=== PATIENT | male | born 1950 | race Caucasian/White ===

== ENCOUNTER 2019-11-01 09:38 | Emergency (ER) | payer OTHER ==
--- OUTSIDE RECORDS SUMMARY | 2019-11-01 10:05 | XMS REPORT | Continuity of Care Document ---
:1950 Author Organization [employer] Care Team Providers Name Role Phone [employer] Unavailable Un available Problems Problem Status Onset Classification Date Comments Sourc e Date Reported FOLLOW UP Active [facility] SPECIALIST 9 ABI FRANCHESCA Active [facility] 9 PARAPLEGIA, Active [facility] UNSPECIFIED Medications No Data Provided for This Section Allergies, Adverse Reactions, Alerts No Known Medication Allergies Immunizations No Data Provided for This Section Results No Data Provided for This Section Pathology Reports No Data Provided for This Section Diagnostic Reports No Data Provided for This Section Consultation Notes No Data Provided for This Section Discharge Summaries No Data Provided for This Section History and Physicals No Data Provided for This Section Vital Signs Vital Sign Value Date Comments Source Systolic (mm Hg) 94 10/20/2018 [facility] Diastolic (mm Hg) 65 10/20/2018 [facility] Weight 90.455 10/20/2018 [facility] Height 175.26 cm 09/07/2018 [facility] Encounters Location Location Encounter Encounter Reason Attending ADM DC Stat Source Details Type Number For Provider Date Date Visit [facility] Rec[facility]ring [id number] [facility] 09/07 10/07 [facility] Rec[facility]ring [id number] [facility] 10/20 11/19 M [facility] Procedures No Data Provided for This Section Assessment and Plan No Data Provided for This Section Plan of Care No Data Provided for This Section Social History Social History Date Source No data available for this 11/19/2018 [facility] section Family History No Data Provided for This Section Advance Directives No Data Provided for This Section Functional Status No Data Provided for This Section
[2019-11-01 10:34] LABS: Absolute Lymphocytes (CBC) 3.7 K/uL (0.7-4.9); Basophils % 0.3 % (0-1.3); Hematocrit 36.1 % (39.6-49.0); Lymphocytes % 35.2 % (15.3-44.8); RBC Red Blood Cell Count 3.84 M/uL (4.33-5.43)
[2019-11-01 10:38] LABS: Protime INR 0.97
--- NOTE | 2019-11-01 10:42 | RAD REPORT ---
EXAM DESCRIPTION: CT - Stone Protocol - 11/01/2019 10:30 am CLINICAL HISTORY: HEMATURIA COMPARISON: Abdomen Pelvis W/Wo Contrast dated 01/13/2018 TECHNIQUE: Axial 5 mm thick images were obtained without oral or IV contrast. The [id number] span s the entirety of the system including uppermost abdomen and lung bases. All CT scans are performed using dose optimization technique as appropriate and may include automated exposure control or mA/KV adjustment according to patient size. FINDINGS: Moderate severity dilatation of the pelvis and calices of each kidney noted. There is mode rate severity hydroureter. Ureters are quite tortuous. Dilatation extends down to each UVJ. There is no obstructing calculus. Hemorrhagic byproducts are seen within the lumen of the urinary bladder. The re is significant wall thickening along the posterior bladder base and left side of the bladder wall. No bladder calculus. Several phleboliths are seen along the pelvic floor. No suspicious renal masses . Isodense masses and pyelonephritis are not excluded on a stone protocol CT scan. Small bilateral ad renal masses are present stable from 2018. These have fat attenuation values consistent with incident al adenoma. Imaged portions of the liver, spleen and pancreas show no suspicious findings on non-contrast imaging . No gallbladder or biliary tree abnormality identified. No suspicious bowel findings. No hernia or bulky lymphadenopathy. No free air, free fluid or inflammatory stranding. Disc and bony degenerative changes are present. Hip joint degenerative changes are seen. IMPRESSION: Significant urinary bladder wall thickening present along the left lateral and posterior base. Bladder wall mass or thickening involves each UVJ. Patient has moderate severity hydronephrosis of ea ch collecting system. Hyperdense material within the lumen of the bladder indicates ongoing bleeding. Isodense masses and pyelonephritis are not excluded on stone protocol technique.
[2019-11-01 10:55] LABS: Albumin 3.3 g/dL (3.4-5.0); Bilirubin Direct 0.1 mg/dL (0-0.2); Bilirubin Total 0.6 mg/dL (0.2-1.0); Potassium 3.6 mmol/L (3.5-5.1); Protein, Total 6.9 g/dL (6.4-8.2)
[2019-11-01 11:25] LABS: Urine Appearance CLOUDY; Urine Blood 3+ (NEG); Urine Color RED; Urine Glucose NEGATIVE (NEG); Urine Protein 3+ (NEG); Urine Specific Gravity 1.015 (1.005-1.030); Urine Urobilinogen 0.2 mg/dL (0.2-1.0)
[2019-11-01 11:51] LABS: Urine Bilirubin NEGATIVE (NEG)
[2019-11-01 12:00] LABS: Urine Bacteria <20 /HPF (NONE SEEN); Urine Culture Reflex Order NOT NEEDED; Urine RBC TNTC /HPF (NONE SEEN)
--- NOTE | 2019-11-01 13:57 | EDPHYS ---
Physician Documentation [facility] Name: Mary Bullock Age: 69 yrs Sex: Male : 1950 Arrival Date: 11/01/2019 Time: 09:40 Bed 5 Private MD: Franky Peralta F ED Physician Sander Page HPI: 10/31 10:06 This 69 yrs old Male presents to ER via Unassigned with complaints of Blood rn In Urine. 10:06 The patient presents with urinary symptoms, hematuria. Onset: The symptoms/episode rn began/occurred this morning. Modifying factors: The symptoms are alleviated by nothing, the symptoms are aggravated by urinating. Severity of symptoms: At their worst the symptoms were mild, in the emergency department the symptoms are unchanged. The patient has not experienced similar symptoms in the past. Reports woke up today to use bathroom, urinating blood, able to urinate, no fever, + mild suprapubic pressure, no trauma, never happened before. . Historical: - Allergies: 09:50 PENICILLINS; aa5 - Home Meds: 09:50 propranolol 40 mg oral tab [Active]; hydrochlorothiazide 12.5 mg Oral cap [Active]; aa5 lisinopril 20 mg Oral tab [Active]; finasteride 5 mg oral tab 1 tab [Active]; tamsulosin 0.4 mg oral cp24 [Active]; oxybutynin chloride 10 mg oral tr24 [Active]; - PMHx: 09:50 Hypertension; Overactive bladder; Paraplegic; aa5 - Immunization history:: Adult Immunizations unknown. - Social history:: Smoking status: Patient reports the use of cigarette tobacco products, cigars. - Family history:: not pertinent. - Hospitalizations: : No recent hospitalization is reported. ROS: 10:06 Constitutional: Negative for fever, chills, and weight loss, Eyes: Negative for injury, rn pain, redness, and discharge, Neck: Negative for injury, pain, and swelling, Cardiovascular: Negative for chest pain, palpitations, and edema, Respiratory: Negative for shortness of breath, cough, wheezing, and pleuritic chest pain, Abdomen/GI: Negative for nausea, vomiting, diarrhea, and constipation, MS/Extremity: Negative for injury and deformity, Skin: Negative for injury, rash, and discoloration, Neuro: Negative for headache, weakness, numbness, tingling, and seizure. Exam: 10:06 Constitutional: This is a well developed, well nourished patient who is awake, alert, rn and in no acute distress. Head/Face: Normocephalic, atraumatic. Cardiovascular: Regular rate and rhythm. No pulse deficits. Respiratory: No increased work of breathing, no retractions or nasal flaring. Abdomen/GI: Soft, mild suprapubic tenderness, no masses or swelling. Skin: Warm, dry MS/ Extremity: Pulses equal, no cyanosis. Neuro: Awake and alert, GCS 15, oriented to person, place, time, and situation. Vital Signs: 09:50 BP 181 / 69; Pulse 65; Resp 18 S; Temp 98.6(O); Pulse Ox 100% on R/A; aa5 10:55 BP 165 / 116; Pulse 63; Resp 17; Pulse Ox 100% ; bp 12:00 BP 182 / 91; Pulse 62; Resp 18; Pulse Ox 99% ; bp 13:30 BP 164 / 83; Pulse 68; Resp 17; Pulse Ox 100% ; bp 15:00 BP 161 / 82; Pulse 61; Resp 17; Temp 98.5; Pulse Ox 98% ; bp 16:00 BP 162 / 67; Pulse 64; Resp 17; Temp 98.5; Pulse Ox 99% ; bp 17:58 BP 160 / 83; Pulse 62; Resp 16; Temp 98.5; Pulse Ox 98% ; bp MDM: 09:52 Patient medically screened. rn 10:54 Differential diagnosis: UTI, urinary retention, urethritis, bladder cancer, kidney rn stone, kidney cancer. Data reviewed: vital signs, nurses notes, lab test result(s), radiologic studies. ED course: Bladder scanner for post-void residual performed due to patient only able to produce a few drops of urine and discomfort, showed > 400cc urine in bladder. Doyle placed, + gross hematuria, will irrigate and see response.. 12:35 ED course: Gross hematuria with doyle placement, awaiting irrigation to be completed rn for reassessment. . 13:55 Counseling: I had a detailed discussion with the patient and/or guardian regarding: the rn historical points, exam findings, and any diagnostic results supporting the discharge/admit diagnosis, lab results, radiology results, the need to transfer to another facility. ED course: Hematuria did not clear with irrigation, stable vitals, no urology here, will have to transfer, most likely bladder cancer. . 10/31 09:58 Order name: Basic Metabolic Panel; Complete Time: 11:23 10/31 09:58 Order name: CBC with Diff; Complete Time: 10:45 10/31 09:58 Order name: Hepatic Function; Complete Time: 11:23 rn 10/31 09:58 Order name: Lipase; Complete Time: 11:23 rn 10/31 09:59 Order name: Urine Culture rn 10/31 09:58 Order name: IV Saline Lock; Complete Time: 10:27 rn 10/31 09:59 Order name: Labs collected and sent; Complete Time: 10:27 10/31 09:59 Order name: CT Stone Protocol; Complete Time: 10:45 10/31 09:59 Order name: Protime (+inr); Complete Time: 10:45 10/31 09:59 Order name: Ptt, Activated; Complete Time: 10:45 10/31 11:16 Order name: Urinalysis W/Microscopic; Complete Time: 12:29 [facility] 10/31 10:46 Order name: Doyle-Hematuria; Complete Time: 10:52 rn Administered Medications: No medications were administered Disposition: 11/01/19 13:[address] [facility]. Diagnosis are Hematuria, unspecified, Retention of urine, unspecified, Acute kidney failure. - Reason for transfer: Higher level of care. - Accepting physician is Dr.. - Condition is Stable. - Problem is new. - Symptoms are unchanged. Signatures: Dispatcher [employer] EDMS Sander Page MD MD rn Calderon, Audri, RN RN aa5 Brayan Dexter RN RN bp Corrections: (The following items were deleted from the chart) 10:54 09:59 Urine Dipstick-Ancillary ordered. rn bp 11:16 09:59 UA MICROSCOPIC+U.LAB.BRZ ordered. EDOH EDMS 11:16 10:54 URINALYSIS+U.LAB.BRZ ordered. EDOH EDMS 18:00 13:56 11/01/2019 13:[address] [facility]. bp Diagnosis is Hematuria, unspecified; Retention of urine, unspecified; Acute kidney failure. Reason for transfer: Higher level of care. Accepting physician is . Condition is Stable. Problem is new. Symptoms are unchanged. rn
--- NOTE | 2019-11-01 13:57 | ER ---
Nurse's Notes [facility] Name: Mary Bullock Age: 69 yrs Sex: Male : 1950 Arrival Date: 11/01/2019 Time: 09:40 Bed 5 Private MD: Franky Peralta F Diagnosis: Hematuria, unspecified;Retention of urine, unspecified;Acute kidney failure Presentation: 10/31 09:50 Chief complaint: Patient states: hematuria and pain with urination that began today aa5 around 0300. Pt denies back pain, denies abd pain. 09:50 Coronavirus screen: Client denies travel out of the [place] in the last 14 days. At this aa5 time, the client does not indicate any symptoms associated with coronavirus-19. Ebola Screen: Patient negative for fever greater than or equal to 101.5 degrees Fahrenheit, and additional compatible Ebola Virus Disease symptoms. Initial Sepsis Screen: Does the patient meet any 2 criteria? No. Patient's initial sepsis screen is negative. Does the patient have a suspected source of infection? No. Patient's initial sepsis screen is negative. Risk Assessment: Do you want to hurt yourself or someone else? Patient reports no desire to harm self or others. Onset of symptoms was November 01, 2019. 09:50 Acuity: FERNANDA 3 aa5 09:50 Method Of Arrival: Ambulatory aa5 Triage Assessment: 09:50 General: Appears in no apparent distress. uncomfortable, Behavior is cooperative, bp appropriate for age, anxious. 09:50 Pain: Denies pain. EENT: No deficits noted. Neuro: No deficits noted. Cardiovascular: bp No deficits noted. Respiratory: No deficits noted. GI: No signs and/or symptoms were reported involving the gastrointestinal system. : Reports HEMATURIA. Derm: No deficits noted. Musculoskeletal: No deficits noted. Historical: - Allergies: 09:50 PENICILLINS; aa5 - Home Meds: 09:50 propranolol 40 mg oral tab [Active]; hydrochlorothiazide 12.5 mg Oral cap [Active]; aa5 lisinopril 20 mg Oral tab [Active]; finasteride 5 mg oral tab 1 tab [Active]; tamsulosin 0.4 mg oral cp24 [Active]; oxybutynin chloride 10 mg oral tr24 [Active]; - PMHx: 09:50 Hypertension; Overactive bladder; Paraplegic; aa5 - Immunization history:: Adult Immunizations unknown. - Social history:: Smoking status: Patient reports the use of cigarette tobacco products, cigars. - Family history:: not pertinent. - Hospitalizations: : No recent hospitalization is reported. Screenin:00 Abuse screen: Denies threats or abuse. Denies injuries from another. Nutritional bp screening: No deficits noted. Tuberculosis screening: No symptoms or risk factors identified. Fall Risk None identified. Assessment: 09:50 General: SEE TRIAGE NOTE. bp 10:22 Reassessment: PT TO CT. bp 10:45 : 3-way catheter in place to gravity drainage Urine is shirlene blood. bp 12:00 Reassessment: BLADDER IRRIGATED WITH 500 CC NS, REMAINS STRONGLY BLOOD TINGED. bp 14:00 Reassessment: TRANSFER INITIATED. bp 16:08 Reassessment: REPORT TO JOSSE BRODY AT [facility] FOR RM [id number]. TRANSPORT PENDING. bp 17:56 Reassessment: EMS AT B/S FOR TRANSPORT. bp Vital Signs: 09:50 BP 181 / 69; Pulse 65; Resp 18 S; Temp 98.6(O); Pulse Ox 100% on R/A; aa5 10:55 BP 165 / 116; Pulse 63; Resp 17; Pulse Ox 100% ; bp 12:00 BP 182 / 91; Pulse 62; Resp 18; Pulse Ox 99% ; bp 13:30 BP 164 / 83; Pulse 68; Resp 17; Pulse Ox 100% ; bp 15:00 BP 161 / 82; Pulse 61; Resp 17; Temp 98.5; Pulse Ox 98% ; bp 16:00 BP 162 / 67; Pulse 64; Resp 17; Temp 98.5; Pulse Ox 99% ; bp 17:58 BP 160 / 83; Pulse 62; Resp 16; Temp 98.5; Pulse Ox 98% ; bp ED Course: 09:40 Patient arrived in ED. ag5 09:40 Franky Peralta MD is Private Physician. ag5 09:50 Arm band placed on Patient placed in an exam room, on a stretcher. aa5 09:51 Brayan Dexter, RONN is Primary Nurse. bp 09:52 Sander Page MD is Attending Physician. rn 10:00 Patient has correct armband on for positive identification. Bed in low position. Call bp light in reach. Side rails up X2. 10:21 Triage completed. 5 10:26 Protime (+inr) Sent. [facility] 10:27 Ptt, Activated Sent. [facility] 10:27 Basic Metabolic Panel Sent. 5 10:27 CBC with Diff Sent. [facility] 10:27 Hepatic Function Sent. [facility] 10:27 Lipase Sent. [facility] 10:27 Initial lab(s) drawn, by ok, sent to lab. Inserted saline lock: 20 gauge in right [facility] antecubital area, using aseptic technique. Blood collected. 10:28 Placed in gown. Warm blanket given. Pulse ox on. NIBP on. [facility] 10:30 CT Stone Protocol In Process Unspecified. EDMS 10:45 3-way catheter inserted, using sterile technique, 22 Fr. 24 Fr. Specimen obtained. bp 11:16 Urine Culture Sent. [facility] 11:59 pt daughter--[phone]. bd 16:00 No provider procedures requiring assistance completed. Patient transferred, IV remains bp in place. Administered Medications: No medications were administered Output: 16:52 Urine: 1300ml (Lozada); Total: 1300ml. bp Outcome: 13:56 ER care complete, transfer ordered by . rn 16:17 Transferred by ground EMS to [facility], Transfer form completed. bp 16:17 Condition: stable 16:17 Instructed on the need for transfer. 18:00 Patient left the ED. bp Signatures: Dispatcher [employer] EDMS Davida Sterling Roman, MD MD rn Calderon, Audri, RN RN 5 Rowan Koenig [facility] Brayan Dexter RN RN bp Eduarda Kim 5 Corrections: (The following items were deleted from the chart) 16:14 16:08 Reassessment: REPORT TO AT [facility] FOR RM 1662. TRANSPORT PENDING bp bp 17:59 16:17 Transferred by ground EMS to [facility], to [facility], bp 17:59 16:17 Discharge instructions given to Instructed on the need for transfer, bp bp
[2019-11-06 14:11] VITALS: TEMP 98.5
[2019-11-06 14:14] VITALS: BP 160/83; O2SAT 98
== END 2019-11-01 18:00 | disposition short-term general hospital (02) ==
LOC: ER 09:38
DX: R33.9 Retention of urine, unspecified (principal); N17.9 Acute kidney failure, unspecified; F17.290 Nicotine dependence, other tobacco product, uncomplicated; I10 Essential (primary) hypertension; Z88.0 Allergy status to penicillin
CPT/HCPCS: 36415; 74176; 76377; 80048; 80076; 81001; 83690; 85025; 85610; 85730; 87086; 87088; 99285

== ENCOUNTER 2021-06-15 01:29 | Emergency (ER) | payer OTHER ==
[2021-06-15 02:31] LABS: Absolute Lymphocytes (CBC) 1.7 K/uL (0.7-4.9); Hematocrit 35.1 % (39.6-49.0); Lymphocytes % 12.1 % (15.3-44.8); RBC Red Blood Cell Count 3.74 M/uL (4.33-5.43)
[2021-06-15 02:50] LABS: Bilirubin Total 0.2 mg/dL (0.2-1.0); Potassium 4.8 mmol/L (3.5-5.1); Protein, Total 7.6 g/dL (6.4-8.2)
[2021-06-15] MEDS ORDERED: MORPHINE 4 MG/ML SYR ONE (03:09)
--- OUTSIDE RECORDS SUMMARY | 2021-06-15 03:11 | XMS REPORT | Clinical Summary ---
:1950 Author Organization [facility] MD [place] [facility] Address [address] [place] [address] Care Team Providers Name Role Phone Reece Joseph MD Unavailable Franky Peralta MD Unavailable MD Jaelyn Primary Care Provider Allergies Active Allergy Reactions Severity Noted Date Comments Penicillins Anaphylaxis High 12/04/2019 Previously tolhoang rated ceftriaxone and meropenem. Medications Medication Sig Dispensed Refills Start Date End Date Status tamsulosin (FLOMAX) Take 0.4 mg by 0 09/06/2019 Active 0.4 mg 24 hr capsule mouth daily. Urinary flow multivitamin capsule Take 1 capsule by 0 Active mouth daily. Vitamin Supplement. polyethylene glycol Take 17 g by mouth 0 04/12/2020 Active (MIRALAX) 17 g daily. packetIndications: Constipation. Personal history of Available over the malignant neoplasm of counter. Hold bladder for diarrhea/loose stools. Additional Information Patient not taking. Reason: Other (patient using align instead.), Reported on 04/28/2021 lidocaine-prilocaine (EMLA) APPLY TO PORT-A-CATH 30 g 0 0 05/04/2020 Active 2.5-2.5% creamIndications: AREA 30 TO 45 MINUTES Encounter for adjustment and PRIOR TO PORT ACCESS management of vascular access DIRECTED (TOPICAL device ANESTHETIC). Bifidobacterium infantis Take 1 capsule by 0 Active (Align) 4 mg cap mouth daily. propranoloL (INDERAL) 60 mg TAKE 1 TABLET BY MOUTH 180 tablet 1 03/27/2021 Active tabletIndications: TWICE A DAY EVERY DAY Poliomyelomalacia TO PREVENT TREMORS HOLD IF SYSTOLIC BP LESS THAAN 110 acetaminophen (TYLENOL) 500 mg Take 500 mg by mouth. 0 Active tablet Takes two tablets every 6 hours as needed for pain. gabapentin (NEURONTIN) 300 mg Take 1 capsule (300 60 capsule 3 05/05/2021 Active capsuleIndications: mg) by mouth twice Neuropathy, not otherwise daily. specified mirtazapine (REMERON) 15 mg Take 1 tablet (15 mg) 30 tablet 2 05/05/2021 Active tabletIndications: Insomnia by mouth at bedtime. due to medical condition metoclopramide (Reglan) 5 mg Take 1 tablet (5 mg) 90 tablet 0 05/05/2021 Active tabletIndications: Early by mouth 3 (three) satiety times a day before meals. Additional Information Patient taking differently: 5 mg oral 3 times daily before meals, Taking differently only once a day., Reason: Other (patient taking differently.), Reported on 06/10/2021 senna (senna) 8.6 mg Take 2 tablets by 0 Active tablet mouth twice daily. HYDROcodone-acetamino Take 1 tablet by 60 tablet 0 06/12/ Active phen (NORCO) 10 mouth every 6 (six) 2021 mg-325 mg per hours as needed for tabletIndications: moderate pain or Cancer associated severe pain. pain, Neuropathy, not otherwise specified acetaminophen Take 325 mg by mouth 0 08/27 / Discontinued (Stop (TYLENOL) 325 mg every 6 (six) hours Taking at tablet as needed for mild D ischarge) pain. Take temperature PRIOR to each dose. Maximum daily dose = 4 grams/24 hours. melatonin 10 mg TbER Take 10 mg by mouth 0 07/16/ Discontinued as needed. Insomnia 2020 (Therapy / Sleep. completed) propranolol (INDERAL) Take 1 tablet (60 mg) 90 tablet 2 02/06/ 08/07/ Discontinued (Stop 60 mg by mouth 3 (three) 2019 2020 T aking at tabletIndications: times a day. To Discharge) Hypertension, Tremor prevent tremors. Hold for systolic blood pressure less than 110 or heart rate less than 55 magic mouthwash Swish and swallow 10 480 mL 0 02/14/ / Discontinued (sucralfate/maalox/di mL 4 (four) times a 2019 2020 phenhydramine) day as needed for (AMB-CMPD)Indications mouth pain. : Ulcerative oral mucositis due to antineoplastic therapy senna-docusate Take 1 tablet by 0 04/12/ 07/23/ Discontinued (SENOKOT-S) 8.6 mg-50 mouth 2 (two) times a 2020 2020 (Reorder) mg tabletIndications: day as needed for Personal history of constipation. malignant neoplasm of Available over the bladder counter. Hold for diarrhea/loose stools. potassium phosphate, Take 1 tablet (500 10 tablet 0 04/12/ 08/07/ Discontinued (Stop monobasic, (K-Phos mg) by mouth twice 2020 Taking at Original) 500 mg daily. Potassium / Discharge) tabletIndications: Phosphorus Personal history of Supplement. Take for malignant neoplasm of the next 5 days. bladder gabapentin TAKE 1 CAPSULE BY 30 capsule 1 04/30/ 06/18/ Discontinued (NEURONTIN) 300 mg MOUTH AT BEDTIME 2020 2020 (Reorder) capsuleIndications: Neuropathy, not otherwise specified gabapentin Take 1 capsule (300 60 capsule 2 06/18/ 07/23/ Discontinued (NEURONTIN) 300 mg mg) by mouth twice 2020 (Reorder) capsuleIndications: daily. Neuropathy, not otherwise specified gabapentin Take 1 capsule (300 90 capsule 2 01/06/ Discontinued (NEURONTIN) 300 mg mg) by mouth 3 2020 2020 (Reorder) capsuleIndications: (three) times a day. Neuropathy, not otherwise specified HYDROcodone-acetamino Take 1 tablet by 75 tablet 0 07/23/ 0 09/17/ Discontinued phen ([place]) 5 mg-325 mouth every 6 (six) 2020 2020 mg per hours as needed for tabletIndications: moderate pain or Neoplasm related pain severe pain. (acute) (chronic) senna-docusate Take 1 tablet by 0 07/23/ 07/23/ Discontinued (SENOKOT-S) 8.6 mg-50 mouth 2 (two) times a 2020 2020 mg tabletIndications: day as needed for Personal history of constipation. malignant neoplasm of Available over the bladder counter. Hold for diarrhea/loose stools. mirtazapine (REMERON) Take 1 tablet (7.5 30 tablet 0 07/23/ 06/30/ Discontinued 7.5 mg mg) by mouth at 2020 2020 (Reo rder) tabletIndications: bedtime. Insomnia due to medical condition metoclopramide Take 1 tablet (10 mg) 120 tablet 0 07/23/ / Discontinued (REGLAN) 10 mg by mouth 4 (four) 2020 2020 tabletIndications: times a day before Anorexia meals and nightly. senna-docusate Take 2 tablets by 120 tablet 1 08/30/ Discontinued (SENOKOT-S) 8.6 mg-50 mouth twice daily. 2020 2020 (Therapy mg tabletIndications: Available over the completed) Personal history of counter. Hold for malignant neoplasm of diarrhea/loose bladder stools. propranoloL (INDERAL) TAKE 1 TABLET BY 270 tablet 1 08/27/ Discontinued (Stop 60 mg MOUTH THREE TIMES A 2020 2020 Taking at tabletIndications: DAY TO PREVENT Discharge) Hypertension, Tremor TREMORS HOLD FOR SYTOLIC BLOOD PRESSURE LESS THAN 110 OR HEART REAT LESS THAN 55 levoFLOXacin Take 1 tablet (500 5 tablet 0 08/27/ Discontinued (Stop (LEVAQUIN) 500 mg mg) by mouth daily. 2020 Taking at tabletIndications: Avoid administration Discharge) Fever with antacids, sucralfate, and medications containing iron, zinc, calcium or magnesium. propranoloL (INDERAL) Take 1 tablet (60 mg) 60 tablet 3 03/27/ Discontinued 60 mg by mouth twice daily. 2020 2021 tabletIndications: To prevent tremors. essential tremor Hold for systolic blood pressure less than 110 and/or heart rate less than 60. metoclopramide TAKE 1 TABLET (10 MG) 120 tablet 0 / Discontinued (REGLAN) 10 mg BY MOUTH 4 (FOUR) 2020 2020 (Therapy tabletIndications: TIMES A DAY BEFORE completed) Anorexia MEALS AND NIGHTLY. ciprofloxacin HCl Take 1 tablet (750 14 tablet 0 / Discontinued (CIPRO) 750 mg mg) by mouth twice 2020 2020 tabletIndications: daily. Stop date: Fever of unknown 09/03/20. origin (FUO) sulfamethoxazole-trim Take 2 tablets by 28 tablet 0 09/17/ Discontinued ethoprim (BACTRIM DS) mouth twice daily. 2020 2020 800 mg-160 mg per Stop date: 09/03/20. tabletIndications: Fever of unknown origin (FUO) lidocaine-vit E-aloe Apply 1 cm topically 85 g 0 08/30/ 12/05/ Discontinued vera-colg ([facility]enecare 3 (three) times a 2020 2020 with Aloe) 2 % day. gelIndications: Localized skin eruption due to drug taken internally sodium polystyrene Take 60 mL (15 g) by 60 mL 0 09/03/ 09/03/ sulf-sorbtl (SPS, mouth once for 1 2020 2020 with sorbitol,) 15-20 dose. 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 Insomnia due to medical condition triamcinolone Apply topically to 30 g 0 09/04/ 12/05/ Discontinued (KENALOG) ointment affected area(s) 3 2020 0.1%Indications: (three) times a day. Primary urothelial To apply over palms carcinoma of overlapping lesion of urinary organ OLANZapine (ZyPREXA) Take 1 tablet (5 mg) 30 tablet 0 12/05/ 01/04/ 5 mg by mouth nightly as 2020 2020 tabletIndications: needed for anxiety or Insomnia due to sleep for up to 30 medical condition, days. 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 2020 gabapentin Take 1 capsule (300 60 capsule 3 01/06/ 05/05/ Discontinued (NEURONTIN) 300 mg mg) by mouth twice 2020 20 (Reorder) capsuleIndications: daily. Neuropathy, not otherwise specified mirtazapine (REMERON) Take 1 tablet (7.5 30 tablet 3 01/06/ // Discontinued 7.5 mg mg) by mouth at 2020 2021 (Reo rder) tabletIndications: bedtime. Insomnia due to medical condition HYDROcodone-acetamino Take 1 tablet by 60 tablet 0 03/04/ 0 05/05/ Discontinued phen (NORCO) 5 mg-325 mouth every 6 (six) 2020 2021 mg per hours as needed for tabletIndications: moderate pain or Chronic pain due to severe pain. malignant neoplastic disease mirtazapine (REMERON) Take 1 tablet (15 mg) 30 tablet 2 03/10/ 05/05/ Discontinued 15 mg by mouth at bedtime. 2021 2021 (Reorder) tabletIndications: Insomnia due to medical condition HYDROcodone-acetamino Take 1 tablet by 120 tablet 0 05/05/ // Discontinued phen (NORCO) 10 mouth every 6 (six) 2021 2021 (Reorder) mg-325 mg per hours as needed for tabletIndications: moderate pain or Cancer associated severe pain. 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 12/19/2019 Encounter for antineoplastic chemo 12/19/2019 Anemia in neoplastic disease 12/19/2019 Paraplegia 12/05/2019 Personal history of malignant neoplasm of bladder 11/07 Essential hypertension 11/01/2019 Benign prostatic hyperplasia 11/01/2019 H/O: poliomyelitis 11/01/2019 Sleep apnea 03/08/1999 Poliomyelomalacia 1950 Resolved Problems Problem Noted Date Resolved Date Bacteremia 2020 06/18/2020 Sepsis 04/08/2020 06/18/2020 Encounters Date Type Specialty Care Team Description 06/10/2021 Infusion Infusion Services David, Leonor, Rafia P 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 (Primary Dx); Rivka, Secondary malig nant neoplasm of bone; Crystal Kim RN Personal histor y of malignant neoplasm of bladder 06/10/2021 Office Visit Genitourinary Alhalabi, Dante, Encounter f or examination prior to antineoplastic chemotherapy (Primary Dx); Oncology 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; Secondary malig nant neoplasm of bone 06/10/2021 Orders Only Genitourinary Quintin, Oncology CALISTA Aguilera 06/10/2021 Travel 06/07/2021 Hospital Encounter Radiology Leonor Hernandez NP Second chelsie malignant neoplasm of bone; Personal histor y of malignant neoplasm of bladder; 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 06/07/2021 Travel 06/06/2021 Ancillary Procedure Radiology Leonor Hernandez NP 06/06/2021 Ancillary Procedure Radiology Leonor Hernandez NP Pradeep banda malignant neoplasm of bone; Personal histor y of malignant neoplasm of bladder; 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 06/06/2021 Hospital Encounter Lab Leonor Hernandez NP Second chelsie malignant neoplasm of bone; Personal histor y of malignant neoplasm of bladder; 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 06/06/2021 Travel 05/27/2021 Infusion Infusion Services Leonor Hernandez, N P 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 (Primary Dx); Mary Lou Junior Secondary malig nant neoplasm of bone; Asiya Quiles, RN Personal histo ry of malignant neoplasm of bladder 05/27/2021 Telemedicine Genitourinary MaurodontaeDante witt, Overlapping lesion of bladder cancer (Primary Dx); Oncology 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 05/27/2021 Hospital Encounter Lab Leonor Hernandez NP 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 05/27/2021 Orders Only Genitourinary Quintin, Secondary sigrid gnant neoplasm of bone (Primary Dx); Oncology CALISTA Aguilera Personal his tory of malignant neoplasm of bladder 05/27/2021 Orders Only Genitourinary David Lilibeth Oncology K, [facility] 05/27/2021 Travel 05/15/2021 Orders Only Radiology Baylee Merida PA 05/13/2021 Infusion Infusion Services Leonor Hernandez, INFO ANALYST 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 ( Primary Dx) 05/13/2021 Office Visit Genitourinary Dante Christy, Secondary m alignant neoplasm of bone (Primary Dx); Oncology MD Personal histor y of malignant neoplasm of bladder; 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 05/13/2021 Hospital Encounter Lab Leonor Hernandez NP 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 05/13/2021 Travel 04/29/2021 Infusion Infusion Services Leonor Hernandez, Rafia P 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 (Primary Dx); [facility], [facility] Secondary mal ignant neoplasm of bone; Mariely, RN Personal histor y of malignant neoplasm of bladder 04/29/2021 Telemedicine Genitourinary Dante Christy, Bladder, NO S cancer Oncology MD (Primary Dx) 04/29/2021 Hospital Encounter Lab Leonor Hernandez NP 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 04/29/2021 Travel 04/15/2021 Infusion Infusion Services Leonor Hernandez NP 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 ( Primary Dx) 04/15/2021 Office Visit Genitourinary Dante Christy, Primary uro thelial Oncology MD carcinoma of overlapping les ion of urinary organ ( Primary Dx) 04/15/2021 Hospital Encounter Lab Leonor Hernandez NP 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 04/15/2021 Orders Only Genitourinary Dante Christy, Oncology MD 04/15/2021 Orders Only Genitourinary Irvin Leyva, [facility] Oncology 04/15/2021 Orders Only Genitourinary Tarah Cunningham, Oncology PharmD 04/15/2021 Travel 04/04/2021 Ancillary Procedure Radiology Dante Christy, Prima ry urothelial carcinoma of overlapping lesion of urinary organ; Hip pain <Unspe cified side> 04/04/2021 Travel 04/01/2021 Infusion Infusion Services Leonor Hernandez, N P 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 (Primary Dx); Dewey, Nemo Secondary sigrid gnant neoplasm of bone; M, RN Personal histor y of malignant neoplasm of bladder 04/01/2021 Office Visit Genitourinary Dante Christy, Primary uro thelial carcinoma of overlapping lesion of urinary organ (Primary Dx); Oncology MD Hip pain <Unspe cified side>; Secondary malig nant neoplasm of bone; Personal histor y of malignant neoplasm of bladder 04/01/2021 Hospital Encounter Lab Leonor Hernandez NP 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 04/01/2021 Travel 03/31/2021 Hospital Encounter Radiology Leonor Hernadnez NP 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 03/31/2021 Travel 03/28/2021 Ancillary Procedure Radiology Leonor Hernandez NP 03/28/2021 Ancillary Procedure Radiology Leonor Hernandez NP Prima ry urothelial carcinoma of overlapping les ion of urinary organ 03/28/2021 Travel 03/27/2021 Refill Genitourinary Michael Chowdhury, Poliomyelomal acia Oncology MD 03/21/2021 Hospital Encounter Radiology Leonor Hernandez NP Primary urothelial Eliezer, Zeus, carcinoma of MD overlapping les ion of urinary organ 03/21/2021 Travel 03/18/2021 Infusion Infusion Services Leonor Hernandez N P Primary urothelial Comple, Dwarf, carcinoma of RN overlapping les ion of urinary organ ( Primary Dx) 03/18/2021 Telemedicine Genitourinary Dante Christy, Secondary m alignant neoplasm of bone (Primary Dx); Oncology MD Encounter for e xamination prior to antineoplastic chemotherapy; 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 03/18/2021 Travel 03/18/2021 Orders Only Genitourinary Leonor Hernandez NP Oncology 03/17/2021 Hospital Encounter Lab Leonor Hernandez NP 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 03/13/2021 Orders Only Radiology Lonnie Wing PA 03/11/2021 Orders Only Radiology Savanna León NP 03/10/2021 Hospital Encounter Radiation Oncology Ant Sarmiento P rimary urothelial MD carcinoma of overlapping les ion of urinary organ 03/04/2021 Ancillary Procedure Radiology Dante Christy Prima ry urothelial carcinoma of overlapping les ion of urinary organ 03/04/2021 Ancillary Procedure Radiology Dante Christy Prima ry urothelial carcinoma of overlapping les ion of urinary organ 03/04/2021 Infusion Infusion Services Dante Christy, Seconda ry malignant neoplasm of bone (Primary Dx); MD Personal history of malignant neoplasm o f bladder; Bedvitora, 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 RONN Palomo 03/04/2021 Office Visit Genitourinary Dante Christy, Primary uro thelial carcinoma of overlapping lesion of urinary organ (Primary Dx); Oncology MD Chronic pain du e to malignant neoplastic disease; Secondary malig nant neoplasm of bone 03/04/2021 Hospital Encounter Lab Leonor Hernandez NP 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 03/04/2021 Travel 02/21/2021 Orders Only Radiology Altagracia Fernandez PA 02/19/2021 Ancillary Procedure Radiology Dante Christy Prima ry urothelial carcinoma of overlapping les ion of urinary organ 02/19/2021 Ancillary Procedure Radiology Dante Christy Prima ry urothelial carcinoma of overlapping les ion of urinary organ 02/19/2021 Travel 02/18/2021 Infusion Infusion Services Leonor Hernandez N P Primary urothelial Yniesta, carcinoma of Abby Baldemar RN overlapping le avelino of urinary organ ( Primary Dx) 02/18/2021 Telemedicine Genitourinary Dante Christy, Primary uro thelial carcinoma of overlapping lesion of urinary organ (Primary Dx); Oncology MD Encounter for e xamination prior to antineoplastic chemotherapy; Secondary malig nant neoplasm of bone 02/18/2021 Travel 02/18/2021 Orders Only Genitourinary Leonor Hernandez NP Primary uro thelial Oncology carcinoma of overlapping les ion of urinary organ ( Primary Dx) 02/18/2021 Orders Only Genitourinary Dante Christy, Oncology MD 02/17/2021 Hospital Encounter Lab Leonor Hernandez NP 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 02/17/2021 Orders Only Genitourinary Leonor Hernandez NP Primary uro thelial Oncology carcinoma of overlapping les ion of urinary organ ( Primary Dx) 02/04/2021 Infusion Infusion Services Leonor Hernandez, N P 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 (Primary Dx); Igor Mcmullen Y, Secondary ma lignant neoplasm of bone; RN Personal histor y of malignant neoplasm of bladder 02/04/2021 Office Visit Genitourinary Dante Christy, Primary uro thelial carcinoma of overlapping lesion of urinary organ (Primary Dx); Oncology MD Secondary [place] leont neoplasm of bone; Personal histor y of malignant neoplasm of bladder; Encounter for e xamination prior to antineoplastic chemotherapy 02/04/2021 Travel 02/03/2021 Hospital Encounter Radiology Primary u rothelial carcinoma of overlapping les ion of urinary organ 02/03/2021 Ancillary Procedure Radiology 02/03/2021 Hospital Encounter Lab Primary u rothelial carcinoma of overlapping les ion of urinary organ 02/03/2021 Ancillary Procedure Radiology 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 02/03/2021 Travel 01/21/2021 Infusion Infusion Services Leonor Hernandez N P Primary urothelial Argana, Chequi carcinoma of Opal Calica, RN overlapping lesion of urinary organ ( Primary Dx) 01/21/2021 Telemedicine Genitourinary Dante Christy, Primary uro thelial Oncology carcinoma of overlapping les ion of urinary organ ( Primary Dx) 01/21/2021 Hospital Encounter Lab Leonor Hernandez NP 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 01/21/2021 Orders Only Genitourinary Dante Christy, Oncology MD 01/21/2021 Travel 01/07/2021 Hospital Encounter Infusion Services Leonor Hernandez NP Primary urothelial Dev Villasenor S, carcinoma of RN overlapping les ion of urinary organ ( Primary Dx) 01/07/2021 Office Visit Genitourinary Dante Christy, Primary uro thelial Oncology carcinoma of overlapping les ion of urinary organ 01/07/2021 Hospital Encounter Lab Leonor Hernandez NP 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 01/07/2021 Travel 12/24/2020 Infusion Infusion Services Jose Mendez Primary urothelial J III, RN carcinoma of overlapping les ion of urinary organ ( Primary Dx) 12/24/2020 Telemedicine Genitourinary Leonor Hernandez NP Primary uro thelial Oncology carcinoma of overlapping les ion of urinary organ ( Primary Dx) 12/24/2020 Hospital Encounter Lab Primary u rothelial carcinoma of overlapping les ion of urinary organ 12/24/2020 Travel 12/11/2020 Orders Only Genitourinary Leonor Hernandez NP Primary uro thelial Oncology carcinoma of overlapping les ion of urinary organ ( Primary Dx) 12/10/2020 Infusion Infusion Services Leonor Hernandez, N P Primary urothelial Junior, Mary Lou carcinoma of Asiya R, RN overlapping le avelino of urinary organ ( Primary Dx) 12/10/2020 Office Visit Genitourinary Dante Christy, Primary uro thelial Oncology carcinoma of overlapping les ion of urinary organ ( Primary Dx) 12/10/2020 Hospital Encounter Lab Leonor Hernandez NP 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 12/10/2020 Travel 12/09/2020 Orders Only Genitourinary Leonor Hernandez NP Primary uro thelial Oncology carcinoma of overlapping les ion of urinary organ ( Primary Dx) 12/09/2020 Telephone Nephrology Mario, Ameya Anthony, RN 11/27/2020 Hospital Encounter Radiology Asuncion Cunningham, Fever of unknown MD origin (FUO) Doyle Oconnell MD 11/27/2020 Travel 11/26/2020 Telephone Genitourinary Dante Christy, Oncology 11/26/2020 Infusion Infusion Services Leonor Hernandez NP 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 ( Primary Dx) 11/26/2020 Hospital Encounter Lab Leonor Hernandez NP 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 11/26/2020 Orders Only Genitourinary Francisca Mccullough, Oncology [facility] 11/26/2020 Travel 11/25/2020 Orders Only Radiology Ansley Rizvi, JONEL 11/12/2020 Hospital Encounter Infusion Services Leonor Hernandez NP Primary urothelial Cuco, Benji carcinoma of Maricarmento II, RN overlapping les ion of urinary organ ( Primary Dx) 11/12/2020 Office Visit Genitourinary Dante Christy, Primary uro thelial Oncology carcinoma of Leonor Hernandez NP overlapping lesion of urinary organ ( Primary Dx) 11/12/2020 Hospital Encounter Lab Leonor Hernandez NP 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 11/12/2020 Travel 11/08/2020 Ancillary Procedure Radiology Leonor Hernandez NP Prima ry urothelial carcinoma of overlapping les ion of urinary organ 11/08/2020 Ancillary Procedure Radiology Leonor Hernandez NP 11/08/2020 Ancillary Procedure Radiology Leonor Hernandez NP Prima ry urothelial carcinoma of overlapping les ion of urinary organ 11/08/2020 Travel 10/29/2020 Infusion Infusion Services Leonor Hernandez N P Primary urothelial Flip Tiffanie M, carcinoma of RN overlapping les ion of urinary organ ( Primary Dx) 10/29/2020 Telemedicine Genitourinary Dante Christy, Primary uro thelial Oncology carcinoma of overlapping les ion of urinary organ ( Primary Dx) 10/29/2020 Hospital Encounter Lab Leonor Hernandez NP 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 10/29/2020 Travel 10/22/2020 Documentation Infusion Services Garza, Mythu LDA cutov er 10/15/2020 Infusion Infusion Services Leonor Hernandez N P Primary urothelial Nikole, Louisse A, carcinoma of RN overlapping les ion of urinary organ ( Primary Dx) 10/15/2020 Office Visit Genitourinary Dante Christy, Primary uro thelial Oncology carcinoma of overlapping les ion of urinary organ ( Primary Dx) 10/15/2020 Hospital Encounter Lab Leonor Hernandez NP 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 10/15/2020 Orders Only Genitourinary Dante Christy, Oncology 10/15/2020 Travel 10/01/2020 Hospital Encounter Lab Leonor Hernandez NP 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 10/01/2020 Hospital Encounter Infusion Services Leonor Hernandez NP Primary urothelial Magcurt Avigel carcinoma of E, RN overlapping les ion of urinary organ ( Primary Dx) 10/01/2020 Office Visit Genitourinary Dante Christy, Hyperkalemi a (Primary Dx); Oncology MD 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 10/01/2020 Hospital Encounter Lab Leonor Hernandez NP 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 10/01/2020 Travel 09/17/2020 Infusion Infusion Services Leonor Hernandez, Rafia P Primary urothelial Duremdes, carcinoma of Christelle Alen overlapping les ion of Moreno, RN urinary organ ( Primary Dx) 09/17/2020 Office Visit Genitourinary Dante Christy, Primary uro thelial Oncology carcinoma of overlapping les ion of urinary organ ( Primary Dx) 09/17/2020 Hospital Encounter Lab Leonor Hernandez NP 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 09/17/2020 Travel 09/04/2020 Orders Only Genitourinary Leonor Hernandez NP Primary uro thelial Oncology carcinoma of overlapping les ion of urinary organ ( Primary Dx) 09/03/2020 Hospital Encounter Infusion Services Dante Christy, P rimary urothelial carcinoma of overlapping lesion of urinary organ (Primary Dx); MD Personal history of malignant neoplasm o f bladder Анна Etienne RN 09/03/2020 Office Visit Genitourinary Dante Christy, Primary uro thelial carcinoma of overlapping lesion of urinary organ (Primary Dx); Oncology MD Personal histor y of malignant neoplasm of bladder 09/03/2020 Hospital Encounter Lab Dante Christy Primar y urothelial MD carcinoma of overlapping les ion of urinary organ 09/03/2020 Travel 08/30/2020 Ancillary Procedure Radiology Dante Christy, Prima ry urothelial MD carcinoma of overlapping les ion of urinary organ 08/30/2020 Infusion Infusion Services Dante Christy, 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 (Primary Dx); Personal history of malignant neoplasm o f bladder Kenzie Brandon RN 08/30/2020 Office Visit Genitourinary Dante Christy, Primary uro thelial carcinoma of overlapping lesion of urinary organ (Primary Dx); Oncology MD Localized skin eruption due to drug taken internally; Personal histor y of malignant neoplasm of bladder 08/30/2020 Hospital Encounter Lab Dante Christy 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 08/30/2020 Orders Only Infectious Diseases Corinne Sparks, JONEL 08/30/2020 Travel 08/27/2020 Orders Only Genitourinary Leonor Hernandez NP Oncology 08/27/2020 Travel 08/22/2020 Travel 08/21/2020 Hospital Encounter Melanoma Sarcoma [place], Fever of unknown origin (FUO) (Primary Dx); - MD Panchito 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; 08/27/2020 Blaze Hull, Nephrostomy; Poliomyelomalacia Asuncion Cunningham MD 08/21/2020 Travel 08/19/2020 Hospital Encounter Radiology Crystal Aguilar PA Habibollahi, Peiman, MD 08/19/2020 Hospital Encounter Lab Crystal Aguilar PA 08/19/2020 Travel 08/16/2020 Orders Only Radiology Crystal Aguilar PA 08/13/2020 Telephone Genitourinary Dante Christy, Oncology MD 08/13/2020 Infusion Infusion Services Dante Christy, Primary urothelial MD carcinoma of Doyle, Delon, overlapping l esion of RN urinary organ ( Primary Dx) 08/13/2020 Hospital Encounter Lab Dante Christy 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 08/13/2020 Orders Only Radiology Ansley Rizvi PA 08/13/2020 Telephone Radiology Jenniffer Goldberg MA 08/13/2020 Orders Only Genitourinary Leonor Hernandez NP Oncology 08/13/2020 Travel 08/09/2020 Hospital Encounter Radiology Dante Christy Primar y urothelial carcinoma of Fany, overlapping les ion of MD Omaira urinary organ 08/09/2020 Travel 08/08/2020 Telephone Genitourinary Leonor Hernandez NP Oncology 08/08/2020 Telephone Walter, Discharge Call MANJIT Cochran 08/06/2020 Travel 08/05/2020 Hospital Encounter /GI Med Zahraa Mckeon, 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 (Primary Dx); - Fever; 08/07/2020 Asuncion Cunningham, Pressure ulcer of sacral region; Nephrostomy status; Michael Chowdhury, Post poliomyel itis syndrome; Moderate protein-calorie malnutrition; Dante Christy, Neuropathy; Essential hyper tension; Benign prostati c hyperplasia; Sleep apnea; Secondary malig nant neoplasm of bone; Infection due t o Human parainfluenza virus 3; Bladder cancer; Poliomyelomalac ia 08/05/2020 Travel 08/04/2020 Refill Genitourinary Dante Christy, Hypertensio n; Oncology MD Rodriguez 07/30/2020 Infusion Infusion Services Leonor Hernandez N P Primary urothelial Doyle, Delon, carcinoma of RN overlapping les ion of urinary organ ( Primary Dx) 07/30/2020 Office Visit Genitourinary Dante Christy, Primary uro thelial carcinoma of overlapping lesion of urinary organ (Primary Dx); Oncology MD Encounter for e xamination prior to antineoplastic chemotherapy; Secondary malig nant neoplasm of bone 07/30/2020 Orders Only Genitourinary Leonor Hernandez NP Oncology 07/30/2020 Travel 07/29/2020 Ancillary Procedure Radiology Leonor Hernandez NP Prima ry urothelial carcinoma of overlapping les ion of urinary organ 07/29/2020 Ancillary Procedure Radiology Leonor Hernandez NP 07/29/2020 Hospital Encounter Lab Leonor Hernandez NP 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 07/29/2020 Ancillary Procedure Radiology Leonor Hernandez NP Prima ry urothelial carcinoma of overlapping les ion of urinary organ 07/29/2020 Travel 07/16/2020 Infusion Infusion Services Leonor Hernandez N P Primary urothelial Argana, Chequi carcinoma of Opal Calica, RN overlapping lesion of urinary organ ( Primary Dx) 07/16/2020 Office Visit Genitourinary Dante Christy, Primary uro thelial Oncology carcinoma of overlapping les ion of urinary organ 07/16/2020 Hospital Encounter Lab Leonor Hernandez NP 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 07/16/2020 Travel 07/08/2020 Anesthesia Event Radiology Marbin Betancourt RN 07/08/2020 Hospital Encounter Radiology Dante Christy, 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 (Primary Dx); Personal history of malignant neoplasm o f bladder Zeus Martins MD 07/08/2020 Travel 07/05/2020 Telephone Radiology Funmilayo Gong MA 07/02/2020 Infusion Infusion Services Leonor Hernandez NP 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 ( Primary Dx) 07/02/2020 Office Visit Genitourinary Dante Christy, Primary uro thelial Oncology carcinoma of overlapping les ion of urinary organ 07/02/2020 Hospital Encounter Lab Leonor Hernandez NP 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 07/02/2020 Travel 06/18/2020 Hospital Encounter Radiology Dante Christy, 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 06/18/2020 Infusion Infusion Services Leonor Hernandez, Rafia P Primary urothelial Sebastian, carcinoma of Yomiko Rony, overlapping l esion of RN urinary organ ( Primary Dx) 06/18/2020 Office Visit Genitourinary Dante Christy, Primary uro thelial carcinoma of overlapping lesion of urinary organ (Primary Dx); Oncology MD Neuropathy, not otherwise specified; Essential hyper tension; Paraplegia, inc omplete; Post poliomyeli tis syndrome; Secondary malig nant neoplasm of bone; Personal histor y of malignant neoplasm of bladder 06/18/2020 Hospital Encounter Lab Leonor Hernandez NP 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 06/18/2020 Orders Only Radiology Lucille Cunningham PA 06/18/2020 Travel after 06/15/2020 Immunizations Name Administration Dates Next Due Pfizer SARS-CoV-2 Vaccination 12/15/2020, 05/05/2020, 2020 Surgical History Surgery Date Site/Laterality Comments COLONOSCOPY 03/08/2017 - test 03/07/2018 [place] 12/07/2019 Genitalia/N/A Procedure: CYSTO URETHROSCOPY CYSTOURETHROSCOPY,FULGUR WITH FU LGURATION; Surgeon: <0.5 CM Brigitte Lord; Location: MAIN OR; Servic e: UROLOGY TN INSJ TUNNELED CTR VAD 12/29/2019 Neck/Right Procedu re: PORT-A-CATH W/SUBQ PORT AGE 3 YR/> PLACEMENT ; Surgeon: Chaparro Reddy MD; Loc ation: [facility]; Service: CEE RG ONC - GENERAL Medical devices from this surgery are in t he Implants section. TN CHG FLUOROGUIDE CNTRL 12/29/2019 Neck/N/A Procedu re: FLUORO GUIDANCE DIDIER FOR CENTRAL VENO US ACCESS ACCESS,PLACE,REPLACE,REM DEVICE PLACEMENT, OVE REPLACEMENT, OR REMOVAL; Surgeon: Chaparro love MD; Location: [facility]; Service: SURG ONC - GENER AL Medical devices from this surgery are in t he Implants section. TN CHG US GUIDE, 12/29/2019 N/A Procedure: US G UIDANCE WITH VASCULAR ACCESS EVAL OF POTENTIA L ACCESS SITES, REALTIME US VISUALIZATION OF VASC NEEDLE ENTRY; Surgeon: Chaparro Reddy MD; Loc ation: [facility]; Service: CEE RG ONC - GENERAL Medical devices from this surgery are in t he Implants section. Medical History Medical History Date Comments Hypertension 2017 Neuropathy 2015 feet, leg spasms Paralysis 194 polio - legs Hearing loss 2004 partial Difficulty speaking 1999 shaky Swallowing problem 1999 cough sometimes Asthma 1954 Dependence on continuous positive airway pressure ventilatio n 1999 sleep apnea Polyp of colon 2018 2-precancerous History of recurrent urinary tract infection 2019 Benign prostatic hyperplasia 2018 Sleep apnea Chronic obstructive pulmonary disease mi ld emphysema Cancer Family History Medical History Relation Name Comments Stroke Father Cancer Neg Hx Relation Name Status Comments Father Social History Tobacco Use Types Packs/Day Years Used Date Former Smoker Cigarettes, Cigars 1.5 40 03/08/18 63 - 03/08/2004 Smokeless Tobacco: Former User Snuff Q uit: 03/08/2017 Tobacco Cessation: Ready to Quit: Yes Alcohol Use Standard Drinks/Week Comments Not Currently 0 (1 standard drink = 0.6 oz pure quit 2 beers per day 10 weeks ago alcohol) Alcohol Habits Answer Date Recorded How often do you have a drink Not asked containing alcohol? How many drinks containing alcohol do Not asked you have on a typical day when you are drinking? How often do you have six or more Not asked drinks on one occasion? Comment: quit 2 beers per day 10 weeks ago 2019 Sex Assigned at Date Recorded Male 11/22/2019 10:15 AM CDT Job Start Date Occupation Industry Not on file Not on file Not on file COVID-19 Exposure Response Date Recorded In the last month, have you been in contact with No / Unsure 06/10/2021 12:27 PM CDT someone who was confirmed or suspected to have Coronavirus / COVID-19? Obstetrics History Last Filed Vital Signs Vital Sign Reading Time Taken Comments Blood Pressure 120/76 06/10/2021 12:47 PM CDT Pulse 66 06/10/2021 12:47 PM CDT Temperature 36.8 C (98.2 F) 06/10/2021 12:47 PM CDT Respiratory Rate 18 06/10/2021 12:47 PM CDT Oxygen Saturation 98% 06/10/2021 12:47 PM CDT Inhaled Oxygen Concentration - - Weight 72.7 kg (160 lb 4.4 06/10/2021 10:31 AM pt in wh tony puentes) CDT Height 175.3 cm (5' 9.02") 05/13/2021 9:35 AM SHOT DROPPER Body Mass Index 23.66 05/13/2021 9:35 AM SHOT DROPPER Plan of Treatment Date Type Specialty Care Team Description 06/19/2021 Appointment Radiology Leonor Hernandez NP [address] [place] [place] [address] (Wo rk) 06/24/2021 Appointment Lab Dante Christy MD [address] [place] [address] (Wo rk) 06/24/2021 Telemedicine Genitourinary Oncology aDnte Christy MD [address] [place] [address] (Wo rk) 06/24/2021 Infusion Infusion Services Dante Christy MD [address] [place] [address] (Wo rk) 07/08/2021 Appointment Lab Fabi Ribeiro APN [address] [place] [address] (Wo rk) Health Maintenance Due Date Last Done Comments COVID-19 Vaccination (4 - Booster 05/15/2021 12/15/2020, , for Pfizer series) 04/06/2020 Implants Implanted Type Area Dozer Operator Device Shelf Model / Identifier Expiration Serial / Date Lot Pin Pin Right: Ankle [place], Clearvue Slim 6fr - [id number] Port Right: BARD PERIP HERAL 01/05/2021 [id number] / Implanted: Qty: 1 on 12/29/2019 by Chaparro Reddy MD at [facility] Chest VASCULAR / [id number] Description: CATHETER LENGTH - 27 CM Procedures Procedure Name Priority Date/Time Associated Comments Diagnosis CT CHEST ABDOMEN PELVIS W Routine 06/07/2021 Secondary Re sults for CONTRAST 12:52 PM CDT malignant this procedure neoplasm of bone are in the Personal history results of malignant section. 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 FRACTIONATED BILIRUBIN Routine 06/06/2021 Secondary Resul ts for 9:58 AM CDT malignant this procedure neoplasm of bone are in the Personal history results of malignant section. 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 TOTAL PROTEIN Routine 06/06/2021 Secondary Results for 9:58 AM CDT malignant this procedure neoplasm of bone are in the Personal history results of malignant section. 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 ASPARTATE AMINOTRANSFERASE Routine 06/06/2021 Secondary R esults for 9:58 AM CDT malignant this procedure neoplasm of bone are in the Personal history results of malignant section. 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 ALANINE AMINOTRANSFERASE Routine 06/06/2021 Secondary Res ults for 9:58 AM CDT malignant this procedure neoplasm of bone are in the Personal history results of malignant section. 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 ALKALINE PHOSPHATASE Routine 06/06/2021 Secondary Results for 9:58 AM CDT malignant this procedure neoplasm of bone are in the Personal history results of malignant section. 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 ALBUMIN LEVEL Routine 06/06/2021 Secondary Results for 9:58 AM CDT malignant this procedure neoplasm of bone are in the Personal history results of malignant section. 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 .GLOMERULAR FILTRATION Routine 06/06/2021 Secondary Resul ts for RATE 9:58 AM CDT malignant this procedure neoplasm of bone are in the Personal history results of malignant section. 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 ELECTROLYTE PANEL Routine 06/06/2021 Secondary Results fo r 9:58 AM CDT malignant this procedure neoplasm of bone are in the Personal history results of malignant section. 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 BLOOD UREA NITROGEN Routine 06/06/2021 Secondary Results for 9:58 AM CDT malignant this procedure neoplasm of bone are in the Personal history results of malignant section. 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 organ Results CBC Routine 05/27/2021 Primary Results for 10:01 AM CDT urothelial this procedure carcinoma of are in the overlapping results lesion of urinary section. organ FRACTIONATED BILIRUBIN Routine 05/27/2021 Primary Resul ts for 10:01 AM CDT urothelial this procedure carcinoma of are in the overlapping results lesion of urinary section. organ TOTAL PROTEIN Routine 05/27/2021 Primary Results for 10:01 AM CDT urothelial this procedure carcinoma of are in the overlapping results lesion of urinary section. organ ASPARTATE AMINOTRANSFERASE Routine 05/27/2021 Primary R esults for 10:01 AM CDT urothelial this procedure carcinoma of are in the overlapping results lesion of urinary section. organ ALANINE AMINOTRANSFERASE Routine 05/27/2021 Primary Res ults for 10:01 AM CDT urothelial this procedure carcinoma of are in the overlapping results lesion of urinary section. organ ALKALINE PHOSPHATASE Routine 05/27/2021 Primary Results for 10:01 AM CDT urothelial this procedure carcinoma of are in the overlapping results lesion of urinary section. organ ALBUMIN LEVEL Routine 05/27/2021 Primary Results for 10:01 AM CDT urothelial this procedure carcinoma of are in the overlapping results lesion of urinary section. organ CALCIUM LEVEL TOTAL Routine 05/27/2021 Primary Results for 10:01 AM CDT urothelial this procedure carcinoma of are in the overlapping results lesion of urinary section. organ .GLOMERULAR FILTRATION Routine 05/27/2021 Primary Resul ts for RATE 10:01 AM CDT urothelial this procedure carcinoma of are in the overlapping results lesion of urinary section. organ SERUM CREATININE Routine 05/27/2021 Primary Results for 10:01 AM CDT urothelial this procedure carcinoma of are in the overlapping results lesion of urinary section. organ ELECTROLYTE PANEL Routine 05/27/2021 Primary Results fo r 10:01 AM CDT urothelial this procedure carcinoma of are in the overlapping results lesion of urinary section. organ BLOOD UREA NITROGEN Routine 05/27/2021 Primary Results for 10:01 AM CDT urothelial this procedure carcinoma of are in the overlapping results lesion of urinary section. organ GLUCOSE LEVEL Routine 05/27/2021 Primary Results for 10:01 AM CDT urothelial this procedure carcinoma of are in the overlapping results lesion of urinary section. organ COMPREHENSIVE METABOLIC Routine 05/27/2021 Primary PANEL 10:01 AM CDT urothelial carcinoma of overlapping lesion of urinary organ MAGNESIUM LEVEL Routine 05/27/2021 Primary Results for 10:01 AM CDT urothelial this procedure carcinoma of are in the overlapping results lesion of urinary section. organ COMPLETE BLOOD COUNT W/ Routine 05/27/2021 Primary DIFFERENTIAL 10:01 AM CDT urothelial carcinoma of overlapping lesion of urinary organ LIPASE LEVEL Routine 05/27/2021 Primary Results for 10:01 AM CDT urothelial this procedure carcinoma of are in the overlapping results lesion of urinary section. organ AMYLASE LEVEL Routine 05/27/2021 Primary Results for 10:01 AM CDT urothelial this procedure carcinoma of are in the overlapping results lesion of urinary section. organ FREE THYROXINE Routine 05/27/2021 Primary Results for 10:01 AM CDT urothelial this procedure carcinoma of are in the overlapping results lesion of urinary section. organ THYROID STIMULATING Routine 05/27/2021 Primary Results for HORMONE 10:01 AM CDT urothelial this procedure carcinoma of are in the overlapping results lesion of urinary section. organ FRACTIONATED BILIRUBIN Routine 05/13/2021 Primary Resul ts for 9:31 AM SHOT DROPPER urothelial this procedure carcinoma of are in the overlapping results lesion of urinary section. organ TOTAL PROTEIN Routine 05/13/2021 Primary Results for 9:31 AM SHOT DROPPER urothelial this procedure carcinoma of are in the overlapping results lesion of urinary section. organ ASPARTATE AMINOTRANSFERASE Routine 05/13/2021 Primary R esults for 9:31 AM SHOT DROPPER urothelial this procedure carcinoma of are in the overlapping results lesion of urinary section. 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 organ ELECTROLYTE PANEL Routine 05/13/2021 Primary Results fo r 9:31 AM [facility] [employer] urothelial this procedure carcinoma of are in the overlapping results lesion of urinary section. 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 organ MANUAL DIFFERENTIAL Routine 05/13/2021 Primary Results for 9:31 AM [facility] [employer] urothelial this procedure carcinoma of are in the overlapping results lesion of urinary section. 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 organ Results CBC Routine 04/29/2021 Primary Results for 9:53 AM [facility] [employer] urothelial this procedure carcinoma of are in the overlapping results lesion of urinary section. organ FRACTIONATED BILIRUBIN Routine 04/29/2021 Primary Resul ts for 9:53 AM [facility] [employer] urothelial this procedure carcinoma of are in the overlapping results lesion of urinary section. 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 organ ASPARTATE AMINOTRANSFERASE Routine 04/29/2021 Primary R esults for 9:53 AM [facility] [employer] urothelial this procedure carcinoma of are in the overlapping results lesion of urinary section. organ ALANINE AMINOTRANSFERASE Routine 04/29/2021 Primary Res ults for 9:53 AM [facility] [employer] urothelial this procedure carcinoma of are in the overlapping results lesion of urinary section. 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 organ ALBUMIN LEVEL Routine 04/29/2021 Primary Results for 9:53 AM [facility] [employer] urothelial this procedure carcinoma of are in the overlapping results lesion of urinary section. 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 organ .GLOMERULAR FILTRATION Routine 04/29/2021 Primary Resul ts for RATE 9:53 AM [facility] [employer] urothelial this procedure carcinoma of are in the overlapping results lesion of urinary section. 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 organ ELECTROLYTE PANEL Routine 04/29/2021 Primary Results fo r 9:53 AM [facility] [employer] urothelial this procedure carcinoma of are in the overlapping results lesion of urinary section. 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 organ COMPREHENSIVE METABOLIC Routine 04/29/2021 Primary PANEL 9:53 AM [facility] [employer] urothel[facility] carcinoma of overlapping lesion of urinary organ MAGNESIUM LEVEL Routine 04/29/2021 Primary Results for 9:53 AM [facility] [employer] urothelial this procedure carcinoma of are in the overlapping results lesion of urinary section. 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 organ AMYLASE LEVEL Routine 04/29/2021 Primary Results for 9:53 AM [facility] [employer] urothelial this procedure carcinoma of are in the overlapping results lesion of urinary section. organ FREE THYROXINE Routine 04/29/2021 Primary Results for 9:53 AM [facility] [employer] urothelial this procedure carcinoma of are in the overlapping results lesion of urinary section. organ THYROID STIMULATING Routine 04/29/2021 Primary Results for HORMONE 9:53 AM [facility] [employer] urothelial this procedure carcinoma of are in the overlapping results lesion of urinary section. organ FRACTIONATED BILIRUBIN Routine 04/15/2021 Primary Resul ts for 9:30 AM [facility] [employer] urothelial this procedure carcinoma of are in the overlapping results lesion of urinary section. 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 organ ASPARTATE AMINOTRANSFERASE Routine 04/15/2021 Primary R esults for 9:30 AM [facility] [employer] urothelial this procedure carcinoma of are in the overlapping results lesion of urinary section. organ ALANINE AMINOTRANSFERASE Routine 04/15/2021 Primary Res ults for 9:30 AM [facility] [employer] urothelial this procedure carcinoma of are in the overlapping results lesion of urinary section. organ ALKALINE PHOSPHATASE Routine 04/15/2021 Primary Results for 9:30 AM [facility] [employer] urothelial this procedure carcinoma of are in the overlapping results lesion of urinary section. organ ALBUMIN LEVEL Routine 04/15/2021 Primary Results for 9:30 AM [facility] [employer] urothelial this procedure carcinoma of are in the overlapping results lesion of urinary section. organ CALCIUM LEVEL TOTAL Routine 04/15/2021 Primary Results for 9:30 AM [facility] [employer] urothelial this procedure carcinoma of are in the overlapping results lesion of urinary section. organ .GLOMERULAR FILTRATION Routine 04/15/2021 Primary Resul ts for RATE 9:30 AM [facility] [employer] urothelial this procedure carcinoma of are in the overlapping results lesion of urinary section. organ SERUM CREATININE Routine 04/15/2021 Primary Results for 9:30 AM [facility] [employer] urothelial this procedure carcinoma of are in the overlapping results lesion of urinary section. organ ELECTROLYTE PANEL Routine 04/15/2021 Primary Results fo r 9:30 AM [facility] [employer] urothelial this procedure carcinoma of are in the overlapping results lesion of urinary section. organ BLOOD UREA NITROGEN Routine 04/15/2021 Primary Results for 9:30 AM [facility] [employer] urothelial this procedure carcinoma of are in the overlapping results lesion of urinary section. organ GLUCOSE LEVEL Routine 04/15/2021 Primary Results for 9:30 AM [facility] [employer] urothelial this procedure carcinoma of are in the overlapping results lesion of urinary section. organ MANUAL DIFFERENTIAL Routine 04/15/2021 Primary Results for 9:30 AM [facility] [employer] urothelial this procedure carcinoma of are in the overlapping results lesion of urinary section. organ Results CBC Routine 04/15/2021 Primary Results for 9:30 AM [facility] [employer] urothelial this procedure carcinoma of are in the overlapping results lesion of urinary section. organ COMPREHENSIVE METABOLIC Routine 04/15/2021 Primary PANEL 9:30 AM [facility] [employer] urothel[facility] carcinoma of overlapping lesion of urinary organ MAGNESIUM LEVEL Routine 04/15/2021 Primary Results for 9:30 AM [facility] [employer] urothelial this procedure carcinoma of are in the overlapping results lesion of urinary section. 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 organ Hip pain <Unspecified side> MANUAL DIFFERENTIAL Routine 04/01/2021 Primary Results for 9:45 AM [facility] urothelial this procedure carcinoma of are in the overlapping results lesion of urinary section. organ Results CBC Routine 04/01/2021 Primary Results for 9:45 AM [facility] [employer] urothelial this procedure carcinoma of are in the overlapping results lesion of urinary section. organ FRACTIONATED BILIRUBIN Routine 04/01/2021 Primary Resul ts for 9:45 AM [facility] [employer] urothelial this procedure carcinoma of are in the overlapping results lesion of urinary section. organ TOTAL PROTEIN Routine 04/01/2021 Primary Results for 9:45 AM [facility] [employer] urothelial this procedure carcinoma of are in the overlapping results lesion of urinary section. organ ASPARTATE AMINOTRANSFERASE Routine 04/01/2021 Primary R esults for 9:45 AM [facility] [employer] urothelial this procedure carcinoma of are in the overlapping results lesion of urinary section. organ ALANINE AMINOTRANSFERASE Routine 04/01/2021 Primary Res ults for 9:45 AM [facility] [employer] urothelial this procedure carcinoma of are in the overlapping results lesion of urinary section. organ ALKALINE PHOSPHATASE Routine 04/01/2021 Primary Results for 9:45 AM [facility] [employer] urothelial this procedure carcinoma of are in the overlapping results lesion of urinary section. organ ALBUMIN LEVEL Routine 04/01/2021 Primary Results for 9:45 AM [facility] [employer] urothelial this procedure carcinoma of are in the overlapping results lesion of urinary section. organ CALCIUM LEVEL TOTAL Routine 04/01/2021 Primary Results for 9:45 AM [facility] [employer] urothelial this procedure carcinoma of are in the overlapping results lesion of urinary section. organ .GLOMERULAR FILTRATION Routine 04/01/2021 Primary Resul ts for RATE 9:45 AM [facility] [employer] urothelial this procedure carcinoma of are in the overlapping results lesion of urinary section. organ SERUM CREATININE Routine 04/01/2021 Primary Results for 9:45 AM [facility] [employer] urothelial this procedure carcinoma of are in the overlapping results lesion of urinary section. organ ELECTROLYTE PANEL Routine 04/01/2021 Primary Results fo r 9:45 AM [facility] [employer] urothelial this procedure carcinoma of are in the overlapping results lesion of urinary section. organ BLOOD UREA NITROGEN Routine 04/01/2021 Primary Results for 9:45 AM [facility] [employer] urothelial this procedure carcinoma of are in the overlapping results lesion of urinary section. organ GLUCOSE LEVEL Routine 04/01/2021 Primary Results for 9:45 AM [facility] [employer] urothelial this procedure carcinoma of are in the overlapping results lesion of urinary section. 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 organ AMYLASE LEVEL Routine 04/01/2021 Primary Results for 9:45 AM [facility] [employer] urothelial this procedure carcinoma of are in the overlapping results lesion of urinary section. organ FREE THYROXINE Routine 04/01/2021 Primary Results for 9:45 AM [facility] [employer] urothelial this procedure carcinoma of are in the overlapping results lesion of urinary section. organ THYROID STIMULATING Routine 04/01/2021 Primary Results for HORMONE 9:45 AM [facility] urothelial this procedure carcinoma of are in the overlapping results lesion of urinary section. organ CT CHEST ABDOMEN PELVIS W Routine 03/31/2021 Primary Re sults for CONTRAST 2:26 PM [facility] urothelial this procedure carcinoma of are in the overlapping results lesion of urinary section. organ POC CREATININE Routine 03/31/2021 Results for 1:33 PM [facility] [employer] this procedure are in the results section. NM BONE SCAN WHOLE BODY Routine 03/28/2021 Primary Resu lts for 1:23 PM [facility] urothelial this procedure carcinoma of are in the overlapping results lesion of urinary section. organ IR NEPHROSTOMY EXCHANGE Routine 03/21/2021 Primary Resu lts for 10:38 AM [facility] [employer] urothelial this procedure carcinoma of are in the overlapping results lesion of urinary section. organ FRACTIONATED BILIRUBIN Routine 03/17/2021 Primary Resul ts for 1:29 PM [facility] urothelial this procedure carcinoma of are in the overlapping results lesion of urinary section. organ TOTAL PROTEIN Routine 03/17/2021 Primary Results for 1:29 PM [facility] urothelial this procedure carcinoma of are in the overlapping results lesion of urinary section. organ ASPARTATE AMINOTRANSFERASE Routine 03/17/2021 Primary R esults for 1:29 PM [facility] [employer] urothelial this procedure carcinoma of are in the overlapping results lesion of urinary section. organ ALANINE AMINOTRANSFERASE Routine 03/17/2021 Primary Res ults for 1:29 PM [facility] urothelial this procedure carcinoma of are in the overlapping results lesion of urinary section. organ ALKALINE PHOSPHATASE Routine 03/17/2021 Primary Results for 1:29 PM [facility] urothelial this procedure carcinoma of are in the overlapping results lesion of urinary section. organ ALBUMIN LEVEL Routine 03/17/2021 Primary Results for 1:29 PM [facility] [employer] urothelial this procedure carcinoma of are in the overlapping results lesion of urinary section. organ CALCIUM LEVEL TOTAL Routine 03/17/2021 Primary Results for 1:29 PM [facility] [employer] urothelial this procedure carcinoma of are in the overlapping results lesion of urinary section. organ ELECTROLYTE PANEL Routine 03/17/2021 Primary Results fo r 1:29 PM [facility] urothelial this procedure carcinoma of are in the overlapping results lesion of urinary section. organ BLOOD UREA NITROGEN Routine 03/17/2021 Primary Results for 1:29 PM [facility] [employer] urothelial this procedure carcinoma of are in the overlapping results lesion of urinary section. organ GLUCOSE LEVEL Routine 03/17/2021 Primary Results for 1:29 PM [facility] [employer] urothelial this procedure carcinoma of are in the overlapping results lesion of urinary section. organ .GLOMERULAR FILTRATION Routine 03/17/2021 Resul ts for RATE 1:29 PM [facility] this procedure are in the results section. MANUAL DIFFERENTIAL Routine 03/17/2021 Primary Results for 1:29 PM [facility] [employer] urothelial this procedure carcinoma of are in the overlapping results lesion of urinary section. organ SERUM CREATININE Routine 03/17/2021 Results for 1:29 PM [facility] this procedure are in the results section. Results CBC Routine 03/17/2021 Primary Results for 1:29 PM [facility] [employer] urothelial this procedure carcinoma of are in the overlapping results lesion of urinary section. 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 SERUM CREATININE Routine 03/17/2021 1:29 PM [facility] XR FEMUR 2 VW RIGHT Routine 03/04/2021 Primary Results for 1:51 PM [facility] [employer] urothelial this procedure carcinoma of are in the overlapping results lesion of urinary section. organ XR HIP 2 OR 3 VW W PELVIS Routine 03/04/2021 Primary Re sults for RIGHT 1:51 PM [facility] urothelial this procedure carcinoma of are in the overlapping results lesion of urinary section. organ FRACTIONATED BILIRUBIN Routine 03/04/2021 Primary Resul ts for 8:17 AM [facility] urothelial this procedure carcinoma of are in the overlapping results lesion of urinary section. organ MANUAL DIFFERENTIAL Routine 03/04/2021 Primary Results for 8:17 AM [facility] urothelial this procedure carcinoma of are in the overlapping results lesion of urinary section. organ TOTAL PROTEIN Routine 03/04/2021 Primary Results for 8:17 AM [facility] urothelial this procedure carcinoma of are in the overlapping results lesion of urinary section. organ Results CBC Routine 03/04/2021 Primary Results for 8:17 AM [facility] urothelial this procedure carcinoma of are in the overlapping results lesion of urinary section. organ ASPARTATE AMINOTRANSFERASE Routine 03/04/2021 Primary R esults for 8:17 AM [facility] [employer] urothelial this procedure carcinoma of are in the overlapping results lesion of urinary section. organ ALANINE AMINOTRANSFERASE Routine 03/04/2021 Primary Res ults for 8:17 AM [facility] urothelial this procedure carcinoma of are in the overlapping results lesion of urinary section. organ ALKALINE PHOSPHATASE Routine 03/04/2021 Primary Results for 8:17 AM [facility] urothelial this procedure carcinoma of are in the overlapping results lesion of urinary section. organ ALBUMIN LEVEL Routine 03/04/2021 Primary Results for 8:17 AM [facility] urothelial this procedure carcinoma of are in the overlapping results lesion of urinary section. organ CALCIUM LEVEL TOTAL Routine 03/04/2021 Primary Results for 8:17 AM [facility] urothelial this procedure carcinoma of are in the overlapping results lesion of urinary section. organ .GLOMERULAR FILTRATION Routine 03/04/2021 Primary Resul ts for RATE 8:17 AM [facility] [employer] urothelial this procedure carcinoma of are in the overlapping results lesion of urinary section. organ SERUM CREATININE Routine 03/04/2021 Primary Results for 8:17 AM [facility] urothelial this procedure carcinoma of are in the overlapping results lesion of urinary section. organ ELECTROLYTE PANEL Routine 03/04/2021 Primary Results fo r 8:17 AM [facility] [employer] urothelial this procedure carcinoma of are in the overlapping results lesion of urinary section. organ BLOOD UREA NITROGEN Routine 03/04/2021 Primary Results for 8:17 AM [facility] urothelial this procedure carcinoma of are in the overlapping results lesion of urinary section. organ GLUCOSE LEVEL Routine 03/04/2021 Primary Results for 8:17 AM [facility] [employer] urothelial this procedure carcinoma of are in the overlapping results lesion of urinary section. 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 organ AMYLASE LEVEL Routine 03/04/2021 Primary Results for 8:17 AM [facility] urothelial this procedure carcinoma of are in the overlapping results lesion of urinary section. organ FREE THYROXINE Routine 03/04/2021 Primary Results for 8:17 AM [facility] urothelial this procedure carcinoma of are in the overlapping results lesion of urinary section. organ THYROID STIMULATING Routine 03/04/2021 Primary Results for HORMONE 8:17 AM [facility] urothelial this procedure carcinoma of are in the overlapping results lesion of urinary section. organ XR FEMUR 2 VW RIGHT Routine 02/19/2021 Primary Results for 11:25 AM [facility] urothelial this procedure carcinoma of are in the overlapping results lesion of urinary section. organ XR HIP 2 OR 3 VW W PELVIS Routine 02/19/2021 Primary Re sults for RIGHT 11:20 AM [facility] urothelial this procedure carcinoma of are in the overlapping results lesion of urinary section. organ BLOOD UREA NITROGEN Routine 02/17/2021 Primary Results for 11:56 AM [facility] urothelial this procedure carcinoma of are in the overlapping results lesion of urinary section. organ FRACTIONATED BILIRUBIN Routine 02/17/2021 Primary Resul ts for 11:56 AM [employer] urothelial this procedure carcinoma of are in the overlapping results lesion of urinary section. organ TOTAL PROTEIN Routine 02/17/2021 Primary Results for 11:56 AM [facility] urothelial this procedure carcinoma of are in the overlapping results lesion of urinary section. organ ASPARTATE AMINOTRANSFERASE Routine 02/17/2021 Primary R esults for 11:56 AM [facility] urothelial this procedure carcinoma of are in the overlapping results lesion of urinary section. organ ALANINE AMINOTRANSFERASE Routine 02/17/2021 Primary Res ults for 11:56 AM [facility] urothelial this procedure carcinoma of are in the overlapping results lesion of urinary section. organ ALKALINE PHOSPHATASE Routine 02/17/2021 Primary Results for 11:56 AM [facility] urothelial this procedure carcinoma of are in the overlapping results lesion of urinary section. organ ALBUMIN LEVEL Routine 02/17/2021 Primary Results for 11:56 AM [facility] urothelial this procedure carcinoma of are in the overlapping results lesion of urinary section. organ CALCIUM LEVEL TOTAL Routine 02/17/2021 Primary Results for 11:56 AM [facility] urothelial this procedure carcinoma of are in the overlapping results lesion of urinary section. organ .GLOMERULAR FILTRATION Routine 02/17/2021 Primary Resul ts for RATE 11:56 AM [facility] urothelial this procedure carcinoma of are in the overlapping results lesion of urinary section. organ SERUM CREATININE Routine 02/17/2021 Primary Results for 11:56 AM [facility] urothelial this procedure carcinoma of are in the overlapping results lesion of urinary section. organ ELECTROLYTE PANEL Routine 02/17/2021 Primary Results fo r 11:56 AM [facility] urothelial this procedure carcinoma of are in the overlapping results lesion of urinary section. 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 organ Results CBC Routine 02/03/2021 Primary Results for 10:44 AM [employer] urothelial this procedure carcinoma of are in the overlapping results lesion of urinary section. organ FRACTIONATED BILIRUBIN Routine 02/03/2021 Primary Resul ts for 10:44 AM [employer] urothelial this procedure carcinoma of are in the overlapping results lesion of urinary section. 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 organ ASPARTATE AMINOTRANSFERASE Routine 02/03/2021 Primary R esults for 10:44 AM [employer] urothelial this procedure carcinoma of are in the overlapping results lesion of urinary section. organ ALANINE AMINOTRANSFERASE Routine 02/03/2021 Primary Res ults for 10:44 AM [employer] urothelial this procedure carcinoma of are in the overlapping results lesion of urinary section. 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 organ .GLOMERULAR FILTRATION Routine 02/03/2021 Primary Resul ts for RATE 10:44 AM [employer] urothelial this procedure carcinoma of are in the overlapping results lesion of urinary section. 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 organ ELECTROLYTE PANEL Routine 02/03/2021 Primary Results fo r 10:44 AM [employer] urothelial this procedure carcinoma of are in the overlapping results lesion of urinary section. 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 organ GLUCOSE LEVEL Routine 02/03/2021 Primary Results for 10:44 AM [employer] urothelial this procedure carcinoma of are in the overlapping results lesion of urinary section. 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 organ AMYLASE LEVEL Routine 02/03/2021 Primary Results for 10:44 AM [employer] urothelial this procedure carcinoma of are in the overlapping results lesion of urinary section. organ FREE THYROXINE Routine 02/03/2021 Primary Results for 10:44 AM [employer] urothelial this procedure carcinoma of are in the overlapping results lesion of urinary section. organ THYROID STIMULATING Routine 02/03/2021 Primary Results for HORMONE 10:44 AM [employer] urothelial this procedure carcinoma of are in the overlapping results lesion of urinary section. organ FRACTIONATED BILIRUBIN Routine 01/21/2021 Primary Resul ts for 9:49 AM [employer] urothelial this procedure carcinoma of are in the overlapping results lesion of urinary section. organ TOTAL PROTEIN Routine 01/21/2021 Primary Results for 9:49 AM [employer] urothelial this procedure carcinoma of are in the overlapping results lesion of urinary section. organ ASPARTATE AMINOTRANSFERASE Routine 01/21/2021 Primary R esults for 9:49 AM [employer] urothelial this procedure carcinoma of are in the overlapping results lesion of urinary section. organ ALANINE AMINOTRANSFERASE Routine 01/21/2021 Primary Res ults for 9:49 AM [employer] urothelial this procedure carcinoma of are in the overlapping results lesion of urinary section. organ ALKALINE PHOSPHATASE Routine 01/21/2021 Primary Results for 9:49 AM [employer] urothelial this procedure carcinoma of are in the overlapping results lesion of urinary section. organ ALBUMIN LEVEL Routine 01/21/2021 Primary Results for 9:49 AM [employer] urothelial this procedure carcinoma of are in the overlapping results lesion of urinary section. organ CALCIUM LEVEL TOTAL Routine 01/21/2021 Primary Results for 9:49 AM [employer] urothelial this procedure carcinoma of are in the overlapping results lesion of urinary section. organ .GLOMERULAR FILTRATION Routine 01/21/2021 Primary Resul ts for RATE 9:49 AM [employer] urothelial this procedure carcinoma of are in the overlapping results lesion of urinary section. organ SERUM CREATININE Routine 01/21/2021 Primary Results for 9:49 AM [employer] urothelial this procedure carcinoma of are in the overlapping results lesion of urinary section. organ ELECTROLYTE PANEL Routine 01/21/2021 Primary Results fo r 9:49 AM [employer] urothelial this procedure carcinoma of are in the overlapping results lesion of urinary section. organ BLOOD UREA NITROGEN Routine 01/21/2021 Primary Results for 9:49 AM [employer] urothelial this procedure carcinoma of are in the overlapping results lesion of urinary section. organ GLUCOSE LEVEL Routine 01/21/2021 Primary Results for 9:49 AM [employer] urothelial this procedure carcinoma of are in the overlapping results lesion of urinary section. organ MANUAL DIFFERENTIAL Routine 01/21/2021 Primary Results for 9:49 AM [employer] urothelial this procedure carcinoma of are in the overlapping results lesion of urinary section. organ Results CBC Routine 01/21/2021 Primary Results for 9:49 AM [employer] urothelial this procedure carcinoma of are in the overlapping results lesion of urinary section. 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 organ Results CBC Routine 01/07/2021 Primary Results for 9:40 AM CDT urothelial this procedure carcinoma of are in the overlapping results lesion of urinary section. organ FRACTIONATED BILIRUBIN Routine 01/07/2021 Primary Resul ts for 9:40 AM CDT urothelial this procedure carcinoma of are in the overlapping results lesion of urinary section. organ TOTAL PROTEIN Routine 01/07/2021 Primary Results for 9:40 AM CDT urothelial this procedure carcinoma of are in the overlapping results lesion of urinary section. organ ASPARTATE AMINOTRANSFERASE Routine 01/07/2021 Primary R esults for 9:40 AM CDT urothelial this procedure carcinoma of are in the overlapping results lesion of urinary section. organ ALANINE AMINOTRANSFERASE Routine 01/07/2021 Primary Res ults for 9:40 AM CDT urothelial this procedure carcinoma of are in the overlapping results lesion of urinary section. organ ALKALINE PHOSPHATASE Routine 01/07/2021 Primary Results for 9:40 AM CDT urothelial this procedure carcinoma of are in the overlapping results lesion of urinary section. organ ALBUMIN LEVEL Routine 01/07/2021 Primary Results for 9:40 AM CDT urothelial this procedure carcinoma of are in the overlapping results lesion of urinary section. organ CALCIUM LEVEL TOTAL Routine 01/07/2021 Primary Results for 9:40 AM CDT urothelial this procedure carcinoma of are in the overlapping results lesion of urinary section. organ .GLOMERULAR FILTRATION Routine 01/07/2021 Primary Resul ts for RATE 9:40 AM CDT urothelial this procedure carcinoma of are in the overlapping results lesion of urinary section. organ SERUM CREATININE Routine 01/07/2021 Primary Results for 9:40 AM CDT urothelial this procedure carcinoma of are in the overlapping results lesion of urinary section. organ ELECTROLYTE PANEL Routine 01/07/2021 Primary Results fo r 9:40 AM CDT urothelial this procedure carcinoma of are in the overlapping results lesion of urinary section. organ BLOOD UREA NITROGEN Routine 01/07/2021 Primary Results for 9:40 AM CDT urothelial this procedure carcinoma of are in the overlapping results lesion of urinary section. organ GLUCOSE LEVEL Routine 01/07/2021 Primary Results for 9:40 AM CDT urothelial this procedure carcinoma of are in the overlapping results lesion of urinary section. 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 organ AMYLASE LEVEL Routine 01/07/2021 Primary Results for 9:40 AM CDT urothelial this procedure carcinoma of are in the overlapping results lesion of urinary section. organ FREE THYROXINE Routine 01/07/2021 Primary Results for 9:40 AM CDT urothelial this procedure carcinoma of are in the overlapping results lesion of urinary section. organ THYROID STIMULATING Routine 01/07/2021 Primary Results for HORMONE 9:40 AM CDT urothelial this procedure carcinoma of are in the overlapping results lesion of urinary section. organ FRACTIONATED BILIRUBIN Routine 12/24/2020 Primary Resul ts for 10:40 AM CDT urothelial this procedure carcinoma of are in the overlapping results lesion of urinary section. organ TOTAL PROTEIN Routine 12/24/2020 Primary Results for 10:40 AM CDT urothelial this procedure carcinoma of are in the overlapping results lesion of urinary section. organ ASPARTATE AMINOTRANSFERASE Routine 12/24/2020 Primary R esults for 10:40 AM CDT urothelial this procedure carcinoma of are in the overlapping results lesion of urinary section. organ ALANINE AMINOTRANSFERASE Routine 12/24/2020 Primary Res ults for 10:40 AM CDT urothelial this procedure carcinoma of are in the overlapping results lesion of urinary section. organ ALKALINE PHOSPHATASE Routine 12/24/2020 Primary Results for 10:40 AM CDT urothelial this procedure carcinoma of are in the overlapping results lesion of urinary section. organ ALBUMIN LEVEL Routine 12/24/2020 Primary Results for 10:40 AM CDT urothelial this procedure carcinoma of are in the overlapping results lesion of urinary section. organ CALCIUM LEVEL TOTAL Routine 12/24/2020 Primary Results for 10:40 AM CDT urothelial this procedure carcinoma of are in the overlapping results lesion of urinary section. organ .GLOMERULAR FILTRATION Routine 12/24/2020 Primary Resul ts for RATE 10:40 AM CDT urothelial this procedure carcinoma of are in the overlapping results lesion of urinary section. organ SERUM CREATININE Routine 12/24/2020 Primary Results for 10:40 AM CDT urothelial this procedure carcinoma of are in the overlapping results lesion of urinary section. organ ELECTROLYTE PANEL Routine 12/24/2020 Primary Results fo r 10:40 AM CDT urothelial this procedure carcinoma of are in the overlapping results lesion of urinary section. organ BLOOD UREA NITROGEN Routine 12/24/2020 Primary Results for 10:40 AM CDT urothelial this procedure carcinoma of are in the overlapping results lesion of urinary section. organ GLUCOSE LEVEL Routine 12/24/2020 Primary Results for 10:40 AM CDT urothelial this procedure carcinoma of are in the overlapping results lesion of urinary section. organ MANUAL DIFFERENTIAL Routine 12/24/2020 Primary Results for 10:40 AM CDT urothelial this procedure carcinoma of are in the overlapping results lesion of urinary section. organ Results CBC Routine 12/24/2020 Primary Results for 10:40 AM CDT urothelial this procedure carcinoma of are in the overlapping results lesion of urinary section. 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 organ TOTAL PROTEIN Routine 12/10/2020 Primary Results for 12:33 PM CDT urothelial this procedure carcinoma of are in the overlapping results lesion of urinary section. organ ASPARTATE AMINOTRANSFERASE Routine 12/10/2020 Primary R esults for 12:33 PM CDT urothelial this procedure carcinoma of are in the overlapping results lesion of urinary section. organ MANUAL DIFFERENTIAL Routine 12/10/2020 Primary Results for 12:33 PM CDT urothelial this procedure carcinoma of are in the overlapping results lesion of urinary section. organ ALANINE AMINOTRANSFERASE Routine 12/10/2020 Primary Res ults for 12:33 PM CDT urothelial this procedure carcinoma of are in the overlapping results lesion of urinary section. organ Results CBC Routine 12/10/2020 Primary Results for 12:33 PM CDT urothelial this procedure carcinoma of are in the overlapping results lesion of urinary section. organ ALKALINE PHOSPHATASE Routine 12/10/2020 Primary Results for 12:33 PM CDT urothelial this procedure carcinoma of are in the overlapping results lesion of urinary section. organ ALBUMIN LEVEL Routine 12/10/2020 Primary Results for 12:33 PM CDT urothelial this procedure carcinoma of are in the overlapping results lesion of urinary section. organ CALCIUM LEVEL TOTAL Routine 12/10/2020 Primary Results for 12:33 PM CDT urothelial this procedure carcinoma of are in the overlapping results lesion of urinary section. organ .GLOMERULAR FILTRATION Routine 12/10/2020 Primary Resul ts for RATE 12:33 PM CDT urothelial this procedure carcinoma of are in the overlapping results lesion of urinary section. organ SERUM CREATININE Routine 12/10/2020 Primary Results for 12:33 PM CDT urothelial this procedure carcinoma of are in the overlapping results lesion of urinary section. organ ELECTROLYTE PANEL Routine 12/10/2020 Primary Results fo r 12:33 PM CDT urothelial this procedure carcinoma of are in the overlapping results lesion of urinary section. organ BLOOD UREA NITROGEN Routine 12/10/2020 Primary Results for 12:33 PM CDT urothelial this procedure carcinoma of are in the overlapping results lesion of urinary section. organ GLUCOSE LEVEL Routine 12/10/2020 Primary Results for 12:33 PM CDT urothelial this procedure carcinoma of are in the overlapping results lesion of urinary section. 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 organ AMYLASE LEVEL Routine 12/10/2020 Primary Results for 12:33 PM CDT urothelial this procedure carcinoma of are in the overlapping results lesion of urinary section. organ FREE THYROXINE Routine 12/10/2020 Primary Results for 12:33 PM CDT urothelial this procedure carcinoma of are in the overlapping results lesion of urinary section. organ THYROID STIMULATING Routine 12/10/2020 Primary Results for HORMONE 12:33 PM CDT urothelial this procedure carcinoma of are in the overlapping results lesion of urinary section. organ IR NEPHROSTOMY EXCHANGE Routine 11/27/2020 Fever of unknown Results for 12:03 PM CDT origin (FUO) this procedure are in the results section. FRACTIONATED BILIRUBIN Routine 11/26/2020 Primary Resul ts for 10:38 AM CDT urothelial this procedure carcinoma of are in the overlapping results lesion of urinary section. organ TOTAL PROTEIN Routine 11/26/2020 Primary Results for 10:38 AM CDT urothelial this procedure carcinoma of are in the overlapping results lesion of urinary section. organ ASPARTATE AMINOTRANSFERASE Routine 11/26/2020 Primary R esults for 10:38 AM CDT urothelial this procedure carcinoma of are in the overlapping results lesion of urinary section. organ ALANINE AMINOTRANSFERASE Routine 11/26/2020 Primary Res ults for 10:38 AM CDT urothelial this procedure carcinoma of are in the overlapping results lesion of urinary section. organ ALKALINE PHOSPHATASE Routine 11/26/2020 Primary Results for 10:38 AM CDT urothelial this procedure carcinoma of are in the overlapping results lesion of urinary section. organ ALBUMIN LEVEL Routine 11/26/2020 Primary Results for 10:38 AM CDT urothelial this procedure carcinoma of are in the overlapping results lesion of urinary section. organ CALCIUM LEVEL TOTAL Routine 11/26/2020 Primary Results for 10:38 AM CDT urothelial this procedure carcinoma of are in the overlapping results lesion of urinary section. organ .GLOMERULAR FILTRATION Routine 11/26/2020 Primary Resul ts for RATE 10:38 AM CDT urothelial this procedure carcinoma of are in the overlapping results lesion of urinary section. organ SERUM CREATININE Routine 11/26/2020 Primary Results for 10:38 AM CDT urothelial this procedure carcinoma of are in the overlapping results lesion of urinary section. organ ELECTROLYTE PANEL Routine 11/26/2020 Primary Results fo r 10:38 AM CDT urothelial this procedure carcinoma of are in the overlapping results lesion of urinary section. organ BLOOD UREA NITROGEN Routine 11/26/2020 Primary Results for 10:38 AM CDT urothelial this procedure carcinoma of are in the overlapping results lesion of urinary section. organ GLUCOSE LEVEL Routine 11/26/2020 Primary Results for 10:38 AM CDT urothelial this procedure carcinoma of are in the overlapping results lesion of urinary section. organ MANUAL DIFFERENTIAL Routine 11/26/2020 Primary Results for 10:38 AM CDT urothelial this procedure carcinoma of are in the overlapping results lesion of urinary section. organ Results CBC Routine 11/26/2020 Primary Results for 10:38 AM CDT urothelial this procedure carcinoma of are in the overlapping results lesion of urinary section. 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 organ Results CBC Routine 11/12/2020 Primary Results for 10:13 AM CDT urothelial this procedure carcinoma of are in the overlapping results lesion of urinary section. organ FRACTIONATED BILIRUBIN Routine 11/12/2020 Primary Resul ts for 10:13 AM CDT urothelial this procedure carcinoma of are in the overlapping results lesion of urinary section. organ TOTAL PROTEIN Routine 11/12/2020 Primary Results for 10:13 AM CDT urothelial this procedure carcinoma of are in the overlapping results lesion of urinary section. organ ASPARTATE AMINOTRANSFERASE Routine 11/12/2020 Primary R esults for 10:13 AM CDT urothelial this procedure carcinoma of are in the overlapping results lesion of urinary section. organ ALANINE AMINOTRANSFERASE Routine 11/12/2020 Primary Res ults for 10:13 AM CDT urothelial this procedure carcinoma of are in the overlapping results lesion of urinary section. organ ALKALINE PHOSPHATASE Routine 11/12/2020 Primary Results for 10:13 AM CDT urothelial this procedure carcinoma of are in the overlapping results lesion of urinary section. organ ALBUMIN LEVEL Routine 11/12/2020 Primary Results for 10:13 AM CDT urothelial this procedure carcinoma of are in the overlapping results lesion of urinary section. organ CALCIUM LEVEL TOTAL Routine 11/12/2020 Primary Results for 10:13 AM CDT urothelial this procedure carcinoma of are in the overlapping results lesion of urinary section. organ .GLOMERULAR FILTRATION Routine 11/12/2020 Primary Resul ts for RATE 10:13 AM CDT urothelial this procedure carcinoma of are in the overlapping results lesion of urinary section. organ SERUM CREATININE Routine 11/12/2020 Primary Results for 10:13 AM CDT urothelial this procedure carcinoma of are in the overlapping results lesion of urinary section. organ ELECTROLYTE PANEL Routine 11/12/2020 Primary Results fo r 10:13 AM CDT urothelial this procedure carcinoma of are in the overlapping results lesion of urinary section. organ BLOOD UREA NITROGEN Routine 11/12/2020 Primary Results for 10:13 AM CDT urothelial this procedure carcinoma of are in the overlapping results lesion of urinary section. organ GLUCOSE LEVEL Routine 11/12/2020 Primary Results for 10:13 AM CDT urothelial this procedure carcinoma of are in the overlapping results lesion of urinary section. 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 organ POC CREATININE Routine 11/08/2020 Results for 1:29 PM CDT this procedure are in the results section. 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 organ THYROID STIMULATING Routine 10/15/2020 Primary Results for HORMONE 1:10 PM CDT urothelial this procedure carcinoma of are in the overlapping results lesion of urinary section. 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 organ FRACTIONATED BILIRUBIN Routine 10/01/2020 Primary Resul ts for 8:13 AM CDT urothelial this procedure carcinoma of are in the overlapping results lesion of urinary section. 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 organ ASPARTATE AMINOTRANSFERASE Routine 10/01/2020 Primary R esults for 8:13 AM CDT urothelial this procedure carcinoma of are in the overlapping results lesion of urinary section. 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 organ .GLOMERULAR FILTRATION Routine 10/01/2020 Primary Resul ts for RATE 8:13 AM CDT urothelial this procedure carcinoma of are in the overlapping results lesion of urinary section. 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 organ FREE THYROXINE Routine 10/01/2020 Primary Results for 8:13 AM CDT urothelial this procedure carcinoma of are in the overlapping results lesion of urinary section. organ THYROID STIMULATING Routine 10/01/2020 Primary Results for HORMONE 8:13 AM CDT urothelial this procedure carcinoma of are in the overlapping results lesion of urinary section. 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 organ Results CBC Routine 09/17/2020 Primary Results for 9:32 AM CDT urothelial this procedure carcinoma of are in the overlapping results lesion of urinary section. organ FRACTIONATED BILIRUBIN Routine 09/17/2020 Primary Resul ts for 9:32 AM CDT urothelial this procedure carcinoma of are in the overlapping results lesion of urinary section. organ TOTAL PROTEIN Routine 09/17/2020 Primary Results for 9:32 AM CDT urothelial this procedure carcinoma of are in the overlapping results lesion of urinary section. organ ASPARTATE AMINOTRANSFERASE Routine 09/17/2020 Primary R esults for 9:32 AM CDT urothelial this procedure carcinoma of are in the overlapping results lesion of urinary section. organ ALANINE AMINOTRANSFERASE Routine 09/17/2020 Primary Res ults for 9:32 AM CDT urothelial this procedure carcinoma of are in the overlapping results lesion of urinary section. 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 organ .GLOMERULAR FILTRATION Routine 09/17/2020 Primary Resul ts for RATE 9:32 AM CDT urothelial this procedure carcinoma of are in the overlapping results lesion of urinary section. 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 organ ELECTROLYTE PANEL Routine 09/17/2020 Primary Results fo r 9:32 AM CDT urothelial this procedure carcinoma of are in the overlapping results lesion of urinary section. organ BLOOD UREA NITROGEN Routine 09/17/2020 Primary Results for 9:32 AM CDT urothelial this procedure carcinoma of are in the overlapping results lesion of urinary section. organ GLUCOSE LEVEL Routine 09/17/2020 Primary Results for 9:32 AM CDT urothelial this procedure carcinoma of are in the overlapping results lesion of urinary section. 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 organ AMYLASE LEVEL Routine 09/17/2020 Primary Results for 9:32 AM CDT urothelial this procedure carcinoma of are in the overlapping results lesion of urinary section. organ FREE THYROXINE Routine 09/17/2020 Primary Results for 9:32 AM CDT urothelial this procedure carcinoma of are in the overlapping results lesion of urinary section. organ THYROID STIMULATING Routine 09/17/2020 Primary Results for HORMONE 9:32 AM CDT urothelial this procedure carcinoma of are in the overlapping results lesion of urinary section. organ FRACTIONATED BILIRUBIN Routine 09/03/2020 Primary Resul ts for 12:08 PM CDT urothelial this procedure carcinoma of are in the overlapping results lesion of urinary section. organ TOTAL PROTEIN Routine 09/03/2020 Primary Results for 12:08 PM CDT urothelial this procedure carcinoma of are in the overlapping results lesion of urinary section. organ ASPARTATE AMINOTRANSFERASE Routine 09/03/2020 Primary R esults for 12:08 PM CDT urothelial this procedure carcinoma of are in the overlapping results lesion of urinary section. organ ALANINE AMINOTRANSFERASE Routine 09/03/2020 Primary Res ults for 12:08 PM CDT urothelial this procedure carcinoma of are in the overlapping results lesion of urinary section. organ ALKALINE PHOSPHATASE Routine 09/03/2020 Primary Results for 12:08 PM CDT urothelial this procedure carcinoma of are in the overlapping results lesion of urinary section. organ ALBUMIN LEVEL Routine 09/03/2020 Primary Results for 12:08 PM CDT urothelial this procedure carcinoma of are in the overlapping results lesion of urinary section. organ CALCIUM LEVEL TOTAL Routine 09/03/2020 Primary Results for 12:08 PM CDT urothelial this procedure carcinoma of are in the overlapping results lesion of urinary section. organ .GLOMERULAR FILTRATION Routine 09/03/2020 Primary Resul ts for RATE 12:08 PM CDT urothelial this procedure carcinoma of are in the overlapping results lesion of urinary section. organ SERUM CREATININE Routine 09/03/2020 Primary Results for 12:08 PM CDT urothelial this procedure carcinoma of are in the overlapping results lesion of urinary section. organ ELECTROLYTE PANEL Routine 09/03/2020 Primary Results fo r 12:08 PM CDT urothelial this procedure carcinoma of are in the overlapping results lesion of urinary section. organ BLOOD UREA NITROGEN Routine 09/03/2020 Primary Results for 12:08 PM CDT urothelial this procedure carcinoma of are in the overlapping results lesion of urinary section. organ GLUCOSE LEVEL Routine 09/03/2020 Primary Results for 12:08 PM CDT urothelial this procedure carcinoma of are in the overlapping results lesion of urinary section. organ MANUAL DIFFERENTIAL Routine 09/03/2020 Primary Results for 12:08 PM CDT urothelial this procedure carcinoma of are in the overlapping results lesion of urinary section. organ Results CBC Routine 09/03/2020 Primary Results for 12:08 PM CDT urothelial this procedure carcinoma of are in the overlapping results lesion of urinary section. organ FREE THYROXINE Routine 09/03/2020 Primary Results for 12:08 PM CDT urothelial this procedure carcinoma of are in the overlapping results lesion of urinary section. organ THYROID STIMULATING Routine 09/03/2020 Primary Results for HORMONE 12:08 PM CDT urothelial this procedure carcinoma of are in the overlapping results lesion of urinary section. organ PHOSPHORUS LEVEL Routine 09/03/2020 Primary Results for 12:08 PM CDT urothelial this procedure carcinoma of are in the overlapping results lesion of urinary section. organ MAGNESIUM LEVEL Routine 09/03/2020 Primary Results for 12:08 PM CDT urothelial this procedure carcinoma of are in the overlapping results lesion of urinary section. 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 organ MANUAL DIFFERENTIAL Routine 08/30/2020 Primary Results for 7:28 AM CDT urothelial this procedure carcinoma of are in the overlapping results lesion of urinary section. organ Results CBC Routine 08/30/2020 Primary Results for 7:28 AM CDT urothelial this procedure carcinoma of are in the overlapping results lesion of urinary section. organ FRACTIONATED BILIRUBIN Routine 08/30/2020 Primary Resul ts for 7:28 AM CDT urothelial this procedure carcinoma of are in the overlapping results lesion of urinary section. organ TOTAL PROTEIN Routine 08/30/2020 Primary Results for 7:28 AM CDT urothelial this procedure carcinoma of are in the overlapping results lesion of urinary section. organ ASPARTATE AMINOTRANSFERASE Routine 08/30/2020 Primary R esults for 7:28 AM CDT urothelial this procedure carcinoma of are in the overlapping results lesion of urinary section. organ ALANINE AMINOTRANSFERASE Routine 08/30/2020 Primary Res ults for 7:28 AM CDT urothelial this procedure carcinoma of are in the overlapping results lesion of urinary section. organ ALKALINE PHOSPHATASE Routine 08/30/2020 Primary Results for 7:28 AM CDT urothelial this procedure carcinoma of are in the overlapping results lesion of urinary section. organ ALBUMIN LEVEL Routine 08/30/2020 Primary Results for 7:28 AM CDT urothelial this procedure carcinoma of are in the overlapping results lesion of urinary section. organ CALCIUM LEVEL TOTAL Routine 08/30/2020 Primary Results for 7:28 AM CDT urothelial this procedure carcinoma of are in the overlapping results lesion of urinary section. organ .GLOMERULAR FILTRATION Routine 08/30/2020 Primary Resul ts for RATE 7:28 AM CDT urothelial this procedure carcinoma of are in the overlapping results lesion of urinary section. organ SERUM CREATININE Routine 08/30/2020 Primary Results for 7:28 AM CDT urothelial this procedure carcinoma of are in the overlapping results lesion of urinary section. organ ELECTROLYTE PANEL Routine 08/30/2020 Primary Results fo r 7:28 AM CDT urothelial this procedure carcinoma of are in the overlapping results lesion of urinary section. organ BLOOD UREA NITROGEN Routine 08/30/2020 Primary Results for 7:28 AM CDT urothelial this procedure carcinoma of are in the overlapping results lesion of urinary section. organ GLUCOSE LEVEL Routine 08/30/2020 Primary Results for 7:28 AM CDT urothelial this procedure carcinoma of are in the overlapping results lesion of urinary section. 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 organ AMYLASE LEVEL Routine 08/30/2020 Primary Results for 7:28 AM CDT urothelial this procedure carcinoma of are in the overlapping results lesion of urinary section. organ FREE THYROXINE Routine 08/30/2020 Primary Results for 7:28 AM CDT urothelial this procedure carcinoma of are in the overlapping results lesion of urinary section. organ THYROID STIMULATING Routine 08/30/2020 Primary Results for HORMONE 7:28 AM CDT urothelial this procedure carcinoma of are in the overlapping results lesion of urinary section. organ IR NEPHROSTOMY EXCHANGE Routine 08/27/2020 Primary Resu lts for 10:13 AM CDT urothelial this procedure carcinoma of are in the overlapping results lesion of urinary section. organ POTASSIUM LEVEL STAT 08/27/2020 Results for 8:32 AM CDT this procedure are in the results section. MANUAL DIFFERENTIAL AM 08/27/2020 Results for 3:07 AM CDT this procedure are in the results section. Results CBC AM 08/27/2020 Results for 3:07 AM CDT this procedure are in the results section. CALCIUM LEVEL TOTAL AM 08/27/2020 Results for 3:07 AM CDT this procedure are in the results section. .GLOMERULAR FILTRATION AM 08/27/2020 Resul ts for RATE 3:07 AM CDT this procedure are in the results section. SERUM CREATININE AM 08/27/2020 Results for 3:07 AM CDT this procedure are in the results section. ELECTROLYTE PANEL AM 08/27/2020 Results fo r 3:07 AM CDT this procedure are in the results section. BLOOD UREA NITROGEN AM 08/27/2020 Results for 3:07 AM CDT this procedure are in the results section. GLUCOSE LEVEL AM 08/27/2020 Results for 3:07 AM CDT this procedure are in the results section. PHOSPHORUS LEVEL AM 08/27/2020 Results for 3:07 AM CDT this procedure are in the results section. MAGNESIUM LEVEL AM 08/27/2020 Results for 3:07 AM CDT this procedure are in the results section. COMPLETE BLOOD COUNT W/ AM 08/27/2020 DIFFERENTIAL 3:07 AM CDT BASIC METABOLIC PANEL, AM 08/27/2020 CALCIUM TOTAL 3:07 AM CDT EKG, 12-LEAD (PORTABLE) Routine 08/27/2020 MANUAL DIFFERENTIAL AM 08/26/2020 Results for 4:03 AM CDT this procedure are in the results section. Results CBC AM 08/26/2020 Results for 4:03 AM CDT this procedure are in the results section. FRACTIONATED BILIRUBIN AM 08/26/2020 Resul ts for 4:03 AM CDT this procedure are in the results section. TOTAL PROTEIN AM 08/26/2020 Results for 4:03 AM CDT this procedure are in the results section. ASPARTATE AMINOTRANSFERASE AM 08/26/2020 R esults for 4:03 AM CDT this procedure are in the results section. ALANINE AMINOTRANSFERASE AM 08/26/2020 Res ults for 4:03 AM CDT this procedure are in the results section. ALKALINE PHOSPHATASE AM 08/26/2020 Results for 4:03 AM CDT this procedure are in the results section. ALBUMIN LEVEL AM 08/26/2020 Results for 4:03 AM CDT this procedure are in the results section. CALCIUM LEVEL TOTAL AM 08/26/2020 Results for 4:03 AM CDT this procedure are in the results section. .GLOMERULAR FILTRATION AM 08/26/2020 Resul ts for RATE 4:03 AM CDT this procedure are in the results section. SERUM CREATININE AM 08/26/2020 Results for 4:03 AM CDT this procedure are in the results section. ELECTROLYTE PANEL AM 08/26/2020 Results fo r 4:03 AM CDT this procedure are in the results section. BLOOD UREA NITROGEN AM 08/26/2020 Results for 4:03 AM CDT this procedure are in the results section. GLUCOSE LEVEL AM 08/26/2020 Results for 4:03 AM CDT this procedure are in the results section. APTT AM 08/26/2020 Results for 4:03 AM CDT this procedure are in the results section. PROTHROMBIN TIME AM 08/26/2020 Results for 4:03 AM CDT this procedure are in the results section. HEPATIC FUNCTION PANEL AM 08/26/2020 4:03 AM CDT PHOSPHORUS LEVEL AM 08/26/2020 Results for 4:03 AM CDT this procedure are in the results section. MAGNESIUM LEVEL AM 08/26/2020 Results for 4:03 AM CDT this procedure are in the results section. COMPLETE BLOOD COUNT W/ AM 08/26/2020 DIFFERENTIAL 4:03 AM CDT BASIC METABOLIC PANEL, AM 08/26/2020 CALCIUM TOTAL 4:03 AM CDT BLOODCULTURE Now 08/25/2020 Results for 2:15 PM CDT this procedure are in the results section. MANUAL DIFFERENTIAL AM 08/25/2020 Results for 3:55 AM CDT this procedure are in the results section. Results CBC AM 08/25/2020 Results for 3:55 AM CDT this procedure are in the results section. CALCIUM LEVEL TOTAL AM 08/25/2020 Results for 3:55 AM CDT this procedure are in the results section. .GLOMERULAR FILTRATION AM 08/25/2020 Resul ts for RATE 3:55 AM CDT this procedure are in the results section. SERUM CREATININE AM 08/25/2020 Results for 3:55 AM CDT this procedure are in the results section. ELECTROLYTE PANEL AM 08/25/2020 Results fo r 3:55 AM CDT this procedure are in the results section. BLOOD UREA NITROGEN AM 08/25/2020 Results for 3:55 AM CDT this procedure are in the results section. GLUCOSE LEVEL AM 08/25/2020 Results for 3:55 AM CDT this procedure are in the results section. PHOSPHORUS LEVEL AM 08/25/2020 Results for 3:55 AM CDT this procedure are in the results section. MAGNESIUM LEVEL AM 08/25/2020 Results for 3:55 AM CDT this procedure are in the results section. COMPLETE BLOOD COUNT W/ AM 08/25/2020 DIFFERENTIAL 3:55 AM CDT BASIC METABOLIC PANEL, AM 08/25/2020 CALCIUM TOTAL 3:55 AM CDT BLOODCULTURE Now 08/24/2020 Results for 12:42 PM CDT this procedure are in the results section. MANUAL DIFFERENTIAL AM 08/24/2020 Results for 2:48 AM CDT this procedure are in the results section. Results CBC AM 08/24/2020 Results for 2:48 AM CDT this procedure are in the results section. CALCIUM LEVEL TOTAL AM 08/24/2020 Results for 2:48 AM CDT this procedure are in the results section. .GLOMERULAR FILTRATION AM 08/24/2020 Resul ts for RATE 2:48 AM CDT this procedure are in the results section. SERUM CREATININE AM 08/24/2020 Results for 2:48 AM CDT this procedure are in the results section. ELECTROLYTE PANEL AM 08/24/2020 Results fo r 2:48 AM CDT this procedure are in the results section. BLOOD UREA NITROGEN AM 08/24/2020 Results for 2:48 AM CDT this procedure are in the results section. GLUCOSE LEVEL AM 08/24/2020 Results for 2:48 AM CDT this procedure are in the results section. PHOSPHORUS LEVEL AM 08/24/2020 Results for 2:48 AM CDT this procedure are in the results section. MAGNESIUM LEVEL AM 08/24/2020 Results for 2:48 AM CDT this procedure are in the results section. COMPLETE BLOOD COUNT W/ AM 08/24/2020 DIFFERENTIAL 2:48 AM CDT BASIC METABOLIC PANEL, AM 08/24/2020 CALCIUM TOTAL 2:48 AM CDT BLOODCULTURE Now 08/24/2020 Results for 2:48 AM CDT this procedure are in the results section. BLOODCULTURE Now 08/23/2020 Results for 11:51 AM CDT this procedure are in the results section. MANUAL DIFFERENTIAL AM 08/23/2020 Results for 2:50 AM CDT this procedure are in the results section. Results CBC AM 08/23/2020 Results for 2:50 AM CDT this procedure are in the results section. FRACTIONATED BILIRUBIN AM 08/23/2020 Resul ts for 2:50 AM CDT this procedure are in the results section. TOTAL PROTEIN AM 08/23/2020 Results for 2:50 AM CDT this procedure are in the results section. ASPARTATE AMINOTRANSFERASE AM 08/23/2020 R esults for 2:50 AM CDT this procedure are in the results section. ALANINE AMINOTRANSFERASE AM 08/23/2020 Res ults for 2:50 AM CDT this procedure are in the results section. ALKALINE PHOSPHATASE AM 08/23/2020 Results for 2:50 AM CDT this procedure are in the results section. ALBUMIN LEVEL AM 08/23/2020 Results for 2:50 AM CDT this procedure are in the results section. CALCIUM LEVEL TOTAL AM 08/23/2020 Results for 2:50 AM CDT this procedure are in the results section. .GLOMERULAR FILTRATION AM 08/23/2020 Resul ts for RATE 2:50 AM CDT this procedure are in the results section. SERUM CREATININE AM 08/23/2020 Results for 2:50 AM CDT this procedure are in the results section. ELECTROLYTE PANEL AM 08/23/2020 Results fo r 2:50 AM CDT this procedure are in the results section. BLOOD UREA NITROGEN AM 08/23/2020 Results for 2:50 AM CDT this procedure are in the results section. GLUCOSE LEVEL AM 08/23/2020 Results for 2:50 AM CDT this procedure are in the results section. HEPATIC FUNCTION PANEL AM 08/23/2020 2:50 AM CDT PHOSPHORUS LEVEL AM 08/23/2020 Results for 2:50 AM CDT this procedure are in the results section. MAGNESIUM LEVEL AM 08/23/2020 Results for 2:50 AM CDT this procedure are in the results section. COMPLETE BLOOD COUNT W/ AM 08/23/2020 DIFFERENTIAL 2:50 AM CDT BASIC METABOLIC PANEL, AM 08/23/2020 CALCIUM TOTAL 2:[address] CHEST ABDOMEN PELVIS W Routine 08/22/2020 Re sults for CONTRAST 8:50 PM CDT this procedure are in the results section. VANCOMYCIN LEVEL TROUGH Timed Study 08/22/2020 Resu lts for 7:25 PM CDT this procedure are in the results section. URINALYSIS MICROSCOPIC Routine 08/22/2020 Resul ts for 1:34 PM CDT this procedure are in the results section. URINALYSIS WITH Now 08/22/2020 Results for MICROSCOPIC IF INDICATED 1:34 PM CDT thi s procedure are in the results section. URINE CULTURE Now 08/22/2020 Results for 1:34 PM CDT this procedure are in the results section. BLOODCULTURE Now 08/22/2020 Results for 11:44 AM CDT this procedure are in the results section. FRACTIONATED BILIRUBIN STAT 08/22/2020 Resul ts for 8:20 AM CDT this procedure are in the results section. TOTAL PROTEIN STAT 08/22/2020 Results for 8:20 AM CDT this procedure are in the results section. ASPARTATE AMINOTRANSFERASE STAT 08/22/2020 R esults for 8:20 AM CDT this procedure are in the results section. ALANINE AMINOTRANSFERASE STAT 08/22/2020 Res ults for 8:20 AM CDT this procedure are in the results section. ALKALINE PHOSPHATASE STAT 08/22/2020 Results for 8:20 AM CDT this procedure are in the results section. CALCIUM LEVEL TOTAL STAT 08/22/2020 Results for 8:20 AM CDT this procedure are in the results section. .GLOMERULAR FILTRATION STAT 08/22/2020 Resul ts for RATE 8:20 AM CDT this procedure are in the results section. SERUM CREATININE STAT 08/22/2020 Results for 8:20 AM CDT this procedure are in the results section. ELECTROLYTE PANEL STAT 08/22/2020 Results fo r 8:20 AM CDT this procedure are in the results section. BLOOD UREA NITROGEN STAT 08/22/2020 Results for 8:20 AM CDT this procedure are in the results section. GLUCOSE LEVEL STAT 08/22/2020 Results for 8:20 AM CDT this procedure are in the results section. MANUAL DIFFERENTIAL STAT 08/22/2020 Results for 8:20 AM CDT this procedure are in the results section. Results CBC STAT 08/22/2020 Results for 8:20 AM CDT this procedure are in the results section. COMPREHENSIVE METABOLIC STAT 08/22/2020 PANEL 8:20 AM CDT COMPLETE BLOOD COUNT W/ STAT 08/22/2020 DIFFERENTIAL 8:20 AM CDT ALBUMIN LEVEL STAT 08/22/2020 Results for 8:20 AM CDT this procedure are in the results section. TMP INTERPRETATION STAT 08/21/2020 Results f or ANTIBODY SCREEN NEGATIVE 8:27 PM CDT thi s procedure are in the results section. CLOT EXPIRATION DATE STAT 08/21/2020 Results for 8:27 PM CDT this procedure are in the results section. URINALYSIS MICROSCOPIC Routine 08/21/2020 Resul ts for 8:27 PM CDT this procedure are in the results section. ANTIBODY SCREEN STAT 08/21/2020 Results for 8:27 PM CDT this procedure are in the results section. MANUAL DIFFERENTIAL STAT 08/21/2020 Results for 8:27 PM CDT this procedure are in the results section. Results CBC STAT 08/21/2020 Results for 8:27 PM CDT this procedure are in the results section. ABORH STAT 08/21/2020 Results for 8:27 PM CDT this procedure are in the results section. FRACTIONATED BILIRUBIN Now 08/21/2020 Resul ts for 8:27 PM CDT this procedure are in the results section. TOTAL PROTEIN Now 08/21/2020 Results for 8:27 PM CDT this procedure are in the results section. ASPARTATE AMINOTRANSFERASE Now 08/21/2020 R esults for 8:27 PM CDT this procedure are in the results section. ALANINE AMINOTRANSFERASE Now 08/21/2020 Res ults for 8:27 PM CDT this procedure are in the results section. ALKALINE PHOSPHATASE Now 08/21/2020 Results for 8:27 PM CDT this procedure are in the results section. ALBUMIN LEVEL Now 08/21/2020 Results for 8:27 PM CDT this procedure are in the results section. CALCIUM LEVEL TOTAL Now 08/21/2020 Results for 8:27 PM CDT this procedure are in the results section. .GLOMERULAR FILTRATION Now 08/21/2020 Resul ts for RATE 8:27 PM CDT this procedure are in the results section. SERUM CREATININE Now 08/21/2020 Results for 8:27 PM CDT this procedure are in the results section. ELECTROLYTE PANEL Now 08/21/2020 Results fo r 8:27 PM CDT this procedure are in the results section. BLOOD UREA NITROGEN Now 08/21/2020 Results for 8:27 PM CDT this procedure are in the results section. GLUCOSE LEVEL Now 08/21/2020 Results for 8:27 PM CDT this procedure are in the results section. URINALYSIS WITH Now 08/21/2020 Results for MICROSCOPIC IF INDICATED 8:27 PM CDT thi s procedure are in the results section. TYPE AND SCREEN STAT 08/21/2020 8:27 PM CDT APTT Now 08/21/2020 Results for 8:27 PM CDT this procedure are in the results section. PROTHROMBIN TIME Now 08/21/2020 Results for 8:27 PM CDT this procedure are in the results section. COMPLETE BLOOD COUNT W/ Now 08/21/2020 DIFFERENTIAL 8:27 PM CDT LACTIC ACID, VENOUS STAT 08/21/2020 Results for 8:27 PM CDT this procedure are in the results section. COMPREHENSIVE METABOLIC Now 08/21/2020 PANEL 8:27 PM CDT PHOSPHORUS LEVEL Now 08/21/2020 Results for 8:27 PM CDT this procedure are in the results section. MAGNESIUM LEVEL Now 08/21/2020 Results for 8:27 PM CDT this procedure are in the results section. URINE CULTURE Now 08/21/2020 Results for 8:27 PM CDT this procedure are in the results section. RESPIRATORY VIRAL PANEL + Now 08/21/2020 Re sults for COVID-19, NASOPHARYNGEAL 8:27 PM CDT thi s procedure SWAB are in the results section. BLOODCULTURE Now 08/21/2020 Results for 8:27 PM CDT this procedure are in the results section. XR CHEST 1 VW Routine 08/21/2020 Results for 8:06 PM CDT this procedure are in the results section. IR NEPHROSTOMY REMOVAL Routine 08/19/2020 Resul ts for UNDER FLUOROSCOPY 2:22 PM CDT this proce dure are in the results section. .GLOMERULAR FILTRATION Routine 08/19/2020 Resul ts for RATE 1:03 PM CDT this procedure are in the results section. SERUM CREATININE Routine 08/19/2020 Results for 1:03 PM CDT this procedure are in the results section. 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 organ VANCOMYCIN LEVEL TROUGH Timed Study 08/07/2020 Resu lts for 6:24 AM CDT this procedure are in the results section. CALCIUM LEVEL TOTAL AM 08/07/2020 Results for 4:41 AM CDT this procedure are in the results section. .GLOMERULAR FILTRATION AM 08/07/2020 Resul ts for RATE 4:41 AM CDT this procedure are in the results section. SERUM CREATININE AM 08/07/2020 Results for 4:41 AM CDT this procedure are in the results section. ELECTROLYTE PANEL AM 08/07/2020 Results fo r 4:41 AM CDT this procedure are in the results section. BLOOD UREA NITROGEN AM 08/07/2020 Results for 4:41 AM CDT this procedure are in the results section. GLUCOSE LEVEL AM 08/07/2020 Results for 4:41 AM CDT this procedure are in the results section. MANUAL DIFFERENTIAL AM 08/07/2020 Results for 4:41 AM CDT this procedure are in the results section. Results CBC AM 08/07/2020 Results for 4:41 AM CDT this procedure are in the results section. VANCOMYCIN LEVEL TROUGH Timed Study 08/07/2020 Resu lts for 4:41 AM CDT this procedure are in the results section. PHOSPHORUS LEVEL AM 08/07/2020 Results for 4:41 AM CDT this procedure are in the results section. MAGNESIUM LEVEL AM 08/07/2020 Results for 4:41 AM CDT this procedure are in the results section. BASIC METABOLIC PANEL, AM 08/07/2020 CALCIUM TOTAL 4:41 AM CDT COMPLETE BLOOD COUNT W/ AM 08/07/2020 DIFFERENTIAL 4:41 AM CDT FRACTIONATED BILIRUBIN STAT 08/06/2020 Resul ts for 3:51 PM CDT this procedure are in the results section. TOTAL PROTEIN STAT 08/06/2020 Results for 3:51 PM CDT this procedure are in the results section. ASPARTATE AMINOTRANSFERASE STAT 08/06/2020 R esults for 3:51 PM CDT this procedure are in the results section. ALANINE AMINOTRANSFERASE STAT 08/06/2020 Res ults for 3:51 PM CDT this procedure are in the results section. ALKALINE PHOSPHATASE STAT 08/06/2020 Results for 3:51 PM CDT this procedure are in the results section. ALBUMIN LEVEL STAT 08/06/2020 Results for 3:51 PM CDT this procedure are in the results section. CALCIUM LEVEL TOTAL STAT 08/06/2020 Results for 3:51 PM CDT this procedure are in the results section. .GLOMERULAR FILTRATION STAT 08/06/2020 Resul ts for RATE 3:51 PM CDT this procedure are in the results section. SERUM CREATININE STAT 08/06/2020 Results for 3:51 PM CDT this procedure are in the results section. ELECTROLYTE PANEL STAT 08/06/2020 Results fo r 3:51 PM CDT this procedure are in the results section. BLOOD UREA NITROGEN STAT 08/06/2020 Results for 3:51 PM CDT this procedure are in the results section. GLUCOSE LEVEL STAT 08/06/2020 Results for 3:51 PM CDT this procedure are in the results section. MANUAL DIFFERENTIAL STAT 08/06/2020 Results for 3:51 PM CDT this procedure are in the results section. Results CBC STAT 08/06/2020 Results for 3:51 PM CDT this procedure are in the results section. PHOSPHORUS LEVEL STAT 08/06/2020 Results for 3:51 PM CDT this procedure are in the results section. MAGNESIUM LEVEL STAT 08/06/2020 Results for 3:51 PM CDT this procedure are in the results section. COMPREHENSIVE METABOLIC STAT 08/06/2020 PANEL 3:51 PM CDT COMPLETE BLOOD COUNT W/ STAT 08/06/2020 DIFFERENTIAL 3:[address] ABDOMEN PELVIS W Routine 08/05/2020 Results for CONTRAST 11:45 PM CDT this procedure are in the results section. URINALYSIS MICROSCOPIC Routine 08/05/2020 Resul ts for 8:11 PM CDT this procedure are in the results section. URINALYSIS WITH Now 08/05/2020 Results for MICROSCOPIC IF INDICATED 8:11 PM CDT thi s procedure are in the results section. URINE CULTURE Now 08/05/2020 Results for 8:11 PM CDT this procedure are in the results section. URINE CULTURE Now 08/05/2020 Results for 8:11 PM CDT this procedure are in the results section. XR CHEST 1 VW Routine 08/05/2020 Results for 6:58 PM CDT this procedure are in the results section. XR ABDOMEN 1 VW PORTABLE Routine 08/05/2020 Res ults for 6:57 PM CDT this procedure are in the results section. RESPIRATORY VIRAL PANEL + Now 08/05/2020 Re sults for COVID-19, NASOPHARYNGEAL 6:39 PM CDT thi s procedure SWAB are in the results section. BLOODCULTURE STAT 08/05/2020 Results for 6:39 PM CDT this procedure are in the results section. ANION GAP Routine 08/05/2020 Results for 6:37 PM CDT this procedure are in the results section. .GLOMERULAR FILTRATION Now 08/05/2020 Resul ts for RATE 6:37 PM CDT this procedure are in the results section. SERUM CREATININE Now 08/05/2020 Results for 6:37 PM CDT this procedure are in the results section. MANUAL DIFFERENTIAL STAT 08/05/2020 Results for 6:37 PM CDT this procedure are in the results section. Results CBC STAT 08/05/2020 Results for 6:37 PM CDT this procedure are in the results section. HC PROCALCITONIN (PCT) Now 08/05/2020 Resul ts for 6:37 PM CDT this procedure are in the results section. C REACTIVE PROTEIN Now 08/05/2020 Results f or 6:37 PM CDT this procedure are in the results section. LACTIC ACID, VENOUS Now 08/05/2020 Results for 6:37 PM CDT this procedure are in the results section. LACTATE DEHYDROGENASE Now 08/05/2020 Result s for 6:37 PM CDT this procedure are in the results section. FRACTIONATED BILIRUBIN Now 08/05/2020 Resul ts for 6:37 PM CDT this procedure are in the results section. ASPARTATE AMINOTRANSFERASE Now 08/05/2020 R esults for 6:37 PM CDT this procedure are in the results section. ALANINE AMINOTRANSFERASE Now 08/05/2020 Res ults for 6:37 PM CDT this procedure are in the results section. ALKALINE PHOSPHATASE Now 08/05/2020 Results for 6:37 PM CDT this procedure are in the results section. ALBUMIN LEVEL Now 08/05/2020 Results for 6:37 PM CDT this procedure are in the results section. PHOSPHORUS LEVEL Now 08/05/2020 Results for 6:37 PM CDT this procedure are in the results section. MAGNESIUM LEVEL Now 08/05/2020 Results for 6:37 PM CDT this procedure are in the results section. POTASSIUM LEVEL Now 08/05/2020 Results for 6:37 PM CDT this procedure are in the results section. SODIUM LEVEL Now 08/05/2020 Results for 6:37 PM CDT this procedure are in the results section. GLUCOSE, RANDOM Now 08/05/2020 Results for 6:37 PM CDT this procedure are in the results section. BLOOD UREA NITROGEN Now 08/05/2020 Results for 6:37 PM CDT this procedure are in the results section. SERUM CREATININE Now 08/05/2020 6:37 PM CDT CARBON DIOXIDE LEVEL Now 08/05/2020 Results for 6:37 PM CDT this procedure are in the results section. CHLORIDE LEVEL Now 08/05/2020 Results for 6:37 PM CDT this procedure are in the results section. CALCIUM LEVEL TOTAL Now 08/05/2020 Results for 6:37 PM CDT this procedure are in the results section. COMPLETE BLOOD COUNT W/ Now 08/05/2020 DIFFERENTIAL 6:37 PM CDT BLOODCULTURE Now 08/05/2020 Results for 6:37 PM CDT this procedure are in the results section. 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 organ ASPARTATE AMINOTRANSFERASE Routine 07/29/2020 Primary R esults for 1:25 PM CDT urothelial this procedure carcinoma of are in the overlapping results lesion of urinary section. organ ALANINE AMINOTRANSFERASE Routine 07/29/2020 Primary Res ults for 1:25 PM CDT urothelial this procedure carcinoma of are in the overlapping results lesion of urinary section. organ ALKALINE PHOSPHATASE Routine 07/29/2020 Primary Results for 1:25 PM CDT urothelial this procedure carcinoma of are in the overlapping results lesion of urinary section. organ ALBUMIN LEVEL Routine 07/29/2020 Primary Results for 1:25 PM CDT urothelial this procedure carcinoma of are in the overlapping results lesion of urinary section. organ CALCIUM LEVEL TOTAL Routine 07/29/2020 Primary Results for 1:25 PM CDT urothelial this procedure carcinoma of are in the overlapping results lesion of urinary section. organ .GLOMERULAR FILTRATION Routine 07/29/2020 Primary Resul ts for RATE 1:25 PM CDT urothelial this procedure carcinoma of are in the overlapping results lesion of urinary section. organ SERUM CREATININE Routine 07/29/2020 Primary Results for 1:25 PM CDT urothelial this procedure carcinoma of are in the overlapping results lesion of urinary section. organ ELECTROLYTE PANEL Routine 07/29/2020 Primary Results fo r 1:25 PM CDT urothelial this procedure carcinoma of are in the overlapping results lesion of urinary section. organ BLOOD UREA NITROGEN Routine 07/29/2020 Primary Results for 1:25 PM CDT urothelial this procedure carcinoma of are in the overlapping results lesion of urinary section. organ GLUCOSE LEVEL Routine 07/29/2020 Primary Results for 1:25 PM CDT urothelial this procedure carcinoma of are in the overlapping results lesion of urinary section. organ COMPREHENSIVE METABOLIC Routine 07/29/2020 Primary PANEL 1:25 PM CDT urothelial carcinoma of overlapping lesion of urinary organ MAGNESIUM LEVEL Routine 07/29/2020 Primary Results for 1:25 PM CDT urothelial this procedure carcinoma of are in the overlapping results lesion of urinary section. organ COMPLETE BLOOD COUNT W/ Routine 07/29/2020 Primary DIFFERENTIAL 1:25 PM CDT urothelial carcinoma of overlapping lesion of urinary organ LIPASE LEVEL Routine 07/29/2020 Primary Results for 1:25 PM CDT urothelial this procedure carcinoma of are in the overlapping results lesion of urinary section. organ AMYLASE LEVEL Routine 07/29/2020 Primary Results for 1:25 PM CDT urothelial this procedure carcinoma of are in the overlapping results lesion of urinary section. organ FREE THYROXINE Routine 07/29/2020 Primary Results for 1:25 PM CDT urothelial this procedure carcinoma of are in the overlapping results lesion of urinary section. organ THYROID STIMULATING Routine 07/29/2020 Primary Results for HORMONE 1:25 PM CDT urothelial this procedure carcinoma of are in the overlapping results lesion of urinary section. organ FRACTIONATED BILIRUBIN Routine 07/16/2020 Primary Resul ts for 9:25 AM CDT urothelial this procedure carcinoma of are in the overlapping results lesion of urinary section. organ TOTAL PROTEIN Routine 07/16/2020 Primary Results for 9:25 AM CDT urothelial this procedure carcinoma of are in the overlapping results lesion of urinary section. organ ASPARTATE AMINOTRANSFERASE Routine 07/16/2020 Primary R esults for 9:25 AM CDT urothelial this procedure carcinoma of are in the overlapping results lesion of urinary section. organ ALANINE AMINOTRANSFERASE Routine 07/16/2020 Primary Res ults for 9:25 AM CDT urothelial this procedure carcinoma of are in the overlapping results lesion of urinary section. organ ALKALINE PHOSPHATASE Routine 07/16/2020 Primary Results for 9:25 AM CDT urothelial this procedure carcinoma of are in the overlapping results lesion of urinary section. organ ALBUMIN LEVEL Routine 07/16/2020 Primary Results for 9:25 AM CDT urothelial this procedure carcinoma of are in the overlapping results lesion of urinary section. organ CALCIUM LEVEL TOTAL Routine 07/16/2020 Primary Results for 9:25 AM CDT urothelial this procedure carcinoma of are in the overlapping results lesion of urinary section. organ .GLOMERULAR FILTRATION Routine 07/16/2020 Primary Resul ts for RATE 9:25 AM CDT urothelial this procedure carcinoma of are in the overlapping results lesion of urinary section. organ SERUM CREATININE Routine 07/16/2020 Primary Results for 9:25 AM CDT urothelial this procedure carcinoma of are in the overlapping results lesion of urinary section. organ ELECTROLYTE PANEL Routine 07/16/2020 Primary Results fo r 9:25 AM CDT urothelial this procedure carcinoma of are in the overlapping results lesion of urinary section. organ BLOOD UREA NITROGEN Routine 07/16/2020 Primary Results for 9:25 AM CDT urothelial this procedure carcinoma of are in the overlapping results lesion of urinary section. organ GLUCOSE LEVEL Routine 07/16/2020 Primary Results for 9:25 AM CDT urothelial this procedure carcinoma of are in the overlapping results lesion of urinary section. organ MANUAL DIFFERENTIAL Routine 07/16/2020 Primary Results for 9:25 AM CDT urothelial this procedure carcinoma of are in the overlapping results lesion of urinary section. organ Results CBC Routine 07/16/2020 Primary Results for 9:25 AM CDT urothelial this procedure carcinoma of are in the overlapping results lesion of urinary section. organ COMPREHENSIVE METABOLIC Routine 07/16/2020 Primary PANEL 9:25 AM CDT urothelial carcinoma of overlapping lesion of urinary organ MAGNESIUM LEVEL Routine 07/16/2020 Primary Results for 9:25 AM CDT urothelial this procedure carcinoma of are in the overlapping results lesion of urinary section. organ COMPLETE BLOOD COUNT W/ Routine 07/16/2020 Primary DIFFERENTIAL 9:25 AM CDT urothelial carcinoma of overlapping lesion of urinary organ IR NEPHROSTOMY EXCHANGE Routine 07/08/2020 Personal history Results for 12:25 PM CDT of malignant this procedure neoplasm of are in the bladder results section. FRACTIONATED BILIRUBIN Routine 07/02/2020 Primary Resul ts for 1:00 PM CDT urothelial this procedure carcinoma of are in the overlapping results lesion of urinary section. organ TOTAL PROTEIN Routine 07/02/2020 Primary Results for 1:00 PM CDT urothelial this procedure carcinoma of are in the overlapping results lesion of urinary section. organ ASPARTATE AMINOTRANSFERASE Routine 07/02/2020 Primary R esults for 1:00 PM CDT urothelial this procedure carcinoma of are in the overlapping results lesion of urinary section. organ ALANINE AMINOTRANSFERASE Routine 07/02/2020 Primary Res ults for 1:00 PM CDT urothelial this procedure carcinoma of are in the overlapping results lesion of urinary section. organ ALKALINE PHOSPHATASE Routine 07/02/2020 Primary Results for 1:00 PM CDT urothelial this procedure carcinoma of are in the overlapping results lesion of urinary section. organ ALBUMIN LEVEL Routine 07/02/2020 Primary Results for 1:00 PM CDT urothelial this procedure carcinoma of are in the overlapping results lesion of urinary section. organ CALCIUM LEVEL TOTAL Routine 07/02/2020 Primary Results for 1:00 PM CDT urothelial this procedure carcinoma of are in the overlapping results lesion of urinary section. organ .GLOMERULAR FILTRATION Routine 07/02/2020 Primary Resul ts for RATE 1:00 PM CDT urothelial this procedure carcinoma of are in the overlapping results lesion of urinary section. organ SERUM CREATININE Routine 07/02/2020 Primary Results for 1:00 PM CDT urothelial this procedure carcinoma of are in the overlapping results lesion of urinary section. organ ELECTROLYTE PANEL Routine 07/02/2020 Primary Results fo r 1:00 PM CDT urothelial this procedure carcinoma of are in the overlapping results lesion of urinary section. organ BLOOD UREA NITROGEN Routine 07/02/2020 Primary Results for 1:00 PM CDT urothelial this procedure carcinoma of are in the overlapping results lesion of urinary section. organ GLUCOSE LEVEL Routine 07/02/2020 Primary Results for 1:00 PM CDT urothelial this procedure carcinoma of are in the overlapping results lesion of urinary section. organ MANUAL DIFFERENTIAL Routine 07/02/2020 Primary Results for 1:00 PM CDT urothelial this procedure carcinoma of are in the overlapping results lesion of urinary section. organ Results CBC Routine 07/02/2020 Primary Results for 1:00 PM CDT urothelial this procedure carcinoma of are in the overlapping results lesion of urinary section. organ COMPREHENSIVE METABOLIC Routine 07/02/2020 Primary PANEL 1:00 PM CDT urothelial carcinoma of overlapping lesion of urinary organ MAGNESIUM LEVEL Routine 07/02/2020 Primary Results for 1:00 PM CDT urothelial this procedure carcinoma of are in the overlapping results lesion of urinary section. organ COMPLETE BLOOD COUNT W/ Routine 07/02/2020 Primary DIFFERENTIAL 1:00 PM CDT urothelial carcinoma of overlapping lesion of urinary organ FRACTIONATED BILIRUBIN Routine 06/18/2020 Primary Resul ts for 8:57 AM CDT urothelial this procedure carcinoma of are in the overlapping results lesion of urinary section. organ TOTAL PROTEIN Routine 06/18/2020 Primary Results for 8:57 AM CDT urothelial this procedure carcinoma of are in the overlapping results lesion of urinary section. organ ASPARTATE AMINOTRANSFERASE Routine 06/18/2020 Primary R esults for 8:57 AM CDT urothelial this procedure carcinoma of are in the overlapping results lesion of urinary section. organ ALANINE AMINOTRANSFERASE Routine 06/18/2020 Primary Res ults for 8:57 AM CDT urothelial this procedure carcinoma of are in the overlapping results lesion of urinary section. organ ALKALINE PHOSPHATASE Routine 06/18/2020 Primary Results for 8:57 AM CDT urothelial this procedure carcinoma of are in the overlapping results lesion of urinary section. organ ALBUMIN LEVEL Routine 06/18/2020 Primary Results for 8:57 AM CDT urothelial this procedure carcinoma of are in the overlapping results lesion of urinary section. organ CALCIUM LEVEL TOTAL Routine 06/18/2020 Primary Results for 8:57 AM CDT urothelial this procedure carcinoma of are in the overlapping results lesion of urinary section. organ .GLOMERULAR FILTRATION Routine 06/18/2020 Primary Resul ts for RATE 8:57 AM CDT urothelial this procedure carcinoma of are in the overlapping results lesion of urinary section. organ SERUM CREATININE Routine 06/18/2020 Primary Results for 8:57 AM CDT urothelial this procedure carcinoma of are in the overlapping results lesion of urinary section. organ ELECTROLYTE PANEL Routine 06/18/2020 Primary Results fo r 8:57 AM CDT urothelial this procedure carcinoma of are in the overlapping results lesion of urinary section. organ BLOOD UREA NITROGEN Routine 06/18/2020 Primary Results for 8:57 AM CDT urothelial this procedure carcinoma of are in the overlapping results lesion of urinary section. organ GLUCOSE LEVEL Routine 06/18/2020 Primary Results for 8:57 AM CDT urothelial this procedure carcinoma of are in the overlapping results lesion of urinary section. organ MANUAL DIFFERENTIAL Routine 06/18/2020 Primary Results for 8:57 AM CDT urothelial this procedure carcinoma of are in the overlapping results lesion of urinary section. organ Results CBC Routine 06/18/2020 Primary Results for 8:57 AM CDT urothelial this procedure carcinoma of are in the overlapping results lesion of urinary section. organ COMPREHENSIVE METABOLIC Routine 06/18/2020 Primary PANEL 8:57 AM CDT urothelial carcinoma of overlapping lesion of urinary organ MAGNESIUM LEVEL Routine 06/18/2020 Primary Results for 8:57 AM CDT urothelial this procedure carcinoma of are in the overlapping results lesion of urinary section. organ COMPLETE BLOOD COUNT W/ Routine 06/18/2020 Primary DIFFERENTIAL 8:57 AM CDT urothelial carcinoma of overlapping lesion of urinary organ after 06/15/[address] Chest Abdomen Pelvis with Contrast (06/07/2021 12:52 PM CDT)Only the most recent of6 resultswithin the time period is included. Anatomical Region Laterality Modality Abdomen, Pelvis, Chest Computed Tomograp hy Specimen Impressions [id number] - 06/10/2021 9:37 AM CDT 1. Retroperitoneal and pelvic nodes ap pear stable to minimally more prominent when compared to 03/31/2021. 2. Osseous metastases appear stable. 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 Findings: Chest: A right-sided Port-A-Cath extends to the retrocaval junction. There are no enlarged lymph nodes identi fied in the chest. Small fatty replaced left axillary nodes appear reactive. Diffuse emphysematous changes are again seen. There is a calcified granuloma in the right upper lobe and a small focus of scarring at the right lung apex that are stable. No new or enlarging pulmonary nodules are identified. Abdomen and pelvis: No suspicious liver lesions are identifi ed. There are multiple splenic granulomata. The pancreas is unremarkable. There is n odularity of both adrenal glands that is stable, likely small adenomas. The kidneys function without hydronephro sis. The left kidney is decompressed with a percutaneous nephrostomy catheter. There is mild diffuse thickening of the urinary bladder and a right-sided bladder diverticulum is noted. Small retroperitoneal and pelvic lymph n odes are stable to minimally more prominent. A centrally necrotic left external iliac node measures approximately 1.3 x 1.2 cm (series 6 image 270) compared to 1.2 x 1.1 cm previously. A right common iliac node measures appro ximately 1.6 x 1.5 cm (series 6 image 260) compared to 1.5 x 1.3 cm previously. Sclerotic osseous metastases in the spin e and bones of the pelvis appear similar by CT. 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 Findings: Chest: A right-sided Port-A-Cath extends to the retrocaval junction. There are no enlarged lymph nodes identi fied in the chest. Small fatty replaced left axillary nodes appear reactive. Diffuse emphysematous changes are again seen. There is a calcified granuloma in the right upper lobe and a small focus of scarring at the right lung apex that are stable. No new or enlarging pulmonary nodules are identified. Abdomen and pelvis: No suspicious liver lesions are identifi ed. There are multiple splenic granulomata. The pancreas is unremarkable. There is n odularity of both adrenal glands that is stable, likely small adenomas. The kidneys function without hydronephro sis. The left kidney is decompressed with a percutaneous nephrostomy catheter. There is mild diffuse thickening of the urinary bladder and a right-sided bladder diverticulum is noted. Small retroperitoneal and pelvic lymph n odes are stable to minimally more prominent. A centrally necrotic left external iliac node measures approximately 1.3 x 1.2 cm (series 6 image 270) compared to 1.2 x 1.1 cm previously. A right common iliac node measures appro ximately 1.6 x 1.5 cm (series 6 image 260) compared to 1.5 x 1.3 cm previously. Sclerotic osseous metastases in the spin e and bones of the pelvis appear similar by CT. IMPRESSION: 1. Retroperitoneal and pelvic nodes toni ear stable to minimally more prominent when compared to 03/31/2021. 2. Osseous metastases appear stable. Performing Organization Address City/State/ZIP Code Phon e Number [id number] [place] Bone Scan Whole Body (06/06/2021 12:31 PM CDT)Only the most recent of5 resultswithin the time period is included. Anatomical Region Laterality Modality Whole Body Nuclear Medicine Specimen Impressions [id number] - 06/06/2021 3:41 PM CDT Multifocal osseous metastatic disease is slightly more conspicuous in intensity since the prior study dated 03/28/2021, to be followed. Narrative [id number] - 06/06/2021 3:41 PM CDT FULL RESULT: Examination: Whole-Body Bone Scan, 022 12:31 PM Clinical History: 71-year-old male with urothelial carcinoma Indication: Evaluation for osseous metas tases Comparison: Bone scan dated 03/28/2021, C T chest, abdomen/pelvis dated 03/31/2021 Technique: Following the intravenous adm inistration of 21.7 mCi of technetium- 99m MDP, anterior and posterior delayed whole body planar images were acquired. Additional spot images of the left thigh were obtained. Findings: Stable abnormal radiotracer ac tivity is again identified within the sacrum, multiple sites in the pelvis and right proximal femur, slightly more conspicuous in intensity since the prior study. Mild activity in the left supraorbital r idge is nonspecific but likely benign. Physiologic excretion of tracer is seen through the kidneys, bladder and the right percutaneous nephrostomy tubing. Scattered degenerative changes are noted. Procedure Note Yenni Medina MD - 06/06/2021 FULL RESULT: Examination: Whole-Body Bone Scan, 022 12:31 PM Clinical History: 71-year-old male with urothelial carcinoma Indication: Evaluation for osseous metas tases Comparison: Bone scan dated 03/28/2021, C T chest, abdomen/pelvis dated 03/31/2021 Technique: Following the intravenous adm inistration of 21.7 mCi of technetium- 99m MDP, anterior and posterior delayed whole body planar images were acquired. Additional spot images of the left thigh were obtained. Findings: Stable abnormal radiotracer ac tivity is again identified within the sacrum, multiple sites in the pelvis and right proximal femur, slightly more conspicuous in intensity since the prior study. Mild activity in the left supraorbital r idge is nonspecific but likely benign. Physiologic excretion of tracer is seen through the kidneys, bladder and the right percutaneous nephrostomy tubing. Scattered degenerative changes are noted. IMPRESSION: Multifocal osseous metastatic disease is slightly more conspicuous in intensity since the prior study dated 03/28/2021, to be followed. Performing Organization Address City/State/[facility] Code Phon e Number [id number] (ABNORMAL) .Serum Creatinine (06/06/2021 9:58 AM CDT)Only the most recent of38 resultswithin the time period is included. [facility] Creatinine 1.21 (H)Comment: 0.67 - 1.17 mg/dL [facility] Testing Performed at [facility] [employer], [address] [place] [address], [address], [place] [address] Specimen Blood Performing Organization Address City/State/[facility] Phon e Number [facility] [address] [place] [address] [address] (ABNORMAL) .CBC (06/06/2021 9:58 AM CDT)Only the most recent of37 resultswithin the time period is included. [facility] WBC 7.1 4.0 - 11.0 K/uL [facility] RBC 3.34 (L) 4.50 - 6.00 [facility] M/uL Hgb 10.2 (L)Comment: As 14.0 - 18.0 [facility] part of CBC or as an gm/dL individual orderable testing performed at [facility], [address] [place] [address], [address], [place] [address] Hct 32.7 (L)Comment: As 40.0 - 54.0 % [facility] part of CBC or as an individual orderable testing performed at [facility], [address] [place] [address], [address], [place] [address] MCV 98 82 - 98 fL [facility] MCH 30.5 27.0 - 31.0 pg [facility] MCHC 31.2 31.0 - 36.0 [facility] gm/dL RDW-SD 48.3 (H) 35.1 - 46.3 fL [facility] RDW-CV 13.5 12.0 - 15.5 % [facility] Platelet count 221Comment: As part 140 - 440 K/uL [facility] of CBC or as an individual orderable testing performed at [facility], [facility] [facility], [address], [place] [address] MPV 10.0 4.0 - 10.4 fL [facility] INRBC 0.0 <=0.0 % [facility] Comment: The INRBC (instrument NRBC) value reflects the enumera tion of nucleated red blood cells contained in a 200uL samp le of whole blood analyzed by the instrument. This value may differ from the NRBC value reported in a manual differ ential, which is based on a 100 cell differential. As part of CBC testing performed at [facility] [address], [address], [place] [address] Specimen Blood Performing Organization Address [facility]/State/ZIP Code Phon e Number [facility] [address] [place] [address] [address] (ABNORMAL) Glomerular Filtration Rate (06/06/2021 9:58 AM CDT)Only the most recent of38 resultswithin the time period is included. [facility] eGFR-AA 68 >=60 mL/min/1.73 [facility] Comment: sq. m Normal eGFR >= 60 mL/min/1.73 m2 Note: The eGFR is calculated using the CKD-EPI equation. The eGFR declines with age. eGFR <60 mL/min/1.73 m2 is considered as "decreased". This equation should only be used for patients 18 and older. According to the National dney Foundation's Kidney Disease Outcome Quality Initiative (KDOQI) classification and 2012 Kidney Disease Improving Global Outcomes (KDIGO) Clinical Practice Guideline, the stage of CKD should be categorized based on estimated GFR. Stage Description GFR mL/min/1.73 m2 1 Normal or high GFR >=90 2 Mildly decreased GFR 60-89 3a Mildly to moderately decreased GFR 45-59 3b Moderately to severely decreased GFR 30-44 4 Severely decreased GFR 15-29 5 Kidney failure <15 Testing Performed at [facility] [employer] [facility], [address], [address], [place] [address] eGFR-SANTOS 59 (L) >=60 mL/min/1.73 [facility] Comment: sq. m Normal eGFR >= 60 mL/min/1.73 m2 Note: The eGFR is calculated using the CKD-EPI equation. The eGFR declines with age. eGFR <60 mL/min/1.73 m2 is considered as "decreased". This equation should only be used for patients 18 and older. According to the National dney Foundation's Kidney Disease Outcome Quality Initiative (KDOQI) classification and 2012 Kidney Disease Improving Global Outcomes (KDIGO) Clinical Practice Guideline, the stage of CKD should be categorized based on estimated GFR. Stage Description GFR mL/min/1.73 m2 1 Normal or high GFR >=90 2 Mildly decreased GFR 60-89 3a Mildly to moderately decreased GFR 45-59 3b Moderately to severely decreased GFR 30-44 4 Severely decreased GFR 15-29 5 Kidney failure <15 Testing Performed at [facility] [facility], [address], [address], [place] [address] Specimen Blood Performing Organization Address [facility] Phon e Number [facility] [address] [place] [address] [address] Fractionated Bilirubin (06/06/2021 9:58 AM CDT)Only the most recent of33 resultswithin the time period is included. Pathologist Sig dianna Bili Total <0.3 <=1.2 mg/dL [facility] Comment: Direct and indirect bilirubi n will not be reported when Total bilirubin result is <0.3 mg/dL Indocyanine Green (ICG) may cause falsely elevated bilirubin results. Total and direct bilirubin must not be measured from samples containing indocyanine green. False elevation of total luc irubin can be seen in patients with IgG concentrations above 28 g/L. Testing Performed at [facility] [facility], [address] [place] [address], [address], [place] [address] Specimen Blood Performing Organization Address [facility] e Number [facility] [address] [place] [address] [address] ACTH (06/06/2021 9:58 AM CDT) Pathologist Sig dianna ACTH 8 7 - 63 pg/mL [facility] Comment: [facility] Results greater than 1826 pg /mL may not be reliable due to matrix effect with extended dilution as it exceeds the reference and instruction librarian's recommended limit. ACTH reference intervals are established for the morni ng hours from 7-10 am. Due to the circadian rhythm of ACTH levels in plasma, th e sample collection time must be noted. Caution should be exercised when interpreting such values and done in conjunction with clinical context. Specimen Blood Narrative [facility] - 2 11:50 AM CDT This lab cannot be scheduled at the following locations due to collection/proccessing restrictions: [place] - REGLC DIAG LAB CTR [place] - REGSL DIAG LAB CTR [place] - REGWL DIAG LAB CTR [facility] - REGWH DAIG LAB CTR DI [facility] - DI DIAG LAB CTR [place] - CABI DIAG LAB CTR Performing Organization Address City/[facility] Phon e Number [facility] CANCER Unless otherwise noted, [place] [address] CENTER all lab tests performed by: Division of Pathology and Laboratory Medicine [address] [place] [address] Jessa (ABNORMAL) Differential (06/06/2021 9:58 AM CDT)Only the most recent of37 resultswithin the time period is included. Neutrophil % 64.6Comment: As part 42.0 - 66.0 % [facility] of Differential performed at [facility], [address] [place] [address], [address], [place] [address] Lymphocyte % 21.6 (L) 24.0 - 44.0 % [facility] Monocyte % 11.6 (H) 2.0 - 7.0 % [facility] Eosinophil % 1.4 1.0 - 4.0 % [facility] Basophil % 0.4 0.0 - 1.0 % [facility] IGRE % 0.4 0.0 - 0.4 % [facility] Comment: IGRE % count includes Metamyelocytes, Myelocytes, and Promyelocytes. As part of Differential perf ormed at [facility], [address], [address], [place] [address] Neutrophil Abs 4.60 1.70 - 7.30 [facility] K/uL Lymphocyte Abs 1.54 1.00 - 4.80 [facility] K/uL Monocyte Abs 0.83 (H) 0.08 - 0.70 [facility] K/uL Eosinophil Abs 0.10 0.04 - 0.40 [facility] K/uL Basophil Abs 0.03 0.00 - 0.10 [facility] K/uL IG Abs 0.03 0.00 - 0.04 [facility] K/uL Specimen Blood Performing Organization Address City/State/ZIP Code Phon e Number [facility] [address] [place] [address]. [place] [address] [address] (ABNORMAL) Sed Rate (06/06/2021 9:58 AM CDT)Only the most recent of2 results within the time period is included. Pathologist Sig nature Sed Rate 90 (H) 0 - 9 mm/hr [facility] CANCER CENTER Specimen Blood Performing Organization Address City/State/ZIP Code Phon e Number [facility] CANCER Unless otherwise noted, [place] [address] CENTER all lab tests performed by: Division of Pathology and Laboratory Medicine [address] [place] [address] [place] CRP (06/06/2021 9:58 AM CDT)Only the most recent of3 resultswithin the time period is included. Pathologist Sig [employer] Level User [place] CRP 43.45 mg/L [facility] Comment: CANCER CENTER Reference ranges for HS CRP assay are as follows: Reference ranges when used to assess cardiac risk: <1.00 mg/L Low cardiovascular risk 1.00-3.00 mg/L Average cardiovascular risk >3.00 mg/L High cardiovascular risk. Reference ranges when used to assess inflammatory resp onses: Less than or equal to 10.00 mg/L. Specimen Blood Performing Organization Address [facility] Phon e Number [facility] CANCER Unless otherwise noted, [place] [address] CENTER all lab tests performed by: Division of Pathology and Laboratory Medicine [address] [place] (ABNORMAL) BUN (06/06/2021 9:58 AM CDT)Only the most recent of37 resultswithin the time period is included. Pathologist Sig [employer] Level User [place] BUN 35 (H)Comment: Testing 6 - 23 mg/dL [facility] Performed at [facility] Lab Yarn Washer [facility], [address], [address], [place] [address] Specimen Blood Performing Organization Address [facility] Phon e Number [facility] [address] [facility] [place] [address] [address] ALT (06/06/2021 9:58 AM CDT)Only the most recent of33 resultswithin the time period is included. Pathologist [facility] [place] Level User [place] ALT 15Comment: Testing Performed <=41 U/L [facility] at [facility] Lab Yarn [facility]her [facility], [address], [address], [place] [address] Specimen Blood Performing Organization Address [facility] Phon e Number [facility] [address] [place] [place] [address] [address] Aspartate Aminotransferase (06/06/2021 9:58 AM CDT)Only the most recent of33 resultswithin the time period is included. Pathologist Sig [employer] [place] Level User [place] AST 16Comment: Testing Performed <=40 U/L [facility] at [facility] Lab [facility], [address], [address], [place] [address] Specimen Blood Performing Organization Address [facility] Phon e Number [facility] [address] [place] [address] [address] TSH (06/06/2021 9:58 AM CDT)Only the most recent of17 resultswithin the time period is included. Pathologist Sig [facility] TSH 1.95 0.27 - 4.20 [facility] Comment: mcunit/mL Note: New Methodology and Reference Ra nge change effective 06/24/2017 at 1400 Testing Performed at [facility] Lab Yarn [facility]her [facility], [address], [address], [place] [address] Specimen Blood Performing Organization Address [facility] Phon e Number [facility] [address] [place] [address] [address] Free T4 (06/06/2021 9:58 AM CDT)Only the most recent of17 resultswithin the time period is included. Pathologist Sig [facility] T4 Free 1.10Comment: Testing 0.93 - 1.70 ng/dL [facility] Performed at [facility] Lab Y[facility]her [facility], [address], [address], [place] [address] Specimen Blood Performing Organization Address [facility] Phon e Number [facility] [address] [place] [address] [address] Total Protein (06/06/2021 9:58 AM CDT)Only the most recent of32 resultswithin the time period is included. Pathologist [facility] Total Protein 7.2Comment: Testing 6.4 - 8.3 g/dL [facility] Performed at [facility] Lab Y[facility], [address], [address], [place] [address] Specimen Blood Performing Organization Address [facility] Phon e Number [facility] [address] [place] [address] [address] Alkaline Phosphatase (06/06/2021 9:58 AM CDT)Only the most recent of33 results within the time period is included. Pathologist Sig [facility] Alk Phos 85Comment: Testing 40 - 129 U/L [facility] Performed at [facility] Lab Y[facility], [address], [address], [place] [address] Specimen Blood Performing Organization Address [facility] Phon e Number [facility] [address] [place] [address] [address] Magnesium Level (06/06/2021 9:58 AM CDT)Only the most recent of35 resultswithin the time period is included. Pathologist Sig [facility] Magnesium 2.1Comment: Testing 1.6 - 2.6 mg/dL [facility] Performed at [facility] Lab Y[facility], [address], [address], [place] [address] Specimen Blood Performing Organization Address [facility] e Number [facility] [address] [place] [address]. [place] [address] [address] Lipase Level (06/06/2021 9:58 AM CDT)Only the most recent of16 resultswithin the time period is included. Pathologist Sig [facility] Lipase Lvl 30Comment: Testing 13 - 60 U/L [facility] Performed at [facility] Lab [facility], [address] [place] [address], [address], [place] [address] Specimen Blood Performing Organization Address [facility] e Number [facility] [address] [place] [address]. [place] [address] [address] (ABNORMAL) Glucose Level (06/06/2021 9:58 AM CDT)Only the most recent of36 resultswithin the time period is included. Pathologist Sig [facility] Glucose Level 119 (H) 70 - 99 mg/dL [facility] Comment: Effective 10/02/15, the gluco se reference intervals have been updated based on [place] [employer] guidelines (Standards of Medical Care in Diabetes 2016. Diabetes Care 2016; 39: S13-S22). Fasting blood glucose: Normal: 70-99 mg/dL Impaired fasting glucose (in creased risk for diabetes or pre-diabetes): 100- 125 mg/dL Diabetes mellitus: >/=126 mg/dL Random blood glucose: Normal: 70-199 mg/dL Note: Random glucose >100 mg/dL is assoc iated with increased risk for diabetes Testing Performed at [facility] Lab Y[facility], [address] [place] [address], [address], [place] [address] Specimen Blood Performing Organization Address [facility] Phon e Number [facility] [address] [place] [address] [address] Cortisol, Total (06/06/2021 9:58 AM CDT) Pathologist Sig nature Cortisol 14.49 4.80 - 19.50 [facility] Comment: mcg/dL Cortisol reference intervals are established for the morning hours from 6-10 am and afternoon hours 4-8 pm. Due to circadian rhythm of cortisol levels in serum and plasma, the sample collection time must be noted. Caution should be exercised when interpreting such values and done in conjunction with clinical context. Serum Cortisol Reference Ranges: Morning (6-10am) (4.8 - 19.5) Afternoon (4-8pm) (2.5 - 11.9) Testing Performed at [facility], [facility], [address], [place] [address] Specimen Blood Performing Organization Address [facility] Phon e Number [facility] [address] [place] [address]. [place] [address] [address] Calcium Level (06/06/2021 9:58 AM CDT)Only the most recent of37 resultswithin the time period is included. Pathologist Sig [facility] Calcium Lvl 8.8Comment: Testing 8.4 - 10.2 mg/dL [facility] Performed at [facility], [address], [address], [place] [address] Specimen Blood Performing Organization Address [facility] Phon e Number [facility] [address] [place] [address]. [place] [address] [address] (ABNORMAL) Amylase Level (06/06/2021 9:58 AM CDT)Only the most recent of16 resultswithin the time period is included. Pathologist Sig [facility] Amylase Lvl 117 (H)Comment: Testing 28 - 100 U/L [facility] Performed at [facility], [address], [address], [place] [address] Specimen Blood Performing Organization Address [facility] Phon e Number [facility] [address] [place] [address]. [place] [address] [address] Albumin Level (06/06/2021 9:58 AM CDT)Only the most recent of33 resultswithin the time period is included. Pathologist Sig [facility] Albumin Lvl 3.8Comment: Testing 3.5 - 5.2 gm/dL [facility] Performed at [facility], [address], [address], [place] [address] Specimen Blood Performing Organization Address City/State/ZIP Code Phon e Number [facility] [address] [place] [address] [address] Electrolyte Panel (06/06/2021 9:58 AM CDT)Only the most recent of36 results within the time period is included. [facility] Sodium Lvl 140Comment: Testing 136 - 145 mEq/L [facility] Performed at [facility] Lab [facility], [address], [place] [address] Potassium Lvl 4.6Comment: Testing 3.5 - 5.1 mEq/L [facility] Performed at [facility] Lab [facility], [address], [place] [id number] Chloride 107Comment: Testing 98 - 107 mEq/L [facility] Performed at [facility] Lab Y[facility], [address], [place] [id number] CO2 23Comment: Testing 22 - 29 mEq/L [facility] Performed at [facility] Lab [facility], [address], [place] [address] Anion Gap 10Comment: Testing 4 - 14 mEq/L [facility] Performed at [facility] Lab Y[facility], [address], [place] [address] Specimen Blood Performing Organization Address City/State/ZIP [facility] Phon e Number [facility] [address] [place] 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 These are stable going back to January 2018. 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 These findings are stable and unchan ged from prior studies going back to CT abdomen pelvis January 13, 2018 and consistent with chronic atrophic changes related to patient's paralysis and secondary underdevelopment/hypoplastic changes in the right-sided pelvis, bones femur and adjacent buttocks and thigh soft tissues. Contrast within the large bowel distenti on from prior oral contrast media obscuring detail. However there are areas of bony sclerosi s in the jade bilaterally and in the sacrum concerned about osteoblastic metastasis since these were not present in prior CT going back to January 13, 2018. 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 Degenerative changes bony remodeling in the lower lumbar spine consistent with prior injury and secondary proliferative changes. 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 These findings are stable and unchanged from prior studies going back to CT abdomen p dequan January 13, 2018 and consistent with chronic atrophic changes related to patient's paralysis and secondary underdevelopment/hypoplastic changes in the right-sided pelvis, bones femur and adjacent buttock s and thigh soft tissues. Contrast within the large bowel distenti on from prior oral contrast media obscuring detail. However there are areas of bony sclerosi s in the jade bilaterally and in the sacrum concerned about osteoblastic metastasis since these were not present in prior CT going back to January 13, 2018. Refer to recent CT of the the pelvis and abdomen March 31 for the assessment of blastic metastasis in the pelvis. Degenerative changes bony remodeling in the lower lumbar spine consistent with prior injury and secondary proliferative changes. 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 These are stable going back to January 2018. 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 Performing Organization Address City/State/ZIP Code Phon e Number [id number] POC Creatinine (03/31/2021 1:33 PM SHOT DROPPER)Only the most recent of2 resultswithin the time period is included. POC Crea 0.9 0.6 - 1.3 [facility] Comment: mg/dL Medications, especially hydr oxyurea or supplements, such as ascorbate, can interfere with test results causing a falsely and significantly higher result than expected. If a problem is suspected with a patient's result, a sample should be sent to the laboratory for confirmatory testing. Method description: The i-ST AT is an analyzer used for in vitro quantification of various analytes in whole blood. The device uses a single disposable cartridge which contains microfabricated sensors, a calibration solution, fluidics system, and a waste chamber. Each test cartridge contains chemically sensitive biosensors on a silicon chip that are configured to perform specific tests. The microfabricated sensors measure analyte concentration by an electrochemical assay. POC eGFR-AA 99 >=60 POC [facility] Comment: mL/min/1.73 m2 Normal eGFR >= 60 mL/min/1.73 m2 The eGFR is calculated using the CKD-EPI equation. The eGFR declines with age. eGFR <60 mL/min/1.73 m2 is considered as "decreased" This equation should only be used for patients 18 and older. According to the National [place] [employer]'s Kidney Disease Outcome Quality Initiative (KDOQI) classification and 2012 Kidney Disease Improving Global Outcomes (KDIGO) Clinical Practice Guideline, the stage of CKD should be categorized based on estimated GFR. Stage Description GFR mL/min/1.73 m2 1 Kidney damage with normal or high GFR >=90 2 Kidney damage with mild decrease in GFR 60-89 3a Mild to moderate decrease in GFR 45-59 3b Moderate to severe decrease in GFR 30-44 4 Severe decrease in GFR 15-29 5 Kidney failure <15 (or dialysis) POC eGFR-SANTOS 85 >=60 POC [facility] Comment: mL/min/1.73 m2 Normal eGFR >= 60 mL/min/1.73 m2 The eGFR is calculated using the CKD-EPI equation. The eGFR declines with age. eGFR <60 mL/min/1.73 m2 is considered as "decreased" This equation should only be used for patients 18 and older. According to the National [place] [employer]'s Kidney Disease Outcome Quality Initiative (KDOQI) classification and 2012 Kidney Disease Improving Global Outcomes (KDIGO) Clinical Practice Guideline, the stage of CKD should be categorized based on estimated GFR. Stage Description GFR mL/min/1.73 m2 1 Kidney damage with normal or high GFR >=90 2 Kidney damage with mild decrease in GFR 60-89 3a Mild to moderate decrease in GFR 45-59 3b Moderate to severe decrease in GFR 30-44 4 Severe decrease in GFR 15-29 5 Kidney failure <15 (or dialysis) POC Clean Dev Yes POC [facility]: [facility], [address] [place] [address]; Upholstery Restorer: Kamini Bae MD Specimen Blood Performing Organization Address City/State/ZIP Code Phon e Number POC [facility] IR NEPHROSTOMY EXCHANGE (03/21/2021 10:38 AM SHOT DROPPER)Only the most recent of4 resultswithin the time period is included. 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 Consent: The procedure, risks, indicat ions and alternatives were explained. All questions were answered a nd informed consent was obtained. I have reviewed the history and physical dictated by the mid-level practitioner / fellow. Sedation/Anesthesia: Moderate sedation for pain control and a nxiety was administered by a dedicated nurse under my supervision. There was continuous monitoring of oxygen saturation, heart rate and interm ittent monitoring of blood pressure during the procedure. Medicat ion given was midazolam and fentanyl. I was present for the admin istration of the medications indicated above. Procedure Events Event Event Time Sedation Start 03/21/2021 10:56 AM Sedation End 03/21/2021 11:04 AM Procedure in Detail: A time out was performed prior to the st art of the procedure and the correct patient, procedure, presence of consent, site, and side were confirmed with all members of the team. The patient was placed in a prone positi on on the fluoroscopy table and the catheter(s) and insertion site(s) we re prepped and draped in the usual sterile fashion. Lidocaine 1% was used f or local anesthesia. A transfer and line up worker view was obtained of the cathete r. A left nephrostogram confirmed catheter position in the renal pelvis. The catheter was severed and exchanged over a wire for a new 10 Frenc h Mac-loc catheter. Repeat nephrostogram demonstrates adequate posi tion in the renal pelvis. The catheter was secured to the patient with suture. Additional Comments: None Estimated Blood Loss: Minimal Specimens Removed: No Immediate Complications: None Disposition: PACU Plan: Catheter to gravity drainage. Return for routine exchange in 3 pancho hs. (ABNORMAL) Prothrombin Time with INR (03/17/2021 1:29 PM SHOT DROPPER)Only the most recent of3 resultswithin the time period is included. [facility] PT 13.9 11.5 - 13.9 [facility] Comment: second(s) Repeated and verified. Testing Performed at [facility] Yarn Washer [facility] [address] [place] [address] INR 1.15 (H) 0.90 - 1.10 [facility] Comment: Repeated and verified. Testing Performed at [facility] Yarn Washer [facility] [address] [place] [address] Specimen Blood Narrative [facility] - 03/17/2021 2:26 PM SHOT DROPPER Schedule bloodwork according to IR evaluation/procedure This lab cannot be scheduled at the [facility] owing locations due to collection/proccessing restrictions: [facility] and [facility]. Performing Organization Address City/State/ZIP Code Phon e Number [facility] [address] [place] [address] [address] XR Femur 2 Views Right (03/04/2021 1:51 PM SHOT DROPPER)Only the most recent of2 results within the time period is included. Anatomical Region Laterality Modality Thigh, Extremity Digital Radiography Specimen Impressions [id number] - 03/04/2021 4:58 PM SHOT DROPPER Minimal sclerosis along the edge of the intertrochanter consistent with metastatic disease, not significantly changed from the prior study. Small focus of periosteal new bone at th e femoral diaphysis and sclerosis in the tibia, also not changed and possibly representing metastases. Muscle atrophy and hypoplasia of the fem ur and acetabulum suggesting long- standing neuromuscular disorder. 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 One of these is at the anterior edge of the junction between femoral neck and greater trochanter. They are consis tent with metastatic disease, and the ri ght femoral lesion mentioned above does correspond with approximately the location of increased activity on bone scan. Presumably it represents a metastasis. It i s not confidently identified on this exa mination but appears to be located anteriorly, along the lateral margin of the bone as presented in the frog-leg lateral view. The muscles of the right lower extremity are atrophic. The femur is hypoplastic, and the acetabulum is atrophic. 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 The CT shows fatty replacement not only of right-sided musc les but also of paraspinal muscles and to a lesser extent, the muscles of the upper left thigh. Does the patient have post polio syndrome or muscular dystrophy? Some minimal periosteal new bone is agai n present adjacent to the cortex of the proximal femoral diaphysis. Please see arrow. This may also indicate a site of metastasis, and along the anterior edge of the greater trochanter there is some irr egularity that may be due to the metastasis noted on the hip radiographs. Please see [place]. These findings are not changed. In the remainder of the femur, no focal lytic or sclerotic lesions are identified that suggest metastatic disease. There is sclerosis in the proximal tibia which may indicate another site of metastasis and which is unchanged. The area of periosteal new bone and the proximal tibia are not noticeably increased in uptake on bone scan. If they represent metastases, they may be quiescent. 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 One of these is at the anterior edge of the junction between femoral neck and greater trochanter. They are consistent with metastatic disease, and the right femora l lesion mentioned above does correspond with approximately the location of increased activity on bone scan. Presumably it represents a metastasis. It is not confidently identified on this examination but appea rs to be located anteriorly, along the lateral margin of the bone as presented in the frog-leg lateral view. The muscles of the right lower extremity are atrophic. The femur is hypoplastic, and the acetabulum is atrophic. 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 The CT shows fatty replacement not only of right-sided musc les but also of paraspinal muscles and to a lesser extent, the muscles of the upper left thigh. Does the patient have post polio syndrome or muscular dystrophy? Some minimal periosteal new bone is agai n present adjacent to the cortex of the proximal femoral diaphysis. Please see arrow. This may also indicate a site of metastasis, and along the anterior edge of the greater trochanter there is some irregularity th at may be due to the metastasis noted on the hip radiographs. Please see [place]. These findings are not changed. In the remainder of the femur, no focal lytic or sclerotic lesions are identified that suggest metastatic disease. There is sclerosis in the proximal tibia which may indicate another site of metastasis and which is unchanged. The area of periosteal new bone and the proximal tibia are not noticeably increased in uptake on bone scan. If they represent metastases, they may be quiescent. IMPRESSION: Minimal sclerosis along the edge of the intertrochanter consistent with metastatic disease, not significantly changed from the prior study. Small focus of periosteal new bone at th e femoral diaphysis and sclerosis in the tibia, also not changed and possibly representing metastases. Muscle atrophy and hypoplasia of the fem ur and acetabulum suggesting long- standing neuromuscular disorder. Performing Organization Address City/State/ZIP Code Phon e Number [id number] XR Hip 2 or 3 Views w Pelvis Right (03/04/2021 1:51 PM SHOT DROPPER)Only the most recent of2 resultswithin the time period is included. Anatomical Region Laterality Modality Hip, Extremity Digital Radiography Specimen Impressions [id number] - 03/04/2021 4:58 PM SHOT DROPPER Minimal sclerosis along the edge of the intertrochanter consistent with metastatic disease, not significantly changed from the prior study. Small focus of periosteal new bone at th e femoral diaphysis and sclerosis in the tibia, also not changed and possibly representing metastases. Muscle atrophy and hypoplasia of the fem ur and acetabulum suggesting long- standing neuromuscular disorder. 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 One of these is at the anterior edge of the junction between femoral neck and greater trochanter. They are consis tent with metastatic disease, and the ri ght femoral lesion mentioned above does correspond with approximately the location of increased activity on bone scan. Presumably it represents a metastasis. It i s not confidently identified on this exa mination but appears to be located anteriorly, along the lateral margin of the bone as presented in the frog-leg lateral view. The muscles of the right lower extremity are atrophic. The femur is hypoplastic, and the acetabulum is atrophic. 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 The CT shows fatty replacement not only of right-sided musc les but also of paraspinal muscles and to a lesser extent, the muscles of the upper left thigh. Does the patient have post polio syndrome or muscular dystrophy? Some minimal periosteal new bone is agai n present adjacent to the cortex of the proximal femoral diaphysis. Please see arrow. This may also indicate a site of metastasis, and along the anterior edge of the greater trochanter there is some irr egularity that may be due to the metastasis noted on the hip radiographs. Please see [place]. These findings are not changed. In the remainder of the femur, no focal lytic or sclerotic lesions are identified that suggest metastatic disease. There is sclerosis in the proximal tibia which may indicate another site of metastasis and which is unchanged. The area of periosteal new bone and the proximal tibia are not noticeably increased in uptake on bone scan. If they represent metastases, they may be quiescent. 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 One of these is at the anterior edge of the junction between femoral neck and greater trochanter. They are consistent with metastatic disease, and the right femora l lesion mentioned above does correspond with approximately the location of increased activity on bone scan. Presumably it represents a metastasis. It is not confidently identified on this examination but appea rs to be located anteriorly, along the lateral margin of the bone as presented in the frog-leg lateral view. The muscles of the right lower extremity are atrophic. The femur is hypoplastic, and the acetabulum is atrophic. 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 The CT shows fatty replacement not only of right-sided musc les but also of paraspinal muscles and to a lesser extent, the muscles of the upper left thigh. Does the patient have post polio syndrome or muscular dystrophy? Some minimal periosteal new bone is agai n present adjacent to the cortex of the proximal femoral diaphysis. Please see arrow. This may also indicate a site of metastasis, and along the anterior edge of the greater trochanter there is some irregularity th at may be due to the metastasis noted on the hip radiographs. Please see [place]. These findings are not changed. In the remainder of the femur, no focal lytic or sclerotic lesions are identified that suggest metastatic disease. There is sclerosis in the proximal tibia which may indicate another site of metastasis and which is unchanged. The area of periosteal new bone and the proximal tibia are not noticeably increased in uptake on bone scan. If they represent metastases, they may be quiescent. IMPRESSION: Minimal sclerosis along the edge of the intertrochanter consistent with metastatic disease, not significantly changed from the prior study. Small focus of periosteal new bone at th e femoral diaphysis and sclerosis in the tibia, also not changed and possibly representing metastases. Muscle atrophy and hypoplasia of the fem ur and acetabulum suggesting long- standing neuromuscular disorder. Performing Organization Address City/State/ZIP Code Phon e Number [id number] Potassium Level (10/01/2020 1:45 PM CDT)Only the most recent of3 resultswithin the time period is included. Pathologist Sig nature Potassium Lvl 5.0 3.5 - 5.1 mEq/L [facility] Specimen Blood Performing Organization Address City/State/ZIP Code Phon e Number [facility] Unless otherwise noted, [place], [place] [address] CENTER all lab tests performed by: Division of Pathology and Laboratory Medicine [address] [place] Phosphorus Level (09/03/2020 12:08 PM CDT)Only the most recent of10 results within the time period is included. Pathologist Sig nature Phosphorus 3.3Comment: Testing 2.5 - 4.5 mg/dL [facility] Performed at [facility] [address], [address], [place] [address] Specimen Blood Performing Organization Address City/State/ZIP Code Phon e Number [facility] [address] [place] [address] [address] US Renal (08/30/2020 1:42 PM CDT) Anatomical Region Laterality Modality Abdomen Ultrasound Specimen Impressions [id number] - 08/30/2020 2:53 PM CDT 1. Left percutaneous nephrostomy catheter with fullness of the renal pelvis which is slightly increased compared to CT from 08/22/2020. 2. No right hydronephrosis. 3. Similar appearance of thickened and irregular wall of the bladder which may be due to patient's primary malignancy. I personally reviewed these image(s) nery krueger with the resident's/fellow's interpretations, certify that if a procedure was performed I was physically present, and agree with the final report. 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 Findings: Left kidney: The left kidney measures 11.1 cm in length. There is normal renal parenchyma echogenicity. No renal calculi or masses. There is partial visualization of a percutaneous nephrostomy cathete r coiled within the renal pelvis. There is fullness of the renal pelvis which has increased compared to ultrasound from 04/08/[address] from 08/22/2020. Right kidney: The right kidney measure s 9.2 cm in length. There is normal renal parenchyma echogenicity. No renal calculi or masses. A superior pole simple cyst measures 1.5 cm. No hydronephrosis. Urinary bladder: Partially distended w ith thick and irregular contour of the bladder mucosa, most prominent on the lateral wall and posterior aspect of the bladder. 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 Findings: Left kidney: The left kidney measures 1 1.1 cm in length. There is normal renal parenchyma echogenicity. No renal calculi or masses. There is partial visualization of a percutaneous nephrostomy catheter coiled within the renal pelvis. There is fullness of t he renal pelvis which has increased compared to ultrasound from 04/08/[address] from 08/22/2020. Right kidney: The right kidney measures 9.2 cm in length. There is normal renal parenchyma echogenicity. No renal calculi or masses. A superior pole simple cyst measures 1.5 cm. No hydronephrosis. Urinary bladder: Partially distended wi th thick and irregular contour of the bladder mucosa, most prominent on the lateral wall and posterior aspect of the bladder. IMPRESSION: 1. Left percutaneous nephrostomy cathet er with fullness of the renal pelvis which is slightly increased compared to CT from 08/22/2020. 2. No right hydronephrosis. 3. Similar appearance of thickened and irregular wall of the bladder which may be due to patient's primary malignancy. I personally reviewed these image(s) nery krueger with the resident's/fellow's interpretations, certify that if a procedure was performed I was physically present, and agree with the final report. Performing Organization Address City/[facility] Code Phon e Number [id number] EKG, 12-Lead (Portable) (08/27/2020) Specimen Narrative This result has an attachment that is no t available. Performing Organization Address City/State/ZIP Code Phon e Number [facility] Partial Thromboplastin Time (08/26/2020 4:03 AM CDT)Only the most recent of2 resultswithin the time period is included. Pathologist Sig nature aPTT 30.4 24.7 - 36.8 second(s) [facility] Specimen Blood Performing Organization Address City/State/ZIP Code Phon e Number [facility] Unless otherwise noted, [address] all lab tests performed by: Division of Pathology and Laboratory Medicine [address] [place] [address] Blood Culture - Port a Cath (08/25/2020 2:15 PM CDT)Only the most recent of8 resultswithin the time period is included. Final Report No growth [facility] Path Review - Immunity and antibiotic use may render culture negative. Ongoing infection requires repeat culture. [facility] Bottle/Isolator The results have been review ed and electronically signed by Pathologist: [facility] MOE DALTON MD #[id number] Specimen Blood - Port-a-Cath Performing Organization Address City/[facility] Phon e Number [facility] Unless otherwise noted, [address] all lab tests performed by: Division of Pathology and Laboratory Medicine [address] [place] [address] Vancomycin Trough Please obtain vancomycin trough level, 30 minutes prior to the 3rd dose on 08/22/20. Vancomycin trough due: 1930. Vancomycin dose due: 1999. Please page nocturnal IF vancomycin trough level > 20 for new orders. Thanks. (08/22/2020 7:25 PM CDT)Only the most recent of3 resultswithin the time period is included. Vanco Trough 15.2Comment: Toxic 5.0 - 20.0 [facility] Trough Level: >20 mcg/mL [facility] mcg/mL Vanco Tr Dose Time see noteComment: [facility] Level, date, and [facility] time of previous dose is not available for this sample. The date reported is the sample collection date. Vanco Tr Dose Date 08/22/2020 [facility] Specimen Blood Narrative [facility] - 1 8:35 PM CDT Please obtain vancomycin trough level, 3 0 minutes prior to the 3rd dose on 08/22/20. Vancomycin trough due: 1930. Vancomy luc dose due: 1999. Please page nocturnal IF vancomycin trough level > 20 for new orders. Thanks. Performing Organization Address City/State/[facility] Phon e Number [facility] Unless otherwise noted, [address] all lab tests performed by: Division of Pathology and Laboratory Medicine [address] [place] [address] (ABNORMAL) Urinalysis with Microscopic (08/22/2020 1:34 PM CDT)Only the most recent of3 resultswithin the time period is included. Pathologist Sig nature UA WBC 9 (H) 0 - 2 /HPF [facility] UA RBC 1 0 - 2 /HPF [facility] UA Mucous NOT SEEN Not Seen-Trace /HPF [facility] UA Bacteria OCC NOT SEEN /HPF [facility] UA Squam Epi OCC None-Occasional [facility] /HPF CENTER UA Renal Epi <1 (H) <=0 /HPF [facility] Specimen Urine, Clean Catch Narrative [facility] - 1 2:12 PM CDT Some reporting parameters within the Urinalysis test have changed due to the implementation of new in strumentation in the [facility], allowi ng greater sensitivity of measurement. Urinalysis results reported by the [facility] using existing instrumentation, as well as Urinalysis t esting performed manually or by backup methodology at the [facility] will remain relatively unchanged. New reporting parameters and units will now be reported for all campuses. Performing Organization Address City/State/ZIP Code Phon e Number [facility] Unless otherwise noted, [address] all lab tests performed by: Division of Pathology and Laboratory Medicine [address] [place] [address] [place] (ABNORMAL) Urinalysis w/Microscopic if Indicated (08/22/2020 1:34 PM CDT)Only the most recent of3 resultswithin the time period is included. Pathologist Sig nature UA Color Yellow Straw-Yellow [facility] UA Appear Clear Clear [facility] UA Glucose NEG NEG mg/dL [facility] UA Bili NEG NEG [facility] UA Ketones Trace (A) NEG mg/dL [facility] UA Spec Grav 1.011 1.003 - 1.035 [facility] UA Blood NEG NEG [facility] UA pH 6.0 5.0 - 9.0 [facility] UA Protein 30 (A) NEG mg/dL [facility] UA Urobilinogen NEG NEG [facility] UA Nitrite NEG NEG [facility] UA Leuk Est Small (A) NEG [facility] Specimen Urine, Clean Catch Narrative [facility] - 1 2:07 PM CDT Please label specimen with source. Allen nks! Performing Organization Address City/State/ZIP Code Phon e Number [facility] Unless otherwise noted, [address] all lab tests performed by: Division of Pathology and Laboratory Medicine [address] [place] [address] [place] (ABNORMAL) Urine Culture (08/22/2020 1:34 PM CDT)Only the most recent of4 resultswithin the time period is included. Pathologist [facility] Final Report <10,000 cfu/ml Gram [facility] Negative Rods (A) [facility] Path Review - The results have been review ed and electronically signed by Pathologist: [facility] Urine MOE DALTON MD #[id number] [facility] R (A) Specimen Urine, Nephrostomy - Left Narrative [facility] - 1 2:26 PM CDT Please label specimen with source. Allen nks! Performing Organization Address City/[facility] Phon e Number [facility] Unless otherwise noted, [address] all lab tests performed by: Division of Pathology and Laboratory Medicine [address] [place] [address] Respiratory Viral Panel + COVID-19, Nasopharyngeal Swab (08/21/2020 8:27 PM CDT)Only the most recent of2 resultswithin the time period is included. [facility] Adenovirus Not Detected Not Detected [facility] Coronavirus 229E Not Detected Not Detected [facility] Coronavirus HKU1 Not Detected Not Detected [facility] Coronavirus NL63 Not Detected Not Detected [facility] Coronavirus OC43 Not Detected Not Detected [facility] COVID19 (SARS-CoV-2) Not Detected Not Detected [facility] Human Metapneumovirus Not Detected Not Detected [facility] Human Not Detected Not Detected [facility] Rhinovirus/Enterovirus [facility] Influenza A Not Detected Not Detected [facility] Influenza A H1 Not Detected Not Detected [facility] Influenza A H1 2009 Not Detected Not Detected [facility] Influenza A H3 Not Detected Not Detected [facility] Influenza B Not Detected Not Detected [facility] Parainfluenza 1 Not Detected Not Detected [facility] Parainfluenza 2 Not Detected Not Detected [facility] Parainfluenza 3 Not Detected Not Detected [facility] Parainfluenza 4 Not Detected Not Detected [facility] Respiratory Syncytial Not Detected Not Detected [facility] Virus [facility] Bordetella Not Detected Not Detected [facility] Parapertussis [facility] Bordetella pertussis Not Detected Not Detected [facility] Chlamydiophila Not Detected Not Detected [facility] pneumoniae [facility] [facility] Mycoplasma pneumoniae Not Detected Not Detected [facility] Specimen Nasopharyngeal Swab Narrative [facility] - 1 10:01 PM CDT The BioFire RP2.1 is a real-time, nested multiplexed polymerase chain reaction test designed to simul taneously identify nucleic acids from 22 different viruses and bacteria associated with respiratory tract infection, including SARS-CoV-2, from a single nasopharyngeal swab (DUPLICATION SPECIALIST) specimen. Spec ifically, the SARS-CoV-2 primers contained in the BioFire RP2.1 are designed to detect RNA from the SARS-CoV-2 in nasopharyngeal swabs in transport media from patients who are suspected of COVID-19 by their healthcare provider. Results must be int erpreted within the context of all relevant clinical and laboratory findings and should not form the sole basis for a diagnosis or treatment decision. This assay has been approved by the FDA for use only under Emergency Use Authorization (EUA) in laboratories that have been CLIA-certified to perform moderate-complexity and high-complexity tests. The M icrobiology Laboratory at [facility], CLIA Accreditation #[id number] and CAP Accreditation #[id number], verified the performance characteristics of this assay. Microbiology Laboratory at [facility] performs the assay using the E-House System. Internal control s are used to monitor all stages of the test proces s. Performing Organization Address City/State/[facility] Code Phon e Number [facility] Unless otherwise noted, [address] all lab tests performed by: Division of Pathology and Laboratory Medicine [address] Expiration Date (08/21/2020 8:27 PM CDT) Pathologist Sig nature T & S Expiration 08/24/2020 [facility] Specimen Blood Performing Organization Address City/[facility] Phon e Number [facility] Unless otherwise noted, [address] all lab tests performed by: Division of Pathology and Laboratory Medicine [address] TMP Interpretation Antibody Screen Negative (08/21/2020 8:27 PM CDT) TMP Auto Neg ABSC At the present time, niles woody plasma shows no evidence of RBC alloantibodies. [facility] Interp Comment: [facility] PERRI FERNANDEZ MD - [id number] Dictated by: PERRI FERNANDEZ MD - [id number] Dictated Date/Time: 08.23.19 9:58 AM CDT Transcribed Date/Time: 08.22.2020 9:58 AM CDT Electronically Signed By: MD Monet SMILEY [id number] on 08.22.2020 9:58 AM C Specimen Blood Performing Organization Address City/[facility] Phon e Number [facility] Unless otherwise noted, [address] all lab tests performed by: Division of Pathology and Laboratory Medicine [facility] Jessa VB Lactate (08/21/2020 8:27 PM CDT)Only the most recent of2 resultswithin the time period is included. Pathologist Sig dianna V Lactate 0.6 0.5 - 1.6 mmol/L [facility] CE NTER Specimen Blood Performing Organization Address City/[facility]/ZIP [facility] Phon e Number [facility] Unless otherwise noted, [address] all lab tests performed by: Division of Pathology and Laboratory Medicine [facility] [place] ABORh (08/21/2020 8:27 PM CDT) Pathologist Sig nature ABORh. O NEG [facility] Specimen Blood Performing Organization Address City/[facility] Phon e Number [facility] Unless otherwise noted, [address] all lab tests performed by: Division of Pathology and Laboratory Medicine [address] Antibody Screen (08/21/2020 8:27 PM CDT) Pathologist Sig nature ABSC. Negative ABSC [facility] Specimen Blood Performing Organization Address City/State/ZIP Code Phon e Number [facility] CANCER Unless otherwise noted, [place] [address] CENTER all lab tests performed by: Division of Pathology and Laboratory Medicine [address] [facility] X-ray Chest 1 View (08/21/2020 8:06 PM CDT)Only the most recent of2 results within the time period is included. Anatomical Region Laterality Modality Chest Digital Radiography Specimen Impressions [id number] - 08/21/2020 8:20 PM CDT No acute infiltrate is suspected. Narrative [id number] - 08/21/2020 8:20 PM CDT FULL RESULT: Examination: XR CHEST 1 VW, 08/21/2020 8: 06 PM Clinical History: Metastatic urothelial carcinoma Indication: Fever, COVID-19 Not Suspecte d Comparison: Chest radiography August 05 Technique: Anteroposterior radiograph of the chest. Findings: No infiltrates, effusions or suspicious pulmonary nodules are detected. Mild subsegmental atelectasis in the lung bases is again visualized. The lungs are better aerated as compared to August 05, 2020. Hea rt size is within normal limits. No mckenzie s adenopathy is detected. A right internal jugular port catheter is present with tip projecting over the superior vena cava. Incidental skinfold artifact projecting over the right hemithorax. Procedure Note Ftauma Romo MD - 08/21/2020 FULL RESULT: Examination: XR CHEST 1 VW, 08/21/2020 8: 06 PM Clinical History: Metastatic urothelial carcinoma Indication: Fever, COVID-19 Not Suspecte d Comparison: Chest radiography August 05 Technique: Anteroposterior radiograph of the chest. Findings: No infiltrates, effusions or suspicious pulmonary nodules are detected. Mild subsegmental atelectasis in the lung bases is again visualized. The lungs are better aerated as compared to August 05, 2020. Heart size is within normal limits. No gross adenopathy is de tected. A right internal jugular port catheter is present with tip projecting over the superior vena cava. Incidental skinfold artifact projecting over the right hemithorax. IMPRESSION: No acute infiltrate is suspected. Performing Organization Address City/State/ZIP Code Phon e Number [id number] IR NEPHROSTOMY REMOVAL UNDER FLUOROSCOPY (08/19/2020 2:22 PM CDT) Anatomical Region Laterality Modality Abdomen/Pelvis X-Ray Angiography Specimen Narrative Yoandy Hendrickson MD - 08/19/2020 2: 33 PM CDT Date of Procedure: 08/19/20 Attending Physician: Yoandy Hendrickson MD Csr Technician: Crystal Aguilar Pre Procedure Diagnosis: Primary uroth elial carcinoma Post Procedure Diagnosis: Unchanged Indication: S/P capping trial (right), e valuation for removal. Renal function stable. Title of Procedure: Percutaneous Image-Guided right antegrad e nephrostogram, right nephrostomy removal. Operative Findings: Successful percutaneous image-guided rig ht antegrade nephrostogram, right nephrostomy tube removal Consent: The procedure, risks, indicat ions and alternatives were explained. All questions were answered a nd informed consent was obtained. I have reviewed the history and physical dictated by the mid-level practitioner / fellow. Sedation/Anesthesia: None Procedure in Detail: A time out was performed prior to the st art of the procedure and the correct patient, procedure, presence of consent, site, and side were confirmed with all members of the team. Patient was placed in the prone position on the fluoroscopy table. A transfer and line up worker image was obtained and image saved into patient chart. Right antegrade nephrostogram showed cat heter well positioned in the renal pelvis with brisk flow of contrast into the bladder. Retention suture was cut then catheter was severed and remove d in its entirety. A clean dressing was placed at the site. Additional Comments: None Estimated Blood Loss: Minimal Specimens Removed: No Immediate Complications: None Disposition: PACU Plan: Local wound care instructions provide d. Keep site clean and dry, cover with clean gauze dressing daily and PRN saturation until healed. Return for scheduled left nephrostomy exchange. Left nephrostomy to remain to gravity drainage. I certify my physical presence at the [facility] of the procedure. I personally reviewed the image(s) and the resident's / fellow's interpretation and agree with the written report. 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 Title of Procedure: Percutaneous Image-Guided bilateral neph rostogram. Operative Findings: Successful percutaneous image-guided luc ateral nephrostogram. Consent: The procedure, risks, indicat ions and alternatives were explained. All questions were answered a nd informed consent was obtained. I have reviewed the history and physical dictated by the mid-level practitioner / fellow. Sedation/Anesthesia: None Procedure in Detail: A time out was performed prior to the st art of the procedure and the correct patient, procedure, presence of consent, site, and side were confirmed with all members of the team. The patient was prepped and draped in a sterile manner. Lidocaine 1% was used for local anesthesia. Patient was p laced in the prone position on the fluoroscopy table. A transfer and line up worker image was obt ained and image saved into patient chart. Left antegrade nephrostogram show ed catheter slightly retracted out of the renal pelvis, hydroureter present with minimal flow of contrast into the bladder. Suture was cut and und er fluoroscopy the left nephrostomy catheter was advanced into t he renal pelvis and the sutured into place. Right antegrade nephrostogram showed cat heter well positioned in the renal pelvis with brisk flow of contrast into the bladder. Right nephrostomy catheter was capped. Additional Comments: None Estimated Blood Loss: Minimal Specimens Removed: No Immediate Complications: None Disposition: PACU Plan: Right nephrostomy tube capped. Return in 10 days with labs for repeat nephrostogram and possible removal. Left nephrostomy to remain to gravity drainage. Return for scheduled exchange. I certify my physical presence at the [facility] of the procedure. I personally reviewed the image(s) and the TONI's inte rpretation and agree with the written report. CT Abdomen Pelvis with IV Contrast (08/05/2020 11:45 PM CDT) Anatomical Region Laterality Modality Abdomen, Pelvis Computed Tomography Specimen Impressions [id number] - 08/06/2020 9:06 AM CDT 1. Satisfactory positioning of the bilateral nephrostomy catheters, unchanged from 07/29/2020 exam. 2. New 3.1 cm heterogeneous hypodense but solid appearing mass involving the posterior right renal midpole. Given the rapid development of this finding primary consideration would be for focal infecti on of the kidney. No drainable abscess i s seen. Another consideration could be hematoma except that this is out of the course of the nephrostomy tube. 3. Stable urinary bladder wall thicken ing more prominently seen on the left in this patient with history of known bladder cancer.. 4. Stable multifocal osseous metastase s. The remainder of the findings are stable from 07/29/2020 exam. Change from from preliminary report: Rodri ntification of 3.1 cm mass involving the posterior right renal midpole that is thought to be likely related to infection given its very rapid development since just 7 days ago. Results notification: Above findings wer e communicated to Nurse Practitioner YAQUELIN by Dr. ORELLANA at 08/06/2020 9:04 AM I personally reviewed these image(s) nery krueger with the resident's/fellow's interpretations, certify that if a procedure was performed I was physically present, and agree with the final report. Narrative [id number] - 08/06/2020 9:06 AM CDT FULL RESULT: Examination: CT ABDOMEN PELVIS W CONTRAS T, 08/05/2020 11:45 PM Clinical History: 70-year-old male with malignant neoplasm of the bladder. Concern for a malpositioned right nephrostomy catheter. Indication: malpositioned nephrostomy Comparison: Comparison is made to 021 CT chest abdomen pelvis with contrast. Technique: CT of abdomen and pelvis was performed with intravenous contrast. Findings: Lines and tubes: Bilateral nephrostomy c atheters are seen in satisfactory position. Lower chest: Emphysematous changes of th e bilateral lungs are noted. Dependent subsegmental atelectasis is seen in the bilateral lower lobes. A few 0.5 cm pulmonary nodules are seen in the right lower lobe, stable from most recent comparison exam. Liver: No suspicious hepatic lesions rodri ntified. Gallbladder/biliary tree: The gallbladde r and biliary tree are unremarkable. Spleen: Numerous splenic calcifications are again seen, likely representing the sequelae of previous granulomatous disease. GI tract: The lower esophagus, stomach, and small bowel are unremarkable. No small bowel dilation identified to suggest small bowel obstruction. Moderate colonic stool burden with hyperdense stool seen in the rectum that is the residua of ora l contrast from prior CT examination. Pancreas: Unremarkable. Adrenals: Nodularity of the bilateral ad renal glands is again noted, stable since 01/13/2018 exam. Kidneys: Bilateral nephrostomy catheters are seen in satisfactory position, unchanged from 07/29/2020 exam. No hydroureteronephrosis. Foci of air are seen in the right renal collecting system, potentiall y from recent nephrostomy exchange or ma nipulation. There has been interim development of a solid mass involving the posterior right renal midpole measuring 31 mm since the prior study just 7 days ago. A previously seen adjacent millimeters cystic lesion is stable. This lesion measures solid. Focal infection of the kidney is a consideration without evidence of abscess. Ureters: Stable periureteral stranding s een near the renal pelvis, right greater than left may be inflammatory in nature. Bladder: Stable urinary bladder wall thi ckening posteriorly with persistent tumoral involvement of the bilateral uterovesical junctions. The findings supportive of tumor involvement of these findings pa rticularly on the left are much better a ppreciated on the prior study of 11/01/2019 findings were much more extensive. Air is seen within the bladder lumen, potentially secondary to nephrostomy exchanges. Reproductive organs: Mild prostatomegaly is again noted. Lymph nodes: 1.1 cm left external iliac and common iliac lymph nodes (series 5 image 139, 120) are stable from previous exam. Numerous subcentimeter inguinal, retroperitoneal and retrocrural lymph nodes are again noted. Bones/soft tissues: Multifocal sclerotic osseous metastases are seen in the sacrum, bilateral iliac bones, and the lumbar spine. Small bilateral fat- containing inguinal hernias. Procedure Note Nader Orellana MD - 08/06/2020 FULL RESULT: Examination: CT ABDOMEN PELVIS W CONTRAS T, 08/05/2020 11:45 PM Clinical History: 70-year-old male with malignant neoplasm of the bladder. Concern for a malpositioned right nephrostomy catheter. Indication: malpositioned nephrostomy Comparison: Comparison is made to 021 CT chest abdomen pelvis with contrast. Technique: CT of abdomen and pelvis was performed with intravenous contrast. Findings: Lines and tubes: Bilateral nephrostomy c atheters are seen in satisfactory position. Lower chest: Emphysematous changes of th e bilateral lungs are noted. Dependent subsegmental atelectasis is seen in the bilateral lower lobes. A few 0.5 cm pulmonary nodules are seen in the right lower lobe, stable from most recent comparison exam. Liver: No suspicious hepatic lesions rodri ntified. Gallbladder/biliary tree: The gallbladde r and biliary tree are unremarkable. Spleen: Numerous splenic calcifications are again seen, likely representing the sequelae of previous granulomatous disease. GI tract: The lower esophagus, stomach, and small bowel are unremarkable. No small bowel dilation identified to suggest small bowel obstruction. Moderate colonic stool burden with hyperdense stool seen in the rectum that is the residua of oral contrast fro m prior CT examination. Pancreas: Unremarkable. Adrenals: Nodularity of the bilateral ad renal glands is again noted, stable since 01/13/2018 exam. Kidneys: Bilateral nephrostomy catheters are seen in satisfactory position, unchanged from 07/29/2020 exam. No hydroureteronephrosis. Foci of air are seen in the right renal collecting system, potentially from recent nephrostomy exchange or manipulation. There has been interim development of a solid mass involving the posterior right renal midpole measuring 31 mm since the prior study just 7 days ago. A previously seen adjacent millimeters cystic lesion is stable. This lesion measures solid. Focal infection o f the kidney is a consideration without evidence of abscess. Ureters: Stable periureteral stranding s een near the renal pelvis, right greater than left may be inflammatory in nature. Bladder: Stable urinary bladder wall thi ckening posteriorly with persistent tumoral involvement of the bilateral uterovesical junctions. The findings supportive of tumor involvement of these findings particularly on the left are much better appreciated on the prior study of 11/01/2019 findings were much more extensive. Air is seen within the bladder lumen, potentially secondary to nephrostomy exchanges. Reproductive organs: Mild prostatomegaly is again noted. Lymph nodes: 1.1 cm left external iliac and common iliac lymph nodes (series 5 image 139, 120) are stable from previous exam. Numerous subcentimeter inguinal, retroperitoneal and retrocrural lymph nodes are again noted. Bones/soft tissues: Multifocal sclerotic osseous metastases are seen in the sacrum, bilateral iliac bones, and the lumbar spine. Small bilateral fat- containing inguinal hernias. IMPRESSION: 1. Satisfactory positioning of the bila teral nephrostomy catheters, unchanged from 07/29/2020 exam. 2. New 3.1 cm heterogeneous hypodense b ut solid appearing mass involving the posterior right renal midpole. Given the rapid development of this finding primary consideration would be for focal infection of the kidney. No drainable abscess is seen. Another co nsideration could be hematoma except that this is out of the course of the nephrostomy tube. 3. Stable urinary bladder wall thickeni ng more prominently seen on the left in this patient with history of known bladder cancer.. 4. Stable multifocal osseous metastases . The remainder of the findings are stable from 07/29/2020 exam. Change from from preliminary report: Rodri ntification of 3.1 cm mass involving the posterior right renal midpole that is thought to be likely related to infection given its very rapid development since just 7 days ago. Results notification: Above findings wer e communicated to Nurse Practitioner YAQUELIN by Dr. ORELLANA at 08/06/2020 9:04 AM I personally reviewed these image(s) nery ng with the resident's/fellow's interpretations, certify that if a procedure was performed I was physically present, and agree with the final report. Performing Organization Address City/State/ZIP Code Phon e Number [id number] XR Abdomen 1 View Portable (08/05/2020 6:57 PM CDT) Anatomical Region Laterality Modality Abdomen Digital Radiography Specimen Impressions [id number] - 08/06/2020 12:20 AM CDT Bilateral nephrostomy catheters projects over the expected location of both kidneys, unchanged compared to CT from 07/29/2020. Multiple sclerotic osseous metastases. I personally reviewed these image(s) nery ng with the resident's/fellow's interpretations, certify that if a procedure was performed I was physically present, and agree with the final report. Narrative [id number] - 08/06/2020 12:20 AM CDT FULL RESULT: Examination: XR ABDOMEN 1 VW PORTABLE on 08/05/2020 6:57 PM Clinical History: 70-year-old male with malignant neoplasm of the bladder. Indication: Confirm catheter position ri ght catheter recently dislodged Comparison: CT chest abdomen pelvis with contrast from 07/29/2020 Technique: XR ABDOMEN 1 VW PORTABLE Findings: Bilateral nephrostomy catheters projects over the expected location of both kidneys, unchanged compared to CT from 07/29/2020. Nonobstructive bowel gas pattern with mi ld colonic stool burden. Sclerotic osseous metastases are identif ied. Procedure Note Lion Kerr MD - 08/06/2020 FULL RESULT: Examination: XR ABDOMEN 1 VW PORTABLE on 08/05/2020 6:57 PM Clinical History: 70-year-old male with malignant neoplasm of the bladder. Indication: Confirm catheter position ri ght catheter recently dislodged Comparison: CT chest abdomen pelvis with contrast from 07/29/2020 Technique: XR ABDOMEN 1 VW PORTABLE Findings: Bilateral nephrostomy catheters projects over the expected location of both kidneys, unchanged compared to CT from 07/29/2020. Nonobstructive bowel gas pattern with mi ld colonic stool burden. Sclerotic osseous metastases are identif ied. IMPRESSION: Bilateral nephrostomy catheters projects over the expected location of both kidneys, unchanged compared to CT from 07/29/2020. Multiple sclerotic osseous metastases. I personally reviewed these image(s) nery krueger with the resident's/fellow's interpretations, certify that if a procedure was performed I was physically present, and agree with the final report. Performing Organization Address City/State/ZIP Code Phon e Number [id number] Glucose, Random (08/05/2020 6:37 PM CDT) Glucose Random 109 70 - 199 mg/dL [facility] Comment: [facility] Effective 10/02/15, the gluco se reference intervals have been updated based on [place] [employer] guidelines (Standards of Medical Care in Diabetes 2016. Diabetes Care 2016; 39: S13-S22). Fasting blood glucose: Normal: 70 99 mg/dL Impaired fasting glucose (in creased risk for diabetes or pre-diabetes): 100 125 mg/dL Diabetes mellitus: >/=126 mg/dL Random blood glucose: Normal: 70 199 mg/dL Note: Random glucose >100 mg/dL is assoc iated with increased risk for diabetes Specimen Blood Performing Organization Address City/State/ZIP Code Phon e Number [facility] CANCER Unless otherwise noted, [place] [address] CENTER all lab tests performed by: Division of Pathology and Laboratory Medicine [address] [place] Anion Gap (08/05/2020 6:37 PM CDT) Pathologist Sig nature Anion Gap 10 4 - 14 mEq/L [facility] Specimen Blood Performing Organization Address City/[facility]/ZIP [facility] Phon e Number [facility] CANCER Unless otherwise noted, [address] all lab tests performed by: Division of Pathology and Laboratory Medicine [address] [place] (ABNORMAL) Procalcitonin (08/05/2020 6:37 PM CDT) Pathologist [facility] Procalcitonin 0.31 (H) <=0.08 ng/mL [facility] Comment: [facility] Procalcitonin > 2.00 ng/mL: Procalcitonin levels above 2.00 ng/mL are highly suggestive of a high risk for systematic bacterial infection/ severe sepsis and/or septic shock. Procalcitonin < 0.50 ng/mL: Procalcitonin levels below 0.50 ng/mL are at low risk for progression to severe sepsis and/ or septic shock. Procalcitonin (ProCT) betwee n 0.15 and 2.0 ng/mL do not exclude infection, because localized infections (without systemic signs) may be associated with such low levels. Results greater than 400 ng/ mL may not be reliable due to the matrix effect with extended dilution as it exceeds the reference and instruction librarian's recommended limit. Caution should be exercised when interpreting such values and done in conjunction with clinical context. Specimen Blood Performing Organization Address [facility] Phon e Number [facility] Unless otherwise noted, [address] all lab tests performed by: Division of Pathology and Laboratory Medicine [address] [place] (ABNORMAL) Sodium Level (08/05/2020 6:37 PM CDT) Pathologist [facility] Sodium Lvl 133 (L) 136 - 145 mEq/L [facility] TER Specimen Blood Performing Organization Address City/[facility]/ZIP [facility] [place] Phon e Number [facility] Unless otherwise noted, [address] all lab tests performed by: Division of Pathology and Laboratory Medicine [address] [place] LDH (08/05/2020 6:37 PM CDT) Pathologist [facility] LDH 163Comment: Results 135 - 225 U/L [facility] greater than 1651 U/L [facility] may not be reliable due to matrix effect with extended dilution as it exceeds the reference and instruction librarian s recommended limit. Caution should be exercised when interpreting such values and done in conjunction with clinical context. Specimen Blood Performing Organization Address City/[facility]/ZIP Code Phon e Number [facility] Unless otherwise noted, [address] all lab tests performed by: Division of Pathology and Laboratory Medicine [address] [place] Chloride Level (08/05/2020 6:37 PM CDT) Pathologist Sig nature Chloride 101 98 - 107 mEq/L [facility] Specimen Blood Performing Organization Address [facility] Phon e Number [facility] Unless otherwise noted, [address] all lab tests performed by: Division of Pathology and Laboratory Medicine [address] [place] Carbon Dioxide Level (08/05/2020 6:37 PM CDT) Pathologist Sig nature CO2 22 22 - 29 mEq/L [facility] Specimen Blood Performing Organization Address [facility] Phon e Number [facility] Unless otherwise noted, [address] all lab tests performed by: Division of Pathology and Laboratory Medicine [address] [place] after 06/15/2020 Insurance Payer Benefit Plan / Subscriber ID Effective Phone Address T ype Group Dates MEDICARE MEDICARE PART [id number] 2013-Pres [phone] [place] Medicare A AND B ent [address] [employer] [address] [facility] [address] AETNA NON AETNA NON [id number] 2000-Pres [address] CONTRACTED CONTRACTED ent [id number] [place] [address] Guarantor Name Account Type Relation to Date of Phone Bill ing Patient Address Mary Bullock Personal/Family Self 1950 [address]Home) [place] [address] Mary Bullock Personal/Family Self 1950 [address]) [place] [address] Advance Directives Type Date Recorded Patient Public Aid Eligibility Assistant Explanati on Advance Directives: 12/10/2020 12:00 AM Directive to Physicians Living Will and Family or Surrogates-Hayley vann Will Advance Directives: 12/10/2020 12:00 AM Medical P ower of Medical Power of Linux Developer Linux Developer Code Status Date Activated Date Inactivated Comments Full Code 08/21/2020 11:46 PM 08/27/2020 4:03 PM Full Code 08/06/2020 2:34 AM 08/07/2020 5:30 PM Full Code 04/08/2020 5:15 PM 04/12/2020 7:49 PM Full Code 03/05/2020 1:54 PM 03/08/2020 1:37 PM Full Code 02/13/2020 7:33 PM 02/16/2020 3:23 PM 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
--- OUTSIDE RECORDS SUMMARY | 2021-06-15 03:13 | XMS REPORT | Continuity of Care Document ---
:1950 Author Organization [facility] t Address [address] [place] [address] Care Team Providers Name Role Phone NEVAEH SEGUNDO Primary Care Physician Unavailable SYSTEM, NOT IN Attending Clinician Unavailable Thierry RODRIGUEZ Attending Clinician Unavailable [facility] Attending Clinician Unavailable [facility] THERAPY TECH Attending Clinician Rivka BRODY, Judy Attending Clinician Roderick MATHEW Attending Clinician RODERICK Attending Clinician Unavailable Quintin GRIGSBY Attending Clinician Asiya Junior RN Attending Clinician Unavailable David [facility], K Attending Clinician Unavailable Tona Nicole Attending Clinician FROYLAN NIXON Attending Clinician Unavailable Layla RN, Mariely Attending Clinician Unavailable Gordon H Attending Clinician Octavio Oneal Attending Clinician Maco BRODY, M Attending Clinician Unavailable Anita MATHEW Attending Clinician Eliezer MATHEW Attending Clinician Misbah BRODY Attending Clinician Unavailable Kayla Mclaughlin Attending Clinician Romelia NICKERSON, A Attending Clinician Brea MATHEW Attending Clinician BREA Attending Clinician Unavailable Zuly BRODY Attending Clinician Calvin Reeves Attending Clinician Ray BRODY, P Attending Clinician Unavailable Kemi BRODY, Y Attending Clinician Unavailable Opal Benson RN Attending Clinician Unavailable Hamilton BRODY, S Attending Clinician Unavailable TALIB Attending Clinician Unavailable Calvin Mendez RN Attending Clinician Unavailable Calvin MENDEZ III Attending Clinician Unavailable Gabrielle Martin RN Attending Clinician Unavailable MAKI Attending Clinician Unavailable OCTAVIO Attending Clinician Unavailable Octavio MATHEW Attending Clinician Kourtnye MATHEW Attending Clinician Sadia Bruce Attending Clinician Belkys REMY Attending Clinician Laurie Norwood RN Attending Clinician Unavailable Flip BRODY, M Attending Clinician Unavailable Kayla Attending Clinician Unavailable Nikole BRODY, A Attending Clinician Unavailable Dominique BRODY E Attending Clinician Unavailable Alen Smart RN Attending Clinician Unavailable SHEY Attending Clinician Unavailable Lowell BRODY, Laure Attending Clinician Unavailable Aleksandr BRODY, A Attending Clinician Unavailable Clare REMY Attending Clinician Shelley MATHEW Attending Clinician Ania MATHEW Attending Clinician Jonatan REMY Attending Clinician Emeka MATHEW Attending Clinician JONATAN Attending Clinician Unavailable Doyle BRODY Attending Clinician Unavailable Min Goldberg MA Attending Clinician Unavailable Fany MATHEW Attending Clinician Walter SARAVIA Attending Clinician ANITA Attending Clinician Unavailable Linda MATHEW Attending Clinician JC Attending Clinician Unavailable Serafin RN, S Attending Clinician Unavailable Beltran CABRALES Attending Clinician Rony Cortes RN Attending Clinician Octavio REMY Attending Clinician PHYLICIA Attending Clinician Unavailable SUSANNA MCKEON Attending Clinician Unavailable JEANETH Attending Clinician Unavailable Danny LAWS Attending Clinician Unavailable SABRINA Attending Clinician Unavailable ABILIO Attending Clinician Unavailable VIKAS Attending Clinician Unavailable LANI Attending Clinician Unavailable MEGAN Attending Clinician Unavailable REGGIE SMITH Attending Clinician Unavailable JEAN Attending Clinician Unavailable SUN Attending Clinician Unavailable Min UNDERWOOD Attending Clinician Unavailable Miguel HOYOS Attending Clinician Unavailable Brigitte QUEEN Attending Clinician Unavailable RUI Attending Clinician Unavailable Thierry RODRIGUEZ Admitting Clinician Unavailable ANIA Admitting Clinician Unavailable RODERICK Admitting Clinician Unavailable ANITA Admitting Clinician Unavailable LANI Admitting Clinician Unavailable Miguel HOYOS Admitting Clinician Unavailable JEAN Admitting Clinician Unavailable RAYA PATIÑO Admitting Clinician Unavailable Payers Payer Name Policy Type Policy Number Effective Date Expiration Date S jose MEDICARE A B [id number] 2013 00:00:00 [employer] MEDICARE HMO [id number] 2018 POS 00:00:00 MEDICARE PART A AND [id number] 2013 B 00:00:00 AETNA NON [id number] 2000 CONTRACTED 00:00:00 Problems Condition Condition Condition Status Onset Resolution Last Treating Co mments Source Name Details Category Date Date Treatment Clinician Date Hyperkalem Hyperkalem Disease Active M D ia ia 7- Anderso 00:00: n 00 Nephrostom Nephrostom Disease Active M D y y 6 Anderso 00:00: n 00 Infection Infection Disease Active due to due to 08-06 Anderso Human Human 00:00: n parainflue parainflue 00 nza virus nza virus 3 3 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 00:00: n syndrome syndrome 00 Fever Fever Disease Active presenting presenting 04-08 An derso with with 00:00: n conditions conditions 00 classified classified elsewhere elsewhere Blood Blood Disease Active coagulatio coagulatio 04-08 An derso n disorder n disorder 00:00: n 00 Renal Renal Disease Active insufficie insufficie 2-01 An derso ncy ncy 00:00: n 00 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 00:00: n of bone of bone 00 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 2-30 An derso aurelia aurelia 00:00: n malnutriti malnutriti 00 on on Neuropathy Neuropathy Disease Active 2019-03 M D 2-09 Anderso 00:00: n 00 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 00:00: n of of 00 overlappin overlappin g lesion g lesion of urinary of urinary organ organ Encounter Encounter Disease Active 2019-03 MD for for 0-13 Anderso antineopla antineopla 00:00: n stic chemo stic chemo 00 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 0-13 An derso disease disease 00:00: n 00 Paraplegia Paraplegia Disease Active M D 9- Anderso 00:00: n 00 Personal Personal Disease Active MD history of history of 12-03 An derso malignant malignant 00:00: n neoplasm neoplasm 00 of bladder of bladder Essential Essential Disease Active MD hypertensi hypertensi 8-26 An derso on on 00:00: n 00 Benign Benign Disease Active MD prostatic prostatic 8-26 Raymundo rso hyperplasi hyperplasi 00:00: n a a 00 H/O: H/O: Disease Active poliomyeli poliomyeli 8-26 An derso tis tis 00:00: n 00 FOLLOW UP [facility] 10[facility]22:00 l WITH QUALITY ENG FOLLOW 00:00: Bhavin ALEX UP CLINIC 00 WITH QUALITY ENG ABI Active 09/29/2018 [facility] EVAL Diagnosis Active 2018-10-19 [facility] oria 09-01 09:45:00 l EVAL 00:00: [place] 00 Active 09/01/2018 [facility] Sleep Sleep Disease Active apnea apnea 1- Anderso 00:00: n 00 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 5- Andjuan lusi 00:00: n 00 PARAPLEGIA Diagnosis Active 2018-10-20 Memoria , 10:22:00 l UNSPECIFIE Bhavin n D PARAPLEGIA , UNSPECIFIE D Active [facility] Bacteremia Bacteremia Disease Resolve 2020-06-18 2020-06-18 MD james 04-10 00:00:00 09:43:51 Mitchell o 00:00: n 00 Sepsis Sepsis Disease Resolve 2020-06-18 2020-06-18 MD james 04-08 00:00:00 09:43:54 Mitchell o 00:00: n 00 Allergies, Adverse Reactions, Alerts Allergy Allergy Status Severity Reaction(s) Onset Inactive Treating Comm ents Source Name Type Date Date Clinician P[facility]ILL [facility] NO KNOWN Allergy Active [facility] Family History Family Member Diagnosis Comments Start Date Stop Date Source Natural father Stroke MD Candie ball Family member Cancer MD [place] Social History Social Habit Start Date Stop Date Quantity Comments Source History [facility] MD [place] Alcohol Frequency History [facility] MD [place] Alcohol Std Drinks History [facility] MD [place] Alcohol Binge Exposure to Not sure MD [place] SARS-CoV-2 (event) Alcohol intake 2021-05-05 2021-05-05 Ex-drinker MD Candie ball 00:00:00 00:00:00 (finding) Cigarettes smoked 2019-12-04 2019-12-04 MD Raymundo lala current (pack per 00:00:00 00:00:00 day) - Reported Cigarette 2019-12-04 2019-12-04 MD [place] pack-years 00:00:00 00:00:00 Tobacco use and 2019-12-04 2019-12-04 Former smokeless MD [place] exposure 00:00:00 00:00:00 tobacco user History SDOH 2019-12-04 2019-12-04 quit 2 beers per And gama Alcohol Comment 00:00:00 00:00:00 day 10 weeks ago Social History 2018-11-19 2018-11-19 [facility] 04:59:00 04:59:00 History of tobacco 2017-03-08 Snuff User And erson use 00:00:00 Sex [birth year] M MD Medrano on 00:00:00 00:00:00 Smoking Status Start Date Stop Date Source Ex-smoker 2019-12-04 00:00:00 2019-12-04 00:00:00 MD Porras son Medications Ordered Filled Start Stop Current Ordering Indication Dosage Frequency Signature Comments Components Source Medication Medication Date Date Medication? Clinician (SIG) Name Name HYDROcodone Yes Neuropathy, 1{tbl} Take 1 MD -acetaminop 4-07 not tablet by And erso talisha (NORCO) 00:00: otherwise mouth n 10 mg-325 00 specified every 6 mg per (six) tablet hours as needed for moderate pain or severe pain. senna Yes 2{tbl} Take 2 MD (senna) 8.6 4-05 tablets by An derso mg tablet 21:35: mouth n 59 twice daily. multivitami Yes 1{capsu Take 1 M D n capsule 4-05 le} capsule by Raymundo santiago 11:15: mouth n 49 daily. Vitamin Supplement . Bifidobacte Yes 1{capsu Take 1 M D rium 4-05 le} capsule by Andjuan luis infantis 11:15: mouth n (Align) 4 49 daily. mg cap acetaminoph Yes 500mg Take 500 M D en 4-05 mg by Candie (TYLENOL) 11:15: mouth. n 500 mg 49 Takes two tablet tablets every 6 hours as needed for pain. gabapentin Yes Neuropathy, 300mg Take 1 MD (NEURONTIN) 2-28 not capsule Vern so 300 mg 00:00: otherwise (300 mg) n capsule 00 specified by mouth twice daily. mirtazapine 0 Yes Insomnia 15mg Take 1 MD (REMERON) 2-28 due to tablet (15 An derso 15 mg 00:00: medical mg) by n tablet 00 condition mouth at bedtime. metoclopram 2021-0 Yes Early 5mg Take 1 MD rodri 2-28 satiety tablet (5 Anderso (Reglan) 5 00:00: mg) by n mg tablet 00 mouth 3 (three) times a day before meals. HYDROcodone 2021-0 2021- No Neuropathy, 1{tbl} Take 1 MD -acetaminop 2-28 04-07 not tablet by An derso hen (NORCO) 00:00: 00:00 otherwise mouth n 10 mg-325 00 :00 specified every 6 mg per (six) tablet hours as needed for moderate pain or severe pain. propranoloL Yes Poliomyelom TAKE 1 MD (INDERAL) -20 alacia TABLET BY And erso 60 mg 00:00: MOUTH n tablet 00 TWICE A DAY EVERY DAY TO PREVENT TREMORS HOLD IF SYSTOLIC BP LESS THAAN 110 mirtazapine 2021- No Insomnia 15mg Take 1 MD (REMERON) 03-10 due to tablet (15 A nderso 15 mg 00:00: 00:00 medical mg) by n tablet 00 :00 condition mouth at bedtime. HYDROcodone 2020-03 No Chronic 1{tbl} Take 1 MD -acetaminop 05-05 pain due to tablet by Anderso hen (NORCO) 00:00: 00:00 malignant mouth n 5 mg-325 mg 00 :00 neoplastic every 6 per tablet disease (six) hours as needed for moderate pain or severe pain. OLANZapine 2020-03 No 5mg Take 5 mg M D (ZyPREXA) 5 03-08 by mouth And erso mg tablet 20:26: 00:00 at n 05 :00 bedtime. gabapentin 2020-03 No Neuropathy, 300mg Take 1 MD (NEURONTIN) 03-08 not capsule Raymundo rso 300 mg 00:00: 00:00 otherwise (300 mg) n capsule 00 :00 specified by mouth twice daily. mirtazapine 2020-03 No Insomnia 7.5mg Take 1 MD (REMERON) 03-08 due to tablet Vern so 7.5 mg 00:00: 00:00 medical (7.5 mg) n tablet 00 :00 condition by mouth at bedtime. OLANZapine No Muscle 5mg Take 1 MD (ZyPREXA) 5 12-05 weakness tablet (5 Anderso mg tablet 00:00: 04:59 mg) by n 00 :00 mouth nightly as needed for anxiety or sleep for up to 30 days. mirtazapine 2020- No Insomnia 7.5mg Take 1 MD (REMERON) 09-04 due to tablet Vern so 7.5 mg 00:00: 00:00 medical (7.5 mg) n tablet 00 :00 condition by mouth at bedtime. triamcinolo 2020- No Primary Apply M D ne 09-04 urothelial topically And erso (KENALOG) 00:00: 00:00 carcinoma to n ointment 00 :00 of affected 0.1% overlapping area(s) 3 lesion of (three) urinary times a organ day. To apply over palms sodium 2020- No Primary 15g Take 60 mL M D polystyrene 09-03 urothelial (15 g) by Candie sulf-sorbtl 00:00: 04:59 carcinoma mouth once n (SPS, with 00 :00 of for 1 sorbitol,) overlapping dose. 15-20 lesion of gram/60 mL urinary suspension organ lidocaine-v 2020- No Localized 1cm Apply 1 cm MD it E-aloe 08-30 skin topically Raymundo rso vera-colg 00:00: 00:00 eruption 3 (three) n ([facility] 00 :00 due to drug times a with Aloe) taken day. 2 % gel internally acetaminoph 2020- No 325mg Take 325 MD en 08-27-22 mg by Andjuan luis (TYLENOL) 14:03: 00:00 mouth n 325 mg 24 :00 every 6 tablet (six) hours as needed for mild pain. Take temperatur e PRIOR to each dose. Maximum daily dose = 4 grams/24 hours. ciprofloxac 2020- No Fever of 750mg Take 1 MD in HCl 08-27 unknown tablet Anderso (CIPRO) 750 00:00: 00:00 origin (750 mg) n mg tablet 00 :00 (FUO) by mouth twice daily. Stop date: 09/03/20. sulfamethox 2020- No Fever of 2{tbl} Take 2 MD azole-trime 08-27 unknown tablets by Andersgiuseppe thoprim 00:00: 00:00 origin mouth n (BACTRIM 00 :00 (FUO) twice DS) 800 daily. mg-160 mg Stop date: per tablet 09/03/20. metoclopram Anorexia 10mg TAKE 1 MD rodri 08-21 TABLET (10 Anderso (REGLAN) 10 00:00: 00:00 MG) BY n mg tablet 00 :00 MOUTH 4 (FOUR) TIMES A DAY BEFORE MEALS AND NIGHTLY. propranoloL essential 60mg Take 1 MD (INDERAL) 08-07 tremor tablet (60 A nderso 60 mg 00:00: 00:00 mg) by n tablet 00 :00 mouth twice daily. To prevent tremors. Hold for systolic blood pressure less than 110 and/or heart rate less than 60. propranoloL Tremor TAKE 1 M D (INDERAL) 08-07 TABLET BY Raymundo rso 60 mg 00:00: 00:00 MOUTH n tablet 00 :00 THREE TIMES A DAY TO PREVENT TREMORS HOLD FOR SYTOLIC BLOOD PRESSURE LESS THAN 110 OR HEART REAT LESS THAN 55 levoFLOXaci Fever 500mg Take 1 M D n 08-07 tablet Anderso (LEVAQUIN) 00:00: 00:00 (500 mg) n 500 mg 00 :00 by mouth tablet daily. Avoid administra tion with antacids, sucralfate , and medication s containing iron, zinc, calcium or magnesium. gabapentin Neuropathy, 300mg Take 1 MD (NEURONTIN) 07-23 not capsule Raymundo rso 300 mg 00:00: 00:00 otherwise (300 mg) n capsule 00 :00 specified by mouth 3 (three) times a day. HYDROcodone Neoplasm 1{tbl} Take 1 MD -acetaminop 07-23-13 related tablet by Andersgiuseppe hen ([place]) 00:00: 00:00 pain mouth n 5 mg-325 mg 00 :00 (acute) every 6 per tablet (chronic) (six) hours as needed for moderate pain or severe pain. mirtazapine No Insomnia 7.5mg Take 1 MD (REMERON) 07-23 due to tablet Vern so 7.5 mg 00:00: 00:00 medical (7.5 mg) n tablet 00 :00 condition by mouth at bedtime. senna-docus 2020- No Personal 2{tbl} Take 2 MD ate 18 -25 history of tablets by An derso (SENOKOT-S) 00:00: 00:00 malignant mouth n 8.6 mg-50 00 :00 neoplasm of twice mg tablet bladder daily. Available over the counter. Hold for diarrhea/l oose stools. metoclopram 2020- No Anorexia 10mg Take 1 MD rodri 07-23-16 tablet (10 Anderso (REGLAN) 10 00:00: 00:00 mg) by n mg tablet 00 :00 mouth 4 (four) times a day before meals and nightly. senna-docus 2020- No Personal 1{tbl} Take 1 MD ate 07-23-18 history of tablet by And erso (SENOKOT-S) 00:00: 00:00 malignant mouth 2 n 8.6 mg-50 00 :00 neoplasm of (two) mg tablet bladder times a day as needed for constipati on. Available over the counter. Hold for diarrhea/l oose stools. melatonin 2020- No 10mg Take 10 mg M D 10 mg TbER 07-16 05-11 by mouth Raymundo rso 09:47: 00:00 as needed. n 09 :00 Insomnia / Sleep. gabapentin 2020- No Neuropathy, 300mg Take 1 MD (NEURONTIN) 4-13 -18 not capsule Raymundo rso 300 mg 00:00: 00:00 otherwise (300 mg) n capsule 00 :00 specified by mouth twice daily. lidocaine-p Yes Encounter APPLY TO MD rilocaine 2-27 for PORT-A-CAT Raymundo rso (EMLA) 00:00: adjustment H AREA 30 n 2.5-2.5% 00 and TO 45 cream management MINUTES of vascular PRIOR TO access PORT device ACCESS DIRECTED (TOPICAL ANESTHETIC ). gabapentin 2020- No Neuropathy, TAKE 1 MD (NEURONTIN) 2-28 06-13 not CAPSULE BY A nderso 300 mg 00:00: 00:00 otherwise MOUTH AT n capsule 00 :00 specified BEDTIME polyethylen 2020- Yes Personal 17g Take 17 g MD e glycol 2-05 history of by mouth A nderso (MIRALAX) 00:00: malignant daily. n 17 g packet 00 neoplasm of Constipati bladder on. Available over the counter. Hold for diarrhea/l oose stools. potassium Personal 500mg Take 1 phosphate, 04-12 history of tablet Anderso monobasic, 00:00: 00:00 malignant (500 mg) n (K-Phos 00 :00 neoplasm of by mouth Original) bladder twice 500 mg daily. tablet Potassium / Phosphorus Supplement . Take for the next 5 days. senna-docus Personal 1{tbl} Take 1 ate 04-12 history of tablet by And erso (SENOKOT-S) 00:00: 00:00 malignant mouth 2 n 8.6 mg-50 00 :00 neoplasm of (two) mg tablet bladder times a day as needed for constipati on. Available over the counter. Hold for diarrhea/l oose stools. magic 2019-03 Ulcerative 10mL Swish and mouthwash 04-17 oral swallow 10 And erso (sucralfate 00:00: 00:00 mucositis mL 4 n /maalox/dip 00 :00 due to (four) henhydramin antineoplas times a e) tic therapy day as (AMB-CMPD) needed for mouth pain. propranolol 2019-03 Tremor 60mg Take 1 M D (INDERAL) 04-09 tablet (60 And erso 60 mg 00:00: 00:00 mg) by n tablet 00 :00 mouth 3 (three) times a day. To prevent tremors. Hold for systolic blood pressure less than 110 or heart rate less than 55 tamsulosin Yes .4mg Take 0.4 MD (FLOMAX) 7-01 mg by Anderso 0.4 mg 24 00:00: mouth n hr capsule 00 daily. Urinary flow Immunizations Ordered Immunization Filled Immunization Date Status Commen ts Source Name Name [facility] SARS-CoV-2 2020-12-15 Completed MD Fonseca rson Vaccination 00:00:00 Pfizer SARS-CoV-2 2020-05-05 Completed MD Fonseca rson Vaccination 00:00:00 Pfizer SARS-CoV-2 2020-04-06 Completed MD Fonseca rson Vaccination 00:00:00 Vital Signs Vital Name Observation Time Observation Value Comments Source HEIGHT 2019-11-01 175.3 cm 00:00:00 WEIGHT 2019-11-01 90.719 kg 00:00:00 WEIGHT 2020-08-13 69.9 kg 11:08:46 WEIGHT 2020-08-13 69.9 kg 11:08:46 HEIGHT 2020-08-06 175.3 cm 23:00:00 WEIGHT 2020-08-06 72.9 kg 03:49:01 HEIGHT 2020-08-06 175.3 cm 23:00:00 WEIGHT 2020-08-06 72.9 kg 03:49:01 WEIGHT 2020-07-30 71.4 kg 13:24:22 WEIGHT 2020-07-30 71.4 kg 13:24:22 HEIGHT 2020-07-30 175 cm 11:45:00 WEIGHT 2020-07-30 71.4 kg 11:45:00 HEIGHT 2020-07-30 175 cm 11:45:00 WEIGHT 2020-07-30 71.4 kg 11:45:00 WEIGHT 2020-07-16 73.1 kg 10:49:04 WEIGHT 2020-07-16 73.1 kg 10:49:04 HEIGHT 2020-07-16 175 cm 09:34:00 WEIGHT 2020-07-16 73.1 kg 09:34:00 HEIGHT 2020-07-16 175 cm 09:34:00 WEIGHT 2020-07-16 73.1 kg 09:34:00 HEIGHT 2020-07-02 175 cm 13:08:00 WEIGHT 2020-07-02 70 kg 13:08:00 HEIGHT 2020-07-02 175 cm 13:08:00 WEIGHT 2020-07-02 70 kg 13:08:00 WEIGHT 2020-06-18 69.9 kg 10:32:04 WEIGHT 2020-06-18 69.9 kg 10:32:04 HEIGHT 2020-06-18 175 cm 09:08:00 WEIGHT 2020-06-18 69.9 kg 09:08:00 HEIGHT 2020-06-18 175 cm 09:08:00 WEIGHT 2020-06-18 69.9 kg 09:08:00 WEIGHT 2020-06-04 71.9 kg 16:53:05 WEIGHT 2020-05-17 71.3 kg 13:08:39 WEIGHT 2020-05-03 72.9 kg 10:27:00 WEIGHT 2020-04-19 76.4 kg 10:11:00 HEIGHT 2020-04-09 175 cm 03:31:00 WEIGHT 2020-04-09 75.1 kg 03:31:00 WEIGHT 2020-03-26 78 kg 14:40:38 HEIGHT 2020-03-26 175 cm 10:05:38 WEIGHT 2020-03-26 78 kg 10:05:38 WEIGHT 2020-03-08 88.3 kg 05:00:00 HEIGHT 2020-03-05 175 cm 11:44:00 WEIGHT 2020-03-05 79.6 kg 11:44:00 WEIGHT 2020-02-16 86.3 kg 03:16:32 HEIGHT 2020-02-13 175 cm 14:15:00 WEIGHT 2020-02-13 81 kg 14:15:00 WEIGHT 2020-02-09 82 kg 12:35:00 2020-01-29 81.9 kg 03:28:32 HEIGHT 2020-01-26 175 cm 15:48:00 WEIGHT 2020-01-26 86.7 kg 12:44:00 2020-01-12 90.7 kg 04:32:13 HEIGHT 2020-01-09 175.3 cm 11:00:00 2020-01-09 87.9 kg 08:29:52 WEIGHT 2020-01-02 88 kg 13:03:02 2020-01-02 88 kg 08:26:52 2019-12-20 85.6 kg 07:04:00 2019-12-18 175.3 cm 09:40:00 WEIGHT 2019-12-18 86.183 kg 09:40:00 WEIGHT 2019-12-12 85.3 kg 11:26:42 WEIGHT 2019-12-08 85.4 kg 04:08:02 HEIGHT 2019-12-07 175.3 cm 20:16:00 HEIGHT 2019-12-05 81.6 cm 11:07:00 WEIGHT 2019-12-04 81.647 kg 10:58:00 HEIGHT 2019-11-01 175.3 cm 00:00:00 WEIGHT 2019-11-01 90.719 kg 00:00:00 Systolic blood 2021-06-10 120 mm[Hg] MD Nitin pressure 17:47:52 Diastolic blood 2021-06-10 76 mm[Hg] MD [place] pressure 17:47:52 Heart rate 2021-06-10 66 /min MD [place] 17:47:52 Body temperature 2021-06-10 36.78 Svetlana MD [place] 17:47:52 Respiratory rate 2021-06-10 18 /min MD [place] 17:47:52 Oxygen saturation 2021-06-10 98 /min MD Candie ball in Arterial blood 17:47:52 by Pulse oximetry Body weight 2021-06-10 72.7 kg pt in wheelchair MD [place] 15:31:00 BMI 2021-06-10 23.66 kg/m2 MD [place] 15:31:00 Body height 2021-05-13 175.3 cm MD [place] 15:35:00 Systolic (mm Hg) 2018-10-20 [facility] 16:08:00 [place] Diastolic (mm Hg) 2018-10-20 [facility] 16:08:00 Nomi Weight 2018-10-20 [facility] 16:08:00 Nomi Height 2018-09-07 175.26 cm [facility] 19:08:00 Nomi Procedures Procedure Date / Time Performed Performing Clinician [facility]ly [facility] e CT CHEST ABDOMEN PELVIS W 2021-06-07 17:52:55 Uthup, Leonor [place] CONTRAST NM BONE SCAN WHOLE BODY 2021-06-06 17:31:00 UtLeonor hearn MD COMPLETE BLOOD COUNT W/ 2021-06-06 14:58:00 UthuLeonor mcdermott MD DIFFERENTIAL COMPREHENSIVE METABOLIC PANEL 2021-06-06 14:58:00 UtLeonor hearn MD FREE THYROXINE 2021-06-06 14:58:00 UthupLeonor MD MAGNESIUM LEVEL 2021-06-06 14:58:00 UthupLeonor MD THYROID STIMULATING HORMONE 2021-06-06 14:58:00 UthupLeonor MD ADRENOCORTICOTROPIC HORMONE 2021-06-06 14:58:00 UthupLeonor MD C REACTIVE PROTEIN 2021-06-06 14:58:00 UtLeonor hearn MD on CORTISOL 2021-06-06 14:58:00 UthuLeonor mcdermott MD SEDIMENTATION RATE 2021-06-06 14:58:00 Uthup, Leonor Medrano on NON-AUTOMATED AMYLASE LEVEL 2021-06-06 14:58:00 Uthup, Leonor [place] LIPASE LEVEL 2021-06-06 14:58:00 Uthup, Leonor [place] Results CBC 2021-06-06 14:58:00 Uthup, Leonor [place] MANUAL DIFFERENTIAL 2021-06-06 14:58:00 Uthup, Leonor Porras son GLUCOSE LEVEL 2021-06-06 14:58:00 Uthup, Leonor [place] BLOOD UREA NITROGEN 2021-06-06 14:58:00 Uthup, Leonor MATHEW Vern son ELECTROLYTE PANEL 2021-06-06 14:58:00 Uthup, Leonor Schreiber n SERUM CREATININE 2021-06-06 14:58:00 Uthup, Leonor [place] .GLOMERULAR FILTRATION RATE 2021-06-06 14:58:00 Uthup, Leonor [place] CALCIUM LEVEL TOTAL 2021-06-06 14:58:00 Uthup, Leonor Porras son ALBUMIN LEVEL 2021-06-06 14:58:00 Uthup, Leonor [place] ALKALINE PHOSPHATASE 2021-06-06 14:58:00 Uthup, Leonor Fonseca rsjvuenal ALANINE AMINOTRANSFERASE 2021-06-06 14:58:00 Uthup, Leonor [place] ASPARTATE AMINOTRANSFERASE 2021-06-06 14:58:00 Uthup, Leonor [place] TOTAL PROTEIN 2021-06-06 14:58:00 Uthup, Leonor [place] FRACTIONATED BILIRUBIN 2021-06-06 14:58:00 Uthup, Leonor [place] THYROID STIMULATING HORMONE 2021-05-27 15:01:00 Uthup, Leonor [place] FREE THYROXINE 2021-05-27 15:01:00 Uthup, Leonor [place] AMYLASE LEVEL 2021-05-27 15:01:00 Uthup, Leonor [place] LIPASE LEVEL 2021-05-27 15:01:00 Uthup, Leonor [place] COMPLETE BLOOD COUNT W/ 2021-05-27 15:01:00 Uthup, Leonor tay DIFFERENTIAL MAGNESIUM LEVEL 2021-05-27 15:01:00 Uthup, Leonor [place] COMPREHENSIVE METABOLIC PANEL 2021-05-27 15:01:00 Uthup, Leonor [place] GLUCOSE LEVEL 2021-05-27 15:01:00 Uthup, Leonor [place] BLOOD UREA NITROGEN 2021-05-27 15:01:00 Uthup, Leonor Porras son ELECTROLYTE PANEL 2021-05-27 15:01:00 Uthup, Leonor ball SERUM CREATININE 2021-05-27 15:01:00 Uthup, Leonor [place] .GLOMERULAR FILTRATION RATE 2021-05-27 15:01:00 Uthup, Leonor [place] CALCIUM LEVEL TOTAL 2021-05-27 15:01:00 Uthup, Leonor galvan ALBUMIN LEVEL 2021-05-27 15:01:00 Uthup, Leonor [place] ALKALINE PHOSPHATASE 2021-05-27 15:01:00 Uthup, Leonor Fonseca rsjuvenal ALANINE AMINOTRANSFERASE 2021-05-27 15:01:00 Uthup, Leonor [place] ASPARTATE AMINOTRANSFERASE 2021-05-27 15:01:00 Uthup, Leonor [place] TOTAL PROTEIN 2021-05-27 15:01:00 Uthup, Leonor [place] FRACTIONATED BILIRUBIN 2021-05-27 15:01:00 Uthup, Leonor [place] Results CBC 2021-05-27 15:01:00 Uthup, Leonor [place] MANUAL DIFFERENTIAL 2021-05-27 15:01:00 Uthup, Leonor galvan COMPLETE BLOOD COUNT W/ 2021-05-13 15:31:00 Uthup, Leonor Kim nderson DIFFERENTIAL MAGNESIUM LEVEL 2021-05-13 15:31:00 Uthup, Leonor Taveras COMPREHENSIVE METABOLIC PANEL 2021-05-13 15:31:00 Uthup, Leonor Taveras Results CBC 2021-05-13 15:31:00 Uthup, Leonor Taveras MANUAL DIFFERENTIAL 2021-05-13 15:31:00 Uthup, Leonor Porras son GLUCOSE LEVEL 2021-05-13 15:31:00 Uthup, Leonor Taveras BLOOD UREA NITROGEN 2021-05-13 15:31:00 Uthup, Leonor Porras son ELECTROLYTE PANEL 2021-05-13 15:31:00 Uthup, Leonor ball SERUM CREATININE 2021-05-13 15:31:00 Uthup, Leonor Taveras .GLOMERULAR FILTRATION RATE 2021-05-13 15:31:00 Uthup, Leonor Taveras CALCIUM LEVEL TOTAL 2021-05-13 15:31:00 Uthup, Leonor Porras son ALBUMIN LEVEL 2021-05-13 15:31:00 Uthup, Leonor Taveras ALKALINE PHOSPHATASE 2021-05-13 15:31:00 Uthup, Leonor Fonseca rsjuvenal ALANINE AMINOTRANSFERASE 2021-05-13 15:31:00 Uthup, Leonor Taveras ASPARTATE AMINOTRANSFERASE 2021-05-13 15:31:00 Uthup, Leonor Taveras TOTAL PROTEIN 2021-05-13 15:31:00 Uthup, Leonor Taveras FRACTIONATED BILIRUBIN 2021-05-13 15:31:00 Uthup, Leonor dinhson THYROID STIMULATING HORMONE 2021-04-29 15:53:00 Uthup, Leonor Taveras FREE THYROXINE 2021-04-29 15:53:00 Uthup, Leonor Taveras AMYLASE LEVEL 2021-04-29 15:53:00 Uthup, Leonor Taveras LIPASE LEVEL 2021-04-29 15:53:00 Uthup, Leonor Taveras COMPLETE BLOOD COUNT W/ 2021-04-29 15:53:00 Uthup, Leonor Kim ndersjuvenal DIFFERENTIAL MAGNESIUM LEVEL 2021-04-29 15:53:00 Uthup, Leonor Taveras COMPREHENSIVE METABOLIC PANEL 2021-04-29 15:53:00 Uthup, Leonor Taveras GLUCOSE LEVEL 2021-04-29 15:53:00 Uthup, Leonor Taveras BLOOD UREA NITROGEN 2021-04-29 15:53:00 Uthup, Leonor MATHEW Vern son ELECTROLYTE PANEL 2021-04-29 15:53:00 Uthup, Leonor ball SERUM CREATININE 2021-04-29 15:53:00 Uthup, Leonor Taveras .GLOMERULAR FILTRATION RATE 2021-04-29 15:53:00 Uthup, Leonor Taveras CALCIUM LEVEL TOTAL 2021-04-29 15:53:00 Uthup, Leonor Bakerer son ALBUMIN LEVEL 2021-04-29 15:53:00 Uthup, Leonor Taveras ALKALINE PHOSPHATASE 2021-04-29 15:53:00 Uthup, Leoonr Fonseca rson ALANINE AMINOTRANSFERASE 2021-04-29 15:53:00 Uthup, Leonor Taveras ASPARTATE AMINOTRANSFERASE 2021-04-29 15:53:00 Uthup, Leonor Taveras TOTAL PROTEIN 2021-04-29 15:53:00 Uthup, Leonor Taveras FRACTIONATED BILIRUBIN 2021-04-29 15:53:00 Uthup, Leonor Bay derson Results CBC 2021-04-29 15:53:00 Uthup, Leonor Taveras MANUAL DIFFERENTIAL 2021-04-29 15:53:00 Uthup, Leonor Porras [facility] COMPLETE BLOOD COUNT W/ 2021-04-15 15:30:00 Uthup, Leonor Kim nderson DIFFERENTIAL MAGNESIUM LEVEL 2021-04-15 15:30:00 Uthup, Leonor Taveras COMPREHENSIVE METABOLIC PANEL 2021-04-15 15:30:00 Uthup, Leonor Taveras Results CBC 2021-04-15 15:30:00 Uthup, Leonor Taveras MANUAL DIFFERENTIAL 2021-04-15 15:30:00 Uthup, Leonor Porras son GLUCOSE LEVEL 2021-04-15 15:30:00 Uthup, Leonor Taveras BLOOD UREA NITROGEN 2021-04-15 15:30:00 Uthup, Leonor Porras son ELECTROLYTE PANEL 2021-04-15 15:30:00 Uthup, Leonor Schreiber n SERUM CREATININE 2021-04-15 15:30:00 Uthup, Leonor Taveras .GLOMERULAR FILTRATION RATE 2021-04-15 15:30:00 Uthup, Leonor Taveras CALCIUM LEVEL TOTAL 2021-04-15 15:30:00 Uthup, Leonor Porras son ALBUMIN LEVEL 2021-04-15 15:30:00 Uthup, Leonor Taveras ALKALINE PHOSPHATASE 2021-04-15 15:30:00 Uthup, Leonor Fonseca rson ALANINE AMINOTRANSFERASE 2021-04-15 15:30:00 Uthup, Leonor Taveras ASPARTATE AMINOTRANSFERASE 2021-04-15 15:30:00 Uthup, Leonor Taveras TOTAL PROTEIN 2021-04-15 15:30:00 Uthup, Leonor Taveras FRACTIONATED BILIRUBIN 2021-04-15 15:30:00 Uthup, Leonor ojeda XR HIP 2 VW BILATERAL W PELVIS 2021-04-04 18:56:10 Iwona Vaughn MD THYROID STIMULATING HORMONE 2021-04-01 15:45:00 Uthup, Leonor Taveras FREE THYROXINE 2021-04-01 15:45:00 Uthup, Leonor Taveras AMYLASE LEVEL 2021-04-01 15:45:00 Uthup, Leonor Taveras LIPASE LEVEL 2021-04-01 15:45:00 Uthup, Leonor Taveras COMPLETE BLOOD COUNT W/ 2021-04-01 15:45:00 Uthup, Leonor Kim ndersjuvenal DIFFERENTIAL MAGNESIUM LEVEL 2021-04-01 15:45:00 Uthup, Leonor Taveras COMPREHENSIVE METABOLIC PANEL 2021-04-01 15:45:00 Uthup, Leonor Taveras GLUCOSE LEVEL 2021-04-01 15:45:00 Uthup, Leonor Taveras BLOOD UREA NITROGEN 2021-04-01 15:45:00 Uthup, Leonor Porras son ELECTROLYTE PANEL 2021-04-01 15:45:00 Uthup, Leonor ball SERUM CREATININE 2021-04-01 15:45:00 Uthup, Leonor Taveras .GLOMERULAR FILTRATION RATE 2021-04-01 15:45:00 Uthup, Leonor Taveras CALCIUM LEVEL TOTAL 2021-04-01 15:45:00 Uthup, Leonor MATHEW Vern son ALBUMIN LEVEL 2021-04-01 15:45:00 Uthup, Leonor Taveras ALKALINE PHOSPHATASE 2021-04-01 15:45:00 Uthup, Leonor lala ALANINE AMINOTRANSFERASE 2021-04-01 15:45:00 Uthup, Leonor Taveras ASPARTATE AMINOTRANSFERASE 2021-04-01 15:45:00 Uthup, Leonor Taveras TOTAL PROTEIN 2021-04-01 15:45:00 Uthup, Leonor Taveras FRACTIONATED BILIRUBIN 2021-04-01 15:45:00 Uthup, Leonor Bay derson Results CBC 2021-04-01 15:45:00 Uthup, Leonor Taveras MANUAL DIFFERENTIAL 2021-04-01 15:45:00 Uthup, Leonor Porras son CT CHEST ABDOMEN PELVIS W 2021-03-31 20:26:23 Uthubaldemar, Leonor Taveras CONTRAST POC CREATININE 2021-03-31 19:33:00 Uthup, Leonor Taveras NM BONE SCAN WHOLE BODY 2021-03-28 19:23:00 Uthup, Leonor cooleyrson IR NEPHROSTOMY EXCHANGE 2021-03-21 16:38:17 Uthup, Leonor cooleyrson SERUM CREATININE 2021-03-17 19:29:00 Ansley Rizvi MD PROTHROMBIN TIME 2021-03-17 19:29:00 Ansley Rizvi MD COMPLETE BLOOD COUNT W/ 2021-03-17 19:29:00 Uthup, Leonor chrison DIFFERENTIAL MAGNESIUM LEVEL 2021-03-17 19:29:00 Uthup, Leonor Taveras COMPREHENSIVE METABOLIC PANEL 2021-03-17 19:29:00 Uthup, Leonor Taveras Results CBC 2021-03-17 19:29:00 Uthup, Leonor Taveras SERUM CREATININE 2021-03-17 19:29:00 Ansley Rizvi MD MANUAL DIFFERENTIAL 2021-03-17 19:29:00 Uthup, Leonor Porras son .GLOMERULAR FILTRATION RATE 2021-03-17 19:29:00 Ansley Rizvi MD GLUCOSE LEVEL 2021-03-17 19:29:00 Uthup, Leonor Taveras BLOOD UREA NITROGEN 2021-03-17 19:29:00 Uthup, Leonor galvan ELECTROLYTE PANEL 2021-03-17 19:29:00 Uthup, Leonor ball CALCIUM LEVEL TOTAL 2021-03-17 19:29:00 Uthup, Leonor galvan ALBUMIN LEVEL 2021-03-17 19:29:00 Uthup, Leonor Taveras ALKALINE PHOSPHATASE 2021-03-17 19:29:00 Uthup, Leonor Fonseca rson ALANINE AMINOTRANSFERASE 2021-03-17 19:29:00 Uthup, Leonor Taveras ASPARTATE AMINOTRANSFERASE 2021-03-17 19:29:00 Uthup, Leonor Taveras TOTAL PROTEIN 2021-03-17 19:29:00 Uthup, Leonor Taveras FRACTIONATED BILIRUBIN 2021-03-17 19:29:00 Uthup, Leonor Bay derson XR FEMUR 2 VW RIGHT 2021-03-04 19:51:29 Joan Vaughn MD Vern son XR HIP 2 OR 3 VW W PELVIS RIGHT 2021-03-04 19:51:18 Madyson Vaughn MD THYROID STIMULATING HORMONE 2021-03-04 14:17:00 Uthup, Leonor Taveras FREE THYROXINE 2021-03-04 14:17:00 Uthup, Leonor Taveras AMYLASE LEVEL 2021-03-04 14:17:00 Uthup, Leonor Taveras LIPASE LEVEL 2021-03-04 14:17:00 Uthup, Leonor Taveras COMPLETE BLOOD COUNT W/ 2021-03-04 14:17:00 Uthup, Leonor Kim ndersjuvenal DIFFERENTIAL MAGNESIUM LEVEL 2021-03-04 14:17:00 Uthup, Leonor Taveras COMPREHENSIVE METABOLIC PANEL 2021-03-04 14:17:00 Uthup, Leonor Taveras GLUCOSE LEVEL 2021-03-04 14:17:00 Uthup, Leonor Taveras BLOOD UREA NITROGEN 2021-03-04 14:17:00 Uthup, Leonor MATHEW Vern son ELECTROLYTE PANEL 2021-03-04 14:17:00 Uthup, Leonor Medrano n SERUM CREATININE 2021-03-04 14:17:00 Uthup, Leonor Taveras .GLOMERULAR FILTRATION RATE 2021-03-04 14:17:00 Uthup, Leonor Taveras CALCIUM LEVEL TOTAL 2021-03-04 14:17:00 Uthup, Leonor MATHEW Vern son ALBUMIN LEVEL 2021-03-04 14:17:00 Uthup, Leonor Taveras ALKALINE PHOSPHATASE 2021-03-04 14:17:00 Uthup, Leonor Fonseca rson ALANINE AMINOTRANSFERASE 2021-03-04 14:17:00 Uthup, Leonor Taveras ASPARTATE AMINOTRANSFERASE 2021-03-04 14:17:00 Uthubaldemar, Leonor Taveras Results CBC 2021-03-04 14:17:00 Uthup, Leonor Tvaeras TOTAL PROTEIN 2021-03-04 14:17:00 UthuLeonor mcdermott MD MANUAL DIFFERENTIAL 2021-03-04 14:17:00 Uthup, Leonor MATHEW Vern son FRACTIONATED BILIRUBIN 2021-03-04 14:17:00 Uthup, Leonor Bay derson XR FEMUR 2 VW RIGHT 2021-02-19 17:25:14 Joan Vaughn MD Vern son XR HIP 2 OR 3 VW W PELVIS RIGHT 2021-02-19 17:20:45 Madyson Vaughn MD COMPLETE BLOOD COUNT W/ 2021-02-17 17:56:00 Uthup, Lenoor Kim nderson DIFFERENTIAL MAGNESIUM LEVEL 2021-02-17 17:56:00 Uthup, Leonor Taveras COMPREHENSIVE METABOLIC PANEL 2021-02-17 17:56:00 Uthup, Leonor Taveras Results CBC 2021-02-17 17:56:00 Uthup, Leonor Taveras MANUAL DIFFERENTIAL 2021-02-17 17:56:00 Uthup, Leonor MATHEW Vern son GLUCOSE LEVEL 2021-02-17 17:56:00 Uthup, Leonor Taveras ELECTROLYTE PANEL 2021-02-17 17:56:00 Uthup, Leonor Medranoo n SERUM CREATININE 2021-02-17 17:56:00 Uthup, Leonor Taveras .GLOMERULAR FILTRATION RATE 2021-02-17 17:56:00 Uthup, Leonor Taveras CALCIUM LEVEL TOTAL 2021-02-17 17:56:00 Uthup, Leonor MATHEW Vern son ALBUMIN LEVEL 2021-02-17 17:56:00 Uthup, Leonor Taveras ALKALINE PHOSPHATASE 2021-02-17 17:56:00 Uthup, Leonor Bakere rson ALANINE AMINOTRANSFERASE 2021-02-17 17:56:00 Uthup, Leonor Taveras ASPARTATE AMINOTRANSFERASE 2021-02-17 17:56:00 UthupLeonor TOTAL PROTEIN 2021-02-17 17:56:00 Uthup, Leonor Taveras FRACTIONATED BILIRUBIN 2021-02-17 17:56:00 Uthup, Leonor Bay derson BLOOD UREA NITROGEN 2021-02-17 17:56:00 Uthup, Leonor MATHEW Vern son CT CHEST ABDOMEN PELVIS W 2021-02-03 22:43:40 Uthup, Leonor Taveras CONTRAST NM BONE SCAN WHOLE BODY 2021-02-03 18:24:00 Uthup, Leonor cooleyrson THYROID STIMULATING HORMONE 2021-02-03 16:44:00 Uthup, Leonor Taveras FREE THYROXINE 2021-02-03 16:44:00 Uthup, Leonor Taveras AMYLASE LEVEL 2021-02-03 16:44:00 Uthup, Leonor Taveras LIPASE LEVEL 2021-02-03 16:44:00 Uthup, Leonor Taveras COMPLETE BLOOD COUNT W/ 2021-02-03 16:44:00 Uthup, Leonor cooleyrsjuvenal DIFFERENTIAL MAGNESIUM LEVEL 2021-02-03 16:44:00 Uthup, Leonor Taveras COMPREHENSIVE METABOLIC PANEL 2021-02-03 16:44:00 Uthup, Leonor Taveras GLUCOSE LEVEL 2021-02-03 16:44:00 Uthup, Leonor Taveras BLOOD UREA NITROGEN 2021-02-03 16:44:00 Uthup, Leonor MATHEW Vern son ELECTROLYTE PANEL 2021-02-03 16:44:00 Uthup, Leonor Medranoo n SERUM CREATININE 2021-02-03 16:44:00 Uthup, Leonor Taveras .GLOMERULAR FILTRATION RATE 2021-02-03 16:44:00 Uthup, Leonor Taveras CALCIUM LEVEL TOTAL 2021-02-03 16:44:00 Uthup, Leonor MATHEW Vern son ALBUMIN LEVEL 2021-02-03 16:44:00 Uthup, Leonor Taveras ALKALINE PHOSPHATASE 2021-02-03 16:44:00 Uthup, Leonor Fonseca rson ALANINE AMINOTRANSFERASE 2021-02-03 16:44:00 Uthup, Leonor Taveras ASPARTATE AMINOTRANSFERASE 2021-02-03 16:44:00 Uthup, Leonor Taveras TOTAL PROTEIN 2021-02-03 16:44:00 Uthup, Leonor Taveras FRACTIONATED BILIRUBIN 2021-02-03 16:44:00 Uthup, Leonor dinhson Results CBC 2021-02-03 16:44:00 Uthup, Leonor Taveras MANUAL DIFFERENTIAL 2021-02-03 16:44:00 Uthup, Leonor MATHEW Vern son COMPLETE BLOOD COUNT W/ 2021-01-21 15:49:00 Uthup, Leonor Kim nderson DIFFERENTIAL MAGNESIUM LEVEL 2021-01-21 15:49:00 Uthup, Leonor Taveras COMPREHENSIVE METABOLIC PANEL 2021-01-21 15:49:00 Uthup, Leonor Taveras Results CBC 2021-01-21 15:49:00 Uthup, Leonor Taveras MANUAL DIFFERENTIAL 2021-01-21 15:49:00 Uthup, Leonor MATHEW Vern son GLUCOSE LEVEL 2021-01-21 15:49:00 Uthup, Leonor Taveras BLOOD UREA NITROGEN 2021-01-21 15:49:00 Uthup, Leonor MATHEW Vern son ELECTROLYTE PANEL 2021-01-21 15:49:00 Uthup, Leonor Schreiber n SERUM CREATININE 2021-01-21 15:49:00 Uthup, Leonor Taveras .GLOMERULAR FILTRATION RATE 2021-01-21 15:49:00 Uthup, Leonor Taveras CALCIUM LEVEL TOTAL 2021-01-21 15:49:00 Uthup, Leonor MATHEW Vern son ALBUMIN LEVEL 2021-01-21 15:49:00 Uthup, Leonor Taveras ALKALINE PHOSPHATASE 2021-01-21 15:49:00 Uthup, Leonor Fonseca rson ALANINE AMINOTRANSFERASE 2021-01-21 15:49:00 Uthup, Leonor Taveras ASPARTATE AMINOTRANSFERASE 2021-01-21 15:49:00 Uthup, Leonor Taveras TOTAL PROTEIN 2021-01-21 15:49:00 Uthup, Leonor Taveras FRACTIONATED BILIRUBIN 2021-01-21 15:49:00 Uthup, Leonor dinhson THYROID STIMULATING HORMONE 2021-01-07 14:40:00 Uthup, Leonor Taveras FREE THYROXINE 2021-01-07 14:40:00 Uthup, Leonor Taveras AMYLASE LEVEL 2021-01-07 14:40:00 Uthup, Leonor Taveras LIPASE LEVEL 2021-01-07 14:40:00 Uthup, Leonor Taveras COMPLETE BLOOD COUNT W/ 2021-01-07 14:40:00 Uthup, Leonor Kim nderson DIFFERENTIAL MAGNESIUM LEVEL 2021-01-07 14:40:00 Uthup, Leonor Taveras COMPREHENSIVE METABOLIC PANEL 2021-01-07 14:40:00 Uthup, Leonor Taveras GLUCOSE LEVEL 2021-01-07 14:40:00 Uthup, Leonor Taveras BLOOD UREA NITROGEN 2021-01-07 14:40:00 Uthup, Leonor MATHEW Vern son ELECTROLYTE PANEL 2021-01-07 14:40:00 Uthup, Leonor ball SERUM CREATININE 2021-01-07 14:40:00 Uthup, Leonor Taveras .GLOMERULAR FILTRATION RATE 2021-01-07 14:40:00 Uthup, Leonor Taveras CALCIUM LEVEL TOTAL 2021-01-07 14:40:00 Uthup, Leonor MATHEW [facility] ALBUMIN LEVEL 2021-01-07 14:40:00 Uthup, Leonor Taveras ALKALINE PHOSPHATASE 2021-01-07 14:40:00 Uthup, Leonor Fonseca rsjuvenal ALANINE AMINOTRANSFERASE 2021-01-07 14:40:00 Uthup, Leonor Taveras ASPARTATE AMINOTRANSFERASE 2021-01-07 14:40:00 Uthup, Leonor Taveras TOTAL PROTEIN 2021-01-07 14:40:00 Uthup, Leonor Taveras FRACTIONATED BILIRUBIN 2021-01-07 14:40:00 Uthup, Leonor Bay derson Results CBC 2021-01-07 14:40:00 Uthup, Leonor Taveras MANUAL DIFFERENTIAL 2021-01-07 14:40:00 Uthup, Leonor Porras son COMPLETE BLOOD COUNT W/ 2020-12-24 15:40:00 Uthup, Leonor cooleyrson DIFFERENTIAL MAGNESIUM LEVEL 2020-12-24 15:40:00 Uthup, Leonor Tavears COMPREHENSIVE METABOLIC PANEL 2020-12-24 15:40:00 Uthup, Leonor Taveras Results CBC 2020-12-24 15:40:00 Uthup, Leonor Taveras MANUAL DIFFERENTIAL 2020-12-24 15:40:00 Uthup, Leonor Porras son GLUCOSE LEVEL 2020-12-24 15:40:00 Uthup, Leonor Taveras BLOOD UREA NITROGEN 2020-12-24 15:40:00 Uthup, Leonor MATHEW Vern son ELECTROLYTE PANEL 2020-12-24 15:40:00 Uthup, Leonor Medranoo n SERUM CREATININE 2020-12-24 15:40:00 Uthup, Leonor Taveras .GLOMERULAR FILTRATION RATE 2020-12-24 15:40:00 Uthup, Leonor Taveras CALCIUM LEVEL TOTAL 2020-12-24 15:40:00 Uthup, Leonor Porras son ALBUMIN LEVEL 2020-12-24 15:40:00 Uthup, Leonor Taveras ALKALINE PHOSPHATASE 2020-12-24 15:40:00 Uthup, Leonor Fonseca rson ALANINE AMINOTRANSFERASE 2020-12-24 15:40:00 Uthup, Leonor Taveras ASPARTATE AMINOTRANSFERASE 2020-12-24 15:40:00 Uthup, Leonor Taveras TOTAL PROTEIN 2020-12-24 15:40:00 Uthup, Leonor Taveras FRACTIONATED BILIRUBIN 2020-12-24 15:40:00 Uthup, Leonor Bay derson THYROID STIMULATING HORMONE 2020-12-10 17:33:00 Uthup, Leonor Taveras FREE THYROXINE 2020-12-10 17:33:00 Uthup, Leonor Taveras AMYLASE LEVEL 2020-12-10 17:33:00 Uthup, Leonor Taveras LIPASE LEVEL 2020-12-10 17:33:00 Uthup, Leonor Taveras COMPLETE BLOOD COUNT W/ 2020-12-10 17:33:00 Uthup, Leonor cooleyrsjuvenal DIFFERENTIAL MAGNESIUM LEVEL 2020-12-10 17:33:00 Uthup, Leonor Taveras COMPREHENSIVE METABOLIC PANEL 2020-12-10 17:33:00 Uthup, Leonor Taveras GLUCOSE LEVEL 2020-12-10 17:33:00 Uthup, Leonor Taveras BLOOD UREA NITROGEN 2020-12-10 17:33:00 Uthup, Leonor Porras son ELECTROLYTE PANEL 2020-12-10 17:33:00 Uthup, Leonor ball SERUM CREATININE 2020-12-10 17:33:00 Uthup, Leonor Taveras .GLOMERULAR FILTRATION RATE 2020-12-10 17:33:00 Uthup, Leonor Taveras CALCIUM LEVEL TOTAL 2020-12-10 17:33:00 Uthup, Leonor MATHEW Vern son ALBUMIN LEVEL 2020-12-10 17:33:00 Uthup, Leonor Taveras ALKALINE PHOSPHATASE 2020-12-10 17:33:00 Uthup, Leonor Bakere rson Results CBC 2020-12-10 17:33:00 Uthup, Leonor Taveras ALANINE AMINOTRANSFERASE 2020-12-10 17:33:00 Uthup, Leonor Taveras MANUAL DIFFERENTIAL 2020-12-10 17:33:00 Uthup, Leonor Porras son ASPARTATE AMINOTRANSFERASE 2020-12-10 17:33:00 Uthup, Leonor Taveras TOTAL PROTEIN 2020-12-10 17:33:00 Uthup, Leonor Taveras FRACTIONATED BILIRUBIN 2020-12-10 17:33:00 Uthup, Leonor dinhson IR NEPHROSTOMY EXCHANGE 2020-11-27 17:03:39 Christopher Fernandez MD COMPLETE BLOOD COUNT W/ 2020-11-26 15:38:00 Uthup, Leonor cooleyrsjuvenal DIFFERENTIAL COMPREHENSIVE METABOLIC PANEL 2020-11-26 15:38:00 Uthup, Leonor Taveras Results CBC 2020-11-26 15:38:00 Uthup, Leonor Taveras MANUAL DIFFERENTIAL 2020-11-26 15:38:00 Uthup, Leonor MATHEW Vern son GLUCOSE LEVEL 2020-11-26 15:38:00 Uthup, Leonor Taveras BLOOD UREA NITROGEN 2020-11-26 15:38:00 Uthup, Leonor MATHEW Vern son ELECTROLYTE PANEL 2020-11-26 15:38:00 Uthup, Leonor ball SERUM CREATININE 2020-11-26 15:38:00 Uthup, Leonor Taveras .GLOMERULAR FILTRATION RATE 2020-11-26 15:38:00 Uthup, Leonor Taveras CALCIUM LEVEL TOTAL 2020-11-26 15:38:00 Uthup, Leonor MATHEW Vern son ALBUMIN LEVEL 2020-11-26 15:38:00 Uthup, Leonor Taveras ALKALINE PHOSPHATASE 2020-11-26 15:38:00 Uthup, Leonor Fonseca rson ALANINE AMINOTRANSFERASE 2020-11-26 15:38:00 Uthup, Leonor Taveras ASPARTATE AMINOTRANSFERASE 2020-11-26 15:38:00 Uthup, Leonor Taveras TOTAL PROTEIN 2020-11-26 15:38:00 Uthup, Leonor Taveras FRACTIONATED BILIRUBIN 2020-11-26 15:38:00 Uthup, Leonor ojeda COMPLETE BLOOD COUNT W/ 2020-11-12 15:13:00 Uthup, Leonor tay DIFFERENTIAL MAGNESIUM LEVEL 2020-11-12 15:13:00 Uthup, Leonor Taveras COMPREHENSIVE METABOLIC PANEL 2020-11-12 15:13:00 Uthup, Leonor Taveras GLUCOSE LEVEL 2020-11-12 15:13:00 Uthup, Leonor Taveras BLOOD UREA NITROGEN 2020-11-12 15:13:00 Uthup, Leonor MATHEW Vern son ELECTROLYTE PANEL 2020-11-12 15:13:00 Uthup, Leonor Schreiber n SERUM CREATININE 2020-11-12 15:13:00 Uthup, Leonor Taveras .GLOMERULAR FILTRATION RATE 2020-11-12 15:13:00 Uthup, Leonor Taveras CALCIUM LEVEL TOTAL 2020-11-12 15:13:00 Uthup, Leonor MATHEW Vern son ALBUMIN LEVEL 2020-11-12 15:13:00 Uthup, Leonor Taveras ALKALINE PHOSPHATASE 2020-11-12 15:13:00 Uthup, Leonor Fonseca rson ALANINE AMINOTRANSFERASE 2020-11-12 15:13:00 Uthup, Leonor Taveras ASPARTATE AMINOTRANSFERASE 2020-11-12 15:13:00 Uthup, Leonor Taveras TOTAL PROTEIN 2020-11-12 15:13:00 Uthup, Leonor Taveras FRACTIONATED BILIRUBIN 2020-11-12 15:13:00 Uthup, Leonor dinhson Results CBC 2020-11-12 15:13:00 Uthup, Leonor Taveras MANUAL DIFFERENTIAL 2020-11-12 15:13:00 Uthup, Leonor Porras son C REACTIVE PROTEIN 2020-11-12 15:13:00 Uthup, Leonor Medrano on SEDIMENTATION RATE 2020-11-12 15:13:00 Uthup, Leonor Medrano on NON-AUTOMATED THYROID STIMULATING HORMONE 2020-11-12 15:13:00 Uthup, Leonor Taveras FREE THYROXINE 2020-11-12 15:13:00 Uthup, Leonor Taveras AMYLASE LEVEL 2020-11-12 15:13:00 Uthup, Leonor Taveras LIPASE LEVEL 2020-11-12 15:13:00 Uthup, Leonor Taveras CT CHEST ABDOMEN PELVIS W 2020-11-08 20:16:45 Uthup, Leonor Taveras CONTRAST POC CREATININE 2020-11-08 18:29:00 Uthup, Leonor Taveras NM BONE SCAN WHOLE BODY 2020-11-08 17:00:00 Uthup, Leonor cooleyrson THYROID STIMULATING HORMONE 2020-10-29 14:43:00 Uthup, Leonor Taveras FREE THYROXINE 2020-10-29 14:43:00 Uthup, Leonor Taveras AMYLASE LEVEL 2020-10-29 14:43:00 Uthup, Leonor Taveras LIPASE LEVEL 2020-10-29 14:43:00 Uthup, Leonor Taveras COMPLETE BLOOD COUNT W/ 2020-10-29 14:43:00 Uthup, Leonor cooleyrson DIFFERENTIAL MAGNESIUM LEVEL 2020-10-29 14:43:00 Uthup, Leonor Taveras COMPREHENSIVE METABOLIC PANEL 2020-10-29 14:43:00 Uthup, Leonor Taveras GLUCOSE LEVEL 2020-10-29 14:43:00 Uthup, Leonor Taveras BLOOD UREA NITROGEN 2020-10-29 14:43:00 Uthup, Leonor Porras son ELECTROLYTE PANEL 2020-10-29 14:43:00 Uthup, Leonor Medranoo n SERUM CREATININE 2020-10-29 14:43:00 Uthup, Leonor Taveras .GLOMERULAR FILTRATION RATE 2020-10-29 14:43:00 Uthup, Leonor Taveras CALCIUM LEVEL TOTAL 2020-10-29 14:43:00 Uthup, Leonor Porras son ALBUMIN LEVEL 2020-10-29 14:43:00 Uthup, Leonor Taveras ALKALINE PHOSPHATASE 2020-10-29 14:43:00 Uthup, Leonor lala ALANINE AMINOTRANSFERASE 2020-10-29 14:43:00 Uthup, Leonor Taveras ASPARTATE AMINOTRANSFERASE 2020-10-29 14:43:00 Uthup, Leonor Taveras TOTAL PROTEIN 2020-10-29 14:43:00 Uthup, Leonor Taveras FRACTIONATED BILIRUBIN 2020-10-29 14:43:00 Uthup, Leonor Bay derson Results CBC 2020-10-29 14:43:00 Uthup, Leonor Taveras MANUAL DIFFERENTIAL 2020-10-29 14:43:00 Uthup, Leonor galvan THYROID STIMULATING HORMONE 2020-10-15 18:10:00 Uthup, Leonor Taveras FREE THYROXINE 2020-10-15 18:10:00 Uthup, Leonor Taveras AMYLASE LEVEL 2020-10-15 18:10:00 Uthup, Leonor Tavreas LIPASE LEVEL 2020-10-15 18:10:00 Uthup, Leonro Taveras COMPLETE BLOOD COUNT W/ 2020-10-15 18:10:00 Uthup, Leonor Kim nderson DIFFERENTIAL MAGNESIUM LEVEL 2020-10-15 18:10:00 Uthup, Leonor Taveras COMPREHENSIVE METABOLIC PANEL 2020-10-15 18:10:00 Uthup, Leonor Taveras GLUCOSE LEVEL 2020-10-15 18:10:00 Uthup, Leonor Taveras BLOOD UREA NITROGEN 2020-10-15 18:10:00 Uthup, Leonor Porras son ELECTROLYTE PANEL 2020-10-15 18:10:00 Uthup, Leonor Schreiber n SERUM CREATININE 2020-10-15 18:10:00 Uthup, Leonor Taveras .GLOMERULAR FILTRATION RATE 2020-10-15 18:10:00 Uthup, Leonor Taveras CALCIUM LEVEL TOTAL 2020-10-15 18:10:00 Uthup, Leonor MATHEW Vern son ALBUMIN LEVEL 2020-10-15 18:10:00 Uthup, Leonor Taveras ALKALINE PHOSPHATASE 2020-10-15 18:10:00 Uthup, Leonor Fonseca rsjuvenal ALANINE AMINOTRANSFERASE 2020-10-15 18:10:00 Uthup, Leonor Taveras ASPARTATE AMINOTRANSFERASE 2020-10-15 18:10:00 Uthup, Leonor Taveras TOTAL PROTEIN 2020-10-15 18:10:00 Uthup, Leonor Taveras FRACTIONATED BILIRUBIN 2020-10-15 18:10:00 Uthup, Leonor [place] derson Results CBC 2020-10-15 18:10:00 Uthup, Leonor Taveras MANUAL DIFFERENTIAL 2020-10-15 18:10:00 Uthup, Leonor Porras son POTASSIUM LEVEL 2020-10-01 18:45:00 Uthup, Leonor Taveras THYROID STIMULATING HORMONE 2020-10-01 13:13:00 Uthup, Leonor Taveras FREE THYROXINE 2020-10-01 13:13:00 Uthup, Leonor Taveras AMYLASE LEVEL 2020-10-01 13:13:00 Uthup, Leonor Taveras LIPASE LEVEL 2020-10-01 13:13:00 Uthup, Leonor Taveras COMPLETE BLOOD COUNT W/ 2020-10-01 13:13:00 Uthup, Leonor Kim nderson DIFFERENTIAL MAGNESIUM LEVEL 2020-10-01 13:13:00 Uthup, Leonor Taveras COMPREHENSIVE METABOLIC PANEL 2020-10-01 13:13:00 Uthup, Leonor Taveras GLUCOSE LEVEL 2020-10-01 13:13:00 Uthup, Leonor Taveras BLOOD UREA NITROGEN 2020-10-01 13:13:00 Uthup, Leonor MATHEW Vern son ELECTROLYTE PANEL 2020-10-01 13:13:00 Uthup, Leonor ball SERUM CREATININE 2020-10-01 13:13:00 Uthup, Leonor Taveras .GLOMERULAR FILTRATION RATE 2020-10-01 13:13:00 Uthup, Leonor Taveras CALCIUM LEVEL TOTAL 2020-10-01 13:13:00 Uthup, Leonor MATHEW Vern son ALBUMIN LEVEL 2020-10-01 13:13:00 Uthup, Leonor Taveras ALKALINE PHOSPHATASE 2020-10-01 13:13:00 Uthup, Leonor lala ALANINE AMINOTRANSFERASE 2020-10-01 13:13:00 Uthup, Leonor Taveras ASPARTATE AMINOTRANSFERASE 2020-10-01 13:13:00 Uthup, Leonor Taveras TOTAL PROTEIN 2020-10-01 13:13:00 Uthup, Leonor Taveras FRACTIONATED BILIRUBIN 2020-10-01 13:13:00 Uthup, Leonor [place] derson Results CBC 2020-10-01 13:13:00 Uthup, Leonor Taveras MANUAL DIFFERENTIAL 2020-10-01 13:13:00 Uthup, Leonor Porras mandy THYROID STIMULATING HORMONE 2020-09-17 14:32:00 Uthup, Leonor Taveras FREE THYROXINE 2020-09-17 14:32:00 Uthup, Lenoor Taveras AMYLASE LEVEL 2020-09-17 14:32:00 Uthup, Leonor Taveras LIPASE LEVEL 2020-09-17 14:32:00 Uthup, Leonor Taveras COMPLETE BLOOD COUNT W/ 2020-09-17 14:32:00 Uthup, Leonor Kim nderson DIFFERENTIAL MAGNESIUM LEVEL 2020-09-17 14:32:00 Uthup, Leonor Taveras COMPREHENSIVE METABOLIC PANEL 2020-09-17 14:32:00 Uthup, Leonor Taveras GLUCOSE LEVEL 2020-09-17 14:32:00 Uthup, Leonor Taveras BLOOD UREA NITROGEN 2020-09-17 14:32:00 Uthup, Leonor Porras son ELECTROLYTE PANEL 2020-09-17 14:32:00 Uthup, Leonor Schreiber n SERUM CREATININE 2020-09-17 14:32:00 Uthup, Leonor Taveras .GLOMERULAR FILTRATION RATE 2020-09-17 14:32:00 Uthup, Leonor Taveras CALCIUM LEVEL TOTAL 2020-09-17 14:32:00 Uthup, Leonor MATHEW Vern son ALBUMIN LEVEL 2020-09-17 14:32:00 Uthup, Leonor Taveras ALKALINE PHOSPHATASE 2020-09-17 14:32:00 Uthup, Leonor Fonseca rsjuvenal ALANINE AMINOTRANSFERASE 2020-09-17 14:32:00 Uthup, Leonor Taveras ASPARTATE AMINOTRANSFERASE 2020-09-17 14:32:00 Uthup, Leonor Taveras TOTAL PROTEIN 2020-09-17 14:32:00 Uthup, Leonor Taveras FRACTIONATED BILIRUBIN 2020-09-17 14:32:00 Uthup, Leonor [place] derson Results CBC 2020-09-17 14:32:00 Uthup, Leonor Taveras MANUAL DIFFERENTIAL 2020-09-17 14:32:00 Utp, Leonor Bakerer son COMPLETE BLOOD COUNT W/ 2020-09-03 17:08:00 Joan Vaughn MD nderson DIFFERENTIAL COMPREHENSIVE METABOLIC PANEL 2020-09-03 17:08:00 Joan Vaughn MD MAGNESIUM LEVEL 2020-09-03 17:08:00 Joan Vaughn MD PHOSPHORUS LEVEL 2020-09-03 17:08:00 Joan Vaughn MD THYROID STIMULATING HORMONE 2020-09-03 17:08:00 Joan Vaughn MD FREE THYROXINE 2020-09-03 17:08:00 Joan Vaughn MD Results CBC 2020-09-03 17:08:00 Joan Vaughn MD MANUAL DIFFERENTIAL 2020-09-03 17:08:00 Joan Vaughn MD Vern son GLUCOSE LEVEL 2020-09-03 17:08:00 Joan Vaughn MD BLOOD UREA NITROGEN 2020-09-03 17:08:00 Joan Vaughn MD Vern son ELECTROLYTE PANEL 2020-09-03 17:08:00 Joan Vaughn MDo n SERUM CREATININE 2020-09-03 17:08:00 Joan Vaughn MD .GLOMERULAR FILTRATION RATE 2020-09-03 17:08:00 Joan Vaughn MD CALCIUM LEVEL TOTAL 2020-09-03 17:08:00 Joan Vaughn MD Vern son ALBUMIN LEVEL 2020-09-03 17:08:00 Joan Vaughn MD ALKALINE PHOSPHATASE 2020-09-03 17:08:00 Joan Vaughn MD ALANINE AMINOTRANSFERASE 2020-09-03 17:08:00 Joan Vaughn MD ASPARTATE AMINOTRANSFERASE 2020-09-03 17:08:00 Joan Vaughn TOTAL PROTEIN 2020-09-03 17:08:00 Joan Vaughn MD FRACTIONATED BILIRUBIN 2020-09-03 17:08:00 Joan Vaughn MDson RENAL 2020-08-30 18:42:17 Joan Vaughn MD THYROID STIMULATING HORMONE 2020-08-30 12:28:00 Joan Vaughn MD FREE THYROXINE 2020-08-30 12:28:00 Joan Vaughn MD AMYLASE LEVEL 2020-08-30 12:28:00 Joan Vaughn MD LIPASE LEVEL 2020-08-30 12:28:00 Joan Vaughn MD COMPLETE BLOOD COUNT W/ 2020-08-30 12:28:00 Joan Vaughn MD ndersjuvenal DIFFERENTIAL MAGNESIUM LEVEL 2020-08-30 12:28:00 Joan Vaughn MD COMPREHENSIVE METABOLIC PANEL 2020-08-30 12:28:00 Joan Vaughn MD GLUCOSE LEVEL 2020-08-30 12:28:00 Joan Vaughn MD BLOOD UREA NITROGEN 2020-08-30 12:28:00 Joan Vaughn MD Vern son ELECTROLYTE PANEL 2020-08-30 12:28:00 Joan Vaughn MD Andajayo n SERUM CREATININE 2020-08-30 12:28:00 Joan Vaughn MD .GLOMERULAR FILTRATION RATE 2020-08-30 12:28:00 Joan Vaughn MD CALCIUM LEVEL TOTAL 2020-08-30 12:28:00 Joan Vaughn MD Vern son ALBUMIN LEVEL 2020-08-30 12:28:00 Joan Vaughn MD ALKALINE PHOSPHATASE 2020-08-30 12:28:00 Joan Vaughn MD rson ALANINE AMINOTRANSFERASE 2020-08-30 12:28:00 Joan Vaughn MD ASPARTATE AMINOTRANSFERASE 2020-08-30 12:28:00 Joan Vaughn TOTAL PROTEIN 2020-08-30 12:28:00 Joan Vaughn MD FRACTIONATED BILIRUBIN 2020-08-30 12:28:00 Joan Vaughn MD derson Results CBC 2020-08-30 12:28:00 Joan Vaughn MD MANUAL DIFFERENTIAL 2020-08-30 12:28:00 Joan Vaughn MD Vern son IR NEPHROSTOMY EXCHANGE 2020-08-27 15:13:00 Vincent Rodgers MD POTASSIUM LEVEL 2020-08-27 13:32:00 Santa Vargas MD BASIC METABOLIC PANEL, CALCIUM 2020-08-27 08:07:00 Enrique Leazma MD TOTAL COMPLETE BLOOD COUNT W/ 2020-08-27 08:07:00 Isabel Lezama MD DIFFERENTIAL MAGNESIUM LEVEL 2020-08-27 08:07:00 Isabel Lezama MD PHOSPHORUS LEVEL 2020-08-27 08:07:00 Isabel Lezama MD Mitchell on GLUCOSE LEVEL 2020-08-27 08:07:00 Isabel Lezama MD Andajayo n BLOOD UREA NITROGEN 2020-08-27 08:07:00 Isabel Lezama MD And erson ELECTROLYTE PANEL 2020-08-27 08:07:00 Isabel Lezama MD Vern son SERUM CREATININE 2020-08-27 08:07:00 Isabel Lezama MD Mitchell on .GLOMERULAR FILTRATION RATE 2020-08-27 08:07:00 Andrews Lezama MD CALCIUM LEVEL TOTAL 2020-08-27 08:07:00 Isabel Lezama MD And erson Results CBC 2020-08-27 08:07:00 Isabel Lezama MD MANUAL DIFFERENTIAL 2020-08-27 08:07:00 Isabel Lezama MD And ajayon EKG, 12-LEAD (PORTABLE) 2020-08-27 00:00:00 Corinne Sparks MD nderson BASIC METABOLIC PANEL, CALCIUM 2020-08-26 09:03:00 Enrique Lezama MD TOTAL COMPLETE BLOOD COUNT W/ 2020-08-26 09:03:00 Isabel Lezama MD DIFFERENTIAL MAGNESIUM LEVEL 2020-08-26 09:03:00 Isabel Lezama MD PHOSPHORUS LEVEL 2020-08-26 09:03:00 Isabel Lezama MD Mitchell on HEPATIC FUNCTION PANEL 2020-08-26 09:03:00 Isabel Lezama MD PROTHROMBIN TIME 2020-08-26 09:03:00 Vincent Rodgers MD APTT 2020-08-26 09:03:00 Vincent Rodgers MD GLUCOSE LEVEL 2020-08-26 09:03:00 Isabel Lezama MD BLOOD UREA NITROGEN 2020-08-26 09:03:00 Isabel Lezama MD And erson ELECTROLYTE PANEL 2020-08-26 09:03:00 Isabel Lezama MD Vern son SERUM CREATININE 2020-08-26 09:03:00 Isabel Lezama MD Mitchell on .GLOMERULAR FILTRATION RATE 2020-08-26 09:03:00 Andrews Lezama MD CALCIUM LEVEL TOTAL 2020-08-26 09:03:00 Isabel Lezama MD And erson ALBUMIN LEVEL 2020-08-26 09:03:00 Isabel Lezama MD ALKALINE PHOSPHATASE 2020-08-26 09:03:00 Isabel Lezama MD ALANINE AMINOTRANSFERASE 2020-08-26 09:03:00 Isabel Lezama ASPARTATE AMINOTRANSFERASE 2020-08-26 09:03:00 Isabel Lezama MD TOTAL PROTEIN 2020-08-26 09:03:00 Isabel Lezama MD FRACTIONATED BILIRUBIN 2020-08-26 09:03:00 Isabel Lezama MD Results CBC 2020-08-26 09:03:00 Isabel Lezama MD MANUAL DIFFERENTIAL 2020-08-26 09:03:00 Isabel Lezama MD And erson BLOODCULTURE 2020-08-25 19:15:00 Hannah Rodriguez MD BASIC METABOLIC PANEL, CALCIUM 2020-08-25 08:55:00 Enrique Lezama MD TOTAL COMPLETE BLOOD COUNT W/ 2020-08-25 08:55:00 Isabel Lezama MD DIFFERENTIAL MAGNESIUM LEVEL 2020-08-25 08:55:00 Isabel Lezama MD Andajayo n PHOSPHORUS LEVEL 2020-08-25 08:55:00 Isabel Lezama MD Mitchell on GLUCOSE LEVEL 2020-08-25 08:55:00 Isabel Lezama MD Andjuan luis n BLOOD UREA NITROGEN 2020-08-25 08:55:00 Isabel Lezama MD And erson ELECTROLYTE PANEL 2020-08-25 08:55:00 Isabel Lezama MD Vern son SERUM CREATININE 2020-08-25 08:55:00 Isabel Lezama MD Mitchell on .GLOMERULAR FILTRATION RATE 2020-08-25 08:55:00 Andrews Lezama MD CALCIUM LEVEL TOTAL 2020-08-25 08:55:00 Isabel Lezama MD And erson Results CBC 2020-08-25 08:55:00 Isabel Lezama MD Andjuan luis n MANUAL DIFFERENTIAL 2020-08-25 08:55:00 Isabel Lezama MD And erson BLOODCULTURE 2020-08-24 17:42:00 Eagle Ortiz MD Mitchell on BLOODCULTURE 2020-08-24 07:48:00 Vincent Rodgers MD BASIC METABOLIC PANEL, CALCIUM 2020-08-24 07:48:00 Enrique Lezama MD TOTAL COMPLETE BLOOD COUNT W/ 2020-08-24 07:48:00 Isabel Lezama MD DIFFERENTIAL MAGNESIUM LEVEL 2020-08-24 07:48:00 Isabel Lezama MD Andajayo n PHOSPHORUS LEVEL 2020-08-24 07:48:00 Isabel Lezama MD Mtichell on GLUCOSE LEVEL 2020-08-24 07:48:00 Isabel Lezama MD Andajayo n BLOOD UREA NITROGEN 2020-08-24 07:48:00 Isabel Lezama MD And erson ELECTROLYTE PANEL 2020-08-24 07:48:00 Isabel Lezama MD Vern son SERUM CREATININE 2020-08-24 07:48:00 Isabel Lezama MD Mitchell on .GLOMERULAR FILTRATION RATE 2020-08-24 07:48:00 Andrews Lezama MD CALCIUM LEVEL TOTAL 2020-08-24 07:48:00 Isabel Lezama MD And erson Results CBC 2020-08-24 07:48:00 Isabel Lezama MD Andajayo n MANUAL DIFFERENTIAL 2020-08-24 07:48:00 Isabel Lezama MD And erson BLOODCULTURE 2020-08-23 16:51:00 Vincent Rodgers MD BASIC METABOLIC PANEL, CALCIUM 2020-08-23 07:50:00 Enrique Lezama MD TOTAL COMPLETE BLOOD COUNT W/ 2020-08-23 07:50:00 Isabel Lezama MD DIFFERENTIAL MAGNESIUM LEVEL 2020-08-23 07:50:00 Isabel Lezama MD Andajayo n PHOSPHORUS LEVEL 2020-08-23 07:50:00 Isabel Lezama MD Mitchell on HEPATIC FUNCTION PANEL 2020-08-23 07:50:00 Isabel Lezama MD GLUCOSE LEVEL 2020-08-23 07:50:00 Isabel Lezama MD Andajayo n BLOOD UREA NITROGEN 2020-08-23 07:50:00 Isabel Lezama MD And erson ELECTROLYTE PANEL 2020-08-23 07:50:00 Isabel Lezama MD Vern son SERUM CREATININE 2020-08-23 07:50:00 Isabel Lezama MD Mitchell on .GLOMERULAR FILTRATION RATE 2020-08-23 07:50:00 Andrews Lezama MD CALCIUM LEVEL TOTAL 2020-08-23 07:50:00 Isabel Lezama MD And erson ALBUMIN LEVEL 2020-08-23 07:50:00 Isabel Lezama MD Andajayo n ALKALINE PHOSPHATASE 2020-08-23 07:50:00 Isabel Lezama MD ALANINE AMINOTRANSFERASE 2020-08-23 07:50:00 Isabel Lezama ASPARTATE AMINOTRANSFERASE 2020-08-23 07:50:00 Isabel Lezama MD TOTAL PROTEIN 2020-08-23 07:50:00 Isabel Lezama MD Andjuan luis n FRACTIONATED BILIRUBIN 2020-08-23 07:50:00 Isabel Lezama MD Results CBC 2020-08-23 07:50:00 Isabel Lezama MD Andajayo n MANUAL DIFFERENTIAL 2020-08-23 07:50:00 Isabel Lezama MD And erson CT CHEST ABDOMEN PELVIS W 2020-08-23 01:50:44 Isabel Lezama MD CONTRAST VANCOMYCIN LEVEL TROUGH 2020-08-23 00:25:00 Brannon Cunningham MD nderson URINE CULTURE 2020-08-22 18:34:00 Isabel Lezama MD Andajayo n URINALYSIS WITH MICROSCOPIC IF 2020-08-22 18:34:00 Enrique Lezama MD INDICATED URINALYSIS MICROSCOPIC 2020-08-22 18:34:00 Isabel Lezama MD BLOODCULTURE 2020-08-22 16:44:00 Isabel Lezama MD Andajayo n ALBUMIN LEVEL 2020-08-22 13:20:00 Isabel Lezama MD Andajayo n COMPLETE BLOOD COUNT W/ 2020-08-22 13:20:00 Isabel Lezama MD DIFFERENTIAL COMPREHENSIVE METABOLIC PANEL 2020-08-22 13:20:00 Ruby Lezama MD Results CBC 2020-08-22 13:20:00 Isabel Lezama MD n MANUAL DIFFERENTIAL 2020-08-22 13:20:00 Isabel Lezama MD And erson GLUCOSE LEVEL 2020-08-22 13:20:00 Isabel Lezama MD Andjuan luis n BLOOD UREA NITROGEN 2020-08-22 13:20:00 Isabel Lezama MD And erson ELECTROLYTE PANEL 2020-08-22 13:20:00 Isabel Lezama MD Vern son SERUM CREATININE 2020-08-22 13:20:00 TejaIsabel almaraz MD on .GLOMERULAR FILTRATION RATE 2020-08-22 13:20:00 Andrews Lezama MD CALCIUM LEVEL TOTAL 2020-08-22 13:20:00 Isabel Lezama ALKALINE PHOSPHATASE 2020-08-22 13:20:00 Isabel Lezama MD lynette ALANINE AMINOTRANSFERASE 2020-08-22 13:20:00 Isabel Lezama ASPARTATE AMINOTRANSFERASE 2020-08-22 13:20:00 Isabel Lezama MD TOTAL PROTEIN 2020-08-22 13:20:00 Isabel Lezama MD n FRACTIONATED BILIRUBIN 2020-08-22 13:20:00 Isabel Lezama MD BLOODCULTURE 2020-08-22 01:27:00 Panchito Rosa MD RESPIRATORY VIRAL PANEL + 2020-08-22 01:27:00 Panchito Rosa MD COVID-19, NASOPHARYNGEAL SWAB URINE CULTURE 2020-08-22 01:27:00 Panchito Rosa MD MAGNESIUM LEVEL 2020-08-22 01:27:00 Panchito Rosa MD PHOSPHORUS LEVEL 2020-08-22 01:27:00 Panchito Rosa MD COMPREHENSIVE METABOLIC PANEL 2020-08-22 01:27:00 José Miguel Rosa MD LACTIC ACID, VENOUS 2020-08-22 01:27:00 Panchito Rosa MD COMPLETE BLOOD COUNT W/ 2020-08-22 01:27:00 Panchito Rosa MD nderson DIFFERENTIAL PROTHROMBIN TIME 2020-08-22 01:27:00 Panchito Rosa MD APTT 2020-08-22 01:27:00 Panchito Rosa MD TYPE AND SCREEN 2020-08-22 01:27:00 Panchito Rosa MD URINALYSIS WITH MICROSCOPIC IF 2020-08-22 01:27:00 Kevon Rosa MD INDICATED GLUCOSE LEVEL 2020-08-22 01:27:00 Panchito Rosa MD BLOOD UREA NITROGEN 2020-08-22 01:27:00 Panchito Rosa MD ELECTROLYTE PANEL 2020-08-22 01:27:00 Panchito Rosa MD SERUM CREATININE 2020-08-22 01:27:00 Panchito Rosa MD .GLOMERULAR FILTRATION RATE 2020-08-22 01:27:00 Panchito Rosa MD CALCIUM LEVEL TOTAL 2020-08-22 01:27:00 Panchito Rosa MD Vern galvan ALBUMIN LEVEL 2020-08-22 01:27:00 Panchito Rosa MD ALKALINE PHOSPHATASE 2020-08-22 01:27:00 Panchito Rosa MD rson ALANINE AMINOTRANSFERASE 2020-08-22 01:27:00 Panchito Rosa MD ASPARTATE AMINOTRANSFERASE 2020-08-22 01:27:00 Panchito Rosa TOTAL PROTEIN 2020-08-22 01:27:00 Panchito Rosa MD FRACTIONATED BILIRUBIN 2020-08-22 01:27:00 Panchito Roas MD derson ABORH 2020-08-22 01:27:00 Panchito Rosa MD Results CBC 2020-08-22 01:27:00 Panchito Rosa MD MANUAL DIFFERENTIAL 2020-08-22 01:27:00 Panchito Rosa MD Vern galvan ANTIBODY SCREEN 2020-08-22 01:27:00 Panchito Rosa MD URINALYSIS MICROSCOPIC 2020-08-22 01:27:00 Panchito Rosa MD CLOT EXPIRATION DATE 2020-08-22 01:27:00 Panchito Rosa MD rsjuvenal TMP INTERPRETATION ANTIBODY 2020-08-22 01:27:00 Panchito Rosa MD SCREEN NEGATIVE XR CHEST 1 VW 2020-08-22 01:06:49 Panchito Rosa MD IR NEPHROSTOMY REMOVAL UNDER 2020-08-19 19:22:04 Isacc Aguilar FLUOROSCOPY SERUM CREATININE 2020-08-19 18:03:00 Von Aguilar MD SERUM CREATININE 2020-08-19 18:03:00 Von Aguilar MD .GLOMERULAR FILTRATION RATE 2020-08-19 18:03:00 Von Aguilar MD THYROID STIMULATING HORMONE 2020-08-13 15:22:00 Joan Vaughn MD FREE THYROXINE 2020-08-13 15:22:00 Joan Vaughn MD AMYLASE LEVEL 2020-08-13 15:22:00 Joan Vaughn MD LIPASE LEVEL 2020-08-13 15:22:00 Joan Vaughn MD COMPLETE BLOOD COUNT W/ 2020-08-13 15:22:00 Joan Vaughn MD DIFFERENTIAL MAGNESIUM LEVEL 2020-08-13 15:22:00 Joan Vaughn MD COMPREHENSIVE METABOLIC PANEL 2020-08-13 15:22:00 Joan Vaughn MD GLUCOSE LEVEL 2020-08-13 15:22:00 Joan Vaughn MD BLOOD UREA NITROGEN 2020-08-13 15:22:00 Joan Vaughn MD ELECTROLYTE PANEL 2020-08-13 15:22:00 Joan Vaughn MD SERUM CREATININE 2020-08-13 15:22:00 Joan Vaughn MD .GLOMERULAR FILTRATION RATE 2020-08-13 15:22:00 Joan Vaguhn MD CALCIUM LEVEL TOTAL 2020-08-13 15:22:00 Joan Vaughn MD ALBUMIN LEVEL 2020-08-13 15:22:00 Joan Vaughn MD ALKALINE PHOSPHATASE 2020-08-13 15:22:00 Joan Vaughn MD ALANINE AMINOTRANSFERASE 2020-08-13 15:22:00 Joan Vaughn MD ASPARTATE AMINOTRANSFERASE 2020-08-13 15:22:00 Joan Vaughn TOTAL PROTEIN 2020-08-13 15:22:00 Joan Vaughn MD FRACTIONATED BILIRUBIN 2020-08-13 15:22:00 Joan Vaughn MD derson Results CBC 2020-08-13 15:22:00 Joan Vaughn MD MANUAL DIFFERENTIAL 2020-08-13 15:22:00 Joan Vaugnh MD IR NEPHROSTOGRAM AND/OR 2020-08-09 20:10:00 Joan Vaughn MD URETEROGRAM EXISTING ACCESS VANCOMYCIN LEVEL TROUGH 2020-08-07 11:24:00 Real Howard MD COMPLETE BLOOD COUNT W/ 2020-08-07 09:41:00 Zahraa Mckeon MD DIFFERENTIAL BASIC METABOLIC PANEL, CALCIUM 2020-08-07 09:41:00 Zahraa Mckeon MD TOTAL MAGNESIUM LEVEL 2020-08-07 09:41:00 Zahraa Mckeon MD PHOSPHORUS LEVEL 2020-08-07 09:41:00 Zahraa Mckeon MD VANCOMYCIN LEVEL TROUGH 2020-08-07 09:41:00 Real Howard MD Results CBC 2020-08-07 09:41:00 Zahraa Mckeon MD MANUAL DIFFERENTIAL 2020-08-07 09:41:00 Linda, Zahraa MATHEW Vernfatmata galvan GLUCOSE LEVEL 2020-08-07 09:41:00 Zahraa Mckeon MD BLOOD UREA NITROGEN 2020-08-07 09:41:00 Linda, Zahraa MATHEW Vernfatmata galvan ELECTROLYTE PANEL 2020-08-07 09:41:00 Linda, Zahraa ball SERUM CREATININE 2020-08-07 09:41:00 Zahraa Mckeon MD .GLOMERULAR FILTRATION RATE 2020-08-07 09:41:00 Zahraa Mckeon MD CALCIUM LEVEL TOTAL 2020-08-07 09:41:00 Zahraa Mckeon MD [facility] COMPLETE BLOOD COUNT W/ 2020-08-06 20:51:00 Kayode Cheema MD DIFFERENTIAL COMPREHENSIVE METABOLIC PANEL 2020-08-06 20:51:00 Moe Cheema MD MAGNESIUM LEVEL 2020-08-06 20:51:00 Kayode Cheema MD PHOSPHORUS LEVEL 2020-08-06 20:51:00 Kayode Cheema MD Results CBC 2020-08-06 20:51:00 Kayode Cheema MD MANUAL DIFFERENTIAL 2020-08-06 20:51:00 Kayode Cheema MD Vernfatmata galvan GLUCOSE LEVEL 2020-08-06 20:51:00 Kayode Cheema MD BLOOD UREA NITROGEN 2020-08-06 20:51:00 Kayode Cheema MD Vernfatmata galvan ELECTROLYTE PANEL 2020-08-06 20:51:00 Kayode Cheema MD SERUM CREATININE 2020-08-06 20:51:00 Kayode Cheema MD .GLOMERULAR FILTRATION RATE 2020-08-06 20:51:00 Kayode Cheema MD CALCIUM LEVEL TOTAL 2020-08-06 20:51:00 Kayode Cheema MD Vernfatmata galvan ALBUMIN LEVEL 2020-08-06 20:51:00 Kayode Cheema MD ALKALINE PHOSPHATASE 2020-08-06 20:51:00 Kayode Cheema MD Raymundo rson ALANINE AMINOTRANSFERASE 2020-08-06 20:51:00 Kayode Cheema MD ASPARTATE AMINOTRANSFERASE 2020-08-06 20:51:00 Kayode Cheema TOTAL PROTEIN 2020-08-06 20:51:00 Kayode Cheema MD FRACTIONATED BILIRUBIN 2020-08-06 20:51:00 Kayode Cheema MD derson CT ABDOMEN PELVIS W CONTRAST 2020-08-06 04:45:01 Zahraa Mckeon MD URINE CULTURE 2020-08-06 01:11:00 Zahraa Mckeon MD URINALYSIS WITH MICROSCOPIC IF 2020-08-06 01:11:00 Zahraa Mckeon MD INDICATED URINALYSIS MICROSCOPIC 2020-08-06 01:11:00 Zahraa Mckeon MDson XR CHEST 1 VW 2020-08-05 23:58:34 Zahraa Mckeon MD XR ABDOMEN 1 VW PORTABLE 2020-08-05 23:57:11 Zahraa Mckeon MD BLOODCULTURE 2020-08-05 23:39:00 Zahraa Mckeon MD RESPIRATORY VIRAL PANEL + 2020-08-05 23:39:00 Zahraa Mckeon MD COVID-19, NASOPHARYNGEAL SWAB BLOODCULTURE 2020-08-05 23:37:00 Zahraa Mckeon MD COMPLETE BLOOD COUNT W/ 2020-08-05 23:37:00 Zahraa Mckeon MD ndersjuvenal DIFFERENTIAL CALCIUM LEVEL TOTAL 2020-08-05 23:37:00 Zahraa Mckeon MD CHLORIDE LEVEL 2020-08-05 23:37:00 Zahraa Mckeon MD CARBON DIOXIDE LEVEL 2020-08-05 23:37:00 Zahraa Mckeon MD rsjuvenal SERUM CREATININE 2020-08-05 23:37:00 Zahraa Mckeon MD BLOOD UREA NITROGEN 2020-08-05 23:37:00 Zahraa Mckeon MD son GLUCOSE, RANDOM 2020-08-05 23:37:00 Zahraa Mckeon MD SODIUM LEVEL 2020-08-05 23:37:00 Zahraa Mckeon MD POTASSIUM LEVEL 2020-08-05 23:37:00 Zahraa Mckeon MD MAGNESIUM LEVEL 2020-08-05 23:37:00 Zahraa Mckeon MD PHOSPHORUS LEVEL 2020-08-05 23:37:00 Zahraa Mckeon MD ALBUMIN LEVEL 2020-08-05 23:37:00 Zahraa Mckeon MD ALKALINE PHOSPHATASE 2020-08-05 23:37:00 Zahraa Mckeon MD rson ALANINE AMINOTRANSFERASE 2020-08-05 23:37:00 Zahraa Mckeon MD ASPARTATE AMINOTRANSFERASE 2020-08-05 23:37:00 Zahraa Mckeon FRACTIONATED BILIRUBIN 2020-08-05 23:37:00 Zahraa Mckeon MDson LACTATE DEHYDROGENASE 2020-08-05 23:37:00 Zahraa Mckeon erson LACTIC ACID, VENOUS 2020-08-05 23:37:00 Zahraa Mckeon MD son C REACTIVE PROTEIN 2020-08-05 23:37:00 Zahraa Mckeon MD on HC PROCALCITONIN (PCT) 2020-08-05 23:37:00 Zahraa Mckeon MD Results CBC 2020-08-05 23:37:00 Zahraa Mckeon MD MANUAL DIFFERENTIAL 2020-08-05 23:37:00 Zahraa Mckeon MD son SERUM CREATININE 2020-08-05 23:37:00 Zahraa Mckeon MD .GLOMERULAR FILTRATION RATE 2020-08-05 23:37:00 Zahraa Mckeon MD ANION GAP 2020-08-05 23:37:[address] CHEST ABDOMEN PELVIS W 2020-07-30 00:11:00 Leonor Hernandez MD CONTRAST NM BONE SCAN WHOLE BODY 2020-07-29 20:29:00 Leonor Hernandez MDrson THYROID STIMULATING HORMONE 2020-07-29 18:25:00 Leonor Hernandez MD FREE THYROXINE 2020-07-29 18:25:00 Uthup, Leonor Taveras AMYLASE LEVEL 2020-07-29 18:25:00 Uthup, Leonor Taveras LIPASE LEVEL 2020-07-29 18:25:00 Uthup, Leonor Taveras COMPLETE BLOOD COUNT W/ 2020-07-29 18:25:00 Uthup, Leonor Kim nderson DIFFERENTIAL MAGNESIUM LEVEL 2020-07-29 18:25:00 Uthup, Leonor Taveras COMPREHENSIVE METABOLIC PANEL 2020-07-29 18:25:00 Uthup, Leonor Taveras GLUCOSE LEVEL 2020-07-29 18:25:00 Uthup, Leonor Taveras BLOOD UREA NITROGEN 2020-07-29 18:25:00 Uthup, Leonor Porras son ELECTROLYTE PANEL 2020-07-29 18:25:00 Uthup, Leonor ball SERUM CREATININE 2020-07-29 18:25:00 Uthup, Leonor Taveras .GLOMERULAR FILTRATION RATE 2020-07-29 18:25:00 Uthup, Leonor Taveras CALCIUM LEVEL TOTAL 2020-07-29 18:25:00 Uthup, Leonor MATHEW Vern son ALBUMIN LEVEL 2020-07-29 18:25:00 Uthup, Leonor Taveras ALKALINE PHOSPHATASE 2020-07-29 18:25:00 Uthup, Leonor Fonseca rson ALANINE AMINOTRANSFERASE 2020-07-29 18:25:00 Uthup, Leonor Taveras ASPARTATE AMINOTRANSFERASE 2020-07-29 18:25:00 Uthup, Leonor Taveras Results CBC 2020-07-29 18:25:00 Uthup, Leonor Taveras TOTAL PROTEIN 2020-07-29 18:25:00 Uthup, Leonor Taveras MANUAL DIFFERENTIAL 2020-07-29 18:25:00 Uthup, Leonor MATHEW Vern son FRACTIONATED BILIRUBIN 2020-07-29 18:25:00 Uthup, Leonor ojeda COMPLETE BLOOD COUNT W/ 2020-07-16 14:25:00 Uthup, Leonor Kim nderson DIFFERENTIAL MAGNESIUM LEVEL 2020-07-16 14:25:00 Uthup, Leonor Taveras COMPREHENSIVE METABOLIC PANEL 2020-07-16 14:25:00 Uthup, Leonor Taveras Results CBC 2020-07-16 14:25:00 Uthup, Leonor Taveras MANUAL DIFFERENTIAL 2020-07-16 14:25:00 Uthup, Leonor MATHEW Vern son GLUCOSE LEVEL 2020-07-16 14:25:00 Uthup, Leonor Taversa BLOOD UREA NITROGEN 2020-07-16 14:25:00 Uthup, Leonor MATHEW Vern son ELECTROLYTE PANEL 2020-07-16 14:25:00 Uthup, Leonor Medranoo n SERUM CREATININE 2020-07-16 14:25:00 Uthup, Leonor Taveras .GLOMERULAR FILTRATION RATE 2020-07-16 14:25:00 Uthup, Leonor Taveras CALCIUM LEVEL TOTAL 2020-07-16 14:25:00 Uthup, Leonor Porras son ALBUMIN LEVEL 2020-07-16 14:25:00 Uthup, Leonor Taveras ALKALINE PHOSPHATASE 2020-07-16 14:25:00 Uthup, Leonor [facility] ALANINE AMINOTRANSFERASE 2020-07-16 14:25:00 Uthup, Leonor Taveras ASPARTATE AMINOTRANSFERASE 2020-07-16 14:25:00 Uthup, Leonor Taveras TOTAL PROTEIN 2020-07-16 14:25:00 Uthup, Leonor Taveras FRACTIONATED BILIRUBIN 2020-07-16 14:25:00 Uthup, Leonor dinhson IR NEPHROSTOMY EXCHANGE 2020-07-08 17:25:00 Jorgito Bell MD COMPLETE BLOOD COUNT W/ 2020-07-02 18:00:00 Uthup, Leonor chrison DIFFERENTIAL MAGNESIUM LEVEL 2020-07-02 18:00:00 Uthup, Leonor Taveras COMPREHENSIVE METABOLIC PANEL 2020-07-02 18:00:00 Uthup, Leonor Taveras Results CBC 2020-07-02 18:00:00 Uthup, Leonor Taveras MANUAL DIFFERENTIAL 2020-07-02 18:00:00 Uthup, Leonor MATHEW Vern son GLUCOSE LEVEL 2020-07-02 18:00:00 Uthup, Leonor Taveras BLOOD UREA NITROGEN 2020-07-02 18:00:00 Uthup, Leonor MATHEW Vern son ELECTROLYTE PANEL 2020-07-02 18:00:00 Uthup, Leonor ball SERUM CREATININE 2020-07-02 18:00:00 Uthup, Leonor Taveras .GLOMERULAR FILTRATION RATE 2020-07-02 18:00:00 Uthup, Leonor Taveras CALCIUM LEVEL TOTAL 2020-07-02 18:00:00 Uthup, Leonor MATHEW Vern son ALBUMIN LEVEL 2020-07-02 18:00:00 Uthup, Leonor Taveras ALKALINE PHOSPHATASE 2020-07-02 18:00:00 Uthup, Leonor Fonseca juvenal ALANINE AMINOTRANSFERASE 2020-07-02 18:00:00 Uthup, Leonor Taveras ASPARTATE AMINOTRANSFERASE 2020-07-02 18:00:00 Uthup, Leonor Taveras TOTAL PROTEIN 2020-07-02 18:00:00 Uthup, Leonor Taveras FRACTIONATED BILIRUBIN 2020-07-02 18:00:00 Uthup, Leonor dinhson COMPLETE BLOOD COUNT W/ 2020-06-18 13:57:00 Uthup, Leonor Kim nderson DIFFERENTIAL MAGNESIUM LEVEL 2020-06-18 13:57:00 Uthup, Leonor Taveras COMPREHENSIVE METABOLIC PANEL 2020-06-18 13:57:00 Uthup, Leonor Taveras Results CBC 2020-06-18 13:57:00 Uthup, Leonor Taveras MANUAL DIFFERENTIAL 2020-06-18 13:57:00 Uthup, Leonor MATHEW Vern son GLUCOSE LEVEL 2020-06-18 13:57:00 Uthup, Leonor Taveras BLOOD UREA NITROGEN 2020-06-18 13:57:00 Uthup, Leonor MATHEW Vern son ELECTROLYTE PANEL 2020-06-18 13:57:00 Uthup, Leonor ball SERUM CREATININE 2020-06-18 13:57:00 Uthup, Leonor Taveras .GLOMERULAR FILTRATION RATE 2020-06-18 13:57:00 Uthup, Leonor Taveras CALCIUM LEVEL TOTAL 2020-06-18 13:57:00 Uthup, Leonor MATHEW Vern son ALBUMIN LEVEL 2020-06-18 13:57:00 Uthubaldemar, Leonor Taveras ALKALINE PHOSPHATASE 2020-06-18 13:57:00 Uthubaldemar, Leonor lala ALANINE AMINOTRANSFERASE 2020-06-18 13:57:00 Uthup, Leonor Taveras ASPARTATE AMINOTRANSFERASE 2020-06-18 13:57:00 UthuLeonor mcdermott TOTAL PROTEIN 2020-06-18 13:57:00 Uthup, Leonor Taveras FRACTIONATED BILIRUBIN 2020-06-18 13:57:00 Uthup, Leonor ojeda Plan of Care Planned Activity Planned Date Details Comments Source Future Scheduled Test 2021-05-15 00:00:00 COVID-19 Vaccination (Vani Taveras - Booster for Pfizer series) [code = COVID-19 Vaccination (4 - Booster for Pfizer series)] Encounters Start End Encounter Admission Attending Care Care Encounter Source Date/Time Date/Time Type Type Clinicians Facility Department ID 2020-04-03 Outpatient SYSTEM, MDA KHANH [id number] 13:49:46 PROVIDER Mitchell o n 2020-02-19 Outpatient SYSTEM, KHANH CASSIDY [id number] 11:20:35 PROVIDER Mitchell o n 2020-01-12 Outpatient SYSTEM, MDA MDA [id number] 11:52:46 PROVIDER Mitchell o n 2019-12-12 Outpatient KHANH CASSIDY [id number] 12:59:29 Anderso n 2019-12-04 Outpatient SYSTEM, MDA MDA [id number] 10:35:21 PROVIDER Mitchell o n 2019-11-01 Inpatient JENNIFER [facility]rology [id number] [facility] 18:58:00 IRVIN 2021-06-10 2021-06-10 Outpatient LEONOR HERNANDEZ MDA, MDA [id number] 12:28:07 16:38:07 Mitchell o n 2021-06-10 2021-06-10 Outpatient KHANH VAUGHN MDA [id number] 10:29:32 12:21:10 JOAN Wrayers o n 2021-06-07 2021-06-07 Outpatient LEONOR HERNANDEZ MDA, MDA [id number] 10:45:41 23:59:00 Mitchell o n 2021-06-06 2021-06-06 Outpatient LEONOR HERNANDEZ MDA, MDA [id number] 08:30:00 23:59:00 Mitchell o quinn 2021-06-06 2021-06-06 Outpatient [facility], JOMA MDA MDA [id number] 12:03:30 12:03:30 Mitchell o quinn 2021-06-06 2021-06-06 [facility] JOMA MDA MDA [id number] 09:17:02 09:17:02 Mitchell o quinn 2021-05-28 2021-05-28 Outpatient [facility], MDA MDA [id number] 06:57:27 06:57:27 JOAN ball 2021-05-27 2021-05-27 [facility] JOMA MDA MDA [id number] 08:30:00 23:59:00 Mitchell o quinn 2021-05-27 2021-05-27 [facility] JOMA MDA MDA [id number] 10:10:53 13:26:52 Mitchell o quinn 2021-05-13 2021-05-13 [facility] JOMA MDA MDA [id number] 09:00:00 23:59:00 Mitchell o quinn 2021-05-13 2021-05-13 [facility] MDA MDA [id number] 11:26:24 16:35:07 Mitchell o quinn 2021-05-13 2021-05-13 [facility], MDA MDA [id number] 09:33:47 10:44:29 JOAN ball 2021-05-05 2021-05-05 Outpatient [facility], MDA MDA [id number] 07:37:12 08:07:37 FER Medrano o quinn 2021-04-30 2021-04-30 Outpatient [facility], MDA MDA [id number] 07:22:02 07:22:02 JOAN Medrano o quinn 2021-04-29 2021-04-29 [facility] MDA MDA [id number] 06:45:00 23:59:00 Mitchell o quinn 2021-04-29 2021-04-29 [facility] JOWV MDA MDA [id number] 09:59:17 15:19:40 Mitchell o n 2021-04-15 2021-04-15 Outpatient [facility], JOMA MDA MDA [id number] 08:45:00 23:59:00 Mitchell o n 2021-04-15 2021-04-15 Outpatient [facility], MDA MDA [id number] 09:34:43 11:02:17 JOAN Mitchell o n 2021-04-15 2021-04-15 [facility] JOWV MDA MDA [id number] 10:38:28 10:38:28 Mitchell o n 2021-04-04 2021-04-04 [facility], MDA MDA [id number] MD 12:00:43 12:00:43 JOAN Mitchell o n 2021-04-01 2021-04-01 [facility] MDA MDA [id number] 09:25:17 23:59:00 Mitchell o n 2021-04-01 2021-04-01 [facility] MDA MDA [id number] 11:09:32 15:29:21 Mitchell o n 2021-04-01 2021-04-01 [facility], MDA MDA [id number] 09:48:04 12:45:27 JOAN Mitchell o n 2021-03-31 2021-03-31 [facility] MDA MDA [id number] 10:37:06 23:59:00 Mitchell o n 2021-03-28 2021-03-28 [facility] JOWV MDA MDA [id number] 12:47:44 12:47:44 Mitchell o n 2021-03-28 2021-03-28 [facility] JOWV MDA MDA [id number] 09:53:23 09:53:23 Mitchell o n 2021-03-21 2021-03-21 [facility] JOWV MDA MDA [id number] 09:25:27 23:59:00 Mitchell o n 2021-03-19 2021-03-19 Outpatient [facility], MDA MDA [id number] 11:20:33 11:20:33 JOAN Wrayers o n 2021-03-18 2021-03-18 Outpatient LEONOR HERNANDEZ MDA MDA [id number] 09:35:51 11:40:46 Mitchell o n 2021-03-17 2021-03-17 Outpatient ANGIELEONOR Mcdermott MDA MDA [id number] 13:16:48 23:59:00 Mitchell o n 2021-03-10 2021-03-10 Outpatient [facility], MDA MDA [id number] 10:44:50 23:59:00 FLAVIA Wrayers o n 2021-03-10 2021-03-10 Outpatient [facility], MDA MDA [id number] 12:25:34 12:57:08 FER Medrano o n 2021-03-04 2021-03-04 Outpatient ANGIELEONOR Mcdermott MDA MDA [id number] 08:00:00 23:59:00 Mitchell o quinn 2021-03-04 2021-03-04 [facility] MDA MDA [id number] 08:20:39 16:09:40 JOAN Wrayers o n 2021-03-04 2021-03-04 Outpatient [facility], MDA MDA [id number] 10:11:14 14:15:12 JOAN Wrayers o n 2021-03-04 2021-03-04 [facility] MDA [id number] 13:24:53 13:24:53 JOAN Wrayers o n 2021-03-04 2021-03-04 Outpatient [facility], MDA MDA [id number] 13:24:39 13:24:39 JOAN Mitchell o n 2021-02-20 2021-02-20 [facility] MDA [id number] 06:54:26 06:54:26 JOAN Mitchell o n 2021-02-19 2021-02-19 [facility] MDA MDA [id number] 10:47:20 10:47:20 JOAN Wrayers o n 2021-02-19 2021-02-19 [facility] MDA MDA [id number] 10:46:55 10:46:55 JOAN Wrayers o n 2021-02-18 2021-02-18 Outpatient [facility], JOMA MDA MDA [id number] MD 10:02:06 11:51:00 Mitchell o n 2021-02-17 2021-02-17 [facility] MDA MDA [id number] MD 11:38:38 23:59:00 Mitchell o n 2021-02-04 2021-02-04 [facility]patient [facility], MDA MDA [id number] MD 09:57:30 15:46:10 JOAN Wrayers o n 2021-02-04 2021-02-04 Outpatient [facility], CARLOS[place] MDA MDA [id number] MD 12:12:31 15:19:41 Mitchell o n 2021-02-03 2021-02-03 Outpatient EL MDA MDA [id number] MD 13:13:39 23:59:00 Mitchell o n 2021-02-03 2021-02-03 Outpatient EL MDA MDA [id number] MD 10:11:36 13:12:00 Mitchell o n 2021-02-03 2021-02-03 Outpatient EL MDA MDA [id number] MD 12:04:24 12:04:24 Mitchell o n 2021-02-03 2021-02-03 Outpatient EL MDA MDA [id number] MD 09:22:01 09:22:01 Mitchell o n 2021-01-22 2021-01-22 [facility] MDA MDA [id number] MD 11:27:04 11:27:04 JOAN Wrayers o quinn 2021-01-21 2021-01-21 [facility] MDA MDA [id number] MD 09:00:00 23:59:00 Mitchell o n 2021-01-21 2021-01-21 [facility] MDA MDA [id number] MD 10:52:04 16:38:21 Mitchell o n 2021-01-07 2021-01-07 Outpatient [facility], JOWV MDA MDA [id number] MD 09:45:00 23:59:00 Mitchell o n 2021-01-07 2021-01-07 Outpatient RODERICK, MDA MDA [id number] 09:44:10 11:02:42 JOAN Mitchell o n 2021-01-07 2021-01-07 Outpatient ANGIELEONOR Mcdermott MDA MDA [id number] MD 08:56:19 09:44:00 Mitchell o n 2021-01-06 2021-01-06 Outpatient TALIB, MDA MDA [id number] MD 14:48:37 15:16:07 HUNTER Mitchell o n 2020-12-25 2020-12-25 Outpatient ANGIEBaldemar, LEONOR MDA MDA [id number] MD 09:02:58 09:02:58 Mitchell o n 2020-12-24 2020-12-24 Outpatient MDA MDA [id number] MD 10:26:32 23:59:00 Mitchell o n 2020-12-24 2020-12-24 Outpatient NABEEL MDA MDA [id number] MD 10:56:40 14:13:28 IIIMarieo n 2020-12-10 2020-12-10 [facility] [place] MDA MDA [id number] MD 11:40:31 23:59:00 Mitchell o n 2020-12-10 2020-12-10 [facility] [place] MDA MDA [id number] MD 14:11:26 16:52:31 Mitchell o n 2020-12-10 2020-12-10 Outpatient RODERICK, MDA MDA [id number] MD 12:37:59 14:11:30 JOAN Wrayers o quinn 2020-12-05 2020-12-05 Outpatient MAKI, MDA MDA [id number] MD 15:30:30 16:06:06 MORE Wrayers o n 2020-11-27 2020-11-27 Outpatient OCTAVIO, MDA MDA [id number] MD 09:40:56 23:59:00 BRANNON Wrayers o n 2020-11-27 2020-11-27 Outpatient RODERICK, MDA MDA [id number] MD 10:13:01 10:13:01 JOAN Wrayers o n 2020-11-26 2020-11-26 Outpatient ANGIECALROS McdermottWV MDA MDA [id number] 10:03:25 23:59:00 Mitchell o quinn 2020-11-26 2020-11-26 Outpatient [facility], JOMA MDA MDA [id number] 10:42:37 13:47:40 Mitchell o quinn 2020-11-12 2020-11-12 Outpatient [facility], JOMA MDA MDA [id number] 13:00:00 23:59:00 Mitchell o quinn 2020-11-12 2020-11-12 Outpatient [facility], MDA MDA [id number] MD 10:14:16 13:08:15 JOAN Medrano o quinn 2020-11-12 2020-11-12 [facility] JOMA MDA MDA [id number] 09:59:52 12:59:00 Mitchell o quinn 2020-11-08 2020-11-08 [facility] JOMA MDA MDA [id number] 12:04:02 12:04:02 Mitchell o quinn 2020-11-08 2020-11-08 [facility] JOMA MDA MDA [id number] 11:16:06 11:16:06 Mitchell o quinn 2020-11-08 2020-11-08 [facility] JOMA MDA MDA [id number] 08:38:11 08:38:11 Mitchell o quinn 2020-10-30 2020-10-30 [facility], MDA MDA [id number] 07:57:01 07:57:01 JOAN Medrano o quinn 2020-10-29 2020-10-29 [facility] JOMA MDA MDA [id number] 09:00:00 23:59:00 Mitchell o quinn 2020-10-29 2020-10-29 [facility] JOMA MDA MDA [id number] 10:54:59 14:09:00 Mitchell o quinn 2020-10-15 2020-10-15 [facility] JOMA MDA MDA [id number] 12:45:00 23:59:00 Mitchell o quinn 2020-10-15 2020-10-15 Outpatient [facility], JOMA MDA MDA [id number] 14:16:48 19:35:53 Mitchell o quinn 2020-10-15 2020-10-15 [facility] MDA MDA [id number] 13:13:07 14:10:53 JOAN Medrano o quinn 2020-10-01 2020-10-01 [facility] MDA MDA [id number] 13:32:03 23:59:00 Mitchell o n 2020-10-01 2020-10-01 [facility] MDA [id number] 10:16:45 13:31:00 Mitchell o n 2020-10-01 2020-10-01 [facility] MDA [id number] 07:45:00 10:15:00 Mitchell o quinn 2020-10-01 2020-10-01 [facility] MDA MDA [id number] 08:16:32 10:01:11 JOAN Medrano o quinn 2020-09-17 2020-09-18 [facility] MDA [id number] 10:53:03 09:46:15 Mitchell o quinn 2020-09-17 2020-09-17 [facility] MDA [id number] 09:00:00 23:59:00 Mitchell o quinn 2020-09-17 2020-09-17 [facility], MDA MDA [id number] 09:36:42 10:43:11 JOAN Medrano o quinn 2020-09-04 2020-09-04 Outpatient [facility], MDA MDA [id number] 13:48:47 14:05:43 BRANDAN Porras so quinn 2020-09-03 2020-09-03 Outpatient [facility], MDA MDA [id number] 14:17:50 23:59:00 JOAN Medrano o quinn 2020-09-03 2020-09-03 Outpatient [facility], MDA MDA [id number] 12:00:00 14:16:00 JOAN Medrano o quinn 2020-09-03 2020-09-03 Outpatient [facility], MDA MDA [id number] 12:18:23 14:13:58 JOANLAWANDA ball 2020-08-30 2020-08-30 Outpatient DANNI VAUGHN, MDA MDA [id number] 07:00:00 23:59:00 JOAN ball 2020-08-30 2020-08-30 Outpatient DANNI VAUGHN, MDA MDA [id number] MD 13:03:24 13:03:24 JOAN ball 2020-08-30 2020-08-30 Outpatient EL RODERICK, MDA MDA [id number] 07:32:13 09:39:27 JOAN ball 2020-08-30 2020-08-30 Outpatient DANNI VAUGHN, MDA MDA [id number] 09:34:58 09:34:58 JOAN ball 2020-08-21 2020-08-27 Inpatient ER [place], MDA Oncology [id number] 19:34:00 14:03:00 BRANNON ball 2020-08-19 2020-08-19 Outpatient JONATAN, MDA MDA [id number] 13:08:43 13:08:43 VON ball 2020-08-19 2020-08-19 Outpatient JONATAN, MDA MDA [id number] 12:56:14 12:56:14 VON ball 2020-08-16 2020-08-16 Outpatient RODERICK, MDA MDA [id number] 12:55:54 12:55:54 JOAN ball 2020-08-13 2020-08-13 Outpatient RODERICK, MDA MDA [id number] 10:00:00 23:59:00 JOAN ball 2020-08-13 2020-08-13 Outpatient RODERICK, MDA MDA [id number] 10:28:35 14:30:54 JOAN ball 2020-08-09 2020-08-09 Outpatient RODERICK, MDA MDA [id number] 13:23:14 23:59:00 JOAN ball 2020-08-05 2020-08-07 Inpatient ER HOWARD, MDA Oncology [id number] 17:36:00 15:24:00 REAL ball 2020-07-30 2020-07-31 Outpatient [facility], JOMA MDA MDA [id number] 12:25:06 08:45:42 Mitchell o n 2020-07-30 2020-07-30 Outpatient [facility], MDA MDA [id number] MD 11:37:19 12:22:46 JOAN Mitchell o n 2020-07-29 2020-07-29 Outpatient [facility], JOMA MDA MDA [id number] 13:16:54 23:59:00 Mitchell o n 2020-07-29 2020-07-29 Outpatient [facility], JOMA MDA MDA [id number] MD 15:38:15 15:38:15 Mitchell o n 2020-07-29 2020-07-29 Outpatient [facility], JOMA MDA MDA [id number] MD 15:03:04 15:03:04 Mitchell o n 2020-07-29 2020-07-29 Outpatient [facility], JOMA MDA MDA [id number] 12:33:54 12:33:54 Mitchell o n 2020-07-23 2020-07-23 Outpatient [facility], MDA MDA [id number] MD 11:24:36 12:05:37 DEANA Wrayers o n 2020-07-16 2020-07-17 Outpatient [facility], JOMA MDA MDA [id number] MD 10:19:39 07:19:08 Mitchell o n 2020-07-16 2020-07-16 Outpatient [facility], JOMA MDA MDA [id number] 08:45:00 23:59:00 Mitchell o n 2020-07-16 2020-07-16 Outpatient [facility], MDA MDA [id number] MD 09:28:43 10:17:16 JOAN Mitchell o n 2020-07-08 2020-07-08 Outpatient [facility], MDA MDA [id number] MD 10:00:00 23:59:00 JOAN Mitchell o n 2020-07-02 2020-07-02 Outpatient [facility], JOMA MDA MDA [id number] 12:45:00 23:59:00 Mitchell o n 2020-07-02 2020-07-02 Outpatient [facility], MDA MDA [id number] 13:04:56 15:56:11 JOAN Wrayers o quinn 2020-07-02 2020-07-02 Outpatient [facility], LEONOR MDA MDA [id number] 14:10:51 14:10:51 Mitchell o n 2020-06-18 2020-06-19 Outpatient [facility], JOWV MDA MDA [id number] 10:17:32 07:56:43 Mitchell o n 2020-06-18 2020-06-18 Outpatient [facility], MDA MDA [id number] 12:55:25 23:59:00 JOAN Wrayers o n 2020-06-18 2020-06-18 [facility] [place] MDA MDA [id number] 08:15:00 12:54:00 Mitchell o quinn 2020-06-18 2020-06-18 Outpatient [facility], MDA MDA [id number] 09:01:04 10:21:53 JOAN Wrayers o quinn 2020-06-04 2020-06-04 Outpatient [facility], [place] MDA MDA [id number] 14:56:31 23:59:00 Mitchell o n 2020-06-04 2020-06-04 [facility] MDA MDA [id number] 14:00:00 14:55:00 Mitchell o n 2020-06-04 2020-06-04 Outpatient [facility], MDA MDA [id number] 07:06:20 07:06:20 JOAN Wrayers o quinn 2020-05-17 2020-05-17 [facility] [place] MDA MDA [id number] 12:42:05 23:59:00 Mitchell o n 2020-05-17 2020-05-17 Outpatient [facility], JOWV MDA MDA [id number] 10:44:34 12:41:00 Mitchell o n 2020-05-17 2020-05-17 Outpatient [facility], MDA MDA [id number] 11:16:10 11:16:10 JOAN Wrayers o quinn 2020-05-09 2020-05-09 Outpatient [facility], [place] MDA MDA [id number] MD 11:59:00 23:59:00 Mitchell o n 2020-05-05 2020-05-05 [facility] MDA MDA [id number] MD 13:58:02 15:43:21 JOAN Mitchell o n 2020-05-03 2020-05-03 Outpatient [facility], LEONOR MDA MDA [id number] 09:30:00 23:59:00 Mitchell o n 2020-05-03 2020-05-03 Outpatient [facility], [place] MDA MDA [id number] MD 11:39:34 11:39:34 Mitchell o n 2020-05-03 2020-05-03 Outpatient [facility], MDA MDA [id number] MD 10:10:33 11:28:39 JOAN Mitchell o n 2020-05-02 2020-05-02 Outpatient [facility], LEONOR MDA MDA [id number] MD 13:50:54 13:50:54 Mitchell o n 2020-05-02 2020-05-02 Outpatient [facility], [place] MDA MDA [id number] MD 11:12:06 11:12:06 Mitchell o n 2020-05-02 2020-05-02 Outpatient [facility], [place] MDA MDA [id number] MD 10:42:01 10:42:01 Mitchell o n 2020-04-19 2020-04-19 Outpatient [facility], LEONOR MDA MDA [id number] 09:45:00 23:59:00 Mitchell o n 2020-04-19 2020-04-19 Outpatient [facility], [place] MDA MDA [id number] MD 11:12:57 11:12:57 Mitchell o n 2020-04-19 2020-04-19 Outpatient [facility], MDA MDA [id number] MD 10:02:02 10:58:43 JOAN Mitchell o n 2020-04-08 2020-04-12 Inpatient UR SIEFKER-RAD MDA Oncology [id number] 10:34:00 17:48:00 VINCENT NOE 2020-04-11 2020-04-11 Inpatient HOWARD, MDA MDA [id number] MD 14:52:27 14:55:30 REAL ball 2020 2020 Inpatient LINDA, MDA MDA [id number] MD 07:31:34 10:18:58 STERLING ball 2020-04-09 2020-04-09 Inpatient ANITA, MDA MDA [id number] MD 05:10:40 05:21:31 REAL abll 2020-04-06 2020-04-06 Outpatient DANNI ERIC, MDA MDA [id number] MD 14:05:32 14:25:13 JAVY ball 2020-04-04 2020-04-04 Outpatient RODERICK, MDA MDA [id number] 14:56:45 23:59:00 JOAN ball 2020-03-26 2020-03-29 Outpatient RODERICK, MDA MDA [id number] 12:16:18 07:17:04 JOAN ball 2020-03-26 2020-03-26 Outpatient RODERICK, MDA MDA [id number] 09:00:00 23:59:00 JOAN ball 2020-03-26 2020-03-26 Outpatient RODERICK, MDA MDA [id number] 10:00:12 12:12:36 JOAN ball 2020-03-18 2020-03-18 Outpatient RODERICK, MDA MDA [id number] 10:00:00 23:59:00 JOAN blal 2020-03-05 2020-03-08 Inpatient DANNI LAWS, MDA Oncology [id number] MD 13:39:00 11:32:00 KATHIE ball 2020-03-07 2020-03-07 Inpatient DANNI LAWS, MDA MDA [id number] MD 11:28:25 11:47:30 KATHIE ball 2020-03-06 2020-03-06 Inpatient DANNI LAWS, MDA MDA [id number] MD 09:07:15 09:14:24 KATHIE ball 2020-03-05 2020-03-05 Inpatient DANNI [place], MDA MDA [id number] MD 17:06:37 17:35:56 BRANNON Wrayers o n 2020-03-05 2020-03-05 [facility] MDA MDA [id number] 11:34:36 12:53:39 JOAN Wrayers o n 2020-03-04 2020-03-04 [facility] MDA MDA [id number] 09:32:00 23:59:00 JOAN Wrayers o n 2020-03-03 2020-03-03 [facility] MDA MDA [id number] 13:45:00 23:59:00 JOAN Wrayers o n 2020-03-03 2020-03-03 [facility] MDA MDA [id number] 14:08:57 14:08:57 JOAN Wrayers o n 2020-02-13 2020-02-16 Inpatient SABRINA, MDA Oncology [id number] 18:46:00 13:18:00 LESLYE Wrayers o n 2020-02-13 2020-02-13 Inpatient OCTAVIO, MDA MDA [id number] MD 23:13:20 23:31:26 BRANNON Wrayers o n 2020-02-13 2020-02-13 Inpatient [place], MDA MDA [id number] MD 21:31:50 21:45:21 BRANNON Mitchell o n 2020-02-13 2020-02-13 Outpatient [facility], MDA MDA [id number] 13:00:00 18:45:00 NAEL Wrayers o n 2020-02-13 2020-02-13 [facility] MDA MDA [id number] 13:57:51 15:41:54 JOAN Wrayers o n 2020-02-09 2020-02-09 [facility] MDA MDA [id number] 09:15:00 23:59:00 JOAN Wrayers o n 2020-02-09 2020-02-09 Outpatient ALHALABI, MDA MDA [id number] 12:19:57 14:14:33 JOAN Mitchell o n 2020-01-31 2020-01-31 [facility] MDA MDA [id number] 11:15:00 23:59:00 JOAN Wrayers o n 2020-01-31 2020-01-31 [facility] MDA MDA [id number] 12:12:44 20:04:29 JOAN Medrano o quinn 2020-01-26 2020-01-29 [facility] MDA Oncology [id number] MD 15:23:00 17:39:00 FREDDY ball 2020-01-26 2020-01-26 Inpatient [place], MDA MDA [id number] MD 17:07:44 17:25:25 BRANNON chin n 2020-01-26 2020-01-26 Outpatient [facility], MDA MDA [id number] 12:42:14 14:47:37 JOAN Wrayers o n 2020-01-25 2020-01-25 Outpatient [facility], MDA MDA [id number] 17:15:00 23:59:00 JOAN Medrano o quinn 2020-01-25 2020-01-25 Outpatient [facility], MDA MDA [id number] 18:12:28 18:12:28 JOAN ball 2020-01-09 2020-01-12 Inpatient [facility] MDA Oncology [id number] 10:26:00 15:18:00 EHDYVINCENT Carbone Gabrielle ball 2020-01-09 2020-01-09 Inpatient [facility], MDA MDA [id number] 12:19:38 12:37:07 REAL ball 2020-01-09 2020-01-09 Outpatient [facility], MDA MDA [id number] 07:45:00 09:54:00 JOAN ball 2020-01-09 2020-01-09 Outpatient [facility], MDA MDA [id number] 08:17:10 09:26:39 JOAN Wrayers o quinn 2020-01-02 2020-01-03 Outpatient [facility], MDA MDA [id number] 11:54:52 06:52:54 JOAN Wrayers o quinn 2020-01-02 2020-01-02 Outpatient [facility], MDA MDA [id number] 07:56:20 23:59:00 JOAN Wrayers o quinn 2020-01-02 2020-01-02 Outpatient [facility], MDA MDA [id number] 08:15:10 10:25:27 JOAN ball 2019-12-29 2019-12-29 Outpatient EL LANI, MDA Surgical [id number] 07:16:00 12:25:00 ROSY ball 2019-12-29 2019-12-29 Outpatient EL MDA MDA [id number] MD 10:30:01 10:30:01 Mitchell ball 2019-12-29 2019-12-29 Outpatient EL MDA MDA [id number] MD 08:48:20 08:48:20 Mitchell ball 2019-12-29 2019-12-29 Outpatient LANI, MDA MDA [id number] MD 07:29:32 07:29:32 ROSY ball 2019-12-29 2019-12-29 Outpatient EL MEGAN, MDA MDA [id number] 06:56:51 07:15:00 HANNAH ball 2019-12-28 2019-12-28 Outpatient EL MADSEN-ROMAIN, MDA MDA [id number] 10:36:07 11:18:17 GABRIELLE ball 2019-12-28 2019-12-28 Outpatient EL JEAN, MDA MDA [id number] 07:18:17 07:18:17 JOHN ball 2019-12-27 2019-12-27 Outpatient EL SUN, MDA MDA [id number] 15:37:17 15:37:17 ELVA ball 2019-12-22 2019-12-22 Outpatient EL [facility] MDA MDA [id number] 09:54:00 23:59:00 Mitchell BOLAÑOS 2019-12-18 2019-12-21 Inpatient EL OCTAVIO, MDA Oncology [id number] 14:35:00 12:11:00 BRANNON ball 2019-12-20 2019-12-20 Inpatient EL OCTAVIO, MDA MDA [id number] MD 09:57:57 11:29:48 BRANNON ball 2019-12-18 2019-12-18 Inpatient EL HOWARD, MDA MDA [id number] MD 23:03:59 23:04:05 REAL ball 2019-12-18 2019-12-18 Inpatient EL RODERICK, MDA MDA [id number] 20:32:28 21:42:13 JOAN ball 2019-12-18 2019-12-18 Inpatient EL HOWARD, MDA MDA [id number] MD 20:55:52 21:36:04 REAL ball 2019-12-18 2019-12-18 Outpatient EL ALHALABI, MDA MDA [id number] 12:26:14 14:33:40 JOAN ball 2019-12-18 2019-12-18 Outpatient EL PISTERS, MDA MDA [id number] 09:33:20 11:53:15 JOHN ball 2019-12-14 2019-12-15 Outpatient EL HOYOS, MDA Inter Rad [id number] MD 10:55:00 12:48:00 ISABEL ball 2019-12-13 2019-12-13 Outpatient EL PISTERS, MDA MDA [id number] MD 13:47:54 23:59:00 JOHN ball 2019-12-13 2019-12-13 Outpatient EL PISTERS, MDA MDA [id number] MD 13:54:57 13:54:57 JOHN ball 2019-12-13 2019-12-13 Outpatient EL PISTERS, MDA MDA [id number] MD 02:07:53 02:07:53 JOHN ball 2019-12-13 2019-12-13 Outpatient EL PISTERS, MDA MDA [id number] MD 02:07:52 02:07:52 JOHN ball 2019-12-13 2019-12-13 Outpatient EL PISTERS, MDA MDA [id number] MD 02:07:51 02:07:51 JOHN ball 2019-12-13 2019-12-13 Outpatient EL PISTERS, MDA MDA [id number] MD 02:07:51 02:07:51 JOHN ball 2019-12-13 2019-12-13 Outpatient EL PISTERS, MDA MDA [id number] MD 02:07:46 02:07:46 JOHN ball 2019-12-12 2019-12-12 Outpatient EL ALHALABI, MDA MDA [id number] 15:00:00 23:59:00 JOAN ball 2019-12-12 2019-12-12 Outpatient EL BERNICEERIA MDA MDA [id number] 17:23:28 17:36:54 Mitchell ball 2019-12-12 2019-12-12 Outpatient EL ALHALABI, MDA MDA [id number] 10:47:51 14:59:00 JOAN ball 2019-12-12 2019-12-12 Outpatient EL ALHALABI, MDA MDA [id number] 13:13:58 14:49:06 JOAN ball 2019-12-12 2019-12-12 Outpatient EL ALHALABI, MDA MDA [id number] 14:45:33 14:45:33 JOAN ball 2019-12-12 2019-12-12 Outpatient EL ERI QUEENA MDA MDA [id number] 10:08:10 10:08:10 Mitchell o quinn 2019-12-12 2019-12-12 Outpatient MELITON ALANIZ MDA MDA [id number] 08:31:18 08:31:18 Mitchell o quinn 2019-12-07 2019-12-08 Outpatient EL PISTERS, MDA Urology [id number] 11:15:00 11:53:00 JOHN ball 2019-12-05 2019-12-05 Outpatient EL PISTERS, MDA MDA [id number] 12:57:57 23:59:00 JOHN ball 2019-12-05 2019-12-05 Outpatient EL PISTERS, MDA MDA [id number] 13:38:32 17:25:18 JOHN ball 2019-12-05 2019-12-05 Outpatient EL PISTERS, MDA MDA [id number] 13:21:06 13:21:06 JOHN ball 2019-12-05 2019-12-05 Outpatient EL GERMAN-BLOO MDA MDA [id number] 11:30:00 12:56:00 LISA Briggs Mitchell ball 2019-12-05 2019-12-05 Outpatient EL ALHALABI, MDA MDA [id number] 11:02:57 12:50:42 JOAN Medrano o quinn 2019-12-04 2019-12-04 Outpatient EL PISTERS, MDA MDA [id number] 10:36:00 14:46:27 JOHN ball 2019-12-04 2019-12-04 Outpatient EL MDA MDA [id number] 10:29:51 10:30:00 Mitchell o quinn 2019-12-01 2019-12-01 Outpatient EL PISTERS, MDA MDA [id number] 11:17:05 13:40:04 JOHN ball 2018-10-20 2018-11-19 Recurring nullFlavo TIRR [id number] Memoria 15:11:00 04:59:00 [facility] 01 barbara Mosher 2018-09-07 2018-10-07 Recurring nullFlavo TIRR [id number] Memoria 13:00:00 04:59:00 r [facility] 00 l Nomi Mosher Results Test Description Test Time Test Comments Results Result Comments Source Sed Rate 2021-06-06 17:39:52 Test Item Value Reference Range Interpretation Comme nts Sed Rate (test code = 4537-7) 90 See_Comment H [Automated message] The system which generated this result transmitted ref erence range: 0 - 9 mm/hr. The re ference range was not used to int erpret this result as arleen l/abnormal. Lab Interpretation (test code Abnormal = 42588-4) MD [id number] 16:50:07 Test Item Value Reference Range Interpretation Comments ACTH (test 8 pg/mL 7-63 Results greater than code = 2141-0) 1826 pg/mL ma y not be reliable due to matrix effect w ith extended diluti on as it exceeds the call center nurse's recommended [place] it. ACTH reference intervals are established for the morning hours f rom 7-10 am. Due to the circadian rhyth m of ACTH levels in plasma, the [facility] ple collection time must be noted. Cauti on should be exerc ised when interpreti ng such values and done in conjunction with clinical contex t. MARIAM (test code This lab cannot be = MARIAM) scheduled at the following locations due to collection/proccess ing restrictions:[place] [facility] MD [id number] 16:19:10 Test Item Value Reference Range Interpretation Comments CRP (test code = 43.45 mg/[place] [address]-0) CRP assay are a s follows: Reference range s when used to assess cardi ac risk: <1.00 mg/L Low cardiovascular risk 1.00-3.00 mg/L Average cardiovascular risk >3.00 mg/L High cardi ovascular risk.Reference ranges when used to assess inflammatory re sponses: Less than or eq ual to 10.00 mg/L. MD Donaldl, [id number] 16:07:12 Test Item Value Reference Range Interpretation Comments Cortisol (test code = 14.49 See_Comment Cortis ol reference 2143-6) intervals are e stablished for the morning hours from 6-10 am and aft ernoon hours 4-8 pm. D ue to circadian rhyth m of cortisol levels in serum and plasma, the sample collection time must be noted. Caution should be exercised when interpreting mojica ch values and done in con junction with clinical c ontext. Serum Cortisol Reference Ranges: Morning (6-10am) (4.8 - 19.5)Aft ernoon (4-8pm) (2.5 - 11.9) Testing Perform ed at [facility] Lab Lean Consultant [facility], [facility], [place] [address] [Automated mess age] The system which ge nerated this result tra nsmitted reference range : 4.80 - 19.50 mcg/dL. T he reference range was not used to interpr et this result as arleen l/abnormal. MD Escudero [id number] 15:59:52 Test Item Value Reference Range Interpretation Comments T4 Free (test code 1.10 ng/dL 0.93-1.70 Testing P erformed at [facility] = 3024-7) Lab Le[facility] Consultant [facility], [address], [address], [place] [address] MD [id number] 15:59:49 Test Item Value Reference Range Interpretation Comments TSH (test code = 1.95 See_Comment Note: New Methodology and 38411-0) Reference Range change effective 2017 at 1400 Testing Perform ed at [facility] Lab Lean Consultant [facility], [address], [address], [place] [address] [Automated mess age] The system which ge nerated this result transmit fernandez reference range : 0.27 - 4.20 mcunit/mL. The reference range was not used to interpr et this result as arleen l/abnormal. MD TaverasLipase [id number] 15:54:31 Test Item Value Reference Range Interpretation Comments Lipase Lvl (test code 30 U/L 13-60 Testin g Performed at [facility] = 3040-3) Lab Lean Consultant [facility], [address] [place] [address] [address], [address], [place] [address] MD TaverasAmylase [id number] 15:54:30 Test Item Value Reference Range Interpretation Comments Amylase Lvl (test code = 117 U/L 28-100 H Afshan ting Performed at 1798-8) [facility] Lab Ambulat ory Care [facility], [address], [place] [address] Lab Interpretation (test Abnormal code = 89203-0) MD TaverasFractionated [id number] 15:48:43 Test Item Value Reference Range Interpretation Comments Bili Total (test <0.3 See_Comment Direct and indirect code = 1975-2) bilirubin vanesa l not be reported when T otal bilirubin resul t is <0.3 mg/dLIndocyanin e Green (ICG) may cause false ly elevated bilirubin resul ts. Total and direct bilirubi n must not be measured from s amples containing indo cyanine green. False el evation of total bilirubin can be seen in patients wit h IgG concentrations above 28 g/L.Testing Per formed at [facility] Lab Lean Consultant [facility], [address] [place] [address] [address], [address], [place] [address] [Automated mess age] The system which ge nerated this result transmit fernandez reference range: <=1.2 mg /dL. The reference range was not used to interpret is result as normal/abnormal . MD TaverasGlomerular Filtration [id number] 15:48:42 Test Item Value Reference Range Interpretation Comments eGFR-AA (test code = 68 See_Comment Normal eGFR >= 60 50789-2) mL/min/1.73 m2 Note: The eGFR is danika culated using the CKD-E PI equation. The e GFR declines with a ge. eGFR <60 mL/min /1.73 m2 is considere d as "decreased". Th is equation should only be used for pat ients 18 and older. According to e National Kidney Foundation's Ki dney Disease Outcome Quality Initiat tadeo (KDOQI) classif ication and 2012 Kidney Disease Improvi ng Global Outcomes (KDIGO) Clinica l Practice Guidel ine, the stage of CK D should be categ orized based on estima fernandez GFR. Stage Desc ription GFR mL/mi n/1.73 m21 Normal or h igh GFR >=902 Mildly decreased GFR 60-893a M ildly to moderately decreased GFR 45-593b Moderat flaquito to severely decrea sed GFR 30-444 Gladys rely decreased GFR 15-295 Kidney f ailure <15 Testi ng Performed at [facility] Lab Lean Consultant [facility], [address], [address], [place] [address] [Automat ed message] The sy stem which generated this result transmit fernandez reference range : >=60 mL/min/1.73 sq. m. The reference range was not used to int erpret this result as normal/abnormal . eGFR-SANTOS (test code = 59 See_Comment L Normal eGFR >= 60 98954-7) mL/min/1.73 m2 Note: The eGFR is danika culated using the CKD-E PI equation. The e GFR declines with a ge. eGFR <60 mL/min /1.73 m2 is considere d as "decreased". Th is equation should only be used for pat ients 18 and older. According to th e National Kidney Foundation's [facility] Disease Outcome Quality Initiat tadeo (KDOQI) classif ication and 2012 Kidney Disease Improvi ng Global Outcomes (KDIGO) Clinica l Practice Guidel ine, the stage of CK D should be categ orized based on estima fernandez GFR. Stage Desc ription GFR mL/mi n/1.73 m21 Normal or h igh GFR >=902 Mildly decreased GFR 60-893a M ildly to moderately decreased GFR 45-593b Moderat flaquito to severely decrea sed GFR 30-444 Gladys rely decreased GFR 15-295 Kidney f ailure <15 Testin g Performed at [facility] Lab Lean Consultant [facility], [address], [place] [address] [Automat ed message] The sy stem which generated this result transmit fernandez reference range : >=60 mL/min/1.73 sq. m. The reference range was not used to int erpret this result as normal/abnormal . Lab Interpretation Abnormal (test code = 17470-7) MD TaverasTotal [id number] 15:48:41 Test Item Value Reference Range Interpretation Comments Total Protein (test 7.2 g/dL 6.4-8.3 Testing Performed at [facility] code = 2885-2) Lab Ambulator y Care [facility], [address], [address], [place] [address] MD TaverasMagnesium [id number] 15:48:40 Test Item Value Reference Range Interpretation Comments Magnesium (test code = 2.1 mg/dL 1.6-2.6 [place] [address]-4) [facility] Lab Ambulat ory Care [facility], [address], [address], [place] [address] MD TaverasCalcium [id number] 15:48:39 Test Item Value Reference Range Interpretation Comments Calcium Lvl (test 8.8 mg/dL 8.4-10.2 Testing Pe rformed at code = 82195-7) [facility] Lab Ambu latory Care [facility], [address], [address], [place], [place] [address] MD TaverasElectrolyte [id number] 15:48:38 Test Item Value Reference Range Interpretation Comments Sodium Lvl (test code = 140 See_Comment Test ing Performed at [facility] 2951-2) Lab Lean Consultant [facility], [address], [place] [address] [Automated mess age] The system which ge nerated this result tra nsmitted reference range : 136 - 145 mEq/L. The reference range was not u sed to interpret this result as normal/abnormal . Potassium Lvl (test 4.6 See_Comment Testing Performed at [facility] code = 2823-3) Lab Ambulator y Care [facility], [address], [place] [address] [Automated mess age] The system which ge nerated this result tra nsmitted reference range : 3.5 - 5.1 mEq/L. The reference range was not u sed to interpret this result as normal/abnormal . Chloride (test code = 107 See_Comment Testin g Performed at [facility] 2075-0) Lab Lean Consultant [facility], [address], [place] [address] [Automated mess age] The system which ge nerated this result tra nsmitted reference range : 98 - 107 mEq/L. The refe rence range was not u sed to interpret this result as normal/abnormal . CO2 (test code = 23 See_Comment Testing Per formed at [facility] 2027-11) Lab Lean Consultant [facility], [address], [place] [address] [Automated mess age] The system which ge nerated this result tra nsmitted reference range : 22 - 29 mEq/L. The refe rence range was not u sed to interpret this result as normal/abnormal . Anion Gap (test code = 10 See_Comment Testi ng Performed at [facility] 39723-9) Lab [facility] Bldg, [address], [place] [address] [Automated mess age] The system which ge nerated this result tra nsmitted reference range : 4 - 14 mEq/L. The refe rence range was not u sed to interpret this result as normal/abnormal . MD TaverasAlkaline [id number] 15:48:37 Test Item Value Reference Range Interpretation Comments Alk Phos (test code = 85 U/L 40-129 Testin g Performed at [facility] 6508-6) Lab Lean Consultant [facility], [address], [place] [address] MD TaverasAlbumin [id number] 15:48:36 Test Item Value Reference Range Interpretation Comments Albumin Lvl (test code 3.8 See_Comment Testi ng Performed at B = 8932) Lab Lean Consultant [facility], [address], [place] [address] [Automated mess age] The system which ge nerated this result tra nsmitted reference range : 3.5 - 5.2 gm/dL. The refe rence range was not used to interpret this result as normal/abnormal . MD TaverasAspartate [id number] 15:48:35 Test Item Value Reference Range Interpretation Comments AST (test code = 16 U/L See_Comment Testing Per formed at [facility] 1920-8) Lab Lean Consultant [facility], [address], [place] [address] [Automated mess age] The system which ge nerated this result transmit fernandez reference range : <=40. The reference range was not used to interpr et this result as arleen l/abnormal. MD [id number] 15:48:34 Test Item Value Reference Range Interpretation Comments ALT (test code = 15 U/L See_Comment Testing Per formed at [facility] 1742-6) Lab Lean Consultant [facility], [address], [place] [address] [Automated mess age] The system which ge nerated this result transmit fernandez reference range : <=41. The reference range was not used to interpr et this result as arleen l/abnormal. MD Taveras.Serum [id number] 15:48:32 Test Item Value Reference Range Interpretation Comments Creatinine (test code = 1.21 mg/dL 0.67-1.17 H Test ing Performed 2160-0) at [facility] Lab Lean Consultant [facility], [address], [place], [place] [address] Lab Interpretation (test Abnormal code = 66809-8) MD [id number] 15:48:31 Test Item Value Reference Range Interpretation Comments BUN (test code = 3094-0) 35 mg/dL 6-23 H Afshan ting Performed at [facility] Lab Ambulat ory Care [facility], [address], [place] [address] Lab Interpretation (test Abnormal code = 07825-2) MD TaverasGlucose [id number] 15:48:30 Test Item Value Reference Range Interpretation Comments Glucose Level (test code 119 mg/dL 70-99 H Eff ective 10/02/15, = 2345-7) the glucose reference inter vals have been updat ed based on Americ an Diabetes Associ ation guidelines (Standards of Medical Care in Diabetes 2016. Diabetes Care 2 016; 39: S13-S22).Fa sting blood glucose:Normal: 70-99 mg/dLImpa ired fasting glucose (increased risk for diabetes or pre-diabetes): 100-125 mg/dLDiabetes mellitus: >/=1 26 mg/dL Random bl ood glucose:Normal: 70-199 mg/dLNot e: Random glucose >100 mg/dL is associ ated with increased risk for diabetes Te sting Performed at [facility] Lab Lean Consultant [facility], [address], [facility] [place] [address] Lab Interpretation (test Abnormal code = 27864-4) MD TaverasLnln[id number] 15:23:00 Test Item Value Reference Range Interpretation Comments Neutrophil % (test code 64.6 % 42.0-66.0 As p art of = 770-8) Differential performed at [facility] Lab Lean Consultant [facility], [address], [place] [address] Lymphocyte % (test code 21.6 % 24.0-44.0 L = 736-9) Monocyte % (test code = 11.6 % 2.0-7.0 H 5905-5) Eosinophil % (test code 1.4 % 1.0-4.0 = 713-8) Basophil % (test code = 0.4 % 0.0-1.0 87511-6) IGRE % (test code = 0.4 % 0.0-0.4 IGRE % c ount includes 97164-1) Metamyelocytes, Myelocytes, and Promyelocytes. As part of Differe ntial performed at [facility] Lab Lean Consultant [facility], [address], [facility] [place] [address] Neutrophil Abs (test 4.60 K/uL 1.70-7.30 code = 751-8) Lymphocyte Abs (test 1.54 K/uL 1.00-4.80 code = 731-0) Monocyte Abs (test code 0.83 K/uL 0.08-0.70 H = 742-7) Eosinophil Abs (test 0.10 K/uL 0.04-0.40 code = 711-2) Basophil Abs (test code 0.03 K/uL 0.00-0.10 = 704-7) IG Abs (test code = 0.03 K/uL 0.00-0.04 56275-3) Lab Interpretation Abnormal (test code = 31157-0) MD Taveras.[id number] 15:22:49 Test Item Value Reference Range Interpretation Comments WBC (test code = 7.1 K/uL 4.0-11.0 6690-2) RBC (test code = 789-8) 3.34 See_Comment L [Au tomated message] The system [employer] generated this result transmitted ref erence range: 4.50 - 6 .00 M/uL. The refer ence range was not u sed to interpret this result as normal/abnor mal. Hgb (test code = 718-7) 10.2 See_Comment L As p art of CBC or as an individual orderable testi ng performed at [facility] Lean Consultant [facility], [address], [place] [address] [Automate d message] The sy stem which generated this result transmit fernandez reference range : 14.0 - 18.0 gm/dL. T he reference range was not used to int erpret this result as normal/abnormal . Hct (test code = 32.7 % 40.0-54.0 L As part of CBC or as 4544-3) an individual orderable testi ng performed at [facility] Lean Consultant Bldg, [address], [place] [address] MCV (test code = 787-2) 98 fL 82-98 MCH (test code = 785-6) 30.5 pg 27.0-31.0 MCHC (test code = 31.2 See_Comment [Automate d message] 786-4) The system [employer] generated this result transmitted ref erence range: 31.0 - 3 6.0 gm/dL. The refe rence range was not u sed to interpret this result as normal/abnor mal. RDW-SD (test code = 48.3 fL 35.1-46.3 H 48913-1) RDW-CV (test code = 13.5 % 12.0-15.5 788-0) Platelet count (test 221 K/uL 140-440 As part of CBC or as code = 777-3) an individual orderable testi ng performed at [facility] Lean Consultant [facility], [address], [place] [address] MPV (test code = 10.0 fL 4.0-10.4 47119-4) INRBC (test code = 0.0 % See_Comment The INRBC (instrument 98605-6) NRBC) value ref lects the enumeration of nucleated red b lood cells contained in a 200uL sampleof whole blood analyzed by the instrument. Thi s value maydiffer from the NRBC value repo rted in a manual differential,wh ich is based on a 100 cell differential. A s part of CBC testing performed at [facility] Lab Lean Consultant [address], [place] [address] [Automated mess age] The system [facility] h generated this result transmitted ref erence range: <=0.0. T he reference range was not used to int erpret this result as normal/abnormal . Lab Interpretation Abnormal (test code = 85647-7) [facility] [id number] 19:35:10 Test Item Value Reference Range Interpretation Comments POC Crea (test 0.9 mg/dL 0.6-1.3 Medications, code = 54544-8) especially h ydroxyurea or supplements, such as ascorbate, c an interfere with test results causing a falsely and significantly h igher result than exp ected. If a problem is suspected with a patient's resul t, a sample should b e sent to the laborato ry for confirmatory te sting. Method descript ion: The i-STAT is a n analyzer used f or in vitro quantific ation of various anal ytes in whole blood. e device uses a s rodri disposable cart ridge which contains microfabricated sensors, a emperatriz bration solution, fluid ics system, and a w aste chamber. Each t est cartridge conta ins chemically sens itive biosensors on a silicon chip at are configured to p erform specific tests. The microfabricated sensors measure analyte concent ration by an electroch emical assay. POC eGFR-AA (test 99 See_Comment Normal eGF R >= 60 code = 17068-7) mL/min/1.73 m2 The eGFR is calcula fernandez using the CKD-E PI equation. The e GFR declines with a ge. eGFR <60 mL/min /1.73 m2 is considere d as "decreased" Thi s equation should only be used for pat ients 18 and older. According to National Kidney Foundation's Ki dney Disease Outcome Quality Initiat tadeo (KDOQI) classif ication and 2012 Kidney Disease Improvi ng Global Outcomes (KDIGO) Clinica l Practice Guidel ine, the stage of CK D should be categ orized based on estima fernandez GFR. Stage Desc ription GFR mL/min/1.73 m21 Kidney damage w ith normal or high GFR >=902 Kidney da mage with mild decre ase in GFR 60-893a Mild to moderate decrea se in GFR 45-593b Moderate to sev ere decrease in GFR 30-444 Severe d ecrease in GFR 15-29 5 Kidney failure <15 (or dialysis) [Automated mess age] The system [employer] generated this result transmitted ref erence range: >=60 mL/min/1.73 m2. The reference range was not used to int erpret this result as normal/abnormal . POC eGFR-SANTOS (test 85 See_Comment Normal eG FR >= 60 code = 83844-3) mL/min/1.73 m2 The eGFR is calcula fernandez using the CKD-E PI equation. The e GFR declines with a ge. eGFR <60 mL/min /1.73 m2 is considere d as "decreased" Thi s equation should only be used for pat ients 18 and older. According to e National Kidney Foundation's Ki dney Disease Outcome Quality Initiat tadeo (KDOQI) classif ication and 2012 Kidney Disease Improvi ng Global Outcomes (KDIGO) Clinica l Practice Guidel ine, the stage of CK D should be categ orized based on estima fernandez GFR. Stage Desc ription GFR mL/min/1.73 m21 Kidney damage w ith normal or high GFR >=902 Kidney da mage with mild decre ase in GFR 60-893a Mild to moderate decrea se in GFR 45-593b Moderate to sev ere decrease in GFR 30-444 Severe d ecrease in GFR 15-29 5 Kidney failure <15 (or dialysis) [Automated mess age] The system [employer] generated this result transmitted ref erence range: >=60 mL/min/1.73 m2. The reference range was not used to int erpret this result as normal/abnormal . POC Clean Dev Yes (test code = 6672) Performing Lab [facility] [address] [place] [facility] (test code = [facility] [address]) Clinical Lab, [address] [place], [place] [address]; Precision Assembler: MD MD Nitin LaoProthrombin Time with [id number] 20:26:20 Test Item Value Reference Range Interpretation Comments PT (test code = 13.9 See_Comment Repeated and 5902-2) verified.Chuy vann Performed at[facility] Lab Lean Consultant [address] [facility] [address] [Automat ed message] The system which generated this result transmitted reference range : 11.5 - 13.9 second(s). The reference range was not used to interpret this result as normal/abnormal . INR (test code = 1.15 0.90-1.10 H Repeated an d 6301-6) verified.Chuy vann Performed at[facility] Lab Lean Consultant [address] [facility], [address] [address] MARIAM (test code = MARIAM) Schedule bloodwork according to IR evaluation/proce dureThis lab cannot be scheduled at the following locations due to collection/procc essing restrictions: [facility] and [facility]. Lab Interpretation Abnormal (test code = 33668-0) MD TaverasPotassium [id number] 19:27:41 Test Item Value Reference Range Interpretation Comments Potassium Lvl (test 5.0 See_Comment [Automa fernandez message] The code = 6854) system which ge nerated this result tra nsmitted reference range : 3.5 - 5.1 mEq/L. The reference range was not u sed to interpret this result as normal/abnormal . MD TaverasPhosphorus [id number] 18:02:12 Test Item Value Reference Range Interpretation Comments Phosphorus (test code 3.3 mg/dL 2.5-4.5 Testin g Performed at = 6817) [facility] Lab Ambulat ory Care Bldg, [address] [facility], [address], [place] [address] MD TaverasBlood Culture - Port a [id number] 00:10:14 Test Item Value Reference Range Interpretation Comments Final Report (test No growth code = 8488) Path Review - Immunity and antibiotic Bottle/Isolator use may render culture (test code = 8499) negative. Ongoing infection requires repeat culture.The results have been reviewed and electronically signed by Pathologist:MOE DALTON MD #[id number] MD TaverasPartial Thromboplastin [id number] 09:51:39 Test Item Value Reference Range Interpretation Comments aPTT (test code = 30.4 See_Comment [Automate d message] The 6773) system which ge nerated this result transmit fernandez reference range : 24.7 - 36.8 second(s). The reference range was not used to interpr et this result as arleen l/abnormal. MD TaverasUrine [id number] 19:26:58 Test Item Value Reference Range Interpretation Comments Final Report (test code <10,000 cfu/ml Gram A = 8488) Negative Rods Path Review - Urine The results have been A (test code = 8483) reviewed and electronically signed by Pathologist:MOE DALTON MD #[id number] MARIAM (test code = MARIAM) Please label specimen with source. Thanks! Lab Interpretation Abnormal (test code = 79125-9) MD TaverasVancomycin Trough Please obtain vancomycin trough level, 30 minutes prior to the 3rd dose on 08/22/20. Vancomycin trough due: 193. Vancomycin dose due: 1999. Please page nocturnal IF vancomycin trough level > 20 for new orders. Thanks.2020-08-23 01:35:21 Test Item Value Reference Range Interpretation Comments Vanco Trough 15.2 See_Comment Toxic Trough Le jazmyn: (test code = >20 mcg/mL 8008) [Automated mess age] The system [employer] generated this result transmit fernandez reference range : 5.0 - 20.0 mcg/mL. The reference range was not used to interpret this result as normal/abnormal . Vanco Tr Dose see note Level, date, a nd Time (test code time of prev ious = 8007) dose is not available for t his sample. The carlos e reported is the sample collecti on date. Vanco Tr Dose 08/22/2020 Date (test code = 8006) MARIAM (test code Please obtain = MARIAM) vancomycin trough level, 30 minutes prior to the 3rd dose on 08/22/20. Vancomycin trough due: 1930. Vancomycin dose due: 1999. Please page nocturnal IF vancomycin trough level > 20 for new orders. Thanks. MD TaverasUrinalysis with [id number] 19:12:13 Test Item Value Reference Interpretation Comments Range UA WBC (test code = 9 See_Comment H [Automa fernandez 7904) message] The system which generated this result transmitted reference range : 0 - 2 /HPF. The reference range was not used to interpret this result as normal/abnormal . UA RBC (test code = 1 See_Comment [Automa fernandez 7891) message] The system which generated this result transmitted reference range : 0 - 2 /HPF. The reference range was not used to interpret this result as normal/abnormal . UA Mucous (test code NOT SEEN Not Seen-Trace = 7887) /HPF UA Bacteria (test OCC NOT SEEN /HPF code = 7870) UA Squam Epi (test OCC None-Occasiona code = 7896) l /HPF UA Renal Epi (test <1 See_Comment H [Automat ed code = 7893) message] The system which generated this result transmitted reference range : <=0 /HPF. The reference range was not used to interpret this result as normal/abnormal . MARIAM (test code = Some reporting MARIAM) parameters within the Urinalysis test have changed due to the implementation of new instrumentation in the [facility], allowing greater sensitivity of measurement. Urinalysis results reported by the [facility] using existing instrumentation, as well as Urinalysis testing performed manually or by backup methodology at the [facility] will remain relatively unchanged. New reporting parameters and units will now be reported for all campuses. Lab Interpretation Abnormal (test code = 17394-4) MD TaverasUrinalysis w/Microscopic if [id number] 19:07:20 Test Item Value Reference Range Interpretation Comments UA Color (test code = Yellow Straw-Yellow 7877) UA Appear (test code = Clear Clear 7868) UA Glucose (test code = NEG NEG mg/dL 7881) UA Bili (test code = 7871) NEG NEG UA Ketones (test code = Trace NEG mg/dL A 7884) UA Spec Grav (test code = 1.011 1.003-1.035 7894) UA Blood (test code = NEG NEG 7872) UA pH (test code = 7909) 6.0 5.0-9.0 UA Protein (test code = 30 mg/dL NEG A 7890) UA Urobilinogen (test code NEG NEG = 7903) UA Nitrite (test code = NEG NEG 7888) UA Leuk Est (test code = Small NEG A 7886) MARIAM (test code = MARIAM) Please label specimen with source. Thanks! Lab Interpretation (test Abnormal code = 77652-3) MD TaverasTMP Interpretation Antibody Screen [id number] 14:58:28 Test Item Value Reference Range Interpretation Comments TMP Auto Neg At the present ABSC Interp time, patient (test code = plasma shows no ____PERRI KATZ 7535) evidence of RBC LUCAS FERNANDEZ MD alloantibodies. - [id number] fernandez by: PERRI MATHUR MD - [id number] Date/Time: 08.06 9:58 AM CDT Transcribed Carlos e/Time: 08.22.2020 9:58 AM CDTElectronical ly Signed By: PERRI MATHUR MD - [id number] on 9:58 AM C MD TaverasAntibody [id number] 03:05:18 Test Item Value Reference Range Interpretation Comments ABSC. (test code = 890-4) Negative ABSC MD [id number] 03:05:17 Test Item Value Reference Range Interpretation Comments ABORh. (test code = 882-1) O NEG MD TaverasClot Expiration [id number] 03:05:12 Test Item Value Reference Range Interpretation Comments T & S Expiration (test code = 08/24/2020 5318) MD TaverasRespiratory Viral Panel + COVID-19, Nasopharyngeal [id number] 03:01:14 Test Item Value Reference Range Interpretation Comments Adenovirus (test code = Not Detected Not Detected 4522) Coronavirus 229E (test Not Detected Not Detected code = 5349) Coronavirus HKU1 (test Not Detected Not Detected code = 5350) Coronavirus NL63 (test Not Detected Not Detected code = 5351) Coronavirus OC43 (test Not Detected Not Detected code = 5352) COVID19 (SARS-CoV-2) Not Detected Not Detected (test code = 63849-0) Human Metapneumovirus Not Detected Not Detected (test code = 6401) Human Not Detected Not Detected Rhinovirus/Enterovirus (test code = 7212) Influenza A (test code Not Detected Not Detected = 5618) Influenza A H1 (test Not Detected Not Detected code = 5619) Influenza A H1 2009 Not Detected Not Detected (test code = 5620) Influenza A H3 (test Not Detected Not Detected code = 5621) Influenza B (test code Not Detected Not Detected = 5622) Parainfluenza 1 (test Not Detected Not Detected code = 6779) Parainfluenza 2 (test Not Detected Not Detected code = 6780) Parainfluenza 3 (test Not Detected Not Detected code = 6781) Parainfluenza 4 (test Not Detected Not Detected code = 6782) Respiratory Syncytial Not Detected Not Detected Virus (test code = 7157) Bordetella Not Detected Not Detected Parapertussis (test code = 67224) Bordetella pertussis Not Detected Not Detected (test code = 4854) Chlamydiophila Not Detected Not Detected pneumoniae (test code = 5139) Mycoplasma pneumoniae Not Detected Not Detected (test code = 6203) MARIAM (test code = MARIAM) The BioFire RP2.1 is a real-time, nested multiplexed polymerase chain reaction test designed to simultaneously identify nucleic acids from 22 different viruses and bacteria associated with respiratory tract infection, including SARS-CoV-2, from a single nasopharyngeal swab (MORT[employer] WORKER) specimen. Specifically, the SARS-CoV-2 primers contained in the BioFire RP2.1 are designed to detect RNA from the SARS-CoV-2 in nasopharyngeal swabs in transport media from patients who are suspected of COVID-19 by their healthcare provider. Results must be interpreted within the context of all relevant clinical and laboratory findings and should not form the sole basis for a diagnosis or treatment decision. This assay has been approved by the FDA for use only under Emergency Use Authorization (EUA) in laboratories that have been CLIA-certified to perform moderate-complexity and high-complexity tests. [facility], CLIA Accreditation #[id number] and CAP Accreditation #[id number], verified the performance characteristics of this assay. [facility] performs the assay using the [employer] System. Internal controls are used to monitor all stages of the test process. [facility] [id number] 01:36:07 Test Item Value Reference Range Interpretation Comments V Lactate (test code = 2519-7) 0.6 mmol/L 0.5-1.6 MD TaverasGlucose, [id number] 00:14:42 Test Item Value Reference Range Interpretation Comments Glucose Random (test 109 mg/dL 70-199 Effecti ve 10/02/15, the code = 9360) glucose referen ce intervals have been updated based o n [place] [employer] [place] [employer] [place] (Standards of M edical Care in Diabete s 2016. Diabetes Care 2 016; 39: S13-S22).Fastin g blood glucose:Normal: 70 99 mg/dLImpaire d fasting glucose (increa sed risk for diabetes or pre-diabetes): 100 125 mg/dLDiabet es mellitus: >/=1 26 mg/dL Random blood glucose:Normal: 70 199 mg/dLNote: Random glucose >100 mg /dL is associated with increased risk for diabetes MD [id number] 00:14:37 Test Item Value Reference Range Interpretation Comments LDH (test code = 163 U/L 135-225 Results gre ater than 1651 3211) U/L may not be reliable due to matrix effec t with extended diluti on as it exceeds the man ufacturer s recommended l imit. Caution should be exercised when interpreti ng such values and done in conjunction wit h clinical context. MD TaverasAnion [id number] 00:14:32 Test Item Value Reference Range Interpretation Comments Anion Gap (test code 10 See_Comment [Autom ated message] The = 8469) system which ge nerated this result transmit fernandze reference range : 4 - 14 mEq/L. The refe rence range was not used to interpret this result as normal/abnormal . MD TaverasChloride [id number] 00:14:29 Test Item Value Reference Range Interpretation Comments Chloride (test code = 101 See_Comment [Auto mated message] The 1348) system which ge nerated this result tra nsmitted reference range : 98 - 107 mEq/L. The refe rence range was not u sed to interpret this result as normal/abnormal . MD TaverasCarbon Dioxide [id number] 00:14:28 Test Item Value Reference Range Interpretation Comments CO2 (test code = 22 See_Comment [Automated message] The 7110) system which ge nerated this result transmit fernandez reference range : 22 - 29 mEq/L. The refe rence range was not used to interpret this result as normal/abnormal . MD TaverasSodium [id number] 00:14:26 Test Item Value Reference Range Interpretation Comments Sodium Lvl (test code = 133 See_Comment L [Au tomated message] 7355) The system [employer] generated this result transmitted ref erence range: 136 - 14 5 mEq/L. The refe rence range was not u sed to interpret this result as normal/abnor mal. Lab Interpretation (test Abnormal code = 15560-7) MD Tave[id number] 00:14:25 Test Item Value Reference Range Interpretation Comments Procalcitonin (test 0.31 ng/mL See_Comment H Procalci tonin > 2.00 code = 9379) ng/mL: Procalcitonin l evels above 2.00 ng/m L are highly suggesti ve of a high risk for systematic bact erial infection/ gladys re sepsis and/or s eptic shock. Procalci tonin < 0.50 ng/mL: Procalcitonin l evels below 0.50 ng/m L are at low risk for progression to severe sepsis and/ or septic shock. Procalci tonin (ProCT) between 0.15 and 2.0 ng/mL d o not exclude infecti on, because localiz ed infections (wit hout systemic signs) may be associated w ith such low levels . Results greater than 400 ng/mL may n ot be reliable due to the matrix effect w ith extended diluti on as it exceeds the call center nurse's recommended [place] it. Caution should be exercised when interpreting mojica ch values and done in conjunction wit h clinical contex t. [Automated mess age] The system [employer] generated this result transmitted ref erence range: <=0.08. The reference range was not used to int erpret this result as normal/abnormal . Lab Interpretation Abnormal (test code = 65244-1) MD Izaguirre [id number] 15:08:00Surgical Pathology Report Case: [id number] Authorizing Provider: Reece Joseph MD Collected: 11/03/2019 09:23 PM Ordering Location: [facility] Received: 11/06/2019 08:18 AM SERVICES Pathologist: Doyle Frost MD Specimen: Bladder Tumor, TRIGONE AND BLADDER NECK TUMOR URINARY BLADDER, TRIGONE AND NECK TUMOR, TURBT: - UROTHELIAL CARCINOMA, HIGH GRADE (WHO GRADE 3), INVASIVE INTO MUSCULARIS PROPRIA - POSITIVE FOR LYMPHOVASCULAR SPACE INVASION Signing Pathologist Direct Phone Line: [phone] signed by Doyle Frost MD on 11/07/2019 at 3:08 PMUrothelial carcinoma in situ is also identified. One prostatic chip is noted with benign glands.[id number] hematuriaBladder, trigone and neckA. Received in formalin in a container labeled with the patient's name, medical record number and "bladder tumor" is an aggrigate of multiple, baird-pink, irregular nodular tissues admixed with blood (4 x 4 x 1.5 cm) which are submitted in toto in A1-A 11.KEYA Durán PA (ASCP)PerformedFL, FLUORO, NON-SPECIFIC, UP TO 1 [id number] 07:45:55Reason for exam:->cysto with stent placementFluoroscopic unit utilized for a procedure performed in the OR. No interpretation was requested. Refer to the operative report for findings. Refer to PACS for patient radiation dose information.BASIC METABOLIC PANEL 2019-11-06 06:14:00 Test Item Value Reference Range Interpretation Comments SODIUM (BEAKER) 141 meq/L 136-145 (test code = 381) POTASSIUM (BEAKER) 4.1 meq/L 3.5-5.1 (test code = 379) CHLORIDE (BEAKER) 112 meq/L 98-107 H (test code = 382) CO2 (BEAKER) (test 22 meq/L 22-29 code = 355) BLOOD UREA NITROGEN 22 mg/dL 7-21 H (BEAKER) (test code = 354) CREATININE (BEAKER) 1.28 mg/dL 0.57-1.25 H (test code = 358) GLUCOSE RANDOM 102 mg/dL 70-105 (BEAKER) (test code = 652) CALCIUM (BEAKER) 8.1 mg/dL 8.4-10.2 L (test code = 697) EGFR (BEAKER) (test 55 mL/min/1.73 ESTIMA FERNANDEZ GFR IS code = 1092) sq m NOT ACCURATE CREATININE CLEARANCE IN PREDICTING GLOMERULAR FILTRATION RATE . ESTIMATED GFR I S NOT APPLICABLE FOR DIALYSIS PATIEN TS. [employer]k Screen Processor ID - PIAYA LCBC (HEMOGRAM ONLY)2019-11-06 05:41:00 Test Item Value Reference Range Interpretation Comments WHITE BLOOD CELL COUNT (BEAKER) 10.7 K/ L 3.5-10.5 H (test code = 775) RED BLOOD CELL COUNT (BEAKER) 3.15 M/ L 4.63-6.08 L (test code = 761) HEMOGLOBIN (BEAKER) (test code = 10.0 GM/DL 13.7-17.5 L 410) HEMATOCRIT (BEAKER) (test code = 30.7 % 40.1-51.0 L 411) MEAN CORPUSCULAR VOLUME (BEAKER) 97.5 fL 79.0-92.2 H (test code = 753) MEAN CORPUSCULAR HEMOGLOBIN 31.7 pg 25.7-32.2 (BEAKER) (test code = 751) MEAN CORPUSCULAR HEMOGLOBIN CONC 32.6 GM/DL 32.3-36.5 (BEAKER) (test code = 752) RED CELL DISTRIBUTION WIDTH 13.5 % 11.6-14.4 (BEAKER) (test code = 412) PLATELET COUNT (BEAKER) (test 157 K/CU MM 150-450 code = 756) MEAN PLATELET VOLUME (BEAKER) 12.1 fL 9.4-12.4 (test code = 754) NUCLEATED RED BLOOD CELLS 0 /100 WBC 0-0 (BEAKER) (test code = 413) BASIC METABOLIC [id number] 14:05:00 Test Item Value Reference Range Interpretation Comments SODIUM (BEAKER) 141 meq/L 136-145 (test code = 381) POTASSIUM (BEAKER) 4.1 meq/L 3.5-5.1 (test code = 379) CHLORIDE (BEAKER) 111 meq/L 98-107 H (test code = 382) CO2 (BEAKER) (test 24 meq/L 22-29 code = 355) BLOOD UREA NITROGEN 23 mg/dL 7-21 H (BEAKER) (test code = 354) CREATININE (BEAKER) 1.42 mg/dL 0.57-1.25 H (test code = 358) GLUCOSE RANDOM 140 mg/dL 70-105 H (BEAKER) (test code = 652) CALCIUM (BEAKER) 8.0 mg/dL 8.4-10.2 L (test code = 697) EGFR (BEAKER) (test 49 mL/min/1.73 ESTIMA FERNANDEZ GFR IS code = 1092) sq m NOT ACCURATE CREATININE CLEARANCE IN PREDICTING GLOMERULAR FILTRATION RATE . ESTIMATED GFR I S NOT APPLICABLE FOR DIALYSIS PATIEN TS. Silk Screen Processor ID - TONYA CCBC W/PLT COUNT & AUTO [id number] 13:48:00 Test Item Value Reference Range Interpretation Comments WHITE BLOOD CELL COUNT (BEAKER) 11.6 K/ L 3.5-10.5 H (test code = 775) RED BLOOD CELL COUNT (BEAKER) 3.17 M/ L 4.63-6.08 L (test code = 761) HEMOGLOBIN (BEAKER) (test code = 10.0 GM/DL 13.7-17.5 L 410) HEMATOCRIT (BEAKER) (test code = 31.0 % 40.1-51.0 L 411) MEAN CORPUSCULAR VOLUME (BEAKER) 97.8 fL 79.0-92.2 H (test code = 753) MEAN CORPUSCULAR HEMOGLOBIN 31.5 pg 25.7-32.2 (BEAKER) (test code = 751) MEAN CORPUSCULAR HEMOGLOBIN CONC 32.3 GM/DL 32.3-36.5 (BEAKER) (test code = 752) RED CELL DISTRIBUTION WIDTH 13.4 % 11.6-14.4 (BEAKER) (test code = 412) PLATELET COUNT (BEAKER) (test 162 K/CU MM 150-450 code = 756) MEAN PLATELET VOLUME (BEAKER) 11.9 fL 9.4-12.4 (test code = 754) NUCLEATED RED BLOOD CELLS 0 /100 WBC 0-0 (BEAKER) (test code = 413) NEUTROPHILS RELATIVE PERCENT 56 % (BEAKER) (test code = 429) LYMPHOCYTES RELATIVE PERCENT 34 % (BEAKER) (test code = 430) MONOCYTES RELATIVE PERCENT 7 % (BEAKER) (test code = 431) EOSINOPHILS RELATIVE PERCENT 2 % (BEAKER) (test code = 432) BASOPHILS RELATIVE PERCENT 0 % (BEAKER) (test code = 437) NEUTROPHILS ABSOLUTE COUNT 6.44 K/ L 1.78-5.38 H (BEAKER) (test code = 670) LYMPHOCYTES ABSOLUTE COUNT 3.91 K/ L 1.32-3.57 H (BEAKER) (test code = 414) MONOCYTES ABSOLUTE COUNT (BEAKER) 0.84 K/ L 0.30-0.82 H (test code = 415) EOSINOPHILS ABSOLUTE COUNT 0.27 K/ L 0.04-0.54 (BEAKER) (test code = 416) BASOPHILS ABSOLUTE COUNT (BEAKER) 0.03 K/ L 0.01-0.08 (test code = 417) IMMATURE GRANULOCYTES-RELATIVE 1 % 0-1 PERCENT (BEAKER) (test code = 2801) CBC W/PLT COUNT & AUTO [id number] 07:39:00 Test Item Value Reference Range Interpretation Comments WHITE BLOOD CELL COUNT (BEAKER) 13.7 K/ L 3.5-10.5 H (test code = 775) RED BLOOD CELL COUNT (BEAKER) 3.28 M/ L 4.63-6.08 L (test code = 761) HEMOGLOBIN (BEAKER) (test code = 10.6 GM/DL 13.7-17.5 L 410) HEMATOCRIT (BEAKER) (test code = 32.9 % 40.1-51.0 L 411) MEAN CORPUSCULAR VOLUME (BEAKER) 100.3 fL 79.0-92.2 H (test code = 753) MEAN CORPUSCULAR HEMOGLOBIN 32.3 pg 25.7-32.2 H (BEAKER) (test code = 751) MEAN CORPUSCULAR HEMOGLOBIN CONC 32.2 GM/DL 32.3-36.5 L (BEAKER) (test code = 752) RED CELL DISTRIBUTION WIDTH 13.2 % 11.6-14.4 (BEAKER) (test code = 412) PLATELET COUNT (BEAKER) (test 132 K/CU MM 150-450 L code = 756) MEAN PLATELET VOLUME (BEAKER) 12.7 fL 9.4-12.4 H (test code = 754) NUCLEATED RED BLOOD CELLS 0 /100 WBC 0-0 (BEAKER) (test code = 413) NEUTROPHILS RELATIVE PERCENT 73 % (BEAKER) (test code = 429) LYMPHOCYTES RELATIVE PERCENT 24 % (BEAKER) (test code = 430) MONOCYTES RELATIVE PERCENT 3 % (BEAKER) (test code = 431) EOSINOPHILS RELATIVE PERCENT 0 % (BEAKER) (test code = 432) BASOPHILS RELATIVE PERCENT 0 % (BEAKER) (test code = 437) NEUTROPHILS ABSOLUTE COUNT 9.99 K/ L 1.78-5.38 H (BEAKER) (test code = 670) LYMPHOCYTES ABSOLUTE COUNT 3.24 K/ L 1.32-3.57 (BEAKER) (test code = 414) MONOCYTES ABSOLUTE COUNT (BEAKER) 0.38 K/ L 0.30-0.82 (test code = 415) EOSINOPHILS ABSOLUTE COUNT 0.01 K/ L 0.04-0.54 L (BEAKER) (test code = 416) BASOPHILS ABSOLUTE COUNT (BEAKER) 0.01 K/ L 0.01-0.08 (test code = 417) IMMATURE GRANULOCYTES-RELATIVE 0 % 0-1 PERCENT (BEAKER) (test code = 2801) BASIC METABOLIC [id number] 07:13:00 Test Item Value Reference Range Interpretation Comments SODIUM (BEAKER) 141 meq/L 136-145 (test code = 381) POTASSIUM (BEAKER) 4.7 meq/L 3.5-5.1 (test code = 379) CHLORIDE (BEAKER) 112 meq/L 98-107 H (test code = 382) CO2 (BEAKER) (test 16 meq/L 22-29 L code = 355) BLOOD UREA NITROGEN 28 mg/dL 7-21 H (BEAKER) (test code = 354) CREATININE (BEAKER) 1.96 mg/dL 0.57-1.25 H (test code = 358) GLUCOSE RANDOM 116 mg/dL 70-105 H (BEAKER) (test code = 652) CALCIUM (BEAKER) 7.8 mg/dL 8.4-10.2 L (test code = 697) EGFR (BEAKER) (test 34 mL/min/1.73 ESTIMA FERNANDEZ GFR IS code = 1092) sq m NOT ACCURATE CREATININE CLEARANCE IN PREDICTING GLOMERULAR FILTRATION RATE . ESTIMATED GFR I S NOT APPLICABLE FOR DIALYSIS PATIEN TS. Silk Screen Processor ID - PIAYA LBASIC METABOLIC [id number] 05:42:00 Test Item Value Reference Range Interpretation Comments SODIUM (BEAKER) 138 meq/L 136-145 (test code = 381) POTASSIUM (BEAKER) 4.1 meq/L 3.5-5.1 (test code = 379) CHLORIDE (BEAKER) 108 meq/L 98-107 H (test code = 382) CO2 (BEAKER) (test 20 meq/L 22-29 L code = 355) BLOOD UREA NITROGEN 34 mg/dL 7-21 H (BEAKER) (test code = 354) CREATININE (BEAKER) 2.24 mg/dL 0.57-1.25 H (test code = 358) GLUCOSE RANDOM 94 mg/dL 70-105 (BEAKER) (test code = 652) CALCIUM (BEAKER) 7.9 mg/dL 8.4-10.2 L (test code = 697) EGFR (BEAKER) (test 29 mL/min/1.73 ESTIMA FERNANDEZ GFR IS code = 1092) sq m NOT ACCURATE CREATININE CLEARANCE IN PREDICTING GLOMERULAR FILTRATION RATE . ESTIMATED GFR I S NOT APPLICABLE FOR DIALYSIS PATIEN TS. Silk Screen Processor ID - JUAN MCBC W/PLT COUNT & AUTO [id number] 05:07:00 Test Item Value Reference Range Interpretation Comments WHITE BLOOD CELL COUNT (BEAKER) 13.5 K/ L 3.5-10.5 H (test code = 775) RED BLOOD CELL COUNT (BEAKER) 3.20 M/ L 4.63-6.08 L (test code = 761) HEMOGLOBIN (BEAKER) (test code = 10.1 GM/DL 13.7-17.5 L 410) HEMATOCRIT (BEAKER) (test code = 31.0 % 40.1-51.0 L 411) MEAN CORPUSCULAR VOLUME (BEAKER) 96.9 fL 79.0-92.2 H (test code = 753) MEAN CORPUSCULAR HEMOGLOBIN 31.6 pg 25.7-32.2 (BEAKER) (test code = 751) MEAN CORPUSCULAR HEMOGLOBIN CONC 32.6 GM/DL 32.3-36.5 (BEAKER) (test code = 752) RED CELL DISTRIBUTION WIDTH 13.2 % 11.6-14.4 (BEAKER) (test code = 412) PLATELET COUNT (BEAKER) (test 153 K/CU MM 150-450 code = 756) MEAN PLATELET VOLUME (BEAKER) 12.2 fL 9.4-12.4 (test code = 754) NUCLEATED RED BLOOD CELLS 0 /100 WBC 0-0 (BEAKER) (test code = 413) NEUTROPHILS RELATIVE PERCENT 59 % (BEAKER) (test code = 429) LYMPHOCYTES RELATIVE PERCENT 30 % (BEAKER) (test code = 430) MONOCYTES RELATIVE PERCENT 8 % (BEAKER) (test code = 431) EOSINOPHILS RELATIVE PERCENT 2 % (BEAKER) (test code = 432) BASOPHILS RELATIVE PERCENT 0 % (BEAKER) (test code = 437) NEUTROPHILS ABSOLUTE COUNT 7.99 K/ L 1.78-5.38 H (BEAKER) (test code = 670) LYMPHOCYTES ABSOLUTE COUNT 4.01 K/ L 1.32-3.57 H (BEAKER) (test code = 414) MONOCYTES ABSOLUTE COUNT (BEAKER) 1.13 K/ L 0.30-0.82 H (test code = 415) EOSINOPHILS ABSOLUTE COUNT 0.27 K/ L 0.04-0.54 (BEAKER) (test code = 416) BASOPHILS ABSOLUTE COUNT (BEAKER) 0.03 K/ L 0.01-0.08 (test code = 417) IMMATURE GRANULOCYTES-RELATIVE 0 % 0-1 PERCENT (BEAKER) (test code = 2801) CT, [id number] 01:57:00Unlisted Reason for Exam - Click Yes and Enter Reason Below->NoFINAL REPORT EXAM: CT of the abdomen and pelvis, without contrast CLINICAL HISTORY: Hematuria, unknown cause TECHNIQUE: CT of the abdomen and pelvis was performed without the intravenous administration of contrast. This exam was performed according to our departmental dose optimization program which includes automated exposure control, adjustment of the mA and/or kV accordingto patient's size and/or use of iterative reconstructive technique. COMPARISON: None FINDINGS: Please note study is limited due to lack of intravenous contrast. LOWER CHEST: Bibasilar dependent atelectasis. Emphysema with bullous changes in the right lung base.LIVER: Within normal limits.BILE DUCTS: Within normal limits.GALL BLADDER: Within normal limits.PANCREAS: Within normal limits.SPLEEN: Multiple calcified granulomas.ADRENALS: Nonspecific bilateral adrenal gland thickening.KIDNEYS/URETERS: Mild to moderate bilateral hydroureteronephrosis, likely due to thickened urinary bladder. URINARY BLADDER: Nearly collapsed due to Lozada catheter placement. Diffuse mural thickening of the urinary bladder. Small hyperdense contents within the dependent portion of the urinary bladder, likely hematomas. Small foci of air in the urinary bladder likely due to Lozada instrumentation.REPRODUCTIVE ORGANS: Within normal limits. BOWEL/MESENTERY:. Scattered colonic diverticula without acute diverticulitis. Small hiatal hernia. No bowel obstruction or abnormal wall thickening. Normal appendix.PERITONEUM/RETROPERITONEUM: Small pelvic free fluid, mildly hyperdense and may be hemorrhagic. No free intraperitoneal air or fluid collection. VESSELS: Calcific atherosclerosis. No abdominal aortic aneurysm. LYMPH NODES: No abdominal or pelvic lymphadenopathy.SOFT TISSUES: Within normal limits.BONES: Degenerative changesof the visualized spine. Grade 1 retrolisthesis at L2/L3. Left L5 pars interarticularis defect. IMPRESSION:Small urinary bladder hematoma. Diffuse mural thickening of the urinary bladder, which may be reactive or related to cystitis or malignancy. Urologic evaluation is recommended.Mild to moderate bilateral hydroureteronephrosis, likely due to the thickened urinary bladder.Small pelvic free fluid, mildly hyperdense and may be hemorrhagic. Signed: Lee Perez MDReport Verified Date/Time: 11/03/2019 01:57:16 -COV2/RT-PCR ([facility])2019-11-02 11:07:00 Test Item Value Reference Range Interpretation Comments SARS-COV2/RT-PCR (test Negative Not Detected, Negative, code = 4688626) See external report for linked test SARS-COV-2 PERFORMING LAB [facility] (test code = 8096734) Negative result for this test determines that SARS-CoV-2 RNA was not present in the specimen above the Limit of Detection (LOD). However, Negative results do not preclude SARS-CoV-2 infection and should not be used as the sole basis for treatment or patient management decisions. Negative results mustbe combined with clinical observations, patient history, and epidemiological information. A false negative result may occur if a specimen is improperly collected, transported or handled. A false negative result should be considered if patient's recent exposures or clinical presentation indicate that COVID-19 (SARS-CoV-2) is likely and diagnostic tests for other causes of illness are negative. Re-testing should be considered in cases of suspected false negatives.The limit of detection for this assay is 800 copies/mL.This SARS CoV-2 test is a real-time RT-PCR test intended for the qualitative detection of nucleic acid from SARS-CoV-2 in a nasopharyngeal swab specimen collected from individuals susp ected of COVID-19 by their healthcare provider.This test has not been Food and Drug Administration (FDA) cleared or approved. This is a modified version of an approved Emergency Use Authorization (EUA) and is in the process of review by the FDA. Once authorized by the FDA, the issued EUA will be effective until the declaration that circumstances exist justifying the authorization of the emergency use of in vitro diagnostic tests for detection and/or diagnosis of COVID-19 is terminated under Section 564(b)(2) of the Act or the EUA is revoked under Section 564(g) of the Act.Fact Sheet for Healthcare Providers:https://www.[employer]/sites/default/files/product/documents/Fact_Shee z_EO_Jpdenzmnq_Sqzh_YTDZ-ItC-5.pdfFact Sheet for Healthcare Patients:https://www.[employer]/sites/default/files/product/ documents/Mhdl_Ukrrl_Awklvkkh_Mduo_LWCF-SfP-1.pdfPerforming Laboratory:[facility], [place] [address]VUOUX METABOLIC PANEL 2019-11-02 07:34:00 Test Item Value Reference Range Interpretation Comments SODIUM (BEAKER) 140 meq/L 136-145 (test code = 381) POTASSIUM (BEAKER) 4.5 meq/L 3.5-5.1 (test code = 379) CHLORIDE (BEAKER) 107 meq/L 98-107 (test code = 382) CO2 (BEAKER) (test 21 meq/L 22-29 L code = 355) BLOOD UREA NITROGEN 30 mg/dL 7-21 H (BEAKER) (test code = 354) CREATININE (BEAKER) 2.59 mg/dL 0.57-1.25 H (test code = 358) GLUCOSE RANDOM 73 mg/dL 70-105 (BEAKER) (test code = 652) CALCIUM (BEAKER) 8.5 mg/dL 8.4-10.2 (test code = 697) EGFR (BEAKER) (test 25 mL/min/1.73 ESTIMA FERNANDEZ GFR IS code = 1092) sq m NOT ACCURATE CREATININE CLEARANCE IN PREDICTING GLOMERULAR FILTRATION RATE . ESTIMATED GFR I S NOT APPLICABLE FOR DIALYSIS PATIEN TS. Silk Screen Processor ID - [id number] W/PLT COUNT & AUTO [id number] 07:22:00 Test Item Value Reference Range Interpretation Comments WHITE BLOOD CELL COUNT (BEAKER) 13.4 K/ L 3.5-10.5 H (test code = 775) RED BLOOD CELL COUNT (BEAKER) 3.62 M/ L 4.63-6.08 L (test code = 761) HEMOGLOBIN (BEAKER) (test code = 11.3 GM/DL 13.7-17.5 L 410) HEMATOCRIT (BEAKER) (test code = 35.8 % 40.1-51.0 L 411) MEAN CORPUSCULAR VOLUME (BEAKER) 98.9 fL 79.0-92.2 H (test code = 753) MEAN CORPUSCULAR HEMOGLOBIN 31.2 pg 25.7-32.2 (BEAKER) (test code = 751) MEAN CORPUSCULAR HEMOGLOBIN CONC 31.6 GM/DL 32.3-36.5 L (BEAKER) (test code = 752) RED CELL DISTRIBUTION WIDTH 13.2 % 11.6-14.4 (BEAKER) (test code = 412) PLATELET COUNT (BEAKER) (test 164 K/CU MM 150-450 code = 756) MEAN PLATELET VOLUME (BEAKER) 11.7 fL 9.4-12.4 (test code = 754) NUCLEATED RED BLOOD CELLS 0 /100 WBC 0-0 (BEAKER) (test code = 413) NEUTROPHILS RELATIVE PERCENT 58 % (BEAKER) (test code = 429) LYMPHOCYTES RELATIVE PERCENT 34 % (BEAKER) (test code = 430) MONOCYTES RELATIVE PERCENT 8 % (BEAKER) (test code = 431) EOSINOPHILS RELATIVE PERCENT 1 % (BEAKER) (test code = 432) BASOPHILS RELATIVE PERCENT 0 % (BEAKER) (test code = 437) NEUTROPHILS ABSOLUTE COUNT 7.71 K/ L 1.78-5.38 H (BEAKER) (test code = 670) LYMPHOCYTES ABSOLUTE COUNT 4.54 K/ L 1.32-3.57 H (BEAKER) (test code = 414) MONOCYTES ABSOLUTE COUNT (BEAKER) 1.00 K/ L 0.30-0.82 H (test code = 415) EOSINOPHILS ABSOLUTE COUNT 0.08 K/ L 0.04-0.54 (BEAKER) (test code = 416) BASOPHILS ABSOLUTE COUNT (BEAKER) 0.03 K/ L 0.01-0.08 (test code = 417) IMMATURE GRANULOCYTES-RELATIVE 0 % 0-1 PERCENT (BEAKER) (test code = 2801) BASIC METABOLIC [id number] 00:07:00 Test Item Value Reference Range Interpretation Comments SODIUM (BEAKER) 140 meq/L 136-145 (test code = 381) POTASSIUM (BEAKER) 4.0 meq/L 3.5-5.1 (test code = 379) CHLORIDE (BEAKER) 108 meq/L 98-107 H (test code = 382) CO2 (BEAKER) (test 19 meq/L 22-29 L code = 355) BLOOD UREA NITROGEN 29 mg/dL 7-21 H (BEAKER) (test code = 354) CREATININE (BEAKER) 2.48 mg/dL 0.57-1.25 H (test code = 358) GLUCOSE RANDOM 73 mg/dL 70-105 (BEAKER) (test code = 652) CALCIUM (BEAKER) 8.6 mg/dL 8.4-10.2 (test code = 697) EGFR (BEAKER) (test 26 mL/min/1.73 ESTIMA FERNANDEZ GFR IS code = 1092) sq m NOT ACCURATE CREATININE CLEARANCE IN PREDICTING GLOMERULAR FILTRATION RATE . ESTIMATED GFR I S NOT APPLICABLE FOR DIALYSIS PATIEN TS. Silk Screen Processor ID - SANTY [id number] 23:55:00 Test Item Value Reference Range Interpretation Comments PROTIME (BEAKER) (test code = 14.5 seconds 11.9-14.2 H 759) INR (BEAKER) (test code = 370) 1.16 <=5.90 Effective 08/03/2018: PT Reference Range ChangeNew: 11.9-14.2 Previous: 11.7- 14.7RECOMMENDED COUMADIN/WARFARIN INR THERAPY RANGESSTANDARD DOSE: 2.0-3.0 Includes: PROPHYLAXIS for venous thrombosis, systemic embolization; TREATMENT for venous thrombosis and/or pulmonary embolus.HIGH RISK: Target INR is2.5-3.5 for patients wiht mechanical heart valves.CBC W/PLT COUNT & AUTO [id number] 23:43:00 Test Item Value Reference Range Interpretation Comments WHITE BLOOD CELL COUNT (BEAKER) 14.8 K/ L 3.5-10.5 H (test code = 775) RED BLOOD CELL COUNT (BEAKER) 3.81 M/ L 4.63-6.08 L (test code = 761) HEMOGLOBIN (BEAKER) (test code = 12.1 GM/DL 13.7-17.5 L 410) HEMATOCRIT (BEAKER) (test code = 37.1 % 40.1-51.0 L 411) MEAN CORPUSCULAR VOLUME (BEAKER) 97.4 fL 79.0-92.2 H (test code = 753) MEAN CORPUSCULAR HEMOGLOBIN 31.8 pg 25.7-32.2 (BEAKER) (test code = 751) MEAN CORPUSCULAR HEMOGLOBIN CONC 32.6 GM/DL 32.3-36.5 (BEAKER) (test code = 752) RED CELL DISTRIBUTION WIDTH 13.2 % 11.6-14.4 (BEAKER) (test code = 412) PLATELET COUNT (BEAKER) (test 169 K/CU MM 150-450 code = 756) MEAN PLATELET VOLUME (BEAKER) 11.8 fL 9.4-12.4 (test code = 754) NUCLEATED RED BLOOD CELLS 0 /100 WBC 0-0 (BEAKER) (test code = 413) NEUTROPHILS RELATIVE PERCENT 67 % (BEAKER) (test code = 429) LYMPHOCYTES RELATIVE PERCENT 25 % (BEAKER) (test code = 430) MONOCYTES RELATIVE PERCENT 7 % (BEAKER) (test code = 431) EOSINOPHILS RELATIVE PERCENT 1 % (BEAKER) (test code = 432) BASOPHILS RELATIVE PERCENT 0 % (BEAKER) (test code = 437) NEUTROPHILS ABSOLUTE COUNT 9.85 K/ L 1.78-5.38 H (BEAKER) (test code = 670) LYMPHOCYTES ABSOLUTE COUNT 3.76 K/ L 1.32-3.57 H (BEAKER) (test code = 414) MONOCYTES ABSOLUTE COUNT (BEAKER) 1.04 K/ L 0.30-0.82 H (test code = 415) EOSINOPHILS ABSOLUTE COUNT 0.09 K/ L 0.04-0.54 (BEAKER) (test code = 416) BASOPHILS ABSOLUTE COUNT (BEAKER) 0.03 K/ L 0.01-0.08 (test code = 417) IMMATURE GRANULOCYTES-RELATIVE 0 % 0-1 PERCENT (BEAKER) (test code = 2801)
[2021-06-15 03:49] LABS: SARS-COV-2 RT PCR NEGATIVE (NEGATIVE)
--- NOTE | 2021-06-15 04:20 | ER ---
Nurse's Notes [facility] Name: Mary Bullock Age: 71 yrs Sex: Male : 1950 Arrival Date: 06/15/2021 Time: 01:31 Bed 14 Private MD: Diagnosis: Other hydronephrosis;Malfunctioning Nephrostomy tube;Bladder cancer Presentation: 06/15 01:58 Chief complaint: Patient states: his nephrostomy tube was working yesterday but he woke bb up this morning with back pain and it is not draining now. Coronavirus screen: At this time, the client does not indicate any symptoms associated with coronavirus-19. Ebola Screen: No symptoms or risks identified at this time. Initial Sepsis Screen: Does the patient meet any 2 criteria? No. Patient's initial sepsis screen is negative. Does the patient have a suspected source of infection? No. Patient's initial sepsis screen is negative. Risk Assessment: Do you want to hurt yourself or someone else? Patient reports no desire to harm self or others. Onset of symptoms was June 15, 2021. 01:58 Method Of Arrival: Wheelchair 01:58 Acuity: FERNANDA 3 bb Historical: - Allergies: 01:59 PENICILLINS; bb - Home Meds: 01:59 tamsulosin 0.4 mg Oral cp24 [Active]; propranolol 40 mg Oral tab [Active]; gabapentin bb oral [Active]; Hydrocodone-Acetaminophen Oral [Active]; Remeron Oral [Active]; - PMHx: 01:59 Hypertension; overactive bladder; paraplegic; Polio; tremors; neuropathy; bb - PSHx: 01:59 Tonsillectomy; Nephrostomy tube left; right leg; bb - Immunization history:: Pfizer x 3. - Social history:: Smoking status: Patient denies any tobacco usage or history of. Screenin:04 Abuse screen: Denies threats or abuse. Nutritional screening: No deficits noted. ag7 Tuberculosis screening: No symptoms or risk factors identified. Fall Risk No fall in past 12 months (0 pts). No secondary diagnosis (0 pts). No IV (0 pts). Ambulatory Aid- None/Bed Rest/Nurse Assist (0 pts). Gait- Normal/Bed Rest/Wheelchair (0 pts) Mental Status- Oriented to own ability (0 pts). Total Patel Fall Scale indicates No Risk (0-24 pts). Assessment: 01:59 General: Appears in no apparent distress. Behavior is calm, cooperative, appropriate ag7 for age. Pain: Complains of pain in left low back Pain does not radiate. Pain currently is 8 out of 10 on a pain scale. Quality of pain is described as pressure, Pain began suddenly, Is continuous. Neuro: Level of Consciousness is awake, alert, obeys commands, Oriented to Appropriate for age. Cardiovascular: Heart tones S1 S2 present Capillary refill < 3 seconds is brisk in bilateral skin cool/dry. Respiratory: Airway is patent Trachea midline Respiratory effort is even, unlabored, Respiratory pattern is regular, symmetrical, Breath sounds are clear bilaterally. : nephrostomy tube to left lower back Urine is clear, yellow Reports pain in left flank(s), lower quadrant(s) in lower back. 02:59 Reassessment: No changes from previously documented assessment. ag7 03:59 Reassessment: No changes from previously documented assessment. Patient and/or family ag7 updated on plan of care and expected duration. Pain level reassessed. Patient is alert, oriented x 3, equal unlabored respirations, skin warm/dry/pink. 04:38 Reassessment: [facility] called for transfer; ETA of 1 hour arrival. lp1 04:47 Reassessment: Report called to [phone] Jose BRODY triage. ag7 04:53 Reassessment: Patient and/or family updated on plan of care and expected duration. Pain ag7 level reassessed. Patient is alert, oriented x 3, equal unlabored respirations, skin warm/dry/pink. Patient denies pain at this time. Patient states feeling better. Patient states symptoms have improved. 06:08 Reassessment: No changes from previously documented assessment. Patient and/or family ag7 updated on plan of care and expected duration. Pain level reassessed. Patient is alert, oriented x 3, equal unlabored respirations, skin warm/dry/pink. Patient states symptoms have improved. Vital Signs: 01:58 BP 164 / 85; Pulse 74; Resp 18 S; Temp 97.7(O); Pulse Ox 96% on R/A; Weight 72.57 kg bb (R); Height 5 ft. 9 in. (175.26 cm) (R); Pain 8/10; 03:00 BP 161 / 86; Pulse 82; Resp 18 S; Pulse Ox 100% on R/A; bb 03:43 Pain 0/10; ag7 04:00 BP 149 / 85; Pulse 80; Resp 18 S; Pulse Ox 100% on R/A; Pain 0/10; ag7 04:31 BP 142 / 89; Pulse 81; Resp 18; Pulse Ox 97% ; Pain 0/10; ag7 05:33 BP 151 / 86 RA Supine (auto/reg); Pulse 87 MON; Resp 18; Pulse Ox 97% on R/A; Pain 0/10;ag7 01:58 Body Mass Index 23.63 (72.57 kg, 175.26 cm) bb ED Course: 01:31 Patient arrived in ED. kz 01:38 Maco Suero DO is Attending Physician. ms3 01:59 Triage completed. bb 01:59 Arm band placed on Patient placed in an exam room, on a stretcher, on pulse oximetry. bb 02:04 Patient has correct armband on for positive identification. Bed in low position. Call ag7 light in reach. 02:04 No provider procedures requiring assistance completed. ag7 02:28 Inserted saline lock: 22 gauge in left wrist, using aseptic technique. Missed ag7 attempt(s): 20 gauge in right antecubital area. 02:58 CT Abd/Pelvis - Without Contrast In Process Unspecified. EDMS 05:31 Shadia Rangel, RONN is Primary Nurse. ag7 Administered Medications: 03:13 Drug: morphine 4 mg {Note: RASS 0.} Route: IVP; Site: left hand; bb 03:43 Follow up: Pain 0/10 Adult; Response: No adverse reaction; Pain is decreased ag7 Outcome: 04:20 ER care complete, transfer ordered by . ms3 06:23 Transferred by ground EMS to [facility]. ag7 06:25 Patient left the ED. ag7 Signatures: Dispatcher [employer] EDMS Cris Robles RN RN bb Roseanna Sunshine RN RN lp1 Maco Suero DO DO ms3 Crystal Taylor kz Shadia Rangel, RONN RN ag7 Corrections: (The following items were deleted from the chart) 03:13 03:13 morphine 4 mg IVP in left hand bb bb
--- NOTE | 2021-06-15 04:21 | EDPHYS ---
Physician Documentation [facility] Name: Mary Bullock Age: 71 yrs Sex: Male : 1950 Arrival Date: 06/15/2021 Time: 01:31 Bed 14 Private MD: ED Physician Maco Suero HPI: 06/15 02:14 This 71 yrs old Male presents to ER via Wheelchair with complaints of Nephrostomy tube ms3 not draining. 02:14 71-year-old male with past medical history of hypertension, overactive bladder, ms3 paraplegia, polio, tremors, bladder cancer presents for left nephrostomy tube not draining. States he is having severe left flank pain. Patient denies alleviating or inciting factors. Patient denies fevers, chills, nausea, vomiting. Onset: The symptoms/episode began/occurred today. Severity of symptoms: At their worst the symptoms were moderate in the emergency department the symptoms are unchanged. Historical: - Allergies: 01:59 PENICILLINS; bb - Home Meds: 01:59 tamsulosin 0.4 mg Oral cp24 [Active]; propranolol 40 mg Oral tab [Active]; gabapentin bb oral [Active]; Hydrocodone-Acetaminophen Oral [Active]; Remeron Oral [Active]; - PMHx: 01:59 Hypertension; overactive bladder; paraplegic; Polio; tremors; neuropathy; bb - PSHx: 01:59 Tonsillectomy; Nephrostomy tube left; right leg; bb - Immunization history:: Pfizer x 3. - Social history:: Smoking status: Patient denies any tobacco usage or history of. ROS: 02:14 Constitutional: Negative for fever, and chills. ENT: Negative for injury, pain, and ms3 discharge, Neck: Negative for injury, pain, and swelling, Cardiovascular: Negative for chest pain, and palpitations. Respiratory: Negative for shortness of breath, cough, wheezing, and pleuritic chest pain, MS/Extremity: Negative for injury and deformity, Skin: Negative for injury, rash, and discoloration, Neuro: Negative for headache, weakness, numbness, tingling. 02:14 Abdomen/GI: Positive for Flank pain. 02:14 All other systems are negative. Exam: 02:14 Constitutional: This is a well developed, well nourished patient who is awake, alert, ms3 and in no acute distress. Neck: Trachea midline, no cervical lymphadenopathy. Supple, full range of motion without nuchal rigidity, or vertebral point tenderness. No Meningismus. Chest/axilla: Normal chest wall appearance and motion. Nontender with no deformity. Cardiovascular: Regular rate and rhythm with a normal S1 and S2. No gallops, murmurs, or rubs. Normal PMI, no JVD. No pulse deficits. Respiratory: Lungs have equal breath sounds bilaterally, clear to auscultation and percussion. No rales, rhonchi or wheezes noted. No increased work of breathing, no retractions or nasal flaring. Abdomen/GI: Soft, non-tender, with normal bowel sounds. No distension or tympany. No guarding or rebound. No evidence of tenderness throughout. Psych: Awake, alert, with orientation to person, place and time. Behavior, mood, and affect are within normal limits. 02:14 Back: Nephrostomy site without erythema or drainage. Vital Signs: 01:58 BP 164 / 85; Pulse 74; Resp 18 S; Temp 97.7(O); Pulse Ox 96% on R/A; Weight 72.57 kg bb (R); Height 5 ft. 9 in. (175.26 cm) (R); Pain 8/10; 03:00 BP 161 / 86; Pulse 82; Resp 18 S; Pulse Ox 100% on R/A; bb 03:43 Pain 0/10; ag7 04:00 BP 149 / 85; Pulse 80; Resp 18 S; Pulse Ox 100% on R/A; Pain 0/10; ag7 04:31 BP 142 / 89; Pulse 81; Resp 18; Pulse Ox 97% ; Pain 0/10; ag7 05:33 BP 151 / 86 RA Supine (auto/reg); Pulse 87 MON; Resp 18; Pulse Ox 97% on R/A; Pain 0/10;ag7 01:58 Body Mass Index 23.63 (72.57 kg, 175.26 cm) MDM: 02:02 Patient medically screened. ms3 02:14 Differential Diagnosis Nephrostomy tube malfunction vs hydronephrosis vs Electrolyte ms3 abnormality vs renal failure. 04:20 Data reviewed: vital signs, nurses notes, lab test result(s), radiologic studies. Data ms3 interpreted: Pulse oximetry: on room air is 100 %. Interpretation: normal. Counseling: I had a detailed discussion with the patient and/or guardian regarding: the historical points, exam findings, and any diagnostic results supporting the discharge/admit diagnosis, lab results, radiology results, the need to transfer to another facility. ED course: Patient excepted at [facility] without doc to doc. Discussed transfer with patient. Patient understands agrees with plan. Patient remains in stable condition.. 06/15 02:03 Order name: CBC with Diff; Complete Time: 03:28 ms3 06/15 02:03 Order name: CMP; Complete Time: 03:28 ms3 06/15 02:03 Order name: CT Abd/Pelvis - Without Contrast ms3 06/15 02:43 Order name: COVID-19/FLU A+B (Document "Date of Onset" if Symptomatic) ag7 06/15 02:03 Order name: IV Saline Lock; Complete Time: 02:28 ms3 06/15 02:03 Order name: Labs collected and sent; Complete Time: 02:28 ms3 Administered Medications: 03:13 Drug: morphine 4 mg {Note: RASS 0.} Route: IVP; Site: left hand; bb 03:43 Follow up: Pain 0/10 Adult; Response: No adverse reaction; Pain is decreased ag7 Disposition Summary: 06/15/21 04:20 Transfer Ordered Transfer Location: Other Acute Care Facility ms3 Reason: Higher level of care ms3 Condition: Stable ms3 Problem: new ms3 Symptoms: are unchanged ms3 Accepting Physician: .(06/15/21 06:25) ag7 Diagnosis - Other hydronephrosis ms3 - Malfunctioning Nephrostomy tube ms3 - Bladder cancer ms3 Forms: - Medication Reconciliation Form ms3 - SBAR form ms3 Signatures: Dispatcher [employer] Cris Maza RN RN bb Sims, Marcus, DO DO ms3 Shadia Rangel RN RN ag7 Corrections: (The following items were deleted from the chart) 06:25 04:20 . ms3 ag7
[2021-06-15 07:48] VITALS: TEMP 97.7
[2021-06-15 07:54] VITALS: O2SAT 97
[2021-06-15 07:56] VITALS: BP 151/86
--- NOTE | 2021-06-16 13:37 | RAD REPORT ---
EXAM DESCRIPTION: CT - Abdomen Pelvis Wo Contrast - 06/15/2021 6:57 am CLINICAL HISTORY: FLANK PAIN COMPARISON: None Available. TECHNIQUE: CT of the abdomen and pelvis without IV contrast. Evaluation of the solid organs and vasc ulature is suboptimal due to lack of IV contrast. This exam was performed according to our department al dose-optimization program, which includes automated exposure control, adjustment of the mA and/or kV according to patient size and/or use of iterative reconstruction technique. FINDINGS: Lung Bases: Mild emphysematous change in the right lung base. Linear left basilar opacitie s. Bones: Multilevel endplate spondylosis and facet arthropathy. Sclerotic changes of the right acetabul um, bilateral ilium, and diffusely sacrum. Right hip joint effusion. Abdomen: Liver: The liver has normal size and density. Gallbladder: No calcified gallstones. Spleen, Pancreas, and Adrenal Glands: Calcified splenic granulomas. Kidneys: Left-sided hydronephrosis and hydroureter. Left nephrostomy tube in place. No right-sided hy dronephrosis. Vasculature: Aortoiliac atherosclerosis. IVC is unremarkable. Stomach: The stomach and duodenum have normal course. Other: No free intraperitoneal air. No free fluid or lymphadenopathy. Pelvis: Bladder: Wall thickening of the urinary bladder. Bowel: No dilated loops of small bowel. Scattered diverticula of the colon. Appendix: Normal appendix. Pelvis: Enlarged prostate. IMPRESSION: 1. Left-sided hydronephrosis and hydroureter with left nephrostomy tube in place. Denise elation for nephrostomy tube function recommended. 2. Wall thickening of the urinary bladder. This could be seen with cystitis or chronic bladder outl et obstruction. 3. Enlarged prostate. 4. Sclerotic changes of the right acetabulum, bilateral ilium, and diffusely sacrum. Findings dex rning for metastatic disease. Nuclear medicine bone scan may be helpful. 5. Right hip joint effusion. 6. Diverticulosis without evidence of acute diverticulitis. Electronically signed by: Domenico Adkins 06/15/2021 3:34 AM CDT Due to temporary technical issues with the PACS/Fluency reporting system, reports are being signed by the in house radiologist without review as a courtesy to ensure prompt reporting. The interpreting r adiologist is fully responsible for the content of the report.
== END 2021-06-15 06:25 ==
LOC: ER 01:29
DX: N99.522 Malfunction of incontinent external stoma of urinary tract (principal); N13.39 Other hydronephrosis; C67.9 Malignant neoplasm of bladder, unspecified; I10 Essential (primary) hypertension; G82.20 Paraplegia, unspecified; Z88.0 Allergy status to penicillin
CPT/HCPCS: 85025; 36415; 80053; 0240U; 74176; 96374; 99285

== ENCOUNTER 2022-05-01 14:23 | Emergency (ER) | payer OTHER ==
[2022-05-01 15:25] LABS: Absolute Lymphocytes (CBC) 0.3 K/uL (0.7-4.9); Lymphocytes % 2.2 % (15.3-44.8); MCV 88.9 fL (80-100); MPV 7.5 fL (7.6-11.3); RBC Red Blood Cell Count 2.92 M/uL (4.33-5.43)
[2022-05-01 15:29] LABS: Protime INR 1.23
[2022-05-01] MEDS ORDERED: ACETAMINOPHEN 500 MG TAB ONE (15:32)
[2022-05-01] MEDS ORDERED: VANCOMYCIN 1 GM/VIAL ONE (15:33)
[2022-05-01] MEDS ORDERED: FENTANYL CITR 100 MCG/2 ML ONE (15:33)
[2022-05-01] MEDS ORDERED: IPRATROPIUM BROM 0.5MG/2.5ML ONE (15:34)
[2022-05-01] MEDS ORDERED: ONDANSETRON 4 MG/2 ML VIAL ONE (15:34)
[2022-05-01] MEDS ORDERED: NA CHLORIDE 0.9% 250 ML ONE (15:34)
[2022-05-01] MEDS ORDERED: LEVALBUTEROL 1.25 MG/3 ML NEB ONE (15:34)
[2022-05-01] MEDS ORDERED: NA CHLORIDE 0.9% 100 ML ONE (15:34)
[2022-05-01] MEDS ORDERED: FAMOTIDINE 20 MG/2 ML VIAL IV ONE (15:34)
[2022-05-01] MEDS ORDERED: NA CHLORIDE 0.9% 1,000 ML ONE (15:35)
[2022-05-01] MEDS ORDERED: CEFEPIME 1 GM/VIAL ONE (15:35)
--- OUTSIDE RECORDS SUMMARY | 2022-05-01 15:44 | XMS REPORT | Clinical Summary ---
:1950 Author Organization [facility] MD [facility] Address [address] [place] [address] Care Team Providers Name Role Phone Reece Joseph MD Unavailable Franky Peralta MD Unavailable Dante Christy MD Primary Care Provider Allergies Active Allergy Reactions Severity Noted Date Comments Penicillins Anaphylaxis High 12/04/2019 Previously tole rated ceftriaxone and meropenem. Medications Medication Sig Dispensed Refills Start Date End Date Status tamsulosin (FLOMAX) Take 1 capsule 0 09/06/2019 Active 0.4 mg 24 hr capsule (0.4 mg) by mouth daily. Urinary flow multivitamin capsule Take 1 capsule by 0 Active mouth daily. Vitamin Supplement. polyethylene glycol Take 17 g by mouth 0 04/12/2020 Active (MIRALAX) 17 g daily. packetIndications: Constipation. Personal history of Available over the malignant neoplasm of counter. Hold for bladder diarrhea/loose stools. lidocaine-prilocaine APPLY TO 30 g 0 05/04/2020 Active (EMLA) 2.5-2.5% PORT-A-CATH AREA creamIndications: 30 TO 45 MINUTES Encounter for PRIOR TO PORT adjustment and ACCESS DIRECTED management of vascular (TOPICAL access device ANESTHETIC). Additional Information Patient not taking. Reason: No longer taking, Reported on 04/17/2022 triamcinolone (KENALOG) 0.5% Apply topically to 30 g 0 Active creamIndications: Malignant affected area(s) 3 neoplasm of overlapping sites of (three) times a day. urinary organs Additional Information Patient not taking. Reason: No longer taking, Reported on 02/10/2022 acetaminophen (TYLENOL) 500 Take 2 tablets (1,000 mg) 0 Active mg tablet by mouth 3 (three) times a day. gabapentin (Neurontin) 300 Take 1 capsule (300 mg) 30 capsule 1 02/20/2022 Active mg capsuleIndications: by mouth at bedtime. Neoplasm related pain (acute) (chronic), Cancer associated pain naloxone (Narcan) 4 Use 1 dose into one 2 each 0 03/06/2022 Active mg/actuation nasal nostril as needed for sprayIndications: Cancer opioid overdose. Do not associated pain prime or test the inhaler prior to adminstration. Give another dose into the other nostril after 2 to 3 minutes if the patient does not respond or responds and then relapses into respiratory depression. mirtazapine (REMERON) 15 mg Take 1 tablet (15 mg) by 30 tablet 2 03/12/2022 Active tabletIndications: Insomnia mouth at bedtime. due to medical condition OLANZapine (ZyPREXA) 2.5 mg Take 1 tablet (2.5 mg) by 30 tablet 0 03/24/2022 Active tabletIndications: Insomnia mouth nightly as needed due to medical condition for anxiety or sleep. Additional Information Patient not taking. Reason: No longer taking, Informant: Self, Reported on 04/15/2022 HYDROmorphone (Dilaudid) 4 mg Take 1 tablet (4 mg) 120 tablet 0 03/24/2022 Active tabletIndications: Cancer by mouth every 4 associated pain (four) hours as needed for moderate pain or severe pain. erythromycin (ROMYCIN) 0.5% Administer 0.5 inches 3.5 g 0 04/03/2022 Active ophthalmic into the left eye at ointmentIndications: Primary bedtime. urothelial carcinoma of overlapping sites of urinary organs Additional Information Patient not taking. Reason: Other (doesn't like the cream), Reported on 04/17/2022 ciprofloxacin HCl (Cipro) 500 mg Take 1 tablet (500 20 tablet 0 04/06/2022 Active tabletIndications: Cystitis mg) by mouth twice daily. methadone (DOLOPHINE) 5 mg Take 2 tablets (10 240 tablet 0 09/2022 Active tabletIndications: Cancer mg) by mouth every 8 associated pain (eight) hours. Additional Information Patient taking differently: 10 mg oral Every 6 hours, Reason: Other, Reported on 04/17/2022 gabapentin (NEURONTIN) Take 1 capsule 60 3 01/06/2021 0 05/05/2021 Discontinued 300 mg (300 mg) by capsule (Reorder ) capsuleIndications: mouth twice Neuropathy, not daily. otherwise specified Bifidobacterium Take 1 capsule 0 2 Discontinued infantis (Align) 4 mg by mouth daily. (Therapy cap GI health completed) HYDROcodone-acetaminop Take 1 tablet by 60 tablet 0 03/04/2021 05/05/2021 Discontinued hen (NORCO) 5 mg-325 mouth every 6 mg per (six) hours as tabletIndications: needed for Chronic pain due to moderate pain or malignant neoplastic severe pain. disease mirtazapine (REMERON) Take 1 tablet 30 tablet 2 03/10/2021 Discontinued 15 mg (15 mg) by mouth (Re order) tabletIndications: at bedtime. Insomnia due to medical condition propranoloL (INDERAL) TAKE 1 TABLET BY 180 1 03/27/2021 10/09/2021 Discontinued 60 mg MOUTH TWICE A tablet (Reord er) tabletIndications: DAY EVERY DAY TO Poliomyelomalacia PREVENT TREMORS HOLD IF SYSTOLIC BP LESS THAAN 110 acetaminophen Take 500-1,000 0 12/15/2021 Discontinued (TYLENOL) 500 mg mg by mouth ( Stop Taking tablet every 6 (six) at Dis charge) hours as needed for mild pain or moderate pain. Buy over the counter. gabapentin (NEURONTIN) Take 1 capsule 60 3 05/05/2021 0 08/27/2021 Discontinued 300 mg (300 mg) by capsule capsuleIndications: mouth twice Neuropathy, not daily. otherwise specified HYDROcodone-acetaminop Take 1 tablet by 120 0 05/05/2021 06/12/2021 Discontinued hen (NORCO) 10 mg-325 mouth every 6 tablet (Reorder) mg per (six) hours as tabletIndications: needed for Cancer associated moderate pain or pain, Neuropathy, not severe pain. otherwise specified mirtazapine (REMERON) Take 1 tablet 30 tablet 2 05/05/2021 06/ Discontinued 15 mg (15 mg) by mouth (Re order) tabletIndications: at bedtime. Insomnia due to medical condition metoclopramide Take 1 tablet (5 90 tablet 0 05/05/2021 022 Discontinued (Reglan) 5 mg mg) by mouth 3 ( Reorder) tabletIndications: (three) times a Early satiety day before meals. senna (SENOKOT) 8.6 mg Take 2 tablets 0 Discontinued tablet by mouth twice daily. To prevent constipation (stimulant). Buy over the counter. HYDROcodone-acetaminop Take 1 tablet by 60 tablet 0 06/12/2021 07/02/2021 Discontinued hen (NORCO) 10 mg-325 mouth every 6 (Reorder) mg per (six) hours as tabletIndications: needed for Cancer associated moderate pain or pain, Neuropathy, not severe pain. otherwise specified metoclopramide Take 2 tablets 0 06/18/2021 2 Discontinued (Reglan) 5 mg (10 mg) by mouth (Reorder) tabletIndications: See Admin Early satiety Instructions. Take before dinner to help bowels move and prevent nausea ciprofloxacin HCl Take 1 tablet 28 tablet 0 06/18/2021 022 (CIPRO) 500 mg (500 mg) by tabletIndications: mouth twice Urinary tract daily for 14 infection days. For infection as per ID consultation, dose adjusted for kidney dysfunction metoclopramide Take 2 tablets 0 06/18/2021 2 Discontinued (Reglan) 5 mg (10 mg) by mouth tabletIndications: See Admin Early satiety Instructions. Take before dinner to help bowels move and prevent nausea, may increase appetite HYDROcodone-acetaminop Take 1 tablet by 25 tablet 0 07/02/2021 07/03/2021 Discontinued hen (NORCO) 10 mg-325 mouth every 6 (Reorder) mg per (six) hours as tabletIndications: needed for Cancer associated moderate pain or pain, Neuropathy, not severe pain. otherwise specified HYDROcodone-acetaminop Take 1 tablet by 95 tablet 0 07/10/2021 07/31/2021 Discontinued hen (NORCO) 10 mg-325 mouth every 6 (Reorder) mg per (six) hours as tabletIndications: needed for Cancer associated moderate pain or pain, Neuropathy, not severe pain. otherwise specified HYDROcodone-acetaminop Take 1 tablet by 72 tablet 0 07/31/2021 08/21/2021 Discontinued hen (NORCO) 10 mg-325 mouth every 6 (Reorder) mg per (six) hours as tabletIndications: needed for Cancer associated moderate pain or pain, Neuropathy, not severe pain. otherwise specified HYDROcodone-acetaminop Take 1 tablet by 28 tablet 0 08/21/2021 08/27/2021 Discontinued hen (NORCO) 10 mg-325 mouth every 6 (Therapy mg per (six) hours as compl eted) tabletIndications: needed for Cancer associated moderate pain or pain, Neuropathy, not severe pain. otherwise specified methadone (DOLOPHINE) Take 0.5 tablets 60 tablet 0 08/27/2021 08/28/2021 Discontinued 5 mg (2.5 mg) by (Reorder ) tabletIndications: mouth every 12 Cancer associated pain (twelve) hours. HYDROmorphone Take 1 tablet (2 100 0 08/27/2021 09/13/19 Discontinued (Dilaudid) 2 mg mg) by mouth tablet ( Reorder) tabletIndications: every 4 (four) Cancer associated pain hours as needed (pain). gabapentin (NEURONTIN) 300 mg twice daily x 1 week 1 capsule 3 08/27/2021 11/21/2021 Discontinued 300 mg 300 mg nightly x 2 weeks (Reorder) capsuleIndications: Then stop Neuropathy, not otherwise specified mirtazapine (REMERON) Take 1 tablet 30 tablet 2 08/27/2021 Discontinued 15 mg (15 mg) by mouth (Re order) tabletIndications: at bedtime. Insomnia due to medical condition methadone (DOLOPHINE) Take 0.5 tablets 60 tablet 0 08/29/2021 09/22/2021 Discontinued 5 mg (2.5 mg) by (Reorder ) tabletIndications: mouth every 12 Cancer associated pain (twelve) hours. HYDROmorphone Take 1 tablet (2 90 tablet 0 09/12/2021 09/23/19 22 Discontinued (Dilaudid) 2 mg mg) by mouth ( Reorder) tabletIndications: every 4 (four) Cancer associated pain hours as needed (pain). HYDROmorphone Take 1 tablet (2 90 tablet 0 09/22/2021 11/22/19 22 Discontinued (Dilaudid) 2 mg mg) by mouth ( Reorder) tabletIndications: every 4 (four) Cancer associated pain hours as needed (pain). methadone (DOLOPHINE) Take 1 tablet (5 30 tablet 0 09/22/2021 10/20/2021 Discontinued 5 mg mg) by mouth (Reorde r) tabletIndications: every 12 Cancer associated pain (twelve) hours. prochlorperazine Take 1 tablet 30 tablet 5 09/23/2021 10/22/19 22 Discontinued (Compazine) 10 mg (10 mg) by mouth (Reorder) tabletIndications: every 8 (eight) Personal history of hours as needed malignant neoplasm of for nausea or bladder vomiting. loperamide (IMODIUM) 2 Take 2 capsules 30 5 09/23/2021 11/18/2021 Discontinued mg capsuleIndications: (4 mg) after the capsule Personal history of first loose malignant neoplasm of bowel movement, bladder and 1 capsule (2 mg) after each loose bowel movement after the first dose has been taken. No more than 8 mg (4 capsules) should be taken in any 24-hour period. INV-() IK-175 Take 8 tablets 225 0 09/23/2021 0 10/21/2021 Discontinued (KYN-175) 150 mg (1,200 mg) by tablet (Reorder) tabletIndications: mouth daily. Personal history of Take within 30 malignant neoplasm of minutes of bladder consuming a meal. The dose should be taken at approximately the same time each day. propranoloL (INDERAL) TAKE 1 TABLET BY 180 1 10/09/2021 11/18/2021 Discontinued 60 mg MOUTH TWICE A tablet tabletIndications: DAY EVERY DAY TO Poliomyelomalacia PREVENT TREMORS HOLD IF SYSTOLIC BP LESS THAN 110 naproxen sodium 220 mg Take 220 mg by 0 Discontinued cap mouth 2 (two) (Not times a day with Opal licable) meals. Patient only takes it at night for his right knee. methadone (DOLOPHINE) Take 1 tablet (5 60 tablet 0 10/20/2021 10/24/2021 Discontinued 5 mg mg) by mouth (Reorde r) tabletIndications: every 12 Cancer associated pain (twelve) hours. prochlorperazine Take 1 tablet 60 tablet 5 10/21/2021 04/18/19 23 Discontinued (Compazine) 10 mg (10 mg) by mouth tabletIndications: every 8 (eight) Personal history of hours as needed malignant neoplasm of for nausea or bladder vomiting. INV-() IK-175 Take 8 tablets 225 0 10/21/2021 0 11/18/2021 Discontinued (KYN-175) 150 mg (1,200 mg) by tablet (Reorder) tabletIndications: mouth daily. Personal history of Take within 30 malignant neoplasm of minutes of bladder consuming a meal. The dose should be taken at approximately the same time each day. methadone (DOLOPHINE) Take 1 tablet (5 60 tablet 0 10/24/2021 11/21/2021 Discontinued 5 mg mg) by mouth (Reorde r) tabletIndications: every 12 Cancer associated pain (twelve) hours. levoFLOXacin Take 1 tablet 5 tablet 0 11/18/2021 12/16/2021 D iscontinued (Levaquin) 750 mg (750 mg) by tabletIndications: mouth daily. For Primary urothelial lung infection carcinoma of overlapping lesion of urinary organ INV-() IK-175 Take 8 tablets 225 0 11/18/2021 1 Discontinued (KYN-175) 150 mg (1,200 mg) by tablet (Reorder) tabletIndications: mouth daily. Personal history of Take within 30 malignant neoplasm of minutes of bladder consuming a meal. The dose should be taken at approximately the same time each day. methadone (DOLOPHINE) Take 1 tablet (5 60 tablet 0 11/21/2021 12/22/2021 Discontinued 5 mg mg) by mouth (Reorde r) tabletIndications: every 12 Cancer associated pain (twelve) hours. HYDROmorphone Take 1 tablet (2 90 tablet 0 11/21/2021 12/27/19 22 Discontinued (Dilaudid) 2 mg mg) by mouth ( Alternate tabletIndications: every 4 (four) therapy) Cancer associated pain hours as needed (pain). gabapentin (NEURONTIN) Take 1 tablet 30 2 11/21/2021 Discontinued 600 mg (600 mg) by capsule (Reorder ) tabletIndications: mouth at Neuropathy, not bedtime. otherwise specified mirtazapine (REMERON) Take 1 tablet 30 tablet 2 11/21/202107/2022 Discontinued 15 mg (15 mg) by mouth (Re order) tabletIndications: at bedtime. Insomnia due to medical condition INV-() IK-175 Take 8 tablets 225 0 12/16/2021 1 03/15/2021 Discontinued (KYN-175) 150 mg (1,200 mg) by tablet (Reorder) tabletIndications: mouth daily. Personal history of Take within 30 malignant neoplasm of minutes of bladder consuming a meal. The dose should be taken at approximately the same time each day. methadone (DOLOPHINE) Take 1 tablet (5 10 tablet 0 12/22/2021 12/26/2021 Discontinued 5 mg mg) by mouth (Reorde r) tabletIndications: every 12 Cancer associated pain (twelve) hours. HYDROmorphone Take 1 tablet (4 90 tablet 0 12/26/2021 01/09/20 22 Discontinued (Dilaudid) 4 mg mg) by mouth ( Reorder) tabletIndications: every 4 (four) Cancer associated pain hours as needed for moderate pain or severe pain. methadone (DOLOPHINE) Take 1 tablet (5 90 tablet 0 12/26/2021 01/22/2022 Discontinued 5 mg mg) by mouth (Reorde r) tabletIndications: every 8 (eight) Cancer associated pain hours. HYDROmorphone Take 1 tablet (4 80 tablet 0 01/08/2022 01/28/20 22 Discontinued (Dilaudid) 4 mg mg) by mouth ( Reorder) tabletIndications: every 4 (four) Cancer associated pain hours as needed for moderate pain or severe pain. ibuprofen Take 1 tablet 0 03/06/2022 Disco ntinued (ADVIL,MOTRIN) 200 mg (200 mg) by tablet mouth every 8 (eight) hours as needed for mild pain. INV-() IK-175 Take 8 tablets 225 0 01/13/2022 1 04/13/2021 Discontinued (KYN-175) 150 mg (1,200 mg) by tablet (Reorder) tabletIndications: mouth daily. Personal history of Take within 30 malignant neoplasm of minutes of bladder consuming a meal. The dose should be taken at approximately the same time each day. methadone (DOLOPHINE) Take 1 tablet (5 9 tablet 0 01/22/2022 01/27/2022 Discontinued 5 mg mg) by mouth (Reorde r) tabletIndications: every 8 (eight) Cancer associated pain hours. HYDROmorphone Take 1 tablet (4 120 0 01/27/2022 02/18/20 22 Discontinued (Dilaudid) 4 mg mg) by mouth tablet ( Reorder) tabletIndications: every 4 (four) Cancer associated pain hours as needed for moderate pain or severe pain. methadone (DOLOPHINE) Take 1 tablet (5 90 tablet 0 01/27/2022 02/20/2022 Discontinued 5 mg mg) by mouth tabletIndications: every 8 (eight) Cancer associated pain hours. ciprofloxacin HCl Take 1 tablet 14 tablet 0 02/05/2022 022 (CIPRO) 500 mg (500 mg) by tabletIndications: mouth twice Malignant neoplasm of daily for 7 overlapping sites of days. urinary organs INV-() IK-175 Take 8 tablets 225 0 02/10/2022 0 04/18/2022 Discontinued (KYN-175) 150 mg (1,200 mg) by tablet tabletIndications: mouth daily Malignant neoplasm of within 30 overlapping sites of minutes of urinary organs consuming a meal, at approximately the same time each day. gabapentin (NEURONTIN) Take 1 tablet 30 tablet 0 02/17/2022 Discontinued 600 mg (600 mg) by (Therapy tabletIndications: mouth at c ompleted) Neuropathy, not bedtime. otherwise specified HYDROmorphone Take 1 tablet (4 120 0 02/17/2022 03/06/20 Discontinued (Dilaudid) 4 mg mg) by mouth tablet ( Reorder) tabletIndications: every 4 (four) Cancer associated pain hours as needed for moderate pain or severe pain. methadone (DOLOPHINE) Take 1.5 tabs 90 tablet 0 02/20/2022 Discontinued 5 mg (7.5 mg) in AM 5 (Re order) tabletIndications: mg afternoon and Cancer associated pain 7.5 mg (1.5 tab) at night ibuprofen Take 1 tablet 0 03/06/2022 Disco ntinued (ADVIL,MOTRIN) 800 mg (800 mg) by tablet mouth. Taking BID celecoxib (CeleBREX) Take 1 capsule 60 0 03/06/2022 Discontinued 100 mg (100 mg) by capsule capsuleIndications: mouth twice Cancer associated pain daily. methadone (DOLOPHINE) Take 2 tablets 90 tablet 0 03/06/2022 Discontinued 5 mg (10 mg) by mouth (Re order) tabletIndications: every 8 (eight) Cancer associated pain hours. HYDROmorphone Take 1 tablet (4 60 tablet 0 03/06/2022 03/19/19 23 Discontinued (Dilaudid) 4 mg mg) by mouth ( Reorder) tabletIndications: every 4 (four) Cancer associated pain hours as needed for moderate pain or severe pain. IBUPROFEN ORAL Take 200 mg by 0 2022 Discontinued mouth daily. (Other ) Takes 2 tabs of 200 mg Ibuprofen PO daily HYDROmorphone Take 1 tablet (4 5 tablet 0 03/19/2022 03/24/19 Discontinued (Dilaudid) 4 mg mg) by mouth ( Reorder) tabletIndications: every 4 (four) Cancer associated pain hours as needed for moderate pain or severe pain. methadone (DOLOPHINE) Take 2 tablets 18 tablet 0 03/19/2022 Discontinued 5 mg (10 mg) by mouth (Re order) tabletIndications: every 8 (eight) Cancer associated pain hours. methadone (DOLOPHINE) Take 2 tablets 180 0 03/24/2022 Discontinued 5 mg (10 mg) by mouth tablet (Re order) tabletIndications: every 8 (eight) Cancer associated pain hours. methadone (DOLOPHINE) Take 2 tablets 180 0 03/25/2022 Discontinued 5 mg (10 mg) by mouth tablet tabletIndications: every 8 (eight) Cancer associated pain hours. methadone (DOLOPHINE) Take two tablets 180 0 03/30/2022 04/08/2022 Discontinued 5 mg PO (10 mg) in tablet (Reord er) tabletIndications: am, three Cancer associated pain tablets PO (15 mg) in afternoon, two tablets PO (10 mg) in evening methadone (DOLOPHINE) Take two tablets 21 tablet 0 04/08/2022 2022 Discontinued 5 mg PO (10 mg) in (Dose tabletIndications: am, three a djustment) Cancer associated pain tablets PO (15 mg) in afternoon, two tablets PO (10 mg) in evening methadone (DOLOPHINE) Take 2 tablets 240 0 2022 Discontinued 5 mg (10 mg) by mouth tablet (Re order) tabletIndications: every 8 (eight) Cancer associated pain hours. 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 Paraplegia 12/05/2019 Personal history of malignant neoplasm of bladder 11/07 Essential hypertension 11/01/2019 Benign prostatic hyperplasia 11/01/2019 H/O: poliomyelitis 11/01/2019 Sleep apnea 03/08/1999 Poliomyelomalacia 1950 Encounters Date Type Specialty Care Team Description 05/01/2022 Telephone Urology Bárbara Perez RN 04/29/2022 Hospital Encounter Pain Medicine Shaun Bhatia MD Cancer associated pain 04/29/2022 Documentation Genitourinary Jaelyn, Oncology MD Dante 04/29/2022 Documentation Pain Medicine Hayden Marin MD 04/29/2022 Travel 04/28/2022 Orders Only Genitourinary Carina Edmondson Oncology PA 04/28/2022 Telephone Genitourinary Isamar Ricks securities underwriter 04/24/2022 Infusion Infusion Services Carina Edmondson, Primary urothelial PA carcinoma of [place], overlapping les ion of Mary Kay P, RN urinary organ (Primary Dx) 04/24/2022 Hospital Encounter Lab Carina Edmondson, 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 04/24/2022 Travel 04/20/2022 Orders Only Genitourinary Carina Edmondson, Malignant ne oplasm of Oncology PA overlapping sit es of urinary organs (Primary Dx) 04/18/2022 Hospital Encounter Infusion Services Carina Edmondson, Pr imary urothelial PA carcinoma of MarissaDev hernandez overlapping les ion of S, RN urinary organ ( Primary Dx) 04/18/2022 Orders Only Genitourinary Carina Edmondson Oncology PA 04/18/2022 Travel 04/17/2022 Follow-Up Genitourinary Jaelyn, Primary urothe lial Oncology MD Dante carcinoma of overlapping les ion of urinary organ 04/17/2022 Hospital Encounter Lab Carina Edmondson, 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 04/17/2022 Telephone Genitourinary Cale Oncology RONN Fiore 04/17/2022 Orders Only Genitourinary Jaelyn, Primary urothe lial Oncology MD Dante carcinoma of overlapping les ion of urinary organ ( Primary Dx) 04/17/2022 Orders Only Genitourinary Carina Edmondson, Primary urot helial Oncology PA carcinoma of overlapping les ion of urinary organ ( Primary Dx) 04/17/2022 Travel 04/16/2022 Orders Only Genitourinary Jaelyn Oncology MD Dante 04/15/2022 Telemedicine Physical Medicine Marvel Villafuerte, [place], incomplete (Primary Dx); and Rehabilitation 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; Светлана Roy MD Pressure injury <Contiguous site of back, buttock and hip>; Segmental and s omatic dysfunction of lower extremity 04/15/2022 Orders Only Genitourinary Alhalmiryam, Malignant neop lasm of Oncology MD Dante overlapping sit es of urinary organs (Primary Dx) 04/15/2022 Orders Only Genitourinary Carina Edmondson, Primary urot helial Oncology PA carcinoma of overlapping les ion of urinary organ ( Primary Dx) 04/14/2022 Ancillary Procedure Radiology Jaelyn, Primary urothelial MD Dante carcinoma of overlapping sit es of urinary organs 04/14/2022 Orders Only Genitourinary Jaelyn, Primary urothe lial Oncology MD Dante carcinoma of overlapping les ion of urinary organ ( Primary Dx) 04/14/2022 Orders Only Genitourinary DelvisPaulaCarina, Primary urot helial Oncology PA carcinoma of overlapping sit es of urinary organs (Primary Dx) 04/14/2022 Travel 04/13/2022 Hospital Encounter Radiology Carina Edmondson, Nephros melany (Primary Dx); PA 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 Rubén Garcia MD 04/13/2022 Orders Only Genitourinary DelvisCarina, Oncology PA 04/13/2022 Travel 2022 Orders Only Radiology Baylee Merida, PA 04/09/2022 Orders Only Genitourinary Delvis Carina, Primary urot helial Oncology PA carcinoma of overlapping sit es of urinary organs (Primary Dx) 04/08/2022 Hospital Encounter Lab Jaelyn, Primary u rothelial MD Dante carcinoma of overlapping les ion of urinary organ 04/08/2022 Orders Only Genitourinary Ariaabi, Primary urothe lial Oncology MD Dante carcinoma of overlapping sit es of urinary organs (Primary Dx) 04/08/2022 Orders Only Genitourinary Carina Edmondson, Primary urot helial Oncology PA carcinoma of overlapping sit es of urinary organs (Primary Dx) 04/07/2022 Telemedicine Genitourinary Alhalabi, Primary urothe lial carcinoma of overlapping lesion of urinary organ (Primary Dx); Oncology MD Dante Primary urothel ial carcinoma of overlapping sites of urinary organs 04/07/2022 Orders Only Genitourinary DelvisPaulaCarina, Primary urot helial Oncology PA carcinoma of overlapping sit es of urinary organs (Primary Dx) 04/06/2022 Emergency Emergency Medicine Temi Das, Cystitis (Primary Dx); Personal histor y of malignant neoplasm of bladder; Other retention of urine; Nephrostomy; Renal insuffici ency 04/06/2022 Travel 04/03/2022 Orders Only Genitourinary Alhalabi, Primary urothe lial Oncology MD Dante carcinoma of overlapping sit es of urinary organs (Primary Dx) 04/03/2022 Orders Only Genitourinary Carina Edmondson, Primary urot helial Oncology PA carcinoma of overlapping sit es of urinary organs (Primary Dx) 04/03/2022 Orders Only Genitourinary rIis Gallego Oncology N, RN 04/03/2022 Orders Only Genitourinary Arvind Christy MD 03/31/2022 Ancillary Procedure Radiology Dante Christy MD 03/31/2022 Ancillary Procedure Radiology Jaelyn 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; Malignant neopl asm of overlapping sites of urinary organs; 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; 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; Secondary malig nant neoplasm of bone 03/16/2022 Orders Only Genitourinary Vicenta, Secondary sigrid gnant Oncology Taya Cervantes APN neoplasm of retroperitoneum and peritoneum (Kenia chito Dx) 03/16/2022 Travel 03/14/2022 Clinical Support Silvina Go, Suspected COVID-19 PA (Primary Dx) Hussain Tovar MA 03/14/2022 Travel 03/13/2022 Orders Only Radiology Silvina Morin, PA 03/12/2022 Office Visit Genitourinary Yamilefker-Leela Malignant ne oplasm of overlapping sites of urinary organs (Primary Dx); Oncology , MD Nighat Malignant neopl asm of overlapping sites of bladder; 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; 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, carcinoma of 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 overlapping sit es of urinary organs (Primary Dx) 03/10/2022 Telephone Genitourinary Arya, Arvind Carbone RN 03/10/2022 Travel 03/04/2022 Orders Only Genitourinary Dewey, Primary urothe lial Oncology Angela N carcinoma of overlapping sit es of urinary organs (Primary Dx) 03/02/2022 Orders Only Genitourinary Carson Oneill Malignant neop lasm of Oncology Héctor, 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 overlapping sit es of urinary organs (Primary Dx) 02/20/2022 Ancillary Procedure Radiology Carson Oneill Primary urothelial Héctor, 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 carcinoma of overlapping sit es of urinary organs 02/20/2022 Orders Only Genitourinary Davida Mendiola Oncology JONEL Valentin 02/20/2022 Travel 02/13/2022 Orders Only Genitourinary Dewey, Malignant neop lasm of Oncology Angela N overlapping sit es of urinary organs (Primary Dx) 02/13/2022 Orders Only Genitourinary Keyon Benavides Malignant cristina plasm of Oncology K overlapping sit es of urinary organs (Primary Dx) 02/11/2022 Telephone Genitourinary Carson Oneill Oncology Héctor, 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 02/10/2022 Ancillary Procedure Radiology Leonor Hernandez, No Show 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 02/10/2022 Infusion Infusion Services Leonor Hernandez, Primary ur othelial carcinoma of overlapping sites of urinary organs (Primary Dx); 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 Personal history of malignant neoplasm o f bladder; Pam, Shine III Primary urothe lial carcinoma of overlapping lesion of urinary organ P, RN 02/10/2022 Follow-Up Genitourinary Leonor Hernandez, Primary urothe lial Oncology 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 carcinoma of OneillCarson overlapping sit es of Héctor, 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 urinary organs (Primary Dx) 02/10/2022 Orders Only Genitourinary Thomas Primary urothe lial Oncology MD Wojciech carcinoma of overlapping les ion of urinary organ ( Primary Dx) 02/10/2022 Orders Only Genitourinary Irvin Leyva, Oncology [facility] 02/10/2022 Orders Only Genitourinary Siefker-Leela Oncology Nighat MD 02/10/2022 Documentation Genitourinary Siefker-Leela Oncology Nighat MD 02/10/2022 Travel 02/05/2022 Orders Only Genitourinary Neida Car, Malignant cristina plasm of Oncology 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 overlapping sit es of urinary organs (Primary Dx) 02/05/2022 Case Management Sonia Cosme RN 02/04/2022 Hospital Encounter Lab Leonor Hernandez, Primary u rothelial 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 carcinoma of overlapping les ion of urinary organ 02/04/2022 Case Management Sonia Cosme, RONN 02/04/2022 Orders Only Genitourinary Leonor Hernandez, Oncology 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 02/04/2022 Telephone Genitourinary Leonor Hernandez, Oncology 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 02/04/2022 Orders Only Genitourinary Leonor Hernandez, Primary urothe lial Oncology 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 carcinoma of overlapping les ion of urinary organ ( Primary Dx) 02/03/2022 Telephone Genitourinary Leonor Hernandez, Oncology 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 02/03/2022 Orders Only Genitourinary Uthup, Joma, Oncology 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 01/23/2022 Ancillary Procedure Radiology Dante Christy MD 01/23/2022 Ancillary Procedure Radiology Jaky Christyan t neoplasm of MD Dante overlapping sit es of urinary organs 01/23/2022 Ancillary Procedure Radiology Nirmal Christy t neoplasm of MD Dante overlapping sit es of urinary organs 01/23/2022 Travel 01/22/2022 Orders Only Genitourinary Leonor Hernandez, Personal histo ry of Oncology 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 malignant neopl asm of bladder (Primar y Dx) 01/22/2022 Orders Only Genitourinary Leonor Hernandez, Primary urothe lial Oncology 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 carcinoma of overlapping sit es of urinary organs (Primary Dx) 01/14/2022 Orders Only Genitourinary KennedyKeyon Primary uroth elial Oncology K carcinoma of overlapping sit es of urinary organs (Primary Dx) 01/13/2022 Infusion Infusion Services Aljeremias, Secondary malignant neoplasm of bone (Primary Dx); MD Dante Personal histor y of malignant neoplasm of bladder; Malignant neopl asm of overlapping sites of urinary organs 01/13/2022 Office Visit Genitourinary John, Malignant neop lasm of Oncology Rachana Aguilar, overlapping si cristina of 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 urinary organs Leonor Hernandez NP 01/13/2022 Documentation Genitourinary Jaelyn, Oncology MD Dante 01/13/2022 Orders Only Genitourinary Leonor Hernandez Oncology 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 01/13/2022 Orders Only Genitourinary Arabella Personal histo ry of Oncology MARIAM Miranda malignant neop lasm of bladder (Primar y Dx) 01/13/2022 Travel 01/12/2022 Orders Only Genitourinary Dewey, Primary urothe lial Oncology Angela N carcinoma of overlapping sit es of urinary organs (Primary Dx) 01/09/2022 Ancillary Procedure Radiology Nirmal Christy t neoplasm of MD Dante overlapping sit es of urinary organs 01/09/2022 Travel 12/30/2021 Telemedicine Genitourinary Jaelyn Malignant neop lasm of Oncology MD Dante overlapping sit es of urinary organs 12/30/2021 Hospital Encounter Lab Uthup, Joma, Malignant neoplasm of 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 overlapping sit es of urinary organs 12/30/2021 Orders Only Genitourinary Uthup, Joma, Malignant neop lasm of Oncology 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 overlapping sit es of urinary organs (Primary Dx) 12/24/2021 Orders Only Genitourinary Jaelyn, Primary urothe lial Oncology MD Dante carcinoma of overlapping les ion of urinary organ ( Primary Dx) 12/24/2021 Orders Only Genitourinary Keyon Benavides Malignant cristina plasm of Oncology K overlapping sit es of urinary organs (Primary Dx) 12/16/2021 Hospital Encounter Lab BarbarapCorinma, Hyperkale benito 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 12/16/2021 Infusion Infusion Services Utiraisp, Joma, Malignant neoplasm of overlapping sites of urinary organs (Primary Dx); 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 Personal histor y of malignant neoplasm of bladder 12/16/2021 Office Visit Genitourinary Jaelyn Malignant neop lasm of overlapping sites of urinary organs (Primary Dx); Oncology MD Dante Personal histor y of malignant neoplasm of bladder; Hyperkalemia; Secondary malig nant neoplasm of bone 12/16/2021 Documentation Genitourinary Jaelyn, Oncology MD Dante 12/16/2021 Orders Only Genitourinary David Lilibeth Oncology K, [facility] 12/16/2021 Travel 12/15/2021 Hospital Encounter Radiology Lucille Cunningham P A Personal history of malignant neoplasm o f bladder (Primary Dx); Kelly, Nephrostomy; MD Pillo 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 12/15/2021 Travel 12/07/2021 Orders Only Radiology Swapna Trejo PA 11/26/2021 Orders Only Genitourinary UtiraispCorinma, Primary urothe lial Oncology 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 carcinoma of overlapping les ion of urinary organ ( Primary Dx) 11/18/2021 Infusion Infusion Services Utiraisp, Joma, Primary ur othelial carcinoma of overlapping lesion of urinary organ (Primary Dx); 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 Personal histor y of malignant neoplasm of bladder 11/18/2021 Office Visit Genitourinary Leonor Hernandez, Primary urothe lial carcinoma of overlapping lesion of urinary organ (Primary Dx); Oncology 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 Personal histor y of malignant neoplasm of bladder 11/18/2021 Ancillary Procedure Radiology Jaelyn, Primary urothelial MD Dante carcinoma of overlapping les ion of urinary organ 11/18/2021 Documentation Genitourinary Jaelyn Oncology MD Dante 11/18/2021 Orders Only Genitourinary Francisca Mccullough, Primary urot helial Oncology [facility] carcinoma of overlapping les ion of urinary organ ( Primary Dx) 11/18/2021 Travel 11/17/2021 Ancillary Procedure Radiology 11/17/2021 Ancillary Procedure Radiology 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 11/17/2021 Travel 11/04/2021 Hospital Encounter Radiology Leonor Hernandez, Primary u rothelial 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 carcinoma of AhrJoel gillespie, overlapping l esion of MD urinary organ 11/04/2021 Travel 11/03/2021 Orders Only Radiology Silvina Morin PA 10/22/2021 Orders Only Genitourinary Keyon Benavides Primary uroth elial Oncology K carcinoma of overlapping les ion of urinary organ ( Primary Dx) 10/22/2021 Orders Only Genitourinary Leonor Hernandez, Primary urothe lial Oncology 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 carcinoma of overlapping les ion of urinary organ ( Primary Dx) 10/22/2021 Travel 10/21/2021 Hospital Encounter Vascular Access and Aljeremias, Procedures MD Bryant Howell Maria Angelina S, RN 10/21/2021 Infusion Infusion Services Leonor Hernandez, Primary ur othelial carcinoma of overlapping lesion of urinary organ (Primary Dx); 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 Personal histor y of malignant neoplasm of bladder 10/21/2021 Hospital Encounter Vascular Access and Maurohalmiryam, Procedures MD Bryant Howell Maria Angelina S, RN 10/21/2021 Office Visit Genitourinary Aljeremias, Primary urothe lial carcinoma of overlapping lesion of urinary organ (Primary Dx); Oncology MD Dante Personal histor y of malignant neoplasm of bladder 10/21/2021 Documentation Genitourinary Jaelyn Oncology MD Dante 10/21/2021 Orders Only Radiology Altagracia Fernandez PA 10/21/2021 Orders Only Genitourinary Lilibeth Hernandez Oncology K, [facility] 10/21/2021 Travel 10/14/2021 Office Visit Genitourinary Jaelyn, Primary urothe lial Oncology MD Dante carcinoma of overlapping les ion of urinary organ 10/14/2021 Documentation Genitourinary Arvind Christy MD 10/14/2021 Travel 10/13/2021 Orders Only Genitourinary Leonor Hernandez, Primary urothe lial Oncology 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 carcinoma of overlapping les ion of urinary organ ( Primary Dx) 10/13/2021 Orders Only Genitourinary Leonor Hernandez, Primary urothe lial Oncology 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 carcinoma of overlapping les ion of urinary organ ( Primary Dx) 10/08/2021 Clinical Support Genitourinary Leonor Hernandez, Primary ur othelial Oncology 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 carcinoma of Saunders, overlapping les ion of Kim urinary organ TASHI Thapa 10/08/2021 Office Visit Genitourinary Jaelyn Primary urothe lial Oncology MD Dante carcinoma of UthupLeonor, overlapping les ion of 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 urinary organ 10/08/2021 Documentation Genitourinary Arvind Christy MD 10/08/2021 Travel 10/01/2021 Orders Only Genitourinary Keyon Benavides Primary uroth elial Oncology K carcinoma of overlapping les ion of urinary organ ( Primary Dx) 09/30/2021 Clinical Support Genitourinary Leonor Hernandez, Primary ur othelial Oncology 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 carcinoma of overlapping les ion of urinary organ 09/30/2021 Office Visit Genitourinary Jaelyn Primary urothe lial Oncology MD Dante carcinoma of UtLeonor hearn, overlapping les ion of 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 urinary organ 09/30/2021 Documentation Genitourinary Arvind Christy MD 09/30/2021 Nurse Only Genitourinary Leonor Hernandez, Primary urothe lial Oncology 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 carcinoma of overlapping les ion of urinary organ ( Primary Dx) 09/30/2021 Travel 09/29/2021 Nurse Only Genitourinary Leonor Hernandez, Primary urothe lial Oncology 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 carcinoma of overlapping les ion of urinary organ ( Primary Dx) 09/25/2021 Orders Only Genitourinary Keyon Benavides Primary uroth elial Oncology K carcinoma of overlapping les ion of urinary organ ( Primary Dx) 09/25/2021 Refill Genitourinary Rafael Christy ame Oncology MD Dante 09/24/2021 Travel 09/23/2021 Hospital Encounter Vascular Access and Jaelyn, Procedures MD Peter Howell Sherry 09/23/2021 Hospital Encounter Vascular Access and Lm Christy MD Cruz, Evelyn A, RN 09/23/2021 Infusion Infusion Services UtLeonor hearn, Secondary malignant neoplasm of bone (Primary Dx); 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 Personal histor y of malignant neoplasm of bladder 09/23/2021 Office Visit Genitourinary Alhalabi, Secondary sigrid gnant neoplasm of bone (Primary Dx); Oncology MD Dante Personal histor y of malignant neoplasm of bladder 09/23/2021 Documentation Genitourinary Jaelyn Oncology MD Dante 09/23/2021 Documentation Genitourinary Jaelyn Oncology MD Dante 09/23/2021 Orders Only Genitourinary Leonor Hernandez, Primary urothe lial Oncology 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 carcinoma of overlapping les ion of urinary organ ( Primary Dx) 09/23/2021 Orders Only Genitourinary Jaelyn, Personal histo ry of Oncology MD Dante malignant neopl asm of bladder (Primar y Dx) 09/23/2021 Travel 09/23/2021 Orders Only Genitourinary Dewey Oncology Angela N 09/22/2021 Orders Only Genitourinary Keyon Benavides Primary uroth elial Oncology K carcinoma of overlapping les ion of urinary organ ( Primary Dx) 09/19/2021 Hospital Encounter Radiology Leonor Hernandez, Screening for cancer; 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 Tye Alcantar MD 09/19/2021 Hospital Encounter Lab Leonor Hernandez, Secondary malignant 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 neoplasm of bon e 09/19/2021 Travel 09/18/2021 Hospital Encounter Radiology Aljeremias, Pelvic ly mphadenopathy (Primary Dx); MD Dante 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 Tonya Hennessy PA 09/17/2021 Orders Only Genitourinary Keyon Benavides Primary uroth elial Oncology K carcinoma of overlapping les ion of urinary organ ( Primary Dx) 09/17/2021 Orders Only Genitourinary Leonor Hernandez, Secondary sigrid gnant Oncology 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 neoplasm of bon e (Primary Dx) 09/15/2021 Office Visit Genitourinary Leonor Hernandez, Screening for cancer; Oncology 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 Carson Oneill APN 09/15/2021 Hospital Encounter Radiology Zeus Locke, Lower ur inary tract infectious disease Cynthia Valadez MD 09/15/2021 Hospital Encounter Radiation Oncology Dante Christy MD 09/15/2021 Documentation Radiation Oncology Ant Sarmiento MD 09/15/2021 Travel 09/12/2021 Hospital Encounter Radiation Oncology Dante Christy MD 09/12/2021 Hospital Encounter Radiation Oncology Irvin Ordaz MD 09/12/2021 Travel 09/11/2021 Hospital Encounter Radiation Oncology Dante Christy MD 09/11/2021 Travel 09/10/2021 Hospital Encounter Radiology Leonor Hernandez, Screening for cancer; 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 09/10/2021 Hospital Encounter Cardiology Leonor Hernandez, Screening for cancer; 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 09/10/2021 Hospital Encounter Cardiology Leonor Hernandez, Screening for cancer; 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 09/10/2021 Hospital Encounter Cardiology Leonor Hernandez, Screening for cancer; 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 09/10/2021 Hospital Encounter Radiation Oncology Dante Christy MD 09/10/2021 Travel 09/10/2021 Orders Only Radiology Vick Jorge PA 09/09/2021 Hospital Encounter Radiation Oncology Dante Christy MD 09/09/2021 Travel 09/03/2021 Orders Only Genitourinary Arvind Christy MD 09/03/2021 Documentation Genitourinary Arvind Christy MD 09/03/2021 Orders Only Genitourinary Leonor Hernandez, Primary urothe lial carcinoma of overlapping lesion of urinary organ (Primary Dx); Oncology 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 Screening for c ancer 09/02/2021 Documentation Genitourinary Arvind Christy MD 09/02/2021 Documentation Radiation Oncology Ant Sarmiento MD 09/01/2021 Hospital Encounter Radiation Oncology Ant Sarmiento MD 09/01/2021 Hospital Encounter Radiation Oncology Ant Sarmiento P rimary urothelial carcinoma of overlapping les ion of urinary organ 09/01/2021 Documentation Radiation Oncology Ant Sarmiento MD 09/01/2021 Documentation Radiation Oncology Ant Sarmiento MD 09/01/2021 Travel 08/26/2021 Orders Only Radiation Oncology Crabtrey, Primary u rothelial Amee, BATTERBOARD SETTER carcinoma of overlapping les ion of urinary organ ( Primary Dx) 08/21/2021 Orders Only Radiation Oncology Crabtrey, Primary u rothelial Amee, BATTERBOARD SETTER carcinoma of overlapping les ion of urinary organ ( Primary Dx) 08/19/2021 Office Visit Genitourinary Alhalabi, Secondary sigrid gnant neoplasm of bone (Primary Dx); Oncology MD Dante 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; 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 08/19/2021 Ancillary Procedure Radiology Leonor Hernandez, 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 08/19/2021 Hospital Encounter Lab Leonor Hernandez, Primary u rothelial 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 carcinoma of overlapping les ion of urinary organ 08/19/2021 Ancillary Procedure Radiology Leonor Hernandez, Primary urothelial 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 carcinoma of overlapping les ion of urinary organ 08/19/2021 Hospital Encounter Radiology Leonor Hernandez, Primary u rothelial 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 carcinoma of overlapping les ion of urinary organ 08/19/2021 Travel 08/05/2021 Infusion Infusion Services Leonor Hernandez, Primary ur othelial carcinoma of overlapping lesion of urinary organ (Primary Dx); 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 Secondary malignant neoplasm of bone; Angi, Personal histor y of malignant neoplasm of bladder Malinda Kim RN 08/05/2021 Office Visit Genitourinary Alhalabi, Primary urothe lial carcinoma of overlapping lesion of urinary organ (Primary Dx); Oncology MD Dante Secondary malig nant neoplasm of bone; Personal histor y of malignant neoplasm of bladder 08/05/2021 Hospital Encounter Lab Leonor Hernandez, Primary u rothelial 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 carcinoma of overlapping les ion of urinary organ 08/05/2021 Travel 07/24/2021 Orders Only Genitourinary Leonor Hernandez, Oncology 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 07/22/2021 Infusion Infusion Services Leonor Hernandez, Primary ur othelial 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 carcinoma of overlapping les ion of urinary organ ( Primary Dx) 07/22/2021 Telemedicine Genitourinary Jaelyn, Primary urothe lial Oncology MD Dante carcinoma of overlapping les ion of urinary organ 07/22/2021 Hospital Encounter Lab Leonor Hernandez, Primary u rothelial 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 carcinoma of overlapping les ion of urinary organ 07/22/2021 Orders Only Genitourinary Irvin Leyva Oncology [facility] 07/22/2021 Travel 07/15/2021 Nutrition Nutrition Betancourt, Early satiety Rosa Isela, 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 Sara Alba, RD 07/08/2021 Office Visit Genitourinary Jaelyn Primary urothe lial Oncology MD Dante carcinoma of overlapping les ion of urinary organ ( Primary Dx) 07/08/2021 Hospital Encounter Lab Quintin, Secondary malignant neoplasm of bone; Ale, Personal histor y of malignant neoplasm of bladder; 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 07/08/2021 Infusion Infusion Services Leonor Hernandez, Primary ur othelial carcinoma of overlapping lesion of urinary organ (Primary Dx); 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 Secondary malig nant neoplasm of bone; Personal histor y of malignant neoplasm of bladder 07/08/2021 Orders Only Genitourinary Leonor Hernandez, Oncology 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 07/08/2021 Travel 06/24/2021 Infusion Infusion Services Jaelyn Primary ur othelial MD Dante carcinoma of Sebastian, overlapping les ion of Tanya, RN urinary organ ( Primary Dx) 06/24/2021 Telemedicine Genitourinary Jaelyn Primary urothe [place]abar[place] Oncology MD Dante carcinoma of overlapping les ion of urinary organ ( Primary Dx) 06/24/2021 Hospital Encounter Lab Jaelyn Primary u jean-pierreelial MD Dante carcinoma of overlapping les ion of urinary organ 06/24/2021 Orders Only [facility]itourinary [facility] Travel 06/18/2021 Ancillary Procedure Radiology Rolan, Cancer MD Bob 06/15/2021 Hospital Encounter /GI Med Mg, Primary u rothelial carcinoma of overlapping lesion of urinary organ (Primary Dx); - Tay Joshua MD Nephrostomy; 06/18/2021 Emmanuelle Sarabia Urinary tract i nfection; MD Rah Tachycardia; Milad Leukocytosis; , MD Nighat [id number] renal failure; Hydronephrosis with infection; Other mechanica l complication of nephrostomy catheter; Lower urinary t ract infectious disease; Early satiety 06/15/2021 Travel 06/10/2021 Infusion Infusion Services Leonor Hernandez, Primary ur othelial carcinoma of overlapping lesion of urinary organ (Primary Dx); 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 Secondary malignant neoplasm of bone; Rivka, Personal histor y of malignant neoplasm of bladder Crystal Kim RN 06/10/2021 Office Visit Genitourinary Alhalabi, Encounter for examination prior to antineoplastic chemotherapy (Primary Dx); Oncology MD Dante 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; Secondary malig nant neoplasm of bone 06/10/2021 Orders Only Genitourinary Ribeiro, Oncology CALISTA Aguilera 06/10/2021 Travel 06/07/2021 Hospital Encounter Radiology Leonor Hernandez, Secondary malignant neoplasm of bone; 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 Personal histor y of malignant neoplasm of bladder; 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 06/07/2021 Travel 06/06/2021 Ancillary Procedure Radiology Leonor Hernandez, 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 06/06/2021 Ancillary Procedure Radiology Leonor Hernandez, Secondar y malignant neoplasm of bone; 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 Personal histor y of malignant neoplasm of bladder; 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 06/06/2021 Hospital Encounter Lab Leonor Hernandez, Secondary malignant neoplasm of bone; 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 Personal histor y of malignant neoplasm of bladder; 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 06/06/2021 Travel 05/27/2021 Infusion Infusion Services Leonor Hernandez, Primary ur othelial carcinoma of overlapping lesion of urinary organ (Primary Dx); 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 Secondary malignant neoplasm of bone; Mary Lou Junior Personal histor y of malignant neoplasm of bladder Asiya Quiles RN 05/27/2021 Telemedicine Genitourinary Alhalabi, Overlapping le avelino of bladder cancer (Primary Dx); Oncology MD Dante 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 05/27/2021 Hospital Encounter Lab Leonor Hernandez, Primary u rothelial 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 carcinoma of overlapping les ion of urinary organ 05/27/2021 Orders Only Genitourinary Ribeiro, Secondary sigrid gnant neoplasm of bone (Primary Dx); Oncology Ale, Personal histor y of malignant neoplasm of bladder 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 05/27/2021 Orders Only Genitourinary David Lilibeth Oncology K, [facility] 05/27/2021 Travel 05/15/2021 Orders Only Radiology Baylee Merida PA 05/13/2021 Infusion Infusion Services Leonor Hernandez, Primary ur othelial 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 carcinoma of overlapping les ion of urinary organ ( Primary Dx) 05/13/2021 Office Visit Genitourinary Alhalabi, Secondary sigrid gnant neoplasm of bone (Primary Dx); Oncology MD Dante Personal histor y of malignant neoplasm of bladder; 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 05/13/2021 Hospital Encounter Lab David Leonor, Primary u rothelial 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 carcinoma of overlapping les ion of urinary organ 05/13/2021 Travel after 05/01/2021 Immunizations Name Administration Dates Next Due Pfizer SARS-CoV-2 Vaccination (Purple 12/15/2020, , 04/06/2020 Cap) Surgical History Surgery Date Site/Laterality Comments COLONOSCOPY 03/08/2017 - test 03/07/2018 AR CYSTO W/REMOVAL OF 12/07/2019 Genitalia/N/A Procedure: CYSTOURETHROSCOPY LESIONS SMALL WITH FULGURATION ; Surgeon: Brigitte Bal; Location: MAIN OR; Service : UROLOGY AR INSJ TUNNELED CTR VAD 12/29/2019 Neck/Right Procedu re: PORT-A-CATH W/SUBQ PORT AGE 3 YR/> PLACEMENT ; Surgeon: Chaparro Reddy MD; Loca tion: [facility]; Service: [facility] G ONC - GENERAL Medical devices from this surgery are in t he Medical Devices section. AR FLUORO CENTRAL VENOUS 12/29/2019 Neck/N/A Procedu re: FLUORO GUIDANCE ACCESS DEV PLACEMENT FOR CENTRAL VENOUS ACCESS DEVICE PLACEMENT , REPLACEMENT, OR REMOVAL; Surgeon: Chaparro love MD; Location: [facility]; Service: SURG ONC - GENER AL Medical devices from this surgery are in t he Medical Devices section. AR US VASC ACCESS SITS 12/29/2019 N/A Procedure : US GUIDANCE WITH VSL PATENCY NDL ENTRY EVAL OF PO TENTIAL ACCESS SITES, REALTIME US VISUALIZATION OF VASC NEEDLE ENTRY; Surgeon: Chaparro Reddy MD; Location: [facility] OR; Service: SURG ON C - GENERAL Medical devices from this surgery are in t he Medical Devices section. 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 Difficulty speaking 1999 shaky Swallowing problem 1999 cough sometimes Asthma 1954 Dependence on continuous positive airway pressure ventilatio n 1999 sleep apnea Polyp of colon 2018 2-precancerous History of recurrent urinary tract infection 2019 Benign prostatic hyperplasia 2018 Sleep apnea Cancer Gastroesophageal reflux disease Hypertension Family History Medical History Relation Name Comments Stroke Father Cancer Neg Hx Relation Name Status Comments Father Social History Tobacco Use Types Packs/Day Years Used Date Smoking Tobacco: Former Cigarettes 1.5 40 03/1964 - 03/08/2004 Cigars Smokeless Tobacco: Former Snuff Qu it: 03/08/2017 Tobacco Cessation: Counseling Given: Not Answered Alcohol Use Standard Drinks/Week Comments Not Currently 0 (1 standard drink = 0.6 oz pure quit 2 beers per day 10 weeks ago alcohol) Sex Assigned at Date Recorded Male 11/22/2019 10:15 AM CDT Job Start Date Occupation Industry Not on file Not on file Not on file COVID-19 Exposure Response Date Recorded In the last 10 days, have you been in contact with No / Unsu re 04/29/2022 12:45 PM [employer]IPMENT TENDER someone who was confirmed or suspected to have Coronavirus/COVID-19? Obstetrics History Last Filed Vital Signs Vital Sign Reading Time Taken Comments Blood Pressure 104/66 04/29/2022 1:51 PM [employer] EQUIPMENT TENDER Pulse 89 04/29/2022 1:51 PM [employer] E[employer]IPMENT TENDER Temperature 36.4 C (97.5 F) 04/29/2022 1:51 PM [employer] TENDER Respiratory Rate 16 04/29/2022 1:51 PM [employer] EQU[employer]MENT TENDER Oxygen Saturation 97% 04/24/2022 12:49 PM [employer] T[employer]ER Inhaled Oxygen Concentration - - Weight 74 kg (163 lb 2.3 oz) 04/18/2022 1:58 PM [employer] E[employer]IPMENT TENDER Height 175.3 cm (5' 9.02") 04/17/2022 10:28 AM [employer]MENT TENDER Body Mass Index 24.08 04/17/2022 10:28 AM [employer]IPMENT TENDER Plan of Treatment Date Type Specialty Care Team Description 05/02/2022 Appointment Lab Dante Christy MD [address] [place], [place] [address] (Wo rk) 05/02/2022 Hospital Encounter Infusion Services Yamel Christy MD [address] [place], [place] [address] (Wo rk) 06/12/2022 Appointment Radiology Rubén Garcia MD [address] [place], [place] [address] (Wo rk) 06/15/2022 Lab Lab Carina Edmondson P A [address] [place], [place] [address] (Wo rk) 06/15/2022 Ancillary Procedure Radiology Annamarie Edmondson PA [address] [place], [place] [address] (Wo rk) 06/16/2022 Follow-Up Genitourinary Oncology Dante Christy MD [address] [place], [place] [address] (Wo rk) Health Maintenance Due Date Last Done Comments COVID-19 Vaccination (4 - Booster 02/09/2021 12/15/2020, , for Pfizer series) 04/06/2020 Medical Devices Implanted Type Area Crime Lab Technician Device Shelf Model / Identifier Expiration Serial / Date Lot Pin Pin Right: Ankle [place], Clearvue Slim 6fr - [id number] Port Right: BARD PERIP HERAL 01/05/2021 [id number] / Implanted: Qty: 1 on 12/29/2019 by Chaparro Reddy MD at [facility] Chest VASCULAR / [id number] Description: CATHETER LENGTH - 27 CM Procedures Procedure Name Priority Date/Time Associated Diagnosis Comme nts MANUAL DIFFERENTIAL Routine 04/24/2022 Malignant neoplasm of Results for 12:32 PM [employer] T[employer]ER overlapping sites of this pr ocedure urinary organs are in the results section. Results CBC Routine 04/24/2022 Malignant neoplasm of Result s for 12:32 PM [employer] T[employer]ER overlapping sites of this pr ocedure urinary organs are in the results section. FRACTIONATED BILIRUBIN Routine 04/24/2022 Malignant neoplasm of Results for 12:32 PM [employer] E[employer]IP[employer] T[employer]ER overlapping sites of this pr ocedure urinary organs are in the results section. TOTAL PROTEIN Routine 04/24/2022 Malignant neoplasm of Resul ts for 12:32 PM [employer]IP[employer] TENDER overlapping sites of this pr ocedure urinary organs are in the results section. ASPARTATE Routine 04/24/2022 Malignant neoplasm of Result s for AMINOTRANSFERASE 12:32 PM [employer] T[employer]ER overlapping sites of thi s procedure urinary organs are in the results section. ALANINE AMINOTRANSFERASE Routine 04/24/2022 Malignant neopla sm of Results for 12:32 PM [employer] E[employer]IPMENT TENDER overlapping sites of this pr ocedure urinary organs are in the results section. ALKALINE PHOSPHATASE Routine 04/24/2022 Malignant neoplasm o f Results for 12:32 PM [employer]IPMENT TENDER overlapping sites of this pr ocedure urinary organs are in the results section. ALBUMIN LEVEL Routine 04/24/2022 Malignant neoplasm of Resul ts for 12:32 PM [employer]IPMENT TENDER overlapping sites of this pr ocedure urinary organs are in the results section. CALCIUM LEVEL TOTAL Routine 04/24/2022 Malignant neoplasm of Results for 12:32 PM [employer] E[employer]IPMENT TENDER overlapping sites of this pr ocedure urinary organs are in the results section. .GLOMERULAR FILTRATION Routine 04/24/2022 Malignant neoplasm of Results for RATE 12:32 PM [employer]IPMENT TENDER overlapping sites of this pr ocedure urinary organs are in the results section. SERUM CREATININE Routine 04/24/2022 Malignant neoplasm of Re sults for 12:32 PM [employer] E[employer]IPMENT TENDER overlapping sites of this pr ocedure urinary organs are in the results section. ELECTROLYTE PANEL Routine 04/24/2022 Malignant neoplasm of R esults for 12:32 PM [employer] E[employer]IPMENT TENDER overlapping sites of this pr ocedure urinary organs are in the results section. BLOOD UREA NITROGEN Routine 04/24/2022 Malignant neoplasm of Results for 12:32 PM [employer] E[employer]IPMENT TENDER overlapping sites of this pr ocedure urinary organs are in the results section. GLUCOSE LEVEL Routine 04/24/2022 Malignant neoplasm of Resul ts for 12:32 PM [employer] E[employer]IPMENT TENDER overlapping sites of this pr ocedure urinary organs are in the results section. THYROID STIMULATING Routine 04/24/2022 Primary urothelial Re sults for HORMONE 12:32 PM [employer] TENDER carcinoma of this procedure overlapping lesion of are in the urinary organ results section. FREE THYROXINE Routine 04/24/2022 Primary urothelial Results for 12:32 PM [employer]IPMENT TENDER carcinoma of this procedure overlapping lesion of are in the urinary organ results section. COMPLETE BLOOD COUNT W/ Routine 04/24/2022 Primary urothelia l DIFFERENTIAL 12:32 PM [employer]IPMENT TENDER carcinoma of overlapping lesion of urinary organ COMPREHENSIVE METABOLIC Routine 04/24/2022 Primary urothelia l PANEL 12:32 PM [employer]IPMENT TENDER carcinoma of overlapping lesion of urinary organ MANUAL DIFFERENTIAL Routine 04/17/2022 Malignant neoplasm of Results for 10:09 AM [employer] E[employer]IPMENT TENDER overlapping sites of this pr ocedure urinary organs are in the results section. Results CBC Routine 04/17/2022 Malignant neoplasm of Result s for 10:09 AM [employer] E[employer]IPMENT TENDER overlapping sites of this pr ocedure urinary organs are in the results section. FRACTIONATED BILIRUBIN Routine 04/17/2022 Malignant neoplasm of Results for 10:09 AM [employer] E[employer]IPMENT TENDER overlapping sites of this pr ocedure urinary organs are in the results section. TOTAL PROTEIN Routine 04/17/2022 Malignant neoplasm of Resul ts for 10:09 AM [employer] E[employer]IPMENT TENDER overlapping sites of this pr ocedure urinary organs are in the results section. ASPARTATE Routine 04/17/2022 Malignant neoplasm of Result s for AMINOTRANSFERASE 10:09 AM [employer] E[employer]IPMENT TENDER overlapping sites of thi s procedure urinary organs are in the results section. ALANINE AMINOTRANSFERASE Routine 04/17/2022 Malignant neopla sm of Results for 10:09 AM [employer] E[employer]IPMENT TENDER overlapping sites of this pr ocedure urinary organs are in the results section. ALKALINE PHOSPHATASE Routine 04/17/2022 Malignant neoplasm o f Results for 10:09 AM [employer] E[employer]IPMENT TENDER overlapping sites of this pr ocedure urinary organs are in the results section. ALBUMIN LEVEL Routine 04/17/2022 Malignant neoplasm of Resul ts for 10:09 AM [employer] E[employer]IPMENT TENDER overlapping sites of this pr ocedure urinary organs are in the results section. CALCIUM LEVEL TOTAL Routine 04/17/2022 Malignant neoplasm of Results for 10:09 AM [employer] E[employer]IPMENT TENDER overlapping sites of this pr ocedure urinary organs are in the results section. .GLOMERULAR FILTRATION Routine 04/17/2022 Malignant neoplasm of Results for RATE 10:09 AM [employer] E[employer]IPMENT TENDER overlapping sites of this pr ocedure urinary organs are in the results section. SERUM CREATININE Routine 04/17/2022 Malignant neoplasm of Re sults for 10:09 AM [employer] E[employer]IPMENT TENDER overlapping sites of this pr ocedure urinary organs are in the results section. ELECTROLYTE PANEL Routine 04/17/2022 Malignant neoplasm of R esults for 10:09 AM [employer] E[employer]IPMENT TENDER overlapping sites of this pr ocedure urinary organs are in the results section. BLOOD UREA NITROGEN Routine 04/17/2022 Malignant neoplasm of Results for 10:09 AM [employer] E[employer]IPMENT TENDER overlapping sites of this pr ocedure urinary organs are in the results section. GLUCOSE LEVEL Routine 04/17/2022 Malignant neoplasm of Resul ts for 10:09 AM [employer] E[employer]IPMENT TENDER overlapping sites of this pr ocedure urinary organs are in the results section. THYROID STIMULATING Routine 04/17/2022 Primary urothelial Re sults for HORMONE 10:09 AM [employer]IPMENT TENDER carcinoma of this procedure overlapping lesion of are in the urinary organ results section. FREE THYROXINE Routine 04/17/2022 Primary urothelial Results for 10:09 AM [employer]IPMENT TENDER carcinoma of this procedure overlapping lesion of are in the urinary organ results section. COMPLETE BLOOD COUNT W/ Routine 04/17/2022 Primary urothelia l DIFFERENTIAL 10:09 AM [employer]IP[employer] TENDER carcinoma of overlapping lesion of urinary organ COMPREHENSIVE METABOLIC Routine 04/17/2022 Primary urothelia l PANEL 10:09 AM [employer] E[employer]IP[employer] TENDER carcinoma of overlapping lesion of urinary organ [facility] Routine 04/15/2022 2:22 Malignant neoplasm of Re sults for PM [employer]IPMENT TENDER overlapping sites of this pr ocedure urinary organs are in the results section. GENERAL LABORATORY ADD ON STAT 04/14/2022 3:27 Primary urot helial Results for TEST PM [employer] TENDER carcinoma of this procedure overlapping lesion of are in the urinary organ results section. URINALYSIS MICROSCOPIC Routine 04/14/2022 1:07 Re sults for EXAM PM [employer]IP[employer] TENDER this procedure are in the results section. URINALYSIS WITH Routine 04/14/2022 1:07 Primary urothelial Res ults for MICROSCOPIC IF INDICATED PM [employer] T[employer]ER carcinoma of thi s procedure overlapping sites of are in the urinary organs results section. IRON LEVEL Routine 04/14/2022 1:04 Results for PM [employer] E[employer]IPMENT TENDER this procedure are in the results section. TRANSFERRIN Routine 04/14/2022 1:04 Results for PM [employer] E[employer]IPMENT TENDER this procedure are in the results section. FERRITIN LVL Routine 04/14/2022 1:04 Results for PM [employer]ING EQUIPMENT TENDER this procedure are in the results section. FRACTIONATED BILIRUBIN Routine 04/14/2022 1:04 Primary urothel ial Results for PM [employer]IP[employer] TENDER carcinoma of this procedure overlapping sites of are in the urinary organs results section. TOTAL PROTEIN Routine 04/14/2022 1:04 Primary urothelial Resul ts for PM [employer] E[employer]IPMENT TENDER carcinoma of this procedure overlapping sites of are in the urinary organs results section. ASPARTATE Routine 04/14/2022 1:04 Primary urothelial Result s for AMINOTRANSFERASE PM [employer] T[employer]ER carcinoma of this proced ure overlapping sites of are in the urinary organs results section. ALANINE AMINOTRANSFERASE Routine 04/14/2022 1:04 Primary uroth elial Results for PM [employer] E[employer]IPMENT TENDER carcinoma of this procedure overlapping sites of are in the urinary organs results section. ALKALINE PHOSPHATASE Routine 04/14/2022 1:04 Primary urothelia l Results for PM [employer] E[employer]IPMENT TENDER carcinoma of this procedure overlapping sites of are in the urinary organs results section. ALBUMIN LEVEL Routine 04/14/2022 1:04 Primary urothelial Resul ts for PM [employer] E[employer]IPMENT TENDER carcinoma of this procedure overlapping sites of are in the urinary organs results section. CALCIUM LEVEL TOTAL Routine 04/14/2022 1:04 Primary urothelial Results for PM [employer] EQUIPMENT TENDER carcinoma of this procedure overlapping sites of are in the urinary organs results section. .GLOMERULAR FILTRATION Routine 04/14/2022 1:04 Primary urothel ial Results for RATE PM [employer] E[employer]IPMENT TENDER carcinoma of this procedure overlapping sites of are in the urinary organs results section. SERUM CREATININE Routine 04/14/2022 1:04 Primary urothelial Re sults for PM [employer] E[employer]IPMENT TENDER carcinoma of this procedure overlapping sites of are in the urinary organs results section. ELECTROLYTE PANEL Routine 04/14/2022 1:04 Primary urothelial R esults for PM [employer] EQUIPMENT TENDER carcinoma of this procedure overlapping sites of are in the urinary organs results section. BLOOD UREA NITROGEN Routine 04/14/2022 1:04 Primary urothelial Results for PM [employer] E[employer]IPMENT TENDER carcinoma of this procedure overlapping sites of are in the urinary organs results section. GLUCOSE LEVEL Routine 04/14/2022 1:04 Primary urothelial Resul ts for PM [employer] E[employer]IPMENT TENDER carcinoma of this procedure overlapping sites of are in the urinary organs results section. MANUAL DIFFERENTIAL Routine 04/14/2022 1:04 Primary urothelial Results for PM [employer] E[employer]IPMENT TENDER carcinoma of this procedure overlapping sites of are in the urinary organs results section. Results CBC Routine 04/14/2022 1:04 Primary urothelial Result s for PM [employer] E[employer]IP[employer] TENDER carcinoma of this procedure overlapping sites of are in the urinary organs results section. APTT Routine 04/14/2022 1:04 Primary urothelial Result s for PM [employer]IPMENT TENDER carcinoma of this procedure overlapping sites of are in the urinary organs results section. PROTHROMBIN TIME Routine 04/14/2022 1:04 Primary urothelial Re sults for PM [employer]IPMENT TENDER carcinoma of this procedure overlapping sites of are in the urinary organs results section. LIPID PANEL Routine 04/14/2022 1:04 Primary urothelial Result s for PM [employer]IP[employer] TENDER carcinoma of this procedure overlapping sites of are in the urinary organs results section. COMPREHENSIVE METABOLIC Routine 04/14/2022 1:04 Primary urothe lial PANEL PM [employer]IP[employer] TENDER carcinoma of overlapping sites of urinary organs COMPLETE BLOOD COUNT W/ Routine 04/14/2022 1:04 Primary urothe lial DIFFERENTIAL PM [employer]IP[employer] TENDER carcinoma of overlapping sites of urinary organs CT CHEST ABDOMEN PELVIS W Routine 04/14/2022 Primary urothel ial Results for CONTRAST 12:40 PM [employer]IPMENT TENDER carcinoma of this procedure overlapping sites of are in the urinary organs results section. IR NEPHROSTOMY EXCHANGE Routine 04/13/2022 2:31 Primary urothe lial Results for 60 PM [employer]IPMENT TENDER carcinoma of this procedure overlapping sites of are in the urinary organs results section. CALCIUM LEVEL TOTAL Routine 04/08/2022 1:27 Malignant neoplasm of Results for PM [employer]IP[employer] TENDER overlapping sites of this pr ocedure urinary organs are in the results section. .GLOMERULAR FILTRATION Routine 04/08/2022 1:27 Malignant neopl asm of Results for RATE PM [employer]IP[employer] TENDER overlapping sites of this pr ocedure urinary organs are in the results section. SERUM CREATININE Routine 04/08/2022 1:27 Malignant neoplasm of Results for PM [employer]IP[employer] TENDER overlapping sites of this pr ocedure urinary organs are in the results section. ELECTROLYTE PANEL Routine 04/08/2022 1:27 Malignant neoplasm o f Results for PM [employer]IP[employer] TENDER overlapping sites of this pr ocedure urinary organs are in the results section. BLOOD UREA NITROGEN Routine 04/08/2022 1:27 Malignant neoplasm of Results for PM [employer]IPMENT TENDER overlapping sites of this pr ocedure urinary organs are in the results section. GLUCOSE LEVEL Routine 04/08/2022 1:27 Malignant neoplasm of Re sults for PM [employer]IP[employer] TENDER overlapping sites of this pr ocedure urinary organs are in the results section. FIBRINOGEN ACTIVITY Routine 04/08/2022 1:27 Primary urothelial Results for PM [employer] T[employer]ER carcinoma of this procedure overlapping lesion of are in the urinary organ results section. APTT Routine 04/08/2022 1:27 Primary urothelial Result s for PM [employer]IP[employer] T[employer]ER carcinoma of this procedure overlapping lesion of are in the urinary organ results section. PROTHROMBIN TIME Routine 04/08/2022 1:27 Primary urothelial Re sults for PM [employer] T[employer]ER carcinoma of this procedure overlapping lesion of are in the urinary organ results section. BASIC METABOLIC PANEL, Routine 04/08/2022 1:27 Primary urothel ial CALCIUM TOTAL PM [employer] T[employer]ER carcinoma of overlapping lesion of urinary organ URINALYSIS MICROSCOPIC Routine 04/06/2022 6:31 Re sults for EXAM PM [employer]IP[employer] TENDER this procedure are in the results section. URINALYSIS WITH Routine 04/06/2022 6:31 Results f or MICROSCOPIC IF INDICATED PM [employer]IP[employer] TENDER thi s procedure are in the results section. URINE CULTURE Routine 04/06/2022 6:31 Results for PM [employer]IPMENT TENDER this procedure are in the results section. US RENAL Routine 04/06/2022 5:19 Results for PM [employer]IP[employer] TENDER this procedure are in the results section. URINE CULTURE Routine 04/06/2022 4:56 Results for PM [employer]IPMENT TENDER this procedure are in the results section. URINE CULTURE Routine 04/06/2022 4:56 Results for PM [employer]IPMENT TENDER this procedure are in the results section. URINALYSIS MICROSCOPIC Routine 04/06/2022 4:31 Re sults for EXAM PM [employer]IPMENT TENDER this procedure are in the results section. URINALYSIS WITH Routine 04/06/2022 4:31 Results f or MICROSCOPIC IF INDICATED PM [employer]IPMENT TENDER thi s procedure are in the results section. FRACTIONATED BILIRUBIN Routine 04/06/2022 3:18 Re sults for PM [employer]IPMENT TENDER this procedure are in the results section. TOTAL PROTEIN Routine 04/06/2022 3:18 Results for PM [employer]IPMENT TENDER this procedure are in the results section. ASPARTATE Routine 04/06/2022 3:18 Results for AMINOTRANSFERASE PM [employer]IP[employer] TENDER this proced ure are in the results section. ALANINE AMINOTRANSFERASE Routine 04/06/2022 3:18 Results for PM [employer]IPMENT TENDER this procedure are in the results section. ALKALINE PHOSPHATASE Routine 04/06/2022 3:18 Resu lts for PM [employer]IPMENT TENDER this procedure are in the results section. ALBUMIN LEVEL Routine 04/06/2022 3:18 Results for PM [employer] E[employer]IPMENT TENDER this procedure are in the results section. CALCIUM LEVEL TOTAL Routine 04/06/2022 3:18 Resul ts for PM [employer]IPMENT TENDER this procedure are in the results section. .GLOMERULAR FILTRATION Routine 04/06/2022 3:18 Re sults for RATE PM [employer]IPMENT TENDER this procedure are in the results section. SERUM CREATININE Routine 04/06/2022 3:18 Results for PM [employer] E[employer]IPMENT TENDER this procedure are in the results section. ELECTROLYTE PANEL Routine 04/06/2022 3:18 Results for PM [employer]IPMENT TENDER this procedure are in the results section. BLOOD UREA NITROGEN Routine 04/06/2022 3:18 Resul ts for PM [employer]IP[employer] TENDER this procedure are in the results section. GLUCOSE LEVEL Routine 04/06/2022 3:18 Results for PM [employer]IP[employer] TENDER this procedure are in the results section. MANUAL DIFFERENTIAL Routine 04/06/2022 3:18 Resul ts for PM [employer]IP[employer] TENDER this procedure are in the results section. Results CBC STAT 04/06/2022 3:18 Results for PM [employer]IPMENT TENDER this procedure are in the results section. APTT Routine 04/06/2022 3:18 Results for PM [employer]IP[employer] TENDER this procedure are in the results section. PROTHROMBIN TIME Routine 04/06/2022 3:18 Results for PM [employer]IPMENT TENDER this procedure are in the results section. PHOSPHORUS LEVEL Routine 04/06/2022 3:18 Results for PM [employer] T[employer]ER this procedure are in the results section. MAGNESIUM LEVEL Routine 04/06/2022 3:18 Results f or PM [employer]IP[employer] T[employer]ER this procedure are in the results section. COMPREHENSIVE METABOLIC Routine 04/06/2022 3:18 PANEL PM [employer] COMPLETE BLOOD COUNT W/ Routine 04/06/2022 3:18 DIFFERENTIAL PM [employer] COVID-19 (SARS-COV-2) Routine 04/06/2022 3:18 Res ults for ASYMPTOMATIC-LT PM [employer] this procedu re are in the results section. NM GATED CARDIAC Routine 03/31/2022 Primary urothelial Resul ts for 12:19 PM [employer] carcinoma of this procedure overlapping sites of are in the urinary organs results section. 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 urinary organs URINE CULTURE Now 03/16/2022 Results for 11:42 AM [employer] this procedure are in the results section. FUNGUS CULTURE W/ SMEAR Now 03/16/2022 Resu lts for 11:42 AM [employer] this procedure are in the results section. AFB CULTURE W/ SMEAR Now 03/16/2022 11:42 AM [employer] COVID-19 (SARS-COV-2) Routine 03/14/2022 2:28 Suspected COVID- 19 Results for PCR-ASYMPTOMATIC MC PM [employer] this pro cedure are in the results section. [employer] Routine 03/12/2022 9:31 Primary urothelial Resul ts for AM [employer] carcinoma of this procedure overlapping sites of are in the urinary organs results section. CT CHEST ABDOMEN PELVIS W Routine 03/10/2022 2:30 Malignant ne oplasm of Results for CONTRAST PM [employer] overlapping sites of this pr ocedure urinary organs are in the results section. URINALYSIS MICROSCOPIC Routine 03/10/2022 Resul ts for EXAM 12:53 PM [employer] this procedure are in the results section. URINALYSIS WITH Routine 03/10/2022 Malignant neoplasm of Res ults for MICROSCOPIC IF INDICATED 12:53 PM [employer] overlapping site s of this procedure urinary organs are in the results section. FRACTIONATED BILIRUBIN Routine 03/10/2022 Malignant neoplasm of Results for 12:52 PM [employer] overlapping sites of this pr ocedure urinary organs are in the results section. TOTAL PROTEIN Routine 03/10/2022 Malignant neoplasm of Resul ts for 12:52 PM [employer] overlapping sites of this pr ocedure urinary organs are in the results section. ASPARTATE Routine 03/10/2022 Malignant neoplasm of Result s for AMINOTRANSFERASE 12:52 PM [employer] overlapping sites of thi s procedure urinary organs are in the results section. ALANINE AMINOTRANSFERASE Routine 03/10/2022 Malignant neopla sm of Results for 12:52 PM [employer] overlapping sites of this pr ocedure urinary organs are in the results section. ALKALINE PHOSPHATASE Routine 03/10/2022 Malignant neoplasm o f Results for 12:52 PM [employer] overlapping sites of this pr ocedure urinary organs are in the results section. ALBUMIN LEVEL Routine 03/10/2022 Malignant neoplasm of Resul ts for 12:52 PM [employer] overlapping sites of this pr ocedure urinary organs are in the results section. CALCIUM LEVEL TOTAL Routine 03/10/2022 Malignant neoplasm of Results for 12:52 PM [employer] overlapping sites of this pr ocedure urinary organs are in the results section. .GLOMERULAR FILTRATION Routine 03/10/2022 Malignant neoplasm of Results for RATE 12:52 PM [employer] overlapping sites of this pr ocedure urinary organs are in the results section. SERUM CREATININE Routine 03/10/2022 Malignant neoplasm of Re sults for 12:52 PM [employer] overlapping sites of this pr ocedure urinary organs are in the results section. ELECTROLYTE PANEL Routine 03/10/2022 Malignant neoplasm of R esults for 12:52 PM [employer] overlapping sites of this pr ocedure urinary organs are in the results section. BLOOD UREA NITROGEN Routine 03/10/2022 Malignant neoplasm of Results for 12:52 PM [employer] overlapping sites of this pr ocedure urinary organs are in the results section. GLUCOSE LEVEL Routine 03/10/2022 Malignant neoplasm of Resul ts for 12:52 PM [employer] overlapping sites of this pr ocedure urinary organs are in the results section. MANUAL DIFFERENTIAL Routine 03/10/2022 Malignant neoplasm of Results for 12:52 PM [employer] overlapping sites of this pr ocedure urinary organs are in the results section. Results CBC Routine 03/10/2022 Malignant neoplasm of Result s for 12:52 PM [employer] overlapping sites of this pr ocedure urinary organs are in the results section. FREE THYROXINE Routine 03/10/2022 Malignant neoplasm of Resu lts for 12:52 PM [employer] overlapping sites of this pr ocedure urinary organs are in the results section. FREE T3 Routine 03/10/2022 Malignant neoplasm of Result s for 12:52 PM [employer] overlapping sites of this pr ocedure urinary organs are in the results section. THYROID STIMULATING Routine 03/10/2022 Malignant neoplasm of Results for HORMONE 12:52 PM [employer] overlapping sites of this pr ocedure urinary organs are in the results section. APTT Routine 03/10/2022 Malignant neoplasm of Result s for 12:52 PM [employer] overlapping sites of this pr ocedure urinary organs are in the results section. PROTHROMBIN TIME Routine 03/10/2022 Malignant neoplasm of Re sults for 12:52 PM [employer] overlapping sites of this pr ocedure urinary organs are in the results section. URIC ACID Routine 03/10/2022 Malignant neoplasm of Result s for 12:52 PM [employer] overlapping sites of this pr ocedure urinary organs are in the results section. LACTATE DEHYDROGENASE Routine 03/10/2022 Malignant neoplasm of Results for 12:52 PM [employer] overlapping sites of this pr ocedure urinary organs are in the results section. PHOSPHORUS LEVEL Routine 03/10/2022 Malignant neoplasm of Re sults for 12:52 PM [employer] overlapping sites of this pr ocedure urinary organs are in the results section. MAGNESIUM LEVEL Routine 03/10/2022 Malignant neoplasm of Res ults for 12:52 PM [employer] overlapping sites of this pr ocedure urinary organs are in the results section. 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 URINALYSIS MICROSCOPIC Routine 02/10/2022 Resul ts for 12:19 PM [employer] this procedure are in the results section. FRACTIONATED BILIRUBIN Routine 02/10/2022 Primary urothelial Results for 12:19 PM [employer] carcinoma of this procedure overlapping sites of are in the urinary organs results section. TOTAL PROTEIN Routine 02/10/2022 Primary urothelial Results for 12:19 PM [employer] carcinoma of this procedure overlapping sites of are in the urinary organs results section. ASPARTATE Routine 02/10/2022 Primary urothelial Results f or AMINOTRANSFERASE 12:19 PM [employer] carcinoma of this proced ure overlapping sites of are in the urinary organs results section. ALANINE AMINOTRANSFERASE Routine 02/10/2022 Primary urotheli al Results for 12:19 PM [employer] carcinoma of this procedure overlapping sites of are in the urinary organs results section. ALKALINE PHOSPHATASE Routine 02/10/2022 Primary urothelial R esults for 12:19 PM [employer] carcinoma of this procedure overlapping sites of are in the urinary organs results section. ALBUMIN LEVEL Routine 02/10/2022 Primary urothelial Results for 12:19 PM [employer] carcinoma of this procedure overlapping sites of are in the urinary organs results section. CALCIUM LEVEL TOTAL Routine 02/10/2022 Primary urothelial Re sults for 12:19 PM [employer] carcinoma of this procedure overlapping sites of are in the urinary organs results section. .GLOMERULAR FILTRATION Routine 02/10/2022 Primary urothelial Results for RATE 12:19 PM [employer] carcinoma of this procedure overlapping sites of are in the urinary organs results section. SERUM CREATININE Routine 02/10/2022 Primary urothelial Resul ts for 12:19 PM [employer] carcinoma of this procedure overlapping sites of are in the urinary organs results section. ELECTROLYTE PANEL Routine 02/10/2022 Primary urothelial Resu lts for 12:19 PM [employer] carcinoma of this procedure overlapping sites of are in the urinary organs results section. BLOOD UREA NITROGEN Routine 02/10/2022 Primary urothelial Re sults for 12:19 PM [employer] carcinoma of this procedure overlapping sites of are in the urinary organs results section. GLUCOSE LEVEL Routine 02/10/2022 Primary urothelial Results for 12:19 PM [employer] carcinoma of this procedure overlapping sites of are in the urinary organs results section. MANUAL DIFFERENTIAL Routine 02/10/2022 Primary urothelial Re sults for 12:19 PM [employer] carcinoma of this procedure overlapping sites of are in the urinary organs results section. Results CBC Routine 02/10/2022 Primary urothelial Results f or 12:19 PM [employer] carcinoma of this procedure overlapping sites of are in the urinary organs results section. URINALYSIS WITH Routine 02/10/2022 Primary urothelial Result s for MICROSCOPIC IF INDICATED 12:19 PM [employer] carcinoma of thi s procedure overlapping sites of are in the urinary organs results section. FREE THYROXINE Routine 02/10/2022 Primary urothelial Results for 12:19 PM [employer] carcinoma of this procedure overlapping sites of are in the urinary organs results section. FREE T3 Routine 02/10/2022 Primary urothelial Results f or 12:19 PM [employer] carcinoma of this procedure overlapping sites of are in the urinary organs results section. THYROID STIMULATING Routine 02/10/2022 Primary urothelial Re sults for HORMONE 12:19 PM [employer] carcinoma of this procedure overlapping sites of are in the urinary organs results section. APTT Routine 02/10/2022 Primary urothelial Results f or 12:19 PM [employer] carcinoma of this procedure overlapping sites of are in the urinary organs results section. PROTHROMBIN TIME Routine 02/10/2022 Primary urothelial Resul ts for 12:19 PM [employer] carcinoma of this procedure overlapping sites of are in the urinary organs results section. URIC ACID Routine 02/10/2022 Primary urothelial Results f or 12:19 PM [employer] carcinoma of this procedure overlapping sites of are in the urinary organs results section. LACTATE DEHYDROGENASE Routine 02/10/2022 Primary urothelial Results for 12:19 PM [employer] carcinoma of this procedure overlapping sites of are in the urinary organs results section. PHOSPHORUS LEVEL Routine 02/10/2022 Primary urothelial Resul ts for 12:19 PM [employer] carcinoma of this procedure overlapping sites of are in the urinary organs results section. MAGNESIUM LEVEL Routine 02/10/2022 Primary urothelial Result s for 12:19 PM [employer] carcinoma of this procedure overlapping sites of are in the urinary organs results section. COMPREHENSIVE METABOLIC Routine 02/10/2022 Primary urothelia l PANEL 12:19 PM [employer] carcinoma of overlapping sites of urinary organs COMPLETE BLOOD COUNT W/ Routine 02/10/2022 Primary urothelia l DIFFERENTIAL 12:19 PM [employer] carcinoma of overlapping sites of urinary organs URINALYSIS MICROSCOPIC Routine 02/04/2022 2:53 Re sults for PM [employer] this procedure are in the results section. URINALYSIS WITH Routine 02/04/2022 2:53 Primary urothelial Res ults for MICROSCOPIC IF INDICATED PM [employer] carcinoma of thi s procedure overlapping lesion of are in the urinary organ results section. URINE CULTURE Routine 02/04/2022 2:53 Primary urothelial Resul ts for PM [employer] carcinoma of this procedure overlapping lesion of are in the urinary organ results section. NM BONE SCAN WHOLE BODY Routine 01/23/2022 2:59 Malignant neop lasm of Results for PM [employer] overlapping sites of this pr ocedure urinary organs are in the results section. XR HIP 2 VW BILATERAL W Routine 01/23/2022 Malignant neoplas m of Results for PELVIS 12:44 PM [employer] overlapping sites of this pr ocedure urinary organs are in the results section. [employer] Routine 01/13/2022 2:02 Primary urothelial Resul ts for PM [employer] carcinoma of this procedure overlapping sites of are in the urinary organs results section. CT CHEST ABDOMEN PELVIS W Routine 01/09/2022 1:56 Malignant ne oplasm of Results for CONTRAST PM CDT overlapping sites of this pr ocedure urinary organs are in the results section. URINALYSIS MICROSCOPIC Routine 01/09/2022 Resul ts for 11:25 AM CDT this procedure are in the results section. URINALYSIS WITH Routine 01/09/2022 Malignant neoplasm of Res ults for MICROSCOPIC IF INDICATED 11:25 AM CDT overlapping site s of this procedure urinary organs are in the results section. MANUAL DIFFERENTIAL Routine 01/09/2022 Malignant neoplasm of Results for 11:20 AM CDT overlapping sites of this pr ocedure urinary organs are in the results section. Results CBC Routine 01/09/2022 Malignant neoplasm of Result s for 11:20 AM CDT overlapping sites of this pr ocedure urinary organs are in the results section. FRACTIONATED BILIRUBIN Routine 01/09/2022 Malignant neoplasm of Results for 11:20 AM CDT overlapping sites of this pr ocedure urinary organs are in the results section. TOTAL PROTEIN Routine 01/09/2022 Malignant neoplasm of Resul ts for 11:20 AM CDT overlapping sites of this pr ocedure urinary organs are in the results section. ASPARTATE Routine 01/09/2022 Malignant neoplasm of Result s for AMINOTRANSFERASE 11:20 AM CDT overlapping sites of thi s procedure urinary organs are in the results section. ALANINE AMINOTRANSFERASE Routine 01/09/2022 Malignant neopla sm of Results for 11:20 AM CDT overlapping sites of this pr ocedure urinary organs are in the results section. ALKALINE PHOSPHATASE Routine 01/09/2022 Malignant neoplasm o f Results for 11:20 AM CDT overlapping sites of this pr ocedure urinary organs are in the results section. ALBUMIN LEVEL Routine 01/09/2022 Malignant neoplasm of Resul ts for 11:20 AM CDT overlapping sites of this pr ocedure urinary organs are in the results section. ELECTROLYTE PANEL Routine 01/09/2022 Malignant neoplasm of R esults for 11:20 AM CDT overlapping sites of this pr ocedure urinary organs are in the results section. BLOOD UREA NITROGEN Routine 01/09/2022 Malignant neoplasm of Results for 11:20 AM CDT overlapping sites of this pr ocedure urinary organs are in the results section. GLUCOSE LEVEL Routine 01/09/2022 Malignant neoplasm of Resul ts for 11:20 AM CDT overlapping sites of this pr ocedure urinary organs are in the results section. .GLOMERULAR FILTRATION Routine 01/09/2022 Secondary malignan t Results for RATE 11:20 AM CDT neoplasm of bone this procedure Personal history of are in t he malignant neoplasm of result s bladder section. SERUM CREATININE Routine 01/09/2022 Secondary malignant Resu lts for 11:20 AM CDT neoplasm of bone this procedure Personal history of are in t he malignant neoplasm of result s bladder section. FREE THYROXINE Routine 01/09/2022 Malignant neoplasm of Resu lts for 11:20 AM CDT overlapping sites of this pr ocedure urinary organs are in the results section. FREE T3 Routine 01/09/2022 Malignant neoplasm of Result s for 11:20 AM CDT overlapping sites of this pr ocedure urinary organs are in the results section. THYROID STIMULATING Routine 01/09/2022 Malignant neoplasm of Results for HORMONE 11:20 AM CDT overlapping sites of this pr ocedure urinary organs are in the results section. APTT Routine 01/09/2022 Malignant neoplasm of Result s for 11:20 AM CDT overlapping sites of this pr ocedure urinary organs are in the results section. PROTHROMBIN TIME Routine 01/09/2022 Malignant neoplasm of Re sults for 11:20 AM CDT overlapping sites of this pr ocedure urinary organs are in the results section. URIC ACID Routine 01/09/2022 Malignant neoplasm of Result s for 11:20 AM CDT overlapping sites of this pr ocedure urinary organs are in the results section. LACTATE DEHYDROGENASE Routine 01/09/2022 Malignant neoplasm of Results for 11:20 AM CDT overlapping sites of this pr ocedure urinary organs are in the results section. MAGNESIUM LEVEL Routine 01/09/2022 Malignant neoplasm of Res ults for 11:20 AM CDT overlapping sites of this pr ocedure urinary organs are in the results section. COMPREHENSIVE METABOLIC Routine 01/09/2022 Malignant neoplas m of PANEL 11:20 AM CDT overlapping sites of urinary organs COMPLETE BLOOD COUNT W/ Routine 01/09/2022 Malignant neoplas m of DIFFERENTIAL 11:20 AM CDT overlapping sites of urinary organs SERUM CREATININE Routine 01/09/2022 Secondary malignant 11:20 AM CDT neoplasm of bone Personal history of malignant neoplasm of bladder PHOSPHORUS LEVEL Routine 01/09/2022 Secondary malignant Resu lts for 11:20 AM CDT neoplasm of bone this procedure Personal history of are in t he malignant neoplasm of result s bladder section. CALCIUM LEVEL TOTAL Routine 01/09/2022 Secondary malignant R esults for 11:20 AM CDT neoplasm of bone this procedure Personal history of are in t he malignant neoplasm of result s bladder section. FRACTIONATED BILIRUBIN Routine 12/30/2021 Malignant neoplasm of Results for 12:14 PM CDT overlapping sites of this pr ocedure urinary organs are in the results section. TOTAL PROTEIN Routine 12/30/2021 Malignant neoplasm of Resul ts for 12:14 PM CDT overlapping sites of this pr ocedure urinary organs are in the results section. ASPARTATE Routine 12/30/2021 Malignant neoplasm of Result s for AMINOTRANSFERASE 12:14 PM CDT overlapping sites of thi s procedure urinary organs are in the results section. ALANINE AMINOTRANSFERASE Routine 12/30/2021 Malignant neopla sm of Results for 12:14 PM CDT overlapping sites of this pr ocedure urinary organs are in the results section. ALKALINE PHOSPHATASE Routine 12/30/2021 Malignant neoplasm o f Results for 12:14 PM CDT overlapping sites of this pr ocedure urinary organs are in the results section. ALBUMIN LEVEL Routine 12/30/2021 Malignant neoplasm of Resul ts for 12:14 PM CDT overlapping sites of this pr ocedure urinary organs are in the results section. CALCIUM LEVEL TOTAL Routine 12/30/2021 Malignant neoplasm of Results for 12:14 PM CDT overlapping sites of this pr ocedure urinary organs are in the results section. .GLOMERULAR FILTRATION Routine 12/30/2021 Malignant neoplasm of Results for RATE 12:14 PM CDT overlapping sites of this pr ocedure urinary organs are in the results section. SERUM CREATININE Routine 12/30/2021 Malignant neoplasm of Re sults for 12:14 PM CDT overlapping sites of this pr ocedure urinary organs are in the results section. ELECTROLYTE PANEL Routine 12/30/2021 Malignant neoplasm of R esults for 12:14 PM CDT overlapping sites of this pr ocedure urinary organs are in the results section. BLOOD UREA NITROGEN Routine 12/30/2021 Malignant neoplasm of Results for 12:14 PM CDT overlapping sites of this pr ocedure urinary organs are in the results section. GLUCOSE LEVEL Routine 12/30/2021 Malignant neoplasm of Resul ts for 12:14 PM CDT overlapping sites of this pr ocedure urinary organs are in the results section. COMPREHENSIVE METABOLIC Routine 12/30/2021 Malignant neoplas m of PANEL 12:14 PM CDT overlapping sites of urinary organs AP IHC PD-L1 MATERIAL Routine 12/24/2021 7:15 Primary urotheli al REQUEST PM CDT carcinoma of overlapping lesion of urinary organ POTASSIUM LEVEL Routine 12/16/2021 3:48 Hyperkalemia Results f or PM CDT this procedure are in the results section. URINALYSIS MICROSCOPIC Routine 12/16/2021 9:39 Re sults for AM CDT this procedure are in the results section. FRACTIONATED BILIRUBIN Routine 12/16/2021 9:39 Malignant neopl asm of Results for AM CDT overlapping sites of this pr ocedure urinary organs are in the results section. TOTAL PROTEIN Routine 12/16/2021 9:39 Malignant neoplasm of Re sults for AM CDT overlapping sites of this pr ocedure urinary organs are in the results section. ASPARTATE Routine 12/16/2021 9:39 Malignant neoplasm of Res ults for AMINOTRANSFERASE AM CDT overlapping sites of thi s procedure urinary organs are in the results section. ALANINE AMINOTRANSFERASE Routine 12/16/2021 9:39 Malignant cristina plasm of Results for AM CDT overlapping sites of this pr ocedure urinary organs are in the results section. ALKALINE PHOSPHATASE Routine 12/16/2021 9:39 Malignant neoplas m of Results for AM CDT overlapping sites of this pr ocedure urinary organs are in the results section. ALBUMIN LEVEL Routine 12/16/2021 9:39 Malignant neoplasm of Re sults for AM CDT overlapping sites of this pr ocedure urinary organs are in the results section. CALCIUM LEVEL TOTAL Routine 12/16/2021 9:39 Malignant neoplasm of Results for AM CDT overlapping sites of this pr ocedure urinary organs are in the results section. .GLOMERULAR FILTRATION Routine 12/16/2021 9:39 Malignant neopl asm of Results for RATE AM CDT overlapping sites of this pr ocedure urinary organs are in the results section. SERUM CREATININE Routine 12/16/2021 9:39 Malignant neoplasm of Results for AM CDT overlapping sites of this pr ocedure urinary organs are in the results section. ELECTROLYTE PANEL Routine 12/16/2021 9:39 Malignant neoplasm o f Results for AM CDT overlapping sites of this pr ocedure urinary organs are in the results section. BLOOD UREA NITROGEN Routine 12/16/2021 9:39 Malignant neoplasm of Results for AM CDT overlapping sites of this pr ocedure urinary organs are in the results section. GLUCOSE LEVEL Routine 12/16/2021 9:39 Malignant neoplasm of Re sults for AM CDT overlapping sites of this pr ocedure urinary organs are in the results section. MANUAL DIFFERENTIAL Routine 12/16/2021 9:39 Malignant neoplasm of Results for AM CDT overlapping sites of this pr ocedure urinary organs are in the results section. Results CBC Routine 12/16/2021 9:39 Malignant neoplasm of Res ults for AM CDT overlapping sites of this pr ocedure urinary organs are in the results section. URINALYSIS WITH Routine 12/16/2021 9:39 Malignant neoplasm of Results for MICROSCOPIC IF INDICATED AM CDT overlapping site s of this procedure urinary organs are in the results section. FREE THYROXINE Routine 12/16/2021 9:39 Malignant neoplasm of R esults for AM CDT overlapping sites of this pr ocedure urinary organs are in the results section. FREE T3 Routine 12/16/2021 9:39 Malignant neoplasm of Res ults for AM CDT overlapping sites of this pr ocedure urinary organs are in the results section. THYROID STIMULATING Routine 12/16/2021 9:39 Malignant neoplasm of Results for HORMONE AM CDT overlapping sites of this pr ocedure urinary organs are in the results section. APTT Routine 12/16/2021 9:39 Malignant neoplasm of Res ults for AM CDT overlapping sites of this pr ocedure urinary organs are in the results section. PROTHROMBIN TIME Routine 12/16/2021 9:39 Malignant neoplasm of Results for AM CDT overlapping sites of this pr ocedure urinary organs are in the results section. URIC ACID Routine 12/16/2021 9:39 Malignant neoplasm of Res ults for AM CDT overlapping sites of this pr ocedure urinary organs are in the results section. LACTATE DEHYDROGENASE Routine 12/16/2021 9:39 Malignant neopla sm of Results for AM CDT overlapping sites of this pr ocedure urinary organs are in the results section. PHOSPHORUS LEVEL Routine 12/16/2021 9:39 Malignant neoplasm of Results for AM CDT overlapping sites of this pr ocedure urinary organs are in the results section. MAGNESIUM LEVEL Routine 12/16/2021 9:39 Malignant neoplasm of Results for AM CDT overlapping sites of this pr ocedure urinary organs are in the results section. COMPREHENSIVE METABOLIC Routine 12/16/2021 9:39 Malignant neop lasm of PANEL AM CDT overlapping sites of urinary organs COMPLETE BLOOD COUNT W/ Routine 12/16/2021 9:39 Malignant neop lasm of DIFFERENTIAL AM CDT overlapping sites of urinary organs IR NEPHROSTOMY EXCHANGE Routine 12/15/2021 Resu lts for 60 11:30 AM CDT this procedure are in the results section. [facility] Routine 11/27/2021 8:40 Primary urothelial Resul ts for AM CDT carcinoma of this procedure overlapping lesion of are in the urinary organ results section. CT CHEST ABDOMEN PELVIS W Routine 11/18/2021 Primary urothel ial Results for CONTRAST 11:03 AM CDT carcinoma of this procedure overlapping lesion of are in the urinary organ results section. URINALYSIS MICROSCOPIC Routine 11/18/2021 9:33 Re sults for AM CDT this procedure are in the results section. FRACTIONATED BILIRUBIN Routine 11/18/2021 9:33 Primary urothel ial Results for AM CDT carcinoma of this procedure overlapping lesion of are in the urinary organ results section. TOTAL PROTEIN Routine 11/18/2021 9:33 Primary urothelial Resul ts for AM CDT carcinoma of this procedure overlapping lesion of are in the urinary organ results section. ASPARTATE Routine 11/18/2021 9:33 Primary urothelial Result s for AMINOTRANSFERASE AM CDT carcinoma of this proced ure overlapping lesion of are in the urinary organ results section. ALANINE AMINOTRANSFERASE Routine 11/18/2021 9:33 Primary uroth elial Results for AM CDT carcinoma of this procedure overlapping lesion of are in the urinary organ results section. ALKALINE PHOSPHATASE Routine 11/18/2021 9:33 Primary urothelia l Results for AM CDT carcinoma of this procedure overlapping lesion of are in the urinary organ results section. ALBUMIN LEVEL Routine 11/18/2021 9:33 Primary urothelial Resul ts for AM CDT carcinoma of this procedure overlapping lesion of are in the urinary organ results section. CALCIUM LEVEL TOTAL Routine 11/18/2021 9:33 Primary urothelial Results for AM CDT carcinoma of this procedure overlapping lesion of are in the urinary organ results section. .GLOMERULAR FILTRATION Routine 11/18/2021 9:33 Primary urothel ial Results for RATE AM CDT carcinoma of this procedure overlapping lesion of are in the urinary organ results section. SERUM CREATININE Routine 11/18/2021 9:33 Primary urothelial Re sults for AM CDT carcinoma of this procedure overlapping lesion of are in the urinary organ results section. ELECTROLYTE PANEL Routine 11/18/2021 9:33 Primary urothelial R esults for AM CDT carcinoma of this procedure overlapping lesion of are in the urinary organ results section. BLOOD UREA NITROGEN Routine 11/18/2021 9:33 Primary urothelial Results for AM CDT carcinoma of this procedure overlapping lesion of are in the urinary organ results section. GLUCOSE LEVEL Routine 11/18/2021 9:33 Primary urothelial Resul ts for AM CDT carcinoma of this procedure overlapping lesion of are in the urinary organ results section. MANUAL DIFFERENTIAL Routine 11/18/2021 9:33 Primary urothelial Results for AM CDT carcinoma of this procedure overlapping lesion of are in the urinary organ results section. Results CBC Routine 11/18/2021 9:33 Primary urothelial Result s for AM CDT carcinoma of this procedure overlapping lesion of are in the urinary organ results section. URINALYSIS WITH Routine 11/18/2021 9:33 Primary urothelial Res ults for MICROSCOPIC IF INDICATED AM CDT carcinoma of thi s procedure overlapping lesion of are in the urinary organ results section. FREE THYROXINE Routine 11/18/2021 9:33 Primary urothelial Resu lts for AM CDT carcinoma of this procedure overlapping lesion of are in the urinary organ results section. FREE T3 Routine 11/18/2021 9:33 Primary urothelial Result s for AM CDT carcinoma of this procedure overlapping lesion of are in the urinary organ results section. THYROID STIMULATING Routine 11/18/2021 9:33 Primary urothelial Results for HORMONE AM CDT carcinoma of this procedure overlapping lesion of are in the urinary organ results section. APTT Routine 11/18/2021 9:33 Primary urothelial Result s for AM CDT carcinoma of this procedure overlapping lesion of are in the urinary organ results section. PROTHROMBIN TIME Routine 11/18/2021 9:33 Primary urothelial Re sults for AM CDT carcinoma of this procedure overlapping lesion of are in the urinary organ results section. URIC ACID Routine 11/18/2021 9:33 Primary urothelial Result s for AM CDT carcinoma of this procedure overlapping lesion of are in the urinary organ results section. LACTATE DEHYDROGENASE Routine 11/18/2021 9:33 Primary urotheli al Results for AM CDT carcinoma of this procedure overlapping lesion of are in the urinary organ results section. PHOSPHORUS LEVEL Routine 11/18/2021 9:33 Primary urothelial Re sults for AM CDT carcinoma of this procedure overlapping lesion of are in the urinary organ results section. MAGNESIUM LEVEL Routine 11/18/2021 9:33 Primary urothelial Res ults for AM CDT carcinoma of this procedure overlapping lesion of are in the urinary organ results section. COMPREHENSIVE METABOLIC Routine 11/18/2021 9:33 Primary urothe lial PANEL AM CDT carcinoma of overlapping lesion of urinary organ COMPLETE BLOOD COUNT W/ Routine 11/18/2021 9:33 Primary urothe lial DIFFERENTIAL AM CDT carcinoma of overlapping lesion of urinary organ NM BONE SCAN WHOLE BODY Routine 11/17/2021 1:39 Primary urothe lial Results for PM CDT carcinoma of this procedure overlapping lesion of are in the urinary organ results section. IR CT GUIDED BIOPSY Routine 11/04/2021 Primary urothelial Re sults for PELVIC NON-BONE 60 11:10 AM CDT carcinoma of this proc edure overlapping lesion of are in the urinary organ results section. URINALYSIS MICROSCOPIC Routine 10/21/2021 8:00 Re sults for AM CDT this procedure are in the results section. FRACTIONATED BILIRUBIN Routine 10/21/2021 8:00 Primary urothel ial Results for AM CDT carcinoma of this procedure overlapping lesion of are in the urinary organ results section. TOTAL PROTEIN Routine 10/21/2021 8:00 Primary urothelial Resul ts for AM CDT carcinoma of this procedure overlapping lesion of are in the urinary organ results section. ASPARTATE Routine 10/21/2021 8:00 Primary urothelial Result s for AMINOTRANSFERASE AM CDT carcinoma of this proced ure overlapping lesion of are in the urinary organ results section. ALANINE AMINOTRANSFERASE Routine 10/21/2021 8:00 Primary uroth elial Results for AM CDT carcinoma of this procedure overlapping lesion of are in the urinary organ results section. ALKALINE PHOSPHATASE Routine 10/21/2021 8:00 Primary urothelia l Results for AM CDT carcinoma of this procedure overlapping lesion of are in the urinary organ results section. ALBUMIN LEVEL Routine 10/21/2021 8:00 Primary urothelial Resul ts for AM CDT carcinoma of this procedure overlapping lesion of are in the urinary organ results section. CALCIUM LEVEL TOTAL Routine 10/21/2021 8:00 Primary urothelial Results for AM CDT carcinoma of this procedure overlapping lesion of are in the urinary organ results section. .GLOMERULAR FILTRATION Routine 10/21/2021 8:00 Primary urothel ial Results for RATE AM CDT carcinoma of this procedure overlapping lesion of are in the urinary organ results section. SERUM CREATININE Routine 10/21/2021 8:00 Primary urothelial Re sults for AM CDT carcinoma of this procedure overlapping lesion of are in the urinary organ results section. ELECTROLYTE PANEL Routine 10/21/2021 8:00 Primary urothelial R esults for AM CDT carcinoma of this procedure overlapping lesion of are in the urinary organ results section. BLOOD UREA NITROGEN Routine 10/21/2021 8:00 Primary urothelial Results for AM CDT carcinoma of this procedure overlapping lesion of are in the urinary organ results section. GLUCOSE LEVEL Routine 10/21/2021 8:00 Primary urothelial Resul ts for AM CDT carcinoma of this procedure overlapping lesion of are in the urinary organ results section. MANUAL DIFFERENTIAL Routine 10/21/2021 8:00 Primary urothelial Results for AM CDT carcinoma of this procedure overlapping lesion of are in the urinary organ results section. Results CBC Routine 10/21/2021 8:00 Primary urothelial Result s for AM CDT carcinoma of this procedure overlapping lesion of are in the urinary organ results section. URINALYSIS WITH Routine 10/21/2021 8:00 Primary urothelial Res ults for MICROSCOPIC IF INDICATED AM CDT carcinoma of thi s procedure overlapping lesion of are in the urinary organ results section. FREE THYROXINE Routine 10/21/2021 8:00 Primary urothelial Resu lts for AM CDT carcinoma of this procedure overlapping lesion of are in the urinary organ results section. FREE T3 Routine 10/21/2021 8:00 Primary urothelial Result s for AM CDT carcinoma of this procedure overlapping lesion of are in the urinary organ results section. THYROID STIMULATING Routine 10/21/2021 8:00 Primary urothelial Results for HORMONE AM CDT carcinoma of this procedure overlapping lesion of are in the urinary organ results section. APTT Routine 10/21/2021 8:00 Primary urothelial Result s for AM CDT carcinoma of this procedure overlapping lesion of are in the urinary organ results section. PROTHROMBIN TIME Routine 10/21/2021 8:00 Primary urothelial Re sults for AM CDT carcinoma of this procedure overlapping lesion of are in the urinary organ results section. URIC ACID Routine 10/21/2021 8:00 Primary urothelial Result s for AM CDT carcinoma of this procedure overlapping lesion of are in the urinary organ results section. LACTATE DEHYDROGENASE Routine 10/21/2021 8:00 Primary urotheli al Results for AM CDT carcinoma of this procedure overlapping lesion of are in the urinary organ results section. PHOSPHORUS LEVEL Routine 10/21/2021 8:00 Primary urothelial Re sults for AM CDT carcinoma of this procedure overlapping lesion of are in the urinary organ results section. MAGNESIUM LEVEL Routine 10/21/2021 8:00 Primary urothelial Res ults for AM CDT carcinoma of this procedure overlapping lesion of are in the urinary organ results section. COMPREHENSIVE METABOLIC Routine 10/21/2021 8:00 Primary urothe lial PANEL AM CDT carcinoma of overlapping lesion of urinary organ COMPLETE BLOOD COUNT W/ Routine 10/21/2021 8:00 Primary urothe lial DIFFERENTIAL AM CDT carcinoma of overlapping lesion of urinary organ URINALYSIS MICROSCOPIC Routine 10/14/2021 1:23 Re sults for PM CDT this procedure are in the results section. FRACTIONATED BILIRUBIN Routine 10/14/2021 1:23 Primary urothel ial Results for PM CDT carcinoma of this procedure overlapping lesion of are in the urinary organ results section. TOTAL PROTEIN Routine 10/14/2021 1:23 Primary urothelial Resul ts for PM CDT carcinoma of this procedure overlapping lesion of are in the urinary organ results section. ASPARTATE Routine 10/14/2021 1:23 Primary urothelial Result s for AMINOTRANSFERASE PM CDT carcinoma of this proced ure overlapping lesion of are in the urinary organ results section. ALANINE AMINOTRANSFERASE Routine 10/14/2021 1:23 Primary uroth elial Results for PM CDT carcinoma of this procedure overlapping lesion of are in the urinary organ results section. ALKALINE PHOSPHATASE Routine 10/14/2021 1:23 Primary urothelia l Results for PM CDT carcinoma of this procedure overlapping lesion of are in the urinary organ results section. ALBUMIN LEVEL Routine 10/14/2021 1:23 Primary urothelial Resul ts for PM CDT carcinoma of this procedure overlapping lesion of are in the urinary organ results section. CALCIUM LEVEL TOTAL Routine 10/14/2021 1:23 Primary urothelial Results for PM CDT carcinoma of this procedure overlapping lesion of are in the urinary organ results section. .GLOMERULAR FILTRATION Routine 10/14/2021 1:23 Primary urothel ial Results for RATE PM CDT carcinoma of this procedure overlapping lesion of are in the urinary organ results section. SERUM CREATININE Routine 10/14/2021 1:23 Primary urothelial Re sults for PM CDT carcinoma of this procedure overlapping lesion of are in the urinary organ results section. ELECTROLYTE PANEL Routine 10/14/2021 1:23 Primary urothelial R esults for PM CDT carcinoma of this procedure overlapping lesion of are in the urinary organ results section. BLOOD UREA NITROGEN Routine 10/14/2021 1:23 Primary urothelial Results for PM CDT carcinoma of this procedure overlapping lesion of are in the urinary organ results section. GLUCOSE LEVEL Routine 10/14/2021 1:23 Primary urothelial Resul ts for PM CDT carcinoma of this procedure overlapping lesion of are in the urinary organ results section. MANUAL DIFFERENTIAL Routine 10/14/2021 1:23 Primary urothelial Results for PM CDT carcinoma of this procedure overlapping lesion of are in the urinary organ results section. Results CBC Routine 10/14/2021 1:23 Primary urothelial Result s for PM CDT carcinoma of this procedure overlapping lesion of are in the urinary organ results section. URINALYSIS WITH Routine 10/14/2021 1:23 Primary urothelial Res ults for MICROSCOPIC IF INDICATED PM CDT carcinoma of thi s procedure overlapping lesion of are in the urinary organ results section. FREE THYROXINE Routine 10/14/2021 1:23 Primary urothelial Resu lts for PM CDT carcinoma of this procedure overlapping lesion of are in the urinary organ results section. FREE T3 Routine 10/14/2021 1:23 Primary urothelial Result s for PM CDT carcinoma of this procedure overlapping lesion of are in the urinary organ results section. THYROID STIMULATING Routine 10/14/2021 1:23 Primary urothelial Results for HORMONE PM CDT carcinoma of this procedure overlapping lesion of are in the urinary organ results section. APTT Routine 10/14/2021 1:23 Primary urothelial Result s for PM CDT carcinoma of this procedure overlapping lesion of are in the urinary organ results section. PROTHROMBIN TIME Routine 10/14/2021 1:23 Primary urothelial Re sults for PM CDT carcinoma of this procedure overlapping lesion of are in the urinary organ results section. URIC ACID Routine 10/14/2021 1:23 Primary urothelial Result s for PM CDT carcinoma of this procedure overlapping lesion of are in the urinary organ results section. LACTATE DEHYDROGENASE Routine 10/14/2021 1:23 Primary urotheli al Results for PM CDT carcinoma of this procedure overlapping lesion of are in the urinary organ results section. PHOSPHORUS LEVEL Routine 10/14/2021 1:23 Primary urothelial Re sults for PM CDT carcinoma of this procedure overlapping lesion of are in the urinary organ results section. MAGNESIUM LEVEL Routine 10/14/2021 1:23 Primary urothelial Res ults for PM CDT carcinoma of this procedure overlapping lesion of are in the urinary organ results section. COMPREHENSIVE METABOLIC Routine 10/14/2021 1:23 Primary urothe lial PANEL PM CDT carcinoma of overlapping lesion of urinary organ COMPLETE BLOOD COUNT W/ Routine 10/14/2021 1:23 Primary urothe lial DIFFERENTIAL PM CDT carcinoma of overlapping lesion of urinary organ URINALYSIS MICROSCOPIC Routine 10/08/2021 9:25 Re sults for AM CDT this procedure are in the results section. FRACTIONATED BILIRUBIN Routine 10/08/2021 9:25 Primary urothel ial Results for AM CDT carcinoma of this procedure overlapping lesion of are in the urinary organ results section. TOTAL PROTEIN Routine 10/08/2021 9:25 Primary urothelial Resul ts for AM CDT carcinoma of this procedure overlapping lesion of are in the urinary organ results section. ASPARTATE Routine 10/08/2021 9:25 Primary urothelial Result s for AMINOTRANSFERASE AM CDT carcinoma of this proced ure overlapping lesion of are in the urinary organ results section. ALANINE AMINOTRANSFERASE Routine 10/08/2021 9:25 Primary uroth elial Results for AM CDT carcinoma of this procedure overlapping lesion of are in the urinary organ results section. ALKALINE PHOSPHATASE Routine 10/08/2021 9:25 Primary urothelia l Results for AM CDT carcinoma of this procedure overlapping lesion of are in the urinary organ results section. ALBUMIN LEVEL Routine 10/08/2021 9:25 Primary urothelial Resul ts for AM CDT carcinoma of this procedure overlapping lesion of are in the urinary organ results section. CALCIUM LEVEL TOTAL Routine 10/08/2021 9:25 Primary urothelial Results for AM CDT carcinoma of this procedure overlapping lesion of are in the urinary organ results section. .GLOMERULAR FILTRATION Routine 10/08/2021 9:25 Primary urothel ial Results for RATE AM CDT carcinoma of this procedure overlapping lesion of are in the urinary organ results section. SERUM CREATININE Routine 10/08/2021 9:25 Primary urothelial Re sults for AM CDT carcinoma of this procedure overlapping lesion of are in the urinary organ results section. ELECTROLYTE PANEL Routine 10/08/2021 9:25 Primary urothelial R esults for AM CDT carcinoma of this procedure overlapping lesion of are in the urinary organ results section. BLOOD UREA NITROGEN Routine 10/08/2021 9:25 Primary urothelial Results for AM CDT carcinoma of this procedure overlapping lesion of are in the urinary organ results section. GLUCOSE LEVEL Routine 10/08/2021 9:25 Primary urothelial Resul ts for AM CDT carcinoma of this procedure overlapping lesion of are in the urinary organ results section. MANUAL DIFFERENTIAL Routine 10/08/2021 9:25 Primary urothelial Results for AM CDT carcinoma of this procedure overlapping lesion of are in the urinary organ results section. Results CBC Routine 10/08/2021 9:25 Primary urothelial Result s for AM CDT carcinoma of this procedure overlapping lesion of are in the urinary organ results section. URINALYSIS WITH Routine 10/08/2021 9:25 Primary urothelial Res ults for MICROSCOPIC IF INDICATED AM CDT carcinoma of thi s procedure overlapping lesion of are in the urinary organ results section. FREE THYROXINE Routine 10/08/2021 9:25 Primary urothelial Resu lts for AM CDT carcinoma of this procedure overlapping lesion of are in the urinary organ results section. FREE T3 Routine 10/08/2021 9:25 Primary urothelial Result s for AM CDT carcinoma of this procedure overlapping lesion of are in the urinary organ results section. THYROID STIMULATING Routine 10/08/2021 9:25 Primary urothelial Results for HORMONE AM CDT carcinoma of this procedure overlapping lesion of are in the urinary organ results section. APTT Routine 10/08/2021 9:25 Primary urothelial Result s for AM CDT carcinoma of this procedure overlapping lesion of are in the urinary organ results section. PROTHROMBIN TIME Routine 10/08/2021 9:25 Primary urothelial Re sults for AM CDT carcinoma of this procedure overlapping lesion of are in the urinary organ results section. URIC ACID Routine 10/08/2021 9:25 Primary urothelial Result s for AM CDT carcinoma of this procedure overlapping lesion of are in the urinary organ results section. LACTATE DEHYDROGENASE Routine 10/08/2021 9:25 Primary urotheli al Results for AM CDT carcinoma of this procedure overlapping lesion of are in the urinary organ results section. PHOSPHORUS LEVEL Routine 10/08/2021 9:25 Primary urothelial Re sults for AM CDT carcinoma of this procedure overlapping lesion of are in the urinary organ results section. MAGNESIUM LEVEL Routine 10/08/2021 9:25 Primary urothelial Res ults for AM CDT carcinoma of this procedure overlapping lesion of are in the urinary organ results section. COMPREHENSIVE METABOLIC Routine 10/08/2021 9:25 Primary urothe lial PANEL AM CDT carcinoma of overlapping lesion of urinary organ COMPLETE BLOOD COUNT W/ Routine 10/08/2021 9:25 Primary urothe lial DIFFERENTIAL AM CDT carcinoma of overlapping lesion of urinary organ URINALYSIS MICROSCOPIC Routine 09/30/2021 9:43 Re sults for AM CDT this procedure are in the results section. FRACTIONATED BILIRUBIN Routine 09/30/2021 9:43 Primary urothel ial Results for AM CDT carcinoma of this procedure overlapping lesion of are in the urinary organ results section. TOTAL PROTEIN Routine 09/30/2021 9:43 Primary urothelial Resul ts for AM CDT carcinoma of this procedure overlapping lesion of are in the urinary organ results section. ASPARTATE Routine 09/30/2021 9:43 Primary urothelial Result s for AMINOTRANSFERASE AM CDT carcinoma of this proced ure overlapping lesion of are in the urinary organ results section. ALANINE AMINOTRANSFERASE Routine 09/30/2021 9:43 Primary uroth elial Results for AM CDT carcinoma of this procedure overlapping lesion of are in the urinary organ results section. ALKALINE PHOSPHATASE Routine 09/30/2021 9:43 Primary urothelia l Results for AM CDT carcinoma of this procedure overlapping lesion of are in the urinary organ results section. ALBUMIN LEVEL Routine 09/30/2021 9:43 Primary urothelial Resul ts for AM CDT carcinoma of this procedure overlapping lesion of are in the urinary organ results section. CALCIUM LEVEL TOTAL Routine 09/30/2021 9:43 Primary urothelial Results for AM CDT carcinoma of this procedure overlapping lesion of are in the urinary organ results section. .GLOMERULAR FILTRATION Routine 09/30/2021 9:43 Primary urothel ial Results for RATE AM CDT carcinoma of this procedure overlapping lesion of are in the urinary organ results section. SERUM CREATININE Routine 09/30/2021 9:43 Primary urothelial Re sults for AM CDT carcinoma of this procedure overlapping lesion of are in the urinary organ results section. ELECTROLYTE PANEL Routine 09/30/2021 9:43 Primary urothelial R esults for AM CDT carcinoma of this procedure overlapping lesion of are in the urinary organ results section. BLOOD UREA NITROGEN Routine 09/30/2021 9:43 Primary urothelial Results for AM CDT carcinoma of this procedure overlapping lesion of are in the urinary organ results section. GLUCOSE LEVEL Routine 09/30/2021 9:43 Primary urothelial Resul ts for AM CDT carcinoma of this procedure overlapping lesion of are in the urinary organ results section. MANUAL DIFFERENTIAL Routine 09/30/2021 9:43 Primary urothelial Results for AM CDT carcinoma of this procedure overlapping lesion of are in the urinary organ results section. Results CBC Routine 09/30/2021 9:43 Primary urothelial Result s for AM CDT carcinoma of this procedure overlapping lesion of are in the urinary organ results section. URINALYSIS WITH Routine 09/30/2021 9:43 Primary urothelial Res ults for MICROSCOPIC IF INDICATED AM CDT carcinoma of thi s procedure overlapping lesion of are in the urinary organ results section. FREE THYROXINE Routine 09/30/2021 9:43 Primary urothelial Resu lts for AM CDT carcinoma of this procedure overlapping lesion of are in the urinary organ results section. FREE T3 Routine 09/30/2021 9:43 Primary urothelial Result s for AM CDT carcinoma of this procedure overlapping lesion of are in the urinary organ results section. THYROID STIMULATING Routine 09/30/2021 9:43 Primary urothelial Results for HORMONE AM CDT carcinoma of this procedure overlapping lesion of are in the urinary organ results section. APTT Routine 09/30/2021 9:43 Primary urothelial Result s for AM CDT carcinoma of this procedure overlapping lesion of are in the urinary organ results section. PROTHROMBIN TIME Routine 09/30/2021 9:43 Primary urothelial Re sults for AM CDT carcinoma of this procedure overlapping lesion of are in the urinary organ results section. URIC ACID Routine 09/30/2021 9:43 Primary urothelial Result s for AM CDT carcinoma of this procedure overlapping lesion of are in the urinary organ results section. LACTATE DEHYDROGENASE Routine 09/30/2021 9:43 Primary urotheli al Results for AM CDT carcinoma of this procedure overlapping lesion of are in the urinary organ results section. PHOSPHORUS LEVEL Routine 09/30/2021 9:43 Primary urothelial Re sults for AM CDT carcinoma of this procedure overlapping lesion of are in the urinary organ results section. MAGNESIUM LEVEL Routine 09/30/2021 9:43 Primary urothelial Res ults for AM CDT carcinoma of this procedure overlapping lesion of are in the urinary organ results section. COMPREHENSIVE METABOLIC Routine 09/30/2021 9:43 Primary urothe lial PANEL AM CDT carcinoma of overlapping lesion of urinary organ COMPLETE BLOOD COUNT W/ Routine 09/30/2021 9:43 Primary urothe lial DIFFERENTIAL AM CDT carcinoma of overlapping lesion of urinary organ [facility] Routine 09/23/2021 Primary urothelial Results for 10:11 AM CDT carcinoma of this procedure overlapping lesion of are in the urinary organ results section. IR CT GUIDED BIOPSY LYMPH Routine 09/19/2021 4:09 Screen ing for cancer Results for NODE 60 PM CDT Primary urothelial this proc edure carcinoma of are in the overlapping lesion of result s urinary organ section. URINALYSIS MICROSCOPIC Routine 09/19/2021 1:21 Re sults for PM CDT this procedure are in the results section. URINALYSIS WITH Routine 09/19/2021 1:21 Secondary malignant Re sults for MICROSCOPIC IF INDICATED PM CDT neoplasm of bone this procedure are in the results section. FRACTIONATED BILIRUBIN Routine 09/19/2021 1:18 Secondary malig nant Results for PM CDT neoplasm of bone this proced ure are in the results section. TOTAL PROTEIN Routine 09/19/2021 1:18 Secondary malignant Resu lts for PM CDT neoplasm of bone this proced ure are in the results section. ASPARTATE Routine 09/19/2021 1:18 Secondary malignant Resul ts for AMINOTRANSFERASE PM CDT neoplasm of bone this pr ocedure are in the results section. ALANINE AMINOTRANSFERASE Routine 09/19/2021 1:18 Secondary mal ignant Results for PM CDT neoplasm of bone this proced ure are in the results section. ALKALINE PHOSPHATASE Routine 09/19/2021 1:18 Secondary maligna nt Results for PM CDT neoplasm of bone this proced ure are in the results section. ALBUMIN LEVEL Routine 09/19/2021 1:18 Secondary malignant Resu lts for PM CDT neoplasm of bone this proced ure are in the results section. CALCIUM LEVEL TOTAL Routine 09/19/2021 1:18 Secondary malignan t Results for PM CDT neoplasm of bone this proced ure are in the results section. .GLOMERULAR FILTRATION Routine 09/19/2021 1:18 Secondary malig nant Results for RATE PM CDT neoplasm of bone this proced ure are in the results section. SERUM CREATININE Routine 09/19/2021 1:18 Secondary malignant R esults for PM CDT neoplasm of bone this proced ure are in the results section. ELECTROLYTE PANEL Routine 09/19/2021 1:18 Secondary malignant Results for PM CDT neoplasm of bone this proced ure are in the results section. BLOOD UREA NITROGEN Routine 09/19/2021 1:18 Secondary malignan t Results for PM CDT neoplasm of bone this proced ure are in the results section. GLUCOSE LEVEL Routine 09/19/2021 1:18 Secondary malignant Resu lts for PM CDT neoplasm of bone this proced ure are in the results section. MANUAL DIFFERENTIAL Routine 09/19/2021 1:18 Secondary malignan t Results for PM CDT neoplasm of bone this proced ure are in the results section. Results CBC Routine 09/19/2021 1:18 Secondary malignant Resul ts for PM CDT neoplasm of bone this proced ure are in the results section. URIC ACID Routine 09/19/2021 1:18 Secondary malignant Resul ts for PM CDT neoplasm of bone this proced ure are in the results section. LACTATE DEHYDROGENASE Routine 09/19/2021 1:18 Secondary malign ant Results for PM CDT neoplasm of bone this proced ure are in the results section. PHOSPHORUS LEVEL Routine 09/19/2021 1:18 Secondary malignant R esults for PM CDT neoplasm of bone this proced ure are in the results section. MAGNESIUM LEVEL Routine 09/19/2021 1:18 Secondary malignant Re sults for PM CDT neoplasm of bone this proced ure are in the results section. COMPREHENSIVE METABOLIC Routine 09/19/2021 1:18 Secondary sigrid gnant PANEL PM CDT neoplasm of bone FREE THYROXINE Routine 09/19/2021 1:18 Secondary malignant Res ults for PM CDT neoplasm of bone this proced ure are in the results section. FREE T3 Routine 09/19/2021 1:18 Secondary malignant Resul ts for PM CDT neoplasm of bone this proced ure are in the results section. THYROID STIMULATING Routine 09/19/2021 1:18 Secondary malignan t Results for HORMONE PM CDT neoplasm of bone this proced ure are in the results section. PROTHROMBIN TIME Routine 09/19/2021 1:18 Secondary malignant R esults for PM CDT neoplasm of bone this proced ure are in the results section. APTT Routine 09/19/2021 1:18 Secondary malignant Resul ts for PM CDT neoplasm of bone this proced ure are in the results section. COMPLETE BLOOD COUNT W/ Routine 09/19/2021 1:18 Secondary sigrid gnant DIFFERENTIAL PM CDT neoplasm of bone EKG, 12-LEAD (SCHEDULED) Routine 09/19/2021 Screeni ng for cancer 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 EKG, 12-LEAD (SCHEDULED) Routine 09/19/2021 Screeni ng for cancer 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 IR NEPHROSTOMY EXCHANGE Routine 09/15/[address] Results for 60 12:01 PM CDT infectious disease this proc edure are in the results section. [facility] Routine 09/12/2021 7:17 Screening for ca ncer Results for AM CDT Primary urothelial this proc edure carcinoma of are in the overlapping lesion of result s urinary organ section. CT CHEST ABDOMEN PELVIS W Routine 09/10/2021 7:38 Screen ing for cancer Results for CONTRAST PM CDT Primary urothelial this proc edure carcinoma of are in the overlapping lesion of result s urinary organ section. URINALYSIS MICROSCOPIC Routine 09/10/2021 1:52 Re sults for PM CDT this procedure are in the results section. MANUAL DIFFERENTIAL Routine 09/10/2021 1:52 Screening fo r cancer Results for PM CDT Primary urothelial this proc edure carcinoma of are in the overlapping lesion of result s urinary organ section. Results CBC Routine 09/10/2021 1:52 Screening for ca ncer Results for PM CDT Primary urothelial this proc edure carcinoma of are in the overlapping lesion of result s urinary organ section. FRACTIONATED BILIRUBIN Routine 09/10/2021 1:52 Screening for cancer Results for PM CDT Primary urothelial this proc edure carcinoma of are in the overlapping lesion of result s urinary organ section. TOTAL PROTEIN Routine 09/10/2021 1:52 Screening for ca ncer Results for PM CDT Primary urothelial this proc edure carcinoma of are in the overlapping lesion of result s urinary organ section. ASPARTATE Routine 09/10/2021 1:52 Screening for ca ncer Results for AMINOTRANSFERASE PM CDT Primary urothelial this procedure carcinoma of are in the overlapping lesion of result s urinary organ section. ALANINE AMINOTRANSFERASE Routine 09/10/2021 1:52 Screeni ng for cancer Results for PM CDT Primary urothelial this proc edure carcinoma of are in the overlapping lesion of result s urinary organ section. ALKALINE PHOSPHATASE Routine 09/10/2021 1:52 Screening f or cancer Results for PM CDT Primary urothelial this proc edure carcinoma of are in the overlapping lesion of result s urinary organ section. ALBUMIN LEVEL Routine 09/10/2021 1:52 Screening for ca ncer Results for PM CDT Primary urothelial this proc edure carcinoma of are in the overlapping lesion of result s urinary organ section. CALCIUM LEVEL TOTAL Routine 09/10/2021 1:52 Screening fo r cancer Results for PM CDT Primary urothelial this proc edure carcinoma of are in the overlapping lesion of result s urinary organ section. .GLOMERULAR FILTRATION Routine 09/10/2021 1:52 Screening for cancer Results for RATE PM CDT Primary urothelial this proc edure carcinoma of are in the overlapping lesion of result s urinary organ section. SERUM CREATININE Routine 09/10/2021 1:52 Screening for c ancer Results for PM CDT Primary urothelial this proc edure carcinoma of are in the overlapping lesion of result s urinary organ section. ELECTROLYTE PANEL Routine 09/10/2021 1:52 Screening for cancer Results for PM CDT Primary urothelial this proc edure carcinoma of are in the overlapping lesion of result s urinary organ section. BLOOD UREA NITROGEN Routine 09/10/2021 1:52 Screening fo r cancer Results for PM CDT Primary urothelial this proc edure carcinoma of are in the overlapping lesion of result s urinary organ section. GLUCOSE LEVEL Routine 09/10/2021 1:52 Screening for ca ncer Results for PM CDT Primary urothelial this proc edure carcinoma of are in the overlapping lesion of result s urinary organ section. HEPATITIS C VIRUS Routine 09/10/2021 1:52 Screening for cancer Results for ANTIBODY PM CDT Primary urothelial this proc edure carcinoma of are in the overlapping lesion of result s urinary organ section. HEPATITIS B SURFACE Routine 09/10/2021 1:52 Screening fo r cancer Results for ANTIGEN, SERUM PM CDT Primary urothelial this pr ocedure carcinoma of are in the overlapping lesion of result s urinary organ section. FREE THYROXINE Routine 09/10/2021 1:52 Screening for ca ncer Results for PM CDT Primary urothelial this proc edure carcinoma of are in the overlapping lesion of result s urinary organ section. FREE T3 Routine 09/10/2021 1:52 Screening for ca ncer Results for PM CDT Primary urothelial this proc edure carcinoma of are in the overlapping lesion of result s urinary organ section. THYROID STIMULATING Routine 09/10/2021 1:52 Screening fo r cancer Results for HORMONE PM CDT Primary urothelial this proc edure carcinoma of are in the overlapping lesion of result s urinary organ section. URINALYSIS WITH Routine 09/10/2021 1:52 Screening for ca ncer Results for MICROSCOPIC IF INDICATED PM CDT Primary urotheli al this procedure carcinoma of are in the overlapping lesion of result s urinary organ section. PROTHROMBIN TIME Routine 09/10/2021 1:52 Screening for c ancer Results for PM CDT Primary urothelial this proc edure carcinoma of are in the overlapping lesion of result s urinary organ section. APTT Routine 09/10/2021 1:52 Screening for ca ncer Results for PM CDT Primary urothelial this proc edure carcinoma of are in the overlapping lesion of result s urinary organ section. COMPLETE BLOOD COUNT W/ Routine 09/10/2021 1:52 Screenin g for cancer DIFFERENTIAL PM CDT 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 URIC ACID Routine 09/10/2021 1:52 Screening for ca ncer Results for PM CDT Primary urothelial this proc edure carcinoma of are in the overlapping lesion of result s urinary organ section. LACTATE DEHYDROGENASE Routine 09/10/2021 1:52 Screening for cancer Results for PM CDT Primary urothelial this proc edure carcinoma of are in the overlapping lesion of result s urinary organ section. PHOSPHORUS LEVEL Routine 09/10/2021 1:52 Screening for c ancer Results for PM CDT Primary urothelial this proc edure carcinoma of are in the overlapping lesion of result s urinary organ section. MAGNESIUM LEVEL Routine 09/10/2021 1:52 Screening for ca ncer Results for PM CDT Primary urothelial this proc edure carcinoma of are in the overlapping lesion of result s urinary organ section. COMPREHENSIVE METABOLIC Routine 09/10/2021 1:52 Screenin g for cancer PANEL PM CDT 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 EKG, 12-LEAD (SCHEDULED) Routine 09/10/2021 Screeni ng for cancer 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 NM BONE SCAN WHOLE BODY Routine 08/19/2021 2:26 Primary urothe lial Results for PM CDT carcinoma of this procedure overlapping lesion of are in the urinary organ results section. URINALYSIS MICROSCOPIC Routine 08/19/2021 Resul ts for 11:08 AM CDT this procedure are in the results section. PROTEIN / CREATININE Routine 08/19/2021 Primary urothelial R esults for RATIO URINE 11:08 AM CDT carcinoma of this procedure overlapping lesion of are in the urinary organ results section. URINALYSIS WITH Routine 08/19/2021 Primary urothelial Result s for MICROSCOPIC IF INDICATED 11:08 AM CDT carcinoma of thi s procedure overlapping lesion of are in the urinary organ results section. MANUAL DIFFERENTIAL Routine 08/19/2021 Primary urothelial Re sults for 11:04 AM CDT carcinoma of this procedure overlapping lesion of are in the urinary organ results section. Results CBC Routine 08/19/2021 Primary urothelial Results f or 11:04 AM CDT carcinoma of this procedure overlapping lesion of are in the urinary organ results section. FRACTIONATED BILIRUBIN Routine 08/19/2021 Primary urothelial Results for 11:04 AM CDT carcinoma of this procedure overlapping lesion of are in the urinary organ results section. TOTAL PROTEIN Routine 08/19/2021 Primary urothelial Results for 11:04 AM CDT carcinoma of this procedure overlapping lesion of are in the urinary organ results section. ASPARTATE Routine 08/19/2021 Primary urothelial Results f or AMINOTRANSFERASE 11:04 AM CDT carcinoma of this proced ure overlapping lesion of are in the urinary organ results section. ALANINE AMINOTRANSFERASE Routine 08/19/2021 Primary urotheli al Results for 11:04 AM CDT carcinoma of this procedure overlapping lesion of are in the urinary organ results section. ALKALINE PHOSPHATASE Routine 08/19/2021 Primary urothelial R esults for 11:04 AM CDT carcinoma of this procedure overlapping lesion of are in the urinary organ results section. ALBUMIN LEVEL Routine 08/19/2021 Primary urothelial Results for 11:04 AM CDT carcinoma of this procedure overlapping lesion of are in the urinary organ results section. CALCIUM LEVEL TOTAL Routine 08/19/2021 Primary urothelial Re sults for 11:04 AM CDT carcinoma of this procedure overlapping lesion of are in the urinary organ results section. .GLOMERULAR FILTRATION Routine 08/19/2021 Primary urothelial Results for RATE 11:04 AM CDT carcinoma of this procedure overlapping lesion of are in the urinary organ results section. SERUM CREATININE Routine 08/19/2021 Primary urothelial Resul ts for 11:04 AM CDT carcinoma of this procedure overlapping lesion of are in the urinary organ results section. ELECTROLYTE PANEL Routine 08/19/2021 Primary urothelial Resu lts for 11:04 AM CDT carcinoma of this procedure overlapping lesion of are in the urinary organ results section. BLOOD UREA NITROGEN Routine 08/19/2021 Primary urothelial Re sults for 11:04 AM CDT carcinoma of this procedure overlapping lesion of are in the urinary organ results section. GLUCOSE LEVEL Routine 08/19/2021 Primary urothelial Results for 11:04 AM CDT carcinoma of this procedure overlapping lesion of are in the urinary organ results section. COMPREHENSIVE METABOLIC Routine 08/19/2021 Primary urothelia l PANEL 11:04 AM CDT carcinoma of overlapping lesion of urinary organ MAGNESIUM LEVEL Routine 08/19/2021 Primary urothelial Result s for 11:04 AM CDT carcinoma of this procedure overlapping lesion of are in the urinary organ results section. COMPLETE BLOOD COUNT W/ Routine 08/19/2021 Primary urothelia l DIFFERENTIAL 11:04 AM CDT carcinoma of overlapping lesion of urinary organ LIPASE LEVEL Routine 08/19/2021 Primary urothelial Results f or 11:04 AM CDT carcinoma of this procedure overlapping lesion of are in the urinary organ results section. AMYLASE LEVEL Routine 08/19/2021 Primary urothelial Results for 11:04 AM CDT carcinoma of this procedure overlapping lesion of are in the urinary organ results section. FREE THYROXINE Routine 08/19/2021 Primary urothelial Results for 11:04 AM CDT carcinoma of this procedure overlapping lesion of are in the urinary organ results section. THYROID STIMULATING Routine 08/19/2021 Primary urothelial Re sults for HORMONE 11:04 AM CDT carcinoma of this procedure overlapping lesion of are in the urinary organ results section. PHOSPHORUS LEVEL Routine 08/19/2021 Primary urothelial Resul ts for 11:04 AM CDT carcinoma of this procedure overlapping lesion of are in the urinary organ results section. CT CHEST ABDOMEN PELVIS W Routine 08/19/2021 Primary urothel ial Results for CONTRAST 10:03 AM CDT carcinoma of this procedure overlapping lesion of are in the urinary organ results section. POC CREATININE Routine 08/19/2021 9:02 Results fo r AM CDT this procedure are in the results section. MANUAL DIFFERENTIAL Routine 08/05/2021 Primary urothelial Re sults for 10:52 AM CDT carcinoma of this procedure overlapping lesion of are in the urinary organ results section. FRACTIONATED BILIRUBIN Routine 08/05/2021 Primary urothelial Results for 10:52 AM CDT carcinoma of this procedure overlapping lesion of are in the urinary organ results section. Results CBC Routine 08/05/2021 Primary urothelial Results f or 10:52 AM CDT carcinoma of this procedure overlapping lesion of are in the urinary organ results section. TOTAL PROTEIN Routine 08/05/2021 Primary urothelial Results for 10:52 AM CDT carcinoma of this procedure overlapping lesion of are in the urinary organ results section. ASPARTATE Routine 08/05/2021 Primary urothelial Results f or AMINOTRANSFERASE 10:52 AM CDT carcinoma of this proced ure overlapping lesion of are in the urinary organ results section. ALANINE AMINOTRANSFERASE Routine 08/05/2021 Primary urotheli al Results for 10:52 AM CDT carcinoma of this procedure overlapping lesion of are in the urinary organ results section. ALKALINE PHOSPHATASE Routine 08/05/2021 Primary urothelial R esults for 10:52 AM CDT carcinoma of this procedure overlapping lesion of are in the urinary organ results section. ALBUMIN LEVEL Routine 08/05/2021 Primary urothelial Results for 10:52 AM CDT carcinoma of this procedure overlapping lesion of are in the urinary organ results section. CALCIUM LEVEL TOTAL Routine 08/05/2021 Primary urothelial Re sults for 10:52 AM CDT carcinoma of this procedure overlapping lesion of are in the urinary organ results section. .GLOMERULAR FILTRATION Routine 08/05/2021 Primary urothelial Results for RATE 10:52 AM CDT carcinoma of this procedure overlapping lesion of are in the urinary organ results section. SERUM CREATININE Routine 08/05/2021 Primary urothelial Resul ts for 10:52 AM CDT carcinoma of this procedure overlapping lesion of are in the urinary organ results section. ELECTROLYTE PANEL Routine 08/05/2021 Primary urothelial Resu lts for 10:52 AM CDT carcinoma of this procedure overlapping lesion of are in the urinary organ results section. BLOOD UREA NITROGEN Routine 08/05/2021 Primary urothelial Re sults for 10:52 AM CDT carcinoma of this procedure overlapping lesion of are in the urinary organ results section. GLUCOSE LEVEL Routine 08/05/2021 Primary urothelial Results for 10:52 AM CDT carcinoma of this procedure overlapping lesion of are in the urinary organ results section. HEMOGLOBIN A1C Routine 08/05/2021 Primary urothelial Results for 10:52 AM CDT carcinoma of this procedure overlapping lesion of are in the urinary organ results section. COMPREHENSIVE METABOLIC Routine 08/05/2021 Primary urothelia l PANEL 10:52 AM CDT carcinoma of overlapping lesion of urinary organ MAGNESIUM LEVEL Routine 08/05/2021 Primary urothelial Result s for 10:52 AM CDT carcinoma of this procedure overlapping lesion of are in the urinary organ results section. COMPLETE BLOOD COUNT W/ Routine 08/05/2021 Primary urothelia l DIFFERENTIAL 10:52 AM CDT carcinoma of overlapping lesion of urinary organ LIPASE LEVEL Routine 08/05/2021 Primary urothelial Results f or 10:52 AM CDT carcinoma of this procedure overlapping lesion of are in the urinary organ results section. AMYLASE LEVEL Routine 08/05/2021 Primary urothelial Results for 10:52 AM CDT carcinoma of this procedure overlapping lesion of are in the urinary organ results section. FREE THYROXINE Routine 08/05/2021 Primary urothelial Results for 10:52 AM CDT carcinoma of this procedure overlapping lesion of are in the urinary organ results section. THYROID STIMULATING Routine 08/05/2021 Primary urothelial Re sults for HORMONE 10:52 AM CDT carcinoma of this procedure overlapping lesion of are in the urinary organ results section. FRACTIONATED BILIRUBIN Routine 07/22/2021 9:42 Primary urothel ial Results for AM CDT carcinoma of this procedure overlapping lesion of are in the urinary organ results section. TOTAL PROTEIN Routine 07/22/2021 9:42 Primary urothelial Resul ts for AM CDT carcinoma of this procedure overlapping lesion of are in the urinary organ results section. ASPARTATE Routine 07/22/2021 9:42 Primary urothelial Result s for AMINOTRANSFERASE AM CDT carcinoma of this proced ure overlapping lesion of are in the urinary organ results section. ALANINE AMINOTRANSFERASE Routine 07/22/2021 9:42 Primary uroth elial Results for AM CDT carcinoma of this procedure overlapping lesion of are in the urinary organ results section. ALKALINE PHOSPHATASE Routine 07/22/2021 9:42 Primary urothelia l Results for AM CDT carcinoma of this procedure overlapping lesion of are in the urinary organ results section. ALBUMIN LEVEL Routine 07/22/2021 9:42 Primary urothelial Resul ts for AM CDT carcinoma of this procedure overlapping lesion of are in the urinary organ results section. CALCIUM LEVEL TOTAL Routine 07/22/2021 9:42 Primary urothelial Results for AM CDT carcinoma of this procedure overlapping lesion of are in the urinary organ results section. .GLOMERULAR FILTRATION Routine 07/22/2021 9:42 Primary urothel ial Results for RATE AM CDT carcinoma of this procedure overlapping lesion of are in the urinary organ results section. SERUM CREATININE Routine 07/22/2021 9:42 Primary urothelial Re sults for AM CDT carcinoma of this procedure overlapping lesion of are in the urinary organ results section. ELECTROLYTE PANEL Routine 07/22/2021 9:42 Primary urothelial R esults for AM CDT carcinoma of this procedure overlapping lesion of are in the urinary organ results section. BLOOD UREA NITROGEN Routine 07/22/2021 9:42 Primary urothelial Results for AM CDT carcinoma of this procedure overlapping lesion of are in the urinary organ results section. GLUCOSE LEVEL Routine 07/22/2021 9:42 Primary urothelial Resul ts for AM CDT carcinoma of this procedure overlapping lesion of are in the urinary organ results section. COMPREHENSIVE METABOLIC Routine 07/22/2021 9:42 Primary urothe lial PANEL AM CDT carcinoma of overlapping lesion of urinary organ MAGNESIUM LEVEL Routine 07/22/2021 9:42 Primary urothelial Res ults for AM CDT carcinoma of this procedure overlapping lesion of are in the urinary organ results section. LIPASE LEVEL Routine 07/22/2021 9:42 Primary urothelial Result s for AM CDT carcinoma of this procedure overlapping lesion of are in the urinary organ results section. AMYLASE LEVEL Routine 07/22/2021 9:42 Primary urothelial Resul ts for AM CDT carcinoma of this procedure overlapping lesion of are in the urinary organ results section. FREE THYROXINE Routine 07/22/2021 9:42 Primary urothelial Resu lts for AM CDT carcinoma of this procedure overlapping lesion of are in the urinary organ results section. THYROID STIMULATING Routine 07/22/2021 9:42 Primary urothelial Results for HORMONE AM CDT carcinoma of this procedure overlapping lesion of are in the urinary organ results section. MANUAL DIFFERENTIAL Routine 07/22/2021 9:39 Primary urothelial Results for AM CDT carcinoma of this procedure overlapping lesion of are in the urinary organ results section. Results CBC Routine 07/22/2021 9:39 Primary urothelial Result s for AM CDT carcinoma of this procedure overlapping lesion of are in the urinary organ results section. COMPLETE BLOOD COUNT W/ Routine 07/22/2021 9:39 Primary urothe lial DIFFERENTIAL AM CDT carcinoma of overlapping lesion of urinary organ MANUAL DIFFERENTIAL Routine 07/08/2021 9:56 Primary urothelial Results for AM CDT carcinoma of this procedure overlapping lesion of are in the urinary organ results section. Results CBC Routine 07/08/2021 9:56 Primary urothelial Result s for AM CDT carcinoma of this procedure overlapping lesion of are in the urinary organ results section. FRACTIONATED BILIRUBIN Routine 07/08/2021 9:56 Primary urothel ial Results for AM CDT carcinoma of this procedure overlapping lesion of are in the urinary organ results section. TOTAL PROTEIN Routine 07/08/2021 9:56 Primary urothelial Resul ts for AM CDT carcinoma of this procedure overlapping lesion of are in the urinary organ results section. ASPARTATE Routine 07/08/2021 9:56 Primary urothelial Result s for AMINOTRANSFERASE AM CDT carcinoma of this proced ure overlapping lesion of are in the urinary organ results section. ALANINE AMINOTRANSFERASE Routine 07/08/2021 9:56 Primary uroth elial Results for AM CDT carcinoma of this procedure overlapping lesion of are in the urinary organ results section. ALKALINE PHOSPHATASE Routine 07/08/2021 9:56 Primary urothelia l Results for AM CDT carcinoma of this procedure overlapping lesion of are in the urinary organ results section. ALBUMIN LEVEL Routine 07/08/2021 9:56 Primary urothelial Resul ts for AM CDT carcinoma of this procedure overlapping lesion of are in the urinary organ results section. CALCIUM LEVEL TOTAL Routine 07/08/2021 9:56 Primary urothelial Results for AM CDT carcinoma of this procedure overlapping lesion of are in the urinary organ results section. .GLOMERULAR FILTRATION Routine 07/08/2021 9:56 Primary urothel ial Results for RATE AM CDT carcinoma of this procedure overlapping lesion of are in the urinary organ results section. SERUM CREATININE Routine 07/08/2021 9:56 Primary urothelial Re sults for AM CDT carcinoma of this procedure overlapping lesion of are in the urinary organ results section. ELECTROLYTE PANEL Routine 07/08/2021 9:56 Primary urothelial R esults for AM CDT carcinoma of this procedure overlapping lesion of are in the urinary organ results section. 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 COMPREHENSIVE METABOLIC Routine 07/08/2021 9:56 Primary urothe lial PANEL AM CDT carcinoma of overlapping lesion of urinary organ MAGNESIUM LEVEL Routine 07/08/2021 9:56 Primary urothelial Res ults for AM CDT carcinoma of this procedure overlapping lesion of are in the urinary organ results section. COMPLETE BLOOD COUNT W/ Routine 07/08/2021 9:56 Primary urothe lial DIFFERENTIAL AM CDT carcinoma of overlapping lesion of urinary organ LIPASE LEVEL Routine 07/08/2021 9:56 Primary urothelial Result s for AM CDT carcinoma of this procedure overlapping lesion of are in the urinary organ results section. AMYLASE LEVEL Routine 07/08/2021 9:56 Primary urothelial Resul ts for AM CDT carcinoma of this procedure overlapping lesion of are in the urinary organ results section. FREE THYROXINE Routine 07/08/2021 9:56 Primary urothelial Resu lts for AM CDT carcinoma of this procedure overlapping lesion of are in the urinary organ results section. THYROID STIMULATING Routine 07/08/2021 9:56 Primary urothelial Results for HORMONE AM CDT carcinoma of this procedure overlapping lesion of are in the urinary organ results section. PHOSPHORUS LEVEL Routine 07/08/2021 9:56 Secondary malignant R esults for AM CDT neoplasm of bone this procedure Personal history of are in t he malignant neoplasm of result s bladder section. MANUAL DIFFERENTIAL Routine 06/24/2021 Primary urothelial Re sults for 12:24 PM CDT carcinoma of this procedure overlapping lesion of are in the urinary organ results section. Results CBC Routine 06/24/2021 Primary urothelial Results f or 12:24 PM CDT carcinoma of this procedure overlapping lesion of are in the urinary organ results section. FRACTIONATED BILIRUBIN Routine 06/24/2021 Primary urothelial Results for 12:24 PM CDT carcinoma of this procedure overlapping lesion of are in the urinary organ results section. TOTAL PROTEIN Routine 06/24/2021 Primary urothelial Results for 12:24 PM CDT carcinoma of this procedure overlapping lesion of are in the urinary organ results section. ASPARTATE Routine 06/24/2021 Primary urothelial Results f or AMINOTRANSFERASE 12:24 PM CDT carcinoma of this proced ure overlapping lesion of are in the urinary organ results section. ALANINE AMINOTRANSFERASE Routine 06/24/2021 Primary urotheli al Results for 12:24 PM CDT carcinoma of this procedure overlapping lesion of are in the urinary organ results section. ALKALINE PHOSPHATASE Routine 06/24/2021 Primary urothelial R esults for 12:24 PM CDT carcinoma of this procedure overlapping lesion of are in the urinary organ results section. ALBUMIN LEVEL Routine 06/24/2021 Primary urothelial Results for 12:24 PM CDT carcinoma of this procedure overlapping lesion of are in the urinary organ results section. CALCIUM LEVEL TOTAL Routine 06/24/2021 Primary urothelial Re sults for 12:24 PM CDT carcinoma of this procedure overlapping lesion of are in the urinary organ results section. .GLOMERULAR FILTRATION Routine 06/24/2021 Primary urothelial Results for RATE 12:24 PM CDT carcinoma of this procedure overlapping lesion of are in the urinary organ results section. SERUM CREATININE Routine 06/24/2021 Primary urothelial Resul ts for 12:24 PM CDT carcinoma of this procedure overlapping lesion of are in the urinary organ results section. ELECTROLYTE PANEL Routine 06/24/2021 Primary urothelial Resu lts for 12:24 PM CDT carcinoma of this procedure overlapping lesion of are in the urinary organ results section. BLOOD UREA NITROGEN Routine 06/24/2021 Primary urothelial Re sults for 12:24 PM CDT carcinoma of this procedure overlapping lesion of are in the urinary organ results section. GLUCOSE LEVEL Routine 06/24/2021 Primary urothelial Results for 12:24 PM CDT carcinoma of this procedure overlapping lesion of are in the urinary organ results section. COMPREHENSIVE METABOLIC Routine 06/24/2021 Primary urothelia l PANEL 12:24 PM CDT carcinoma of overlapping lesion of urinary organ MAGNESIUM LEVEL Routine 06/24/2021 Primary urothelial Result s for 12:24 PM CDT carcinoma of this procedure overlapping lesion of are in the urinary organ results section. COMPLETE BLOOD COUNT W/ Routine 06/24/2021 Primary urothelia l DIFFERENTIAL 12:24 PM CDT carcinoma of overlapping lesion of urinary organ LIPASE LEVEL Routine 06/24/2021 Primary urothelial Results f or 12:24 PM CDT carcinoma of this procedure overlapping lesion of are in the urinary organ results section. AMYLASE LEVEL Routine 06/24/2021 Primary urothelial Results for 12:24 PM CDT carcinoma of this procedure overlapping lesion of are in the urinary organ results section. FREE THYROXINE Routine 06/24/2021 Primary urothelial Results for 12:24 PM CDT carcinoma of this procedure overlapping lesion of are in the urinary organ results section. THYROID STIMULATING Routine 06/24/2021 Primary urothelial Re sults for HORMONE 12:24 PM CDT carcinoma of this procedure overlapping lesion of are in the urinary organ results section. MANUAL DIFFERENTIAL AM 06/18/2021 5:12 Resul ts for AM CDT this procedure are in the results section. Results CBC AM 06/18/2021 5:12 Results for AM CDT this procedure are in the results section. FRACTIONATED BILIRUBIN AM 06/18/2021 5:12 Re sults for AM CDT this procedure are in the results section. TOTAL PROTEIN AM 06/18/2021 5:12 Results for AM CDT this procedure are in the results section. ASPARTATE AM 06/18/2021 5:12 Results for AMINOTRANSFERASE AM CDT this proced ure are in the results section. ALANINE AMINOTRANSFERASE AM 06/18/2021 5:12 Results for AM CDT this procedure are in the results section. ALKALINE PHOSPHATASE AM 06/18/2021 5:12 Resu lts for AM CDT this procedure are in the results section. CALCIUM LEVEL TOTAL AM 06/18/2021 5:12 Resul ts for AM CDT this procedure are in the results section. .GLOMERULAR FILTRATION AM 06/18/2021 5:12 Re sults for RATE AM CDT this procedure are in the results section. SERUM CREATININE AM 06/18/2021 5:12 Results for AM CDT this procedure are in the results section. ELECTROLYTE PANEL AM 06/18/2021 5:12 Results for AM CDT this procedure are in the results section. BLOOD UREA NITROGEN AM 06/18/2021 5:12 Resul ts for AM CDT this procedure are in the results section. GLUCOSE LEVEL AM 06/18/2021 5:12 Results for AM CDT this procedure are in the results section. COMPREHENSIVE METABOLIC AM 06/18/2021 5:12 PANEL AM CDT COMPLETE BLOOD COUNT W/ AM 06/18/2021 5:12 DIFFERENTIAL AM CDT ALBUMIN LEVEL AM 06/18/2021 Results for 5:12 AM CDT this procedure are in the results section. IR NEPHROSTOMY EXCHANGE Routine 06/17/2021 9:26 Nephrostomy R esults for 60 AM CDT this procedure are in the results section. GENERAL LABORATORY ADD ON STAT 06/17/2021 7:38 Results for TEST AM CDT this procedure are in the results section. MAGNESIUM LEVEL AM 06/17/2021 3:09 Results f or AM CDT this procedure are in the results section. PHOSPHORUS LEVEL AM 06/17/2021 3:09 Results for AM CDT this procedure are in the results section. MANUAL DIFFERENTIAL AM 06/17/2021 3:09 Resul ts for AM CDT this procedure are in the results section. Results CBC AM 06/17/2021 3:09 Results for AM CDT this procedure are in the results section. FRACTIONATED BILIRUBIN AM 06/17/2021 3:09 Re sults for AM CDT this procedure are in the results section. TOTAL PROTEIN AM 06/17/2021 3:09 Results for AM CDT this procedure are in the results section. ASPARTATE AM 06/17/2021 3:09 Results for AMINOTRANSFERASE AM CDT this proced ure are in the results section. ALANINE AMINOTRANSFERASE AM 06/17/2021 3:09 Results for AM CDT this procedure are in the results section. ALKALINE PHOSPHATASE AM 06/17/2021 3:09 Resu lts for AM CDT this procedure are in the results section. CALCIUM LEVEL TOTAL AM 06/17/2021 3:09 Resul ts for AM CDT this procedure are in the results section. .GLOMERULAR FILTRATION AM 06/17/2021 3:09 Re sults for RATE AM CDT this procedure are in the results section. SERUM CREATININE AM 06/17/2021 3:09 Results for AM CDT this procedure are in the results section. ELECTROLYTE PANEL AM 06/17/2021 3:09 Results for AM CDT this procedure are in the results section. BLOOD UREA NITROGEN AM 06/17/2021 3:09 Resul ts for AM CDT this procedure are in the results section. GLUCOSE LEVEL AM 06/17/2021 3:09 Results for AM CDT this procedure are in the results section. COMPREHENSIVE METABOLIC AM 06/17/2021 3:09 PANEL AM CDT COMPLETE BLOOD COUNT W/ AM 06/17/2021 3:09 DIFFERENTIAL AM CDT ALBUMIN LEVEL AM 06/17/2021 3:09 Results for AM CDT this procedure are in the results section. RESPIRATORY VIRAL Now 06/16/2021 8:31 Results for MULTIPLEX PCR PANEL, PM CDT this pr ocedure NASOPHARYNGEAL SWAB are in t he results section. MANUAL DIFFERENTIAL AM 06/16/2021 2:22 Resul ts for AM CDT this procedure are in the results section. Results CBC AM 06/16/2021 2:22 Results for AM CDT this procedure are in the results section. FRACTIONATED BILIRUBIN AM 06/16/2021 2:22 Re sults for AM CDT this procedure are in the results section. TOTAL PROTEIN AM 06/16/2021 2:22 Results for AM CDT this procedure are in the results section. ASPARTATE AM 06/16/2021 2:22 Results for AMINOTRANSFERASE AM CDT this proced ure are in the results section. ALANINE AMINOTRANSFERASE AM 06/16/2021 2:22 Results for AM CDT this procedure are in the results section. ALKALINE PHOSPHATASE AM 06/16/2021 2:22 Resu lts for AM CDT this procedure are in the results section. CALCIUM LEVEL TOTAL AM 06/16/2021 2:22 Resul ts for AM CDT this procedure are in the results section. .GLOMERULAR FILTRATION AM 06/16/2021 2:22 Re sults for RATE AM CDT this procedure are in the results section. SERUM CREATININE AM 06/16/2021 2:22 Results for AM CDT this procedure are in the results section. ELECTROLYTE PANEL AM 06/16/2021 2:22 Results for AM CDT this procedure are in the results section. BLOOD UREA NITROGEN AM 06/16/2021 2:22 Resul ts for AM CDT this procedure are in the results section. GLUCOSE LEVEL AM 06/16/2021 2:22 Results for AM CDT this procedure are in the results section. COMPREHENSIVE METABOLIC AM 06/16/2021 2:22 PANEL AM CDT COMPLETE BLOOD COUNT W/ AM 06/16/2021 2:22 DIFFERENTIAL AM CDT ALBUMIN LEVEL AM 06/16/2021 2:22 Results for AM CDT this procedure are in the results section. OSI CT ABDOMEN AND PELVIS Routine 06/15/2021 Cancer Re sults for 11:50 PM CDT this procedure are in the results section. POC CHEM 8 Routine 06/15/2021 Results for 12:33 PM CDT this procedure are in the results section. COVID-19 (SARS-COV-2) Now 06/15/2021 Result s for ASYMPTOMATIC-LT 12:16 PM CDT this procedu re are in the results section. URINALYSIS MICROSCOPIC Routine 06/15/2021 Resul ts for 10:15 AM CDT this procedure are in the results section. URINALYSIS WITH Now 06/15/2021 Results for MICROSCOPIC IF INDICATED 10:15 AM CDT thi s procedure are in the results section. PROCALCITONIN Now 06/15/2021 Results for 10:15 AM CDT this procedure are in the results section. C REACTIVE PROTEIN Now 06/15/2021 Results f or 10:15 AM CDT this procedure are in the results section. LACTIC ACID, VENOUS STAT 06/15/2021 Results for 10:15 AM CDT this procedure are in the results section. URINE CULTURE Now 06/15/2021 Results for 10:15 AM CDT this procedure are in the results section. BLOODCULTURE Now 06/15/2021 Results for 10:15 AM CDT this procedure are in the results section. FRACTIONATED BILIRUBIN Now 06/15/2021 8:23 Re sults for AM CDT this procedure are in the results section. TOTAL PROTEIN Now 06/15/2021 8:23 Results for AM CDT this procedure are in the results section. ASPARTATE Now 06/15/2021 8:23 Results for AMINOTRANSFERASE AM CDT this proced ure are in the results section. ALANINE AMINOTRANSFERASE Now 06/15/2021 8:23 Results for AM CDT this procedure are in the results section. ALKALINE PHOSPHATASE Now 06/15/2021 8:23 Resu lts for AM CDT this procedure are in the results section. ALBUMIN LEVEL Now 06/15/2021 8:23 Results for AM CDT this procedure are in the results section. CALCIUM LEVEL TOTAL Now 06/15/2021 8:23 Resul ts for AM CDT this procedure are in the results section. .GLOMERULAR FILTRATION Now 06/15/2021 8:23 Re sults for RATE AM CDT this procedure are in the results section. SERUM CREATININE Now 06/15/2021 8:23 Results for AM CDT this procedure are in the results section. ELECTROLYTE PANEL Now 06/15/2021 8:23 Results for AM CDT this procedure are in the results section. BLOOD UREA NITROGEN Now 06/15/2021 8:23 Resul ts for AM CDT this procedure are in the results section. GLUCOSE LEVEL Now 06/15/2021 8:23 Results for AM CDT this procedure are in the results section. MANUAL DIFFERENTIAL Now 06/15/2021 8:23 Resul ts for AM CDT this procedure are in the results section. Results CBC STAT 06/15/2021 8:23 Results for AM CDT this procedure are in the results section. APTT Now 06/15/2021 8:23 Results for AM CDT this procedure are in the results section. PROTHROMBIN TIME Now 06/15/2021 8:23 Results for AM CDT this procedure are in the results section. PHOSPHORUS LEVEL Now 06/15/2021 8:23 Results for AM CDT this procedure are in the results section. MAGNESIUM LEVEL Now 06/15/2021 8:23 Results f or AM CDT this procedure are in the results section. COMPREHENSIVE METABOLIC Now 06/15/2021 8:23 PANEL AM CDT COMPLETE BLOOD COUNT W/ Now 06/15/2021 8:[address] CHEST ABDOMEN PELVIS W Routine 06/07/2021 Secondary malig nant Results for CONTRAST 12:52 PM CDT neoplasm of bone this procedure Personal history of are in t he malignant neoplasm of result s bladder section. 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 Results CBC Routine 05/27/2021 Primary urothelial Results f or 10:01 AM CDT carcinoma of this procedure overlapping lesion of are in the urinary organ results section. FRACTIONATED BILIRUBIN Routine 05/27/2021 Primary urothelial Results for 10:01 AM CDT carcinoma of this procedure overlapping lesion of are in the urinary organ results section. TOTAL PROTEIN Routine 05/27/2021 Primary urothelial Results for 10:01 AM CDT carcinoma of this procedure overlapping lesion of are in the urinary organ results section. ASPARTATE Routine 05/27/2021 Primary urothelial Results f or AMINOTRANSFERASE 10:01 AM CDT carcinoma of this proced ure overlapping lesion of are in the urinary organ results section. ALANINE AMINOTRANSFERASE Routine 05/27/2021 Primary urotheli al Results for 10:01 AM CDT carcinoma of this procedure overlapping lesion of are in the urinary organ results section. ALKALINE PHOSPHATASE Routine 05/27/2021 Primary urothelial R esults for 10:01 AM CDT carcinoma of this procedure overlapping lesion of are in the urinary organ results section. ALBUMIN LEVEL Routine 05/27/2021 Primary urothelial Results for 10:01 AM CDT carcinoma of this procedure overlapping lesion of are in the urinary organ results section. CALCIUM LEVEL TOTAL Routine 05/27/2021 Primary urothelial Re sults for 10:01 AM CDT carcinoma of this procedure overlapping lesion of are in the urinary organ results section. .GLOMERULAR FILTRATION Routine 05/27/2021 Primary urothelial Results for RATE 10:01 AM CDT carcinoma of this procedure overlapping lesion of are in the urinary organ results section. SERUM CREATININE Routine 05/27/2021 Primary urothelial Resul ts for 10:01 AM CDT carcinoma of this procedure overlapping lesion of are in the urinary organ results section. ELECTROLYTE PANEL Routine 05/27/2021 Primary urothelial Resu lts for 10:01 AM CDT carcinoma of this procedure overlapping lesion of are in the urinary organ results section. BLOOD UREA NITROGEN Routine 05/27/2021 Primary urothelial Re sults for 10:01 AM CDT carcinoma of this procedure overlapping lesion of are in the urinary organ results section. GLUCOSE LEVEL Routine 05/27/2021 Primary urothelial Results for 10:01 AM CDT carcinoma of this procedure overlapping lesion of are in the urinary organ results section. COMPREHENSIVE METABOLIC Routine 05/27/2021 Primary urothelia l PANEL 10:01 AM CDT carcinoma of overlapping lesion of urinary organ MAGNESIUM LEVEL Routine 05/27/2021 Primary urothelial Result s for 10:01 AM CDT carcinoma of this procedure overlapping lesion of are in the urinary organ results section. COMPLETE BLOOD COUNT W/ Routine 05/27/2021 Primary urothelia l DIFFERENTIAL 10:01 AM CDT carcinoma of overlapping lesion of urinary organ LIPASE LEVEL Routine 05/27/2021 Primary urothelial Results f or 10:01 AM CDT carcinoma of this procedure overlapping lesion of are in the urinary organ results section. AMYLASE LEVEL Routine 05/27/2021 Primary urothelial Results for 10:01 AM CDT carcinoma of this procedure overlapping lesion of are in the urinary organ results section. FREE THYROXINE Routine 05/27/2021 Primary urothelial Results for 10:01 AM CDT carcinoma of this procedure overlapping lesion of are in the urinary organ results section. THYROID STIMULATING Routine 05/27/2021 Primary urothelial Re sults for HORMONE 10:01 AM CDT carcinoma of this procedure overlapping lesion of are in the urinary organ results section. 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 TOTAL PROTEIN Routine 05/13/2021 9:31 Primary urothelial Resul ts for AM [employer] carcinoma of this procedure overlapping lesion of are in the urinary organ results section. ASPARTATE Routine 05/13/2021 9:31 Primary urothelial Result s for AMINOTRANSFERASE AM [employer] carcinoma of this proced ure overlapping lesion of are in the urinary organ results section. 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 ALBUMIN LEVEL Routine 05/13/2021 9:31 Primary urothelial Resul ts for AM [employer] carcinoma of this procedure overlapping lesion of are in the urinary organ results section. 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 SERUM CREATININE Routine 05/13/2021 9:31 Primary urothelial Re sults for AM [employer] carcinoma of this procedure overlapping lesion of are in the urinary organ results section. ELECTROLYTE PANEL Routine 05/13/2021 9:31 Primary urothelial R esults for AM [employer] carcinoma of this procedure overlapping lesion of are in the urinary organ results section. 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 GLUCOSE LEVEL Routine 05/13/2021 9:31 Primary urothelial Resul ts for AM [employer] carcinoma of this procedure overlapping lesion of are in the urinary organ results section. 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 Results CBC Routine 05/13/2021 9:31 Primary urothelial Result s for AM [employer] carcinoma of this procedure overlapping lesion of are in the urinary organ results section. COMPREHENSIVE METABOLIC Routine 05/13/2021 9:31 Primary urothe lial PANEL AM [employer] carcinoma of overlapping lesion of urinary organ MAGNESIUM LEVEL Routine 05/13/2021 9:31 Primary urothelial Res ults for AM [employer] carcinoma of this procedure overlapping lesion of are in the urinary organ results section. COMPLETE BLOOD COUNT W/ Routine 05/13/2021 9:31 Primary urothe lial DIFFERENTIAL AM [employer] carcinoma of overlapping lesion of urinary organ after 05/01/2021 Results .Serum Creatinine (04/24/2022 12:32 PM [employer])Only the most recent of29 results within the time period is included. P athologist Signature Creatinine 0.94 0.67 - 1.17 [facility] mg/dL Comment: Testing Performed at [facility] Lab Am [facility], [address], [address], [place] [address] Specimen Anatomical Collection Method Collection Time Receive d Time (Source) Location / / Volume Laterality Blood 04/24/2022 12:32 04/24/2022 PM [employer] 12:38 PM [employer]ER Carina REMY LAB BLOOD ORDERABLES Performing Organization Address City/State/ZIP Code Phon e Number [facility] [address] [place] [address]. [place] [address] [address] (ABNORMAL) .CBC (04/24/2022 12:32 PM [employer])Only the most recent of27 resultswithin the time period is included. athologist Signature WBC 10.6 4.0 - 11.0 [facility] K/uL RBC 3.32 (L) 4.50 - 6.00 [facility] M/uL Hgb 9.6 (L) 14.0 - 18.0 [facility] gm/dL Comment: As part of CBC or as an individ ual orderable testing performed at [facility] Field Education Coordinator [facility], [address] , [address], [place] [address] Hct 31.1 (L) 40.0 - 54.0 % [facility] Comment: As part of CBC or as an individ ual orderable testing performed at [facility], [address] , [address], [place] [address] MCV 94 82 - 98 fL [facility] MCH 28.9 27.0 - 31.0 pg [facility] MCHC 30.9 (L) 31.0 - 36.0 gm/dL [facility] RDW-SD 52.7 (H) 35.1 - 46.3 fL [facility] RDW-CV 15.5 12.0 - 15.5 % [facility] Platelet count 357 140 - 440 K/uL [facility] Comment: As part of CBC or as an individ ual orderable testing performed at [facility] Lab Field Education Coordinator [facility], [address] , [address], [place] [address] MPV 9.4 4.0 - 10.4 fL [facility] INRBC 0.0 <=0.0 % [facility] Comment: The INRBC (instrument NRBC) value reflec ts the enumeration of nucleated red blood cells contained i n a 200uL sample of whole blood analyzed by the instrumen t. This value may differ from the NRBC value reported in a manual differential, which is based on a 100 cell differentia l. As part of CBC testing performed at [facility] [address], [address], [place] [address] Specimen Anatomical Collection Method Collection Time Receive d Time (Source) Location / / Volume Laterality Blood 04/24/2022 12:32 04/24/2022 PM [employer] 12:35 PM [employer] Carina REMY LAB BLOOD ORDERABLES Performing Organization Address City/State/ZIP Code Phon e Number [address] [place] [address] [address] Glomerular Filtration Rate (04/24/2022 12:32 PM [employer])Only the most recent of29 resultswithin the time period is included. athologist Signature eGFR 85 >=60 [facility] mL/min/1.73 sq. m Comment: The eGFRcr is calculated with the 2020 KD-EPI creatinine equation using creatinine, patient's age, and sex for adults 18 years of age and older. Other factors, especially muscle mass, may affect accuracy and need to be considered. According to the Kidney Disease: Improvi ng Global Outcomes (KDIGO) CKD Work Group 2012 Clinical Practice Guideline, chronic kidney disease (CKD) is defined as the abnormalities of kidney structure or function, present for more than 3 months, with implications for health. CKD should be c lassified by cause, GFR category, and albuminuria category. KDIGO guidelines provide the following GFR categories Stage Description GFR mL/min/1.73 m2 G1* Normal or high >= 90 G2* Mildly decreased 60-89 G3a Mildly to moderately decreased 45-59 G3b Moderately to severely decreased 30- 44 G4 Severely decreased 15-29 G5 Kidney failure <15 *In the absence of evidence of kidney da mage, neither G1 nor G2 fulfill criteria for CKD. Testing Performed at [facility], [address], [address], [place] [address] Specimen Anatomical Collection Method Collection Time Receive d Time (Source) Location / / Volume Laterality Blood 04/24/2022 12:32 04/24/2022 PM [employer]ER 12:38 PM [employer]IPMENT TENDER Carina REMY LAB BLOOD ORDERABLES Performing Organization Address City/[facility] e Number [address] [place] [address] [address] Fractionated Bilirubin (04/24/2022 12:32 PM [employer]IPMENT TENDER)Only the most recent of28 resultswithin the time period is included. athologist Signature Bili Total <0.3 <=1.2 mg/dL [facility] Comment: Direct and indirect bilirubin will not b e reported when Total bilirubin result is <0.3 mg/dL Indocyanine Green (ICG) may cause falsel y elevated bilirubin results. Total and direct bilirubin must not be measured from samples containing indocyanine green. False elevation of total bilirubin can b e seen in patients with IgG concentrations above 28 g/L. Testing Performed at [facility], [address] [place] [address], [address], [place] [address] Specimen Anatomical Collection Method Collection Time Receive d Time (Source) Location / / Volume Laterality Blood 04/24/2022 12:32 04/24/2022 PM [employer]ER 12:38 PM [employer]IP[employer] TENDER Carina REMY LAB BLOOD ORDERABLES Performing Organization Address City/[facility] e Number [address] [place] [address] [address] (ABNORMAL) Differential (04/24/2022 12:32 PM [employer] T[employer]ER)Only the most recent of27 resultswithin the time period is included. athologist Signature Neutrophil % 82.6 (H) 42.0 - [facility] 66.0 % Comment: As part of Differential perform ed at [facility] Lab Field Education Coordinator Bldg, [address] [place] [address], [address], [place] [id number] [phone] Lymphocyte % 5.8 (L) 24.0 - 44.0 % [facility] Monocyte % 10.3 (H) 2.0 - 7.0 % [facility] Eosinophil % 0.3 (L) 1.0 - 4.0 % [facility] Basophil % 0.2 0.0 - 1.0 % [facility] IGRE % 0.8 (H) 0.0 - 0.4 % [facility] Comment: IGRE % count includes Metamyelocytes, My elocytes, and Promyelocytes. As part of Differential performed at [facility] Lab Field Education Coordinator [facility], [address] [place] [address], [address], [place] [address] Neutrophil Abs 8.79 (H) 1.70 - 7.30 K/uL [facility] Lymphocyte Abs 0.62 (L) 1.00 - 4.80 K/uL [facility] Monocyte Abs 1.09 (H) 0.08 - 0.70 K/uL [facility] Eosinophil Abs 0.03 (L) 0.04 - 0.40 K/uL [facility] Basophil Abs 0.02 0.00 - 0.10 K/uL [facility] IG Abs 0.08 (H) 0.00 - 0.04 K/uL [facility] Specimen Anatomical Collection Method Collection Time Receive d Time (Source) Location / / Volume Laterality Blood 04/24/2022 12:32 04/24/2022 PM [employer]IP[employer] TENDER 12:35 PM [employer]LOADING E[employer]IPMENT TENDER [employer] LAB BLOOD ORDERABLES Performing Organization Address City/[facility]/ZIP Code Phon e Number [address] [place] [address] [address] (ABNORMAL) BUN (04/24/2022 12:32 PM [employer]IPMENT TENDER)Only the most recent of29 resultswithin the time period is included. athologist Signature BUN 33 (H) 6 - 23 mg/dL [facility] Comment: Testing Performed at [facility] Lab Am bulatory Care [facility], [address] [place] [address], [address], [place] [address] Specimen Anatomical Collection Method Collection Time Receive d Time (Source) Location / / Volume Laterality Blood 04/24/2022 12:32 04/24/2022 PM [employer] E[employer]IPMENT TENDER 12:38 PM [employer]LOADING EQUIPMENT TENDER [employer] LAB BLOOD ORDERABLES Performing Organization Address City/[facility]/ZIP Code Phon e Number [address] [place] [address] [address] ALT (04/24/2022 12:32 PM [employer] E[employer]IPMENT TENDER)Only the most recent of28 resultswithin the time period is included. athologist Signature ALT 8 <=41 U/L [facility] Comment: Testing Performed at [facility] Am bulatory Care [facility], [address], [address], [place] [address] Specimen Anatomical Collection Method Collection Time Receive d Time (Source) Location / / Volume Laterality Blood 04/24/2022 12:32 04/24/2022 PM [employer] E[employer]IP[employer] TENDER 12:38 PM [employer] E[employer]IPMENT T[employer]ER [employer] [facility] LAB BLOOD ORDERABLES Performing Organization Address City/[facility]/ZIP Code Phon e Number [facility] [address] [place] [address] [address] Aspartate Aminotransferase (04/24/2022 12:32 PM [employer]IPMENT TENDER)Only the most recent of28 resultswithin the time period is included. P athologist Signature AST 15 <=40 U/L [facility] Comment: Testing Performed at [facility] Lab Am [facility], [address], [address], [place] [address] Specimen Anatomical Collection Method Collection Time Receive d Time (Source) Location / / Volume Laterality Blood 04/24/2022 12:32 04/24/2022 PM [employer] EQUIPMENT TENDER 12:38 PM [employer]ING E[employer]IPMENT T[employer]ER [employer] [facility] LAB BLOOD ORDERABLES Performing Organization Address [facility]/ZIP Code Phon e Number [facility] [address] [place] [address] [address] TSH (04/24/2022 12:32 PM [employer]IPMENT TENDER)Only the most recent of20 resultswithin the time period is included. P athologist Signature TSH 3.08 0.27 - 4.20 [facility] mcunit/mL Comment: Note: New Methodology and Reference Ra nge change effective 06/24/2017 at 1400 Testing Performed at [facility] Lab Field Education Coordinator [facility], [address], [address], [place] [address] Specimen Anatomical Collection Method Collection Time Receive d Time (Source) Location / / Volume Laterality Blood 04/24/2022 12:32 04/24/2022 PM [employer]IP[employer] TENDER 12:38 PM [employer] T[employer]ER [employer] [facility] LAB BLOOD ORDERABLES Performing Organization Address City/[facility]/ZIP Code Phon e Number [facility] [address] [place] [address] [address] (ABNORMAL) Free T4 (04/24/2022 12:32 PM [employer]IP[employer] TENDER)Only the most recent of20 results within the time period is included. P athologist Signature T4 Free 0.90 (L) 0.93 - 1.70 [facility] ng/dL Comment: Testing Performed at [facility] Am [facility], [address], [address], [place] [address] Specimen Anatomical Collection Method Collection Time Receive d Time (Source) Location / / Volume Laterality Blood 04/24/2022 12:32 04/24/2022 PM [employer] E[employer]IP[employer] TENDER 12:38 PM [employer]IP[employer] TENDER Carina Delvis PA LAB BLOOD ORDERABLES Performing Organization Address City/[facility]/ZIP [facility] Phon e Number [facility] [address] [place] [address] [address] (ABNORMAL) Total Protein (04/24/2022 12:32 PM [employer] E[employer]IPMENT TENDER)Only the most recent of28 resultswithin the time period is included. P athologist Signature Total Protein 5.4 (L) 6.4 - 8.3 [facility] g/dL Comment: Testing Performed at [facility] Am [facility], [address], [address], [place] [address] Specimen Anatomical Collection Method Collection Time Receive d Time (Source) Location / / Volume Laterality Blood 04/24/2022 12:32 04/24/2022 PM [employer] EQUIPMENT TENDER 12:38 PM [employer] EQUIPMENT TENDER Carina REMY LAB BLOOD ORDERABLES Performing Organization Address City/[facility] Phon e Number [facility] [address] [place] [address] [address] (ABNORMAL) Alkaline Phosphatase (04/24/2022 12:32 PM [employer]ING EQUIPMENT TENDER)Only the most recent of 28 resultswithin the time period is included. P athologist Signature Alk Phos 131 (H) 40 - 129 [facility] U/L Comment: Testing Performed at [facility] Am [facility], [address], [address], [place] [address] Specimen Anatomical Collection Method Collection Time Receive d Time (Source) Location / / Volume Laterality Blood 04/24/2022 12:32 04/24/2022 PM [employer] EQUIPMENT TENDER 12:38 PM [employer] EQUIPMENT TENDER Carina Edmondson PA LAB BLOOD ORDERABLES Performing Organization Address City/[facility]/ZIP Code Phon e Number [facility] [address] [place] [address] [address] (ABNORMAL) Glucose Level (04/24/2022 12:32 PM [employer]ING EQUIPMENT TENDER)Only the most recent of29 resultswithin the time period is included. athologist Signature Glucose Level 181 (H) 70 - 99 [facility] mg/dL Comment: Effective 10/02/15, the glucose reference intervals have been updated based on [place] [employer] guidelines (Standards of Medical Care in Diabetes 2016. Diabetes Care 2016; 39: S13-S22). Fasting blood glucose: Normal: 70-99 mg/dL Impaired fasting glucose (increased risk for diabetes or pre-diabetes): 100- 125 mg/dL Diabetes mellitus: >/=126 mg/dL Random blood glucose: Normal: 70-199 mg/dL Note: Random glucose >100 mg/dL is assoc iated with increased risk for diabetes Testing Performed at [facility] Lab Field Education Coordinator [facility], [address] [place] [address], [address], [place] [address] Specimen Anatomical Collection Method Collection Time Receive d Time (Source) Location / / Volume Laterality Blood 04/24/2022 12:32 04/24/2022 PM [employer] EQUIPMENT TENDER 12:38 PM [employer] UNLOADING EQUIPMENT TENDER Carina REMY LAB BLOOD ORDERABLES Performing Organization Address [facility] Phon e Number [facility] [address] [place] [address] [address] Calcium Level (04/24/2022 12:32 PM [employer]LOADING EQUIPMENT TENDER)Only the most recent of29 resultswithin the time period is included. athologist Signature Calcium Lvl 8.6 8.4 - 10.2 [facility] mg/dL Comment: Testing Performed at [facility] Lab Am bulatory Care [facility], [address], [address], [place] [address] Specimen Anatomical Collection Method Collection Time Receive d Time (Source) Location / / Volume Laterality Blood 04/24/2022 12:32 04/24/2022 PM [employer]ING EQUIPMENT TENDER 12:38 PM [employer] UNLOADING EQUIPMENT TENDER Carina REMY LAB BLOOD ORDERABLES Performing Organization Address City/[facility]/ZIP [facility] Phon e Number [facility] [address] [place] [address] [address] (ABNORMAL) Albumin Level (04/24/2022 12:32 PM [employer]ING EQUIPMENT TENDER)Only the most recent of28 resultswithin the time period is included. P athologist Signature Albumin Lvl 2.6 (L) 3.5 - 5.2 [facility] gm/dL Comment: Testing Performed at [facility] Lab Am [facility], [address], [address], [place] [address] Specimen Anatomical Collection Method Collection Time Receive d Time (Source) Location / / Volume Laterality Blood 04/24/2022 12:32 04/24/2022 PM [employer] EQUIPMENT TENDER 12:38 PM [employer] UNLOADING EQUIPMENT TENDER Carina REMY LAB BLOOD ORDERABLES Performing Organization Address City/State/ZIP Code Phon e Number [facility] [address] [place] [address] [address] (ABNORMAL) Electrolyte Panel (04/24/2022 12:32 PM [employer] EQUIPMENT TENDER)Only the most recent of29 resultswithin the time period is included. P athologist Signature Sodium Lvl 135 (L) 136 - 145 [facility] mEq/L Comment: Testing Performed at [facility] Lab Am [facility], [address], [place] [address] Potassium Lvl 4.7 3.5 - 5.1 mEq/L [facility] Comment: Testing Performed at [facility] Lab Am [facility], [address], [address], [place] [address] Chloride 99 98 - 107 mEq/L [facility] Comment: Testing Performed at [facility] Lab Am [facility], [address], [place] [address] CO2 29 22 - 29 mEq/L [facility] Comment: Testing Performed at [facility] Lab Am [facility], [address], [place] [id number] Anion Gap 7 4 - 14 mEq/L [facility] Comment: Testing Performed at [facility] Lab [facility], [address], [place] [address] Specimen Anatomical Collection Method Collection Time Receive d Time (Source) Location / / Volume Laterality Blood 04/24/2022 12:32 04/24/2022 PM [employer] EQUIPMENT TENDER 12:38 PM [employer]LOAD[employer] EQUIPMENT TENDER Carina REMY LAB BLOOD ORDERABLES Performing Organization Address City/State/ZIP Code Phon e Number [facility] [address] [place] [address] [address] [employer] (04/15/2022 2:22 PM GL[employer]LOADING EQUIPMENT TENDER)Only the most recent of6 resultswithin the time period is included. Anatomical Region Laterality Modality Other Specimen (Source) Anatomical Collection Method Collection Time Re ceived Time Location / / Volume Laterality 04/15/2022 4:03 PM [employer] EQUIPMENT TENDER Impressions 04/15/2022 4:03 PM [employer]ING EQUIPMENT TENDER Tumor metrics have been completed. I personally reviewed these images and agree with the tumor metrics. 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 Procedure Note Cristiano Chowdhury MD - 04/15/2022F ormatting of this note might be different from the original. 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 IMPRESSION: Tumor metrics have been completed. I per sonally reviewed these images and agree with the tumor metrics. Dante Christy MD IMG QIA ORDERABLES General Laboratory Add-On Test (04/14/2022 3:27 PM GLASS UNLOADING EQUIPMENT TENDER)Only the most recent of2 resultswithin the time period is included. athologist Signature Ordered Test Added [place] [facility] [place] Comment: TEst added to [facility] sample acc ession [id number]. Email sent to notify them. 04/14/2022 4:39:51 PM GLASS UNLOADING EQUIPMENT TENDER by sunita Test Needed ferritin, TIBC, iron [facility] Specimen Anatomical Collection Method Collection Time Receive d Time (Source) Location / / Volume Laterality Existing 04/14/2022 3:27 PM 3:27 GLASS UNLOADING EQUIPMENT TENDER PM GLASS UNLOADING EQUIPMENT TENDER Dante Christy MD LAB BLOOD ORDERABLES Performing Organization Address City/State/ZIP Code Phon e Number [place] [facility] Unless otherwise noted, [place], [place] [id number] [place] [address] all lab tests performed by: Division of Pathology and Laboratory Medicine [address] (ABNORMAL) Urinalysis Microscopic Exam (04/14/2022 1:07 PM GLASS UNLOADING EQUIPMENT TENDER)Only the most recent of4 resultswithin the time period is included. athologist Signature UA WBC 5-10 (A) 0 - 2 /HPF [place] Comment: Some reporting parameters within the Uri nalysis test have changed due to the implementation of new instrumentation in the [facility], allowing greater sensitivity of measurement. Urinalysis results rep orted by the [facility] using existing instrumentation, as well as Urinalysis t esting performed manually or by backup methodology at the [facility] will remain relatively unchanged. New reporting parameters and units will not be reported for all [facility]. As part of the UA Macroscopic Exam perfo rmed at [facility], [address] [place] [address] UA RBC Rare 0 - 2 /HPF [place] Comment: As part of the UA Macroscopic E xam performed at [facility], [address] [place] [address] UA Mucous NOT SEEN Not Seen-Trace /HPF [facility] Comment: As part of the UA Macroscopic E xam performed at [facility], [address] [place] [address], [place] [address] UA Bacteria OCC NOT SEEN /HPF [place] Comment: As part of the UA Macroscopic E xam performed at [facility], [address] [place] [address], [place] [address] UA Squam Epi Few (A) None-Occasional /HPF [place] Comment: As part of the UA Macroscopic E xam performed at [facility], [address] [place] [address], [place] [address] UA Trans Epi OCC (A) NOT SEEN /HPF [place] Comment: As part of the UA Macroscopic E xam performed at [facility], [address] [place] [address] UA Yeast 1+ (A) NOT SEEN /HPF [place] Comment: As part of the UA Macroscopic E xam performed at [facility], [address] [place] [address] Specimen Anatomical Collection Method Collection Time Receive d Time (Source) Location / / Volume Laterality Urine 04/14/2022 1:07 PM 1:09 GLASS UNLOADING EQUIPMENT TENDER PM GLASS UNLOADING EQUIPMENT TENDER Dante Christy MD LAB BLOOD ORDERABLES Performing Organization Address City/State/ZIP Code Phon e Number [place] [id number] [place] [address] (ABNORMAL) Urinalysis w/Microscopic if Indicated (04/14/2022 1:07 PM GLASS UNLOADING EQUIPMENT TENDER)Only the most recent of17 resultswithin the time period is included. athologist Signature UA Color Light Yellow [place] ow Comment: All Components of UA Macroscopi c performed at [facility], [address] [place] [address] UA Appear Sl Cloudy (A) Clear [place] Comment: As part of the UA Macroscopic E xam performed at [facility], [address] [place] [address] UA Glucose NEG NEG mg/dL [place] Comment: As part of the UA Macroscopic E xam performed at [facility], [address] [place] [address] UA Bili NEG NEG [place] Comment: As part of the UA Macroscopic E xam performed at [facility], [address] [place] [address] UA Ketones NEG NEG mg/dL [place] Comment: As part of UA Macroscopic or as an individual orderable testing performed at [facility], [address] [place] [address] UA Spec Grav 1.015 1.003 - 1.035 [place] Comment: As part of the UA Macroscopic E xam performed at [facility], [address] [place] [address] UA Blood Moderate (A) NEG [place] Comment: As part of the UA Macroscopic E xam performed at [facility], [address] [place] [address] UA pH 6.0 5.0 - 9.0 [place] Comment: As part of the UA Macroscopic E xam performed at [facility], [address] [place] [address], [place] [address] UA Protein >=300 (A) NEG mg/dL [place] Comment: As part of the UA Macroscopic E xam performed at [facility], [address] [place] [address], [place] [address] UA Urobilinogen NEG NEG [place] Comment: As part of the UA Macroscopic E xam performed at [facility], [address] [place] [address], [place] [address] UA Nitrite NEG NEG [place] Comment: As part of the UA Macroscopic E xam performed at [facility], [address] [place] [address], [place] [address] UA Leuk Est Small (A) NEG [place] Comment: As part of the UA Macroscopic E xam performed at [facility], [address] [place] [address], [place] [address] Specimen Anatomical Collection Method Collection Time Receive d Time (Source) Location / / Volume Laterality Urine 04/14/2022 1:07 PM 3 1:07 GLASS UNLOADING EQUIPMENT TENDER PM GLASS UNLOADING EQUIPMENT TENDER Dante Christy MD URINE ORDERABLES Performing Organization Address City/State/ZIP Code Phon e Number AFTAB [facility], [address] aPTT (04/14/2022 1:04 PM GLASS UNLOADING EQUIPMENT TENDER)Only the most recent of15 resultswithin the time period is included. athologist Signature aPTT 34.2 22.8 - 34.2 [place] second(s) Comment: Testing performed at [facility], [address] [place] [address], [place] [address] Specimen Anatomical Collection Method Collection Time Receive d Time (Source) Location / / Volume Laterality Blood 04/14/2022 1:04 PM 3 1:04 GLASS UNLOADING EQUIPMENT TENDER PM GLASS UNLOADING EQUIPMENT TENDER Narrative [place] - 04/14/2022 1:33 PM GLASS UNLOADING EQUIPMENT TENDER This lab cannot be scheduled at the [facility] locations due to collection/proccessing restrictions: [facility] and [facility]. Dante Christy MD LAB BLOOD ORDERABLES Performing Organization Address City/[facility]/ZIP Code Phon e Number [address] (ABNORMAL) Prothrombin Time with INR (04/14/2022 1:04 PM GLASS UNLOADING EQUIPMENT TENDER)Only the most recent of15 resultswithin the time period is included. athologist Signature PT 15.5 (H) 11.9 - 14.1 [place] second(s) Comment: Testing performed at [facility], [address] [place] [address] INR 1.24 (H) 0.89 - 1.10 [place] Comment: Testing performed at [facility], [address] [place] [address] Specimen Anatomical Collection Method Collection Time Receive d Time (Source) Location / / Volume Laterality Blood 04/14/2022 1:04 PM 1:04 GLASS UNLOADING EQUIPMENT TENDER PM GLASS UNLOADING EQUIPMENT TENDER Narrative [place] - 04/14/2022 1:33 PM GLASS UNLOADING EQUIPMENT TENDER This lab cannot be scheduled at the [facility] locations due to collection/proccessing restrictions: [facility] and [facility]. Dante Christy MD LAB BLOOD ORDERABLES Performing Organization Address City/[facility]/ZIP Code Phon e Number [place], [place] [phone] [place] [address] (ABNORMAL) Transferrin with TIBC (04/14/2022 1:04 PM GLASS UNLOADING EQUIPMENT TENDER) athologist Signature Transferrin 103 (L) 200 - 360 [place] mg/dL Comment: Performed at [facility], [address] [place], [place] [id number] TIBC 144 (L) 250 - 450 mcg/dL [place] Comment: Performed at [facility], [address] [place] [address] Specimen Anatomical Collection Method Collection Time Receive d Time (Source) Location / / Volume Laterality Blood 04/14/2022 1:04 PM 1:04 GLASS UNLOADING EQUIPMENT TENDER PM GLASS UNLOADING EQUIPMENT TENDER Dante Christy MD LAB BLOOD ORDERABLES Performing Organization Address City/State/ZIP Code Phon e Number [place], [place] [phone] [place] [address] (ABNORMAL) Iron Level (04/14/2022 1:04 PM GLASS UNLOADING EQUIPMENT TENDER) athologist Signature Iron 16 (L) 59 - 158 [place] mcg/dL Comment: Testing performed at [facility], [address] [place] [address] Specimen Anatomical Collection Method Collection Time Receive d Time (Source) Location / / Volume Laterality Blood 04/14/2022 1:04 PM 3 1:04 GLASS UNLOADING EQUIPMENT TENDER PM GLASS UNLOADING EQUIPMENT TENDER Dante Christy MD LAB BLOOD ORDERABLES Performing Organization Address City/[facility]/ZIP Code Phon e Number [place], [place] [phone] [place] [address] (ABNORMAL) Ferritin Level (04/14/2022 1:04 PM GLASS UNLOADING EQUIPMENT TENDER) athologist Signature Ferritin Lvl 1,036 (H) 30 - 400 [place] ng/mL Comment: Testing performed at [facility], [address] [place] [id number] Specimen Anatomical Collection Method Collection Time Receive d Time (Source) Location / / Volume Laterality Blood 04/14/2022 1:04 PM 3 1:04 GLASS UNLOADING EQUIPMENT TENDER PM GLASS UNLOADING EQUIPMENT TENDER Dante Christy MD LAB BLOOD ORDERABLES Performing Organization Address City/[facility]/ZIP Code Phon e Number [place], [place] [phone] [place] [address] Lipid Panel (04/14/2022 1:04 PM GLASS UNLOADING EQUIPMENT TENDER) athologist Signature Chol 115 <=199 mg/dL [place] Comment: ATP III Classification of Total Choleste rol-Primary Target of Therapy (in mg/dL): <200 Desirable 200-239 Borderline high >=240 High Testing performed at [facility], [address] [place] [address] Trig 92 <=149 mg/dL [place] Comment: ATP III Classification of Serum Triglyce rides Primary Target of Therapy (in mg/dL): <150 Normal 150-199 Borderline high 200-499 High >=500 Very high Non-fasting triglycerides >200 mg/dL may be followed up with a fasting Lipid Panel. Calculated LDL-C may be falsely decreased when non-fasting triglycerides >200 mg/dL. Testing performed at [facility], [address] [place] [address] HDL 46 >=40 mg/dL [place] Comment: Testing performed at [facility], [address] [place], [place] [id number] LDL 51 <=100 mg/dL [place] Comment: ATP III Classification of LDL Cholestero l Primary Target of Therapy (in mg/dL): <100 Optimal 100-129 Near optimal/above optimal 130-159 Borderline high 160-189 High >=190 Very high Testing performed at [facility], [address] [place] [id number] VLDL 18 mg/dL [place] Comment: Testing performed at [facility], [address] [place] [address] Specimen Anatomical Collection Method Collection Time Receive d Time (Source) Location / / Volume Laterality Blood 04/14/2022 1:04 PM 3 1:04 GLASS UNLOADING EQUIPMENT TENDER PM GLASS UNLOADING EQUIPMENT TENDER Dante Christy MD LAB BLOOD ORDERABLES Performing Organization Address City/State/ZIP Code Phon e Number [place], [place] [phone] [place] [address] CT Chest Abdomen Pelvis with Contrast (04/14/2022 12:40 PM GLASS UNLOADING EQUIPMENT TENDER)Only the most recent of7 resultswithin the time period is included. Anatomical Region Laterality Modality Abdomen, Pelvis, Chest Computed Tomograp hy Specimen (Source) Anatomical Collection Method Collection Time Re ceived Time Location / / Volume Laterality 04/15/2022 9:06 AM GLASS UNLOADING EQUIPMENT TENDER Impressions 04/15/2022 10:14 AM GLASS UNLOADING EQUIPMENT TENDER Disease progression as shown by enlargin g intramuscular, retroperitoneal and right hip joint metastases as described above. Retroperitoneal and inguinal adenopathy has increased. There are extensive bon e metastases involving the pelvis. The s oft tissue components of the pelvic metastases have enlarged. No thoracic disease. There are bilateral nephrostomy tubes. T here is no hydronephrosis. 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 Findings: CHEST: There is an infusion port in the right c hest wall with tip at the cavoatrial junction. There is no mediastinal hilar or axillar y adenopathy. There is centrilobular emphysema. There are calcified pulmonary granulomat a. 4 mm nodules are seen in the right upper lobe (7:24) and right middle lobe (7:118) that are stable A 9 mm right retrocrural node (6:99) is slightly larger ABDOMEN and PELVIS: There is increased anasarca. The metastatic mass involving the right psoas (6:229) is larger measuring 4.3 cm, previously 3.2 cm. There are growing metastases in the righ t retroperitoneum. A mass anterior to the right ilium (6:23 2) has enlarged previously measuring 1.9 cm. New lesions are seen anterior to the right ilium at 6:258 and 6:224). A mass in the right paracolic gutter abu tting the sigmoid colon (6:234) has enlarged measuring 2.5 cm, previously 1.5 cm.. A 4.7 cm mass is seen in the right abdominal wall muscle (6:256). This has increased in size. There are subcentimeter early hyperenhan cing foci in liver segment II (6:104) and VIII (6:109), with no correlate on later phases. These are stable and likely represent small FNH or perfusional lesions. There are calcified splenic granulomata. There are bilateral nephrostomies. There is no hydronephrosis. Bilateral renal cortical scarring is seen. Both adrenals are mildly nodular. This is unchanged and likely represents hyperplasia. The gallbladder, biliary tree and pancre as are unremarkable. Retroperitoneal and pelvic adenopathy is stable to slightly larger There are 1 cm aortocaval (6:211) and le ft para-aortic nodes (6:213) that have increased in size There is a 1.3 cm right external iliac n ode and a 1.5 cm left external iliac node (6:268). There is a 1.1 cm right common iliac node (6:237). There is new bilateral inguinal adenopat hy. A left inguinal node (6:283) measures 1.8 cm. A 1.1 cm right inguinal node has increased in size. A Lozada catheter is seen in the bladder which is decompressed. The prostate is enlarged. Bones/ muscles: Multiple new intramuscular metastases ar e seen. Lesions measuring up to 3 cm are seen wi thin and anterior to the right paraspinal muscles (6:207, 6:196). For example there is a 3 cm lesion in the right quadratus lumborum (6:192). Metastases are also seen in the left paraspinal muscles (6:2 17) left gluteus (6:266) and right hip adductor muscles (6:302) The soft tissue component of the right p osterior ilium metastasis (6:241) has enlarged now measuring 2 cm. Extensive sclerotic metastases are seen involving the acetabulum, sacrum and bilateral jade. Th e bony metastases are grossly unchanged but activity is better assessed with bone scan. The sacral metastasis invades the presacral space There is a right hip effusion. An enhanc ing lesion on the acetabular surface of the right hip joint (6:286) may represent an intra-articular metastasis. 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 Findings: CHEST: There is an infusion port in the right c hest wall with tip at the cavoatrial junction. There is no mediastinal hilar or axillar y adenopathy. There is centrilobular emphysema. There are calcified pulmonary granulomat a. 4 mm nodules are seen in the right upper lobe (7:24) and right middle lobe (7:118) that are stable A 9 mm right retrocrural node (6:99) is slightly larger ABDOMEN and PELVIS: There is increased anasarca. The metastatic mass involving the right psoas (6:229) is larger measuring 4.3 cm, previously 3.2 cm. There are growing metastases in the righ t retroperitoneum. A mass anterior to the right ilium (6:23 2) has enlarged previously measuring 1.9 cm. New lesions are seen anterior to the right ilium at 6:258 and 6:224). A mass in the right paracolic gutter abu tting the sigmoid colon (6:234) has enlarged measuring 2.5 cm, previously 1.5 cm.. A 4.7 cm mass is seen in the right abdominal wall muscle (6:256). This has increased in size. There are subcentimeter early hyperenhan cing foci in liver segment II (6:104) and VIII (6:109), with no correlate on later phases. These are stable and likely represent small FNH or perfusional lesions. There are calcified splenic granulomata. There are bilateral nephrostomies. There is no hydronephrosis. Bilateral renal cortical scarring is seen. Both adrenals are mildly nodular. This is unchanged and likely represents hyperplasia. The gallbladder, biliary tree and pancre as are unremarkable. Retroperitoneal and pelvic adenopathy is stable to slightly larger There are 1 cm aortocaval (6:211) and le ft para-aortic nodes (6:213) that have increased in size There is a 1.3 cm right external iliac n ode and a 1.5 cm left external iliac node (6:268). There is a 1.1 cm right common iliac node (6:237). There is new bilateral inguinal adenopat hy. A left inguinal node (6:283) measures 1.8 cm. A 1.1 cm right inguinal node has increased in size. A Lozada catheter is seen in the bladder which is decompressed. The prostate is enlarged. Bones/ muscles: Multiple new intramuscular metastases ar e seen. Lesions measuring up to 3 cm are seen wi thin and anterior to the right paraspinal muscles (6:207, 6:196). For example there is a 3 cm lesion in the right quadratus lumborum (6:192). Metastases are also seen in the left paraspinal muscles (6:217) left gluteus (6:266) and right hip adductor muscles (6:302) The soft tissue component of the right p osterior ilium metastasis (6:241) has enlarged now measuring 2 cm. Extensive sclerotic metastases are seen involving the acetabulum, sacrum and bilateral jade. The bony metastases are grossly unchanged but activity is be tter assessed with bone scan. The sacral metastasis invades the presacral space There is a right hip effusion. An enhanc ing lesion on the acetabular surface of the right hip joint (6:286) may represent an intra-articular metastasis. New subcutaneous implants are seen in th e right posterior back (6:228) IMPRESSION: Disease progression as shown by enlargin g intramuscular, retroperitoneal and right hip joint metastases as described above. Retroperitoneal and inguinal adenopathy has increased. There are extensive bone metastases involving the pelvis. The soft tissue co mponents of the pelvic metastases have enlarged. No thoracic disease. There are bilateral nephrostomy tubes. T here is no hydronephrosis. Dante Christy MD IMG CT ORDERABLES IR NEPHROSTOMY EXCHANGE (04/13/2022 2:31 PM GLASS UNLOADING EQUIPMENT TENDER)Only the most recent of5 results within the time period is included. Anatomical Region Laterality Modality Abdomen/Pelvis X-Ray Angiography Specimen (Source) Anatomical Location Collection Method / Collectio n Time Received Time / Laterality Volume Narrative 04/13/2022 2:56 PM GLASS UNLOADING EQUIPMENT TENDER Table formatting from the original result was not included. Date of Procedure: 04/13/22 Attending Physician: Rubén Garcia MD [employer] Contractor: None Pre Procedure Diagnosis: Primary uroth elial carcinoma of overlapping sites of urinary organs; Nephrostomy Post Procedure Diagnosis: Unchanged Indication: Infection Title of Procedure: Percutaneous Image-Guided Exchange of Ne phrostomy Catheters Operative Findings: Percutaneous image-guided exchange of bi lateral nephrostomy catheters Consent: The procedure, risks, indicat ions and [...] Procedure Events Event Event Time Sedation Start 04/13/2022 2:21 PM Sedation End 04/13/2022 2:41 PM Procedure in Detail: A time out was [...] was used f or local anesthesia. A network internship view was obtained of the cathete r. A right nephrostogram confirmed catheter position within a rickie al calyx. The catheter was severed and exchanged over a wire for a new 10 [place] Mac-loc catheter. Repeat nephrostogram demonstrates adequa te position in the renal pelvis. The catheter was secured to the patient with suture. Nephrostogram showed patent ureter. A left nephrostogram confirmed catheter position in the renal pelvis. The catheter was severed and exchanged over a wire for a new 10 [place] Mac-loc catheter. Repeat nephrostogram demonst rates adequate position in the renal pelvis. The catheter was secured to the patient with suture. Nephrostogram showed distal ureteral obs truction. Additional Comments: None Estimated Blood Loss: Minimal Specimens Removed: No Immediate Complications: None Disposition: PACU Plan: Catheter to gravity drainage. Return for routine exchange in 2 [facility] hs. Carina REMY IMG IR ORDERABLES (ABNORMAL) Fibrinogen (04/08/2022 1:27 PM GLASS UNLOADING EQUIPMENT TENDER) athologist Signature Fibrinogen 737 (H) 214 - 503 [facility] mg/dL [facility] Comment: No Clot Present Specimen Anatomical Collection Method Collection Time Receive d Time (Source) Location / / Volume Laterality Blood 04/08/2022 1:27 PM 3 1:31 GLASS UNLOADING EQUIPMENT TENDER PM GLASS UNLOADING EQUIPMENT TENDER Narrative [facility] - 3 2:32 PM GLASS UNLOADING EQUIPMENT TENDER This lab cannot be scheduled at the [facility] locations due to collection/proccessing restrictions: [facility] and [facility]. Dante Christy MD LAB BLOOD ORDERABLES Performing Organization Address City/State/ZIP Code Phon e Number [place] [facility] Unless otherwise noted, [address] all lab tests performed by: Division of Pathology and Laboratory Medicine [address] [facility] (ABNORMAL) Urine Culture (04/06/2022 6:31 PM GLASS UNLOADING EQUIPMENT TENDER)Only the most recent of6 resultswithin the time period is included. Component Value Ref Test Analysis Performed At Patholo gist Range Method Time Signature Final Report 10 - 50,000 cfu/ml Providencia rettgeri ANGIE MATHEW For susceptibility refer to Culture [id number] NORMANDY () [facility] Path Review - The results have been review ed and electronically signed by Pathologist: ANGIE MATHEW Urine MOE DALTON MD #[id number] A TIMUR () [facility] Specimen (Source) Anatomical Collection Method Collection Time Re ceived Time Location / / Volume Laterality Urine, Nephrostomy 04/06/2022 6:31 2022 9:47 - Left PM GLASS UNLOADING EQUIPMENT TENDER PM GLASS UNLOADING EQUIPMENT TENDER Amee Ventura MD MICROBIOLOGY - GENERAL ORDER REHANA Performing Organization Address City/State/ZIP Code Phon e Number [facility] Unless otherwise noted, [address] all lab tests performed by: Division of Pathology and Laboratory Medicine [address] [facility] US Renal (04/06/2022 5:19 PM GLASS UNLOADING EQUIPMENT TENDER) Anatomical Region Laterality Modality Abdomen Ultrasound Specimen (Source) Anatomical Collection Method Collection Time Re ceived Time Location / / Volume Laterality 04/06/2022 5:21 PM GLASS UNLOADING EQUIPMENT TENDER Impressions 04/06/2022 6:43 PM GLASS UNLOADING EQUIPMENT TENDER 1. No hydronephrosis. 2. Partially visualized bilateral neph rostomy tubes. 3. Decompressed urinary bladder with s uspected diffuse irregular bladder wall thickening, which is better seen on the prior CT. I personally reviewed these image(s) nery roy with the resident's/fellow's interpretations, certify that if a procedure was performed I was physically present, and agree with the final report. Narrative 04/06/2022 6:43 PM GLASS UNLOADING EQUIPMENT TENDER Examination: US RENAL, 04/06/2022 5:19 PM Clinical History: Urothelial carcinoma, status post right nephrostomy placement 03/16/2022 Indication: Hydronephrosis Comparison: CT chest/abdomen/pelvis 2022 Technique: Grayscale and color Doppler u ltrasound of the kidneys and urinary bladder. Findings: Left kidney: The left kidney measures 9.8 cm in length and demonstrates normal echotexture. No hydronephrosis. No renal calculi or definite solid masses. A nephrostomy tube is partially seen in the renal pelvis. Right kidney: The right kidney measure s 10.2 cm in length and demonstrates normal echotexture. No hydronephrosis. No renal calculi or definite solid masses. A nephrostomy tube is partially seen in the renal pelvis. Urinary bladder: A urinary catheter de compresses the urinary bladder, limiting evaluation. There is suspected diffuse irregular bladder wall thickening, better seen on the prior CT. Procedure Note Abigail Clemons MD - 04/06/2022Format ting of this note might be different from the original. Examination: US RENAL, 04/06/2022 5:19 PM Clinical History: Urothelial carcinoma, status post right nephrostomy placement 03/16/2022 Indication: Hydronephrosis Comparison: CT chest/abdomen/pelvis 2022 Technique: Grayscale and color Doppler u ltrasound of the kidneys and urinary bladder. Findings: Left kidney: The left kidney measures 9. 8 cm in length and demonstrates normal echotexture. No hydronephrosis. No renal calculi or definite solid masses. A nephrostomy tube is partially seen in the renal pelvis. Right kidney: The right kidney measures 10.2 cm in length and demonstrates normal echotexture. No hydronephrosis. No renal calculi or definite solid masses. A nephrostomy tube is partially seen in the renal pelvis. Urinary bladder: A urinary catheter deco mpresses the urinary bladder, limiting evaluation. There is suspected diffuse irregular bladder wall thickening, better seen on the prior CT. IMPRESSION: 1. No hydronephrosis. 2. Partially visualized bilateral nephro stomy tubes. 3. Decompressed urinary bladder with makayla pected diffuse irregular bladder wall thickening, which is better seen on the prior CT. I personally reviewed these image(s) nery ng with the resident's/fellow's interpretations, certify that if a procedure was performed I was physically present, and agree with the final report. Amee Ventura MD IMG US ORDERABLES COVID-19 (SARS-CoV-2)Asymptomatic-LT (04/06/2022 3:18 PM GLASS UNLOADING EQUIPMENT TENDER)Only the most recent of2 resultswithin the time period is included. [facility] Method Time Signature COVID19 Not Detected Not Detected ANGIE MATHEW (SARS-CoV-2) [facility] COVID19 SARS Inpatient ANGIE MATHEW Indication Admission [facility] Covid 19 See Note ANGIE MATHEW Comment [facility] Comment: The elke SARS-CoV-2 nucleic acid test f or use on the elke Loren System is a real-time RT-PCR assay intended for the qualitative detection of SARS-CoV-2 (COVID-19) viral RNA in nasopharyngeal swabs from either individuals suspected of COVID-1 9 by their healthcare provider or from any individu al, including individuals without symptoms or other reasons to suspect COVID-19. A fact sheet for patients provided by the mule spinner ([employer]) can be reviewed at: https://www.fda.gov/media/126897/downlovinicio d. A fact sheet for Health Care providers is provided by the mule spinner ([employer]) and can be reviewed at: https://www.fda.gov/media/301792/download Results must be interpreted within the c ontext of all relevant clinical and laboratory findings and should not form the sole basis for a diagnosis or treatment decision. Positive results do not rule out bacterial infection or co- infection with other viruses. Negative results do not preclud e SARS-CoV-2 infection and must be combined with clinical observations, patient history, and/or epidemiological information. This assay has been authorized by the [facility] for use only under Emergency Use Authorization (EUA) in laboratories that have been CLIA-certified to perform moderate-complexity and high-complexity tests. The Microbiology Laboratory at [facility], CLIA Accreditation #[id number] a ia CAP Accreditation #[id number], verified the performance characteristics of this assay. Internal controls are used to monitor all stages of the test process. Specimen (Source) Anatomical Collection Method Collection Time Re ceived Time Location / / Volume Laterality Nasopharyngeal Swab 04/06/2022 3:18 04/06 PM GLASS UNLOADING EQUIPMENT TENDER 3:51 PM GLASS UNLOADING EQUIPMENT TENDER Amee Ventura MD MICROBIOLOGY - GENERAL ORDER REHANA Performing Organization Address City/State/ZIP Code Phon e Number [facility] Unless otherwise noted, [address] all lab tests performed by: Division of Pathology and Laboratory Medicine [address] Phosphorus Level (04/06/2022 3:18 PM GLASS UNLOADING EQUIPMENT TENDER)Only the most recent of16 resultswithin the time period is included. P athologist Signature Phosphorus 3.3 2.5 - 4.5 [facility] mg/dL [facility] Specimen Anatomical Collection Method Collection Time Receive d Time (Source) Location / / Volume Laterality Blood 04/06/2022 3:18 PM 3 3:27 GLASS UNLOADING EQUIPMENT TENDER PM GLASS UNLOADING EQUIPMENT TENDER Amee Ventura MD LAB BLOOD ORDERABLES Performing Organization Address City/State/ZIP Code Phon e Number [facility] Unless otherwise noted, [address] all lab tests performed by: Division of Pathology and Laboratory Medicine [address] [place] Magnesium Level (04/06/2022 3:18 PM GLASS UNLOADING EQUIPMENT TENDER)Only the most recent of22 resultswithin the time period is included. P athologist Signature Magnesium 2.5 1.6 - 2.6 [facility] mg/dL [facility] Specimen Anatomical Collection Method Collection Time Receive d Time (Source) Location / / Volume Laterality Blood 04/06/2022 3:18 PM 3 3:27 GLASS UNLOADING EQUIPMENT TENDER PM GLASS UNLOADING EQUIPMENT TENDER Amee Ventura MD LAB BLOOD ORDERABLES Performing Organization Address City/State/ZIP Code Phon e Number [facility] Unless otherwise noted, [address] all lab tests performed by: Division of Pathology and Laboratory Medicine [facility] NM Gated Cardiac (03/31/2022 12:19 PM GLASS UNLOADING EQUIPMENT TENDER) Anatomical Region Laterality Modality Lung Nuclear Medicine Specimen (Source) Anatomical Collection Method Collection Time Re ceived Time Location / / Volume Laterality 03/31/2022 12:24 PM GLASS UNLOADING EQUIPMENT TENDER Impressions 03/31/2022 12:25 PM GLASS UNLOADING EQUIPMENT TENDER Normal left ventricular wall motion with normal ejection fraction of 67%. . Narrative 03/31/2022 12:25 PM GLASS UNLOADING EQUIPMENT TENDER FULL RESULT: Examination: NM GATED CARDIAC, 03/31/2022 12:19 PM Clinical History: 71-year-old male with urothelial carcinoma. Indication: Evaluation of cardiac functi on in the setting of potentially cardiotoxic chemotherapy. Comparison: None. Technique: Following the intravenous adm inistration of autologous red blood cells labeled in vitro with 25 mCi of technetium-99m pertechnetate, gated resting images of the thorax were obtained in the left anterior oblique and anterior projections. Findings: There is normal left ventricul ar systolic function, with no segmental wall motion abnormalities. The calculated left ventricular ejection fraction is normal at 67%. Procedure Note Romi Avilez MD - 03/31/2022 FULL RESULT: Examination: NM GATED CARDIAC, 03/31/2022 12:19 PM Clinical History: 71-year-old male with urothelial carcinoma. Indication: Evaluation of cardiac functi on in the setting of potentially cardiotoxic chemotherapy. Comparison: None. Technique: Following the intravenous adm inistration of autologous red blood cells labeled in vitro with 25 mCi of technetium-99m pertechnetate, gated resting images of the thorax were obtained in the left anterior oblique and anterior projections. Findings: There is normal left ventricul ar systolic function, with no segmental wall motion abnormalities. The calculated left ventricular ejection fraction is normal at 67%. IMPRESSION: Normal left ventricular wall motion with normal ejection fraction of 67%. . Dante Christy MD IMG NM ORDERABLES EKG, 12-Lead (Scheduled) (03/31/2022)Only the most recent of4 resultswithin the time period is included. Specimen (Source) Anatomical Location Collection Method / Collectio n Time Received Time / Laterality Volume Narrative This result has an attachment that is no t available. Dante Christy MD ECG ORDERABLES Performing Organization Address City/State/ZIP Code Phon e Number [facility] IR NEPHROSTOMY UNILATERAL PLACEMENT 75 (03/16/2022 11:45 AM GLASS UNLOADING EQUIPMENT TENDER) Anatomical Region Laterality Modality Abdomen/Pelvis X-Ray Angiography, U ltrasound Specimen (Source) Anatomical Location Collection Method / Collectio n Time Received Time / Laterality Volume Narrative 03/16/2022 11:50 AM GLASS UNLOADING EQUIPMENT TENDER Table formatting from the original result was not included. 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 Consent: The procedure, risks, indicat [...] Procedure Events Event Event Time Sedation Start 03/16/2022 10:51 AM Sedation End 03/16/2022 11:37 AM Procedure in Detail: A time out [...] 1% was used f or local anesthesia. Ultrasound and Fluoroscopic Guided: Unde r real time ultrasound guidance, a 22 gauge needle was advanced into the re nal collecting system. An image was obtained and placed into the medical record. Contrast and air were then injected into the system to localiz e an appropriate posterior calyx. Fluoroscopic guidance was used to advanc e an additional 22 gauge needle into the targeted calyx. A Rai set was used to secure the access and a short 0.035 inch wire was advanced into the collecting system. T he tract was dilated to accept a 10 Occitan Mac-loc catheter which was formed in the renal pelvis. The catheter was secured to the skin with suture and attached to gravity drainage. Additional Comments: None Estimated Blood Loss: Minimal Specimens Removed: Yes - Sample sent t o Microbiology. Immediate Complications: None Disposition: PACU Plan: Catheter to gravity drainage. Return for routine exchange in 2 pancho hs. This patient is not a good candidate for nephroureteral catheter conversion due to tumor. Carson Anaya Oneill 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 IMG IR ORDERABLES Fungus Culture w/Smear (03/16/2022 11:42 AM GLASS UNLOADING EQUIPMENT TENDER) Component Value Ref Test Analysis Performed At [facility] Range Method Time Signature Final Report No fungus ANGIE MATHEW isolated at 4 ANATOLY weeks. [facility] Path Review - Culture yield may be affecte d by sample quality, prior treatment, and transportation conditions. The results have been reviewed and electronically signed by Pathologist: ANGIE MATHEW Fungus Olinda Henry MD, PhD #[id number] [facility] Calcofluor No Fungi seen in direct smear ANGIE MATHEW Stain Test performed by fluorescent stain methodology. [facility] Specimen Anatomical Collection Method Collection Time Receive d Time (Source) Location / / Volume Laterality Kidney Fl 03/16/2022 11:42 03/16/2022 3:02 (Nephrostomy AM GLASS UNLOADING EQUIPMENT TENDER PM GLASS UNLOADING EQUIPMENT TENDER Tube, Right) Narrative [place] [facility] - 3 4:41 PM GLASS UNLOADING EQUIPMENT TENDER Cultures are held for 4 weeks before fin alization. Tye Alcantar MD MICROBIOLOGY - GENERAL ORDER REHANA Performing Organization Address City/State/ZIP Code Phon e Number [place] [facility] Unless otherwise noted, [place] [address] [place] all lab tests performed by: Division of Pathology and Laboratory Medicine [address] COVID-19 (SARS-CoV-2) PCR-Asymptomatic (03/14/2022 2:28 PM GLASS UNLOADING EQUIPMENT TENDER) [facility] Method Time Signature COVID19 (SARS Not Detected Not Detected ANGIE MATHEW CoV-2) Result [facility] Comment: This test is a qualitative reverse-trans criptase polymerase chain reaction (RT- PCR) developed for the Arianna ELKE 6800 system and intended for qualitative detection of SARS CoV-2 RNA in nasopharyngeal a nd oropharyngeal swab specimens collecte d from any individuals, including those suspected o f COVID-19 by their healthcare provider, and those without symptoms or other reasons to suspect COVID-19. A fact sheet for patients provided by the mule spinner ( [employer]) can be rev iewed at: https://www.fda.gov/media/322368/aimee bueno A fact sheet for Health Care providers is provided by the mule spinner ([employer]) and can be reviewed at: https://www.fda.gov/media/792904/download Results must be interpreted within the c ontext of all relevant clinical and laboratory findings and should not form the sole basis for a diagnosis or treatment decision. Positive results do not rule out bacterial infection or co- infection with other viruses. Negative results do not rule ou t SARS-CoV-2 and must be combined with clinical observations, patient history, and/or epidemiological information. "Presumptive Positive" results are due t o partial amplification of SARS-CoV-2 targets and indicates low amounts of virus present in the specimen at or near the limit of detection. Regardless, individuals with "Presumptive Positive" results should be managed per institutional guidelines as individuals positive for SARS-CoV-2 virus, including use of appropriate infection control protocols. Internal controls are included to assess for possible amplification inhibitors. If inhibition is detected, testing is repeated and if inhibition is confirmed the specimen is resulted as "Invalid". When an "Invalid" result occurs, it is recomm ended to wait 3 days before submitting a new spec imen for testing if clinically indicated. This assay has been approved by the FDA for use only under Emergency Use Authorization (EUA) in laboratories that have been CLIA-certified to perform moderate-complexity and high-complexity tests. The performance characteristics of this assay were verified by the Microbiology Laboratory at [facility], CLIA Accreditation #: [id number] and CAP Accreditation #: [id number]. COVID19 SARS Source 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 Swab [place] MD [facility] COVID19 SARS Indication Pre-Out of OR Procedure [facility] Specimen (Source) Anatomical Collection Method Collection Time Re ceived Time Location / / Volume Laterality Nasopharyngeal Swab 03/14/2022 2:28 03/14 PM GLASS UNLOADING EQUIPMENT TENDER 5:25 PM GLASS UNLOADING EQUIPMENT TENDER Dante Christy MD MICROBIOLOGY - GENERAL ORDER REHANA Performing Organization Address City/State/ZIP Code Phon e Number [facility] Unless otherwise noted, [place], [place] [id number] [place] [address] all lab tests performed by: Division of Pathology and Laboratory Medicine [facility]5 [address] Uric Acid (03/10/2022 12:52 PM GLASS UNLOADING EQUIPMENT TENDER)Only the most recent of11 resultswithin the time period is included. athologist Signature Uric Acid 6.5 3.4 - 7.0 [place] mg/dL Comment: Testing performed at [facility], [address] [place] [id number] Specimen Anatomical Collection Method Collection Time Receive d Time (Source) Location / / Volume Laterality Blood 03/10/2022 12:52 03/10/2022 PM GLASS UNLOADING EQUIPMENT TENDER 12:53 PM GLASS UNLOADING EQUIPMENT TENDER [facility] - 03/10/2022 1:18 PM GLASS UNLOADING EQUIPMENT TENDER Madi Shawana Richard: [phone] Rachana Lopez NP LAB BLOOD ORDERABLES Performing Organization Address City/State/ZIP Code Phon e Number [address] Free T3 (03/10/2022 12:52 PM GLASS UNLOADING EQUIPMENT TENDER)Only the most recent of11 resultswithin the time period is included. athologist [facility] Free T3 2.4 2.0 - 4.4 [place] pg/mL Comment: Performed at [facility], [address] [place] [address] Specimen Anatomical Collection Method Collection Time Receive d Time (Source) Location / / Volume Laterality Blood 03/10/2022 12:52 03/10/2022 PM GLASS UNLOADING EQUIPMENT TENDER 12:53 PM GLASS UNLOADING EQUIPMENT TENDER [facility] - 03/10/2022 1:55 PM GLASS UNLOADING EQUIPMENT TENDER Madi Shawana Richard: Rachana Lopez NP LAB BLOOD ORDERABLES Performing Organization Address City/State/ZIP Code Phon e Number [address] (ABNORMAL) [facility] (03/10/2022 12:52 PM GLASS UNLOADING EQUIPMENT TENDER)Only the most recent of11 resultswithin the time period is included. athologist [facility] LDH 261 [phone] [place] U/L Comment: Results greater than 1651 U/L may not be reliable due to matrix effect with extended dilution as it exceeds the mule spinner's recommended limit. Caution should be exercised when interpreting such values and done in conjunction with clinical context. Testing performed at [facility], [address] [place] [address], [place] [address] Specimen Anatomical Collection Method Collection Time Receive d Time (Source) Location / / Volume Laterality Blood 03/10/2022 12:52 03/10/2022 PM GLASS UNLOADING EQUIPMENT TENDER 12:53 PM GLASS UNLOADING EQUIPMENT TENDER Narrative [place] - 03/10/2022 2:02 PM GLASS UNLOADING EQUIPMENT TENDER [id number], [id number], Angela Dewey: Rachana Lopez 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 LAB BLOOD ORDERABLES Performing Organization Address City/State/[place] [address] [place] [address] MRI CERVICAL THORACIC LUMBAR SPINE W WO CONTRAST (02/20/2022 2:34 PM GLASS UNLOADING EQUIPMENT TENDER) Anatomical Region Laterality Modality Spine, C-spine, T-spine, L-spine Magneti c Resonance Specimen (Source) Anatomical Collection Method Collection Time Re ceived Time Location / / Volume Laterality 02/20/2022 3:02 PM GLASS UNLOADING EQUIPMENT TENDER Impressions 02/20/2022 3:43 PM GLASS UNLOADING EQUIPMENT TENDER 1. Sacral and right iliac tumor. 2. Tumor also involves the sacral canal and neural foramina. 3. Likely focus of metastasis in the rig ht posterior body wall at L2. 4. Discogenic degenerative change. Narrative 02/20/2022 3:43 PM GLASS UNLOADING EQUIPMENT TENDER FULL RESULT: Examination: MRI CERVICAL THORACIC LUM BAR SPINE W WO CONTRAST, February 20, 2022 Clinical History: Primary urothelial car cinoma of overlapping sites of urinary organs Indication: urothelial cancer patient wi th urinary incontinence Comparison: Whole-body bone scan of [facility] of the pelvis of January 09, 2022 Technique: Axial and sagittal images of the cervical, thoracic, and lumbosacral spine were performed using varying sequences with and without intravenous contrast. Findings: Abnormal signal and contrast e nhancement are present in the right acetabulum with extension into the adjacent soft tissues. There is also abnormal signal and contrast enhancement in a patchy d istribution throughout the sacrum and [place] th the right and left iliac wings near the sacroiliac joints. This corresponds with a primarily sclerotic osseous changes on CT consistent with metastatic disease . The amount of apparent osseous metasta tic disease is approximately what would be expected based on comparison with CT. There is also enhancement in the soft ti ssues immediately posterior to the sacrum within the spinal canal. Similar changes in the neural foramina, particularly both S2 and S3 neural foramina and the lef t S1 neural foramen. These findings sugg est involvement with tumor. An enhancing areas noted in the right po sterior body wall at the L2 level. It measures approximately 37 x 28 mm. An area of soft tissue tumor may be considered. It does not have an apparent correlation on CT or on bone scan. There is widespread discogenic degenerat tadeo change. Nearly all of the disks are abnormal. L4-5 has a normal appearance. The others do not. A particularly large amount of disc bulging is present at C3-4, and there is a small disc herniation at L2-3. There is severe right C2-3 facet arthropathy with narrowing of the right neural foramen. Procedure Note Shaylee Bird MD - 02/20/2022Formatti ng of this note might be different from the original. FULL RESULT: Examination: MRI CERVICAL THORACIC LUMBA R SPINE W WO CONTRAST, February 20, 2022 Clinical History: Primary urothelial car cinoma of overlapping sites of urinary organs Indication: urothelial cancer patient wi th urinary incontinence Comparison: Whole-body bone scan of [facility] of the pelvis of January 09, 2022 Technique: Axial and sagittal images of the cervical, thoracic, and lumbosacral spine were performed using varying sequences with and without intravenous contrast. Findings: Abnormal signal and contrast e nhancement are present in the right acetabulum with extension into the adjacent soft tissues. There is also abnormal signal and contrast enhancement in a patchy distribution throughout the sacrum and both the right and left iliac wings near the sacroiliac joints. This corresponds with a primarily sclerotic osseous changes on CT consistent with metastatic disease. The amount of apparent osseous metastatic disease is approximat flaquito what would be expected based on comparison with CT. There is also enhancement in the soft ti ssues immediately posterior to the sacrum within the spinal canal. Similar changes in the neural foramina, particularly both S2 and S3 neural foramina and the left S1 neural foramen. These findings suggest involvem ent with tumor. An enhancing areas noted in the right po sterior body wall at the L2 level. It measures approximately 37 x 28 mm. An area of soft tissue tumor may be considered. It does not have an apparent correlation on CT or on bone scan. There is widespread discogenic degenerat tadeo change. Nearly all of the disks are abnormal. L4-5 has a normal appearance. The others do not. A particularly large amount of disc bulging is present at C3-4, and there is a small disc herniation at L2-3. There i s severe right C2-3 facet arthropathy with narrowing of the right neural foramen. IMPRESSION: 1. Sacral and right iliac tumor. 2. Tumor also involves the sacral canal and neural foramina. 3. Likely focus of metastasis in the rig ht posterior body wall at L2. 4. Discogenic degenerative change. Carson Oneill APN IMG MRI ORDERABLES (ABNORMAL) Urinalysis with Microscopic (02/10/2022 12:19 PM GLASS UNLOADING EQUIPMENT TENDER)Only the most recent of13 resultswithin the time period is included. P athologist Signature UA WBC 15 (H) 0 - 2 /HPF [facility] UA RBC 4 (H) 0 - 2 /HPF [facility] UA Mucous NOT SEEN Not [facility] Seen-Trace [facility] UA Bacteria NOT SEEN NOT SEEN [facility] UA Squam Epi OCC None-Occas [facility] ional /[facility] UA Trans Epi OCC (A) NOT SEEN [facility] UA Hyal Cast 1 0 - 2 /LPF [facility] Specimen Anatomical Collection Method Collection Time Receive d Time (Source) Location / / Volume Laterality Urine 02/10/2022 12:19 02/10/2022 1:09 PM GLASS UNLOADING EQUIPMENT TENDER PM GLASS UNLOADING EQUIPMENT TENDER Narrative [facility] - 2 1:48 PM GLASS UNLOADING EQUIPMENT TENDER Some reporting parameters within the Urinalysis test have changed due to the implementation of new in strumentation in the [facility], allowi ng greater sensitivity of measurement. Urinalysis results reported by the [facility] using existing instrumentation, as well as Urinalysis t esting performed manually or by backup methodology at the [facility] will remain relatively unchanged. New reporting parameters and units will now be reported for all campuses. Dante Christy MD URINE ORDERABLES Performing Organization Address City/State/ZIP Code Phon e Number [facility] Unless otherwise noted, [place] [address] CENTER all lab tests performed by: Division of Pathology and Laboratory Medicine [facility]5 [facility] Bone Scan Whole Body (01/23/2022 2:59 PM GLASS UNLOADING EQUIPMENT TENDER)Only the most recent of4 results within the time period is included. Anatomical Region Laterality Modality Whole Body Nuclear Medicine Specimen (Source) Anatomical Collection Method Collection Time Re ceived Time Location / / Volume Laterality 01/23/2022 3:00 PM GLASS UNLOADING EQUIPMENT TENDER Impressions 01/23/2022 3:54 PM GLASS UNLOADING EQUIPMENT TENDER Similar appearance of the active osseous metastatic disease involving the right femur and pelvis since prior study dated 11/17/2021. I personally reviewed these image(s) nery roy with the resident's/fellow's interpretations, certify that if a procedure was performed I was physically present, and agree with the final report. Narrative 01/23/2022 3:54 PM GLASS UNLOADING EQUIPMENT TENDER FULL RESULT: Examination: Whole-Body Bone Scan, 01/23 2:59 PM Clinical History: A 71-year-old male wit h urothelial cancer. Indication: Reevaluate osseous metastase s. Comparison: Bone scan dated 11/17/2021, C T chest, abdomen and pelvis dated 01/09/2022 Technique: Following the intravenous adm inistration of 22 mCi of technetium-99m MDP, anterior and posterior delayed whole body planar images were acquired. Additional spot images of the bilateral pelvic bones and legs were obtained. Findings: Similar appearance and distrib ution of the multiple areas of abnormal tracer uptake involving the sacrum, proximal right femur, and pelvic bones not significantly changed from prior study date d 11/17/2021. No new abnormal tracer upta ke identified. Scattered degenerative changes are noted at the sternoclavicular joints, and bilateral shoulders. Radiotracer activity is noted within the right kidney, bladder, and nephrostomy bag. Procedure Note Jerald Oconnell MD - 01/23/2022Formatting of t his note might be different from the original. FULL RESULT: Examination: Whole-Body Bone Scan, 01/23 2:59 PM Clinical History: A 71-year-old male wit h urothelial cancer. Indication: Reevaluate osseous metastase s. Comparison: Bone scan dated 11/17/2021, C T chest, abdomen and pelvis dated 01/09/2022 Technique: Following the intravenous adm inistration of 22 mCi of technetium-99m MDP, anterior and posterior delayed whole body planar images were acquired. Additional spot images of the bilateral pelvic bones and legs were obtained. Findings: Similar appearance and distrib ution of the multiple areas of abnormal tracer uptake involving the sacrum, proximal right femur, and pelvic bones not significantly changed from prior study dated 11/17/2021. No new abnormal tracer uptake identified . Scattered degenerative changes are noted at the sternoclavicular joints, and bilateral shoulders. Radiotracer activity is noted within the right kidney, bladder, and nephrostomy bag. IMPRESSION: Similar appearance of the active osseous metastatic disease involving the right femur and pelvis since prior study dated 11/17/2021. I personally reviewed these image(s) nery ng with the resident's/fellow's interpretations, certify that if a procedure was performed I was physically present, and agree with the final report. Dante Christy MD IMG NM ORDERABLES XR HIP 2 VW BILATERAL W PELVIS (01/23/2022 12:44 PM GLASS UNLOADING EQUIPMENT TENDER) Anatomical Region Laterality Modality Hip, Extremity Digital Radiography Specimen (Source) Anatomical Collection Method Collection Time Re ceived Time Location / / Volume Laterality 01/23/2022 1:44 PM GLASS UNLOADING EQUIPMENT TENDER Impressions 01/23/2022 2:02 PM GLASS UNLOADING EQUIPMENT TENDER Increased interval sclerosis in multifoc al lytic bone metastases in pelvis, including sacrum, and right proximal femur indicat ing interval healing. Narrative 01/23/2022 2:02 PM GLASS UNLOADING EQUIPMENT TENDER FULL RESULT: Examination: XR Right Hip, including Pel vis, 3 Views, 01/23/2022 12:44 PM Clinical History: Bladder cancer. Indication: Assess for bone metastases. Comparison: AP pelvis and AP and frog-le g lateral views of bilateral hips, 03/27/2021. Technique: AP pelvis and AP and frog-leg lateral views of right hip, 01/23/2022. Findings: Generalized osteoporosis is present. Since the prior study, there has been in creased sclerosis in the mixed sclerotic/blastic lesion in the right acetabulum and bilateral posterior superior iliac bones and adjoining the SI joints. A lytic metastasis in the femoral neck and inter trochanteric region of the right femur and sacrum also shows increased sclerosis. Stable hypoplastic changes in the right hemipelvis and right proximal femur related to muscle atrophy are present. The hips are intact. Degenerative changes are noted in the lo wer Procedure Note Juan Francisco Villasenor MD - 01/23/2022Formatti ng of this note might be different from the original. FULL RESULT: Examination: XR Right Hip, including Pel vis, 3 Views, 01/23/2022 12:44 PM Clinical History: Bladder cancer. Indication: Assess for bone metastases. Comparison: AP pelvis and AP and frog-le g lateral views of bilateral hips, 03/27/2021. Technique: AP pelvis and AP and frog-leg lateral views of right hip, 01/23/2022. Findings: Generalized osteoporosis is present. Since the prior study, there has been in creased sclerosis in the mixed sclerotic/blastic lesion in the right acetabulum and bilateral posterior superior iliac bones and adjoining the SI joints. A lytic metastasis in the femoral neck and intertrochanteric r egion of the right femur and sacrum also shows increased sclerosis. Stable hypoplastic changes in the right hemipelvis and right proximal femur related to muscle atrophy are present. The hips are intact. Degenerative changes are noted in the lo wer IMPRESSION: Increased interval sclerosis in multifoc al lytic bone metastases in pelvis, including sacrum, and right proximal femur indicating interval healing. Dante Christy MD IMG DIAGNOSTIC IMAGING ORDER [place] IHC PD-L1 Material Request (12/24/2021 7:15 PM CDT) Specimen Anatomical Collection Method Collection Time Receive d Time (Source) Location / / Volume Laterality Tissue 12/24/2021 7:15 PM 2 7:15 CDT PM CDT Dante Christy MD, MDA IP AP BIOMARKERS Performing Organization Address City/State/ZIP Code Phon e Number [facility] [place] [address] [address] Potassium Level (12/16/2021 3:48 PM CDT) P athologist Signature Potassium Lvl 4.8 3.5 - 5.1 [place] MD [facility] mEq/L [facility] Specimen Anatomical Collection Method Collection Time Receive d Time (Source) Location / / Volume Laterality Blood 12/16/2021 3:48 PM 2 4:[address] [facility] - 2 5:00 PM CDT After kayexalate Leonor Hernandez 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 LAB BLOOD ORDERABLES Performing Organization Address City/State/ZIP Code Phon e Number 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 Consent: The procedure, risks, indicat ions and [...] Procedure Events Event Event Time Sedation Start 11/04/2021 10:46 AM Sedation End 11/04/2021 11:02 AM Procedure in Detail: A time out was performed prior to the st art of the procedure and the correct patient, procedure, presence of consent, site, and side were confirmed with all members of the team. With the patient in the supine position, the skin overlying the area of interest was prepped and draped in the u sual sterile fashion. Lidocaine 1% was used for local anesthesia. Using an anterior approach under Compute d Tomography image-guidance, a 17 gauge needle was advanced down to the ri ght pelvic mass. An image was obtained and placed into the medical rec ord. Samples were obtained for evaluation. Sampling: Research Biopsy: An 18 gauge needl e was used to obtain 4 core samples as per protocol. Specimens Disposition: Research Biopsy: The samples were s ubmitted to the appropriate research staff in the designated media as outline d in the protocol. Additional Comments: None Estimated Blood Loss: Minimal Immediate Complications: None Disposition: PACU Plan: 1. No follow-up with Interventional Radi ology required. Leonor Hernandez 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 IMG IR ORDERABLES IR CT GUIDED BIOPSY LYMPH NODE (09/19/2021 4:09 PM CDT) Anatomical Region Laterality Modality Computed Tomography Specimen (Source) Anatomical Location Collection Method / Collectio n Time Received Time / Laterality Volume Narrative 09/19/2021 4:27 PM CDT Date of Procedure: 09/19/21 Attending Physician: Tye Alcantar MD [employer] Contractor: None Pre Procedure Diagnosis: Screening for cancer; Primary urothelial carcinoma of overlapping lesion of urina ry organ Post Procedure Diagnosis: Unchanged Indication: Research sampling Protocol Number: N/A Title of Procedure: Percutaneous Computed Tomography-Guided Biopsy Operative Findings: Percutaneous image-guided biopsy of aout 1cm right external iliac lymph node. Consent: The procedure, risks, indicat ions and [...] Procedure Events Event Event Time Sedation Start 09/19/2021 3:51 PM Sedation End 09/19/2021 3:59 PM Procedure in Detail: A time out was performed prior to the st art of the procedure and the correct patient, procedure, presence of consent, site, and side were confirmed with all members of the team. With the patient in the supine position, the skin overlying the area of interest was prepped and draped in the u sual sterile fashion. Lidocaine 1% was used for local anesthesia. Using a lateral approach under Computed Tomography image-guidance, a 17 gauge needle was advanced down to the le ft external iliac lymph node. An image was obtained and placed into the m edical record. Samples were obtained for evaluation. Sampling: Research Biopsy: An 18 gauge needl e was used to obtain 4 core samples as per protocol. Specimens Disposition: Research Biopsy: The samples were s ubmitted to the appropriate research staff in the designated media as outline d in the protocol. Additional Comments: None Estimated Blood Loss: Minimal Immediate Complications: None Disposition: PACU Plan: 1. No follow-up with Interventional Radi ology required. Leonor Hernandez 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 IMG IR ORDERABLES Hepatitis C Virus Ab (09/10/2021 1:52 PM CDT) [facility] Method Time Signature HCVAb. Non Reactive Non Reactive [facility] Comment: Antibody detection in the immunocompromi sed and immunosuppressed population may be delayed or absent entirely. Therefore serial testing, correlation with other clinical findings, and supplemental testin g (if available) should be taken into co nsideration when interpreting the results. Specimen Anatomical Collection Method Collection Time Receive d Time (Source) Location / / Volume Laterality Blood 09/10/2021 1:52 PM 2 2:35 CDT PM CDT Narrative [facility] - 2 10:36 AM CDT Screening [facility] BLOOD ORDERABLES Performing Organization Address City/State/ZIP Code Phon e Number [facility] Unless otherwise noted, [address] all lab tests performed by: Division of Pathology and Laboratory Medicine [facility] [place] Hepatitis B Surface Ag (09/10/2021 1:52 PM CDT) [facility] Method [place] Signature HBsAg. Non Reactive Non Reactive [facility] Specimen Anatomical Collection Method Collection Time Receive d Time (Source) Location / / Volume Laterality Blood 09/10/2021 1:52 PM 2 2:35 CDT PM CDT Narrative [facility] - 2 10:36 AM CDT Screening [facility] LAB BLOOD ORDERABLES Performing Organization Address City/State/ZIP Code Phon e Number [facility] Unless otherwise noted, [address] all lab tests performed by: Division of Pathology and Laboratory Medicine [address] (ABNORMAL) Protein/Creatinine Ratio Urine (08/19/2021 11:08 AM CDT) athologist Signature UTP Ran 14 mg/dL [facility] Comment: Normal range not available for collections less than 24 hours in duration. U Creatinine 27.7 (L) 40.0 - 278.0 mg/dL [place] [facility] Comment: The reference range listed is f or first morning urine collection. U Prot/Creat 0.51 (H) <=0.14 g/g [facility] Specimen Anatomical Collection Method Collection Time Receive d Time (Source) Location / / Volume Laterality Urine 08/19/2021 11:08 08/19/2021 AM CDT 11:27 AM CDT [facility] 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 URINE ORDERABLES Performing Organization Address City/[facility]/ZIP [facility] Phon e Number [facility]ER Unless otherwise noted, [address] all lab tests performed by: Division of Pathology and Laboratory Medicine [address] Lipase Level (08/19/2021 11:04 AM CDT)Only the most recent of7 resultswithin the time period is included. athologist [facility] Lipase Lvl 39 13 - 60 U/L [facility] Comment: Testing Performed at [facility] bulatory [facility], [address], [place] [address] Specimen Anatomical Collection Method Collection Time Receive d Time (Source) Location / / Volume Laterality Blood 08/19/2021 11:04 08/19/2021 AM CDT 11:15 AM CDT [facility] LAB BLOOD ORDERABLES Performing Organization Address City/[facility] Phon e Number [facility] [address] [place] [address]. [place] [address] [address] Amylase Level (08/19/2021 11:04 AM CDT)Only the most recent of7 resultswithin the time period is included. athologist Signature Amylase Lvl 100 28 - 100 [facility] U[facility] Comment: Testing Performed at [facility], [address], [place] [address] Specimen Anatomical Collection Method Collection Time Receive d Time (Source) Location / / Volume Laterality Blood 08/19/2021 11:04 08/19/2021 AM CDT 11:15 AM CDT Leonor Hernandez 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 LAB BLOOD ORDERABLES Performing Organization Address City/State/ZIP Code Phon e Number [facility] [address] [place] [address] [address] POC Creatinine (08/19/2021 9:02 AM CDT) P athologist Signature POC Crea 1.1 0.6 - 1.3 POC [facility] mg/dL Comment: Medications, especially hydroxyurea or s upplements, such as ascorbate, can interfere with test results causing a falsely and significantly higher result than expected. If a problem is suspected with a patient's result, a sample should be sent to the laboratory for confirmatory testing. Method description: The i-STAT is an cassius lyzer used for in vitro quantification of various analytes in whole blood. The device uses a single disposable cartridge which contains microfabricated sensors, a calibration solution, fluidics system, and a waste chamber. Each test cartridge contains ch emically sensitive biosensors on a silicon chip that are configured to perform specific tests. The microfabricated sensors measure analyte concentration by an electrochemical assay. POC eGFR-AA 77 >=60 mL/min/1.73 m2 POC [facility] OR Comment: Normal eGFR >= 60 mL/min/1.73 m2 The eGFR is calculated using the CKD-EPI equation. The eGFR declines with age. eGFR <60 mL/min/1.73 m2 is considered as "decreased" This equation should only be used for patients 18 and older. According to the National Kidney Foundat ion's Kidney Disease Outcome Quality Initiative (KDOQI) classification and 2012 Kidney Disease Improving Global Outcomes (KDIGO) Clinical Practice Guideline, the stage of CKD should be categorized based on estimated GFR. Stage Description GFR mL/min/1.73 m2 1 Kidney damage with normal or high GFR >=90 2 Kidney damage with mild decrease in GF R 60-89 3a Mild to moderate decrease in GFR 45-59 3b Moderate to severe decrease in GFR 30-44 4 Severe decrease in GFR 15-29 5 Kidney failure <15 (or dialysis) POC eGFR-SANTOS 66 >=60 mL/min/1.73 m2 POC [facility] Comment: Normal eGFR >= 60 mL/min/1.73 m2 The eGFR is calculated using the CKD-EPI equation. The eGFR declines with age. eGFR <60 mL/min/1.73 m2 is considered as "decreased" This equation should only be used for patients 18 and older. According to the National Kidney Foundat ion's Kidney Disease Outcome Quality Initiative (KDOQI) classification and 2012 Kidney Disease Improving Global Outcomes (KDIGO) Clinical Practice Guideline, the stage of CKD should be categorized based on estimated GFR. Stage Description GFR mL/min/1.73 m2 1 Kidney damage with normal or high GFR >=90 2 Kidney damage with mild decrease in GF R 60-89 3a Mild to moderate decrease in GFR 45-59 3b Moderate to severe decrease in GFR 30-44 4 Severe decrease in GFR 15-29 5 Kidney failure <15 (or dialysis) POC Clean Dev 2 POC [facility] Performing Lab [facility] POC [facility] R Comment: [facility] Clinical Lab, [address] [place] [address]; Lab Direct or: Kamini Bae MD Specimen Anatomical Collection Method Collection Time Receive d Time (Source) Location / / Volume Laterality Blood 08/19/2021 9:02 AM 9:02 CDT AM CDT Corintashi Uthup 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 POCT ORDERABLES - DEVICE Performing Organization Address City/State/ZIP Code Phon e Number POC [facility] Unless otherwise noted, [place] [address] lab tests performed by: Division of Pathology and Laboratory Medicine [address] [place] [address] POC [facility] Hemoglobin A1c (08/05/2021 10:52 AM CDT) athologist Signature A1C 5.2 4.3 - 5.6 % [facility] [place] Comment: HbA1c values >=6.5% are diagnostic of di abetes mellitus. Diagnosis should be confirmed by repeat testing. Therapeutic Action suggested: >8.0% HbA1 c; Goal of therapy: <7.0% HbA1c Specimen Anatomical Collection Method Collection Time Receive d Time (Source) Location / / Volume Laterality Blood 08/05/2021 10:52 08/05/2021 AM CDT 11:47 AM CDT Leonor Uthup 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 LAB BLOOD ORDERABLES Performing Organization Address City/State/ZIP Code Phon e Number [facility] Unless otherwise noted, [place] [address] [place] all lab tests performed by: Division of Pathology and Laboratory Medicine [facility] Respiratory Viral Panel + COVID-19, Nasopharyngeal Swab (06/16/2021 8:31 PM CDT) [facility] Method Time Signature Adenovirus Not Not [place] MD Detected Detected [facility] Coronavirus 229E Not Not [place] MD Detected Detected [facility] Coronavirus HKU1 Not Not [place] [facility] Detected Detected [facility] Coronavirus NL63 Not Not [place] [facility] Detected Detected [facility] Coronavirus OC43 Not Not [facility] Detected Detected [facility] COVID19 Not Not [place] MD (SARS-CoV-2) Detected Detected [facility] Human Not Not [place] MD Metapneumovirus Detected Detected [facility] Human Not Not [place] MD Rhinovirus/Enterov Detected Detected [facility] Influenza A Not Not [place] MD Detected Detected [facility] Influenza A H1 Not Not [place] MD Detected Detected [facility] Influenza A H1 Not Not [place] MD 2009 Detected Detected [facility] Influenza A H3 Not Not [place] MD Detected Detected [facility] Influenza B Not Not [place] MD Detected Detected [facility] Parainfluenza 1 Not Not [place] MD Detected Detected [facility] Parainfluenza 2 Not Not [place] MD Detected Detected [facility] Parainfluenza 3 Not Not [place] MD Detected Detected [facility] Parainfluenza 4 Not Not [place] MD Detected Detected [facility] Respiratory Not Not [place] MD Syncytial Virus Detected Detected [facility] Bordetella Not Not [place] MD Parapertussis Detected Detected [facility] Bordetella Not Not [facility] pertussis Detected Detected [facility] Chlamydiophila Not Not [place] MD pneumoniae Detected Detected [facility] Mycoplasma Not Not UT pneumoniae Detected Detected [facility] Specimen (Source) Anatomical Collection Method Collection Time Re ceived Time Location / / Volume Laterality Nasopharyngeal Swab 06/16/2021 8:31 06/16 PM CDT 8:51 PM CDT Narrative [facility] - 9:47 PM CDT The BioFire RP2.1 is a real-time, nested multiplexed polymerase chain reaction test designed to simul taneously identify nucleic acids from 22 different viruses and bacteria associated with respiratory tract infection, including SARS-CoV-2, from a single nasopharyngeal swab (CORPORATE LOGISTICS MANAGER) specimen obtai mee from individuals suspected of respiratory tract infections, including COVID-19. Results must be interpreted within the c ontext of all relevant clinical and laboratory findings and should not form the sole basis for a diagnosis or treatment decision. Positive results do not rule out coninfection with other organisms. Nega tive results in the setting of a respiratory illness may be due to infection with pathogens that are not detected by this panel, or a lower respiratory tract infection that may not be detected by an CORPORATE LOGISTICS MANAGER specimen. Internal controls are used to monitor al l stages of the test process and assess for possible amplification inhibitors. If inhibition is detected, testing is repeated and if inhibition is confirmed the s pecimen is resulted as "Invalid". When a n "Invalid" result occurs, it is recommended to wait 3 days before submitting a new specimen for testing if clinically indicated. This assay has been approved by the FDA for use in laboratories that have been CLIA-certified to perform moderate-complexity and high-complexity tests. The Microbiology Laboratory at [facility], CLIA Accreditation #[id number] and CAP Accreditation #[id number], verified the per formance characteristics of this assay. Microbiology Laboratory at [facility] performs the assay using the PalindromX System. Sammy Bruce MD MICROBIOLOGY - GENERAL ORDER REHANA Performing Organization Address City/State/ZIP Code Phon e Number [facility] Unless otherwise noted, [place] [address] [place] all lab tests performed by: Division of Pathology and Laboratory Medicine [address] [place] [address] Abdomen and Pelvis (06/15/2021 11:50 PM CDT) Specimen (Source) Anatomical Location Collection Method / Collectio n Time Received Time / Laterality Volume Narrative Systemgenerated, Documentation - 022 11:50 PM CDT Study acquired at another institution. For comparison only. No [facility] originated interpretation requested or a vailable. Bob Gongora MD IMG OUTSIDE IMAGE ORDERABLES (ABNORMAL) POC Chem 8 without Hemoglobin and Hematocrit (06/15/2021 12:33 PM CDT) athologist Signature POC NA 147 (H) 138 - 146 POC [facility] mEq/L POC K 3.4 (L) 3.5 - 4.9 POC [facility] mEq/L Comment: Method description: The i-STAT is an cassius lyzer used for in vitro quantification of various analytes in whole blood. The device uses a single disposable cartridge which contains microfabricated sensors, a calibration solution, fluidics system, and a waste chamber. Each test cartridge contains ch emically sensitive biosensors on a silicon chip that are configured to perform specific tests. The microfabricated sensors measure analyte concentration by an electrochemical assay. POC CL 117 (H) 98 - 109 mEq/L POC [facility] POC VTCO2 16 (L) 24 - 29 mEq/L POC [facility] POC Anion Gap 19 10 - 20 mmol/L POC [facility] POC BUN 21 8 - 26 mg/dL POC [facility] POC Crea 0.9 0.6 - 1.3 mg/dL POC [facility] Comment: Medications, especially hydroxyurea or s upplements, such as ascorbate, can interfere with test results causing a falsely and significantly higher result than expected. If a problem is suspected with a patient's result, a sample should be sent to the laboratory for confirmatory testing. Method description: The i-STAT is an cassius lyzer used for in vitro quantification of various analytes in whole blood. The device uses a single disposable cartridge which contains microfabricated sensors, a calibration solution, fluidics system, and a waste chamber. Each test cartridge contains ch emically sensitive biosensors on a silicon chip that are configured to perform specific tests. The microfabricated sensors measure analyte concentration by an electrochemical assay. POC eGFR-AA 98 >=60 mL/min/1.73 m2 POC TELC OR Comment: Normal eGFR >= 60 mL/min/1.73 m2 The eGFR is calculated using the CKD-EPI equation. The eGFR declines with age. eGFR <60 mL/min/1.73 m2 is considered as "decreased" This equation should only be used for patients 18 and older. According to the National [employer] ion's Kidney Disease Outcome Quality Initiative (KDOQI) classification and 2012 Kidney Disease Improving Global Outcomes (KDIGO) Clinical Practice Guideline, the stage of CKD should be categorized based on estimated GFR. Stage Description GFR mL/min/1.73 m2 1 Kidney damage with normal or high GFR >=90 2 Kidney damage with mild decrease in GF R 60-89 3a Mild to moderate decrease in GFR 45-59 3b Moderate to severe decrease in GFR 30-44 4 Severe decrease in GFR 15-29 5 Kidney failure <15 (or dialysis) POC eGFR-SANTOS 84 >=60 mL/min/1.73 m2 POC TEL COR Comment: Normal eGFR >= 60 mL/min/1.73 m2 The eGFR is calculated using the CKD-EPI equation. The eGFR declines with age. eGFR <60 mL/min/1.73 m2 is considered as "decreased" This equation should only be used for patients 18 and older. According to the National [employer] ion's Kidney Disease Outcome Quality Initiative (KDOQI) classification and 2012 Kidney Disease Improving Global Outcomes (KDIGO) Clinical Practice Guideline, the stage of CKD should be categorized based on estimated GFR. Stage Description GFR mL/min/1.73 m2 1 Kidney damage with normal or high GFR >=90 2 Kidney damage with mild decrease in GF R 60-89 3a Mild to moderate decrease in GFR 45-59 3b Moderate to severe decrease in GFR 30-44 4 Severe decrease in GFR 15-29 5 Kidney failure <15 (or dialysis) POC Glucose 96 70 - 99 mg/dL POC [facility] Comment: Medications, especially hydroxy urea, can interfere with test results causing a falsely and significantly higher resul t than expected. If a problem is suspected with a patient's result, a sample should be sent to the laboratory for confirmatory testing. POC Ion Ca 0.94 (L) 1.12 - 1.32 mmol/L POC [facility] POC Sample Type Venous POC [facility] POC Clean Dev Yes POC TELCOR Performing Lab [facility] POC TELCO R Comment: [facility] Clinical Lab, [address] [place] [address], [place] [address]; Lab Direct or: Kamini Bae MD Specimen Anatomical Collection Method Collection Time Receive d Time (Source) Location / / Volume Laterality Blood 06/15/2021 12:33 06/15/2021 PM CDT 12:33 PM CDT Emmanuelle Sarabia MD POINT OF CARE TEST ORDERABLE S Performing Organization Address City/State/ZIP Code Phon e Number POC TELCOR Unless otherwise noted, [place] [address] lab tests performed by: Division of Pathology and Laboratory Medicine [address] [place] [address] POC TELCOR (ABNORMAL) Procalcitonin (06/15/2021 10:15 AM CDT) athologist [facility] Procalcitonin 0.74 (H) <=0.08 [facility] ng/mL [facility] Comment: Procalcitonin > 2.00 ng/mL: Procalcit onin levels above 2.00 ng/mL are highly suggestive of a high risk for systematic bacterial infection/ severe sepsis and/or septic shock. Procalcitonin < 0.50 ng/mL: Procalcito nestor levels below 0.50 ng/mL are at low risk for progression to severe sepsis and/ or septic shock. Procalcitonin (ProCT) between 0.15 and 2 .0 ng/mL do not exclude infection, because localized infections (without systemic signs) may be associated with such low levels. Results greater than 400 ng/mL may not b e reliable due to the matrix effect with extended dilution as it exceeds the mule spinner's recommended limit. Caution should be exercised when interpreting such values and done in conjunction with clinical context. Specimen Anatomical Collection Method Collection Time Receive d Time (Source) Location / / Volume Laterality Blood 06/15/2021 10:15 06/15/2021 AM CDT 10:32 AM CDT Tya Holliday MD LAB BLOOD ORDERABLES Performing Organization Address City/State/ZIP Code Phon e Number [facility] Unless otherwise noted, [address] all lab tests performed by: Division of Pathology and Laboratory Medicine [address] [place] [address] (ABNORMAL) VB Lactate (06/15/2021 10:15 AM CDT) athologist [facility] V Lactate 1.7 (H) 0.5 - 1.6 [facility] mmol/L [facility] Specimen Anatomical Collection Method Collection Time Receive d Time (Source) Location / / Volume Laterality Blood 06/15/2021 10:15 06/15/2021 AM CDT 10:24 AM CDT Tay Holliday MD LAB BLOOD ORDERABLES Performing Organization Address City/State/[facility] Phon e Number [facility] Unless otherwise noted, [address] all lab tests performed by: Division of Pathology and Laboratory Medicine [address] [place] [address] Blood culture (06/15/2021 10:15 AM CDT) Component Value Ref Test Analysis Performed At Patholo gist Range Method Time Signature Final Report No growth [facility] Path Review - Immunity and antibiotic use may render culture negative. Ongoing infection requires repeat culture. [place] Bottle/Isolat The results have been review ed and electronically signed by Pathologist: ANATOLY or MOE DALTON MD #[id number] [facility] Specimen Anatomical Collection Method Collection Time Receive d Time (Source) Location / / Volume Laterality Blood 06/15/2021 10:15 06/15/2021 (Venipuncture-Ri AM CDT 11:52 AM CD T ght) Comment: SD Narrative [facility] - 9:06 AM CDT Short draw may invalidate quantitative b lood culture results.06/15/2021 11:53:08 AM CDT Tay Holliday MD MICROBIOLOGY - GENERAL ORDER REHANA Performing Organization Address City/[facility] Phon e Number [facility] Unless otherwise noted, [address] all lab tests performed by: Division of Pathology and Laboratory Medicine [facility] CRP (06/15/2021 10:15 AM CDT)Only the most recent of2 resultswithin the time period is included. P athologist Signature CRP 75.95 mg/L [facility] Comment: Reference ranges for HS CRP assay are as follows: Reference ranges when used to assess car diac risk: <1.00 mg/L Low cardiovascular risk 1.00-3.00 mg/L Average cardiovascular risk >3.00 mg/L High cardiovascular risk. Reference ranges when used to assess inf lammatory responses: Less than or equal to 10.00 mg/L. Specimen Anatomical Collection Method Collection Time Receive d Time (Source) Location / / Volume Laterality Blood 06/15/2021 10:15 06/15/2021 AM CDT 10:32 AM CDT Tay Holliday MD LAB BLOOD ORDERABLES Performing Organization Address [facility] Phon e Number [facility] Unless otherwise noted, [address] all lab tests performed by: Division of Pathology and Laboratory Medicine [facility] ACTH (06/06/2021 9:58 AM CDT) athologist Signature ACTH 8 7 - 63 [facility] pg/mL [facility] Comment: Results greater than 1826 pg/mL may not be reliable due to matrix effect with extended dilution as it exceeds the mule spinner's recommended limit. ACTH reference intervals are established for the morni ng hours from 7-10 am. Due to the circad esperanza rhythm of ACTH levels in plasma, the sample col lection time must be noted. Caution should be exercised when interpreting such values and done in conjunction with clinical context. Specimen Anatomical Collection Method Collection Time Receive d Time (Source) Location / / Volume Laterality Blood 06/06/2021 9:58 AM 2 CDT 11:29 AM CDT Narrative [facility] - 11:50 AM CDT This lab cannot be scheduled at the following locations due to collection/proccessing restrictions: [facility] DIAG LAB CTR [facility] DIAG LAB CTR [facility] REGL DIAG LAB CTR [facility] Leonor Hernandez 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 LAB BLOOD ORDERABLES Performing Organization Address City/[facility] Code Phon e Number [facility] Unless otherwise noted, [address] all lab tests performed by: Division of Pathology and Laboratory Medicine [address] (ABNORMAL) Sed Rate (06/06/2021 9:58 AM CDT) athologist Signature Sed Rate 90 (H) 0 - 9 mm/hr [facility] Specimen Anatomical Collection Method Collection Time Receive d Time (Source) Location / / Volume Laterality Blood 06/06/2021 9:58 AM 2 CDT 11:22 AM CDT Leonor [facility] 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 LAB BLOOD ORDERABLES Performing Organization Address [facility] Phon e Number [facility] Unless otherwise noted, [address] all lab tests performed by: Division of Pathology and Laboratory Medicine [address] Cortisol, Total (06/06/2021 9:58 AM CDT) P athologist Signature Cortisol 14.49 4.80 - 19.50 [facility] [place] [facility] mcg/dL Comment: Cortisol reference intervals are establi shed for the morning hours from 6-10 am and afternoon hours 4-8 pm. Due to circadian rhythm of cortisol levels in serum and plasma, the sample collection time must be noted. Caution should be exercised when interpreting such values and done in con junction with clinical context. Serum Cortisol Reference Ranges: Morning (6-10am) (4.8 - 19.5) Afternoon (4-8pm) (2.5 - 11.9) Testing Performed at [facility] Lab Field Education Coordinator [facility], [address] [place] [address], [address], [place] [address] Specimen Anatomical Collection Method Collection Time Receive d Time (Source) Location / / Volume Laterality Blood 06/06/2021 9:58 AM 2 CDT 10:32 AM CDT Leonor Hernandez NP LAB BLOOD ORDERABLES Performing Organization Address City/State/ZIP Code Phon e Number [facility] [address] [place] [address]. 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 [employer] Explanati on Advance Directives: 12/10/2020 Directive to Physicians Living Will and Family or Surrogates-Hayley Savage Advance Directives: 12/10/2020 Medical Polly quiles of [place] Medical Power of [place] [place] Code Status Date Activated Date Inactivated Comments Full Code 03/16/2022 12:58 PM 03/17/2022 3:34 PM Code Status Date Activated Date Inactivated Comments Full Code 06/15/2021 11:56 AM 06/18/2021 2:35 PM Full Code 08/21/2020 11:46 PM 08/27/2020 4:03 PM Full Code 08/06/2020 2:34 AM 08/07/2020 5:30 PM Full Code 04/08/2020 5:15 PM 04/12/2020 7:49 PM Care Teams Loss Prevention Supervisor Relationship Specialty Start Date End Date Reece Joseph MD PCP - External Follow Urology 11/20/19 [address] [facility] [address], [place] [address] Franky Peralta MD PCP - External Primary Internal Medicine 11/20/19 [address] [facility] [address], [place] [address] Dante Christy MD PCP - General Genitourinary Oncology 02/13/[address] [place] [id number]
[2022-05-01 15:45] LABS: Albumin 1.7 g/dL (3.4-5.0); Bilirubin Total 0.3 mg/dL (0.2-1.0); Potassium 4.7 mmol/L (3.5-5.1); Protein, Total 5.4 g/dL (6.4-8.2)
--- OUTSIDE RECORDS SUMMARY | 2022-05-01 15:47 | XMS REPORT | Continuity of Care Document ---
:1950 Author Organization [facility] t Address [address] [place] [address] Care Team Providers Name Role Phone [phone] Primary Care Physician Unavailable SYSTEM, PROVIDER NOT IN Attending Clinician Unavailable LILIBETH RODRIGUEZ Attending Clinician Unavailable Bárbara Perez RN Attending Clinician Unavailable Shaun Resendiz MD Attending Clinician SHAUN RESENDIZ Attending Clinician Unavailable Joan Vaughn MD Attending Clinician Isabel Marin MD Attending Clinician Unavailable Carina Rincon Attending Clinician Isamar Ricks RN Attending Clinician Unavailable CARINA QUEEN Attending Clinician Unavailable Mary Kay Agustin RN P Attending Clinician Dev Villasenor RN Attending Clinician Unavailable JOAN VAUGHN Attending Clinician Unavailable Cale BRODY, June Attending Clinician Unavailable Marvel Andrea MD Attending Clinician Светлана Roy MD Attending Clinician MARVEL ANDREA Attending Clinician Unavailable Rubén Garcia MD Attending Clinician JULIETA LUX Attending Clinician Unavailable Baylee Nicole Attending Clinician Bridgett Das MD Attending Clinician BRIDGETT DAS Attending Clinician Unavailable Iris Gallego RN Attending Clinician Unavailable NAIN VERGARA Attending Clinician Unavailable Jadiel Oakes Attending Clinician Unavailable Alisha NICKERSON, Nain Attending Clinician Lucille Chu Attending Clinician Ortiz MATHEW, Vidhya Attending Clinician VIDHYA ALCANTAR Attending Clinician Unavailable Taya Yadav APN Attending Clinician CORINA MORIN Attending Clinician Unavailable Corina Paz Attending Clinician Hussain Tovar MA Attending Clinician Unavailable VINCENT STINSON Attending Clinician Unavailable Vincent Stinson MD Attending Clinician [phone] David Lilibeth Barrera Attending Clinician Unavailable Rachana Martin NP Attending Clinician RACHANA MARTIN Attending Clinician Unavailable Nette Correa RN Attending Clinician Alissa Koenig RN Attending Clinician RICK COURTNEY Attending Clinician Unavailable Angela Palomo Attending Clinician Esa Oneill APN Attending Clinician NELI CALDWELL Attending Clinician Unavailable ESA ONEILL Attending Clinician Unavailable Davida Du Attending Clinician Keyon Benavides Attending Clinician Unavailable CANDELARIO HERNANDEZ Attending Clinician Unavailable David MODEL SET ARTISTCandelario Attending Clinician Pam BRODY, Shine KAPADIA P Attending Clinician Unavailable Wojciech Guzman MD Attending Clinician [facility] Joceline GRIGSBY, Neida Attending Clinician Carmelina BRODY, Sonia Attending Clinician MEGAN MAYERS Attending Clinician Unavailable Bell [facility], Ruth Attending Clinician ROSY GRAY Attending Clinician Unavailable LUCILLE CUNNINGHAM Attending Clinician Unavailable Kelly MATHEW, Pillo Attending Clinician Swapna Fontaine Attending Clinician JULIAN LAND Attending Clinician Unavailable Sadia [facility], Francisca Attending Clinician Joel Valadez MD Attending Clinician Sterling Hurtado RN Attending Clinician Unavailable Altagracia Reeves Attending Clinician JOSE MOHAMUD Attending Clinician Unavailable Kim Saunders MA Attending Clinician Unavailable Lynn Green Attending Clinician Shandra Kaplan RN Attending Clinician Unavailable Tonya Warren Attending Clinician Zeus Locke MD Attending Clinician Cynthia Valadez MD Attending Clinician ZEUS LOCKE Attending Clinician Unavailable Flavia Guidry MD Attending Clinician Irvin Marsh MD Attending Clinician IRVIN MARSH Attending Clinician Unavailable Vick Murillo Attending Clinician FLAVIA GUIDRY Attending Clinician Unavailable Brandan Cobb Attending Clinician Malinda Whitley RN Attending Clinician Unavailable Serafin NICKERSON, Rosa Isela Attending Clinician Sara Alba RD Attending Clinician Quintin GRIGSBY, Ale Attending Clinician Sebastian BRODY, Tanya Attending Clinician Unavailable John Gongora MD Attending Clinician JOHN GONGORA Attending Clinician Unavailable Tay Holliday MD Attending Clinician Emmanuelle Lowe MD Attending Clinician TAY HOLLIDAY Attending Clinician Unavailable ANDREINA WILKERSON Attending Clinician Unavailable Crystal Tineo RN Attending Clinician Vernon BRODY, Mary Lou Quiles Attending Clinician Unavailable FER NIXON Attending Clinician Unavailable HUNTER MAYERS Attending Clinician Unavailable DUANE LEES III Attending Clinician Unavailable MORE GAMBINO Attending Clinician Unavailable BRANNON CUNNINGHAM Attending Clinician Unavailable BRANDAN KAT Attending Clinician Unavailable VON CHEUNG Attending Clinician Unavailable REAL HOWARD Attending Clinician Unavailable DEANA GREENE Attending Clinician Unavailable STERLING MCKEON Attending Clinician Unavailable JAVY ERIC Attending Clinician Unavailable KATHIE LAWS Attending Clinician Unavailable LESLYE BENNETT Attending Clinician Unavailable NAEL KNOX Attending Clinician Unavailable FREDDY BEAN Attending Clinician Unavailable ROSY GARIBAY Attending Clinician Unavailable HANNAH GUZMAN Attending Clinician Unavailable SHANIQUE SMITH Attending Clinician Unavailable СВЕТЛАНА GARSIA Attending Clinician Unavailable JOSE BAE Attending Clinician Unavailable ISABEL HOYOS Attending Clinician Unavailable MELITON QUEEN Attending Clinician Unavailable LISA FABIAN Attending Clinician Unavailable Franky Peralta Attending Clinician LILIBETH RODRIGUEZ Admitting Clinician Unavailable VIDHYA ALCANTAR Admitting Clinician Unavailable EMMANUELLE LOWE Admitting Clinician Unavailable MARLO JORGE Admitting Clinician Unavailable JOAN VAUGHN Admitting Clinician Unavailable REAL HOWARD Admitting Clinician Unavailable ROSY GARIBAY Admitting Clinician Unavailable ISABEL HOYOS Admitting Clinician Unavailable JOHN GONGORA Admitting Clinician Unavailable CAMI PATIÑO Admitting Clinician Unavailable Payers Payer Name Policy Type Policy Number Effective Date Expiration Date S jose MEDICARE A B [id number] 2013 00:00:00 [employer] MEDICARE O [id number] 2018 POS 00:00:00 MEDICARE PART A AND [id number] 2013 B 00:00:00 [employer]ET[employer] NON [id number] 2000 CONTRACTED 00:00:00 Problems Condition Condition Condition Status Onset Resolution Last Treating Co mments Source Name Details Category Date Date Treatment Clinician Date Pain Pain Disease Active Univers management management 1-13 it y of education education 00:00: [place] s for family for family 00 [facility] 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 00:00: [place] of of 00 retroperit retroperit An derso oneum and oneum and n peritoneum peritoneum Ca ncer Center 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 00:00: [place] of lymph of lymph 00 nodes of nodes of [place] o multiple multiple n sites sites Cancer Center Other Other Disease Active Univers retention retention 1-05 ity of of urine of urine 00:00: [place] 00 MD [facility] Advance Advance Disease Active 2021-03 Univers care care 2-30 ity of planning planning 00:00: [place] 00 MD [facility] [place] Lower Lower Disease Active Univers urinary urinary 4-10 ity of tract tract 00:00: [place] infectious infectious 00 disease [facility] Hyperkalem Hyperkalem Disease Active U nivers ia ia 7-27 ity of 00:00: [place] 00 MD [facility] Nephrostom Nephrostom Disease Active U nivers y y 6-01 ity of 00:00: [place] 00 MD [facility] Infection Infection Disease Active Uni vers due to due to 6 ity of Human Human 00:00: [place] parainflue parainflue 00 nza virus nza virus Raymundo rso 3 3 [facility] 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 tis 00:00: [place] syndrome syndrome 00 MD [facility] Fever Fever Disease Active Univers presenting presenting 2- it y of with with 00:00: [place] conditions conditions 00 classified classified An derso elsewhere elsewhere n Cancer Center Other Other Disease Active Univers elevated elevated 2-01 ity of white white 00:00: [place] blood cell blood cell 00 count [facility] Blood Blood Disease Active Univers coagulatio coagulatio 2-01 it y of n disorder n disorder [place] [facility] Renal Renal Disease Active Univers insufficie insufficie 2- it y of ncy ncy 00:00: [place] 00 MD [facility] Secondary Secondary Disease Active Uni vers malignant malignant 1-11 ity of neoplasm neoplasm 00:00: [place] of bone [facility] Moderate Moderate Disease Active 2019-03 Unive rs protein-ca protein-ca 2-30 it y of aurelia aurelia 00:00: [place] malnutriti malnutriti [facility] Neuropathy Neuropathy Disease Active 2019-03 U nivers 2-09 ity of 00:00: [place] 00 MD [facility] 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 0-13 it y of disease disease 00:00: [place] 00 MD [facility] Paraplegia Paraplegia Disease Active U nivers 9-29 ity of 00:00: [place] 00 MD [facility] Personal Personal Disease Active Unive rs history of history of 9- it y of malignant malignant 00:[place] neoplasm neoplasm 00 of bladder of bladder An derso [facility] Hematuria Hematuria Disease Active [facility] [place] Overactive Overactive Disease Active [facility] bladder bladder [facility] 00 [place] Essential Essential Disease Active Uni vers hypertensi hypertensi 10-31 it y of on on 00:00: [place] 00 [facility] Benign Benign Disease Active Univers prostatic prostatic 10-31 ity of hyperplasi hyperplasi 00:[place] a a 00 MD [facility] H/O: H/O: Disease Active Univers poliomyeli poliomyeli 10-31 it y of tis tis 00:00: [place] 00 MD [facility] FOLLOW UP FOLLOW UP Diagnosis Active 2018-10-20 [facility] CLINIC CLINIC 09-29 10:22:00 l WITH RESIDENTIAL COUNSELOR WITH RESIDENTIAL COUNSELOR 00:00: Bhavin ALEX ABI 00 Active 09/29/2018 [facility] EVAL EVAL Diagnosis Active 2018-10-19 Mem oria Active 09-01 09:45:00 l 09/01/2018 00:00: Bhavin SAUL [facility] 00 Sleep Sleep Disease Active 1999- Univers apnea apnea - ity of 00:00: [place] 00 MD [facility] Poliomyelo Poliomyelo Disease Active 1949- U nivers malacia malacia 07-06 ity of 00:00: [place] 00 MD [facility] PARAPLEGIA Diagnosis Active 2018-10-20 [place] , PARAPLEGIA 10:22:00 l UNSPECIFIE , Bhavin ball D UNSPECIFIE D Active [facility] Allergies, Adverse Reactions, Alerts Allergy Allergy Status Severity Reaction(s) Onset Inactive Treating Comm ents Source Name Type Date Date Clinician Penicill Propensi Active Anaphylaxis 2020-0 Previous l Univers ins ty to 9-28 y ity of adverse 00:00: tolerated [place] reaction 00 karina MATHEW s ne and [facility] Drug Active High Anaphylaxis 2020-0 MD INS Class 9-28 [facility] 00:00: n 00 [facility] Drug Active High Anaphylaxis 2020-0 MD INS Class 9-28 [facility] 00:00: n 00 [facility] Active High Anaphylaxis 2020-0 MD INS Class 9-28 [facility] 00:00: n 00 [facility] Active High Anaphylaxis 2020-0 MD INS Class 9-28 [facility] 00:00: n 00 [facility] Drug Active High Anaphylaxis 2020-0 MD INS Class 9-28 [facility] 00:00: n 00 [facility] Active High Anaphylaxis 2020-0 MD INS Class 9-28 [facility] 00:00: n 00 [facility] Active High Anaphylaxis 2020-0 MD INS Class 9-28 [facility] 00:00: n 00 [facility] Active High Anaphylaxis 2020-0 MD INS Class 9-28 [facility] 00:00: n 00 [facility] Active High Anaphylaxis 2020-0 MD INS Class 9-28 [facility] 00:00: n 00 [facility] Active High Anaphylaxis 2020-0 MD INS Class 9-28 [facility] 00:00: n 00 [facility] Drug Active High Anaphylaxis 2020-0 MD INS Class 9-28 [facility] 00:00: n 00 [facility] Active High Anaphylaxis 2020-0 MD INS Class 9-28 [place] 00:00: n 00 [facility] Active High Anaphylaxis 2020-0 MD INS Class 9-28 [facility] 00:00: n 00 [facility] Active High Anaphylaxis 2020-0 MD INS Class 9-28 [facility] 00:00: n 00 [facility] Active High Anaphylaxis 2020-0 MD INS Class 9-28 [place] 00:00: n 00 [facility] Active High Anaphylaxis 2020-0 MD INS Class 9-28 [facility] 00:00: n 00 [facility] Active High Anaphylaxis 2020-0 MD INS Class 9-28 [place] 00:00: n 00 [facility] Active High Anaphylaxis 2020-0 MD INS Class 9-28 [place] 00:00: n 00 [facility] Active High Anaphylaxis 2020-0 MD INS Class 9-28 [place] 00:00: n 00 [facility] Active High Anaphylaxis 2020-0 MD INS Class 9-28 [place] 00:00: n 00 [facility] Active High Anaphylaxis 2020-0 MD INS Class 9-28 [place] 00:00: n 00 [facility] Active High Anaphylaxis 2020-0 MD INS Class 9-28 [place] 00:00: n 00 [facility] Active High Anaphylaxis 2020-0 MD INS Class 9-28 [place] 00:00: n 00 [facility] Active High Anaphylaxis 2020-0 MD INS Class 9-28 [place] 00:00: n 00 [facility] Active High Anaphylaxis 2020-0 MD INS Class 9-28 [place] 00:00: n 00 [facility] Active High Anaphylaxis 2020-0 MD INS Class 9-28 [place] 00:00: n 00 [facility] Active High Anaphylaxis 2020-0 MD INS Class 9-28 [place] 00:00: n 00 [facility] Active High Anaphylaxis 2020-0 MD INS Class 9-28 [place] 00:00: n 00 [facility] Active High Anaphylaxis 2020-0 MD INS Class 9-28 [place] 00:00: n 00 [facility] Active High Anaphylaxis 2020-0 MD INS Class 9-28 [place] 00:00: n 00 [facility] Active High Anaphylaxis 2020-0 MD INS Class 9-28 [place]o 00:00: n 00 [facility] Drug Active High Anaphylaxis 2020-0 MD INS Class 9-28 [place] 00:00: n 00 [facility] Active High Anaphylaxis 2020-0 MD INS Class 9-28 [place] 00:00: n 00 [facility] Drug Active High Anaphylaxis 2020-0 MD INS Class 9-28 Anderso 00:00: n 00 [facility] Drug Active High Anaphylaxis 2020-0 MD INS Class 9-28 [place]o 00:00: n 00 [facility] Drug Active High Anaphylaxis 2020-0 MD INS Class 9-28 Anderso 00:00: n 00 [facility] Drug Active High Anaphylaxis 2020-0 MD INS Class 9-28 Anderso 00:00: n 00 [facility] Drug Active High Anaphylaxis 2020-0 MD INS Class 9-28 [place] 00:00: n 00 [facility] Drug Active High Anaphylaxis 2020-0 MD INS Class 9-28 [place] 00:00: n 00 [facility] Drug Active High Anaphylaxis 2020-0 MD INS Class 9-28 [place] 00:00: n 00 [facility] Drug Active High Anaphylaxis 2020-0 MD INS Class 9-28 [place] 00:00: n 00 [facility] Drug Active High Anaphylaxis 2020-0 MD INS Class 9-28 [place] 00:00: n 00 [facility] Drug Active High Anaphylaxis 2020-0 MD INS Class 9-28 [place] 00:00: n 00 [facility] Drug Active High Anaphylaxis 2020-0 MD INS Class 9-28 [place]o 00:00: n 00 [facility] Drug Active High Anaphylaxis 2020-0 MD INS Class 9-28 [place] 00:00: n 00 [facility] Drug Active High Anaphylaxis 2020-0 MD INS Class 9-28 [place] 00:00: n 00 [facility] Drug Active High Anaphylaxis 2020-0 MD INS Class 9-28 [facility] 00:00: n 00 [facility] Active High Anaphylaxis 2020-0 MD INS Class 9-28 [place]o 00:00: n 00 [facility] Active High Anaphylaxis 2020-0 MD INS Class 9-28 [place]o 00:00: n 00 [facility] Active High Anaphylaxis 2020-0 MD INS Class 9-28 [place]o 00:00: n 00 [facility] Active High Anaphylaxis 2020-0 MD INS Class 9-28 [place] 00:00: n 00 [facility] Drug Active High Anaphylaxis 2020-0 MD INS Class 9-28 [place]o 00:00: n 00 [facility] Drug Active High Anaphylaxis 2020-0 MD INS Class 9-28 [facility]o 00:00: n 00 [facility] Active High Anaphylaxis 2020-0 MD INS Class 9-28 Anderso 00:00: n 00 [facility] Active High Anaphylaxis 2020-0 MD INS Class 9-28 [place]o 00:00: n 00 [facility] Active High Anaphylaxis 2020-0 MD INS Class 9-28 Anderso 00:00: n 00 [facility] Active High Anaphylaxis 2020-0 MD INS Class 9-28 Anderso 00:00: n 00 [facility] Drug Active High Anaphylaxis 2020-0 MD INS Class 9-28 Anderso 00:00: n 00 [facility] Drug Active High Anaphylaxis 2020-0 MD INS Class 9-28 Anderso 00:00: n 00 [facility] Drug Active High Anaphylaxis 2020-0 MD INS Class 9-28 Anderso 00:00: n 00 [facility] Drug Active High Anaphylaxis 2020-0 MD INS Class 9-28 Anderso 00:00: n 00 [facility] Drug Active High Anaphylaxis 2020-0 MD INS Class 9-28 Anderso 00:00: n 00 [facility] Drug Active High Anaphylaxis 2020-0 MD INS Class 9-28 Anderso 00:00: n 00 [facility] Drug Active High Anaphylaxis 2020-0 MD INS Class 9-28 Anderso 00:00: n 00 [facility] Drug Active High Anaphylaxis 2020-0 MD INS Class 9-28 Anderso 00:00: n 00 [facility] Drug Active High Anaphylaxis 2020-0 MD INS Class 9-28 Anderso 00:00: n 00 [facility] Drug Active High Anaphylaxis 2020-0 MD INS Class 9-28 Anderso 00:00: n 00 [facility] Active High Anaphylaxis 2020-0 MD INS Class 9-28 [place]o 00:00: n 00 [facility] Active High Anaphylaxis 2020-0 MD INS Class 9-28 Anderso 00:00: n 00 [facility] Active High Anaphylaxis 2020-0 MD INS Class 9-28 [place]o 00:00: n 00 [facility] Active High Anaphylaxis 2020-0 MD INS Class 9-28 [place]o 00:00: n 00 [facility] Active High Anaphylaxis 2020-0 MD INS Class 9-28 Anderso 00:00: n 00 [facility] Active High Anaphylaxis 2020-0 MD INS Class 9-28 Anderso 00:00: n 00 [facility] Active High Anaphylaxis 2020-0 MD INS Class 9-28 Anderso 00:00: n 00 [facility] Active High Anaphylaxis 2020-0 MD INS Class 9-28 Anderso 00:00: n 00 [facility] Active High Anaphylaxis 2020-0 MD INS Class 9-28 Anderso 00:00: n 00 [facility] Active High Anaphylaxis 2020-0 MD INS Class 9-28 Anderso 00:00: n 00 [facility] Drug Active High Anaphylaxis 2020-0 MD INS Class 9-28 Anderso 00:00: n 00 [facility] Drug Active High Anaphylaxis 2020-0 MD INS Class 9-28 Anderso 00:00: n 00 [facility] Active High Anaphylaxis 2020-0 MD INS Class 9-28 Anderso 00:00: n 00 [facility] Active High Anaphylaxis 2020-0 MD INS Class 9-28 Anderso 00:00: n 00 [facility] Active High Anaphylaxis 2020-0 MD INS Class 9-28 Anderso 00:00: n 00 [facility] Active High Anaphylaxis 2020-0 MD INS Class 9-28 [place]o 00:00: n 00 [facility] Active High Anaphylaxis 2020-0 MD INS Class 9-28 Anderso 00:00: n 00 [facility] Active High Anaphylaxis 2020-0 MD INS Class 9-28 Anderso 00:00: n 00 [facility] Active High Anaphylaxis 2020-0 MD INS Class 9-28 Anderso 00:00: n 00 [facility] Active High Anaphylaxis 2020-0 MD INS Class 9-28 Anderso 00:00: n 00 [facility] Active High Anaphylaxis 2020-0 MD INS Class 9-28 Anderso 00:00: n 00 [facility] Active High Anaphylaxis 2020-0 MD INS Class 9-28 Anderso 00:00: n 00 [facility] Active High Anaphylaxis 2020-0 MD INS Class 9-28 Anderso 00:00: n 00 [facility] Active High Anaphylaxis 2020-0 MD INS Class 9-28 Anderso 00:00: n 00 [facility] Active High Anaphylaxis 2020-0 MD INS Class 9-28 Anderso 00:00: n 00 [facility] Active High Anaphylaxis 2020-0 MD INS Class 9-28 Anderso 00:00: n 00 [facility] Active High Anaphylaxis 2020-0 MD INS Class 9-28 Anderso 00:00: n 00 [facility] Active High Anaphylaxis 2020-0 MD INS Class 9-28 Anderso 00:00: n 00 [facility] Active High Anaphylaxis 2020-0 MD INS Class 9-28 Anderso 00:00: n 00 [facility] Active High Anaphylaxis 2020-0 MD INS Class 9-28 Anderso 00:00: n 00 [facility] Active High Anaphylaxis 2020-0 MD INS Class 9-28 Anderso 00:00: n 00 [facility] Active High Anaphylaxis 2020-0 MD INS Class 9-28 Anderso 00:00: n 00 [facility] Active High Anaphylaxis 2020-0 MD INS Class 9-28 Anderso 00:00: n 00 [facility] Active High Anaphylaxis 2020-0 MD INS Class 9-28 Anderso 00:00: n 00 [facility] Active High Anaphylaxis 2020-0 MD INS Class 9-28 Anderso 00:00: n 00 [facility] Active High Anaphylaxis 2020-0 MD INS Class 9-28 Anderso 00:00: n 00 [facility] Active High Anaphylaxis 2020-0 MD INS Class 9-28 Anderso 00:00: n 00 [facility] Active High Anaphylaxis 2020-0 MD INS Class 9-28 Anderso 00:00: n 00 [facility] Active High Anaphylaxis 2020-0 MD INS Class 9-28 Anderso 00:00: n 00 [facility] Active High Anaphylaxis 2020-0 MD INS Class 9-28 Anderso 00:00: n 00 [facility] Active High Anaphylaxis 2020-0 MD INS Class 9-28 [place]o 00:00: n 00 [facility] Active High Anaphylaxis 2020-0 MD INS Class 9-28 Anderso 00:00: n 00 [facility] Active High Anaphylaxis 2020-0 MD INS Class 9-28 [place]o 00:00: n 00 [facility] Active High Anaphylaxis 2020-0 MD INS Class 9-28 [place]o 00:00: n 00 [facility] Active High Anaphylaxis 2020-0 MD INS Class 9-28 Anderso 00:00: n 00 [facility] Active High Anaphylaxis 2020-0 MD INS Class 9-28 Anderso 00:00: n 00 [facility] Active High Anaphylaxis 2020-0 MD INS Class 9-28 Anderso 00:00: n 00 [facility] Active High Anaphylaxis 2020-0 MD INS Class 9-28 Anderso 00:00: n 00 [facility] Active High Anaphylaxis 2020-0 MD INS Class 9-28 Anderso 00:00: n 00 [facility] Active High Anaphylaxis 2020-0 MD INS Class 9-28 Anderso 00:00: n 00 [facility] Active High Anaphylaxis 2020-0 MD INS Class 9-28 Anderso 00:00: n 00 [facility] Drug Active High Anaphylaxis 2020-0 MD INS Class 9-28 Anderso 00:00: n 00 [facility] Active High Anaphylaxis 2020-0 MD INS Class 9-28 Anderso 00:00: n 00 [facility] Drug Active High Anaphylaxis 2020-0 MD INS Class 9-28 Anderso 00:00: n 00 [facility] Drug Active High Anaphylaxis 2020-0 MD INS Class 9-28 Anderso 00:00: n 00 [facility] Drug Active High Anaphylaxis 2020-0 MD INS Class 9-28 Anderso 00:00: n 00 [facility] Drug Active High Anaphylaxis 2020-0 MD INS Class 9-28 Anderso 00:00: n 00 [facility] Drug Active High Anaphylaxis 2020-0 MD INS Class 9-28 Anderso 00:00: n 00 [facility] Drug Active High Anaphylaxis 2020-0 MD INS Class 9-28 Anderso 00:00: n 00 [facility] Drug Active High Anaphylaxis 2020-0 MD INS Class 9-28 Anderso 00:00: n 00 [facility] Drug Active High Anaphylaxis 2020-0 MD INS Class 9-28 Anderso 00:00: n 00 [facility] Drug Active High Anaphylaxis 2020-0 MD INS Class 9-28 Anderso 00:00: n 00 [facility] Drug Active High Anaphylaxis 2020-0 MD INS Class 9-28 Anderso 00:00: n 00 [facility] Drug Active High Anaphylaxis 2020-0 MD INS Class 9-28 Anderso 00:00: n 00 [facility] Drug Active High Anaphylaxis 2020-0 MD INS Class 9-28 Anderso 00:00: n 00 [facility] Drug Active High Anaphylaxis 2020-0 MD INS Class 9-28 Anderso 00:00: n 00 [facility] Active High Anaphylaxis 2020-0 MD INS Class 9-28 Anderso 00:00: n 00 [facility] Drug Active High Anaphylaxis 2020-0 MD INS Class 9-28 Anderso 00:00: n 00 [facility] Drug Active High Anaphylaxis 2020-0 MD INS Class 9-28 Anderso 00:00: n 00 [facility] Active High Anaphylaxis 2020-0 MD INS Class 9-28 Anderso 00:00: n 00 [facility] Active High Anaphylaxis 2020-0 MD INS Class 9-28 Anderso 00:00: n 00 [facility] Active High Anaphylaxis 2020-0 MD INS Class 9-28 Anderso 00:00: n 00 [facility] Active High Anaphylaxis 2020-0 MD INS Class 9-28 Anderso 00:00: n 00 [facility] Active High Anaphylaxis 2020-0 MD INS Class 9-28 Anderso 00:00: n 00 [facility] Active High Anaphylaxis 2020-0 MD INS Class 9-28 Anderso 00:00: n 00 [facility] Active High Anaphylaxis 2020-0 MD INS Class 9-28 Anderso 00:00: n 00 [facility] Active High Anaphylaxis 2020-0 MD INS Class 9-28 Anderso 00:00: n 00 [facility] Active High Anaphylaxis 2020-0 MD INS Class 9-28 Anderso 00:00: n 00 [facility] Active High Anaphylaxis 2020-0 MD INS Class 9-28 Anderso 00:00: n 00 [facility] Active High Anaphylaxis 2020-0 MD INS Class 9-28 Anderso 00:00: n 00 [facility] Active High Anaphylaxis 2020-0 MD INS Class 9-28 Anderso 00:00: n 00 [facility] Active High Anaphylaxis 2020-0 MD INS Class 9-28 Anderso 00:00: n 00 [facility] Active High Anaphylaxis 2020-0 MD INS Class 9-28 Anderso 00:00: n 00 [facility] Active High Anaphylaxis 2020-0 MD [facility] 9-28 [facility] 00:00: n 00 [facility] Drug Active High Anaphylaxis 2020-0 MD [facility] Class 9-28 [facility] 00:00: n 00 [facility] Drug Active High Anaphylaxis 2020-0 MD [facility] Class 9-28 [facility] 00:00: n 00 [facility] Drug Active High Anaphylaxis 2020-0 MD [facility] Class 9-28 [facility] 00:00: n 00 [facility] Drug Active High Anaphylaxis 2020-0 MD [facility] Class 9-28 [facility] 00:00: n 00 [facility] Drug Active High Anaphylaxis 2020-0 MD INS Class 9-28 [facility] 00:00: n 00 [facility] Drug Active High Anaphylaxis 2020-0 MD INS Class 9-28 Anderso 00:00: n 00 [facility] Drug Active High Anaphylaxis 2020-0 MD INS Class 9-28 [facility]o 00:00: n 00 [facility] Drug Active High Anaphylaxis 2020-0 MD INS Class 9-28 Anderso 00:00: n 00 [facility] Drug Active High Anaphylaxis 2020-0 MD INS Class 9-28 Anderso 00:00: n 00 [facility] Drug Active High Anaphylaxis 2020-0 MD INS Class 9-28 [facility] 00:00: n 00 [facility] Drug Active High Anaphylaxis 2020-0 MD INS Class 9-28 [facility] 00:00: n 00 [facility] Drug Active High Anaphylaxis 2020-0 MD INS Class 9-28 Anderso 00:00: n 00 [facility] Drug Active High Anaphylaxis 2020-0 MD INS Class 9-28 [facility] 00:00: n 00 [facility] Drug Active High Anaphylaxis 2020-0 MD INS Class 9-28 [facility] 00:00: n 00 [facility] Drug Active High Anaphylaxis 2020-0 MD INS Class 9-28 [facility] 00:00: n 00 [facility] Drug Active High Anaphylaxis 2020-0 MD [facility] Class 9-28 [facility] 00:00: n 00 [facility] Drug Active High Anaphylaxis 2020-0 MD INS Class 9-28 [facility] 00:00: n 00 [facility] Drug Active High Anaphylaxis 2020-0 MD INS Class 9-28 [facility] 00:00: n 00 [facility] Drug Active High Anaphylaxis 2020-0 MD INS Class 9-28 Anders[facility] 00:00: n 00 [facility] Drug Active High Anaphylaxis 2020-0 MD [facility] Class 9-28 [facility] 00:00: n 00 [facility] Drug Active High Anaphylaxis 2020-0 MD [facility] Class 9-28 [facility] 00:00: n 00 [facility] Drug Active High Anaphylaxis 2020-0 MD [facility] Class 9-28 [facility]o 00:00: n 00 [facility] Drug Active High Anaphylaxis 2020-0 MD [facility] Class 9-28 [facility] 00:00: n 00 [facility] Drug Active High Anaphylaxis 2020-0 MD [facility] Class 9-28 [facility] 00:00: n 00 [facility] Drug Active High Anaphylaxis 2020-0 MD [facility] Class 9-28 [facility] 00:00: n 00 [facility] Drug Active High Anaphylaxis 2020-0 MD [facility] Class 9-28 [facility] 00:00: n 00 [facility] Drug Active High Anaphylaxis 2020-0 MD [facility] Class 9-28 Anderso 00:00: n 00 [facility] Drug Active High Anaphylaxis 2020-0 MD [facility] Class 9-28 [facility]o 00:00: n 00 [facility] Drug Active High Anaphylaxis 2020-0 MD [facility] Class 9-28 Anderso 00:00: n 00 [facility] Drug Active High Anaphylaxis 2020-0 MD [facility] Class 9-28 [facility] 00:00: n 00 [facility] Drug Active High Anaphylaxis 2020-0 MD [facility] Class 9-28 [facility] 00:00: n 00 [facility] Drug Active High Anaphylaxis 2020-0 MD [facility] Class 9-28 Anderso 00:00: n 00 [facility] Drug Active High Anaphylaxis 2020-0 MD [facility] Class 9-28 [facility] 00:00: n 00 [facility] Drug Active High Anaphylaxis 2020-0 MD [facility] Class 9-28 Anderso 00:00: n 00 [facility] Drug Active High Anaphylaxis 2020-0 MD [facility] Class 9-28 [facility] 00:00: n 00 [facility] Drug Active High Anaphylaxis 2020-0 MD [facility] Class 9-28 [facility] 00:00: n 00 [facility] Drug Active High Anaphylaxis 2020-0 MD [facility] Class 9-28 [facility]o 00:00: n 00 [facility] Drug Active High Anaphylaxis 2020-0 MD [facility] Class 9-28 [facility] 00:00: n 00 [facility] Drug Active High Anaphylaxis 2020-0 MD [facility] Class 9-28 Anderso 00:00: n 00 [facility] Drug Active High Anaphylaxis 2020-0 MD [facility] Class 9-28 [facility] 00:00: n 00 [facility] Drug Active High Anaphylaxis 2020-0 MD [facility] Class 9-28 [facility] 00:00: n 00 [facility] Drug Active High Anaphylaxis 2020-0 MD [facility] Class 9-28 Anderso 00:00: n 00 [facility] Drug Active High Anaphylaxis 2020-0 MD [facility] Class 9-28 [facility] 00:00: n 00 [facility] Drug Active High Anaphylaxis 2020-0 MD [facility] Class 9-28 [facility] 00:00: n 00 [facility] Drug Active High Anaphylaxis 2020-0 MD [facility] Class 9-28 [facility] 00:00: n 00 [facility] Drug Active High Anaphylaxis 2020-0 MD [facility] Class 9-28 [facility] 00:00: n 00 [facility] Drug Active High Anaphylaxis 2020-0 MD [facility] Class 9-28 Anderso 00:00: n 00 [facility] Drug Active High Anaphylaxis 2020-0 MD [facility] Class 9-28 [facility] 00:00: n 00 [facility] Drug Active High Anaphylaxis 2020-0 MD [facility] Class 9-28 Anderso 00:00: n 00 [facility] Drug Active High Anaphylaxis 2020-0 MD [facility] Class 9-28 Anderso 00:00: n 00 [facility] Drug Active High Anaphylaxis 2020-0 MD [facility] Class 9-28 [facility]o 00:00: n 00 [facility] Drug Active High Anaphylaxis 2020-0 MD INS Class 9-28 Anderso 00:00: n 00 [facility] Drug Active High Anaphylaxis 2020-0 MD INS Class 9-28 Anderso 00:00: n 00 [facility] Drug Active High Anaphylaxis 2020-0 MD [facility] Class 9-28 Anderso 00:00: n 00 [facility] Drug Active High Anaphylaxis 2020-0 MD [facility] Class 9-28 Anderso 00:00: n 00 [facility] Drug Active High Anaphylaxis 2020-0 MD [facility] Class 9-28 Anderso 00:00: n 00 [facility] Drug Active High Anaphylaxis 2020-0 MD [facility] Class 9-28 Anderso 00:00: n 00 [facility] Drug Active High Anaphylaxis 2020-0 MD [facility] Class 9-28 Anderso 00:00: n 00 [facility] Drug Active High Anaphylaxis 2020-0 MD [facility] Class 9-28 Anderso 00:00: n 00 [facility] Drug Active High Anaphylaxis 2020-0 MD [facility] Class 9-28 Anderso 00:00: n 00 [facility] Drug Active High Anaphylaxis 2020-0 MD [facility] Class 9-28 Anderso 00:00: n 00 [facility] Drug Active High Anaphylaxis 2020-0 MD [facility] Class 9-28 Anderso 00:00: n 00 [facility] Drug Active High Anaphylaxis 2020-0 MD [facility] Class 9-28 [facility]o 00:00: n 00 [facility] Drug Active High Anaphylaxis 2020-0 MD [facility] Class 9-28 [facility]o 00:00: n 00 [facility] Drug Active High Anaphylaxis 2020-0 MD [facility] Class 9-28 [facility]o 00:00: n 00 [facility] Drug Active High Anaphylaxis 2020-0 MD [facility] Class 9-28 [facility]o 00:00: n 00 [facility] Drug Active High Anaphylaxis 2020-0 MD [facility] Class 9-28 Anderso 00:00: n 00 [facility] Drug Active High Anaphylaxis 2020-0 MD [facility] Class 9-28 [facility]o 00:00: n 00 [facility] Drug Active High Anaphylaxis 2020-0 MD [facility] Class 9-28 [facility]o 00:00: n 00 [facility] Drug Active High Anaphylaxis 2020-0 MD [facility] Class 9-28 Anderso 00:00: n 00 [facility] Drug Active High Anaphylaxis 2020-0 MD [facility] Class 9-28 [facility] 00:00: n 00 [facility] Drug Active High Anaphylaxis 2020-0 MD [facility] Class 9-28 [facility]o 00:00: n 00 [facility] Drug Active High Anaphylaxis 2020-0 MD [facility] Class 9-28 [facility] 00:00: n 00 [facility] Drug Active High Anaphylaxis 2020-0 MD [facility] Class 9-28 [facility] 00:00: n 00 [facility] Drug Active High Anaphylaxis 2020-0 MD [facility] Class 9-28 [facility] 00:00: n 00 [facility] Drug Active High Anaphylaxis 2020-0 MD [facility] Class 9-28 [facility] 00:00: n 00 [facility] Drug Active High Anaphylaxis 2020-0 MD [facility] Class 9-28 [facility] 00:00: n 00 [facility] Drug Active High Anaphylaxis 2020-0 MD [facility] Class 9-28 [facility] 00:00: n 00 [facility] Drug Active High Anaphylaxis 2020-0 MD [facility] Class 9-28 [facility]o 00:00: n 00 [facility] Drug Active High Anaphylaxis 2020-0 MD [facility] Class 9-28 [facility]o 00:00: n 00 [facility] Drug Active High Anaphylaxis 2020-0 MD [facility] Class 9-28 [facility] 00:00: n 00 [facility] Drug Active High Anaphylaxis 2020-0 MD [facility] Class 9-28 [facility]o 00:00: n 00 [facility] Drug Active High Anaphylaxis 2020-0 MD [facility] Class 9-28 [facility]o 00:00: n 00 [facility] Drug Active High Anaphylaxis 2020-0 MD [facility] Class 9-28 [facility] 00:00: n 00 [facility] Drug Active High Anaphylaxis 2020-0 MD [facility] Class 9-28 [facility]o 00:00: n 00 [facility] Drug Active High Anaphylaxis 2020-0 MD [facility] Class 9-28 [facility]o 00:00: n 00 [facility] Drug Active High Anaphylaxis 2020-0 MD [facility] Class 9-28 [facility]o 00:00: n 00 [facility] Drug Active High Anaphylaxis 2020-0 MD [facility] Class 9-28 Anderso 00:00: n 00 [facility] Drug Active High Anaphylaxis 2020-0 MD [facility] Class 9-28 Anderso 00:00: n 00 [facility] Drug Active High Anaphylaxis 2020-0 MD [facility] Class 9-28 [facility]o 00:00: n 00 [facility] Drug Active High Anaphylaxis 2020-0 MD [facility] Class 9-28 [facility]o 00:00: n 00 [facility] Drug Active High Anaphylaxis 2020-0 MD [facility] Class 9-28 [facility]o 00:00: n 00 [facility] Drug Active High Anaphylaxis 2020-0 MD INS Class 9-28 [facility]o 00:00: n 00 [facility] Drug Active High Anaphylaxis 2020-0 MD INS Class 9-28 [facility]o 00:00: n 00 [facility] Drug Active High Anaphylaxis 2020-0 MD INS Class 9-28 [facility]o 00:00: n 00 [facility] Drug Active High Anaphylaxis 2020-0 MD INS Class 9-28 [facility]o 00:00: n 00 [facility] Drug Active High Anaphylaxis 2020-0 MD INS Class 9-28 Anderso 00:00: n 00 [facility] Drug Active High Anaphylaxis 2020-0 MD INS Class 9-28 [facility]o 00:00: n 00 [facility] Drug Active High Anaphylaxis 2020-0 MD INS Class 9-28 [facility]o 00:00: n 00 [facility] Drug Active High Anaphylaxis 2020-0 MD INS Class 9-28 Anderso 00:00: n 00 [facility] Drug Active High Anaphylaxis 2020-0 MD INS Class 9-28 [facility]o 00:00: n 00 [facility] Drug Active High Anaphylaxis 2020-0 MD INS Class 9-28 Anderso 00:00: n 00 [facility] Drug Active High Anaphylaxis 2020-0 MD INS Class 9-28 Anderso 00:00: n 00 [facility] Drug Active High Anaphylaxis 2020-0 MD INS Class 9-28 Anderso 00:00: n 00 [facility] Drug Active High Anaphylaxis 2020-0 MD INS Class 9-28 Anderso 00:00: n 00 [facility] Drug Active High Anaphylaxis 2020-0 MD INS Class 9-28 Anderso 00:00: n 00 [facility] Drug Active High Anaphylaxis 2020-0 MD INS Class 9-28 Anderso 00:00: n 00 [facility] Drug Active High Anaphylaxis 2020-0 MD INS Class 9-28 Anderso 00:00: n 00 [facility] Drug Active High Anaphylaxis 2020-0 MD INS Class 9-28 Anderso 00:00: n 00 [facility] Drug Active High Anaphylaxis 2020-0 MD INS Class 9-28 Anderso 00:00: n 00 [facility] Drug Active High Anaphylaxis 2020-0 MD INS Class 9-28 Anderso 00:00: n 00 [facility] Drug Active High Anaphylaxis 2020-0 MD INS Class 9-28 Anderso 00:00: n 00 [facility] Drug Active High Anaphylaxis 2020-0 MD INS Class 9-28 [facility]o 00:00: n 00 [facility] Drug Active High Anaphylaxis 2020-0 MD INS Class 9-28 [facility]o 00:00: n 00 [facility] Drug Active High Anaphylaxis 2020-0 MD INS Class 9-28 [facility]o 00:00: n 00 [facility] Drug Active High Anaphylaxis 2020-0 MD INS Class 9-28 [facility]o 00:00: n 00 [facility] Drug Active High Anaphylaxis 2020-0 MD INS Class 9-28 [facility]o 00:00: n 00 [facility] Drug Active High Anaphylaxis 2020-0 MD INS Class 9-28 [facility]o 00:00: n 00 [facility] Drug Active High Anaphylaxis 2020-0 MD INS Class 9-28 [facility]o 00:00: n 00 [facility] Drug Active High Anaphylaxis 2020-0 MD INS Class 9-28 [facility]o 00:00: n 00 [facility] Drug Active High Anaphylaxis 2020-0 MD INS Class 9-28 [facility]o 00:00: n 00 [facility] Drug Active High Anaphylaxis 2020-0 MD INS Class 9-28 [facility]o 00:00: n 00 [facility] Drug Active High Anaphylaxis 2020-0 MD INS Class 9-28 [facility]o 00:00: n 00 [facility] Drug Active High Anaphylaxis 2020-0 MD INS Class 9-28 [facility]o 00:00: n 00 [facility] Drug Active High Anaphylaxis 2020-0 MD INS Class 9-28 [facility]o 00:00: n 00 [facility] Drug Active High Anaphylaxis 2020-0 MD INS Class 9-28 [facility]o 00:00: n 00 [facility] Drug Active High Anaphylaxis 2020-0 MD INS Class 9-28 Anderso 00:00: n 00 [facility] Drug Active High Anaphylaxis 2020-0 MD INS Class 9-28 Anderso 00:00: n 00 [facility] Drug Active High Anaphylaxis 2020-0 MD INS Class 9-28 Anderso 00:00: n 00 [facility] Drug Active High Anaphylaxis 2020-0 MD INS Class 9-28 Anderso 00:00: n 00 [facility] Drug Active High Anaphylaxis 2020-0 MD INS Class 9-28 [facility]o 00:00: n 00 [facility] Drug Active High Anaphylaxis 2020-0 MD INS Class 9-28 [facility]o 00:00: n 00 [facility] Drug Active High Anaphylaxis 2020-0 MD INS Class 9-28 [facility]o 00:00: n 00 [facility] Drug Active High Anaphylaxis 2020-0 MD INS Class 9-28 [facility]o 00:00: n 00 [facility] Drug Active High Anaphylaxis 2020-0 MD INS Class 9-28 Anderso 00:00: n 00 [facility] Drug Active High Anaphylaxis 2020-0 MD INS Class 9-28 [facility]o 00:00: n 00 [facility] Drug Active High Anaphylaxis 2020-0 MD INS Class 9-28 [facility]o 00:00: n 00 [facility] Drug Active High Anaphylaxis 2020-0 MD INS Class 9-28 Anderso 00:00: n 00 [facility] Drug Active High Anaphylaxis 2020-0 MD INS Class 9-28 [facility]o 00:00: n 00 [facility] Drug Active High Anaphylaxis 2020-0 MD INS Class 9-28 [facility]o 00:00: n 00 [facility] Drug Active High Anaphylaxis 2020-0 MD INS Class 9-28 [facility]o 00:00: n 00 [facility] Drug Active High Anaphylaxis 2020-0 MD INS Class 9-28 Anderso 00:00: n 00 [facility] Drug Active High Anaphylaxis 2020-0 MD INS Class 9-28 [facility]o 00:00: n 00 [facility] Drug Active High Anaphylaxis 2020-0 MD INS Class 9-28 [facility]o 00:00: n 00 [facility] Drug Active High Anaphylaxis 2020-0 MD INS Class 9-28 Anderso 00:00: n 00 [facility] Drug Active High Anaphylaxis 2020-0 MD INS Class 9-28 Anderso 00:00: n 00 [facility] Drug Active High Anaphylaxis 2020-0 MD INS Class 9-28 Anderso 00:00: n 00 [facility] Drug Active High Anaphylaxis 2020-0 MD INS Class 9-28 Anderso 00:00: n 00 [facility] Drug Active High Anaphylaxis 2020-0 MD INS Class 9-28 Anderso 00:00: n 00 [facility] Drug Active High Anaphylaxis 2020-0 MD INS Class 9-28 Anderso 00:00: n 00 [facility] Drug Active High Anaphylaxis 2020-0 MD INS Class 9-28 Anderso 00:00: n 00 [facility] Drug Active High Anaphylaxis 2020-0 MD INS Class 9-28 [facility]o 00:00: n 00 [facility] Drug Active High Anaphylaxis 2020-0 MD INS Class 9-28 Anderso 00:00: n 00 [facility] Drug Active High Anaphylaxis 2020-0 MD INS Class 9-28 Anderso 00:00: n 00 [facility] Drug Active High Anaphylaxis 2020-0 MD INS Class 9-28 Anderso 00:00: n 00 [facility] Drug Active High Anaphylaxis 2020-0 MD INS Class 9-28 Anderso 00:00: n 00 [facility] Drug Active High Anaphylaxis 2020-0 MD INS Class 9-28 Anderso 00:00: n 00 [facility] Drug Active High Anaphylaxis 2020-0 MD INS Class 9-28 Anderso 00:00: n 00 [facility] Drug Active High Anaphylaxis 2020-0 MD INS Class 9-28 Anderso 00:00: n 00 [facility] Drug Active High Anaphylaxis 2020-0 MD INS Class 9-28 Anderso 00:00: n 00 [facility] Drug Active High Anaphylaxis 2020-0 MD INS Class 9-28 Anderso 00:00: n 00 [facility] Drug Active High Anaphylaxis 2020-0 MD INS Class 9-28 [facility]o 00:00: n 00 [facility] Drug Active High Anaphylaxis 2020-0 MD INS Class 9-28 [facility]o 00:00: n 00 [facility] Drug Active High Anaphylaxis 2020-0 MD INS Class 9-28 Anderso 00:00: n 00 [facility] Drug Active High Anaphylaxis 2020-0 MD INS Class 9-28 [facility]o 00:00: n 00 [facility] Drug Active High Anaphylaxis 2020-0 MD INS Class 9-28 [facility]o 00:00: n 00 [facility] Drug Active High Anaphylaxis 2020-0 MD INS Class 9-28 Anderso 00:00: n 00 [facility] Drug Active High Anaphylaxis 2020-0 MD INS Class 9-28 Anderso 00:00: n 00 [facility] Drug Active High Anaphylaxis 2020-0 MD INS Class 9-28 [facility]o 00:00: n 00 [facility] Drug Active High Anaphylaxis 2020-0 MD INS Class 9-28 Anderso 00:00: n 00 [facility] Drug Active High Anaphylaxis 2020-0 MD INS Class 9-28 Anderso 00:00: n 00 [facility] Drug Active High Anaphylaxis 2020-0 MD INS Class 9-28 [facility]o 00:00: n 00 [facility] Drug Active High Anaphylaxis 2020-0 MD INS Class 9-28 Anderso 00:00: n 00 [facility] Drug Active High Anaphylaxis 2020-0 MD INS Class 9-28 Anderso 00:00: n 00 [facility] Drug Active High Anaphylaxis 2020-0 MD INS Class 9-28 [facility]o 00:00: n 00 [facility] Drug Active High Anaphylaxis 2020-0 MD INS Class 9-28 Anderso 00:00: n 00 [facility] Drug Active High Anaphylaxis 2020-0 MD INS Class 9-28 [facility]o 00:00: n 00 [facility] Drug Active High Anaphylaxis 2020-0 MD INS Class 9-28 Anderso 00:00: n 00 [facility] Drug Active High Anaphylaxis 2020-0 MD INS Class 9-28 [facility]o 00:00: n 00 [facility] Drug Active High Anaphylaxis 2020-0 MD INS Class 9-28 Anderso 00:00: n 00 [facility] Drug Active High Anaphylaxis 2020-0 MD INS Class 9-28 [facility]o 00:00: n 00 [facility] Drug Active High Anaphylaxis 2020-0 MD INS Class 9-28 Anderso 00:00: n 00 [facility] Drug Active High Anaphylaxis 2020-0 MD INS Class 9-28 Anderso 00:00: n 00 [facility] Drug Active High Anaphylaxis 2020-0 MD INS Class 9-28 Anderso 00:00: n 00 [facility] Drug Active High Anaphylaxis 2020-0 MD INS Class 9-28 Anderso 00:00: n 00 [facility] Drug Active High Anaphylaxis 2020-0 MD INS Class 9-28 Anderso 00:00: n 00 [facility] Drug Active High Anaphylaxis 2020-0 MD INS Class 9-28 Anderso 00:00: n 00 [facility] Drug Active High Anaphylaxis 2020-0 MD INS Class 9-28 Anderso 00:00: n 00 [facility] Drug Active High Anaphylaxis 2020-0 MD INS Class 9-28 Anderso 00:00: n 00 [facility] Drug Active High Anaphylaxis 2020-0 MD INS Class 9-28 Anderso 00:00: n 00 [facility] Drug Active High Anaphylaxis 2020-0 MD INS Class 9-28 Anderso 00:00: n 00 [facility] Drug Active High Anaphylaxis 2020-0 MD INS Class 9-28 [facility]o 00:00: n 00 [facility] Drug Active High Anaphylaxis 2020-0 MD INS Class 9-28 [facility]o 00:00: n 00 [facility] Drug Active High Anaphylaxis 2020-0 MD INS Class 9-28 [facility]o 00:00: n 00 [facility] Drug Active High Anaphylaxis 2020-0 MD INS Class 9-28 Anderso 00:00: n 00 [facility] Drug Active High Anaphylaxis 2020-0 MD INS Class 9-28 Anderso 00:00: n 00 [facility] Drug Active High Anaphylaxis 2020-0 MD INS Class 9-28 Anderso 00:00: n 00 [facility] Drug Active High Anaphylaxis 2020-0 MD INS Class 9-28 Anderso 00:00: n 00 [facility] Drug Active High Anaphylaxis 2020-0 MD INS Class 9-28 Anderso 00:00: n 00 [facility] Drug Active High Anaphylaxis 2020-0 MD INS Class 9-28 Anderso 00:00: n 00 [facility] Drug Active High Anaphylaxis 2020-0 MD INS Class 9-28 [facility]o 00:00: n 00 [facility] Drug Active High Anaphylaxis 2020-0 MD INS Class 9-28 Anderso 00:00: n 00 [facility] Drug Active High Anaphylaxis 2020-0 MD INS Class 9-28 [facility]o 00:00: n 00 [facility] Drug Active High Anaphylaxis 2020-0 MD INS Class 9-28 [facility]o 00:00: n 00 [facility] Drug Active High Anaphylaxis 2020-0 MD INS Class 9-28 Anderso 00:00: n 00 [facility] Drug Active High Anaphylaxis 2020-0 MD INS Class 9-28 Anderso 00:00: n 00 [facility] Drug Active High Anaphylaxis 2020-0 MD INS Class 9-28 [facility]o 00:00: n 00 [facility] Drug Active High Anaphylaxis 2020-0 MD INS Class 9-28 [facility]o 00:00: n 00 [facility] Drug Active High Anaphylaxis 2020-0 MD INS Class 9-28 [facility]o 00:00: n 00 [facility] Drug Active High Anaphylaxis 2020-0 MD INS Class 9-28 [facility]o 00:00: n 00 [facility] Drug Active High Anaphylaxis 2020-0 MD INS Class 9-28 [facility]o 00:00: n 00 [facility] Drug Active High Anaphylaxis 2020-0 MD INS Class 9-28 [facility]o 00:00: n 00 [facility] Drug Active High Anaphylaxis 2020-0 MD INS Class 9-28 [facility]o 00:00: n 00 [facility] Drug Active High Anaphylaxis 2020-0 MD INS Class 9-28 [facility]o 00:00: n 00 [facility] Drug Active High Anaphylaxis 2020-0 MD INS Class 9-28 Anderso 00:00: n 00 [facility] Drug Active High Anaphylaxis 2020-0 MD INS Class 9-28 Anderso 00:00: n 00 [facility] Drug Active High Anaphylaxis 2020-0 MD INS Class 9-28 Anderso 00:00: n 00 [facility] Drug Active High Anaphylaxis 2020-0 MD INS Class 9-28 Anderso 00:00: n 00 [facility] Drug Active High Anaphylaxis 2020-0 MD INS Class 9-28 [facility] 00:00: n 00 [facility] Drug Active High Anaphylaxis 2020-0 MD INS Class 9-28 [facility] 00:00: n 00 [facility] Propensi Active 2020-[address] [facility] s [facility] Allergy Active 2020-[address] [facility] NO KNOWN Allergy Active [facility] S Family History Family Member Diagnosis Comments Start Date Stop Date Source Natural father Stroke [facility] MD Nitin Cordoba [facility] Social History Social Habit Start Date Stop Date Quantity Comments Source History of tobacco Cigar Smoker Univ ersity of use Soraya galvan [facility] Exposure to 2022-04-19 2022-04-29 Not sure University of SARS-CoV-2 (event) 00:00:00 12:45:00 [facility] Alcohol intake 2022-03-16 2022-03-16 Ex-drinker University of 00:00:00 00:00:00 (finding) Soraya galvan [facility] Cigarettes smoked 2019-12-04 2019-12-04 Univers ity of current (pack per 00:00:00 00:00:00 [place] Brigitte Cervantes ) - Reported Cancer Ce nter Cigarette 2019-12-04 2019-12-04 University of pack-years 00:00:00 00:00:00 Soraya galvan [facility] Tobacco use and 2019-12-04 2019-12-04 Former smokeless Uni versity of exposure 00:00:00 00:00:00 tobacco user [place] [facility] Alcohol Comment 2019-12-04 2019-12-04 quit 2 beers per Uni versity of 00:00:00 00:00:00 day [address] [facility] Social History 2018-11-19 2018-11-19 [facility] 04:59:00 04:59:00 [birth year] MARTHA [place] 00:00:00 00:00:00 [facility] Center Smoking Status Start Date Stop Date Source Ex-smoker 2019-12-04 00:00:00 2019-12-04 00:00:00 [facility] [place] [facility] of [facility] Medications Ordered Filled Start Stop Current Ordering Indication Dosage Frequency Signature Comments Components Source Medication Medication Date Date Medication? Clinician (SIG) Name Name multivitami Yes 1{capsu Take 1 U nivers n capsule 2-22 le} capsule by ity of 13:55: mouth [place] 59 daily. Vitamin [facility] Supplement n . [facility] acetaminoph Yes 1000mg Take 2 Un tish en 2-22 tablets ity of (TYLENOL) 13:55: [place]1,000 mg[place] 500 [place] 59 by mouth 3 tablet (three) [place] times a n day. Cancer [place] methadone Yes Cancer 10mg Take 2 Univ ers (DOLOPHINE) -07 associated tablets ity of 5 mg tablet 00:00: pain (10 mg) by [place] 00 mouth MD every 8 [facility] (eight) n hours. Cancer Center IBUPROFEN 2022- No 200mg Take 200 Un tish ORAL 04-10 02-03 mg by ity of 14:14: 00:00 mouth [place] 27 :00 daily. MD Takes 2 [facility] tabs of n 200 mg Cancer Ibuprofen Center PO daily methadone 2022- No Cancer 10mg Take 2 Uni vers (DOLOPHINE) 04-10- associated tablets ity of 5 mg tablet 00:00: 00:00 pain (10 mg) by [place] 00 :00 mouth MD every 8 [facility] (eight) n hours. Cancer Center methadone 2022- No Cancer Take two U nivers (DOLOPHINE) 04-08 associated tablets PO ity of 5 mg tablet 00:00: 00:00 pain (10 mg) in [place] 00 :00 am, three MD tablets PO [place] (15 mg) in n afternoon, Cancer two Center tablets PO (10 mg) in evening ciprofloxac Yes Cystitis 500mg Take 1 Univers in HCl 1-30 tablet ity of (Cipro) 500 00:00: (500 mg[place] mg tablet 00 by mouth MD twice [place] daily. n Cancer Center erythromyci Yes Primary .5[in_u Administer Univers n (ROMYCIN) 1-27 urothelial s] 0.5 inches ity of 0.5% 00:00: [place] ophthalmic 00 of left eye MD ointment overlapping at Raymundo o sites of bedtime. n urinary Cancer organs Center methadone 2022- No Cancer Take two U nivers (DOLOPHINE) 03-30 associated tablets PO ity of 5 mg tablet 00:00: 00:00 pain (10 mg) in [place] 00 :00 am, three MD tablets PO [place] (15 mg) in n afternoon, Cancer two Center tablets PO (10 mg) in evening methadone 2022- No Cancer 10mg Take 2 Uni vers (DOLOPHINE) 03-25 associated tablets ity of 5 mg tablet 00:00: 00:00 pain (10 mg) by [place] 00 :00 mouth MD every 8 [facility] (eight) n hours. Cancer Center OLANZapine Yes Insomnia 2.5mg Take 1 Univers (ZyPREXA) -17 due to tablet ity of 2.5 mg 00:00: medical (2.5 mg[place] tablet 00 condition by mouth MD nightly as [place] needed for n anxiety or Cancer sleep. [place] HYDROmorpho Yes Cancer 4mg Take 1 Un tish ne 17 associated tablet (4 ity of (Dilaudid) 00:00: pain mg) by [place] 4 mg tablet 00 mouth MD every 4 [facility] (four) n hours as Cancer needed for Center moderate pain or severe pain. methadone 2022- No Cancer 10mg Take 2 Uni vers (DOLOPHINE) 03-2418 associated tablets ity of 5 mg tablet 00:00: 00:00 pain (10 mg) by [place] 00 :00 mouth MD every 8 [facility] (eight) n hours. Cancer [place] HYDROmorpho 2022- No Cancer 4mg Take 1 U nivers ne 03-19 associated tablet (4 ity of (Dilaudid) 00:00: 00:00 pain mg[place] 4 [place] tablet 00 :00 mouth MD every 4 [place] (four) n hours as Cancer needed for Center moderate pain or severe pain. methadone 2022- No Cancer 10mg Take 2 Uni vers (DOLOPHINE) 03-19 associated tablets ity of 5 mg tablet 00:00: 00:00 pain (10 mg) by [place] 00 :00 mouth MD every 8 [facility] (eight) n hours. [facility] mirtazapine Yes Insomnia 15mg Take 1 Univers (REMERON) -05 due to tablet (15 it y of 15 mg 00:00: medical mg) by [place] tablet 00 condition mouth at MD bedtime. [facility] n [facility] Center ibuprofen 2021-03- No 800mg Take 1 Univ ers (ADVIL,MOTR 2-30 12-30 tablet ity o f [place]) 800 mg 19:19: 00:00 (800 mg) [place] tablet 10 :00 by mouth. MD Taking BID [facility] n [facility] Center ibuprofen 2021-03- No 200mg Take 1 Univ ers (ADVIL,MOTR 2-30 12-30 tablet ity o f [place]) 200 mg 15:59: 00:00 (200 mg) [place] tablet 12 :00 by mouth MD every 8 [facility] (eight) n hours as Cancer needed for Center mild pain. naloxone 2021-03 Yes Cancer Use 1 dose U nivers (Narcan) 4 2-30 associated into one ity of mg/actuatio 00:00: pain nostril as [place] n nasal 00 needed for MD spray opioid Anderso overdose. n Do not Cancer prime or Center test the inhaler prior to adminstrat ion. Give another dose into the other nostril after 2 to 3 minutes if the patient does not respond or responds and then relapses into respirator y depression . celecoxib 2021-03- No Cancer 100mg Take 1 Un tish (CeleBREX) 2-17 associated capsule ity of 100 mg 00:00: 00:00 pain (100 mg) [place] capsule 00 :00 by mouth MD twice Anderso daily. n Cancer Center methadone 2021-03- No Cancer 10mg Take 2 Uni vers (DOLOPHINE) 2-30 -12 associated tablets ity of 5 mg tablet 00:00: 00:00 pain (10 mg) by Soraya 00 :00 mouth MD every 8 Anderso (eight) n hours. Cancer Center HYDROmorpho 2021-03- No Cancer 4mg Take 1 U nivers ne 2-30 -12 associated tablet (4 ity of (Dilaudid) 00:00: 00:00 pain mg) by Laura hernandez 4 mg tablet 00 :00 mouth MD every 4 Anderso (four) n hours as Cancer needed for Center moderate pain or severe pain. gabapentin 2021-03 Yes Cancer 300mg Take 1 Un tish (Neurontin) 2-16 associated capsule ity of 300 mg 00:00: pain (300 mg) [place] capsule 00 by mouth MD at Anderso bedtime. n Cancer Center methadone 2021-03- No Cancer Take 1.5 U nivers (DOLOPHINE) 2-16 12-30 associated tabs (7.5 ity of 5 mg tablet 00:00: 00:00 pain mg) in AM [place] 00 :00 5 mg MD afternoon Anderso and 7.5 mg n (1.5 tab) Cancer at night Center HYDROmorpho 2021-03 No Cancer 4mg Take 1 U nivers ne 04-20 associated tablet (4 ity of (Dilaudid) 00:00: 00:00 pain mg) by Laura hernandez 4 mg tablet 00 :00 mouth every 4 Anderso (four) n hours as Cancer needed for Center moderate pain or severe pain. gabapentin 2021-03 Neuropathy, 600mg Take 1 Univers (NEURONTIN) 04-20 not tablet ity o f 600 mg 00:00: 00:00 otherwise (600 mg) [place] tablet 00 :00 specified by mouth MD at Anderso bedtime. n Cancer Center INV-(2021-03 No Malignant 1200mg Take 8 Univers 415) [id number]-175 04-13 02- neoplasm of tablets ity of (KYN-175) 00:00: 00:00 overlapping (1,200 mg) [place] 150 mg 00 :00 sites of by mouth MD tablet urinary daily Anderso organs within 30 n minutes of Cancer consuming Center a meal, at [facility] the same time each day. ciprofloxac 2021-03 Malignant 500mg Take 1 Univers in HCl 04-08 neoplasm of tablet ity of (CIPRO) 500 00:00: 05:59 overlapping (500 mg) [place] mg tablet 00 :00 sites of by mouth urinary twice Anderso organs daily for n 7 days. Cancer Center methadone 2021-03 No Cancer 5mg Take 1 Uni vers (DOLOPHINE) 03-29 associated tablet (5 ity of 5 mg tablet 00:00: 00:00 pain mg) by Pablo khanna 00 :00 mouth every 8 [place]o (eight) n hours. Cancer Center HYDROmorpho 2021-03- No Cancer 4mg Take 1 U nivers ne 03-29 associated tablet (4 ity of (Dilaudid) 00:00: 00:00 pain mg) by Laura hernandez 4 mg tablet 00 :00 mouth every 4 Anderso (four) n hours as Cancer needed for Center moderate pain or severe pain. methadone 2021-03 No Cancer 5mg Take 1 Uni vers (DOLOPHINE) 03-24 associated tablet (5 ity of 5 mg tablet 00:00: 00:00 pain mg) by Pablo as 00 :00 mouth MD every 8 [place] (eight) n hours. Cancer Center naproxen 2021-03 220mg Take 220 Uni vers sodium 220 03-15 11-08 mg by ity of mg cap 12:12: 00:00 mouth 2 [place] 54 :00 (two) MD times a Anderso day with n meals. Cancer Patient Center only takes it at night for his right knee. INV-(2021-03 Personal 1200mg Take 8 Univers 415) [id number] 03-15 12-06 history of tablets ity of (KYN-175) 00:00: 22:25 malignant (1,200 mg) [place] 150 mg 00 :28 neoplasm of by mouth MD tablet bladder daily. Anderso Take n within 30 Cancer minutes of Center consuming a meal. [facility] [place] [facility] each day. HYDROmorpho 2021-03 No Cancer 4mg Take 1 U nivers ne 03-10 associated tablet (4 ity of (Dilaudid) 00:00: 00:00 pain mg) by Laura s 4 mg tablet 00 :00 mouth MD every 4 Anderso (four) n hours as Cancer needed for Center moderate pain or severe pain. methadone 2021-03 No Cancer 5mg Take 1 Uni vers (DOLOPHINE) 001-22 associated tablet (5 ity of 5 mg tablet 00:00: 00:00 pain mg) by Pablo as 00 :00 mouth MD every 8 Anderso (eight) n hours. Cancer Center HYDROmorpho 2021-03- No Cancer 4mg Take 1 U nivers ne 0- associated tablet (4 ity of (Dilaudid) 00:00: 00:00 pain mg) by Laura s 4 mg tablet 00 :00 mouth MD every 4 Anderso (four) n hours as Cancer needed for Center moderate pain or severe pain. methadone 2021-03- No Cancer 5mg Take 1 Uni vers (DOLOPHINE) 0-17 10-21 associated tablet (5 ity of 5 mg tablet 00:00: 00:00 pain mg) by Pablo khanna 00 :00 mouth MD every 12 Anderso (twelve) n hours. Cancer Center [facility] 2021-03 Yes Malignant Apply Univers ne 0-11 neoplasm of topically ity of (KENALOG) 00:00: overlapping to [place] 0.5% cream 00 sites of affected M D urinary area(s) 3 Anderso organs (three) n times a Cancer day. Center INV-(2021-03- No Personal 1200mg Take 8 Univers 415) [id number]-[id number] 0-11 11-08 history of tablets ity of (KYN-175) 00:00: 00:00 malignant (1,200 mg) [place] 150 mg 00 :00 neoplasm of by mouth MD tablet bladder daily. Anderso Take n within 30 Cancer minutes of Center consuming a meal. The [facility] [place] the same time each day. acetaminoph 2021-03 No 500mg Take Univ ers en 0-10 10-10 500-1,000 ity of (TYLENOL) 11:08: 00:00 mg by Soraya 500 mg 36 :00 mouth MD tablet every 6 Anderso (six) n hours as Cancer needed for Center mild pain or moderate pain. Buy over the counter. mirtazapine Insomnia 15mg Take 1 Univers (REMERON) 11-21 due to tablet (15 i ty of 15 mg 00:00: 00:00 medical mg) by Soraya tablet 00 :00 condition mouth at MD bedtime. [facility] n Cancer Center gabapentin No Neuropathy, 600mg Take 1 Univers (NEURONTIN) 11-21 not tablet ity o f 600 mg 00:00: 00:00 otherwise (600 mg) [place] tablet 00 :00 specified by mouth MD at Anderso bedtime. n Cancer Center HYDROmorpho No Cancer 2mg Take 1 U nivers ne 11-21- associated tablet (2 ity of (Dilaudid) 00:00: 00:00 pain mg) by Laura hernandez 2 mg tablet 00 :00 mouth MD every 4 Anderso (four) n hours as Cancer needed Center (pain). methadone Cancer 5mg Take 1 Uni vers (DOLOPHINE) 11-21 associated tablet (5 ity of 5 mg tablet 00:00: 00:00 pain mg) by Pablo as 00 :00 mouth MD every 12 Anderso (twelve) n hours. Cancer Center senna No 2{tbl} Take 2 Univers (SENOKOT) 11-18 tablets by ity of 8.6 mg 14:01: 00:00 mouth [place] tablet 14 :00 twice MD daily. To Anderso prevent n constipati Cancer on Center (stimulant ). Buy over the counter. levoFLOXaci 2021- Primary 750mg Take 1 Univers n 11-18 urothelial tablet ity of (Levaquin) 00:00: 00:00 carcinoma (750 mg) [place] 750 mg 00 :00 of by mouth MD tablet overlapping daily. For Anderso lesion of lung n urinary infection Cancer organ Center INV-(2021- No Personal 1200mg Take 8 Univers 415) [id number]-[id number] 11-18 10- history of tablets ity of (KYN-175) 00:00: 16:51 malignant (1,200 mg) [place] 150 mg 00 :38 neoplasm of by mouth MD tablet bladder daily. Anderso Take n within 30 Cancer minutes of Center consuming a meal. The dose should be taken at [place]at [place] the same time each day. methadone Cancer 5mg Take 1 Uni vers (DOLOPHINE) 10-24 associated tablet (5 ity of 5 mg tablet 00:00: 00:00 pain mg) by Pablo as 00 :00 mouth MD every 12 Anderso (twelve) n hours. Cancer Center prochlorper Personal 10mg Take 1 Univers azine 10-21 02-11 history of tablet (10 i ty of (Compazine) 00:00: 00:00 malignant mg) by [place] 10 mg 00 :00 neoplasm of mouth MD tablet bladder every 8 Anderso (eight) n hours as Cancer needed for Center nausea or vomiting. INV-(2021- No Personal 1200mg Take 8 Univers 415) [id number]-175 10-21 history of tablets ity of (KYN-175) 00:00: 19:06 malignant (1,200 mg) [place] 150 mg 00 :30 neoplasm of by mouth MD tablet bladder daily. Anderso Take n within 30 Cancer minutes of Center consuming a meal. The dose should be taken at approximat [place] the same time each day. methadone 2021- No Cancer 5mg Take 1 Uni vers (DOLOPHINE) 10-20 associated tablet (5 ity of 5 mg tablet 00:00: 00:00 pain mg) by Pablo as 00 :00 mouth MD every 12 Anderso (twelve) n hours. Cancer Center propranoloL Poliomyelom TAKE 1 Univers (INDERAL) 10-09 alacia TABLET BY it y of 60 mg 00:00: 00:00 MOUTH [place] tablet 00 :00 TWICE A MD DAY EVERY Anderso DAY TO n PREVENT Cancer TREMORS Center HOLD IF SYSTOLIC BP LESS THAN 110 Bifidobacte 2021- No 1{capsu Take 1 Univers rium 09-23 le} capsule by ity of infantis 10:17: 00:00 mouth [place] (Align) 4 47 :00 daily. GI MD mg cap health [facility] n Cancer Center loperamide Personal 2mg Take 2 Univers (IMODIUM) 2 09-23 history of capsules ity of mg capsule 00:00: 00:00 malignant (4 mg) [place] 00 :00 neoplasm of after the MD bladder first Anderso loose n bowel Cancer movement, Center and 1 capsule (2 mg) after each loose bowel movement after the first dose has been taken. No more than 8 mg (4 capsules) should be taken in any 24-hour period. prochlorper No Personal 10mg Take 1 Univers azine 09-23 history of tablet (10 i ty of (Compazine) 00:00: 00:00 malignant mg) by [place] 10 mg 00 :00 neoplasm of mouth MD tablet bladder every 8 Anderso (eight) n hours as Cancer needed for Center nausea or vomiting. INV-(2021-2021- No Personal 1200mg Take 8 Univers 415) [id number] 09-23 history of tablets ity of (KYN-175) 00:00: 14:50 malignant (1,200 mg) [place] 150 mg 00 :06 neoplasm of by mouth MD tablet bladder daily. Anderso Take n within 30 Cancer minutes of Center consuming a meal. The dose should be taken at approximat [place] the same time each day. HYDROmorpho 2021- Cancer 2mg Take 1 U nivers ne 09-22 associated tablet (2 ity of (Dilaudid) 00:00: 00:00 pain mg) by Pabl[place] s 2 mg tablet 00 :00 mouth MD every 4 Anderso (four) n hours as Cancer needed Center (pain). methadone 2021- Cancer 5mg Take 1 Uni vers (DOLOPHINE) 09-22 associated tablet (5 ity of 5 mg tablet 00:00: 00:00 pain mg) by Pablo as 00 :00 mouth MD every 12 Anderso (twelve) n hours. Cancer Center HYDROmorpho 2021- No Cancer 2mg Take 1 U nivers ne 09-12 associated tablet (2 ity of (Dilaudid) 00:00: 00:00 pain mg) by Laura s 2 mg tablet 00 :00 mouth MD every 4 Anderso (four) n hours as Cancer needed Center (pain). methadone Cancer 2.5mg Take 0.5 Univers (DOLOPHINE) 08-29 associated tablets ity of 5 mg tablet 00:00: 00:00 pain (2.5 mg) [place] 00 :00 by mouth MD every 12 Anderso (twelve) n hours. Cancer Center gabapentin Neuropathy, 300 mg Univers (NEURONTIN) 08-27 not twice ity of 300 mg 00:00: 00:00 otherwise daily x 1 [place] capsule 00 :00 specified week 300 MD mg nightly Anderso x 2 weeks n Then stop Cancer Center mirtazapine 2021- No Insomnia 15mg Take 1 Univers (REMERON) 08-27 due to tablet (15 i ty of 15 mg 00:00: 00:00 medical mg) by Soraya tablet 00 :00 condition mouth at MD bedtime. [facility] n Cancer Center HYDROmorpho 2021- No Cancer 2mg Take 1 U nivers ne 08-27-08 associated tablet (2 ity of (Dilaudid) 00:00: 00:00 pain mg) by [place] 2 mg tablet 00 :00 mouth MD every 4 Anderso (four) n hours as Cancer needed Center (pain). methadone 2021- No Cancer 2.5mg Take 0.5 Univers (DOLOPHINE) 08-27- associated tablets ity of 5 mg tablet 00:00: 00:00 pain (2.5 mg) [place] 00 :00 by mouth MD every 12 Anderso (twelve) n hours. Cancer Center HYDROcodone 2021- No Neuropathy, 1{tbl} Take 1 Univers -acetaminop 6-16 -22 not tablet by it y of hen (NORCO) 00:00: 00:00 otherwise mouth [place] 10 mg-325 00 :00 specified every 6 MD mg per (six) Anderso tablet hours as n needed for Cancer moderate Center pain or severe pain. HYDROcodone 2021- No Neuropathy, 1{tbl} Take 1 Univers -acetaminop 5-26 06-16 not tablet by it y of hen (NORCO) 00:00: 00:00 otherwise mouth [place] 10 mg-325 00 :00 specified every 6 MD mg per (six) Anderso tablet hours as n needed for Cancer moderate Center pain or severe pain. HYDROcodone 2021- No Neuropathy, 1{tbl} Take 1 Univers -acetaminop 5-05 05-26 not tablet by it y of hen (NORCO) 00:00: 00:00 otherwise mouth [place] 10 mg-325 00 :00 specified every 6 MD mg per (six) Anderso tablet hours as n needed for Cancer moderate Center pain or severe pain. HYDROcodone 2021- No Neuropathy, 1{tbl} Take 1 Univers -acetaminop 4-27 04-28 not tablet by it y of hen (NORCO) 00:00: 00:00 otherwise mouth [place] 10 mg-325 00 :00 specified every 6 MD mg per (six) Anderso tablet hours as n needed for Cancer moderate Center pain or severe pain. metoclopram 2021- No Early 10mg Take 2 Un tish rodri 06-18 satiety tablets ity of (Reglan) 5 00:00: 00:00 (10 mg) by [place] mg tablet 00 :00 mouth See MD Admin Andajayo Instructio n ns. Take Cancer before Center dinner to help bowels move and prevent nausea, may increase appetite ciprofloxac 2021- No Urinary 500mg Take 1 Univers in HCl 06-18 tract tablet ity of (CIPRO) 500 00:00: 04:59 infection (500 mg) [place] mg tablet 00 :00 by mouth twice Anderso daily for n 14 days. Cancer For Center infection as per ID consultati on, dose adjusted for kidney dysfunctio n metoclopram 2021- No Early 10mg Take 2 Un tish rodri 06-18 satiety tablets ity of (Reglan) 5 00:00: 00:00 (10 mg) by [place] mg tablet 00 :00 mouth See MD Admin Anders[place] Instructio n ns. Take Cancer before Center dinner to help bowels move and prevent nausea HYDROcodone 2021- No Neuropathy, 1{tbl} Take 1 Univers -acetaminop 06-12 not tablet by it y of hen (NORCO) 00:00: 00:00 otherwise mouth [place] 10 mg-325 00 :00 specified every 6 MD mg per (six) Anderso tablet hours as n needed for Cancer moderate Center pain or severe pain. gabapentin No Neuropathy, 300mg Take 1 Univers (NEURONTIN) 05-05 not capsule ity of 300 mg 00:00: 00:00 otherwise (300 mg) [place] capsule 00 :00 specified by mouth twice Anderso daily. n Cancer Center mirtazapine 2021- No Insomnia 15mg Take 1 Univers (REMERON) 05-05 due to tablet (15 i ty of 15 mg 00:00: 00:00 medical mg) by [place] tablet 00 :00 condition mouth at MD bedtime. Anderso n Cancer [place] metoclopram No Early 5mg Take 1 Un tish rodri 05-05 satiety tablet (5 ity of (Reglan) 5 00:00: 00:00 mg) by [place] mg tablet 00 :00 mouth 3 MD (three) Anderso times a n day before Cancer meals. Center HYDROcodone 2021- No Neuropathy, 1{tbl} Take 1 Univers -acetaminop 2-28 06-12 not tablet by it y of hen (NORCO) 00:00: 00:00 otherwise mouth [place] 10 mg-325 00 :00 specified every 6 MD mg per (six) Anderso tablet hours as n needed for Cancer moderate Center pain or severe pain. propranoloL 2021- No Poliomyelom TAKE 1 Univers (INDERAL) 03-27 alacia TABLET BY it y of 60 mg 00:00: 21:33 MOUTH [place] tablet 00 :38 TWICE A MD DAY EVERY Anderso DAY TO n PREVENT Cancer TREMORS Center HOLD IF SYSTOLIC BP LESS THAAN 110 mirtazapine 2021- No Insomnia 15mg Take 1 Univers (REMERON) 03-10 due to tablet (15 i ty of 15 mg 00:00: 00:00 medical mg) by [place] tablet 00 :00 condition mouth at MD bedtime. [facility] n Cancer Center HYDROcodone 2020-03- No Chronic 1{tbl} Take 1 Univers -acetaminop 05-05 pain due to tablet by ity of hen (NORCO) 00:00: 00:00 malignant mouth [place] 5 mg-325 mg 00 :00 neoplastic every 6 MD per tablet disease (six) Vern so hours as n needed for Cancer moderate Center pain or severe pain. gabapentin 2020-03- No Neuropathy, 300mg Take 1 Univers (NEURONTIN) 03-08 not capsule ity of 300 mg 00:00: 00:00 otherwise (300 mg) [place] capsule 00 :00 specified by mouth MD twice Anderso daily. n Cancer Center lidocaine-p Yes Encounter APPLY TO Univers rilocaine 2-27 for PORT-A-CAT ity of (EMLA) 00:00: adjustment H AREA 30 [place] 2.5-2.5% 00 and TO 45 MD cream management MINUTES Vern so of vascular PRIOR TO n access PORT Cancer device ACCESS Center DIRECTED (TOPICAL ANESTHETIC ). polyethylen Yes Personal 17g Take 17 g Univers e glycol 2-05 history of by mouth i ty of (MIRALAX) 00:00: malignant daily. [place] 17 g packet 00 neoplasm of Constipati bladder on. Anderso Available n over the Cancer counter. Center Hold for diarrhea/l oose stools. propranoloL 2020-0 Yes 40mg [id number] Take [address] [facility] (INDERAL) 8-31 [id number] by mouth 3 [facility] 40 [facility] 14:38: 3D (three) Medical tablet 07 times Center daily. lisinopriL 2020-0 Yes 20mg QD Take [address] [facility] (PRINIVIL,Z 8-31 by mouth Luke s ESTRIL) 20 14:38: daily. Medic al MG tablet 07 Center finasteride 2020-0 Yes 5mg QD Take [address] (PROSCAR) 5 8-31 by mouth Luke s mg tablet 14:38: daily. Medica l 07 Center tamsulosin 2020-0 Yes .4mg QD Take 0.[address] [facility] (FLOMAX) 8-31 mg by [facility].4 mg Cap 14:38: mouth Medica l 24 hr 07 daily. Center capsule polyethylen 2019-0 Yes 17g Take [address] e glycol 8-31 by mouth [facility] (GLYCOLAX) 00:00: daily as Med ical 17 gram 00 needed Center packet (for constipati on). tamsulosin 2020-0 Yes .4mg Take 1 Unive rs (FLOMAX) 7-01 capsule ity of 0.4 mg 24 00:00: (0.4 mg) [place] hr capsule 00 by mouth daily. [place] Urinary n flow Cancer Center Immunizations Ordered Filled Immunization Date Status Comments [facility] e Immunization Name Name Pfizer SARS-CoV-2 2020-12-15 Completed Univer sity of Vaccination (Purple 00:00:00 [facility]) Cancer Center Pfizer SARS-CoV-2 2020-05-05 Completed Univer sity of Vaccination (Purple 00:00:00 [facility]) Cancer Center Pfizer SARS-CoV-2 2020-04-06 Completed Univer sity of Vaccination (Purple 00:00:00 [facility]) Cancer Center Vital Signs Vital Name Observation Time Observation Value Comments Source HEIGHT 2019-11-01 00:00:00 175.3 cm WEIGHT 2019-11-01 00:00:00 90.719 kg WEIGHT 2020-08-13 11:08:46 69.9 kg HEIGHT 2020-08-06 23:00:00 175.3 cm WEIGHT 2020-08-06 03:49:01 72.9 kg WEIGHT 2020-07-30 13:24:22 71.4 kg HEIGHT 2020-07-30 11:45:00 175 cm WEIGHT 2020-07-30 11:45:00 71.4 kg WEIGHT 2020-07-16 10:49:04 73.1 kg HEIGHT 2020-07-16 09:34:00 175 cm WEIGHT 2020-07-16 09:34:00 73.1 kg HEIGHT 2020-07-02 13:08:00 175 cm WEIGHT 2020-07-02 13:08:00 70 kg WEIGHT 2020-06-18 10:32:04 69.9 kg HEIGHT 2020-06-18 09:08:00 175 cm WEIGHT 2020-06-18 09:08:00 69.9 kg WEIGHT 2020-06-04 16:53:05 71.9 kg WEIGHT 2020-05-17 13:08:39 71.3 kg WEIGHT 2020-05-03 10:27:00 72.9 kg WEIGHT 2020-04-19 10:11:00 76.4 kg HEIGHT 2020-04-09 03:31:00 175 cm WEIGHT 2020-04-09 03:31:00 75.1 kg WEIGHT 2020-03-26 14:40:38 78 kg HEIGHT 2020-03-26 10:05:38 175 cm WEIGHT 2020-03-26 10:05:38 78 kg WEIGHT 2020-03-08 05:00:00 88.3 kg HEIGHT 2020-03-05 11:44:00 175 cm WEIGHT 2020-03-05 11:44:00 79.6 kg WEIGHT 2020-02-16 03:16:32 86.3 kg HEIGHT 2020-02-13 14:15:00 175 cm WEIGHT 2020-02-13 14:15:00 81 kg WEIGHT 2020-02-09 12:35:00 82 kg WEIGHT 2020-01-29 03:28:32 81.9 kg HEIGHT 2020-01-26 15:48:00 175 cm WEIGHT 2020-01-26 12:44:00 86.7 kg WEIGHT 2020-01-12 04:32:13 90.7 kg HEIGHT 2020-01-09 11:00:00 175.3 cm WEIGHT 2020-01-09 08:29:52 87.9 kg WEIGHT 2020-01-02 13:03:02 88 kg WEIGHT 2020-01-02 08:26:52 88 kg WEIGHT 2019-12-20 07:04:00 85.6 kg HEIGHT 2019-12-18 09:40:00 175.3 cm WEIGHT 2019-12-18 09:40:00 86.183 kg WEIGHT 2019-12-12 11:26:42 85.3 kg WEIGHT 2019-12-08 04:08:02 85.4 kg HEIGHT 2019-12-07 20:16:00 175.3 cm HEIGHT 2019-12-05 11:07:00 81.6 cm WEIGHT 2019-12-04 10:58:00 81.647 kg HEIGHT 2019-11-01 00:00:00 175.3 cm WEIGHT 2019-11-01 00:00:00 90.719 kg Systolic blood 2022-04-29 19:51:00 104 mm[Hg] Univer sity of pressure [facility] Diastolic blood 2022-04-29 19:51:00 66 mm[Hg] Unive rsity of pressure [facility] Heart rate 2022-04-29 19:51:00 89 /min Universi ty of [facility] Body temperature 2022-04-29 19:51:00 36.39 Svetlana Univ ersity of [facility] Respiratory rate 2022-04-29 19:51:00 16 /min Univ ersity of [facility] Oxygen saturation in 2022-04-24 18:49:41 97 /min University of Arterial blood by Soraya tay Pulse oximetry Cancer Center Body weight 2022-04-18 19:58:06 74 kg Universi ty of [facility] BMI 2022-04-18 19:58:06 24.08 kg/m2 Universi ty of [facility] Body height 2022-04-17 16:28:00 175.3 cm Universi ty of [facility] Systolic (mm Hg) 2018-10-20 16:08:00 Justo Mosher Diastolic (mm Hg) 2018-10-20 16:08:00 Bri Mosher Weight 2018-10-20 16:08:00 Madan Mosher Height 2018-09-07 19:08:00 175.26 cm [place] [facility] Procedure Date / Time Performing Source Performed Clinician COMPREHENSIVE METABOLIC PANEL 2022-04-24 [facility] 18:32:00 [facility] COMPLETE BLOOD COUNT W/ 2022-04-24 [facility] DIFFERENTIAL 18:32:00 [facility] FREE THYROXINE 2022-04-24 [facility] 18:32:00 [facility] THYROID STIMULATING HORMONE 2022-04-24 [facility] 18:32:00 [facility] GLUCOSE LEVEL 2022-04-24 [facility] [place] 18:32:00 [facility] BLOOD UREA NITROGEN 2022-04-24 [facility] 18:32:00 [facility] ELECTROLYTE PANEL 2022-04-24 [facility] 18:32:00 [facility] SERUM CREATININE 2022-04-24 [facility] [place] 18:32:00 [facility] .GLOMERULAR FILTRATION RATE 2022-04-24 [facility] 18:32:00 [facility] CALCIUM LEVEL TOTAL 2022-04-24 [facility] 18:32:00 [facility] ALBUMIN LEVEL 2022-04-24 [facility] 18:32:00 [facility] ALKALINE PHOSPHATASE 2022-04-24 [facility] 18:32:00 [facility] ALANINE AMINOTRANSFERASE 2022-04-24 [facility] 18:32:00 [facility] ASPARTATE AMINOTRANSFERASE 2022-04-24 [facility] 18:32:00 [facility] TOTAL PROTEIN 2022-04-24 [facility] [place] 18:32:00 [facility] FRACTIONATED BILIRUBIN 2022-04-24 [facility] 18:32:00 [facility] Results CBC 2022-04-24 [facility] 18:32:00 [facility] MANUAL DIFFERENTIAL 2022-04-24 [facility] 18:32:00 [facility] COMPREHENSIVE METABOLIC PANEL 2022-04-17 [facility] 16:09:00 [facility] COMPLETE BLOOD COUNT W/ 2022-04-17 [facility] DIFFERENTIAL 16:09:00 [facility] FREE THYROXINE 2022-04-17 [facility] 16:09:00 [facility] THYROID STIMULATING HORMONE 2022-04-17 [facility] 16:09:00 [facility] GLUCOSE LEVEL 2022-04-17 [facility] 16:09:00 [facility] BLOOD UREA NITROGEN 2022-04-17 [facility] 16:09:00 [facility] ELECTROLYTE PANEL 2022-04-17 [facility] 16:09:00 [facility] SERUM CREATININE 2022-04-17 [facility] ex 16:09:00 [facility] .GLOMERULAR FILTRATION RATE 2022-04-17 [facility] 16:09:00 [facility] CALCIUM LEVEL TOTAL 2022-04-17 [facility] 16:09:00 [facility] ALBUMIN LEVEL 2022-04-17 [facility] 16:09:00 [facility] ALKALINE PHOSPHATASE 2022-04-17 [facility] 16:09:00 [facility] ALANINE AMINOTRANSFERASE 2022-04-17 [facility] 16:09:00 [facility] ASPARTATE AMINOTRANSFERASE 2022-04-17 [facility] 16:09:00 [facility] TOTAL PROTEIN 2022-04-17 [facility] 16:09:00 [facility] Center FRACTIONATED BILIRUBIN 2022-04-17 [facility] 16:09:00 [facility] Center Results CBC 2022-04-17 [facility] 16:09:00 [facility] Center MANUAL DIFFERENTIAL 2022-04-17 [facility] [place] 16:09:00 [facility] QIAC SERVICES 2022-04-15 [facility] 20:22:16 [facility] GENERAL LABORATORY ADD ON 2022-04-14 [facility] 21:27:00 [facility] URINALYSIS WITH MICROSCOPIC 2022-04-[facility] 19:07:10 [facility] URINALYSIS MICROSCOPIC EXAM 2022-04-14 [facility] 19:07:10 [facility] [facility] COMPLETE BLOOD COUNT W/ 2022-04-14 [facility] DIFFERENTIAL 19:04:29 [facility] COMPREHENSIVE METABOLIC PANEL 2022-04-14 [facility] 19:04:29 [facility] LIPID PANEL 2022-04-14 [facility] [place] 19:04:29 [facility] PROTHROMBIN TIME 2022-04-14 [facility] [place] 19:04:29 [facility] APTT 2022-04-14 [facility] [place] 19:04[facility]29 [facility] Results CBC 2022-04-14 [facility] [place] 19:04:29 [facility] MANUAL DIFFERENTIAL 2022-04-14 [facility] 19:04:29 [facility] GLUCOSE LEVEL 2022-04-14 [facility] [place] 19:04:29 [facility] BLOOD UREA NITROGEN 2022-04-14 [facility] [place] 19:04:29 [facility] ELECTROLYTE PANEL 2022-04-14 [facility] 19:04:29 [facility] SERUM CREATININE 2022-04-14 [facility] [place] 19:04:29 [facility] .GLOMERULAR FILTRATION RATE 2022-04-14 [facility] 19:04:29 [facility] CALCIUM LEVEL TOTAL 2022-04-14 [facility] 19:04:29 [facility] ALBUMIN LEVEL 2022-04-14 [facility] [place] 19:04:29 [facility] ALKALINE PHOSPHATASE 2022-04-14 [facility] 19:04:29 [facility] ALANINE AMINOTRANSFERASE 2022-04-14 [facility] 19:04:29 [facility] ASPARTATE AMINOTRANSFERASE 2022-04-14 [facility] 19:04:29 [facility] TOTAL PROTEIN 2022-04-14 [facility] [place] 19:04:29 [facility] FRACTIONATED BILIRUBIN 2022-04-14 [facility] 19:04:29 [facility] FERRITIN LVL 2022-04-14 [facility] [place] 19:04:29 [facility] TRANSFERRIN 2022-04-14 [facility] [place] 19:04:29 [facility] IRON LEVEL 2022-04-14 [facility] [place] 19:04:[address] [facility] [address] CHEST ABDOMEN PELVIS W 2022-04-14 [facility] CONTRAST 18:40:00 [facility] IR NEPHROSTOMY EXCHANGE 60 2022-04-13 Carina Queen [facility] 20:31:06 [facility] BASIC METABOLIC PANEL, 2022-04-08 [facility] CALCIUM TOTAL 19:27:00 [facility] PROTHROMBIN TIME 2022-04-08 [facility] [place] 19:27:00 [facility] APTT 2022-04-08 [facility] xa 19:27:00 [facility] FIBRINOGEN ACTIVITY 2022-04-08 [facility] [place] 19:27:00 [facility] GLUCOSE LEVEL 2022-04-08 [facility] [place] 19:27:00 [facility] BLOOD UREA NITROGEN 2022-04-08 [facility] [place] 19:27:00 [facility] ELECTROLYTE PANEL 2022-04-08 [facility] 19:27:00 [facility] SERUM CREATININE 2022-04-08 [facility] [place] 19:27:00 [facility] .GLOMERULAR FILTRATION RATE 2022-04-08 [facility] 19:27:00 [facility] CALCIUM LEVEL TOTAL 2022-04-08 [facility] [place] 19:27:00 [facility] URINALYSIS WITH MICROSCOPIC 2022-04-07 Brandan Ventura [facility] IF INDICATED 00:31:00 [facility] URINALYSIS MICROSCOPIC EXAM 2022-04-07 Brandan Ventura [facility] 00:31:00 [facility] URINE CULTURE 2022-04-07 Brandan Ventura [facility] 00:31:00 [facility] US RENAL 2022-04-06 Brandan Ventura [facility] 23:19:47 [facility] URINE CULTURE 2022-04-06 Bridgett Das [facility] xa 22:56:00 [facility] URINALYSIS WITH MICROSCOPIC 2022-04-06 Bridgett Das [facility] IF INDICATED 22:31:00 [facility] URINALYSIS MICROSCOPIC EXAM 2022-04-06 Bridgett aDs [facility] 22:31:00 [facility] COMPLETE BLOOD COUNT W/ 2022-04-06 Brandan Ventura [facility] DIFFERENTIAL 21:18:00 [facility] COMPREHENSIVE METABOLIC PANEL 2022-04-06 Brandan Ventura [facility] 21:18:00 [facility] MAGNESIUM LEVEL 2022-04-06 Brandan Ventura [facility] 21:18:00 [facility] PHOSPHORUS LEVEL 2022-04-06 Brandan Ventura [facility] 21:18:00 [facility] PROTHROMBIN TIME 2022-04-06 Brandan Ventura [facility] 21:18:00 [facility] APTT 2022-04-06 Brandan Ventura [facility] 21:18:00 [facility] Results CBC 2022-04-06 Brandan Ventura [facility] 21:18:00 [facility] MANUAL DIFFERENTIAL 2022-04-06 Brandan Ventura [facility] 21:18:00 [facility] GLUCOSE LEVEL 2022-04-06 Brandan Ventura [facility] 21:18:00 [facility] BLOOD UREA NITROGEN 2022-04-06 Brandan Ventura [facility] 21:18:00 [facility] ELECTROLYTE PANEL 2022-04-06 Brandan Ventura [facility] 21:18:00 [facility] SERUM CREATININE 2022-04-06 Brandan Ventura [facility] 21:18:00 [facility] .GLOMERULAR FILTRATION RATE 2022-04-06 Brandan Ventura [facility] 21:18:00 [facility] CALCIUM LEVEL TOTAL 2022-04-06 Brandan Ventura [facility] 21:18:00 [facility] ALBUMIN LEVEL 2022-04-06 Brandan Ventura [facility] 21:18:00 [facility] ALKALINE PHOSPHATASE 2022-04-06 Brandan Ventura [facility] 21:18:00 [facility] ALANINE AMINOTRANSFERASE 2022-04-06 Brandan Ventura [facility] 21:18:00 [facility] ASPARTATE AMINOTRANSFERASE 2022-04-06 Brandan Ventura [facility] 21:18:00 [facility] TOTAL PROTEIN 2022-04-06 Brandan Ventura [facility] 21:18:00 [facility] FRACTIONATED BILIRUBIN 2022-04-06 Brandan Ventura [facility] 21:18:00 [facility] COVID-19 (SARS-COV-2) 2022-04-06 Brandan Ventura [facility] ASYMPTOMATIC-LT 21:18:00 [facility] NM GATED CARDIAC 2022-03-31 [facility] [place] 18:19:00 [facility] EKG, 12-LEAD (SCHEDULED) 2022-03-31 Joan Vaughn [facility] 00:00:00 [facility] IR NEPHROSTOMY EXCHANGE 60 2022-03-16 Taina Cunningham [facility] 17:45:00 [facility] IR NEPHROSTOMY UNILATERAL 2022-03-16 Esa Oneill [facility] PLACEMENT 75 17:45:00 [facility] AFB CULTURE W/ SMEAR 2022-03-16 [facility] 17:42:00 [facility] FUNGUS CULTURE W/ SMEAR 2022-03-16 [facility] 17:42:00 [facility] URINE CULTURE 2022-03-16 [facility] [place] 17:42:00 [facility] COVID-19 (SARS-COV-2) 2022-03-14 Roderick [facility] PCR-ASYMPTOMATIC MC 20:28:00 [facility] QIAC SERVICES 2022-03-12 [facility] [place] 15:31:[address] [facility] [address] CHEST ABDOMEN PELVIS W 2022-03-10 Rachana Martin [facility] CONTRAST 20:30:00 Lauren MATHEW [facility] URINALYSIS WITH MICROSCOPIC 2022-03-10 [facility] IF INDICATED 18:53:33 [facility] URINALYSIS MICROSCOPIC EXAM 2022-03-10 [facility] 18:53:33 [facility] COMPLETE BLOOD COUNT W/ 2022-03-10 [facility] DIFFERENTIAL 18:52:56 [facility] COMPREHENSIVE METABOLIC PANEL 2022-03-10 [facility] 18:52:56 [facility] MAGNESIUM LEVEL 2022-03-10 [facility] 18:52:56 [facility] PHOSPHORUS LEVEL 2022-03-10 [facility] 18:52:56 [facility] LACTATE DEHYDROGENASE 2022-03-10 [facility] 18:52:56 [facility] URIC ACID 2022-03-10 [facility] 18:52:56 [facility] PROTHROMBIN TIME 2022-03-10 [facility] 18:52:56 [facility] APTT 2022-03-10 [facility] 18:52:56 [facility] THYROID STIMULATING HORMONE 2022-03-10 [facility] 18:52:56 [facility] FREE T3 2022-03-10 [facility] 18:52:56 [facility] FREE THYROXINE 2022-03-10 [facility] 18:52:56 [facility] Results CBC 2022-03-10 [facility] 18:52:56 [facility] MANUAL DIFFERENTIAL 2022-03-10 [facility] 18:52:56 [facility] GLUCOSE LEVEL 2022-03-10 [facility] 18:52:56 [facility] BLOOD UREA NITROGEN 2022-03-10 [facility] 18:52:56 [facility] ELECTROLYTE PANEL 2022-03-10 [facility] 18:52:56 [facility] SERUM CREATININE 2022-03-10 [facility] 18:52:56 [facility] .GLOMERULAR FILTRATION RATE 2022-03-10 [facility] 18:52:56 [facility] CALCIUM LEVEL TOTAL 2022-03-10 [facility] 18:52:56 [facility] ALBUMIN LEVEL 2022-03-10 [facility] 18:52:56 [facility] ALKALINE PHOSPHATASE 2022-03-10 [facility] 18:52:56 [facility] ALANINE AMINOTRANSFERASE 2022-03-10 [facility] 18:52:56 [facility] ASPARTATE AMINOTRANSFERASE 2022-03-10 [facility] 18:52:56 [facility] TOTAL PROTEIN 2022-03-10 [facility] 18:52:56 [facility] FRACTIONATED BILIRUBIN 2022-03-10 [facility] 18:52:56 [facility] MRI CERVICAL THORACIC LUMBAR 2022-02-20 Esa Oneill [facility] SPINE W WO CONTRAST 20:34:01 [facility] COMPLETE BLOOD COUNT W/ 2022-02-10 [facility] DIFFERENTIAL 18:19:00 [facility] COMPREHENSIVE METABOLIC PANEL 2022-02-10 [facility] 18:19:00 [facility] MAGNESIUM LEVEL 2022-02-10 Roderick [facility] [place] 18:19:00 [facility] PHOSPHORUS LEVEL 2022-02-10 [facility] [place] 18:19:00 [facility] LACTATE DEHYDROGENASE 2022-02-10 [facility] 18:19:00 [facility] URIC ACID 2022-02-10 [facility] [place] 18:19:00 [facility] PROTHROMBIN TIME 2022-02-10 [facility] [place] 18:19:00 [facility] APTT 2022-02-10 [facility] [place] 18:19:00 [facility] THYROID STIMULATING HORMONE 2022-02-10 [facility] 18:19:00 [facility] FREE T3 2022-02-10 [facility] [place] 18:19:00 [facility] FREE THYROXINE 2022-02-10 [facility] [place] 18:19:00 [facility] URINALYSIS WITH MICROSCOPIC 2022-02-10 [facility] IF INDICATED 18:19:00 [facility] Results CBC 2022-02-10 [facility] [place] 18:19:00 [facility] MANUAL DIFFERENTIAL 2022-02-10 [facility] [place] 18[facility]19:00 [facility] GLUCOSE LEVEL 2022-02-10 [facility] [place] 18:19:00 [facility] BLOOD UREA NITROGEN 2022-02-10 [facility] [place] 18:19:00 [facility] ELECTROLYTE PANEL 2022-02-10 [facility] 18:19:00 [facility] SERUM CREATININE 2022-02-10 [facility] [place] 18:19:00 [facility] .GLOMERULAR FILTRATION RATE 2022-02-10 [facility] 18:19:00 [facility] CALCIUM LEVEL TOTAL 2022-02-10 [facility] [place] 18:19:00 [facility] ALBUMIN LEVEL 2022-02-10 [facility] [place] 18:19:00 [facility] ALKALINE PHOSPHATASE 2022-02-10 [facility] 18:19:00 [facility] ALANINE AMINOTRANSFERASE 2022-02-10 [facility] 18:19:00 [facility] ASPARTATE AMINOTRANSFERASE 2022-02-10 [facility] 18:19:00 [facility] TOTAL PROTEIN 2022-02-10 [facility] xa 18:19:00 [facility] FRACTIONATED BILIRUBIN 2022-02-10 [facility] 18:19:00 [facility] URINALYSIS MICROSCOPIC 2022-02-10 [facility] 18:19:00 [facility] URINALYSIS WITH MICROSCOPIC 2022-02-04 [facility] IF INDICATED 20:53:00 [facility] URINALYSIS MICROSCOPIC 2022-02-04 [facility] 20:53:00 [facility] URINE CULTURE 2022-02-04 [facility] [place] 20:53:00 [facility] NM BONE SCAN WHOLE BODY 2022-01-23 [facility] 20:59:00 [facility] XR HIP 2 VW BILATERAL W 2022-01-23 [facility] PELVIS 18:44:11 [facility] QIAC SERVICES 2022-01-13 [facility] [place] 20:02:[address] [facility] [address] CHEST ABDOMEN PELVIS W 2022-01-09 [facility] 18:56:00 [facility] URINALYSIS WITH MICROSCOPIC 2022-01-09 [facility] IF INDICATED 16:25:06 [facility] URINALYSIS MICROSCOPIC 2022-01-09 [facility] 16:25:06 [facility] CALCIUM LEVEL TOTAL 2022-01-09 [facility], [facility] 16:20:00 [facility] PHOSPHORUS LEVEL 2022-01-09 [facility], [facility] [place]as 16:20:00 [facility] SERUM CREATININE 2022-01-09 [facility], [facility] [place] 16:20:00 [facility] COMPLETE BLOOD COUNT W/ 2022-01-09 [facility] DI[facility] 16:20:00 [facility] COMPREHENSIVE METABOLIC PANEL 2022-01-09 [facility] 16:20:00 [facility] MAGNESIUM LEVEL 2022-01-09 [facility] [place] 16:20:00 [facility] LACTATE DEHYDROGENASE 2022-01-09 [facility] 16:20:00 [facility] URIC ACID 2022-01-09 [facility] [place] 16:20:00 [facility] PROTHROMBIN TIME 2022-01-09 [facility] [place] 16:20:00 [facility] APTT 2022-01-09 [facility] [place] 16:20:00 [facility] THYROID STIMULATING HORMONE 2022-01-09 [facility] 16:20:00 [facility] FREE T3 2022-01-09 [facility] [place] 16:20:00 [facility] FREE THYROXINE 2022-01-09 [facility] [place] 16:20:00 [facility] SERUM CREATININE 2022-01-09 [facility], [facility] [place] 16:20:00 [facility] .GLOMERULAR FILTRATION RATE 2022-01-09 [facility], [facility] 16:20:00 [facility] GLUCOSE LEVEL 2022-01-09 [facility] [place] 16:20:00 [facility] BLOOD UREA NITROGEN 2022-01-09 [facility] 16:20:00 [facility] ELECTROLYTE PANEL 2022-01-09 [facility] 16:20:00 [facility] ALBUMIN LEVEL 2022-01-09 [facility] [place] 16:20:00 [facility] ALKALINE PHOSPHATASE 2022-01-09 [facility] 16:20:00 [facility] ALANINE AMINOTRANSFERASE 2022-01-09 [facility] 16:20:00 [facility] ASPARTATE AMINOTRANSFERASE 2022-01-09 [facility] 16:20:00 [facility] TOTAL PROTEIN 2022-01-09 [facility] 16:20:00 [facility] FRACTIONATED BILIRUBIN 2022-01-09 [facility] 16:20:00 [facility] Results CBC 2022-01-09 [facility] xa 16:20:00 [facility] MANUAL DIFFERENTIAL 2022-01-09 [facility] 16:20:00 [facility] COMPREHENSIVE METABOLIC PANEL 2021-12-30 [facility], [facility] 17:14:00 [facility] GLUCOSE LEVEL 2021-12-30 [facility], [facility] xa 17:14:00 [facility] BLOOD UREA NITROGEN 2021-12-30 [facility], [facility] 17:14:00 [facility] ELECTROLYTE PANEL 2021-12-30 [facility], [facility] 17:14:00 [facility] SERUM CREATININE 2021-12-30 [facility], [facility] ex 17:14:00 [facility] .GLOMERULAR FILTRATION RATE 2021-12-30 [facility] 17:14:00 [facility] CALCIUM LEVEL TOTAL 2021-12-30 [facility], [facility] 17:14:00 [facility] ALBUMIN LEVEL 2021-12-30 [facility] [place] 17:14:00 [facility] ALKALINE PHOSPHATASE 2021-12-30 [facility], [facility] 17:14:00 [facility] ALANINE AMINOTRANSFERASE 2021-12-30 [facility], [facility] 17:14:00 [facility] ASPARTATE AMINOTRANSFERASE 2021-12-30 [facility], [facility] 17:14:00 [facility] TOTAL PROTEIN 2021-12-30 [facility], [facility] [place] 17:14:00 [facility] FRACTIONATED BILIRUBIN 2021-12-30 [facility], [facility] 17:14:00 [facility] AP IHC PD-L1 MATERIAL REQUEST 2021-12-25 Joan Vaughn [facility] 00:15:55 [facility] POTASSIUM LEVEL 2021-12-16 [facility], [facility] [place] 20:48:00 [facility] COMPLETE BLOOD COUNT W/ 2021-12-16 [facility] DIFFERENTIAL 14:39:00 [facility] COMPREHENSIVE METABOLIC PANEL 2021-12-16 Joan Vaughn [facility] 14:39:00 [facility] MAGNESIUM LEVEL 2021-12-16 [facility] 14:39:00 [facility] PHOSPHORUS LEVEL 2021-12-16 [facility] [place] 14:39:00 [facility] LACTATE DEHYDROGENASE 2021-12-16 [facility] 14:39[facility]00 [facility] URIC ACID 2021-12-16 [facility] [place] 14:39:00 [facility] PROTHROMBIN TIME 2021-12-16 [facility] 14:39:00 [facility] APTT 2021-12-16 [facility] [place] 14:39:00 [facility] THYROID STIMULATING HORMONE 2021-12-16 [facility] 14:39:00 [facility] FREE T3 2021-12-16 [facility] 14:39:00 [facility] FREE THYROXINE 2021-12-16 [facility] 14:39:00 [facility] URINALYSIS WITH MICROSCOPIC 2021-12-16 [facility] IF INDICATED 14:39:00 [facility] Results CBC 2021-12-16 [facility] [place] 14:39:00 [facility] MANUAL DIFFERENTIAL 2021-12-16 [facility] 14:39:00 [facility] GLUCOSE LEVEL 2021-12-16 [facility] [place] 14:39:00 [facility] BLOOD UREA NITROGEN 2021-12-16 [facility] 14:39:00 [facility] ELECTROLYTE PANEL 2021-12-16 [facility] 14:39:00 [facility] SERUM CREATININE 2021-12-16 [facility] 14:39:00 [facility] .GLOMERULAR FILTRATION RATE 2021-12-16 [facility] 14:39:00 [facility] CALCIUM LEVEL TOTAL 2021-12-16 [facility] 14:39:00 [facility] ALBUMIN LEVEL 2021-12-16 [facility] [place] 14:39:00 [facility] ALKALINE PHOSPHATASE 2021-12-16 [facility] 14:39:00 [facility] ALANINE AMINOTRANSFERASE 2021-12-16 [facility] 14:39:00 [facility] ASPARTATE AMINOTRANSFERASE 2021-12-16 [facility] 14:39:00 [facility] TOTAL PROTEIN 2021-12-16 [facility] [place] 14:39:00 [facility] FRACTIONATED BILIRUBIN 2021-12-16 [facility] 14:39:00 [facility] URINALYSIS MICROSCOPIC 2021-12-16 [facility] 14:39:00 [facility] IR NEPHROSTOMY EXCHANGE 60 2021-12-15 Lucille Cunningham [facility] 16:30:20 [facility] QIAC SERVICES 2021-11-27 [facility] [place] 13:40:[address] [facility] [address] CHEST ABDOMEN PELVIS W 2021-11-18 [facility] CONTRAST 16:03:12 [facility] COMPLETE BLOOD COUNT W/ 2021-11-18 [facility] DIFFER[facility] 14:33:00 [facility] COMPREHENSIVE METABOLIC PANEL 2021-11-18 [facility] 14:33:00 [facility] MAGNESIUM LEVEL 2021-11-18 [facility] [place] 14:33:00 [facility] PHOSPHORUS LEVEL 2021-11-18 [facility] exas 14:33:00 [facility] LACTATE DEHYDROGENASE 2021-11-18 [facility] 14:33:00 [facility] URIC ACID 2021-11-18 [facility] [place] 14:33:00 [facility] PROTHROMBIN TIME 2021-11-18 [facility] [facility] [place] 14:33:00 [facility] APTT 2021-11-18 [facility] [place] 14:33:00 [facility] THYROID STIMULATING HORMONE 2021-11-18 [facility] 14:33:00 [facility] FREE T3 2021-11-18 [facility] [place] 14:33:00 [facility] FREE THYROXINE 2021-11-18 [facility] [place] 14:33:00 [facility] URINALYSIS WITH MICROSCOPIC 2021-11-18 [facility] IF INDICATED 14:33:00 [facility] Results CBC 2021-11-18 [facility] [place] 14:33:00 [facility] MANUAL DIFFERENTIAL 2021-11-18 [facility] 14:33:00 [facility] GLUCOSE LEVEL 2021-11-18 [facility] [place] 14:33:00 [facility] BLOOD UREA NITROGEN 2021-11-18 [facility] 14:33:00 [facility] ELECTROLYTE PANEL 2021-11-18 [facility] 14:33:00 [facility] SERUM CREATININE 2021-11-18 [facility] [place] 14:33:00 [facility] .GLOMERULAR FILTRATION RATE 2021-11-18 [facility] 14:33:00 [facility] CALCIUM LEVEL TOTAL 2021-11-18 [facility] 14:33:00 [facility] ALBUMIN LEVEL 2021-11-18 [facility] [place] 14:33:00 [facility] ALKALINE PHOSPHATASE 2021-11-18 [facility] 14:33:00 [facility] ALANINE AMINOTRANSFERASE 2021-11-18 [facility] 14:33:00 [facility] ASPARTATE AMINOTRANSFERASE 2021-11-18 [facility] 14:33:00 [facility] TOTAL PROTEIN 2021-11-18 [facility] [place] 14:33:00 [facility] FRACTIONATED BILIRUBIN 2021-11-18 [facility] 14:33:00 [facility] URINALYSIS MICROSCOPIC 2021-11-18 [facility] 14:33:00 [facility] NM BONE SCAN WHOLE BODY 2021-11-17 [facility] 18:39:00 [facility] IR CT GUIDED BIOPSY PELVIC 2021-11-04 Ingris April [facility] NON-BONE 60 16:10:00 M [facility] ALANINE AMINOTRANSFERASE 2021-10-21 Roderick [facility] 13:00:00 [facility] ASPARTATE AMINOTRANSFERASE 2021-10-21 Roderick [facility] 13:00:00 [facility] TOTAL PROTEIN 2021-10-21 [facility] [place] 13:00:00 [facility] FRACTIONATED BILIRUBIN 2021-10-21 [facility] 13:00:00 [facility] URINALYSIS MICROSCOPIC 2021-10-21 [facility] 13:00:00 [facility] COMPLETE BLOOD COUNT W/ 2021-10-21 [facility] 13:00:00 [facility] COMPREHENSIVE METABOLIC PANEL 2021-10-21 Roderick Joan [facility] 13:00:00 [facility] MAGNESIUM LEVEL 2021-10-21 [facility] [place] 13:00:00 [facility] PHOSPHORUS LEVEL 2021-10-21 [facility] [place] 13:00:00 [facility] LACTATE DEHYDROGENASE 2021-10-21 [facility] 13:00:00 [facility] URIC ACID 2021-10-21 [facility] [place] 13:00:00 [facility] PROTHROMBIN TIME 2021-10-21 [facility] [place] 13:00:00 [facility] APTT 2021-10-21 [facility] [place] 13:00:00 [facility] THYROID STIMULATING HORMONE 2021-10-21 Roderick [facility] 13:00:00 [facility] FREE T3 2021-10-21 Roderick [facility] [place] 13:00:00 [facility] FREE THYROXINE 2021-10-21 [facility] [place] 13:00:00 [facility] URINALYSIS WITH MICROSCOPIC 2021-10-21 Roderick [facility] IF INDICATED 13:00:00 [facility] Results CBC 2021-10-21 Roderick [facility] [place] 13:00:00 [facility] MANUAL DIFFERENTIAL 2021-10-21 [facility] 13:00:00 [facility] GLUCOSE LEVEL 2021-10-21 [facility] [place] 13:00:00 [facility] BLOOD UREA NITROGEN 2021-10-21 [facility] 13:00:00 [facility] ELECTROLYTE PANEL 2021-10-21 [facility] 13:00:00 [facility] SERUM CREATININE 2021-10-21 [facility] ex 13:00:00 [facility] .GLOMERULAR FILTRATION RATE 2021-10-21 [facility] 13:00:00 [facility] CALCIUM LEVEL TOTAL 2021-10-21 [facility] 13:00:00 [facility] ALBUMIN LEVEL 2021-10-21 [facility] [place] 13:00:00 [facility] ALKALINE PHOSPHATASE 2021-10-21 [facility] 13:00:00 [facility] COMPLETE BLOOD COUNT W/ 2021-10-14 Roderick [facility] DIFFERENTIAL 18:23:00 [facility] COMPREHENSIVE METABOLIC PANEL 2021-10-14 Roderick Joan [facility] 18:23:00 [facility] MAGNESIUM LEVEL 2021-10-14 [facility] [place] 18:23:00 [facility] PHOSPHORUS LEVEL 2021-10-14 [facility] [place] 18:23:00 [facility] LACTATE DEHYDROGENASE 2021-10-14 [facility] 18:23:00 [facility] URIC ACID 2021-10-14 [facility]Washington [facility] [place] 18:23:00 [facility] PROTHROMBIN TIME 2021-10-14 [facility] [place] 18:23:00 [facility] APTT 2021-10-14 [facility] [place] 18:23:00 [facility] THYROID STIMULATING HORMONE 2021-10-14 [facility] 18:23:00 [facility] FREE T3 2021-10-14 [facility] [place] 18:23:00 [facility] FREE THYROXINE 2021-10-14 [facility] [place] 18:23:00 [facility] URINALYSIS WITH MICROSCOPIC 2021-10-14 [facility] IF INDICATED 18:23:00 [facility] Results CBC 2021-10-14 [facility] [place] 18:23:00 [facility] MANUAL DIFFERENTIAL 2021-10-14 [facility] 18:23:00 [facility] GLUCOSE LEVEL 2021-10-14 [facility] [place] 18:23:00 [facility] BLOOD UREA NITROGEN 2021-10-14 [facility] 18:23:00 [facility] ELECTROLYTE PANEL 2021-10-14 [facility] 18:23:00 [facility] SERUM CREATININE 2021-10-14 [facility] [place] 18:23:00 [facility] .GLOMERULAR FILTRATION RATE 2021-10-14 [facility] 18:23:00 [facility] CALCIUM LEVEL TOTAL 2021-10-14 [facility] 18:23:00 [facility] ALBUMIN LEVEL 2021-10-14 [facility] [place] 18:23:00 [facility] ALKALINE PHOSPHATASE 2021-10-14 [facility] 18:23:00 [facility] ALANINE AMINOTRANSFERASE 2021-10-14 [facility] 18:23:00 [facility] ASPARTATE AMINOTRANSFERASE 2021-10-14 [facility] 18:23:00 [facility] TOTAL PROTEIN 2021-10-14 [facility] [place] 18:23:00 [facility] FRACTIONATED BILIRUBIN 2021-10-14 [facility] 18:23:00 [facility] URINALYSIS MICROSCOPIC 2021-10-14 [facility] 18:23:00 [facility] COMPLETE BLOOD COUNT W/ 2021-10-08 [facility] DIFFERENTIAL 14:25:00 [facility] COMPREHENSIVE METABOLIC PANEL 2021-10-08 [facility] 14:25:00 [facility] MAGNESIUM LEVEL 2021-10-08 [facility] [place] 14:25:00 [facility] PHOSPHORUS LEVEL 2021-10-08 [facility] [place] 14:25:00 [facility] LACTATE DEHYDROGENASE 2021-10-08 [facility] 14:25:00 [facility] URIC ACID 2021-10-08 [facility] [place] 14:25:00 [facility] PROTHROMBIN TIME 2021-10-08 [facility] [place] 14:25:00 [facility] APTT 2021-10-08 [facility] [place] 14:25:00 [facility] THYROID STIMULATING HORMONE 2021-10-08 [facility] 14:25:00 [facility] FREE T3 2021-10-08 [facility] [place] 14:25:00 [facility] FREE THYROXINE 2021-10-08 [facility] [place] 14:25:00 [facility] URINALYSIS WITH MICROSCOPIC 2021-10-08 Roderick [facility] IF INDICATED 14:25:00 [facility] Results CBC 2021-10-08 [facility] [place] 14:25:00 [facility] MANUAL DIFFERENTIAL 2021-10-08 [facility] 14:25:00 [facility] GLUCOSE LEVEL 2021-10-08 [facility] [place] 14:25:00 [facility] BLOOD UREA NITROGEN 2021-10-08 [facility] 14:25:00 [facility] ELECTROLYTE PANEL 2021-10-08 [facility] 14:25:00 [facility] SERUM CREATININE 2021-10-08 [facility] [place] 14:25:00 [facility] .GLOMERULAR FILTRATION RATE 2021-10-08 [facility] 14:25:00 [facility] CALCIUM LEVEL TOTAL 2021-10-08 [facility] 14:25:00 [facility] ALBUMIN LEVEL 2021-10-08 [facility] [place] 14:25:00 [facility] ALKALINE PHOSPHATASE 2021-10-08 [facility] 14:25:00 [facility] ALANINE AMINOTRANSFERASE 2021-10-08 [facility] 14:25:00 [facility] ASPARTATE AMINOTRANSFERASE 2021-10-08 [facility] 14:25:00 [facility] TOTAL PROTEIN 2021-10-08 [facility] [place] 14:25:00 [facility] FRACTIONATED BILIRUBIN 2021-10-08 [facility] 14:25:00 [facility] URINALYSIS MICROSCOPIC 2021-10-08 Joan Vaughn [facility] 14:25:00 [facility] COMPLETE BLOOD COUNT W/ 2021-09-30 Roderick [facility] DIFFERENTIAL 14:43:00 [facility] COMPREHENSIVE METABOLIC PANEL 2021-09-30 Joan Vaughn [facility] 14:43:00 [facility] Center MAGNESIUM LEVEL 2021-09-30 [facility] [place] 14:43:00 [facility] Center PHOSPHORUS LEVEL 2021-09-30 [facility] [place] 14:43:00 [facility] LACTATE DEHYDROGENASE 2021-09-30 [facility] 14:43:00 [facility] URIC ACID 2021-09-30 [facility] [place] 14:43:00 [facility] PROTHROMBIN TIME 2021-09-30 [facility] [place] 14:43:00 [facility] APTT 2021-09-30 [facility] [place] 14:43:00 [facility] THYROID STIMULATING HORMONE 2021-09-30 [facility] 14:43:00 [facility] Center FREE T3 2021-09-30 [facility] [place] 14:43:00 [facility] FREE THYROXINE 2021-09-30 [facility] [place] 14:43:00 [facility] URINALYSIS WITH MICROSCOPIC 2021-09-30 [facility] IF INDICATED 14:43:00 [facility] Results CBC 2021-09-30 [facility] [place] 14:43:00 [facility] MANUAL DIFFERENTIAL 2021-09-30 Roderick [facility] 14:43:00 [facility] GLUCOSE LEVEL 2021-09-30 [facility] [place] 14:43:00 [facility] BLOOD UREA NITROGEN 2021-09-30 [facility] 14:43:00 [facility] ELECTROLYTE PANEL 2021-09-30 [facility] 14:43:00 [facility] SERUM CREATININE 2021-09-30 [facility] [place] 14:43:00 [facility] .GLOMERULAR FILTRATION RATE 2021-09-30 [facility] 14:43:00 [facility] CALCIUM LEVEL TOTAL 2021-09-30 [facility] 14:43:00 [facility] ALBUMIN LEVEL 2021-09-30 [facility] [place] 14:43:00 [facility] ALKALINE PHOSPHATASE 2021-09-30 [facility] 14:43:00 [facility] ALANINE AMINOTRANSFERASE 2021-09-30 [facility] 14:43:00 [facility] ASPARTATE AMINOTRANSFERASE 2021-09-30 [facility] 14:43:00 [facility] TOTAL PROTEIN 2021-09-30 [facility] [place] 14:43:00 [facility] FRACTIONATED BILIRUBIN 2021-09-30 [facility] 14:43:00 [facility] URINALYSIS MICROSCOPIC 2021-09-30 [facility] 14:43:00 [facility] QIAC SERVICES 2021-09-23 [facility] [place] 15:11:22 [facility] IR CT GUIDED BIOPSY LYMPH 2021-09-19 [facility], [facility] NODE 60 21:09:00 [facility] URINALYSIS WITH MICROSCOPIC 2021-09-19 [facility], [facility] IF INDICATED 18:21:00 [facility] URINALYSIS MICROSCOPIC 2021-09-19 [facility], [facility] 18:21:00 [facility] COMPLETE BLOOD COUNT W/ 2021-09-19 [facility], [facility] DIFFERENTIAL 18:18:00 [facility] APTT 2021-09-19 [facility], [facility] [place] 18:18:00 [facility] PROTHROMBIN TIME 2021-09-19 [facility], [facility] [place] 18:18:00 [facility] THYROID STIMULATING HORMONE 2021-09-19 [facility], [facility] 18:18:00 [facility] FREE T3 2021-09-19 [facility] [place] 18:18:00 [facility] FREE THYROXINE 2021-09-19 [facility] [place] 18:18:00 [facility] COMPREHENSIVE METABOLIC PANEL 2021-09-19 [facility], [facility] 18:18:00 [facility] MAGNESIUM LEVEL 2021-09-19 [facility], [facility] xa 18:18:00 [facility] PHOSPHORUS LEVEL 2021-09-19 [facility], [facility] ex 18:18:00 [facility] LACTATE DEHYDROGENASE 2021-09-19 [facility], [facility] 18:18:00 [facility] URIC ACID 2021-09-19 [facility], [facility] xa 18:18:00 [facility] Results CBC 2021-09-19 [facility], [facility] [place] 18:18:00 [facility] MANUAL DIFFERENTIAL 2021-09-19 [facility], [facility] 18:18:00 [facility] GLUCOSE LEVEL 2021-09-19 [facility], [facility] [place] 18:18:00 [facility] BLOOD UREA NITROGEN 2021-09-19 [facility], [facility] 18:18:00 [facility] ELECTROLYTE PANEL 2021-09-19 [facility], [facility] 18:18:00 [facility] SERUM CREATININE 2021-09-19 [facility], [facility] ex 18:18:00 [facility] .GLOMERULAR FILTRATION RATE 2021-09-19 [facility], [facility] 18:18:00 [facility] CALCIUM LEVEL TOTAL 2021-09-19 [facility], [facility] [place] 18:18:00 [facility] ALBUMIN LEVEL 2021-09-19 [facility], [facility] [place] 18:18:00 [facility] ALKALINE PHOSPHATASE 2021-09-19 [facility], [facility] 18:18:00 [facility] ALANINE AMINOTRANSFERASE 2021-09-19 [facility], [facility] 18:18:00 [facility] ASPARTATE AMINOTRANSFERASE 2021-09-19 [facility], [facility] 18:18:00 [facility] TOTAL PROTEIN 2021-09-19 [facility], [facility] xa 18:18:00 [facility] FRACTIONATED BILIRUBIN 2021-09-19 [facility], [facility] 18:18:00 [facility] EKG, 12-LEAD (SCHEDULED) 2021-09-19 [facility], [facility] 00:00:00 [facility] IR NEPHROSTOMY EXCHANGE 60 2021-09-15 Zeus Locke [facility] 17:01:22 [facility] QIAC SERVICES 2021-09-12 [facility], [facility] xa 12:17:[address] [facility] [address] CHEST ABDOMEN PELVIS W 2021-09-11 [facility], [facility] CONTRAST 00:38:45 [facility] COMPREHENSIVE METABOLIC PANEL 2021-09-10 [facility], [facility] 18:52:00 [facility] MAGNESIUM LEVEL 2021-09-10 [facility], [facility] [place] 18:52:00 [facility] PHOSPHORUS LEVEL 2021-09-10 [facility], [facility] exas 18:52:00 [facility] LACTATE DEHYDROGENASE 2021-09-10 [facility], [facility] 18:52:00 [facility] URIC ACID 2021-09-10 [facility], [facility] [place] 18:52:00 [facility] COMPLETE BLOOD COUNT W/ 2021-09-10 [facility], [facility] DIFFERENTIAL 18:52:00 [facility] APTT 2021-09-10 [facility], [facility] [place] 18:52:00 [facility] PROTHROMBIN TIME 2021-09-10 [facility], [facility] [place] 18:52:00 [facility] URINALYSIS WITH MICROSCOPIC 2021-09-10 [facility], [facility] IF INDICATED 18:52:00 [facility] THYROID STIMULATING HORMONE 2021-09-10 [facility], [facility] 18:52:00 [facility] FREE T3 2021-09-10 [facility], [facility] [place] 18:52:00 [facility] FREE THYROXINE 2021-09-10 [facility], [facility] [place] 18:52:00 [facility] HEPATITIS B SURFACE ANTIGEN, 2021-09-10 [facility], [facility] SERUM 18:52:00 [facility] HEPATITIS C VIRUS ANTIBODY 2021-09-10 [facility], [facility] 18:52:00 [facility] GLUCOSE LEVEL 2021-09-10 [facility], [facility] [place] 18:52:00 [facility] BLOOD UREA NITROGEN 2021-09-10 [facility], [facility] 18:52:00 [facility] ELECTROLYTE PANEL 2021-09-10 [facility], [facility] 18:52:00 [facility] SERUM CREATININE 2021-09-10 [facility], [facility] [place]as 18:52:00 [facility] .GLOMERULAR FILTRATION RATE 2021-09-10 [facility], [facility] 18:52:00 [facility] CALCIUM LEVEL TOTAL 2021-09-10 [facility], [facility] 18:52:00 [facility] ALBUMIN LEVEL 2021-09-10 [facility], [facility] xa 18:52:00 [facility] ALKALINE PHOSPHATASE 2021-09-10 [facility], [facility] 18:52:00 [facility] ALANINE AMINOTRANSFERASE 2021-09-10 [facility], [facility] 18:52:00 [facility] ASPARTATE AMINOTRANSFERASE 2021-09-10 [facility], [facility] 18:52:00 [facility] TOTAL PROTEIN 2021-09-10 [facility], [facility] xa 18:52:00 [facility] FRACTIONATED BILIRUBIN 2021-09-10 [facility], [facility] 18:52:00 [facility] Results CBC 2021-09-10 [facility], [facility] xa 18:52:00 [facility] MANUAL DIFFERENTIAL 2021-09-10 [facility], [facility] [place] 18:52:00 [facility] URINALYSIS MICROSCOPIC 2021-09-10 [facility], [facility] 18:52:00 [facility] EKG, 12-LEAD (SCHEDULED) 2021-09-10 [facility], [facility] 00:00:00 [facility] NM BONE SCAN WHOLE BODY 2021-08-19 [facility], [facility] 19:26:00 [facility] URINALYSIS WITH MICROSCOPIC 2021-08-19 [facility], [facility] IF INDICATED 16:08:00 [facility] PROTEIN / CREATININE RATIO 2021-08-19 [facility], [facility] URINE 16:08:00 [facility] URINALYSIS MICROSCOPIC 2021-08-19 [facility], [facility] 16:08:00 [facility] PHOSPHORUS LEVEL 2021-08-19 [facility], [facility] exas 16:04:00 [facility] THYROID STIMULATING HORMONE 2021-08-19 [facility], [facility] 16:04:00 [facility] FREE THYROXINE 2021-08-19 [facility], [facility] [place] 16:04:00 [facility] AMYLASE LEVEL 2021-08-19 [facility] [place] 16:04:00 [facility] LIPASE LEVEL 2021-08-19 [facility], [facility] [place] 16:04:00 [facility] COMPLETE BLOOD COUNT W/ 2021-08-19 [facility] [facility] DIFFERENTIAL 16:04:00 [facility] MAGNESIUM LEVEL 2021-08-19 [facility], [facility] xas 16:04:00 [facility] COMPREHENSIVE METABOLIC PANEL 2021-08-19 [facility], [facility] 16:04:00 [facility] GLUCOSE LEVEL 2021-08-19 [facility], [facility] xa 16:04:00 [facility] BLOOD UREA NITROGEN 2021-08-19 [facility], [facility] 16:04:00 [facility] ELECTROLYTE PANEL 2021-08-19 [facility], [facility] 16:04:00 [facility] SERUM CREATININE 2021-08-19 [facility], [facility] exas 16:04:00 [facility] .GLOMERULAR FILTRATION RATE 2021-08-19 [facility], [facility] 16:04:00 [facility] CALCIUM LEVEL TOTAL 2021-08-19 [facility], [facility] 16:04:00 [facility] ALBUMIN LEVEL 2021-08-19 [facility], [facility] xa 16:04:00 [facility] ALKALINE PHOSPHATASE 2021-08-19 [facility], [facility] 16:04:00 [facility] ALANINE AMINOTRANSFERASE 2021-08-19 [facility], [facility] 16:04:00 [facility] ASPARTATE AMINOTRANSFERASE 2021-08-19 [facility], [facility] 16:04:00 [facility] TOTAL PROTEIN 2021-08-19 [facility], [facility] xa 16:04:00 [facility] FRACTIONATED BILIRUBIN 2021-08-19 [facility], [facility] 16:04:00 [facility] Results CBC 2021-08-19 [facility], [facility] 16:04:00 [facility] MANUAL DIFFERENTIAL 2021-08-19 [facility], [facility] 16:04:[address] [facility] [address] CHEST ABDOMEN PELVIS W 2021-08-19 [facility], [facility] CONTRAST 15:03:59 [facility] POC CREATININE 2021-08-19 [facility], [facility] 14:02:00 [facility] THYROID STIMULATING HORMONE 2021-08-05 [facility], [facility] 15:52:00 [facility] FREE THYROXINE 2021-08-05 [facility], [facility] 15:52:00 [facility] AMYLASE LEVEL 2021-08-05 [facility], [facility] xa 15:52:00 [facility] LIPASE LEVEL 2021-08-05 [facility], [facility] xa 15:52:00 [facility] COMPLETE BLOOD COUNT W/ 2021-08-05 [facility], [facility] DIFFERENTIAL 15:52:00 [facility] MAGNESIUM LEVEL 2021-08-05 [facility], [facility] 15:52:00 [facility] COMPREHENSIVE METABOLIC PANEL 2021-08-05 [facility], [facility] 15:52:00 [facility] HEMOGLOBIN A1C 2021-08-05 [facility], [facility] 15:52:00 [facility] GLUCOSE LEVEL 2021-08-05 [facility], [facility] 15:52:00 [facility] BLOOD UREA NITROGEN 2021-08-05 [facility], [facility] 15:52:00 [facility] ELECTROLYTE PANEL 2021-08-05 [facility], [facility] 15:52:00 [facility] SERUM CREATININE 2021-08-05 [facility], [facility] exas 15:52:00 [facility] .GLOMERULAR FILTRATION RATE 2021-08-05 [facility], [facility] 15:52:00 [facility] CALCIUM LEVEL TOTAL 2021-08-05 [facility], [facility] 15:52:00 [facility] ALBUMIN LEVEL 2021-08-05 [facility], [facility] 15:52:00 [facility] ALKALINE PHOSPHATASE 2021-08-05 [facility], [facility] 15:52:00 [facility] ALANINE AMINOTRANSFERASE 2021-08-05 [facility], [facility] 15:52:00 [facility] ASPARTATE AMINOTRANSFERASE 2021-08-05 [facility], [facility] 15:52:00 [facility] TOTAL PROTEIN 2021-08-05 [facility], [facility] 15:52:00 [facility] Results CBC 2021-08-05 [facility], [facility] 15:52:00 [facility] FRACTIONATED BILIRUBIN 2021-08-05 [facility], [facility] 15:52:00 [facility] MANUAL DIFFERENTIAL 2021-08-05 [facility], [facility] 15:52:00 [facility] THYROID STIMULATING HORMONE 2021-07-22 [facility], [facility] 14:42:00 [facility] FREE THYROXINE 2021-07-22 [facility], [facility] 14:42:00 [facility] AMYLASE LEVEL 2021-07-22 [facility], [facility] 14:42:00 [facility] LIPASE LEVEL 2021-07-22 [facility], [facility] 14:42:00 [facility] MAGNESIUM LEVEL 2021-07-22 [facility], [facility] 14:42:00 [facility] COMPREHENSIVE METABOLIC PANEL 2021-07-22 [facility], [facility] 14:42:00 [facility] GLUCOSE LEVEL 2021-07-22 [facility], [facility] 14:42:00 [facility] BLOOD UREA NITROGEN 2021-07-22 [facility], [facility] 14:42:00 [facility] ELECTROLYTE PANEL 2021-07-22 [facility], [facility] 14:42:00 [facility] SERUM CREATININE 2021-07-22 [facility], [facility] exas 14:42:00 [facility] .GLOMERULAR FILTRATION RATE 2021-07-22 [facility], [facility] 14:42:00 [facility] CALCIUM LEVEL TOTAL 2021-07-22 [facility], [facility] 14:42:00 [facility] ALBUMIN LEVEL 2021-07-22 [facility], [facility] 14:42:00 [facility] ALKALINE PHOSPHATASE 2021-07-22 [facility], [facility] 14:42:00 [facility] ALANINE AMINOTRANSFERASE 2021-07-22 [facility], [facility] 14:42:00 [facility] ASPARTATE AMINOTRANSFERASE 2021-07-22 [facility], [facility] 14:42:00 [facility] TOTAL PROTEIN 2021-07-22 [facility], [facility] 14:42:00 [facility] FRACTIONATED BILIRUBIN 2021-07-22 [facility], [facility] 14:42:00 [facility] COMPLETE BLOOD COUNT W/ 2021-07-22 [facility], [facility] DIFFERENTIAL 14:39:00 [facility] Results CBC 2021-07-22 [facility], [facility] 14:39:00 [facility] MANUAL DIFFERENTIAL 2021-07-22 [facility], [facility] 14:39:00 [facility] PHOSPHORUS LEVEL 2021-07-08 Ale Ribeiro [facility] 14:56:00 [facility] THYROID STIMULATING HORMONE 2021-07-08 [facility], [facility] 14:56:00 [facility] FREE THYROXINE 2021-07-08 [facility], [facility] 14:56:00 [facility] AMYLASE LEVEL 2021-07-08 [facility], [facility] 14:56:00 [facility] LIPASE LEVEL 2021-07-08 [facility], [facility] x[facility] 14:56:00 [facility] COMPLETE BLOOD COUNT W/ 2021-07-08 [facility], [facility] DIFFERENTIAL 14:56:00 [facility] MAGNESIUM LEVEL 2021-07-08 [facility], [facility] xa 14:56:00 [facility] COMPREHENSIVE METABOLIC PANEL 2021-07-08 [facility] 14:56:00 [facility] GLUCOSE LEVEL 2021-07-08 [facility] 14:56:00 [facility] BLOOD UREA NITROGEN 2021-07-08 [facility], [facility] 14:56:00 [facility] ELECTROLYTE PANEL 2021-07-08 [facility], [facility] 14:56:00 [facility] SERUM CREATININE 2021-07-08 [facility], [facility] 14:56:00 [facility] .GLOMERULAR FILTRATION RATE 2021-07-08 [facility], [facility] 14:56:00 [facility] CALCIUM LEVEL TOTAL 2021-07-08 [facility], [facility] 14:56:00 [facility] ALBUMIN LEVEL 2021-07-08 [facility], [facility] 14:56:00 [facility] ALKALINE PHOSPHATASE 2021-07-08 [facility], [facility] 14:56:00 [facility] ALANINE AMINOTRANSFERASE 2021-07-08 [facility] 14:56:00 [facility] ASPARTATE AMINOTRANSFERASE 2021-07-08 [facility], [facility] 14:56:00 [facility] TOTAL PROTEIN 2021-07-08 [facility] 14:56:00 [facility] FRACTIONATED BILIRUBIN 2021-07-08 [facility], [facility] 14:56:00 [facility] Results CBC 2021-07-08 [facility], [facility] 14:56:00 [facility] MANUAL DIFFERENTIAL 2021-07-08 [facility], [facility] [place] 14:56:00 [facility] THYROID STIMULATING HORMONE 2021-06-24 Roderick [facility] 17:24:00 [facility] FREE THYROXINE 2021-06-24 [facility] 17:24[facility]00 [facility] AMYLASE LEVEL 2021-06-24 [facility] 17:24:00 [facility] LIPASE LEVEL 2021-06-24 [facility] 17:24:00 [facility] COMPLETE BLOOD COUNT W/ 2021-06-24 Roderick [facility] DIFFERENTIAL 17:24:00 [facility] MAGNESIUM LEVEL 2021-06-24 [facility] 17:24:00 [facility] COMPREHENSIVE METABOLIC PANEL 2021-06-24 Joan Vaughn [facility] 17:24:00 [facility] GLUCOSE LEVEL 2021-06-24 [facility] 17:24:00 [facility] BLOOD UREA NITROGEN 2021-06-24 Roderick [facility] 17:24:00 [facility] ELECTROLYTE PANEL 2021-06-24 [facility]ick [facility] 17:24:00 [facility] SERUM CREATININE 2021-06-24 Roderick [facility] exas 17:24:00 [facility] .GLOMERULAR FILTRATION RATE 2021-06-24 Roderick [facility] 17:24:00 [facility] CALCIUM LEVEL TOTAL 2021-06-24 [facility] 17:24:00 [facility] ALBUMIN LEVEL 2021-06-24 [facility] 17:24:00 [facility] ALKALINE PHOSPHATASE 2021-06-24 [facility] 17:24:00 [facility] ALANINE AMINOTRANSFERASE 2021-06-24 [facility] 17:24:00 [facility] ASPARTATE AMINOTRANSFERASE 2021-06-24 [facility] 17:24[facility]00 [facility] TOTAL PROTEIN 2021-06-24 [facility] 17:24[facility]00 [facility] FRACTIONATED BILIRUBIN 2021-06-24 [facility] 17:24[facility] Results CBC 2021-06-24 [facility] 17:24:00 [facility] MANUAL DIFFERENTIAL 2021-06-24 [facility] 17:24:00 [facility] ALBUMIN LEVEL 2021-06-18 [facility] 10:12:00 [facility] COMPLETE BLOOD COUNT W/ 2021-06-18 Teja Andreina [facility] DIFFERENTIAL 10:12:00 [facility] COMPREHENSIVE METABOLIC PANEL 2021-06-18 [facility] 10:12:00 [facility] GLUCOSE LEVEL 2021-06-18 [facility] 10:12:00 [facility] BLOOD UREA NITROGEN 2021-06-18 [facility] 10:12:00 [facility] ELECTROLYTE PANEL 2021-06-18 [facility] 10:12:00 [facility] SERUM CREATININE 2021-06-18 [facility] 10:12:00 [facility] .GLOMERULAR FILTRATION RATE 2021-06-18 Teja Andreina [facility] 10:12:00 [facility] CALCIUM LEVEL TOTAL 2021-06-18 [facility] 10:12:00 [facility] ALKALINE [facility]OSPHATASE 2021-06-18 [facility] 10:12[facility]00 [facility] ALANINE [facility]RANSFERASE 2021-06-18 [facility] 10:12:00 [facility] ASPARTATE AMINOTRANSFERASE 2021-06-18 [facility] 10:12:00 [facility] TOTAL PROTEIN 2021-06-18 [facility] 10:12:00 [facility] FRACTIONATED BILIRUBIN 2021-06-[address] [facility] 10:12:00 [facility] Results CBC 2021-06-18 [facility] 10:12:00 [facility] MANUAL DIFFERENTIAL 2021-06-18 [facility] 10:12:00 [facility] IR NEPHROSTOMY EXCHANGE 60 2021-06-17 Tay Holliday [facility] 14:26:12 [facility] GENERAL LABORATORY ADD ON 2021-06-17 [facility] 12:38:00 Valentin [facility] ALBUMIN LEVEL 2021-06-17 [facility] 08:09:00 [facility] COMPLETE BLOOD COUNT W/ 2021-06-17 [facility] 08:09:00 [facility] COMPREHENSIVE METABOLIC PANEL 2021-06-17 [facility] 08:09:00 [facility] GLUCOSE LEVEL 2021-06-17 [facility] 08:09:00 [facility] BLOOD UREA NITROGEN 2021-06-17 [facility] 08:09:00 [facility] ELECTROLYTE PANEL 2021-06-17 [facility] 08:09:00 [facility] SERUM CREATININE 2021-06-17 [facility] 08:09:00 [facility] .GLOMERULAR FILTRATION RATE 2021-06-17 Teja Andreina [facility] 08:09:00 [facility] CALCIUM LEVEL TOTAL 2021-06-17 [facility] 08:09:00 [facility] ALKALINE PHOSPHATASE 2021-06-17 [facility] 08:09:00 [facility] ALANINE AMINOTRANSFERASE 2021-06-17 [facility] 08:09:00 [facility] ASPARTATE AMINOTRANSFERASE 2021-06-17 [facility] 08:09:00 [facility] TOTAL PROTEIN 2021-06-17 [facility] 08:09:00 [facility] FRACTIONATED BILIRUBIN 2021-06-[address] [facility] 08:09:00 [facility] Results CBC 2021-06-17 [facility] 08:09:00 [facility] MANUAL DIFFERENTIAL 2021-06-17 [facility] 08:09:00 [facility] PHOSPHORUS LEVEL 2021-06-17 [facility] 08:09:00 [facility] MAGNESIUM LEVEL 2021-06-17 [facility] 08:09:00 [facility] RESPIRATORY VIRAL MULTIPLEX 2021-06-17 Teo Sammy [facility] PCR PANEL, NASOPHARYNGEAL 01:31:00 MD Wray [facility] Cancer [facility] Center ALBUMIN LEVEL 2021-06-16 [facility] 07:22:00 [facility] COMPLETE BLOOD COUNT W/ 2021-06-16 [facility] 07:22:00 [facility] COMPREHENSIVE METABOLIC PANEL 2021-06-16 [facility] 07:22:00 [facility] GLUCOSE LEVEL 2021-06-16 [facility] 07:22:00 [facility] BLOOD UREA NITROGEN 2021-06-16 [facility] 07:22:00 [facility] ELECTROLYTE PANEL 2021-06-16 [facility] [place] 07:22:00 [facility] SERUM CREATININE 2021-06-16 [facility] 07:22:00 [facility] .GLOMERULAR FILTRATION RATE 2021-06-16 Teja [facility] 07:22:00 [facility] CALCIUM LEVEL TOTAL 2021-06-16 [facility] 07:22:00 [facility] ALKALINE [facility]OSPHATASE 2021-06-16 [facility] 07:22:00 [facility] ALANINE AMINOTRANSFERASE 2021-06-16 [facility] 07:22:00 [facility] ASPARTATE AMINOTRANSFERASE 2021-06-16 [facility] 07:22:00 [facility] TOTAL PROTEIN 2021-06-16 [facility] 07:22:00 [facility] FRACTIONATED BILIRUBIN 2021-06-16 [facility] 07[facility]22:00 [facility] Results CBC 2021-06-16 [facility] 07:22:00 [facility] MANUAL DIFFERENTIAL 2021-06-16 [facility] 07:22:00 [facility] OSI CT ABDOMEN AND PELVIS 2021-06-16 John Gongora [facility] 04:50:00 [facility] POC CHEM 8 2021-06-15 Emmanuelle Lowe [facility] xas 17:33:00 [facility] COVID-19 (SARS-COV-2) 2021-06-15 Tay Holliday [facility] ASYMPTOMATIC-LT 17:16:00 [facility] BLOODCULTURE 2021-06-15 Tay Holliday [facility] 15:15:00 [facility] URINE CULTURE 2021-06-15 Tay Holliday [facility] 15:15:00 [facility] LACTIC ACID, VENOUS 2021-06-15 Tay Holliday [facility] 15:15:00 [facility] C REACTIVE PROTEIN 2021-06-15 Tay Holliday [facility] 15:15:00 [facility] PROCALCITONIN 2021-06-15 Tay Holliday [facility] 15:15:00 [facility] URINALYSIS WITH MICROSCOPIC 2021-06-15 Tay Holliday [facility] IF INDICATED 15:15:00 [facility] URINALYSIS MICROSCOPIC 2021-06-15 Tay Holliday [facility] 15:15:00 [facility] COMPLETE BLOOD COUNT W/ 2021-06-15 Tay Holliday [facility] DIFFERENTIAL 13:23:00 [facility] COMPREHENSIVE METABOLIC PANEL 2021-06-15 Tay Holliday [facility] 13:23:00 [facility] MAGNESIUM LEVEL 2021-06-15 Tay Holliday [facility] 13:23:00 [facility] PHOSPHORUS LEVEL 2021-06-15 Tay Holliday [facility] 13:23:00 [facility] PROTHROMBIN TIME 2021-06-15 Tay Holliday [place] [facility] [place] 13:23:00 [facility] APTT 2021-06-15 Tay Holliday [facility] 13:23:00 [facility] Results CBC 2021-06-15 Tay Holliday [facility] 13:23:00 [facility] MANUAL DIFFERENTIAL 2021-06-15 Tay Holliday [facility] 13:23:00 [facility] GLUCOSE LEVEL 2021-06-15 Tay Holliday [facility] 13:23:00 [facility] BLOOD UREA NITROGEN 2021-06-15 Tay Holliday [facility] 13:23:00 [facility] ELECTROLYTE PANEL 2021-06-15 Tay Holliday [facility] 13:23:00 [facility] SERUM CREATININE 2021-06-15 Tay Holliday [facility] 13:23:00 [facility] .GLOMERULAR FILTRATION RATE 2021-06-15 Tay Holliday [facility] 13:23:00 [facility] CALCIUM LEVEL TOTAL 2021-06-15 Tay Holliday [facility] 13:23:00 [facility] ALBUMIN LEVEL 2021-06-15 Tay Holliday [facility] 13:23:00 [facility] ALKALINE PHOSPHATASE 2021-06-15 Tay Holliday [facility] 13:23:00 [facility] ALANINE AMINOTRANSFERASE 2021-06-15 Tay Holliday [facility] 13:23:00 [facility] ASPARTATE AMINOTRANSFERASE 2021-06-15 Tay Holliday [facility] 13:23:00 [facility] TOTAL PROTEIN 2021-06-15 Tay Holliday [facility] 13:23:00 [facility] FRACTIONATED BILIRUBIN 2021-06-15 Tay Holliday [facility] 13:23:[address] [facility] [address] CHEST ABDOMEN PELVIS W 2021-06-07 [facility] CONTRAST 17:52:55 [facility] NM BONE SCAN WHOLE BODY 2021-06-06 [facility] 17:31:00 [facility] COMPLETE BLOOD COUNT W/ 2021-06-06 [facility] DIFFERENTIAL 14:58:00 [facility] COMPREHENSIVE METABOLIC PANEL 2021-06-06 [facility] 14[facility]58:00 [facility] FREE THYROXINE 2021-06-06 [facility] 14:58:00 [facility] MAGNESIUM LEVEL 2021-06-06 [facility] 14:58:00 [facility] THYROID STIMULATING HORMONE 2021-06-06 [facility], [facility] 14:58:00 [facility] ADRENOCORTICOTROPIC HORMONE 2021-06-06 [facility], [facility] 14:58:00 [facility] C REACTIVE PROTEIN 2021-06-06 [facility], [facility] 14:58:00 [facility] CORTISOL 2021-06-06 [facility], [facility] 14:58:00 [facility] SEDIMENTATION RATE 2021-06-06 [facility] NON-AUTOMATED 14:58:00 [facility] [facility] AMYLASE LEVEL 2021-06-06 [facility], [facility] [place] 14:58:00 [facility] LIPASE LEVEL 2021-06-06 [facility], [facility] [place] 14:58:00 [facility] Results CBC 2021-06-06 [facility], [facility] [place] 14:58:00 [facility] MANUAL DIFFERENTIAL 2021-06-06 [facility], [facility] 14:58:00 [facility] GLUCOSE LEVEL 2021-06-06 [facility], [facility] [place] 14:58:00 [facility] BLOOD UREA NITROGEN 2021-06-06 [facility], [facility] 14:58:00 [facility] ELECTROLYTE PANEL 2021-06-06 [facility], [facility] 14:58:00 [facility] SERUM CREATININE 2021-06-06 [facility], [facility] [place] 14:58:00 [facility] .GLOMERULAR FILTRATION RATE 2021-06-06 [facility], [facility] 14:58:00 [facility] CALCIUM LEVEL TOTAL 2021-06-06 [facility], [facility] 14:58:00 [facility] ALBUMIN LEVEL 2021-06-06 [facility], [facility] [place] 14:58:00 [facility] ALKALINE PHOSPHATASE 2021-06-06 [facility], [facility] 14:58:00 [facility] ALANINE AMINOTRANSFERASE 2021-06-06 [facility], [facility] 14:58:00 [facility] ASPARTATE AMINOTRANSFERASE 2021-06-06 [facility], [facility] 14:58:00 [facility] TOTAL PROTEIN 2021-06-06 [facility], [facility] [place] 14:58:00 [facility] FRACTIONATED BILIRUBIN 2021-06-06 [facility], [facility] 14:58:00 [facility] THYROID STIMULATING HORMONE 2021-05-27 [facility], [facility] 15:01:00 [facility] FREE THYROXINE 2021-05-27 [facility], [facility] [place] 15:01:00 [facility] AMYLASE LEVEL 2021-05-27 [facility], [facility] [place] 15:01:00 [facility] LIPASE LEVEL 2021-05-27 [facility], [facility] [place] 15:01:00 [facility] COMPLETE BLOOD COUNT W/ 2021-05-27 [facility], [facility] DIFFERENTIAL 15:01:00 [facility] MAGNESIUM LEVEL 2021-05-27 [facility], [facility] [place] 15:01:00 [facility] COMPREHENSIVE METABOLIC PANEL 2021-05-27 [facility], [facility] 15:01:00 [facility] GLUCOSE LEVEL 2021-05-27 [facility], [facility] [place] 15:01:00 [facility] BLOOD UREA NITROGEN 2021-05-27 [facility], [facility] [place] 15:01:00 [facility] ELECTROLYTE PANEL 2021-05-27 [facility], [facility] 15:01:00 [facility] SERUM CREATININE 2021-05-27 [facility], [facility] [place] 15:01:00 [facility] .GLOMERULAR FILTRATION RATE 2021-05-27 [facility], [facility] 15:01:00 [facility] Center CALCIUM LEVEL TOTAL 2021-05-27 [facility], [facility] 15:01:00 [facility] Center ALBUMIN LEVEL 2021-05-27 [facility], [facility] [place] 15:01:00 [facility] Center ALKALINE PHOSPHATASE 2021-05-27 [facility], [facility] 15:01:00 [facility] Center ALANINE AMINOTRANSFERASE 2021-05-27 [facility], [facility] 15:01:00 [facility] Center ASPARTATE AMINOTRANSFERASE 2021-05-27 [facility], [facility] 15:01:00 [facility] Center TOTAL PROTEIN 2021-05-27 [facility], [facility] [place] 15:01:00 [facility] FRACTIONATED BILIRUBIN 2021-05-27 [facility], [facility] 15:01:00 [facility] Center Results CBC 2021-05-27 [facility], [facility] [place] 15:01:00 [facility] er Center MANUAL DIFFERENTIAL 2021-05-27 [facility], [facility] 15:01:00 [facility] Center COMPLETE BLOOD COUNT W/ 2021-05-13 [facility], [facility] DIFFERENTIAL 15:31:00 [facility] Center MAGNESIUM LEVEL 2021-05-13 [facility], [facility] [place] 15:31:00 [facility] Center COMPREHENSIVE METABOLIC PANEL 2021-05-13 [facility], [facility] 15:31:00 [facility] Center Results CBC 2021-05-13 [facility], [facility] [place] 15:31:00 [facility] er Center MANUAL DIFFERENTIAL 2021-05-13 [facility], [facility] 15:31:00 [facility] Center GLUCOSE LEVEL 2021-05-13 [facility], [facility] [place] 15:31:00 [facility] Center BLOOD UREA NITROGEN 2021-05-13 [facility], [facility] 15:31:00 [facility] ELECTROLYTE PANEL 2021-05-13 [facility], [facility] 15:31:00 [facility] SERUM CREATININE 2021-05-13 [facility], [facility] [place] 15:31:00 [facility] .GLOMERULAR FILTRATION RATE 2021-05-13 [facility], [facility] 15:31:00 [facility] CALCIUM LEVEL TOTAL 2021-05-13 [facility], [facility] 15:31:00 [facility] ALBUMIN LEVEL 2021-05-13 [facility], [facility] [place] 15:31:00 [facility] ALKALINE PHOSPHATASE 2021-05-13 [facility], [facility] 15:31:00 [facility] ALANINE AMINOTRANSFERASE 2021-05-13 [facility], [facility] 15:31:00 [facility] ASPARTATE AMINOTRANSFERASE 2021-05-13 [facility], [facility] 15:31:00 [facility] TOTAL PROTEIN 2021-05-13 [facility], [facility] [place] 15:31:00 [facility] FRACTIONATED BILIRUBIN 2021-05-13 [facility], [facility] 15:31:00 [facility] Plan of Care Planned Activity Planned Date Details Comments Source Future Scheduled 2022-05-01 COVID-19 Vaccination Uni versity of Test 14:20:42 (4 - Booster for [place] MD Shanique ojeda Pfizer series) [code = [facility] COVID-19 Vaccination (4 - Booster for Pfizer series)] Future Scheduled 2022-03-[address] [facility] Test 00:00:00 (12+) [code = Medical Center DEPRESSION SCREENING (12+)] Future Scheduled 2022-03-08 FALLS RISK SCREENING [facility] Test 00:00:00 [code = FALLS RISK Medical C enter SCREENING] Future Scheduled 2021-11-06 INFLUENZA VACCINE (#1) [facility]00 [code = INFLUENZA Medical Ce nter VACCINE (#1)] Future Scheduled 2021-04-17 COVID-19 VACCINE (4 - [facility] 00:00:00 Booster for Pfizer Medical C enter series) [code = COVID-19 VACCINE (4 - Booster for Pfizer series)] Future Scheduled 2014-04-[address] [facility] 00:00:00 WELLNESS (YEAR 2 or Medical Center FIRST YEAR if no IPPE) [code = MEDICARE ANNUAL WELLNESS (YEAR 2 or FIRST YEAR if no IPPE)] Future Scheduled 2013 PNEUMOCOCCAL 65+ YRS [facility] Test 00:00:00 (1 - PCV) [code = Medical Ce nter PNEUMOCOCCAL 65+ YRS (1 - PCV)] Future Scheduled 1998 SHINGLES VACCINES ([address] [facility] Test 00:00:00 of 2) [code = SHINGLES Medic al Center VACCINES (1 of 2)] Future Scheduled 1967 DTAP/TDAP/TD VACCINES [facility] 00:00:00 (1 - Tdap) [code = Medical C enter DTAP/TDAP/TD VACCINES (1 - Tdap)] Future Scheduled 1966 HEPATITIS C SCREENING [facility] 00:00:00 [code = HEPATITIS C Medical Center SCREENING] Future Scheduled [address] [facility] Test 00:00:00 Counseling and Medical Cente r Screening (12+) [code = Tobacco Cessation Counseling and Screening (12+)] Future Scheduled [address] [facility] 00:00:00 malignant neoplasm of Medica l Center colon (procedure) [code = 008966758] Future Scheduled [address] [facility] 00:00:00 malignant neoplasm of Medica l Center colon (procedure) [code = 464558524] Future Scheduled [address] [facility] 00:00:00 malignant neoplasm of Medica l Center colon (procedure) [code = 797374123] Future Scheduled [address] [facility] 00:00:00 malignant neoplasm of Medica l Center colon (procedure) [code = 881744126] Future Scheduled 1948 Sigmoidoscopy [code = [facility] Sigmoidoscopy] Medical Cente r Future Scheduled [address] [facility] 00:00:00 (combo) [code = CT Medical C enter Colonography (combo)] Future Appointment 2022-05-02 Joan Vaughn MD, [facility] 14:00:00 [place], [place] [address] Encounters Start End Encounter Admission Attending Care Care Encounter Source Date/Time Date/Time Type Type Clinicians Facility Department ID 2022-01-20 Outpatient SYSTEM, [facility] [id number] 10:55:22 PROVIDER Mitchell o n 2021-06-23 Outpatient SYSTEM, [facility] [id number] 13:17:44 PROVIDER Mitchell o n 2020-04-03 Outpatient SYSTEM, MDA K[facility]ANH [id number] 13:49:46 PROVIDER Mitchell o n 2020-02-19 Outpatient SYSTEM, MDA K[facility]ANH [id number] 11:20:35 PROVIDER Mitchell o n 2020-01-12 Outpatient SYSTEM, KHANH CASSIDY [id number] 11:52:46 PROVIDER Mitchell o n 2019-12-12 Outpatient [facility] K[facility] [id number] 12:59:29 Anderso n 2019-12-04 Outpatient SYSTEM, MDA K[facility]H [id number] 10:35:21 PROVIDER Mitchell o n 2019-11-01 Inpatient ER JENNIFER [facility] Urology [id number] [facility] 18:58:00 LILIBETH 2022-05-01 2022-05-01 Telephone Ana, 1.2.840.1 [id number] [facility] [place] [facility] 00:00:00 00:00:00 Bárbara Hernandez 03747.1.1 it y of 3.412.2.7 [place] .3.631674 .8 [facility] 2022-04-29 2022-04-29 [facility] Shaun Resendiz 1.2.840.1 [id number] [facility] [place] [facility] 12:46:23 23:59:00 Encounter 63289.1.1 it y of 3.412.2.7 [place] .3.875063 MD Banuelos [facility] 2022-04-29 2022-04-29 Outpatient SHAUN RESENDIZ [facility] [id number] 12:46:23 23:59:00 Mitchell o n 2022-04-29 2022-04-29 Documentat Alhalabi, 1.2.840.1 [id number] Univers 00:00:00 00:00:00 ion Joan 41034.1.1 ity of 3.412.2.7 [place] .3.161213 MD Banuelos [facility] 2022-04-29 2022-04-29 Documentat Mach, 1.2.840.1 [id number] Univers 00:00:00 00:00:00 ion Isabel 01898.1.1 ity of 3.412.2.7 [place] .3.000081 MD Bell8 [facility] 2022-04-29 2022-04-29 Travel 1.2.840.1 1.2.494.122 [id number] Univers 00:00:00 00:00:00 21687.1.1 350.1.13.41 ity of 3.412.2.7 [place]7.3.698 [place] .3.596749 084.8 MD Banuelos [facility] 2022-04-28 2022-04-28 [facility] Delvis, 1.2.840.1 [id number] Univers 00:00:00 00:00:00 Only Carina 62068.1.1 ity of 3.412.2.7 [place] .3.162058 MD Banuelos [facility] 2022-04-28 2022-04-28 Telephone Isamar Ricks 1.2.840.1 [id number] Univers 00:00:00 00:00:00 M 76958.1.1 ity of 3.412.2.7 [place] .3.328576 MD Banuelos [facility] 2022-04-24 2022-04-24 Deon Queen, 1.2.840.1 [id number] Univers 11:45:00 23:59:00 Encounter Carina 12498.1.1 it y of 3.412.2.7 [place] .3.955269 MD Bell8 [facility] 2022-04-24 2022-04-24 Outpatient [facility] MDA [id number] MD 11:45:00 23:59:00 CARINA ball 2022-04-24 2022-04-24 [facility] Paula Queenika 1.2.840.1 [id number] [facility] [place] [facility] 13:15:00 15:25:06 Silvia Agustinmac Mcderomtt 48991.1.1 ity of 3.412.2.7 [place] .3.709513 MD Bell8 [facility] 2022-04-24 2022-04-24 Outpatient [facility] [id number] MD 12:37:56 15:25:06 CARINA ball 2022-04-24 2022-04-24 Travel 1.2.840.1 1.2.993.029 [id number] [facility] [place] [facility] 00:00:00 00:00:00 46823.1.1 350.1.13.41 ity of 3.412.2.7 [place]7.3.698 [place] .3.213171 084.8 MD Bell8 [facility] 2022-04-20 2022-04-20 [facility], 1.2.840.1 [id number] Univers 00:00:00 00:00:00 Only Carina 29140.1.1 ity of 3.412.2.7 [place] .3.438984 MD [facility] 2022-04-18 2022-04-18 [facility] Delvis Carina 1.2.840.1 [id number] [facility] 13:00:00 23:59:00 Dev Cartagena 63093.1.1 ity of 3.412.2.7 [place] .3.880779 MD Bell8 [facility] 2022-04-18 2022-04-18 Outpatient [facility] MDA [id number] MD 13:00:00 23:59:00 CARINA Medrano o quinn 2022-04-18 2022-04-18 [facility] [place], 1.2.840.1 [id number] Univers 00:00:00 00:00:00 Only Carina 25489.1.1 ity of 3.412.2.7 [place] .3.135932 .8 [facility] 2022-04-18 2022-04-18 Travel 1.2.840.1 1.2.609.536 [id number] [facility] [place] [facility] 00:00:00 00:00:00 57189.1.1 350.1.13.41 ity of 3.412.2.7 [place]7.3.698 [place] .3.555076 084.8 MD Bell8 [facility] 2022-04-17 2022-04-17 [facility] [place], 1.2.840.1 [id number] [facility] 09:30:00 23:59:00 Encounter Carina 15062.1.1 it y of 3.412.2.7 [place] .3.706859 MD Bell8 [facility] 2022-04-17 2022-04-17 Outpatient DANNI QUEEN [facility] [id number] 09:30:00 23:59:00 CARINA Mitchell o n 2022-04-17 2022-04-17 Follow-Up Roderick, 1.2.840.1 [id number] [facility] [place] [facility] 11:00:00 16:01:41 Joan 27422.1.1 ity of 3.412.2.7 [place] .3.552729 MD Bell8 [facility] 2022-04-17 2022-04-17 Outpatient KHANH VAUGHN [facility] [id number] 10:23:48 16:01:41 JOAN Mitchell o n 2022-04-17 2022-04-17 Telephone Cale, 1.2.840.1 [id number] Univers 00:00:00 00:00:00 June 28950.1.1 ity of 3.412.2.7 [place] .3.164662 MD Bell8 [facility] 2022-04-17 2022-04-17 Orders Roderick, 1.2.840.1 [id number] [facility] [place] [facility] 00:00:00 00:00:00 Only Joan 59617.1.1 ity of 3.412.2.7 [place] .3.313238 MD Bell8 [facility] 2022-04-17 2022-04-17 Michael Queen, 1.2.840.1 [id number] Univers 00:00:00 00:00:00 Only Carina 72597.1.1 ity of 3.412.2.7 [place] .3.447469 MD Bell8 [facility] 2022-04-17 2022-04-17 Travel 1.2.840.1 1.2.231.503 [id number] Univers 00:00:00 00:00:00 01056.1.1 350.1.13.41 ity of 3.412.2.7 [place]7.3.698 [place] .3.944858 084.8 MD Banuelos [facility] 2022-04-16 2022-04-16 Michael Vaughn 1.2.840.1 [id number] Univers 00:00:00 00:00:00 Only Joan 52049.1.1 ity of 3.412.2.7 [place] .3.956004 MD Bell8 [facility] 2022-04-15 2022-04-15 Outpatient DANNI VAUGHN MDA [facility] [id number] 14:15:16 14:15:16 JOAN Medrano o n 2022-04-15 2022-04-15 TelemedicMarvel Rodriguez 1.2.840.1 [id number] Univers 09:30:00 09:45:40 Светлана Juares 70463.1.1 ity of 3.412.2.7 [place] .3.468105 MD Bell8 [facility] 2022-04-15 2022-04-15 Outpatient DANNI ANDREA MDA MDA [id number] 09:18:39 09:45:40 MARVEL ball 2022-04-15 2022-04-15 Michael Vaughn 1.2.840.1 [id number] Univers 00:00:00 00:00:00 Only Joan 77622.1.1 ity of 3.412.2.7 [place] .3.651428 MD Bell8 [facility] 2022-04-15 2022-04-15 Michael Queen 1.2.840.1 [id number] Univers 00:00:00 00:00:00 Only Carina 34565.1.1 ity of 3.412.2.7 [place] .3.572411 MD Bell8 [facility] 2022-04-14 2022-04-14 Outpatient KHANH VAUGHN MDA [id number] 12:46:43 13:07:19 JOAN Mitchell [facility] 2022-04-14 2022-04-14 Ancillary Roderick 1.2.840.1 [id number] [facility] [place] [facility] 10:25:00 12:50:00 Procedure Joan 85130.1.1 it y of 3.412.2.7 [place] .3.643155 MD Bell8 [facility] 2022-04-14 2022-04-14 Outpatient KHANH VAUGHN MDA [id number] [place] 10:59:28 10:59:28 JOAN Mitchell chin 2022-04-14 2022-04-14 Michael Vaughn 1.2.840.1 [id number] [facility] 00:00:00 00:00:00 Only Joan 59955.1.1 ity of 3.412.2.7 [place] .3.719191 MD Bell8 [facility] 2022-04-14 2022-04-14 Michael Queen 1.2.840.1 [id number] Univers 00:00:00 00:00:00 Only Carina 10705.1.1 ity of 3.412.2.7 [place] .3.329542 MD Bell8 [facility] 2022-04-14 2022-04-14 [facility] 1.2.840.1 1.2.202.273 [id number] [facility] [place] [facility] 00:00:00 00:00:00 20442.1.1 350.1.13.41 ity of 3.412.2.7 [place]7.3.698 [place] .3.741114 084.8 MD Banuelos [facility] 2022-04-13 2022-04-13 Deon Carina Queen 1.2.840.1 [id number] [facility] [place] [facility] 12:49:37 23:59:00 Encounter Rubén Garcia 43853.1.1 ity of 3.412.2.7 [place] .3.321021 MD Banuelos [facility] 2022-04-13 2022-04-13 Outpatient DELVIS [facility] [id number] [place] 12:49:37 23:59:00 CARINA ball 2022-04-13 2022-04-13 Michael Queen 1.2.840.1 [id number] [facility] 00:00:00 00:00:00 Only Carina 10368.1.1 ity of 3.412.2.7 [place] .3.103897 MD Banuelos [facility] 2022-04-13 2022-04-13 [facility] 1.2.840.1 1.2.143.456 [id number] [facility] [place] [facility] 00:00:00 00:00:00 11102.1.1 350.1.13.41 ity of 3.412.2.7 [place]7.3.698 [place] .3.277215 084.8 MD Banuelos [facility] 2022 2022 [facility] [id number] 13:14:36 13:37:57 Mitchell CARDONA 2022 2022 Michael Merida 1.2.840.1 [id number] Univers 00:00:00 00:00:00 Only Baylee Carbone 04443.1.1 it y of 3.412.2.7 [place] .3.606080 MD Banuelos [facility] 2022-04-09 2022-04-09 Michael Queen 1.2.840.1 [id number] [facility] 00:00:00 00:00:00 Only Carina 84241.1.1 ity of 3.412.2.7 [place] .3.408886 MD Bell8 [facility] 2022-04-08 2022-04-08 [facility], 1.2.840.1 [id number] Univers 09:30:00 23:59:00 Encounter Joan 45600.1.1 it y of 3.412.2.7 [place] .3.863130 MD Bell8 [facility] 2022-04-08 2022-04-[address] MDA [id number] [place] 09:30:00 23:59:00 JOANLAWANDA Medrano o quinn 2022-04-08 2022-04-08 Outpatient [facility] MDA [id number] [place] 15:30:35 15:30:35 JOAN Wrayers o quinn 2022-04-08 2022-04-08 Orders Roderick, 1.2.840.1 [id number] Univers 00:00:00 00:00:00 Only Joan 61637.1.1 ity of 3.412.2.7 [place] .3.092337 MD Bell8 [facility] 2022-04-08 2022-04-08 Michael Queen, 1.2.840.1 [id number] Univers 00:00:00 00:00:00 Only Carina 93730.1.1 ity of 3.412.2.7 [place] .3.575552 MD Bell8 [facility] 2022-04-07 2022-04-07 [facility] 1.2.840.1 [id number] Univers 15:30:00 16:00:00 ne Joan 09758.1.1 ity of 3.412.2.7 [place] .3.545611 MD Bell8 [facility] 2022-04-07 2022-04-07 Michael Queen, 1.2.840.1 [id number] Univers 00:00:00 00:00:00 Only Carina 55923.1.1 ity of 3.412.2.7 [place] .3.449945 MD Baunelos [facility] 2022-04-06 2022-04-06 Emergency ThiagoBridgett B 1.2.840.1 [id number] Univers 14:17:00 19:44:00 73013.1.1 ity of 3.412.2.7 [place] .3.586721 MD Bell8 [facility] 2022-04-06 2022-04-06 Emergency UR BRIDGETT DAS MDA Emergency [id number] MD 14:17:00 19:44:00 Mitchell o n 2022-04-06 2022-04-06 Travel 1.2.840.1 1.2.315.999 [id number] Univers 00:00:00 00:00:00 82945.1.1 350.1.13.41 ity of 3.412.2.7 [place]7.3.698 [place] .3.198734 084.8 MD Banuelos [facility] 2022-04-03 2022-04-03 Orders Alhalabi, 1.2.840.1 [id number] [id number] Univers 00:00:00 00:00:00 Only Joan 40665.1.1 ity of 3.412.2.7 [place] .3.630381 MD Banuelos [facility] 2022-04-03 2022-04-03 Orders Delvis, 1.2.840.1 [id number] Univers 00:00:00 00:00:00 Only Carina 54195.1.1 ity of 3.412.2.7 [place] .3.637833 MD Bell8 [facility] 2022-04-03 2022-04-03 Orders Gallego, 1.2.840.1 [id number] Univers 00:00:00 00:00:00 Only Irsi N 03173.1.1 it y of 3.412.2.7 [place] .3.919148 MD Banuelos [facility] 2022-04-03 2022-04-03 Orders Alhalabi, 1.2.840.1 [id number] [id number] Univers 00:00:00 00:00:00 Only Joan 17204.1.1 ity of 3.412.2.7 [place] .3.435469 MD Banuelos [facility] 2022-03-31 2022-03-31 Outpatient DANNI VAUGHN [facility] MDA [id number] 12:30:37 13:05:55 JOAN ball 2022-03-31 2022-03-31 [facility] [id number] 11:48:17 11:48:17 JOAN chin n 2022-03-31 2022-03-31 [facility] 1.2.840.1 [id number] Univers 10:30:00 11:00:00 Procedure Joan 38951.1.1 it y of 3.412.2.7 [place] .3.154020 MD Banuelos [facility] 2022-03-31 2022-03-31 Ancillary Roderick, 1.2.840.1 [id number] Univers 10:00:00 11:00:00 Procedure Joan 42564.1.1 it y of 3.412.2.7 [place] .3.418134 MD Banuelos [facility] 2022-03-31 2022-03-31 Outpatient RODERICK [facility] [id number] 09:54:36 09:54:36 JOAN ball 2022-03-31 2022-03-31 Travel 1.2.840.1 1.2.244.336 [id number] Univers 00:00:00 00:00:00 35755.1.1 350.1.13.41 ity of 3.412.2.7 [place]7.3.698 [place] .3.278368 084.8 MD Banuelos [facility] 2022-03-27 2022-03-27 Orders Julián, 1.2.840.1 [id number] Univers 00:00:00 00:00:00 Only Iris N 78820.1.1 it y of 3.412.2.7 [place] .3.479852 MD Bell8 [facility] [place] 2022-03-27 2022-03-27 Orders Gallego, 1.2.840.1 [id number] Univers 00:00:00 00:00:00 Only Iris N 30420.1.1 it y of 3.412.2.7 [place] .3.271262 .8 [facility] 2022-03-25 2022-03-25 Orders Roderick, 1.2.840.1 [id number] Univers 00:00:00 00:00:00 Only Joan 83362.1.1 ity of 3.412.2.7 [place] .3.288250 MD Bell8 [facility] 2022-03-24 2022-03-24 Outpatient DANNI VERGARA MDA MDA [id number] 09:11:58 09:31:12 NAIN ball 2022-03-24 2022-03-24 Michael Oakes, 1.2.840.1 [id number] Univers 00:00:00 00:00:00 Only Jadiel G 01706.1.1 it y of 3.412.2.7 [place] .3.042923 MD Bell8 [facility] 2022-03-19 2022-03-19 Telephone Alisha, 1.2.840.1 [id number] Univers 00:00:00 00:00:00 Nain 87881.1.1 ity of 3.412.2.7 [place] .3.958649 MD Bell8 [facility]18 2022-03-18 Outpatient DANNI VAUGHN MDA MDA [id number] 15:01:45 15:01:45 JOAN ball 2022-03-18 2022-03-18 Documentat Roderick, 1.2.840.1 [id number] 1 [id number] Univers 00:00:00 00:00:00 ion Joan 41939.1.1 ity of 3.412.2.7 [place] .3.929378 MD Bell8 [facility] [place] 2022-03-17 2022-03-17 Telemedici Teresadontaebryant, 1.2.840.1 [id number] 1 [id number] Univers 13:30:00 14:00:00 dex Howell 15769.1.1 ity of 3.412.2.7 [place] .3.706665 MD Banuelos [facility] 2022-03-16 2022-03-17 [facility] Lucille Cunningham 1.2.840.1 [id number] 11 [id number] Univers 11:47:00 13:28:00 Vidhya Green 05693.1.1 ity of 3.412.2.7 [place] .3.501766 MD Bell8 [facility] 2022-03-16 2022-03-17 Outpatient DANNI ALCANTAR MDA Inter Rad [id number] SD 11:47:00 13:28:00 VIDHYA Medrano [facility] 2022-03-16 2022-03-16 Orders Vicenta, 1.2.840.1 [id number] Univers 00:00:00 00:00:00 Only Taya Cervantes 69966.1.1 it y of 3.412.2.7 [place] .3.144608 MD Bell8 [facility] 2022-03-16 2022-03-16 Travel 1.2.840.1 1.2.198.943 [id number] Univers 00:00:00 00:00:00 57009.1.1 350.1.13.41 ity of 3.412.2.7 [place].7.3.698 [place] .3.812928 084.8 .8 [facility] 2022-03-14 2022-03-14 Outpatient CORINA RAMIREZ MDA [facility] [id number] 14:20:39 14:20:39 Mitchell ball 2022-03-14 2022-03-14 Clinical Corina Morin 1.2.840.1 [id number] Univers 14:00:00 14:15:00 Support Hussain Tovar 61921.1.1 ity of 3.412.2.7 [place] .3.798184 MD Bell8 [facility] 2022-03-14 2022-03-14 Travel 1.2.840.1 1.2.221.323 4914 [id number] Univers 00:00:00 00:00:00 89258.1.1 350.1.13.41 ity of 3.412.2.7 2.[place].7.3.698 [place] .3.312900 084.8 .8 [facility] 2022-03-13 2022-03-13 Michael Corina Morin 1.2.840.1 [id number] 11 [id number] Univers 00:00:00 00:00:00 Only Brigitte 99642.1.1 ity of 3.412.2.7 [place] .3.970114 MD Bell8 [facility] 2022-03-12 2022-03-12 Outpatient EL SIEFKER-RAD MDA MDA [id number] 09:02:22 10:40:16 VINCENT NOE 2022-03-12 2022-03-12 Office Siefker-Rad 1.2.840.1 [id number] 11 [id number] Univers 09:00:00 10:40:16 Visit Vincent noe 68580.1.1 ity of 3.412.2.7 [place] .3.356550 MD Bell8 [facility] 2022-03-12 2022-03-12 Outpatient DANNI VAUGHN MDA MDA [id number] 09:22:25 09:22:25 JOAN Medrano [facility] 2022-03-12 2022-03-12 Documentat Siefker-Rad 1.2.840.1 [id number] Univers 00:00:00 00:00:00 ion Vincent noe 55830.1.1 ity of 3.412.2.7 [place] .3.485369 MD Bell8 [facility] 2022-03-12 2022-03-12 Michael Hernandez 1.2.840.1 [id number] Univers 00:00:00 00:00:00 Only Lilibeth Velez 96462.1.1 it y of 3.412.2.7 [place] .3.374954 MD Bell8 [facility] 2022-03-12 2022-03-12 Travel 1.2.840.1 1.2.301.676 8502 [id number] Univers 00:00:00 00:00:00 65997.1.1 350.1.13.41 ity of 3.412.2.7 2.[place].7.3.698 [place] .3.835106 084.8 MD Bell8 [facility] 2022-03-10 2022-03-10 [facility], 1.2.840.1 [id number] [facility] [place] [facility] 13:00:00 15:50:00 Procedure Rachana 49638.1.1 ity of C. 3.412.2.7 [place] .3.243703 MD Banuelos [facility] 2022-03-10 2022-03-10 Outpatient [facility] MDA [id number] 12:39:19 13:05:41 RACHANA Raymundo [facility] 2022-03-10 2022-03-10 Outpatient [facility] MDA [id number] 12:57:05 12:57:05 RACHANA Fonseca [facility] 2022-03-10 2022-03-10 Documentat Sunny, 1.2.840.1 [id number] [facility] [place] [facility] 00:00:00 00:00:00 ana Perdue 02932.1.1 ity of Alanis 3.412.2.7 [place] .3.647005 MD Bell8 [facility] 2022-03-10 2022-03-10 [facility] Martin, 1.2.840.1 [id number] Univers 00:00:00 00:00:00 Only Rachana 79665.1.1 it y of C. 3.412.2.7 [place] .3.440689 MD Banuelos [facility] 2022-03-10 2022-03-10 Marquita Koenig, 1.2.840.1 [id number] 11 [id number] Univers 00:00:00 00:00:00 Alissa Carbone 64588.1.1 ity of 3.412.2.7 [place] .3.913759 MD Bell8 [facility] [place] 2022-03-10 2022-03-10 Travel 1.2.840.1 1.2.742.276 7126 [id number] Univers 00:00:00 00:00:00 35212.1.1 350.1.13.41 ity of 3.412.2.7 2.2.7.3.698 [place] .3.636377 084.8 .8 [facility] [place] 2022-03-06 2022-03-06 Outpatient DANNI ROZ RICK [facility] MDA [id number] 15:08:11 15:28:24 Mitchell ball 2022-03-04 2022-03-04 Michael Palomo 1.2.840.1 [id number] Univers 00:00:00 00:00:00 Only Angela Ball 41108.1.1 it y of 3.412.2.7 [place] .3.373733 MD Bell8 [facility] 2022-03-02 2022-03-02 Esa August 1.2.840.1 [id number] 11 [id number] Univers 00:00:00 00:00:00 Only Héctor 22087.1.1 ity of 3.412.2.7 [place] .3.471915 MD Bell8 [facility] [place] 2022-02-20 2022-02-20 Outpatient DANNI CALDWELL [facility] MDA [id number] 16:17:44 16:17:44 NELITERESA ball 2022-02-20 2022-02-20 Esa Walters 1.2.840.1 [id number] [facility] [place] [facility] 11:45:00 14:30:00 Procedure Héctor 86317.1.1 it y of 3.412.2.7 [place] .3.344177 MD Bell8 Candie ball [facility] [place] 2022-02-20 2022-02-20 Outpatient ESA RAHMAN MDA MDA [id number] 11:51:18 11:51:18 Mitchell o quinn 2022-02-20 2022-02-20 Davida Hale 1.2.840.1 [id number] Univers 00:00:00 00:00:00 Only Homero 29337.1.1 it y of 3.412.2.7 [place] .3.348088 MD Bell8 [facility] 2022-02-20 2022-02-20 Travel 1.2.840.1 1.2.187.984 5472 [id number] Univers 00:00:00 00:00:00 85140.1.1 350.1.13.41 ity of 3.412.2.7 2.[place].7.3.698 [place] .3.545126 084.8 .8 [facility] 2022-02-13 2022-02-13 Michael Palomo, 1.2.840.1 [id number] Univers 00:00:00 00:00:00 Only Angela Quinn 73073.1.1 it y of 3.412.2.7 [place] .3.922499 MD Bell8 [facility] 2022-02-13 2022-02-13 Michael Benavides 1.2.840.1 [id number] Univers 00:00:00 00:00:00 Only Keyon Velez 50622.1.1 ity of 3.412.2.7 [place] .3.151909 MD Bell8 [facility] 2022-02-11 2022-02-11 Esa Ricci 1.2.840.1 [id number] Univers 00:00:00 00:00:00 Héctor 93422.1.1 ity of 3.412.2.7 [place] .3.688891 MD Bell8 [facility] 2022-02-10 2022-02-10 Outpatient EL CANDELARIO HERNANDEZ [facility] [id number] 14:38:24 19:13:29 Mitchell ball 2022-02-10 2022-02-10 Infusion Candelario Hernandez 1.2.840.1 [id number] 1 [id number] Univers 14:00:00 19:13:29 Shine Orozco III P 43543.1.1 ity of 3.412.2.7 [place] .3.261794 MD Bell8 [facility] 2022-02-10 2022-02-10 Ancillary Candelario Hernandez 1.2.840.1 [id number] Univers 15:15:00 18:00:00 Procedure 57590.1.1 it y of 3.412.2.7 [place] .3.529840 MD Bell8 [facility] 2022-02-10 2022-02-10 Follow-Up Candelario Hernandez 1.2.840.1 [id number] [facility] [place] [facility] 13:00:00 16:12:54 Esa Oneill 17580.1.1 ity of 3.412.2.7 [place] .3.630066 MD Bell8 [facility] 2022-02-10 2022-02-10 Outpatient CANDELARIO HERNANDEZ MDA [facility] [id number] 11:50:33 16:12:54 [facility] 2022-02-10 2022-02-10 Outpatient DANNI VAUGHN MDA [facility] [id number] 11:51:11 11:51:11 JOAN [facility] 2022-02-10 2022-02-10 Orders Thomas 1.2.840.1 [id number] Univers 00:00:00 00:00:00 Only Wojciech 04388.1.1 ity of 3.412.2.7 [place] .3.020064 MD Bell8 [facility] 2022-02-10 2022-02-10 Orders Irvin Leyva 1.2.840.1 [id number] Univers 00:00:00 00:00:00 Only 55249.1.1 ity of 3.412.2.7 [place] .3.114928 MD Bell8 [facility] 2022-02-10 2022-02-10 Orders Agus 1.2.840.1 [id number] 11 [id number] Univers 00:00:00 00:00:00 Only Vincent noe 47196.1.1 ity of 3.412.2.7 [place] .3.034857 MD Banuelos [facility] 2022-02-10 2022-02-10 Documentat Siefker-Rad 1.2.840.1 [id number] Univers 00:00:00 00:00:00 ion Vincent noe 08745.1.1 ity of 3.412.2.7 [place] .3.697896 MD Banuelos [facility] 2022-02-10 2022-02-10 Travel 1.2.840.1 1.2.056.691 5102 [id number] Univers 00:00:00 00:00:00 31003.1.1 350.1.13.41 ity of 3.412.2.7 2.2.7.3.698 [place] .3.428738 084.8 MD Banuelos [facility] 2022-02-05 2022-02-05 Orders Joceline, 1.2.840.1 [id number] Univers 00:00:00 00:00:00 Only Neida 63001.1.1 ity of 3.412.2.7 [place] .3.596644 MD Banuelos [facility] 2022-02-05 2022-02-05 Nate Cosme, 1.2.840.1 [id number] Univers 00:00:00 00:00:00 Management Sonia 34137.1.1 i ty of 3.412.2.7 [place] .3.630336 MD Banuelos [facility] 2022-02-04 2022-02-04 [facility] 1.2.840.1 [id number] 1 [id number] Univers 14:35:34 23:59:00 Encounter 82714.1.1 it y of 3.412.2.7 [place] .3.577882 MD Banuelos [facility] 2022-02-04 2022-02-04 [facility] [id number] MD 14:35:34 23:59:00 [facility] 2022-02-04 2022-02-04 Nate Cosme, 1.2.840.1 [id number] Univers 00:00:00 00:00:00 Management Sonia 64510.1.1 i ty of 3.412.2.7 [place] .3Arabella665979 MD Banuelos [facility] 2022-02-04 2022-02-04 Orders Candelario Hernandez 1.2.840.1 [id number] 11 [id number] Univers 00:00:00 00:00:00 Only 60119.1.1 ity of 3.412.2.7 [place] .3.719925 MD Banuelos [facility] 2022-02-04 2022-02-04 Telephone Candelario Hernandez 1.2.840.1 [id number] Univers 00:00:00 00:00:00 80032.1.1 ity of 3.412.2.7 [place] .3.756445 MD Banuelos [facility] 2022-02-04 2022-02-04 Candelario Dorsey 1.2.840.1 [id number] 11 [id number] Univers 00:00:00 00:00:00 Only 94339.1.1 ity of 3.412.2.7 [place] .3.756743 MD Banuelos [facility] 2022-02-03 2022-02-03 Telephone Candelario Hernandez 1.2.840.1 [id number] Univers 00:00:00 00:00:00 50730.1.1 ity of 3.412.2.7 [place] .3.903171 MD Banuelos [facility] 2022-02-03 2022-02-03 [facility] Candelario Hernandez 1.2.840.1 [id number] 10 [id number] Univers 00:00:00 00:00:00 Only 75255.1.1 ity of 3.412.2.7 [place] .3.618636 MD Banuelos [facility] 2022-01-27 2022-01-27 Outpatient DANNI MAYERS MDA MDA [id number] 08:28:35 08:55:44 MEGAN ball 2022-01-23 2022-01-23 Ancillary Vinny Vaughn.2.840.1 [id number] 10 [id number] [facility] [place] [facility] 15:30:00 16:00:00 Procedure Joan 15071.1.1 it y of 3.412.2.7 [place] .3.193328 MD Banuelos [facility] 2022-01-23 2022-01-23 [facility] [id number] 14:14:39 14:14:39 JOAN chin quinn 2022-01-23 2022-01-23 [facility], 1.2.840.1 [id number] 10 [id number] [facility] [place] [facility] 13:00:00 13:30:00 Procedure Joan 55802.1.1 it y of 3.412.2.7 [place] .3.645020 MD Banuelos [facility] 2022-01-23 2022-01-[address] [facility], 1.2.840.1 [id number] 10 [id number] [facility] [place] [facility] 12:15:00 12:30:00 Procedure Joan 12564.1.1 it y of 3.412.2.7 [place] .3.287160 MD Banuelos [facility] 2022-01-23 2022-01-23 Outpatient [facility] [id number] 12:11:53 12:11:53 JOANLAWANDA chin quinn 2022-01-23 2022-01-23 [facility] [id number] 11:44:54 11:44:54 JOAN Mitchell quinn 2022-01-23 2022-01-23 Travel 1.2.840.1 1.2.138.969 6317 [id number] [facility] [place] [facility] 00:00:00 00:00:00 39143.1.1 350.1.13.41 ity of 3.412.2.7 2.[place].7.3.698 [place] .3.644235 084.8 MD Bell8 [facility] 2022-01-22 2022-01-22 Orders Candelario Hernandez 1.2.840.1 [id number] 10 [id number] Univers 00:00:00 00:00:00 Only 21322.1.1 ity of 3.412.2.7 [place] .3.636065 .8 [facility] 2022-01-22 2022-01-22 Orders Candelario Hernandez 1.2.840.1 [id number] 10 [id number] Univers 00:00:00 00:00:00 Only 74790.1.1 ity of 3.412.2.7 [place] .3.765509 .8 [facility] 2022-01-14 2022-01-14 Orders Kennedy, 1.2.840.1 [id number] Univers 00:00:00 00:00:00 Only Keyon K 42434.1.1 ity of 3.412.2.7 [place] .3.512067 MD Bell8 [facility] 2022-01-13 2022-01-13 Outpatient DANNI VAUGHN MDA MDA [id number] 13:36:31 18:14:29 [facility] 2022-01-13 2022-01-13 Mathew Vaughn 1.2.840.1 [id number] [facility] [place] [facility] 13:30:00 18:14:29 Joan 61139.1.1 ity of 3.412.2.7 [place] .3.113567 MD Bell8 [facility] 2022-01-13 2022-01-13 Outpatient KHANH MARTIN MDA [id number] 11:37:27 12:55:18 RACHANA ball 2022-01-13 2022-01-13 Office Rachana Martin 1.2.840.1 10 [id number] [facility] [place] [facility] 11:30:00 12:55:18 Visit Candelario Hernandez 47077.1.1 ity of 3.412.2.7 [place] .3.555680 MD Bell8 [facility] 2022-01-13 2022-01-13 Outpatient CANDELARIO GRANT MDA, MDA [id number] 09:26:43 09:26:43 [facility] 2022-01-13 2022-01-13 DocumentVinny Serna.2.840.1 [id number] 1 [id number] Univers 00:00:00 00:00:00 ion Joan 04360.1.1 ity of 3.412.2.7 [place] .3.506119 MD Banuelos [facility] 2022-01-13 2022-01-13 Orders Candelario Hernandez 1.2.840.1 [id number] 10 [id number] Univers 00:00:00 00:00:00 Only 08577.1.1 ity of 3.412.2.7 [place] .3.799588 MD Banuelos [facility] 2022-01-13 2022-01-13 Orders Arabella, 1.2.840.1 [id number] Univers 00:00:00 00:00:00 Only Ruth 06014.1.1 ity of 3.412.2.7 [place] .3.299659 MD Banuelos [facility] 2022-01-13 2022-01-13 Travel 1.2.840.1 1.2.030.048 6604 [id number] Univers 00:00:00 00:00:00 62575.1.1 350.1.13.41 ity of 3.412.2.7 2.2.7.3.698 [place] .3.215037 084.8 MD Banuelos [facility] 2022-01-12 2022-01-12 Michael Palomo, 1.2.840.1 [id number] Univers 00:00:00 00:00:00 Only Angela Ball 06919.1.1 it y of 3.412.2.7 [place] .3.268119 MD Banuelos [facility] 2022-01-09 2022-01-09 Ancillary Roderick 1.2.840.1 [id number] 10 [id number] Univers 11:30:00 14:20:00 Procedure Joan 97341.1.1 it y of 3.412.2.7 [place] .3.336424 MD Banuelos [facility] 2022-01-09 2022-01-09 Outpatient DANNI VAUGHN MDA MDA [id number] 11:25:09 11:25:09 JOAN Mitchellajay ball 2022-01-09 2022-01-09 Outpatient DANNI VAUGHN MDA [facility] [id number] 11:11:47 11:12:02 JOAN Mitchellajay ball 2022-01-09 2022-01-09 [facility] 1.2.840.1 1.2.701.397 [id number] [facility] [place] [facility] 00:00:00 00:00:00 57676.1.1 350.1.13.41 ity of 3.412.2.7 2.2.7.3.698 [place] .3.324343 084.8 .8 [facility] [place] 2021-12-30 2021-12-30 [facility] [id number] 11:45:00 23:59:00 Mitchell ball 2021-12-30 2021-12-30 [facility] 1.2.840.1 [id number] 1 [id number] [facility] [place] [facility] 11:45:00 23:59:00 Encounter 48904.1.1 it y of 3.412.2.7 [place] .3.727252 MD Bell8 [facility] 2021-12-30 2021-12-30 Telemlui Vaughn 1.2.840.1 [id number] 1 [id number] [facility] [place] [facility] 16:00:00 16:30:00 dex Howell 14439.1.1 ity of 3.412.2.7 [place] .3.696590 MD Bell8 [facility] [place] 2021-12-30 2021-12-30 [facility] 1.2.840.1 [id number] 10 [id number] [facility] [place] [facility] 00:00:00 00:00:00 Only 85283.1.1 ity of 3.412.2.7 [place] .3.110148 MD Bell8 [facility] [place] 2021-12-26 2021-12-26 Outpatient ROSY LINDA MDA [facility] [id number] 15:15:51 15:35:45 Mitchell ball 2021-12-24 2021-12-24 Michael Vaughn 1.2.840.1 [id number] Univers 00:00:00 00:00:00 Only Joan 20397.1.1 ity of 3.412.2.7 [place] .3.882248 .8 [facility] [place] 2021-12-24 2021-12-24 Orders Kennedy, 1.2.840.1 [id number] Univers 00:00:00 00:00:00 Only Keyon K 17087.1.1 ity of 3.412.2.7 [place] .3.157345 .8 [facility] 2021-12-16 2021-12-16 [facility] KHANH MDA [id number] 14:30:00 23:59:00 Mitchell ball 2021-12-16 2021-12-16 [facility] 1.2.840.1 [id number] 1 [id number] [facility] [place] [facility] 14:30:00 23:59:00 Encounter 28092.1.1 it y of 3.412.2.7 [place] .3.091684 .8 [facility] 2021-12-16 2021-12-16 [facility] [id number] 11:33:30 16:23:08 Mitchell ball 2021-12-16 2021-12-16 [facility] CeeCorin mcdermottut 1.2.840.1 [id number] 1 [id number] [facility] [place] [facility] 10:30:00 16:23:08 07350.1.1 ity of 3.412.2.7 [place] .3.176760 .8 [facility] 2021-12-16 2021-12-16 [facility] Roderick, 1.2.840.1 [id number] [facility] [place] [facility] 09:30:00 11:05:47 Visit Joan 82926.1.1 ity of 3.412.2.7 [place] .3.566741 MD Bell8 [facility] [place] 2021-12-16 2021-12-16 Outpatient KHANH VAUGHN MDA [id number] 09:14:15 11:05:47 JOAN ball 2021-12-16 2021-12-16 Outpatient DANNI HAMLINBRYANT [facility] MDA [id number] 09:12:45 09:12:45 JOAN ball 2021-12-16 2021-12-16 Documentat Roderick, 1.2.840.1 [id number] 1 [id number] Univers 00:00:00 00:00:00 ion Joan 07707.1.1 ity of 3.412.2.7 [place] .3.741889 MD Bell8 [facility] 2021-12-16 2021-12-16 Orders David, 1.2.840.1 [id number] Univers 00:00:00 00:00:00 Only Lilibeth Velez 64129.1.1 it y of 3.412.2.7 [place] .3.678883 MD Bell8 [facility] 2021-12-16 2021-12-16 Travel 1.2.840.1 1.2.456.859 [id number] Univers 00:00:00 00:00:00 26708.1.1 350.1.13.41 ity of 3.412.2.7 2.2.7.3.698 [place] .3.209968 084.8 .8 [facility] 2021-12-15 2021-12-15 [facility] [id number] 08:30:00 23:59:00 Mitchell ball 2021-12-15 2021-12-15 [facility] Lucille Cunningham 1.2.840.1 [id number] 10 [id number] [facility] [place] [facility] 08:30:00 23:59:00 Encounter Pillo Mendoza 60328.1.1 ity of 3.412.2.7 [place] .3.530025 MD Bell8 [facility] 2021-12-15 2021-12-15 Travel 1.2.840.1 1.2.037.817 0005 [id number] Univers 00:00:00 00:00:00 37073.1.1 350.1.13.41 ity of 3.412.2.7 2.2.7.3.698 [place] .3.705034 084.8 .8 [facility] 2021-12-07 2021-12-07 Michael Neil 1.2.840.1 [id number] Univers 00:00:00 00:00:00 Only Swapna 77460.1.1 ity of 3.412.2.7 [place] .3.007040 .8 [facility] 2021-11-27 2021-11-27 [facility] Mc[facility] MDA, MDA [id number] 08:34:03 08:34:03 [facility] 2021-11-26 2021-11-26 [facility] Candelario Hernandez 1.2.840.1 [id number] 10 [id number] [facility] [place] [facility] 00:00:00 00:00:00 Only 39829.1.1 ity of 3.412.2.7 [place] .3.260503 .8 [facility] 2021-11-21 2021-11-21 Outpatient DANNI CARDENASEZ KHANH MDA [id number] 10:21:53 11:01:43 Raymundo BLACKBURN 2021-11-18 2021-11-18 [facility] 1.2.840.1 [id number] 1 [id number] [facility] [place] [facility] 15:00:00 18:01:34 63037.1.1 ity of 3.412.2.7 [place] .3.881579 .8 [facility] 2021-11-18 2021-11-18 Outpatient CEECANDELARIO Mcdermott MDA, MDA [id number] 14:08:36 18:01:34 Mitchell ball 2021-11-18 2021-11-18 [facility] Candelario Hernandez 1.2.840.1 [id number] 10 [id number] [facility] [place] [facility] 13:00:00 14:17:54 Visit 49772.1.1 ity of 3.412.2.7 [place] .3.172979 MD Bell8 [facility] 2021-11-18 2021-11-18 Outpatient CANDELARIO HERNANDEZ MDA, MDA [id number] 11:36:31 14:17:54 Mitchell o quinn 2021-11-18 2021-11-18 Ancillary Roderick, 1.2.840.1 [id number] 10 [id number] [facility] [place] [facility] 08:55:00 11:20:00 Procedure Joan 90657.1.1 it y of 3.412.2.7 [place] .3.007836 MD Bell8 [facility] 2021-11-18 2021-11-18 Outpatient TERESAJEREMIAS [facility] MDA [id number] 09:50:47 09:50:47 JOAN Mitchell o 2021-11-18 2021-11-18 Outpatient RODERICK [facility] MDA [id number] 09:00:41 09:00:41 JOAN Mitchell o quinn 2021-11-18 2021-11-18 Documentat Roderick, 1.2.840.1 [id number] 1 [id number] [facility] [place] [facility] 00:00:00 00:00:00 ion Joan 10010.1.1 ity of 3.412.2.7 [place] .3.277127 MD Banuelos [facility] 2021-11-18 2021-11-18 Orders Sadia, 1.2.840.1 [id number] [facility] [place] [facility] 00:00:00 00:00:00 Only Francisca 91757.1.1 ity of 3.412.2.7 [place] .3.832239 MD Banuelos [facility] 2021-11-18 2021-11-18 Travel 1.2.840.1 1.2.707.980 [id number] [facility] [place] [facility] 00:00:00 00:00:00 62395.1.1 350.1.13.41 ity of 3.412.2.[place] .3.605[place] 084.8 MD Banuelos [facility] 2021-11-17 2021-11-17 [facility] MDA [id number] MD 13:06:01 13:06:01 Mitchell o quinn 2021-11-17 2021-11-17 Ancillary 1.2.840.1 [id number] [facility] [place] [facility] 12:30:00 13:00:00 Procedure 65380.1.1 it y of 3.412.2.7 [place] .3.454594 MD Banuelos [facility] 2021-11-17 2021-11-17 Ancillary 1.2.840.1 [id number] [facility] 10:00:00 10:30:00 Procedure 73572.1.1 it y of 3.412.2.7 [place] .3.826131 MD Banuelos [facility] 2021-11-17 2021-11-17 [facility] MDA [id number] MD 09:57:13 09:57:13 [facility] 2021-11-17 2021-11-17 Travel 1.2.840.1 1.2.496.000 [id number] [facility] [place] [facility] 00:00:00 00:00:00 71608.1.1 350.1.13.41 it[place] of 3.412.2.[place] .3.834296 084.8 MD Banuelos [facility] 2021-11-04 2021-11-04 [facility] [id number] 09:15:00 23:59:00 [facility] 2021-11-04 2021[facility]11-04 [facility] 1.2.840.1 [id number] [facility] [place] [facility] 09:15:00 23:59:00 Encounter Joel Valadez 72938.1.1 ity of 3.412.2.7 [place] .3.564407 MD Banuelos [facility] 2021-11-04 2021-11-04 Travel 1.2.840.1 1.2.011.437 [id number] [facility] 00:00:00 00:00:00 01855.1.1 350.1.13.41 ity of 3.412.2.[place].3.698 [place] .3.563839 084.8 MD Banuelos [facility] 2021-11-03 2021-11-03 Orders Corina Morin 1.2.840.1 [id number] [facility] 00:00:00 00:00:00 Only M 77742.1.1 ity of 3.412.2.7 [place] .3.182314 MD Bell8 [facility] 2021-10-22 2021-10-22 Outpatient KHANH VAUGHN MDA [id number] 13:26:09 13:26:09 JOANLAWANDA Medrano quinn 2021-10-22 2021-10-22 Orders Kennedy, 1.2.840.1 [id number] [facility] 00:00:00 00:00:00 Only Keyon Velez 00887.1.1 ity of 3.412.2.7 [place] .3.260551 MD Bell8 [facility] 2021-10-22 2021-10-22 Orders Candelario Hernandez 1.2.840.1 [id number] [facility] 00:00:00 00:00:00 Only 23427.1.1 ity of 3.412.2.7 [place] .3.831175 MD eBll8 [facility] 2021-10-22 2021-10-22 Travel 1.2.840.1 1.2.400.585 [id number] [facility] 00:00:00 00:00:00 24395.1.1 350.1.13.41 ity of 3.412.2.7 [place]3.698 [place] .3.880337 084.8 MD Bell8 [facility] 2021-10-21 2021-10-21 Outpatient RODERICK [facility] [place] [id number] 16:36:26 23:59:00 JOAN ball 2021-10-21 2021-10-21 [facility] Joan Vaughn 1.2.840.1 [id number] [facility] [place] [facility] 16:36:26 23:59:00 Encounter Sterling Hurtado 68025.1.1 ity of 3.412.2.7 [place] .3.114231 MD Banuelos [facility] 2021-10-21 2021-10-21 Outpatient RODERICK [facility] [place] [id number] 08:07:57 16:35:00 JOAN ball 2021-10-21 2021-10-21 [facility] Joan Vaughn 1.2.840.1 [id number] [facility] [place] [facility] 08:07:57 16:35:00 Encounter Sterling Hurtado 50931.1.1 ity of 3.412.2.7 [place] .3.001754 MD Bell8 [facility] 2021-10-21 2021-10-21 Outpatient CANDELARIO HERNANDEZ [facility] MDA [id number] [place] 11:11:52 15:28:21 Mitchell ball 2021-10-21 2021-10-21 [facility] Candelario Hernandez 1.2.840.1 [id number] 1 [id number] [facility] [place] [facility] 10:00:00 15:28:21 46900.1.1 ity of 3.412.2.7 [place] .3.888342 MD [facility]8 [facility] 2021-10-21 2021-10-21 [facility] Teresadontaebryant, 1.2.840.1 [id number] [facility] [place] [facility] 08:00:00 10:18:53 Visit Joan 51439.1.1 ity of 3.412.2.7 [place] .3.097528 MD Bell8 [facility] [place] 2021-10-21 2021-10-21 Outpatient RODERICK [facility] MDA [id number] 07:19:37 10:18:53 JOAN ball 2021-10-21 2021-10-21 Outpatient RODERICK [facility] MDA [id number] 07:19:10 07:19:10 JOAN ball 2021-10-21 2021-10-21 Document Roderick 1.2.840.1 [id number] 1 [id number] [facility] [place] [facility] 00:00:00 00:00:00 ion Joan 08696.1.1 ity of 3.412.2.7 [place] .3.693826 MD Bell8 [facility] 2021-10-21 2021-10-21 Orders Fernandez, 1.2.840.1 [id number] Univers 00:00:00 00:00:00 Only Altagracia Simpson 50338.1.1 ity of 3.412.2.7 [place] .3.571033 .8 [facility] 2021-10-21 2021-10-21 Orders David, 1.2.840.1 [id number] Univers 00:00:00 00:00:00 Only Lilibeth Velez 28252.1.1 it y of 3.412.2.7 [place] .3.789140 .8 [facility] 2021-10-21 2021-10-21 Travel 1.2.840.1 1.2.628.042 [id number] Univers 00:00:00 00:00:00 73641.1.1 350.1.13.41 ity of 3.412.2.7 [place].3.698 [place].50400[place] 084.8 .8 [facility] 2021-10-20 2021-10-20 Outpatient DANNI MOHAMUD MDA MDA [id number] 08:51:50 09:30:21 JOSE ball 2021-10-14 2021-10-14 Office Roderick, 1.2.840.1 [id number] [facility] [place] [facility] 14:30:00 15:30:19 Visit Joan 54321.1.1 ity of 3.412.2.7 [place] .3.264016 MD Bell8 [facility] 2021-10-14 2021-10-14 Outpatient DANNI VAUGHN MDA MDA [id number] 12:23:23 15:30:19 JOAN ball 2021-10-14 2021-10-14 Outpatient DANNI VAUGHN MDA MDA [id number] 12:22:43 12:22:43 JOAN ball 2021-10-14 2021-10-14 Documentat Roderick, 1.2.840.1 [id number] 1 [id number] Univers 00:00:00 00:00:00 ion Joan 16331.1.1 ity of 3.412.2.7 [place] .3.234168 MD Banuelos [facility] 2021-10-14 2021-10-14 Travel 1.2.840.1 1.2.553.521 7822 [id number] Univers 00:00:00 00:00:00 92442.1.1 350.1.13.41 ity of 3.412.2.7 [place].3.698 [place].09[place] 084.8 MD Bell8 [facility] 2021-10-13 2021-10-13 [facility] Candelario Hernandez 1.2.840.1 [id number] 10 [id number] Univers 00:00:00 00:00:00 Only 12531.1.1 ity of 3.412.2.7 [place] .3.681380 MD Banuelos [facility] 2021-10-13 2021-10-13 [facility] Candelario Hernandez 1.2.840.1 [id number] 10 [id number] Univers 00:00:00 00:00:00 Only 72647.1.1 ity of 3.412.2.7 [place] .3.073492 MD Banuelos [facility] 2021-10-08 2021-10-08 Clinical Candelario Hernandez 1.2.840.1 [id number] 1 [id number] [facility] [place] [facility] 12:30:00 12:47:15 Support Kim Saunders 12022.1.1 ity of 3.412.2.7 [place] .3.837646 MD Banuelos [facility] 2021-10-08 2021-10-08 Outpatient CANDELARIO HERNANDEZ [facility] [id number] 08:54:03 12:47:15 [facility] 2021-10-08 2021-10-08 Office Joan Vaughn 1.2.840.1 [id number] [facility] [place] [facility] 11:00:00 11:27:14 Visit Candelario Hernandez 58015.1.1 ity of 3.412.2.7 [place] .3.808675 MD .8 [facility] 2021-10-08 2021-10-08 Outpatient DANNI VAUGHN KHANH MDA [id number] 08:53:45 11:27:14 JOAN chin quinn 2021-10-08 2021-10-08 Outpatient DANNI VAUGHN KHANH MDA [id number] 08:53:24 08:53:24 JOAN Mitchell chin quinn 2021-10-08 2021-10-08 Documentat Roderick 1.2.840.1 [id number] 1 [id number] Univers 00:00:00 00:00:00 ion Joan 58383.1.1 ity of 3.412.2.7 [place] .3.597337 MD Bell8 [facility] 2021-10-08 2021-10-08 Travel 1.2.840.1 1.2.981.741 [id number] [id number] Univers 00:00:00 00:00:00 43208.1.1 350.1.13.41 ity of 3.412.2.7 2.[place]7.3.698 [place] .3.5584[place] 084.8 MD Bell8 [facility] 2021-10-01 2021-10-01 Michael Benavides 1.2.840.1 [id number] Univers 00:00:00 00:00:00 Only Keyon K 09007.1.1 ity of 3.412.2.7 [place] .3.606263 MD Banuelos [facility] 2021-09-30 2021-09-30 Clinical Candelario Hernandez 1.2.840.1 [id number] 1 [id number] Univers 13:00:00 13:30:00 Support 56039.1.1 ity of 3.412.2.7 [place] .3.241994 MD Banuelos [facility] 2021-09-30 2021-09-30 Office Joan Vaughn 1.2.840.1 [id number] Univers 11:00:00 11:28:01 Visit Candelario Hernandez 88033.1.1 ity of 3.412.2.7 [place] .3.093246 .8 [facility] 2021-09-30 2021-09-30 Outpatient DANNI MOOREDONTAEBRYANT [facility] [id number] 09:18:24 11:28:01 JOAN Mitchell chin quinn 2021-09-30 2021-09-30 Outpatient EL KHANH VAUGHN MDA [id number] 09:17:56 09:17:56 JOAN Mitchellajay ball 2021-09-30 2021-09-30 Outpatient CANDELARIO GRANT [facility] [id number] 00:00:00 00:00:00 Mitchell giuseppe ball 2021-09-30 2021-09-30 Documentat Roderick, 1.2.840.1 [id number] Univers 00:00:00 00:00:00 ion Joan 85893.1.1 ity of 3.412.2.7 [place] .3.819633 MD Banuelos [facility] 2021-09-30 2021-09-30 Nurse Only Candelario Hernandez 1.2.840.1 [id number] Univers 00:00:00 00:00:00 22947.1.1 ity of 3.412.2.7 [place] .3.140552 MD Banuelos [facility] 2021-09-30 2021-09-30 Travel 1.2.840.1 1.2.972.339 [id number] Univers 00:00:00 00:00:00 84892.1.1 350.1.13.41 ity of 3.412.2.7 [place]7.3.698 [place]3.823815 084.8 MD Banuelos [facility] 2021-09-29 2021-09-29 Nurse Only Candelario Hernandez 1.2.840.1 [id number] Univers 00:00:00 00:00:00 13805.1.1 ity of 3.412.2.7 [place] .3.141867 MD Banuelos [facility] 2021-09-25 2021-09-25 Michael Benavides, 1.2.840.1 [id number] Univers 00:00:00 00:00:00 Only Keyon Velez 36950.1.1 ity of 3.412.2.7 [place] .3.140569 .8 [facility] 2021-09-25 2021-09-25 [facility] 1.2.840.1 [id number] Univers 00:00:00 00:00:00 Joan 48261.1.1 ity of 3.412.2.7 [place] .3.337416 .8 [facility] 2021-09-24 2021-09-24 Outpatient KHANH VAUGHN MDA [id number] 12:45:18 12:45:18 JOAN ball 2021-09-24 2021-09-24 Travel 1.2.840.1 1.2.864.791 1517 [id number] [facility] [place] [facility] 00:00:00 00:00:00 81088.1.1 350.1.13.41 ity of 3.412.2.7 [place]7.3.698 [place]3.550928 084.8 .8 [facility] 2021-09-23 2021-09-23 Outpatient KHANH VAUGHN [facility] [id number] [place] 16:44:52 23:59:00 JOAN ball 2021-09-23 2021-09-23 [facility] Joan Vaughn 1.2.840.1 [id number] [facility] [place] [facility] 16:44:52 23:59:00 Encounter Lynn Green 32385.1.1 ity of 3.412.2.7 [place] .3.991304 MD Bell8 [facility] 2021-09-23 2021-09-23 Outpatient DANNI VAUGHN MDA MDA [id number] 10:42:25 16:43:00 JOAN ball 2021-09-23 2021-09-23 [facility] Joan Vaughn 1.2.840.1 [id number] [facility] [place] [facility] 10:42:25 16:43:00 Shandra Douglass 55581.1.1 ity of 3.412.2.7 [place] .3.880442 MD Bell8 [facility] 2021-09-23 2021-09-23 Outpatient CANDELARIO [facility] [id number] 12:40:09 16:11:38 Mitchell o n 2021-09-23 2021-09-23 Infusion Candelario Hernandez 1.2.840.1 [id number] 1 [id number] [facility] [place] [facility] 10:30:00 16:11:38 99773.1.1 ity of 3.412.2.7 [place] .3.710213 MD Bell8 [facility] 2021-09-23 2021-09-23 Outpatient CANDELARIO GRANT [facility] [id number] 09:58:53 09:58:53 Mitchell o n 2021-09-23 2021-09-23 Office Roderick 1.2.840.1 [id number] [facility] [place] [facility] 08:30:00 09:00:00 Visit Joan 65473.1.1 ity of 3.412.2.7 [place] .3.343068 MD Bell8 [facility] 2021-09-23 2021-09-23 Outpatient DANNI VAUGHN MDA [facility] [id number] 08:37:51 08:37:51 JOAN Medrano o quinn 2021-09-23 2021-09-23 Outpatient DANNI VAUGHN MDA [facility] [id number] 08:36:46 08:36:46 JOAN Wrayers o n 2021-09-23 2021-09-23 Documentat Alhalbryant, 1.2.840.1 [id number] 1 [id number] [facility] [place] [facility] 00:00:00 00:00:00 ion Joan 83374.1.1 ity of 3.412.2.7 [place] .3.934176 MD Bell8 [facility] 2021-09-23 2021-09-23 Documentat Aljeremias, 1.2.840.1 [id number] 1 [id number] Univers 00:00:00 00:00:00 ion Joan 65728.1.1 ity of 3.412.2.7 [place] .3.264086 MD Bell8 [facility] 2021-09-23 2021-09-23 [facility] Candelario Hernandez 1.2.840.1 [id number] 10 [id number] Univers 00:00:00 00:00:00 Only 11049.1.1 ity of 3.412.2.7 [place] .3.125505 MD Bell8 [facility] 2021-09-23 2021-09-23 Orders Roderick, 1.2.840.1 [id number] [id number] Univers 00:00:00 00:00:00 Only Joan 17424.1.1 ity of 3.412.2.7 [place] .3.169417 MD Bell8 [facility] 2021-09-23 2021-09-23 Travel 1.2.840.1 1.2.249.648 [id number] [id number] Univers 00:00:00 00:00:00 36680.1.1 350.1.13.41 ity of 3.412.2.7 2.2.7.3.698 [place] .3.410162 084.8 MD Bell8 [facility] 2021-09-23 2021-09-23 Orders Dewey 1.2.840.1 [id number] [id number] Univers 00:00:00 00:00:00 Only Angela Ball 73801.1.1 it y of 3.412.2.7 [place] .3.149285 MD Bell8 [facility] 2021-09-22 2021-09-22 Outpatient DANNI MOHAMUD MDA MDA [id number] 13:41:12 14:05:07 JOSE ibarrao n 2021-09-22 2021-09-22 Orders Kennedy, 1.2.840.1 [id number] Univers 00:00:00 00:00:00 Only Keyon Velez 24799.1.1 ity of 3.412.2.7 [place] .3.046554 MD Banuelos [facility] 2021-09-19 2021-09-19 [facility] 1.2.840.1 [id number] 1 [id number] [facility] [place] [facility] 13:24:14 23:59:00 Encounter Vidhya Alcantar 28677.1.1 ity of 3.412.2.7 [place] .3.218144 MD Bell8 [facility] 2021-09-19 2021-09-19 [facility] [id number] [place] 13:24:14 23:59:00 [facility] 2021-09-19 2021-09-19 [facility] 1.2.840.1 [id number] 1 [id number] [facility] [place] [facility] 13:00:00 13:23:00 Encounter 37195.1.1 it y of 3.412.2.7 [place] .3.727456 MD Bell8 [facility] 2021-09-19 2021-09-19 [facility] [id number] [place] 13:00:00 13:23:00 [facility] 2021-09-19 2021-09-19 Travel 1.2.840.1 1.2.994.554 5347 [id number] [facility] [place] [facility] 00:00:00 00:00:00 88828.1.1 350.1.13.41 ity of 3.412.2.7 2.[place].7.3.698 [place] .3.5860[place] 084.8 MD Bell8 [facility] 2021-09-18 2021-09-18 [facility] 1.2.840.1 [id number] [facility] [place] [facility] 11:52:30 23:59:00 Encounter Tonya Hennessy 71189.1.1 ity of 3.412.2.7 [place] .3.295469 MD Bell8 [facility] 2021-09-18 2021-09-18 [facility] [id number] [place] 11:52:30 23:59:00 [facility] 2021-09-17 2021-09-17 Orders Kennedy, 1.2.840.1 [id number] Univers 00:00:00 00:00:00 Only Keyon Rosie 67972.1.1 ity of 3.412.2.7 [place] .3.297375 .8 [facility] [place] 2021-09-17 2021-09-17 [facility] Candelario Hernandez 1.2.840.1 [id number] 10 [id number] Univers 00:00:00 00:00:00 Only 50401.1.1 ity of 3.412.2.7 [place] .3.367264 .8 [facility] [place] 2021-09-15 2021-09-15 [facility] Zeus Locke 1.2.840.1 [id number] [facility] [place] [facility] 10:06:53 23:59:00 Encounter Cynthia Valadez 56185.1.1 ity of 3.412.2.7 [place] .3.697545 MD Bell8 [facility] 2021-09-15 2021-09-15 Outpatient DANIN LOCKE MDA [facility] [id number] 10:06:53 23:59:00 ZEUS ball 2021-09-15 2021-09-15 Outpatient CANDELARIO HERNANDEZ MDA, MDA [id number] 13:47:33 13:47:33 Mitchell ball 2021-09-15 2021-09-15 [facility] Candelario Hernandez 1.2.840.1 [id number] [facility] [place] [facility] 10:30:00 11:00:00 Visit Esa Oneill 07944.1.1 ity of 3.412.2.7 [place] .3.860463 MD Bell8 [facility] [place] 2021-09-15 2021-09-15 [facility] Roderick 1.2.840.1 [id number] Univers 09:23:14 10:05:00 Encounter Joan 93203.1.1 it y of 3.412.2.7 [place] .3.472602 MD Bell8 [facility] [place] 2021-09-15 2021-09-15 Outpatient KHANH VAUGHN MDA [id number] 09:23:14 10:05:00 JOAN ball 2021-09-15 2021-09-15 Documentat Guidry, 1.2.840.1 [id number] [facility] [place] [facility] 00:00:00 00:00:00 ion Flavia 12355.1.1 ity of 3.412.2.7 [place] .3.911665 MD Bell8 [facility] 2021-09-15 2021-09-15 Travel 1.2.840.1 1.2.296.700 6119 [id number] [facility] [place] [facility] 00:00:00 00:00:00 97645.1.1 350.1.13.41 ity of 3.412.2.7 2.[place]7.3.698 [place] .3.428648 084.8 MD Bell8 [facility] 2021-09-12 2021-09-12 [facility] 1.2.840.1 [id number] [facility] [place] [facility] 11:27:36 23:59:00 Encounter Joan 73996.1.1 it y of 3.412.2.7 [place] .3.380466 MD Bell8 [facility] 2021-09-12 2021-09-12 Outpatient DANNI VAUGHN [facility] MDA [id number] 11:27:36 23:59:00 JOAN Mitchell [facility] 2021-09-12 2021-09-12 [facility] Irvin Marsh 1.2.840.1 [id number] [facility] [place] [facility] 10:33:47 11:26:00 Encounter 65966.1.1 it y of 3.412.2.7 [place] .3.864230 .8 [facility] 2021-09-12 2021-09-12 Outpatient IRVIN KEMP [facility] MDA [id number] 10:33:47 11:26:00 Mitcehll [facility] 2021-09-12 2021-09-12 Outpatient CANDELARIO GRANT [facility] MDA [id number] 06:58:45 06:58:45 Mitchell quinn 2021-09-12 2021-09-12 Travel 1.2.840.1 1.2.867.559 2901 [id number] [facility] [place] [facility] 00:00:00 00:00:00 29667.1.1 350.1.13.41 ity of 3.412.2.7 2.[place]7.3.698 [place] .3.381855 084.8 MD Banuelos [facility] 2021-09-11 2021-09-11 [facility], .2.840.1 [id number] [facility] [place] [facility] 11:36:54 23:59:00 Encounter Joan 72782.1.1 it y of 3.412.2.7 [place] .3.657659 MD Bell8 [facility] 2021-09-11 2021-09-11 [facility] [id number] [place] 11:36:54 23:59:00 JOANLAWANDA Medrano [facility] 2021-09-11 2021-09-11 Travel 1.2.840.1 1.2.466.528 2124 [id number] [facility] [place] [facility] 00:00:00 00:00:00 78039.1.1 350.1.13.41 ity of 3.412.2.7 2.[place].7.3.698 [place] .3.924733 084.8 MD Banuelos [facility] 2021-09-10 2021-09-10 [facility] 1.2.840.1 [id number] 1 [id number] [facility] [place] [facility] 14:37:34 23:59:00 Encounter 26448.1.1 it y of 3.412.2.7 [place] .3.325462 MD Bell8 [facility] 2021-09-10 2021-09-10 [facility] [id number] [place] 14:37:34 23:59:00 [facility] 2021-09-10 2021-09-10 [facility] 1.2.840.1 [id number] 1 [id number] [facility] [place] [facility] 14:16:35 14:36:00 Encounter 46034.1.1 it y of 3.412.2.7 [place] .3.589312 MD Bell8 [facility] 2021-09-10 2021-09-10 [facility] [id number] 14:16:35 14:36:00 Mitchell o quinn 2021-09-10 2021-09-10 [facility] 1.2.840.1 [id number] 1 [id number] [facility] [place] [facility] 14:16:18 14:36:00 Encounter 49725.1.1 it y of 3.412.2.7 [place] .3.806943 .8 [facility] 2021-09-10 2021-09-10 [facility] [id number] 14:16:18 14:36:00 Mitchell quinn 2021-09-10 2021-09-10 [facility] 1.2.840.1 [id number] 1 [id number] [facility] [place] [facility] 14:15:58 14:15:58 Encounter 41979.1.1 it y of 3.412.2.7 [place] .3.711094 .8 [facility] 2021-09-10 2021-09-10 [facility] [id number] [place] 14:15:58 14:15:58 [facility] 2021-09-10 2021-09-10 [facility] 1.2.840.1 [id number] [facility] [place] [facility] 12:21:30 14:14:00 Encounter Joan 03353.1.1 it y of 3.412.2.7 [place] .3.479778 .8 [facility] 2021-09-10 2021-09-10 [facility] [id number] [place] 12:21:30 14:14:00 [facility] 2021-09-10 2021-09-10 [facility] [id number] [place] 13:14:59 13:14:59 Mitchell [facility] 2021-09-10 2021-09-10 [facility] 1.2.840.1 1.2.445.471 7409 [id number] [facility] [place] [facility] 00:00:00 00:00:00 96303.1.1 350.1.13.41 ity of 3.412.2.7 2.[place]7.3.698 [place] .3.851712 084.8 MD Banuelos [facility] 2021-09-10 2021-09-10 Orders Ania, 1.2.840.1 [id number] Univers 00:00:00 00:00:00 Only Rozmin 61657.1.1 ity of 3.412.2.7 [place] .3.661999 MD Banuelos [facility] 2021-09-09 2021-09-09 [facility] Roderick, 1.2.840.1 [id number] [facility] [place] [facility] 15:42:26 23:59:00 Encounter Joan 22101.1.1 it y of 3.412.2.7 [place] .3.724536 MD Banuelos [facility] 2021-09-09 2021-09-09 Outpatient KHANH VAUGHN [facility] [id number] [place] 15:42:26 23:59:00 JOAN Medrano [facility] 2021-09-09 2021-09-09 Travel 1.2.840.1 1.2.618.018 [id number] Univers 00:00:00 00:00:00 34149.1.1 350.1.13.41 ity of 3.412.2.7 2.2.7.3.698 [place] .3.828208 084.8 MD Banuelos [facility] 2021-09-03 2021-09-03 Orders Roderick, 1.2.840.1 [id number] Univers 00:00:00 00:00:00 Only Joan 95650.1.1 ity of 3.412.2.7 [place] .3.016524 MD Banuelos [facility] 2021-09-03 2021-09-03 Documentat Roderick 1.2.840.1 [id number] 1 [id number] Univers 00:00:00 00:00:00 ion Joan 09609.1.1 ity of 3.412.2.7 [place] .3.667751 MD Banuelos [facility] 2021-09-03 2021-09-03 Candelario Dorsey 1.2.840.1 [id number] 10 [id number] Univers 00:00:00 00:00:00 Only 41042.1.1 ity of 3.412.2.7 [place] .3.509453 MD Bell8 [facility] 2021-09-02 2021-09-02 Documentat Teresajeremias, 1.2.840.1 [id number] 1 [id number] Univers 00:00:00 00:00:00 ion Joan 03786.1.1 ity of 3.412.2.7 [place] .3.933912 MD Bell8 [facility] 2021-09-02 2021-09-02 Documentat Guidry, 1.2.840.1 [id number] 10 [id number] [facility] [place] [facility] 00:00:00 00:00:00 ion Flavia 69367.1.1 ity of 3.412.2.7 [place] .3.314726 MD Bell8 [facility] 2021-09-01 2021-09-01 [facility] 1.2.840.1 [id number] 1093 [id number] [facility] [place] [facility] 10:47:57 23:59:00 Encounter Flavia 91195.1.1 it y of 3.412.2.7 [place] .3.828518 MD Bell8 [facility] 2021-09-01 2021-09-01 Outpatient BREA [facility] [id number] [place] 10:47:57 23:59:00 FLAVIA ball 2021-09-01 2021-09-01 [facility] 1.2.840.1 [id number] [facility] 09:36:58 10:46:00 Encounter Flavia 99755.1.1 it y of 3.412.2.7 [place] .3.421917 MD Bell8 [facility] 2021-09-01 2021-09-01 Outpatient [facility] [id number] [place] 09:36:58 10:46:00 FLAVIA ball 2021-09-01 2021-09-01 Documentat [facility] 1.2.840.1 [id number] 10 [id number] Univers 00:00:00 00:00:00 ion Flavia 29135.1.1 ity of 3.412.2.7 [place] .3.298455 MD Banuelos [facility] 2021-09-01 2021-09-01 Documentat Guidry, 1.2.840.1 [id number] 10 [id number] Univers 00:00:00 00:00:00 ion Flavia 00341.1.1 ity of 3.412.2.7 [place] .3.157647 MD Banuelos [facility] 2021-09-01 2021-09-01 Travel 1.2.840.1 1.2.801.945 1401 [id number] Univers 00:00:00 00:00:00 85087.1.1 350.1.13.41 ity of 3.412.2.7 2.2.7.3.698 [place] .3.117541 08Vani.8 MD Banuelos [facility] 2021-08-26 2021-08-26 Orders Crabdengy, 1.2.840.1 [id number] [id number] Univers 00:00:00 00:00:00 Only Brandan 06954.1.1 ity of 3.412.2.7 [place] .3.164816 MD [facility]uelos [facility] 2021-08-21 2021-08-21 Orders Simona, 1.2.840.1 [id number] [id number] Univers 00:00:00 00:00:00 Only Brandan 30308.1.1 ity of 3.412.2.7 [place] .3.559601 MD Banuelos [facility] 2021-08-19 2021-08-19 [facility] 1.2.840.1 [id number] 1 [id number] Univers 10:51:09 23:59:00 Encounter 31117.1.1 it y of 3.412.2.7 [place] .3.054863 MD Banuelos [facility] 2021-08-19 2021-08-19 Office Roderick, 1.2.840.1 [id number] Univers 14:30:00 15:34:02 Visit Joan 21019.1.1 ity of 3.412.2.7 [place] .3.330366 MD Banuelos [facility] 2021-08-19 2021-08-19 [facility] 1.2.840.1 [id number] Univers 13:00:00 13:30:00 Procedure 54479.1.1 it y of 3.412.2.7 [place] .3.302462 MD [facility] 2021-08-19 2021-08-19 [facility].840.1 [id number] Univers 10:30:00 11:00:00 Procedure 88767.1.1 it y of 3.412.2.7 [place] .3.828891 MD [facility] 2021-08-19 2021-08-19 [facility] 1.2.840.1 [id number] 1 [id number] Univers 06:57:22 10:50:00 Encounter 66777.1.1 it y of 3.412.2.7 [place] .3.110271 MD [facility] 2021-08-19 2021-08-19 Travel 1.2.840.1 1.2.322.752 [id number] Univers 00:00:00 00:00:00 94659.1.1 350.1.13.41 ity of 3.412.2.[place]3.698 [place] .3.618050 084.8 MD [facility] 2021-08-05 2021-08-05 [facility] 1.2.840.1 [id number] 1 [id number] Univers 10:00:00 23:59:00 Encounter 93962.1.1 it y of 3.412.2.7 [place] .3.624840 MD [facility] 2021-08-05 2021-08-05 [facility] 1.2.840.1 [id number] Univers 12:15:00 14:15:00 Angi, Malinda Kim 73854.1.1 ity of 3.412.2.7 [place] .3.256794 MD [facility] 2021-08-05 2021-08-05 Office Roderick 1.2.840.1 [id number] Univers 11:30:00 12:17:58 Visit Joan 96111.1.1 ity of 3.412.2.7 [place] .3.306599 MD [facility] 2021-08-05 2021-08-05 Outpatient CANDELARIO HERNANDEZ [facility] [id number] [place] 12:10:29 12:10:29 [facility] 2021-08-05 2021-08-05 Travel 1.2.840.1 1.2.192.917 [id number] Univers 00:00:00 00:00:00 39254.1.1 350.1.13.41 ity of 3.412.2.[place].3.698 [place] .3.2230[place] 084.8 MD [facility] 2021-07-24 2021-07-24 [facility] 1.2.840.1 [id number] Univers 00:00:00 00:00:00 Only 19133.1.1 ity of 3.412.2.7 [place] .3.946753 MD [facility] 2021-07-22 2021-07-22 [facility] Candelario Hernandez 1.2.840.1 [id number] 1 [id number] Univers 08:45:00 23:59:00 Encounter 82636.1.1 it y of 3.412.2.7 [place] .3.818277 MD [facility] 2021-07-22 2021-07-22 [facility] Candelario Hernandez 1.2.840.1 [id number] 1 [id number] Univers 11:00:00 13:17:37 17309.1.1 ity of 3.412.2.7 [place] .3.140829 MD [facility] 2021-07-22 2021-07-22 Landon Vaughn, 1.2.840.1 [id number] 1 [id number] Univers 10:30:00 11:00:00 ne Joan 14495.1.1 ity of 3.412.2.7 [place] .3.746713 MD Bell8 [facility] 2021-07-22 2021-07-22 Irvin Jean 1.2.840.1 [id number] Univers 00:00:00 00:00:00 Only 96788.1.1 ity of 3.412.2.7 [place] .3.198169 MD Bell8 [facility] 2021-07-22 2021-07-22 Travel 1.2.840.1 1.2.812.343 [id number] Univers 00:00:00 00:00:00 99173.1.1 350.1.13.41 ity of 3.412.2.[place]3.698 [place] .3.501988 084.8 MD Bell8 [facility] 2021-07-15 2021-07-15 Rosa Isela Parker 1.2.840.1 [id number] Univers 13:00:00 13:30:00 Sara Alba 36936.1.1 ity of 3.412.2.7 [place] .3.208902 MD Bell8 [facility] 2021-07-08 2021-07-08 [facility] Quintin 1.2.840.1 [id number] Univers 09:47:24 23:59:00 Miley Aguilera 45401.1.1 ity of 3.412.2.7 [place] .3.028443 MD Bell8 [facility] 2021-07-08 2021-07-08 Candelario Ortiz 1.2.840.1 [id number] Univers 09:00:00 13:53:45 37979.1.1 ity of 3.412.2.7 [place] .3.754529 MD Bell8 [facility] 2021-07-08 2021-07-08 Office Ndjeremias, 1.2.840.1 [id number] [facility] [place] [facility] 13:30:00 13:30:00 Visit Joan 60554.1.1 ity of 3.412.2.7 [place] .3.882766 MD Bell8 [facility] 2021-07-08 2021-07-08 [facility] Candelario Hernandez 1.2.840.1 [id number] Univers 00:00:00 00:00:00 Only 54857.1.1 ity of 3.412.2.7 [place] .3.638747 MD Bell8 [facility] 2021-07-08 2021-07-08 [facility] 1.2.840.1 1.2.922.730 [id number] Univers 00:00:00 00:00:00 14997.1.1 350.1.13.41 ity of 3.412.2.7 [place].3.698 [place].4045[place] 084.8 MD Bell8 [facility] 2021-07-03 2021-07-03 Outpatient DANNI VERGARA MDA MDA [id number] 09:42:33 10:10:59 NAIN ball 2021-06-25 2021-06-25 Outpatient KHANH VAUHGN MDA [id number] 10:30:38 10:30:38 JOAN ball 2021-06-24 2021-06-24 [facility] Roderick 1.2.840.1 [id number] [facility] [place] [facility] 11:30:00 23:59:00 Encounter Joan 04258.1.1 it y of 3.412.2.7 [place] .3.999643 MD Lakisha Schreiber [facility] 2021-06-24 2021-06-24 Outpatient KHANH VAUGHN MDA [id number] 11:30:00 23:59:00 JOAN ball 2021-06-24 2021-06-24 [facility] Joan Vaughn 1.2.840.1 [id number] Univers 13:30:00 15:30:00 Tanya Cortes 13568.1.1 ity of 3.412.2.7 [place] .3.823017 MD Bell8 [facility] 2021-06-24 2021-06-24 Telemedici Roderick, 1.2.840.1 [id number] 1 [id number] Univers 13:00:00 13:30:00 dex Coughlinar 37425.1.1 ity of 3.412.2.7 [place] .3.116964 MD Bell8 [facility] 2021-06-24 2021-06-24 Outpatient DANNI VAUGHN MDA [facility] [id number] 12:29:09 12:29:09 JOAN ball 2021-06-24 2021-06-24 Orders Bell, 1.2.840.1 [id number] Univers 00:00:00 00:00:00 Only Ruth 55373.1.1 ity of 3.412.2.7 [place] .3.808517 MD Bell8 [facility] 2021-06-24 2021-06-24 Travel 1.2.840.1 1.2.341.199 [id number] Univers 00:00:00 00:00:00 47447.1.1 350.1.13.41 ity of 3.412.2.7 [place].3.698 [place].8627[place] 084.8 .8 [facility] 2021-06-18 2021-06-18 Ancillary Pisters, 1.2.840.1 [id number] Univers 23:35:00 23:40:00 Procedure Jonh 98021.1.1 it y of 3.412.2.7 [place] .3.564465 MD Bell8 [facility] 2021-06-18 2021-06-18 Outpatient DANNI GONGORA MDA MDA [id number] 23:34:18 23:34:18 JOHN ball 2021-06-15 2021-06-18 [facility] Tay Holliday 1.2.840.1 [id number] [facility] [place] [facility] 07:30:00 12:30:00 Encounter Emmanuelle Lowe 43979.1.1 ity of Vincent Stinson 3.412.2.7 [place] .3.630223 MD Bell8 [facility] 2021-06-15 2021-06-18 Inpatient UR MATTROHAN-KRYSTYNA [facility] Oncology [id number] SD 07:30:00 12:30:00 VINCENT NOE 2021-06-17 2021-06-17 Inpatient DANNI HOLLIDAY, [facility] MDA [id number] 07:46:03 18:23:24 TAY ball 2021-06-15 2021-06-15 Inpatient DANNI WILKERSON, [facility] MDA [id number] 17:53:12 18:20:23 ANDREINA ball 2021-06-15 2021-06-15 Travel 1.2.840.1 1.2.316.752 [id number] [facility] [place] [facility] 00:00:00 00:00:00 77004.1.1 350.1.13.41 ity of 3.412.2.7 [place].3.698 [place].724708 084.8 MD Bell8 [facility] 2021-06-10 2021-06-10 Outpatient CANDELARIO GRANT [facility] [id number] 12:28:07 16:38:07 Mitchell ball 2021-06-10 2021-06-10 Infusion Candelario Hernandez 1.2.840.1 [id number] [facility] [place] [facility] 11:45:00 16:38:07 Crystal Tineo 20293.1.1 ity of 3.412.2.7 [place] .3.284620 MD [facility] 2021-06-10 2021-06-10 Office Roderick 1.2.840.1 [id number] [id number] Shaunna 10:30:00 12:21:10 Visit Joan 56560.1.1 ity of 3.412.2.7 [place] .3.037007 MD Banuelos [facility] 2021-06-10 2021-06-10 Outpatient DANNI TERESADONTAEBRYANT [facility] [id number] 10:29:32 12:21:10 JOAN Wrayers [facility] 2021-06-10 2021-06-10 Orders Ribeiro, 1.2.840.1 [id number] Univers 00:00:00 00:00:00 Only Ale 14589.1.1 i ty of 3.412.2.7 [place] .3.710172 MD Bell8 [facility] 2021-06-10 2021-06-10 Travel 1.2.840.1 1.2.955.387 [id number] [id number] Univers 00:00:00 00:00:00 31695.1.1 350.1.13.41 ity of 3.412.2.7 2.[place].3.698 [place].6895[place] 084.8 MD Banuelos [facility] 2021-06-07 2021-06-07 [facility] Corinut 1.2.840.1 [id number] [facility] [place] [facility] 10:45:41 23:59:00 Encounter 37432.1.1 it y of 3.412.2.7 [place] .3.925261 MD Banuelos [facility] 2021-06-07 2021-06-07 Outpatient CANDELARIO HERNANDEZ [facility] [id number] 10:45:41 23:59:00 Mitchell [facility] 2021-06-07 2021-06-07 Travel 1.2.840.1 1.2.023.382 [id number] [facility] [place] [facility] 00:00:00 00:00:00 96515.1.1 350.1.13.41 ity of 3.412.2.7 [place]7.3.698 [place] .3.401992 084.8 MD Banuelos [facility] 2021-06-06 2021-06-06 [facility] 1.2.840.1 [id number] 1 [id number] Univers 08:30:00 23:59:00 Encounter 02067.1.1 it y of 3.412.2.7 [place] .3.700530 MD [facility] 2021-06-06 2021-06-06 Outpatient CANDELARIO HERNANDEZ [facility] [id number] 08:30:00 23:59:00 Mitchellajay ball 2021-06-06 2021-06-06 [facility] CEECANDELARIO Mcdermott [facility] [id number] 12:03:30 12:03:30 Mitchellajay ball 2021-06-06 2021-06-06 [facility] 1.2.840.1 [id number] [facility] [place] [facility] 11:30:00 12:00:00 Procedure 53998.1.1 it y of 3.412.2.7 [place] .3.583953 MD [facility] 2021-06-06 2021-06-06 [facility] Cor[facility] 1.2.840.1 [id number] [facility] [place] [facility] 09:00:00 09:30:00 Procedure 79764.1.1 it y of 3.412.2.7 [place] .3.211107 MD [facility] 2021-06-06 2021-06-06 [facility] [id number] 09:17:02 09:17:02 Mitchell ball 2021-06-06 2021-06-06 Travel 1.2.840.1 1.2.981.546 [id number] Univers 00:00:00 00:00:00 69314.1.1 350.1.13.41 ity of 3.412.2.7 [place]7.3.698 [place] .[place].1554[place] 084.8 MD [facility] 2021-05-28 2021-05-28 Outpatient DANNI VAUGHN [facility] [id number] 06:57:27 06:57:27 JOAN ball 2021-05-27 2021-05-27 [facility] 1.2.840.1 [id number] 1 [id number] [facility] [place] [facility] 08:30:00 23:59:00 Encounter 93856.1.1 it y of 3.412.2.7 [place] .3.691176 MD Bell8 [facility] 2021-05-27 2021-05-27 Outpatient CEECANDELARIO Mcdermott [facility] [id number] 08:30:00 23:59:00 [facility] 2021-05-27 2021-05-27 [facility] Candelario Hernandez 1.2.840.1 [id number] Univers 12:45:00 13:26:52 [place] Mary Lou Braden Etta 89968.1.1 ity of 3.412.2.7 [place] .3.741082 MD Bell8 [facility] 2021-05-27 2021-05-27 Outpatient CEECANDELARIO Mcdermott [facility] [id number] 10:10:53 13:26:52 [facility] 2021-05-27 2021-05-27 Telemedici Roderick, 1.2.840.1 [id number] Univers 10:30:00 11:00:00 ne Joan 08361.1.1 ity of 3.412.2.7 [place] .3.180062 MD Bell8 [facility] 2021-05-27 2021-05-27 Orders Quintin, 1.2.840.1 [id number] Univers 00:00:00 00:00:00 Only Ale 91534.1.1 i ty of 3.412.2.7 [place] .3.942890 MD Bell8 [facility] 2021-05-27 2021-05-27 Orders David, 1.2.840.1 [id number] Univers 00:00:00 00:00:00 Only Lilibeth Velez 79504.1.1 it y of 3.412.2.7 [place] .3.073309 MD Bell8 [facility] 2021-05-27 2021-05-27 Travel 1.2.840.1 1.2.178.387 [id number] Univers 00:00:00 00:00:00 82702.1.1 350.1.13.41 ity of 3.412.2.7 [place]7.3.698 [place] .[place].208[place] 084.8 .8 [facility] 2021-05-15 2021-05-15 [facility] [place], 1.2.840.1 [id number] Univers 00:00:00 00:00:00 Only Baylee Carbone 72695.1.1 it y of 3.412.2.7 [place] .3.403691 .8 [facility] 2021-05-13 2021-05-13 [facility] 1.2.840.1 [id number] 1 [id number] [facility] [place] [facility] 09:00:00 23:59:00 Encounter 03032.1.1 it y of 3.412.2.7 [place] .3.609854 MD Bell8 [facility] 2021-05-13 2021-05-13 Outpatient [facility] MDA [id number] SD 09:00:00 23:59:00 Mitchell ball 2021-05-13 2021-05-13 On license of [facility] MDA [id number] 11:26:24 16:35:07 Mitchell ball 2021-05-13 2021-05-13 [facility] 1.2.840.1 [id number] 1 [id number] [facility] [place] [facility] 11:00:00 16:35:07 56904.1.1 ity of 3.412.2.7 [place] .3.898630 MD Bell8 [facility] 2021-05-13 2021-05-13 [facility] Roderick 1.2.840.1 [id number] [id number] [facility] [place] [facility] 10:00:00 10:44:29 Visit Joan 49125.1.1 ity of 3.412.2.7 [place] .3.592437 MD Banuelos [facility] 2021-05-13 2021-05-13 Outpatient KHANH VAUGHN MDA [id number] 09:33:47 10:44:29 JOAN ball 2021-05-13 2021-05-13 [facility] 1.2.840.1 1.2.749.802 [id number] [facility] [place] [facility] 00:00:00 00:00:00 40812.1.1 350.1.13.41 ity of 3.412.2.7 [place]7.3.698 [place] .[place].7937[place] 084.8 MD .8 [facility] 2021-05-05 2021-05-05 Outpatient [facility], MDA MDA [id number] 07:37:12 08:07:37 FER ball 2021-04-30 2021-04-30 Outpatient [facility], MDA MDA [id number] 07:22:02 07:22:02 JOAN ball 2021-04-29 2021-04-29 Outpatient [facility], [facility] MDA MDA [id number] 06:45:00 23:59:00 Mitchell ball 2021-04-29 2021-04-29 [facility], [facility] MDA MDA [id number] 09:59:17 15:19:40 Mitchell ball 2021-04-15 2021-04-15 [facility], [facility] MDA MDA [id number] 08:45:00 23:59:00 Mitchell ball 2021-04-15 2021-04-15 [facility], MDA MDA [id number] 09:34:43 11:02:17 JOAN ball 2021-04-15 2021-04-15 [facility], [facility] MDA MDA [id number] 10:38:28 10:38:28 Mitchell ball 2021-04-04 2021-04-04 Outpatient [facility], MDA MDA [id number] 12:00:43 12:00:43 JOAN ball 2021-04-01 2021-04-01 [facility], [facility] MDA MDA [id number] 09:25:17 23:59:00 Mitchell ball 2021-04-01 2021-04-01 Outpatient [facility], [facility] MDA MDA [id number] 11:09:32 15:29:21 Mitchell o quinn 2021-04-01 2021-04-01 [facility] MDA MDA [id number] 09:48:04 12:45:27 JOAN ball 2021-03-31 2021-03-31 Outpatient [facility], [place] MDA MDA [id number] 10:37:06 23:59:00 Mitchell ball 2021-03-28 2021-03-28 Outpatient [facility], JOMA MDA MDA [id number] 12:47:44 12:47:44 Mitchell o quinn 2021-03-28 2021-03-28 Outpatient [facility], [place] MDA MDA [id number] 09:53:23 09:53:23 Mitchell o quinn 2021-03-21 2021-03-21 Outpatient [facility], JOCT MDA MDA [id number] 09:25:27 23:59:00 Mitchell ball 2021-03-19 2021-03-19 [facility], MDA MDA [id number] 11:20:33 11:20:33 JOAN ball 2021-03-18 2021-03-18 Outpatient [facility], [place] MDA MDA [id number] 09:35:51 11:40:46 Mitchell ball 2021-03-17 2021-03-17 Outpatient [facility], [place] MDA MDA [id number] 13:16:48 23:59:00 Mitchell ball 2021-03-10 2021-03-10 Outpatient [facility], MDA MDA [id number] 10:44:50 23:59:00 FLAVIA ball 2021-03-10 2021-03-10 Outpatient [facility], MDA MDA [id number] 12:25:34 12:57:08 FER ball 2021-03-04 2021-03-04 Outpatient [facility], JOCT MDA MDA [id number] 08:00:00 23:59:00 Mitchell o quinn 2021-03-04 2021-03-04 Outpatient [facility], MDA MDA [id number] 08:20:39 16:09:40 JOAN Wrayers o n 2021-03-04 2021-03-04 [facility] MDA [id number] 10:11:14 14:15:12 JOAN Wrayers o n 2021-03-04 2021-03-04 Outpatient RODERICK, MDA MDA [id number] MD 13:24:53 13:24:53 JOAN Wrayers o n 2021-03-04 2021-03-04 [facility] MDA [id number] MD 13:24:39 13:24:39 JOAN Wrayers o n 2021-02-20 2021-02-20 [facility] MDA [id number] MD 06:54:26 06:54:26 JOAN Wrayers o n 2021-02-19 2021-02-19 [facility] MDA [id number] MD 10:47:20 10:47:20 JOAN Wrayers o n 2021-02-19 2021-02-19 [facility] MDA [id number] MD 10:46:55 10:46:55 JOAN Wrayers o n 2021-02-18 2021-02-18 Outpatient [facility] MDA MDA [id number] 10:02:06 11:51:00 Mitchell o n 2021-02-17 2021-02-17 Outpatient [facility] MDA MDA [id number] 11:38:38 23:59:00 Mitchell o n 2021-02-04 2021-02-04 [facility] MDA [id number] 09:57:30 15:46:10 JOAN Mitchell o n 2021-02-04 2021-02-04 Outpatient [facility] MDA MDA [id number] 12:12:31 15:19:41 Mitchell o n 2021-02-03 2021-02-03 Outpatient EL MDA MDA [id number] MD 13:13:39 23:59:00 Mitchell o n 2021-02-03 2021-02-03 Outpatient EL MDA MDA [id number] MD 10:11:36 13:12:00 Mitchell o n 2021-02-03 2021-02-03 Outpatient EL MDA MDA [id number] MD 12:04:24 12:04:24 Mitchell o n 2021-02-03 2021-02-03 Outpatient EL MDA MDA [id number] MD 09:22:01 09:22:01 Mitchell o n 2021-01-22 2021-01-22 Outpatient RODERICK, MDA MDA [id number] MD 11:27:04 11:27:04 JOAN Mitchell o n 2021-01-21 2021-01-21 [facility] MDA [id number] MD 09:00:00 23:59:00 Mitchell o n 2021-01-21 2021-01-21 Outpatient [facility], J[place] MDA MDA [id number] MD 10:52:04 16:38:21 Mitchell o n 2021-01-07 2021-01-07 [facility] MDA MDA [id number] MD 09:45:00 23:59:00 Mitchell o n 2021-01-07 2021-01-07 Outpatient RODERICK, MDA MDA [id number] MD 09:44:10 11:02:42 JOAN Mitchell o n 2021-01-07 2021-01-07 [facility] MDA MDA [id number] MD 08:56:19 09:44:00 Mitchell o n 2021-01-06 2021-01-06 Outpatient MAYERS, MDA MDA [id number] MD 14:48:37 15:16:07 HUNTER Mitchell o n 2020-12-25 2020-12-25 Outpatient CEEMoe, CORINCT MDA MDA [id number] MD 09:02:58 09:02:58 Mitchell o n 2020-12-24 2020-12-24 Outpatient EL MDA MDA [id number] MD 10:26:32 23:59:00 Mitchell o n 2020-12-24 2020-12-24 Outpatient NABEEL MDA MDA [id number] MD 10:56:40 14:13:28 III, DUANE And erso n 2020-12-10 2020-12-10 Outpatient CEECANDELARIO Mcdermott MDA MDA [id number] MD 11:40:31 23:59:00 Mitchell o quinn 2020-12-10 2020-12-10 Outpatient [facility], [place] MDA MDA [id number] 14:11:26 16:52:31 Mitchell o quinn 2020-12-10 2020-12-10 [facility] MDA [id number] MD 12:37:59 14:11:30 JOAN Medrano o quinn 2020-12-05 2020-12-05 Outpatient [facility], MDA MDA [id number] MD 15:30:30 16:06:06 MORE Medrano o quinn 2020-11-27 2020-11-27 Outpatient [place], MDA MDA [id number] 09:40:56 23:59:00 BRANNON Medrano o quinn 2020-11-27 2020-11-27 [facility], MDA MDA [id number] 10:13:01 10:13:01 JOAN Medrano o quinn 2020-11-26 2020-11-26 Outpatient [facility], [place] MDA MDA [id number] 10:03:25 23:59:00 Mitchell o quinn 2020-11-26 2020-11-26 Outpatient [facility], [place] MDA MDA [id number] 10:42:37 13:47:40 Mitchell o quinn 2020-11-12 2020-11-12 Outpatient [facility], [place] MDA MDA [id number] 13:00:00 23:59:00 Mitchell o quinn 2020-11-12 2020-11-12 Outpatient [facility], MDA MDA [id number] 10:14:16 13:08:15 JOAN Medrano o quinn 2020-11-12 2020-11-12 Outpatient [facility], [place] MDA MDA [id number] 09:59:52 12:59:00 Mitchell o quinn 2020-11-08 2020-11-08 Outpatient [facility], [place] MDA MDA [id number] 12:04:02 12:04:02 Mitchell o quinn 2020-11-08 2020-11-08 Outpatient [facility], [place] MDA MDA [id number] 11:16:06 11:16:06 Mitchell o n 2020-11-08 2020-11-08 Outpatient [facility], [place] MDA MDA [id number] 08:38:11 08:38:11 Mitchell o n 2020-10-30 2020-10-30 Outpatient [facility], MDA MDA [id number] 07:57:01 07:57:01 JOAN Medrano o quinn 2020-10-29 2020-10-29 Outpatient [facility], [place] MDA MDA [id number] 09:00:00 23:59:00 Mitchell o n 2020-10-29 2020-10-29 Outpatient [facility], [place] MDA MDA [id number] MD 10:54:59 14:09:00 Mitchell o n 2020-10-15 2020-10-15 Outpatient [facility], [place] MDA MDA [id number] 12:45:00 23:59:00 Mitchell o n 2020-10-15 2020-10-15 Outpatient [facility], [place] MDA MDA [id number] 14:16:48 19:35:53 Mitchell o quinn 2020-10-15 2020-10-15 Outpatient [facility], MDA MDA [id number] 13:13:07 14:10:53 JOAN Medrano o quinn 2020-10-01 2020-10-01 Outpatient [facility], [place] MDA MDA [id number] 13:32:03 23:59:00 Mitchell o quinn 2020-10-01 2020-10-01 Outpatient [facility], [place] MDA MDA [id number] 10:16:45 13:31:00 Mitchell o quinn 2020-10-01 2020-10-01 Outpatient [facility], [place] MDA MDA [id number] 07:45:00 10:15:00 Mitchell o quinn 2020-10-01 2020-10-01 Outpatient [facility], MDA MDA [id number] 08:16:32 10:01:11 JOAN Medrano o quinn 2020-09-17 2020-09-18 Outpatient [facility], [place] MDA MDA [id number] 10:53:03 09:46:15 Mitchell ball 2020-09-17 2020-09-17 Outpatient CANDELARIO HERNANDEZ MDA MDA [id number] 09:00:00 23:59:00 Mitchell ball 2020-09-17 2020-09-17 Outpatient DANNI VAUGHN, MDA MDA [id number] 09:36:42 10:43:11 JOAN ball 2020-09-04 2020-09-04 Outpatient SHEY, MDA MDA [id number] 13:48:47 14:05:43 BRANDAN Porras so quinn 2020-09-03 2020-09-03 Outpatient RODERICK, MDA MDA [id number] 14:17:50 23:59:00 JOAN ball 2020-09-03 2020-09-03 Outpatient RODERICK, MDA MDA [id number] 12:00:00 14:16:00 JOAN ball 2020-09-03 2020-09-03 Outpatient RODERICK, MDA MDA [id number] 12:18:23 14:13:58 JOAN ball 2020-08-30 2020-08-30 Outpatient RODERICK, MDA MDA [id number] 07:00:00 23:59:00 JOAN ball 2020-08-30 2020-08-30 Outpatient RODERICK, MDA MDA [id number] 13:03:24 13:03:24 JOAN ball 2020-08-30 2020-08-30 Outpatient RODERICK, MDA MDA [id number] 07:32:13 09:39:27 JOAN ball 2020-08-30 2020-08-30 Outpatient RODERICK, MDA MDA [id number] 09:34:58 09:34:58 JOAN ball 2020-08-21 2020-08-27 Inpatient ER [place], MDA Oncology [id number] 19:34:00 14:03:00 BRANNON ball 2020-08-19 2020-08-19 [facility] [place] MDA MDA [id number] 13:08:43 13:08:43 VON ball 2020-08-19 2020-08-19 [facility] [place] MDA MDA [id number] 12:56:14 12:56:14 VON ball 2020-08-16 2020-08-16 Outpatient RODERICK, MDA MDA [id number] MD 12:55:54 12:55:54 JOAN ball 2020-08-13 2020-08-13 Outpatient RODERICK, MDA MDA [id number] 10:00:00 23:59:00 JOAN Medrano o quinn 2020-08-13 2020-08-13 Outpatient RODERICK, MDA MDA [id number] 10:28:35 14:30:54 JOAN Medrano o quinn 2020-08-09 2020-08-09 [facility] MDA MDA [id number] 13:23:14 23:59:00 OJAN ball 2020-08-05 2020-08-07 Inpatient ER HOWARD, MDA Oncology [id number] 17:36:00 15:24:00 REAL ball 2020-07-30 2020-07-31 Outpatient [facility], JOCT MDA MDA [id number] 12:25:06 08:45:42 Mitchell o quinn 2020-07-30 2020-07-30 [facility] MDA MDA [id number] 11:37:19 12:22:46 JOAN ball 2020-07-29 2020-07-29 Outpatient [facility], JOCT MDA MDA [id number] 13:16:54 23:59:00 Mitchell o quinn 2020-07-29 2020-07-29 Outpatient [facility], [place] MDA MDA [id number] 15:38:15 15:38:15 Mitchell o quinn 2020-07-29 2020-07-29 Outpatient [facility], [place] MDA MDA [id number] 15:03:04 15:03:04 Mitchell o quinn 2020-07-29 2020-07-29 Outpatient [facility], [place] MDA MDA [id number] 12:33:54 12:33:54 Mitchell o quinn 2020-07-23 2020-07-23 Outpatient [facility], MDA MDA [id number] 11:24:36 12:05:37 DEANA Wrayers o quinn 2020-07-16 2020-07-17 [facility] MDA MDA [id number] 10:19:39 07:19:08 Mitchell o quinn 2020-07-16 2020-07-16 [facility] [id number] 08:45:00 23:59:00 Mitchell o quinn 2020-07-16 2020-07-16 Outpatient [facility], MDA MDA [id number] 09:28:43 10:17:16 JOAN Wrayers o quinn 2020-07-08 2020-07-08 Outpatient [facility], MDA MDA [id number] 10:00:00 23:59:00 JOAN Wrayers o quinn 2020-07-02 2020-07-02 Outpatient [facility] MDA MDA [id number] 12:45:00 23:59:00 Mitchell o quinn 2020-07-02 2020-07-02 Outpatient [facility], MDA MDA [id number] 13:04:56 15:56:11 JOAN Medrano o quinn 2020-07-02 2020-07-02 Outpatient [facility] MDA MDA [id number] 14:10:51 14:10:51 Mitchell o quinn 2020-06-18 2020-06-19 Outpatient [facility] MDA MDA [id number] 10:17:32 07:56:43 Mitchell o quinn 2020-06-18 2020-06-18 Outpatient [facility], MDA MDA [id number] 12:55:25 23:59:00 JOAN Wrayers o quinn 2020-06-18 2020-06-18 Outpatient [facility], [place] MDA MDA [id number] 08:15:00 12:54:00 Mitchell o quinn 2020-06-18 2020-06-18 Outpatient [facility], MDA MDA [id number] 09:01:04 10:21:53 JOAN Wrayers o quinn 2020-06-04 2020-06-04 Outpatient [facility], [facility] MDA MDA [id number] 14:56:31 23:59:00 Mitchell o n 2020-06-04 2020-06-04 Outpatient [facility], [place] MDA MDA [id number] 14:00:00 14:55:00 Mitchell o n 2020-06-04 2020-06-04 Outpatient [facility], MDA MDA [id number] 07:06:20 07:06:20 JOAN Wrayers o n 2020-05-17 2020-05-17 Outpatient [facility], [facility] MDA MDA [id number] 12:42:05 23:59:00 Mitchell o n 2020-05-17 2020-05-17 [facility], [facility] MDA MDA [id number] 10:44:34 12:41:00 Mitchell o n 2020-05-17 2020-05-17 Outpatient [facility], MDA MDA [id number] 11:16:10 11:16:10 JOAN Wrayers o n 2020-05-09 2020-05-09 [facility], [facility] MDA MDA [id number] 11:59:00 23:59:00 Mitchell o n 2020-05-05 2020-05-05 [facility], MDA MDA [id number] 13:58:02 15:43:21 JOAN Wrayers o quinn 2020-05-03 2020-05-03 [facility], [facility] MDA MDA [id number] 09:30:00 23:59:00 Mitchell o n 2020-05-03 2020-05-03 [facility], JOCT MDA MDA [id number] 11:39:34 11:39:34 Mitchell o n 2020-05-03 2020-05-03 Outpatient [facility], MDA MDA [id number] 10:10:33 11:28:39 JOAN Wrayers o n 2020-05-02 2020-05-02 [facility], JOCT MDA MDA [id number] 13:50:54 13:50:54 Mitchell o n 2020-05-02 2020-05-02 Outpatient CANDELARIO GRANT MDA MDA [id number] 11:12:06 11:12:06 Mitchell o n 2020-05-02 2020-05-02 Outpatient CANDELARIO GRANT MDA MDA [id number] 10:42:01 10:42:01 Mitchell o n 2020-04-19 2020-04-19 Outpatient DANNI ADAMSCANDELARIO Mcdermott MDA MDA [id number] 09:45:00 23:59:00 Mitchell o n 2020-04-19 2020-04-19 Outpatient CANDELARIO GRANT MDA MDA [id number] 11:12:57 11:12:57 Mitchell o n 2020-04-19 2020-04-19 Outpatient DANNI VAUGHN, MDA MDA [id number] 10:02:02 10:58:43 JOAN Wrayers o n 2020-04-08 2020-04-12 Inpatient UR SIEFKER-RAD MDA Oncology [id number] MD 10:34:00 17:48:00 VINCENT NOE 2020-04-11 2020-04-11 Inpatient HOWARD, MDA MDA [id number] MD 14:52:27 14:55:30 REAL ball 2020 2020 Inpatient LINDA, MDA MDA [id number] MD 07:31:34 10:18:58 STERLING Wrayers o quinn 2020-04-09 2020-04-09 Inpatient HOWARD, MDA MDA [id number] MD 05:10:40 05:21:31 REAL Wrayers o quinn 2020-04-06 2020-04-06 Outpatient [facility], MDA MDA [id number] 14:05:32 14:25:13 JAVY Wrayers o quinn 2020-04-04 2020-04-04 [facility] MDA [id number] 14:56:45 23:59:00 JOAN Wrayers o quinn 2020-03-26 2020-03-29 Outpatient RODERICK, MDA MDA [id number] 12:16:18 07:17:04 JOAN Wrayers o n 2020-03-26 2020-03-26 Outpatient RODERICK, MDA MDA [id number] 09:00:00 23:59:00 JOAN Wrayers o quinn 2020-03-26 2020-03-26 Outpatient DANNI VAUGHN, MDA MDA [id number] 10:00:12 12:12:36 JOAN ball 2020-03-18 2020-03-18 Outpatient DANNI VAUGHN, MDA MDA [id number] 10:00:00 23:59:00 JOAN Medrano o quinn 2020-03-05 2020-03-08 Inpatient DANNI LAWS, MDA Oncology [id number] 13:39:00 11:32:00 KATHIE Medrano o quinn 2020-03-07 2020-03-07 Inpatient DANNI LAWS, MDA MDA [id number] 11:28:25 11:47:30 KATHIE Medrano o quinn 2020-03-06 2020-03-06 Inpatient DANNI LAWS, MDA MDA [id number] 09:07:15 09:14:24 KATHIE Medrano o quinn 2020-03-05 2020-03-05 Inpatient DANNI CUNNINGHAM, MDA MDA [id number] 17:06:37 17:35:56 BRANNON Medrano o quinn 2020-03-05 2020-03-05 Outpatient DANNI VAUGHN, MDA MDA [id number] 11:34:36 12:53:39 JOAN Medrano o quinn 2020-03-04 2020-03-04 Outpatient DANNI VAUGHN, MDA MDA [id number] 09:32:00 23:59:00 JOAN Medrano o quinn 2020-03-03 2020-03-03 Outpatient DANNI VAUGHN, MDA MDA [id number] 13:45:00 23:59:00 JOAN Medrano o quinn 2020-03-03 2020-03-03 Outpatient DANNI VAUGHN, MDA MDA [id number] 14:08:57 14:08:57 JOAN Medrano o quinn 2020-02-13 2020-02-16 Inpatient DANNI BENNETT, MDA Oncology [id number] 18:46:00 13:18:00 LESLYE ball 2020-02-13 2020-02-13 Inpatient DANNI CUNNINGHAM, MDA MDA [id number] MD 23:13:20 23:31:26 BRANNON Medrano o quinn 2020-02-13 2020-02-13 Inpatient DANNI CUNNINGHAM, MDA MDA [id number] 21:31:50 21:45:21 BRANNON Wrayers o n 2020-02-13 2020-02-13 [facility] [id number] 13:00:00 18:45:00 NAEL Wrayers o n 2020-02-13 2020-02-13 [facility] MDA [id number] 13:57:51 15:41:54 JOAN Mitchell o n 2020-02-09 2020-02-[address] [facility] [id number] 09:15:00 23:59:00 JOAN Mitchell o n 2020-02-09 2020-02-[address] [facility] MDA [id number] 12:19:57 14:14:33 JOAN Mitchell o n 2020-01-31 2020-01-31 [facility] MDA [id number] 11:15:00 23:59:00 JOAN Wrayers o n 2020-01-31 2020-01-[address] [facility] MDA [id number] 12:12:44 20:04:29 JOAN Mitchell o n 2020-01-26 2020-01-29 Inpatient [facility], MDA Oncology [id number] 15:23:00 17:39:00 FREDDY Medrano o n 2020-01-26 2020-01-26 Inpatient DANNI CUNNINGHAM, MDA MDA [id number] 17:07:44 17:25:25 BRANNON Wrayers o n 2020-01-26 2020-01-[address] [facility] MDA [id number] 12:42:14 14:47:37 JOAN Mitchell o n 2020-01-25 2020-01-25 Outpatient [facility], MDA MDA [id number] 17:15:00 23:59:00 JOAN Mitchell o n 2020-01-25 2020-01-[address] [facility] MDA [id number] 18:12:28 18:12:28 JOAN Mitchell o n 2020-01-09 2020-01-12 Inpatient [facility] MDA Oncology [id number] 10:26:00 15:18:00 VINCENT NOE valdez ball 2020-01-09 2020-01-09 Inpatient EL HOWARD, MDA MDA [id number] MD 12:19:38 12:37:07 REAL ball 2020-01-09 2020-01-09 Outpatient EL RODERICK, MDA MDA [id number] 07:45:00 09:54:00 JOAN ball 2020-01-09 2020-01-09 Outpatient [facility], MDA MDA [id number] 08:17:10 09:26:39 JOAN Wrayers o quinn 2020-01-02 2020-01-03 Outpatient [facility], MDA MDA [id number] 11:54:52 06:52:54 JOAN ball 2020-01-02 2020-01-02 [facility] MDA [id number] 07:56:20 23:59:00 JOAN ball 2020-01-02 2020-01-02 Outpatient [facility], MDA MDA [id number] 08:15:10 10:25:27 JOAN Wrayers o quinn 2019-12-29 2019-12-29 Outpatient [facility], MDA Surgical [id number] 07:16:00 12:25:00 ROSY Michelers o quinn 2019-12-29 2019-12-29 Outpatient EL MDA MDA [id number] 10:30:01 10:30:01 Mitchell ball 2019-12-29 2019-12-29 Outpatient EL MDA MDA [id number] 08:48:20 08:48:20 Mitchell giuseppe ball 2019-12-29 2019-12-29 Outpatient ALNI, MDA MDA [id number] MD 07:29:32 07:29:32 ROSY Medrano o quinn 2019-12-29 2019-12-29 Outpatient [facility], MDA MDA [id number] 06:56:51 07:15:00 HANNAH ball 2019-12-28 2019-12-28 Outpatient MADSEN-HOYOS, MDA MDA [id number] 10:36:07 11:18:17 SHANIQUE Medrano o quinn 2019-12-28 2019-12-28 Outpatient [facility], MDA MDA [id number] 07:18:17 07:18:17 JOHN ball 2019-12-27 2019-12-27 Outpatient EL SUN, MDA MDA [id number] 15:37:17 15:37:17 СВЕТЛАНА ball 2019-12-22 2019-12-22 Outpatient EL ANDREW-GINS MDA MDA [id number] 09:54:00 23:59:00 Mitchell BOLAÑOS 2019-12-18 2019-12-21 Inpatient EL BRANDEE, MDA [facility] [id number] 14:35:00 12:11:00 BRANNON ball 2019-12-20 2019-12-20 Inpatient EL BRANDEE, MDA MDA [id number] MD 09:57:57 11:29:48 BRANNON ball 2019-12-18 2019-12-18 Inpatient EL HOWARD, MDA MDA [id number] MD 23:03:59 23:04:05 REAL ball 2019-12-18 2019-12-18 Inpatient EL ALHALBRYANT, MDA MDA [id number] 20:32:28 21:42:13 JOAN ball 2019-12-18 2019-12-18 Inpatient EL HOWARD, MDA MDA [id number] MD 20:55:52 21:36:04 REAL ball 2019-12-18 2019-12-18 Outpatient EL ALHALABI, MDA MDA [id number] 12:26:14 14:33:40 JOAN ball 2019-12-18 2019-12-18 Outpatient EL PISTERS, MDA MDA [id number] 09:33:20 11:53:15 JOHN ball 2019-12-14 2019-12-15 Outpatient EL HOYOS, MDA Inter Rad [id number] 10:55:00 12:48:00 ISABEL ball 2019-12-13 2019-12-13 Outpatient EL PISTERS, MDA MDA [id number] 13:47:54 23:59:00 JOHN ball 2019-12-13 2019-12-13 Outpatient EL PISTERS, MDA MDA [id number] 13:54:57 13:54:57 JOHN ball 2019-12-13 2019-12-13 Outpatient EL PISTERS, MDA MDA [id number] 02:07:53 02:07:53 JOHN Wrayers o quinn 2019-12-13 2019-12-13 Outpatient EL PISTERS, MDA MDA [id number] 02:07:52 02:07:52 JOHN Wrayers o quinn 2019-12-13 2019-12-13 Outpatient EL PISTERS, MDA MDA [id number] 02:07:51 02:07:51 JOHN Wrayers o quinn 2019-12-13 2019-12-13 Outpatient EL PISTERS, MDA MDA [id number] MD 02:07:51 02:07:51 JOHN Wrayers o quinn 2019-12-13 2019-12-13 Outpatient EL PISTERS, MDA MDA [id number] MD 02:07:46 02:07:46 JOHN Mitchell o n 2019-12-12 2019-12-12 Outpatient EL ALHALABI, MDA MDA [id number] 15:00:00 23:59:00 JOAN Wrayers o n 2019-12-12 2019-12-12 Outpatient MELITON ALANIZ MDA MDA [id number] 17:23:28 17:36:54 Mitchell o n 2019-12-12 2019-12-12 Outpatient EL ALHALABI, MDA MDA [id number] 10:47:51 14:59:00 JOAN Mitchell o n 2019-12-12 2019-12-12 Outpatient EL ALHALABI, MDA MDA [id number] 13:13:58 14:49:06 JOAN Mitchell o n 2019-12-12 2019-12-12 Outpatient EL ALHALABI, MDA MDA [id number] 14:45:33 14:45:33 JOAN Wrayers o n 2019-12-12 2019-12-12 Outpatient ERI ALANIZA MDA MDA [id number] 10:08:10 10:08:10 Mitchell o n 2019-12-12 2019-12-12 Outpatient ERI ALANIZA MDA MDA [id number] 08:31:18 08:31:18 Mitchell o n 2019-12-07 2019-12-08 Outpatient EL PISTERS, MDA Urology [id number] 11:15:00 11:53:00 JOHN Wrayers o n 2019-12-05 2019-12-05 Outpatient EL PISTERS, MDA MDA [id number] 12:57:57 23:59:00 JOHN ball 2019-12-05 2019-12-05 Outpatient EL PISTERS, MDA MDA [id number] 13:38:32 17:25:18 JOHN ball 2019-12-05 2019-12-05 Outpatient EL PISTERS, MDA MDA [id number] 13:21:06 13:21:06 JOHN ball 2019-12-05 2019-12-05 Outpatient EL GAMBIAN-BLOO MDA MDA [id number] 11:30:00 12:56:00 LISA Briggs Mitchell ball 2019-12-05 2019-12-05 Outpatient EL ALHALABI, MDA MDA [id number] 11:02:57 12:50:42 JOAN ball 2019-12-04 2019-12-04 Outpatient EL PISTERS, MDA MDA [id number] 10:36:00 14:46:27 JOHN ball 2019-12-04 2019-12-04 Outpatient EL MDA MDA [id number] 10:29:51 10:30:00 Mitchell ball 2019-12-01 2019-12-01 Outpatient EL PISTERS, MDA MDA [id number] 11:17:05 13:40:04 JOHN ball 2018-10-20 2018-11-19 Recurring nullFlavo TIRR [id number] Memoria 15:11:00 04:59:00 [facility] barbara Mosher 2018-10-20 2018-11-19 Recurring nullFlavo TIRR [id number] Memoria 15:11:00 04:59:00 r [facility] 01 barbara Mosher 2018-10-20 2018-11-18 Outpatient JAQUELIN Peralta MHTIRR [id number] 10:11:00 23:59:00 Mouin F 2018-09-07 2018-10-07 Recurring nullFlavo TIRR [id number] Memoria 13:00:00 04:59:00 r [facility] 00 barbara Mosher 2018-09-07 2018-10-07 Recurring nullFlavo TIRR [id number] Memoria 13:00:00 04:59:00 r [facility] 00 barbara Mosher 2018-09-07 2018-10-06 Outpatient JAQUELIN Peralta MHTIRR [id number] 08:00:00 23:59:00 Mouin F 00 Results Test Description Test Time Test Comments Results Result Comments Source TSH 2022-04-24 19:16:00 Test Item Value Reference Range Interpretation Comme nts TSH (test code = 63510-2) 3.08 See_Comment No te: New Methodology and Reference Range change ef fective 06/24/2017 at 1400 Testing Perform ed at [facility] Lab Metallurgist Helper [facility], [address], [address], [place], [place] [address] [Automated message] The system [employer] generated this result transmitted ref erence range: 0.27 - 4.20 mcunit/mL. The reference range was not used to interpr et this result as normal/abnormal . [facility] [id number] 19:15:59 Test Item Value Reference Range Interpretation Comments T4 Free (test code = 0.90 ng/dL 0.93-1.70 L Testing Performed 3024-7) at [facility] Lab Metallurgist [facility], [address], [place], [place] [address] Lab Interpretation (test Abnormal code = 94137-9) [facility] CenterFractionated Aataymjqr2340-32-14 19:05:48Bili Total<0.3<=1.2 mg/dLMAYS CLINICUnDoctors Hospital at RenaissanceGlomerular Filtration [id number] 19:05:47 Test Item Value Reference Range Interpretation Comments eGFR (test code = 85 See_Comment The eGFRcr [place] calculated with 22584-8) the 2020 CKD-EP I creatinine equation using creatinine, patient's age, and sex for adults 18 years of age and older. Other fa ctors, especially musc le mass, may affect accuracy and need to be considered.A ccording to the Kidney Dise ase: Improving Global Outcomes (KDIGO) CKD Work Group 2012 Clinical Practice Guidel ine, chronic kidney disease (CKD) is defined as the abnormalities of kidney struc ture or function, prese nt for more than 3 months, with implications fo r health. CKD should be class ified by cause, GFR melvina gory, and albuminuria cat egory. KDIGO guidelines prov rodri the following GFR c ategoriesStage Description GFR mL/min/1.73 m2G1* Normal or high >= 90G2* Mildly decrease d 60-89G3a Mildly to moder ately decreased 45-59 G3b Moderately to severely dec reased 30-44G4 Severely decrea sed 15-29G5 Kidney failure <15*In the absence of evid ence of kidney damage, neither G1 nor G2 fulfill criteri a for CKD. Testing Perform ed at [facility] Lab Metallurgist Helper [facility], [address], [address], [place], [place] [address] [Automated message] The sy stem which generated this result transmitted ref erence range: >=60 mL/min/1.7 3 sq. m. The reference range was not used to interpret th is result as normal/abnormal . [facility] CenterTotal [id number] 19:05:46 Test Item Value Reference Range Interpretation Comments Total Protein (test code 5.4 g/dL 6.4-8.3 L Afshan ting Performed at = 2885-2) [facility] Lab Ambulat ory [facility], [address], [address], [place] [address] Lab Interpretation (test Abnormal code = 15095-6) [facility] CenterCalcium [id number] 19:05:45 Test Item Value Reference Range Interpretation Comments Calcium Lvl (test 8.6 mg/dL 8.4-10.2 Testing Pe rformed at code = 43983-9) [facility] Lab Ambu latory Care [facility], [address], [place], [place] [address] [facility] CenterAlkaline Mxwartlhxjs0243-14-40 19:05:44 Test Item Value Reference Range Interpretation Comments Alk Phos (test code = 131 U/L 40-129 H Testin g Performed at 8737-6) [facility] Lab Ambulat ory Care [facility], [address], [place] [address] Lab Interpretation (test Abnormal code = 71788-3) [facility] CenterAlbumin [id number] 19:05:43 Test Item Value Reference Range Interpretation Comments Albumin Lvl (test code = 2.6 See_Comment L Afshan ting Performed at 1751-7) [facility] Lab Ambulat ory [facility], [address], [place] [address] [Automate d message] The sy stem which generated this result transmit fernandez reference range : 3.5 - 5.2 gm/dL. Th e reference range was not used to int erpret this result as normal/abnormal . Lab Interpretation (test Abnormal code = 17156-4) [facility] CenterAspartate Aminotransferase 2022-04-24 19:05:42 Test Item Value Reference Range Interpretation Comments AST (test code = 15 U/L <=40 Testing Per formed at [facility] 1920-8) Lab Metallurgist [facility], [address], [place] [address] [facility] CenterALT2023-02-17 19:05:41 Test Item Value Reference Range Interpretation Comments ALT (test code = 8 U/L <=41 Testing Per formed at [facility] 1742-6) Lab Metallurgist [facility], [address], [place] [address] [facility] CenterElectrolyte [id number] 19:05:40 Test Item Value Reference Range Interpretation Comments Sodium Lvl (test code = 135 See_Comment L Test ing Performed at 2951-2) [facility] Lab Ambulat ory Care [facility], [address], [place] [address] [Automate d message] The sy stem which generated this result transmit fernandez reference range : 136 - 145 mEq/L. Th e reference range was not used to int erpret this result as normal/abnormal . Potassium Lvl (test code 4.7 See_Comment Afshan ting Performed at = 2823-3) B Lab Ambulat ory Care [facility], [address], [place] [address] [Automate d message] The sy stem which generated this result transmit fernandez reference range : 3.5 - 5.1 mEq/L. Th e reference range was not used to int erpret this result as normal/abnormal . Chloride (test code = 99 See_Comment Testin g Performed at 2075-0) [facility] Lab Ambulat ory Care [facility], [address], [place] [address] [Automate d message] The sy stem which generated this result transmit fernandez reference range : 98 - 107 mEq/L. The reference range was not used to int erpret this result as normal/abnormal . CO2 (test code = 2027-9) 29 See_Comment Afshan ting Performed at [facility] Lab [facility], [address], [address], [place] [address] [Automate d message] The sy stem which generated this result transmit fernandez reference range : 22 - 29 mEq/L. The reference range was not used to int erpret this result as normal/abnormal . Anion Gap (test code = 7 [place] [address]-9) [facility] Lab [facility], [address], [address], [place] [address] [Automate d message] The sy stem which generated this result transmit fernandez reference range : 4 - 14 mEq/L. The reference range was not used to int erpret this result as normal/abnormal . Lab Interpretation (test Abnormal code = 87014-7) [facility].Serum Vkemnddgfo4934-84-69 19:05:39 Test Item Value Reference Range Interpretation Comments Creatinine (test code 0.94 mg/dL 0.67-1.17 Testin g Performed at = 2160-0) [facility] Lab [facility], [address], [address], [place] [address] [facility] CenterBUN2023-02-17 19:05:38 Test Item Value Reference Range Interpretation Comments BUN (test code = 3094-0) 33 mg/dL 6-23 H Afshan ting Performed at [facility], [address], [address], [place] [address] Lab Interpretation (test Abnormal code = 47372-7) [facility] CenterGlucose Ehbku7334-07-10 19:05:37 Test Item Value Reference Range Interpretation Comments Glucose Level (test code 181 mg/dL 70-99 H Eff ective 10/02/15, = 2345-7) the glucose reference inter vals have been updat ed based on [place] an Diabetes Associ ation guidelines (Standards of Medical Care in Diabetes 2016. Diabetes Care 2 016; 39: S13-S22).Fa sting blood glucose:Normal: 70-99 mg/dLImpa ired fasting glucose (increased risk for diabetes or pre-diabetes): 100-125 mg/dLDiabetes mellitus: >/=12 6 mg/dL Random bl ood glucose:Normal: 70-199 mg/dLNot e: Random glucose >100 mg/dL is associ ated with increased risk for diabetes Te sting Performed at [facility] Metallurgist Hel[facility], [address], [place], [place] [address] Lab Interpretation (test Abnormal code = 29925-9) [facility] Cancer IifqqiRvvorvurfqzl4406-99-42 18:46:27 Test Item Value Reference Range Interpretation Comments Neutrophil % (test code 82.6 % 42.0-66.0 H As p art of = 770-8) Differential performed at [facility], [address], [place] [address] Lymphocyte % (test code 5.8 % 24.0-44.0 L = 736-9) Monocyte % (test code = 10.3 % 2.0-7.0 H 5905-5) Eosinophil % (test code 0.3 % 1.0-4.0 L = 713-8) Basophil % (test code = 0.2 % 0.0-1.0 706-2) IGRE % (test code = 0.8 % 0.0-0.4 H IGRE % c ount includes 42240-7) Metamyelocytes, Myelocytes, and Promyelocytes. As part of Differe ntial performed at [facility], [facility], [place] [address] Neutrophil Abs (test 8.79 K/uL 1.70-7.30 H code = 751-8) Lymphocyte Abs (test 0.62 K/uL 1.00-4.80 L code = 731-0) Monocyte Abs (test code 1.09 K/uL 0.08-0.70 H = 742-7) Eosinophil Abs (test 0.03 K/uL 0.04-0.40 L code = 711-2) Basophil Abs (test code 0.02 K/uL 0.00-0.10 = 704-7) IG Abs (test code = 0.08 K/uL 0.00-0.04 H 50771-2) Lab Interpretation Abnormal (test code = 53719-6) [facility] Cancer [place].[id number] 18:46:20 Test Item Value Reference Range Interpretation Comments WBC (test code = 10.6 K/uL 4.0-11.0 6690-2) RBC (test code = 789-8) 3.32 See_Comment L [Au tomated message] The system SystematicBytes generated this result transmitted ref erence range: 4.50 - 6 .00 M/uL. The refer ence range was not u sed to interpret this result as normal/abnor mal. Hgb (test code = 718-7) 9.6 See_Comment L As p art of CBC or as an individual orderable testi ng performed at [facility] Lab Metallurgist Helper [facility], [address], [place] [address] [Automate d message] The sy stem which generated this result transmit fernandez reference range : 14.0 - 18.0 gm/dL. T he reference range was not used to int erpret this result as normal/abnormal . Hct (test code = 31.1 % 40.0-54.0 L As part of CBC or as 4544-3) an individual orderable testi ng performed at [facility] Lab Metallurgist Helper [facility], [address], [place] [address] MCV (test code = 787-2) 94 fL 82-98 MCH (test code = 785-6) 28.9 pg 27.0-31.0 MCHC (test code = 30.9 See_Comment L [Automate d message] 786-4) The system [employer] generated this result transmitted ref erence range: 31.0 - 3 6.0 gm/dL. The refe rence range was not u sed to interpret this result as normal/abnor mal. RDW-SD (test code = 52.7 fL 35.1-46.3 H 48150-8) RDW-CV (test code = 15.5 % 12.0-15.5 788-0) Platelet count (test 357 K/uL 140-440 As part of CBC or as code = 777-3) an individual orderable testi ng performed at [facility] Lab Metallurgist [facility], [address], [place] [address] MPV (test code = 9.4 fL 4.0-10.4 21218-2) INRBC (test code = 0.0 % <=0.0 The INRBC (instrument 80022-9) NRBC) value ref lects the enumeration of nucleated red b lood cells contained in a 200uL sampleof whole blood analyzed by the instrument. Thi s value maydiffer from the NRBC value reported in a m anual differential,wh ich is based on a 100 cell differential. A s part of CBC testing performed at [facility] Lab Metallurgist Helper [address], [place], [place] [address] Lab Interpretation Abnormal (test code = 64741-2) [facility] CenterFungus Culture w/Xkyqb3143-46-60 22:41:55 Test Item Value Reference Range Interpretation Comments Final Report (test No fungus isolated at 4 code = 8488) weeks. Path Review - Fungus Culture yield may be (test code = 8479) affected by sample quality, prior treatment, and transportation conditions. The results have been reviewed and electronically signed by Pathologist:Olinda Henry MD, PhD #[id number] Calcofluor Stain No Fungi seen in direct (test code = 8925) smearTest performed by fluorescent stain methodology. MARIAM (test code = MARIAM) Cultures are held for 4 weeks before finalization. [facility] Center[facility] Laboratory Add-On Test 2022-04-14 22:39:56 Test Item Value Reference Range Interpretation Comments Ordered (test code Test Added TEst adde d to [facility] = 6568) [facility] accession [id number]. 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:51 PM ANESTHESIA DIRECTOR by rhuff Test Needed (test ferritin, TIBC, code = 7604) iron [facility] CenterUrine Vfdyahz9263-56-67 01:53:28 Test Item Value Reference Range Interpretation Comments Final Report (test code 10 - 50,000 cfu/ml A = 8488) Providencia rettgeriFor susceptibility refer to Culture [id number] Path Review - Urine The results have been A (test code = 8483) reviewed and electronically signed by Pathologist:MOE DALTON MD #[id number] Lab Interpretation Abnormal (test code = 20502-1) [facility] CenterFibrinogen2023-02-01 20:32:57 Test Item Value Reference Range Interpretation Comments Fibrinogen (test code 737 mg/dL 214-503 H No Saray t Present = 3255-7) MARIAM (test code = MARIAM) This lab cannot be scheduled at the following locations due to collection/procce ssing restrictions: [facility] and [facility]. Lab Interpretation Abnormal (test code = 42346-1) [facility] CenterCOVID-19 (SARS-CoV-2)Skifuheeusjb-JZ1684-11-30 22:17:58 Test Item Value Reference Range Interpretation Comments COVID19 Not Detected Not Detected (SARS-CoV-2) (test code = 06122-7) COVID19 SARS Inpatient Indication (test Admission code = 14196) Covid 19 Comment See Note The elke S ARS-CoV-2 (test code = [place] [address]) use on the osito s Loren System is a kerry l-time RT-PCR assay in tended for the qualita tive detection of SARS-CoV-2 (COV ID-19) viral RNA in nasopharyngeal swabs from either individuals makayla pected of COVID-19 by their healthcare prov ider or from any individual, inc luding individuals wit hout symptoms or oth er reasons to susp ect COVID-19. A fac t sheet for patie nts provided by the lighting director ([employer]) can be rev iewed at: https://www.fda .gov/m edia/572438/claudia nload. A fact sheet fo r Health Care pro viders is provided by the lighting director ([employer]) and can be reviewed at: https://www.fda .gov/m edia/463574/claudia nload Results must be interpreted wit hin the context of all relevant clinic al and laboratory find ings and should not form the sole basis for a diagnosis or treatment decis ion. Positive result s do not rule out bacterial infec tion or co-infection with other viruses. Negative result s do not preclude SARS-CoV-2 infe ction and must be com bined with clinical observations, p atient history, and/or epidemiological information. Th is assay has been authorized by t FDA for use only un allegra Emergency Use Authorization ( EUA) in laboratories that have been CLIA-certified to perform moderate-comple xity and high-comple xity tests. The Microbiology Laboratory at [facility], [place], CLIA Accreditation #[id number] and CAP Accreditation #[id number], verif ied the performance characteristics of this assay. Int ernal controls are ed to monitor all sta ges of the test proces s. [facility] Center[facility]esium [id number] 21:53:21 Test Item Value Reference Range Interpretation Comments Magnesium (test code = 41531-2) 2.5 mg/dL 1.6-2.6 [facility] CenterPhosphorus [id number] 21:53:19 Test Item Value Reference Range Interpretation Comments Phosphorus (test code = 2777-1) 3.3 mg/dL 2.5-4.5 [facility] CenterCOVID-19 (SARS-CoV-2) PCR- Asymptomatic [id number] 07:00:56 Test Item Value Reference Range Interpretation Comments COVID19 (SARS Not Detected Not Detected CoV-2) Result (test code = ____This test i s a 34715-2) qualitative reverse-transcr iptase polymerase seabstian n reaction (RT-PC R) developed for t Arianna ELKE 680 0 system and inte nded for qualitative detection of SA RS CoV-2 RNA in nasopharyngeal and oropharyngeal s wab specimens colle cted from any indivi duals, including those suspected of CO VID-19 by their health care provider, and t hose without symptom s or other reasons t o suspect COVID-1 9. A fact sheet for patients provid ed by the manufacture r ([employer]) c an be reviewed at:https://www. fda.go v/media/469620/ downlo ad. A fact shee t for Health Care pro viders is provided by the lighting director ([employer]) and can be reviewed at: https://www.fda .gov/m edia/355812/claudia nload Results must be interpreted wit hin the context of all relevant clinic al and laboratory find ings and should not form the sole basis for a diagnosis or treatment decis ion. Positive result s do not rule out bacterial infec tion or co-infection with other viruses. Negative result s do not rule out SARS-CoV-2 and must be combined wit h clinical observations, p atient history, and/or epidemiological information. "Presumptive Positive" resul ts are due to partial amplification o f SARS-CoV-2 targ ets and indicates l ow amounts of viru s present in the specimen at or near the limit of detection. Regardless, individuals wit h "Presumptive Positive" resul ts should be manag ed per institutional guidelines as individuals pos itive for SARS-CoV-2 virus, including use o f appropriate inf ection control protoco ls. Internal contro ls are included to ass ess for possible amplification inhibitors. If inhibition is detected, testi ng is repeated and if inhibition is confirmed the specimen is res ulted as "Invalid". W hen an "Invalid" resul t occurs, it is recommended to wait 3 days before submitting a ne w specimen for te sting if clinically indicated. This assay has been approv ed by the FDA for use only under Emergency Use Authorization ( EUA) in laboratories that have been CLIA-certified to perform moderate-comple xity and high-comple xity tests. The performance characteristics of this assay were verified by the Microbiology Laboratory at [facility], [place], CLIA Accreditation # : [id number] and CAP Accreditation # : [id number]. COVID19 SARS MODEL SET ARTIST Swab Source (test code = 79572) COVID19 SARS Pre-Out of OR Indication (test Procedure code = 60567) [facility] [place] [id number] 22:00:04 Test Item Value Reference Range Interpretation Comments Potassium Lvl 4.8 See_Comment [Automated (test code = message] The sy stem 2823-3) which generated this result transmitted reference range : 3.5 - 5.1 mEq/L . The reference r montse was not used to interpret this result as normal/abnormal . MARIAM (test code = After kayexalate MARIAM) [facility] CenterProtein/Creatinine Ratio Urine 2021-08-19 16:58:41 Test Item Value Reference Range Interpretation Comments UTP Ran (test code = 14 mg/dL Normal range not 2888-6) available for collections les s than 24 hours i n duration. U Creatinine (test code 27.7 mg/dL 40.0-278.0 L The reference range = 2161-8) listed is for f irst morning urine collection. U Prot/Creat (test code 0.51 g/g <=0.14 H = 7805) Lab Interpretation Abnormal (test code = 74163-9) [facility] CenterLipase [id number] 16:42:35 Test Item Value Reference Range Interpretation Comments Lipase Lvl (test code 39 U/L 13-60 Testin g Performed at [facility] = 3040-3) [facility], [address], [facility] [place] [address] [facility] CenterAmylase [id number] 16:42:34 Test Item Value Reference Range Interpretation Comments Amylase Lvl (test code 100 U/L 28-100 Testi ng Performed at [facility] = 1798-8) [facility], [address], [place] [address] [facility] CenterPOC [id number] 14:04:03 Test Item Value Reference Range Interpretation Comments POC Crea (test 1.1 mg/dL 0.6-1.3 Medications, code = 56382-8) especially h ydroxyurea or supplements, such as ascorbate, c an interfere with test results causing a falsely and significantly h igher result than exp ected. If a problem is suspected with a patient's resul t, a sample should b e sent to the laborato for confirmatory te sting. Method descript ion: The i-STAT is a n analyzer used f or in vitro quantific ation of various anal ytes in whole blood. Th e device uses a s rodri disposable cart ridge which contains microfabricated sensors, a emperatriz bration solution, fluid ics system, and a w aste chamber. Each t est cartridge conta ins chemically sens itive biosensors on a silicon chip th at are configured to p erform specific tests. The microfabricated sensors measure analyte concent ration by an electroch emical assay. POC eGFR-AA (test 77 See_Comment Normal eGF R >= 60 code = 60485-3) mL/min/1.73 m2 The eGFR is calcula fernandez using the CKD-E PI equation. The e GFR declines with a ge. eGFR <60 mL/min /1.73 m2 is considere d as "decreased" Thi s equation should only be used for pat ients 18 and older. According to National Kidney Foundation's dney Disease Outcome Quality Initiat tadeo (KDOQI) classif ication and 2012 Kidney Disease Improvi ng Global Outcomes (KDIGO) Clinica l Practice Guidel ine, the stage of CK D should be categ orized based on estima fernandez GFR. Stage Desc ription GFR mL/min/1.73 m21 Kidney damage w ith normal or high GFR >=902 Kidney da mage with mild decre ase in GFR 60-893a Mil d to moderate decrea se in GFR 45-593b Mod erate to severe decre ase in GFR 30-444 Marion re decrease in GFR 15-295 Kidney failure <15 (or dialysis) [Auto mated message] The sy stem which generated this result transmit fernandez reference range : >=60 mL/min/1.73 m2. The reference range was not used to int erpret this result as normal/abnormal . POC eGFR-SANTOS (test 66 See_Comment Normal eG FR >= 60 code = 62842-1) mL/min/1.73 m2 The eGFR is calcula fernandez using the CKD-E PI equation. The e GFR declines with a ge. eGFR <60 mL/min /1.73 m2 is considere d as "decreased" Thi s equation should only be used for pat ients 18 and older. According to e National Kidney Foundation's dney Disease Outcome Quality Initiat tadeo (KDOQI) classif ication and 2012 Kidney Disease Improvi ng Global Outcomes (KDIGO) Clinica l Practice Guidel ine, the stage of CK D should be categ orized based on estima fernandez GFR. Stage Desc ription GFR mL/min/1.73 m21 Kidney damage w ith normal or high GFR >=902 Kidney da mage with mild decre ase in GFR 60-893a Mil d to moderate decrea se in GFR 45-593b Mod erate to severe decre ase in GFR 30-444 Marion re decrease in GFR 15-295 Kidney failure <15 (or dialysis) [Automated mess age] The system SystematicBytes generated this result transmitted ref erence range: >=60 mL/min/1.73 m2. The reference range was not used to int erpret this result as normal/abnormal . POC Clean Dev 2 (test code = 6672) Performing Lab [facility] (test code = [facility] [address]) Clinical Lab, [address], [place], [place] [address]; Manager Ed: Jewell Bae MD [facility] CenterHemoglobin [id number] 17:03:24 Test Item Value Reference Range Interpretation Comments A1C (test code = 5.2 % 4.3-5.6 HbA1c value s >=6.5% are 4548-4) diagnostic of d iabetes mellitus.Diagno sis should be confirmed by repeat testing.Therape utic Action suggested: >8.0 % HbA1c; Goal oftherapy: <7.0% HbA1c [facility] CenterBlood [id number] 14:06:28 Test Item Value Reference Range Interpretation Comments Final Report (test No growth code = 8488) Path Review - Immunity and antibiotic Bottle/Isolator use may render culture (test code = 8499) negative. Ongoing infection requires repeat culture.The results have been reviewed and electronically signed by Pathologist:MOE DALTON MD #[id number] MARIAM (test code = Short draw may invalidate MARIAM) quantitative blood culture results.06/15/2021 11:53:08 AM CDT [facility] CenterRespiratory Viral Panel + COVID-19, Nasopharyngeal [id number] 02:47:05 Test Item Value Reference Range Interpretation Comments Adenovirus (test code = Not Detected Not Detected 4748) Coronavirus 229E (test Not Detected Not Detected code = 5349) Coronavirus HKU1 (test Not Detected Not Detected code = 5350) Coronavirus NL63 (test Not Detected Not Detected code = 5351) Coronavirus OC43 (test Not Detected Not Detected code = 5352) COVID19 (SARS-CoV-2) Not Detected Not Detected (test code = 57019-1) Human Metapneumovirus Not Detected Not Detected (test [...] Detected Not Detected Parapertussis (test code = 24344) Bordetella pertussis Not Detected Not Detected (test [...] including SARS-CoV-2, from a single nasopharyngeal swab (LOOPER OPERATOR) specimen obtained from individuals suspected of respiratory tract infections, including COVID-19. Results must be interpreted within the context of all relevant clinical and laboratory findings and should not form the sole basis for a diagnosis or treatment decision. Positive results do not rule out coninfection with other organisms. Negative results in the setting of a respiratory illness may be due to infection with pathogens that are not detected by this panel, or a lower respiratory tract infection that may not be detected by an LOOPER OPERATOR specimen. Internal controls are used to monitor all stages of the test process and assess for possible amplification inhibitors. If inhibition is detected, testing is repeated and if inhibition is confirmed the specimen is resulted as "Invalid". When an "Invalid" result occurs, it is recommended to wait 3 days before submitting a new specimen for testing if clinically indicated. This assay has been approved by the FDA for use in laboratories that have been CLIA-certified to perform moderate-complexity and high-complexity tests. The Microbiology Laboratory at [facility], CLIA Accreditation #[id number] and CAP Accreditation #[id number], verified the performance characteristics of this assay. Microbiology Laboratory at [facility] performs the assay using the WinDensity System. [facility] CenterPO Chem 8 without Hemoglobin and [id number] 17:38:02 Test Item Value Reference Range Interpretation Comments POC NA (test code = 147 See_Comment H [Automa fernandez message] 57404-2) The system SystematicBytes generated this result transmitted ref erence range: 138 - 14 6 mEq/L. The refe rence range was not u sed to interpret this result as normal/abnor mal. POC K (test code = 3.4 See_Comment L Method de scription: 06921-2) The i-STAT is a n analyzer used f or in vitro quantific ation of various anal ytes in whole blood. The device uses a s rodri disposable cart ridge which contains microfabricated sensors, a calibration zayra ution, fluidics system , and a waste chamber . Each test cartridge contains chemic ally sensitive biose nsors on a ZUGGI ip that are config ured to perform spec ific tests. The microfabricated sensors measure analyte concent ration by an electroch emical assay. [Automat ed message] The sy stem which generated this result transmit fernandez reference range : 3.5 - 4.9 mEq/L. Th e reference range was not used to int erpret this result as normal/abnormal . POC CL (test code = 117 See_Comment H [Automa fernandez message] 2068-05) The system SystematicBytes generated this result transmitted ref erence range: 98 - 109 mEq/L. The refe rence range was not u sed to interpret this result as normal/abnor mal. POC VTCO2 (test code 16 See_Comment L [Autom ated message] = 2026-03) The system [employer]Bytes generated this result transmitted ref erence range: 24 - 29 mEq/L. The reference r montse was not used to interpret this result as normal/abnor mal. POC Anion Gap (test 19 mmol/L 10-20 code = 42022) POC BUN (test code = 21 mg/dL 10-31 6299-2) POC Crea (test code 0.9 mg/dL 0.6-1.3 Medicati ons, = 04966-3) especially hydroxyurea or supplements, mojica ch as ascorbate, can interfere with test results causing a falsely and significantly h igher result than exp ected. If a problem is suspected with a patient's resul t, a sample should b e sent to the laborato for confirmatory te sting. Method descript ion: The i-STAT is a n analyzer used f or in vitro quantific ation of various anal ytes in whole blood. The device uses a s rodri disposable cart ridge which contains microfabricated sensors, a calibration zayra ution, fluidics system , and a waste chamber . Each test cartridge contains chemic ally sensitive biose nsors on a ZUGGI ip that are config ured to perform spec ific tests. The microfabricated sensors measure analyte concent ration by an electroch emical assay. POC eGFR-AA (test 98 See_Comment Normal eGF R >= 60 code = 55254-1) mL/min/1.73 m2 The eGFR is calcula fernandez using the CKD-E PI equation. The e GFR declines with a ge. eGFR <60 mL/min /1.73 m2 is considere d as "decreased" Thi s equation should only be used for pat ients 18 and older. According to th e National Kidney Foundation's Ki dney Disease Outcome Quality Initiat tadeo (KDOQI) classification and 2012 Kidney Dis ease Improving Globa l Outcomes (KDIGO ) Clinical Practi ce Guideline, the stage of CKD should b e categorized bas ed on estimated GFR. Stage Description GFR mL/min/1.73 m21 Kidney damage w ith normal or high GFR >=902 Kidney da mage with mild decre ase in GFR 60-893a Mil d to moderate decrea se in GFR 45-593b Mod erate to severe decre ase in GFR 30-444 Marion re decrease in GFR 15-295 Kidney f ailure <15 (or dialysi s) [Automated mess age] The system SystematicBytes generated this result transmitted ref erence range: >=60 mL/min/1.73 m2. The reference range was not used to int erpret this result as normal/abnormal . POC eGFR-SANTOS (test 84 See_Comment Normal eG FR >= 60 code = 99066-3) mL/min/1.73 m2 The eGFR is calcula fernandez using the CKD-E PI equation. The e GFR declines with a ge. eGFR <60 mL/min /1.73 m2 is considere d as "decreased" Thi s equation should only be used for pat ients 18 and older. According to th e National Kidney Foundation's Ki dney Disease Outcome Quality Initiat tadeo (KDOQI) classification and 2012 Kidney Dis ease Improving Globa l Outcomes (KDIGO ) Clinical Practi ce Guideline, the stage of CKD should b e categorized bas ed on estimated GFR. Stage Description GFR mL/min/1.73 m21 Kidney damage w ith normal or high GFR >=902 Kidney da mage with mild decre ase in GFR 60-893a Mil d to moderate decrea se in GFR 45-593b Mod erate to severe decre ase in GFR 30-444 Marion re decrease in GFR 15-295 Kidney f ailure <15 (or dialysi s) [Automated mess age] The system SystematicBytes generated this result transmitted ref erence range: >=60 mL/min/1.73 m2. The reference range was not used to int erpret this result as normal/abnormal . POC Glucose (test 96 mg/dL 70-99 Medication s, code = 07957-3) especially hydroxyurea, ca n interfere with test results causing a falsely and significantly h igher result than exp ected. If a problem is suspected with a patient's resul t, a sample should b e sent to the laborato ry for confirmatory te sting. POC Ion Ca (test 0.94 mmol/L 1.12-1.32 L code = 87191-0) POC Sample Type Venous (test code = 6690) POC Clean Dev (test Yes code = 6672) Performing Lab (test MDA Main Main Ca mpus code = 84879) [facility] Cli nical Lab, [address], [place] [address]; Manager Ed: Jewell Bae MD Lab Interpretation Abnormal (test code = 79025-6) [facility] Cancer [id number] 16:18:55 Test Item Value Reference Range Interpretation Comments CRP (test code = 75.95 mg/[place] [address]-1) CRP assay are a s follows: Reference range s when used to assess cardi ac risk: <1.00 mg/L Low cardiovascular risk 1.00-3.00 mg/L Average cardiovascular risk >3.00 mg/L High cardi ovascular risk.Reference ranges when used to assess inflammatory re sponses: Less than or eq ual to 10.00 mg/L. [facility] CenterProcalcitonin2022 16:07:14 Test Item Value Reference Range Interpretation Comments Procalcitonin (test 0.74 ng/mL <=0.08 H Procalci tonin > 2.00 code = 65261-2) ng/mL: Proca lcitonin levels above 2. 00 ng/mL are highl y suggestive of a high risk for system atic bacterial infec tion/ severe sepsis a nd/or septic shock. Procalcitonin < 0.50 ng/mL: Procalci tonin levels below 0. 50 ng/mL are at lo w risk for progression to severe sepsis a nd/ or septic shock. Procalcitonin ( ProCT) between 0.15 an d 2.0 ng/mL do not ex clude infection, sukhdev use localized infec tions (without system ic signs) may be associated with such low levels. Res ults greater than 40 0 ng/mL may not b e reliable due to the matrix effect w ith extended diluti on as it exceeds the lighting director's recommended ashford it. Caution should be exercised when interpreting mojica ch values and done in conjunction wit h clinical contex t. Lab Interpretation Abnormal (test code = 98889-9) [facility] CenterVB [id number] 15:27:02 Test Item Value Reference Range Interpretation Comments V Lactate (test code = 2519-7) 1.7 mmol/L 0.5-1.6 H Lab Interpretation (test code = Abnormal 93389-9) [facility] [id number] 17:39:52 Test Item Value Reference Range Interpretation Comments Sed Rate (test code = 90 See_Comment H [Auto mated message] 2537-7) The system whic h generated this result transmitted ref erence range: 0 - 9 mm /hr. The reference r montse was not used to interpret this result as normal/abnor mal. Lab Interpretation (test Abnormal code = 30479-5) [facility] Cancer [id number] 16:50:07 Test Item Value Reference Range Interpretation Comments ACTH (test 8 pg/mL 7-63 Results greater than code = 2141-0) 1826 pg/mL ma y not be reliable due to matrix effect w ith extended diluti on as it exceeds the lighting director's recommended ashford it. ACTH reference intervals are established for the morning hours f rom 7-10 am. Due to the circadian rhyth m of ACTH levels in plasma, the giovanny ple collection time must be noted. Cauti on should be exerc ised when interpreti ng such values and done in conjunction with clinical contex t. MARIAM (test code This lab cannot be = MARIAM) scheduled at the following locations due to collection/proccess ing restrictions:[facility] DIAG LAB [facility] DIAG LAB [facility] DIAG LAB [facility] CenterCortisol, [id number] 16:07:12 Test Item Value Reference Range Interpretation [...] (2.5 - 11.9) Testing Perform ed at [facility] Lab [facility], [address], [address], [place] [address] [Automated mess age] The system which ge nerated this result tra nsmitted reference range : 4.80 - 19.50 mcg/dL. T he reference range was not used to interpr et this result as arleen l/abnormal. [facility] CenterTISSUE [id number] 15:08:00 Surgical Pathology Report Case: [id number] Authorizing Provider: Reece Joseph MD Collected: 11/03/2019 09:23 PM Ordering Location: [facility] PERIOPERATIVE Received: 11/06/2019 08:18 AM SERVICES Pathologist: Doyle Frost MD Specimen: Bladder Tumor, TRIGONE AND BLADDER NECK TUMOR URINARY BLADDER, TRIGONE AND NECK TUMOR, TURBT: - UROTHELIAL CARCINOMA, HIGH GRADE (WHO GRADE 3), INVASIVE INTO MUSCULARIS PROPRIA - POSITIVE FOR LYMPHOVASCULAR SPACE INVASION Signing Pathologist Direct Phone Line: [phone] signed by Doyle Frost MD on 11/07/2019 at 3:08 PMUrothelial carcinoma in situ is also identified. One prostatic chip is noted with benign glands.[id number] hematuria Bladder, trigone and neckA. Received in formalin in a container labeled with the patient's name, medical record number and "bladder tumor" is an aggrigate of multiple, baird-pink, irregular nodular tissues admixed with blood (4 x 4 x 1.5 cm) which are submitted in toto in A1-A 11.KEYA Durán PA (ASCP)PerformedFL, FLUORO, NON-SPECIFIC, UP TO 1 [id number] 07:45:55Reason for exam:->cysto with stent placementFluoroscopic unit [...] S NOT APPLICABLE FOR DIALYSIS PATIEN TS. Shop Laborer ID - PIAYA LCBC (HEMOGRAM ONLY)2019-11-06 05:41:00 [...] (BEAKER) (test code = 413) BASIC METABOLIC [id number] 14:05:00 Test Item Value Reference Range Interpretation [...] S NOT APPLICABLE FOR DIALYSIS PATIEN TS. Shop Laborer ID - TONYA CCBC W/PLT COUNT & AUTO [id number] 13:48:00 Test Item Value Reference Range Interpretation [...] = 2801) CBC W/PLT COUNT & AUTO [id number] 07:39:00 Test Item Value Reference Range Interpretation [...] (BEAKER) (test code = 2801) BASIC METABOLIC [id number] 07:13:00 Test Item Value Reference Range Interpretation [...] S NOT APPLICABLE FOR DIALYSIS PATIEN TS. Shop Laborer ID - PIAYA LBASIC METABOLIC [id number] 05:42:00 Test Item Value Reference Range Interpretation [...] S NOT APPLICABLE FOR DIALYSIS PATIEN TS. Shop Laborer ID - JUAN MCBC W/PLT COUNT & AUTO [id number] 05:07:00 Test Item Value Reference Range Interpretation [...] PERCENT (BEAKER) (test code = 2801) CT, [id number] 01:57:00Unlisted Reason for Exam - Click Yes and Enter Reason Below->NoFINAL REPORT EXAM: CT of the abdomen and pelvis, without contrast CLINICAL HISTORY: Hematuria, unknown cause TECHNIQUE: CT of the abdomen and pelvis was performed without the intravenous administration of contrast. This exam was performed according to our departmental dose optimization program which includes automated exposure control, adjustment of the mA and/or kV according to patient's size and/or use of iterative reconstructive [...] pelvic lymphadenopathy.SOFT TISSUES: Within normal limits.BONES: Degenerative changes of the visualized spine. Grade 1 retrolisthesis at L2/L3. Left L5 pars interarticularis defect. IMPRESSION:Small urinary bladder hematoma. Diffuse mural thickening of the urinary bladder, which may be reactive or related to cystitis or malignancy. Urologic evaluation is recommended.Mild to moderate bilateral hydroureteronephrosis, likely due to the thickened urinary bladder.Small pelvic free fluid, mildlyhyperdense and may be hemorrhagic. Signed: Lee Perez [facility] Verified Date/Time: 11/03/2019 01:57:16 -COV2/RT-PCR ([facility])2019-11-02 11:07:00 Test Item Value Reference Range Interpretation Comments SARS-COV2/RT-PCR (test Negative Not Detected, Negative, code = 9075892) See external report for linked test SARS-COV-2 PERFORMING LAB [facility] (test code = 8108192) Negative result for this test determines that SARS-CoV-2 RNA was not present in the specimen above the Limit of Detection (LOD). However, Negative results do not preclude SARS-CoV-2 infection and should not be used as the sole basis for treatment or patient management decisions. Negative results must be combined with clinical observations, patient history, and [...] a nasopharyngeal swab specimen collected from individuals suspected of COVID-19 by their healthcare provider.This test [...] justifying the authorization of the emergency use ofin vitro diagnostic tests for detection and/or diagnosis of COVID-19 is terminated under Section 564(b)(2) of the Act or the EUA is revoked under Section 564(g) of the Act.Fact Sheet for Healthcare Prov iders:https://www.[employer]/sites/default/files/product/documents/Fact_Sheet_HC _Mrczbymsz_Uknb_MONS-IyI-8.pdfFact Sheet for Healthcare Patients:https://www.[employer]/sites/default/files/product/docume nts/Kxkw_Nztde_Hjncidpd_Jybl_TXGD-OuS-5.pdfPerforming Laboratory:[address] [place], [place] [address]GMDVR METABOLIC PANEL 2019-11-02 07:34:00 Test Item Value [...] S NOT APPLICABLE FOR DIALYSIS PATIEN TS. Shop Laborer ID - NTPCBC W/PLT COUNT & AUTO [id number] 07:22:00 Test Item Value Reference Range Interpretation [...] (BEAKER) (test code = 2801) BASIC METABOLIC [id number] 00:07:00 Test Item Value Reference Range Interpretation [...] S NOT APPLICABLE FOR DIALYSIS PATIEN TS. Shop Laborer ID - SANTY WPROTHROMBIN [id number] 23:55:00 Test Item Value Reference Range Interpretation Comments PROTIME (BEAKER) (test code = 14.5 seconds 11.9-14.2 H 759) INR (BEAKER) (test code = 370) 1.16 <=5.90 Effective 08/03/2018: PT Reference Range ChangeNew: 11.9-14.2 Previous: 11.7- 14.7RECOMMENDED COUMADIN/WARFARIN INR THERAPY RANGESSTANDARD DOSE: 2.0-3.0 Includes: PROPHYLAXIS for venous thrombosis, systemic embolization; TREATMENT for venous thrombosis and/or pulmonary embolus.HIGH RISK: Target INR is 2.5-3.5 for patients wiht mechanical heart valves.CBC W/PLT COUNT & AUTO [id number] 23:43:00 Test Item Value Reference Range Interpretation [...]
[2022-05-01 15:56] LABS: Albumin 1.7 g/dL (3.4-5.0); Bilirubin Direct 0.1 mg/dL (0-0.2); Bilirubin Total 0.3 mg/dL (0.2-1.0); Protein, Total 5.4 g/dL (6.4-8.2)
[2022-05-01 16:00] LABS: Troponin High Sensitivity 162.2 pg/mL (<58.9)
--- NOTE | 2022-05-01 16:01 | ER ---
Nurse's Notes [facility] Name: Mary Bullock Age: 72 yrs Sex: Male : 1950 Arrival Date: 05/01/2022 Time: 14:29 Bed 5 Private MD: Diagnosis: Pneumonia due to other specified bacteria-BILATERAL LOWER LOBE;Fever, unspecified;Dyspnea;Hypoxemia;Neoplasm of uncertain behavior of bladder-METASTATIC;Hypotension, unspecified Presentation: 05/01 14:46 Chief complaint: Chief complaint: EMS states: pt woke up today with SOB, O2 sat in 70's iw on RA , pt c/o productive cough for a few days, temp was 103 on scene, pt has hx of bone cancer , luc nephrostomy tubes in place, doyle in place, O2 sat up to 92% on NRB. 14:46 Coronavirus screen: Client presents with at least one sign or symptom that may indicate iw coronavirus-19. Ebola Screen: Patient negative for fever greater than or equal to 101.5 degrees Fahrenheit, and additional compatible Ebola Virus Disease symptoms Patient denies exposure to infectious person. Patient denies travel to an Ebola-affected area in the 21 days before illness onset. No symptoms or risks identified at this time. Initial Sepsis Screen: Does the patient meet any 2 criteria? RR > 20 per min. HR > 90 bpm. Does the patient have a suspected source of infection? Yes: Productive cough/pneumonia. Risk Assessment: Do you want to hurt yourself or someone else? Patient reports no desire to harm self or others. Onset of symptoms was May 01, 2022. 14:46 Method Of Arrival: EMS: [facility] iw 14:46 Acuity: FERNANDA 2 iw Triage Assessment: 18:54 General: Appears uncomfortable, ill. kr3 18:54 General: Behavior is calm, cooperative. kr3 18:55 Respiratory: Onset: The symptoms/episode began/occurred. kr3 18:55 Respiratory: the patient has moderate shortness of breath. kr3 Historical: - Allergies: 14:49 PENICILLINS; iw - PMHx: 14:49 Hypertension; neuropathy; overactive bladder; paraplegic; Polio; tremors; iw - PSHx: 14:49 Nephrostomy tube left; right leg; Tonsillectomy; iw - Immunization history:: Adult Immunizations unknown. - Social history:: Smoking status: unknown. Screenin:00 [facility] ED Fall Risk Assessment (Adult) History of falling in the last 3 months, kr3 including since admission No falls in past 3 months (0 pts) Confusion or Disorientation No (0 pts) Intoxicated or Sedated No (0 pts) Impaired Gait Yes (1 pt) Mobility Assist Device Used No (0 pt) Altered Elimination Yes (1 pt) Score/Fall Risk Level 0 - 2 = Low Risk Oriented to surroundings, Maintained a safe environment, Educated pt \T\ family on fall prevention, incl call for assistance when getting out of bed, Assessed \T\ reinforced patient's understanding of fall precautions, Hourly rounding (assess needs \T\ fall precautionary measures) done. Abuse screen: Denies threats or abuse. Nutritional screening: No deficits noted. Tuberculosis screening: No symptoms or risk factors identified. Assessment: 16:30 General: Appears uncomfortable, ill, Behavior is calm, cooperative, appropriate for kr3 age. Pain: Complains of pain in buttocks. Neuro: Level of Consciousness is awake, alert, obeys commands, Oriented to person, place, time, situation. Cardiovascular: Patient's skin is warm and dry. Respiratory: Airway is patent Respiratory effort is even, labored. Respiratory: Airway is patent Respiratory effort is even, labored. GI: Abdomen is flat, non-distended. : No signs and/or symptoms were reported regarding the genitourinary system. EENT: No signs and/or symptoms were reported regarding the EENT system. Derm: Derm: Wound noted coccyx and gluteal cleft. Musculoskeletal: Range of motion: limited in left hip, left knee, left ankle, right hip, right knee and right ankle. 18:54 Cardiovascular: Rhythm is sinus tachycardia. kr3 18:54 Respiratory: Breath sounds are diminished bilaterally. kr3 Vital Signs: 14:46 BP 119 / 75; Pulse 135; Resp 28 S; Pulse Ox 92% on Non-rebreather mask; iw 14:54 BP 95 / 56; Pulse 133; Resp 30; Temp 98.4; Pulse Ox 90% on Non-rebreather mask; Weight kr3 74.84 kg (R); 15:22 Temp 98.3; kr3 ED Course: 14:29 Patient arrived in ED. eb 14:49 Triage completed. iw 14:49 Arm band placed on. iw 14:50 Huy Taveras MD is Attending Physician. michelle 14:52 Nicole Martin, RONN is Primary Nurse. iw 15:05 First set of blood cultures drawn. Inserted saline lock: 20 gauge in left hand, using iw aseptic technique. 15:[address] Taveras with Amber from the [facility] transfer center at eb the request of the patients family at bedside. 15:14 COVID-19/FLU A+B Sent. kr3 15:23 per Amber from the [facility] transfer center they will have to decline the patient eb in transfer/ they are at capacity and are not taking any transfers at this time. 15:25 Inserted saline lock: 20 gauge in left antecubital area, using aseptic technique. Blood iw collected. 15:30 initiated a transfer with MIHAI James from the [facility]. eb 15:33 CT Chest Abdomen Pelvis W/O Contrast In Process Unspecified. EDMS 15:50 Chest Single View XRAY In Process Unspecified. EDMS 15:50 connected the dye range tender qualification engineer for [facility] with Dr. Taveras for patient eb transfer consultation. 16:24 administrative approval given by MIHAI James/ patient has been accepted to to [facility] [address] [facility] 7210/ Dr. Flores has accepted the patient in transfer/ report to be called to [phone]. 17:00 Bed in low position. Call light in reach. Side rails up X 1. kr3 17:00 No provider procedures requiring assistance completed. Patient transferred, IV remains kr3 in place. Administered Medications: 15:15 Not Given (given [facility] [employer]): Tylenol 1000 mg PO once jl7 16:27 Drug: fentaNYL (PF) 25 mcg Route: IVP; Site: right antecubital; ll1 18:56 Follow up: Response: No adverse reaction kr3 16:27 Drug: Zofran (Ondansetron) 4 mg Route: IVP; Site: right antecubital; ll1 18:56 Follow up: Response: No adverse reaction kr3 16:28 Drug: NS 0.9% 1000 ml Route: IV; Rate: 1 bolus; Site: right antecubital; ll1 18:57 Follow up: Response: No adverse reaction; IV Status: Completed infusion; IV Intake: kr3 1000ml 16:28 Drug: Pepcid (famotidine) 20 mg Route: IVP; Site: right antecubital; ll1 18:57 Follow up: Response: No adverse reaction kr3 16:28 Drug: Cefepime 1 grams Route: IVPB; Rate: 200 ml/hr; Infused Over: 30 mins; Site: right ll1 antecubital; 18:56 Follow up: Response: No adverse reaction; IV Status: Completed infusion; IV Intake: kr3 1000ml 16:28 Drug: Xopenex (levalbuterol) 1.25 mg Route: Inhalation; ll1 18:56 Follow up: Response: No adverse reaction kr3 16:28 Drug: AtroVENT (ipratropium) Aerosol 0.5 mg Route: Inhalation; ll1 18:56 Follow up: Response: No adverse reaction kr3 17:20 Drug: vancoMYCIN 1 grams Route: IVPB; Infused Over: 2 hrs; Site: right antecubital; kr3 18:56 Not Given (Patient Refused): fentaNYL (PF) 25 mcg IVP once kr3 Medication: 18:55 VIS not applicable for this client. kr3 Intake: 18:56 IV: 1000ml; Total: 1000ml. kr3 18:57 IV: 1000ml; Total: 2000ml. kr3 Outcome: 16:01 ER care complete, transfer ordered by . michelle 17:53 Patient left the ED. kr3 18:54 Transferred by ground EMS to [facility]. kr3 18:54 Condition: stable 18:54 Instructed on the need for transfer. Signatures: Dispatcher [employer] EDHuy Katz MD MD cha Williams, Irene, RN RN iw Margo Dangelo Lynsay, RN RN ll1 Hanh Grier RN RN sugar3 Laura Melendez RN jl7 Corrections: (The following items were deleted from the chart) 14:49 14:46 Chief complaint: iw 15:16 14:54 BP 95 / 56; Pulse 133bpm; Resp 30bpm; Pulse Ox 90% Non-rebreather mask; kr3
--- NOTE | 2022-05-01 16:01 | EDPHYS ---
Physician Documentation [facility] Name: Mary Bullock Age: 72 yrs Sex: Male : 1950 Arrival Date: 05/01/2022 Time: 14:29 Bed 5 Private MD: ED Physician Huy Taveras HPI: 05/01 15:05 This 72 yrs old Male presents to ER via EMS with complaints of Breathing michelle Difficulty, Fever. 15:05 The patient has shortness of breath at rest, with light activity. Onset: The michelle symptoms/episode began/occurred 2 day(s) ago. Duration: The symptoms are continuous, and are steadily getting worse. The patient's shortness of breath is aggravated by coughing, supine position. Associated signs and symptoms: Pertinent positives: non-productive cough. Severity of symptoms: At their worst the symptoms were moderate in the emergency department the symptoms have improved mildly. The patient has experienced similar episodes in the past, several times. Historical: - Allergies: 14:49 PENICILLINS; iw - PMHx: 14:49 Hypertension; neuropathy; overactive bladder; paraplegic; Polio; tremors; iw - PSHx: 14:49 Nephrostomy tube left; right leg; Tonsillectomy; iw - Immunization history:: Adult Immunizations unknown. - Social history:: Smoking status: unknown. ROS: 15:07 Eyes: Negative for injury, pain, redness, and discharge, ENT: Negative for injury, michelle pain, and discharge, Neck: Negative for injury, pain, and swelling, Abdomen/GI: Negative for abdominal pain, nausea, vomiting, diarrhea, and constipation, Back: Negative for injury and pain, : Negative for injury, bleeding, discharge, and swelling, MS/Extremity: Negative for injury and deformity, Psych: Negative for depression, anxiety, suicide ideation, homicidal ideation, and hallucinations, Allergy/Immunology: Negative for hives, rash, and allergies, Endocrine: Negative for neck swelling, polydipsia, polyuria, polyphagia, and marked weight changes, Hematologic/Lymphatic: Negative for swollen nodes, abnormal bleeding, and unusual bruising. 15:07 Constitutional: Positive for body aches, chills, fatigue, fever, malaise, poor PO intake. 15:07 Eyes: Positive for 15:07 Cardiovascular: Positive for orthopnea, palpitations. 15:07 Respiratory: Positive for cough, dyspnea on exertion, pleurisy, shortness of breath, wheezing, inspiratory, expiratory. 15:07 Skin: Positive for pallor. Exam: 15:07 Head/Face: Normocephalic, atraumatic. Eyes: Pupils equal round and reactive to light, michelle extra-ocular motions intact. Lids and lashes normal. Conjunctiva and sclera are non-icteric and not injected. Cornea within normal limits. Periorbital areas with no swelling, redness, or edema. ENT: Nares patent. No nasal discharge, no septal abnormalities noted. Tympanic membranes are normal and external auditory canals are clear. Oropharynx with no redness, swelling, or masses, exudates, or evidence of obstruction, uvula midline. Mucous membranes moist. Neck: Trachea midline, no thyromegaly or masses palpated, and no cervical lymphadenopathy. Supple, full range of motion without nuchal rigidity, or vertebral point tenderness. No Meningismus. Chest/axilla: Normal chest wall appearance and motion. Nontender with no deformity. No lesions are appreciated. Abdomen/GI: Soft, non-tender, with normal bowel sounds. No distension or tympany. No guarding or rebound. No evidence of tenderness throughout. Back: No spinal tenderness. No costovertebral tenderness. Full range of motion. Skin: Warm, dry with normal turgor. Normal color with no rashes, no lesions, and no evidence of cellulitis. MS/ Extremity: Pulses equal, no cyanosis. Neurovascular intact. Full, normal range of motion. Psych: Awake, alert, with orientation to person, place and time. Behavior, mood, and affect are within normal limits. 15:07 Cardiovascular: Rate: tachycardic, actual rate is 133 bpm, Rhythm: regular, Pulses: Pulses are 4+ in bilateral radial, brachial, femoral, popliteal, posterior tibial and and dorsalis pedis arteries.. Heart sounds: normal, Edema: is not appreciated, JVD: is noted bilaterally, to 1 cm. Vital Signs: 14:46 BP 119 / 75; Pulse 135; Resp 28 S; Pulse Ox 92% on Non-rebreather mask; iw 14:54 BP 95 / 56; Pulse 133; Resp 30; Temp 98.4; Pulse Ox 90% on Non-rebreather mask; Weight kr3 74.84 kg (R); 15:22 Temp 98.3; kr3 MDM: 14:50 Patient medically screened. michelle 16:01 Differential diagnosis: Bronchitis CHF exacerbation, obstructed airway, bronchitis, michelle flu, URI, acute asthma, CHF, URI, Myocardial Infarction pneumonia, Pneumothorax pulmonary edema, reactive airway disease, Sepsis Unstable Angina. Antibiotic administration: CEFEPIME, VANCO. Differential Diagnosis: Obstructed Airway Bronchitis Influenza Upper Respiratory Infection Pharyngitis Asthma Exacerbation Viral Syndrome Pneumonia. Immunization status: Pneumococcal vaccine: within last 5 years. Influenza vaccine: within last 5 years. Data reviewed: vital signs, nurses notes, EMS record, lab test result(s), EKG, radiologic studies, CT scan, plain films. Consideration of Admission/Observation Patient was admitted/placed on observation. Escalation of care including admission/observation considered. Test considered but Not performed: X-ray: CHEST X RAY, BILATERAL PNA. Historians other than the Patient: Daughter/Son: DAUGHTERS , WELL INFORMED. Care significantly affected by the following chronic conditions: Hypertension, Cancer, POST POLIO. Counseling: I had a detailed discussion with the patient and/or guardian regarding: the historical points, exam findings, and any diagnostic results supporting the discharge/admit diagnosis, lab results, radiology results, the need to transfer to another facility, for higher level of care, [facility] does not immediately have the required specialist. 05/01 14:45 Order name: Blood Culture Adult (2) 05/01 14:45 Order name: CBC with Diff; Complete Time: 15:52 05/01 14:45 Order name: CMP; Complete Time: 15:52 05/01 14:45 Order name: Lactate w/ 2H reflex if indic.; Complete Time: 15:52 05/01 14:45 Order name: Protime (+inr); Complete Time: 15:52 05/01 14:45 Order name: Ptt, Activated; Complete Time: 15:52 05/01 14:45 Order name: Urine Microscopic Only 05/01 14:46 Order name: COVID-19/FLU A+B 05/01 15:04 Order name: LFT's [facility] 05/01 15:04 Order name: Magnesium [facility] 05/01 15:04 Order name: NT PRO-BNP [facility] 05/01 15:04 Order name: Troponin HS [facility] 05/01 15:04 Order name: Type And Screen [facility] 05/01 14:45 Order name: Chest Single View XRAY 05/01 14:45 Order name: EKG; Complete Time: 14:46 05/01 14:45 Order name: Accucheck 05/01 15:15 Order name: CT Chest Abdomen Pelvis W/O Contrast [facility] 05/01 16:36 Order name: Urine Dipstick-Ancillary [facility] 05/01 17:03 Order name: Urine Culture [facility] 05/01 14:45 Order name: Cardiac monitoring 05/01 14:45 Order name: EKG - Nurse/Tech 05/01 14:45 Order name: IV Saline Lock - Large Bore; Complete Time: 15:14 05/01 14:45 Order name: Labs collected and sent; Complete Time: 15:14 05/01 14:45 Order name: O2 Per Protocol; Complete Time: 15:14 05/01 14:45 Order name: O2 Sat Monitoring; Complete Time: 15:15 05/01 14:45 Order name: Vital Signs 05/01 15:04 Order name: IV Saline Lock; Complete Time: 15:24 [facility] Administered Medications: 15:15 Not Given (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 EMS): Tylenol 1000 mg PO once jl7 16:27 Drug: fentaNYL (PF) 25 mcg Route: IVP; Site: right antecubital; ll1 18:56 Follow up: Response: No adverse reaction kr3 16:27 Drug: Zofran (Ondansetron) 4 mg Route: IVP; Site: right antecubital; ll1 18:56 Follow up: Response: No adverse reaction kr3 16:28 Drug: NS 0.9% 1000 ml Route: IV; Rate: 1 bolus; Site: right antecubital; ll1 18:57 Follow up: Response: No adverse reaction; IV Status: Completed infusion; IV Intake: kr3 1000ml 16:28 Drug: Pepcid (famotidine) 20 mg Route: IVP; Site: right antecubital; ll1 18:57 Follow up: Response: No adverse reaction kr3 16:28 Drug: Cefepime 1 grams Route: IVPB; Rate: 200 ml/hr; Infused Over: 30 mins; Site: right ll1 antecubital; 18:56 Follow up: Response: No adverse reaction; IV Status: Completed infusion; IV Intake: kr3 1000ml 16:28 Drug: Xopenex (levalbuterol) 1.25 mg Route: Inhalation; ll1 18:56 Follow up: Response: No adverse reaction kr3 16:28 Drug: AtroVENT (ipratropium) Aerosol 0.5 mg Route: Inhalation; ll1 18:56 Follow up: Response: No adverse reaction kr3 17:20 Drug: vancoMYCIN 1 grams Route: IVPB; Infused Over: 2 hrs; Site: right antecubital; kr3 18:56 Not Given (Patient Refused): fentaNYL (PF) 25 mcg IVP once kr3 Disposition: 16:03 Critical Care:. michelle Disposition Summary: 05/01/22 16:01 Transfer Ordered Transfer Location: [facility] michelle Reason: Higher level of care michelle Condition: Serious michelle Problem: new michelle Symptoms: have improved michelle Accepting Physician: DR MONTGOMERY(05/01/22 17:53) kr3 Diagnosis - Pneumonia due to other specified bacteria - BILATERAL LOWER LOBE michelle - Fever, unspecified michelle - Dyspnea michelle - Hypoxemia michelle - Neoplasm of uncertain behavior of bladder - METASTATIC michelle - Hypotension, unspecified michelle Forms: - Medication Reconciliation Form michelle - SBAR form michelle Critical care time excluding procedures: 16:03 Critical care time: Bedside Care: 30 minutes, Consultation: 15 minutes. Total time: 45 michelle minutes Signatures: Dispatcher [employer] EDMS Huy Taveras MD MD cha Williams, Irene RN Yohana Harper RN RN ll1 Hanh Grier RN RN kr3 Laura Melendez RN jl7 Corrections: (The following items were deleted from the chart) 15:37 15:05 BASIC METABOLIC PANEL+C.LAB.BRZ ordered. EDNE EDNE 17:53 16:01 DR ULISES martinez kr3
[2022-05-01 16:03] LABS: SARS-COV-2 RT PCR NEGATIVE (NEGATIVE)
--- NOTE | 2022-05-01 16:16 | RAD REPORT ---
EXAM DESCRIPTION: CT - Chest Abd Pelvis Wo Con - 05/01/2022 3:31 pm CLINICAL HISTORY: Cough, congestion, abdominal pain COMPARISON: CT abdomen 2021 TECHNIQUE: Computed axial tomography of the chest, abdomen and pelvis was obtained. Oral contrast wa s given. IV contrast was not requested. All CT scans are performed using dose optimization technique as appropriate and may include automated exposure control or mA/KV adjustment according to patient size. FINDINGS: The evaluation of mediastinum, darnell, vessels and solid organs is limited secondary to the lack of IV contrast administration Moderate COPD. Vxjq-cl-ltzqunxn bilateral lower lobe opacities mostly pneumonia. There is a component of atelectasis as well. No mediastinal or hilar lymphadenopathy is seen. Small pleural effusions. . A pericardial effusion is not seen. Left adrenal adenoma. Splenic granulomas. Liver, pancreas and right adrenal grossly normal. Bilateral percutaneous nephrostomy tubes. No hydronephrosis. Mild prostatic enlargement Lozada catheter within the bladder. Diffuse edema within the subcutaneous tissues. Mild progression in the lesions which are mostly sclerotic involving mostly the pelvis, sacrum and ri ght femur. IMPRESSION: Bilateral lower lobe pneumonias
--- NOTE | 2022-05-01 16:23 | RAD REPORT ---
EXAM DESCRIPTION: Zuri Single View05/01/2022 3:48 pm CLINICAL HISTORY: Shortness of breath COMPARISON: 2015 FINDINGS: Umbm-zk-ejmkkuza bilateral lower lobe opacities. Small pleural effusions Heart is normal size. A central venous line in place IMPRESSION: Xgqy-jo-wiqyzcnc bilateral pulmonary opacities probably pneumonia
[2022-05-01 16:36] LABS: Urine Blood 2+ (Negative); Urine Glucose Negative (Negative); Urine Protein 3+ (Negative); Urine Specific Gravity 1.025 (1.005-1.030); Urine pH 5.5 (5.0-7.0)
[2022-05-01 16:54] LABS: Urine Bacteria 20-50 /HPF (<20); Urine Mucus Slight /HPF (None Seen); Urine RBC >50 /HPF (None Seen); Urine WBC Clump Many /HPF (None Seen)
[2022-05-01 18:33] VITALS: BP 95/56; O2SAT 90
[2022-05-01 18:34] VITALS: TEMP 98.3
--- NOTE | 2022-05-04 18:48 | EKG ---
Test Date: 2022-05-01 Test Time: 15:49:42 Household Appliance Installer: PEYTON MEASUREMENT RESULTS: Intervals: Rate: 113 CT: 136 QRSD: 76 QT: 324 QTc: 444 [place]: P: 43 CT: 136 QRS: -29 T: 82 INTERPRETIVE STATEMENTS: Sinus tachycardia Low voltage QRS Cannot rule out Anterior infarct, age undetermined Abnormal ECG No previous ECG available for comparison Electronically Signed On 05-04-22 18:42:47 COMPLAINT SUPERVISOR by Sung Monk
== END 2022-05-01 17:53 | disposition short-term general hospital (02) ==
LOC: ER 14:23
DX: J15.8 Pneumonia due to other specified bacteria (principal); R06.00 Dyspnea, unspecified; R09.02 Hypoxemia; I95.9 Hypotension, unspecified; D41.4 Neoplasm of uncertain behavior of bladder; I10 Essential (primary) hypertension; Z20.822 Contact with and (suspected) exposure to COVID-19; Z88.0 Allergy status to penicillin
CPT/HCPCS: 96365; 87040 ×2; 87088; 85025; 87086; 36415; 86900; 83735; 86850; 85610; 86901; 80076; 83605; 85730; 84484; 80053; 83880; 0240U; 71250; 74176; 71045; 96375; 99285; 96366; J7614; J7644; J3010; J3370; J7050; J7030; J2405; J0692; 81003; 81015; 93005

== ENCOUNTER 2022-06-30 22:51 | Emergency (ER) | payer OTHER ==
--- OUTSIDE RECORDS SUMMARY | 2022-06-30 23:00 | XMS REPORT | Clinical Summary ---
:1950 Author Organization [facility] [place] [facility] Address [address] [place] [address] Care Team Providers Name Role Phone Reece [...] of counter. Hold for bladder diarrhea/loose stools. acetaminophen Take 2 tablets 0 A ctive (TYLENOL) 500 mg (1,000 mg) by tablet mouth 3 (three) times a day. naloxone (Narcan) 4 Use 1 dose into 2 each 0 03/06/2022 Active mg/actuation nasal one nostril as sprayIndications: needed for opioid Cancer associated overdose. Do not pain prime or test the inhaler prior to adminstration. Give another dose into the other nostril after 2 to 3 minutes if the patient does not respond or responds and then relapses into respiratory depression. gabapentin TAKE 1 CAPSULE BY 30 capsule 1 05/11/2022 Active (NEURONTIN) 300 mg MOUTH AT BEDTIME capsuleIndications: Neoplasm related pain (acute) (chronic), Cancer associated pain ondansetron (Zofran) Take 1 tablet (8 60 tablet 1 05/11/2022 Active 8 mg mg) by mouth every tabletIndications: 8 (eight) hours as Nausea alone needed for nausea or vomiting. methadone (DOLOPHINE) Take 2 tablets by 100 tablet 0 3 Active 10 mg mouth every 8 tabletIndications: (eight) hours, Cancer associated pain metoclopramide Take 1 tablet (10 90 tablet 0 06/05/2022 Active (REGLAN) 10 mg mg) by mouth 3 tabletIndications: (three) times a Malignant neoplasm of day before meals. overlapping sites of urinary organs, Nausea Additional Information Patient not taking. Reason: No longer taking, Reported on 06/19/2022 HYDROmorphone Take 1 tablet (4 72 tablet 0 06/12/2022 Active (Dilaudid) 4 mg mg) by mouth every tabletIndications: 4 (four) hours as Cancer associated pain needed for moderate pain or severe pain. mirtazapine (REMERON) Take 1 tablet (15 30 tablet 2 06/12/2022 Active 15 mg mg) by mouth at tabletIndications: bedtime. Insomnia due to medical condition SantyL ointment Apply 1 0 05/13/2022 Act tadeo application topically to affected area(s) daily. lidocaine-prilocaine APPLY TO 30 g 0 05/04/202005/06 Discontinued (EMLA) 2.5-2.5% PORT-A-CATH AREA 07/25 (Therapy creamIndications: 30 TO 45 MINUTES 23 completed) Encounter for PRIOR TO PORT adjustment and ACCESS DIRECTED management of vascular (TOPICAL access device ANESTHETIC). Bifidobacterium Take 1 capsule by 0 09/05 Discontinued infantis (Align) 4 mg mouth daily. GI (Therapy cap health 22 completed) propranoloL (INDERAL) TAKE 1 TABLET BY 180 tablet 1 03/27/2021 08/0 Discontinued 60 mg MOUTH TWICE A DAY 06/25 (R eorder) tabletIndications: EVERY DAY TO Poliomyelomalacia PREVENT TREMORS HOLD IF SYSTOLIC BP LESS THAAN 110 acetaminophen (TYLENOL) Take 500-1,000 mg 0 12/06 Discontinued 500 mg tablet by mouth every 6 (Stop Taking at (six) hours as 22 Disch arge) needed for mild pain or moderate pain. Buy over the counter. gabapentin (NEURONTIN) Take 1 capsule 60 capsule 3 05/05/202108/07 Discontinued 300 mg (300 mg) by mouth 04/27 capsuleIndications: twice daily. 22 Neuropathy, not otherwise specified mirtazapine (REMERON) Take 1 tablet (15 30 tablet 2 05/05/202108/07 Discontinued 15 mg mg) by mouth at 04/27 (Reo rder) tabletIndications: bedtime. 22 Insomnia due to medical condition senna (SENOKOT) 8.6 mg Take 2 tablets by 0 11/06 Discontinued tablet mouth twice daily. 05/25 To prevent 22 constipation (stimulant). Buy over the counter. HYDROcodone-acetaminoph Take 1 tablet by 60 tablet 0 2 06/07 Discontinued en (NORCO) 10 mg-325 mg mouth every (Reorder) per tabletIndications: (six) hours as 22 Cancer associated pain, needed for Neuropathy, not moderate pain or otherwise specified severe pain. ciprofloxacin HCl Take 1 tablet (500 28 tablet 0 06/18/2021 (CIPRO) 500 mg mg) by mouth twice 09/24 tabletIndications: daily for 14 days. 22 Urinary tract infection For infection as per ID consultation, dose adjusted for kidney dysfunction metoclopramide (Reglan) Take 2 tablets (10 0 022 08/07 Discontinued 5 mg tabletIndications: mg) by mouth See 04/27 Early satiety Admin 22 Instructions. Take before dinner to help bowels move and prevent nausea, may increase appetite HYDROcodone-acetaminoph Take 1 tablet by 25 tablet 0 2 06/07 Discontinued en (NORCO) 10 mg-325 mg mouth every 6 (Reorder) per tabletIndications: (six) hours as 22 Cancer associated pain, needed for Neuropathy, not moderate pain or otherwise specified severe pain. HYDROcodone-acetaminoph Take 1 tablet by 95 tablet 0 2 07/07 Discontinued en (NORCO) 10 mg-325 mg mouth every 6 (Reorder) per tabletIndications: (six) hours as 22 Cancer associated pain, needed for Neuropathy, not moderate pain or otherwise specified severe pain. HYDROcodone-acetaminoph Take 1 tablet by 72 tablet 0 2 08/06 Discontinued en (NORCO) 10 mg-325 mg mouth every 6 (Reorder) per tabletIndications: (six) hours as 22 Cancer associated pain, needed for Neuropathy, not moderate pain or otherwise specified severe pain. HYDROcodone-acetaminoph Take 1 tablet by 28 tablet 0 2 08/07 Discontinued en (NORCO) 10 mg-325 mg mouth every 6 (Therapy per tabletIndications: (six) hours as 22 completed) Cancer associated pain, needed for Neuropathy, not moderate pain or otherwise specified severe pain. methadone (DOLOPHINE) 5 Take 0.5 tablets 60 tablet 0 2 08/07 Discontinued mg tabletIndications: (2.5 mg) by mouth 05/25 (Reorder) Cancer associated pain every 12 (twelve) 22 hours. HYDROmorphone Take 1 tablet (2 100 tablet 0 08/27/2021 Discontinued (Dilaudid) 2 mg mg) by mouth every 10/25 (Reorder) tabletIndications: 4 (four) hours as 22 Cancer associated pain needed (pain). gabapentin (NEURONTIN) 300 mg twice daily x 1 week 1 capsule 3 08/27/202111/06 Discontinued 300 mg 300 mg nightly x 2 weeks 08/25 (Reorder) capsuleIndications: Then stop 22 Neuropathy, not otherwise specified mirtazapine (REMERON) Take 1 tablet (15 30 tablet 2 08/27/202111/06 Discontinued 15 mg mg) by mouth at 08/25 (Reo rder) tabletIndications: bedtime. 22 Insomnia due to medical condition methadone (DOLOPHINE) 5 Take 0.5 tablets 60 tablet 0 2 09/05 Discontinued mg tabletIndications: (2.5 mg) by mouth 10/25 (Reorder) Cancer associated pain every 12 (twelve) 22 hours. HYDROmorphone Take 1 tablet (2 90 tablet 0 09/12/202109/05 Discontinued (Dilaudid) 2 mg mg) by mouth every 10/25 (Reorder) tabletIndications: 4 (four) hours as 22 Cancer associated pain needed (pain). HYDROmorphone Take 1 tablet (2 90 tablet 0 09/22/202111/06 Discontinued (Dilaudid) 2 mg mg) by mouth every 08/25 (Reorder) tabletIndications: 4 (four) hours as 22 Cancer associated pain needed (pain). methadone (DOLOPHINE) 5 Take 1 tablet (5 30 tablet 0 2 10/06 Discontinued mg tabletIndications: mg) by mouth every 07/25 (Reorder) Cancer associated pain 12 (twelve) hours. 22 prochlorperazine Take 1 tablet (10 30 tablet 5 09/23/202110/06 Discontinued (Compazine) 10 mg mg) by mouth every 08/07 0 (Reorder) tabletIndications: 8 (eight) hours as 22 Personal history of needed for nausea malignant neoplasm of or vomiting. bladder loperamide (IMODIUM) 2 Take 2 capsules (4 30 capsule 5 022 11/06 Discontinued mg capsuleIndications: mg) after the 05/07 0 Personal history of first loose bowel 22 malignant neoplasm of movement, and 1 bladder capsule (2 mg) after each loose bowel movement after the first dose has been taken. No more than 8 mg (4 capsules) should be taken in any 24-hour period. INV-() IK-175 Take 8 tablets 225 tablet 0 09/23/202110/06 Discontinued (KYN-175) 150 mg (1,200 mg) by 08/25 (Reorder) tabletIndications: mouth daily. Take 22 Personal history of within 30 minutes malignant neoplasm of of consuming a bladder meal. The dose should be taken at approximately the same time each day. propranoloL (INDERAL) TAKE 1 TABLET BY 180 tablet 1 10/09/202111/06 Discontinued 60 mg MOUTH TWICE A DAY 05/25 tabletIndications: EVERY DAY TO Poliomyelomalacia PREVENT TREMORS HOLD IF SYSTOLIC BP LESS THAN 110 naproxen sodium 220 mg Take 220 mg by 0 Discontinued cap mouth 2 (two) 10/25 (Not A pplicable) times a day with 22 meals. Patient only takes it at night for his right knee. methadone (DOLOPHINE) 5 Take 1 tablet (5 60 tablet 0 2 10/06 Discontinued mg tabletIndications: mg) by mouth every 11/25 (Reorder) Cancer associated pain 12 (twelve) hours. 22 prochlorperazine Take 1 tablet (10 60 tablet 5 10/21/202104/08 Discontinued (Compazine) 10 mg mg) by mouth every 03/09 0 tabletIndications: 8 (eight) hours as 23 Personal history of needed for nausea malignant neoplasm of or vomiting. bladder INV-() IK-175 Take 8 tablets 225 tablet 0 10/21/202111/06 Discontinued (KYN-175) 150 mg (1,200 mg) by 05/25 (Reorder) tabletIndications: mouth daily. Take 22 Personal history of within 30 minutes malignant neoplasm of of consuming a bladder meal. The dose should be taken at approximately the same time each day. methadone (DOLOPHINE) 5 Take 1 tablet (5 60 tablet 0 2 11/06 Discontinued mg tabletIndications: mg) by mouth every 08/25 (Reorder) Cancer associated pain 12 (twelve) hours. 22 levoFLOXacin (Levaquin) Take 1 tablet (750 5 tablet 0 022 12/06 Discontinued 750 mg mg) by mouth 03/27 tabletIndications: daily. For lung 22 Primary urothelial infection carcinoma of overlapping lesion of urinary organ INV-() IK-175 Take 8 tablets 225 tablet 0 11/18/202112/06 Discontinued (KYN-175) 150 mg (1,200 mg) by 03/27 (Reorder) tabletIndications: mouth daily. Take 22 Personal history of within 30 minutes malignant neoplasm of of consuming a bladder meal. The dose should be taken at approximately the same time each day. methadone (DOLOPHINE) 5 Take 1 tablet (5 60 tablet 0 2 12/06 Discontinued mg tabletIndications: mg) by mouth every 09/24 (Reorder) Cancer associated pain 12 (twelve) hours. 22 HYDROmorphone Take 1 tablet (2 90 tablet 0 11/21/202112/07 Discontinued (Dilaudid) 2 mg mg) by mouth every 03/27 (Alternate tabletIndications: 4 (four) hours as 22 therapy) Cancer associated pain needed (pain). gabapentin (NEURONTIN) Take 1 tablet (600 30 capsule 2 022 02/05 Discontinued 600 mg mg) by mouth at 05/25 (Reo rder) tabletIndications: bedtime. 22 Neuropathy, not otherwise specified mirtazapine (REMERON) Take 1 tablet (15 30 tablet 2 11/21/2021 Discontinued 15 mg mg) by mouth at 07/25 (Reo rder) tabletIndications: bedtime. 23 Insomnia due to medical condition triamcinolone (KENALOG) Apply topically to 30 g 0 022 05/06 Discontinued 0.5% creamIndications: affected area(s) 3 06/25 (Therapy Malignant neoplasm of (three) times a 23 completed) overlapping sites of day. urinary organs INV-() IK-175 Take 8 tablets 225 tablet 0 12/16/2021 Discontinued (KYN-175) 150 mg (1,200 mg) by 10/25 (Reorder) tabletIndications: mouth daily. Take 22 Personal history of within 30 minutes malignant neoplasm of of consuming a bladder meal. The dose should be taken at approximately the same time each day. methadone (DOLOPHINE) 5 Take 1 tablet (5 10 tablet 0 2 12/07 Discontinued mg tabletIndications: mg) by mouth every 03/27 (Reorder) Cancer associated pain 12 (twelve) hours. 22 HYDROmorphone Take 1 tablet (4 90 tablet 0 12/26/2021 Discontinued (Dilaudid) 4 mg mg) by mouth every 05/25 (Reorder) tabletIndications: 4 (four) hours as 22 Cancer associated pain needed for moderate pain or severe pain. methadone (DOLOPHINE) 5 Take 1 tablet (5 90 tablet 0 2 01/06 Discontinued mg tabletIndications: mg) by mouth every 09/24 (Reorder) Cancer associated pain 8 (eight) hours. 22 HYDROmorphone Take 1 tablet (4 80 tablet 0 01/08/202201/07 Discontinued (Dilaudid) 4 mg mg) by mouth every 04/27 (Reorder) tabletIndications: 4 (four) hours as 22 Cancer associated pain needed for moderate pain or severe pain. ibuprofen Take 1 tablet (200 0 12/3 D iscontinued (ADVIL,MOTRIN) 200 mg mg) by mouth every 020 tablet 8 (eight) hours as 22 needed for mild pain. INV-() IK-175 Take 8 tablets 225 tablet 0 01/13/2022 Discontinued (KYN-175) 150 mg (1,200 mg) by 08/25 (Reorder) tabletIndications: mouth daily. Take 22 Personal history of within 30 minutes malignant neoplasm of of consuming a bladder meal. The dose should be taken at approximately the same time each day. methadone (DOLOPHINE) 5 Take 1 tablet (5 9 tablet 0 01/07 Discontinued mg tabletIndications: mg) by mouth every 04/27 (Reorder) Cancer associated pain 8 (eight) hours. 22 HYDROmorphone Take 1 tablet (4 120 tablet 0 01/27/202202/05 Discontinued (Dilaudid) 4 mg mg) by mouth every 05/25 (Reorder) tabletIndications: 4 (four) hours as 22 Cancer associated pain needed for moderate pain or severe pain. methadone (DOLOPHINE) 5 Take 1 tablet (5 90 tablet 0 02/05 Discontinued mg tabletIndications: mg) by mouth every 08/25 Cancer associated pain 8 (eight) hours. 22 ciprofloxacin HCl Take 1 tablet (500 14 tablet 0 02/05/2022 (CIPRO) 500 mg mg) by mouth twice 10/25 tabletIndications: daily for 7 days. 22 Malignant neoplasm of overlapping sites of urinary organs INV-() IK-175 Take 8 tablets 225 tablet 0 02/10/202204/08 Discontinued (KYN-175) 150 mg (1,200 mg) by 03/27 tabletIndications: mouth daily within 23 Malignant neoplasm of 30 minutes of overlapping sites of consuming a meal, urinary organs at approximately the same time each day. gabapentin (NEURONTIN) Take 1 tablet (600 30 tablet 0 02/18/2002/05 Discontinued 600 mg mg) by mouth at 08/25 (The rapy tabletIndications: bedtime. 22 c ompleted) Neuropathy, not otherwise specified HYDROmorphone Take 1 tablet (4 120 tablet 0 02/17/202202/07 Discontinued (Dilaudid) 4 mg mg) by mouth every (Reorder) tabletIndications: 4 (four) hours as 22 Cancer associated pain needed for moderate pain or severe pain. methadone (DOLOPHINE) 5 Take 1.5 tabs (7.5 90 tablet 0 022 02/07 Discontinued mg tabletIndications: mg) in AM 5 mg 0/2 0 (Reorder) Cancer associated pain afternoon and 7.5 22 mg (1.5 tab) at night gabapentin (Neurontin) Take 1 capsule 30 capsule 1 02/20/2022 03/0 Discontinued 300 mg (300 mg) by mouth 08/25 capsuleIndications: at bedtime. 23 Neoplasm related pain (acute) (chronic), Cancer associated pain ibuprofen Take 1 tablet (800 0 02/07 D iscontinued (ADVIL,MOTRIN) 800 mg mg) by mouth. 0/20 tablet Taking BID 22 celecoxib (CeleBREX) Take 1 capsule 60 capsule 0 03/06/2022 Discontinued 100 mg (100 mg) by mouth 09/24 capsuleIndications: twice daily. 23 Cancer associated pain methadone (DOLOPHINE) 5 Take 2 tablets (10 90 tablet 0 022 03/08 Discontinued mg tabletIndications: mg) by mouth every 04/27 (Reorder) Cancer associated pain 8 (eight) hours. 23 HYDROmorphone Take 1 tablet (4 60 tablet 0 03/06/202203/08 Discontinued (Dilaudid) 4 mg mg) by mouth every 04/27 (Reorder) tabletIndications: 4 (four) hours as 23 Cancer associated pain needed for moderate pain or severe pain. IBUPROFEN ORAL Take 200 mg by 0 Discontinued mouth daily. Takes 05/25 ( Other ) 2 tabs of 200 mg 23 Ibuprofen PO daily mirtazapine (REMERON) Take 1 tablet (15 30 tablet 2 03/12/2022 04/0 Discontinued 15 mg mg) by mouth at 09/24 (Reo rder) tabletIndications: bedtime. 23 Insomnia due to medical condition HYDROmorphone Take 1 tablet (4 5 tablet 0 03/19/202203/08 Discontinued (Dilaudid) 4 mg mg) by mouth every 09/24 (Reorder) tabletIndications: 4 (four) hours as 23 Cancer associated pain needed for moderate pain or severe pain. methadone (DOLOPHINE) 5 Take 2 tablets (10 18 tablet 0 023 03/08 Discontinued mg tabletIndications: mg) by mouth every 09/24 (Reorder) Cancer associated pain 8 (eight) hours. 23 OLANZapine (ZyPREXA) Take 1 tablet (2.5 30 tablet 0 03/24/202205/06 Discontinued 2.5 mg mg) by mouth 07/25 (Therap y tabletIndications: nightly as needed completed) Insomnia due to medical for anxiety or condition sleep. methadone (DOLOPHINE) 5 Take 2 tablets (10 180 tablet 0 03/08 Discontinued mg tabletIndications: mg) by mouth every 10/25 (Reorder) Cancer associated pain 8 (eight) hours. 23 HYDROmorphone Take 1 tablet (4 120 tablet 0 03/24/2022 Discontinued (Dilaudid) 4 mg mg) by mouth every 09/24 (Reorder) tabletIndications: 4 (four) hours as 23 Cancer associated pain needed for moderate pain or severe pain. methadone (DOLOPHINE) 5 Take 2 tablets (10 180 tablet 0 03/09 Discontinued mg tabletIndications: mg) by mouth every 05/25 Cancer associated pain 8 (eight) hours. 23 methadone (DOLOPHINE) 5 Take two tablets 180 tablet 0 03/30/19 23 Discontinued mg tabletIndications: PO (10 mg) in am, 03/27 (Reorder) Cancer associated pain three tablets PO 23 (15 mg) in afternoon, two tablets PO (10 mg) in evening erythromycin (ROMYCIN) Administer 0.5 3.5 g 0 04/03/2022 0 05/06 Discontinued 0.5% ophthalmic inches into the 06/25 (Therapy ointmentIndications: left eye at completed) Primary urothelial bedtime. carcinoma of overlapping sites of urinary organs ciprofloxacin HCl Take 1 tablet (500 20 tablet 0 04/06/2022 Discontinued (Cipro) 500 mg mg) by mouth twice 06/25 (Therapy tabletIndications: daily. 23 c ompleted) Cystitis methadone (DOLOPHINE) 5 Take two tablets 21 tablet 0 3 Discontinued mg tabletIndications: PO (10 mg) in am, 05/25 (Dose Cancer associated pain three tablets PO 23 adjustment) (15 mg) in afternoon, two tablets PO (10 mg) in evening methadone (DOLOPHINE) 5 Take 2 tablets (10 240 tablet 0 2022 02/0 Discontinued mg tabletIndications: mg) by mouth every 7/20 (Reorder) Cancer associated pain 8 (eight) hours. 23 methadone (DOLOPHINE) 5 Take 2 tablets (10 240 tablet 0 2022 03/0 Discontinued mg tabletIndications: mg) by mouth every 6/20 (Reorder) Cancer associated pain 8 (eight) hours. 23 methadone (DOLOPHINE) Take 2 tablets (20 180 tablet 0 05/12/19 23 05/06 Discontinued 10 mg mg) by mouth every 4/20 ( Reorder) tabletIndications: 8 (eight) hours. 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 03/12/2022 Other retention of urine 03/12/2022 Advance care planning 03/06/2022 Lower urinary tract infectious disease 06/15/2021 Hyperkalemia 10/01/2020 Nephrostomy 08/06/2020 Infection due to Human parainfluenza virus 3 Post poliomyelitis syndrome 2020 Fever presenting with conditions classified elsewhere 04/08/2020 Other elevated white blood cell count 04/08/2020 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 Renal insufficiency 04/08/2020 Metastatic malignant neoplasm to bone 03/18/2020 Moderate protein-calorie malnutrition 03/06/2020 Neuropathy 02/14/2020 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 12/19/2019 Overview: 12/06 [facility] regulatory import Encounter for antineoplastic chemo 12/19/2019 Anemia in neoplastic disease 12/19/2019 Paraplegia 12/05/2019 Personal history of malignant neoplasm of bladder 11/07 Essential hypertension 11/01/2019 Benign prostatic hyperplasia 11/01/2019 H/O: poliomyelitis 11/01/2019 Sleep apnea 03/08/1999 Poliomyelomalacia 1950 Encounters Date Type Specialty Care Team Description 06/30/2022 Telephone Genitourinary Dante Christy, Oncology 06/26/2022 Case Management Chloe Murray RN 06/25/2022 Documentation Genitourinary Dante Christy, Oncology 06/22/2022 Case Management Ariela Batres, RN 06/22/2022 Orders Only Genitourinary DelvisCarina, Malignant ne oplasm of Oncology PA overlapping sit es of urinary organs (Primary Dx) 06/22/2022 Case Management Ariela Batres RN 06/19/2022 Follow-Up Genitourinary Dante Christy, Malignant n eoplasm of Oncology MD overlapping sit es of urinary organs (Primary Dx) 06/19/2022 Documentation Wound Ostomy Tony Saldaña RN 06/19/2022 Travel 06/18/2022 Ancillary Radiology Carina Edmondson, Malignant cristina plasm of Procedure PA overlapping sit es of urinary organs 06/18/2022 Travel 06/12/2022 Hospital Encounter Radiology Rubén Garcia y urothelial carcinoma of overlapping sites of urinary organs; MD Sakshi Nephrostomy Pillo Mendoza MD 06/12/2022 Orders Only Genitourinary Carina Edmondson, Malignant ne oplasm of Oncology PA overlapping sit es of urinary organs (Primary Dx) 06/12/2022 Travel 06/12/2022 Telephone Urology Kamini Mcintosh RN 06/11/2022 Case Management Ariela Batres RN 06/11/2022 Orders Only Genitourinary DelvisCarina, Malignant ne oplasm of Oncology PA overlapping sit es of urinary organs (Primary Dx) 06/10/2022 Education Radiology Abhishek Kunz MA 06/10/2022 Orders Only Radiology Altagracia Fernandez PA 06/05/2022 Infusion Infusion Services Dante Christy, Primary urothelial MD [facility] l esion of RONN Schuster urinary organ ( Primary Dx) 06/05/2022 Follow-Up Genitourinary Dante Christy, Primary uro thelial carcinoma of overlapping lesion of urinary organ (Primary Dx); Oncology MD Malignant neoplasm of overlapping sites of urinary organs; Baylee Calle Nausea P, WEFT STRAIGHTENER 06/05/2022 Hospital Encounter Lab Dante Christy 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 06/05/2022 Travel 06/03/2022 Orders Only Genitourinary Carina Edmondson, Primary urot helial Oncology PA carcinoma of overlapping les ion of urinary organ ( Primary Dx) 05/29/2022 Infusion Infusion Services Dante Christy, Primary urothelial MD carcinoma of overlapping les ion of urinary organ ( Primary Dx) 05/29/2022 Hospital Encounter Lab Dante Christy, Primar y urothelial MD carcinoma of overlapping les ion of urinary organ 05/29/2022 Telephone Genitourinary Maranda Gloria, RN 05/29/2022 Travel 05/27/2022 Documentation Vivek Zamarripa RN 05/26/2022 Orders Only Genitourinary Delvis Carina, Oncology PA 05/25/2022 Orders Only Genitourinary Delvis Carina, Oncology PA 05/22/2022 Orders Only Genitourinary Delvis Carina, Primary urot helial Oncology PA carcinoma of overlapping sit es of urinary organs (Primary Dx) 05/20/2022 Orders Only Genitourinary Carina Edmondson, Primary urot helial carcinoma of overlapping sites of urinary organs (Primary Dx); Oncology PA Paraplegia, not otherwise specified 05/19/2022 Infusion Infusion Services Carina Edmondson, Primary urothelial PA carcinoma of Panes, Loven Y, overlapping lesion of RN urinary organ ( Primary Dx) 05/19/2022 Follow-Up Genitourinary Dante Christy, Primary uro thelial Oncology carcinoma of overlapping les ion of urinary organ ( Primary Dx) 05/19/2022 Hospital Encounter Lab Carina Edmondson, 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 05/19/2022 Case Management Chloe Murray, RN 05/19/2022 Orders Only Genitourinary Carina Edmondson, Malignant ne oplasm of Oncology PA overlapping sit es of urinary organs (Primary Dx) 05/19/2022 Travel 05/13/2022 Orders Only Physical Medicine Светлана Roy MD Wound <Sub sequent> and Rehabilitation (Primary Dx) 05/12/2022 Telemedicine Genitourinary Dante Christy, Primary uro thelial carcinoma of overlapping lesion of urinary organ (Primary Dx); Oncology MD Malignant neopl asm of overlapping sites of urinary organs 05/12/2022 Orders Only Genitourinary Delvis, Carina, Primary urot helial Oncology PA carcinoma of overlapping les ion of urinary organ ( Primary Dx) 05/12/2022 Orders Only Genitourinary Lilibeth Hernandez Oncology K, [facility] 05/11/2022 Orders Only Genitourinary Delvis, Carina, Malignant ne oplasm of Oncology PA overlapping sit es of urinary organs (Primary Dx) 05/08/2022 Orders Only Genitourinary Delvis, Carina, Malignant ne oplasm of Oncology PA overlapping sit es of urinary organs (Primary Dx) 05/01/2022 Orders Only Genitourinary Delvis, Carina, Oncology PA 05/01/2022 Telephone Urology Bárbara Perez RN 04/29/2022 Hospital Encounter Pain Medicine Shaun Bhatia MD Cancer associated pain 04/29/2022 Documentation Genitourinary Dante Christy, Oncology MD 04/29/2022 Documentation Pain Medicine Hayden Marin MD 04/29/2022 Travel 04/28/2022 Orders Only Genitourinary DelvisPaulaCarina, Oncology PA 04/28/2022 Telephone Genitourinary Isamar Ricks administrative intern 04/24/2022 Infusion Infusion Services Carina Edmondson, Primary urothelial PA carcinoma of [place], Mary Kay overlapping lesion of P, RN urinary organ ( Primary Dx) 04/24/2022 Hospital Encounter Lab Carina Edmondson, 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 04/24/2022 Travel 04/20/2022 Orders Only Genitourinary Delvis Carina, Malignant ne oplasm of Oncology PA overlapping sit es of urinary organs (Primary Dx) 04/18/2022 Hospital Encounter Infusion Services Carina Edmondson, Pr imary urothelial PA carcinoma of Borje, Dev S, overlapping lesion of RN urinary organ ( Primary Dx) 04/18/2022 Orders Only Genitourinary Delvis Carina, Oncology PA 04/18/2022 Travel 04/17/2022 Follow-Up Genitourinary Dante Christy, Primary uro thelial Oncology carcinoma of overlapping les ion of urinary organ 04/17/2022 Hospital Encounter Lab Carina Edmondson, 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 04/17/2022 Telephone Genitourinary Macarena Madsen administrative intern 04/17/2022 Orders Only Genitourinary Dante Christy, Primary uro thelial Oncology carcinoma of overlapping les ion of urinary organ ( Primary Dx) 04/17/2022 Orders Only Genitourinary Carina Edmondson, Primary urot helial Oncology PA carcinoma of overlapping les ion of urinary organ ( Primary Dx) 04/17/2022 Travel 04/16/2022 Orders Only Genitourinary Dante Christy, Oncology 04/15/2022 Telemedicine Physical Medicine Marvel Villafuerte, [place], incomplete (Primary Dx); and Rehabilitation MD 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; Светлана Roy MD Pressure injury <Contiguous site of back, buttock and hip>; Segmental and s omatic dysfunction of lower extremity 04/15/2022 Orders Only Genitourinary Dante Christy, Malignant n eoplasm of Oncology overlapping sit es of urinary organs (Primary Dx) 04/15/2022 Orders Only Genitourinary Carina Edmondson, Primary urot helial Oncology PA carcinoma of overlapping les ion of urinary organ ( Primary Dx) 04/14/2022 Ancillary Radiology Dante Christy, Primary urot helial Procedure MD carcinoma of overlapping sit es of urinary organs 04/14/2022 Orders Only Genitourinary Dante Christy, Primary uro thelial Oncology carcinoma of overlapping les ion of urinary organ ( Primary Dx) 04/14/2022 Orders Only Genitourinary Carina Edmondson, Primary urot helial Oncology PA carcinoma of overlapping sit es of urinary organs (Primary Dx) 04/14/2022 Travel 04/13/2022 Hospital Encounter Radiology Carina Edmondson, Nephros melany (Primary Dx); PA 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 Rubén Garcia MD 04/13/2022 Orders Only Genitourinary Carina Edmondson, Oncology PA 04/13/2022 Travel 2022 Orders Only Radiology Baylee Merida PA 04/09/2022 Orders Only Genitourinary Carina dEmondson, Primary urot helial Oncology PA carcinoma of overlapping sit es of urinary organs (Primary Dx) 04/08/2022 Hospital Encounter Lab Dante Christy 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 04/08/2022 Orders Only Genitourinary Dante Christy, Primary uro thelial Oncology carcinoma of overlapping sit es of urinary organs (Primary Dx) 04/08/2022 Orders Only Genitourinary Carina Edmondson, Primary urot helial Oncology PA carcinoma of overlapping sit es of urinary organs (Primary Dx) 04/07/2022 Telemedicine Genitourinary Dante Christy, Primary uro thelial carcinoma of overlapping lesion of urinary organ (Primary Dx); Oncology MD Primary urothel ial carcinoma of overlapping sites of urinary organs 04/07/2022 Orders Only Genitourinary Carina Edmondson, Primary urot helial Oncology PA carcinoma of overlapping sit es of urinary organs (Primary Dx) 04/06/2022 Emergency Emergency Medicine Temi Das, MD Harrell is (Primary Dx); Personal histor y of malignant neoplasm of bladder; Other retention of urine; Nephrostomy; Renal insuffici ency 04/06/2022 Travel 04/03/2022 Orders Only Genitourinary Dante Christy, Primary uro thelial Oncology carcinoma of overlapping sit es of urinary organs (Primary Dx) 04/03/2022 Orders Only Genitourinary Carina Edmondson, Primary urot helial Oncology PA carcinoma of overlapping sit es of urinary organs (Primary Dx) 04/03/2022 Orders Only Genitourinary Iris Gallego Oncology N, RN 04/03/2022 Orders Only Genitourinary Dante Christy, Oncology 03/31/2022 Ancillary Radiology Dante Christy, Procedure 03/31/2022 Ancillary Radiology Dante Christy, Primary urot helial Procedure carcinoma of overlapping sit es of urinary organs 03/31/2022 Travel 03/27/2022 Orders Only Genitourinary Iris Gallego Oncology N, RN 03/27/2022 Orders Only Genitourinary Iris Gallego Oncology N, RN 03/25/2022 Orders Only Genitourinary Dante Christy, Primary uro thelial Oncology carcinoma of overlapping sit es of urinary organs (Primary Dx) 03/24/2022 Orders Only Genitourinary Champ Jadiel Primary ur othelial Oncology G Jr. 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 03/16/2022 Hospital Encounter Uro/Ortho/GI Lucille Cunningham P A Moderate protein-calorie malnutrition (P rimary Dx); - Tye Alcantar MD Personal hi story of malignant neoplasm of bladder; 03/17/2022 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; Malignant neopl asm of overlapping sites of urinary organs; 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; 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; Secondary malig nant neoplasm of bone 03/16/2022 Orders Only Genitourinary Yadav, Secondary sigrid gnant Oncology aTya Cervantes WEFT STRAIGHTENER neoplasm of retroperitoneum and peritoneum (Kenai chito Dx) 03/16/2022 Travel 03/14/2022 Clinical Support Silvina Go, Suspected COVID-19 PA (Primary Dx) Hussain Tovar MA 03/14/2022 Travel 03/13/2022 Orders Only Radiology Silvina Morin, PA 03/12/2022 Office Visit Genitourinary Anya Stinson n eoplasm of overlapping sites of urinary organs (Primary Dx); Oncology MD Nighat Malignant neopl asm of overlapping sites of bladder; 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 03/12/2022 Travel 03/10/2022 Ancillary Radiology John, Malignant neopl asm of Procedure Rachana Aguilar NP overlapping sites of urinary organs 03/10/2022 Documentation Nette Correa, RONN 03/10/2022 Orders Only Genitourinary John, Primary urothe lial Oncology Rachana Aguilar NP carcinoma o f overlapping sit es of urinary organs (Primary Dx) 03/10/2022 Telephone Genitourinary Arya Oncology Alissa Carbone RN 03/10/2022 Travel 03/04/2022 Orders Only Genitourinary Angela Palomo Primary ur othelial Oncology N carcinoma of overlapping sit es of urinary organs (Primary Dx) 03/02/2022 Orders Only Genitourinary Carson Oneill, Malignant neoplasm of Oncology WEFT STRAIGHTENER overlapping sit es of urinary organs (Primary Dx) 02/20/2022 Ancillary Radiology Carson Oneill, Primary uro thelial Procedure WEFT STRAIGHTENER carcinoma of overlapping sit es of urinary organs 02/20/2022 Orders Only Genitourinary Davida Mendiola Oncology 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 (Primary Dx); Shine Orozco III P, Personal hi story of malignant neoplasm of bladder; RN 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 02/10/2022 Follow-Up Genitourinary Leonor Hernandez, W[employer] PROJECT MANAGER Primary urothelial Oncology Carson Oneill, carcinoma o f WEFT STRAIGHTENER overlapping sit es of urinary organs (Primary Dx) 02/10/2022 Orders Only Genitourinary Thomas Primary urothe lial Oncology MD Wojciech carcinoma of overlapping les ion of urinary organ ( Primary Dx) 02/10/2022 Orders Only Genitourinary Irvin Leyva RP Oncology 02/10/2022 Orders Only Genitourinary Milad, Oncology MD Nighat 02/10/2022 Documentation Genitourinary Milad, Oncology MD Nighat 02/10/2022 Travel 02/05/2022 Orders Only Genitourinary Neida Car, Malignant cristina plasm of Oncology WEFT STRAIGHTENER overlapping sit es of urinary organs (Primary Dx) 02/05/2022 Case Management Sonia Cosme RN 02/04/2022 Hospital Encounter Lab Leonor Hernandez NP 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 02/04/2022 Case Management Sonia Cosme, RONN 02/04/2022 Orders Only Genitourinary Leonor Hernandez NP Oncology 02/04/2022 Telephone Genitourinary Leonor Hernandez NP Oncology 02/04/2022 Orders Only Genitourinary Leonor Hernandez NP Primary uro thelial Oncology carcinoma of overlapping les ion of urinary organ ( Primary Dx) 02/03/2022 Telephone Genitourinary Leonor Hernandez NP Oncology 02/03/2022 Orders Only Genitourinary Leonor Hernandez NP Oncology 01/23/2022 Ancillary Radiology Dante Christy, Procedure 01/23/2022 Ancillary Radiology Dante Christy, Malignant ne oplasm of Procedure overlapping sit es of urinary organs 01/23/2022 Ancillary Radiology Dante Christy, Malignant ne oplasm of Procedure overlapping sit es of urinary organs 01/23/2022 Travel 01/22/2022 Orders Only Genitourinary Leonor Hernandez NP Personal hi story of Oncology malignant neopl asm of bladder (Primar y Dx) 01/22/2022 Orders Only Genitourinary Leonor Hernandez NP Primary uro thelial Oncology carcinoma of overlapping sit es of urinary organs (Primary Dx) 01/14/2022 Orders Only Genitourinary Keyon Benavides Primary uro thelial Oncology carcinoma of overlapping sit es of urinary organs (Primary Dx) 01/13/2022 Infusion Infusion Services Dante Christy Seconda ry malignant neoplasm of bone (Primary Dx); Personal histor y of malignant neoplasm of bladder; Malignant neopl asm of overlapping sites of urinary organs 01/13/2022 Office Visit Genitourinary Lopez, Malignant neop lasm of Oncology Rachana Aguilar NP overlapping sites of Leonor Hernandez NP urinary orga ns 01/13/2022 Documentation Genitourinary Dante Christy Oncology 01/13/2022 Orders Only Genitourinary Leonor Hernandez NP Oncology 01/13/2022 Orders Only Genitourinary Ruth Bell, Personal hi story of Oncology [facility] malignant neopl asm of bladder (Primar y Dx) 01/13/2022 Travel 01/12/2022 Orders Only Genitourinary Dewey Angela Primary ur othelial Oncology N carcinoma of overlapping sit es of urinary organs (Primary Dx) 01/09/2022 Ancillary Radiology Dante Christy, Malignant ne oplasm of Procedure MD overlapping sit es of urinary organs 01/09/2022 Travel 12/30/2021 Telemedicine Genitourinary Dante Christy Malignant n eoplasm of Oncology overlapping sit es of urinary organs 12/30/2021 Hospital Encounter Lab Leonor Hernandez NP Malign ant neoplasm of overlapping sit es of urinary organs 12/30/2021 Orders Only Genitourinary Leonor Hernandez NP Malignant n eoplasm of Oncology overlapping sit es of urinary organs (Primary Dx) 12/24/2021 Orders Only Genitourinary Dante Christy Primary uro thelial Oncology carcinoma of overlapping les ion of urinary organ ( Primary Dx) 12/24/2021 Orders Only Genitourinary KennedyRickby Rosie Malignant n eoplasm of Oncology overlapping sit es of urinary organs (Primary Dx) 12/16/2021 Hospital Encounter Lab Leonor Hernandez NP Hyperk alemia 12/16/2021 Infusion Infusion Services Leonor Hernandez NP Maligna nt neoplasm of overlapping sites of urinary organs (Primary Dx); Personal histor y of malignant neoplasm of bladder 12/16/2021 Office Visit Genitourinary Dante Christy Malignant n eoplasm of overlapping sites of urinary organs (Primary Dx); Oncology MD Personal histor y of malignant neoplasm of bladder; Hyperkalemia; Secondary malig nant neoplasm of bone 12/16/2021 Documentation Genitourinary Dante Christy, Oncology 12/16/2021 Orders Only Genitourinary Lilibeth Hernandez Oncology K, [facility] 12/16/2021 Travel 12/15/2021 Hospital Encounter Radiology Lucille Cunningham P A Personal history of malignant neoplasm o f bladder (Primary Dx); Kelly, Nephrostomy; MD Pillo 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 12/15/2021 Travel 12/07/2021 Orders Only Radiology Swapna Trejo PA 11/26/2021 Orders Only Genitourinary Leonor Hernandez NP Primary uro thelial Oncology carcinoma of overlapping les ion of urinary organ ( Primary Dx) 11/18/2021 Infusion Infusion Services Leonor Hernandez NP 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 (Primary Dx); Personal histor y of malignant neoplasm of bladder 11/18/2021 Office Visit Genitourinary Leonor Hernandez NP Primary uro thelial carcinoma of overlapping lesion of urinary organ (Primary Dx); Oncology Personal histor y of malignant neoplasm of bladder 11/18/2021 Ancillary Radiology Dante Christy, Primary urot helial Procedure carcinoma of overlapping les ion of urinary organ 11/18/2021 Documentation Genitourinary Dante Christy, Oncology MD 11/18/2021 Orders Only Genitourinary Francisca Mccullough, Primary urot helial Oncology [facility] carcinoma of overlapping les ion of urinary organ ( Primary Dx) 11/18/2021 Travel 11/17/2021 Ancillary Radiology Procedure 11/17/2021 Ancillary Radiology Primary urothel ial Procedure carcinoma of overlapping les ion of urinary organ 11/17/2021 Travel 11/04/2021 Hospital Encounter Radiology Leonor Hernandez NP Primary urothelial Joel Valadez, carcinoma of MD overlapping les ion of urinary organ 11/04/2021 Travel 11/03/2021 Orders Only Radiology Silvina Morin PA 10/22/2021 Orders Only Genitourinary Keyon Benavides Primary uro thelial Oncology carcinoma of overlapping les ion of urinary organ ( Primary Dx) 10/22/2021 Orders Only Genitourinary Leonor Hernandez NP Primary uro thelial Oncology carcinoma of overlapping les ion of urinary organ ( Primary Dx) 10/22/2021 Travel 10/21/2021 Hospital Encounter Vascular Access and Dante Christy, Procedures Rowan Arceo, RN 10/21/2021 Infusion Infusion Services Leonor Hernandez NP 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 (Primary Dx); Personal histor y of malignant neoplasm of bladder 10/21/2021 Hospital Encounter Vascular Access and Dante Christy, Procedures Rowan Arceo, RN 10/21/2021 Office Visit Genitourinary Dante Christy, Primary uro thelial carcinoma of overlapping lesion of urinary organ (Primary Dx); Oncology MD Personal histor y of malignant neoplasm of bladder 10/21/2021 Documentation Genitourinary Dante Christy, Oncology 10/21/2021 Orders Only Radiology Altagracia Fernandez, PA 10/21/2021 Orders Only Genitourinary Lilibeth Hernandez Oncology K, [facility] 10/21/2021 Travel 10/14/2021 Office Visit Genitourinary Dante Christy Primary uro thelial Oncology carcinoma of overlapping les ion of urinary organ 10/14/2021 Documentation Genitourinary Dante Christy Oncology 10/14/2021 Travel 10/13/2021 Orders Only Genitourinary Leonor Hernandez NP Primary uro thelial Oncology carcinoma of overlapping les ion of urinary organ ( Primary Dx) 10/13/2021 Orders Only Genitourinary Leonor Hernandez NP Primary uro thelial Oncology carcinoma of overlapping les ion of urinary organ ( Primary Dx) 10/08/2021 Clinical Support Genitourinary Leonor Hernandez NP Primary urothelial Oncology Saunders, carcinoma of Kim Thapa, overlapping lesion of [place] urinary organ 10/08/2021 Office Visit Genitourinary Dante Christy, Primary uro thelial Oncology carcinoma of Leonor Hernandez NP overlapping lesion of urinary organ 10/08/2021 Documentation Genitourinary Dante Christy Oncology 10/08/2021 Travel 10/01/2021 Orders Only Genitourinary Keyon Benavides Primary uro thelial Oncology carcinoma of overlapping les ion of urinary organ ( Primary Dx) 09/30/2021 Clinical Support Genitourinary Leonor Hernandez NP Primary urothelial Oncology carcinoma of overlapping les ion of urinary organ 09/30/2021 Office Visit Genitourinary Dante Christy, Primary uro thelial Oncology carcinoma of Leonor Hernandez NP overlapping lesion of urinary organ 09/30/2021 Documentation Genitourinary Dante Christy, Oncology 09/30/2021 Nurse Only Genitourinary Leonor Hernandez NP Primary uro thelial Oncology carcinoma of overlapping les ion of urinary organ ( Primary Dx) 09/30/2021 Travel 09/29/2021 Nurse Only Genitourinary Leonor Hernandez NP Primary uro thelial Oncology carcinoma of overlapping les ion of urinary organ ( Primary Dx) 09/25/2021 Orders Only Genitourinary Keyon Benavides Primary uro thelial Oncology carcinoma of overlapping les ion of urinary organ ( Primary Dx) 09/25/2021 Refill Genitourinary Dante Christy, Poliomyelom alacia Oncology 09/24/2021 Travel 09/23/2021 Hospital Encounter Vascular Access and Dante Christy Procedures Lynn Ambrocio 09/23/2021 Hospital Encounter Vascular Access and Dante Christy, Procedures Shandra Garcia, RN 09/23/2021 Infusion Infusion Services Leonor Hernandez NP Seconda ry malignant neoplasm of bone (Primary Dx); Personal histor y of malignant neoplasm of bladder 09/23/2021 Office Visit Genitourinary Dante Christy, Secondary m alignant neoplasm of bone (Primary Dx); Oncology MD Personal histor y of malignant neoplasm of bladder 09/23/2021 Documentation Genitourinary Dante Christy, Oncology 09/23/2021 Documentation Genitourinary Dante Christy, Oncology 09/23/2021 Orders Only Genitourinary Leonor Hernandez NP Primary uro thelial Oncology carcinoma of overlapping les ion of urinary organ ( Primary Dx) 09/23/2021 Orders Only Genitourinary Dante Christy, Personal hi story of Oncology malignant neopl asm of bladder (Primar y Dx) 09/23/2021 Travel 09/23/2021 Orders Only Genitourinary Angela Palomo Oncology N 09/22/2021 Orders Only Genitourinary Keyon Benavides Primary uro thelial Oncology carcinoma of overlapping les ion of urinary organ ( Primary Dx) 09/19/2021 Hospital Encounter Radiology Leonor Hernandez NP Screening for cancer; Tye Alcantar MD Primary uro thelial carcinoma of overlapping lesion of urinary organ 09/19/2021 Hospital Encounter Lab Leonor Hernandez NP Second chelsie malignant neoplasm of bon e 09/19/2021 Travel 09/18/2021 Hospital Encounter Radiology Dante Christy, Pelvic lymphadenopathy (Primary Dx); 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 Tonya Hennessy PA 09/17/2021 Orders Only Genitourinary Keyon Benavides Primary uro thelial Oncology carcinoma of overlapping les ion of urinary organ ( Primary Dx) 09/17/2021 Orders Only Genitourinary Leonor Hernandez NP Secondary m alignant Oncology neoplasm of bon e (Primary Dx) 09/15/2021 Office Visit Genitourinary Leonor Hernandez NP Screening for cancer; Oncology Carson Oneill, Primary uro thelial carcinoma of overlapping lesion of urinary organ WEFT STRAIGHTENER 09/15/2021 Hospital Encounter Radiology Zeus Locke MD Lower urinary tract Cynthia Valadez MD infectious d isease 09/15/2021 Hospital Encounter Radiation Oncology Dante Christy MD 09/15/2021 Documentation Radiation Oncology Ant Sarmiento MD 09/15/2021 Travel 09/12/2021 Hospital Encounter Radiation Oncology Dante Christy MD 09/12/2021 Hospital Encounter Radiation Oncology Irvin Ordaz MD 09/12/2021 Travel 09/11/2021 Hospital Encounter Radiation Oncology Dante Christy MD 09/11/2021 Travel 09/10/2021 Hospital Encounter Radiology Leonor Hernandez NP Screen ing for cancer; 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 09/10/2021 Hospital Encounter Cardiology Leonor Hernandez NP Screen ing for cancer; 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 09/10/2021 Hospital Encounter Cardiology Leonor Hernandez NP Screen ing for cancer; 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 09/10/2021 Hospital Encounter Cardiology Leonor Hernandez NP Screen ing for cancer; 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 09/10/2021 Hospital Encounter Radiation Oncology Dante Christy MD 09/10/2021 Travel 09/10/2021 Orders Only Radiology Vick Jorge PA 09/09/2021 Hospital Encounter Radiation Oncology Danet Christy MD 09/09/2021 Travel 09/03/2021 Orders Only Genitourinary Dante Christy, Oncology 09/03/2021 Documentation Genitourinary Dante Christy, Oncology 09/03/2021 Orders Only Genitourinary Leonor Hernandez NP Primary uro thelial carcinoma of overlapping lesion of urinary organ (Primary Dx); Oncology Screening for c ancer 09/02/2021 Documentation Genitourinary Dante Christy, Oncology 09/02/2021 Documentation Radiation Oncology Ant Sarmiento MD 09/01/2021 Hospital Encounter Radiation Oncology Ant Sarmiento MD 09/01/2021 Hospital Encounter Radiation Oncology Ant Sarmiento P rimary urothelial MD carcinoma of overlapping les ion of urinary organ 09/01/2021 Documentation Radiation Oncology nAt Sarmiento MD 09/01/2021 Documentation Radiation Oncology Ant Sarmiento MD 09/01/2021 Travel 08/26/2021 Orders Only Radiation Oncology [place], Primary u rothelial Amee, PASSENGER VESSEL CHEF carcinoma of overlapping les ion of urinary organ ( Primary Dx) 08/21/2021 Orders Only Radiation Oncology [place], Primary u rothelial Amee, PASSENGER VESSEL CHEF carcinoma of overlapping les ion of urinary organ ( Primary Dx) 08/19/2021 Office Visit Genitourinary Dante Christy, Secondary m alignant neoplasm of bone (Primary Dx); Oncology MD 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; 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 08/19/2021 Ancillary Radiology Leonor Hernandez NP Procedure 08/19/2021 Hospital Encounter Lab Leonor Hernandez NP 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 08/19/2021 Ancillary Radiology Leonor Hernandez NP Primary urot helial Procedure carcinoma of overlapping les ion of urinary organ 08/19/2021 Hospital Encounter Radiology Leonor Hernandez NP 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 08/19/2021 Travel 08/05/2021 Infusion Infusion Services Leonor Hernandez, N P 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 (Primary Dx); Angi, Secondary malig nant neoplasm of bone; Malinda Kim RN Personal hist ory of malignant neoplasm of bladder 08/05/2021 Office Visit Genitourinary Dante Christy, Primary uro thelial carcinoma of overlapping lesion of urinary organ (Primary Dx); Oncology MD Secondary malig nant neoplasm of bone; Personal histor y of malignant neoplasm of bladder 08/05/2021 Hospital Encounter Lab Leonor Hernandez NP 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 08/05/2021 Travel 07/24/2021 Orders Only Genitourinary Leonor Hernandez NP Oncology 07/22/2021 Infusion Infusion Services Leonor Hernandez NP 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 ( Primary Dx) 07/22/2021 Telemedicine Genitourinary Dante Christy, Primary uro thelial Oncology carcinoma of overlapping les ion of urinary organ 07/22/2021 Hospital Encounter Lab Leonor Hernandez NP 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 07/22/2021 Orders Only Genitourinary Irvin Leyva Bruce Oncology 07/22/2021 Travel 07/15/2021 Nutrition Nutrition Rosa Isela Betancourt Early satiet y W[employer] RESOURCE PROJECT MANAGER Sara Alba, RD 07/08/2021 Office Visit Genitourinary Dante Christy, Primary uro thelial Oncology carcinoma of overlapping les ion of urinary organ ( Primary Dx) 07/08/2021 Hospital Encounter Lab Quintin, Secondary malignant neoplasm of bone; CALISTA Aguilera Personal his tory of malignant neoplasm of bladder; 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 07/08/2021 Infusion Infusion Services Leonor Hernandez NP 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 (Primary Dx); Secondary malig nant neoplasm of bone; Personal histor y of malignant neoplasm of bladder 07/08/2021 Orders Only Genitourinary Leonor Hernandez NP Oncology 07/08/2021 Travel after 06/30/2021 Immunizations Name Administration Dates Next Due Pfizer SARS-CoV-2 Vaccination (Purple 12/15/2020, , 04/06/2020 Cap) Surgical History Surgery Date Site/Laterality Comments COLONOSCOPY 03/08/2017 - test 03/07/2018 DC CYSTO W/REMOVAL OF 12/07/2019 Genitalia/N/A Procedure: CYSTOURETHROSCOPY LESIONS SMALL WITH FULGURATION ; Surgeon: Brigitte Bal; Location: MAIN OR; Service : UROLOGY DC INSJ TUNNELED CTR VAD 12/29/2019 Neck/Right Procedu re: PORT-A-CATH W/SUBQ PORT AGE 3 YR/> PLACEMENT ; Surgeon: Chaparro Reddy MD; Loca tion: [facility]; Service: [facility] G ONC - GENERAL Medical devices from this surgery are in [facility] section. DC FLUORO CENTRAL VENOUS 12/29/2019 Neck/N/A Procedu re: FLUORO GUIDANCE ACCESS DEV PLACEMENT FOR CENTRAL VENOUS ACCESS DEVICE PLACEMENT , REPLACEMENT, OR REMOVAL; Surgeon: Chaparro love MD; Location: [facility]; Service: SURG ONC - GENER AL Medical devices from this surgery are in t Medical Devices section. DC US VASC ACCESS SITS 12/29/2019 N/A Procedure : US GUIDANCE WITH VSL PATENCY NDL ENTRY EVAL OF PO TENTIAL ACCESS SITES, REALTIME US VISUALIZATION OF VASC NEEDLE ENTRY; Surgeon: Chaparro Reddy MD; Location: [facility]; Service: SURG ON C - GENERAL Medical devices from this surgery are in t Medical Devices section. Medical History Medical History Date Comments Neuropathy 2015 feet, leg spasms Paralysis 1949 polio - legs Hearing loss 2004 partial [...] Date Smoking Tobacco: Former Cigarettes 1.5 40 /03/1964 - 03/08/2004 Cigars Smokeless Tobacco: Former Snuff [...] in contact with No / Unsu re 06/19/2022 11:38 AM CDT someone who was confirmed or suspected to have Coronavirus/COVID-19? Obstetrics History Last Filed Vital Signs Vital Sign Reading Time Taken Comments Blood Pressure 102/62 06/19/2022 11:51 AM CDT Pulse 91 06/19/2022 11:51 AM CDT Temperature 36.2 C (97.2 F) 06/19/2022 11:51 AM CDT Respiratory Rate 18 06/19/2022 11:51 AM CDT Oxygen Saturation 96% 06/19/2022 11:51 AM CDT Inhaled Oxygen Concentration - - Weight 67.6 kg (149 lb) 06/19/2022 11:42 AM CDT Height 175.3 cm (5' 9.02") 04/17/2022 10:28 AM [facility] Body Mass Index 21.99 04/17/2022 10:28 AM [facility] Plan of Treatment Date Type Specialty Care Team Description 09/10/2022 Appointment Radiology Ebenezer Anderson, PA [address] [place], [place] [address] (Wo rk) Health Maintenance Due Date Last Done Comments COVID-19 Vaccination (4 - Booster 02/09/2021 12/15/2020, , for Pfizer series) 04/06/2020 Medical Devices Implanted Type Area Professor Of Surgery Device Shelf Model / Identifier Expiration Serial / Date Lot Pin Pin Right: Ankle [place], Clearvue Slim 6fr - [id number] Port Right: BARD PERIP HERAL 01/05/2021 [id number] / Implanted: Qty: 1 on 12/29/2019 by Chaparro Reddy MD at [facility] Chest VASCULAR / [id number] Description: CATHETER LENGTH - 27 CM Procedures Procedure Name Priority Date/Time Associated Diagnosis Comme nts MANUAL DIFFERENTIAL Routine 06/18/2022 2:48 Malignant neoplasm of Results for PM CDT overlapping sites of this pr ocedure urinary organs are in the results section. Results CBC Routine 06/18/2022 2:48 Malignant neoplasm of Res ults for PM CDT overlapping sites of this pr ocedure urinary organs are in the results section. FRACTIONATED BILIRUBIN Routine 06/18/2022 2:48 Malignant neopl asm of Results for PM CDT overlapping sites of this pr ocedure urinary organs are in the results section. TOTAL PROTEIN Routine 06/18/2022 2:48 Malignant neoplasm of Re sults for PM CDT overlapping sites of this pr ocedure urinary organs are in the results section. ASPARTATE Routine 06/18/2022 2:48 Malignant neoplasm of Res ults for AMINOTRANSFERASE PM CDT overlapping sites of thi s procedure urinary organs are in the results section. ALANINE Routine 06/18/2022 2:48 Malignant neoplasm of Res ults for AMINOTRANSFERASE PM CDT overlapping sites of thi s procedure urinary organs are in the results section. ALKALINE PHOSPHATASE Routine 06/18/2022 2:48 Malignant neoplas m of Results for PM CDT overlapping sites of this pr ocedure urinary organs are in the results section. ALBUMIN LEVEL Routine 06/18/2022 2:48 Malignant neoplasm of Re sults for PM CDT overlapping sites of this pr ocedure urinary organs are in the results section. CALCIUM LEVEL TOTAL Routine 06/18/2022 2:48 Malignant neoplasm of Results for PM CDT overlapping sites of this pr ocedure urinary organs are in the results section. .GLOMERULAR FILTRATION Routine 06/18/2022 2:48 Malignant neopl asm of Results for RATE PM CDT overlapping sites of this pr ocedure urinary organs are in the results section. SERUM CREATININE Routine 06/18/2022 2:48 Malignant neoplasm of Results for PM CDT overlapping sites of this pr ocedure urinary organs are in the results section. ELECTROLYTE PANEL Routine 06/18/2022 2:48 Malignant neoplasm o f Results for PM CDT overlapping sites of this pr ocedure urinary organs are in the results section. BLOOD UREA NITROGEN Routine 06/18/2022 2:48 Malignant neoplasm of Results for PM CDT overlapping sites of this pr ocedure urinary organs are in the results section. GLUCOSE LEVEL Routine 06/18/2022 2:48 Malignant neoplasm of Re sults for PM CDT overlapping sites of this pr ocedure urinary organs are in the results section. FREE THYROXINE Routine 06/18/2022 2:48 Malignant neoplasm of R esults for PM CDT overlapping sites of this pr ocedure urinary organs are in the results section. THYROID STIMULATING Routine 06/18/2022 2:48 Malignant neoplasm of Results for HORMONE PM CDT overlapping sites of this pr ocedure urinary organs are in the results section. COMPLETE BLOOD COUNT W/ Routine 06/18/2022 2:48 Malignant neop lasm of DIFFERENTIAL PM CDT overlapping sites of urinary organs COMPREHENSIVE METABOLIC Routine 06/18/2022 2:48 Malignant neop lasm of PANEL PM CDT overlapping sites of urinary organs CT CHEST ABDOMEN PELVIS Routine 06/18/2022 2:35 Malignant neop lasm of Results for W CONTRAST PM CDT overlapping sites of this pr ocedure urinary organs are in the results section. POC CREATININE Routine 06/18/2022 1:21 Results fo r PM CDT this procedure are in the results section. IR NEPHROSTOMY EXCHANGE Routine 06/12/2022 3:40 Primary urothe lial Results for 60 PM CDT carcinoma of this procedure overlapping sites of are in the urinary organs results Nephrostomy section. MANUAL DIFFERENTIAL Routine 06/05/2022 11:30 Malignant neoplas m of Results for AM CDT overlapping sites of this pr ocedure urinary organs are in the results section. Results CBC Routine 06/05/2022 11:30 Malignant neoplasm of Re sults for AM CDT overlapping sites of this pr ocedure urinary organs are in the results section. FRACTIONATED BILIRUBIN Routine 06/05/2022 11:30 Malignant neop lasm of Results for AM CDT overlapping sites of this pr ocedure urinary organs are in the results section. TOTAL PROTEIN Routine 06/05/2022 11:30 Malignant neoplasm of R esults for AM CDT overlapping sites of this pr ocedure urinary organs are in the results section. ASPARTATE Routine 06/05/2022 11:30 Malignant neoplasm of Re sults for AMINOTRANSFERASE AM CDT overlapping sites of thi s procedure urinary organs are in the results section. ALANINE Routine 06/05/2022 11:30 Malignant neoplasm of Re sults for AMINOTRANSFERASE AM CDT overlapping sites of thi s procedure urinary organs are in the results section. ALKALINE PHOSPHATASE Routine 06/05/2022 11:30 Malignant neopla sm of Results for AM CDT overlapping sites of this pr ocedure urinary organs are in the results section. ALBUMIN LEVEL Routine 06/05/2022 11:30 Malignant neoplasm of R esults for AM CDT overlapping sites of this pr ocedure urinary organs are in the results section. CALCIUM LEVEL TOTAL Routine 06/05/2022 11:30 Malignant neoplas m of Results for AM CDT overlapping sites of this pr ocedure urinary organs are in the results section. .GLOMERULAR FILTRATION Routine 06/05/2022 11:30 Malignant neop lasm of Results for RATE AM CDT overlapping sites of this pr ocedure urinary organs are in the results section. SERUM CREATININE Routine 06/05/2022 11:30 Malignant neoplasm o f Results for AM CDT overlapping sites of this pr ocedure urinary organs are in the results section. ELECTROLYTE PANEL Routine 06/05/2022 11:30 Malignant neoplasm of Results for AM CDT overlapping sites of this pr ocedure urinary organs are in the results section. BLOOD UREA NITROGEN Routine 06/05/2022 11:30 Malignant neoplas m of Results for AM CDT overlapping sites of this pr ocedure urinary organs are in the results section. GLUCOSE LEVEL Routine 06/05/2022 11:30 Malignant neoplasm of R esults for AM CDT overlapping sites of this pr ocedure urinary organs are in the results section. THYROID STIMULATING Routine 06/05/2022 11:30 Primary urothelia l Results for HORMONE AM CDT carcinoma of this procedure overlapping lesion of are in the urinary organ results section. FREE THYROXINE Routine 06/05/2022 11:30 Primary urothelial Res ults for AM CDT carcinoma of this procedure overlapping lesion of are in the urinary organ results section. COMPLETE BLOOD COUNT W/ Routine 06/05/2022 11:30 Primary uroth elial DIFFERENTIAL AM CDT carcinoma of overlapping lesion of urinary organ COMPREHENSIVE METABOLIC Routine 06/05/2022 11:30 Primary uroth elial PANEL AM CDT carcinoma of overlapping lesion of urinary organ MANUAL DIFFERENTIAL Routine 05/29/2022 12:17 Malignant neoplas m of Results for PM CDT overlapping sites of this pr ocedure urinary organs are in the results section. Results CBC Routine 05/29/2022 12:17 Malignant neoplasm of Re sults for PM CDT overlapping sites of this pr ocedure urinary organs are in the results section. FRACTIONATED BILIRUBIN Routine 05/29/2022 12:17 Malignant neop lasm of Results for PM CDT overlapping sites of this pr ocedure urinary organs are in the results section. TOTAL PROTEIN Routine 05/29/2022 12:17 Malignant neoplasm of R esults for PM CDT overlapping sites of this pr ocedure urinary organs are in the results section. ASPARTATE Routine 05/29/2022 12:17 Malignant neoplasm of Re sults for AMINOTRANSFERASE PM CDT overlapping sites of thi s procedure urinary organs are in the results section. ALANINE Routine 05/29/2022 12:17 Malignant neoplasm of Re sults for AMINOTRANSFERASE PM CDT overlapping sites of thi s procedure urinary organs are in the results section. ALKALINE PHOSPHATASE Routine 05/29/2022 12:17 Malignant neopla sm of Results for PM CDT overlapping sites of this pr ocedure urinary organs are in the results section. ALBUMIN LEVEL Routine 05/29/2022 12:17 Malignant neoplasm of R esults for PM CDT overlapping sites of this pr ocedure urinary organs are in the results section. CALCIUM LEVEL TOTAL Routine 05/29/2022 12:17 Malignant neoplas m of Results for PM CDT overlapping sites of this pr ocedure urinary organs are in the results section. .GLOMERULAR FILTRATION Routine 05/29/2022 12:17 Malignant neop lasm of Results for RATE PM CDT overlapping sites of this pr ocedure urinary organs are in the results section. SERUM CREATININE Routine 05/29/2022 12:17 Malignant neoplasm o f Results for PM CDT overlapping sites of this pr ocedure urinary organs are in the results section. ELECTROLYTE PANEL Routine 05/29/2022 12:17 Malignant neoplasm of Results for PM CDT overlapping sites of this pr ocedure urinary organs are in the results section. BLOOD UREA NITROGEN Routine 05/29/2022 12:17 Malignant neoplas m of Results for PM CDT overlapping sites of this pr ocedure urinary organs are in the results section. GLUCOSE LEVEL Routine 05/29/2022 12:17 Malignant neoplasm of R esults for PM CDT overlapping sites of this pr ocedure urinary organs are in the results section. THYROID STIMULATING Routine 05/29/2022 12:17 Primary urothelia l Results for HORMONE PM CDT carcinoma of this procedure overlapping lesion of are in the urinary organ results section. FREE THYROXINE Routine 05/29/2022 12:17 Primary urothelial Res ults for PM CDT carcinoma of this procedure overlapping lesion of are in the urinary organ results section. COMPLETE BLOOD COUNT W/ Routine 05/29/2022 12:17 Primary uroth elial DIFFERENTIAL PM CDT carcinoma of overlapping lesion of urinary organ COMPREHENSIVE METABOLIC Routine 05/29/2022 12:17 Primary uroth elial PANEL PM CDT carcinoma of overlapping lesion of urinary organ MANUAL DIFFERENTIAL Routine 05/19/2022 11:55 Primary urothelia l Results for AM CDT carcinoma of this procedure overlapping lesion of are in the urinary organ results section. Results CBC Routine 05/19/2022 11:55 Primary urothelial Resul ts for AM CDT carcinoma of this procedure overlapping lesion of are in the urinary organ results section. FRACTIONATED BILIRUBIN Routine 05/19/2022 11:55 Primary urothe lial Results for AM CDT carcinoma of this procedure overlapping lesion of are in the urinary organ results section. TOTAL PROTEIN Routine 05/19/2022 11:55 Primary urothelial Resu lts for AM CDT carcinoma of this procedure overlapping lesion of are in the urinary organ results section. ASPARTATE Routine 05/19/2022 11:55 Primary urothelial Resul ts for AMINOTRANSFERASE AM CDT carcinoma of this proced ure overlapping lesion of are in the urinary organ results section. ALANINE Routine 05/19/2022 11:55 Primary urothelial Resul ts for AMINOTRANSFERASE AM CDT carcinoma of this proced ure overlapping lesion of are in the urinary organ results section. ALKALINE PHOSPHATASE Routine 05/19/2022 11:55 Primary urotheli al Results for AM CDT carcinoma of this procedure overlapping lesion of are in the urinary organ results section. ALBUMIN LEVEL Routine 05/19/2022 11:55 Primary urothelial Resu lts for AM CDT carcinoma of this procedure overlapping lesion of are in the urinary organ results section. CALCIUM LEVEL TOTAL Routine 05/19/2022 11:55 Primary urothelia l Results for AM CDT carcinoma of this procedure overlapping lesion of are in the urinary organ results section. .GLOMERULAR FILTRATION Routine 05/19/2022 11:55 Primary urothe lial Results for RATE AM CDT carcinoma of this procedure overlapping lesion of are in the urinary organ results section. SERUM CREATININE Routine 05/19/2022 11:55 Primary urothelial R esults for AM CDT carcinoma of this procedure overlapping lesion of are in the urinary organ results section. ELECTROLYTE PANEL Routine 05/19/2022 11:55 Primary urothelial Results for AM CDT carcinoma of this procedure overlapping lesion of are in the urinary organ results section. BLOOD UREA NITROGEN Routine 05/19/2022 11:55 Primary urothelia l Results for AM CDT carcinoma of this procedure overlapping lesion of are in the urinary organ results section. GLUCOSE LEVEL Routine 05/19/2022 11:55 Primary urothelial Resu lts for AM CDT carcinoma of this procedure overlapping lesion of are in the urinary organ results section. THYROID STIMULATING Routine 05/19/2022 11:55 Primary urothelia l Results for HORMONE AM CDT carcinoma of this procedure overlapping lesion of are in the urinary organ results section. FREE THYROXINE Routine 05/19/2022 11:55 Primary urothelial Res ults for AM CDT carcinoma of this procedure overlapping lesion of are in the urinary organ results section. COMPLETE BLOOD COUNT W/ Routine 05/19/2022 11:55 Primary uroth elial DIFFERENTIAL AM CDT carcinoma of overlapping lesion of urinary organ COMPREHENSIVE METABOLIC Routine 05/19/2022 11:55 Primary uroth elial PANEL AM CDT carcinoma of overlapping lesion of urinary organ MANUAL DIFFERENTIAL Routine 04/24/2022 12:32 Malignant neoplas m of Results for PM [employer] overlapping sites of this pr ocedure urinary organs are in the results section. Results CBC Routine 04/24/2022 12:32 Malignant neoplasm of Re sults for PM [employer] overlapping sites of this pr ocedure urinary organs are in the results section. FRACTIONATED BILIRUBIN Routine 04/24/2022 12:32 Malignant neop lasm of Results for PM [employer] overlapping sites of this pr ocedure urinary organs are in the results section. TOTAL PROTEIN Routine 04/24/2022 12:32 Malignant neoplasm of R esults for PM [employer] overlapping sites of this pr ocedure urinary organs are in the results section. ASPARTATE Routine 04/24/2022 12:32 Malignant neoplasm of Re sults for AMINOTRANSFERASE PM [employer] overlapping sites of thi s procedure urinary organs are in the results section. ALANINE Routine 04/24/2022 12:32 Malignant neoplasm of Re sults for AMINOTRANSFERASE PM [employer] overlapping sites of thi s procedure urinary organs are in the results section. ALKALINE PHOSPHATASE Routine 04/24/2022 12:32 Malignant neopla sm of Results for PM [employer] overlapping sites of this pr ocedure urinary organs are in the results section. ALBUMIN LEVEL Routine 04/24/2022 12:32 Malignant neoplasm of R esults for PM [employer] overlapping sites of this pr ocedure urinary organs are in the results section. CALCIUM LEVEL TOTAL Routine 04/24/2022 12:32 Malignant neoplas m of Results for PM [employer] overlapping sites of this pr ocedure urinary organs are in the results section. .GLOMERULAR FILTRATION Routine 04/24/2022 12:32 Malignant neop lasm of Results for RATE PM [employer] overlapping sites of this pr ocedure urinary organs are in the results section. SERUM CREATININE Routine 04/24/2022 12:32 Malignant neoplasm o f Results for PM [employer] overlapping sites of this pr ocedure urinary organs are in the results section. ELECTROLYTE PANEL Routine 04/24/2022 12:32 Malignant neoplasm of Results for PM [employer] overlapping sites of this pr ocedure urinary organs are in the results section. BLOOD UREA NITROGEN Routine 04/24/2022 12:32 Malignant neoplas m of Results for PM [employer] overlapping sites of this pr ocedure urinary organs are in the results section. GLUCOSE LEVEL Routine 04/24/2022 12:32 Malignant neoplasm of R esults for PM [employer] overlapping sites of this pr ocedure urinary organs are in the results section. THYROID STIMULATING Routine 04/24/2022 12:32 Primary urothelia l Results for HORMONE PM [employer] carcinoma of this procedure overlapping lesion of are in the urinary organ results section. FREE THYROXINE Routine 04/24/2022 12:32 Primary urothelial Res ults for PM [employer] carcinoma of this procedure overlapping lesion of are in the urinary organ results section. COMPLETE BLOOD COUNT W/ Routine 04/24/2022 12:32 Primary uroth elial DIFFERENTIAL PM [employer] carcinoma of overlapping lesion of urinary organ COMPREHENSIVE METABOLIC Routine 04/24/2022 12:32 Primary uroth elial PANEL PM [employer] carcinoma of overlapping lesion of urinary organ MANUAL DIFFERENTIAL Routine 04/17/2022 10:09 Malignant neoplas m of Results for AM [employer] overlapping sites of this pr ocedure urinary organs are in the results section. Results CBC Routine 04/17/2022 10:09 Malignant neoplasm of Re sults for AM [employer] overlapping sites of this pr ocedure urinary organs are in the results section. FRACTIONATED BILIRUBIN Routine 04/17/2022 10:09 Malignant neop lasm of Results for AM [employer] overlapping sites of this pr ocedure urinary organs are in the results section. TOTAL PROTEIN Routine 04/17/2022 10:09 Malignant neoplasm of R esults for AM [employer] overlapping sites of this pr ocedure urinary organs are in the results section. ASPARTATE Routine 04/17/2022 10:09 Malignant neoplasm of Re sults for AMINOTRANSFERASE AM [employer] overlapping sites of thi s procedure urinary organs are in the results section. ALANINE Routine 04/17/2022 10:09 Malignant neoplasm of Re sults for AMINOTRANSFERASE AM [employer] overlapping sites of thi s procedure urinary organs are in the results section. ALKALINE PHOSPHATASE Routine 04/17/2022 10:09 Malignant neopla sm of Results for AM [employer] overlapping sites of this pr ocedure urinary organs are in the results section. ALBUMIN LEVEL Routine 04/17/2022 10:09 Malignant neoplasm of R esults for AM [employer] overlapping sites of this pr ocedure urinary organs are in the results section. CALCIUM LEVEL TOTAL Routine 04/17/2022 10:09 Malignant neoplas m of Results for AM [employer] overlapping sites of this pr ocedure urinary organs are in the results section. .GLOMERULAR FILTRATION Routine 04/17/2022 10:09 Malignant neop lasm of Results for RATE AM [employer] overlapping sites of this pr ocedure urinary organs are in the results section. SERUM CREATININE Routine 04/17/2022 10:09 Malignant neoplasm o f Results for AM [employer] overlapping sites of this pr ocedure urinary organs are in the results section. ELECTROLYTE PANEL Routine 04/17/2022 10:09 Malignant neoplasm of Results for AM [employer] overlapping sites of this pr ocedure urinary organs are in the results section. BLOOD UREA NITROGEN Routine 04/17/2022 10:09 Malignant neoplas m of Results for AM [employer] overlapping sites of this pr ocedure urinary organs are in the results section. GLUCOSE LEVEL Routine 04/17/2022 10:09 Malignant neoplasm of R esults for AM [employer] overlapping sites of this pr ocedure urinary organs are in the results section. THYROID STIMULATING Routine 04/17/2022 10:09 Primary urothelia l Results for HORMONE AM [employer] carcinoma of this procedure overlapping lesion of are in the urinary organ results section. FREE THYROXINE Routine 04/17/2022 10:09 Primary urothelial Res ults for AM [employer] carcinoma of this procedure overlapping lesion of are in the urinary organ results section. COMPLETE BLOOD COUNT W/ Routine 04/17/2022 10:09 Primary uroth elial DIFFERENTIAL AM [employer] carcinoma of overlapping lesion of urinary organ COMPREHENSIVE METABOLIC Routine 04/17/2022 10:09 Primary uroth elial PANEL AM [employer] carcinoma of overlapping lesion of urinary organ [facility] Routine 04/15/2022 2:22 Malignant neoplasm of Re sults for PM [employer] overlapping sites of this pr ocedure urinary organs are in the results section. GENERAL LABORATORY ADD STAT 04/14/2022 3:27 Primary urothel ial Results for ON TEST PM [employer] carcinoma of this procedure overlapping lesion of are in the urinary organ results section. URINALYSIS MICROSCOPIC Routine 04/14/2022 1:07 Re sults for EXAM PM [employer] this procedure are in the results section. URINALYSIS WITH Routine 04/14/2022 1:07 Primary urothelial Res ults for MICROSCOPIC IF PM [employer] carcinoma of this procedur e INDICATED overlapping sites of are in the urinary organs results section. IRON LEVEL Routine 04/14/2022 1:04 Results for PM [employer] this procedure are in the results section. TRANSFERRIN Routine 04/14/2022 1:04 Results for PM [employer] this procedure are in the results section. FERRITIN LVL Routine 04/14/2022 1:04 Results for PM [employer] this procedure are in the results section. FRACTIONATED BILIRUBIN Routine 04/14/2022 1:04 Primary urothel ial Results for PM [employer] carcinoma of this procedure overlapping sites of are in the urinary organs results section. TOTAL PROTEIN Routine 04/14/2022 1:04 Primary urothelial Resul ts for PM [employer] carcinoma of this procedure overlapping sites of are in the urinary organs results section. ASPARTATE Routine 04/14/2022 1:04 Primary urothelial Result s for AMINOTRANSFERASE PM [employer] carcinoma of this proced ure overlapping sites of are in the urinary organs results section. ALANINE Routine 04/14/2022 1:04 Primary urothelial Result s for AMINOTRANSFERASE PM [employer] carcinoma of this proced ure overlapping sites of are in the urinary organs results section. ALKALINE PHOSPHATASE Routine 04/14/2022 1:04 Primary urothelia l Results for PM [employer] carcinoma of this procedure overlapping sites of are in the urinary organs results section. ALBUMIN LEVEL Routine 04/14/2022 1:04 Primary urothelial Resul ts for PM [employer] carcinoma of this procedure overlapping sites of are in the urinary organs results section. CALCIUM LEVEL TOTAL Routine 04/14/2022 1:04 Primary urothelial Results for PM [employer] carcinoma of this procedure overlapping sites of are in the urinary organs results section. .GLOMERULAR FILTRATION Routine 04/14/2022 1:04 Primary urothel ial Results for RATE PM [employer] carcinoma of this procedure overlapping sites of are in the urinary organs results section. SERUM CREATININE Routine 04/14/2022 1:04 Primary urothelial Re sults for PM [employer] carcinoma of this procedure overlapping sites of are in the urinary organs results section. 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 BLOOD UREA NITROGEN Routine 04/14/2022 1:04 Primary urothelial Results for PM [employer] carcinoma of this procedure overlapping sites of are in the urinary organs results section. GLUCOSE LEVEL Routine 04/14/2022 1:04 Primary urothelial Resul ts for PM [employer] carcinoma of this procedure overlapping sites of are in the urinary organs results section. MANUAL DIFFERENTIAL Routine 04/14/2022 1:04 Primary urothelial Results for PM [employer] carcinoma of this procedure overlapping sites of are in the urinary organs results section. Results CBC Routine 04/14/2022 1:04 Primary urothelial Result s for PM [employer] carcinoma of this procedure overlapping sites of are in the urinary organs results section. APTT Routine 04/14/2022 1:04 Primary urothelial Result s for PM [employer] carcinoma of this procedure overlapping sites of are in the urinary organs results section. PROTHROMBIN TIME Routine 04/14/2022 1:04 Primary urothelial Re sults for PM [employer] carcinoma of this procedure overlapping sites of are in the urinary organs results section. LIPID PANEL Routine 04/14/2022 1:04 Primary urothelial Result s for PM [employer] carcinoma of this procedure overlapping sites of are in the urinary organs results section. COMPREHENSIVE METABOLIC Routine 04/14/2022 1:04 Primary urothe lial PANEL PM [employer] carcinoma of overlapping sites of urinary organs COMPLETE BLOOD COUNT W/ Routine 04/14/2022 1:04 Primary urothe lial DIFFERENTIAL PM [employer] carcinoma of overlapping sites of urinary organs CT CHEST ABDOMEN PELVIS Routine 04/14/2022 12:40 Primary uroth elial Results for W CONTRAST PM [employer] carcinoma of this procedure overlapping sites of are in the urinary organs results section. IR NEPHROSTOMY EXCHANGE Routine 04/13/2022 2:31 Primary urothe lial Results for 60 PM [employer] carcinoma of this procedure overlapping sites of are in the urinary organs results section. CALCIUM LEVEL TOTAL Routine 04/08/2022 1:27 Malignant neoplasm of Results for PM [employer] overlapping sites of this pr ocedure urinary organs are in the results section. .GLOMERULAR FILTRATION Routine 04/08/2022 1:27 Malignant neopl asm of Results for RATE PM [employer] overlapping sites of this pr ocedure urinary organs are in the results section. SERUM CREATININE Routine 04/08/2022 1:27 Malignant neoplasm of Results for PM [employer] overlapping sites of this pr ocedure urinary organs are in the results section. ELECTROLYTE PANEL Routine 04/08/2022 1:27 Malignant neoplasm o f Results for PM [employer] overlapping sites of this pr ocedure urinary organs are in the results section. BLOOD UREA NITROGEN Routine 04/08/2022 1:27 Malignant neoplasm of Results for PM [employer] overlapping sites of this pr ocedure urinary organs are in the results section. GLUCOSE LEVEL Routine 04/08/2022 1:27 Malignant neoplasm of Re sults for PM [employer] overlapping sites of this pr ocedure urinary organs are in the results section. FIBRINOGEN ACTIVITY Routine 04/08/2022 1:27 Primary urothelial Results for PM [employer] carcinoma of this procedure overlapping lesion of are in the urinary organ results section. APTT Routine 04/08/2022 1:27 Primary urothelial Result s for PM [employer] carcinoma of this procedure overlapping lesion of are in the urinary organ results section. PROTHROMBIN TIME Routine 04/08/2022 1:27 Primary urothelial Re sults for PM [employer] carcinoma of this procedure overlapping lesion of are in the urinary organ results section. BASIC METABOLIC PANEL, Routine 04/08/2022 1:27 Primary urothel ial CALCIUM TOTAL PM [employer] carcinoma of overlapping lesion of urinary organ URINALYSIS MICROSCOPIC Routine 04/06/2022 6:31 Re sults for EXAM PM [employer] this procedure are in the results section. URINALYSIS WITH Routine 04/06/2022 6:31 Results f or MICROSCOPIC IF PM [employer] this procedur e INDICATED are in the results section. URINE CULTURE Routine 04/06/2022 6:31 Results for PM [employer] this procedure are in the results section. US RENAL Routine 04/06/2022 5:19 Results for PM [employer] this procedure are in the results section. URINE CULTURE Routine 04/06/2022 4:56 Results for PM [employer] this procedure are in the results section. URINE CULTURE Routine 04/06/2022 4:56 Results for PM [employer] this procedure are in the results section. URINALYSIS MICROSCOPIC Routine 04/06/2022 4:31 Re sults for EXAM PM [employer] this procedure are in the results section. URINALYSIS WITH Routine 04/06/2022 4:31 Results f or MICROSCOPIC IF PM [employer] this procedur e INDICATED are in the results section. FRACTIONATED BILIRUBIN Routine 04/06/2022 3:18 Re sults for PM [employer] this procedure are in the results section. TOTAL PROTEIN Routine 04/06/2022 3:18 Results for PM [employer] this procedure are in the results section. ASPARTATE Routine 04/06/2022 3:18 Results for AMINOTRANSFERASE PM [employer] this proced ure are in the results section. ALANINE Routine 04/06/2022 3:18 Results for AMINOTRANSFERASE PM [employer] this proced ure are in the results section. ALKALINE PHOSPHATASE Routine 04/06/2022 3:18 Resu lts for PM [employer] this procedure are in the results section. ALBUMIN LEVEL Routine 04/06/2022 3:18 Results for PM [employer] this procedure are in the results section. CALCIUM LEVEL TOTAL Routine 04/06/2022 3:18 Resul ts for PM [employer] this procedure are in the results section. .GLOMERULAR FILTRATION Routine 04/06/2022 3:18 Re sults for RATE PM [employer] this procedure are in the results section. SERUM CREATININE Routine 04/06/2022 3:18 Results for PM [employer] this procedure are in the results section. ELECTROLYTE PANEL Routine 04/06/2022 3:18 Results for PM [employer] this procedure are in the results section. BLOOD UREA NITROGEN Routine 04/06/2022 3:18 Resul ts for PM [employer] this procedure are in the results section. GLUCOSE LEVEL Routine 04/06/2022 3:18 Results for PM [employer] this procedure are in the results section. MANUAL DIFFERENTIAL Routine 04/06/2022 3:18 Resul ts for PM [employer] this procedure are in the results section. Results CBC STAT 04/06/2022 3:18 Results for PM [employer] this procedure are in the results section. APTT Routine 04/06/2022 3:18 Results for PM [employer] this procedure are in the results section. PROTHROMBIN TIME Routine 04/06/2022 3:18 Results for PM [employer] this procedure are in the results section. PHOSPHORUS LEVEL Routine 04/06/2022 3:18 Results for PM [employer] this procedure are in the results section. MAGNESIUM LEVEL Routine 04/06/2022 3:18 Results f or PM [employer] this procedure are in the results section. COMPREHENSIVE METABOLIC Routine 04/06/2022 3:18 PANEL PM [employer] COMPLETE BLOOD COUNT W/ Routine 04/06/2022 3:18 DIFFERENTIAL PM [employer] COVID-19 (SARS-COV-2) Routine 04/06/2022 3:18 Res ults for ASYMPTOMATIC-LT PM [employer] this procedu re are in the results section. NM GATED CARDIAC Routine 03/31/2022 12:19 Primary urothelial R esults for PM [employer] carcinoma of this procedure overlapping sites of are in the urinary organs results section. 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 urinary organs URINE CULTURE Now 03/16/2022 11:42 Results fo r AM [employer] this procedure are in the results section. FUNGUS CULTURE W/ SMEAR Now 03/16/2022 11:42 Results for AM [employer] this procedure are in the results section. AFB CULTURE W/ SMEAR Now 03/16/2022 11:42 Res ults for AM [employer] this procedure are in the results section. COVID-19 (SARS-COV-2) Routine 03/14/2022 2:28 Suspected COVID- 19 Results for PCR-ASYMPTOMATIC MC PM [employer] this pro cedure are in the results section. [employer] Routine 03/12/2022 9:31 Primary urothelial Resul ts for AM [employer] carcinoma of this procedure overlapping sites of are in the urinary organs results section. CT CHEST ABDOMEN PELVIS Routine 03/10/2022 2:30 Malignant neop lasm of Results for W CONTRAST PM [employer] overlapping sites of this pr ocedure urinary organs are in the results section. URINALYSIS MICROSCOPIC Routine 03/10/2022 12:53 R esults for EXAM PM [employer] this procedure are in the results section. URINALYSIS WITH Routine 03/10/2022 12:53 Malignant neoplasm of Results for MICROSCOPIC IF PM [employer] overlapping sites of this procedure INDICATED urinary organs are in the results section. FRACTIONATED BILIRUBIN Routine 03/10/2022 12:52 Malignant neop lasm of Results for PM [employer] overlapping sites of this pr ocedure urinary organs are in the results section. TOTAL PROTEIN Routine 03/10/2022 12:52 Malignant neoplasm of R esults for PM [employer] overlapping sites of this pr ocedure urinary organs are in the results section. ASPARTATE Routine 03/10/2022 12:52 Malignant neoplasm of Re sults for AMINOTRANSFERASE PM [employer] overlapping sites of thi s procedure urinary organs are in the results section. ALANINE Routine 03/10/2022 12:52 Malignant neoplasm of Re sults for AMINOTRANSFERASE PM [employer] overlapping sites of thi s procedure urinary organs are in the results section. ALKALINE PHOSPHATASE Routine 03/10/2022 12:52 Malignant neopla sm of Results for PM [employer] overlapping sites of this pr ocedure urinary organs are in the results section. ALBUMIN LEVEL Routine 03/10/2022 12:52 Malignant neoplasm of R esults for PM [employer] overlapping sites of this pr ocedure urinary organs are in the results section. CALCIUM LEVEL TOTAL Routine 03/10/2022 12:52 Malignant neoplas m of Results for PM [employer] overlapping sites of this pr ocedure urinary organs are in the results section. .GLOMERULAR FILTRATION Routine 03/10/2022 12:52 Malignant neop lasm of Results for RATE PM [employer] overlapping sites of this pr ocedure urinary organs are in the results section. SERUM CREATININE Routine 03/10/2022 12:52 Malignant neoplasm o f Results for PM [employer] overlapping sites of this pr ocedure urinary organs are in the results section. ELECTROLYTE PANEL Routine 03/10/2022 12:52 Malignant neoplasm of Results for PM [employer] overlapping sites of this pr ocedure urinary organs are in the results section. BLOOD UREA NITROGEN Routine 03/10/2022 12:52 Malignant neoplas m of Results for PM [employer] overlapping sites of this pr ocedure urinary organs are in the results section. GLUCOSE LEVEL Routine 03/10/2022 12:52 Malignant neoplasm of R esults for PM [employer] overlapping sites of this pr ocedure urinary organs are in the results section. MANUAL DIFFERENTIAL Routine 03/10/2022 12:52 Malignant neoplas m of Results for PM [employer] overlapping sites of this pr ocedure urinary organs are in the results section. Results CBC Routine 03/10/2022 12:52 Malignant neoplasm of Re sults for PM [employer] overlapping sites of this pr ocedure urinary organs are in the results section. FREE THYROXINE Routine 03/10/2022 12:52 Malignant neoplasm of Results for PM [employer] overlapping sites of this pr ocedure urinary organs are in the results section. FREE T3 Routine 03/10/2022 12:52 Malignant neoplasm of Re sults for PM [employer] overlapping sites of this pr ocedure urinary organs are in the results section. THYROID STIMULATING Routine 03/10/2022 12:52 Malignant neoplas m of Results for HORMONE PM [employer] overlapping sites of this pr ocedure urinary organs are in the results section. APTT Routine 03/10/2022 12:52 Malignant neoplasm of Re sults for PM [employer] overlapping sites of this pr ocedure urinary organs are in the results section. PROTHROMBIN TIME Routine 03/10/2022 12:52 Malignant neoplasm o f Results for PM [employer] overlapping sites of this pr ocedure urinary organs are in the results section. URIC ACID Routine 03/10/2022 12:52 Malignant neoplasm of Re sults for PM [employer] overlapping sites of this pr ocedure urinary organs are in the results section. LACTATE DEHYDROGENASE Routine 03/10/2022 12:52 Malignant neopl asm of Results for PM [employer] overlapping sites of this pr ocedure urinary organs are in the results section. PHOSPHORUS LEVEL Routine 03/10/2022 12:52 Malignant neoplasm o f Results for PM [employer] overlapping sites of this pr ocedure urinary organs are in the results section. MAGNESIUM LEVEL Routine 03/10/2022 12:52 Malignant neoplasm of Results for PM [employer] overlapping sites of this pr ocedure urinary organs are in the results section. COMPREHENSIVE METABOLIC Routine 03/10/2022 12:52 Malignant cristina plasm of PANEL PM [employer] overlapping sites of urinary organs COMPLETE BLOOD COUNT W/ Routine 03/10/2022 12:52 Malignant cristina plasm of DIFFERENTIAL PM [employer] overlapping sites of urinary organs MRI CERVICAL THORACIC Routine 02/20/2022 2:34 Primary urotheli al Results for LUMBAR SPINE W WO PM [employer] carcinoma of this proce dure CONTRAST overlapping sites of are in the urinary organs results section. URINALYSIS MICROSCOPIC Routine 02/10/2022 12:19 R esults for PM [employer] this procedure are in the results section. FRACTIONATED BILIRUBIN Routine 02/10/2022 12:19 Primary urothe lial Results for PM [employer] carcinoma of this procedure overlapping sites of are in the urinary organs results section. TOTAL PROTEIN Routine 02/10/2022 12:19 Primary urothelial Resu lts for PM [employer] carcinoma of this procedure overlapping sites of are in the urinary organs results section. ASPARTATE Routine 02/10/2022 12:19 Primary urothelial Resul ts for AMINOTRANSFERASE PM [employer] carcinoma of this proced ure overlapping sites of are in the urinary organs results section. ALANINE Routine 02/10/2022 12:19 Primary urothelial Resul ts for AMINOTRANSFERASE PM [employer] carcinoma of this proced ure overlapping sites of are in the urinary organs results section. ALKALINE PHOSPHATASE Routine 02/10/2022 12:19 Primary urotheli al Results for PM [employer] carcinoma of this procedure overlapping sites of are in the urinary organs results section. ALBUMIN LEVEL Routine 02/10/2022 12:19 Primary urothelial Resu lts for PM [employer] carcinoma of this procedure overlapping sites of are in the urinary organs results section. CALCIUM LEVEL TOTAL Routine 02/10/2022 12:19 Primary urothelia l Results for PM [employer] carcinoma of this procedure overlapping sites of are in the urinary organs results section. .GLOMERULAR FILTRATION Routine 02/10/2022 12:19 Primary urothe lial Results for RATE PM [employer] carcinoma of this procedure overlapping sites of are in the urinary organs results section. SERUM CREATININE Routine 02/10/2022 12:19 Primary urothelial R esults for PM [employer] carcinoma of this procedure overlapping sites of are in the urinary organs results section. ELECTROLYTE PANEL Routine 02/10/2022 12:19 Primary urothelial Results for PM [employer] carcinoma of this procedure overlapping sites of are in the urinary organs results section. BLOOD UREA NITROGEN Routine 02/10/2022 12:19 Primary urothelia l Results for PM [employer] carcinoma of this procedure overlapping sites of are in the urinary organs results section. GLUCOSE LEVEL Routine 02/10/2022 12:19 Primary urothelial Resu lts for PM [employer] carcinoma of this procedure overlapping sites of are in the urinary organs results section. MANUAL DIFFERENTIAL Routine 02/10/2022 12:19 Primary urothelia l Results for PM [employer] carcinoma of this procedure overlapping sites of are in the urinary organs results section. Results CBC Routine 02/10/2022 12:19 Primary urothelial Resul ts for PM [employer] carcinoma of this procedure overlapping sites of are in the urinary organs results section. URINALYSIS WITH Routine 02/10/2022 12:19 Primary urothelial Re sults for MICROSCOPIC IF PM [employer] carcinoma of this procedur e INDICATED overlapping sites of are in the urinary organs results section. FREE THYROXINE Routine 02/10/2022 12:19 Primary urothelial Res ults for PM [employer] carcinoma of this procedure overlapping sites of are in the urinary organs results section. FREE T3 Routine 02/10/2022 12:19 Primary urothelial Resul ts for PM [employer] carcinoma of this procedure overlapping sites of are in the urinary organs results section. THYROID STIMULATING Routine 02/10/2022 12:19 Primary urothelia l Results for HORMONE PM [employer] carcinoma of this procedure overlapping sites of are in the urinary organs results section. APTT Routine 02/10/2022 12:19 Primary urothelial Resul ts for PM [employer] carcinoma of this procedure overlapping sites of are in the urinary organs results section. PROTHROMBIN TIME Routine 02/10/2022 12:19 Primary urothelial R esults for PM [employer] carcinoma of this procedure overlapping sites of are in the urinary organs results section. URIC ACID Routine 02/10/2022 12:19 Primary urothelial Resul ts for PM [employer] carcinoma of this procedure overlapping sites of are in the urinary organs results section. LACTATE DEHYDROGENASE Routine 02/10/2022 12:19 Primary urothel ial Results for PM [employer] carcinoma of this procedure overlapping sites of are in the urinary organs results section. PHOSPHORUS LEVEL Routine 02/10/2022 12:19 Primary urothelial R esults for PM [employer] carcinoma of this procedure overlapping sites of are in the urinary organs results section. MAGNESIUM LEVEL Routine 02/10/2022 12:19 Primary urothelial Re sults for PM [employer] carcinoma of this procedure overlapping sites of are in the urinary organs results section. COMPREHENSIVE METABOLIC Routine 02/10/2022 12:19 Primary uroth elial PANEL PM [employer] carcinoma of overlapping sites of urinary organs COMPLETE BLOOD COUNT W/ Routine 02/10/2022 12:19 Primary uroth elial DIFFERENTIAL PM [employer] carcinoma of overlapping sites of urinary organs URINALYSIS MICROSCOPIC Routine 02/04/2022 2:53 Re sults for PM [employer] this procedure are in the results section. URINALYSIS WITH Routine 02/04/2022 2:53 Primary urothelial Res ults for MICROSCOPIC IF PM [employer] carcinoma of this procedur e INDICATED overlapping lesion of are in the urinary organ results section. URINE CULTURE Routine 02/04/2022 2:53 Primary urothelial Resul ts for PM [employer] carcinoma of this procedure overlapping lesion of are in the urinary organ results section. NM BONE SCAN WHOLE BODY Routine 01/23/2022 2:59 Malignant neop lasm of Results for PM [employer] overlapping sites of this pr ocedure urinary organs are in the results section. XR HIP 2 VW BILATERAL W Routine 01/23/2022 12:44 Malignant cristina plasm of Results for PELVIS PM [employer] overlapping sites of this pr ocedure urinary organs are in the results section. [facility] Routine 01/13/2022 2:02 Primary urothelial Resul ts for PM [employer] carcinoma of this procedure overlapping sites of are in the urinary organs results section. CT CHEST ABDOMEN PELVIS Routine 01/09/2022 1:56 Malignant neop lasm of Results for W CONTRAST PM CDT overlapping sites of this pr ocedure urinary organs are in the results section. URINALYSIS MICROSCOPIC Routine 01/09/2022 11:25 R esults for AM CDT this procedure are in the results section. URINALYSIS WITH Routine 01/09/2022 11:25 Malignant neoplasm of Results for MICROSCOPIC IF AM CDT overlapping sites of this procedure INDICATED urinary organs are in the results section. MANUAL DIFFERENTIAL Routine 01/09/2022 11:20 Malignant neoplas m of Results for AM CDT overlapping sites of this pr ocedure urinary organs are in the results section. Results CBC Routine 01/09/2022 11:20 Malignant neoplasm of Re sults for AM CDT overlapping sites of this pr ocedure urinary organs are in the results section. FRACTIONATED BILIRUBIN Routine 01/09/2022 11:20 Malignant neop lasm of Results for AM CDT overlapping sites of this pr ocedure urinary organs are in the results section. TOTAL PROTEIN Routine 01/09/2022 11:20 Malignant neoplasm of R esults for AM CDT overlapping sites of this pr ocedure urinary organs are in the results section. ASPARTATE Routine 01/09/2022 11:20 Malignant neoplasm of Re sults for AMINOTRANSFERASE AM CDT overlapping sites of thi s procedure urinary organs are in the results section. ALANINE Routine 01/09/2022 11:20 Malignant neoplasm of Re sults for AMINOTRANSFERASE AM CDT overlapping sites of thi s procedure urinary organs are in the results section. ALKALINE PHOSPHATASE Routine 01/09/2022 11:20 Malignant neopla sm of Results for AM CDT overlapping sites of this pr ocedure urinary organs are in the results section. ALBUMIN LEVEL Routine 01/09/2022 11:20 Malignant neoplasm of R esults for AM CDT overlapping sites of this pr ocedure urinary organs are in the results section. ELECTROLYTE PANEL Routine 01/09/2022 11:20 Malignant neoplasm of Results for AM CDT overlapping sites of this pr ocedure urinary organs are in the results section. BLOOD UREA NITROGEN Routine 01/09/2022 11:20 Malignant neoplas m of Results for AM CDT overlapping sites of this pr ocedure urinary organs are in the results section. GLUCOSE LEVEL Routine 01/09/2022 11:20 Malignant neoplasm of R esults for AM CDT overlapping sites of this pr ocedure urinary organs are in the results section. .GLOMERULAR FILTRATION Routine 01/09/2022 11:20 Secondary sigrid gnant Results for RATE AM CDT neoplasm of bone this procedure Personal history of are in t he malignant neoplasm of result s bladder section. SERUM CREATININE Routine 01/09/2022 11:20 Secondary malignant Results for AM CDT neoplasm of bone this procedure Personal history of are in t he malignant neoplasm of result s bladder section. FREE THYROXINE Routine 01/09/2022 11:20 Malignant neoplasm of Results for AM CDT overlapping sites of this pr ocedure urinary organs are in the results section. FREE T3 Routine 01/09/2022 11:20 Malignant neoplasm of Re sults for AM CDT overlapping sites of this pr ocedure urinary organs are in the results section. THYROID STIMULATING Routine 01/09/2022 11:20 Malignant neoplas m of Results for HORMONE AM CDT overlapping sites of this pr ocedure urinary organs are in the results section. APTT Routine 01/09/2022 11:20 Malignant neoplasm of Re sults for AM CDT overlapping sites of this pr ocedure urinary organs are in the results section. PROTHROMBIN TIME Routine 01/09/2022 11:20 Malignant neoplasm o f Results for AM CDT overlapping sites of this pr ocedure urinary organs are in the results section. URIC ACID Routine 01/09/2022 11:20 Malignant neoplasm of Re sults for AM CDT overlapping sites of this pr ocedure urinary organs are in the results section. LACTATE DEHYDROGENASE Routine 01/09/2022 11:20 Malignant neopl asm of Results for AM CDT overlapping sites of this pr ocedure urinary organs are in the results section. MAGNESIUM LEVEL Routine 01/09/2022 11:20 Malignant neoplasm of Results for AM CDT overlapping sites of this pr ocedure urinary organs are in the results section. COMPREHENSIVE METABOLIC Routine 01/09/2022 11:20 Malignant cristina plasm of PANEL AM CDT overlapping sites of urinary organs COMPLETE BLOOD COUNT W/ Routine 01/09/2022 11:20 Malignant cristina plasm of DIFFERENTIAL AM CDT overlapping sites of urinary organs SERUM CREATININE Routine 01/09/2022 11:20 Secondary malignant AM CDT neoplasm of bone Personal history of malignant neoplasm of bladder PHOSPHORUS LEVEL Routine 01/09/2022 11:20 Secondary malignant Results for AM CDT neoplasm of bone this procedure Personal history of are in t he malignant neoplasm of result s bladder section. CALCIUM LEVEL TOTAL Routine 01/09/2022 11:20 Secondary maligna nt Results for AM CDT neoplasm of bone this procedure Personal history of are in t he malignant neoplasm of result s bladder section. FRACTIONATED BILIRUBIN Routine 12/30/2021 12:14 Malignant neop lasm of Results for PM CDT overlapping sites of this pr ocedure urinary organs are in the results section. TOTAL PROTEIN Routine 12/30/2021 12:14 Malignant neoplasm of R esults for PM CDT overlapping sites of this pr ocedure urinary organs are in the results section. ASPARTATE Routine 12/30/2021 12:14 Malignant neoplasm of Re sults for AMINOTRANSFERASE PM CDT overlapping sites of thi s procedure urinary organs are in the results section. ALANINE Routine 12/30/2021 12:14 Malignant neoplasm of Re sults for AMINOTRANSFERASE PM CDT overlapping sites of thi s procedure urinary organs are in the results section. ALKALINE PHOSPHATASE Routine 12/30/2021 12:14 Malignant neopla sm of Results for PM CDT overlapping sites of this pr ocedure urinary organs are in the results section. ALBUMIN LEVEL Routine 12/30/2021 12:14 Malignant neoplasm of R esults for PM CDT overlapping sites of this pr ocedure urinary organs are in the results section. CALCIUM LEVEL TOTAL Routine 12/30/2021 12:14 Malignant neoplas m of Results for PM CDT overlapping sites of this pr ocedure urinary organs are in the results section. .GLOMERULAR FILTRATION Routine 12/30/2021 12:14 Malignant neop lasm of Results for RATE PM CDT overlapping sites of this pr ocedure urinary organs are in the results section. SERUM CREATININE Routine 12/30/2021 12:14 Malignant neoplasm o f Results for PM CDT overlapping sites of this pr ocedure urinary organs are in the results section. ELECTROLYTE PANEL Routine 12/30/2021 12:14 Malignant neoplasm of Results for PM CDT overlapping sites of this pr ocedure urinary organs are in the results section. BLOOD UREA NITROGEN Routine 12/30/2021 12:14 Malignant neoplas m of Results for PM CDT overlapping sites of this pr ocedure urinary organs are in the results section. GLUCOSE LEVEL Routine 12/30/2021 12:14 Malignant neoplasm of R esults for PM CDT overlapping sites of this pr ocedure urinary organs are in the results section. COMPREHENSIVE METABOLIC Routine 12/30/2021 12:14 Malignant cristina plasm of PANEL PM CDT overlapping sites of urinary organs [...] organs are in the results section. ALANINE Routine 12/16/2021 9:39 Malignant neoplasm of Res [...] Malignant neoplasm of Results for MICROSCOPIC IF AM CDT overlapping sites of this procedure INDICATED urinary organs are in the results section. [...] urinary organs IR NEPHROSTOMY EXCHANGE Routine 12/15/2021 11:30 Results for 60 AM CDT this procedure are in the results section. [facility] Routine 11/27/2021 8:40 Primary urothelial Resul ts for AM CDT carcinoma of this procedure overlapping lesion of are in the urinary organ results section. CT CHEST ABDOMEN PELVIS Routine 11/18/2021 11:03 Primary uroth elial Results for W CONTRAST AM CDT carcinoma of this procedure overlapping [...] in the urinary organ results section. ALANINE Routine 11/18/2021 9:33 Primary urothelial Result s [...] Primary urothelial Res ults for MICROSCOPIC IF AM CDT carcinoma of this procedur e INDICATED overlapping lesion of are in the urinary [...] section. IR CT GUIDED BIOPSY Routine 11/04/2021 11:10 Primary urothelia l Results for PELVIC NON-BONE 60 AM CDT carcinoma of this proc edure [...] in the urinary organ results section. ALANINE Routine 10/21/2021 8:00 Primary urothelial Result s [...] Primary urothelial Res ults for MICROSCOPIC IF AM CDT carcinoma of this procedur e INDICATED overlapping lesion of are in the urinary [...] in the urinary organ results section. ALANINE Routine 10/14/2021 1:23 Primary urothelial Result s [...] Primary urothelial Res ults for MICROSCOPIC IF PM CDT carcinoma of this procedur e INDICATED overlapping lesion of are in the urinary [...] in the urinary organ results section. ALANINE Routine 10/08/2021 9:25 Primary urothelial Result s [...] Primary urothelial Res ults for MICROSCOPIC IF AM CDT carcinoma of this procedur e INDICATED overlapping lesion of are in the urinary [...] in the urinary organ results section. ALANINE Routine 09/30/2021 9:43 Primary urothelial Result s [...] Primary urothelial Res ults for MICROSCOPIC IF AM CDT carcinoma of this procedur e INDICATED overlapping lesion of are in the urinary [...] carcinoma of overlapping lesion of urinary organ [facility] Routine 09/23/2021 10:11 Primary urothelial Resu lts for AM CDT carcinoma of this procedure overlapping lesion of are in the urinary organ results section. IR CT GUIDED BIOPSY Routine 09/19/2021 4:09 Screening fo r cancer Results for LYMPH NODE 60 PM CDT Primary urothelial this pro cedure carcinoma of are in the overlapping lesion of result s urinary organ section. URINALYSIS MICROSCOPIC Routine 09/19/2021 1:21 Re sults for PM CDT this procedure are in the results section. URINALYSIS WITH Routine 09/19/2021 1:21 Secondary malignant Re sults for MICROSCOPIC IF PM CDT neoplasm of bone this proc edure INDICATED are in the results section. FRACTIONATED BILIRUBIN [...] ocedure are in the results section. ALANINE Routine 09/19/2021 1:18 Secondary malignant Resul ts for AMINOTRANSFERASE PM CDT neoplasm of bone this pr ocedure are in the results section. 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 [facility] Routine 09/12/2021 7:17 Screening for ca ncer Results for AM CDT Primary urothelial this proc edure carcinoma of are in the overlapping lesion of result s urinary organ section. CT CHEST ABDOMEN PELVIS Routine 09/10/2021 7:38 Screenin g for cancer Results for W CONTRAST PM CDT Primary urothelial this proc [...] of result s urinary organ section. 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 URINALYSIS MICROSCOPIC Routine 08/19/2021 11:08 R esults for AM CDT this procedure are in the results section. PROTEIN / CREATININE Routine 08/19/2021 11:08 Primary urotheli al Results for RATIO URINE AM CDT carcinoma of this procedure overlapping lesion of are in the urinary organ results section. URINALYSIS WITH Routine 08/19/2021 11:08 Primary urothelial Re sults for MICROSCOPIC IF AM CDT carcinoma of this procedur e INDICATED overlapping lesion of are in the urinary organ results section. MANUAL DIFFERENTIAL Routine 08/19/2021 11:04 Primary urothelia l Results for AM CDT carcinoma of this procedure overlapping lesion of are in the urinary organ results section. Results CBC Routine 08/19/2021 11:04 Primary urothelial Resul ts for AM CDT carcinoma of this procedure overlapping lesion of are in the urinary organ results section. FRACTIONATED BILIRUBIN Routine 08/19/2021 11:04 Primary urothe lial Results for AM CDT carcinoma of this procedure overlapping lesion of are in the urinary organ results section. TOTAL PROTEIN Routine 08/19/2021 11:04 Primary urothelial Resu lts for AM CDT carcinoma of this procedure overlapping lesion of are in the urinary organ results section. ASPARTATE Routine 08/19/2021 11:04 Primary urothelial Resul ts for AMINOTRANSFERASE AM CDT carcinoma of this proced ure overlapping lesion of are in the urinary organ results section. ALANINE Routine 08/19/2021 11:04 Primary urothelial Resul ts for AMINOTRANSFERASE AM CDT carcinoma of this proced ure overlapping lesion of are in the urinary organ results section. ALKALINE PHOSPHATASE Routine 08/19/2021 11:04 Primary urotheli al Results for AM CDT carcinoma of this procedure overlapping lesion of are in the urinary organ results section. ALBUMIN LEVEL Routine 08/19/2021 11:04 Primary urothelial Resu lts for AM CDT carcinoma of this procedure overlapping lesion of are in the urinary organ results section. CALCIUM LEVEL TOTAL Routine 08/19/2021 11:04 Primary urothelia l Results for AM CDT carcinoma of this procedure overlapping lesion of are in the urinary organ results section. .GLOMERULAR FILTRATION Routine 08/19/2021 11:04 Primary urothe lial Results for RATE AM CDT carcinoma of this procedure overlapping lesion of are in the urinary organ results section. SERUM CREATININE Routine 08/19/2021 11:04 Primary urothelial R esults for AM CDT carcinoma of this procedure overlapping lesion of are in the urinary organ results section. ELECTROLYTE PANEL Routine 08/19/2021 11:04 Primary urothelial Results for AM CDT carcinoma of this procedure overlapping lesion of are in the urinary organ results section. BLOOD UREA NITROGEN Routine 08/19/2021 11:04 Primary urothelia l Results for AM CDT carcinoma of this procedure overlapping lesion of are in the urinary organ results section. GLUCOSE LEVEL Routine 08/19/2021 11:04 Primary urothelial Resu lts for AM CDT carcinoma of this procedure overlapping lesion of are in the urinary organ results section. COMPREHENSIVE METABOLIC Routine 08/19/2021 11:04 Primary uroth elial PANEL AM CDT carcinoma of overlapping lesion of urinary organ MAGNESIUM LEVEL Routine 08/19/2021 11:04 Primary urothelial Re sults for AM CDT carcinoma of this procedure overlapping lesion of are in the urinary organ results section. COMPLETE BLOOD COUNT W/ Routine 08/19/2021 11:04 Primary uroth elial DIFFERENTIAL AM CDT carcinoma of overlapping lesion of urinary organ LIPASE LEVEL Routine 08/19/2021 11:04 Primary urothelial Resul ts for AM CDT carcinoma of this procedure overlapping lesion of are in the urinary organ results section. AMYLASE LEVEL Routine 08/19/2021 11:04 Primary urothelial Resu lts for AM CDT carcinoma of this procedure overlapping lesion of are in the urinary organ results section. FREE THYROXINE Routine 08/19/2021 11:04 Primary urothelial Res ults for AM CDT carcinoma of this procedure overlapping lesion of are in the urinary organ results section. THYROID STIMULATING Routine 08/19/2021 11:04 Primary urothelia l Results for HORMONE AM CDT carcinoma of this procedure overlapping lesion of are in the urinary organ results section. PHOSPHORUS LEVEL Routine 08/19/2021 11:04 Primary urothelial R esults for AM CDT carcinoma of this procedure overlapping lesion of are in the urinary organ results section. CT CHEST ABDOMEN PELVIS Routine 08/19/2021 10:03 Primary uroth elial Results for W CONTRAST AM CDT carcinoma of this procedure overlapping lesion of are in the urinary organ results section. POC CREATININE Routine 08/19/2021 9:02 Results fo r AM CDT this procedure are in the results section. MANUAL DIFFERENTIAL Routine 08/05/2021 10:52 Primary urothelia l Results for AM CDT carcinoma of this procedure overlapping lesion of are in the urinary organ results section. FRACTIONATED BILIRUBIN Routine 08/05/2021 10:52 Primary urothe lial Results for AM CDT carcinoma of this procedure overlapping lesion of are in the urinary organ results section. Results CBC Routine 08/05/2021 10:52 Primary urothelial Resul ts for AM CDT carcinoma of this procedure overlapping lesion of are in the urinary organ results section. TOTAL PROTEIN Routine 08/05/2021 10:52 Primary urothelial Resu lts for AM CDT carcinoma of this procedure overlapping lesion of are in the urinary organ results section. ASPARTATE Routine 08/05/2021 10:52 Primary urothelial Resul ts for AMINOTRANSFERASE AM CDT carcinoma of this proced ure overlapping lesion of are in the urinary organ results section. ALANINE Routine 08/05/2021 10:52 Primary urothelial Resul ts for AMINOTRANSFERASE AM CDT carcinoma of this proced ure overlapping lesion of are in the urinary organ results section. ALKALINE PHOSPHATASE Routine 08/05/2021 10:52 Primary urotheli al Results for AM CDT carcinoma of this procedure overlapping lesion of are in the urinary organ results section. ALBUMIN LEVEL Routine 08/05/2021 10:52 Primary urothelial Resu lts for AM CDT carcinoma of this procedure overlapping lesion of are in the urinary organ results section. CALCIUM LEVEL TOTAL Routine 08/05/2021 10:52 Primary urothelia l Results for AM CDT carcinoma of this procedure overlapping lesion of are in the urinary organ results section. .GLOMERULAR FILTRATION Routine 08/05/2021 10:52 Primary urothe lial Results for RATE AM CDT carcinoma of this procedure overlapping lesion of are in the urinary organ results section. SERUM CREATININE Routine 08/05/2021 10:52 Primary urothelial R esults for AM CDT carcinoma of this procedure overlapping lesion of are in the urinary organ results section. ELECTROLYTE PANEL Routine 08/05/2021 10:52 Primary urothelial Results for AM CDT carcinoma of this procedure overlapping lesion of are in the urinary organ results section. BLOOD UREA NITROGEN Routine 08/05/2021 10:52 Primary urothelia l Results for AM CDT carcinoma of this procedure overlapping lesion of are in the urinary organ results section. GLUCOSE LEVEL Routine 08/05/2021 10:52 Primary urothelial Resu lts for AM CDT carcinoma of this procedure overlapping lesion of are in the urinary organ results section. HEMOGLOBIN A1C Routine 08/05/2021 10:52 Primary urothelial Res ults for AM CDT carcinoma of this procedure overlapping lesion of are in the urinary organ results section. COMPREHENSIVE METABOLIC Routine 08/05/2021 10:52 Primary uroth elial PANEL AM CDT carcinoma of overlapping lesion of urinary organ MAGNESIUM LEVEL Routine 08/05/2021 10:52 Primary urothelial Re sults for AM CDT carcinoma of this procedure overlapping lesion of are in the urinary organ results section. COMPLETE BLOOD COUNT W/ Routine 08/05/2021 10:52 Primary uroth elial DIFFERENTIAL AM CDT carcinoma of overlapping lesion of urinary organ LIPASE LEVEL Routine 08/05/2021 10:52 Primary urothelial Resul ts for AM CDT carcinoma of this procedure overlapping lesion of are in the urinary organ results section. AMYLASE LEVEL Routine 08/05/2021 10:52 Primary urothelial Resu lts for AM CDT carcinoma of this procedure overlapping lesion of are in the urinary organ results section. FREE THYROXINE Routine 08/05/2021 10:52 Primary urothelial Res ults for AM CDT carcinoma of this procedure overlapping lesion of are in the urinary organ results section. THYROID STIMULATING Routine 08/05/2021 10:52 Primary urothelia l Results for HORMONE AM CDT carcinoma of [...] in the urinary organ results section. ALANINE Routine 07/22/2021 9:42 Primary urothelial Result s [...] in the urinary organ results section. ALANINE Routine 07/08/2021 9:56 Primary urothelial Result s [...] malignant neoplasm of result s bladder section. after 06/30/2021 Results .Serum Creatinine (06/18/2022 2:48 PM CDT)Only the most recent of25 results within the time period is included. athologist Signature Creatinine 0.86 0.67 - 1.17 [place] mg/dL Comment: Testing performed at [facility], [facility] [place] [address] Specimen Anatomical Collection Method Collection Time Receive d Time (Source) Location / / Volume Laterality Blood 06/18/2022 2:48 PM 3 2:49 CDT PM CDT [facility] LAB BLOOD ORDERABLES Performing Organization Address City/State/ZIP Code Phon e Number [facility] [place] [address] [place] [address] (ABNORMAL) .CBC (06/18/2022 2:48 PM CDT)Only the most recent of23 resultswithin the time period is included. athologist Signature WBC 8.6 4.0 - 11.0 [place] K/uL Comment: All components of the CBC perfo rmed at [facility], [address] [place] [address], [place] [address] 3 RBC 2.87 (L) 4.50 - 6.00 M/uL [place] Comment: All components of the CBC perfo rmed at [facility], [address] [place] [address], [place] [address] 3 Hgb 7.9 (L) 14.0 - 18.0 gm/dL [place] Comment: As part of CBC or as an individ ual orderable testing performed at [facility], [address] [place] [address] Hct 26.5 (L) 40.0 - 54.0 % [place] Comment: As part of CBC testing performe d at [facility], [address] [place] [address], [place] [address] MCV 92 82 - 98 fL [place] Comment: As part of CBC testing performe d at [facility], [address] [place] [address] MCH 27.5 27.0 - 31.0 pg [place] Comment: As part of CBC testing performe d at [facility], [address] [place] [address] MCHC 29.8 (L) 31.0 - 36.0 gm/dL [place] Comment: As part of CBC testing performe d at [facility], [address] [place] [address] RDW-SD 57.3 (H) 35.1 - 46.3 fL [place] Comment: As part of CBC testing performe d at [facility], [address] [place] [address] RDW-CV 16.7 (H) 12.0 - 15.5 % [place] Comment: As part of CBC testing performe d at [facility], [address] [place], [place] [id number] Platelet count 253 140 - 440 K/uL [facility] Comment: As part of CBC or an individual orderable testing performed at [facility], [address] [place] [address] MPV 8.9 4.0 - 10.4 fL [place] Comment: As part of CBC testing performe d at [facility], [address] [place] [phone] Specimen Anatomical Collection Method Collection Time Receive d Time (Source) Location / / Volume Laterality Blood 06/18/2022 2:48 PM 3 2:49 CDT PM CDT [facility] BLOOD ORDERABLES Performing Organization Address City/State/ZIP Code Phon e Number [place], [place] [id number] [place] [address] Glomerular Filtration Rate (06/18/2022 2:48 PM CDT)Only the most recent of25 resultswithin the time period is included. P athologist Signature eGFR 91 >=60 [place] mL/min/1.73 sq. m Comment: The eGFRcr is [...] nor G2 fulfill criteria for CKD. Testing performed at [facility] [address] [place] [phone] Specimen Anatomical Collection Method Collection Time Receive d Time (Source) Location / / Volume Laterality Blood 06/18/2022 2:48 PM 3 2:49 CDT PM CDT Car[facility] BLOOD ORDERABLES Performing Organization Address City/[facility] [place] [address] [place] [address] Fractionated Bilirubin (06/18/2022 2:48 PM CDT)Only the most recent of24 results within the time period is included. athologist Signature Bili Total <0.3 <=1.2 mg/dL [place] Comment: Direct and indirect bilirubin will not b e reported when Total bilirubin result is <0.3 mg/dL Indocyanine Green (ICG) may cause falsel y elevated bilirubin results. Total and direct bilirubin must not be measured from samples containing indocyanine green. False elevation of total bilirubin can b e seen in patients with IgG concentrations above 28 g/L. Testing performed at [facility] [address] [place] [phone] Specimen Anatomical Collection Method Collection Time Receive d Time (Source) Location / / Volume Laterality Blood 06/18/2022 2:48 PM 3 2:49 CDT PM CDT [facility] BLOOD ORDERABLES Performing Organization Address City/[facility] [place] [address] [place] [address] (ABNORMAL) Differential (06/18/2022 2:48 PM CDT)Only the most recent of23 resultswithin the time period is included. athologist Signature Neutrophil % 83.4 (H) 42.0 - [place] 66.0 % Comment: All components of the Different ial performed at [facility], [address] [place] [address] Lymphocyte % 5.7 (L) 24.0 - 44.0 % [place] Comment: As part of the Differential cristina ting performed at [facility], [address] [place] [address], [place] [address] Monocyte % 10.4 (H) 2.0 - 7.0 % [place] Comment: As part of the Differential cristina ting performed at [facility], [address] [place] [address], [place] [address] Eosinophil % 0.1 (L) 1.0 - 4.0 % [place] Comment: As part of the Differential cristina ting performed at [facility], [address] [place] [address], [place] [address] Basophil % 0.2 0.0 - 1.0 % [place] Comment: As part of the Differential cristina ting performed at [facility], [address] [place] [address], [place] [address] IGRE % 0.2 0.0 - 0.4 % [place] Comment: IGRE % count includes Metamyelocytes, My elocytes, and Promyelocytes. As part of the Differential testing perf ormed at [facility], [address] [place] [address], [place] [address] Neutrophil Abs 7.13 1.70 - 7.30 K/uL [facility] Comment: As part of the Differential cristina ting performed at [facility], [address] [place] [address], [place] [address] Lymphocyte Abs 0.49 (L) 1.00 - 4.80 K/uL [facility] Comment: As part of the Differential cristina ting performed at [facility], [address] [place] [address], [place] [address] Monocyte Abs 0.89 (H) 0.08 - 0.70 K/uL [facility] Comment: As part of the Differential cristina ting performed at [facility], [address] [place] [address], [place] [address] Eosinophil Abs 0.01 (L) 0.04 - 0.40 K/uL [facility] ITY Comment: As part of the Differential cristina ting performed at [facility], [address] [place] [address], [place] [address] Basophil Abs 0.02 0.00 - 0.10 K/uL [facility] Comment: As part of the Differential cristina ting performed at [facility], [address] [place] [address] IG Abs 0.02 0.00 - 0.04 K/uL [place] Comment: As part of the Differential cristina ting performed at [facility], [address] [place] [address] Specimen Anatomical Collection Method Collection Time Receive d Time (Source) Location / / Volume Laterality Blood 06/18/2022 2:48 PM 3 2:49 CDT PM CDT [facility] PA LAB BLOOD ORDERABLES Performing Organization Address City/[facility]/ZIP Code Phon e [address] (ABNORMAL) BUN (06/18/2022 2:48 PM CDT)Only the most recent of25 resultswithin the time period is included. P athologist Signature BUN 47 (H) 6 - 23 mg/dL [place] Comment: Testing performed at [facility], [address] [place] [address] Specimen Anatomical Collection Method Collection Time Receive d Time (Source) Location / / Volume Laterality Blood 06/18/2022 2:48 PM 3 2:49 CDT PM CDT Carina Delvis PA LAB BLOOD ORDERABLES Performing Organization Address City/[facility]/ZIP Code Phon e Number [address] ALT (06/18/2022 2:48 PM CDT)Only the most recent of24 resultswithin the time period is included. P athologist Signature ALT 10 <=41 U/L [place] Comment: Testing performed at [facility], [address] [place] [address] Specimen Anatomical Collection Method Collection Time Receive d Time (Source) Location / / Volume Laterality Blood 06/18/2022 2:48 PM 3 2:49 CDT PM CDT Carina Delvis PA LAB BLOOD ORDERABLES Performing Organization Address City/[facility]/ZIP Code Phon e Number [address] Aspartate Aminotransferase (06/18/2022 2:48 PM CDT)Only the most recent of24 resultswithin the time period is included. athologist Signature AST 15 <=40 U/L [place] Comment: Testing performed at [facility], [address] [place] [address] Specimen Anatomical Collection Method Collection Time Receive d Time (Source) Location / / Volume Laterality Blood 06/18/2022 2:48 PM 3 2:49 CDT PM CDT Syncurity LAB BLOOD ORDERABLES Performing Organization Address City/[facility] Phon e Number [address] TSH (06/18/2022 2:48 PM CDT)Only the most recent of21 resultswithin the time period is included. athologist [facility] TSH 3.07 0.27 - 4.20 [place] mcunit/mL Comment: Testing performed at [facility], [address] [place] [address] Specimen Anatomical Collection Method Collection Time Receive d Time (Source) Location / / Volume Laterality Blood 06/18/2022 2:48 PM 3 2:49 CDT PM CDT Carina [facility] LAB BLOOD ORDERABLES Performing Organization Address City/[facility] Phon e Number [address] (ABNORMAL) Free T4 (06/18/2022 2:48 PM CDT)Only the most recent of21 results within the time period is included. athologist [facility] T4 Free 0.85 (L) 0.93 - 1.70 [place] ng/dL Comment: Testing performed at [facility], [address] [place] [address] Specimen Anatomical Collection Method Collection Time Receive d Time (Source) Location / / Volume Laterality Blood 06/18/2022 2:48 PM 3 2:49 CDT PM CDT Carina REMY LAB BLOOD ORDERABLES Performing Organization Address City/[facility] Code Phon e Number [address] (ABNORMAL) Total Protein (06/18/2022 2:48 PM CDT)Only the most recent of24 resultswithin the time period is included. athologist [facility] Total Protein 6.0 (L) 6.4 - 8.3 [place] g/dL Comment: Testing performed at [facility], [address] [place] [address] Specimen Anatomical Collection Method Collection Time Receive d Time (Source) Location / / Volume Laterality Blood 06/18/2022 2:48 PM 3 2:49 CDT PM CDT Carina REMY LAB BLOOD ORDERABLES Performing Organization Address City/[facility] Phon e Number [address] Alkaline Phosphatase (06/18/2022 2:48 PM CDT)Only the most recent of24 results within the time period is included. [facility] Phos 106 40 - 129 U/L [place] Comment: Testing performed at [facility], [address] [place] [address] Specimen Anatomical Collection Method Collection Time Receive d Time (Source) Location / / Volume Laterality Blood 06/18/2022 2:48 PM 3 2:49 CDT PM CDT Carina Delvis JONEL LAB BLOOD ORDERABLES Performing Organization Address City/[facility] Phon e [address] (ABNORMAL) Glucose Level (06/18/2022 2:48 PM CDT)Only the most recent of25 resultswithin the time period is included. athologist [facility] Glucose Level 122 (H) 70 - 99 [place] mg/dL Comment: Effective 10/02/15, the glucose reference intervals have been updated based on [place] [employer] guidelines (Standards of Medical Care in Diabetes 2016. Diabetes Care 2016; 39: S13-S22). Fasting blood glucose: Normal: 70-99 mg/dL Impaired fasting glucose (increased risk for diabetes or pre-diabetes): 100- 125 mg/dL Diabetes mellitus: >/=126 mg/dL Random blood glucose: Normal: 70-199 mg/dL Note: Random glucose >100 mg/dL is assoc iated with increased risk for diabetes Testing performed at [facility] [address] [place] [address] Specimen Anatomical Collection Method Collection Time Receive d Time (Source) Location / / Volume Laterality Blood 06/18/2022 2:48 PM 3 2:49 CDT PM CDT Carina REMY LAB BLOOD ORDERABLES Performing Organization Address City/[facility]/ZIP Code Phon e Number [address] Calcium Level (06/18/2022 2:48 PM CDT)Only the most recent of25 resultswithin the time period is included. P athologist Signature Calcium Lvl 8.7 8.4 - 10.2 [place] mg/dL Comment: Testing performed at [facility], [address] [place] [phone] Specimen Anatomical Collection Method Collection Time Receive d Time (Source) Location / / Volume Laterality Blood 06/18/2022 2:48 PM 3 2:49 CDT PM CDT Carina REMY LAB BLOOD ORDERABLES Performing Organization Address City/[facility] Phon e Number [address] (ABNORMAL) Albumin Level (06/18/2022 2:48 PM CDT)Only the most recent of24 resultswithin the time period is included. P athologist Signature Albumin Lvl 2.9 (L) 3.5 - 5.2 [place] gm/dL Comment: Testing performed at [facility], [address] [place] [phone] Specimen Anatomical Collection Method Collection Time Receive d Time (Source) Location / / Volume Laterality Blood 06/18/2022 2:48 PM 3 2:49 CDT PM CDT Carina REMY LAB BLOOD ORDERABLES Performing Organization Address City/[facility] Phon e Number [place], [place] [id number] [place] [address] (ABNORMAL) Electrolyte Panel (06/18/2022 2:48 PM CDT)Only the most recent of25 resultswithin the time period is included. athologist Signature Sodium Lvl 131 (L) 136 - 145 [place] mEq/L Comment: Testing performed at [facility], [address] [place] [phone] Potassium Lvl 5.3 (H) 3.5 - 5.1 mEq/L [facility] Comment: Testing performed at [facility], [address] [place] [address] Chloride 95 (L) 98 - 107 mEq/L [place] Comment: Testing performed at [facility], [address] [place] [address] CO2 25 22 - 29 mEq/L [place] Comment: Testing performed at [facility], [address] [place] [address] Anion Gap 11 4 - 14 mEq/L [place] Comment: Testing performed at [facility], [address] [place] [address] Specimen Anatomical Collection Method Collection Time Receive d Time (Source) Location / / Volume Laterality Blood 06/18/2022 2:48 PM 3 2:49 CDT PM CDT Carina REMY LAB BLOOD ORDERABLES Performing Organization Address City/[facility]/ZIP [facility] Phon e Number [place], [place] [id number] [place] [address] CT Chest Abdomen Pelvis with Contrast (06/18/2022 2:35 PM CDT)Only the most recent of7 resultswithin the time period is included. Anatomical Region Laterality Modality Abdomen, Pelvis, Chest Computed Tomograp hy Specimen (Source) Anatomical Collection Method Collection Time Re ceived Time Location / / Volume Laterality 06/19/2022 10:24 AM CDT Impressions 06/19/2022 10:52 AM CDT 1. Enlargement of some of the retrocrura l, retroperitoneal and pelvic metastatic nodes compared to CT of 04/14/2022. Others are unchanged. 2. Stable and enlarging right retroperit russell, soft tissue and intramuscular metastasis. 3. Enlarging soft tissue components of s everal of the osseous metastasis. Remainder are unchanged. 4. No CT evidence of thoracic metastatic disease. 5. Suspected soft tissue ulceration in t he lower back/buttock region. 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 TECHNIQUE: CT of the chest, abdomen and pelvis was performed with the administration of intravenous contrast. DISCUSSION : CHEST : Thyroid : Unremarkable Lungs: No pneumothorax. Trace bilatera l pleural effusions with some adjacent airspace disease. Several bilateral subcentimeter pulmonary nodules/nodular densities. No new suspicious pulmonary nodules. Emphysema/chronic obstructive pulmonary disease. Lymphatics: No axillary, hilar or medias tinal lymphadenopathy. Mediastinum : No mediastinal masses. Bones/Soft tissue : No suspicious osseou s lesions. Right-sided Port-A-Cath in place with th e tip at the cavoatrial junction. ABDOMEN/PELVIS : Hepatobiliary: Stable focal enhancing left hepatic lobe lesion (image 113, series 6), measuring up to 0.8 cm. This may represent a hemangioma. Gallbladder is unremarkable. Spleen : Splenic granulomatous. Pancreas : Unremarkable Gastrointestinal: Stomach and small stephanie l are unremarkable. Colonic diverticulosis. Appendix not visualized. Genitourinary: Stable right adrenal gl and thickening. Stable nodularity of the left adrenal gland (image 185, series 6), measuring up to 2.4 cm. Interval removal of the right-sided percutaneous nephro stomy tube catheter. A left-sided percut aneous nephrostomy tube catheter is in position. No hydronephrosis or hydroureter. Bilateral renal subcentimeter too small to characterize hypodensities. The pros polanco gland is enlarged and heterogeneous . The bladder is poorly distended with marked diffuse wall thickening. Lymphatics: Enlarging 1.5 cm right-galilea ed retrocrural node (image 168, series 6), as compared to 1.2 cm. Additional retrocrural nodes are either stable or slightly larger in size. Enlarging 1.0 cm aort ocaval node (image 226, series 6). Stabl e left-sided external iliac node measuring up to 1.3 cm in short axis diameter (image 272, series 6). Enlarging left inguinal 1.7 cm short axis diameter noted as compared to 1.1 cm. Additional pelvic no monique are relatively stable. Soft tissues/bones: Stable morphologic al appearance and distribution of sclerotic osseous metastatic disease throughout the pelvic bones. The soft tissue component of the sacral osseous metastatic dis ease has increased measuring 5.2 x 2.1 c m as compared to 4.0 x 1.8 cm. The soft tissue component of the right proximal femoral metastasis (image 313, series 6), measuring 1.9 cm has increased compared t o 1.5 cm. In the lower posterior back so ft tissues/buttock region (image 315, series 6), there appears to be a soft tissue ulceration measuring up to 2.6 cm. Other : No free air/free fluid. Enlargin g 2.3 x 1.9 cm right psoas muscle metastasis as compared to 1.9 x 1.5 cm. A large right retroperitoneal 7.7 x 4.5 cm metastasis (image 241, series 6), has increas ed compared to 5.3 x 3.2 cm. This mass a buts the adjacent vertebral body. Some additional new or increasing right psoas muscle metastasis have also increased. Persistent and relatively stable metastasis are seen in the right paraspinal muscul ature (image 210, series 6). Some likely metastasis in the subcutaneous fat of the right of midline lower back subcutaneous fat (image 235, series 6), also stable . The soft tissue component of the right posterior iliac osseous metastasis (image 257, series 6), measures 2.8 x 4.3 cm increased compared to 1.5 x 2.3 cm. Enlarging 2.9 cm right lower quadrant metasta sis (image 53, series 6), as compared to 2.4 cm. There is anasarca. 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 TECHNIQUE: CT of the chest, abdomen and pelvis was performed with the administration of intravenous contrast. DISCUSSION : CHEST : Thyroid : Unremarkable Lungs: No pneumothorax. Trace bilateral pleural effusions with some adjacent airspace disease. Several bilateral subcentimeter pulmonary nodules/nodular densities. No new suspicious pulmonary nodules. Emphysema/chronic obstructive pulmonary disease. Lymphatics: No axillary, hilar or medias tinal lymphadenopathy. Mediastinum : No mediastinal masses. Bones/Soft tissue : No suspicious osseou s lesions. Right-sided Port-A-Cath in place with th e tip at the cavoatrial junction. ABDOMEN/PELVIS : Hepatobiliary: Stable focal enhancing le ft hepatic lobe lesion (image 113, series 6), measuring up to 0.8 cm. This may represent a hemangioma. Gallbladder is unremarkable. Spleen : Splenic granulomatous. Pancreas : Unremarkable Gastrointestinal: Stomach and small stephanie l are unremarkable. Colonic diverticulosis. Appendix not visualized. Genitourinary: Stable right adrenal glan d thickening. Stable nodularity of the left adrenal gland (image 185, series 6), measuring up to 2.4 cm. Interval removal of the right-sided percutaneous nephrostomy tube catheter. A left-sided percutaneous neph rostomy tube catheter is in position. No hydronephrosis or hydroureter. Bilateral renal subcentimeter too small to characterize hypodensities. The prostate gland is enlarged and heterogeneous. The bladder is poorly distended with marked diffuse wall thickening. Lymphatics: Enlarging 1.5 cm right-sided retrocrural node (image 168, series 6), as compared to 1.2 cm. Additional retrocrural nodes are either stable or slightly larger in size. Enlarging 1.0 cm aortocaval node (image 226, series 6). 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 Enlarging left inguinal 1.7 cm short axis diameter noted as compared to 1.1 cm. Additional pelvic nodes are relatively stable. Soft tissues/bones: Stable morphological appearance and distribution of sclerotic osseous metastatic disease throughout the pelvic bones. The soft tissue component of the sacral osseous metastatic disease has increased measuring 5.2 x 2.1 cm as compared to 4. 0 x 1.8 cm. The soft tissue component of the right proximal femoral metastasis (image 313, series 6), measuring 1.9 cm has increased compared to 1.5 cm. In the lower posterior back soft tissues/buttock region (image 315, series 6), there appears to be a soft tissue ulceration measuring up to 2.6 cm. Other : No free air/free fluid. Enlargin g 2.3 x 1.9 cm right psoas muscle metastasis as compared to 1.9 x 1.5 cm. A large right retroperitoneal 7.7 x 4.5 cm metastasis (image 241, series 6), has increased compared to 5.3 x 3.2 cm. This mass abuts the adjacent valentín tebral body. Some additional new or increasing right psoas muscle metastasis have also increased. Persistent and relatively stable metastasis are seen in the right paraspinal musculature (image 210, serie s 6). Some likely metastasis in the subcutaneous fat of the right of midline lower back subcutaneous fat (image 235, series 6), also stable. The soft tissue component of the right posterior iliac osseous metastasis (imag e 257, series 6), measures 2.8 x 4.3 cm increased compared to 1.5 x 2.3 cm. Enlarging 2.9 cm right lower quadrant metastasis (image 53, series 6), as compared to 2.4 cm. There is anasarca. IMPRESSION: 1. Enlargement of some of the retrocrura l, retroperitoneal and pelvic metastatic nodes compared to CT of 04/14/2022. Others are unchanged. 2. Stable and enlarging right retroperit russell, soft tissue and intramuscular metastasis. 3. Enlarging soft tissue components of s everal of the osseous metastasis. Remainder are unchanged. 4. No CT evidence of thoracic metastatic disease. 5. Suspected soft tissue ulceration in t he lower back/buttock region. Carina WALTERS CT ORDERABLES POC Creatinine (06/18/2022 1:21 PM CDT)Only the most recent of2 resultswithin the time period is included. P athologist Signature POC Crea 0.8 0.6 - 1.3 POC [facility] mg/dL Comment: [...] analyte concentration by an electrochemical assay. POC EGFR 93 >=60 mL/min/1.73 sq. m POC [facility] Comment: The eGFRcr is calculated with the [...] G1 nor G2 fulfill criteria for CKD. POC Clean Dev Yes POC [facility] Performing Lab [facility] POC TELCO R Comment: [facility] ,[address] [place] [address] [place] [address], Tobacco Weigher: Olinda Henry MD Specimen Anatomical Collection Method Collection Time Receive d Time (Source) Location / / Volume Laterality Blood 06/18/2022 1:21 PM 3 1:21 CDT PM CDT Carina REMY POCT ORDERABLES - DEVICE Performing Organization Address City/State/ZIP Code Phon e Number POC [facility] Unless otherwise noted, [place] [address] lab tests performed by: Division of Pathology and Laboratory Medicine [address] [facility] Nephrostomy Exchange (06/12/2022 3:40 PM CDT)Only the most recent of5 resultswithin the time period is included. Anatomical Region Laterality Modality Abdomen/Pelvis X-Ray Angiography Specimen (Source) Anatomical Location Collection Method / Collectio n Time Received Time / Laterality Volume Narrative 06/12/2022 4:55 PM CDT Table formatting from the original result was not included. 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 Consent: The procedure, risks, indicat ions and [...] Procedure Events Event Event Time Sedation Start 06/12/2022 3:17 PM Sedation End 06/12/2022 3:49 PM Procedure in Detail: A time out [...] was used f or local anesthesia. A operations business partner view was obtained of the cathete r. A left nephrostogram confirmed catheter position in the renal pelvis. The catheter was severed and exchanged over a wire for a new 10 Frenc h Mac-loc catheter. Repeat nephrostogram demonstrates adequate posi tion in the renal pelvis. The catheter was secured to the patient with suture. A operations business partner view was obtained of the cathete r. A right nephrostogram confirmed catheter position in the renal pelvis. The catheter was severed and removed over a wire. Additional Comments: Team requested ri ght PCN removal since it was placed for incontinence and not obstruction. Ca theter did not help with incontinence and ureter was patent. Estimated Blood Loss: Minimal Specimens Removed: No Immediate Complications: None Disposition: PACU Plan: Catheter to gravity drainage. Return for routine exchange in 3 pancho hs. This draft note was prepared by the TONI involved in the case; it was then reviewed and finalized by the attending physician. I certify my physical presence in the pr ocedure/control room at the time of the procedure. I personally reviewed the image(s) and the TONI's interpretation and agree with the silverio ball report. Rubén Garcia MD IMG IR ORDERABLES [facility] (04/15/2022 2:22 PM [facility])Only the most recent of6 resultswithin the time period is included. Anatomical Region Laterality Modality Other Specimen (Source) Anatomical Collection Method Collection Time Re ceived Time Location / / Volume Laterality 04/15/2022 4:03 PM [facility] Impressions 04/15/2022 4:03 PM [facility] Tumor metrics have been completed. I personally reviewed these images and agree with the tumor metrics. Narrative 04/15/2022 4:03 PM [facility] FULL RESULT: Examination: [facility] on 04/15/2022 16:03 PM Indication:Malignant neoplasm of overlap ping sites of urinary organs Findings: Tumor metrics have been comple fernandez. Procedure Note Cristiano Chowdhury MD - 04/15/2022F ormatting of this note might be different from the original. FULL RESULT: Examination: [facility] on 04/15/2022 16:03 PM Indication:Malignant neoplasm of overlap ping sites of urinary organs Findings: Tumor metrics have been comple fernandez. IMPRESSION: Tumor metrics have been completed. I per sonally reviewed these images and agree with the tumor metrics. Dante Christy MD IMG QIAC ORDERABLES [facility] Add-On Test (04/14/2022 3:27 PM [facility]) athologist Signature Ordered Test Added [facility] Comment: TEst added to [facility] sample acc ession [id number]. Email sent to notify them. 04/14/2022 4:39:51 PM [facility] by rhuff Test Needed ferritin, TIBC, iron MD MD [facility] Specimen Anatomical Collection Method Collection Time Receive d Time (Source) Location / / Volume Laterality Existing 04/14/2022 3:27 PM 3:27 [facility] PM [facility] Dante Christy MD LAB BLOOD ORDERABLES Performing Organization Address City/State/ZIP Code Phon e Number [facility] Unless otherwise noted, [place], [place] [id number] [place] [address] all lab tests performed by: Division of Pathology and Laboratory Medicine [address] (ABNORMAL) Urinalysis Microscopic Exam (04/14/2022 1:07 PM [facility])Only the most recent of4 resultswithin the time period is included. athologist Signature UA WBC 5-10 (A) 0 - 2 /HPF [place] Comment: Some reporting parameters within the Uri nalysis test have changed due to the implementation of new instrumentation in the [facility], allowing greater sensitivity of measurement. Urinalysis results rep orted by the [facility] using existing instrumentation, as well as Urinalysis t esting performed manually or by backup methodology at the [facility] will remain relatively unchanged. New reporting parameters and units will not be reported for all campuses. As part of the UA Macroscopic Exam perfo rmed at [facility], [address] [place] [address], [place] [address] UA RBC Rare 0 - 2 /HPF [place] Comment: As part of the UA Macroscopic E xam performed at [facility], [address] [place] [address], [place] [address] UA Mucous NOT SEEN Not Seen-Trace /HPF [facility] Y Comment: As part of the UA Macroscopic E xam performed at [facility], [address] [place] [address], [facility] UA Bacteria OCC NOT SEEN /HPF [place] Comment: As part of the UA Macroscopic E xam performed at [facility], [address] [place] [address], [place] [address] UA Squam Epi Few (A) None-Occasional /HPF [place] Comment: As part of the UA Macroscopic E xam performed at [facility], [address] [place] [address], [place] [address] UA Trans Epi OCC (A) NOT SEEN /HPF [place] Comment: As part of the UA Macroscopic E xam performed at [facility], [address] [place] [address], [place] [address] UA Yeast 1+ (A) NOT SEEN /HPF [place] Comment: As part of the UA Macroscopic E xam performed at [facility], [address] [place] [address] Specimen Anatomical Collection Method Collection Time Receive d Time (Source) Location / / Volume Laterality Urine 04/14/2022 1:07 PM 3 1:09 [facility] PM [facility] Dante Christy MD LAB BLOOD ORDERABLES Performing Organization Address City/State/ZIP Code Phon e Number [facility], [address] (ABNORMAL) Urinalysis w/Microscopic if Indicated (04/14/2022 1:07 PM [facility])Only the most recent of16 resultswithin the time period is included. athologist Signature UA Color Light Yellow [place] ow Comment: All Components of UA Macroscopi c performed at [facility], [address] [place] [address], [place] [address] UA Appear Sl Cloudy (A) Clear [place] Comment: As part of the UA Macroscopic E xam performed at [facility], [address] [place] [address], [place] [address] UA Glucose NEG NEG mg/dL [place] Comment: As part of the UA Macroscopic E xam performed at [facility], [address] [id number] UA Bili NEG NEG [place] Comment: As part of the UA Macroscopic E xam performed at [facility], [address] [place] [address] UA Ketones NEG NEG mg/dL [place] Comment: As part of UA Macroscopic or as an individual orderable testing performed at [facility], [address] [place] [address], [place] [address] UA Spec Grav 1.015 1.003 - 1.035 [place] Comment: As part of the UA Macroscopic E xam performed at [facility], [address] [place] [address], [place] [address] UA Blood Moderate (A) NEG [place] Comment: As part of the UA Macroscopic E xam performed at [facility], [address] [place] [address] UA pH 6.0 5.0 - 9.0 [place] Comment: As part of the UA Macroscopic E xam performed at [facility], [address] [place] [address] UA Protein >=300 (A) NEG mg/dL [place] Comment: As part of the UA Macroscopic E xam performed at [facility], [address] [place] [address], [place] [address] UA Urobilinogen NEG [facility] Comment: As part of the UA Macroscopic E xam performed at [facility], [address] [place] [address] UA Nitrite NEG [facility] Comment: As part of the UA Macroscopic E xam performed at [facility], [address] [place] [address] UA Leuk Est Small (A) NEG [place] Comment: As part of the UA Macroscopic E xam performed at [facility], [address] [place] [address] Specimen Anatomical Collection Method Collection Time Receive d Time (Source) Location / / Volume Laterality Urine 04/14/2022 1:07 PM 1:07 [facility] [facility] PM [facility] DREDGE Dante Christy MD URINE ORDERABLES Performing Organization Address City/State/ZIP Code Phon e Number [place], [place] [id number] [place] [address] aPTT (04/14/2022 1:04 PM [facility])Only the most recent of14 resultswithin the time period is included. athologist Signature aPTT 34.2 22.8 - 34.2 [place] second(s) Comment: Testing performed at [facility], [address] [place] [address] Specimen Anatomical Collection Method Collection Time Receive d Time (Source) Location / / Volume Laterality Blood 04/14/2022 1:04 PM 3 1:04 [facility] PM [facility] - 04/14/2022 1:33 PM [facility] This lab cannot be scheduled at the [facility] locations due to collection/proccessing restrictions: [facility] and [facility]. Dante Christy MD LAB BLOOD ORDERABLES Performing Organization Address City/State/ZIP Code Phon e Number [place] [phone] [place] [address] (ABNORMAL) Prothrombin Time with INR (04/14/2022 1:04 PM [facility])Only the most recent of14 resultswithin the time period is included. athologist Signature PT 15.5 (H) 11.9 - 14.1 [place] second(s) Comment: Testing performed at [facility], [address] [place] [address] INR 1.24 (H) 0.89 - 1.10 [place] Comment: Testing performed at [facility], [address] [place] [address] Specimen Anatomical Collection Method Collection Time Receive d Time (Source) Location / / Volume Laterality Blood 04/14/2022 1:04 PM 3 1:04 [facility] [facility] PM [facility] - 04/14/2022 1:33 PM [facility] This lab cannot be scheduled at the [facility] locations due to collection/proccessing restrictions: [facility] DIAG LAB CTR and [facility]. Dante Christy MD LAB BLOOD ORDERABLES Performing Organization Address City/State/ZIP Code Phon e Number [address] (ABNORMAL) Transferrin with TIBC (04/14/2022 1:04 PM [facility]) athologist Signature Transferrin 103 (L) 200 - 360 [place] mg/dL Comment: Performed at [facility], [address] [place] [address] TIBC 144 (L) 250 - 450 mcg/dL [place] Comment: Performed at [facility], [address] [place] [address] Specimen Anatomical Collection Method Collection Time Receive d Time (Source) Location / / Volume Laterality Blood 04/14/2022 1:04 PM 3 1:04 [place] [place] [facility] PM [facility] Dante Christy MD LAB BLOOD ORDERABLES Performing Organization Address City/[facility]/ZIP Code Phon e Number [address] (ABNORMAL) Iron Level (04/14/2022 1:04 PM [facility]) athologist Signature Iron 16 (L) 59 - 158 [place] mcg/dL Comment: Testing performed at [facility], [address] [place], [place] [id number] Specimen Anatomical Collection Method Collection Time Receive d Time (Source) Location / / Volume Laterality Blood 04/14/2022 1:04 PM 3 1:04 [place] [place] [facility] PM [facility] Dante Christy MD LAB BLOOD ORDERABLES Performing Organization Address City/State/ZIP Code Phon e Number [address] (ABNORMAL) Ferritin Level (04/14/2022 1:04 PM [facility]) athologist Signature Ferritin Lvl 1,036 (H) 30 - 400 [place] ng/mL Comment: Testing performed at [facility], [address] [place] [address] Specimen Anatomical Collection Method Collection Time Receive d Time (Source) Location / / Volume Laterality Blood 04/14/2022 1:04 PM 3 1:04 [place] [place] [facility] PM [facility] Dante Crhisty MD LAB BLOOD ORDERABLES Performing Organization Address City/State/[place] [address] [place] [address] Lipid Panel (04/14/2022 1:04 PM [facility]) athologist Signature Chol 115 <=199 mg/dL [place] Comment: ATP III Classification of Total Choleste rol-Primary Target of Therapy (in mg/dL): <200 Desirable 200-239 Borderline high >=240 High Testing performed at [facility] [address] [place] [address] Trig 92 <=149 mg/dL [place] Comment: ATP III Classification of Serum Triglyce rides Primary Target of Therapy (in mg/dL): <150 Normal 150-199 Borderline high 200-499 High >=500 Very high Non-fasting triglycerides >200 mg/dL may be followed up with a fasting Lipid Panel. Calculated LDL-C may be falsely decreased when non-fasting triglycerides >200 mg/dL. Testing performed at [facility] [address] [place] [address] HDL 46 >=40 mg/dL [place] Comment: Testing performed at [facility], [address] [place] [address] LDL 51 <=100 mg/dL [place] Comment: ATP III Classification of LDL Cholestero l Primary Target of Therapy (in mg/dL): <100 Optimal 100-129 Near optimal/above optimal 130-159 Borderline high 160-189 High >=190 Very high Testing performed at [facility] [address] [place] [address] VLDL 18 mg/dL [place] Comment: Testing performed at [facility], [address] [place] [address] Specimen Anatomical Collection Method Collection Time Receive d Time (Source) Location / / Volume Laterality Blood 04/14/2022 1:04 PM 3 1:04 [place] [place] [facility] PM [facility] Dante Christy MD LAB BLOOD ORDERABLES Performing Organization Address City/State/ZIP Code Phon e Number AMBROCIO [place]ODG[place] [facility] [place] [address] [address] [facility] (ABNORMAL) Fibrinogen (04/08/2022 1:27 PM [facility]) P athologist Signature Fibrinogen 737 (H) 214 - 503 [facility] mg/dL [facility] Comment: No Clot Present Specimen Anatomical Collection Method Collection Time Receive d Time (Source) Location / / Volume Laterality Blood 04/08/2022 1:27 PM 3 1:31 [facility] [facility] PM [facility] Narrative [facility] - 3 2:32 PM [facility] This lab cannot be scheduled at the [facility] locations due to collection/proccessing restrictions: [facility] DIAG LAB CTR and [facility] DIAG LAB CTR. Dante Christy MD LAB BLOOD ORDERABLES Performing Organization Address City/[facility]/ZIP Code Phon e Number [facility]CER Unless otherwise noted, [address] all lab tests performed by: Division of Pathology and Laboratory Medicine [facility] [place] (ABNORMAL) Urine Culture (04/06/2022 6:31 PM [facility] DREDGE)Only the most recent of5 resultswithin the time period is included. Component Value Ref Test Analysis Performed At Patholo gist Range Method Time Signature Final Report 10 - 50,000 cfu/ml Katerinaia retrehan ADAMS MD For susceptibility refer to Culture [id number] [place] () [facility] Path Review - The results have been review ed and electronically signed by Pathologist: ANGIE MATHEW Urine MOE DALTON MD #[id number] [place] () [facility] Specimen (Source) Anatomical Collection Method Collection Time Re ceived Time Location / / Volume Laterality Urine, Nephrostomy 04/06/2022 6:31 2022 9:47 - Left PM [facility] PM [facility] DR[facility] Amee Ventura MD MICROBIOLOGY - GENERAL ORDER [place] Performing Organization Address City/State/ZIP Code Phon e Number [facility] Unless otherwise noted, [address] all lab tests performed by: Division of Pathology and Laboratory Medicine [facility] [place] US Renal (04/06/2022 5:19 PM [facility]) Anatomical Region Laterality Modality Abdomen Ultrasound Specimen (Source) Anatomical Collection Method Collection Time Re ceived Time Location / / Volume Laterality 04/06/2022 5:21 PM [facility] Impressions 04/06/2022 6:43 PM [facility] 1. No hydronephrosis. 2. Partially visualized bilateral neph rostomy tubes. 3. Decompressed urinary bladder with s uspected diffuse irregular bladder wall thickening, which is better seen on the prior CT. I personally reviewed these image(s) nery roy with the resident's/fellow's interpretations, certify that if a procedure was performed I was physically present, and agree with the final report. Narrative 04/06/2022 6:43 PM [facility] Examination: US RENAL, 04/06/2022 5:19 PM Clinical [...] US ORDERABLES COVID-19 (SARS-CoV-2)Asymptomatic-LT (04/06/2022 3:18 PM [facility] CL[facility] DREDGE) [facility] Method Time Signature COVID19 Not Detected Not Detected ANGIE MATHEW (SARS-CoV-2) [facility] COVID19 SARS Inpatient MD Indication Admission [facility] Covid 19 See Note MD Comment [facility] Comment: The elke SARS-CoV-2 nucleic acid test [...] fact sheet for patients provided by the welfare administrator ([employer]) can be reviewed at: https://www.fda.gov/media/131544/aimee bueno A fact sheet for Health Care providers is provided by the welfare administrator ([employer]) and can be reviewed at: https://www.fda.gov/media/753592/download Results must be interpreted within the c [...] This assay has been authorized by the [facility] for use only under Emergency Use Authorization (EUA) in laboratories that have been CLIA-certified to perform moderate-complexity and high-complexity tests. The Microbiology Laboratory at [facility], CLIA Accreditation #[id number] a mt CAP Accreditation #[id number], verified the performance characteristics of this assay. Internal controls are used to monitor all stages of the test process. Specimen (Source) Anatomical Collection Method Collection Time Re ceived Time Location / / Volume Laterality Nasopharyngeal Swab 04/06/2022 3:18 04/06 PM [facility] 3:51 PM [facility] Amee Ventura MD MICROBIOLOGY - GENERAL ORDER [place] Performing Organization Address City/[facility] Phon e Number [facility] Unless otherwise noted, [address] all lab tests performed by: Division of Pathology and Laboratory Medicine [address] [place] Phosphorus Level (04/06/2022 3:18 PM [facility] DREDGE)Only the most recent of14 resultswithin the time period is included. P athologist Signature Phosphorus 3.3 2.5 - 4.5 [facility] mg/dL [facility] Specimen Anatomical Collection Method Collection Time Receive d Time (Source) Location / / Volume Laterality Blood 04/06/2022 3:18 PM 3 3:27 [place] PM [facility] Amee Ventura MD LAB BLOOD ORDERABLES Performing Organization Address City/[facility] Phon e Number [facility] Unless otherwise noted, [address] all lab tests performed by: Division of Pathology and Laboratory Medicine [address] [place] Magnesium Level (04/06/2022 3:18 PM [facility])Only the most recent of16 resultswithin the time period is included. P athologist Signature Magnesium 2.5 1.6 - 2.6 [facility] mg/dL [facility] Specimen Anatomical Collection Method Collection Time Receive d Time (Source) Location / / Volume Laterality Blood 04/06/2022 3:18 PM 3 3:27 [place] PM [facility] Amee Ventura MD LAB BLOOD ORDERABLES Performing Organization Address City/State/ZIP Code Phon e Number [facility] Unless otherwise noted, [place] [address] CENTER all lab tests performed by: Division of Pathology and Laboratory Medicine [address] [place] Gated Cardiac (03/31/2022 12:19 PM [facility] DRED[facility]) Anatomical Region Laterality Modality Lung Nuclear Medicine Specimen (Source) Anatomical Collection Method Collection Time Re ceived Time Location / / Volume Laterality 03/31/2022 12:24 PM [facility] Impressions 03/31/2022 12:25 PM [facility] Normal left ventricular wall motion with normal ejection fraction of 67%. . Narrative 03/31/2022 12:25 PM [facility] DR[facility] FULL RESULT: Examination: [place] GATED CARDIAC, 03/31/2022 [...] NEPHROSTOMY UNILATERAL PLACEMENT 75 (03/16/2022 11:45 AM [facility] CLAM DREDGE) Anatomical Region Laterality Modality Abdomen/Pelvis X-Ray Angiography, U ltrasound Specimen (Source) Anatomical Location Collection Method / Collectio n Time Received Time / Laterality Volume Narrative 03/16/2022 11:50 AM [facility] Table formatting from the original result was not included. Date of Procedure: 03/16/22 Attending Physician: Tye Alcantar MD Water Pump Servicer: None Pre Procedure Diagnosis: Personal hist ory [...] tract was dilated to accept a 10 Polish Mac-loc catheter which was formed in the [...] nephroureteral catheter conversion due to tumor. Carson Oneill APN IM IR ORDERABLES Fungus Culture w/Smear (03/16/2022 11:42 AM [facility]) Component Value Ref Test Analysis Performed At [facility] gist Range Method Time Signature Final Report No fungus ANGIE MATHEW isolated at 4 ANATOLY weeks. [facility] Path Review - Culture yield may be affecte d by sample quality, prior treatment, and transportation conditions. The results have been reviewed and electronically signed by Pathologist: ANGIE MATHEW Fungus Olinda Henry MD, PhD #[id number] [facility] Calcofluor No Fungi seen in direct smear ANGIE MATHEW Stain Test performed by fluorescent stain methodology. [facility] Specimen Anatomical Collection Method Collection Time Receive d Time (Source) Location / / Volume Laterality Kidney Fl 03/16/2022 11:42 03/16/2022 3:02 (Nephrostomy AM [facility] PM [facility] Tube, Right) Narrative MD [facility] - 3 4:41 PM [facility] Cultures are held for 4 weeks before fin alization. Tye Alcantar MD MICROBIOLOGY - GENERAL ORDER [place] Performing Organization Address City/State/ZIP Code Phon e Number MD [place] [facility] Unless otherwise noted, [place] [address] [place] all lab tests performed by: Division of Pathology and Laboratory Medicine [address] [place] [address] [employer] Culture w/Smear (03/16/2022 11:42 AM [facility] CL[facility]) Component Value Ref Test Analysis Performed At [facility] gist Range Method Time Signature Final Report No acid fast ANGIE MATHEW bacteria isolated [place] at 8 weeks. CANCER CENTER Path Review - Culture yield may be affecte d by sample quality, prior treatment, and transportation conditions. ANGIE MATHEW AFGabrielle ... ANATOLY The results have been reviewed and electronically signed b y Pathologist: CANCER Otoniel Houser MD, PhD #[id number] C ENTER Acid Fast No Acid Fast ANGIE MATHEW Stain Truant Bacilli seen in [place] direct smear [facility] Specimen Anatomical Collection Method Collection Time Receive d Time (Source) Location / / Volume Laterality Kidney Fl 03/16/2022 11:42 03/16/2022 3:01 (Nephrostomy AM [facility] PM [facility] Tube, Right) Narrative MD [facility] - 3 10:11 PM [facility] Cultures are held 8 weeks before finaliz ation. Tye Alcantar MD MICROBIOLOGY - GENERAL ORDER [place] Performing Organization Address City/State/ZIP Code Phon e Number MD [place] [facility] Unless otherwise noted, [address] all lab tests performed by: Division of Pathology and Laboratory Medicine [address] [place] COVID-19 (SARS-CoV-2) PCR-Asymptomatic [facility] (03/14/2022 2:28 PM [facility] CLAM DRED[facility]) [facility] QR Artist Method Time Signature COVID19 (SARS Not Detected Not Detected ANGIE MATHEW CoV-2) Result [facility] Comment: This test is a qualitative reverse-trans [...] fact sheet for patients provided by the welfare administrator ( [employer]) can be rev iewed at: https://www.fda.gov/media/813652/downloa d. A fact sheet for Health Care providers is provided by the welfare administrator ([employer]) and can be reviewed at: https://www.fda.gov/media/250270/download Results must be interpreted within the c [...] were verified by the Microbiology Laboratory at [facility], CLIA Accreditation #: [id number] and CAP Accreditation #: [id number]. COVID19 SARS Source WATER RESOURCE PROJECT MANAGER Swab MD MD [facility] COVID19 SARS Indication Pre-Out of OR Procedure [facility] Specimen (Source) Anatomical Collection Method Collection Time Re ceived Time Location / / Volume Laterality Nasopharyngeal Swab 03/14/2022 2:28 03/14 PM [facility] 5:25 PM [facility] Dante Christy MD MICROBIOLOGY - GENERAL ORDER [place] Performing Organization Address City/State/ZIP Code Phon e Number [facility] Unless otherwise noted, [place] [address] [place] all lab tests performed by: Division of Pathology and Laboratory Medicine [address] [place] Uric Acid (03/10/2022 12:52 PM [facility])Only the most recent of11 resultswithin the time period is included. athologist [facility] Uric Acid 6.5 3.4 - 7.0 [place] mg/dL Comment: [facility] [address] [place] [address] Specimen Anatomical Collection Method Collection Time Receive d Time (Source) Location / / Volume Laterality Blood 03/10/2022 12:52 03/10/2022 PM [facility] 12:53 PM [facility] - 03/10/2022 1:18 PM [facility] Madi Shawana Richard: Rachana Lopez NP LAB BLOOD ORDERABLES Performing Organization Address City/State/ZIP Code Phon e Number [place], [place] [id number] [place] [address] Free T3 (03/10/2022 12:52 PM [facility] CLAM DREDGE)Only the most recent of11 resultswithin the time period is included. [facility] Free T3 2.4 2.0 - 4.4 [place] pg/mL Comment: Performed at [facility], [address] [place] [address] Specimen Anatomical Collection Method Collection Time Receive d Time (Source) Location / / Volume Laterality Blood 03/10/2022 12:52 03/10/2022 PM [facility] 12:53 PM [facility] - 03/10/2022 1:55 PM [facility] [id number] [place] Richard: Rachana Lopez NP LAB BLOOD ORDERABLES Performing Organization Address City/State/ZIP [facility] Phon e Number [place], [place] [phone] [place] [address] (ABNORMAL) L[facility] (03/10/2022 12:52 PM [facility] CLAM DREDGE)Only the most recent of11 resultswithin the time period is included. athologist [facility] LDH 261 (H) 135 - 225 [place] U/L Comment: Results greater than 1651 U/L may not be reliable due to matrix effect with extended dilution as it exceeds the welfare administrator's recommended limit. Caution should be exercised when interpreting such values and done in conjunction with clinical context. Testing performed at [facility] [address] [facility], [place] [address] Specimen Anatomical Collection Method Collection Time Receive d Time (Source) Location / / Volume Laterality Blood 03/10/2022 12:52 03/10/2022 PM [facility] 12:53 PM [facility] Narrative [place] - 03/10/2022 2:02 PM [facility] CLAM DREDGE [id number], [id number] Holly Dewey: Rachana Lopez WATER RESOURCE PROJECT MANAGER LAB BLOOD ORDERABLES Performing Organization Address City/State/[place] [address] [place] [address] MRI CERVICAL THORACIC LUMBAR SPINE W WO CONTRAST (02/20/2022 2:34 PM [facility]ED[facility]) Anatomical Region Laterality Modality Spine, C-spine, T-spine, L-spine Magneti c Resonance Specimen (Source) Anatomical Collection Method Collection Time Re ceived Time Location / / Volume Laterality 02/20/2022 3:02 PM [facility] Impressions 02/20/2022 3:43 PM [facility] 1. Sacral and right iliac tumor. 2. Tumor also involves the sacral canal and neural foramina. 3. Likely focus of metastasis in the rig ht posterior body wall at L2. 4. Discogenic degenerative change. 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 P athologist Signature UA WBC 15 (H) 0 - 2 /HPF [facility] UA RBC 4 (H) 0 - 2 /HPF [facility] UA Mucous NOT SEEN Not [facility] Seen-Trace [facility] UA Bacteria NOT SEEN NOT SEEN [facility] UA Squam Epi OCC None-Occas [facility] ional /[facility] UA Trans Epi OCC (A) NOT SEEN [facility] UA Hyal Cast 1 0 - 2 /LPF [facility] Specimen Anatomical Collection Method Collection Time Receive d Time (Source) Location / / Volume Laterality Urine 02/10/2022 12:19 02/10/2022 1:09 PM [facility] PM [facility] Narrative [facility] - 2 1:48 PM [facility] Some reporting parameters within the Urinalysis test have changed due to the implementation of new in strumentation in the [facility], allowi ng greater sensitivity of measurement. Urinalysis results reported by the [facility] Centers using existing instrumentation, as well as Urinalysis t esting performed manually or by backup methodology at the [facility] will remain relatively unchanged. New reporting parameters and units will now be reported for all campuses. Dante Christy MD URINE ORDERABLES Performing Organization Address City/State/ZIP Code Phon e Number [facility] CANCER Unless otherwise [address] all lab tests performed by: Division of Pathology and Laboratory Medicine [facility] Bone Scan Whole Body (01/23/2022 2:59 PM [facility])Only the most recent of3 results within the time period is included. Anatomical Region Laterality Modality Whole Body Nuclear Medicine Specimen (Source) Anatomical Collection Method Collection Time Re ceived Time Location / / Volume Laterality 01/23/2022 3:00 PM [facility] Impressions 01/23/2022 3:54 PM [facility] Similar appearance of the active osseous metastatic disease involving the right femur and pelvis since prior study dated 11/17/2021. I personally reviewed these image(s) nery ng with the resident's/fellow's interpretations, certify that if a procedure was performed I was physically present, and agree with the final report. Narrative 01/23/2022 3:54 PM [facility] FULL RESULT: Examination: Whole-Body Bone Scan, 01/23 [...] VW BILATERAL W PELVIS (01/23/2022 12:44 PM [facility]) Anatomical Region Laterality Modality Hip, Extremity Digital Radiography Specimen (Source) Anatomical Collection Method Collection Time Re ceived Time Location / / Volume Laterality 01/23/2022 1:44 PM [facility] Impressions 01/23/2022 2:02 PM [facility] Increased interval sclerosis in multifoc al lytic bone metastases in pelvis, including sacrum, and right proximal femur indicat ing interval healing. Narrative 01/23/2022 2:02 PM [facility] FULL RESULT: Examination: XR Right Hip, including [...] Code Phon e Number [facility] [place] [address] [address] Potassium Level (12/16/2021 3:48 PM CDT) athologist Signature Potassium Lvl 4.8 3.5 - 5.1 [facility] mEq/L [facility]CER CENTER Specimen Anatomical Collection Method Collection Time Receive d Time (Source) Location / / Volume Laterality Blood 12/16/2021 3:48 PM 2 4:52 CDT PM CDT Narrative [facility] - 2 5:00 PM CDT After kayexalate Leonor [facility] WATER RESOURCE PROJECT MANAGER LAB BLOOD ORDERABLES Performing Organization Address City/State/ZIP Code Phon e Number [facility] CANCER Unless otherwise noted, [place] [address] CENTER all lab tests performed by: Division of Pathology and Laboratory Medicine [address] [facility] [address] GUIDED BIOPSY PELVIC NON-BONE (11/04/2021 11:10 AM CDT) Anatomical Region Laterality Modality Abdomen/Pelvis Computed Tomography Specimen (Source) Anatomical Location Collection Method / Collectio n Time Received Time / Laterality Volume Narrative 11/04/2021 2:21 PM CDT Date of Procedure: 11/04/21 Attending Physician: Joel Valadez MD Water Pump Servicer: None Pre Procedure Diagnosis: 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 Leonor Uthup WATER RESOURCE PROJECT MANAGER IMG IR ORDERABLES IR CT GUIDED BIOPSY LYMPH NODE (09/19/2021 4:09 PM CDT) Anatomical Region Laterality Modality Computed Tomography Specimen (Source) Anatomical Location Collection Method / Collectio n Time Received Time / Laterality Volume Narrative 09/19/2021 4:27 PM CDT Date of Procedure: 09/19/21 Attending Physician: Tye Alcantar MD Water Pump Servicer: None Pre Procedure Diagnosis: Screening for cancer; [...] with Interventional Radi ology required. Leonor Hernandez NP IMG IR ORDERABLES Hepatitis C Virus Ab (09/10/2021 1:52 PM CDT) [facility] Method Time Signature HCVAb. Non Reactive Non Reactive [facility] Comment: Antibody detection in the immunocompromi sed [...] PM 2 2:35 CDT PM CDT Narrative [facility] - 2 10:36 AM CDT Screening [facility] BLOOD ORDERABLES Performing Organization Address City/[facility] Phon e Number [facility] Unless otherwise noted, [address] all lab tests performed by: Division of Pathology and Laboratory Medicine [address] [place] [address] Hepatitis B Surface Ag (09/10/2021 1:52 PM CDT) [facility] Signature HBsAg. Non Reactive Non Reactive [facility] Specimen Anatomical Collection Method Collection Time Receive d Time (Source) Location / / Volume Laterality Blood 09/10/2021 1:52 PM 2 2:35 CDT PM CDT Narrative [facility] - 2 10:36 AM CDT [facility] B[facility]OD ORDERAB[facility] Performing Organization Address City/[facility] Phon e Number [facility] Unless otherwise noted, [address] all lab tests performed by: Division of Pathology and Laboratory Medicine [address] (ABNORMAL) Protein/Creatinine Ratio Urine (08/19/2021 11:08 AM CDT) athologist Signature UTP Ran 14 mg/dL [facility] [place] Comment: Normal range not available for collections less than 24 hours in duration. U Creatinine 27.7 (L) 40.0 - 278.0 mg/dL MD MD [facility] [place] Comment: The reference range listed is f or first morning urine collection. U Prot/Creat 0.51 (H) <=0.14 g/g [facility] Specimen Anatomical Collection Method Collection Time Receive d Time (Source) Location / / Volume Laterality Urine 08/19/2021 11:08 08/19/2021 AM CDT 11:27 AM CDT [facility] URINE ORDERABLES Performing Organization Address City/[facility]/ZIP Code Phon e Number [facility]CER Unless otherwise noted, [address] all lab tests performed by: Division of Pathology and Laboratory Medicine [facility] Lipase Level (08/19/2021 11:04 AM CDT)Only the most recent of4 resultswithin the time period is included. athologist [facility] Lipase Lvl 39 13 - 60 U/L [facility] Comment: Testing Performed at [facility] Lab Am [facility] Care [facility], [address], [place] [address] Specimen Anatomical Collection Method Collection Time Receive d Time (Source) Location / / Volume Laterality Blood 08/19/2021 11:04 08/19/2021 AM CDT 11:15 AM CDT [facility] LAB BLOOD ORDERABLES Performing Organization Address City/State/ZIP Code Phon e Number [facility] [address] [place] [address] [address] Amylase Level (08/19/2021 11:04 AM CDT)Only the most recent of4 resultswithin the time period is included. athologist Signature Amylase Lvl 100 28 - 100 [facility] U/L Comment: Testing Performed at [facility] Lab Am bulatory Care [facility], [address], [place] [address] Specimen Anatomical Collection Method Collection Time Receive d Time (Source) Location / / Volume Laterality Blood 08/19/2021 11:04 08/19/2021 AM CDT 11:15 AM CDT Corintashi David WATER RESOURCE PROJECT MANAGER LAB BLOOD ORDERABLES Performing Organization Address City/State/ZIP Code Phon e Number [facility] [address] [place] [address] [address] Hemoglobin A1c (08/05/2021 10:52 AM CDT) P athologist Signature A1C 5.2 4.3 - 5.6 % [facility] Comment: HbA1c values >=6.5% are diagnostic of di abetes mellitus. Diagnosis should be confirmed by repeat testing. 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 LAB BLOOD ORDERABLES Performing Organization Address City/[facility]/ZIP Code Phon e Number [facility] CANCER Unless otherwise noted, [place] [address] CENTER all lab tests performed by: Division of Pathology and Laboratory [facility] after 06/30/2021 Insurance Payer Benefit Plan / Subscriber ID Effective Dates Phone Addre ss Type Group AETNA MEDICARE AETNA MEDICARE [id number] 2022-Presen [address] [place] [address] Guarantor Name Account Type Relation to Date of Phone Bill ing Patient Address Mary Bullock Personal/Family Self [address] (Home) [place] [phone] (Work) Mary Bullock Personal/Family Self [address] (Home) [place] [address] Advance Directives Type Date Recorded 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 Advance Directives: 12/10/2020 Directive to Physicians Living Will and Family or Surrogates-Hayley Savage Advance Directives: 12/10/2020 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 Dimpling 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 Code Status Date Activated Date Inactivated Comments Full Code 03/16/2022 12:58 PM 03/17/2022 3:34 PM Code Status Date Activated Date Inactivated Comments Full Code 06/15/2021 11:56 AM 06/18/2021 2:35 PM Full Code 08/21/2020 11:46 PM 08/27/2020 4:03 PM Full Code 08/06/2020 2:34 AM 08/07/2020 5:30 PM Full Code 04/08/2020 5:15 PM 04/12/2020 7:49 PM 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
--- OUTSIDE RECORDS SUMMARY | 2022-06-30 23:14 | XMS REPORT | Continuity of Care Document ---
:1950 Author Organization [facility] t Address [address] [place] [address] [place] [id number] Care Team Providers Name Role Phone [phone] Primary Care Physician Unavailable SYSTEM, PROVIDER NOT IN Attending Clinician Unavailable LILIBETH RODRIGUEZ Attending Clinician Unavailable Joan Vaughn MD Attending Clinician Chloe Murray RN Attending Clinician Ariela Batres RN Attending Clinician [phone] Carina Rincon Attending Clinician JOAN VAUGHN Attending Clinician Unavailable Tony Saldaña RN Attending Clinician CARINA QUEEN Attending Clinician Unavailable Christophe Garcia MD Attending Clinician Pillo Mendoza MD Attending Clinician CHRISTOPHE GARCIA Attending Clinician Unavailable Jose Mcintosh RN Attending Clinician Unavailable Abhishek Kunz MA Attending Clinician Altagracia Reeves Attending Clinician Layla RN, Dada Schuster Attending Clinician Unavailable Baylee Calle APN Attending Clinician Faizan BRODY, Maranda Kitchen Attending Clinician Unavailable Marilou BRODY, Vivek Delgado Attending Clinician Kemi BRODY, Igor Monreal Attending Clinician Unavailable Kirill MATHEW, Светлана Attending Clinician David [facility], Lilibeth K Attending Clinician Unavailable MEGAN MAYERS Attending Clinician Unavailable JAN TOBIN Attending Clinician Unavailable MAK MONTGOMERY Attending Clinician Unavailable Mak Montgomery DO Attending Clinician [phone] Dipti MATHEW, Sarah Quiles Attending Clinician Liana MATHEW, Lokesh Carcamo Attending Clinician [phone] Alfredo MATHEW, Sunedwar In H Attending Clinician Vianney MATHEW, Jan Attending Clinician Merchant MATHEW, Rick Espinal Attending Clinician [phone] Ana BRODY, Bárbara Hernandez Attending Clinician Unavailable Shaun Resendiz MD Attending Clinician SHAUN RESENDIZ Attending Clinician Unavailable Isabel Marin MD Attending Clinician Unavailable Rambo BRODY, Isamar Briggs Attending Clinician Unavailable Vamsi BRODY, Mary Kay Mcdermott Attending Clinician Hamiltno BRODY, Dev Hernandez Attending Clinician Unavailable Cale BRODY, June Attending Clinician Unavailable Marvel Villafuerte MD Attending Clinician JULIETA LUX Attending Clinician Unavailable Baylee Nicole Attending Clinician Temi Das MD Attending Clinician Julián BRODY, Iris Ball Attending Clinician Unavailable NAIN VERGARA Attending Clinician Unavailable Jadiel Oakes Attending Clinician Unavailable Alisha NICKERSON, Nain Attending Clinician Lucille Chu Attending Clinician Vidhya Alcantar MD Attending Clinician Vicenta GRIGSBY, Taya Cervantes Attending Clinician Silvina Paz Attending Clinician Hussain Tovar MA Attending Clinician Unavailable Milad MATHEW, Vincent Attending Clinician [phone] John NICKERSON, Rachana Aguilar Attending Clinician RACHANA MARTIN Attending Clinician Unavailable Sunny BRODY, Nette Thapa Attending Clinician Alissa Koenig RN Attending Clinician RICK COURTNEY Attending Clinician Unavailable Angela Palomo Attending Clinician Nino GRIGSBY, Carson Anaya Attending Clinician NELI CALDWELL Attending Clinician Unavailable Davida Du Attending Clinician Keyon Benavides Attending Clinician Unavailable [facility]ICK[facility], Candelario Attending Clinician Pam BRODY, Shine Mcdermott Attending Clinician Unavailable Wojciech Guzman MD Attending Clinician Gordon [facility] Attending Clinician Neida Car APN Attending Clinician Sonia Cosme RN Attending Clinician CANDELARIO HERNANDEZ Attending Clinician Unavailable Arabella [facility] Attending Clinician ROSY GRAY Attending Clinician Unavailable Swapna Fontaine Attending Clinician JULIAN LAND Attending Clinician Unavailable Sadia [facility]isca Attending Clinician Joel Valadez MD Attending Clinician Sterling Hurtado RN Attending Clinician Unavailable JOSE MOHAMUD Attending Clinician Unavailable Kim Saunders MA Attending Clinician Unavailable Lynn Green Attending Clinician Radha Kaplan RNelyn A Attending Clinician Unavailable Tonya Warren Attending Clinician Chucky MATHEW, Zeus Attending Clinician Rory MATHEW, Cynthia Attending Clinician Guillermina MATHEW, Flavia Attending Clinician Irvin Ordaz MD Attending Clinician Vick Murillo Attending Clinician Simona CHAPAP, Brandan Attending Clinician Angi RN, Malinda Kim Attending Clinician Unavailable Serafin MUSIC WRITER, Rosa Isela Attending Clinician Anjali RD, Sara Mcdermott Attending Clinician Quintin GRIGSBY, Ale Attending Clinician Sebastian BRODY, Tanya Attending Clinician Unavailable John Gongora MD Attending Clinician Tay Holliday MD Attending Clinician Emmanuelle Lowe MD Attending Clinician TAY HOLLIDAY Attending Clinician Unavailable ANDREINA WILKERSON Attending Clinician Unavailable Crystal Tineo RN Attending Clinician Vernon BRODY, Mary Lou Quiles Attending Clinician Unavailable FER NIXON Attending Clinician Unavailable FLAVIA GUIDRY Attending Clinician Unavailable HUNTER MAYERS Attending Clinician Unavailable DUANE LEES III Attending Clinician Unavailable MORE GAMBINO Attending Clinician Unavailable BRANNON CUNNINGHAM Attending Clinician Unavailable BRANDAN KAT Attending Clinician Unavailable VON CHEUNG Attending Clinician Unavailable REAL HOWARD Attending Clinician Unavailable DEANA GREENE Attending Clinician Unavailable VINCENT STINSON Attending Clinician Unavailable STERLING MCKEON Attending Clinician Unavailable JAVY ERIC Attending Clinician Unavailable KATHIE LAWS Attending Clinician Unavailable LESLYE BENNETT Attending Clinician Unavailable NAEL KNOX Attending Clinician Unavailable FREDDY BEAN Attending Clinician Unavailable ROSY GARIBAY Attending Clinician Unavailable HANNAH GUZMAN Attending Clinician Unavailable GABRIELLE SMITH Attending Clinician Unavailable JOHN GONGORA Attending Clinician Unavailable СВЕТЛАНА GARSIA Attending Clinician Unavailable JOSE BAE Attending Clinician Unavailable ISABEL HOYOS Attending Clinician Unavailable MELITON QUEEN Attending Clinician Unavailable LISA FABIAN Attending Clinician Unavailable Franky Peralta Attending Clinician LILIBETH RODRIGUEZ Admitting Clinician Unavailable RICK KAY Admitting Clinician Unavailable VIDHYA ALCANTAR Admitting Clinician Unavailable EMMANUELLE LOWE Admitting Clinician Unavailable MARLO JORGE Admitting Clinician Unavailable JOAN VAUGHN Admitting Clinician Unavailable REAL HOWARD Admitting Clinician Unavailable ROSY GARIBAY Admitting Clinician Unavailable ISABEL HOYOS Admitting Clinician Unavailable JOHN GONGORA Admitting Clinician Unavailable LOKESH PATIÑO Admitting Clinician Unavailable Payers Payer Name Policy Type Policy Number Effective Date Expiration Date S jose MEDICARE A B [id number] 2013 00:00:00 [employer] MEDICARE HMO [id number] 2018 POS 00:00:00 MEDICARE PART A AND [id number] 2013 B 00:00:00 [employer] NON [id number] 2000 CONTRACTED 00:00:00 Problems Condition Condition Condition Status Onset Resolution Last Treating Co mments Source Name Details Category Date Date Treatment Clinician Date Severe Severe Disease [facility]urre [facility] [place] Urothelial Urothelial Disease Recurre [facility] cancer cancer nce 2-[facility] [place] Acute Acute Disease Recurre [facility] hypoxemic hypoxemic nce 2-24 [facility] respirator respirator 00:00: Me dical y failure y failure 00 Cent er Pneumonia Pneumonia Disease Active [facility] 00 [place] Pain Pain Disease Active Univers management management 1-13 it y of education education 00:00: [place] for family for family 00 MD [facility] 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 00:00: [place] of of 00 retroperit retroperit An derso oneum and oneum and n peritoneum peritoneum [facility] Metastatic Metastatic Disease Active U tammy malignant malignant 1-05 ity of neoplasm neoplasm 00:00: [place] to lymph to lymph 00 nodes of nodes of [place] o multiple multiple n sites sites Cancer Center Other Other Disease Active Univers retention retention 1-05 ity of of urine of urine 00:00: [place] 00 MD Candie ball [facility] Advance Advance Disease Active 2021-03 Univers care care 2-30 ity of planning planning 00:00: [place] 00 MD Candie ball [facility] Lower Lower Disease Active Univers urinary urinary 4-10 ity of tract tract 00:00: [place] infectious infectious 00 disease disease [facility] Hyperkalem Hyperkalem Disease Active U tammy ia ia 7-27 ity of 00:00: [place] 00 MD Candie ball [facility] Nephrostom Nephrostom Disease Active U nivers y y 6- ity of 00:00: [place] 00 MD Candie ball [facility] Infection Infection Disease Active Uni vers due to due to 6 ity of Human Human 00:00: [place] parainflue parainflue 00 nza virus nza virus Raymundo rso 3 3 Cancer Center 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 tis 00:00: [place] syndrome syndrome 00 MD [facility] Fever Fever Disease Active Univers presenting presenting 2- it y of with with 00:00: [place] conditions conditions 00 classified classified An derso elsewhere elsewhere n Cancer Center Other Other Disease Active Univers elevated elevated 2- ity of white white 00:00: [place] blood cell blood cell 00 count count [facility] Blood Blood Disease Active Univers coagulatio coagulatio 2- it y of n disorder n disorder [place] [facility] Renal Renal Disease Active Univers insufficie insufficie 2- it y of ncy ncy 00:00: [place] 00 MD Candie ball [facility] Metastatic Metastatic Disease Active 2021-0 U nivers malignant malignant 1-11 ity of neoplasm neoplasm 00:00: [place] to bone to bone 00 MD Candie [facility] Moderate Moderate Disease Active 2019-03 Unive rs protein-ca protein-ca 2-30 it y of aurelia moses 00:00: [place] malnutriti malnutriti 00 MD on on [facility]ie [facility] Neuropathy Neuropathy Disease Active 2019-03 U nivers 2-09 ity of 00:00: [place] 00 MD Candie [facility] Primary Primary Disease Active 2019-03 Overview: Univ [...] [place] stic chemo stic chemo 00 MD [facility] 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 0-13 it y of disease disease 00:00: [place] 00 MD Candie ball [facility] Paraplegia [facility]aplegia Disease [facility] ity of 00:00: [place] 00 MD Candie ball [facility] Personal Personal Disease Active Unive rs history of history of 9-28 it y of malignant malignant 00:00[place] neoplasm neoplasm 00 of bladder of bladder An derdonald n Cancer [place] Essential Essential Disease Active [facility] hypertensi hypertensi 8- Kourtney kes on on 00:00: Medical 00 Center BPH BPH Disease Active [facility] (benign (benign - [facility] prostatic prostatic 00:00: Medi danika hyperplasi hyperplasi 00 Ce nter a) a) History of History of Disease Active [facility] poliomyeli poliomyeli 8- Kourtney kes tis tis 00:00: Medical 00 [place] FOLLOW UP FOLLOW Diagnosis Active 2018-10-20 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 07-06 ity of 00:00: [place] 00 MD [facility] PARAPLEGIA PARAPLEGI Diagnosis Active 2018-10-20 [place] , Judy, 10:22:00 l UNSPECIFIE UNSPECIFIE He rmann D D Active MH [facility] Hematuria Hematuria Disease Resolve 2022-05-03 2022-05-[address] [facility] d 10-31 00:00:00 12:09:48 [facility] Center Overactive Overactive Disease Resolve 2022-05-03 2022-05-[address] [facility] bladder bladder d 10-31 00:00:00 12:09:44 [facility] s 00:00: Medical 00 Center Allergies, Adverse Reactions, Alerts Allergy Allergy Status [...] Class 9-28 Anderso 00:00: n 00 PENICILL Allergy Active 2020-[address] [facility] INS 8-26 [facility] 00:[facility]: Medical 00 Center Penicill Propensi Active 2020-[address] [facility] [address] ins ty to 8-26 swelling [facility] adverse 00:00: - Medical reaction 00 tolerates Cente r s ceftriaxo ne, cefepime. NO KNOWN Allergy Active SLE ALLERGIE S Family History Family Member Diagnosis Comments Start Date Stop Date Source Natural father Stroke [facility] Cance r [place] Social History Social Habit Start Date Stop Date Quantity Comments Source Exposure to 2022-06-09 2022-06-19 Not sure University [facility]-CoV-2 (event) 00:00:00 11:38:00 [facility] Alcohol intake 2022-06-12 2022-06-12 Ex-drinker University 00:00:00 00:00:00 (finding) [place] MD Vern galvan [facility] Cigarettes smoked 2019-12-04 2019-12-04 Univers ity of current (pack per 00:00:00 00:00:00 [place] Brigitte Cervantes ) - Reported Cancer Ce nter Cigarette 2019-12-04 2019-12-04 University of pack-years 00:00:00 00:00:00 [place] MD Vern galvan [facility] Tobacco use and 2019-12-04 2019-12-04 Former smokeless Uni versity of exposure 00:00:00 00:00:00 tobacco user [place] [facility] Alcohol Comment 2019-12-04 2019-12-04 quit 2 beers per Uni versity of 00:00:00 00:00:00 day 10 weeks ago [facility] Social History 2018-11-19 2018-11-19 [facility] 04:59:00 04:59:00 History of tobacco 1964-03-08 2017-03-08 Snuff User Univer sity of use 00:00:00 00:00:00 [place] MD Vern galvan [facility] Sex Assigned At 1950 [address] [facility] 00:00:00 00:00:00 Medical Center Smoking Status Start Date Stop Date Source Ex-smoker 2019-12-04 00:00:00 2019-12-04 [facility] [place] [facility] Medications Ordered Filled Start Stop Current Ordering Indication Dosage Frequency Signature Comments Components Source Medication Medication Date Date Medication? Clinician (SIG) Name Name multivitami Yes 1{capsu Take 1 U nivers n capsule 4-14 le} capsule by ity of 12:01: mouth [place] 40 daily. Vitamin [place] Supplement n . Cancer [place] acetaminoph Yes 1000mg Take 2 Un tish en 4-14 tablets ity of (TYLENOL) 12:01: (1,000 mg) [place] 500 mg 40 by mouth 3 MD tablet (three) Anders[place] times a n day. Cancer Center HYDROmorpho Yes Cancer 4mg Take 1 Un tish ne 4-07 associated tablet (4 ity of (Dilaudid) 00:00: pain mg) by [place] 4 mg tablet 00 mouth MD every 4 Anderso (four) n hours as Cancer needed for Center moderate pain or severe pain. mirtazapine Yes Insomnia 15mg Take 1 Univers (REMERON) 4-07 due to tablet (15 it y of 15 mg 00:00: medical mg) by [place] tablet 00 condition mouth at MD bedtime. [facility] Cancer Center metoclopram Yes Nausea 10mg Take 1 Un tish rodri 3-31 tablet (10 ity of (REGLAN) 10 00:00: mg) by [place] mg tablet 00 mouth 3 MD (three) [place] times a n day before Cancer meals. Center methadone 0 Yes Cancer 20mg Take 2 Univ ers (DOLOPHINE) 3-14 associated tablets by ity of 10 mg 00:00: pain mouth [place] tablet 00 every 8 MD (eight) Anders[place] hours, n Cancer Center SantyL Yes 1{appli Apply 1 Unive rs ointment 3-08 cation} applicatio it y of 00:00: n [place] 00 topically MD to Anderso affected n area(s) Cancer daily. Center gabapentin Yes Cancer TAKE 1 Uni vers (NEURONTIN) 3-06 associated CAPSULE BY ity of 300 mg 00:00: pain MOUTH AT [place] capsule 00 BEDTIME [facility]an l[facility] n [facility] ondansetron Yes Nausea 8mg Take 1 Un tish (Zofran) 8 3-06 alone tablet (8 ity of mg tablet 00:00: mg) by [place] 00 mouth MD every 8 Anderso (eight) n hours as Cancer needed for Center nausea or vomiting. methadone 2022-0 2023- No Cancer 20mg Take 2 Uni vers (DOLOPHINE) 3-06 03-14 associated tablets ity of 10 mg 00:00: 00:00 pain (20 mg) by [place] tablet 00 :00 mouth MD every 8 Anderso (eight) n hours. Cancer Center propranoloL Yes 40mg [id number] Take [address] [facility] (INDERAL) - [id number] by mouth 3 [facility] 40 MG 11:14: 3D (three) Medical tablet 41 times Center daily. lisinopriL Yes 20mg QD Take [address] (PRINIVIL,Z 3-02 by mouth Luke s ESTRIL) 20 11:14: daily. Medic al MG tablet 41 Center finasteride 0 Yes 5mg QD Take [address] (PROSCAR) 5 3-02 by mouth Luke s mg tablet 11:14: daily. Medica l 41 Center tamsulosin Yes .4mg QD Take 0.[address] [facility] (FLOMAX) 3-02 mg by [facility] 0.4 mg Cap 11:14: mouth Medica l 24 hr 41 daily. Center capsule zinc Yes 2g Q.5D Apply [address] [facility] oxide-joshua 05-07 topically Cathy es latum 00:00: 2 (two) Medical (CRITIC-AID 00 times Center ) 20-51 % daily. Pste topical paste folic 2022- Yes 1{tbl} QD Take [address] [facility] acid-multiv 05-07- tablet by Kourtney hall itamins 00:00: 23:59 mouth Medical (NEPHRO-VIT 00 :[address]) 0.8 mg 60 days. Tab tablet gabapentin 2022- No 300mg QD Take [address] [facility] (NEURONTIN) 05-07- capsule Luke s 300 MG 00:00: 23:59 (300 mg Medical capsule 00 :00 total) by [place] mouth nightly for 30 days. ondansetron 2022- No 4mg Take [address] [facility] (ZOFRAN-ODT 05-07 03-09 tablet (4 Kourtney kes ) 4 MG 00:00: 23:59 mg total) Medic al disintegrat 00 :00 by mouth Cent er ing tablet every 8 (eight) hours as needed for Nausea for up to 7 days. multivitami Yes 1{capsu Take 1 U nivers n capsule 2-22 le} capsule by ity of 13:55: mouth [place] 59 daily. Vitamin [place] Supplement n . Cancer [place] acetaminoph Yes 1000mg Take 2 Un tish en 2-22 tablets ity of (TYLENOL) 13:55: (1,000 mg) [place] 500 mg 59 by mouth 3 MD tablet (three) Anders[place] times a n day. Cancer [place] methadone Yes Cancer 10mg Take 2 Univ ers (DOLOPHINE) 2-07 associated tablets ity of 5 mg tablet 00:00: pain (10 mg) by [place] 00 mouth MD every 8 Anderso (eight) n hours. Cancer [place] methadone 0 2022- No Cancer 10mg Take 2 Uni vers (DOLOPHINE) 2- 03-06 associated tablets ity of 5 mg tablet 00:00: 00:00 pain (10 mg) by [place] 00 :00 mouth MD every 8 Anderso (eight) n hours. [facility] IBUPROFEN 0 2022- No 200mg Take 200 Un tish ORAL 2- 02-03 mg by ity of 14:14: 00:00 mouth [place] 27 :00 daily. MD Takes 2 [place] tabs of n 200 mg Cancer Ibuprofen [place] PO daily IBUPROFEN 0 2022- No 200mg Take 200 Un tihs ORAL 2- 02-03 mg by ity of 14:14: 00:00 mouth [place] 27 :00 daily. MD Takes 2 Anderso tabs of n 200 mg Cancer [facility] PO daily methadone 2022-0 2022- No Cancer 10mg Take 2 Uni vers (DOLOPHINE) 2 02- associated tablets ity of 5 mg tablet 00:00: 00:00 pain (10 mg) by [place] 00 :00 mouth MD every 8 Anderso (eight) n hours. Cancer [place] methadone 2022-0 2022- No Cancer 10mg Take 2 Uni vers (DOLOPHINE) 2- 02-07 associated tablets ity of 5 mg tablet 00:00: 00:00 pain (10 mg) by [place] 00 :00 mouth MD every 8 Anderso (eight) n hours. Cancer [place] methadone 2022-0 202- No Cancer Take two U nivers (DOLOPHINE) 2 02-03 associated tablets PO ity of 5 mg tablet 00:00: 00:00 pain (10 mg) in [place] 00 :00 am, three MD tablets PO Anderso (15 mg) in n afternoon, Cancer two Center tablets PO (10 mg) in evening methadone 2022- No Cancer Take two U nivers (DOLOPHINE) 04-08 associated tablets PO ity of 5 mg tablet 00:00: 00:00 pain (10 mg) in [place] 00 :00 am, three MD tablets PO Anderso (15 mg) in n afternoon, Cancer two Center tablets PO (10 mg) in evening ciprofloxac Yes Cystitis 500mg Take 1 Univers in HCl 1-30 tablet ity of (Cipro) 500 00:00: (500 mg) [place] mg tablet 00 by mouth twice Anderso daily. n Cancer [place] ciprofloxac 2022- No Cystitis 500mg Take 1 Univers in HCl 30 03-14 tablet ity of (Cipro) 500 00:00: 00:00 (500 mg) [place] mg tablet 00 :00 by mouth twice [place]o daily. n Cancer Center erythromyci Yes Primary .5[in_u Administer Univers n (ROMYCIN) 04-03 urothelial s] 0.5 inches ity of 0.5% 00:00: carcinoma into [place] ophthalmic 00 of left eye MD ointment overlapping at Raymundo rso sites of bedtime. n urinary Cancer organs Center erythroci 2022- No Primary .5[in_u Administer Univers n (ROMYCIN) 04-03 03-14 urothelial s] 0.5 inches ity of 0.5% 00:00: 00:00 carcinoma into the [place] as ophthalmic 00 :00 of left eye MD ointment overlapping at Raymundo rso sites of bedtime. n urinary Cancer organs Center methadone 2022- No Cancer Take two U nivers (DOLOPHINE) 03-30 associated tablets PO ity of 5 mg tablet 00:00: 00:00 pain (10 mg) in [place] 00 :00 am, three MD tablets PO Anderso (15 mg) in n afternoon, Cancer two Center tablets PO (10 mg) in evening methadone 2022- No Cancer Take two U [...] tablet 00:00: 00:00 pain (10 mg) by [place] 00 :00 mouth MD every 8 Anderso (eight) n hours. Cancer Center methadone 2022- No Cancer 10mg Take 2 Uni vers (DOLOPHINE) 03-25 associated tablets ity of 5 mg tablet 00:00: 00:00 pain (10 mg) by [place] 00 :00 mouth MD every 8 Anderso (eight) n hours. Cancer Center OLANZapine Yes Insomnia 2.5mg Take 1 Univers (ZyPREXA) 03-24 due to tablet ity of 2.5 mg 00:00: medical (2.5 mg) [place] tablet 00 condition by mouth MD nightly as Anders[place] needed for n anxiety or Cancer sleep. [place] HYDROmorpho Yes Cancer 4mg Take 1 Un tish ne 17 associated tablet (4 ity of (Dilaudid) 00:00: pain mg) by [place] 4 mg tablet 00 mouth MD every 4 Anderso (four) n hours as Cancer needed for Center moderate pain or severe pain. HYDROmorpho 2022- No Cancer 4mg Take 1 U nivers ne 03-24 04-07 associated tablet (4 ity of (Dilaudid) 00:00: 00:00 pain mg) [place] 4 mg tablet 00 :00 mouth MD every 4 Anderso (four) n hours as Cancer needed for Center moderate pain or severe pain. OLANZapine 2022- No Insomnia 2.5mg Take 1 Univers (ZyPREXA) 03-24 03-15 due to tablet ity o f 2.5 mg 00:00: 00:00 medical (2.5 mg) [place] as tablet 00 :00 condition by mouth MD nightly as Anderso needed for n anxiety or Cancer sleep. Center methadone 2022- No Cancer 10mg Take 2 Uni vers (DOLOPHINE) 03-24 associated tablets ity of 5 mg tablet 00:00: 00:00 pain (10 mg) by [place] 00 :00 mouth MD every 8 Anderso (eight) n hours. Cancer Center methadone 2022- No Cancer 10mg Take 2 Uni vers (DOLOPHINE) 03-24 associated tablets ity of 5 mg tablet 00:00: 00:00 pain (10 mg) by [place] 00 :00 mouth MD every 8 Anderso (eight) n hours. Cancer Center HYDROmorpho 2022- No Cancer 4mg Take 1 [...] tablet 00:00: 00:00 pain (10 mg) by [place] 00 :00 mouth MD every 8 Anderso (eight) n hours. Cancer [place] HYDROmorpho 2022- No Cancer 4mg Take 1 U nivers ne 03-19 associated tablet (4 ity of (Dilaudid) 00:00: 00:00 pain mg) by [place] 4 mg tablet 00 :00 mouth MD every 4 Anderso (four) n hours as Cancer needed for Center moderate pain or severe pain. methadone 2022- No Cancer 10mg Take 2 Uni vers (DOLOPHINE) 03-19 associated tablets ity of 5 mg tablet 00:00: 00:00 pain (10 mg) by [place] 00 :00 mouth MD every 8 Anderso (eight) n hours. Cancer [place] mirtazapine Yes Insomnia 15mg Take 1 Univers (REMERON) 1-05 due to tablet (15 it y of 15 mg 00:00: medical mg) by [place] tablet 00 condition mouth at MD bedtime. Anderso n Cancer [place] mirtazapine 2022- No Insomnia 15mg Take 1 Univers (REMERON) 03-12 due to tablet (15 i ty of 15 mg 00:00: 00:00 medical mg) by [place] tablet 00 :00 condition mouth at MD bedtime. [facility] ibuprofen 2021-03- No 800mg Take 1 Univ ers (ADVIL,MOTR 2-30 12-30 tablet ity o f IN) 800 mg 19:19: 00:00 (800 mg) [place] tablet 10 :00 by mouth. MD Taking BID [facility] ibuprofen 2021-03- No 800mg Take 1 Univ ers (ADVIL,MOTR 2-30 12-30 tablet ity o f IN) 800 mg 19:19: 00:00 (800 mg) [place] tablet 10 :00 by mouth. MD Taking BID [facility] ibuprofen 2021-03- No 200mg Take 1 Univ ers (ADVIL,MOTR 2-30 12-30 tablet ity o f IN) 200 mg 15:59: 00:00 (200 mg) [place] tablet 12 :00 by mouth MD every 8 Anderso (eight) n hours as Cancer needed for Center mild pain. ibuprofen 2021-03- No 200mg Take 1 Univ [...] then relapses into respirator y depression . naloxone 2021-03 Yes Cancer Use 1 dose [...] Cancer 100mg Take 1 Un tish (CeleBREX) 03-24 associated capsule ity of 100 mg 00:00: 00:00 pain (100 mg) [place] capsule 00 :00 by mouth MD twice [facility] daily. n [facility] celecoxib 2021-03- No Cancer 100mg Take 1 Un tish (CeleBREX) 03-24 associated capsule ity of 100 mg 00:00: 00:00 pain (100 mg) [place] capsule 00 :00 by mouth MD twice [facility] daily. n Cancer Center methadone 2021-03- No Cancer 10mg Take 2 Uni vers (DOLOPHINE) 03-19 associated tablets ity of 5 mg tablet 00:00: 00:00 pain (10 mg) by [place] 00 :00 mouth MD every 8 [place] (eight) n hours. Cancer [place] HYDROmorpho 2021-03- No Cancer 4mg Take 1 U nivers ne 03-19 associated tablet (4 ity of (Dilaudid) 00:00: 00:00 pain mg) [place] 4 [place] tablet 00 :00 mouth MD every 4 [place] (four) n hours as Cancer needed for Center moderate pain or severe pain. methadone 2021-03- No Cancer 10mg Take 2 Uni vers (DOLOPHINE) 03-19 associated tablets ity of 5 mg tablet 00:00: 00:00 pain (10 mg) by [place] 00 :00 mouth MD every 8 [place] (eight) n hours. Cancer [place] HYDROmorpho 2021-03- No Cancer 4mg Take 1 [...] [place] capsule 00 by mouth MD at [facility] bedtime. n Cancer Center gabapentin 2021-03- No Cancer 300mg Take 1 U nivers (Neurontin) 04-23 associated capsule ity of 300 mg 00:00: 00:00 pain (300 mg) [place] capsule 00 :00 by mouth MD at [facility] bedtime. n Cancer Center methadone 2021-03- No Cancer Take 1.5 U nivers (DOLOPHINE) 04-23 associated tabs (7.5 ity of 5 mg tablet 00:00: 00:00 pain mg) in AM [place] 00 :00 5 mg MD afternoon [place] and 7.5 mg n (1.5 tab) Cancer at night Center methadone 2021-03- No Cancer Take 1.5 U nivers (DOLOPHINE) 04-23 associated tabs (7.5 ity of 5 mg tablet 00:00: 00:00 pain mg) in AM [place] 00 :00 5 mg MD afternoon [place] and 7.5 mg n (1.5 tab) Cancer at night Center HYDROmorpho 2021-03- No Cancer 4mg Take 1 U nivers ne 04-20 associated tablet (4 ity of (Dilaudid) 00:00: 00:00 pain mg) [place] 4 [place] tablet 00 :00 mouth MD every 4 [place] (four) n hours as Cancer needed for Center moderate pain or severe pain. HYDROmorpho 2021-03- No Cancer 4mg Take 1 U nivers ne 04-20 associated tablet (4 ity of (Dilaudid) 00:00: 00:00 pain mg) [place] 4 [place] tablet 00 :00 mouth MD every 4 [place] (four) n hours as Cancer needed for Center moderate pain or severe pain. gabapentin 2021-03- No Neuropathy, 600mg Take 1 Univers (NEURONTIN) 04-20 not tablet ity o f 600 mg 00:00: 00:00 otherwise (600 mg) [place] tablet 00 :00 specified by mouth MD at [facility] bedtime. n Cancer Center gabapentin 2021-03- No Neuropathy, 600mg Take 1 Univers (NEURONTIN) 04-20 not tablet ity o f 600 mg 00:00: 00:00 otherwise (600 mg) [place] tablet 00 :00 specified by mouth MD at [facility] bedtime. n Cancer Center INV-(2021-03- No Malignant 1200mg Take 8 Univers 415) IK-175 04-13 neoplasm of tablets ity of (KYN-175) 00:00: 00:00 overlapping (1,200 mg) [place] 150 mg 00 :00 sites of by mouth MD tablet urinary daily Anderso organs within 30 n minutes of Cancer consuming Center a meal, at [facility] the same time each day. INV-(2021-03- No Malignant 1200mg Take 8 Univers 415) IK-175 04-13 neoplasm of tablets ity of (KYN-175) 00:00: 00:00 overlapping (1,200 mg) [place] 150 mg 00 :00 sites of by mouth MD tablet urinary daily [place] organs within 30 n minutes of Cancer consuming Center a meal, at [facility] the same time each day. ciprofloxac 2021-03 No Malignant 500mg Take 1 Univers in HCl 04-08 neoplasm of tablet ity of (CIPRO) 500 00:00: 05:59 overlapping (500 mg) [place] mg tablet 00 :00 sites of by mouth urinary twice Anderso organs daily for n 7 days. [facility] ciprofloxac 2021-03 No Malignant 500mg Take 1 Univers in HCl 04-0809 neoplasm of tablet ity of (CIPRO) 500 00:00: 05:59 overlapping (500 mg) [place] mg tablet 00 :00 sites of by mouth urinary twice Anderso organs daily for n 7 days. Cancer [place] methadone 2021-03- No Cancer 5mg Take 1 Uni vers (DOLOPHINE) 03-29 associated tablet (5 ity of 5 mg tablet 00:00: 00:00 pain mg) by [place] 00 :00 mouth MD every 8 [place] (eight) n hours. Cancer [place] methadone 2021-03 No Cancer 5mg Take 1 Uni vers (DOLOPHINE) 03-29 associated tablet (5 ity of 5 mg tablet 00:00: 00:00 pain mg) by [place] 00 :00 mouth MD every 8 [place] (eight) n hours. Cancer Center HYDROmorpho 2021-03- No Cancer 4mg Take 1 U nivers ne 03-2913 associated tablet (4 ity of (Dilaudid) 00:00: 00:00 pain mg) by [place] 4 mg tablet 00 :00 mouth MD every 4 [place] (four) n hours as Cancer needed for Center moderate pain or severe pain. HYDROmorpho 2021-03- No Cancer 4mg Take 1 U nivers ne 03-29 associated tablet (4 ity of (Dilaudid) 00:00: 00:00 pain mg) by [place] 4 mg tablet 00 :00 mouth MD every 4 [place] (four) n hours as Cancer needed for Center moderate pain or severe pain. methadone 2021-03- No Cancer 5mg Take 1 Uni vers (DOLOPHINE) 03-24 associated tablet (5 ity of 5 mg tablet 00:00: 00:00 pain mg) by [place] 00 :00 mouth MD every 8 [place] (eight) n hours. Cancer Center methadone 2021-03- No Cancer 5mg Take 1 Uni vers (DOLOPHINE) 03-24 associated tablet (5 ity of 5 mg tablet 00:00: 00:00 pain mg) by [place] 00 :00 mouth MD every 8 [place] (eight) n hours. Cancer [place] naproxen 2021-03- No 220mg Take 220 Uni vers sodium 220 03-15 11-08 mg by ity of mg cap 12:12: 00:00 mouth 2 [place] 54 :00 (two) MD times a [place] day with n meals. Cancer Patient Center only takes it at night for his right knee. naproxen 2021-03- No 220mg Take 220 Uni vers sodium 220 -08 11-08 mg by ity of mg cap 12:12: 00:00 mouth 2 [place] 54 :00 (two) MD times a [place] day with n meals. Cancer Patient Center only takes it at night for his right knee. 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 [place] Take n within 30 Cancer minutes of Center consuming a meal. The dose should be taken at approximat flaquito the same time each day. INV-(2020-0 2021-03- No Personal 1200mg Take 8 Univers 415) IK-175 03-15 history of tablets ity of (KYN-175) 00:00: 22:25 malignant (1,200 mg) [place] 150 mg 00 :28 neoplasm of by mouth MD tablet bladder daily. [place] Take n within 30 Cancer minutes of Center consuming a meal. The dose should be taken at approximat flaquito the same time each day. HYDROmorpho 2021-03- No Cancer 4mg Take 1 U nivers ne 03-10 associated tablet (4 ity of (Dilaudid) 00:00: 00:00 pain mg) by [place] 4 mg tablet 00 :00 mouth MD every 4 [place] (four) n hours as Cancer needed for Center moderate pain or severe pain. HYDROmorpho 2021-03- No Cancer 4mg Take 1 [...] [place] kh[place] 00 :00 mouth MD every 8 [place] (eight) n hours. Cancer Center methadone 2021-03- No Cancer 5mg Take 1 Uni vers (DOLOPHINE) 0-26 01-17 associated tablet (5 ity of 5 mg tablet 00:00: 00:00 pain mg) by [place] kh[place] 00 :00 mouth MD every 8 [place] (eight) n hours. Cancer Center HYDROmorpho 2021-03- No Cancer 4mg Take 1 U nivers ne 001-08 associated tablet (4 ity of (Dilaudid) 00:00: 00:00 pain mg) by [place] 4 mg tablet 00 :00 mouth MD every 4 [place] (four) n hours as Cancer needed for Center moderate pain or severe pain. HYDROmorpho 2021-03 No Cancer 4mg Take 1 U nivers ne 01-08 associated tablet (4 ity of (Dilaudid) 00:00: [...] every 12 [place] (twelve) n hours. Cancer [place] methadone 2021-03 No Cancer 5mg Take 1 Uni vers (DOLOPHINE) 0-17 - associated tablet (5 ity of 5 mg tablet 00:00: 00:00 pain mg) by [place] 00 :00 mouth MD every 12 [place] (twelve) n hours. [facility] 2021-03 Yes Malignant Apply Univers ne 0-11 neoplasm of topically ity of (KENALOG) 00:00: overlapping to [place] 0.5% cream 00 sites of affected M D urinary area(s) 3 Anderso organs (three) n times a Cancer day. [facility] 2021-03- No Malignant Apply Univers ne 0-11 03-14 neoplasm of topically it y of (KENALOG) 00:00: 00:00 overlapping to [place] 0.5% cream 00 :00 sites of affected M D urinary area(s) 3 [place] organs (three) n times a Cancer day. [place] INV-(2021-03- No Personal 1200mg Take 8 Univers 415) IK-175 0-11 11-08 history of tablets ity of (KYN-175) 00:00: 00:00 malignant (1,200 mg) [place] 150 mg 00 :00 neoplasm of by mouth MD tablet bladder daily. [place] Take n within 30 Cancer minutes of Center consuming a meal. The dose should be taken at approximat flaquito the same time each day. INV-(2021-03- No Personal 1200mg Take 8 Univers 415) IK-175 001-13 history of tablets ity of (KYN-175) 00:00: 00:00 malignant (1,200 mg) [place] 150 mg 00 :00 neoplasm of by mouth MD tablet bladder daily. [place] Take n within 30 Cancer minutes of [place] consuming a meal. The dose should be taken at [facility] the same time each day. acetaminoph 2021-03 No 500mg Take Univ ers en 0-10 10-10 500-1,000 ity of (TYLENOL) 11:08: 00:00 mg by [place] 500 mg 36 :00 mouth MD tablet every 6 [place] (six) n hours as Cancer needed for Center mild pain or moderate pain. Buy over the counter. acetaminoph 2021-03 No 500mg Take Univ ers en 0-10 10-10 500-1,000 ity of (TYLENOL) 11:08: 00:00 mg by [place] 500 mg 36 :00 mouth MD tablet every 6 [place] (six) n hours as Cancer needed for Center mild pain or moderate pain. Buy over the counter. mirtazapine 2022- No Insomnia 15mg Take 1 Univers (REMERON) 11-21 due to tablet (15 i ty of 15 mg 00:00: 00:00 medical mg) by [place] tablet 00 :00 condition mouth at bedtime. [facility] mirtazapine 2022- No Insomnia 15mg Take 1 Univers (REMERON) 11-21 due to tablet (15 i ty of 15 mg 00:00: 00:00 medical mg) by [place] tablet 00 :00 condition mouth at bedtime. [facility] gabapentin 2021- No Neuropathy, 600mg Take 1 Univers (NEURONTIN) 11-21 not tablet ity o f 600 mg 00:00: 00:00 otherwise (600 mg) [place] tablet 00 :00 specified by mouth at [facility] bedtime. n [facility] gabapentin 2021- No Neuropathy, 600mg Take 1 Univers (NEURONTIN) 11-21 not tablet ity o f 600 mg 00:00: 00:00 otherwise (600 mg) [place] tablet 00 :00 specified by mouth MD at [facility] bedtime. n Cancer Center HYDROmorpho 2021- No Cancer 2mg Take 1 U nivers ne 11-21 associated tablet (2 ity of (Dilaudid) 00:00: 00:00 pain mg) by [place] 2 mg tablet 00 :00 mouth MD every 4 [place] (four) n hours as Cancer needed Center (pain). HYDROmorpho 2021- No Cancer 2mg Take 1 U nivers ne 11-21 associated tablet (2 ity of (Dilaudid) 00:00: 00:00 pain mg) by [place] 2 mg tablet 00 :00 mouth MD every 4 [place] (four) n hours as Cancer needed Center (pain). methadone 2021- No Cancer 5mg Take 1 Uni vers (DOLOPHINE) 11-21 associated tablet (5 ity of 5 mg tablet 00:00: 00:00 pain mg) by [place] 00 :00 mouth MD every 12 [place] (twelve) n hours. Cancer Center methadone 2021-2021- No Cancer 5mg Take 1 Uni vers (DOLOPHINE) 11-21 associated tablet (5 ity of 5 mg tablet 00:00: 00:00 pain mg) by [place] 00 :00 mouth MD every 12 [place] (twelve) n hours. Cancer Center senna 2021- No 2{tbl} Take 2 Univers (SENOKOT) 11-18 tablets by ity of 8.6 mg 14:01: 00:00 mouth [place] tablet 14 :00 twice MD daily. To [place] prevent n constipati Cancer on Center (stimulant ). Buy over the counter. senna 2021- No 2{tbl} Take 2 Univers (SENOKOT) 11-18- tablets by ity of 8.6 mg 14:01: 00:00 mouth [place] tablet 14 :00 twice MD daily. To [place] prevent n constipati Cancer on Center (stimulant ). Buy over the counter. 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 For Anderso lesion of lung n urinary infection Cancer organ Center INV-(2021- No Personal 1200mg Take 8 Univers 415) IK-175 11-18 10-11 history of tablets ity of (KYN-175) 00:00: 16:51 malignant (1,200 mg) [place] 150 mg 00 :38 neoplasm of by mouth MD tablet bladder daily. [place] Take n within 30 Cancer minutes of Center consuming a meal. The dose should be taken at approximat flaquito the same time each day. levoFLOXaci 2021- No Primary 750mg Take 1 Univers n 11-18 10-11 urothelial tablet ity of (Levaquin) 00:00: 00:00 carcinoma (750 mg) [place] 750 mg 00 :00 of by mouth MD tablet overlapping daily. For [place] lesion of lung n urinary infection Cancer organ Center INV-(2021- No Personal 1200mg Take 8 [facility] 415) IK-175 11-18 10-11 history of tablets ity of (KYN-175) 00:00: [...] 12 [place] (twelve) n hours. Cancer Center methadone 2021- Cancer 5mg Take 1 Uni vers (DOLOPHINE) 10-24 associated tablet (5 ity of 5 mg tablet 00:00: 00:00 pain mg) by [place] 00 :00 mouth MD every 12 [place] (twelve) n hours. Cancer Center prochlorper 2022- No Personal 10mg Take 1 Univers azine 10-21 history of tablet (10 i ty of (Compazine) 00:00: 00:00 malignant mg) by [place] 10 mg 00 :00 neoplasm of mouth MD tablet bladder every 8 [place] (eight) n hours as Cancer needed for Center nausea or vomiting. prochlorper Personal 10mg Take 1 [facility] azine 10-21 history of tablet (10 i ty of (Compazine) 00:00: 00:00 malignant mg) by [place] 10 mg 00 :00 neoplasm of mouth MD tablet bladder every 8 [place] (eight) n hours as Cancer needed for Center nausea or vomiting. INV-( No Personal 1200mg Take 8 Univers 415) IK-175 10-21 history of tablets ity of (KYN-175) 00:00: 19:06 malignant (1,200 mg) [place] 150 mg 00 :30 neoplasm of by mouth MD tablet bladder daily. [place] Take n within 30 Cancer minutes of Center consuming a meal. The dose should be taken at approximat flaquito the same time each day. INV-(2021- No Personal 1200mg Take 8 Univers [...] 12 [place] (twelve) n hours. Cancer Center methadone Cancer 5mg Take 1 Uni vers (DOLOPHINE) 10-20 associated tablet (5 ity of 5 mg tablet 00:00: 00:00 pain mg) by [place] 00 :00 mouth MD every 12 [place] (twelve) n hours. Cancer Center propranoloL 2021- No Poliomyelom TAKE 1 Univers (INDERAL) 10-09 alacia TABLET BY it y of 60 mg 00:00: 00:00 MOUTH [place] tablet 00 :00 TWICE A MD DAY EVERY [place] DAY TO n PREVENT Cancer TREMORS Center HOLD IF SYSTOLIC BP LESS THAN 110 propranoloL 2021- No Poliomyelom TAKE 1 Univers (INDERAL) 10-09 alacia [...] (Align) 4 47 :00 daily. GI MD [facility] Bifidobacte 2021- No 1{capsu Take 1 Univers rium 09-23 le} capsule by ity of infantis 10:17: 00:00 mouth [place] (Align) 4 47 :00 daily. GI MD mg [facility] loperamide 2021- No Personal 2mg Take 2 Univers (IMODIUM) 2 [...] should be taken in any 24-hour period. loperamide 2021- No Personal 2mg Take 2 Univers (IMODIUM) 2 09-23 history of capsules ity of mg capsule 00:00: 00:00 malignant (4 mg) 00 :00 neoplasm of after the MD bladder first [place]o loose n bowel Cancer movement, Center and 1 capsule (2 mg) after each loose bowel movement after the first dose has been taken. No more than 8 mg (4 capsules) should be taken in any 24-hour period. prochlorper 2021- No Personal 10mg Take 1 [facility] azine 7-19 08-16 history of tablet (10 i ty of [...] approximat flaquito the same time each day. prochlorper Personal 10mg Take 1 Univers azine 09-23 [...] 00:00: 00:00 pain mg) [place] 2 mg tablet 00 :00 mouth MD every 4 [place] (four) n hours as Cancer needed Center (pain). HYDROmorpho 2021- No Cancer 2mg Take 1 U nivers ne 09-22 associated tablet (2 ity of (Dilaudid) 00:00: 00:00 pain mg) by [place] 2 mg tablet 00 :00 mouth MD every 4 [place] (four) n hours as Cancer needed Center (pain). methadone 2021- No Cancer 5mg Take 1 Uni vers (DOLOPHINE) 09-22-15 associated tablet (5 ity of 5 mg tablet 00:00: 00:00 pain mg) by [place] 00 :00 mouth MD every 12 [place] (twelve) n hours. Cancer Center methadone 2021- No Cancer 5mg Take 1 Uni vers (DOLOPHINE) 09-22 associated tablet (5 ity of 5 mg tablet 00:00: 00:00 pain mg) by [place] kh[place] 00 :00 mouth MD every 12 [place] (twelve) n hours. Cancer Center HYDROmorpho 2021-2021- No Cancer 2mg Take 1 U nivers ne 09-12 associated tablet (2 ity of (Dilaudid) 00:00: 00:00 pain mg) by [place] hernandez 2 mg tablet 00 :00 mouth MD every 4 [place] (four) n hours as Cancer needed Center (pain). HYDROmorpho 2021- No Cancer 2mg Take 1 U nivers ne 09-12 associated tablet (2 ity of (Dilaudid) 00:00: 00:00 pain mg) by [place] hernandez 2 mg tablet 00 :00 mouth MD every 4 [place] (four) n hours as Cancer needed Center (pain). methadone 2021-2021- No Cancer 2.5mg Take 0.5 Univers (DOLOPHINE) 08-29 associated tablets ity of 5 mg tablet 00:00: 00:00 pain (2.5 mg) [place] 00 :00 by mouth MD every 12 [facility] (twelve) n hours. Cancer Center methadone 2021- No Cancer 2.5mg Take 0.5 Univers (DOLOPHINE) 08-29 associated tablets ity of 5 mg tablet 00:00: 00:00 pain (2.5 mg) [place] 00 :00 by mouth MD every 12 Anders[facility] (twelve) n hours. Cancer Center gabapentin 2021- No Neuropathy, 300 mg Univers (NEURONTIN) 08-27-16 not twice ity of 300 mg 00:00: 00:00 otherwise daily x 1 [place] capsule 00 :00 specified week 300 MD mg nightly [place] x 2 weeks n Then stop Cancer Center mirtazapine 2021- Insomnia 15mg Take 1 Univers (REMERON) 08-27 due to tablet (15 i ty of 15 mg 00:00: 00:00 medical mg) by [place] tablet 00 :00 condition mouth at MD bedtime. [facility] n Cancer Center gabapentin No Neuropathy, 300 mg Univers (NEURONTIN) 08-27 not twice ity of 300 mg 00:00: 00:00 otherwise daily x 1 [place] capsule 00 :00 specified week 300 MD mg nightly [place] x 2 weeks n Then stop Cancer [place] mirtazapine No Insomnia 15mg Take 1 Univers (REMERON) 08-27 due to tablet (15 i ty of 15 mg 00:00: 00:00 medical mg) by [place] tablet 00 :00 condition mouth at MD bedtime. [facility] n Cancer [place] HYDROmorpho 2021- No Cancer 2mg Take 1 U nivers ne 08-27 associated tablet (2 ity of (Dilaudid) 00:00: 00:00 pain mg) by [place] 2 mg tablet 00 :00 mouth MD every 4 [place] (four) n hours as Cancer needed Center (pain). HYDROmorpho 2021- No Cancer 2mg Take 1 U nivers ne 08-27 associated tablet (2 ity of (Dilaudid) 00:00: 00:00 pain mg) [place] 2 mg tablet 00 :00 mouth MD every 4 [place] (four) n hours as Cancer needed Center (pain). methadone 2021- No Cancer 2.5mg Take 0.5 Univers (DOLOPHINE) 08-27 associated tablets ity of 5 mg tablet 00:00: 00:00 pain (2.5 mg) [place] 00 :00 by mouth MD every 12 Anders[facility] (twelve) n hours. Cancer Center methadone 2021- No Cancer 2.5mg Take 0.5 Univers (DOLOPHINE) 08-27 associated tablets ity of 5 mg tablet 00:00: 00:00 pain (2.5 mg) [place] 00 :00 by mouth MD every 12 Anders[facility] (twelve) n hours. Cancer Center HYDROcodone 2021-0 2021- No Neuropathy, 1{tbl} Take 1 Univers -acetaminop 6-16 06-22 not tablet by it y of hen (NORCO) 00:00: 00:00 otherwise mouth [place] 10 mg-325 00 :00 specified every 6 MD mg per (six) Anderso tablet hours as n needed for Cancer moderate Center pain or severe pain. HYDROcodone 2021-0 2021- No Neuropathy, 1{tbl} Take 1 Univers -acetaminop 6-16 06-22 not tablet by it y of hen (NORCO) 00:00: 00:00 otherwise mouth [place] 10 mg-325 00 :00 specified every 6 MD mg per (six) Anderso tablet hours as n needed for Cancer moderate Center pain or severe pain. HYDROcodone 2021-0 2021- No Neuropathy, 1{tbl} Take 1 Univers -acetaminop 5-26 06-16 not tablet by it y of hen (NORCO) 00:00: 00:00 otherwise mouth [place] 10 mg-325 00 :00 specified every 6 MD mg per (six) Anderso tablet hours as n needed for Cancer moderate Center pain or severe pain. HYDROcodone 2021-0 2021- No Neuropathy, 1{tbl} Take 1 Univers -acetaminop 5-26 06-16 not tablet by it y of hen (NORCO) 00:00: 00:00 otherwise mouth [place] 10 mg-325 00 :00 specified every 6 MD mg per (six) Anderso tablet hours as n needed for Cancer moderate Center pain or severe pain. HYDROcodone 2021-0 2021- No Neuropathy, 1{tbl} Take 1 Univers -acetaminop 5-05 05-26 not tablet by it y of hen (NORCO) 00:00: 00:00 otherwise mouth [place] 10 mg-325 00 :00 specified every 6 MD mg per (six) Anderso tablet hours as n needed for Cancer moderate Center pain or severe pain. HYDROcodone 2021-0 2021- No Neuropathy, 1{tbl} Take 1 Univers -acetaminop 5-05 05-26 not tablet by it y of hen (NORCO) 00:00: 00:00 otherwise mouth [place] 10 mg-325 00 :00 specified every 6 MD mg per (six) Anderso tablet hours as n needed for Cancer moderate Center pain or severe pain. HYDROcodone 2021- No Neuropathy, 1{tbl} Take 1 Univers -acetaminop 07-02- not tablet by it y of hen (NORCO) 00:00: 00:00 otherwise mouth [place] 10 mg-325 00 :00 specified every 6 MD mg per (six) Anderso tablet hours as n needed for Cancer moderate Center pain or severe pain. HYDROcodone 2021- No Neuropathy, 1{tbl} Take 1 Univers -acetaminop 07-02- not tablet by it y of hen [...] [place] mg tablet 00 :00 mouth See Admin Andjuan luis Instructio n ns. Take Cancer before Center dinner to help bowels move and prevent nausea, may increase appetite metoclopram 2021- No Early 10mg Take 2 Un tish rodri 06-18 satiety tablets ity of (Reglan) 5 00:00: 00:00 (10 mg) by [place] mg tablet 00 :00 mouth See Admin Candie Instructio n ns. Take Cancer before Center dinner to help bowels move and prevent nausea, may increase appetite ciprofloxac 2021- No Urinary 500mg Take 1 Univers in HCl 06-18 tract tablet ity of (CIPRO) 500 00:00: 04:59 infection (500 mg) [place] mg tablet 00 :00 by mouth MD ortega Andjuan luis daily for n 14 days. Cancer For Center infection as per ID consultati on, dose adjusted for kidney dysfunctio n ciprofloxac 2021- No Urinary 500mg Take 1 [facility] in HCl 06-18 tract tablet ity of (CIPRO) 500 00:00: 04:59 infection (500 mg) [place] mg tablet 00 :00 by mouth MD twice Anderso daily for n 14 days. Cancer For Center infection as per ID consultati on, dose adjusted for kidney dysfunctio n metoclopram 2021- No Early 10mg Take 2 Un tish rodri 13 13 satiety tablets ity of (Reglan) 5 00:00: [...] MD bedtime. [place] n Cancer Center gabapentin 2021- No Neuropathy, 300mg Take 1 Univers (NEURONTIN) [...] 00 :00 condition mouth at MD bedtime. [facility] Cancer Center metoclopram 2021- No Early 5mg Take 1 Un tish rodri 05-0513 satiety tablet (5 ity of (Reglan) 5 00:00: 00:00 mg) [place] mg tablet 00 :00 mouth 3 MD (three) Anderso times a n day before Cancer meals. Center HYDROcodone 2021- No Neuropathy, 1{tbl} Take 1 Univers -acetaminop 05-05 not tablet by it y of hen (NORCO) 00:00: 00:00 otherwise mouth [place] 10 mg-325 00 :00 specified every 6 MD mg per (six) Anderso tablet hours as n needed for Cancer moderate Center pain or severe pain. propranoloL Poliomyelom TAKE 1 Univers (INDERAL) 03-27 alacia TABLET BY it y of 60 mg 00:00: 21:33 MOUTH [place] tablet 00 :38 TWICE A MD DAY EVERY [place] DAY TO n PREVENT Cancer TREMORS Center HOLD IF SYSTOLIC BP LESS THAAN 110 propranoloL 2021- No Poliomyelom TAKE 1 Univers [...] 00 :00 condition mouth at MD bedtime. [facility] Center HYDROcodone 2020-03- No Chronic 1{tbl} [...] Cancer Center lidocaine-p Yes Encounter APPLY TO [facility] rilocaine 2-27 for PORT-A-CAT ity of (EMLA) 00:00: adjustment H AREA 30 [place] 2.5-2.5% 00 and TO 45 MD cream management MINUTES Vern so of vascular PRIOR TO n access PORT Cancer device ACCESS Center DIRECTED (TOPICAL ANESTHETIC ). lidocaine-p 2022- No Encounter APPLY TO [facility] rilocaine 2-27 03-15 for PORT-A-CAT ity of (EMLA) 00:00: 00:00 adjustment H AREA 30 [place] 2.5-2.5% 00 :00 and TO 45 MD cream management MINUTES Vern so of vascular PRIOR TO n access PORT Cancer device ACCESS Center DIRECTED (TOPICAL ANESTHETIC ). polyethylen Yes Personal 17g Take 17 g Univers e glycol 2-05 history of by mouth i ty of (MIRALAX) 00:00: malignant daily. [place] 17 g packet 00 neoplasm of Constipati MD bladder on. Anderso Available n over the Cancer counter. Center Hold for diarrhea/l oose stools. polyethylen Yes Personal 17g Take 17 g Univers e glycol 2-05 history of by mouth i ty of (MIRALAX) 00:00: malignant daily. [place] 17 g packet 00 neoplasm of Constipati MD bladder on. Anderso Available n over the Cancer counter. Center Hold for diarrhea/l oose stools. propranoloL 2020-0 Yes 40mg [id number] Take [address] [facility] (INDERAL) 8 [id number] by mouth 3 [facility] 40 MG 14:38: 3D (three) Medical tablet 07 times Center daily. lisinopriL 2020-0 Yes 20mg QD Take [address] (PRINIVIL,Z 8 by mouth Luke s ESTRIL) 20 14:38: daily. Medic al MG tablet 07 Center finasteride 2019-0 Yes 5mg QD Take [address] (PROSCAR) 5 8-31 by mouth Luke s mg tablet 14:38: daily. Medica l 07 Center tamsulosin 2020-0 Yes .4mg QD Take 0.[address] [facility] (FLOMAX) 8-31 mg by [facility] 0.4 mg Cap 14:38: mouth Medica l 24 hr 07 daily. Center capsule polyethylen 2020-0 Yes 17g Take [address] e glycol 8-31 by mouth [facility] (GLYCOLAX) 00:00: daily as Med ical 17 gram 00 needed Center packet (for constipati on). polyethylen 2020-0 Yes 17g Take [address] e glycol 8-31 by mouth [facility] (GLYCOLAX) 00:00: daily as Med ical 17 gram 00 needed Center packet (for constipati on). tamsulosin 2020-0 Yes .4mg Take 1 Unive rs (FLOMAX) 7-01 capsule ity of 0.4 mg 24 00:00: (0.4 mg[place] capsule 00 by mouth [place] daily. [facility] Urinary n [facility] tamsulosin 2020-0 Yes .4mg Take 1 [facility] (FLOMAX) 7-01 capsule ity of 0.4 mg 24 00:00: (0.4 mg[place] capsule 00 by mouth [place] daily. [facility] Urinary n [facility] Immunizations Ordered Filled Immunization Date Status Comments [facility] e Immunization Name Name Pfizer SARS-CoV-2 2020-12-15 Completed Univer sity of Vaccination (Purple 00:00:00 [facility] [place] Pfizer SARS-CoV-2 2020-12-15 Completed Univer sity of Vaccination (Purple 00:00:00 [facility] [place] Pfizer SARS-CoV-2 2020-05-05 Completed Univer sity of Vaccination (Purple 00:00:00 [facility] [place] Pfizer SARS-CoV-2 2020-05-05 Completed Univer sity of Vaccination (Purple 00:00:00 [facility] [place] Pfizer SARS-CoV-2 2020-04-06 Completed Univer sity of Vaccination (Purple 00:00:00 [facility] [place] Pfizer SARS-CoV-2 2020-04-06 Completed Univer sity of Vaccination (Purple 00:00:00 [facility] [place] Vital Signs Vital Name Observation Time Observation Value Comments Source HEIGHT 2019-11-01 00:00:00 175.3 cm WEIGHT 2019-11-01 00:00:00 90.719 kg WEIGHT 2022-05-05 05:44:00 77.8 kg HEIGHT 2022-05-01 22:00:00 175.3 cm WEIGHT 2022-05-01 19:30:00 77.565 kg WEIGHT 2022-05-05 05:44:00 77.8 kg HEIGHT 2022-05-01 22:00:00 175.3 cm WEIGHT 2022-05-01 19:30:00 77.565 kg WEIGHT 2022-05-05 05:44:00 77.8 kg HEIGHT 2022-05-01 22:00:00 175.3 cm WEIGHT 2022-05-01 19:30:00 77.565 kg WEIGHT 2020-08-13 11:08:46 69.9 kg HEIGHT [...] WEIGHT 2019-11-01 00:00:00 90.719 kg Systolic blood 2022-06-19 16:51:50 102 mm[Hg] Univer sity of pressure [facility] Diastolic blood 2022-06-19 16:51:50 62 mm[Hg] Unive rsity of pressure [facility] Heart rate 2022-06-19 16:51:50 91 /min [facility] Body temperature 2022-06-19 16:51:50 36.22 Svetlana [facility] ers[facility] Respiratory rate 2022-06-19 16:51:50 18 /min Univ ersity [facility] Oxygen saturation in 2022-06-19 16:51:50 96 /min University Arterial blood by Soraya tay Pulse oximetry [facility] Body weight 2022-06-19 16:42:00 67.586 kg [facility] BMI 2022-06-19 16:42:00 21.99 kg/m2 [facility] [place] [facility] Heart rate 2022-05-07 08:42:00 107 /min [facility] Respiratory rate 2022-05-07 08:42:00 19 /min [facility] Oxygen saturation in 2022-05-07 08:42:00 94 /min [facility] Arterial blood by [facility] Pulse oximetry Systolic blood 2022-05-07 08:30:00 154 mm[Hg] [facility] Diastolic blood 2022-05-07 08:30:00 75 mm[Hg] [facility] Body temperature 2022-05-07 08:30:00 36.83 Svetlana [facility] Body weight 2022-05-05 05:44:00 77.8 kg [facility] BMI 2022-05-05 05:44:00 25.33 kg/m2 [facility] Body height 2022-05-01 22:00:00 175.3 cm [facility] Systolic blood 2022-04-29 19:51:00 104 mm[Hg] Univer sity of pressure [facility] Diastolic blood 2022-04-29 19:51:00 66 mm[Hg] Unive rsity of pressure [facility] Heart rate 2022-04-29 19:51:00 89 /min [facility] Body temperature 2022-04-29 19:51:00 36.39 Svetlana [facility] Respiratory rate 2022-04-29 19:51:00 16 /min Univ ersity [facility] Oxygen saturation in 2022-04-24 18:49:41 97 /min University Arterial blood by Soraya tay Pulse oximetry [facility] Body weight 2022-04-18 19:58:06 74 kg [facility] MD [facility] BMI 2022-04-18 19:58:06 24.08 kg/m2 [facility] MD [facility] Body height 2022-04-17 16:28:00 175.3 cm [facility] MD [facility] Systolic (mm Hg) 2018-10-20 16:08:00 Justo Mosher Diastolic (mm Hg) 2018-10-20 16:08:00 Mem sa[facility] Weight 2018-10-20 16:08:00 [facility] Height 2018-09-07 19:08:00 [facility] Procedures Procedure Date / Time Performing Source Performed Clinician COMPREHENSIVE METABOLIC PANEL 2022-06-18 [facility] 19:48:43 [facility] COMPLETE BLOOD COUNT W/ 2022-06-18 [facility] DIFFERENTIAL 19:48:43 [facility] THYROID STIMULATING HORMONE 2022-06-18 [facility] 19:48:43 [facility] FREE THYROXINE 2022-06-18 [facility] 19:48:43 [facility] GLUCOSE LEVEL 2022-06-18 [facility] xa 19:48:43 [facility] BLOOD UREA NITROGEN 2022-06-18 [facility] 19:48:43 [facility] ELECTROLYTE PANEL 2022-06-18 [facility] 19:48:43 [facility] SERUM CREATININE 2022-06-18 [facility]as 19:48:43 [facility] .GLOMERULAR FILTRATION RATE 2022-06-18 [facility] 19:48:43 [facility] CALCIUM LEVEL TOTAL 2022-06-18 [facility] 19:48:43 [facility] ALBUMIN LEVEL 2022-06-18 [facility] 19:48:43 [facility] ALKALINE PHOSPHATASE 2022-06-18 [facility] 19:48:43 [facility] ALANINE AMINOTRANSFERASE 2022-06-18 [facility] 19:48:43 [facility] ASPARTATE AMINOTRANSFERASE 2022-06-18 [facility] 19:48:43 [facility] TOTAL PROTEIN 2022-06-18 [facility] 19:48:43 [facility] FRACTIONATED BILIRUBIN 2022-06-18 [facility] 19:48:43 [facility] Results CBC 2022-06-18 [facility] xa 19:48:43 [facility] MANUAL DIFFERENTIAL 2022-06-18 [facility] 19:48:[address] [facility] [address] CHEST ABDOMEN PELVIS W 2022-06-18 [facility] CONTRAST 19:35:00 [facility] POC CREATININE 2022-06-18 [facility] 18:21:00 [facility] IR NEPHROSTOMY EXCHANGE 60 2022-06-12 Christophe Garcia [facility] 20:40:48 Sakshi MATHEW [facility] COMPREHENSIVE METABOLIC PANEL 2022-06-05 Joan Vaughn [facility] 16:30:00 [facility] COMPLETE BLOOD COUNT W/ 2022-06-05 Joan Vaughn [facility] DIFFERENTIAL 16:30:00 [facility] FREE THYROXINE 2022-06-05 Roderick [facility] 16:30:00 [facility] THYROID STIMULATING HORMONE 2022-06-05 Joan Vaughn [facility] 16:30:00 [facility] GLUCOSE LEVEL 2022-06-05 Roderick [facility] 16:30:00 [facility] BLOOD UREA NITROGEN 2022-06-05 Joan Vaughn [facility] [place] 16:30:00 [facility] ELECTROLYTE PANEL 2022-06-05 Alhalabi, [facility] 16:30:00 [facility] SERUM CREATININE 2022-06-05 [facility] [place] 16:30:00 [facility] .GLOMERULAR FILTRATION RATE 2022-06-05 Roderick [facility] 16:30:00 [facility] CALCIUM LEVEL TOTAL 2022-06-05 Roderick [facility] 16:30:00 [facility] ALBUMIN LEVEL 2022-06-05 [facility] 16:30:00 [facility] ALKALINE PHOSPHATASE 2022-06-05 Roderick [facility] 16:30:00 [facility] ALANINE AMINOTRANSFERASE 2022-06-05 Roderick [facility] 16:30:00 [facility] ASPARTATE AMINOTRANSFERASE 2022-06-05 Roderick [facility] 16:30:00 [facility] TOTAL PROTEIN 2022-06-05 [facility] 16:30:00 [facility] FRACTIONATED BILIRUBIN 2022-06-05 [facility] 16:30:00 [facility] Results CBC 2022-06-05 [facility] 16:30:00 [facility] MANUAL DIFFERENTIAL 2022-06-05 Roderick [facility] 16:30:00 [facility] COMPREHENSIVE METABOLIC PANEL 2022-05-29 Roderick Joan [facility] 17:17:00 [facility] COMPLETE BLOOD COUNT W/ 2022-05-29 R[facility]ick [facility] DIFFERENTIAL 17:17:00 [facility] FREE THYROXINE 2022-05-29 [facility] 17:17:00 [facility] THYROID STIMULATING HORMONE 2022-05-29 [facility] 17:17:00 [facility] GLUCOSE LEVEL 2022-05-29 [facility] 17:17:00 [facility] BLOOD UREA NITROGEN 2022-05-29 [facility] 17:17:00 [facility] ELECTROLYTE PANEL 2022-05-29 [facility] 17:17:00 [facility] SERUM CREATININE 2022-05-29 [facility] 17:17[facility]00 [facility] .GLOMERULAR FILTRATION RATE 2022-05-29 [facility] 17:17:00 [facility] CALCIUM LEVEL TOTAL 2022-05-29 [facility] 17:17:00 [facility] ALBUMIN LEVEL 2022-05-29 [facility] 17:17[facility]00 [facility] ALKALINE PHOSPHATASE 2022-05-29 [facility] 17:17:00 [facility] ALANINE AMINOTRANSFERASE 2022-05-29 [facility] 17:17:00 [facility] ASPARTATE AMINOTRANSFERASE 2022-05-29 [facility] 17:17:00 [facility] TOTAL PROTEIN 2022-05-29 [facility] 17:17:00 [facility] FRACTIONATED BILIRUBIN 2022-05-29 [facility] 17:17:00 [facility] Results CBC 2022-05-29 [facility] 17:17:00 [facility] MANUAL DIFFERENTIAL 2022-05-29 [facility] 17:17:00 [facility] COMPREHENSIVE METABOLIC PANEL 2022-05-19 [facility] 16:55:00 [facility] COMPLETE BLOOD COUNT W/ 2022-05-19 Delvis [facility] DIFFERENTIAL 16:55:00 [facility] FREE THYROXINE 2022-05-19 [facility] 16:55:00 [facility] THYROID STIMULATING HORMONE 2022[facility]05-19 [facility] 16:[facility]00 [facility] GLUCOSE LEVEL 2022-05-19 [facility] x[facility] 16:55:00 [facility] BLOOD UREA NITROGEN 2022-05-19 [facility] 16:55:00 [facility] ELECTROLYTE PANEL 2022-05-19 [facility] 16:55:00 [facility] SERUM CREATININE 2022-05-19 [facility] exas 16:55:00 [facility] .GLOMERULAR FILTRATION RATE 2022-05-19 [facility] 16:55:00 [facility] CALCIUM LEVEL TOTAL 2022-05-19 [facility] 16:55:00 [facility] ALBUMIN LEVEL 2022-05-19 [facility] 16:55:00 [facility] ALKALINE PHOSPHATASE 2022-05-19 [facility] 16:55:00 [facility] ALANINE AMINOTRANSFERASE 2022-05-19 [facility] 16:55:00 [facility] ASPARTATE AMINOTRANSFERASE 2022-05-19 [facility] 16:55:00 [facility] TOTAL PROTEIN 2022-05-19 [facility] 16:55:00 [facility] FRACTIONATED BILIRUBIN 2022-05-19 [facility] 16:55:00 [facility] Results CBC 2022-05-19 [facility] 16:55:00 [facility] MANUAL DIFFERENTIAL 2022-05-19 [facility] 16:55:00 [facility] BASIC METABOLIC PANEL 2022-05-07 Joe Fuentes In [facility] 04[facility]00 [facility] CBC (HEMOGRAM ONLY) 2022-05-07 Joe Fuentes In [facility] 04:19:00 [facility] MAGNESIUM 2022-05-07 Alfredo Sung In [facility] 04:19:00 [facility] VANCOMYCIN LEVEL, TROUGH 2022-05-06 Jocelin aHn [facility] 13:29:00 [facility] Center CBC (HEMOGRAM ONLY) 2022-05-05 Nancy-Zoë, Sung In [facility] 04:09:00 [facility] MAGNESIUM 2022-05-05 Nancy-Zoë, Sung In [facility] 04:09:00 [facility] PREPARE LEUKO-REDUCED RBC 2022-05-04 Nancy-Zoë, [facility]ung [facility] 23[facility]54:00 [facility] URINE CULTURE 2022-05-04 Nancy-Zoë, Sung In [facility] 08:37:00 [facility] URINALYSIS W/ REFLEX URINE 2022-05-04 Nancy-Zoë, Sung In [facility] CULTURE 08:37:00 H [facility] Center CBC (HEMOGRAM ONLY) 2022-05-04 Nancy-Zoë, Sung In [facility] 06:17:00 H [facility] Center MAGNESIUM 2022-05-04 Nancy-Zoë, Sung In [facility] 04:52:00 [facility] PHOSPHORUS 2022-05-04 Nancy-Zoë, Sung In [facility] 04:52:00 [facility] URINE CULTURE 2022-05-03 Nancy-Zoë, Sung In [facility] 18:40:00 [facility] URINALYSIS W/ REFLEX URINE 2022-05-03 Nancy-Zoë, Sung [facility] CULT[facility] 18:40:00 H [facility] Center TRANSFUSE LEUKO-REDUCED RED 2022-05-03 Nancy-Zoë, Sung In [facility] BLOOD CELLS 14:56:00 H [facility] Center VANCOMYCIN LEVEL, TROUGH 2022-05-03 Michael Sparks [facility] 11:06:00 Medical Center TYPE AND SCREEN, AUTOMATED 2022-05-03 Nancy-Zoë, Sung [facility] 11:06:00 H [facility] Center BLOOD CULTURE 2022-05-03 Nancy-Zoë, Sung In [facility] 11:05:00 H [facility] Center BLOOD CULTURE 2022-05-03 Nancy-Zoë, Sung In [facility] 11:00:00 [facility] CBC W/PLT COUNT & AUTO 2022-05-03 Rick Kay [facility] DIFFERENTIAL 05:52:00 [facility] CBC W/PLT COUNT & AUTO 2022-05-[address] [facility] DIFFERENTIAL 05:52:00 [facility] STREP PNEUMONIAE ANTIGEN 2022-05-[address] [facility] 14[facility]13:00 [facility] POCT-GLUCOSE METER 2022-05-[address] [facility] 12:51:00 [facility] POCT-GLUCOSE METER 2022-05-[address] [facility] 08:49:00 [facility] CBC W/PLT COUNT & AUTO 2022-05-[address] [facility] DIFFERENTIAL 04:14:00 [facility] TSH/FREE T4 IF INDICATED 2022-05-[address] [facility] 04:14:00 [facility] HIGH SENSITIVITY TROPONIN I 2022-05-[address] [facility] 04:14:00 [facility] BASIC METABOLIC PANEL 2022-05-[address] [facility] 04:14:00 [facility] VITAMIN B12 2022-05-[address] [facility] 04:14:00 [facility] RETICULOCYTE COUNT 2022-05-[address] [facility] 04:14:00 [facility] CBC W/PLT COUNT & AUTO 2022-05-[address] [facility] DIFFERENTIAL 04:14:00 [facility] BLOOD CULTURE 2022-05-[address] [facility] 04:12:00 [facility] BLOOD CULTURE IDENTIFICATION 2022-05-[address] [facility] PANEL 04:12:00 [facility] CTA CHEST FOR PULMONARY 2022-05-[address] [facility] EMBOLUS 22:44:00 [facility] SPUTUM CULTURE + GRAM STAIN 2022-05-[address] [facility] 21:23:00 [facility] MRSA SCREEN 2022-05-[address] [facility] 21:23:00 [facility] RESPIRATORY PANEL 2022-05-01 Merchant, Rick [facility] 21:23:00 [facility] COMPREHENSIVE METABOLIC PANEL 2022-05-01 Merchant, Rick [facility] 21:10:00 [facility] MAGNESIUM 2022-05-01 Merchant, Rick [facility] 21:10:00 [facility] PHOSPHORUS 2022-05-01 Merchant, Rick [facility] 21:10:00 [facility] LACTIC ACID, VENOUS 2022-05-01 Merchant, Rick [facility] 21:10:00 [facility] BLOOD GAS, VENOUS 2022-05-01 Merchant, Rick [facility] 21:10:00 [facility] CBC W/PLT COUNT & AUTO 2022-05-01 Merchant, Rick [facility] DIFFERENTIAL 21:10:00 [facility] PROTHROMBIN TIME/INR 2022-05-01 Merchant, Rick [facility] 21:10:00 [facility] FIBRINOGEN 2022-05-01 Merchant, Rick [facility] 21:10:00 [facility] B-TYPE NATRIURETIC FACTOR 2022-05-01 Merchant, Rick [facility] (BNP[facility] 21:10:00 [facility] HIGH SENSITIVITY TROPONIN I 2022-05-[facility] 21:10:00 [facility] CBC W/PLT COUNT & AUTO 2022-05-[facility] DIFFERENTIAL 21:10:00 [facility] XR CHEST 1 VIEW PORTABLE / 2022-05-01 [facility] BED[facility] 20:42:00 [facility] EKG-SCANNED 2022-05-01 Provider, Flora [facility] 00:00:[address] [facility] COMPREHENSIVE METABOLIC PANEL 2022-04-24 Carina Queen [facility] 18:32:00 [facility] COMPLETE BLOOD COUNT W/ 2022-04-24 Carina Queen [facility] DIFFERENTIAL 18:32:00 [facility] FREE THYROXINE 2022-04-24 Carina Queen [facility] xas 18:32:00 [facility] THYROID STIMULATING HORMONE 2022-04-24 [facility] 18:32:00 [facility] GLUCOSE LEVEL 2022-04-24 [facility] 18:32:00 [facility] BLOOD UREA NITROGEN 2022-04-24 [facility] 18:32:00 [facility] ELECTROLYTE PANEL 2022-04-24 [facility] 18:32:00 [facility] SERUM CREATININE 2022-04-24 [facility] exas 18:32:00 [facility] .GLOMERULAR FILTRATION RATE 2022-04-24 [facility] 18:32:00 [facility] CALCIUM LEVEL TOTAL 2022-04-24 [facility] 18:32:00 [facility] ALBUMIN LEVEL 2022-04-24 [facility] 18:32:00 [facility] ALKALINE PHOSPHATASE 2022-04-24 [facility] 18:32:00 [facility] ALANINE AMINOTRANSFERASE 2022-04-24 [facility] 18:32:00 [facility] ASPARTATE AMINOTRANSFERASE 2022-04-24 [facility] 18:32:00 [facility] TOTAL PROTEIN 2022-04-24 [facility] 18:32:00 [facility] FRACTIONATED BILIRUBIN 2022-04-24 [facility] 18:32:00 [facility] Results CBC 2022-04-24 [facility] 18:32:00 [facility] MANUAL DIFFERENTIAL 2022-04-24 [facility] 18:32:00 [facility] COMPREHENSIVE METABOLIC PANEL 2022-04-17 [facility] 16:09[facility]00 [facility] COMPLETE BLOOD COUNT W/ 2022-04-17 Delvis [facility] DIFFERENTIAL 16:09:00 [facility] FREE THYROXINE 2022-04-17 [facility] 16:09:00 [facility] THYROID STIMULATING HORMONE 2022-04-17 [facility] 16:09:00 [facility] GLUCOSE LEVEL 2022-04-17 [facility] 16:09:00 [facility] BLOOD UREA NITROGEN 2022-04-17 [facility] 16:09:00 [facility] ELECTROLYTE PANEL 2022-04-17 [facility] 16:09:00 [facility] SERUM CREATININE 2022-04-17 [facility] exas 16:09:00 [facility] .GLOMERULAR FILTRATION RATE 2022-04-17 [facility] 16:09:00 [facility] CALCIUM LEVEL TOTAL 2022-04-17 [facility] 16:09:00 [facility] ALBUMIN LEVEL 2022-04-17 [facility] 16:09:00 [facility] ALKALINE PHOSPHATASE 2022-04-17 [facility] 16:09:00 [facility] ALANINE AMINOTRANSFERASE 2022-04-17 [facility] 16:09:00 [facility] ASPARTATE AMINOTRANSFERASE 2022-04-17 [facility] 16:09:00 [facility] TOTAL PROTEIN 2022-04-17 [facility] 16:09:00 [facility] FRACTIONATED BILIRUBIN 2022-04-17 [facility] 16:09:00 [facility] Results CBC 2022-04-17 [facility] 16:09:00 [facility] MANUAL DIFFERENTIAL 2022-04-17 [facility] 16:09:00 [facility] QIA SERVICES 2022-04-15 [facility] 20:22:16 [facility] GENERAL LABORATORY ADD ON 2022-04-14 Joan Vaughn [facility] TEST 21:27:00 [facility] URINALYSIS WITH MICROSCOPIC 2022-04-14 Roderick [facility] IF INDICATED 19:07:10 [facility] URINALYSIS MICROSCOPIC EXAM 2022-04-14 [facility] 19:07:10 [facility] COMPLETE BLOOD COUNT W/ 2022-04-14 R[facility]ick [facility] DIFFERENTIAL 19:04:29 [facility] COMPREHENSIVE METABOLIC PANEL 2022-04-14 Roderick Joan [facility] 19:04:29 [facility] LIPID PANEL 2022-04-14 [facility] 19:04:29 [facility] PROTHROMBIN TIME 2022-04-14 [facility] [place] 19:04:29 [facility] APTT 2022-04-14 [facility] [place] 19:04:29 [facility] Results CBC 2022-04-14 [facility] [place] 19:04:29 [facility] MANUAL DIFFERENTIAL 2022-04-14 [facility] [place] 19:04:29 [facility] GLUCOSE LEVEL 2022-04-14 [facility] [place] 19:04:29 [facility] BLOOD UREA NITROGEN 2022-04-14 [facility] [place] 19:04:29 [facility] ELECTROLYTE PANEL 2022-04-14 [facility] 19:04:29 [facility] SERUM CREATININE 2022-04-14 [facility] [place] 19:04:29 [facility] .GLOMERULAR FILTRATION RATE 2022-04-14 [facility] 19:04:29 [facility] CALCIUM LEVEL TOTAL 2022-04-14 [facility] 19:04:29 [facility] ALBUMIN LEVEL 2022-04-14 [facility] [place] 19:04:29 [facility] ALKALINE PHOSPHATASE 2022-04-14 [facility] 19:04:29 [facility] ALANINE AMINOTRANSFERASE 2022-04-14 [facility] 19:04:29 [facility] ASPARTATE AMINOTRANSFERASE 2022-04-14 [facility] 19:04:29 [facility] TOTAL PROTEIN 2022-04-14 [facility] [place] 19:04:29 [facility] FRACTIONATED BILIRUBIN 2022-04-14 [facility] 19:04:29 [facility] FERRITIN LVL 2022-04-14 [facility] [place] 19:04:29 [facility] TRANSFERRIN 2022-04-14 [facility] [place] 19:04:29 [facility] IRON LEVEL 2022-04-14 [facility] [place] 19:04:29 [facility] [address] CHEST ABDOMEN PELVIS W 2022-04-14 Ncjeremias [facility] CONTRAST 18:40:00 [facility] IR NEPHROSTOMY EXCHANGE 60 2022-04-13 Carina Queen [facility] 20:31:06 [facility] BASIC METABOLIC PANEL, 2022-04-08 [facility] CALCIUM TOTAL 19:27:00 [facility] PROTHROMBIN TIME 2022-04-08 [facility] [place] 19:27:00 [facility] APTT 2022-04-08 [facility] [place] 19:27:00 [facility] FIBRINOGEN ACTIVITY 2022-04-08 [facility]aeWashington [facility] 19:27:00 [facility] GLUCOSE LEVEL 2022-04-08 [facility] [place] 19:27:00 [facility] BLOOD UREA NITROGEN 2022-04-08 [facility] [place] 19:27:00 [facility] ELECTROLYTE PANEL 2022-04-08 [facility] 19:27:00 [facility] SERUM CREATININE 2022-04-08 [facility] [place] 19:27:00 [facility] .GLOMERULAR FILTRATION RATE 2022-04-08 [facility] 19:27:00 [facility] CALCIUM LEVEL TOTAL 2022-04-08 [facility] 19:27:00 [facility] URINE CULTURE 2022-04-07 Brandan Ventura [facility] 00:31:00 [facility] URINALYSIS WITH MICROSCOPIC 2022-04-07 Brandan Ventura [facility] IF INDICATED 00:31:00 [facility] URINALYSIS MICROSCOPIC EXAM 2022-04-07 Brandan Ventura [facility] 00:31:00 [facility] US RENAL 2022-04-06 Brandan Ventura [facility] 23:19:47 [facility] URINE CULTURE 2022-04-06 [facility] [place] 22:56:00 [facility] URINALYSIS WITH MICROSCOPIC 2022-04-06 Thiago [facility] IF INDICATED 22:31:00 [facility] URINALYSIS MICROSCOPIC EXAM 2022-04-06 [facility] 22:31:00 [facility] COVID-19 (SARS-COV-2) 2022-04-06 Brandan Ventura [facility] ASYMPTOMATIC-LT 21:18:00 [facility] COMPLETE BLOOD COUNT W/ 2022-04-06 Brandan Ventura [facility] DIFFERENTIAL 21:18:00 [facility] COMPREHENSIVE METABOLIC PANEL 2022-04-06 Brandan Ventura [facility] 21:18:00 [facility] MAGNESIUM LEVEL 2022-04-06 Brandan Ventura [facility] 21:18:00 [facility] PHOSPHORUS LEVEL 2022-04-06 Brandan Ventura [facility] 21:18:00 [facility] PROTHROMBIN TIME 2022-04-06 Brandan Ventura [facility] 21:18:00 [facility] APTT 2022-04-06 Brandan Ventura [facility] 21:18:00 [facility] Results CBC 2022-04-06 Brandan Ventura [facility] 21:18:00 [facility] MANUAL DIFFERENTIAL 2022-04-06 Brandan Ventura [facility] 21:18:00 [facility] GLUCOSE LEVEL 2022-04-06 Brandan Ventura [facility] 21:18:00 [facility] BLOOD UREA NITROGEN 2022-04-06 Brandan Ventura [facility] 21:18:00 [facility] ELECTROLYTE PANEL 2022-04-06 Brandan Ventura [facility] 21:18:00 [facility] SERUM CREATININE 2022-04-06 Brandan Ventura [facility] 21:18:00 [facility] .GLOMERULAR FILTRATION RATE 2022-04-06 Brandan Ventura [facility] 21:18:00 [facility] CALCIUM LEVEL TOTAL 2022-04-06 Brandan Ventura [facility] 21:18:00 [facility] ALBUMIN LEVEL 2022-04-06 Brandan Ventura [facility] 21:18:00 [facility] ALKALINE PHOSPHATASE 2022-04-06 Brandan Ventura [facility] 21:18:00 [facility] ALANINE AMINOTRANSFERASE 2022-04-06 Brandan Ventura [facility] 21:18:00 [facility] ASPARTATE AMINOTRANSFERASE 2022-04-06 Brandan Ventura [facility] 21:18:00 [facility] TOTAL PROTEIN 2022-04-06 Brandan Ventuar [facility] 21:18:00 [facility] FRACTIONATED BILIRUBIN 2022-04-06 Brandan Ventura [facility] 21:18:00 [facility] NM GATED CARDIAC 2022-03-[address] [facility] [place] 18:19:00 [facility] EKG, 12-LEAD (SCHEDULED) 2022-03-31 Joan Vaughn [facility] 00:00:00 [facility] IR NEPHROSTOMY EXCHANGE 60 2022-03-16 Taina Cunningham [facility] 17:45:00 [facility] IR NEPHROSTOMY UNILATERAL 2022-03-16 Carson Oneill [facility] PLACEMENT 75 17:45:00 [facility] AFB CULTURE W/ SMEAR 2022-03-16 [facility] 17:42:00 [facility] FUNGUS CULTURE W/ SMEAR 2022-03-16 [facility] 17:42:00 [facility] URINE CULTURE 2022-03-16 [facility] x[place] 17:42:00 [facility] COVID-19 (SARS-COV-2) 2022-03-14 [facility] PCR-ASYMPTOMATIC MC 20:28:00 [facility] QIAC SERVICES 2022-03-12 [facility] [place] 15:31:[address] [facility] [address] CHEST ABDOMEN PELVIS W 2022-03-10 [facility] CONTR[facility] 20:30:00 [facility] URINALYSIS WITH MICROSCOPIC 2022-03-10 Martin, Rachana [facility] IF INDICATED 18:53:33 [facility] URINALYSIS MICROSCOPIC EXAM 2022-03-10 John Rachana [facility] 18:53:33 [facility] COMPLETE BLOOD COUNT W/ 2022-03-10 [facility] DIFFERENTIAL 18:52:56 [facility] COMPREHENSIVE METABOLIC PANEL 2022-03-10 [facility] 18:52:56 [facility] MAGNESIUM LEVEL 2022-03-10 [facility] 18:52:56 [facility] PHOSPHORUS LEVEL 2022-03-10 [facility] 18:52:56 [facility] LACTATE DEHYDROGENASE 2022-03-10 [facility] 18:52:56 [facility] URIC ACID 2022-03-10 [facility] 18:52:56 [facility] PROTHROMBIN TIME 2022-03-10 [facility] 18:52:56 [facility] APTT 2022-03-10 [facility] 18:52:56 [facility] THYROID STIMULATING HORMONE 2022-03-10 [facility] 18:52:56 [facility] FREE T3 2022-03-10 [facility] 18:52:56 [facility] FREE THYROXINE 2022-03-10 [facility] 18:52:56 [facility] Results CBC 2022-03-10 [facility] 18:52:56 [facility] MANUAL DIFFERENTIAL 2022-03-10 [facility] 18:52:56 [facility] GLUCOSE LEVEL 2022-03-10 [facility] 18:52:56 [facility] BLOOD UREA NITROGEN 2022-03-10 [facility] 18:52:56 [facility] ELECTROLYTE PANEL 2022-03-10 [facility] 18:52:56 [facility] SERUM CREATININE 2022-03-10 [facility] 18:52:56 [facility] .GLOMERULAR FILTRATION RATE 2022-03-10 [facility] 18:52:56 [facility] CALCIUM LEVEL TOTAL 2022-03-10 [facility] 18:52:56 [facility] ALBUMIN LEVEL 2022-03-10 [facility] 18:52:56 [facility] ALKALINE PHOSPHATASE 2022-03-10 [facility] 18:52:56 [facility] ALANINE AMINOTRANSFERASE 2022-03-10 [facility] 18:52:56 [facility] ASPARTATE AMINOTRANSFERASE 2022-03-10 [facility] 18:52:56 [facility] TOTAL PROTEIN 2022-03-10 [facility] 18:52:56 [facility] FRACTIONATED BILIRUBIN 2022-03-10 [facility] 18:52:56 [facility] MRI CERVICAL THORACIC LUMBAR 2022-02-20 Carson Oneill [facility] SPINE W WO CONTRAST 20:34:01 [facility] COMPLETE BLOOD COUNT W/ 2022-02-10 [facility] DIFFERENTIAL 18:19:00 [facility] COMPREHENSIVE METABOLIC PANEL 2022-02-10 [facility] 18:19:00 [facility] MAGNESIUM LEVEL 2022-02-10 [facility] [place] 18:19:00 [facility] PHOSPHORUS LEVEL 2022-02-10 [facility] [place] 18:19:00 [facility] LACTATE DEHYDROGENASE 2022-02-10 [facility] 18:19:00 [facility] URIC ACID 2022-02-10 [facility] [place] 18:19:00 [facility] PROTHROMBIN TIME 2022-02-10 [facility] [place] 18:19:00 [facility] APTT 2022-02-10 [facility] [place] 18:19:00 [facility] THYROID STIMULATING HORMONE 2022-02-10 [facility] 18:19:00 [facility] FREE T3 2022-02-10 [facility] [place] 18:19:00 [facility] FREE THYROXINE 2022-02-10 [facility] [place] 18:19:00 [facility] URINALYSIS WITH MICROSCOPIC 2022-02-10 [facility] IF INDICATED 18:19:00 [facility] Results CBC 2022-02-10 [facility] [place] 18:19:00 [facility] MANUAL DIFFERENTIAL 2022-02-10 [facility] 18:19:00 [facility] GLUCOSE LEVEL 2022-02-10 [facility] [place] 18:19:00 [facility] BLOOD UREA NITROGEN 2022-02-10 [facility] 18:19:00 [facility] ELECTROLYTE PANEL 2022-02-10 [facility] 18:19:00 [facility] SERUM CREATININE 2022-02-10 [facility] [place] 18:19:00 [facility] .GLOMERULAR FILTRATION RATE 2022-02-10 [facility] 18:19:00 [facility] CALCIUM LEVEL TOTAL 2022-02-10 [facility] 18:19:00 [facility] ALBUMIN LEVEL 2022-02-10 [facility] 18:19:00 [facility] ALKALINE PHOSPHATASE 2022-02-10 [facility] 18:19:00 [facility] ALANINE AMINOTRANSFERASE 2022-02-10 [facility] 18:19:00 [facility] ASPARTATE AMINOTRANSFERASE 2022-02-10 [facility]ari[facility] hospital[facility] 18:19:00 [facility] TOTAL PROTEIN 2022-02-10 [facility] [place] 18:19:00 [facility] FRACTIONATED BILIRUBIN 2022-02-10 [facility] 18:19:00 [facility] URINALYSIS MICROSCOPIC 2022-02-10 [facility] 18:19:00 [facility] URINE CULTURE 2022-02-04 [facility], [facility] [place] 20:53:00 [facility] URINALYSIS WITH MICROSCOPIC 2022-02-04 [facility], [facility] IF INDICATED 20:53:00 [facility] URINALYSIS MICROSCOPIC 2022-02-04 [facility], [facility] 20:53:00 [facility] NM BONE SCAN WHOLE BODY 2022-01-23 [facility] 20:59:00 [facility] XR HIP 2 VW BILATERAL W 2022-01-23 [facility] PELVIS 18:44:11 [facility] QIAC SERVICES 2022-01-13 [facility], [facility] [place] 20:02:[address] [facility] [address] CHEST ABDOMEN PELVIS W 2022-01-09 Roderick [facility] CONTRAST 18:56:00 [facility] URINALYSIS WITH MICROSCOPIC 2022-01-09 [facility]ick [facility] IF INDICATED 16:25:06 [facility] URINALYSIS MICROSCOPIC 2022-01-09 Roderick [facility] 16:25:06 [facility] CALCIUM LEVEL TOTAL 2022-01-09 [facility], [facility] 16:20:00 [facility] PHOSPHORUS LEVEL 2022-01-09 [facility], [facility] ex 16:20:00 [facility] SERUM CREATININE 2022-01-09 [facility], [facility] ex 16:20:00 [facility] COMPLETE BLOOD COUNT W/ 2022-01-09 Roderick [facility] DIFFERENTIAL 16:20:00 [facility] COMPREHENSIVE METABOLIC PANEL 2022-01-09 [facility]ick [facility] 16:20:00 [facility] MAGNESIUM LEVEL 2022-01-09 [facility] [place] 16:20:00 [facility] LACTATE DEHYDROGENASE 2022-01-09 [facility] 16:20:00 [facility] URIC ACID 2022-01-09 [facility] [place] 16:20:00 [facility] PROTHROMBIN TIME 2022-01-09 [facility] [place] 16:20:00 [facility] APTT 2022-01-09 [facility] [place] 16:20:00 [facility] THYROID STIMULATING HORMONE 2022-01-09 [facility] 16:20:00 [facility] FREE T3 2022-01-09 [facility] [place] 16:20:00 [facility] FREE THYROXINE 2022-01-09 [facility] 16:20:00 [facility] SERUM CREATININE 2022-01-09 [facility] ex 16:20:00 [facility] .GLOMERULAR FILTRATION RATE 2022-01-09 [facility] 16:20:00 [facility] GLUCOSE LEVEL 2022-01-09 [facility] [place] 16:20:00 [facility] BLOOD UREA NITROGEN 2022-01-09 [facility] 16:20:00 [facility] ELECTROLYTE PANEL 2022-01-09 [facility] 16:20:00 [facility] ALBUMIN LEVEL 2022-01-09 [facility] [place] 16:20:00 [facility] ALKALINE PHOSPHATASE 2022-01-09 [facility] 16:20:00 [facility] ALANINE AMINOTRANSFERASE 2022-01-09 [facility] 16:20:00 [facility] ASPARTATE AMINOTRANSFERASE 2022-01-09 [facility] 16:20:00 [facility] TOTAL PROTEIN 2022-01-09 [facility] [place] 16:20:00 [facility] FRACTIONATED BILIRUBIN 2022-01-09 [facility] 16:20:00 [facility] Results CBC 2022-01-09 [facility] x[facility] 16:20:00 [facility] MANUAL DIFFERENTIAL 2022-01-09 [facility] 16:20:00 [facility] COMPREHENSIVE METABOLIC PANEL 2021-12-30 [facility], [facility] 17:14:00 [facility] GLUCOSE LEVEL 2021-12-30 [facility] 17:14:00 [facility] BLOOD UREA NITROGEN 2021-12-30 [facility], [facility] 17:14:00 [facility] ELECTROLYTE PANEL 2021-12-30 [facility], [facility] 17:14:00 [facility] SERUM CREATININE 2021-12-30 [facility], [facility] ex 17:14:00 [facility] .GLOMERULAR FILTRATION RATE 2021-12-30 [facility], [facility] 17:14:00 [facility] CALCIUM LEVEL TOTAL 2021-12-30 [facility], [facility] 17:14:00 [facility] ALBUMIN LEVEL 2021-12-30 [facility] x[facility] 17:14:00 [facility] ALKALINE PHOSPHATASE 2021-12-30 [facility] 17:14:00 [facility] ALANINE AMINOTRANSFERASE 2021-12-30 [place], [facility] 17:14:00 [facility] ASPARTATE AMINOTRANSFERASE 2021-12-30 [place], [facility] 17:14:00 [facility] TOTAL PROTEIN 2021-12-30 [place], [facility] xa 17:14:00 [facility] FRACTIONATED BILIRUBIN 2021-12-30 [facility] 17:14:00 [facility] AP IHC PD-L1 MATERIAL REQUEST 2021-12-25 Joan Vaughn [facility] 00:15:55 [facility] Center POTASSIUM LEVEL 2021-12-16 [facility] [place] 20:48:00 [facility] COMPLETE BLOOD COUNT W/ 2021-12-16 Roderick [facility] DIFFERENTIAL 14:39:00 [facility] COMPREHENSIVE METABOLIC PANEL 2021-12-16 Joan Vaughn [facility] 14:39:00 [facility] MAGNESIUM LEVEL 2021-12-16 [facility] 14:39:00 [facility] PHOSPHORUS LEVEL 2021-12-16 [facility] 14:39:00 [facility] LACTATE DEHYDROGENASE 2021-12-16 [facility] 14:39:00 [facility] URIC ACID 2021-12-16 [facility] 14:39:00 [facility] PROTHROMBIN TIME 2021-12-16 [facility] 14:39:00 [facility] APTT 2021-12-16 [facility] 14:39:00 [facility] THYROID STIMULATING HORMONE 2021-12-16 [facility] 14:39:00 [facility] FREE T3 2021-12-16 [facility] 14:39:00 [facility] FREE THYROXINE 2021-12-16 [facility] 14:39:00 [facility] URINALYSIS WITH MICROSCOPIC 2021-12-16 [facility]ari[facility] IF INDICATED 14:39:00 [facility] Results CBC 2021-12-16 [facility] 14:39:00 [facility] MANUAL DIFFERENTIAL 2021-12-16 [facility]resadontaeWashington [facility] 14:39:00 [facility] GLUCOSE LEVEL 2021-12-16 [facility] [place] 14:39:00 [facility] BLOOD UREA NITROGEN 2021-12-16 [facility] 14:39:00 [facility] ELECTROLYTE PANEL 2021-12-16 [facility] 14:39:00 [facility] SERUM CREATININE 2021-12-16 [facility] [place] 14:39:00 [facility] .GLOMERULAR FILTRATION RATE 2021-12-16 [facility] 14:39:00 [facility] CALCIUM LEVEL TOTAL 2021-12-16 [facility] 14:39:00 [facility] ALBUMIN LEVEL 2021-12-16 [facility] [place] 14:39:00 [facility] ALKALINE PHOSPHATASE 2021-12-16 [facility] 14:39:00 [facility] ALANINE AMINOTRANSFERASE 2021-12-16 [facility] 14:39:00 [facility] ASPARTATE AMINOTRANSFERASE 2021-12-16 [facility] 14:39:00 [facility] TOTAL PROTEIN 2021-12-16 [facility] [place] 14:39:00 [facility] FRACTIONATED BILIRUBIN 2021-12-16 [facility] 14:39:00 [facility] URINALYSIS MICROSCOPIC 2021-12-16 [facility] 14:39:00 [facility] IR NEPHROSTOMY EXCHANGE 60 2021-12-15 Lucille Cunningham [facility] 16:30:20 [facility] QIAC SERVICES 2021-11-27 [facility] [place] 13:40:[address] [facility] [address] CHEST ABDOMEN PELVIS W 2021-11-18 [facility] CONTRAST 16:03:12 [facility] COMPLETE BLOOD COUNT W/ 2021-11-18 Roderick Joan [facility] DIFFERENTIAL 14:33:00 [facility] COMPREHENSIVE METABOLIC PANEL 2021-11-18 Joan Vaughn [facility] 14:33:00 [facility] MAGNESIUM LEVEL 2021-11-18 [facility] 14:33:00 [facility] PHOSPHORUS LEVEL 2021-11-18 [facility] 14:33:00 [facility] LACTATE DEHYDROGENASE 2021-11-18 [facility] 14:33:00 [facility] URIC ACID 2021-11-18 [facility] 14:33:00 [facility] PROTHROMBIN TIME 2021-11-18 [facility] 14:33:00 [facility] APTT 2021-11-18 [facility] [place] 14:33:00 [facility] THYROID STIMULATING HORMONE 2021-11-18 [facility] 14:33:00 [facility] FREE T3 2021-11-18 [facility] [place] 14:33:00 [facility] FREE THYROXINE 2021-11-18 [facility] [place] 14:33:00 [facility] URINALYSIS WITH MICROSCOPIC 2021-11-18 [facility] IF INDICATED 14:33:00 [facility] Results CBC 2021-11-18 [facility] 14:33:00 [facility] MANUAL DIFFERENTIAL 2021-11-18 Roderick [facility] 14:33:00 [facility] GLUCOSE LEVEL 2021-11-18 [facility] 14:33:00 [facility] BLOOD UREA NITROGEN 2021-11-18 [facility] 14:33:00 [facility] ELECTROLYTE PANEL 2021-11-18 [facility] 14:33:00 [facility] SERUM CREATININE 2021-11-18 [facility] [place] 14:33:00 [facility] .GLOMERULAR FILTRATION RATE 2021-11-18 [facility] 14:33:00 [facility] CALCIUM LEVEL TOTAL 2021-11-18 [facility] [place] 14:33:00 [facility] ALBUMIN LEVEL 2021-11-18 [facility] [place] 14:33:00 [facility] ALKALINE PHOSPHATASE 2021-11-18 [facility] 14:33:00 [facility] ALANINE AMINOTRANSFERASE 2021-11-18 [facility] 14:33:00 [facility] ASPARTATE AMINOTRANSFERASE 2021-11-18 [facility] 14:33:00 [facility] TOTAL PROTEIN 2021-11-18 [facility] [place] 14:33:00 [facility] FRACTIONATED BILIRUBIN 2021-11-18 [facility] 14:33:00 [facility] URINALYSIS MICROSCOPIC 2021-11-18 [facility] 14:33:00 [facility] NM BONE SCAN WHOLE BODY 2021-11-17 [facility] 18:39:00 [facility] IR CT GUIDED BIOPSY PELVIC 2021-11-04 April Amado [facility] NON-BONE 60 16:10:00 M [facility] COMPLETE BLOOD COUNT W/ 2021-10-21 [facility] DIFFERENTIAL 13:00:00 [facility] COMPREHENSIVE METABOLIC PANEL 2021-10-21 [facility] 13:00:00 [facility] MAGNESIUM LEVEL 2021-10-21 [facility] [place] 13:00:00 [facility] PHOSPHORUS LEVEL 2021-10-21 [facility] [place] 13:00:00 [facility] LACTATE DEHYDROGENASE 2021-10-21 [facility] 13:00:00 [facility] URIC ACID 2021-10-21 [facility] 13:00:00 [facility] PROTHROMBIN TIME 2021-10-[address] [facility] ex[place] 13:00:00 [facility] APTT 2021-10-21 [facility] [place] 13:00:00 [facility] THYROID STIMULATING HORMONE 2021-10-21 [facility] 13:00:00 [facility] FREE T3 2021-10-21 [facility] [place] 13:00:00 [facility] FREE THYROXINE 2021-10-21 [facility] 13:00:00 [facility] URINALYSIS WITH MICROSCOPIC 2021-10-21 [facility] IF INDICATED 13:00:00 [facility] Results CBC 2021-10-21 [facility] [place] 13:00:00 [facility] MANUAL DIFFERENTIAL 2021-10-21 [facility] [place] 13:00:00 [facility] GLUCOSE LEVEL 2021-10-21 [facility] [place] 13:00:00 [facility] BLOOD UREA NITROGEN 2021-10-21 [facility] [place] 13:00:00 [facility] ELECTROLYTE PANEL 2021-10-21 [facility] 13:00:00 [facility] SERUM CREATININE 2021-10-21 [facility] [place] 13:00:00 [facility] .GLOMERULAR FILTRATION RATE 2021-10-21 [facility] 13:00:00 [facility] CALCIUM LEVEL TOTAL 2021-10-21 Roderick, [facility] 13:00:00 [facility] ALBUMIN LEVEL 2021-10-21 [facility] 13:00:00 [facility] ALKALINE PHOSPHATASE 2021-10-21 Roderick [facility] 13:00:00 [facility] ALANINE AMINOTRANSFERASE 2021-10-21 [facility] 13:00:00 [facility] ASPARTATE AMINOTRANSFERASE 2021-10-21 [facility] 13:00:00 [facility] TOTAL PROTEIN 2021-10-21 [facility] 13:00:00 [facility] FRACTIONATED BILIRUBIN 2021-10-21 [facility] 13:00:00 [facility] URINALYSIS MICROSCOPIC 2021-10-21 [facility] 13:00:00 [facility] COMPLETE BLOOD COUNT W/ 2021-10-14 [facility] DIFFER[facility] 18:23:00 [facility] COMPREHENSIVE METABOLIC PANEL 2021-10-14 [facility] 18:23:00 [facility] MAGNESIUM LEVEL 2021-10-14 [facility] 18:23:00 [facility] PHOSPHORUS LEVEL 2021-10-14 [facility] ex[place] 18:23:00 [facility] LACTATE DEHYDROGENASE 2021-10-14 [facility] 18:23:00 [facility] URIC ACID 2021-10-14 [facility] [place] 18:23:00 [facility] PROTHROMBIN TIME 2021-10-14 [facility] [place] 18:23:00 [facility] APTT 2021-10-14 [facility] [place] 18:23:00 [facility] THYROID STIMULATING HORMONE 2021-10-14 [facility] 18:23:00 [facility] FREE T3 2021-10-14 [facility] [place] 18:23:00 [facility] FREE THYROXINE 2021-10-14 [facility] [place] 18:23:00 [facility] URINALYSIS WITH MICROSCOPIC 2021-10-14 [facility] IF INDICATED 18:23:00 [facility] Results CBC 2021-10-14 [facility] 18:23:00 [facility] MANUAL DIFFERENTIAL 2021-10-14 [facility] 18:23:00 [facility] GLUCOSE LEVEL 2021-10-14 [facility] 18:23:00 [facility] BLOOD UREA NITROGEN 2021-10-14 [facility] 18:23:00 [facility] ELECTROLYTE PANEL 2021-10-14 [facility] 18:23:00 [facility] SERUM CREATININE 2021-10-14 [facility] [place] 18:23:00 [facility] .GLOMERULAR FILTRATION RATE 2021-10-14 [facility] 18:23:00 [facility] CALCIUM LEVEL TOTAL 2021-10-14 [facility] 18:23:00 [facility] ALBUMIN LEVEL 2021-10-14 [facility] 18:23:00 [facility] ALKALINE PHOSPHATASE 2021-10-14 [facility] 18:23:00 [facility] ALANINE AMINOTRANSFERASE 2021-10-14 [facility] 18:23:00 [facility] ASPARTATE AMINOTRANSFERASE 2021-10-14 [facility] 18:23:00 [facility] TOTAL PROTEIN 2021-10-14 [facility] [place] 18:23:00 [facility] FRACTIONATED BILIRUBIN 2021-10-14 [facility] 18:23:00 [facility] URINALYSIS MICROSCOPIC 2021-10-14 [facility] 18:23:00 [facility] COMPLETE BLOOD COUNT W/ 2021-10-08 [facility] DIFFERENTIAL 14:25:00 [facility] COMPREHENSIVE METABOLIC PANEL 2021-10-08 [facility] 14:25:00 [facility] MAGNESIUM LEVEL 2021-10-08 [facility] [place] 14:25:00 [facility] PHOSPHORUS LEVEL 2021-10-08 [facility] [place] 14:25:00 [facility] LACTATE DEHYDROGENASE 2021-10-08 [facility] 14:25:00 [facility] URIC ACID 2021-10-08 [facility] 14:25:00 [facility] PROTHROMBIN TIME 2021-10-08 [facility] ex[facility] 14:25:00 [facility] APTT 2021-10-08 [facility] [place] 14:25:00 [facility] THYROID STIMULATING HORMONE 2021-10-08 [facility] 14:25:00 [facility] FREE T3 2021-10-08 [facility] 14:25:00 [facility] FREE THYROXINE 2021-10-08 [facility] 14:25:00 [facility] URINALYSIS WITH MICROSCOPIC 2021-10-08 [facility] IF INDICATED 14:25:00 [facility] Results CBC 2021-10-08 [facility] [place] 14:25:00 [facility] MANUAL DIFFERENTIAL 2021-10-08 [facility] 14:25:00 [facility] GLUCOSE LEVEL 2021-10-08 [facility] 14:25:00 [facility] BLOOD UREA NITROGEN 2021-10-08 [facility] 14:25:00 [facility] ELECTROLYTE PANEL 2021-10-08 [facility] 14:25:00 [facility] SERUM CREATININE 2021-10-08 [facility] [place] 14:25:00 [facility] .GLOMERULAR FILTRATION RATE 2021-10-08 [facility] 14:25:00 [facility] CALCIUM LEVEL TOTAL 2021-10-08 [facility] 14:25:00 [facility] ALBUMIN LEVEL 2021-10-08 [facility] [place] 14:25:00 [facility] ALKALINE PHOSPHATASE 2021-10-08 [facility] 14:25:00 [facility] ALANINE AMINOTRANSFERASE 2021-10-08 [facility] 14:25:00 [facility] ASPARTATE AMINOTRANSFERASE 2021-10-08 [facility] 14:25:00 [facility] TOTAL PROTEIN 2021-10-08 [facility] [place] 14:25:00 [facility] FRACTIONATED BILIRUBIN 2021-10-08 [facility] 14:25:00 [facility] URINALYSIS MICROSCOPIC 2021-10-08 [facility] 14:25:00 [facility] COMPLETE BLOOD COUNT W/ 2021-09-30 [facility] DIFFERENTIAL 14:43:00 [facility] COMPREHENSIVE METABOLIC PANEL 2021-09-30 [facility] 14:43:00 [facility] MAGNESIUM LEVEL 2021-09-30 [facility] [place] 14:43:00 [facility] PHOSPHORUS LEVEL 2021-09-30 [facility] [place] 14:43:00 [facility] LACTATE DEHYDROGENASE 2021-09-30 Alhalabi, [facility] 14:43:00 [facility] URIC ACID 2021-09-30 [facility]ick [facility] [place] 14:43:00 [facility] PROTHROMBIN TIME 2021-09-[address] [facility] exas 14:43:00 [facility] APTT 2021-09-30 [facility] [place] 14:43:00 [facility] THYROID STIMULATING HORMONE 2021-09-30 [facility] 14:43:00 [facility] FREE T3 2021-09-30 Roderick [facility] [place] 14:43:00 [facility] FREE THYROXINE 2021-09-30 [facility] [place] 14:43:00 [facility] URINALYSIS WITH MICROSCOPIC 2021-09-30 [facility] IF INDICATED 14:43:00 [facility] Results CBC 2021-09-30 Roderick [facility] [place] 14:43:00 [facility] MANUAL DIFFERENTIAL 2021-09-[address] [facility] 14:43:00 [facility] GLUCOSE LEVEL 2021-09-30 [facility] 14:43:00 [facility] BLOOD UREA NITROGEN 2021-09-30 [facility] 14:43:00 [facility] ELECTROLYTE PANEL 2021-09-30 [facility] 14:43:00 [facility] SERUM CREATININE 2021-09-30 [facility] ex[facility] 14:43:00 [facility] .GLOMERULAR FILTRATION RATE 2021-09-30 [facility] 14:43:00 [facility] CALCIUM LEVEL TOTAL 2021-09-30 [facility] [place] 14:43:00 [facility] ALBUMIN LEVEL 2021-09-30 [facility] 14:43:00 [facility] ALKALINE PHOSPHATASE 2021-09-30 [facility] 14:43:00 [facility] ALANINE AMINOTRANSFERASE 2021-09-30 [facility] 14:43:00 [facility] ASPARTATE AMINOTRANSFERASE 2021-09-30 [facility] 14:43:00 [facility] TOTAL PROTEIN 2021-09-30 [facility] [place] 14:43:00 [facility] FRACTIONATED BILIRUBIN 2021-09-30 [facility] 14:43:00 [facility] URINALYSIS MICROSCOPIC 2021-09-30 [facility] 14:43:00 [facility] QIAC SERVICES 2021-09-23 [facility], [facility] [place] 15:11:22 [facility] IR CT GUIDED BIOPSY LYMPH 2021-09-19 [facility], [facility] NODE 60 21:09:00 [facility] URINALYSIS WITH MICROSCOPIC 2021-09-19 [facility], [facility] IF INDICATED 18:21:00 [facility] URINALYSIS MICROSCOPIC 2021-09-19 [facility], [facility] 18:21:00 [facility] COMPLETE BLOOD COUNT W/ 2021-09-19 [facility], [facility] DIFFERENTIAL 18:18:00 [facility] APTT 2021-09-19 [facility], [facility] [place] 18:18:00 [facility] PROTHROMBIN TIME 2021-09-19 [facility], [facility] ex[place] 18:18:00 [facility] THYROID STIMULATING HORMONE 2021-09-19 [facility], [facility] 18:18:00 [facility] FREE T3 2021-09-19 [facility] [place] 18:18:00 [facility] FREE THYROXINE 2021-09-19 [facility], [facility] [place] 18:18:00 [facility] COMPREHENSIVE METABOLIC PANEL 2021-09-19 [facility] 18:18:00 [facility] MAGNESIUM LEVEL 2021-09-19 U[facility], [facility] xa 18:18:00 [facility] PHOSPHORUS LEVEL 2021-09-19 [facility] ex[place] 18:18:00 [facility] LACTATE DEHYDROGENASE 2021-09-19 [facility], [facility] 18:18:00 [facility] URIC ACID 2021-09-19 [facility] [place] 18:18:00 [facility] Results CBC 2021-09-19 [facility], [facility] xa 18:18:00 [facility] MANUAL DIFFERENTIAL 2021-09-19 [facility] 18:18:00 [facility] GLUCOSE LEVEL 2021-09-19 [facility] xa 18:18:00 [facility] BLOOD UREA NITROGEN 2021-09-19 [facility], [facility] 18:18:00 [facility] ELECTROLYTE PANEL 2021-09-19 [facility], [facility] 18:18:00 [facility] SERUM CREATININE 2021-09-19 [facility], [facility] ex 18:18:00 [facility] .GLOMERULAR FILTRATION RATE 2021-09-19 [facility], [facility] 18:18:00 [facility] CALCIUM LEVEL TOTAL 2021-09-19 [facility], [facility] 18:18:00 [facility] ALBUMIN LEVEL 2021-09-19 [facility] xa 18:18:00 [facility] ALKALINE PHOSPHATASE 2021-09-19 [facility], [facility] 18:18:00 [facility] ALANINE AMINOTRANSFERASE 2021-09-19 [facility], [facility] 18:18:00 [facility] ASPARTATE AMINOTRANSFERASE 2021-09-19 [facility], [facility] 18:18:00 [facility] TOTAL PROTEIN 2021-09-19 [facility], [facility] [place] 18:18:00 [facility] FRACTIONATED BILIRUBIN 2021-09-19 [facility], [facility] 18:18:00 [facility] EKG, 12-LEAD (SCHEDULED) 2021-09-19 [facility], [facility] 00:00:00 [facility] IR NEPHROSTOMY EXCHANGE 60 2021-09-15 Zeus Locke [facility] 17:01:22 [facility] QIAC SERVICES 2021-09-12 [facility], [facility] [place] 12:17:[address] [facility] [address] CHEST ABDOMEN PELVIS W 2021-09-11 [facility], [facility] CONTRAST 00:38:45 [facility] COMPREHENSIVE METABOLIC PANEL 2021-09-10 [facility], [facility] 18:52:00 [facility] MAGNESIUM LEVEL 2021-09-10 [facility], [facility] [place] 18:52:00 [facility] PHOSPHORUS LEVEL 2021-09-10 [facility], [facility] exas 18:52:00 [facility] LACTATE DEHYDROGENASE 2021-09-10 [facility], [facility] 18:52:00 [facility] URIC ACID 2021-09-10 [facility], [facility] [place] 18:52:00 [facility] COMPLETE BLOOD COUNT W/ 2021-09-10 [facility], [facility] DIFFERENTIAL 18:52:00 [facility] APTT 2021-09-10 [facility], [facility] [place] 18:52:00 [facility] PROTHROMBIN TIME 2021-09-10 [facility], [facility] exas 18:52:00 [facility] URINALYSIS WITH MICROSCOPIC 2021-09-10 [facility], [facility] IF INDICATED 18:52:00 [facility] THYROID STIMULATING HORMONE 2021-09-10 [facility], [facility] 18:52:00 [facility] FREE T3 2021-09-10 [facility], [facility] xa 18:52:00 [facility] FREE THYROXINE 2021-09-10 [facility] xa 18:52:00 [facility] HEPATITIS B SURFACE ANTIGEN, 2021-09-10 [facility], [facility] SERUM 18:52:00 [facility] HEPATITIS C VIRUS ANTIBODY 2021-09-10 [facility], [facility] 18:52:00 [facility] GLUCOSE LEVEL 2021-09-10 [facility], [facility] xa 18:52:00 [facility] BLOOD UREA NITROGEN 2021-09-10 [facility], [facility] 18:52:00 [facility] ELECTROLYTE PANEL 2021-09-10 [facility], [facility] 18:52:00 [facility] SERUM CREATININE 2021-09-10 [facility], [facility] exas 18:52:00 [facility] .GLOMERULAR FILTRATION RATE 2021-09-10 [facility], [facility] 18:52:00 [facility] CALCIUM LEVEL TOTAL 2021-09-10 [facility], [facility] 18:52:00 [facility] ALBUMIN LEVEL 2021-09-10 [facility], [facility] xa 18:52:00 [facility] ALKALINE PHOSPHATASE 2021-09-10 [facility], [facility] 18:52:00 [facility] ALANINE AMINOTRANSFERASE 2021-09-10 [facility], [facility] 18:52:00 [facility] ASPARTATE AMINOTRANSFERASE 2021-09-10 [facility], [facility] 18:52:00 [facility] TOTAL PROTEIN 2021-09-10 [facility], [facility] xa 18:52:00 [facility] FRACTIONATED BILIRUBIN 2021-09-10 [facility], [facility] 18:52:00 [facility] Results CBC 2021-09-10 [facility], [facility] xas 18:52:00 [facility] MANUAL DIFFERENTIAL 2021-09-10 [facility], [facility] [place] 18:52:00 [facility] URINALYSIS MICROSCOPIC 2021-09-10 [facility], [facility] 18:52:00 [facility] EKG, 12-LEAD (SCHEDULED) 2021-09-10 [facility], [facility] 00:00:00 [facility] NM BONE SCAN WHOLE BODY 2021-08-19 [facility], [facility] 19:26:00 [facility] URINALYSIS WITH MICROSCOPIC 2021-08-19 [facility], [facility] IF INDICATED 16:08:00 [facility] PROTEIN / CREATININE RATIO 2021-08-19 [facility], [facility] URINE 16:08:00 [facility] URINALYSIS MICROSCOPIC 2021-08-19 [facility], [facility] 16:08:00 [facility] PHOSPHORUS LEVEL 2021-08-19 [facility], [facility] exas 16:04:00 [facility] THYROID STIMULATING HORMONE 2021-08-19 [facility], [facility] 16:04:00 [facility] [facility] FREE THYROXINE 2021-08-19 [facility], [facility] xas 16:04:00 [facility] AMYLASE LEVEL 2021-08-19 [facility], [facility] xas 16:04:00 [facility] LIPASE LEVEL 2021-08-19 [facility] 16:04:00 [facility] COMPLETE BLOOD COUNT W/ 2021-08-19 [facility], [facility] DIFFERENTIAL 16:04:00 [facility] MAGNESIUM LEVEL 2021-08-19 [facility], [facility] x[facility] 16:04:00 [facility] COMPREHENSIVE METABOLIC PANEL 2021-08-19 [facility], [facility] 16:04:00 [facility] Center GLUCOSE LEVEL 2021-08-19 [facility], [facility] xa 16:04:00 [facility] BLOOD UREA NITROGEN 2021-08-19 [facility], [facility] 16:04:00 [facility] ELECTROLYTE PANEL 2021-08-19 [facility], [facility] 16:04:00 [facility] SERUM CREATININE 2021-08-19 [facility], [facility] exas 16:04:00 [facility] .GLOMERULAR FILTRATION RATE 2021-08-19 [facility], [facility] 16:04:00 [facility] CALCIUM LEVEL TOTAL 2021-08-19 [facility], [facility] 16:04:00 [facility] ALBUMIN LEVEL 2021-08-19 [facility], [facility] 16:04:00 [facility] ALKALINE PHOSPHATASE 2021-08-19 [facility], [facility] 16:04:00 [facility] ALANINE AMINOTRANSFERASE 2021-08-19 [facility], [facility] 16:04:00 [facility] ASPARTATE AMINOTRANSFERASE 2021-08-19 [facility], [facility] 16:04:00 [facility] TOTAL PROTEIN 2021-08-19 [facility], [facility] xa 16:04:00 [facility] FRACTIONATED BILIRUBIN 2021-08-19 [facility], [facility] 16:04:00 [facility] Results CBC 2021-08-19 [facility], [facility] 16:04:00 [facility] MANUAL DIFFERENTIAL 2021-08-19 [facility], [facility] 16:04:[address] [facility] [address] CHEST ABDOMEN PELVIS W 2021-08-19 [facility], [facility] CONTRAST 15:03:59 [facility] POC CREATININE 2021-08-19 [facility], [facility] 14:02:00 [facility] THYROID STIMULATING HORMONE 2021-08-05 [facility] 15:52:00 [facility] FREE THYROXINE 2021-08-05 [facility], [facility] xas 15:52:00 [facility] AMYLASE LEVEL 2021-08-05 [facility] xa 15:52:00 [facility] LIPASE LEVEL 2021-08-05 [facility], [facility] xas 15:52:00 [facility] COMPLETE BLOOD COUNT W/ 2021-08-05 [facility], [facility] DIFFERENTIAL 15:52:00 [facility] MAGNESIUM LEVEL 2021-08-05 [facility] 15:52:00 [facility] COMPREHENSIVE METABOLIC PANEL 2021-08-05 [facility], [facility] 15:52:00 [facility] HEMOGLOBIN A1C 2021-08-05 [facility], [facility] 15:52:00 [facility] GLUCOSE LEVEL 2021-08-05 [facility] x[facility] 15:52:00 [facility] BLOOD UREA NITROGEN 2021-08-05 [facility], [facility] 15:52:00 [facility] ELECTROLYTE PANEL 2021-08-05 [facility], [facility] 15:52:00 [facility] SERUM CREATININE 2021-08-05 [facility], [facility] exas 15:52:00 [facility] .GLOMERULAR FILTRATION RATE 2021-08-05 [facility], [facility] 15:52:00 [facility] CALCIUM LEVEL TOTAL 2021-08-05 [facility], [facility] 15:52:00 [facility] ALBUMIN LEVEL 2021-08-05 [facility], [facility] 15:52:00 [facility] ALKALINE PHOSPHATASE 2021-08-05 [facility], [facility] 15:52:00 [facility] ALANINE AMINOTRANSFERASE 2021-08-05 [facility], [facility] 15:52:00 [facility] ASPARTATE AMINOTRANSFERASE 2021-08-05 [facility], [facility] 15:52:00 [facility] TOTAL PROTEIN 2021-08-05 [facility], [facility] 15:52:00 [facility] Results CBC 2021-08-05 [facility], [facility] 15:52:00 [facility] FRACTIONATED BILIRUBIN 2021-08-05 [facility], [facility] 15:52:00 [facility] MANUAL DIFFERENTIAL 2021-08-05 [facility], [facility] [place] 15:52:00 [facility] THYROID STIMULATING HORMONE 2021-07-22 [facility], [facility] 14:42:00 [facility] FREE THYROXINE 2021-07-22 [facility], [facility] 14:42:00 [facility] AMYLASE LEVEL 2021-07-22 [facility], [facility] 14:42:00 [facility] LIPASE LEVEL 2021-07-22 [facility], [facility] x[facility] 14:42:00 [facility] MAGNESIUM LEVEL 2021-07-22 [facility], [facility] 14:42:00 [facility] COMPREHENSIVE METABOLIC PANEL 2021-07-22 [facility], [facility] 14:42:00 [facility] GLUCOSE LEVEL 2021-07-22 [facility], [facility] x[facility] 14:42:00 [facility] BLOOD UREA NITROGEN 2021-07-22 [facility], [facility] 14:42:00 [facility] ELECTROLYTE PANEL 2021-07-22 [facility], [facility] 14:42:00 [facility] SERUM CREATININE 2021-07-22 [facility], [facility] exas 14:42:00 [facility] .GLOMERULAR FILTRATION RATE 2021-07-22 [facility], [facility] 14:42:00 [facility] CALCIUM LEVEL TOTAL 2021-07-22 [facility], [facility] 14:42:00 [facility] ALBUMIN LEVEL 2021-07-22 [facility], [facility] 14:42:00 [facility] ALKALINE PHOSPHATASE 2021-07-22 [facility], [facility] 14:42:00 [facility] ALANINE AMINOTRANSFERASE 2021-07-22 [facility], [facility] 14:42:00 [facility] ASPARTATE AMINOTRANSFERASE 2021-07-22 [facility], [facility] 14:42:00 [facility] TOTAL PROTEIN 2021-07-22 [facility], [facility] 14:42:00 [facility] FRACTIONATED BILIRUBIN 2021-07-22 [facility], [facility] 14:42:00 [facility] COMPLETE BLOOD COUNT W/ 2021-07-22 [facility], [facility] DIFFERENTIAL 14:39:00 [facility] Results CBC 2021-07-22 [facility], [facility] xa 14:39:00 [facility] Center MANUAL DIFFERENTIAL 2021-07-22 [facility], [facility] 14:39:00 [facility] Center PHOSPHORUS LEVEL 2021-07-08 Quint[facility] 14:56:00 [facility] THYROID STIMULATING HORMONE 2021-07-08 [facility], [facility] 14:56:00 [facility] FREE THYROXINE 2021-07-08 [facility], [facility] 14:56:00 [facility] Center AMYLASE LEVEL 2021-07-08 [facility], [facility] x[facility] 14:56:00 [facility] Center LIPASE LEVEL 2021-07-08 [facility], [facility] x[facility] 14:56:00 [facility] COMPLETE BLOOD COUNT W/ 2021-07-08 [facility], [facility] DIFFERENTIAL 14:56:00 [facility] Center MAGNESIUM LEVEL 2021-07-08 [facility], [facility] 14:56:00 [facility] COMPREHENSIVE METABOLIC PANEL 2021-07-08 [facility], [facility] 14:56:00 [facility] GLUCOSE LEVEL 2021-07-08 [facility], [facility] xa 14:56:00 [facility] BLOOD UREA NITROGEN 2021-07-08 [facility], [facility] 14:56:00 [facility] ELECTROLYTE PANEL 2021-07-08 [facility], [facility] 14:56:00 [facility] SERUM CREATININE 2021-07-08 [facility], [facility] exas 14:56:00 [facility] .GLOMERULAR FILTRATION RATE 2021-07-08 [facility], [facility] 14:56:00 [facility] CALCIUM LEVEL TOTAL 2021-07-08 [facility], [facility] 14:56:00 [facility] ALBUMIN LEVEL 2021-07-08 [facility], [facility] xa 14:56:00 [facility] ALKALINE PHOSPHATASE 2021-07-08 [facility], [facility] 14:56:00 [facility] ALANINE AMINOTRANSFERASE 2021-07-08 [facility], [facility] 14:56:00 [facility] ASPARTATE AMINOTRANSFERASE 2021-07-08 [facility], [facility] 14:56:00 [facility] TOTAL PROTEIN 2021-07-08 [facility], [facility] x[facility] 14:56:00 [facility] FRACTIONATED BILIRUBIN 2021-07-08 [facility], [facility] 14:56:00 [facility] Results CBC 2021-07-08 [facility], [facility] xa 14:56:00 [facility] MANUAL DIFFERENTIAL 2021-07-08 [facility], [facility] 14:56:00 [facility] THYROID STIMULATING HORMONE 2021-06-24 [facility] 17:24:00 [facility] FREE THYROXINE 2021-06-24 Alhalabi, [facility] xas 17:24:00 [facility] AMYLASE LEVEL 2021-06-24 [facility] 17:24:00 [facility] LIPASE LEVEL 2021-06-24 [facility] 17:24:00 [facility] COMPLETE BLOOD COUNT W/ 2021-06-24 Roderick [facility] DIFFERENTIAL 17:24:00 [facility] MAGNESIUM LEVEL 2021-06-24 [facility] 17:24:00 [facility] COMPREHENSIVE METABOLIC PANEL 2021-06-24 Roderick [facility] 17:24:00 [facility] GLUCOSE LEVEL 2021-06-24 [facility] 17:24:00 [facility] BLOOD UREA NITROGEN 2021-06-24 [facility] 17:24:00 [facility] ELECTROLYTE PANEL 2021-06-24 [facility] 17:24:00 [facility] SERUM CREATININE 2021-06-24 [facility] 17:24:00 [facility] .GLOMERULAR FILTRATION RATE 2021-06-24 Roderick [facility] 17:24:00 [facility] CALCIUM LEVEL TOTAL 2021-06-24 [facility] 17:24:00 [facility] ALBUMIN LEVEL 2021-06-24 [facility] 17:24:00 [facility] ALKALINE [facility]OSPHATASE 2021-06-24 [facility] 17:24:00 [facility] ALANINE AMINOTRANSFERASE 2021-06-24 [facility] 17:24[facility]00 [facility] ASPARTATE AMINOTRANSFERASE 2021-06-24 [facility] 17:24:00 [facility] TOTAL PROTEIN 2021-06-24 [facility] 17:24:00 [facility] FRACTIONATED BILIRUBIN 2021-06-24 [facility] 17:24:00 [facility] Results CBC 2021-06-24 [facility] 17:24:00 [facility] MANUAL DIFFERENTIAL 2021-06-24 [facility] 17:24:00 [facility] ALBUMIN LEVEL 2021-06-18 [facility] 10:12[facility]00 [facility] COMPLETE BLOOD COUNT W/ 2021-06-18 [facility] DIFFERENTIAL 10:12:00 [facility] COMPREHENSIVE METABOLIC PANEL 2021-06-18 [facility] 10:12:00 [facility] GLUCOSE LEVEL 2021-06-18 [facility] 10:12:00 [facility] BLOOD UREA NITROGEN 2021-06-18 [facility] 10:12:00 [facility] ELECTROLYTE PANEL 2021-06-18 [facility] 10:12[facility]00 [facility] SERUM CREATININE 2021-06-18 [facility] 10:12:00 [facility] .GLOMERULAR FILTRATION RATE 2021-06-18 Teja Andreina [facility] 10:12:00 [facility] CALCIUM LEVEL TOTAL 2021-06-18 [facility] 10:12:00 [facility] ALKALINE PHOSPHATASE 2021-06-18 [facility] 10:12:00 [facility] ALANINE AMINOTRANSFERASE 2021-06-18 [facility]jaU[facility] 10:12:00 [facility] ASPARTATE AMINOTRANSFERASE 2021-06-18 [facility] 10:12:00 [facility] TOTAL PROTEIN 2021-06-18 [facility] 10:12:00 [facility] FRACTIONATED BILIRUBIN 2021-06-18 [facility] 10:12:00 [facility] Results CBC 2021-06-18 [facility] 10:12:00 [facility] MANUAL DIFFERENTIAL 2021-06-18 Teja [facility] 10:12:00 [facility] IR NEPHROSTOMY EXCHANGE 60 2021-06-17 Tay Holliday [facility] 14:26:12 [facility] GENERAL LABORATORY ADD ON 2021-06-17 [facility] 12:38:00 Valentin [facility] ALBUMIN LEVEL 2021-06-17 [facility] 08:09:00 [facility] COMPLETE BLOOD COUNT W/ 2021-06-17 [facility] DIFFERENTIAL 08:09:00 [facility] COMPREHENSIVE METABOLIC PANEL 2021-06-17 [facility] 08:09:00 [facility] GLUCOSE LEVEL 2021-06-17 [facility] 08:09:00 [facility] BLOOD UREA NITROGEN 2021-06-17 [facility] 08:09:00 [facility] ELECTROLYTE PANEL 2021-06-17 [facility] 08:09:00 [facility] SERUM CREATININE 2021-06-17 [facility] 08:09:00 [facility] .GLOMERULAR FILTRATION RATE 2021-06-17 Andreina Wilkerson [facility] 08:09:00 [facility] CALCIUM LEVEL TOTAL 2021-06-17 [facility] 08:09:00 [facility] ALKALINE PHOSPHATASE 2021-06-17 [facility] 08:09:00 [facility] ALANINE AMINOTRANSFERASE 2021-06-[address] [facility] 08:09:00 [facility] ASPARTATE AMINOTRANSFERASE 2021-06-17 Teja Andreina [facility] 08:09:00 [facility] TOTAL PROTEIN 2021-06-17 [facility] 08:09:00 [facility] FRACTIONATED BILIRUBIN 2021-06-17 [facility] 08:09:00 [facility] Results CBC 2021-06-17 [facility] 08:09:00 [facility] MANUAL DIFFERENTIAL 2021-06-17 [facility] 08:09:00 [facility] PHOSPHORUS LEVEL 2021-06-17 [facility] 08:09:00 [facility] MAGNESIUM LEVEL 2021-06-17 [facility] 08:09:00 [facility] RESPIRATORY VIRAL MULTIPLEX 2021-06-17 Teo [facility] PCR PANEL, NASOPHARYNGEAL 01:31:00 MD Wray [facility] ALBUMIN LEVEL 2021-06-16 [facility] 07:22:00 [facility] COMPLETE BLOOD COUNT W/ 2021-06-16 [facility] DIFFERENTIAL 07:22:00 [facility] COMPREHENSIVE METABOLIC PANEL 2021-06-16 [facility] 07:22:00 [facility] GLUCOSE LEVEL 2021-06-16 [facility] 07:22:00 [facility] BLOOD UREA NITROGEN 2021-06-16 [facility] 07:22:00 [facility] ELECTROLYTE PANEL 2021-06-16 [facility] [place] 07:22:00 [facility] SERUM CREATININE 2021-06-16 [facility] 07:22:00 [facility] .GLOMERULAR FILTRATION RATE 2021-06-16 Teja [facility] 07:22:00 [facility] CALCIUM LEVEL TOTAL 2021-06-16 [facility] 07:22:00 [facility] ALKALINE [facility]OSPHATASE 2021-06-16 [facility] 07:22[facility]00 [facility] ALANINE AMINOTRANSFERASE 2021-06-16 [facility] 07:22:00 [facility] ASPARTATE AMINOTRANSFERASE 2021-06-16 [facility] 07:22:00 [facility] TOTAL PROTEIN 2021-06-16 [facility] 07:22:00 [facility] FRACTIONATED BILIRUBIN 2021-06-16 [facility] 07:22:00 [facility] Results CBC 2021-06-16 [facility] 07:22:00 [facility] MANUAL DIFFERENTIAL 2021-06-16 [facility] 07:22:00 [facility] OSI CT ABDOMEN AND PELVIS 2021-06-16 [facility] 04:50:00 [facility] POC CHEM 8 2021-06-15 Emmanuelle Lowe [facility] xa 17:33:00 [facility] COVID-19 (SARS-COV-2) 2021-06-15 Tay Holliday [facility] ASYMPTOMATIC-LT 17:16:00 [facility] BLOODCULTURE 2021-06-15 Tay Holliday [facility] 15:15:00 [facility] URINE CULTURE 2021-06-15 Tay Holliday [facility] 15:15:00 [facility] LACTIC ACID, VENOUS 2021-06-15 Tay Holliday [facility] 15:15:00 [facility] C REACTIVE PROTEIN 2021-06-15 Tay Holliday [facility] 15:15:00 [facility] PROCALCITONIN 2021-06-15 Tay Holliday [facility] 15:15:00 [facility] URINALYSIS WITH MICROSCOPIC 2021-06-15 Tay Holliday [facility] IF INDICATED 15:15:00 [facility] URINALYSIS MICROSCOPIC 2021-06-15 Tay Holliday [facility] 15:15:00 [facility] COMPLETE BLOOD COUNT W/ 2021-06-15 Tay Holliday [facility] DIFFERENTIAL 13:23:00 [facility] COMPREHENSIVE METABOLIC PANEL 2021-06-15 Tay Holliday [facility] 13:23:00 [facility] MAGNESIUM LEVEL 2021-06-15 Tay Holliday [facility] 13:23:00 [facility] PHOSPHORUS LEVEL 2021-06-15 Tay Holliday [facility] 13:23:00 [facility] PROTHROMBIN TIME 2021-06-15 Tay Holliday [facility] 13:23:00 [facility] APTT 2021-06-15 Tay Holliday [facility] 13:23:00 [facility] Results CBC 2021-06-15 Tay Holliday [facility] 13:23:00 [facility] MANUAL DIFFERENTIAL 2021-06-15 Tay Holliday [facility] 13:23:00 [facility] GLUCOSE LEVEL 2021-06-15 Tay Holliday [facility] 13:23:00 [facility] BLOOD UREA NITROGEN 2021-06-15 Tay Holliday [facility] 13:23:00 [facility] ELECTROLYTE PANEL 2021-06-15 Tay Holliday [facility] 13:23:00 [facility] SERUM CREATININE 2021-06-15 Tay Holliday [facility] 13:23:00 [facility] .GLOMERULAR FILTRATION RATE 2021-06-15 Tay Holliday [facility] 13:23:00 [facility] CALCIUM LEVEL TOTAL 2021-06-15 Tay Holliday [facility] 13:23:00 [facility] ALBUMIN LEVEL 2021-06-15 Tay Holliday [facility] 13:23:00 [facility] ALKALINE PHOSPHATASE 2021-06-15 Tay Holliday [facility] 13:23:00 [facility] ALANINE AMINOTRANSFERASE 2021-06-15 Tay Holliday [facility] 13:23:00 [facility] ASPARTATE AMINOTRANSFERASE 2021-06-15 Tay Holliday [facility] 13:23:00 [facility] TOTAL PROTEIN 2021-06-15 Tay Holliday [facility] 13:23:00 [facility] FRACTIONATED BILIRUBIN 2021-06-15 Tay Holliday [facility] 13:23:[address] [facility] [address] CHEST ABDOMEN PELVIS W 2021-06-07 [facility], [facility] CONTRAST 17:52:55 [facility] NM BONE SCAN WHOLE BODY 2021-06-06 [facility], [facility] [facility] 17:31:00 [facility] COMPLETE BLOOD COUNT W/ 2021-06-06 [facility], [facility] DIFFERENTIAL 14:58:00 [facility] COMPREHENSIVE METABOLIC PANEL 2021-06-06 [facility] 14:58:00 [facility] FREE THYROXINE 2021-06-06 [facility], [facility] [place] 14:58:00 [facility] MAGNESIUM LEVEL 2021-06-06 [facility], [facility] [place] 14:58:00 [facility] THYROID STIMULATING HORMONE 2021-06-06 [facility], [facility] 14:58:00 [facility] ADRENOCORTICOTROPIC HORMONE 2021-06-06 [facility], [facility] 14:58:00 [facility] C REACTIVE PROTEIN 2021-06-06 [facility], [facility] 14:58:00 [facility] CORTISOL 2021-06-06 [facility], [facility] [place] 14:58:00 [facility] SEDIMENTATION RATE 2021-06-06 [facility], [facility] NON-AUTOMATED 14:58:00 [facility] AMYLASE LEVEL 2021-06-06 [facility], [facility] [place] 14:58:00 [facility] LIPASE LEVEL 2021-06-06 [facility], [facility] [place] 14:58:00 [facility] Results CBC 2021-06-06 [facility] 14:58:00 [facility] MANUAL DIFFERENTIAL 2021-06-06 [facility] 14:58:00 [facility] GLUCOSE LEVEL 2021-06-06 [facility] 14:58:00 [facility] BLOOD UREA NITROGEN 2021-06-06 [facility], [facility] 14:58:00 [facility] ELECTROLYTE PANEL 2021-06-06 [facility] 14:58:00 [facility] SERUM CREATININE 2021-06-06 [facility], [facility] [place]as 14:58:00 [facility] .GLOMERULAR FILTRATION RATE 2021-06-06 [facility], [facility] 14:58:00 [facility] CALCIUM LEVEL TOTAL 2021-06-06 [facility], [facility] 14:58:00 [facility] ALBUMIN LEVEL 2021-06-06 [facility] 14:58:00 [facility] ALKALINE PHOSPHATASE 2021-06-06 [facility] 14:58:00 [facility] ALANINE AMINOTRANSFERASE 2021-06-06 [facility] 14:58:00 [facility] ASPARTATE AMINOTRANSFERASE 2021-06-06 [facility], [facility] 14:58:00 [facility] TOTAL PROTEIN 2021-06-06 [facility], [facility] 14:58:00 [facility] FRACTIONATED BILIRUBIN 2021-06-06 [facility], [facility] 14:58:00 [facility] THYROID STIMULATING HORMONE 2021-05-27 [facility] 15:01:00 [facility] FREE THYROXINE 2021-05-27 [facility], [facility] [place] 15:01:00 [facility] AMYLASE LEVEL 2021-05-27 [facility], [facility] [place] 15:01:00 [facility] LIPASE LEVEL 2021-05-27 [facility], [facility] [place] 15:01:00 [facility] COMPLETE BLOOD COUNT W/ 2021-05-27 [facility], [facility] DIFFERENTIAL 15:01:00 [facility] MAGNESIUM LEVEL 2021-05-27 [facility], [facility] [place] 15:01:00 [facility] COMPREHENSIVE METABOLIC PANEL 2021-05-27 [facility], [facility] 15:01:00 [facility] GLUCOSE LEVEL 2021-05-27 [facility], [facility] [place] 15:01:00 [facility] BLOOD UREA NITROGEN 2021-05-27 [facility], [facility] 15:01:00 [facility] ELECTROLYTE PANEL 2021-05-27 [facility], [facility] 15:01:00 [facility] SERUM CREATININE 2021-05-27 [facility], [facility] [place] 15:01:00 [facility] .GLOMERULAR FILTRATION RATE 2021-05-27 [facility], [facility] 15:01:00 [facility] CALCIUM LEVEL TOTAL 2021-05-27 [facility], [facility] 15:01:00 [facility] ALBUMIN LEVEL 2021-05-27 [facility], [facility] 15:01:00 [facility] ALKALINE PHOSPHATASE 2021-05-27 [facility], [facility] 15:01:00 [facility] ALANINE AMINOTRANSFERASE 2021-05-27 [facility], [facility] 15:01:00 [facility] ASPARTATE AMINOTRANSFERASE 2021-05-27 [facility], [facility] 15:01:00 [facility] Center TOTAL PROTEIN 2021-05-27 [facility], [facility] [place] 15:01:00 [facility] FRACTIONATED BILIRUBIN 2021-05-27 [facility], [facility] 15:01:00 [facility] Center Results CBC 2021-05-27 [facility], [facility] [place] 15:01:00 [facility] Center MANUAL DIFFERENTIAL 2021-05-27 [facility] [place] 15:01:00 [facility] COMPLETE BLOOD COUNT W/ 2021-05-13 [facility], [facility] DIFFERENTIAL 15:31:00 [facility] MAGNESIUM LEVEL 2021-05-13 [facility], [facility] [place] 15:31:00 [facility] COMPREHENSIVE METABOLIC PANEL 2021-05-13 [facility], [facility] 15:31:00 [facility] Results CBC 2021-05-13 [facility], [facility] [place] 15:31:00 [facility] Center MANUAL DIFFERENTIAL 2021-05-13 [facility], [facility] [place] 15:31:00 [facility] Center GLUCOSE LEVEL 2021-05-13 [facility], [facility] [place] 15:31:00 [facility] BLOOD UREA NITROGEN 2021-05-13 [facility], [facility] 15:31:00 [facility] ELECTROLYTE PANEL 2021-05-13 [facility], [facility] 15:31:00 [facility] SERUM CREATININE 2021-05-13 [facility], [facility] [place] 15:31:00 [facility] .GLOMERULAR FILTRATION RATE 2021-05-13 [facility], [facility] 15:31:00 [facility] CALCIUM LEVEL TOTAL 2021-05-13 [facility], [facility] 15:31:00 [facility] Center ALBUMIN LEVEL 2021-05-13 [facility], [facility] [place] 15:31:00 [facility] Center ALKALINE PHOSPHATASE 2021-05-13 [facility], [facility] 15:31:00 [facility] ALANINE AMINOTRANSFERASE 2021-05-13 [facility], [facility] 15:31:00 [facility] Center ASPARTATE AMINOTRANSFERASE 2021-05-13 [facility], [facility] 15:31:00 [facility] TOTAL PROTEIN 2021-05-13 [facility], [facility] [place] 15:31:00 [facility] FRACTIONATED BILIRUBIN 2021-05-13 [facility], [facility] 15:31:00 [facility] Plan of Care Planned Activity Planned Date Details Comments Source Future Scheduled 2022-11-[address] [facility] 00:00:00 (Season Ended) [code = [facility] INFLUENZA VACCINE (Season Ended)] Future Scheduled 2022-06-30 COVID-19 Vaccination [facility] [place] [facility] 12:55:40 (4 - Booster for [facility] Pfizer series) [code = Cente r COVID-19 Vaccination (4 - Booster for Pfizer series)] Future Scheduled 2022-05-01 COVID-19 Vaccination [facility] [place] [facility] 14:20:42 (4 - Booster for [facility] Pfizer series) [code = Cente r COVID-19 Vaccination (4 - Booster for Pfizer series)] Future Scheduled 2022-03-[address] [facility] 00:00:00 (12+) [code = Medical Center DEPRESSION SCREENING (12+)] Future Scheduled 2022-03-08 FALLS RISK SCREENING [facility] 00:00:00 [code = FALLS RISK Medical C enter SCREENING] Future Scheduled 2022-03-[address] [...] - Booster for Pfizer series)] Future Scheduled 2021-02-09 COVID-19 VACCINE (4 - [facility] [...] FIRST YEAR if no IPPE)] Future Scheduled 2014-04-[address] [...] Center VACCINES (1 of 2)] Future Scheduled 1998 SHINGLES VACCINES ([address] [facility] 00:00:00 of 2) [code = SHINGLES Medic al Center VACCINES (1 of 2)] Future Scheduled 1967 DTAP/TDAP/TD VACCINES [facility] 00:00:00 (1 - Tdap) [code = Medical C enter DTAP/TDAP/TD VACCINES (1 - Tdap)] Future Scheduled 1967 DTAP/TDAP/TD VACCINES [facility] 00:00:00 (1 - Tdap) [code = Medical C enter DTAP/TDAP/TD VACCINES (1 - Tdap)] Future Scheduled 1966 HEPATITIS C SCREENING [facility] 00:00:00 [code = HEPATITIS C Medical Center SCREENING] Future Scheduled 1966 HEPATITIS C SCRE[facility]ING [facility] 00:00:00 [code = HEPATITIS C Medical Center SCREENING] Future Scheduled [address] [facility] 00:00:00 Counseling and Medical Cente r Screening (12+) [code = Tobacco Cessation Counseling and Screening (12+)] Future Scheduled [address] [facility] 00:00:00 Counseling and Medical Cente r Screening (12+) [code = Tobacco Cessation Counseling and Screening (12+)] Future Scheduled 1954 PNEUMOCOCCAL 65+ YRS [facility] 00:00:00 (1 - PCV) [code = Medical Ce nter PNEUMOCOCCAL 65+ YRS (1 - PCV)] Future Scheduled [address] [facility] 00:00:00 (combo) [code = CT Medical C enter Colonography (combo)] Future Scheduled [address] [facility] 00:[facility]:00 malignant neoplasm of Medica l Center colon (procedure) [code = 615908233] Future Scheduled [address] [facility] 00:00:00 malignant neoplasm of Medica l Center colon (procedure) [code = 725737832] Future Scheduled [address] [facility] 00:00:00 malignant neoplasm of Medica l Center colon (procedure) [code = 154779315] Future Scheduled [address] [facility] 00:00:00 malignant neoplasm of Medica l Center colon (procedure) [code = 140490751] Future Scheduled 1948 Sigmoidoscopy [code [facility] S[facility]oscopy] Medical Cente r Future Scheduled [address] [facility] 00:00:00 (combo) [code = CT Medical C enter Colonography (combo)] Future Scheduled [address] [facility] 00:00:00 malignant neoplasm of Medica l Center colon (procedure) [code = 665286751] Future Scheduled [address] [facility] 00:00:00 malignant neoplasm of Medica l Center colon (procedure) [code = 742342462] Future Scheduled [address] [facility] 00:00:00 malignant neoplasm of Medica l Center colon (procedure) [code = 765974003] Future Scheduled [address] [facility] 00:00:00 malignant neoplasm of Medica [facility] colon (procedure) [code = 229388784] Future Scheduled 1948 Sigmoidoscopy [code [facility] Sigmoidoscopy] Medical Cente r Encounters Start End Encounter Admission Attending Care Care Encounter Source Date/Time Date/Time Type Type Clinicians Facility Department ID 2022-05-15 Outpatient SYSTEM, [facility] KHANH [id number] 06:15:04 PROVIDER Mitchell o n 2022-01-20 Outpatient SYSTEM, [facility] MDA [id number] 10:55:22 PROVIDER Mitchell o n 2021-06-23 Outpatient SYSTEM, [facility] KHANH [id number] 13:17:44 PROVIDER Mitchell o n 2020-04-03 Outpatient SYSTEM, MDA MDA [id number] 13:49:46 PROVIDER Mitchell o n 2020-02-19 Outpatient SYSTEM, KHANH CASSIDY [id number] 11:20:35 PROVIDER Mitchell o n 2020-01-12 Outpatient SYSTEM, [facility] K[facility] [id number] 11:52:46 PROVIDER Mitchell o n 2019-12-12 Outpatient [facility] MDA [id number] 12:59:29 Anderso n 2019-12-04 Outpatient SYSTEM, [facility] K[facility]H [id number] 10:35:21 PROVIDER Mitchell o n 2019-11-01 Inpatient ER [facility] [id number] [facility] 18:58:00 LILIBETH 2022-06-30 2022-06-30 Telephone Roderick 1.2.840.1 [id number] [facility] 15:30:00 16:00:00 Joan 95923.1.1 ity of 3.412.2.7 [place] .3.254311 .8 [facility] 2022-06-26 2022-06-26 Chloe Larsen 1.2.840.1 [id number] [facility] 00:00:00 00:00:00 Management 18377.1.1 i ty of 3.412.2.7 [place] .3.759517 MD Bell8 [facility] 2022-06-25 2022-06-25 Documentat Aljeremias, 1.2.840.1 [id number] Univers 00:00:00 00:00:00 ion Joan 66808.1.1 ity of 3.412.2.7 [place] .3.204412 MD Banuelos [facility] 2022-06-22 2022-06-22 Case Medardo, 1.2.840.1 [id number] [facility] 00:00:00 00:00:00 Management Michaelomar 62333.1.1 ity of P 3.412.2.7 [place] .3.525854 MD Bell8 [facility] 2022-06-22 2022-06-22 Orders Delvis, 1.2.840.1 [id number] [facility] 00:00:00 00:00:00 Only Carina 06136.1.1 ity of 3.412.2.7 [place] .3.491226 MD Banuelos [facility] 2022-06-22 2022-06-22 Case Medardo, 1.2.840.1 [id number] Univers 00:00:00 00:00:00 Management Michaelomar 87298.1.1 ity of P 3.412.2.7 [place] .3.002868 MD Banuelos [facility] 2022-06-19 2022-06-19 Follow-Up Roderick, 1.2.840.1 [id number] Univers 12:00:00 13:01:04 Joan 28571.1.1 ity of 3.412.2.7 [place] .3.509325 MD Banuelos [facility] 2022-06-19 2022-06-19 Outpatient EL RODERICK, [facility] [id number] 11:39:09 13:01:04 JOAN ball 2022-06-19 2022-06-19 Travel 1.2.840.1 1.2.837.187 [id number] Univers 00:00:00 00:00:00 94617.1.1 350.1.13.41 ity of 3.412.2.[place].698 [place] .[place].778[place] 084.8 MD Bell8 [facility] 2022-06-19 2022-06-19 Documentat Piper, 1.2.840.1 [id number] Univers 00:00:00 00:00:00 ion Tony Y 54633.1.1 it y of 3.412.2.7 [place] .3.766977 MD Banuelos [facility] 2022-06-18 2022-06-18 Outpatient DANNI QUEEN [facility] [id number] 14:42:08 14:49:51 CARINA Wrayers o n 2022-06-18 2022-06-18 [facility] Delvis 1.2.840.1 [id number] [facility] 11:55:00 14:45:00 Procedure Carina 26081.1.1 it y of 3.412.2.7 [place] .3.524774 MD Banuelos [facility] 2022-06-18 2022-06-18 Outpatient DANNI QUEEN [facility] [id number] [place] 12:23:32 12:23:32 CARINA Wrayers o quinn 2022-06-18 2022-06-18 Travel 1.2.840.1 1.2.463.943 [id number] [facility] 00:00:00 00:00:00 20235.1.1 350.1.13.41 ity of 3.412.2.[place].698 [place].285[place] 084.8 MD Banuelos [facility] 2022-06-12 2022-06-12 [facility] Christophe Cantor 1.2.840.1 1 [id number] [facility] 12:45:00 23:59:00 Encounter Pillo Mendoza 52656.1.1 ity of 3.412.2.7 [place] .3.655645 MD Banuelos [facility] 2022-06-12 2022-06-12 Outpatient BONI [facility] [id number] 12:45:00 23:59:00 CHRISTOPHE Wrayers o quinn 2022-06-12 2022-06-12 Michael Queen, 1.2.840.1 [id number] Univers 00:00:00 00:00:00 Only Carina 20961.1.1 ity of 3.412.2.7 [place] .3.875526 MD Banuelos [facility] 2022-06-12 2022-06-12 Travel 1.2.840.1 1.2.647.491 [id number] Univers 00:00:00 00:00:00 65248.1.1 350.1.13.41 ity of 3.412.2.7 [place].698 [place]3.076[place] 084.8 MD Banuelos [facility] 2022-06-12 2022-06-12 Telephone Dayna, 1.2.840.1 [id number] Univers 00:00:00 00:00:00 Jose 63320.1.1 ity of 3.412.2.7 [place] .3.663074 MD Banuelos [facility] 2022-06-11 2022-06-11 Case Batres, 1.2.840.1 [id number] Univers 00:00:00 00:00:00 Management Nainomar 79458.1.1 ity of P 3.412.2.7 [place] .3.347284 MD Banuelos [facility] 2022-06-11 2022-06-11 Michael Queen, 1.2.840.1 [id number] Univers 00:00:00 00:00:00 Only Carina 47007.1.1 ity of 3.412.2.7 [place] .3.423819 MD Banuelos [facility] 2022-06-10 2022-06-10 Sanford Kunz, 1.2.840.1 [id number] Univers 00:00:00 00:00:00 Abhishek 84680.1.1 ity of 3.412.2.7 [place] .3.453815 MD Banuelos [facility] 2022-06-10 2022-06-10 Michael Fernandez, 1.2.840.1 [id number] Univers 00:00:00 00:00:00 Only Altagracia Simpson 53212.1.1 ity of 3.412.2.7 [place] .3.112105 MD Bell8 [facility] 2022-06-05 2022-06-05 [facility], 1.2.840.1 [id number] [facility] 09:45:00 23:59:00 Encounter Joan 74620.1.1 it y of 3.412.2.7 [place] .3.269364 MD Bell8 [facility] 2022-06-05 2022-06-05 Outpatient [facility] [id number] [place] 09:45:00 23:59:00 JOAN ball 2022-06-05 2022-06-05 Outpatient [facility] [id number] [place] 14:25:44 17:06:34 JOAN ball 2022-06-05 2022-06-05 [facility] Joan 1.2.840.1 [id number] [facility] 12:15:00 17:06:34 LaylaQueenelder Mariely 19588.1.1 ity of 3.412.2.7 [place] .3.775106 MD Bell8 [facility] 2022-06-05 2022-06-05 Outpatient [facility] [place] [id number] [place] 11:34:35 14:20:56 JOAN ball 2022-06-05 2022-06-05 Follow-Up Teresadontaebryant Joan 1.2.840.1 [id number] [facility] 11:00:00 14:20:56 Baylee Calle 99894.1.1 ity of 3.412.2.7 [place] .3.019040 MD Bell8 [facility] 2022-06-05 2022-06-05 Travel 1.2.840.1 1.2.013.248 [id number] [facility] 00:00:00 00:00:00 04881.1.1 350.1.13.41 ity of 3.412.2.7 [place]7.3.698 [place].4838[place] 084.8 MD Banuelos [facility] 2022-06-03 2022-06-03 [facility] Delvis, 1.2.840.1 [id number] Univers 00:00:00 00:00:00 Only Carina 46665.1.1 ity of 3.412.2.7 [place] .3.678958 MD Banuelos [facility] 2022-05-29 2022-05-29 [facility], 1.2.840.1 [id number] [facility] 11:45:00 23:59:00 Encounter Joan 54097.1.1 it y of 3.412.2.7 [place] .3.671222 MD Banuelos [facility] 2022-05-29 2022-05-29 Outpatient R[facility]ERICK [facility] [place] [id number] [place] 11:45:00 23:59:00 JOAN ball 2022-05-29 2022-05-29 [facility], 1.2.840.1 [id number] [facility] 13:30:00 17:20:35 Joan 09444.1.1 ity of 3.412.2.7 [place] .3.759566 MD Banuelos [facility] 2022-05-29 2022-05-29 Outpatient RODERICK [facility] [id number] [place] 12:24:35 17:20:35 JOAN ball 2022-05-29 2022-05-29 [facility], 1.2.840.1 [id number] [facility] 00:00:00 00:00:00 Maranda Kitchen 81093.1.1 it y of 3.412.2.7 [place] .3.754111 MD Banuelos [facility] 2022-05-29 2022-05-29 Travel 1.2.840.1 1.2.445.815 [id number] [facility] 00:00:00 00:00:00 71879.1.1 350.1.13.41 ity of 3.412.2.7 [place]7.3.698 [place] .3.398599 084.8 MD Banuelos [facility] 2022-05-27 2022-05-27 Documentat Ussin, 1.2.840.1 [id number] [facility] 00:00:00 00:00:00 ion Vivek G 18958.1.1 ity of 3.412.2.7 [place] .3.006207 MD Banuelos [facility] 2022-05-26 2022-05-26 Michael Queen, 1.2.840.1 [id number] Univers 00:00:00 00:00:00 Only Carina 73112.1.1 ity of 3.412.2.7 [place] .3.407559 MD Banuelos [facility] 2022-05-25 2022-05-25 Michael Queen, 1.2.840.1 [id number] Univers 00:00:00 00:00:00 Only Carina 30716.1.1 ity of 3.412.2.7 [place] .3.079889 MD Banuelos [facility] 2022-05-22 2022-05-22 Michael Queen, 1.2.840.1 [id number] Univers 00:00:00 00:00:00 Only Carina 61946.1.1 ity of 3.412.2.7 [place] .3.910169 MD Banuelos [facility] 2022-05-20 2022-05-20 Michael Queen 1.2.840.1 [id number] Univers 00:00:00 00:00:00 Only Carina 80244.1.1 ity of 3.412.2.7 [place] .3.988877 MD Banuelos [facility] 2022-05-19 2022-05-19 Deon Queen, 1.2.840.1 [id number] Univers 11:30:00 23:59:00 Encounter Carina 98831.1.1 it y of 3.412.2.7 [place] .3.173507 MD Banuelos [facility] 2022-05-19 2022-05-19 Outpatient DANNI QUEEN [facility] [id number] 11:30:00 23:59:00 CARINA Mitchell giuseppe ball 2022-05-19 2022-05-19 Carina Garcia 1.2.840.1 [id number] [facility] 13:30:00 14:30:00 MelvinIgor tinoco Rah 57732.1.1 ity of 3.412.2.7 [place] .3.148899 MD Bell8 [facility] 2022-05-19 2022-05-19 Outpatient DANNI QUEEN [facility] [id number] 13:40:39 13:40:39 CARINA Mitchellajay ball 2022-05-19 2022-05-19 Follow-Up Roderick 1.2.840.1 [id number] [facility] 13:00:00 13:37:34 Joan 75565.1.1 ity of 3.412.2.7 [place] .3.980033 MD Bell8 [facility] 2022-05-19 2022-05-19 Outpatient RODERICK [facility] [id number] 11:58:28 13:37:34 JOAN Mitchellajay ball 2022-05-19 2022-05-19 Chloe Larsen 1.2.840.1 [id number] [facility] 00:00:00 00:00:00 Management 44429.1.1 i ty of 3.412.2.7 [place] .3.640548 [facility] 2022-05-19 2022-05-19 Michael Queen, 1.2.840.1 [id number] Univers 00:00:00 00:00:00 Only Carina 92206.1.1 ity of 3.412.2.7 [place] .3.303185 MD Bell8 [facility] 2022-05-19 2022-05-19 Travel 1.2.840.1 1.2.570.041 [id number] [facility] 00:00:00 00:00:00 56373.1.1 350.1.13.41 ity of 3.412.2.7 [place].3.698 [place] .[place].815144 084.8 MD Bell8 [facility] 2022-05-13 2022-05-13 Michael RoyСветлана 1.2.840.1 [id number] [facility] 00:00:00 00:00:00 Only 77355.1.1 ity of 3.412.2.7 [place] .3.318583 MD Bell8 [facility] 2022-05-12 2022-05-12 Outpatient DANNI VAUGHN [facility] [place] [id number] 15:01:14 15:01:14 JOAN ball 2022-05-12 2022-05-12 Telemedicdamon Vaughn, 1.2.840.1 [id number] [facility] 14:30:00 15:00:00 dex Howell 67071.1.1 ity of 3.412.2.7 [place] .3.893857 MD Bell8 [facility] 2022-05-12 2022-05-12 Michael Queen 1.2.840.1 [id number] Univers 00:00:00 00:00:00 Only Carina 13631.1.1 ity of 3.412.2.7 [place] .3.619568 MD Banuelos [facility] 2022-05-12 2022-05-12 Michael Hernandez, 1.2.840.1 [id number] [facility] 00:00:00 00:00:00 Only Lilibeth Velez 41802.1.1 it y of 3.412.2.7 [place] .3.939613 MD Bell8 [facility] 2022-05-11 2022-05-11 Outpatient DANNI MAYERS [facility] MDA [id number] 15:16:07 15:43:51 MEGAN ball 2022-05-11 2022-05-11 Michael Queen 1.2.840.1 [id number] Univers 00:00:00 00:00:00 Only Carina 46510.1.1 ity of 3.412.2.7 [place] .3.728338 MD Bell8 [facility] 2022-05-08 2022-05-08 Michael Queen, 1.2.840.1 [id number] Univers 00:00:00 00:00:00 Only Carina 12748.1.1 ity of 3.412.2.7 [place] .3.038604 MD Bell8 [facility] 2022-05-01 2022-05-07 Inpatient ER [facility] [id number] [facility] 19:05:00 11:14:00 , JAN 2022-05-01 2022-05-07 [facility] [facility] [id number] [facility] 19:05:00 11:14:00 [facility] [place] In [facility], JanRick Trammell 2022-05-01 2022-05-01 Telephone [facility] [id number] [facility] St 00:00:00 00:00:00 Mak isabel [facility] 2022-05-01 2022-05-01 Michael Queen, 1.2.840.1 [id number] Univers 00:00:00 00:00:00 Only Carina 27806.1.1 ity of 3.412.2.7 [place] .3.064345 MD [facility] 2022-05-01 2022-05-01 Telephone Ana, 1.2.840.1 [id number] Univers 00:00:00 00:00:00 Bárbara S 38701.1.1 it y of 3.412.2.7 [place] .3.861855 MD [facility] 2022-05-01 2022-05-01 Telephone [place], 1.2.840.1 [id number] Univers 00:00:00 00:00:00 Bárbara S 07289.1.1 it y of 3.412.2.7 [place] .3.453946 .8 [facility] 2022-04-29 2022-04-29 [facility] Shaun Resendiz 1.2.840.1 [id number] 11 [id number] Univers 12:46:23 23:59:00 Encounter 00626.1.1 it y of 3.412.2.7 [place] .3.184344 MD Bell8 [facility] 2022-04-29 2022-04-29 [facility] SHAUN RESENDIZ 1.2.840.1 [id number] 11 [id number] [place] 12:46:23 23:59:00 Encounter 15553.1.1 An derso 3.412.2.7 n .3.218848 .8 2022-04-29 2022-04-29 Documentat Alhalabi, 1.2.840.1 [id number] 1 [id number] Univers 00:00:00 00:00:00 ion Joan 00935.1.1 ity of 3.412.2.7 [place] .3.278808 MD Bell8 [facility] 2022-04-29 2022-04-29 Documentat Mach, 1.2.840.1 [id number] 785 [id number] Univers 00:00:00 00:00:00 ion Isabel 37094.1.1 ity of 3.412.2.7 [place] .3.612459 MD Bell8 [facility] 2022-04-29 2022-04-29 Travel 1.2.840.1 1.2.453.061 0253 [id number] Univers 00:00:00 00:00:00 74446.1.1 350.1.13.41 ity of 3.412.2.7 [place].3.698 [place]3.439218 084.8 MD Bell8 [facility] 2022-04-29 2022-04-29 Documentat Alhalabi, 1.2.840.1 [id number] 1 [id number] Univers 00:00:00 00:00:00 ion Joan 26408.1.1 ity of 3.412.2.7 [place] .3.407265 MD [facility] 2022-04-29 2022-04-29 Documentat Mach, 1.2.840.1 [id number] Univers 00:00:00 00:00:00 ion Isabel 07242.1.1 ity of 3.412.2.7 [place] .3.413480 MD Bell8 [facility] 2022-04-29 2022-04-29 Travel 1.2.840.1 1.2.751.014 8879 [id number] Univers 00:00:00 00:00:00 73184.1.1 350.1.13.41 ity of 3.412.2.7 [place].3.698 [place]3.372529 084.8 MD [facility] 2022-04-28 2022-04-28 Michael Queen 1.2.840.1 [id number] Univers 00:00:00 00:00:00 Only Carina 61104.1.1 ity of 3.412.2.7 [place] .3.112391 MD [facility] 2022-04-28 2022-04-28 Telephone Ismaar Ricks 1.2.840.1 [id number] Univers 00:00:00 00:00:00 M 76407.1.1 ity of 3.412.2.7 [place] .3.222977 MD [facility] 2022-04-28 2022-04-28 Michael Queen 1.2.840.1 [id number] Univers 00:00:00 00:00:00 Only Carina 00909.1.1 ity of 3.412.2.7 [place] .3.674695 MD [facility] 2022-04-28 2022-04-28 Telephone Isamar Ricks 1.2.840.1 [id number] Univers 00:00:00 00:00:00 M 68197.1.1 ity of 3.412.2.7 [place] .3.584075 MD [facility] 2022-04-24 2022-04-24 [facility] [place], 1.2.840.1 [id number] Univers 11:45:00 23:59:00 Encounter Carina 09411.1.1 it y of 3.412.2.7 [place] .3.552486 MD Bell8 [facility] 2022-04-24 2022-04-24 [facility] [place], 1.2.840.1 [id number] Univers 11:45:00 23:59:00 Encounter Carina 43895.1.1 it y of 3.412.2.7 [place] .3.603760 MD Bell8 [facility] 2022-04-24 2022-04-24 Infusion Paula Queenika 1.2.840.1 [id number] Univers 13:15:00 15:25:06 Silvia Agustinil P 40426.1.1 ity of 3.412.2.7 [place] .3.277349 MD [facility] 2022-04-24 2022-04-24 Infusion DANNI Queen Carina 1.2.840.1 [id number] Univers 13:15:00 15:25:06 Silvia Agustinil P 34436.1.1 ity of 3.412.2.7 [place] .3.356663 MD [facility] 2022-04-24 2022-04-24 Travel 1.2.840.1 1.2.972.241 1583 [id number] Univers 00:00:00 00:00:00 13228.1.1 350.1.13.41 ity of 3.412.2.7 [place]7.3.698 [place] .3.857225 084.8 MD Bell8 [facility] 2022-04-24 2022-04-24 Travel 1.2.840.1 1.2.933.637 7305 [id number] Univers 00:00:00 00:00:00 65386.1.1 350.1.13.41 ity of 3.412.2.7 [place]7.3.698 [place] .3.675511 084.8 MD [facility] 2022-04-20 2022-04-20 [facility], 1.2.840.1 [id number] Univers 00:00:00 00:00:00 Only Carina 25899.1.1 ity of 3.412.2.7 [place] .3.622151 MD Bell8 [facility] 2022-04-20 2022-04-20 [facility], 1.2.840.1 [id number] Univers 00:00:00 00:00:00 Only Carina 20584.1.1 ity of 3.412.2.7 [place] .3.612238 MD [facility] 2022-04-18 2022-04-18 [facility] Carina 1.2.840.1 [id number] Univers 13:00:00 23:59:00 Encounter Dev Villasenor 06267.1.1 ity of 3.412.2.7 [place] .3.692984 MD [facility] 2022-04-18 2022-04-18 [facility] Paula Queenika 1.2.840.1 [id number] Univers 13:00:00 23:59:00 Encounter Dev Villasenor 59025.1.1 ity of 3.412.2.7 [place] .3.951292 MD [facility] 2022-04-18 2022-04-18 [facility], 1.2.840.1 [id number] Univers 00:00:00 00:00:00 Only Carina 13531.1.1 ity of 3.412.2.7 [place] .3.268428 MD [facility] 2022-04-18 2022-04-18 Travel 1.2.840.1 1.2.942.907 8437 [id number] Univers 00:00:00 00:00:00 11063.1.1 350.1.13.41 ity of 3.412.2.7 [place]7.3.698 [place] .3.326406 084.8 MD Bell8 [facility] 2022-04-18 2022-04-18 [facility], 1.2.840.1 [id number] Univers 00:00:00 00:00:00 Only Carina 09954.1.1 ity of 3.412.2.7 [place] .3.992684 MD Bell8 [facility] 2022-04-18 2022-04-18 Travel 1.2.840.1 1.2.386.297 4448 [id number] Univers 00:00:00 00:00:00 05102.1.1 350.1.13.41 ity of 3.412.2.7 [place]7.3.698 [place] .3.182721 084.8 MD Bell8 [facility] 2022-04-17 2022-04-17 [facility], 1.2.840.1 [id number] 00599 [id number] Univers 09:30:00 23:59:00 Encounter Carian 30935.1.1 it y of 3.412.2.7 [place] .3.578834 MD Bell8 [facility] 2022-04-17 2022-04-17 [facility], 1.2.840.1 [id number] Univers 09:30:00 23:59:00 Encounter Carina 10201.1.1 it y of 3.412.2.7 [place] .3.258075 MD Bell8 [facility] 2022-04-17 2022-04-17 Follow-Up Roderick, 1.2.840.1 [id number] 11 [id number] Univers 11:00:00 16:01:41 Joan 83453.1.1 ity of 3.412.2.7 [place] .3.414953 MD Bell8 [facility] 2022-04-17 2022-04-17 [facility] 1.2.840.1 [id number] 11 [id number] Univers 11:00:00 16:01:41 Joan 33345.1.1 ity of 3.412.2.7 [place] .3.283130 MD Bell8 [facility] 2022-04-17 2022-04-17 Telephone Cale, 1.2.840.1 [id number] [id number] Univers 00:00:00 00:00:00 June 75843.1.1 ity of 3.412.2.7 [place] .3.908879 .8 [facility] 2022-04-17 2022-04-17 Orders Roderick, 1.2.840.1 [id number] 1102 [id number] Univers 00:00:00 00:00:00 Only Joan 08320.1.1 ity of 3.412.2.7 [place] .3.462588 MD Bell8 [facility] 2022-04-17 2022-04-17 Orders [place], 1.2.840.1 [id number] Univers 00:00:00 00:00:00 Only Carina 01998.1.1 ity of 3.412.2.7 [place] .3.411338 .8 [facility] 2022-04-17 2022-04-17 Travel 1.2.840.1 1.2.720.451 0361 [id number] Univers 00:00:00 00:00:00 78975.1.1 350.1.13.41 ity of 3.412.2.7 [place]7.3.698 [place] .3.889078 084.8 .8 [facility] 2022-04-17 2022-04-17 Telephone [place], 1.2.840.1 [id number] Univers 00:00:00 00:00:00 June 04297.1.1 ity of 3.412.2.7 [place] .3.083388 MD Bell8 [facility] 2022-04-17 2022-04-17 Orders Alhalbryant, 1.2.840.1 [id number] 1102 [id number] Univers 00:00:00 00:00:00 Only Joan 84131.1.1 ity of 3.412.2.7 [place] .3.422414 MD [facility] 2022-04-17 2022-04-17 Orders [place], 1.2.840.1 [id number] 0460 Univers 00:00:00 00:00:00 Only Carina 90128.1.1 ity of 3.412.2.7 [place] .3.759284 MD Bell8 [facility] 2022-04-17 2022-04-17 Travel 1.2.840.1 1.2.682.006 5689 [id number] Univers 00:00:00 00:00:00 95611.1.1 350.1.13.41 ity of 3.412.2.7 [place].7.3.698 [place] .3.185443 084.8 MD [facility] 2022-04-16 2022-04-16 Michael Vaughn, 1.2.840.1 [id number] 1102 [id number] Univers 00:00:00 00:00:00 Only Joan 27898.1.1 ity of 3.412.2.7 [place] .3.883791 MD Bell8 [facility] 2022-04-16 2022-04-16 Michael Vaughn 1.2.840.1 [id number] 1102 [id number] Univers 00:00:00 00:00:00 Only Joan 39056.1.1 ity of 3.412.2.7 [place] .3.762212 MD [facility] 2022-04-15 2022-04-15 Outpatient DANNI VAUGHN [facility] [id number] 14:15:16 14:15:16 JOAN Mitchell o n 2022-04-15 2022-04-15 Marvel Goddard 1.2.840.1 [id number] 07 [id number] Univers 09:30:00 09:45:40 Светлана Juares 47074.1.1 ity of 3.412.2.7 [place] .3.971417 MD [facility] 2022-04-15 2022-04-15 TelemMarvel Ribera 1.2.840.1 [id number] 07 [id number] Univers 09:30:00 09:45:40 Светлана Juares 85474.1.1 ity of 3.412.2.7 [place] .3.085824 MD Bell8 [facility] 2022-04-15 2022-04-15 Orders Roderick, 1.2.840.1 [id number] 1102 [id number] Univers 00:00:00 00:00:00 Only Joan 74990.1.1 ity of 3.412.2.7 [place] .3.370104 MD Bell8 [facility] 2022-04-15 2022-04-15 Michael Queen 1.2.840.1 [id number] Univers 00:00:00 00:00:00 Only Carina 36866.1.1 ity of 3.412.2.7 [place] .3.887512 MD Bell8 [facility] 2022-04-15 2022-04-15 Michael Queen 1.2.840.1 [id number] Univers 00:00:00 00:00:00 Only Carina 91289.1.1 ity of 3.412.2.7 [place] .3.210160 MD Bell8 [facility] 2022-04-15 2022-04-15 Orders Roderick 1.2.840.1 [id number] 1102 [id number] Univers 00:00:00 00:00:00 Only Joan 08208.1.1 ity of 3.412.2.7 [place] .3.539544 MD [facility] 2022-04-14 2022-04-14 Outpatient DANNI VAUGHN [facility] [id number] 12:46:43 13:07:19 JOAN chin 2022-04-14 2022-04-14 Ancillary Roderick 1.2.840.1 [id number] 11 [id number] [facility] 10:25:00 12:50:00 Procedure Joan 20175.1.1 it y of 3.412.2.7 [place] .3.526675 MD [facility] 2022-04-14 2022-04-14 Ancillary EL Roderick, 1.2.840.1 [id number] 11 [id number] Univers 10:25:00 12:50:00 Procedure Joan 42336.1.1 it y of 3.412.2.7 [place] .3.909470 MD [facility] 2022-04-14 2022-04-14 Michael Vaughn, 1.2.840.1 [id number] 1102 [id number] Univers 00:00:00 00:00:00 Only Joan 67091.1.1 ity of 3.412.2.7 [place] .3.768652 MD [facility] 2022-04-14 2022-04-14 Michael Queen 1.2.840.1 [id number] Univers 00:00:00 00:00:00 Only Carina 02505.1.1 ity of 3.412.2.7 [place] .3.926652 MD [facility] 2022-04-14 2022-04-14 Travel 1.2.840.1 1.2.570.162 3354 [id number] Univers 00:00:00 00:00:00 32108.1.1 350.1.13.41 ity of 3.412.2.7 [place].7.3.698 [place] .3.497543 084.8 MD [facility] 2022-04-14 2022-04-14 Michael Vaughn, 1.2.840.1 [id number] 1102 [id number] Univers 00:00:00 00:00:00 Only Joan 37983.1.1 ity of 3.412.2.7 [place] .3.498951 MD [facility] 2022-04-14 2022-04-14 Michael Queen 1.2.840.1 [id number] 1752 Univers 00:00:00 00:00:00 Only Carina 23646.1.1 ity of 3.412.2.7 [place] .3.406683 MD [facility] 2022-04-14 2022-04-14 Travel 1.2.840.1 1.2.964.188 4926 [id number] Univers 00:00:00 00:00:00 16915.1.1 350.1.13.41 ity of 3.412.2.7 [place].7.3.698 [place] .3.592044 084.8 MD [facility] 2022-04-13 2022-04-13 [facility] Carina Queen 1.2.840.1 [id number] Univers 12:49:37 23:59:00 Encounter Christophe Garcia 39345.1.1 ity of 3.412.2.7 [place] .3.893264 MD [facility] 2022-04-13 2022-04-13 [facility] Carina Queen 1.2.840.1 [id number] Univers 12:49:37 23:59:00 Encounter Christophe Garcia 83157.1.1 ity of 3.412.2.7 [place] .3.045821 MD [facility] 2022-04-13 2022-04-13 [facility], 1.2.840.1 [id number] Univers 00:00:00 00:00:00 Only Carina 43898.1.1 ity of 3.412.2.7 [place] .3.238660 MD [facility] 2022-04-13 2022-04-13 Travel 1.2.840.1 1.2.770.925 9129 [id number] Univers 00:00:00 00:00:00 85400.1.1 350.1.13.41 ity of 3.412.2.7 2.2.7.3.698 [place] .3.819719 084.8 MD [facility] 2022-04-13 2022-04-13 [facility], 1.2.840.1 [id number] 7127 Univers 00:00:00 00:00:00 Only Carina 16310.1.1 ity of 3.412.2.7 [place] .3.082191 .8 [facility] 2022-04-13 2022-04-13 Travel 1.2.840.1 1.2.060.911 0788 [id number] Univers 00:00:00 00:00:00 25400.1.1 350.1.13.41 ity of 3.412.2.7 [place].7.3.698 [place] .3.378825 084.8 .8 [facility] 2022 2022 Outpatient EL FREEDMAN MDA MDA [id number] 13:14:36 13:37:57 Mitchell CARDONA 2022 2022 Michael Merida, 1.2.840.1 [id number] Univers 00:00:00 00:00:00 Only Baylee E 33777.1.1 it y of 3.412.2.7 [place] .3.784028 .8 [facility] 2022 2022 Michael Merida, 1.2.840.1 [id number] [id number] Univers 00:00:00 00:00:00 Only Baylee E 34121.1.1 it y of 3.412.2.7 [place] .3.190582 MD Bell8 [facility] 2022-04-09 2022-04-09 Michael Queen 1.2.840.1 [id number] Univers 00:00:00 00:00:00 Only Carina 28271.1.1 ity of 3.412.2.7 [place] .3.489285 MD Bell8 [facility] 2022-04-09 2022-04-09 Michael Queen 1.2.840.1 [id number] 1717 Univers 00:00:00 00:00:00 Only Carina 50282.1.1 ity of 3.412.2.7 [place] .3.094963 MD Bell8 [facility] 2022-04-08 2022-04-08 [facility], 1.2.840.1 [id number] [id number] Univers 09:30:00 23:59:00 Encounter Joan 77046.1.1 it y of 3.412.2.7 [place] .3.735832 MD Bell8 [facility] 2022-04-08 2022-04-08 [facility], 1.2.840.1 [id number] Univers 09:30:00 23:59:00 Encounter Joan 45978.1.1 it y of 3.412.2.7 [place] .3.810022 MD Bell8 [facility] 2022-04-08 2022-04-08 [facility] Roderick, 1.2.840.1 [id number] 1102 [id number] Univers 00:00:00 00:00:00 Only Joan 71859.1.1 ity of 3.412.2.7 [place] .3.175192 MD Bell8 [facility] 2022-04-08 2022-04-08 Michael Queen 1.2.840.1 [id number] Univers 00:00:00 00:00:00 Only Carina 62972.1.1 ity of 3.412.2.7 [place] .3.378704 MD Bell8 [facility] 2022-04-08 2022-04-08 Michael Vaughn, 1.2.840.1 [id number] 1102 [id number] Univers 00:00:00 00:00:00 Only Joan 02798.1.1 ity of 3.412.2.7 [place] .3.626637 MD Bell8 [facility] 2022-04-08 2022-04-08 Michael Queen 1.2.840.1 [id number] Univers 00:00:00 00:00:00 Only Carina 46244.1.1 ity of 3.412.2.7 [place] .3.283621 MD Bell8 [facility] 2022-04-07 2022-04-07 Telemedici Roderick, 1.2.840.1 [id number] 1 [id number] Univers 15:30:00 16:00:00 ne Joan 76785.1.1 ity of 3.412.2.7 [place] .3.642760 MD [facility] 2022-04-07 2022-04-07 Telemedicdamon RAZO Tereasjeremias, 1.2.840.1 [id number] 1 [id number] Univers 15:30:00 16:00:00 ne Joan 63738.1.1 ity of 3.412.2.7 [place] .3.133685 MD [facility] 2022-04-07 2022-04-07 Orders Delvis, 1.2.840.1 [id number] 0830 Univers 00:00:00 00:00:00 Only Carina 05424.1.1 ity of 3.412.2.7 [place] .3.338249 MD [facility] 2022-04-07 2022-04-07 Orders [place]vis, 1.2.840.1 [id number] 6457 Univers 00:00:00 00:00:00 Only Carina 14061.1.1 ity of 3.412.2.7 [place] .3.586697 MD [facility] 2022-04-06 2022-04-06 Emergency Temi Das 1.2.840.1 [id number] Univers 14:17:00 19:44:00 48023.1.1 ity of 3.412.2.7 [place] .3.073192 MD [facility] 2022-04-06 2022-04-06 Emergency UR Temi Das B 1.2.840.1 [id number] Univers 14:17:00 19:44:00 57162.1.1 ity of 3.412.2.7 [place] .3.179061 MD [facility] 2022-04-06 2022-04-06 Travel 1.2.840.1 1.2.004.600 7918 [id number] Univers 00:00:00 00:00:00 43174.1.1 350.1.13.41 ity of 3.412.2.7 2.2.7.3.698 [place] .3.592000 084.8 MD [facility] 2022-04-06 2022-04-06 Travel 1.2.840.1 1.2.887.305 6830 975240 Univers 00:00:00 00:00:00 98739.1.1 350.1.13.41 ity of 3.412.2.7 [place].7.3.698 [place] .3.501972 084.8 MD [facility] 2022-04-03 2022-04-03 Orders Alhalabi, 1.2.840.1 [id number] 1102 [id number] Univers 00:00:00 00:00:00 Only Ojan 41708.1.1 ity of 3.412.2.7 [place] .3.136033 MD [facility] 2022-04-03 2022-04-03 Orders [place], 1.2.840.1 [id number] 1433 Univers 00:00:00 00:00:00 Only Carina 98114.1.1 ity of 3.412.2.7 [place] .3.507007 MD [facility] 2022-04-03 2022-04-03 Orders Julián, 1.2.840.1 [id number] 3411 Univers 00:00:00 00:00:00 Only Iris N 10588.1.1 it y of 3.412.2.7 [place] .3.977891 MD [facility] 2022-04-03 2022-04-03 Orders Alhalabi, 1.2.840.1 [id number] 1102 [id number] Univers 00:00:00 00:00:00 Only Joan 54303.1.1 ity of 3.412.2.7 [place] .3.632793 MD [facility] 2022-04-03 2022-04-03 Orders Alhalabi, 1.2.840.1 [id number] 1102 [id number] Univers 00:00:00 00:00:00 Only Joan 82593.1.1 ity of 3.412.2.7 [place] .3.653597 MD Bell8 [facility] 2022-04-03 2022-04-03 Michael Queen, 1.2.840.1 [id number] Univers 00:00:00 00:00:00 Only Carina 87288.1.1 ity of 3.412.2.7 [place] .3.169125 MD Bell8 [facility] 2022-04-03 2022-04-03 Orders Julián, 1.2.840.1 [id number] Univers 00:00:00 00:00:00 Only Iris N 71518.1.1 it y of 3.412.2.7 [place] .3.750398 MD Bell8 [facility] 2022-04-03 2022-04-03 Orders Roderick, 1.2.840.1 [id number] 1102 [id number] Univers 00:00:00 00:00:00 Only Joan 88427.1.1 ity of 3.412.2.7 [place] .3.491733 MD [facility] 2022-03-31 2022-03-31 Outpatient DANNI VAUGHN [facility] [employer] [id number] 12:30:37 13:05:55 JOAN Mitchell o n 2022-03-31 2022-03-31 Ancillary Roderick 1.2.840.1 [id number] 11 [id number] Univers 10:30:00 11:00:00 Procedure Joan 55838.1.1 it y of 3.412.2.7 [place] .3.393712 MD [facility] 2022-03-31 2022-03-31 Ancillary DANNI Vaughn 1.2.840.1 [id number] 11 [id number] Univers 10:30:00 11:00:00 Procedure Joan 74217.1.1 it y of 3.412.2.7 [place] .3.850693 MD [facility] 2022-03-31 2022-03-31 Ancillary Vinny Vaughn.2.840.1 [id number] 11 [id number] Univers 10:00:00 11:00:00 Procedure Joan 20596.1.1 it y of 3.412.2.7 [place] .3.519743 MD [facility] 2022-03-31 2022-03-31 Ancillary DANNI Roderick, 1.2.840.1 [id number] 11 [id number] Univers 10:00:00 11:00:00 Procedure Joan 35979.1.1 it y of 3.412.2.7 [place] .3.612234 MD [facility] 2022-03-31 2022-03-31 Travel 1.2.840.1 1.2.834.592 3656 [id number] Univers 00:00:00 00:00:00 65023.1.1 350.1.13.41 ity of 3.412.2.7 [place]7.3.698 [place] .3.387964 084.8 MD [facility] 2022-03-31 2022-03-31 Travel 1.2.840.1 1.2.463.934 7557 [id number] Univers 00:00:00 00:00:00 55119.1.1 350.1.13.41 ity of 3.412.2.7 2.2.7.3.698 [place] .3.268593 084.8 MD [facility] 2022-03-27 2022-03-27 Michael Gallego 1.2.840.1 [id number] Univers 00:00:00 00:00:00 Only Iris Ball 89040.1.1 it y of 3.412.2.7 [place] .3.901580 MD [facility] 2022-03-27 2022-03-27 Michael Gallego 1.2.840.1 [id number] 7324 Univers 00:00:00 00:00:00 Only Iris Ball 29689.1.1 it y of 3.412.2.7 [place] .3.684178 MD [facility] 2022-03-27 2022-03-27 Michael Gallego 1.2.840.1 [id number] [facility] 00:00:00 00:00:00 Only Iris N 47472.1.1 it y of 3.412.2.7 [place] .3.222894 MD Bell8 [facility] 2022-03-27 2022-03-27 Orders Julián, 1.2.840.1 [id number] [facility] 00:00:00 00:00:00 Only Iris N 08518.1.1 it y of 3.412.2.7 [place] .3.806140 MD Bell8 [facility] 2022-03-25 2022-03-25 Orders Roderick, 1.2.840.1 [id number] 1101 [id number] Univers 00:00:00 00:00:00 Only Joan 51328.1.1 ity of 3.412.2.7 [place] .3.173340 MD Bell8 [facility] 2022-03-25 2022-03-25 Orders Roderick, 1.2.840.1 [id number] 1101 [id number] Univers 00:00:00 00:00:00 Only Joan 38275.1.1 ity of 3.412.2.7 [place] .3.923714 MD [facility] 2022-03-24 2022-03-24 Outpatient DANNI VERGARA MDA MDA [id number] 09:11:58 09:31:12 NAIN ball 2022-03-24 2022-03-24 Orders Champ 1.2.840.1 [id number] [facility] 00:00:00 00:00:00 Only Jadiel G 85775.1.1 it y of 3.412.2.7 [place] .3.726918 MD [facility] 2022-03-24 2022-03-24 Michael Oakes 1.2.840.1 [id number] [facility] 00:00:00 00:00:00 Only Jadiel G 64118.1.1 it y of 3.412.2.7 [place] .3.511745 MD [facility] 2022-03-19 2022-03-19 Telephone Otegbola, 1.2.840.1 [id number] 11 [id number] Univers 00:00:00 00:00:00 Nain 43285.1.1 ity of 3.412.2.7 [place] .3.615782 .8 [facility] 2022-03-19 2022-03-19 Telephone Otegbola, 1.2.840.1 [id number] 11 [id number] Univers 00:00:00 00:00:00 Nain 83100.1.1 ity of 3.412.2.7 [place] .3.858970 .8 [facility] 2022-03-18 2022-03-18 Documentat Alhalabi, 1.2.840.1 [id number] 1 [id number] Univers 00:00:00 00:00:00 ion Joan 23673.1.1 ity of 3.412.2.7 [place] .3.977120 .8 [facility] 2022-03-18 2022-03-18 Documentat Alhalabi, 1.2.840.1 [id number] 1 [id number] Univers 00:00:00 00:00:00 ion Joan 20811.1.1 ity of 3.412.2.7 [place] .3.128638 MD Bell8 [facility] 2022-03-17 2022-03-17 Telemedici Alhalabi, 1.2.840.1 [id number] 1 [id number] Univers 13:30:00 14:00:00 ne Joan 81316.1.1 ity of 3.412.2.7 [place] .3.076436 .8 [facility] 2022-03-17 2022-03-17 Telemedici EL Alhalbryant, 1.2.840.1 [id number] 1 [id number] Univers 13:30:00 14:00:00 ne Joan 18208.1.1 ity of 3.412.2.7 [place] .3.085157 MD Bell8 [facility] 2022-03-16 2022-03-17 Hospital Lucille Brandt 1.2.840.1 [id number] 11 [id number] Univers 11:47:00 13:28:00 Encounter Vidhya Alcantar 82680.1.1 ity of 3.412.2.7 [place] .3.450278 MD [facility] 2022-03-16 2022-03-17 [facility] Lucille Cunningham 1.2.840.1 [id number] 11 [id number] Univers 11:47:00 13:28:00 Encounter Vidhya Alcantar 94542.1.1 ity of 3.412.2.7 [place] .3.880756 MD [facility] 2022-03-16 2022-03-16 Michael Yadav, 1.2.840.1 [id number] [id number] Univers 00:00:00 00:00:00 Only Taya Cervantes 60825.1.1 it y of 3.412.2.7 [place] .3.139863 MD [facility] 2022-03-16 2022-03-16 Travel 1.2.840.1 1.2.719.773 [id number] Univers 00:00:00 00:00:00 67391.1.1 350.1.13.41 ity of 3.412.2.[place]3.698 [place] .[place].515[place] 084.8 MD [facility] 2022-03-16 2022-03-16 Michael Yadav, 1.2.840.1 [id number] 1101 [id number] Univers 00:00:00 00:00:00 Only Taya Cervantes 99665.1.1 it y of 3.412.2.7 [place] .3.182774 MD [facility] 2022-03-16 2022-03-16 Travel 1.2.840.1 1.2.359.161 7848 [id number] Univers 00:00:00 00:00:00 69652.1.1 350.1.13.41 ity of 3.412.2.[place]3.698 [place] .3.330608 084.8 MD .8 [facility] 2022-03-14 2022-03-14 Clinical DANNI RiojasydeLupillojudy Briggs 1.2.840.1 [id number] 7 [id number] Univers 14:00:00 14:15:00 Support Hussain Tovar 29195.1.1 ity of 3.412.2.7 [place] .3.008307 MD [facility] 2022-03-14 2022-03-14 Clinical MikelSilvina Brigitte 1.2.840.1 [id number] [facility] 14:00:00 14:15:00 Support Hussain Tovar 01305.1.1 ity of 3.412.2.7 [place] .3.544747 MD [facility] 2022-03-14 2022-03-14 Travel 1.2.840.1 1.2.639.846 7226 [id number] [facility] 00:00:00 00:00:00 13302.1.1 350.1.13.41 ity of 3.412.2.7 2.[place]7.3.698 [place] .3.259492 084.8 MD [facility] 2022-03-14 2022-03-14 Travel 1.2.840.1 1.2.269.843 5216 [id number] [facility] 00:00:00 00:00:00 34935.1.1 350.1.13.41 ity of 3.412.2.7 [place]3.698 [place] .3.3549[place] 084.Zach [facility] 2022-03-13 2022-03-13 Silvina Blanco 1.2.840.1 [id number] 11 [id number] Univers 00:00:00 00:00:00 Only M 15924.1.1 ity of 3.412.2.7 [place] .3.988875 MD [facility] 2022-03-13 2022-03-13 Silvina Blanco 1.2.840.1 [id number] 11 [id number] Univers 00:00:00 00:00:00 Only M 74012.1.1 ity of 3.412.2.7 [place] .3.518742 MD [facility] 2022-03-12 2022-03-12 Office EL [facility] 1.2.840.1 [id number] 11 [id number] Univers 09:00:00 10:40:16 Visit Vincent noe 93131.1.1 ity of 3.412.2.7 [place] .3.036430 MD [facility] 2022-03-12 2022-03-12 Office [facility] 1.2.840.1 [id number] 11 [id number] Univers 09:00:00 10:40:16 Visit Vincent noe 18592.1.1 ity of 3.412.2.7 [place] .3.952592 MD [facility] 2022-03-12 2022-03-12 Outpatient DANNI VAUGHN MDA MDA [id number] 09:22:25 09:22:25 JOAN Mitchell [facility] 2022-03-12 2022-03-12 Documentat [facility] 1.2.840.1 [id number] Univers 00:00:00 00:00:00 ion Vincent noe 19052.1.1 ity of 3.412.2.7 [place] .3.481564 MD [facility] 2022-03-12 2022-03-12 Orders David, 1.2.840.1 [id number] Univers 00:00:00 00:00:00 Only Lilibeth Velez 41065.1.1 it y of 3.412.2.7 [place] .3.295492 MD [facility] 2022-03-12 2022-03-12 Travel 1.2.840.1 1.2.497.201 5801 [id number] Univers 00:00:00 00:00:00 35830.1.1 350.1.13.41 ity of 3.412.2.7 [place].7.3.698 [place] .3.934[place] 084.8 MD [facility] 2022-03-12 2022-03-12 Documentat S[facility] 1.2.840.1 [id number] Univers 00:00:00 00:00:00 Vincent miller 87849.1.1 ity of 3.412.2.7 [place] .3.879207 MD Bell8 [facility] 2022-03-12 2022-03-12 Orders David, 1.2.840.1 [id number] 6411 Univers 00:00:00 00:00:00 Only Lilibeth Velez 51004.1.1 it y of 3.412.2.7 [place] .3.402762 MD Bell8 [facility] 2022-03-12 2022-03-12 Travel 1.2.840.1 1.2.825.497 1190 110410 Univers 00:00:00 00:00:00 81514.1.1 350.1.13.41 ity of 3.412.2.7 [place].7.3.698 [place] .3.386992 084.8 MD [facility] 2022-03-10 2022-03-10 [facility]illary [facility], 1.2.840.1 [id number] Univers 13:00:00 15:50:00 Procedure Rachana 04488.1.1 ity of C. 3.412.2.7 [place] .3.285621 MD [facility] 2022-03-10 2022-03-10 Ancillary Martin, 1.2.840.1 [id number] Univers 13:00:00 15:50:00 Procedure Rachana 13873.1.1 ity of C. 3.412.2.7 [place] .3.739691 MD [facility] 2022-03-10 2022-03-10 Outpatient MARTIN, MDA MDA [id number] 12:39:19 13:05:41 RACHANA Fonseca [facility] 2022-03-10 2022-03-10 Documentat Sunny, 1.2.840.1 [id number] 395 [id number] Univers 00:00:00 00:00:00 ion Nette 24822.1.1 ity of Alanis 3.412.2.7 [place] .3.854166 MD [facility] 2022-03-10 2022-03-10 Michael Martin, 1.2.840.1 [id number] [id number] Univers 00:00:00 00:00:00 Only Rachana 47170.1.1 it y of C. 3.412.2.7 [place] .3.503958 MD Bell8 [facility] 2022-03-10 2022-03-10 Marquita Koenig 1.2.840.1 [id number] 11 [id number] Univers 00:00:00 00:00:00 Alissa Carbnoe 53021.1.1 ity of 3.412.2.7 [place] .3.983769 MD [facility] 2022-03-10 2022-03-10 [facility] 1.2.840.1 1.2.225.444 9826 [id number] Univers 00:00:00 00:00:00 33537.1.1 350.1.13.41 ity of 3.412.2.7 2.[place].7.3.698 [place] .3.572671 084.8 MD Bell8 [facility] 2022-03-10 2022-03-10 Documentat Sunny, 1.2.840.1 [id number] 928 [id number] Univers 00:00:00 00:00:00 ana Perdue 65165.1.1 ity of Alanis 3.412.2.7 [place] .3.710476 MD Bell8 [facility] 2022-03-10 2022-03-10 Michael Martin, 1.2.840.1 [id number] [id number] Univers 00:00:00 00:00:00 Only Rachana 48267.1.1 it y of C. 3.412.2.7 [place] .3.298751 MD Bell8 [facility] 2022-03-10 2022-03-10 Marquita Koenig 1.2.840.1 [id number] 11 [id number] Univers 00:00:00 00:00:00 Alissa Carbone 49528.1.1 ity of 3.412.2.7 [place] .3.201649 MD [facility] 2022-03-10 2022-03-10 Travel 1.2.840.1 1.2.059.771 5262 040795 Univers 00:00:00 00:00:00 73269.1.1 350.1.13.41 ity of 3.412.2.7 2.[place].7.3.698 [place] .3.1680[place] 084.8 MD Bell8 [facility] 2022-03-06 2022-03-06 Outpatient RICK VO [facility] [id number] 15:08:11 15:28:24 Mitchell [facility] 2022-03-04 2022-03-04 Michael Palomo 1.2.840.1 [id number] 05179 Univers 00:00:00 00:00:00 Only Angela Ball 76201.1.1 it y of 3.412.2.7 [place] .3.960494 MD [facility] 2022-03-04 2022-03-04 Michael Palomo 1.2.840.1 [id number] 28132 Univers 00:00:00 00:00:00 Only Angela Ball 77450.1.1 it y of 3.412.2.7 [place] .3.141948 MD [facility] 2022-03-02 2022-03-02 Carson August 1.2.840.1 [id number] 11 [id number] Univers 00:00:00 00:00:00 Only Héctor 85569.1.1 ity of 3.412.2.7 [place] .3.557292 MD [facility] 2022-03-02 2022-03-02 Carson August 1.2.840.1 [id number] 11 [id number] Univers 00:00:00 00:00:00 Only Héctor 65313.1.1 ity of 3.412.2.7 [place] .3.842089 MD [facility] 2022-02-20 2022-02-20 Outpatient DANNI CALDWELL, [facility] [id number] 795 16:17:44 16:17:44 NELI ball 2022-02-20 2022-02-20 Ancillary Carson Cali 1.2.840.1 [id number] Univers 11:45:00 14:30:00 Procedure Héctor 78958.1.1 it y of 3.412.2.7 [place] .3.570425 [facility] [place] 2022-02-20 2022-02-20 Ancillary Carson Oneill 1.2.840.1 [id number] Univers 11:45:00 14:30:00 Procedure Héctor 04958.1.1 it y of 3.412.2.7 [place] .3.615070 MD [facility] [place] 2022-02-20 2022-02-20 Davida Hale 1.2.840.1 [id number] 1100 [id number] Univers 00:00:00 00:00:00 Only Dubauskas 07236.1.1 it y of 3.412.2.7 [place] .3.212089 MD [facility] 2022-02-20 2022-02-20 Travel 1.2.840.1 1.2.157.465 8886 [id number] Univers 00:00:00 00:00:00 84446.1.1 350.1.13.41 ity of 3.412.2.7 2.[place]7.3.698 [place]3.836749 084.8 MD [facility] 2022-02-20 2022-02-20 Davida Hale 1.2.840.1 [id number] 1100 [id number] Univers 00:00:00 00:00:00 Only Dubauskas 51102.1.1 it y of 3.412.2.7 [place] .3.830105 MD [facility] [place] 2022-02-20 2022-02-20 Travel 1.2.840.1 1.2.273.382 1804 [id number] Univers 00:00:00 00:00:00 92798.1.1 350.1.13.41 ity of 3.412.2.7 2.2.7.3.698 [place] .3.771809 084.8 MD [facility] 2022-02-13 2022-02-13 Orders Dewey, 1.2.840.1 [id number] [id number] Univers 00:00:00 00:00:00 Only Angela Quinn 15876.1.1 it y of 3.412.2.7 [place] .3.350387 MD Bell8 [facility] 2022-02-13 2022-02-13 Orders Kennedy, 1.2.840.1 [id number] Univers 00:00:00 00:00:00 Only Keyon Rosie 36658.1.1 ity of 3.412.2.7 [place] .3.375713 MD Bell8 [facility] 2022-02-13 2022-02-13 Orders Dewey, 1.2.840.1 [id number] Univers 00:00:00 00:00:00 Only Angela Quinn 70076.1.1 it y of 3.412.2.7 [place] .3.540320 MD Bell8 [facility] 2022-02-13 2022-02-13 Orders Kennedy, 1.2.840.1 [id number] 0280 Univers 00:00:00 00:00:00 Only Keyon K 00409.1.1 ity of 3.412.2.7 [place] .3.878909 MD Bell8 [facility] 2022-02-11 2022-02-11 Telephone Carson Oneill 1.2.840.1 [id number] Univers 00:00:00 00:00:00 Héctor 97678.1.1 ity of 3.412.2.7 [place] .3.769015 MD Bell8 [facility] 2022-02-11 2022-02-11 Telephone Carson Oneill 1.2.840.1 [id number] Univers 00:00:00 00:00:00 Héctor 46005.1.1 ity of 3.412.2.7 [place] .3.421295 MD [facility] 2022-02-10 2022-02-10 Infusion [facility], Candelario 1.2.840.1 [id number] 1 [id number] Univers 14:00:00 19:13:29 Shine Orozco III P 49234.1.1 ity of 3.412.2.7 [place] .3.598564 MD [facility] 2022-02-10 2022-02-10 [facility]1 [id number] 1 [id number] Univers 14:00:00 19:13:29 Shine Orozco III P 81698.1.1 ity of 3.412.2.7 [place] .3.361316 MD [facility] 2022-02-10 2022-02-10 [facility] 1.2.840.1 [id number] Univers 15:15:00 18:00:00 Procedure 49041.1.1 it y of 3.412.2.7 [place] .3.458308 MD [facility] 2022-02-10 2022-02-10 Ancillary [facility] Jotashi 1.2.840.1 [id number] Univers 15:15:00 18:00:00 Procedure 04904.1.1 it y of 3.412.2.7 [place] .3.820347 MD [facility] 2022-02-10 2022-02-10 [facility].2.840.1 [id number] Univers 13:00:00 16:12:54 Carson Oneill 02403.1.1 ity of 3.412.2.7 [place] .3.754483 MD [facility] 2022-02-10 2022-02-10 [facility] 1.2.840.1 [id number] Univers 13:00:00 16:12:54 Carson Oneill 53303.1.1 ity of 3.412.2.7 [place] .3.113709 MD Bell8 [facility] 2022-02-10 2022-02-10 Outpatient DANNI VAUGHN MDA [employer] [id number] 11:51:11 11:51:11 JOAN Medrano [facility] 2022-02-10 2022-02-10 Orders Thomas, 1.2.840.1 [id number] Univers 00:00:00 00:00:00 Only Wojciech 20790.1.1 ity of 3.412.2.7 [place] .3.488382 MD Bell8 [facility] 2022-02-10 2022-02-10 Orders Irvin Leyva 1.2.840.1 [id number] [id number] Univers 00:00:00 00:00:00 Only 17497.1.1 ity of 3.412.2.7 [place] .3.192654 MD [facility] 2022-02-10 2022-02-10 Orders [facility] 1.2.840.1 [id number] 11 [id number] Univers 00:00:00 00:00:00 Only Brandi noee 74385.1.1 ity of 3.412.2.7 [place] .3.985563 MD [facility] 2022-02-10 2022-02-10 Documentat [facility] 1.2.840.1 [id number] Univers 00:00:00 00:00:00 ion Vincent noe 76735.1.1 ity of 3.412.2.7 [place] .3.295641 MD Bell8 [facility] 2022-02-10 2022-02-10 Travel 1.2.840.1 1.2.409.346 5067 [id number] Univers 00:00:00 00:00:00 18386.1.1 350.1.13.41 ity of 3.412.2.7 2.2.7.3.698 [place] .3.323199 084.8 MD [facility] 2022-02-10 2022-02-10 Orders Thomas, 1.2.840.1 [id number] 1100 [id number] Univers 00:00:00 00:00:00 Only Wojciech 12228.1.1 ity of 3.412.2.7 [place] .3.810341 MD [facility] 2022-02-10 2022-02-10 Orders Irvin Leyva 1.2.840.1 [id number] 563 [id number] Univers 00:00:00 00:00:00 Only 50776.1.1 ity of 3.412.2.7 [place] .3.262835 MD [facility] 2022-02-10 2022-02-10 Orders [facility] 1.2.840.1 [id number] 11 [id number] Univers 00:00:00 00:00:00 Only danielPj carboneVincent 86773.1.1 ity of 3.412.2.7 [place] .3.138291 MD [facility] 2022-02-10 2022-02-10 Documentat [facility] 1.2.840.1 [id number] Univers 00:00:00 00:00:00 ion Vincent noe 54222.1.1 ity of 3.412.2.7 [place] .3.342987 MD [facility] 2022-02-10 2022-02-10 Travel 1.2.840.1 1.2.984.570 8463 615719 Univers 00:00:00 00:00:00 23895.1.1 350.1.13.41 ity of 3.412.2.7 2.2.7.3.698 [place] .3.198281 084.8 MD [facility] 2022-02-05 2022-02-05 Orders Joceline 1.2.840.1 [id number] 8180 Univers 00:00:00 00:00:00 Only Neida 79146.1.1 ity of 3.412.2.7 [place] .3.019672 MD [facility] 2022-02-05 2022-02-05 Case Merelnea, 1.2.840.1 [id number] 3790 Univers 00:00:00 00:00:00 Management Sonia 69702.1.1 i ty of 3.412.2.7 [place] .3.873410 MD [facility] 2022-02-05 2022-02-05 Orders Justinod, 1.2.840.1 [id number] Univers 00:00:00 00:00:00 Only Neida 24978.1.1 ity of 3.412.2.7 [place] .3.187801 MD [facility] 2022-02-05 2022-02-05 Case Carmelina, 1.2.840.1 [id number] [id number] 9818 Univers 00:00:00 00:00:00 Management Sonia 41756.1.1 i ty of 3.412.2.7 [place] .3.682871 MD [facility] 2022-02-04 2022-02-04 [facility] 1.2.840.1 [id number] 1 [id number] Univers 14:35:34 23:59:00 Encounter 77167.1.1 it y of 3.412.2.7 [place] .3Arabella203998 MD [facility] 2022-02-04 2022-02-04 [facility] 1.2.840.1 [id number] 1 [id number] Univers 14:35:34 23:59:00 Encounter 47442.1.1 it y of 3.412.2.7 [place] .3Arabella165570 MD Bell8 [facility] 2022-02-04 2022-02-04 Case Carmelina, 1.2.840.1 [id number] Univers 00:00:00 00:00:00 Management Sonia 69889.1.1 i ty of 3.412.2.7 [place] .3Arabella460019 MD [facility] 2022-02-04 2022-02-04 [facility] Joma 1.2.840.1 [id number] 11 [id number] Univers 00:00:00 00:00:00 Only 40915.1.1 ity of 3.412.2.7 [place] .3Arabella790357 MD [facility] 2022-02-04 2022-02-04 Telephone Candelario Hernandez 1.2.840.1 [id number] Univers 00:00:00 00:00:00 93679.1.1 ity of 3.412.2.7 [place] .3Arabella846461 MD [facility] 2022-02-04 2022-02-04 Candelario Dorsey 1.2.840.1 [id number] 11 [id number] Univers 00:00:00 00:00:00 Only 89865.1.1 ity of 3.412.2.7 [place] .3Arabella256272 MD [facility] 2022-02-04 2022-02-04 Nate Cosme, 1.2.840.1 [id number] 0219 Univers 00:00:00 00:00:00 Management Sonia 12505.1.1 i ty of 3.412.2.7 [place] .3Arabella651199 MD [facility] 2022-02-04 2022-02-04 Orders Candelario Hernandez 1.2.840.1 [id number] 11 [id number] Univers 00:00:00 00:00:00 Only 89745.1.1 ity of 3.412.2.7 [place] .3Arabella789350 MD [facility] 2022-02-04 2022-02-04 Telephone Candelario Hernandez 1.2.840.1 [id number] Univers 00:00:00 00:00:00 76337.1.1 ity of 3.412.2.7 [place] .3Arabella435825 MD [facility] 2022-02-04 2022-02-04 Orders Candelario Hernandez 1.2.840.1 [id number] 11 [id number] Univers 00:00:00 00:00:00 Only 38745.1.1 ity of 3.412.2.7 [place] .3.796230 MD [facility] 2022-02-03 2022-02-03 [facility] 1.2.840.1 [id number] Univers 00:00:00 00:00:00 33356.1.1 ity of 3.412.2.7 [place] .3.349035 MD [facility] 2022-02-03 2022-02-03 [facility] 1.2.840.1 [id number] 10 [id number] [facility] 00:00:00 00:00:00 Only 81325.1.1 ity of 3.412.2.7 [place] .3.778912 MD [facility] 2022-02-03 2022-02-03 [place] Candelario Hernandez 1.2.840.1 [id number] [facility] 00:00:00 00:00:00 16175.1.1 ity of 3.412.2.7 [place] .3.261373 MD [facility] 2022-02-03 2022-02-03 [facility] 1.2.840.1 [id number] 10 [id number] [facility] 00:00:00 00:00:00 Only 54479.1.1 ity of 3.412.2.7 [place] .3.410437 MD [facility] [place] 2022-01-27 2022-01-27 Outpatient DANNI MAYERS MDA [employer] [id number] 08:28:35 08:55:44 MEGAN Medrano [facility] 2022-01-23 2022-01-23 Ancillary Vinny Garcia.2.840.1 [id number] 10 [id number] [facility] 15:30:00 16:00:00 Procedure Joan 28349.1.1 it y of 3.412.2.7 [place] .3.928708 MD [facility] [place] 2022-01-23 2022-01-23 Ancillary Vinny Vaughn.2.840.1 [id number] 10 [id number] Univers 15:30:00 16:00:00 Procedure Joan 87343.1.1 it y of 3.412.2.7 [place] .3.859339 MD [facility] 2022-01-23 2022-01-23 Ancillary DANNI Wadedontaebryant, 1.2.840.1 [id number] 10 [id number] Univers 13:00:00 13:30:00 Procedure Joan 56634.1.1 it y of 3.412.2.7 [place] .3.898074 MD [facility] 2022-01-23 2022-01-23 Ancillary Alhalabi, 1.2.840.1 [id number] 10 [id number] Univers 13:00:00 13:30:00 Procedure Joan 19507.1.1 it y of 3.412.2.7 [place] .3.772482 MD [facility] 2022-01-23 2022-01-23 Ancillary DANNI Vaughn, 1.2.840.1 [id number] 10 [id number] Univers 12:15:00 12:30:00 Procedure Joan 48358.1.1 it y of 3.412.2.7 [place] .3.892096 MD [facility] 2022-01-23 2022-01-23 Ancillary Aldontaeabi, 1.2.840.1 [id number] 10 [id number] Univers 12:15:00 12:30:00 Procedure Joan 38679.1.1 it y of 3.412.2.7 [place] .3.412351 MD [facility] 2022-01-23 2022-01-23 Travel 1.2.840.1 1.2.763.703 3692 [id number] Univers 00:00:00 00:00:00 03184.1.1 350.1.13.41 ity of 3.412.2.7 2.2.7.3.698 [place] .3.506745 084.8 MD [facility] 2022-01-23 2022-01-23 Travel 1.2.840.1 1.2.893.861 7917 246958 Univers 00:00:00 00:00:00 36346.1.1 350.1.13.41 ity of 3.412.2.7 2.2.7.3.698 [place] .3.462705 084.8 MD [facility] 2022-01-22 2022-01-22 Candelario Dorsey 1.2.840.1 [id number] 10 [id number] Univers 00:00:00 00:00:00 Only 12666.1.1 ity of 3.412.2.7 [place] .3.844099 MD [facility] 2022-01-22 2022-01-22 Candelario Dorsey 1.2.840.1 [id number] 10 [id number] Univers 00:00:00 00:00:00 Only 72409.1.1 ity of 3.412.2.7 [place] .3.228231 MD [facility] 2022-01-22 2022-01-22 Orders Candelario Hernandez 1.2.840.1 [id number] 10 [id number] Univers 00:00:00 00:00:00 Only 31811.1.1 ity of 3.412.2.7 [place] .3.008590 MD [facility] 2022-01-22 2022-01-22 Candelario Dorsey 1.2.840.1 [id number] 10 [id number] Univers 00:00:00 00:00:00 Only 07871.1.1 ity of 3.412.2.7 [place] .3.740359 MD [facility] 2022-01-14 2022-01-14 Michael Benavides 1.2.840.1 [id number] 4210 Univers 00:00:00 00:00:00 Only Keyon Velez 89773.1.1 ity of 3.412.2.7 [place] .3.704790 MD [facility] 2022-01-14 2022-01-14 Michael Benavides 1.2.840.1 [id number] 0277 Univers 00:00:00 00:00:00 Only Keyon K 10701.1.1 ity of 3.412.2.7 [place] .3.356577 .8 [facility] [place] 2022-01-13 2022-01-13 Infusion EL Roderick, 1.2.840.1 [id number] [id number] Univers 13:30:00 18:14:29 Joan 82324.1.1 ity of 3.412.2.7 [place] .3.841500 .8 [facility] 2022-01-13 2022-01-13 Infusion Roderick, 1.2.840.1 [id number] 560 [id number] Univers 13:30:00 18:14:29 Joan 42488.1.1 ity of 3.412.2.7 [place] .3.674697 MD Bell8 [facility] 2022-01-13 2022-01-13 Office Rachana Sarabia 1.2.840.1 10 [id number] Univers 11:30:00 12:55:18 Visit Candelario Hernandez 11105.1.1 ity of 3.412.2.7 [place] .3.885935 MD Bell8 [facility] 2022-01-13 2022-01-13 Office Rachana Martin 1.2.840.1 10 [id number] Univers 11:30:00 12:55:18 Visit Candelario Hernandez 55936.1.1 ity of 3.412.2.7 [place] .3.682889 .8 [facility] [place] 2022-01-13 2022-01-13 Outpatient EL CANDELARIO HERNANDEZ [facility] [id number] 09:26:43 09:26:43 [facility] 2022-01-13 2022-01-13 Documentat Roderick 1.2.840.1 [id number] 1 [id number] Univers 00:00:00 00:00:00 ion Joan 63651.1.1 ity of 3.412.2.7 [place] .3.747792 MD [facility] 2022-01-13 2022-01-13 Candelario Dorsey 1.2.840.1 [id number] 10 [id number] Univers 00:00:00 00:00:00 Only 41452.1.1 ity of 3.412.2.7 [place] .3.686551 MD [facility] 2022-01-13 2022-01-13 Michael Bell 1.2.840.1 [id number] 0428 Univers 00:00:00 00:00:00 Only Ruth 55979.1.1 ity of 3.412.2.7 [place] .3.963041 MD Bell8 [facility] 2022-01-13 2022-01-13 Travel 1.2.840.1 1.2.320.025 5032 210580 Univers 00:00:00 00:00:00 40270.1.1 350.1.13.41 ity of 3.412.2.7 2.2.7.3.698 [place] .3.809596 084.8 MD Bell8 [facility] 2022-01-13 2022-01-13 Documentat Roderick, 1.2.840.1 [id number] 1 [id number] Univers 00:00:00 00:00:00 ion Joan 62295.1.1 ity of 3.412.2.7 [place] .3.653002 MD [facility] 2022-01-13 2022-01-13 Candelario Dorsey 1.2.840.1 [id number] 10 [id number] Univers 00:00:00 00:00:00 Only 21000.1.1 ity of 3.412.2.7 [place] .3.172442 MD [facility] 2022-01-13 2022-01-13 Michael Bell 1.2.840.1 [id number] Univers 00:00:00 00:00:00 Only Ruth 06878.1.1 ity of 3.412.2.7 [place] .3.375301 .8 [facility] 2022-01-13 2022-01-13 Travel 1.2.840.1 1.2.778.889 0567 104561 Univers 00:00:00 00:00:00 90117.1.1 350.1.13.41 ity of 3.412.2.7 2.2.7.3.698 [place] .3.174143 084.8 .8 [facility] 2022-01-12 2022-01-12 Orders Dewey, 1.2.840.1 [id number] 09417 Univers 00:00:00 00:00:00 Only Angela N 00195.1.1 it y of 3.412.2.7 [place] .3.673386 MD Bell8 [facility] 2022-01-12 2022-01-12 Orders Dewey, 1.2.840.1 [id number] Univers 00:00:00 00:00:00 Only Angela Ball 79322.1.1 it y of 3.412.2.7 [place] .3.390408 MD Banuelos [facility] 2022-01-09 2022-01-09 Ancillary DANNI Vaughn 1.2.840.1 [id number] 10 [id number] Univers 11:30:00 14:20:00 Procedure Joan 28026.1.1 it y of 3.412.2.7 [place] .3.051720 MD Banuelos [facility] 2022-01-09 2022-01-09 Ancillary Roderick 1.2.840.1 [id number] 10 [id number] Univers 11:30:00 14:20:00 Procedure Joan 96956.1.1 it y of 3.412.2.7 [place] .3.003912 MD Banuelos [facility] 2022-01-09 2022-01-09 Outpatient DANNI VAUGHN [facility] [employer] [id number] 11:11:47 11:12:02 JOAN ball 2022-01-09 2022-01-09 Travel 1.2.840.1 1.2.426.945 [id number] Univers 00:00:00 00:00:00 00698.1.1 350.1.13.41 ity of 3.412.2.7 2.[place]7.3.698 [place] .3.004638 084.8 MD Banuelos [facility] 2022-01-09 2022-01-09 Travel 1.2.840.1 1.2.707.579 [id number] Univers 00:00:00 00:00:00 70833.1.1 350.1.13.41 ity of 3.412.2.7 2.[place].7.3.698 [place] .3.799991 084.8 MD Banuelos [facility] 2021-12-30 2021-12-30 [facility] 1.2.840.1 [id number] 1 [id number] Univers 11:45:00 23:59:00 Encounter 02566.1.1 it y of 3.412.2.7 [place] .3.251091 MD Banuelos [facility] 2021-12-30 2021-12-30 [facility] 1.2.840.1 [id number] 1 [id number] Univers 11:45:00 23:59:00 Encounter 86206.1.1 it y of 3.412.2.7 [place] .3.891616 MD Banuelos [facility] 2021-12-30 2021-12-30 Landon Vaughn 1.2.840.1 [id number] 1 [id number] Univers 16:00:00 16:30:00 ne Joan 45683.1.1 ity of 3.412.2.7 [place] .3.684508 MD Banuelos [facility] 2021-12-30 2021-12-30 Telemlui Vaughn 1.2.840.1 [id number] 1 [id number] Univers 16:00:00 16:30:00 ne Joan 37839.1.1 ity of 3.412.2.7 [place] .3.899256 MD Banuelos [facility] 2021-12-30 2021-12-30 Orders Candelario Hernandez 1.2.840.1 [id number] 10 [id number] Univers 00:00:00 00:00:00 Only 00089.1.1 ity of 3.412.2.7 [place] .3.072233 MD Bell8 [facility] 2021-12-30 2021-12-30 Orders Candelario Hernandez 1.2.840.1 [id number] 10 [id number] Univers 00:00:00 00:00:00 Only 56829.1.1 ity of 3.412.2.7 [place] .3.144578 .8 [facility] 2021-12-26 2021-12-26 Outpatient ROSY LINDA [facility] [id number] 15:15:51 15:35:45 [facility] 2021-12-24 2021-12-24 Orders Roderick, 1.2.840.1 [id number] Univers 00:00:00 00:00:00 Only Joan 83646.1.1 ity of 3.412.2.7 [place] .3.085759 .8 [facility] 2021-12-24 2021-12-24 Orders Kennedy, 1.2.840.1 [id number] Univers 00:00:00 00:00:00 [place] 50861.1.1 ity of 3.412.2.7 [place] .3.698996 .8 [facility] 2021-12-24 2021-12-24 Orders Aljeremias, 1.2.840.1 [id number] Univers 00:00:00 00:00:00 Only Joan 49486.1.1 ity of 3.412.2.7 [place] .3.160320 .8 [facility] 2021-12-24 2021-12-24 Orders Kennedy, 1.2.840.1 [id number] Univers 00:00:00 00:00:00 Only [place] K 72401.1.1 ity of 3.412.2.7 [place] .3.673170 MD Bell8 [facility] 2021-12-16 2021-12-16 [facility] [place] 1.2.840.1 [id number] 1 [id number] Univers 14:30:00 23:59:00 Encounter 89882.1.1 it y of 3.412.2.7 [place] .3.318116 MD Bell8 [facility] 2021-12-16 2021-12-16 [facility] [place] 1.2.840.1 [id number] 1 [id number] Univers 14:30:00 23:59:00 Encounter 89399.1.1 it y of 3.412.2.7 [place] .3.142336 MD Bell8 [facility] 2021-12-16 2021-12-16 [facility] [place] 1.2.840.1 [id number] 1 [id number] Univers 10:30:00 16:23:08 82448.1.1 ity of 3.412.2.7 [place] .3.872743 MD Bell8 [facility] 2021-12-16 2021-12-16 [facility] 1.2.840.1 [id number] 1 [id number] Univers 10:30:00 16:23:08 74515.1.1 ity of 3.412.2.7 [place] .3.475628 MD Banuelos [facility] 2021-12-16 2021-12-16 Office DANNI Vaughn 1.2.840.1 [id number] [id number] Univers 09:30:00 11:05:47 Visit Joan 10801.1.1 ity of 3.412.2.7 [place] .3Arabella322891 MD Bell8 [facility] 2021-12-16 2021-12-16 Office Roedrick 1.2.840.1 [id number] Univers 09:30:00 11:05:47 Visit Joan 76682.1.1 ity of 3.412.2.7 [place] .3Arabella376863 MD Bell8 [facility] 2021-12-16 2021-12-16 Outpatient EL RODERICK, [facility] [id number] 09:12:45 09:12:45 JOAN chin 2021-12-16 2021-12-16 Documentat Aljeremias, 1.2.840.1 [id number] 1 [id number] Univers 00:00:00 00:00:00 ion Joan 91524.1.1 ity of 3.412.2.7 [place] .3.569668 MD Bell8 [facility] 2021-12-16 2021-12-16 Orders David, 1.2.840.1 [id number] Univers 00:00:00 00:00:00 Only Lilibeth Velez 09924.1.1 it y of 3.412.2.7 [place] .3.166254 MD [facility] 2021-12-16 2021-12-16 Travel 1.2.840.1 1.2.412.625 3124 [id number] Univers 00:00:00 00:00:00 81981.1.1 350.1.13.41 ity of 3.412.2.7 [place].3.698 [place] .[place].910[place] 084.8 MD [facility] 2021-12-16 2021-12-16 Documentat Roderick, 1.2.840.1 [id number] 1 [id number] Univers 00:00:00 00:00:00 ion Joan 85857.1.1 ity of 3.412.2.7 [place] .3.859587 MD Bell8 [facility] 2021-12-16 2021-12-16 Orders David, 1.2.840.1 [id number] Univers 00:00:00 00:00:00 Only Lilibeth Velez 66735.1.1 it y of 3.412.2.7 [place] .3.303203 MD [facility] 2021-12-16 2021-12-16 Travel 1.2.840.1 1.2.728.458 8617 126076 Univers 00:00:00 00:00:00 59611.1.1 350.1.13.41 ity of 3.412.2.7 [place].3.698 [place]3.2515[place] 084.8 MD [facility] 2021-12-15 2021-12-15 [facility] Lucille Cunningham 1.2.840.1 [id number] 10 [id number] Univers 08:30:00 23:59:00 Encounter KellyTomásy 95061.1.1 ity of 3.412.2.7 [place] .3.341823 MD [facility] 2021-12-15 2021-12-15 [facility] Lucille Cunningham 1.2.840.1 [id number] 10 [id number] Univers 08:30:00 23:59:00 Encounter Pillo Mendoza 97143.1.1 ity of 3.412.2.7 [place] .3.602812 MD [facility] 2021-12-15 2021-12-15 Travel 1.2.840.1 1.2.923.192 6117 [id number] Univers 00:00:00 00:00:00 64063.1.1 350.1.13.41 ity of 3.412.2.7 [place]7.3.698 [place]3.466033 084.8 MD [facility] 2021-12-15 2021-12-15 Travel 1.2.840.1 1.2.503.225 9413 [id number] Univers 00:00:00 00:00:00 45190.1.1 350.1.13.41 ity of 3.412.2.7 [place]7.3.698 [place] .3.048478 084.8 MD [facility] 2021-12-07 2021-12-07 Michael Trejo, 1.2.840.1 [id number] Univers 00:00:00 00:00:00 Only Swapna 39350.1.1 ity of 3.412.2.7 [place] .3.658849 MD [facility] 2021-12-07 2021-12-07 Sharlene Rose2.840.1 [id number] Univers 00:00:00 00:00:00 Only Swapna 88154.1.1 ity of 3.412.2.7 [place] .3.961724 MD [facility] 2021-11-27 2021-11-27 Outpatient CANDELARIO GRANT MDA [employer] [id number] 08:34:03 08:34:03 Mitchellajay ball 2021-11-26 2021-11-26 Candelario Dorsey 1.2.840.1 [id number] 10 [id number] Univers 00:00:00 00:00:00 Only 42039.1.1 ity of 3.412.2.7 [place] .3.516633 MD [facility] 2021-11-26 2021-11-26 Candelario Dorsey 1.2.840.1 [id number] 10 [id number] [facility] 00:00:00 00:00:00 Only 10642.1.1 ity of 3.412.2.7 [place] .3Arabella779220 MD [facility] 2021-11-21 2021-11-21 Outpatient DANNI ABRAHAM [facility] [id number] MD 10:21:53 11:01:43 Raymundo BLACKBURN 2021-11-18 2021-11-[address] [facility] 1.2.840.1 [id number] 1 [id number] Univers 15:00:00 18:01:34 26729.1.1 ity of 3.412.2.7 [place] .3.280775 MD [facility] 2021-11-18 2021-11-18 [facility] Cand[facility] Hernandez 1.2.840.1 [id number] 1 [id number] Univers 15:00:00 18:01:34 84409.1.1 ity of 3.412.2.7 [place] .3.530216 MD [facility] 2021-11-18 2021-11-18 Office EL Candelario Hernandez 1.2.840.1 [id number] 10 [id number] Univers 13:00:00 14:17:54 Visit 67015.1.1 ity of 3.412.2.7 [place] .3.252364 MD Bell8 [facility] 2021-11-18 2021-11-18 Office Candelario Hernandez 1.2.840.1 [id number] 10 [id number] Univers 13:00:00 14:17:54 Visit 86438.1.1 ity of 3.412.2.7 [place] .3.531011 MD Bell8 [facility] 2021-11-18 2021-11-18 Ancillary DANNI Vaughn, 1.2.840.1 [id number] 10 [id number] Univers 08:55:00 11:20:00 Procedure Joan 26439.1.1 it y of 3.412.2.7 [place] .3.485952 MD Bell8 [facility] 2021-11-18 2021-11-18 Ancillary Roderick 1.2.840.1 [id number] 10 [id number] Univers 08:55:00 11:20:00 Procedure Joan 24967.1.1 it y of 3.412.2.7 [place] .3.817155 MD [facility] 2021-11-18 2021-11-18 Outpatient DANNI VAUGHN, [facility] [id number] 09:00:41 09:00:41 JOAN Mitchell [facility] 2021-11-18 2021-11-18 Documentat Roderick, 1.2.840.1 [id number] 1 [id number] Univers 00:00:00 00:00:00 ion Joan 36020.1.1 ity of 3.412.2.7 [place] .3.443091 MD Bell8 [facility] 2021-11-18 2021-11-18 Orders Sadia 1.2.840.1 [id number] Univers 00:00:00 00:00:00 Only Francisca 71431.1.1 ity of 3.412.2.7 [place] .3.714263 MD [facility] 2021-11-18 2021-11-18 Travel 1.2.840.1 1.2.564.198 0651 [id number] Univers 00:00:00 00:00:00 82076.1.1 350.1.13.41 ity of 3.412.2.7 [place]7.3.698 [place]3.4775[place] 084.8 MD [facility] 2021-11-18 2021-11-18 Documentat Aldontaeabi, 1.2.840.1 [id number] 1 [id number] Univers 00:00:00 00:00:00 ion Joan 10456.1.1 ity of 3.412.2.7 [place] .3.066729 MD [facility] 2021-11-18 2021-11-18 Orders Sadia, 1.2.840.1 [id number] Univers 00:00:00 00:00:00 Only Francisca 97338.1.1 ity of 3.412.2.7 [place] .3.358863 MD [facility] 2021-11-18 2021-11-18 Travel 1.2.840.1 1.2.039.254 0562 [id number] Univers 00:00:00 00:00:00 67085.1.1 350.1.13.41 ity of 3.412.2.7 [place]7.3.698 [place]3.306787 084.8 MD [facility] 2021-11-17 2021-11-17 Ancillary EL 1.2.840.1 [id number] 1096 [id number] Univers 12:30:00 13:00:00 Procedure 55880.1.1 it y of 3.412.2.7 [place] .3.511133 MD [facility] 2021-11-17 2021-11-17 Ancillary 1.2.840.1 [id number] 1096 [id number] Univers 12:30:00 13:00:00 Procedure 56466.1.1 it y of 3.412.2.7 [place] .3.611119 MD [facility] 2021-11-17 2021-11-17 Ancillary EL 1.2.840.1 [id number] 1096 [id number] Univers 10:00:00 10:30:00 Procedure 56105.1.1 it y of 3.412.2.7 [place] .3.180803 MD [facility] 2021-11-17 2021-11-17 Ancillary 1.2.840.1 [id number] 1096 [id number] Univers 10:00:00 10:30:00 Procedure 23291.1.1 it y of 3.412.2.7 [place] .3.246145 MD [facility] 2021-11-17 2021-11-17 Travel 1.2.840.1 1.2.792.598 1395 [id number] Univers 00:00:00 00:00:00 15552.1.1 350.1.13.41 ity of 3.412.2.7 [place]7.3.698 [place]3.698924 084.8 MD [facility] 2021-11-17 2021-11-17 Travel 1.2.840.1 1.2.286.702 7779 140338 Univers 00:00:00 00:00:00 25694.1.1 350.1.13.41 ity of 3.412.2.7 [place].7.3.698 [place] .3.738426 084.8 MD [facility] 2021-11-04 2021-11-04 [facility] Candelario Hernandez 1.2.840.1 [id number] 1 [id number] Univers 09:15:00 23:59:00 Encounter Joel Valadez 62377.1.1 ity of 3.412.2.7 [place] .3.054208 MD [facility] 2021-11-04 2021-11-04 [facility] Candelario Hernandez 1.2.840.1 [id number] 1 [id number] [facility] 09:15:00 23:59:00 Encounter LinoJoel gillespie 28123.1.1 ity of 3.412.2.7 [place] .3.884459 MD [facility] 2021-11-04 2021-11-04 Travel 1.2.840.1 1.2.075.485 7849 [id number] Univers 00:00:00 00:00:00 51345.1.1 350.1.13.41 ity of 3.412.2.7 [place].7.3.698 [place] .3.581731 084.8 MD [facility] 2021-11-04 2021-11-04 Travel 1.2.840.1 1.2.587.153 4166 840303 Univers 00:00:00 00:00:00 30032.1.1 350.1.13.41 ity of 3.412.2.7 [place]7.3.698 [place] .3.567011 084.Zach [facility] 2021-11-03 2021-11-03 Silvina Blanco 1.2.840.1 [id number] 10 [id number] Univers 00:00:00 00:00:00 Only M 30776.1.1 ity of 3.412.2.7 [place] .3.423351 MD [facility] 2021-11-03 2021-11-03 Silvina Blanco 1.2.840.1 [id number] 10 [id number] Univers 00:00:00 00:00:00 Only M 36276.1.1 ity of 3.412.2.7 [place] .3.922447 MD [facility] 2021-10-22 2021-10-22 Outpatient DANNI VAUGHN [facility] [employer] [id number] 13:26:09 13:26:09 JOAN Mitchell o 2021-10-22 2021-10-22 Orders Kennedy 1.2.840.1 [id number] [facility] 00:00:00 00:00:00 Only Keyon Velez 81703.1.1 ity of 3.412.2.7 [place] .3.785283 MD [facility] 2021-10-22 2021-10-22 Candelario Dorsey 1.2.840.1 [id number] 10 [id number] Univers 00:00:00 00:00:00 Only 35187.1.1 ity of 3.412.2.7 [place] .3.250824 MD [facility] 2021-10-22 2021-10-22 Travel 1.2.840.1 1.2.380.691 2124 [id number] Univers 00:00:00 00:00:00 90590.1.1 350.1.13.41 ity of 3.412.2.7 2.2.7.3.698 [place] .3.795431 084.8 MD [facility] 2021-10-22 2021-10-22 Michael Benavides 1.2.840.1 [id number] Univers 00:00:00 00:00:00 Only Keyon Velez 52125.1.1 ity of 3.412.2.7 [place] .3.534144 MD [facility] 2021-10-22 2021-10-22 Candelario Dorsey 1.2.840.1 [id number] 10 [id number] Univers 00:00:00 00:00:00 Only 95569.1.1 ity of 3.412.2.7 [place] .3.159598 MD [facility] 2021-10-22 2021-10-22 Travel 1.2.840.1 1.2.588.843 6740 [id number] Univers 00:00:00 00:00:00 80919.1.1 350.1.13.41 ity of 3.412.2.7 [place].7.3.698 [place] .3.698194 084.8 MD [facility] 2021-10-21 2021-10-21 [facility] Joan Garcia 1.2.840.1 [id number] 8 [id number] Univers 16:36:26 23:59:00 Encounter Sterling Hurtado 13211.1.1 ity of 3.412.2.7 [place] .3.638022 MD Bell8 [facility] 2021-10-21 2021-10-21 [facility] 1.2.840.1 [id number] 8 [id number] Univers 16:36:26 23:59:00 Encounter Sterling Hurtado 90213.1.1 ity of 3.412.2.7 [place] .3.286605 MD Bell8 [facility] 2021-10-21 2021-10-21 [facility] 1.2.840.1 [id number] [facility] 08:07:57 16:35:00 Encounter Sterling Hurtado 28214.1.1 ity of 3.412.2.7 [place] .3.702353 MD Bell8 [facility] 2021-10-21 2021-10-21 [facility] 1.2.840.1 [id number] 8 [id number] Univers 08:07:57 16:35:00 Encounter Sterling Hurtadoina Leann 38324.1.1 ity of 3.412.2.7 [place] .3.501957 MD Bell8 [facility] 2021-10-21 2021-10-21 [facility] Candelario Hernandez 1.2.840.1 [id number] 1 [id number] Univers 10:00:00 15:28:21 00000.1.1 ity of 3.412.2.7 [place] .3.679470 MD Bell8 [facility] 2021-10-21 2021-10-21 Infusion Candelario Hernandez 1.2.840.1 [id number] 1 [id number] Univers 10:00:00 15:28:21 98897.1.1 ity of 3.412.2.7 [place] .3.741015 MD Bell8 [facility] 2021-10-21 2021-10-[address] [facility], 1.2.840.1 [id number] 1095 [id number] Univers 08:00:00 10:18:53 Visit Joan 01047.1.1 ity of 3.412.2.7 [place] .3.550026 MD Bell8 [facility] 2021-10-21 2021-10-21 Office Teresadontaebryant, 1.2.840.1 [id number] 1095 [id number] Univers 08:00:00 10:18:53 Visit Joan 00604.1.1 ity of 3.412.2.7 [place] .3.694974 MD Bell8 [facility] 2021-10-21 2021-10-21 Outpatient DANNI VAUGHN, [facility] [id number] 07:19:10 07:19:10 JOAN Mitchell o n 2021-10-21 2021-10-21 Documentat Roderick, 1.2.840.1 [id number] 1 [id number] Univers 00:00:00 00:00:00 ion Joan 75538.1.1 ity of 3.412.2.7 [place] .3.137763 MD Bell8 [facility] 2021-10-21 2021-10-21 Orders Fernandez, 1.2.840.1 [id number] Univers 00:00:00 00:00:00 Only Altagracia Simpson 89783.1.1 ity of 3.412.2.7 [place] .3.780358 MD Bell8 [facility] 2021-10-21 2021-10-21 Orders David, 1.2.840.1 [id number] Univers 00:00:00 00:00:00 Only Lilibeth Velez 22522.1.1 it y of 3.412.2.7 [place] .3.188803 MD Bell8 [facility] 2021-10-21 2021-10-21 Travel 1.2.840.1 1.2.851.147 1554 [id number] Univers 00:00:00 00:00:00 07825.1.1 350.1.13.41 ity of 3.412.2.7 2.[place].7.3.698 [place] .3.724584 084.8 MD [facility] 2021-10-21 2021-10-21 Documentat Roderick, 1.2.840.1 [id number] 1 [id number] Univers 00:00:00 00:00:00 ion Joan 99008.1.1 ity of 3.412.2.7 [place] .3.362799 .8 [facility] 2021-10-21 2021-10-21 Orders Fernandez, 1.2.840.1 [id number] Univers 00:00:00 00:00:00 Only Altagracia Simpson 00193.1.1 ity of 3.412.2.7 [place] .3.988577 MD [facility] 2021-10-21 2021-10-21 Orders David, 1.2.840.1 [id number] Univers 00:00:00 00:00:00 Only Lilibeth Velez 22282.1.1 it y of 3.412.2.7 [place] .3.205807 MD [facility] 2021-10-21 2021-10-21 Travel 1.2.840.1 1.2.632.875 0333 [id number] Univers 00:00:00 00:00:00 98950.1.1 350.1.13.41 ity of 3.412.2.7 [place].7.3.698 [place] .3.598222 084.8 MD [facility] 2021-10-20 2021-10-20 Outpatient DANNI MOHAMUD MDA MDA [id number] 08:51:50 09:30:21 JOSE ball 2021-10-14 2021-10-14 Office DANNI Vaughn 1.2.840.1 [id number] 1095 [id number] [facility] 14:30:00 15:30:19 Visit Joan 10462.1.1 ity of 3.412.2.7 [place] .3.966004 MD [facility] 2021-10-14 2021-10-14 Office Roderick, 1.2.840.1 [id number] [id number] [facility] 14:30:00 15:30:19 Visit Joan 74139.1.1 ity of 3.412.2.7 [place] .3.108759 MD [facility] 2021-10-14 2021-10-14 Outpatient EL RODERICK [facility] [id number] 12:22:43 12:22:43 JOAN Medrano [facility] 2021-10-14 2021-10-14 Documentat Roderick, 1.2.840.1 [id number] 1 [id number] Univers 00:00:00 00:00:00 ion Joan 41329.1.1 ity of 3.412.2.7 [place] .3.158085 MD [facility] 2021-10-14 2021-10-14 Travel 1.2.840.1 1.2.874.032 3058 [id number] Univers 00:00:00 00:00:00 81420.1.1 350.1.13.41 ity of 3.412.2.7 2.2.7.3.698 [place] .3.487691 084.8 MD [facility] 2021-10-14 2021-10-14 Documentat Roderick, 1.2.840.1 [id number] 1 [id number] Univers 00:00:00 00:00:00 ion Joan 72244.1.1 ity of 3.412.2.7 [place] .3.066207 MD [facility] 2021-10-14 2021-10-14 Travel 1.2.840.1 1.2.959.870 7853 [id number] Univers 00:00:00 00:00:00 25782.1.1 350.1.13.41 ity of 3.412.2.7 2.2.7.3.698 [place] .3.105796 084.8 MD [facility] 2021-10-13 2021-10-13 Candelario Dorsey 1.2.840.1 [id number] 10 [id number] Univers 00:00:00 00:00:00 Only 18204.1.1 ity of 3.412.2.7 [place] .3.849790 MD Bell8 [facility] 2021-10-13 2021-10-13 [facility]1 [id number] 10 [id number] Univers 00:00:00 00:00:00 Only 03339.1.1 ity of 3.412.2.7 [place] .3.762584 MD Bell8 [facility] 2021-10-13 2021-10-13 [facility].840[facility]1 [id number] 10 [id number] Univers 00:00:00 00:00:00 Only 72434.1.1 ity of 3.412.2.7 [place] .3.835558 MD Bell8 [facility] 2021-10-13 2021-10-13 [facility].2.840[facility]1 [id number] 10 [id number] Univers 00:00:00 00:00:00 Only 04494.1.1 ity of 3.412.2.7 [place] .3.417941 MD Bell8 [facility] 2021-10-08 2021-10-08 [facility] 1.2.840.1 [id number] 1 [id number] Univers 12:30:00 12:47:15 Support Kim Saunders 61312.1.1 ity of 3.412.2.7 [place] .3.921729 MD [facility] 2021-10-08 2021-10-08 [facility]1 [id number] 1 [id number] Univers 12:30:00 12:47:15 Support Kim Saunders 97111.1.1 ity of 3.412.2.7 [place] .3.396522 MD Bell8 [facility] 2021-10-08 2021-10-08 Office Joan Garcia 1.2.840.1 [id number] Univers 11:00:00 11:27:14 Visit Candelario Hernandez 68233.1.1 ity of 3.412.2.7 [place] .3.447544 MD Bell8 [facility] 2021-10-08 2021-10-08 Office Joan Vaughn 1.2.840.1 [id number] Univers 11:00:00 11:27:14 Visit Candelario Hernandez 39067.1.1 ity of 3.412.2.7 [place] .3.407222 MD Bell8 [facility] 2021-10-08 2021-10-08 Outpatient EL KHANH VAUGHN [employer] [id number] 08:53:24 08:53:24 [facility] 2021-10-08 Documentat Roderick, 1.2.840.1 [id number] 1 [id number] Univers 00:00:00 00:00:00 ion Joan 09840.1.1 ity of 3.412.2.7 [place] .3.415403 MD Bell8 [facility] 2021-10-08 2021-10-08 Travel 1.2.840.1 1.2.782.382 8751 [id number] Univers 00:00:00 00:00:00 99144.1.1 350.1.13.41 ity of 3.412.2.7 2.2.7.3.698 [place] .3.815070 084.8 MD Bell8 [facility] 2021-10-08 2021-10-08 Documentat Roderick 1.2.840.1 [id number] 1 [id number] Univers 00:00:00 00:00:00 ion Joan 40418.1.1 ity of 3.412.2.7 [place] .3.738656 MD Bell8 [facility] 2021-10-08 2021-10-08 Travel 1.2.840.1 1.2.633.878 7648 [id number] Univers 00:00:00 00:00:00 15766.1.1 350.1.13.41 ity of 3.412.2.7 2.2.7.3.698 [place] .3.211140 084.8 MD Bell8 [facility] 2021-10-01 2021-10-01 Orders Kennedy, 1.2.840.1 [id number] Univers 00:00:00 00:00:00 Only Keyon K 23169.1.1 ity of 3.412.2.7 [place] .3.773671 MD Bell8 [facility] 2021-10-01 2021-10-01 Orders Kennedy, 1.2.840.1 [id number] Univers 00:00:00 00:00:00 Only Keyon K 02220.1.1 ity of 3.412.2.7 [place] .3.770030 MD Bell8 [facility] 2021-09-30 2021-09-30 Clinical Candelario Grant 1.2.840.1 [id number] 1 [id number] Univers 13:00:00 13:30:00 Support 10373.1.1 ity of 3.412.2.7 [place] .3.079724 MD Bell8 [facility] 2021-09-30 2021-09-30 Clinical Candelario Hernandez 1.2.840.1 [id number] 1 [id number] Univers 13:00:00 13:30:00 Support 93804.1.1 ity of 3.412.2.7 [place] .3.849334 MD [facility] 2021-09-30 2021-09-30 Office Joan Garcia 1.2.840.1 [id number] Univers 11:00:00 11:28:01 Visit Candelario Hernandez 17010.1.1 ity of 3.412.2.7 [place] .3.646291 MD [facility] 2021-09-30 2021-09-30 Office Joan Vaughn 1.2.840.1 [id number] Univers 11:00:00 11:28:01 Visit Candelario Hernandez 54149.1.1 ity of 3.412.2.7 [place] .3.332341 MD [facility] 2021-09-30 2021-09-30 Outpatient DANNI VAUGHN [facility] [employer] [id number] 09:17:56 09:17:56 JOAN Mitchell o n 2021-09-30 2021-09-30 Documentat Roderick, 1.2.840.1 [id number] 1 [id number] Univers 00:00:00 00:00:00 ion Joan 32691.1.1 ity of 3.412.2.7 [place] .3.510180 MD Bell8 [facility] 2021-09-30 2021-09-30 Nurse Only Candelario Hernandez 1.2.840.1 [id number] Univers 00:00:00 00:00:00 75732.1.1 ity of 3.412.2.7 [place] .3.083667 MD [facility] 2021-09-30 2021-09-30 Travel 1.2.840.1 1.2.966.692 3757 [id number] Univers 00:00:00 00:00:00 60367.1.1 350.1.13.41 ity of 3.412.2.7 2.2[place]7.3.698 [place] .3.590158 084.8 MD [facility] 2021-09-30 2021-09-30 Documentat Roderick 1.2.840.1 [id number] 1 [id number] Univers 00:00:00 00:00:00 ion Joan 26936.1.1 ity of 3.412.2.7 [place] .3.372211 MD [facility] 2021-09-30 2021-09-30 Nurse Only Candelario Hernandez 1.2.840.1 [id number] Univers 00:00:00 00:00:00 20090.1.1 ity of 3.412.2.7 [place] .3.243525 MD [facility] 2021-09-30 2021-09-30 Travel 1.2.840.1 1.2.597.952 5124 [id number] Univers 00:00:00 00:00:00 52134.1.1 350.1.13.41 ity of 3.412.2.7 2.2.7.3.698 [place] .3.648531 084.8 MD [facility] 2021-09-29 2021-09-29 Nurse Only Candelario Hernandez 1.2.840.1 [id number] Univers 00:00:00 00:00:00 61032.1.1 ity of 3.412.2.7 [place] .3.214790 MD [facility] 2021-09-29 2021-09-29 Nurse Only Candelario Hernandez 1.2.840.1 [id number] Univers 00:00:00 00:00:00 79623.1.1 ity of 3.412.2.7 [place] .3.589378 MD [facility] 2021-09-25 2021-09-25 Michael Benavides, 1.2.840.1 [id number] Univers 00:00:00 00:00:00 Only Keyon Velez 73141.1.1 ity of 3.412.2.7 [place] .3.685567 MD [facility] 2021-09-25 2021-09-25 Rik Vaughn, 1.2.840.1 [id number] Univers 00:00:00 00:00:00 Joan 64291.1.1 ity of 3.412.2.7 [place] .3.974278 MD [facility] 2021-09-25 2021-09-25 Michael Benavides 1.2.840.1 [id number] Univers 00:00:00 00:00:00 Only Keyon Velez 13779.1.1 ity of 3.412.2.7 [place] .3.241518 MD [facility] 2021-09-25 2021-09-25 [facility] Teresajeremias, 1.2.840.1 [id number] Univers 00:00:00 00:00:00 Joan 90501.1.1 ity of 3.412.2.7 [place] .3.790226 MD Bell8 [facility] 2021-09-24 2021-09-24 [facility] RODERICK [facility] [id number] 12:45:18 12:45:18 JOAN [facility] 2021-09-24 2021-09-24 Travel 1.2.840.1 1.2.696.786 [id number] Univers 00:00:00 00:00:00 59528.1.1 350.1.13.41 ity of 3.412.2.[place]3.698 [place] .3.782280 084.8 MD Bell8 [facility] 2021-09-24 2021-09-24 Travel 1.2.840.1 1.2.450.788 [id number] Univers 00:00:00 00:00:00 01007.1.1 350.1.13.41 ity of 3.412.2.[place].698 [place]3.860895 084.8 MD [facility] 2021-09-23 2021-09-23 [facility] Joan Vaughn 1.2.840.1 [id number] Univers 16:44:52 23:59:00 Encounter Lynn Green 02624.1.1 ity of 3.412.2.7 [place] .3.591057 MD [facility] 2021-09-23 2021-09-23 [facility] Joan Vaughn 1.2.840.1 [id number] Univers 16:44:52 23:59:00 Encounter Lynn Green 76529.1.1 ity of 3.412.2.7 [place] .3.591777 MD [facility] 2021-09-232021-09-23 Hospital Joan Vaughn 1.2.840.1 [id number] Univers 10:42:25 16:43:00 Encounter Shandra Kaplan 84502.1.1 ity of 3.412.2.7 [place] .3Arabella320602 MD Bell8 [facility] 2021-09-23 2021-09-23 [facility] Joan Vaughn 1.2.840.1 [id number] Univers 10:42:25 16:43:00 Encounter Shandra Kaplan 44965.1.1 ity of 3.412.2.7 [place] .3Arabella418073 MD Bell8 [facility] 2021-09-23 2021-09-23 Infusion Candelario Grant 1.2.840.1 [id number] Univers 10:30:00 16:11:38 47291.1.1 ity of 3.412.2.7 [place] .3Arabella686219 MD Bell8 [facility] 2021-09-23 2021-09-23 Infusion Candelario Hernandez 1.2.840.1 [id number] Univers 10:30:00 16:11:38 66070.1.1 ity of 3.412.2.7 [place] .3Arabella757111 MD Bell8 [facility] 2021-09-23 2021-09-23 Outpatient CANDELARIO GRANT [facility] [id number] 09:58:53 09:58:53 [facility] 2021-09-23 2021-09-23 Office Roderick 1.2.840.1 [id number] Univers 08:30:00 09:00:00 Visit Joan 84079.1.1 ity of 3.412.2.7 [place] .3Arabella358194 MD [facility] 2021-09-23 2021-09-23 Office Roderick 1.2.840.1 [id number] Univers 08:30:00 09:00:00 Visit Joan 05670.1.1 ity of 3.412.2.7 [place] .3.155807 MD Bell8 [facility] 2021-09-23 2021-09-23 Outpatient DANNI VAUGHN [facility] [id number] 08:37:51 08:37:51 JOAN Mitchell [facility] 2021-09-23 2021-09-23 Documentat Roderick, 1.2.840.1 [id number] 1 [id number] Univers 00:00:00 00:00:00 ion Joan 99868.1.1 ity of 3.412.2.7 [place] .3.938696 MD Bell8 [facility] 2021-09-23 2021-09-23 Documentat Roderick, 1.2.840.1 [id number] Univers 00:00:00 00:00:00 ion Joan 55885.1.1 ity of 3.412.2.7 [place] .3.542155 MD [facility] 2021-09-23 2021-09-23 Orders Candelario Hernandez 1.2.840.1 [id number] Univers 00:00:00 00:00:00 Only 79564.1.1 ity of 3.412.2.7 [place] .3.932547 MD [facility] 2021-09-23 2021-09-23 Orders Roderick, 1.2.840.1 [id number] [id number] Univers 00:00:00 00:00:00 Only Joan 30164.1.1 ity of 3.412.2.7 [place] .3.502268 MD [facility] 2021-09-23 2021-09-23 Travel 1.2.840.1 1.2.699.316 [id number] Univers 00:00:00 00:00:00 64196.1.1 350.1.13.41 ity of 3.412.2.[place]3.698 [place] .3.011268 084.8 MD [facility] 2021-09-23 2021-09-23 Orders Dewey, 1.2.840.1 [id number] Univers 00:00:00 00:00:00 Only Angela Quinn 63258.1.1 it y of 3.412.2.7 [place] .3.599669 MD [facility] 2021-09-23 2021-09-23 Documentat Roderick, 1.2.840.1 [id number] 1 [id number] Univers 00:00:00 00:00:00 ion Joan 39914.1.1 ity of 3.412.2.7 [place] .3.974310 MD [facility] 2021-09-23 2021-09-23 Documentat Roderick, 1.2.840.1 [id number] 1 [id number] Univers 00:00:00 00:00:00 ion Joan 38499.1.1 ity of 3.412.2.7 [place] .3.872320 MD [facility] 2021-09-23 2021-09-23 Orders Candelario Hernandez 1.2.840.1 [id number] 10 [id number] Univers 00:00:00 00:00:00 Only 55022.1.1 ity of 3.412.2.7 [place] .3.547825 MD [facility] 2021-09-23 2021-09-23 Orders Roderick, 1.2.840.1 [id number] 1095 [id number] Univers 00:00:00 00:00:00 Only Joan 25924.1.1 ity of 3.412.2.7 [place] .3.569354 MD [facility] 2021-09-23 2021-09-23 Travel 1.2.840.1 1.2.296.089 2184 [id number] Univers 00:00:00 00:00:00 36110.1.1 350.1.13.41 ity of 3.412.2.7 [place].3.698 [place] 084.8 MD [facility] 2021-09-232021-09-23 Orders Dewey, 1.2.840.1 [id number] Univers 00:00:00 00:00:00 Only Angela Ball 08906.1.1 it y of 3.412.2.7 [place] .3.890582 MD [facility] 2021-09-22 2021-09-22 Outpatient DANNI MOHAMUD, [facility] [id number] 13:41:12 14:05:07 [facility] 2021-09-22 2021-09-22 Orders Kennedy, 1.2.840.1 [id number] Univers 00:00:00 00:00:00 Only Keyon Velez 09681.1.1 ity of 3.412.2.7 [place] .3.609971 MD [facility] 2021-09-22 2021-09-22 Orders Kennedy, 1.2.840.1 [id number] Univers 00:00:00 00:00:00 Only Keyon Velez 74028.1.1 ity of 3.412.2.7 [place] .3.113710 MD [facility] 2021-09-19 2021-09-19 [facility] 1.2.840.1 [id number] 1 [id number] Univers 13:24:14 23:59:00 Encounter Vidhya Alcantar 15215.1.1 ity of 3.412.2.7 [place] .3.705641 MD [facility] 2021-09-19 2021-09-19 [facility] 1.2.840.1 [id number] 1 [id number] Univers 13:24:14 23:59:00 Encounter Vidhya Alcantar 10498.1.1 ity of 3.412.2.7 [place] .3.997148 MD [facility] 2021-09-19 2021-09-19 [facility] 1.2.840.1 [id number] 1 [id number] Univers 13:00:00 13:23:00 Encounter 88557.1.1 it y of 3.412.2.7 [place] .3.285670 MD [facility] 2021-09-19 2021-09[facility]19 [facility].1 [id number] 1 [id number] Univers 13:00:00 13:23:00 Encounter 98152.1.1 it y of 3.412.2.7 [place] .3.505580 MD [facility] 2021-09-19 2021-09-19 Travel 1.2.840.1 1.2.938.378 6215 [id number] Univers 00:00:00 00:00:00 78631.1.1 350.1.13.41 ity of 3.412.2.7 [place]7.3.698 [place]3.2[place] 084.8 MD [facility] 2021-09-19 2021-09-19 Travel 1.2.840.1 1.2.035.880 4109 [id number] Univers 00:00:00 00:00:00 26173.1.1 350.1.13.41 ity of 3.412.2.7 2.[place]7.3.698 [place]3.701250 084.Zach [facility] 2021-09-18 2021-09-18 [facility] 1.2.840.1 [id number] 2 [id number] Univers 11:52:30 23:59:00 Encounter Tonya Hennessy 59124.1.1 ity of 3.412.2.7 [place] .3.723545 MD [facility] 2021-09-18 2021-09-18 [facility] 1.2.840.1 [id number] 2 [id number] Univers 11:52:30 23:59:00 Encounter Tonya Hennessy 57495.1.1 ity of 3.412.2.7 [place] .3.608161 MD [facility] 2021-09-17 2021-09-17 Orders Kennedy, 1.2.840.1 [id number] Univers 00:00:00 00:00:00 Only Keyon Velez 81804.1.1 ity of 3.412.2.7 [place] .3.803380 MD [facility] 2021-09-17 2021-09-17 Orders Candelario Hernandez 1.2.840.1 [id number] 10 [id number] Univers 00:00:00 00:00:00 Only 24105.1.1 ity of 3.412.2.7 [place] .3.846509 MD [facility] 2021-09-17 2021-09-17 Orders Kennedy 1.2.840.1 [id number] Univers 00:00:00 00:00:00 Only Keyon Velez 82514.1.1 ity of 3.412.2.7 [place] .3.499090 MD [facility] 2021-09-17 2021-09-17 Orders Candelario Hernandez 1.2.840.1 [id number] 10 [id number] Univers 00:00:00 00:00:00 Only 67999.1.1 ity of 3.412.2.7 [place] .3.412400 MD [facility] 2021-09-15 2021-09-15 [facility] Zeus Locke 1.2.840.1 [id number] Univers 10:06:53 23:59:00 Encounter Cynthia Valadez 66144.1.1 ity of 3.412.2.7 [place] .3.654288 MD [facility] 2021-09-15 2021-09-15 [facility] Zeus Locke 1.2.840.1 [id number] Univers 10:06:53 23:59:00 Encounter Cynthia Valadez 77424.1.1 ity of 3.412.2.7 [place] .3.930557 MD [facility] 2021-09-15 2021-09-15 Office Candelario Hernandez 1.2.840.1 [id number] 10 [id number] Univers 10:30:00 11:00:00 Visit Carson Oneill 43150.1.1 ity of 3.412.2.7 [place] .3.351008 MD [facility] 2021-09-15 2021-09-15 Office Candelario Hernandez 1.2.840.1 [id number] 10 [id number] Univers 10:30:00 11:00:00 Visit Carson Oneill 28566.1.1 ity of 3.412.2.7 [place] .3.096166 MD [facility] 2021-09-15 2021-09-15 [facility], 1.2.840.1 [id number] [id number] Univers 09:23:14 10:05:00 Encounter Joan 75322.1.1 it y of 3.412.2.7 [place] .3.244998 MD [facility] 2021-09-15 2021-09-15 [facility], 1.2.840.1 [id number] 071 [id number] Univers 09:23:14 10:05:00 Encounter Joan 35143.1.1 it y of 3.412.2.7 [place] .3.403293 MD [facility] 2021-09-15 2021-09-15 Documentat Guillermina, 1.2.840.1 [id number] 10 [id number] Univers 00:00:00 00:00:00 ion Flavia 03558.1.1 ity of 3.412.2.7 [place] .3.075807 MD [facility] 2021-09-15 2021-09-15 Travel 1.2.840.1 1.2.676.589 8431 [id number] Univers 00:00:00 00:00:00 45671.1.1 350.1.13.41 ity of 3.412.2.7 [place]7.3.698 [place]3.494391 084.8 MD [facility] 2021-09-15 2021-09-15 Documentat Guillermina, 1.2.840.1 [id number] 10 [id number] Univers 00:00:00 00:00:00 ion Flavia 14726.1.1 ity of 3.412.2.7 [place] .3.117256 MD [facility] 2021-09-15 2021-09-15 Travel 1.2.840.1 1.2.849.726 6916 [id number] Univers 00:00:00 00:00:00 41692.1.1 350.1.13.41 ity of 3.412.2.7 [place]7.3.698 [place] .3.705999 084.8 MD [facility] 2021-09-12 2021-09-12 [facility], 1.2.840.1 [id number] [id number] Univers 11:27:36 23:59:00 Encounter Joan 64881.1.1 it y of 3.412.2.7 [place] .3.752620 MD [facility] 2021-09-12 2021-09-12 [facility] 1.2.840.1 [id number] Univers 11:27:36 23:59:00 Encounter Joan 02293.1.1 it y of 3.412.2.7 [place] .3.639395 MD [facility] 2021-09-12 2021-09-12 [facility] Irvin Marie 1.2.840.1 [id number] 10 [id number] Univers 10:33:47 11:26:00 Encounter 97580.1.1 it y of 3.412.2.7 [place] .3.174453 MD [facility] 2021-09-12 2021-09-12 [facility] Irvin Ordaz 1.2.840.1 [id number] 10 [id number] Univers 10:33:47 11:26:00 Encounter 76947.1.1 it y of 3.412.2.7 [place] .3.752296 MD [facility] 2021-09-12 2021-09-12 Outpatient CANDELARIO GRANT MDA MDA [id number] 06:58:45 06:58:45 [facility] 2021-09-12 2021-09-12 Travel 1.2.840.1 1.2.581.987 4346 [id number] Univers 00:00:00 00:00:00 91682.1.1 350.1.13.41 ity of 3.412.2.7 [place]7.3.698 [place] .3.901162 084.8 MD [facility] 2021-09-12 2021-09-12 Travel 1.2.840.1 1.2.865.729 8674 036247 [facility] 00:00:00 00:00:00 70623.1.1 350.1.13.41 ity of 3.412.2.7 2.[place]7.3.698 [place] .3.609806 084.8 MD [facility] 2021-09-11 2021-09-11 [facility], 1.2.840.1 [id number] Univers 11:36:54 23:59:00 Encounter Joan 41100.1.1 it y of 3.412.2.7 [place] .3.628171 MD [facility] 2021-09-11 2021-09-11 [facility] 1.2.840.1 [id number] Univers 11:36:54 23:59:00 Encounter Joan 75639.1.1 it y of 3.412.2.7 [place] .3.825813 MD [facility] 2021-09-11 2021-09-11 Travel 1.2.840.1 1.2.420.384 6164 [id number] Univers 00:00:00 00:00:00 01070.1.1 350.1.13.41 ity of 3.412.2.7 2.2.7.3.698 [place] .3.742238 084.8 MD [facility] 2021-09-11 2021-09-11 Travel 1.2.840.1 1.2.506.366 4263 [id number] Univers 00:00:00 00:00:00 15945.1.1 350.1.13.41 ity of 3.412.2.7 2.2.7.3.698 [place] .3.512179 084.8 MD [facility] 2021-09-10 2021-09-10 [facility] 1.2.840.1 [id number] 1 [id number] Univers 14:37:34 23:59:00 Encounter 72984.1.1 it y of 3.412.2.7 [place] .3.008216 MD [facility] 2021-09-10 2021-09-10 [facility] 1.2.840.1 [id number] 1 [id number] Univers 14:37:34 23:59:00 Encounter 91609.1.1 it y of 3.412.2.7 [place] .3.760770 MD [facility] 2021-09-10 2021-09-10 [facility] Corinwy 1.2.840.1 [id number] 1 [id number] Univers 14:16:35 14:36:00 Encounter 94734.1.1 it y of 3.412.2.7 [place] .3.571092 MD [facility] 2021-09-10 2021-09-10 [facility] Corinwy 1.2.840.1 [id number] 1 [id number] Univers 14:16:35 14:36:00 Encounter 51992.1.1 it y of 3.412.2.7 [place] .3.592750 MD [facility] 2021-09-10 2021-09-10 [facility] Corinwy 1.2.840.1 [id number] 1 [id number] Univers 14:16:18 14:36:00 Encounter 50709.1.1 it y of 3.412.2.7 [place] .3.146210 MD [facility] 2021-09-10 2021-09-10 [facility] 1.2.840.1 [id number] 1 [id number] Univers 14:16:18 14:36:00 Encounter 28414.1.1 it y of 3.412.2.7 [place] .3Arabella031771 MD [facility] 2021-09-10 2021-09-10 [facility] 1.2.840.1 [id number] 1 [id number] Univers 14:15:58 14:15:58 Encounter 24310.1.1 it y of 3.412.2.7 [place] .3.735656 MD [facility] 2021-09-10 2021-09-10 [facility] 1.2.840.1 [id number] 1 [id number] Univers 14:15:58 14:15:58 Encounter 83880.1.1 it y of 3.412.2.7 [place] .3.131423 MD [facility] 2021-09-10 2021-09-10 [facility], 1.2.840.1 [id number] Univers 12:21:30 14:14:00 Encounter Joan 23505.1.1 it y of 3.412.2.7 [place] .3.642027 MD [facility] 2021-09-10 2021-09-10 [facility], 1.2.840.1 [id number] Univers 12:21:30 14:14:00 Encounter Joan 09849.1.1 it y of 3.412.2.7 [place] .3.667656 MD [facility] 2021-09-10 2021-09-10 [facility] [id number] 13:14:59 13:14:59 [facility] 2021-09-10 2021-09-10 Travel 1.2.840.1 1.2.740.426 6124 [id number] Univers 00:00:00 00:00:00 00352.1.1 350.1.13.41 ity of 3.412.2.7 2.[place]7.3.698 [place] .3.323329 084.8 MD [facility] 2021-09-10 2021-09-10 Orders Ania, 1.2.840.1 [id number] Univers 00:00:00 00:00:00 Only Rozmin 12702.1.1 ity of 3.412.2.7 [place] .3.691675 MD [facility] 2021-09-10 2021-09-10 Travel 1.2.840.1 1.2.796.720 8037 [id number] Univers 00:00:00 00:00:00 33617.1.1 350.1.13.41 ity of 3.412.2.7 2.2[place]7.3.698 [place] .3.556342 084.8 MD [facility] 2021-09-10 2021-09-10 Michael Lopezin, 1.2.840.1 [id number] Univers 00:00:00 00:00:00 Only Rozmin 29415.1.1 ity of 3.412.2.7 [place] .3.266825 MD [facility] 2021-09-09 2021-09-09 [facility], 1.2.840.1 [id number] Univers 15:42:26 23:59:00 Encounter Joan 19702.1.1 it y of 3.412.2.7 [place] .3.229916 MD [facility] 2021-09-09 2021-09-09 [facility], 1.2.840.1 [id number] 886 [id number] Univers 15:42:26 23:59:00 Encounter Joan 94928.1.1 it y of 3.412.2.7 [place] .3.478790 MD [facility] 2021-09-09 2021-09-09 Travel 1.2.840.1 1.2.885.855 2172 [id number] Univers 00:00:00 00:00:00 26820.1.1 350.1.13.41 ity of 3.412.2.7 2.2.7.3.698 [place] .3.547051 084.8 MD [facility] 2021-09-09 2021-09-09 Travel 1.2.840.1 1.2.203.977 6009 [id number] Univers 00:00:00 00:00:00 93243.1.1 350.1.13.41 ity of 3.412.2.7 2.2.7.3.698 [place] .3.879211 084.8 MD [facility] 2021-09-03 2021-09-03 Orders Roderick 1.2.840.1 [id number] 1094 [id number] Univers 00:00:00 00:00:00 Only Joan 11279.1.1 ity of 3.412.2.7 [place] .3.307620 MD [facility] 2021-09-03 2021-09-03 Documentat Roderick, 1.2.840.1 [id number] 1 [id number] Univers 00:00:00 00:00:00 ion Joan 61585.1.1 ity of 3.412.2.7 [place] .3.042440 MD [facility] 2021-09-03 2021-09-03 Orders Candelario Hernandez 1.2.840.1 [id number] 10 [id number] Univers 00:00:00 00:00:00 Only 24153.1.1 ity of 3.412.2.7 [place] .3.361822 MD [facility] 2021-09-03 2021-09-03 Orders Roderick 1.2.840.1 [id number] 1094 [id number] Univers 00:00:00 00:00:00 Only Joan 93946.1.1 ity of 3.412.2.7 [place] .3.031889 MD [facility] 2021-09-03 2021-09-03 Documentat Roderick, 1.2.840.1 [id number] 1 [id number] Univers 00:00:00 00:00:00 ion Ojan 36487.1.1 ity of 3.412.2.7 [place] .3.074076 MD [facility] 2021-09-03 2021-09-03 [facility] Candelario Hernandez 1.2.840.1 [id number] 10 [id number] Univers 00:00:00 00:00:00 Only 18026.1.1 ity of 3.412.2.7 [place] .3.312181 MD [facility] 2021-09-02 2021-09-02 Documentat Roderick, 1.2.840.1 [id number] 1 [id number] Univers 00:00:00 00:00:00 ion Joan 56786.1.1 ity of 3.412.2.7 [place] .3.062341 MD [facility] 2021-09-02 2021-09-02 Documentat Guillermina, 1.2.840.1 [id number] 10 [id number] Univers 00:00:00 00:00:00 ion Flavia 79512.1.1 ity of 3.412.2.7 [place] .3.304542 MD [facility] 2021-09-02 2021-09-02 Documentat Roderick, 1.2.840.1 [id number] 1 [id number] Univers 00:00:00 00:00:00 ion Joan 81475.1.1 ity of 3.412.2.7 [place] .3.055440 MD [facility] 2021-09-02 2021-09-02 Documentat Guillermina, 1.2.840.1 [id number] 10 [id number] Univers 00:00:00 00:00:00 ion Flavia 16694.1.1 ity of 3.412.2.7 [place] .3.509644 MD [facility] 2021-09-01 2021-09-01 [facility] DANNI Guidry, 1.2.840.1 [id number] [facility]3 [id number] [facility] 10:47:57 23:59:00 Encounter Flavia 01370.1.1 it y of 3.412.2.7 [place] .3Arabella206889 MD [facility] 2021-09-01 2021-09-01 [facility], 1.2.840.1 [id number] 1093 [id number] Univers 10:47:57 23:59:00 Encounter Flavia 89061.1.1 it y of 3.412.2.7 [place] .3.185817 MD [facility] 2021-09-01 2021-09-01 [facility], 1.2.840.1 [id number] 1093 [id number] Univers 09:36:58 10:46:00 Encounter Flavia 68287.1.1 it y of 3.412.2.7 [place] .3Arabella675096 MD [facility] 2021-09-01 2021-09-01 [facility], 1.2.840.1 [id number] 1093 [id number] Univers 09:36:58 10:46:00 Encounter Flavia 80460.1.1 it y of 3.412.2.7 [place] .3Arabella919486 MD [facility] 2021-09-01 2021-09-01 Documentat [facility], 1.2.840.1 [id number] 10 [id number] Univers 00:00:00 00:00:00 ion Flavia 61242.1.1 ity of 3.412.2.7 [place] .3.623951 MD [facility] 2021-09-01 2021-09-01 Documentat [facility], 1.2.840.1 [id number] 10 [id number] Univers 00:00:00 00:00:00 ion Flavia 50370.1.1 ity of 3.412.2.7 [place] .3Arabella222594 MD [facility] 2021-09-01 2021-09-01 Travel 1.2.840.1 1.2.618.555 3874 [id number] Univers 00:00:00 00:00:00 97487.1.1 350.1.13.41 ity of 3.412.2.7 2.2.7.3.698 [place] .3.711624 084.8 MD [facility] 2021-09-01 2021-09-01 Documentat Guidry, 1.2.840.1 [id number] 10 [id number] Univers 00:00:00 00:00:00 ion Flavia 01013.1.1 ity of 3.412.2.7 [place] .3.402873 MD [facility] 2021-09-01 2021-09-01 Documentat Guidry, 1.2.840.1 [id number] 10 [id number] Univers 00:00:00 00:00:00 ion Flavia 77907.1.1 ity of 3.412.2.7 [place] .3.147540 MD [facility] 2021-09-01 2021-09-01 Travel 1.2.840.1 1.2.385.999 6025 [id number] Univers 00:00:00 00:00:00 88209.1.1 350.1.13.41 ity of 3.412.2.7 2.[place]7.3.698 [place] .3.717145 084.8 MD [facility] 2021-08-26 2021-08-26 Orders Crabtrey, 1.2.840.1 [id number] 1094 [id number] Univers 00:00:00 00:00:00 Only Brandan 95378.1.1 ity of 3.412.2.7 [place] .3.597392 MD [facility] 2021-08-26 2021-08-26 Orders Crabtrey, 1.2.840.1 [id number] 1094 [id number] Univers 00:00:00 00:00:00 Only Brandan 85243.1.1 ity of 3.412.2.7 [place] .3.025899 MD [facility] 2021-08-21 2021-08-21 Orders Crabtrey, 1.2.840.1 [id number] 1093 [id number] Univers 00:00:00 00:00:00 Only Brandan 21775.1.1 ity of 3.412.2.7 [place] .3.998962 MD [facility] 2021-08-21 2021-08-21 Orders Simona, 1.2.840.1 [id number] 1093 [id number] Univers 00:00:00 00:00:00 Only Brandan 38313.1.1 ity of 3.412.2.7 [place] .3.123352 MD [facility] 2021-08-19 2021-08-19 [facility] Corinwy 1.2.840.1 [id number] 1 [id number] Univers 10:51:09 23:59:00 Encounter 53256.1.1 it y of 3.412.2.7 [place] .3.449022 MD [facility] 2021-08-19 2021[facility]08[facility]19 [facility]1 [id number] 1 [id number] Univers 10:51:09 23:59:00 Encounter 49105.1.1 it y of 3.412.2.7 [place] .3.107815 MD [facility] 2021-08-19 2021-08-19 Office Roderick, 1.2.840.1 [id number] 1092 [id number] Univers 14:30:00 15:34:02 Visit Joan 87812.1.1 ity of 3.412.2.7 [place] .3.456654 MD [facility] 2021-08-19 2021-08-19 Office Roderick, 1.2.840.1 [id number] 1092 [id number] Univers 14:30:00 15:34:02 Visit Joan 93394.1.1 ity of 3.412.2.7 [place] .3.147377 MD [facility] 2021-08-19 2021[facility] [id number] Univers 13:00:00 13:30:00 Procedure 32869.1.1 it y of 3.412.2.7 [place] .3.287216 MD [facility] 2021-08-19 2021-08-19 [facility].840[facility]1 [id number] Univers 13:00:00 13:30:00 Procedure 25433.1.1 it y of 3.412.2.7 [place] .3.542125 MD [facility] 2021-08-19 2021-08-19 [facility] 1.2.840.1 [id number] Univers 10:30:00 11:00:00 Procedure 08272.1.1 it y of 3.412.2.7 [place] .3.361881 MD [facility] 2021-08-19 2021-08-19 [facility] 1.2.840.1 [id number] Univers 10:30:00 11:00:00 Procedure 66582.1.1 it y of 3.412.2.7 [place] .3.903064 MD [facility] 2021-08-19 2021-08-19 [facility] 1.2.840.1 [id number] 1 [id number] Univers 06:57:22 10:50:00 Encounter 09099.1.1 it y of 3.412.2.7 [place] .3.373542 MD [facility] 2021-08-19 2021-08-19 [facility] 1.2.840.1 [id number] 1 [id number] Univers 06:57:22 10:50:00 Encounter 59128.1.1 it y of 3.412.2.7 [place] .3.723544 MD [facility] 2021-08-19 2021-08-19 Travel 1.2.840.1 1.2.512.465 2018 [id number] Univers 00:00:00 00:00:00 06649.1.1 350.1.13.41 ity of 3.412.2.7 2.2[place]7.3.698 [place] .3.308151 084.8 MD [facility] 2021-08-19 2021-08-19 Travel 1.2.840.1 1.2.082.100 2482 [id number] Univers 00:00:00 00:00:00 22321.1.1 350.1.13.41 ity of 3.412.2.7 2.2[place]7.3.698 [place] .3.708272 084.8 MD [facility] 2021-08-05 2021-08-05 [facility] 1.2.840.1 [id number] 1 [id number] Univers 10:00:00 23:59:00 Encounter 50990.1.1 it y of 3.412.2.7 [place] .3.381855 MD [facility] 2021-08-05 2021-08-05 [facility] 1.2.840.1 [id number] 1 [id number] Univers 10:00:00 23:59:00 Encounter 98668.1.1 it y of 3.412.2.7 [place] .3.821315 MD [facility] 2021-08-05 2021-08-05 [facility]1 [id number] 1 [id number] Univers 12:15:00 14:15:00 Malinda Whitley 18730.1.1 ity of 3.412.2.7 [place] .3.975966 MD [facility] 2021-08-05 2021-08-05 [facility] 1.2.840.1 [id number] 1 [id number] Univers 12:15:00 14:15:00 Malinda Whitley 49743.1.1 ity of 3.412.2.7 [place] .3.788025 MD [facility] 2021-08-05 2021-08-05 Office Roderick, 1.2.840.1 [id number] 1091 [id number] Univers 11:30:00 12:17:58 Visit Joan 41015.1.1 ity of 3.412.2.7 [place] .3.187825 MD [facility] 2021-08-05 2021-08-05 Office Roderick, 1.2.840.1 [id number] 1091 [id number] [facility] 11:30:00 12:17:58 Visit Joan 48734.1.1 ity of 3.412.2.7 [place] .3.476236 MD [facility] 2021-08-05 2021-08-05 Travel 1.2.840.1 1.2.497.202 4318 [id number] Univers 00:00:00 00:00:00 90569.1.1 350.1.13.41 ity of 3.412.2.7 2.2[place]7.3.698 [place] .3.977[place] 084.Zach Banuelos [facility] 2021-08-05 2021-08-05 Travel 1.2.840.1 1.2.254.315 4821 [id number] Univers 00:00:00 00:00:00 47405.1.1 350.1.13.41 ity of 3.412.2.7 [place]3.698 [place] .3.366361 084.Zach Banuelos [facility] 2021-07-24 2021-07-24 Candelario Dorsey 1.2.840.1 [id number] 10 [id number] Univers 00:00:00 00:00:00 Only 98483.1.1 ity of 3.412.2.7 [place] .3.740236 MD Banuelos [facility] 2021-07-24 2021-07-24 Candelario Dorsey 1.2.840.1 [id number] 10 [id number] Univers 00:00:00 00:00:00 Only 10988.1.1 ity of 3.412.2.7 [place] .3.090965 MD Banuelos [facility] 2021-07-22 2021-07-22 [facility] Candelario Hernandez 1.2.840.1 [id number] 1 [id number] Univers 08:45:00 23:59:00 Encounter 98903.1.1 it y of 3.412.2.7 [place] .3.731338 MD Bell8 [facility] 2021-07-22 2021-07-22 [facility] 1.2.840.1 [id number] 1 [id number] Univers 08:45:00 23:59:00 Encounter 98322.1.1 it y of 3.412.2.7 [place] .3.945343 MD Bell8 [facility] 2021-07-22 2021-07-22 [facility] 1.2.840.1 [id number] 1 [id number] Univers 11:00:00 13:17:37 25661.1.1 ity of 3.412.2.7 [place] .3.902284 MD Bell8 [facility] 2021-07-22 2021-07-22 [facility] 1.2.840.1 [id number] 1 [id number] Univers 11:00:00 13:17:37 05028.1.1 ity of 3.412.2.7 [place] .3.064156 MD Banuelos [facility] 2021-07-22 2021-07-22 Landon Vaughn, 1.2.840.1 [id number] 1 [id number] Univers 10:30:00 11:00:00 ne Joan 33357.1.1 ity of 3.412.2.7 [place] .3.976883 MD Bell8 [facility] 2021-07-22 2021-07-22 Telemlui Vaughn, 1.2.840.1 [id number] 1 [id number] Univers 10:30:00 11:00:00 ne Joan 11042.1.1 ity of 3.412.2.7 [place] .3.714746 MD Bell8 [facility] 2021-07-22 2021-07-22 Irvin Jean 1.2.840.1 [id number] Univers 00:00:00 00:00:00 Only 81979.1.1 ity of 3.412.2.7 [place] .3.439326 MD Banuelos [facility] 2021-07-22 2021-07-22 Travel 1.2.840.1 1.2.133.825 4924 [id number] Univers 00:00:00 00:00:00 09770.1.1 350.1.13.41 ity of 3.412.2.7 [place]7.3.698 [place]3.8634[place] 084.8 MD Banuelos [facility] 2021-07-22 2021-07-22 Irvin Jean 1.2.840.1 [id number] Univers 00:00:00 00:00:00 Only 94899.1.1 ity of 3.412.2.7 [place] .3.583152 MD Banuelos [facility] 2021-07-22 2021-07-22 Travel 1.2.840.1 1.2.064.346 2520 [id number] Univers 00:00:00 00:00:00 16511.1.1 350.1.13.41 ity of 3.412.2.7 [place]7.3.698 [place] .3.435509 084.8 MD Banuelos [facility] 2021-07-15 2021-07-15 Rosa Isela Parker 1.2.840.1 [id number] Univers 13:00:00 13:30:00 Sara Alba 19492.1.1 ity of 3.412.2.7 [place] .3.817372 MD Banuelos [facility] 2021-07-15 2021-07-15 Nutrition Rosa Isela Betancourt 1.2.840.1 [id number] Univers 13:00:00 13:30:00 Sara Alba 48874.1.1 ity of 3.412.2.7 [place] .3.017726 MD Banuelos [facility] 2021-07-08 2021-07-08 Deon Ribeiro 1.2.840.1 [id number] Univers 09:47:24 23:59:00 Encounter Ale 58758.1.1 ity of 3.412.2.7 [place] .3.213691 MD Bell8 [facility] 2021-07-08 2021-07-08 [facility], 1.2.840.1 [id number] Univers 09:47:24 23:59:00 Encounter Ale 25141.1.1 ity of 3.412.2.7 [place] .3.412031 MD Bell8 [facility] 2021-07-08 2021-07-08 Infusion aCndelario Hernandez 1.2.840.1 [id number] 1 [id number] Univers 09:00:00 13:53:45 32139.1.1 ity of 3.412.2.7 [place] .3.539640 MD Banuelos [facility] 2021-07-08 2021-07-08 Candelario Ortiz 1.2.840.1 [id number] 1 [id number] Univers 09:00:00 13:53:45 25387.1.1 ity of 3.412.2.7 [place] .3.074870 MD Bell8 [facility] 2021-07-08 2021-07-08 Office Roderick 1.2.840.1 [id number] [id number] Univers 13:30:00 13:30:00 Visit Joan 99512.1.1 ity of 3.412.2.7 [place] .3.388059 MD Bell8 [facility] 2021-07-08 2021-07-08 Office Roderick, 1.2.840.1 [id number] [id number] Univers 13:30:00 13:30:00 Visit Joan 31851.1.1 ity of 3.412.2.7 [place] .3.879369 MD [facility] 2021-07-08 2021-07-08 Orders Candelario Hernandez 1.2.840.1 [id number] 10 [id number] Univers 00:00:00 00:00:00 Only 33717.1.1 ity of 3.412.2.7 [place] .3.211555 MD [facility] 2021-07-08 2021-07-08 Travel 1.2.840.1 1.2.989.852 8316 [id number] Univers 00:00:00 00:00:00 90915.1.1 350.1.13.41 ity of 3.412.2.7 [place].3.698 [place] 084.8 MD [facility] 2021-07-08 2021-07-08 Orders Candelario Hernandez 1.2.840.1 [id number] Univers 00:00:00 00:00:00 Only 66365.1.1 ity of 3.412.2.7 [place] .3.111343 MD [facility] 2021-07-08 2021-07-08 Travel 1.2.840.1 1.2.989.734 3753 [id number] Univers 00:00:00 00:00:00 79415.1.1 350.1.13.41 ity of 3.412.2.7 [place].3.698 [place]25[place] 084.8 MD [facility] 2021-07-03 2021-07-03 Outpatient DANNI VERGARA MDA MDA [id number] 09:42:33 10:10:59 NAIN ball 2021-06-24 2021-06-24 [facility] DANNI Vaughn 1.2.840.1 [id number] Univers 11:30:00 23:59:00 Miley Howell 11937.1.1 it y of 3.412.2.7 [place] .3.519925 MD [facility] 2021-06-24 2021-06-24 [facility] Joan Garcia 1.2.840.1 [id number] Univers 13:30:00 15:30:00 Tanya Cortes 15996.1.1 ity of 3.412.2.7 [place] .3.966378 MD [facility] 2021-06-24 2021-06-24 Telemedici EL Roderick, 1.2.840.1 [id number] 1 [id number] Univers 13:00:00 13:30:00 ne Joan 07723.1.1 ity of 3.412.2.7 [place] .3.891423 MD Bell8 [facility] 2021-06-24 2021-06-24 Orders Bell, 1.2.840.1 [id number] Univers 00:00:00 00:00:00 Only Ruth 02946.1.1 ity of 3.412.2.7 [place] .3.203368 MD Bell8 [facility] 2021-06-24 2021-06-24 Travel 1.2.840.1 1.2.009.804 5601 [id number] Univers 00:00:00 00:00:00 26387.1.1 350.1.13.41 ity of 3.412.2.7 [place]7.3.698 [place].04[place] 084.8 .8 [facility] 2021-06-18 2021-06-18 Ancillary DANNI Gongora, 1.2.840.1 [id number] Univers 23:35:00 23:40:00 Procedure John 41529.1.1 it y of 3.412.2.7 [place] .3.247061 MD [facility] 2021-06-15 2021-06-18 [facility] Tay Holliday 1.2.840.1 [id number] [id number] Univers 07:30:00 12:30:00 Encounter Emmanuelle Lowe 60994.1.1 ity of Vincent Stinson 3.412.2.7 [place] .3.886289 MD [facility] 2021-06-17 2021-06-17 Inpatient DANNI HOLLIDAY MDA MDA [id number] 07:46:03 18:23:24 TAY ball 2021-06-15 2021-06-15 Inpatient DANNI WILKERSON [facility] [id number] 17:53:12 18:20:23 ANDREINA ball 2021-06-15 2021-06-15 Travel 1.2.840.1 1.2.314.710 3195 [id number] Univers 00:00:00 00:00:00 07162.1.1 350.1.13.41 ity of 3.412.2.7 [place].3.698 [place].35[place] 084.8 MD [facility] 2021-06-10 2021-06-10 [facility] Candelario Hernandez 1.2.840.1 [id number] 1 [id number] Univers 11:45:00 16:38:07 Crystal Tineo 00449.1.1 ity of 3.412.2.7 [place] .3.197403 MD [facility] 2021-06-10 2021-06-10 Office DANNI Vaughn, 1.2.840.1 [id number] [id number] Univers 10:30:00 12:21:10 Visit Joan 56612.1.1 ity of 3.412.2.7 [place] .3.334976 MD [facility] 2021-06-10 2021-06-10 Orders Quintin, 1.2.840.1 [id number] Univers 00:00:00 00:00:00 Only Ale 76874.1.1 i ty of 3.412.2.7 [place] .3.530645 MD [facility] 2021-06-10 2021-06-10 Travel 1.2.840.1 1.2.708.798 5060 [id number] Univers 00:00:00 00:00:00 44130.1.1 350.1.13.41 ity of 3.412.2.7 [place]7.3.698 [place]3.85[place] 084.8 MD [facility] 2021-06-07 2021-06-07 Hospital Candelario Hernandez 1.2.840.1 [id number] 1 [id number] Univers 10:45:41 23:59:00 Encounter 13864.1.1 it y of 3.412.2.7 [place] .3.533356 MD [facility] 2021-06-07 2021-06-07 Travel 1.2.840.1 1.2.987.966 7157 [id number] Univers 00:00:00 00:00:00 70518.1.1 350.1.13.41 ity of 3.412.2.7 [place]7.3.698 [place]3.0130[place] 084.8 MD [facility] 2021-06-06 2021-06-06 [facility] 1.2.840.1 [id number] 1 [id number] Univers 08:30:00 23:59:00 Encounter 15001.1.1 it y of 3.412.2.7 [place] .3.851520 MD [facility] 2021-06-06 2021-06-06 [facility].2.840.1 [id number] Univers 11:30:00 12:00:00 Procedure 85893.1.1 it y of 3.412.2.7 [place] .3.087077 MD [facility] 2021-06-06 2021-06-06 [facility] 1.2.840.1 [id number] Univers 09:00:00 09:30:00 Procedure 13658.1.1 it y of 3.412.2.7 [place] .3.773271 MD [facility] 2021-06-06 2021-06-06 Travel 1.2.840.1 1.2.139.888 1802 [id number] Univers 00:00:00 00:00:00 32632.1.1 350.1.13.41 ity of 3.412.2.7 2.[place].7.3.698 [place]3.01[place] 084Arabella8 MD [facility] 2021-05-27 2021-05-27 [facility] [place] 1.2.[place].1 [id number] 1 [id number] Univers 08:30:00 23:59:00 Encounter 56820.1.1 it y of 3.412.2.7 [place] .3.186242 MD Bell8 [facility] 2021-05-27 2021-05-27 [facility] 1.2.840.1 [id number] 1 [id number] Univers 12:45:00 13:26:52 Mary Lou Junior 65209.1.1 ity of 3.412.2.7 [place] .3.431261 MD Bell8 [facility] 2021-05-27 2021-05-27 Telemedici DANNI Vaughn, 1.2.840.1 [id number] 1 [id number] Univers 10:30:00 11:00:00 ne Joan 27717.1.1 ity of 3.412.2.7 [place] .3.371767 MD [facility] 2021-05-27 2021-05-27 Orders Quintin, 1.2.840.1 [id number] Univers 00:00:00 00:00:00 Only Ale 32386.1.1 i ty of 3.412.2.7 [place] .3.339239 MD Bell8 [facility] 2021-05-27 2021-05-27 Orders David, 1.2.840.1 [id number] Univers 00:00:00 00:00:00 Only Lilibeth Velez 20501.1.1 it y of 3.412.2.7 [place] .3.182499 MD Bell8 [facility] 2021-05-27 2021-05-27 Travel 1.2.840.1 1.2.015.826 2159 [id number] Univers 00:00:00 00:00:00 40654.1.1 350.1.13.41 ity of 3.412.2.7 [place]7.3.698 [place]3.0297[place] 084.8 MD [facility] 2021-05-15 2021-05-15 [facility] [place], 1.2.840.1 [id number] Univers 00:00:00 00:00:00 Only Baylee Carbone 44718.1.1 it y of 3.412.2.7 [place] .3.783270 MD [facility] 2021-05-13 2021-05-13 [facility] Corinwy 1.2.840.1 [id number] 1 [id number] Univers 09:00:00 23:59:00 Encounter 96928.1.1 it y of 3.412.2.7 [place] .3.129822 MD Bell8 [facility] 2021-05-13 2021-05-13 [facility] 1.2.840.1 [id number] 1 [id number] Univers 11:00:00 16:35:07 57901.1.1 ity of 3.412.2.7 [place] .3.607638 MD [facility] 2021-05-13 2021-05-13 Office DANNI Vaughn, 1.2.840.1 [id number] 1090 [id number] Univers 10:00:00 10:44:29 Visit Joan 59587.1.1 ity of 3.412.2.7 [place] .3.697248 MD [facility] 2021-05-13 2021-05-13 [facility] 1.2.840.1 1.2.163.048 2679 [id number] Univers 00:00:00 00:00:00 79801.1.1 350.1.13.41 ity of 3.412.2.7 [place]7.3.698 [place] 084.8 MD [facility] 2021-05-05 2021-05-05 Outpatient DANNI NIXON MDA MDA [id number] 07:37:12 08:07:37 FER ball 2021-04-30 2021-04-30 Outpatient DANNI VAUGHN MDA MDA [id number] 07:22:02 07:22:02 JOAN Mitchell o n 2021-04-29 2021-04-29 Outpatient [facility] MDA MDA [id number] MD 06:45:00 23:59:00 Mitchell o n 2021-04-29 2021-04-29 Outpatient [facility] MDA MDA [id number] 09:59:17 15:19:40 Mitchell o n 2021-04-15 2021-04-15 Outpatient [facility] MDA MDA [id number] 08:45:00 23:59:00 Mitchell o n 2021-04-15 2021-04-15 Outpatient [facility], MDA MDA [id number] MD 09:34:43 11:02:17 JOAN Mitchell o n 2021-04-15 2021-04-15 [facility], [facility] MDA MDA [id number] 10:38:28 10:38:28 Mitchell o n 2021-04-04 2021-04-04 [facility], MDA MDA [id number] 12:00:43 12:00:43 JONA Mitchell o n 2021-04-01 2021-04-01 [facility], [facility] MDA MDA [id number] 09:25:17 23:59:00 Mitchell o n 2021-04-01 2021-04-01 [facility], [facility] MDA MDA [id number] 11:09:32 15:29:21 Mitchell o n 2021-04-01 2021-04-01 Outpatient [facility], MDA MDA [id number] 09:48:04 12:45:27 JOAN Mitchell o n 2021-03-31 2021-03-31 Outpatient [facility] MDA MDA [id number] 10:37:06 23:59:00 Mitchell o n 2021-03-28 2021-03-28 Outpatient [facility] JOHI MDA MDA [id number] 12:47:44 12:47:44 Mitchell o n 2021-03-28 2021-03-28 Outpatient EL UTCANDELARIO HEARN MDA MDA [id number] 09:53:23 09:53:23 Mitchell o n 2021-03-21 2021-03-21 Outpatient CANDELARIO GRANT MDA MDA [id number] 09:25:27 23:59:00 Mitchell o n 2021-03-19 2021-03-19 [facility] [id number] MD 11:20:33 11:20:33 JOAN Mitchell o n 2021-03-18 2021-03-18 Outpatient CANDELARIO GRANT MDA MDA [id number] 09:35:51 11:40:46 Mitchell o n 2021-03-17 2021-03-17 Outpatient DANNI ADAMSCANDELARIO Mcdermott MDA MDA [id number] 13:16:48 23:59:00 Mitchell o n 2021-03-10 2021-03-10 Outpatient [facility], MDA MDA [id number] 10:44:50 23:59:00 FLAVIA Wrayers o n 2021-03-10 2021-03-10 Outpatient [facility], MDA MDA [id number] 12:25:34 12:57:08 FER Wrayers o quinn 2021-03-04 2021-03-04 Outpatient CANDELARIO HERNANDEZ MDA MDA [id number] 08:00:00 23:59:00 Mitchell o n 2021-03-04 2021-03-04 [facility] MDA [id number] 08:20:39 16:09:40 JOAN Wrayers o n 2021-03-04 2021-03-04 [facility] MDA [id number] 10:11:14 14:15:12 JOAN Mitchell o n 2021-03-04 2021-03-04 Outpatient [facility], MDA MDA [id number] 13:24:53 13:24:53 JOAN Wrayers o n 2021-03-04 2021-03-04 [facility] MDA [id number] 13:24:39 13:24:39 JOAN Mitchell o n 2021-02-20 2021-02-20 [facility] MDA [id number] MD 06:54:26 06:54:26 JOAN Mitchell o n 2021-02-19 2021-02-19 [facility] MDA [id number] MD 10:47:20 10:47:20 JOAN Mitchell o n 2021-02-19 2021-02-19 [facility] MDA [id number] MD 10:46:55 10:46:55 JOAN Mitchell o n 2021-02-18 2021-02-18 Outpatient [facility] MDA MDA [id number] MD 10:02:06 11:51:00 Mitchell o n 2021-02-17 2021-02-17 Outpatient [facility] MDA MDA [id number] MD 11:38:38 23:59:00 Mitchell o n 2021-02-04 2021-02-04 [facility] MDA [id number] 09:57:30 15:46:10 JOAN Mitchell o n 2021-02-04 2021-02-04 Outpatient [facility] MDA MDA [id number] MD 12:12:31 15:19:41 Mitchell o n 2021-02-03 2021-02-03 Outpatient EL MDA MDA [id number] MD 13:13:39 23:59:00 Mitchell o n 2021-02-03 2021-02-03 Outpatient EL MDA MDA [id number] MD 10:11:36 13:12:00 Mitchell o n 2021-02-03 2021-02-03 Outpatient EL MDA MDA [id number] MD 12:04:24 12:04:24 Mitchell o n 2021-02-03 2021-02-03 Outpatient EL MDA MDA [id number] MD 09:22:01 09:22:01 Mitchell o n 2021-01-22 2021-01-22 Outpatient [facility], MDA MDA [id number] MD 11:27:04 11:27:04 JOAN Mitchell o n 2021-01-21 2021-01-21 Outpatient [facility] MDA MDA [id number] 09:00:00 23:59:00 Mitchell o n 2021-01-21 2021-01-21 Outpatient [facility] MDA MDA [id number] MD 10:52:04 16:38:21 Mitchell o n 2021-01-07 2021-01-07 Outpatient [facility] MDA MDA [id number] MD 09:45:00 23:59:00 Mitchell o n 2021-01-07 2021-01-07 Outpatient RODERICK, MDA MDA [id number] MD 09:44:10 11:02:42 JOAN Mitchell o n 2021-01-07 2021-01-07 Outpatient [facility] MDA MDA [id number] MD 08:56:19 09:44:00 Mitchell o n 2021-01-06 2021-01-06 Outpatient TALIB, MDA MDA [id number] MD 14:48:37 15:16:07 HUNTER Mitchell o n 2020-12-25 2020-12-25 Outpatient [facility] MDA MDA [id number] MD 09:02:58 09:02:58 Mitchell o n 2020-12-24 2020-12-24 Outpatient MDA MDA [id number] MD 10:26:32 23:59:00 Mitchell o n 2020-12-24 2020-12-24 Outpatient NABEEL MDA MDA [id number] MD 10:56:40 14:13:28 DUANE KAPADIA And ajayo n 2020-12-10 2020-12-10 Outpatient [facility] MDA MDA [id number] MD 11:40:31 23:59:00 Mitchell o n 2020-12-10 2020-12-10 Outpatient [facility] MDA MDA [id number] MD 14:11:26 16:52:31 Mitchell o n 2020-12-10 2020-12-10 [facility] [id number] MD 12:37:59 14:11:30 JOAN Mitchell o n 2020-12-05 2020-12-05 Outpatient MAKI, MDA MDA [id number] MD 15:30:30 16:06:06 MORE Mitchell o n 2020-11-27 2020-11-27 Outpatient [place], MDA MDA [id number] MD 09:40:56 23:59:00 BRANNON Mitchell o quinn 2020-11-27 2020-11-27 Outpatient [facility], MDA MDA [id number] 10:13:01 10:13:01 JOAN ball 2020-11-26 2020-11-26 Outpatient [facility] MDA MDA [id number] 10:03:25 23:59:00 Mitchell o quinn 2020-11-26 2020-11-26 Outpatient [facility] MDA MDA [id number] 10:42:37 13:47:40 Mitchell o quinn 2020-11-12 2020-11-12 Outpatient [facility] MDA MDA [id number] 13:00:00 23:59:00 Mitchell o quinn 2020-11-12 2020-11-12 Outpatient [facility], MDA MDA [id number] 10:14:16 13:08:15 JOAN ball 2020-11-12 2020-11-12 Outpatient [facility] MDA MDA [id number] 09:59:52 12:59:00 Mitchell o quinn 2020-11-08 2020-11-08 Outpatient [facility] MDA MDA [id number] 12:04:02 12:04:02 Mitchell o quinn 2020-11-08 2020-11-08 Outpatient [facility] MDA MDA [id number] 11:16:06 11:16:06 Mitchell o quinn 2020-11-08 2020-11-08 Outpatient [facility] MDA MDA [id number] 08:38:11 08:38:11 Mitchell o quinn 2020-10-30 2020-10-30 Outpatient [facility], MDA MDA [id number] 07:57:01 07:57:01 JOAN ball 2020-10-29 2020-10-29 Outpatient [facility] MDA MDA [id number] 09:00:00 23:59:00 Mitchell o quinn 2020-10-29 2020-10-29 Outpatient [facility] MDA MDA [id number] MD 10:54:59 14:09:00 Mitchell o n 2020-10-15 2020-10-15 Outpatient [facility] MDA MDA [id number] MD 12:45:00 23:59:00 Mitchell o n 2020-10-15 2020-10-15 Outpatient [facility] MDA MDA [id number] 14:16:48 19:35:53 Mitchell o n 2020-10-15 2020-10-15 [facility] MDA MDA [id number] 13:13:07 14:10:53 JOAN Medrano o n 2020-10-01 2020-10-01 Outpatient [facility] MDA MDA [id number] 13:32:03 23:59:00 Mitchell o n 2020-10-01 2020-10-01 Outpatient [facility] JOHI MDA MDA [id number] MD 10:16:45 13:31:00 Mitchell o n 2020-10-01 2020-10-01 Outpatient [facility] MDA MDA [id number] 07:45:00 10:15:00 Mitchell o n 2020-10-01 2020-10-01 Outpatient [facility], MDA MDA [id number] 08:16:32 10:01:11 JOAN Medrano o quinn 2020-09-17 2020-09-18 Outpatient [facility] JOHI MDA MDA [id number] 10:53:03 09:46:15 Mitchell o n 2020-09-17 2020-09-17 Outpatient [facility] MDA MDA [id number] 09:00:00 23:59:00 Mitchell o n 2020-09-17 2020-09-17 Outpatient [facility], MDA MDA [id number] 09:36:42 10:43:11 JOAN Wrayers o quinn 2020-09-04 2020-09-04 Outpatient [facility], MDA MDA [id number] 13:48:47 14:05:43 BRANDAN Porras so quinn 2020-09-03 2020-09-03 Outpatient [facility], MDA MDA [id number] 14:17:50 23:59:00 JOAN ball 2020-09-03 2020-09-03 [facility] MDA [id number] 12:00:00 14:16:00 JOAN Wrayers o quinn 2020-09-03 2020-09-03 [facility] MDA [id number] MD 12:18:23 14:13:58 JOAN Medrano o quinn 2020-08-30 2020-08-30 [facility] MDA MDA [id number] 07:00:00 23:59:00 JOAN Wrayers o quinn 2020-08-30 2020-08-30 [facility] MDA [id number] MD 13:03:24 13:03:24 JOAN ball 2020-08-30 2020-08-30 [facility] MDA MDA [id number] 07:32:13 09:39:27 JOAN ball 2020-08-30 2020-08-30 [facility] MDA [id number] 09:34:58 09:34:58 JOAN ball 2020-08-21 2020-08-27 Inpatient ER [place], MDA Oncology [id number] 19:34:00 14:03:00 BRANNON ball 2020-08-19 2020-08-19 Outpatient JONATAN, MDA MDA [id number] 13:08:43 13:08:43 VON ball 2020-08-19 2020-08-19 [facility] MDA MDA [id number] 12:56:14 12:56:14 VON ball 2020-08-16 2020-08-16 [facility] MDA [id number] 12:55:54 12:55:54 JOAN ball 2020-08-13 2020-08-13 [facility] MDA [id number] 10:00:00 23:59:00 JOAN ball 2020-08-13 2020-08-13 [facility] MDA [id number] 10:28:35 14:30:54 JOAN ball 2020-08-09 2020-08-09 Outpatient RODERICK, MDA MDA [id number] 13:23:14 23:59:00 JOAN ball 2020-08-05 2020-08-07 Inpatient ER ANITA, MDA Oncology [id number] 17:36:00 15:24:00 REAL ball 2020-07-30 2020-07-31 Outpatient [facility]OHI MDA MDA [id number] 12:25:06 08:45:42 Mitchell o quinn 2020-07-30 2020-07-30 [facility] MDA [id number] 11:37:19 12:22:46 JOAN ball 2020-07-29 2020-07-29 Outpatient [facility] MDA MDA [id number] 13:16:54 23:59:00 Mitchell ball 2020-07-29 2020-07-29 Outpatient [facility] MDA MDA [id number] 15:38:15 15:38:15 Mitchell ball 2020-07-29 2020-07-29 Outpatient [facility] MDA MDA [id number] 15:03:04 15:03:04 Mitchell o quinn 2020-07-29 2020-07-29 Outpatient [facility] MDA MDA [id number] 12:33:54 12:33:54 Mitchell ball 2020-07-23 2020-07-23 Outpatient RONALD, MDA MDA [id number] 11:24:36 12:05:37 DEANA ball 2020-07-16 2020-07-17 Outpatient [facility] MDA MDA [id number] 10:19:39 07:19:08 Mitchell o quinn 2020-07-16 2020-07-16 Outpatient [facility] MDA MDA [id number] 08:45:00 23:59:00 Mitchell o quinn 2020-07-16 2020-07-16 [facility] MDA [id number] 09:28:43 10:17:16 JOAN ball 2020-07-082020-07-08 Outpatient [facility], MDA MDA [id number] 10:00:00 23:59:00 JOAN ball 2020-07-02 2020-07-02 Outpatient [facility] MDA MDA [id number] 12:45:00 23:59:00 Mitchell o quinn 2020-07-02 2020-07-02 Outpatient [facility], MDA MDA [id number] 13:04:56 15:56:11 JOAN ball 2020-07-02 2020-07-02 Outpatient [facility] MDA MDA [id number] 14:10:51 14:10:51 Mitchell o quinn 2020-06-18 2020-06-19 Outpatient [facility] MDA MDA [id number] 10:17:32 07:56:43 Mitchell o quinn 2020-06-18 2020-06-18 Outpatient [facility], MDA MDA [id number] 12:55:25 23:59:00 JOAN ball 2020-06-18 2020-06-18 Outpatient [facility] MDA MDA [id number] 08:15:00 12:54:00 Mitchell o quinn 2020-06-18 2020-06-18 Outpatient [facility], MDA MDA [id number] 09:01:04 10:21:53 JOAN ball 2020-06-04 2020-06-04 Outpatient [facility] MDA MDA [id number] 14:56:31 23:59:00 Mitchell o quinn 2020-06-04 2020-06-04 Outpatient [facility] MDA MDA [id number] 14:00:00 14:55:00 Mitchell o quinn 2020-06-04 2020-06-04 Outpatient [facility], MDA MDA [id number] 07:06:20 07:06:20 JOAN ball 2020-05-17 2020-05-17 Outpatient [facility] MDA MDA [id number] 12:42:05 23:59:00 Mitchell o quinn 2020-05-172020-05-17 Outpatient [facility] MDA MDA [id number] 10:44:34 12:41:00 Mitchell o n 2020-05-17 2020-05-17 [facility] MDA [id number] MD 11:16:10 11:16:10 JOAN Mitchell o n 2020-05-09 2020-05-09 Outpatient [facility] MDA MDA [id number] 11:59:00 23:59:00 Mitchell o n 2020-05-05 2020-05-05 Outpatient [facility], MDA MDA [id number] MD 13:58:02 15:43:21 JOAN Mitchell o n 2020-05-03 2020-05-03 Outpatient [facility] MDA MDA [id number] 09:30:00 23:59:00 Mitchell o n 2020-05-03 2020-05-03 Outpatient [facility] [place] MDA MDA [id number] 11:39:34 11:39:34 Mitchell o n 2020-05-03 2020-05-03 Outpatient [facility], MDA MDA [id number] MD 10:10:33 11:28:39 JOAN Mitchell o n 2020-05-02 2020-05-02 Outpatient [facility] [place] MDA MDA [id number] 13:50:54 13:50:54 Mitchell o n 2020-05-02 2020-05-02 Outpatient [facility] [place] MDA MDA [id number] 11:12:06 11:12:06 Mitchell o n 2020-05-02 2020-05-02 Outpatient [facility] [place] MDA MDA [id number] 10:42:01 10:42:01 Mitchell o n 2020-04-19 2020-04-19 Outpatient [facility] [place] MDA MDA [id number] 09:45:00 23:59:00 Mitchell o n 2020-04-19 2020-04-19 Outpatient [facility] [place] MDA MDA [id number] 11:12:57 11:12:57 Mitchell o n 2020-04-19 2020-04-19 Outpatient DANNI VAUGHN, MDA MDA [id number] 10:02:02 10:58:43 JOAN ball 2020-04-08 2020-04-12 Inpatient UR GERMAINE-RAD MDA Oncology [id number] MD 10:34:00 17:48:00 VINCENT NOEdonald n 2020-04-11 2020-04-11 Inpatient HOWARD, MDA MDA [id number] MD 14:52:27 14:55:30 REAL ball 2020 2020 Inpatient LINDA, MDA MDA [id number] MD 07:31:34 10:18:58 STERLING ball 2020-04-09 2020-04-09 Inpatient HOWARD, MDA MDA [id number] MD 05:10:40 05:21:31 REAL ball 2020-04-06 2020-04-06 Outpatient DANNI ERIC, MDA MDA [id number] 14:05:32 14:25:13 JAVY ball 2020-04-04 2020-04-04 Outpatient DANNI VAUGHN, MDA MDA [id number] 14:56:45 23:59:00 JOAN ball 2020-03-26 2020-03-29 Outpatient DANNI VAUGHN, MDA MDA [id number] 12:16:18 07:17:04 JOAN ball 2020-03-26 2020-03-26 Outpatient DANNI VAUGHN, MDA MDA [id number] 09:00:00 23:59:00 JOAN ball 2020-03-26 2020-03-26 Outpatient DANNI VAUGHN, MDA MDA [id number] 10:00:12 12:12:36 JOAN ball 2020-03-18 2020-03-18 Outpatient DANNI VAUGHN, MDA MDA [id number] 10:00:00 23:59:00 JOAN ball 2020-03-05 2020-03-08 Inpatient DANNI LAWS, MDA Oncology [id number] 13:39:00 11:32:00 KATHIE ball 2020-03-07 2020-03-07 Inpatient DANNI LAWS, MDA MDA [id number] 11:28:25 11:47:30 KATHIE ball 2020-03-06 2020-03-06 Inpatient DANNI LAWS, MDA MDA [id number] MD 09:07:15 09:14:24 KATHIE ball 2020-03-05 2020-03-05 Inpatient DANNI CUNNINGHAM, MDA MDA [id number] MD 17:06:37 17:35:56 BRANNON ball 2020-03-05 2020-03-05 Outpatient EL RODERICK, MDA MDA [id number] 11:34:36 12:53:39 JOAN ball 2020-03-04 2020-03-04 Outpatient EL TERESAHALBRYANT, MDA MDA [id number] 09:32:00 23:59:00 JOAN ball 2020-03-03 2020-03-03 Outpatient RODERICK, MDA MDA [id number] 13:45:00 23:59:00 JOAN ball 2020-03-03 2020-03-03 Outpatient RODERICK, MDA MDA [id number] 14:08:57 14:08:57 JOAN ball 2020-02-13 2020-02-16 Inpatient SABRINA, MDA Oncology [id number] 18:46:00 13:18:00 LESLYE ball 2020-02-13 2020-02-13 Inpatient DANNI CUNNINGHAM, MDA MDA [id number] MD 23:13:20 23:31:26 BRANNON Medrano o quinn 2020-02-13 2020-02-13 Inpatient DANNI CUNNINGHAM, MDA MDA [id number] 21:31:50 21:45:21 BRANNON Wrayers o quinn 2020-02-13 2020-02-13 Outpatient EL ABILIO, MDA MDA [id number] 13:00:00 18:45:00 NAEL ball 2020-02-13 2020-02-13 Outpatient ALHALBRYANT, MDA MDA [id number] 13:57:51 15:41:54 JOAN Medrano o quinn 2020-02-09 2020-02-09 Outpatient TERESAHALBRYANT, MDA MDA [id number] 09:15:00 23:59:00 JOAN Medrano o quinn 2020-02-09 2020-02-09 Outpatient [facility], MDA MDA [id number] 12:19:57 14:14:33 JOAN Wrayers o n 2020-01-31 2020-01-31 Outpatient [facility], MDA MDA [id number] 11:15:00 23:59:00 JOAN Wrayers o n 2020-01-31 2020-01-31 Outpatient [facility], MDA MDA [id number] 12:12:44 20:04:29 JOAN Mitchell o n 2020-01-26 2020-01-29 Inpatient [facility], MDA Oncology [id number] 15:23:00 17:39:00 FREDDY Wrayers o n 2020-01-26 2020-01-26 Inpatient [facility], MDA MDA [id number] MD 17:07:44 17:25:25 BRANNON Wrayers o n 2020-01-26 2020-01-26 Outpatient [facility], MDA MDA [id number] 12:42:14 14:47:37 JOAN Wrayers o n 2020-01-25 2020-01-25 Outpatient [facility], MDA MDA [id number] 17:15:00 23:59:00 JOAN Mitchell o n 2020-01-25 2020-01-25 Outpatient [facility], MDA MDA [id number] 18:12:28 18:12:28 JOAN Wrayers o n 2020-01-09 2020-01-12 Inpatient [facility] MDA Oncology [id number] 10:26:00 15:18:00 VINCENT NOE 2020-01-09 2020-01-09 Inpatient [facility], MDA MDA [id number] 12:19:38 12:37:07 REAL Wrayers giuseppe ball 2020-01-09 2020-01-09 Outpatient [facility], MDA MDA [id number] 07:45:00 09:54:00 JOAN Wrayers o quinn 2020-01-09 2020-01-09 Outpatient [facility], MDA MDA [id number] 08:17:10 09:26:39 JOAN Wrayers o n 2020-01-02 2020-01-03 Outpatient [facility], MDA MDA [id number] 11:54:52 06:52:54 JOAN Wrayers o n 2020-01-02 2020-01-02 Outpatient EL ALHALABI, MDA MDA [id number] 07:56:20 23:59:00 JOAN Wrayers o n 2020-01-02 2020-01-02 Outpatient EL ALHALABI, MDA MDA [id number] MD 08:15:10 10:25:27 JOAN Wrayers o n 2019-12-29 2019-12-29 Outpatient EL LANI, MDA Surgical [id number] 07:16:00 12:25:00 ROSY Michelers o n 2019-12-29 2019-12-29 Outpatient EL MDA MDA [id number] 10:30:01 10:30:01 Mitchell o n 2019-12-29 2019-12-29 Outpatient EL MDA MDA [id number] MD 08:48:20 08:48:20 Mitchell o n 2019-12-29 2019-12-29 Outpatient LANI, MDA MDA [id number] MD 07:29:32 07:29:32 ROSY Wrayers o quinn 2019-12-29 2019-12-29 Outpatient EL MEGAN, MDA MDA [id number] 06:56:51 07:15:00 HANNAH Wrayers o quinn 2019-12-28 2019-12-28 Outpatient EL MADSENHOYOS, MDA MDA [id number] 10:36:07 11:18:17 GABRIELLE Mitchell o quinn 2019-12-28 2019-12-28 Outpatient EL JEAN, MDA MDA [id number] 07:18:17 07:18:17 JOHN Wrayers o quinn 2019-12-27 2019-12-27 Outpatient EL SUN, MDA MDA [id number] 15:37:17 15:37:17 СВЕТЛАНА Wrayers o quinn 2019-12-22 2019-12-22 Outpatient EL ANDREW-LAYA MDA MDA [id number] 09:54:00 23:59:00 Mitchell BOLAÑOS 2019-12-18 2019-12-21 Inpatient EL BRANDEE, MDA Oncology [id number] 14:35:00 12:11:00 BRANNON ball 2019-12-20 2019-12-20 Inpatient EL BRANDEE, MDA MDA [id number] 09:57:57 11:29:48 BRANNON ball 2019-12-18 2019-12-18 Inpatient EL HOWARD, MDA MDA [id number] MD 23:03:59 23:04:05 REAL ball 2019-12-18 2019-12-18 Inpatient EL ALHALABI, MDA MDA [id number] MD 20:32:28 21:42:13 JOAN ball 2019-12-18 2019-12-18 Inpatient EL HOWARD, MDA MDA [id number] MD 20:55:52 21:36:04 REAL ball 2019-12-18 2019-12-18 Outpatient EL ALHALABI, MDA MDA [id number] MD 12:26:14 14:33:40 JOAN ball 2019-12-18 2019-12-18 Outpatient EL PISTERS, MDA MDA [id number] MD 09:33:20 11:53:15 JOHN ball 2019-12-14 2019-12-15 Outpatient EL HOYOS, MDA Inter Rad [id number] MD 10:55:00 12:48:00 ISABEL ball 2019-12-13 2019-12-13 Outpatient EL PISTERS, MDA MDA [id number] 13:47:54 23:59:00 JOHN ball 2019-12-13 2019-12-13 Outpatient EL PISTERS, MDA MDA [id number] MD 13:54:57 13:54:57 JOHN ball 2019-12-13 2019-12-13 Outpatient EL PISTERS, MDA MDA [id number] 02:07:53 02:07:53 OJHN ball 2019-12-13 2019-12-13 Outpatient EL PISTERS, MDA MDA [id number] MD 02:07:52 02:07:52 JOHN ball 2019-12-13 2019-12-13 Outpatient EL PISTERS, MDA MDA [id number] MD 02:07:51 02:07:51 JOHN ball 2019-12-13 2019-12-13 Outpatient EL PISTERS, MDA MDA [id number] MD 02:07:51 02:07:51 JOHN ball 2019-12-13 2019-12-13 Outpatient EL PISTERS, MDA MDA [id number] MD 02:07:46 02:07:46 JOHN ball 2019-12-12 2019-12-12 Outpatient EL ALHALABI, MDA MDA [id number] 15:00:00 23:59:00 JOAN Medrano o quinn 2019-12-12 2019-12-12 Outpatient MELITON ALANIZ MDA MDA [id number] 17:23:28 17:36:54 Mitchell o quinn 2019-12-12 2019-12-12 Outpatient EL TERESAHALBRYANT, MDA MDA [id number] 10:47:51 14:59:00 JOAN Medrano o quinn 2019-12-12 2019-12-12 Outpatient EL TERESAHALBRYANT, MDA MDA [id number] 13:13:58 14:49:06 JOAN Medrano o quinn 2019-12-12 2019-12-12 Outpatient TERESAHALBRYANT, MDA MDA [id number] 14:45:33 14:45:33 JOAN Medrano o quinn 2019-12-12 2019-12-12 Outpatient MELITON ALANIZ MDA MDA [id number] 10:08:10 10:08:10 Mitchell o quinn 2019-12-12 2019-12-12 Outpatient MELITON ALANIZ MDA MDA [id number] 08:31:18 08:31:18 Mitchell o quinn 2019-12-07 2019-12-08 Outpatient EL PISTERS, MDA Urology [id number] 11:15:00 11:53:00 JOHN ball 2019-12-05 2019-12-05 Outpatient EL PISTERS, MDA MDA [id number] 12:57:57 23:59:00 JOHN ball 2019-12-05 2019-12-05 Outpatient EL PISTERS, MDA MDA [id number] 13:38:32 17:25:18 JOHN Medrano o quinn 2019-12-05 2019-12-05 Outpatient EL PISTERS, MDA MDA [id number] 13:21:06 13:21:06 JOHN ball 2019-12-05 2019-12-05 Outpatient EL ROMANIAN-BLOO MDA MDA [id number] 11:30:00 12:56:00 BrigitteLISA 2019-12-05 2019-12-05 Outpatient EL ALHALABI, MDA MDA [id number] 11:02:57 12:50:42 JOAN Medrano giuseppe ball 2019-12-04 2019-12-04 Outpatient EL PISAMRIK, MDA MDA [id number] 10:36:00 14:46:27 JOHN Wrayajay ball 2019-12-04 2019-12-04 Outpatient EL MDA MDA [id number] 10:29:51 10:30:00 Mitchell giuseppe ball 2019-12-01 2019-12-01 Outpatient EL JEAN, MDA MDA [id number] 11:17:05 13:40:04 JOHN Mitchellajay ball 2018-10-20 2018-11-19 Recurring nullFlavo TIRR [id number] Memoria 15:11:00 04:59:00 r [facility] 01 barbara Mosher Nomi 2018-10-20 2018-11-19 Recurring nullFlavo TIRR [id number] Memoria 15:11:00 04:59:00 r [facility] 01 barbara Mosher Nomi 2018-10-20 2018-11-18 Outpatient Kathryn, [facility] MHTIRR [id number] 10:11:00 23:59:00 Mouin F 2018-09-07 2018-10-07 Recurring nullFlavo TIRR [id number] Memoria 13:00:00 04:59:00 [facility] 2018-10-07 Recurring nullFlavo TIRR [id number] Memoria 13:00:00 04:59:00 [facility] barbara Pendleton Pendleton 2018-09-07 2018-10-06 Outpatient Kathryn, T[facility] TIRR [id number] 08:00:00 23:59:00 Mouin Results Test Description Test Time Test Comments Results Result Comments Source POC Creatinine 2022-06-18 18:24:24 Test Item Value Reference Range Interpretation Comme nts POC Crea (test code = 0.8 mg/dL 0.6-1.3 Medica tions, especially 92140-3) hydroxyurea or supplements, such as ascorba te, can interfere with test results causing a false ly and significantly h igher result than expected. If a problem is suspected with a patient's result, a sampl e should be sent to the lab oratory for confirmatory te sting. Method description: Th e i-STAT is an analyzer used f or in vitro quantification of various analytes in who le blood. The device uses a s rodri disposable cart ridge which contains microf abricated sensors, a emperatriz bration solution, fluid ics system, and a waste chamber . Each test cartridge conta ins chemically sensitive biose nsors on a silicon chip th at are configured to p erform specific tests. The micr ofabricated sensors measure analyte concentration b y an electrochemical assay. POC EGFR (test code = 93 See_Comment The eG FRcr [place] calculated with [address]) the 2020 CKD-EP I creatinine equation using creatinine, patient's age, and sex for adults 18 years of age and older. Other fa ctors, especially musc le mass, may affect accuracy and need to be considered.Acco rding to the Kidney Disease: Improving Global Outcomes (KDIGO) CKD Work Group 2012 Clinical Practice Guidel ine, chronic kidney disease (CKD) is defined as the abnormalities of kidney struc ture or function, prese nt for more than 3 months, with implications fo r health. CKD should be class ified by cause, GFR category, a nd albuminuria category. KDIGO guidelines provide the fol lowing GFR categoriesStage Description GFR mL/min/1.73 m2G1* Normal or high >= 90G2 * Mildly decreased 60-89 G3a Mildly to moderately decr eased 45-59G3b Moderately to s everely decreased 30-44 G4 Severely decreased 15-29 G5 Kidney failure <15*In the absence of evidence of kid hero damage, neither G1 nor G2 fulfill criteria for CK D. [Automated message] The sy stem which generated this result transmitted ref erence range: >=60 mL/min/1.7 3 sq. m. The reference range was not used to interpret th is result as normal/abnormal . POC Clean Dev (test code Yes = 6672) Performing Lab (test code [facility] = [address]) [place] MD [facility] ,[address], [place] [address], Pasta Maker: Olinda Henry [facility] w/[id number] 04:11:05 Test Item Value Reference Range Interpretation Comments Final Report (test No acid fast bacteria code = 8488) isolated at 8 weeks. Path Review - AFB Culture yield may be (test code = 8477) affected by sample quality, prior treatment, and transportation conditions....The results have been reviewed and electronically signed by Pathologist:Otoniel Houser MD, PhD #[id number] Acid Fast Stain No Acid Fast Bacilli seen Truant (test code = in direct smear 8495) MARIAM (test code = Cultures are held 8 weeks MARIAM) before finalization. [facility] [id number] 12:00:58 Test Item Value Reference Range Interpretation Comments CULTURE (BEAKER) (test No growth in 5 days code = 1095) BLOOD [id number] 12:00:58 Test Item Value Reference Range Interpretation Comments CULTURE (BEAKER) (test No growth in 5 days code = 1095) Urine [id number] 08:50:50 Test Item Value Reference Interpretation Comments Range Result (test code 10-19,000 col/mL A Refer to previous = 6463-4) Same organism has culture been isolated from ofStenotr ophomonas cultures(s) of the maltophil ia same body site within 3 days. Repeat identification and susceptibility testing performed only after consultation with the clinical microbiology laboratory. MARIAM (test code = MARIAM) Lab Interpretation Abnormal (test code = 96719-7) [facility]02 07:30:39 Test Item Value Reference Range Interpretation Comments MAGNESIUM (BEAKER) (test code = 1.5 mg/dL 1.6-2.6 L 627) Figure Model ID - ADMINBASIC METABOLIC [id number] 07:30:39 Test Item Value Reference Range Interpretation Comments SODIUM (BEAKER) 136 meq/L 136-145 (test code = 381) POTASSIUM 4.2 meq/L 3.5-5.1 (BEAKER) (test code = 379) CHLORIDE (BEAKER) 107 meq/L 98-107 (test code = 382) CO2 (BEAKER) 23 meq/L 22-29 (test code = 355) BLOOD UREA 20 mg/dL 7-21 NITROGEN (BEAKER) (test code = 354) CREATININE 0.60 mg/dL 0.57-1.25 (BEAKER) (test code = 358) GLUCOSE RANDOM 88 mg/dL 70-105 (BEAKER) (test code = 652) CALCIUM (BEAKER) 8.1 mg/dL 8.4-10.2 L (test code = 697) EGFR (BEAKER) 100 Interpretatio n of eGFR (test code = mL/min/1.73 values Stage De scription 1092) sq m Result G1 Arleen l or high >=90 G2 Mildly decreased 60-89 G3a Mildl y to moderately 45-5 9 G3b Moderately to s everely 30-44 G4 Severl y decreased 15-29 G5 Kidney failure <15Reported eGF R is based on the CKD-EPI 2020 equation that d oes not use a race coefficientEsti mated GFR is not as accur ate as Creatinine Corine lola in predicting glom erular filtration rate . Estimated GFR is not appl icable for dialysis patien ts Figure Model ID - MARCOOperator ID - ADMINCBC (HEMOGRAM ONLY)2022-05-07 05:05:50 Test Item Value Reference Range Interpretation Comments WHITE BLOOD CELL COUNT (BEAKER) 8.2 K/ L 3.5-10.5 (test code = 775) RED BLOOD CELL COUNT (BEAKER) 2.66 M/ L 4.63-6.08 L (test code = 761) HEMOGLOBIN (BEAKER) (test code = 7.4 GM/DL 13.7-17.5 L 410) HEMATOCRIT (BEAKER) (test code = 25.1 % 40.1-51.0 L 411) MEAN CORPUSCULAR VOLUME (BEAKER) 94 fL 79-92 H (test code = 753) MEAN CORPUSCULAR HEMOGLOBIN 27.8 pg 25.7-32.2 (BEAKER) (test code = 751) MEAN CORPUSCULAR HEMOGLOBIN CONC 29.5 GM/DL 32.3-36.5 L (BEAKER) (test code = 752) RED CELL DISTRIBUTION WIDTH 15.4 % 11.6-14.4 H (BEAKER) (test code = 412) PLATELET COUNT (BEAKER) (test 260 K/CU MM 150-450 code = 756) MEAN PLATELET VOLUME (BEAKER) 9.9 fL 9.4-12.4 (test code = 754) NUCLEATED RED BLOOD CELLS 0 /100 WBC 0-0 (BEAKER) (test code = 413) VANCOMYCIN LEVEL, [id number] 14:19:24 Test Item Value Reference Range Interpretation Comments VANCOMYCIN TROUGH (BEAKER) (test 20.9 ug/mL 10.0-20.0 H code = 522) Figure Model ID - ADMINBLOOD [id number] 09:42:11 Test Item Value Reference Range Interpretation Comments CULTURE A From Aerobic Oneil ttle (BEAKER) (test Only Same org anism has code = 1095) been isolated f rom cultures(s) of the same body site and collection date . Repeat identifi cation and susceptibil ity testing perform ed only after consultat ion with the [facility] microbiology laboratory.Refe r to previous cultur e of - Staphylococcus hominis GRAM STAIN From aerobic and RESULT (BEAKER) anaerobic (test code = bottles: gram 1123) positive cocci in clusters The specimen volume collected for this blood culture was below the optimum (10 mL per bottle or 20 mL total). Use of lower volumes may adversely affect recovery and/or detection times of some organisms.BLOOD [id number] 09:39:09 Test Item Value Reference Interpretation Comments Range CULTURE (BEAKER) STAPHYLOCOCCUS A From Aero bic (test code = 1095) HOMINIS Bottle On ly Staphylococcus hominis Clindamycin (test S code = 10) Erythromycin (test R code = 4) Linezolid (test code S = 40) Nitrofurantoin (test S code = 23) Oxacillin (test code S = 14) Rifampin (test code = S 43) Tetracycline (test S code = 2) Trimethoprim + R Sulfamethoxazole (test code = 47) Vancomycin (test code S = 13) CULTURE (BEAKER) A From Anaero bic (test code = 1095) Bottle On ly Staphylococcus epidermidis GRAM STAIN RESULT From aerobic and (BEAKER) (test code = anaerobic bottles: 1123) gram positive cocci in clusters [id number] 07:20:17 Test Item Value Reference Range Interpretation Comments MAGNESIUM (BEAKER) (test code = 1.7 mg/dL 1.6-2.6 627) Figure Model ID - MARCOCBC (HEMOGRAM ONLY)2022-05-05 05:07:40 Test Item Value Reference Range Interpretation Comments WHITE BLOOD CELL COUNT (BEAKER) 7.5 K/ L 3.5-10.5 (test code = 775) RED BLOOD CELL COUNT (BEAKER) 2.76 M/ L 4.63-6.08 L (test code = 761) HEMOGLOBIN (BEAKER) (test code = 7.8 GM/DL 13.7-17.5 L 410) HEMATOCRIT (BEAKER) (test code = 25.7 % 40.1-51.0 L 411) MEAN CORPUSCULAR VOLUME (BEAKER) 93 fL 79-92 H (test code = 753) MEAN CORPUSCULAR HEMOGLOBIN 28.3 pg 25.7-32.2 (BEAKER) (test code = 751) MEAN CORPUSCULAR HEMOGLOBIN CONC 30.4 GM/DL 32.3-36.5 L (BEAKER) (test code = 752) RED CELL DISTRIBUTION WIDTH 15.5 % 11.6-14.4 H (BEAKER) (test code = 412) PLATELET COUNT (BEAKER) (test 270 K/CU MM 150-450 code = 756) MEAN PLATELET VOLUME (BEAKER) 9.8 fL 9.4-12.4 (test code = 754) NUCLEATED RED BLOOD CELLS 0 /100 WBC 0-0 (BEAKER) (test code = 413) Prepare Leuko-Red [id number] 23:54:00 Test Item Value Reference Range Interpretation Comments Unit ABO (test code = O Neg 3653144) UNIT NUMBER (test code = [id number] 934-0) Status (test code = 0850097) TX_TIMEINCHART Blood Bank Product (test code RED BLOOD CELLS = 2263) PRODUCT CODE (test code = W4612J15 933-2) CROSSMATCH (test code = 2264) COMPATIBLE [facility] [id number] 17:18:22 Test Item Value Reference Range Interpretation Comments Result (test code = 6463-4) No [facility] [id number] 17:18:22 Test Item Value Reference Range Interpretation Comments CULTURE (BEAKER) (test code No MRSA isolated = 1095) Sputum Culture + Gram [id number] 11:58:19 Test Item Value Reference Range Interpretation Comments Result (test code = 4+ Normal respiratory 6463-4) rula present Gram Stain Result 1+ gram variable rods (test code = 1123) [facility]AM [id number] 11:58:19 Test Item Value Reference Range Interpretation Comments CULTURE (BEAKER) 4+ Normal respiratory (test code = 1095) rula present GRAM STAIN RESULT 2+ WBCs (BEAKER) (test code = 1123) GRAM STAIN RESULT 0-5 epithelial cells (BEAKER) (test code = 01887) GRAM STAIN RESULT 1+ gram positive cocci (BEAKER) (test code = in chains, pairs [place] 85511) clusters GRAM STAIN RESULT 1+ gram variable rods (BEAKER) (test code = 040481) Urinalysis w/Microscopic + Reflex to [id number] 09:33:49 Test Item Value Reference Range Interpretation Comments Color, UA (test code Light Yellow = 5778-6) Clarity, UA (test Clear code = 5767-9) Specific [place], UA 1.015 1.001-1.035 (test code = 5811-5) pH, UA (test code = 6.0 5.0-8.0 5803-2) Protein, UA (test 50 mg/dL Negative A code = 26077-2) Glucose, UA (test Negative Negative code = 365) Ketones, UA (test Negative Negative code = 2514-8) Bilirubin, UA (test Negative Negative code = 99874-8) Blood, UA (test code Trace Negative A = 89186-0) Nitrite, UA (test Negative Negative code = 5802-4) Leukocytes, UA (test Large Negative A code = 5799-2) Urobilinogen, UA 0.2 0.2-1.0 (test code = 97648-4) RBC, UA (test code = 1 See_Comment [Autom ated 52280-8) message] The system which generated this result transmit fernandez reference range : /HPF. The reference range was not used to interpret this result as normal/abnormal . WBC, UA (test code = 69 See_Comment [Autom ated 5821-4) message] The system which generated this result transmit fernandez reference range : /HPF. The reference range was not used to interpret this result as normal/abnormal . Bacteria, UA (test Rare code = 62561-1) Squam Epithel, UA See_Comment [Automate d (test code = 52553-2) messag e] The system which generated this result transmit fernandez reference range : /HPF. The reference range was not used to interpret this result as normal/abnormal . Yeast (test code = Moderate 26502-4) Specimen Source (test code = 2795) MARIAM (test code = MARIAM) Figure Model ID - [auto]Figure Model ID - tech Lab Interpretation Abnormal (test code = 78173-4) [facility]/ REFLEX URINE [id number] 09:33:49 Test Item Value Reference Range Interpretation Comments COLOR (BEAKER) (test code = 470) Light Yellow CLARITY (BEAKER) (test code = Clear 469) SPECIFIC GRAVITY UA (BEAKER) 1.015 1.001-1.035 (test code = 468) PH UA (BEAKER) (test code = 467) 6.0 5.0-8.0 PROTEIN UA (BEAKER) (test code = 50 mg/dL Negative A 464) GLUCOSE UA (BEAKER) (test code = Negative Negative 365) KETONES UA (BEAKER) (test code = Negative Negative 371) BILIRUBIN UA (BEAKER) (test code Negative Negative = 462) BLOOD UA (BEAKER) (test code = Trace Negative A 461) NITRITE UA (BEAKER) (test code = Negative Negative 465) LEUKOCYTE ESTERASE UA (BEAKER) Large Negative A (test code = 466) UROBILINOGEN UA (BEAKER) (test 0.2 0.2-1.0 code = 463) RBC UA (BEAKER) (test code = 1 /HPF 519) WBC UA (BEAKER) (test code = 69 /HPF 520) BACTERIA (BEAKER) (test code = Rare 517) SQUAMOUS EPITHELIAL (BEAKER) < /HPF (test code = 516) YEAST (BEAKER) (test code = Moderate 1585) SOURCE(BEAKER) (test code = 2795) Figure Model ID - [auto]Figure Model ID - [id number] 07:37:52 Test Item Value Reference Range Interpretation Comments PHOSPHORUS (BEAKER) (test code = 2.3 mg/dL 2.3-4.7 604) Figure Model ID - PIAYA [id number] 07:37:51 Test Item Value Reference Range Interpretation Comments MAGNESIUM (BEAKER) (test code = 1.9 mg/dL 1.6-2.6 627) Figure Model ID - PINEIL LCBC (HEMOGRAM ONLY)2022-05-04 06:47:20 Test Item Value Reference Range Interpretation Comments WHITE BLOOD CELL COUNT (BEAKER) 7.9 K/ L 3.5-10.5 (test code = 775) RED BLOOD CELL COUNT (BEAKER) 2.88 M/ L 4.63-6.08 L (test code = 761) HEMOGLOBIN (BEAKER) (test code = 8.0 GM/DL 13.7-17.5 L 410) HEMATOCRIT (BEAKER) (test code = 26.6 % 40.1-51.0 L 411) MEAN CORPUSCULAR VOLUME (BEAKER) 92 fL 79-92 (test code = 753) MEAN CORPUSCULAR HEMOGLOBIN 27.8 pg 25.7-32.2 (BEAKER) (test code = 751) MEAN CORPUSCULAR HEMOGLOBIN CONC 30.1 GM/DL 32.3-36.5 L (BEAKER) (test code = 752) RED CELL DISTRIBUTION WIDTH 15.9 % 11.6-14.4 H (BEAKER) (test code = 412) PLATELET COUNT (BEAKER) (test 275 K/CU MM 150-450 code = 756) MEAN PLATELET VOLUME (BEAKER) 9.7 fL 9.4-12.4 (test code = 754) NUCLEATED RED BLOOD CELLS 0 /100 WBC 0-0 (BEAKER) (test code = 413) URINALYSIS W/ REFLEX URINE [id number] 22:39:53 Test Item Value Reference Range Interpretation Comments COLOR (BEAKER) (test code = 470) Yellow CLARITY (BEAKER) (test code = 469) Hazy SPECIFIC GRAVITY UA (BEAKER) (test 1.023 1.001-1.035 code = 468) PH UA (BEAKER) (test code = 467) 6.5 5.0-8.0 PROTEIN UA (BEAKER) (test code = 200 mg/dL Negative A 464) GLUCOSE UA (BEAKER) (test code = Negative Negative 365) KETONES UA (BEAKER) (test code = Trace Negative A 371) BILIRUBIN UA (BEAKER) (test code = Negative Negative 462) BLOOD UA (BEAKER) (test code = 461) Small Negative A NITRITE UA (BEAKER) (test code = Negative Negative 465) LEUKOCYTE ESTERASE UA (BEAKER) Large Negative A (test code = 466) UROBILINOGEN UA (BEAKER) (test code 0.2 0.2-1.0 = 463) RBC UA (BEAKER) (test code = 519) 0 /HPF WBC UA (BEAKER) (test code = 520) 61 /HPF YEAST (BEAKER) (test code = 1585) Many SOURCE(BEAKER) (test code = 1185) Figure Model ID - [auto]Figure Model ID - techVANCOMYCIN LEVEL, [id number] 11:36:49 Test Item Value Reference Range Interpretation Comments VANCOMYCIN TROUGH (BEAKER) (test 12.9 ug/mL 10.0-20.0 code = 522) Figure Model ID - MARCOCBC W/PLT COUNT & AUTO [id number] 06:34:16 Test Item Value Reference Range Interpretation Comments WHITE BLOOD CELL COUNT (BEAKER) 8.9 K/ L 3.5-10.5 (test code = 775) RED BLOOD CELL COUNT (BEAKER) 2.44 M/ L 4.63-6.08 L (test code = 761) HEMOGLOBIN (BEAKER) (test code = 6.9 GM/DL 13.7-17.5 L 410) HEMATOCRIT (BEAKER) (test code = 23.0 % 40.1-51.0 L 411) MEAN CORPUSCULAR VOLUME (BEAKER) 94 fL 79-92 H (test code = 753) MEAN CORPUSCULAR HEMOGLOBIN 28.3 pg 25.7-32.2 (BEAKER) (test code = 751) MEAN CORPUSCULAR HEMOGLOBIN CONC 30.0 GM/DL 32.3-36.5 L (BEAKER) (test code = 752) RED CELL DISTRIBUTION WIDTH 15.8 % 11.6-14.4 H (BEAKER) (test code = 412) PLATELET COUNT (BEAKER) (test 266 K/CU MM 150-450 code = 756) MEAN PLATELET VOLUME (BEAKER) 9.7 fL 9.4-12.4 (test code = 754) NUCLEATED RED BLOOD CELLS 0 /100 WBC 0-0 (BEAKER) (test code = 413) NEUTROPHILS RELATIVE PERCENT 78 % (BEAKER) (test code = 429) LYMPHOCYTES RELATIVE PERCENT 8 % (BEAKER) (test code = 430) MONOCYTES RELATIVE PERCENT 10 % (BEAKER) (test code = 431) EOSINOPHILS RELATIVE PERCENT 2 % (BEAKER) (test code = 432) BASOPHILS RELATIVE PERCENT 0 % (BEAKER) (test code = 437) NEUTROPHILS ABSOLUTE COUNT 6.97 K/ L 1.78-5.38 H (BEAKER) (test code = 670) LYMPHOCYTES ABSOLUTE COUNT 0.70 K/ L 1.32-3.57 L (BEAKER) (test code = 414) MONOCYTES ABSOLUTE COUNT (BEAKER) 0.93 K/ L 0.30-0.82 H (test code = 415) EOSINOPHILS ABSOLUTE COUNT 0.19 K/ L 0.04-0.54 (BEAKER) (test code = 416) BASOPHILS ABSOLUTE COUNT (BEAKER) 0.03 K/ L 0.01-0.08 (test code = 417) IMMATURE GRANULOCYTES-RELATIVE 1.00 % 0.00-1.00 PERCENT (BEAKER) (test code = 2801) Strep pneumoniae [id number] 21:12:12 Test Item Value Reference Range Interpretation Comments Strep pneumoniae Presumptive negative Presumptive Antigen (test code = [place] [address]-0) pneumonia - see pneumococcal comment pneumonia - see comment, Presumptive negative for pneumococcal meningitis - see comment MARIAM (test code = MARIAM) Presumptive negative for pneumococcal pneumonia, suggesting no current or recent pneumococcal infection. Infection due to S. pneumoniae cannot be ruled out since the antigen present in the sample may be below the detection limit of the test. Lab Interpretation Normal (test code = 42641-7) [facility] [id number] 21:12:12 Test Item Value Reference Range Interpretation Comments STREP PNEUMONIAE Presumptive negative Presumptive negative ANTIGEN (BEAKER) for pneumococcal for pneumococcal (test code = 1615) pneumonia - see pneumonia - see comment commen Presumptive negative for pneumococcal pneumonia, suggesting no current or recent pneumococcal infection. Infection due to S. pneumoniae cannot be ruled out since the antigen present in the sample may be below the detection limit of the test.Legionella antigen, [id number] 21:11:29 Test Item Value Reference Range Interpretation Comments Legionella Urine Negative - see Negative Negative for L. Antigen (test code = comment pneumop darnell 05629-6) serogroup 1 antigen, sugges ting no recent or current infecti on with this serogroup. Legionellosis cannot be ruled out since other serogroups and species may cau se disease. Lab Interpretation Normal (test code = 38468-4) [facility] CampusLEGIONELLA ANTIGEN, [id number] 21:11:29 Test Item Value Reference Range Interpretation Comments L. PNEUMOPHILA Negative - see Negative Negative fo r L. SEROGP 1 UR AG comment pneumophila (PORTILLO) (test code serogrou p 1 antigen, = 1156) suggesting no r ecent or current infe ction with this serog roup. Legionellosis c annot be ruled out si nce other serogroup s and species may cau se disease. BLOOD CULTURE IDENTIFICATION [id number] 20:10:12 Test Item Value Reference Interpretation Comments Range LISTERIA MONOCYTOGENES Not detected Not detected (test code = 5706873) STAPHYLOCOCCUS (test Detected Not detected A Coagula se negative code = 8240579) Staph specie s (CoNS)- methici llin resistantFirst- line therapy: Vancom ycin MecA DETECTED Possible contamination. The likelihood of pathogenicity i s increased if th e organism is observed in multiple blood cultures obtain ed from separate venipunctures. Reference Range : Not Detected STAPHYLOCOCCUS AUREUS Not detected Not detected (test code = 8092170) STREPTOCOCCUS (test code Not detected Not detected = 8197287) STREPTOCOCCUS AGALACTIAE Not detected Not detected (GROUP B) (test code = 3039241) STREPTOCOCCUS PNEUMONIAE Not detected Not detected (test code = 1765790) STREPTOCOCCUS PYOGENES Not detected Not detected (GROUP A) (test code = 8966204) ACINETOBACTER BAUMANNII Not detected Not detected (test code = 2558994) HAEMOPHILUS INFLUENZAE Not detected Not detected (test code = 6374727) NEISSERIA MENINGITIDIS Not detected Not detected (test code = 6886870) ENTEROBACTERIACEAE (test Not detected Not detected code = 0929309) ENTEROBACTER CLOACOE Not detected Not detected COMPLEX (test code = 0890168) KLEBSIELLA OXYTOCA (test Not detected Not detected code = 5468526) KLEBSIELLA PNEUMONIAE Not detected Not detected (test code = 1650) PROTEUS (test code = Not detected Not detected 2564076) SERRATIA MARCESCENS Not detected Not detected (test code = 3645720) BEL ALBICANS (test Not detected Not detected code = 9209134) BEL GLABRATA (test Not detected Not detected code = 8259974) BEL KRUSEI (test Not detected Not detected code = 8073856) BEL PARAPSILOSIS Not detected Not detected (test code = 0381104) BEL TROPICALIS (BKR) Not detected Not detected (test code = 2600881) ESCHERICHIA COLI (test Not detected Not detected code = 9227070) METHICILLIN-RESISTANCE Detected Not detected A Note: Antimicrobial GENE (test code = resistance can 0905693) occur via multi ple mechanisms. A N ot Detected result for the FilmArray antimicrobial resistance gene assays does not indicate antimicrobial susceptibility. Subculturing is required for species identification and susceptibility testing of isolates. VANCOMYCIN-RESISTANCE GENE (test code = 7418539) CARBAPENEM-RESISTANCE GENE (test code = 4631935) ENTEROCOCCUS-BEAKER Not detected Not detected (test code = 8649472) PSEUDOMONAS Not detected Not detected AERUGINOSA-BEAKER (test code = 9748981) Other bacteria and resistance markers not targeted by this PCR panel cannot be excluded; therefore clinical correlation and follow up of serology, culture results, and other molecular studies is required. The results are not intended to be used as the sole means for clinical diagnosis or patient management decisions. This sample was tested at the [facility] using the [employer] Blood Culture ID Panel. It is FDA cleared and has been verified and approved by the [facility] for clinical use. This laboratory is CLIA-certified and College ofAmerican Pathologists (CAP)-accredited to perform high complexity testing.VITAMIN B12 2022-05-02 14:37:00 Test Item Value Reference Range Interpretation Comments VITAMIN B12 (AMYAKER) (test code = 1274 pg/mL 213-816 H 774) Figure Model ID - MARCORETICULOCYTE [id number] 13:56:58 Test Item Value Reference Range Interpretation Comments RETICULOCYTE COUNT PCT (AKER) (test 1.1 % 0.5-1.8 code = 575) Figure Model ID - 6000POC-Glucose [id number] 13:02:12 Test Item Value Reference Range Interpretation Comments POC-Glucose Meter (test 117 mg/dL 70-110 H : TE STED AT [facility] code = 1538) [address] [facility], [address]: Figure Model/Techni clay ID = [id number] for Rowena Alfred Lab Interpretation (test Abnormal code = 10076-6) [facility] CampusPOCT-GLUCOSE [id number] 13:02:12 Test Item Value Reference Range Interpretation Comments POC-GLUCOSE METER 117 mg/dL 70-110 H : TESTED A T [facility] [address] (BEAKER) (test code = [address] [facility], 1538) [address]: Figure Model/Techni clay ID = [id number] for Al i, Rowena POCT-GLUCOSE [id number] 09:00:09 Test Item Value Reference Range Interpretation Comments POC-GLUCOSE METER 139 mg/dL 70-110 H : TESTED A T [facility] [address] (BEAKER) (test code = [address] [facility], 1538) [address]: Figure Model/Techni clay ID = [id number] for Al i, Rowena TSH/FREE T4 IF [id number] 06:10:34 Test Item Value Reference Range Interpretation Comments THYROID STIMULATING HORMONE 1.553 uIU/mL 0.350-4.940 (BEAKER) (test code = 772) Figure Model ID - MARCOBASIC METABOLIC [id number] 05:28:32 Test Item Value Reference Range Interpretation Comments SODIUM (BEAKER) 138 meq/L 136-145 (test code = 381) POTASSIUM 4.4 meq/L 3.5-5.1 (BEAKER) (test code = 379) CHLORIDE (BEAKER) 106 meq/L 98-107 (test code = 382) CO2 (BEAKER) 25 meq/L 22-29 (test code = 355) BLOOD UREA 28 mg/dL 7-21 H NITROGEN (BEAKER) (test code = 354) CREATININE 0.80 mg/dL 0.57-1.25 (BEAKER) (test code = 358) GLUCOSE RANDOM 108 mg/dL 70-105 H (BEAKER) (test code = 652) CALCIUM (BEAKER) 7.3 mg/dL 8.4-10.2 L (test code = 697) EGFR (BEAKER) 93 Interpretatio n of eGFR (test code = mL/min/1.73 values Stage De scription 1092) sq m Result G1 Arleen l or high >=90 G2 Mildly decreased 60-89 G3a Mildl y to moderately 45-5 9 G3b Moderately to s everely 30-44 G4 Severl y decreased 15-29 G5 Kidney failure <15Reported eGF R is based on the CKD-EPI 1 equation that d oes not use a race coefficientEsti mated GFR is not as accur ate as Creatinine Corine lola in predicting glom erular filtration rate . Estimated GFR is not appl icable for dialysis patien ts Figure Model ID - MARCOHIGH SENSITIVITY TROPONIN [id number] 04:57:24 Test Item Value Reference Range Interpretation Comments HIGH SENSITIVITY TROPONIN I (test 140 pg/ml <=35 H code = 2500643) Figure Model ID - Mar TIRE WRAPPER STAT High Sensitivity Troponin-I results should be used in conjunction with other diagnostic information such as ECG, clinical observations and information, and patientsymptoms to aid in the diagnosis of AL. CBC W/PLT COUNT & AUTO [id number] 04:40:39 Test Item Value Reference Range Interpretation Comments WHITE BLOOD CELL COUNT (BEAKER) 11.8 K/ L 3.5-10.5 H (test code = 775) RED BLOOD CELL COUNT (BEAKER) 2.61 M/ L 4.63-6.08 L (test code = 761) HEMOGLOBIN (BEAKER) (test code = 7.4 GM/DL 13.7-17.5 L 410) HEMATOCRIT (BEAKER) (test code = 24.6 % 40.1-51.0 L 411) MEAN CORPUSCULAR VOLUME (BEAKER) 94 fL 79-92 H (test code = 753) MEAN CORPUSCULAR HEMOGLOBIN 28.4 pg 25.7-32.2 (BEAKER) (test code = 751) MEAN CORPUSCULAR HEMOGLOBIN CONC 30.1 GM/DL 32.3-36.5 L (BEAKER) (test code = 752) RED CELL DISTRIBUTION WIDTH 15.7 % 11.6-14.4 H (BEAKER) (test code = 412) PLATELET COUNT (BEAKER) (test 272 K/CU MM 150-450 code = 756) MEAN PLATELET VOLUME (BEAKER) 9.8 fL 9.4-12.4 (test code = 754) NUCLEATED RED BLOOD CELLS 0 /100 WBC 0-0 (BEAKER) (test code = 413) NEUTROPHILS RELATIVE PERCENT 84 % (BEAKER) (test code = 429) LYMPHOCYTES RELATIVE PERCENT 6 % (BEAKER) (test code = 430) MONOCYTES RELATIVE PERCENT 10 % (BEAKER) (test code = 431) EOSINOPHILS RELATIVE PERCENT 0 % (BEAKER) (test code = 432) BASOPHILS RELATIVE PERCENT 0 % (BEAKER) (test code = 437) NEUTROPHILS ABSOLUTE COUNT 9.87 K/ L 1.78-5.38 H (BEAKER) (test code = 670) LYMPHOCYTES ABSOLUTE COUNT 0.65 K/ L 1.32-3.57 L (BEAKER) (test code = 414) MONOCYTES ABSOLUTE COUNT (BEAKER) 1.12 K/ L 0.30-0.82 H (test code = 415) EOSINOPHILS ABSOLUTE COUNT 0.01 K/ L 0.04-0.54 L (BEAKER) (test code = 416) BASOPHILS ABSOLUTE COUNT (BEAKER) 0.04 K/ L 0.01-0.08 (test code = 417) IMMATURE GRANULOCYTES-RELATIVE 0.70 % 0.00-1.00 PERCENT (BEAKER) (test code = 2801) RAD, CHEST, 1 VIEW, NON [id number] 00:05:00Reason for exam:->Shortness of breath - Concern for PNAShould this be performed at the bedside?->Yes [facility] 1950 Sex: MFINAL REPORT Chest, 1 view. History: Shortness of breath. Comparison: None available. Impression: Right IJ chest port identified with catheter tip terminating within the SVC. Please note that the right costophrenic angle is excluded from [id number]. There are mildly increased bibasilar opacities present suggestive of atelectasis and/or small effusions. There is no evidence for lobar consolidation or pneumothorax. The cardiomediastinal silhouette is within normal limits. No acute osseous abnormality is identified. Suspected percutaneous nephrostomy catheter is noted projecting over the bilateral upper abdomen. Signed: Jamal Merchant MDReport Verified Date/Time: 05/02/2022 00:05:11 CT, CHEST WITH IV CONTRAST- PE TEST [id number] 23:08:00Unlisted Reason for Exam - Click Yes and Enter Reason Below->No [facility] : 1950 Sex: MFINAL REPORT CT OF THE CHEST, PULMONARY EMBOLISM PROTOCOL CLINICAL HISTORY: PE suspected, high probability COMPARISON FILM: None TECHNIQUE: CT scan of the chest with intravenous contrast. Dose nodulation, iterative reconstruction, and/or weight based adjustment of the mA/KV was utilized to reduce the radiation dose to as low as reasonably achievable. Coronal and sagittal reconstructions were provided. Images were provided to better assess the vasculature. FINDINGS:There is adequateopacification of the pulmonary arteries which distribute normally. The main pulmonary artery is normal in caliber. There is no evidence of filling defect or vessel cut off to suggest pulmonary thromboembolism. The thyroid and remaining visualized structures within the base of the neck demonstrate no significant abnormalities. Right chest port identified with catheter tip terminating at the cavoatrialjunction. The thoracic aorta is normal course and caliber. The heart is not enlarged. No abnormal pericardial fluid is present. There is no abnormal axillary, mediastinal, or hilar lymph node enlargement. The trachea and proximal airways are patent. There is moderate paraseptal and centrilobular emphysematous changes, more prominent within the upper lobes. Small right and trace left pleural effusionsnoted with adjacent atelectasis/consolidation of the lower lobes subcentimeter granulomas calcifications noted. There is no evidence for pneumothorax, mass, or suspicious nodule. Partially visualized percutaneous nephrostomy catheters noted. Granulomatous calcifications noted within the spleen. The remaining visualized upper abdominal contents demonstrate no significant abnormalities. The osseous structures demonstrate no evidence for acute fracture or destructive process. There is mild body wall edema present. IMPRESSION:No evidence for pulmonary thromboembolism. Small right and trace left pleuraleffusion and associated atelectasis of the adjacent lower lobes. Emphysematous changes. Signed: Jamal Merchant MDReport Verified Date/Time: 05/01/2022 23:08:41 Respiratory Panel [id number] 22:35:04 Test Item Value Reference Range Interpretation Comments Human Metapneumovirus Not detected Not detected, (test code = 58396-8) Equivocal Rhinovirus (test code = Not detected Not detected, 07297-5) Equivocal INFLUENZA A (NO Not detected Not detected, SUBTYPE) (test code = Equivocal 85240-5) Influenza A subtype H1 (test code = 71350-7) Influenza A Subtype H3 (test code = 13548-8) Influenza A Subtype H1-2009 (test code = 39916-6) Influenza B (test code Not detected Not detected, = 31877-6) Equivocal Respiratory Syncytial Not detected Not detected, Virus (test code = Equivocal 54859-5) Parainfluenza Virus 1 Not detected Not detected, (test code = 12427-1) Equivocal Parainfluenza Virus 2 Not detected Not detected, (test code = 59276-7) Equivocal Parainfluenza virus 3 Not detected Not detected, (test code = 32657-3) Equivocal Parainfluenza Virus 4 Not detected Not detected, (test code = 33964-1) Equivocal Adenovirus (test code = Not detected Not detected, 76501-9) Equivocal Coronavirus 229E (test Not detected Not detected, code = 03668-9) Equivocal Coronavirus HKU1 (test Not detected Not detected, code = 39798-3) Equivocal Coronavirus NL63 (test Not detected Not detected, code = 71000-6) Equivocal Coronavirus OC43 (test Not detected Not detected, code = 82020-8) Equivocal Bordetella Pertussis Not detected Not detected, (test code = 15384-6) Equivocal Chlamydophila Not detected Not detected, Pneumoniae (test code = Equivocal 51386-4) Mycoplasma Pneumoniae Not detected Not detected, (test code = 48143-2) Equivocal Severe Acute Not detected Not detected, Rdxfzsccswb-NoE-5 (test Equivocal code = 37642-1) Bordtella Parapertussis Not detected Not detected, (test code = 56743-5) Equivocal MARIAM (test code = MARIAM) Other viruses and bacteria not targeted by this PCR panel cannot be excluded; therefore clinical correlation and follow up of serology, culture results, and other molecular studies is required. The results are not intended to be used as the sole means for clinical diagnosis or patient management decisions. This sample was tested at the [facility] using the Webcrumbz[employer] Respiratory Panel. It is FDA cleared and has been verified and approved by the [facility] for clinical use on nasopharyngeal swab specimens. The performance of the FilmArray RP has not been established in individuals who received influenza vaccine. Recent administration of a nasal influenza vaccine may cause false positive results for Influenza A and/orInfluenza B. [facility] [id number] 22:35:04 Test Item Value Reference Range Interpretation Comments HUMAN METAPNEUMOVIRUS Not detected Not detected, (BEAKER) (test code = 2683) Equivocal RHINOVIRUS (BEAKER) (test Not detected Not detected, code = 2684) Equivocal INFLUENZA A (BEAKER) (test Not detected Not detected, code = 2685) Equivocal INFLUENZA A (NO SUBTYPE) (test code = 3606) INFLUENZA A SUBTYPE H1 (BEAKER) (test code = 2686) INFLUENZA A SUBTYPE H3 (BEAKER) (test code = 2687) INFLUENZA A SUBTYPE H1-2009 (BEAKER) (test code = 3198) INFLUENZA B (BEAKER) (test Not detected Not detected, code = 2688) Equivocal RESPIRATORY SYNCYTIAL VIRUS Not detected Not detected, (BEAKER) (test code = 3199) Equivocal PARAINFLUENZA VIRUS 1 Not detected Not detected, (BEAKER) (test code = 2691) Equivocal PARAINFLUENZA VIRUS 2 Not detected Not detected, (BEAKER) (test code = 2692) Equivocal PARAINFLUENZA VIRUS 3 Not detected Not detected, (BEAKER) (test code = 2693) Equivocal PARAINFLUENZA VIRUS 4 Not detected Not detected, (BEAKER) (test code = 3200) Equivocal ADENOVIRUS (BEAKER) (test Not detected Not detected, code = 2694) Equivocal CORONAVIRUS 229E (BEAKER) Not detected Not detected, (test code = 3201) Equivocal CORONAVIRUS HKU1 (BEAKER) Not detected Not detected, (test code = 3202) Equivocal CORONAVIRUS NL63 (BEAKER) Not detected Not detected, (test code = 3203) Equivocal CORONAVIRUS OC43 (BEAKER) Not detected Not detected, (test code = 3204) Equivocal BORDETELLA PERTUSSIS Not detected Not detected, (BEAKER) (test code = 3205) Equivocal CHLAMYDOPHILA PNEUMONIAE Not detected Not detected, (BEAKER) (test code = 3206) Equivocal MYCOPLASMA PNEUMONIAE Not detected Not detected, (BEAKER) (test code = 3207) Equivocal SEVERE ACUTE RESPIRATORY Not detected Not detected, [id number] Equivocal (test code = 9215864) BORDETELLA PARAPERTUSSIS Not detected Not detected, (BKR) (test code = 5051564) Equivocal Other viruses and bacteria not targeted by this PCR panel cannot be excluded; therefore clinical correlation and follow up of serology, culture results, and other molecular studies is required. The results are not intended to be used as the sole means for clinical diagnosis or patient management decisions. This sample was tested at the [facility] using the Webcr[employer]zArray Respiratory Panel. It is FDA cleared and has been verified and approved by the [facility] for clinical use on nasopharyngeal swab specimens.The performance of the FilmArrayRP has not been established in individuals who received influenza vaccine. Recent administration of a nasal influenza vaccine may cause false positive results for Influenza A and/orInfluenza B.COMPREHENSIVE METABOLIC [id number] 22:15:15 Test Item Value Reference Range Interpretation Comments TOTAL PROTEIN 4.8 gm/dL 6.0-8.3 L (BEAKER) (test code = 770) ALBUMIN (BEAKER) 2.2 g/dL 3.5-5.0 L (test code = 1145) ALKALINE 94 U/L 40-150 PHOSPHATASE (BEAKER) (test code = 346) BILIRUBIN TOTAL 0.2 mg/dL 0.2-1.2 (BEAKER) (test code = 377) SODIUM (BEAKER) 139 meq/L 136-145 (test code = 381) POTASSIUM (BEAKER) 4.7 meq/L 3.5-5.1 (test code = 379) CHLORIDE (BEAKER) 106 meq/L 98-107 (test code = 382) CO2 (BEAKER) (test 24 meq/L 22-29 code = 355) BLOOD UREA 27 mg/dL 7-21 H NITROGEN (BEAKER) (test code = 354) CREATININE 0.88 mg/dL 0.57-1.25 (BEAKER) (test code = 358) GLUCOSE RANDOM 155 mg/dL 70-105 H (BEAKER) (test code = 652) CALCIUM (BEAKER) 7.5 mg/dL 8.4-10.2 L (test code = 697) AST (SGOT) 15 U/L 5-34 (BEAKER) (test code = 353) ALT (SGPT) 7 U/L 6-55 (BEAKER) (test code = 347) EGFR (BEAKER) 91 Interpretatio n of eGFR (test code = 1092) mL/min/1.[address] age Description sq m Result G1 Arleen l or high >=90 G2 Mildly decreased 60-89 G3a Mild ly to moderately 45-5 9 G3b Moderately to s everely 30-44 G4 Severl y decreased 15-29 G5 Kidney failure <15Reported eGF R is based on the CKD-EPI 2020 equation that d oes not use a race coefficientEsti mated GFR is not as accur ate as Creatinine Corine lola in predicting glom erular filtration rate . Estimated GFR is not appl icable for dialysis patien ts Figure Model ID - ADMINB-TYPE NATRIURETIC FACTOR (BNP)2022-05-01 22:11:04 Test Item Value Reference Range Interpretation Comments B-TYPE NATRIURETIC PEPTIDE (BEAKER) 204 pg/mL 0-100 H (test code = 700) Figure Model ID - ADMINHIGH SENSITIVITY TROPONIN [id number] 22:10:44 Test Item Value Reference Range Interpretation Comments HIGH SENSITIVITY TROPONIN I (test 214 pg/ml <=35 H code = 8848790) Figure Model ID - ADMINThe TIRE WRAPPER STAT High Sensitivity Troponin-I results should be used in conjunction with other diagnostic information such as ECG, clinical observations and information, and patientsymptoms to aid in the diagnosis of AL. [id number] 22:10:06 Test Item Value Reference Range Interpretation Comments MAGNESIUM (BEAKER) (test code = 1.9 mg/dL 1.6-2.6 627) Figure Model ID - [id number] 22:10:06 Test Item Value Reference Range Interpretation Comments PHOSPHORUS (BEAKER) (test code = 3.3 mg/dL 2.3-4.7 604) Figure Model ID - ADMINLACTIC ACID, [id number] 22:04:00 Test Item Value Reference Range Interpretation Comments LACTATE BLOOD VENOUS (2) (BEAKER) 1.24 mmol/L 0.50-2.20 (test code = 2872) Figure Model ID - [id number] 21:49:41 Test Item Value Reference Range Interpretation Comments FIBRINOGEN LEVEL (BEAKER) (test 720 mg/dl 225-434 H code = 658) PROTHROMBIN TIME/[id number] 21:49:13 Test Item Value Reference Range Interpretation Comments PROTIME (BEAKER) (test code = 16.2 seconds 11.9-14.2 H 759) INR (BEAKER) (test code = 370) 1.33 <=5.90 RECOMMENDED COUMADIN/WARFARIN INR THERAPY RANGESSTANDARD DOSE: 2.0 - 3.0 Includes: PROPHYLAXIS for venous thrombosis, systemic embolization; TREATMENT for venous thrombosis and/or pulmonary embolus.HIGH RISK: Target INR is 2.5-3.5 for patients with mechanical heart valves.CBC W/PLT COUNT & AUTO [id number] 21:43:35 Test Item Value Reference Range Interpretation Comments WHITE BLOOD CELL COUNT (BEAKER) 15.9 K/ L 3.5-10.5 H (test code = 775) RED BLOOD CELL COUNT (BEAKER) 2.75 M/ L 4.63-6.08 L (test code = 761) HEMOGLOBIN (BEAKER) (test code = 7.9 GM/DL 13.7-17.5 L 410) HEMATOCRIT (BEAKER) (test code = 25.9 % 40.1-51.0 L 411) MEAN CORPUSCULAR VOLUME (BEAKER) 94 fL 79-92 H (test code = 753) MEAN CORPUSCULAR HEMOGLOBIN 28.7 pg 25.7-32.2 (BEAKER) (test code = 751) MEAN CORPUSCULAR HEMOGLOBIN CONC 30.5 GM/DL 32.3-36.5 L (BEAKER) (test code = 752) RED CELL DISTRIBUTION WIDTH 15.9 % 11.6-14.4 H (BEAKER) (test code = 412) PLATELET COUNT (BEAKER) (test 278 K/CU MM 150-450 code = 756) MEAN PLATELET VOLUME (BEAKER) 9.8 fL 9.4-12.4 (test code = 754) NUCLEATED RED BLOOD CELLS 0 /100 WBC 0-0 (BEAKER) (test code = 413) NEUTROPHILS RELATIVE PERCENT 87 % (BEAKER) (test code = 429) LYMPHOCYTES RELATIVE PERCENT 4 % (BEAKER) (test code = 430) MONOCYTES RELATIVE PERCENT 8 % (BEAKER) (test code = 431) EOSINOPHILS RELATIVE PERCENT 0 % (BEAKER) (test code = 432) BASOPHILS RELATIVE PERCENT 0 % (BEAKER) (test code = 437) NEUTROPHILS ABSOLUTE COUNT 13.85 K/ L 1.78-5.38 H (BEAKER) (test code = 670) LYMPHOCYTES ABSOLUTE COUNT 0.58 K/ L 1.32-3.57 L (BEAKER) (test code = 414) MONOCYTES ABSOLUTE COUNT (BEAKER) 1.28 K/ L 0.30-0.82 H (test code = 415) EOSINOPHILS ABSOLUTE COUNT 0.00 K/ L 0.04-0.54 L (BEAKER) (test code = 416) BASOPHILS ABSOLUTE COUNT (BEAKER) 0.03 K/ L 0.01-0.08 (test code = 417) IMMATURE GRANULOCYTES-RELATIVE 0.70 % 0.00-1.00 PERCENT (BEAKER) (test code = 2801) BLOOD GAS, [id number] 21:37:45 Test Item Value Reference Range Interpretation Comments PH VENOUS (BEAKER) (test code = 7.39 7.32-7.42 701) PCO2 VENOUS (BEAKER) (test code = 43 mm Hg 41-51 755) PO2 VENOUS (BEAKER) (test code = 97 mm Hg 25-40 H 702) O2 SATURATION VENOUS (BEAKER) 97.4 % 40.0-70.0 H (test code = 703) HCO3 VENOUS (BEAKER) (test code = 25 mmol/L 21-29 705) BASE EXCESS VENOUS (BEAKER) (test 0.2 mmol/L -2.0-3.0 code = 704) PATIENT TEMPERATURE (BEAKER) (test 36.7 code = 1818) FIO2 (BEAKER) (test code = 1819) 60.0 [id number] 19:16:00 Test Item Value Reference Range Interpretation Comments TSH (test code = 3.08 See_Comment Note: Duglas Brigitte ethodology and 86821-3) Reference Range change effective 2017 at 1400 Testing Perform ed at [facility] Registered Medical Transcriptionist [facility], [address], [place], [place] [address] [Automated mess age] The system which ge nerated this result transmit fernandez reference range : 0.27 - 4.20 mcunit/mL. The reference range was not used to interpr et this result as arleen l/abnormal. [id number] 19:15:59 Test Item Value Reference Range Interpretation Comments T4 Free (test code = 0.90 ng/dL 0.93-1.70 L Testing Performed 3024-7) at [facility] Registered Medical Transcriptionist [facility], [address], [address], [place], [place] [address] Lab Interpretation (test Abnormal code = 30447-4) [facility] LakeFractionated [id number] 19:05:48Bili Total<0.3<=1.2 mg/dLMAYS MERCY HOSPITALUnParkview Regional HospitalGlomerular Filtration [id number] 19:05:47 Test Item Value Reference Range Interpretation Comments eGFR (test code = 85 See_Comment The eGFRcr is calculated with 93708-3) the 2020 CKD-EP I creatinine equation using [...] a for CKD. Testing Perform ed at [facility] Lab Registered Medical Transcriptionist [facility], [address], [address], [place], [place] [address] [Automated message] The sy stem which generated this result transmitted ref erence range: >=60 mL/min/1.7 3 sq. m. The reference range was not used to interpret th is result as normal/abnormal . [facility] Lake[facility] [id number] 19:05:46 Test Item Value Reference Range Interpretation Comments Total Protein (test code 5.4 g/dL 6.4-8.3 L Afshan ting Performed at = 2885-2) [facility] Lab Ambulat ory [facility], [address], [address], [place] [address] Lab Interpretation (test Abnormal code = 62409-4) [facility] Lake[facility]cium [id number] 19:05:45 Test Item Value Reference Range Interpretation Comments Calcium Lvl (test 8.6 mg/dL 8.4-10.2 Testing Pe rformed at code = 39151-6) [facility] Lab Ambu latory Care [facility], [address], [place], [place] [address] [facility] LakeAlkaline [id number] 19:05:44 Test Item Value Reference Range Interpretation Comments Alk Phos (test code = 131 U/L 40-129 H Testin g Performed at 7060-6) [facility] Lab Ambulat ory Care [facility], [address], [place] [address] Lab Interpretation (test Abnormal code = 15848-2) [facility] LakeAlbumin [id number] 19:05:43 Test Item Value Reference Range Interpretation Comments Albumin Lvl (test code = 2.6 See_Comment L Afshan ting Performed at 1751-7) [facility] Lab Ambulat ory Care [facility], [address], [place] [address] [Automate d message] The sy stem which generated this result transmit fernandez reference range : 3.5 - 5.2 gm/dL. Th e reference range was not used to int erpret this result as normal/abnormal . Lab Interpretation (test Abnormal code = 61633-2) [facility] LakeAspartate Aminotransferase 2022-04-24 19:05:42 Test Item Value Reference Range Interpretation Comments AST (test code = 15 U/L <=40 Testing Per formed at [facility] 1920-8) Lab Registered Medical Transcriptionist [facility], [address], [place] [address] [facility] LakeALT2023-02-17 19:05:41 Test Item Value Reference Range Interpretation Comments ALT (test code = 8 U/L <=41 Testing Per formed at [facility] 1742-6) Lab Registered Medical Transcriptionist [facility], [address], [place] [address] [facility] LakeElectrolyte [id number] 19:05:40 Test Item Value Reference Range Interpretation Comments Sodium Lvl (test code = 135 See_Comment L Test ing Performed at 2951-2) [facility] Lab Ambulat ory Care [facility], [address], [place] [address] [Automate d message] The sy stem which generated this result transmit fernandez reference range : 136 - 145 mEq/L. Th e reference range was not used to int erpret this result as normal/abnormal . Potassium Lvl (test code 4.7 See_Comment Afshan ting Performed at = 2823-3) [facility] Lab Ambulat ory Care [facility], [address], [place] [address] [Automate d message] The sy stem which generated this result transmit fernandez reference range : 3.5 - 5.1 mEq/L. Th e reference range was not used to int erpret this result as normal/abnormal . Chloride (test code = 99 See_Comment Testin g Performed at 2075-0) [facility] Lab Ambulat ory Care [facility], [address], [place] [address] [Automate d message] The sy stem which generated this result transmit fernandez reference range : 98 - 107 mEq/L. The reference range was not used to int erpret this result as normal/abnormal . CO2 (test code = 2027-9) 29 See_Comment Afhsan ting Performed at [facility] Lab [facility], [address], [address], [place] [address] [Automate d message] The sy stem which generated this result transmit fernandez reference range : 22 - 29 mEq/L. The reference range was not used to int erpret this result as normal/abnormal . Anion Gap (test code = 7 See_Comment [place] [address]-3) [facility] Lab [facility], [address], [address], [place] [address] [Automate d message] The sy stem which generated this result transmit fernandez reference range : 4 - 14 mEq/L. The reference range was not used to int erpret this result as normal/abnormal . Lab Interpretation (test Abnormal code = 54770-9) [facility].Serum [id number] 19:05:39 Test Item Value Reference Range Interpretation Comments Creatinine (test code 0.94 mg/dL 0.67-1.17 Testin g Performed at = 2160-0) [facility] Lab [facility], [address], [address], [place] [address] [facility] LakeBUN2023-02-17 19:05:38 Test Item Value Reference Range Interpretation Comments BUN (test code = 3094-0) 33 mg/dL 6-23 H Afshan ting Performed at [facility], [address], [address], [place] [address] Lab Interpretation (test Abnormal code = 39683-1) [facility] LakeGlucose [id number] 19:05:37 Test Item Value Reference Range Interpretation [...] risk for diabetes Te sting Performed at [facility] Lab Registered Medical Transcriptionist [facility], [address], [place], [place] [address] Lab Interpretation (test Abnormal code = 74152-5) [facility] LakeDifferential2023-02-17 18:46:27 Test Item Value Reference Range Interpretation Comments Neutrophil % (test code 82.6 % 42.0-66.0 H As p art of = 770-8) Differential performed at [facility], [address], [place] [address] Lymphocyte % (test code 5.8 % 24.0-44.0 L = 736-9) Monocyte % (test code = 10.3 % 2.0-7.0 H 5905-5) Eosinophil % (test code 0.3 % 1.0-4.0 L = 713-8) Basophil % (test code = 0.2 % 0.0-1.0 706-2) IGRE % (test code = 0.8 % 0.0-0.4 H IGRE % c ount includes 09395-0) Metamyelocytes, Myelocytes, and Promyelocytes. As part of Differe ntial performed at [facility], [facility] [facility], [address], [place] [address] Neutrophil Abs (test 8.79 K/uL 1.70-7.30 H code = 751-8) Lymphocyte Abs (test 0.62 K/uL 1.00-4.80 L code = 731-0) Monocyte Abs (test code 1.09 K/uL 0.08-0.70 H = 742-7) Eosinophil Abs (test 0.03 K/uL 0.04-0.40 L code = 711-2) Basophil Abs (test code 0.02 K/uL 0.00-0.10 = 704-7) IG Abs (test code = 0.08 K/uL 0.00-0.04 H 38588-4) Lab Interpretation Abnormal (test code = 95812-7) [facility] [place].[id number] 18:46:20 Test Item Value Reference Range Interpretation Comments WBC (test code = 10.6 K/uL 4.0-11.0 6690-2) RBC (test code = 789-8) 3.32 See_Comment L [Au tomated message] The system [employer] generated this result transmitted ref erence range: 4.50 - 6 .00 M/uL. The refer ence range was not u sed to interpret this result as normal/abnor mal. Hgb (test code = 718-7) 9.6 See_Comment L As p art of CBC or as an individual orderable testi ng performed at [facility] Registered Medical Transcriptionist Bldg, [address], [address], [place] [address] [Automate d message] The sy stem which generated this result transmit fernandez reference range : 14.0 - 18.0 gm/dL. T he reference range was not used to int erpret this result as normal/abnormal . Hct (test code = 31.1 % 40.0-54.0 L As part of CBC or as 4544-3) an individual orderable testi ng performed at [facility] Registered Medical Transcriptionist [facility], [address], [place] [address] MCV (test code = 787-2) 94 fL 82-98 MCH (test code = 785-6) 28.9 pg 27.0-31.0 MCHC (test code = 30.9 See_Comment L [Automate d message] 786-4) The system [employer] generated this result transmitted ref erence range: 31.0 - 3 6.0 gm/dL. The refe rence range was not u sed to interpret this result as normal/abnor mal. RDW-SD (test code = 52.7 fL 35.1-46.3 H 41016-6) RDW-CV (test code = 15.5 % 12.0-15.5 788-0) Platelet count (test 357 K/uL 140-440 As part of CBC or as code = 777-3) an individual orderable testi ng performed at [facility] Lab Registered Medical Transcriptionist Bldg, [address], [place] [address] MPV (test code = 9.4 fL 4.0-10.4 31146-2) INRBC (test code = 0.0 % <=0.0 The INRBC (instrument 29418-6) NRBC) value ref lects the enumeration of nucleated red b lood cells contained in a 200uL sampleof whole blood analyzed by the instrument. Thi s value maydiffer from the NRBC value reported in a m anual differential,wh ich is based on a 100 cell differential. A s part of CBC testing performed at [facility] Lab Registered Medical Transcriptionist [address], [place] [facility] [place] [address] Lab Interpretation Abnormal (test code = 49456-7) [facility] LakeFungus Culture w/Djjzu5718-45-14 22:41:55 Test Item Value Reference Range Interpretation Comments Final Report (test No fungus isolated at 4 code = 8488) weeks. Path Review - Fungus Culture yield may be (test code = 8479) affected by sample quality, prior treatment, and transportation conditions. The results have been reviewed and electronically signed by Pathologist:Olinda Henry MD, PhD #[id number] Calcofluor Stain No Fungi seen in direct (test code = 8925) smearTest performed by fluorescent stain methodology. MARIAM (test code = MARIAM) Cultures are held for 4 weeks before finalization. [facility] LakeFungus Culture w/Ghcoq3688-08-12 22:41:55 Test Item Value Reference Range Interpretation Comments Final Report (test No fungus isolated at 4 code = 8488) weeks. Path Review - Fungus Culture yield may be (test code = 8479) affected by sample quality, prior treatment, and transportation conditions. The results have been reviewed and electronically signed by Pathologist:Olinda Henry MD, PhD #[id number] Calcofluor Stain No Fungi seen in direct (test code = 8925) smearTest performed by fluorescent stain methodology. MARIAM (test code = MARIAM) Cultures are held for 4 weeks before finalization. [facility] Add-On Test 2022-04-14 22:39:56 Test Item Value Reference Range Interpretation Comments Ordered (test code Test Added TEst adde d to RCC = 6568) [facility] ple accession [id number]. 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 Test Needed (test ferritin, TIBC, code = 7604) iron [facility] LakeUrine [id number] 01:53:28 Test Item Value Reference Range Interpretation Comments Final Report (test code 10 - 50,000 cfu/ml A = 8488) Providencia rettgeriFor susceptibility refer to Culture [id number] Path Review - Urine The results have been A (test code = 8483) reviewed and electronically signed by Pathologist:MOE DALTON MD #[id number] Lab Interpretation Abnormal (test code = 59079-0) [facility] LakeUrine Hjcrwaw4973-29-08 01:53:28 Test Item Value Reference Range Interpretation Comments Final Report (test code 10 - 50,000 cfu/ml A = 8488) Providencia rettgeriFor susceptibility refer to Culture [id number] Path Review - Urine The results have been A (test code = 8483) reviewed and electronically signed by Pathologist:MOE DALTON MD #[id number] Lab Interpretation Abnormal (test code = 14709-6) [facility] LakeFibrinogen2023-02-01 20:32:57 Test Item Value Reference Range Interpretation Comments Fibrinogen (test code 737 mg/dL 214-503 H No Saray t Present = 3255-7) MARIAM (test code = MARIAM) This lab cannot be scheduled at the following locations due to collection/procce ssing restrictions: [facility] and [facility]. Lab Interpretation Abnormal (test code = 87508-6) [facility] LakeFibrinogen2023-02-01 20:32:57 Test Item Value Reference Range Interpretation Comments Fibrinogen (test code 737 mg/dL 214-503 H No Saray t Present = 3255-7) MARIAM (test code = MARIAM) This lab cannot be scheduled at the following locations due to collection/procce ssing restrictions: [facility] and [facility]. Lab Interpretation Abnormal (test code = 56537-9) [facility] LakeCOVID-19 (SARS-CoV-2)Zjbtwconwzge-[id number] 22:17:58 Test Item Value Reference Range Interpretation Comments COVID19 Not Detected Not Detected (SARS-CoV-2) (test code = 51827-8) COVID19 SARS Inpatient Indication (test Admission code = 36922) Covid 19 Comment See Note The elke S ARS-CoV-2 (test code = [place] [address]) use on the osito s Loren System [...] sheet for patie nts provided by the university controller ([employer]) can be rev iewed at: https://www.fda .gov/m edia/926343/claudia nload. A fact sheet fo r Health Care pro viders is provided by the university controller ([employer]) and can be reviewed at: https://www.fda .gov/m edia/192856/claudia nload Results must be interpreted wit hin [...] high-comple xity tests. The [facility] at [facility], CLIA Accreditation #[id number] and CAP Accreditation #[id number], verif ied the performance characteristics of this assay. Int ernal controls are us ed to monitor all sta ges of the test proces s. [facility] LakeCOVID-19 (SARS-CoV-2)Ndostbfddfiu-[id number] 22:17:58 Test Item Value Reference Range Interpretation Comments COVID19 Not Detected Not Detected (SARS-CoV-2) (test code = 79410-1) COVID19 SARS Inpatient Indication (test Admission code = 40184) Covid 19 Comment See Note The elke S ARS-CoV-2 (test code = [place] [address]) use on the osito s Loren System [...] sheet for patie nts provided by the university controller ([employer]) can be rev iewed at: https://www.fda .gov/m edia/681775/claudia nload. A fact sheet fo Health Care pro viders is provided by the university controller ([employer]) and can be reviewed at: https://www.fda .gov/m edia/900592/claudia nload Results must be interpreted wit hin [...] high-comple xity tests. The [facility], CLIA Accreditation #[id number] and CAP Accreditation #[id number], verif ied the performance characteristics of this assay. Int ernal controls are us ed to monitor all sta ges of the test proces s. [facility] LakeMagnesium [id number] 21:53:21 Test Item Value Reference Range Interpretation Comments Magnesium (test code = 38353-5) 2.5 mg/dL 1.6-2.6 [facility] LakeMagnesium [id number] 21:53:21 Test Item Value Reference Range Interpretation Comments Magnesium (test code = 78181-9) 2.5 mg/dL 1.6-2.6 [facility] LakePhosphorus [id number] 21:53:19 Test Item Value Reference Range Interpretation Comments Phosphorus (test code = 2777-1) 3.3 mg/dL 2.5-4.5 [facility] LakePhosphorus [id number] 21:53:19 Test Item Value Reference Range Interpretation Comments Phosphorus (test code = 2777-1) 3.3 mg/dL 2.5-4.5 [facility] LakeCOVID-19 (SARS-CoV-2) PCR- Asymptomatic [id number] 07:00:56 Test Item Value Reference Range Interpretation Comments COVID19 (SARS Not Detected Not Detected CoV-2) Result (test code = ____[place] a 56976-4) qualitative reverse-transcr iptase polymerase sebastian n reaction (RT-PC R) developed for t he Arianna ELKE 680 0 system and inte [...] patients provid ed by the manufacture r ([employer]) c an be reviewed at:https://www. fda.go v/media/213577/ srikanth ad. A fact shee t for Health Care pro viders is provided by the university controller ([employer]) and can be reviewed at: https://www.fda .gov/m edia/553319/claudia nload Results must be interpreted wit hin [...] were verified by the [facility], CLIA Accreditation # : [id number] and CAP Accreditation # : [id number]. COVID19 SARS MUSIC WRITER Swab Source (test code = 13157) COVID19 SARS Pre-Out of OR Indication (test Procedure code = 02059) [facility] LakeCOVID-19 (SARS-CoV-2) PCR- Asymptomatic [id number] 07:00:56 Test Item Value Reference Range Interpretation Comments COVID19 (SARS Not Detected Not Detected CoV-2) Result (test code = ____[place] i s a 74915-2) qualitative reverse-transcr iptase polymerase sebastian n reaction (RT-PC R) developed for t he Arianna ELKE 680 0 system and inte [...] patients provid ed by the manufacture r ([employer]) c an be reviewed at:https://www. fda.go v/media/246010/ downlo ad. A fact shee t for Health Care pro viders is provided by the university controller ([employer]) and can be reviewed at: https://www.fda .gov/m edia/210387/claudia nload Results must be interpreted wit hin [...] were verified by the [facility], CLIA Accreditation # : [id number] and CAP Accreditation # : [id number]. COVID19 SARS MUSIC WRITER Swab Source (test code = 37000) COVID19 SARS Pre-Out of OR Indication (test Procedure code = 40720) [facility] LakePotassium [id number] 22:00:04 Test Item Value Reference Range Interpretation Comments Potassium Lvl 4.8 See_Comment [Automated (test code = message] The sy stem 2823-3) which generated this result transmitted reference range : 3.5 - 5.1 mEq/L . The reference r montse was not used to interpret this result as normal/abnormal . MARIAM (test code = After kayexalate MARIAM) [facility] LakePotassium [id number] 22:00:04 Test Item Value Reference Range Interpretation Comments Potassium Lvl 4.8 See_Comment [Automated (test code = message] The sy stem 2823-3) which generated this result transmitted reference range : 3.5 - 5.1 mEq/L . The reference r montse was not used to interpret this result as normal/abnormal . MARIAM (test code = After kayexalate MARIAM) [facility] LakeProtein/Creatinine Ratio Urine 2021-08-19 16:58:41 Test Item Value [...] 7805) Lab Interpretation Abnormal (test code = 04683-9) [facility] LakeProtein/Creatinine Ratio Urine 2021-08-19 16:58:41 Test Item Value [...] 7805) Lab Interpretation Abnormal (test code = 09508-1) [facility] LakeLipase [id number] 16:42:35 Test Item Value Reference Range Interpretation Comments Lipase Lvl (test code 39 U/L 13-60 Testin g Performed at [facility] = 3040-3) Lab Registered Medical Transcriptionist Bld[facility], [address] [place], [place] [address], [place] [address] [facility] LakeLipase [id number] 16:42:35 Test Item Value Reference Range Interpretation Comments Lipase Lvl (test code 39 U/L 13-60 Testin g Performed at [facility]B = 3040-3) Lab Registered Medical Transcriptionist [facility], [address], [place] [address] [facility] LakeAmylase [id number] 16:42:34 Test Item Value Reference Range Interpretation Comments Amylase Lvl (test code 100 U/L 28-100 Testi ng Performed at [facility] = 1798-8) Lab Registered Medical Transcriptionist [facility], [address], [place] [address] [facility] LakeAmylase [id number] 16:42:34 Test Item Value Reference Range Interpretation Comments Amylase Lvl (test code 100 U/L 28-100 Testi ng Performed at [facility]B = 1798-8) Lab Registered Medical Transcriptionist [facility], [facility], [place] [address] [facility] LakePO [id number] 14:04:03 Test Item Value Reference Range Interpretation Comments POC Crea (test 1.1 mg/dL 0.6-1.3 Medications, code = 78291-6) especially h ydroxyurea or supplements, such as [...] Normal eGF R >= 60 code = 35534-7) mL/min/1.73 m2 The eGFR is calcula fernandez [...] Normal eG FR >= 60 code = 75613-1) mL/min/1.73 m2 The eGFR is calcula fernandez using the CKD-E PI equation. The e GFR declines with a ge. eGFR <60 mL/min /1.73 m2 is considere d as "decreased" Thi s equation should only be used for pat ients 18 and older. According to th e National Kidney Foundation's Ki dney Disease Outcome Quality Initiat tadeo (KDOQI) classif ication and 2011 Kidney Disease Improvi ng Global Outcomes (KDIGO) [...] 2 (test code = 6672) Performing Lab [facility] (test code = [facility] [address]) Clinical Lab, [address] [place] [address], [place], [place] [address]; Pasta Maker: Jewell Bae MD [facility] LakeHemoglobin [id number] 17:03:24 Test Item Value Reference Range Interpretation Comments A1C (test code = 5.2 % 4.3-5.6 HbA1c value s >=6.5% are 4548-4) diagnostic of d iabetes mellitus.Diagno sis should be confirmed by repeat testing.Therape utic Action suggested: >8.0 % HbA1c; Goal oftherapy: <7.0% HbA1c [facility] LakeHemoglobin [id number] 17:03:24 Test Item Value Reference Range Interpretation Comments A1C (test code = 5.2 % 4.3-5.6 HbA1c value s >=6.5% are 4548-4) diagnostic of d iabetes mellitus.Diagno sis should be confirmed by repeat testing.Therape utic Action suggested: >8.0 % HbA1c; Goal oftherapy: <7.0% HbA1c [facility] LakeBlood [id number] 14:06:28 Test Item Value Reference Range Interpretation Comments Final Report (test No growth code = 8488) Path Review - Immunity and antibiotic Bottle/Isolator use may render culture (test code = 8499) negative. Ongoing infection requires repeat culture.The results have been reviewed and electronically signed by Pathologist:MOE DALTON MD #[id number] MARIAM (test code = Short draw may invalidate MARIAM) quantitative blood culture results.06/15/2021 11:53:08 AM CDT [facility] Vir[facility] + COVID-19, Nasopharyngeal [id number] 02:47:05 Test Item Value Reference Range Interpretation [...] Not Detected Not Detected (test code = 59224-8) Human Metapneumovirus Not Detected Not Detected (test code = 6401) Human Not Detected Not Detected Rhinovirus/Enterovirus (test code = 7212) Influenza A (test code Not Detected Not Detected = 5618) Influenza A H1 (test Not Detected Not Detected code = 5619) Influenza A H1 2008 Not Detected Not Detected (test code = [...] Detected Not Detected Parapertussis (test code = 30322) Bordetella pertussis Not Detected Not Detected (test [...] including SARS-CoV-2, from a single nasopharyngeal swab (GEODETIC SURVEY DIRECTOR) specimen obtained from individuals suspected of respiratory [...] that may not be detected by an GEODETIC SURVEY DIRECTOR specimen. Internal controls are used to monitor [...] and high-complexity tests. The [facility] at [facility], CLIA Accreditation #[id number] and CAP Accreditation #[id number], verified the performance characteristics of this assay. [facility] performs the assay using the [employer] System. [facility] LakePOC Chem 8 without Hemoglobin and [id number] 17:38:02 Test Item Value Reference Range Interpretation Comments POC NA (test code = 147 See_Comment H [Automa fernandez message] 13777-4) The system [employer] generated this result transmitted ref erence range: 138 - 14 6 mEq/L. The refe rence range was not u sed to interpret this result as normal/abnor mal. POC K (test code = 3.4 See_Comment L Method de scription: 07366-0) The i-STAT is a n analyzer used f or in vitro quantific ation of various anal ytes in whole blood. The device uses a s rodri disposable cart ridge which contains microfabricated sensors, a calibration zayra ution, fluidics system , and a waste chamber . Each test cartridge contains chemic ally sensitive biose nsors on a nChannel ip that are config ured to perform [...] H [Automa fernandez message] 2068-05) The system [employer] generated this result transmitted ref erence range: 98 - 109 mEq/L. The refe rence range was not u sed to interpret this result as normal/abnor mal. POC VTCO2 (test code 16 See_Comment L [Autom ated message] = 2026-03) The system [employer] generated this result transmitted ref erence range: 24 - 29 mEq/L. The reference r montse was not used to interpret this result as normal/abnor mal. POC Anion Gap (test 19 mmol/L 10-20 code = 77412) POC BUN (test code = 21 mg/dL 10-31 6299-2) POC Crea (test code 0.9 mg/dL 0.6-1.3 Medicati ons, = 21302-6) especially hydroxyurea or supplements, mojica ch as [...] which contains microfabricated sensors, a calibration zayra Uro Jock, fluidics system , and a waste chamber . Each test cartridge contains chemic ally sensitive biose nsors on a nChannel ip that are config ured to perform spec ific tests. The microfabricated sensors measure analyte concent ration by an electroch emical assay. POC eGFR-AA (test 98 See_Comment Normal eGF R >= 60 code = 15187-5) mL/min/1.73 m2 The eGFR is calcula fernandez [...] to severe decre ase in GFR 30-444 Maroin re decrease in GFR 15-295 Kidney f ailure <15 (or dialysi s) [Automated mess age] The system [employer] generated this result transmitted ref erence range: >=60 mL/min/1.73 m2. The reference range was not used to int erpret this result as normal/abnormal . POC eGFR-SANTOS (test 84 See_Comment Normal eG FR >= 60 code = 60129-1) mL/min/1.73 m2 The eGFR is calcula fernandez using the CKD-E PI equation. The e GFR declines with a ge. eGFR <60 mL/min /1.73 m2 is considere d as "decreased" Thi s equation should only be used for pat ients 18 and older. According to th e National Kidney Foundation's dney Disease Outcome [...] dialysi s) [Automated mess age] The system [employer] generated this result transmitted ref erence range: >=60 mL/min/1.73 m2. The reference range was not used to int erpret this result as normal/abnormal . POC Glucose (test 96 mg/dL 70-99 Medication s, code = 98073-7) especially hydroxyurea, ca n interfere with test results causing a falsely and significantly h igher result than exp ected. If a problem is suspected with a patient's resul t, a sample should b e sent to the laborato ry for confirmatory te sting. POC Ion Ca (test 0.94 mmol/L 1.12-1.32 L code = 09647-7) POC Sample Type Venous (test code = 6690) POC Clean Dev (test Yes code = 6672) Performing Lab (test MDA Main Main Ca mpus code = 41740) [facility] Cli nical Lab, [address], [place] [address]; Pasta Maker: Jewell Bae MD Lab Interpretation Abnormal (test code = 25716-9) [facility] 16:[facility]55 Test Item Value Reference Range Interpretation Comments CRP (test code = 75.95 mg/[place] [address]-2) CRP assay are a s follows: Reference range s when used to assess cardi ac risk: <1.00 mg/L Low cardiovascular risk 1.00-3.00 mg/L Average cardiovascular risk >3.00 mg/L High cardi ovascular risk.Reference ranges when used to assess inflammatory re sponses: Less than or eq ual to 10.00 mg/L. [facility] Lake[facility]calcitonin2022 16:07:14 Test Item Value Reference Range Interpretation Comments Procalcitonin (test 0.74 ng/mL <=0.08 H Procalci tonin > 2.00 code = 84362-0) ng/mL: Proca lcitonin levels above 2. 00 [...] extended diluti on as it exceeds the university controller's recommended [place] it. Caution should be exercised when interpreting mojica ch values and done in conjunction wit h clinical contex t. Lab Interpretation Abnormal (test code = 73780-3) [facility] Lake[facility] [id number] 15:27:02 Test Item Value Reference Range Interpretation Comments V Lactate (test code = 2519-7) 1.7 mmol/L 0.5-1.6 H Lab Interpretation (test code = Abnormal 01144-2) [facility] [id number] 17:39:52 Test Item Value Reference Range Interpretation Comments Sed Rate (test code = 90 See_Comment H [Auto mated message] 4537-7) The system [employer] generated this result transmitted ref erence range: 0 - 9 mm /hr. The reference r montse was not used to interpret this result as normal/abnor mal. Lab Interpretation (test Abnormal code = 21912-3) [facility] Lake[facility]H2022-04-01 16:50:07 Test Item Value Reference Range Interpretation Comments ACTH (test 8 pg/mL 7-63 Results greater than code = 2141-0) 1826 pg/mL ma y not be reliable due to matrix effect w ith extended diluti on as it exceeds the university controller's recommended ashford it. ACTH reference intervals are established for the morning hours f rom 7-10 am. Due to the circadian rhyth m of ACTH levels in plasma, the [facility] ple collection time must be noted. Cauti on should be exerc ised when interpreti ng such values and done in conjunction with clinical contex t. MARIAM (test code This lab cannot be = MARIAM) scheduled at the following locations due to collection/proccess ing restrictions:[place] [facility] CTRCABI - [facility] DIAG LAB CTR [facility] LakeCortisol, [id number] 16:07:12 Test Item Value Reference Range Interpretation Comments Cortisol (test code = 14.49 See_Comment Lesa ol reference 2143-6) intervals are e stablished [...] (2.5 - 11.9) Testing Perform ed at [facility] Transcription[facility] Bldg, [address], [address], [place] [address] [Automated mess age] The system which ge nerated this result tra nsmitted reference range : 4.80 - 19.50 mcg/dL. T he reference range was not used to interpr et this result as arleen l/abnormal. [facility] Cancer ClintonTISSUE [id number] 15:08:00 Surgical Pathology Report Case: [id number] Authorizing Provider: Reece Joseph MD Collected: 11/03/2019 09:23 PM Ordering Location: [facility] Received: 11/06/2019 08:18 AM SERVICES Pathologist: Mak Frost MD Specimen: Bladder Tumor, TRIGONE AND BLADDER NECK TUMOR URINARY BLADDER, TRIGONE AND NECK TUMOR, TURBT: - UROTHELIAL CARCINOMA, HIGH GRADE (WHO GRADE 3), INVASIVE INTOMUSCULARIS PROPRIA - POSITIVE FOR LYMPHOVASCULAR SPACE INVASION Signing Pathologist Direct Phone Line: [phone] signed by Mak Frost MD on 11/07/2019 at 3:08 PMUrothelial carcinoma in situ is also identified. One prostatic chip is noted with benign glands.15726Yfocq hematuria Bladder, trigone and neckA. Received in formalin in a container labeled with the patient's name,medical record number and "bladder tumor" is an aggrigate of multiple, baird-pink, irregular nodular tissues admixed with blood (4 x 4 x 1.5 cm) which are submitted in toto in A1-A 11.KEYA Durán,PA (ASCP)PerformedFL, FLUORO, NON-SPECIFIC, UP TO 1 [id number] 07:45:55Reason for exam:->cysto with stent placementFluoroscopic unit [...] S NOT APPLICABLE FOR DIALYSIS PATIEN TS. Figure Model ID - PIAYA LCBC (HEMOGRAM ONLY)2019-11-06 05:41:00 [...] (BEAKER) (test code = 413) BASIC METABOLIC [id number] 14:05:00 Test Item Value Reference Range Interpretation [...] S NOT APPLICABLE FOR DIALYSIS PATIEN TS. Figure Model ID - TONYA CCBC W/PLT COUNT & AUTO [id number] 13:48:00 Test Item Value Reference Range Interpretation [...] = 2801) CBC W/PLT COUNT & AUTO [id number] 07:39:00 Test Item Value Reference Range Interpretation [...] (BEAKER) (test code = 2801) BASIC METABOLIC [id number] 07:13:00 Test Item Value Reference Range Interpretation [...] S NOT APPLICABLE FOR DIALYSIS PATIEN TS. Figure Model ID - PIAYA LBASIC METABOLIC [id number] 05:42:00 Test Item Value Reference Range Interpretation [...] S NOT APPLICABLE FOR DIALYSIS PATIEN TS. Figure Model ID - JUAN MCBC W/PLT COUNT & AUTO [id number] 05:07:00 Test Item Value Reference Range Interpretation [...] PERCENT (BEAKER) (test code = 2801) CT, [id number] 01:57:00Unlisted Reason for Exam - Click Yes [...] and may be hemorrhagic. Signed: Lee Perez [facility] Verified Date/Time: 11/03/2019 01:57:16 -COV2/RT-PCR ([facility])2019-11-02 11:07:00 Test Item Value Reference Range Interpretation Comments SARS-COV2/RT-PCR (test Negative Not Detected, Negative, code = 2443699) See external report for linked test SARS-COV-2 PERFORMING LAB [facility] (test code = 0509345) Negative result for this test determines that [...] of the Act.Fact Sheet for Healthcare Prov iders:https://www.[employer]/sites/default/files/product/documents/Fact_Sheet_HC _Qjtjznlub_Zmkh_EQBF-GxW-0.pdfFact Sheet for Healthcare Patients:https://www.[employer].com/sites/default/files/product/docume nts/Ikio_Eymre_Ekncxxid_Ukwa_VXPO-SuG-9.pdfPerforming Laboratory:[facility], [place] [address]CBWAM METABOLIC PANEL 2019-11-02 07:34:00 Test Item Value [...] S NOT APPLICABLE FOR DIALYSIS PATIEN TS. Figure Model ID - NTPCBC W/PLT COUNT & AUTO [id number] 07:22:00 Test Item Value Reference Range Interpretation [...] (BEAKER) (test code = 2801) BASIC METABOLIC [id number] 00:07:00 Test Item Value Reference Range Interpretation [...] S NOT APPLICABLE FOR DIALYSIS PATIEN TS. Figure Model ID - SANTY WPROTHROMBIN [id number] 23:55:00 Test Item Value Reference Range Interpretation [...] mechanical heart valves.CBC W/PLT COUNT & AUTO [id number] 23:43:00 Test Item Value Reference Range Interpretation [...] % 0-1 PERCENT (BEAKER) (test code = 2806)
[2022-07-01] MEDS ORDERED: FAMOTIDINE 20 MG/2 ML VIAL IV ONE (00:08)
[2022-07-01] MEDS ORDERED: NA CHLORIDE 0.9% 1,000 ML ONE ×2 (00:08→08:04)
[2022-07-01] MEDS ORDERED: ONDANSETRON 4 MG/2 ML VIAL ONE (00:08)
[2022-07-01 01:53] LABS: Absolute Lymphocytes (CBC) 0.5 K/uL (0.7-4.9); Hematocrit 24.2 % (39.6-49.0); Lymphocytes % 5.4 % (15.3-44.8); MCV 84.8 fL (80-100); MPV 7.4 fL (7.6-11.3); RBC Red Blood Cell Count 2.85 M/uL (4.33-5.43)
[2022-07-01 02:17] LABS: Albumin 1.8 g/dL (3.4-5.0); Bilirubin Total 0.2 mg/dL (0.2-1.0); Potassium 4.5 mEq/L (3.5-5.1); Protein, Total 5.7 g/dL (6.4-8.2)
[2022-07-01 05:01] LABS: Specific Gravity 1.013 (1.005-1.030); Urine Bacteria <20 /HPF (<20); Urine Bilirubin NEGATIVE (Negative); Urine Blood Trace (Negative); Urine Clarity Turbid (Clear); Urine Color Yellow (Yellow); Urine Glucose NEGATIVE (Negative); Urine Mucus Slight /HPF (None Seen); Urine Protein 1+ (Negative); Urine Urobilinogen Normal (Normal); Urine WBC Clump Occasional /HPF (None Seen); Urine pH 6.5 (5.0-7.0)
--- NOTE | 2022-07-01 07:55 | RAD REPORT ---
EXAM DESCRIPTION: CT - Abdomen Pelvis W Contrast - 07/01/2022 2:49 am CLINICAL HISTORY: Abdominal pain COMPARISON: June 2021 and April 2022 TECHNIQUE: Computed axial tomography of the abdomen pelvis was obtained. Eighty-five cc Isovue-300 w as administered intravenously. Oral contrast was not requested which limits evaluation of bowel and a ppendix All CT scans are performed using dose optimization technique as appropriate and may include automated exposure control or mA/KV adjustment according to patient size. FINDINGS: The examination is being submitted to ne now for interpretation due technical issues with the [facility] service. Mild left lower lobe consolidation. Left percutaneous nephrostomy tube in place. No hydronephrosis. Splenic granulomata. The liver and right kidney are unremarkable. Small left adrenal mass is stable 10 x 5 x 5 centimeter mass right rectus muscle lower abdomen/upper pelvis. 5 centimeter mass lies lat eral to this within the lower pelvis. Several additional 1 centimeter adjacent masses. Bilateral inguinal lymphadenopathy A Lozada catheter within a decompressed bladder. Bladder wall is thickened. Diffuse edema subcutaneous tissues. No evidence diverticulitis. Sclerotic bony metastases again demonstrated. Moderate prostatic enlargement IMPRESSION: Left lower lobe pneumonia 10 centimeter mass right rectus muscle. This probably represents neoplasm. There are adjacent smaller masses. Bilateral inguinal lymphadenopathy likely metastases Sclerotic metastases Thickened bladder wall probably inflammation. Neoplasm other consideration.
--- NOTE | 2022-07-01 08:14 | ER ---
Nurse's Notes [facility] Natalee Name: Mary Bullock Age: 72 yrs Sex: Male : 1950 Arrival Date: 06/30/2022 Time: 22:51 Bed 5 Private MD: Diagnosis: Pneumonia, unspecified organism;Hypoxemia;UTI/ Urinary tract infection, site not specified;Altered mental status, unspecified Presentation: 06/30 23:13 Chief complaint: EMS states: toned out for non febrile male with N/V for the past two aa9 days. pt DX with bone cancer, recent chemo treatments have been discontinued, pt presented DNR order on scene, 4 mg of Zofran and 600 ml NS given en route. Coronavirus screen: Vaccine status: Patient reports receiving the 2nd dose of the covid vaccine. Ebola Screen: No symptoms or risks identified at this time. Initial Sepsis Screen: Does the patient meet any 2 criteria? Systolic BP < 90 mmHg. HR > 90 bpm. Yes Does the patient have a suspected source of infection? No. Patient's initial sepsis screen is negative. Risk Assessment: Do you want to hurt yourself or someone else? Patient reports no desire to harm self or others. Onset of symptoms was June 28, 2022. Care prior to arrival: Medication(s) given: Normal saline infusion, 500 mL, zofran 4 mg, IV initiated. 18 GA, in the right antecubital area. 23:13 Method Of Arrival: EMS: [facility] aa9 23:13 Acuity: FERNANDA 3 aa9 Triage Assessment: 23:16 General: Appears comfortable, ill, slender, Behavior is calm, cooperative. Pain: Denies aa9 pain. Neuro: Level of Consciousness is awake, alert, obeys commands, Oriented to person, place, time, situation. Cardiovascular: Rhythm is sinus tachycardia. Respiratory: Airway is patent Respiratory effort is even, unlabored. GI: Reports nausea, vomiting, Patient currently denies diarrhea. : Lozada in place to gravity drainage. Derm: Skin is intact, is fragile, is thin, Skin is dry, Skin is pale. Musculoskeletal: No signs and/or symptoms reported regarding the musculoskeletal system. Historical: - Allergies: 23:16 PENICILLINS; aa9 - PMHx: 23:16 Hypertension; neuropathy; overactive bladder; paraplegic; Polio; tremors; bone cx; aa9 - PSHx: 23:16 Nephrostomy tube left; right leg; Tonsillectomy; aa9 - Immunization history:: Client reports receiving the 2nd dose of the Covid vaccine. - Social history:: Smoking status: Patient denies any tobacco usage or history of. Screenin:18 Abuse screen: Denies threats or abuse. Denies injuries from another. Nutritional aa9 screening: Has had N/V for 3 or more days. 07/01 08:27 Tuberculosis screening: No symptoms or risk factors identified. db 12:27 [facility] ED Fall Risk Assessment (Adult) History of falling in the last 3 months, db including since admission No falls in past 3 months (0 pts) Confusion or Disorientation Yes (5 pts) Intoxicated or Sedated No (0 pts) Impaired Gait No (0 pts) Mobility Assist Device Used No (0 pt) Altered Elimination No (0 pt) Score/Fall Risk Level 3 or more points = High Risk Hourly rounding (assess needs \T\ fall precautionary measures) done. Assessment: 06/30 12:30 Reassessment: paged phlebotomy for lab work. aa9 07/01 00:18 Reassessment: Patient appears in no apparent distress at this time. Patient and/or aa9 family updated on plan of care and expected duration. Pain level reassessed. Patient is alert, oriented x 3, equal unlabored respirations, skin warm/dry/pink. 01:47 Reassessment: Patient appears in no apparent distress at this time. No changes from lg3 previously documented assessment. Patient and/or family updated on plan of care and expected duration. Pain level reassessed. Patient is alert, oriented x 3, equal unlabored respirations, skin warm/dry/pink. 02:49 Reassessment: Patient appears in no apparent distress at this time. pt supine in bed, aa9 eyes closed, breathing equal and regular. 06:23 Reassessment: Patient appears in no apparent distress at this time. pt supine in bed, aa9 eyes closed,, breathing equal and regular. 07:50 Reassessment: patient with snoring respirations and difficult to arouse initially. Pt db woke with a sternal rub. Pt appears slow to respond. Answers all questions. Patient O2 saturation dropped to 80's on 2L NC . Pt placed on 4L O2 and lights turned on. Pt answering all questions is AO x4, but is slow to respond and is staring into the light. Dr. Page notified. General: Appears in no apparent distress. comfortable, Behavior is calm, cooperative. Neuro: Level of Consciousness is awake, obeys commands, lethargic. Respiratory: Airway is patent Respiratory effort is even, unlabored, Respiratory pattern is regular, symmetrical. 07:54 Reassessment: Pt lethargic - sternal rub was performed in order to get patient alert. ld1 ERP at bedside. Pt AAO to self and place. Sepsis work up ordered at this time per ERP. Patient states symptoms have not improved. 08:18 Reassessment: RT is at bedside. db 08:27 Reassessment: Patient appears in no apparent distress at this time. Patient and/or db family updated on plan of care and expected duration. Pain level reassessed. Patient is alert, oriented x 3, equal unlabored respirations, skin warm/dry/pink. patient is more awake now. hospitalist and Dr. Page at patient bedside. Neuro: Level of Consciousness is awake, alert, obeys commands, lethargic, Oriented to person, place, time, situation. 08:30 Derm: Decubitus located on sacrum wound to sacral area. Patient has nurse come and db daughter helps change dressing. Noted large wound. 09:03 Reassessment: Patient appears in no apparent distress at this time. Patient and/or db family updated on plan of care and expected duration. Pain level reassessed. 10:30 Reassessment: patient O2 saturation dropped to 56% on NC 4L. Patient placed on non db rebreath and O2 increased to 80's. Dr. Page is at patient bedside. RT paged. Patients daughter reports feeding patient. Patient possibly aspirated some of the food. Patient coughed up some flem. Patient in NAD calm and relaxed. Asked patient to take some deep breaths. 10:41 Reassessment: Dr. Weber is speaking with patient's daughter. db 11:22 Reassessment: patient daughter spoke with hospice nurse and Dr. Weber notified to db contact hospice nurse. 11:40 Reassessment: Called [place] services for patient daughter. Patient is no longer db responding. Dr. Page spoke with patient Daughter. Patient appears comfortable. On non rebreather O2 sat 64%. 11:55 Reassessment: chaplan at patient bedside. db 12:28 Reassessment: EMS at bedside for patient transport. Patient discharged to family for home hospice. patient no longer responsive. Tachycardic. Vital Signs: 06/30 23:13 BP 101 / 63; Pulse 94; Resp 18; Temp 98.7; Pulse Ox 95% on R/A; Weight 54.43 kg (R); aa9 Height 5 ft. 9 in. (R); Pain 0/10; 07/01 00:48 BP 111 / 57; Pulse 95; Resp 16 S; Pulse Ox 96% on R/A; lg3 02:02 BP 104 / 57; Pulse 97; Resp 17; Pulse Ox 94% on R/A; aa9 06:20 BP 108 / 56; Pulse 97; Resp 18; Temp 98.2; Pulse Ox 96% on 2 lpm NC; aa9 07:15 BP 109 / 58; Pulse 99; Resp 16; Pulse Ox 92% on 2 lpm NC; db 07:38 BP 86 / 49; Pulse 99; rn 07:54 BP 100 / 63; Pulse 96; Resp 15; Pulse Ox 94% on 2 lpm NC; ld1 07:54 Temp 98.5(O); ld1 08:00 BP 92 / 56; Pulse 91; Resp 14; Pulse Ox 92% on 4 lpm NC; db 08:30 BP 113 / 67; Pulse 94; Resp 15; Pulse Ox 92% on 4 lpm NC; db 09:00 BP 90 / 57; Pulse 89; Resp 16; Pulse Ox 94% on 4 lpm NC; db 09:30 BP 90 / 54; Pulse 87; Resp 14; Pulse Ox 96% on 4 lpm NC; db 10:00 BP 81 / 53; Pulse 84; Resp 14; Pulse Ox 97% on 4 lpm NC; db 10:10 BP 87 / 58; Pulse 87; Resp 15; Pulse Ox 77% on Non-rebreather mask; db 10:30 BP 93 / 56; Pulse 87; Resp 14; Pulse Ox 87% on Non-rebreather mask; db 11:30 BP 114 / 62; Pulse 122; Resp 13; Pulse Ox 73% on Non-rebreather mask; db 11:45 BP 117 / 65; Pulse 122; Resp 8; Pulse Ox 59% on Non-rebreather mask; db 12:00 BP 124 / 61; Pulse 118; Resp 8; Pulse Ox 61% on hi dorothy; db 06/30 23:13 Body Mass Index 17.72 (54.43 kg, 175.26 cm) aa9 06/30 23:13 Pain Scale: Adult aa9 Vitals: 11:45 Cardiac Rhythm Assessment. Cardiac Rhythm Assessment Sinus tach. db ED Course: 06/30 22:45 Maintain EMS IV. Dressing intact. Good blood return noted. Site clean \T\ dry. Gauge \T\ kd 3 site: 18 g right A/C. 22:55 Patient arrived in ED. la1 23:13 Edwina Lomeli, RN is Primary Nurse. aa9 23:16 Triage completed. aa9 23:18 Arm band placed on. aa9 23:18 Patient has correct armband on for positive identification. Call light in reach. Side aa9 rails up X2. Client placed on continuous cardiac and pulse oximetry monitoring. NIBP monitoring applied. 23:20 Kevyn Wong MD is Attending Physician. kdr 07/01 01:38 CBC with Diff Sent. kd3 01:38 CMP Sent. kd3 01:38 Lipase Sent. kd3 01:39 Inserted saline lock: 20 gauge in left antecubital area, using aseptic technique. Blood kd3 collected. 02:51 CT Abd/Pelvis - IV Contrast Only In Process Unspecified. EDMS 03:09 Urinalysis w/ reflexes Sent. aa9 07:06 Attending Physician role handed off by Kevyn Wong MD rn 07:06 Sander Page MD is Attending Physician. rn 07:23 Primary Nurse role handed off by Edwina Lomeli, RN ll1 07:40 Jenna Diamond, RONN is Primary Nurse. db 08:05 Oxygen administration via nasal cannula \T\ 4L/min Response to oxygen therapy: symptoms db improved. 08:13 David Weber MD is Hospitalizing Provider. rn 08:50 XRAY Chest (1 view) In Process Unspecified. EDMS 12:27 No provider procedures requiring assistance completed. IV discontinued, intact, db bleeding controlled, No redness/swelling at site. Administered Medications: 00:17 Drug: NS 0.9% IV 1000 ml Route: IV; Rate: 1 bolus; Site: right antecubital; aa9 03:10 Follow up: Response: No adverse reaction; IV Status: Completed infusion; IV Intake: aa9 1000ml 00:17 Drug: Famotidine IVP 20 mg Route: IVP; Site: right antecubital; aa9 03:09 Follow up: Response: No adverse reaction aa9 00:17 Drug: Ondansetron IVP 4 mg Route: IVP; Site: right antecubital; aa9 03:10 Follow up: Response: No adverse reaction aa9 08:01 Drug: NS 0.9% IV 1000 ml Route: IV; Rate: 1000 ml; Site: right antecubital; ld1 09:15 Follow up: Response: No adverse reaction; IV Status: Completed infusion; IV Intake: db 1000ml 08:49 Drug: levofloxacin IVPB 750 mg Volume: 150 ml; Route: IVPB; Infused Over: 90 mins; db Site: left antecubital; 10:15 Follow up: Response: No adverse reaction; IV Status: Completed infusion; IV Intake: db 150ml Medication: 06:18 VIS not applicable for this client. aa9 Intake: 03:10 IV: 1000ml; Total: 1000ml. aa9 09:15 IV: 1000ml; Total: 2000ml. db 10:15 IV: 150ml; Total: 2150ml. db Output: 09:03 Urine: 350ml (Lozada); Total: 350ml. db Outcome: 08:14 Decision to Hospitalize by Provider. rn 12:08 Discharge ordered by MD. rn 12:25 Discharged to home with hospice db 12:25 critical 12:25 Discharge instructions given to family, Instructed on discharge instructions, follow up and referral plans. Prescriptions given X 1. 12:54 Patient left the ED. db Addendum: 07/03/2022 07:47 Addendum: Culture Results: Positive urine culture. No further action required. Bacteria e b sensitive to prescribed antibiotic. Signatures: Dispatcher [employer] EDMS Kevyn Wong MD MD kdr Nieto, Roman, MD MD rn Attema, Lee, APPLIED COMPUTER SCIENCE PROFESSOR-C APPLIED COMPUTER SCIENCE PROFESSOR-Cla1 Margo Daneglo Lacie, RN RN lg3 Yohana Vargas RN RN ll1 Feli Suero RN RN ld1 Cassie Dunn RN RN kd3 Edwina Lomeli, RN RN aa9 Jenna Diamond, RN RN db
--- NOTE | 2022-07-01 08:14 | EDPHYS ---
Physician Documentation [facility] Name: Mary Bullock Age: 72 yrs Sex: Male : 1950 Arrival Date: 06/30/2022 Time: 22:51 Bed 5 Private MD: ED Physician Sander Page HPI: 07/01 02:28 EMS was called to the patient's residence for nausea vomiting for the past couple days. kdr Particularly this evening he began to have bilious material, up. He generally is cachectic and ill-appearing. Patient is a cancer patient and has been receiving chemo for bone cancer. He has been on hospice but according to the patient and daughter he has disengaged from that at this time and wishes to be evaluated in managed accordingly. EMS given the patient Zofran prior to arrival and normal saline. Patient otherwise appears appropriate and is interacting appropriately with me and staff.. Onset: The symptoms/episode began/occurred gradually, 2 day(s) ago. Severity of symptoms: At their worst the symptoms were mild. The patient has not experienced similar symptoms in the past. The patient has not recently seen a physician. Historical: - Allergies: 06/30 23:16 PENICILLINS; aa9 - PMHx: 23:16 Hypertension; neuropathy; overactive bladder; paraplegic; Polio; tremors; bone cx; aa9 - PSHx: 23:16 Nephrostomy tube left; right leg; Tonsillectomy; aa9 - Immunization history:: Client reports receiving the 2nd dose of the Covid vaccine. - Social history:: Smoking status: Patient denies any tobacco usage or history of. ROS: 07/01 02:28 Constitutional: Negative for fever, chills, and weight loss, patient appears generally kdr weak Eyes: Negative for injury, pain, redness, and discharge, Neck: Negative for injury, pain, and swelling, Cardiovascular: Negative for chest pain, palpitations, and edema, Respiratory: Negative for shortness of breath, cough, wheezing, and pleuritic chest pain. Abdomen/GI: Positive for nausea and vomiting, constipation, Patient states he has had no bowel movement in about 5 days. States that he normally has BMs at least some stool every day or so., Negative for Exam: 02:28 Constitutional: This is a well developed, well nourished patient who is awake, alert, kdr and in no acute distress. Patient appears weak and cachectic Head/Face: Normocephalic, atraumatic. 02:28 Abdomen/GI: Inspection: abdomen appears normal, Bowel sounds: active, Palpation: soft, mild abdominal tenderness, in all quadrants. Vital Signs: 06/30 23:13 BP 101 / 63; Pulse 94; Resp 18; Temp 98.7; Pulse Ox 95% on R/A; Weight 54.43 kg (R); aa9 Height 5 ft. 9 in. (R); Pain 0/10; 07/01 00:48 BP 111 / 57; Pulse 95; Resp 16 S; Pulse Ox 96% on R/A; lg3 02:02 BP 104 / 57; Pulse 97; Resp 17; Pulse Ox 94% on R/A; aa9 06:20 BP 108 / 56; Pulse 97; Resp 18; Temp 98.2; Pulse Ox 96% on 2 lpm NC; aa9 07:15 BP 109 / 58; Pulse 99; Resp 16; Pulse Ox 92% on 2 lpm NC; db 07:38 BP 86 / 49; Pulse 99; rn 07:54 BP 100 / 63; Pulse 96; Resp 15; Pulse Ox 94% on 2 lpm NC; ld1 07:54 Temp 98.5(O); ld1 08:00 BP 92 / 56; Pulse 91; Resp 14; Pulse Ox 92% on 4 lpm NC; db 08:30 BP 113 / 67; Pulse 94; Resp 15; Pulse Ox 92% on 4 lpm NC; db 09:00 BP 90 / 57; Pulse 89; Resp 16; Pulse Ox 94% on 4 lpm NC; db 09:30 BP 90 / 54; Pulse 87; Resp 14; Pulse Ox 96% on 4 lpm NC; db 10:00 BP 81 / 53; Pulse 84; Resp 14; Pulse Ox 97% on 4 lpm NC; db 10:10 BP 87 / 58; Pulse 87; Resp 15; Pulse Ox 77% on Non-rebreather mask; db 10:30 BP 93 / 56; Pulse 87; Resp 14; Pulse Ox 87% on Non-rebreather mask; db 11:30 BP 114 / 62; Pulse 122; Resp 13; Pulse Ox 73% on Non-rebreather mask; db 11:45 BP 117 / 65; Pulse 122; Resp 8; Pulse Ox 59% on Non-rebreather mask; db 12:00 BP 124 / 61; Pulse 118; Resp 8; Pulse Ox 61% on hi dorothy; db 06/30 23:13 Body Mass Index 17.72 (54.43 kg, 175.26 cm) aa9 06/30 23:13 Pain Scale: Adult aa9 MDM: 02:28 Data reviewed: vital signs, nurses notes. kdr 05:18 ED course: We continue to wait for the reading by radiology of the studies ordered kdr patient remained stable in the ED. 07:06 Patient medically screened. rn 08:10 Differential Diagnosis altered mental status, sepsis, Pneumonia, UTI. 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 Escalation of care including admission/observation considered. Management of patient was discussed with the following: Hospitalist: . Independent interpretation of the following test(s) in the Emergency Department EKG: See my EKG interpretation above X-Ray: My interpretation is CXR images with LLL pneumonia/effusion per my interpretation. Care significantly affected by the following chronic conditions: Hypertension, metastatic cancer. Counseling: I had a detailed discussion with the patient and/or guardian regarding: the historical points, exam findings, and any diagnostic results supporting the discharge/admit diagnosis, lab results, radiology results, the need for further work-up and treatment in the hospital. ED course: Pt signed out to me by Dr. Wong, pending CT abdomen results 2/2 ct technical difficulties at night. Pt more somnolent than when presented and report given, sepsis testing added to existing orders, clinically possible pneumonia and has indwelling catheter with possible UTI. Spoke with daughter, confirms DNR, and on hospice, would like him admitted for these new problems, does not want to be transferred. . 08:40 ED course: CO2 looks ok on ABG, glucose ok, more alert on exam and talking.. rn 10:35 ED course: Pt became more hypoxic, states feels fine but oxygen in 60s with good rn waveform. Per nurse, daughter was just feeding him, unknown if aspirated. RT called to bedside, placed on bipap. . 11:20 ED course: Dr. Weber evaluated patient for admission, had a discussion with daughter rn and their decision was to dc home to hospice, he is getting forensic social worker involved for planning.. 12:06 ED course: Spoke with Dr. Weber, states everything setup to go home on hospice, spoke rn with daughter and her goal is to get him home to at home. Contacting EMS for transport home. . 06/30 23:53 Order name: CBC with Diff; Complete Time: 02:25 [facility] 06/30 23:53 Order name: CMP; Complete Time: 02:25 [facility] 06/30 23:53 Order name: Lipase; Complete Time: 02:25 [facility] 07/01 01:16 Order name: Urinalysis w/ reflexes; Complete Time: 06:59 [facility] 07/01 05:04 Order name: Urine Culture EDMS 07/01 07:40 Order name: Blood Culture Adult (2) rn 07/01 07:40 Order name: Lactate w/ 2H reflex if indic.; Complete Time: 09:11 07/01 07:40 Order name: Protime (+inr); Complete Time: 09:11 07/01 07:40 Order name: Ptt, Activated; Complete Time: 09:11 07/01 07:51 Order name: ABG rn 07/01 08:24 Order name: Glucose, Ancillary Testing; Complete Time: 09:11 [facility]IA 07/01 11:41 Order name: Urinalysis w/ reflexes EDIA 06/30 23:53 Order name: CT Abd/Pelvis - IV Contrast Only; Complete Time: 08:05 [facility] 07/01 07:40 Order name: XRAY Chest (1 view); Complete Time: 09:11 07/01 10:37 Order name: XRAY Chest (1 view) 07/01 10:37 Order name: BIPAP rn 07/01 07:40 Order name: EKG; Complete Time: 07:40 rn 06/30 23:53 Order name: IV Saline Lock; Complete Time: 00:00 [facility] 06/30 23:53 Order name: Labs collected and sent; Complete Time: 01:38 [facility] 07/01 07:40 Order name: Accucheck; Complete Time: 08:14 rn 07/01 07:40 Order name: Cardiac monitoring; Complete Time: 07:51 rn 07/01 07:40 Order name: EKG - Nurse/Tech; Complete Time: 07:51 rn 07/01 07:40 Order name: IV Saline Lock - Large Bore; Complete Time: 07:51 rn 07/01 07:40 Order name: O2 Per Protocol; Complete Time: 07:51 rn 07/01 07:40 Order name: O2 Sat Monitoring; Complete Time: 07:51 rn 07/01 07:40 Order name: Vital Signs; Complete Time: 07:51 rn 07/01 07:54 Order name: Glucose Level; Complete Time: 08:13 rn Administered Medications: 00:17 Drug: NS 0.9% IV 1000 ml Route: IV; Rate: 1 bolus; Site: right antecubital; aa9 03:10 Follow up: Response: No adverse reaction; IV Status: Completed infusion; IV Intake: aa9 1000ml 00:17 Drug: Famotidine IVP 20 mg Route: IVP; Site: right antecubital; aa9 03:09 Follow up: Response: No adverse reaction aa9 00:17 Drug: Ondansetron IVP 4 mg Route: IVP; Site: right antecubital; aa9 03:10 Follow up: Response: No adverse reaction aa9 08:01 Drug: NS 0.9% IV 1000 ml Route: IV; Rate: 1000 ml; Site: right antecubital; ld1 09:15 Follow up: Response: No adverse reaction; IV Status: Completed infusion; IV Intake: db 1000ml 08:49 Drug: levofloxacin IVPB 750 mg Volume: 150 ml; Route: IVPB; Infused Over: 90 mins; db Site: left antecubital; 10:15 Follow up: Response: No adverse reaction; IV Status: Completed infusion; IV Intake: db 150ml Disposition Summary: 07/01/22 12:08 Discharge Ordered Location: Home(07/01/22 12:08) rn Problem: new(07/01/22 12:08) rn Symptoms: have worsened(07/01/22 12:08) rn Condition: Critical(07/01/22 12:08) rn Diagnosis - Pneumonia, unspecified organism(07/01/22 12:08) rn - Hypoxemia rn - UTI/ Urinary tract infection, site not specified(07/01/22 12:08) rn - Altered mental status, unspecified(07/01/22 12:08) rn Followup: rn - With: Private Physician - When: As needed - Reason: Recheck today's complaints, Re-evaluation by your physician Discharge Instructions: - Discharge Summary Sheet rn - Community-Acquired Pneumonia, Adult rn - Urinary Tract Infection, Adult rn Forms: - Medication Reconciliation Form rn - Thank You Letter rn - Antibiotic 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 Total rn time: 40 minutes Signatures: Dispatcher [employer] EDKevyn Gomez MD MD kdr Nieto, Roman, MD MD rn Feli Suero, RN RN ld1 Edwina Lomeli, RN RN aa9 Jenna Diamond, RN RN db Corrections: (The following items were deleted from the chart) 12:08 08:14 Inpatient Admission rn rn 12: 08:14 David Weber rn rn 12:08 08:14 Telemetry/MedSurg (Inpatient) rn rn 12: 08:14 Fair rn rn 12:08 08:14 new rn rn 12: 08:14 have worsened rn rn 12:08 08:14 Standard rn rn 12:08 08:14 rn rn 12:08 08:14 Altered mental status, unspecified rn rn 12:08 08:14 Pneumonia, unspecified organism rn rn 12:08 08:14 UTI/ Urinary tract infection, site not specified rn rn
[2022-07-01 08:22] LABS: Arterial Blood Carboxyhemoglob 1.5 % (0-1.5); Blood Gas Oxyhemoglobin 86.1 % (94-97); Blood O2 Saturation 88.6 % (92-98.5)
[2022-07-01 08:34] LABS: Protime INR 1.31
[2022-07-01] MEDS ORDERED: Levofloxacin 750mg IV 750 MG/150 ML BAG IV ONE (08:47)
--- NOTE | 2022-07-01 09:04 | RAD REPORT ---
EXAM DESCRIPTION: Zuri Single View07/01/2022 8:48 am CLINICAL HISTORY: Sepsis COMPARISON: April 2022 FINDINGS: Overall no significant change in the [id number] prominently left lower lobe infiltra te or likely pneumonia Mild right basilar lung opacity is unchanged Upper lobes appear clear Heart is normal size
[2022-07-01] MEDS ORDERED: ACETAMINOPHEN 325 MG TABLET PO PRN (10:21)
[2022-07-01] MEDS ORDERED: TRAMADOL HCL 50 MG TAB PO PRN (10:21)
[2022-07-01] MEDS ORDERED: ONDANSETRON 4 MG/2 ML VIAL IV PRN (10:27)
--- NOTE | 2022-07-01 10:40 | P.HP ---
Patient History Date of Service: 07/01/22 Allergies Penicillins Adverse Reaction (Verified 05/12/22 16:41) Anaphylaxis - Past Medical/Surgical History Diabetic: No - Social History Alcohol use: No Physical Examination - Studies Laboratory Data (last 24 hrs) 07/01/22 08:05: PT 14.4 H, INR 1.31, APTT 33.4 07/01/22 01:36: Sodium 136, Potassium 4.5, BUN 45 H, Creatinine 1.23, Glucose 102, Total Bilirubin 0.2, AST 13 L, ALT 12 L, Alkaline Phosphatase 100, Lipase 10 L 07/01/22 01:36: WBC 9.70, Hgb 7.7 L, Hct 24.2 L, Plt Count 333 Assessment and Plan - Advance Directives Does patient have a Living Will: No Does patient have a Durable POA for Healthcare: No
[2022-07-01] MEDS ORDERED: AZITHROMYCIN IV 500 MG in NA CHLORIDE 0.9% 250 ML IVPB SCH (11:00)
[2022-07-01] MEDS ORDERED: CEFTAZIDIME 2 GM in NA CHLORIDE 0.9% 100 ML IV SCH (11:00)
--- NOTE | 2022-07-01 11:24 | P.CNS ---
Date of Consult: 07/01/22 Reason for Consult: Medical management Requesting Physician: Sander Page Chief Complaint: Abdominal pain, shortness of breath and cough History of Present Illness: Patient is a 22-year-old patient is a 72-year-old male with a past medical history significant for hypertension, neuropathy, polio, tremors, metastatic bladder cancer on hospice who presents with complaint of left lower quadrant pain, nausea and vomiting has been ongoing for the past 2 days. Patient reported associated signs and symptoms of cough, shortness of breath, poor p.o. intake and generalized malaise. Patient noted with an unstageable pressure ulcer. Patient denies any other signs and symptoms. Symptoms are aggravated or relieved by nothing. Patient and her daughter decided to revoke hospice and present to the hospital for medical evaluation. Imaging in the ER indicated findings concerning for pneumonia. S hospitalists team was consulted for medical managemnet t - Past Medical/Surgical History Diabetic: No - Social History Alcohol use: No <Debora Bravo - Last Filed: 07/01/22 11:42> <David Weber - Last Filed: 07/01/22 13:44> Allergies Penicillins Adverse Reaction (Verified 05/12/22 16:41) Anaphylaxis Review of Systems General: Weakness, Malaise, Other (Fatigue, poor PO intake ) Eyes: Unremarkable ENT: Unremarkable Respiratory: Cough, Shortness of Breath Cardiovascular: Unremarkable Gastrointestinal: Abdominal Pain Genitourinary: Retention Musculoskeletal: Unremarkable Integumentary: Other (Pressure Ulcer) Neurological: Weakness Lymphatics: Unremarkable <Debora Bravo - Last Filed: 07/01/22 11:42> Physical Examination General: Alert, In no apparent distress, Oriented x3 HEENT: Atraumatic, PERRLA, Mucous membr. moist/pink, EOMI, Sclerae nonicteric Neck: Supple, 2+ carotid pulse no bruit, No LAD, Without JVD or thyroid abnormality Respiratory: Diminished, Inspiratory wheezes Cardiovascular: No edema, Regular rate/rhythm, Normal S1 S2 Capillary refill: <2 Seconds Gastrointestinal: Normal bowel sounds, No tenderness, Distended Musculoskeletal: Clubbing Integumentary: Pressure ulcer Neurological: Normal speech, Normal tone, Normal affect, Abnormal gait, Abnormal strength Lymphatics: No axilla or inguinal lymphadenopathy Laboratory Data (last 24 hrs) 07/01/22 08:05: PT 14.4 H, INR 1.31, APTT 33.4 07/01/22 01:36: Sodium 136, Potassium 4.5, BUN 45 H, Creatinine 1.23, Glucose 102, Total Bilirubin 0.2, AST 13 L, ALT 12 L, Alkaline Phosphatase 100, Lipase 10 L 07/01/22 01:36: WBC 9.70, Hgb 7.7 L, Hct 24.2 L, Plt Count 333 <Debora Bravo - Last Filed: 07/01/22 11:42> Temp Pulse Resp BP Pulse Ox 98.7 F 97 H 17 104/57 L 07/01/22 13:10 07/01/22 13:11 07/01/22 13:11 07/01/22 13:11 Laboratory Data (last 24 hrs) 07/01/22 08:05: PT 14.4 H, INR 1.31, APTT 33.4 07/01/22 01:36: Sodium 136, Potassium 4.5, BUN 45 H, Creatinine 1.23, Glucose 102, Total Bilirubin 0.2, AST 13 L, ALT 12 L, Alkaline Phosphatase 100, Lipase 10 L 07/01/22 01:36: WBC 9.70, Hgb 7.7 L, Hct 24.2 L, Plt Count 333 <David Weber - Last Filed: 07/01/22 13:44> Conclusions/Impression: Plan Atending Dr.. Weber spoke with patient and family and they agreed to be discharged from the ER to [facility] . Patient and daughter instructed to follow-up with hospice MD in 3 days. Physician Review: Patient Assessed, Agree with Above Assessment and Plan Critical Care: No <Debora Bravo - Last Filed: 07/01/22 11:42> Physician Review: Patient Assessed, Agree with Above Assessment and Plan Physician Review Additional Text: I was asked by Dr. Page to admit Mr. Bullock. I arrived at bedside to begin admission process. He appeared to be quite ill with pneumonia, hypoxia, a urinary tract infection, and septic shock. He has been enrolled in hospice, and to my understanding, would not want any aggressive interventions. His daughter, Ms. Mcelroy was at bedside. I spoke with her and her sister (Ms. Brink) via phone. They stated that he became very nauseous at home and was vomiting. She brought him in to the hospital treat these symptoms. She stated that he would never want to pursue any aggressive interventions. I explained that he is critically ill and would require an ICU admission if they choose to proceed with the admission process. His daughters stated that his wish was to pass away peacefully at home with his family. His daughters have declined any aggressive intervention and request to be discharged back home to hospice. They are aware that he is critcially ill and has a high probability of . At their request, I spoke with his hospice nurse (Ms. Mckeon) at [facility]. She stated that she will assist in re-enrolling him in hospice. At his family's request, he was discharged home from the Emergency Department on Home [facility]. I advised that if they change their minds and would like admission and/or aggressive intervention, please let us know and we would be happy to help. David Weber M.D. <David Weber - Last Filed: 07/01/22 13:44>
[2022-07-01 11:36] LABS: Specific Gravity 1.026 (1.005-1.030); Urine Bacteria None Seen /HPF (<20); Urine Bilirubin NEGATIVE (Negative); Urine Blood 2+ (Negative); Urine Clarity Extremely Turbid (Clear); Urine Color Yellow (Yellow); Urine Crystals Unidentified Few /HPF (None Seen); Urine Glucose NEGATIVE (Negative); Urine Protein 2+ (Negative); Urine RBC 21-50 /HPF (None Seen); Urine Urobilinogen Normal (Normal); Urine WBC Clump Many /HPF (None Seen); Urine pH 6.5 (5.0-7.0)
[2022-07-01 13:20] VITALS: TEMP 98.5
[2022-07-01 13:38] VITALS: BP 124/61; O2SAT 61
[2022-07-01] MEDS ORDERED: IPRATROPIUM BROM 0.5MG/2.5ML NEB SCH (14:00)
[2022-07-01] MEDS ORDERED: ALBUTEROL 2.5 MG/3 ML NEB SOL NEB SCH (14:00)
[2022-07-02] MEDS ORDERED: CEFTRIAXONE 1,000 MG in NA CHLORIDE 0.9% 50 ML IVPB SCH (09:00)
[2022-07-02] MEDS ORDERED: ENOXAPARIN 40 MG/0.4 ML SQ SCH (09:00)
--- NOTE | 2022-07-03 07:06 | EKG ---
Test Date: 2022-07-01 Test Time: 07:52:33 Specialist Employee [employer]: [employer] MEASUREMENT RESULTS: Intervals: Rate: 96 CT: 148 QRSD: 88 QT: 428 QTc: 540 [place]: P: 62 CT: 148 QRS: 36 T: 16 INTERPRETIVE STATEMENTS: Normal sinus rhythm Low voltage QRS T wave abnormality, consider anterior ischemia Prolonged QT Abnormal ECG Compared to ECG 05/01/2022 15:49:42 T-wave abnormality now present Possible ischemia now present Prolonged QT interval now present Sinus tachycardia no longer present Myocardial infarct finding no longer present Electronically Signed On 07-03-22 07:00:35 CDT by John Rodríguez
== END 2022-07-01 12:54 | disposition home or self-care (01) ==
LOC: ER 22:51 → ERHOLD 07-01 10:16 → UNDOADMIN 07-01 10:16
DX: J18.9 Pneumonia, unspecified organism (principal); R09.02 Hypoxemia; N39.0 Urinary tract infection, site not specified; R41.82 Altered mental status, unspecified; C41.9 Malignant neoplasm of bone and articular cartilage, unspecified; Z88.0 Allergy status to penicillin
CPT/HCPCS: 87040 ×2; 87088; 85025; 81001 ×2; 87086; 36415; 85610; 82947; 83605; 85730; 83690; 80053; 74177; 71045; 82805; Q9967; J2405; J0713; J7030 ×2; 87077; 87186; 93005; 96361; 96365; 96375; 99285